=== PATIENT | female | born 1955 | race Hispanic/Latino ===

== ENCOUNTER 2016-08-08 08:11 | Day surgery (SDC) | payer MEDICAID ==
[2016-08-06 10:34] VITALS: BMI 22.6
[2016-08-08 08:48] LABS: BLOOD UREA NITROGEN 16 mg/dL (7-21); CARBON DIOXIDE 27 mmol/L (21-33); CHLORIDE 100 mmol/L (95-110); GFR AFRICAN-AMERICAN > 60; GLUCOSE,RANDOM 100 mg/dL (70-110); POTASSIUM 3.8 mmol/L (3.6-5.0); SODIUM 138 mmol/L (132-148)
[2016-08-08 08:51] LABS: INR 1.06 (0.93-1.08); PARTIAL THROMBOPLASTIN TIME 27.3 Seconds (23.7-30.8)
--- NOTE | 2016-08-08 08:57 | CP.SDSHP ---
Same Day Surgery H & P - History Proposed Procedure: ct guided Bx of abdominal lymph node. Pre-Op Diagnosis: inflamed lymph node/hx of colonca s/p rescetion. - Previous Medical/Surgical History Misc: Anemia Previous Surgical History: colon resection. - Allergies Allergies: Allergies epinephrine Allergy (Intermediate, Verified 08/06/16 10:34) PALPITATIONS PALPITATIONS caffeine Allergy (Verified 08/06/16 10:34) PALPITATIONS IV CONTRAST Allergy (Severe, Uncoded 08/06/16 10:34) SHORTNESS OF BREATH PALPITATIONS CAF Allergy (Intermediate, Uncoded 08/06/16 10:34) PALPITATIONS - Physical Exam General Appearance: WNL. Mental Status: Alert & Oriented x3 Neuro: WNL Heart: WNL Lungs: WNL GI: WNL - Impression Impression: SUSPICIOUS ABDOMINAL LYMPH NODE /hx of colon ca s/p resection. - Date & Time Date: 08/08/16 Time: 08:57 Short Stay Discharge - Short Stay Discharge Admitting Diagnosis/Reason for Visit: CO CA C18.6/R59.0 Disposition: HOME/ ROUTINE
[2016-08-08 09:13] LABS: BASO # 0.05 K/mm3 (0.0-2.0); EOS # 0.1 (0.0-0.7); EOS % 2.7 % (1.5-5.0); GRAN # 3.08 (1.4-6.5); GRAN % 58.7 % (50.0-68.0); LYMPH # 1.6 (1.2-3.4); LYMPH % 30.2 % (22.0-35.0); MEAN CELL VOLUME 86.3 fL (80.0-105.0); MEAN CORPUSCULAR HEMOGLOBIN 30.3 pg (25.0-35.0); MEAN CORPUSCULAR HGB CONC 35.1 g/dl (31.0-37.0); MEAN PLATELET VOLUME 10.6 fl (7.0-11.0); MONO # 0.4 (0.1-0.6); MONO % 7.4 % (1.0-6.0); PLATELET COUNT 173 10^3/uL (120.0-450.0); RED CELL DISTRIBUTION WIDTH 16.7 % (11.5-14.5); WHITE BLOOD COUNT 5.2 10^3/ul (4.5-11.0)
[2016-08-08 09:15] LABS: ADD MANUAL DIFF? NO; HEMATOCRIT 40.2 % (36.0-48.0)
[2016-08-08] MEDS ORDERED: Midazolam 2 MG/2 ML VIAL ONE ×2 (09:47→10:30)
[2016-08-08] MEDS ORDERED: Sodium Chloride 0.45% 1,000 ML IV SCH (10:45)
[2016-08-08] MEDS ORDERED: Oxycodone/Acetaminophen 5/325 mg Tab PO PRN (10:45)
--- NOTE | 2016-08-08 14:03 | CT ---
PROCEDURE: CT guided left retroperitoneal lymph node biopsy. HISTORY: Colon carcinoma. Enlarged retroperitoneal lymph nodes. Evaluate for metastatic disease. PHYSICIAN(S): Shabbir Hackett MD. TECHNIQUE: The relative risks and indications of the procedure were explained to the patient and consent obtained. The patient was placed prone on the CT scanner and preliminary images through the mid abdomen obtained. Conscious sedation and monitoring were provided throughout the procedure by a nurse. There is a 2.7 cm enlarged left retroperitoneal lymph node just below the renal vein. A left posterior oblique approach was selected and the area prepped and draped in the usual sterile fashion. 1% Xylocaine was used to anesthetize the skin and soft tissues. A 17-gauge guiding needle was advanced into the 2.7 cm left retroperitoneal lymph node. Its position was confirmed with CT. Using coaxial technique, multiple core biopsies were obtained. The postprocedure images show no evidence of significant hemorrhage. IMPRESSION: 1. CT-guided left retroperitoneal lymph node biopsy as described above.
[2016-08-08 16:16] VITALS: RESP 18; O2SAT 98
[2016-08-08 16:21] VITALS: BP 130/73; PULSE 80; TEMP 98
== END 2016-08-08 14:00 | disposition home or self-care (01) ==
LOC: SDS 08:11
PROVIDERS: ATTEND Radiology Vascular & Interventional Radiology
DX: C77.2 Secondary and unspecified malignant neoplasm of intra-abdominal lymph nodes (principal); D64.9 Anemia, unspecified; Z90.49 Acquired absence of other specified parts of digestive tract; Z91.041 Radiographic dye allergy status; Z88.8 Allergy status to other drugs, medicaments and biological substances; Z91.018 Allergy to other foods; Z85.038 Personal history of other malignant neoplasm of large intestine
CPT/HCPCS: 36415; 49180; 77012; 80048; 85025; 85610; 85730; 88305; J2250; J2405; J3010; J7030

== ENCOUNTER 2016-09-14 12:53 | Inpatient (IN) | payer MEDICAID ==
[2016-09-14 13:03] VITALS: BMI 23.1
[2016-09-14] MEDS ORDERED: Iohexol 240 (50 ml) ONE (13:42)
--- NOTE | 2016-09-14 13:46 | ED PDOC ---
Arrival/HPI - General Chief Complaint: GI Problem Time Seen by Provider: 09/14/16 13:38 Historian: Patient - History of Present Illness Narrative History of Present Illness (Text): 09/14/16 13:44 Patient is a 61 year old female whose past medical history includes IBS and colon CA s/p colectomy with recent PET scan that shows retroperitoneal lymphadenopathy "suggestive of new metastasis" who presents to the emergency department with intermittent bilateral buttock pain for the past few weeks and constipation. She reports that she was scheduled for port placement for chemotherapy this week but has delayed it secondary to getting a second opinion at [facility]. She states pain radiates down the lower extremities. She reports that her PMD has given her muscle relaxants as he believes it is related to sciatica. She denies weakness, numbness or tingling. Denies trauma. She reports that she is concerned her constipation is related to her colon cancer. She reports that she had a small bowel movement this morning but is concerned due to the size and her hx. 09/14/16 14:16 Time/Duration: > week Symptom Onset: Gradual Symptom Course: Intermittent Modifying Factors (Text): None Associated Symptoms (Text): None Past Medical History - Provider Review Nursing Documentation Reviewed: Yes - Past History Past History: No Previous - Infectious Disease Hx of Infectious Diseases: None - Tetanus Immunization Tetanus Immunization: Unknown - Reproductive Menopause: Yes - Cardiac Hx Pacemaker: No - Pulmonary Hx Respiratory Disorders: No - Neurological Hx Paralysis: No - HEENT Hx HEENT Disorder: No - Renal Hx Renal Disorder: No - Endocrine/Metabolic Hx Endocrine Disorders: No - Hematological/Oncological Hx Blood Transfusions: No Hx Blood Transfusion Reaction: No - Integumentary Other/Comment: Cellutitis - Musculoskeletal/Rheumatological Hx Musculoskeletal Disorders: No - Gastrointestinal Other/Comment: Gastrointestinal Hemorrhage, colon ca + biopsy for retroperitoneal lymph node - Genitourinary/Gynecological Hx Genitourinary Disorders: No - Psychiatric Hx Emotional Abuse: No Hx Physical Abuse: No Hx Substance Use: No - Past Surgical History Past Surgical History: No Previous - Surgical History Other/Comment: lesion remove from chest wall - Anesthesia Hx Anesthesia Reactions: No Hx Malignant Hyperthermia: No - Suicidal Assessment Feels Threatened In Home Enviroment: No Family/Social History - Physician Review Nursing Documentation Reviewed: Yes Family/Social History: Unknown Family HX Smoking Status: Never Smoked Hx Alcohol Use: No Hx Substance Use: No Hx Substance Use Treatment: No Allergies/Home Meds Allergies/Adverse Reactions: Allergies epinephrine Allergy (Intermediate, Verified 08/06/16 10:34) PALPITATIONS PALPITATIONS caffeine Allergy (Verified 08/06/16 10:34) PALPITATIONS IV CONTRAST Allergy (Severe, Uncoded 08/06/16 10:34) SHORTNESS OF BREATH PALPITATIONS CAF Allergy (Intermediate, Uncoded 08/06/16 10:34) PALPITATIONS Home Medications: Home Meds Medication Instructions Recorded Confirmed Famotidine [Pepcid] 20 mg PO DAILY PRN 08/06/16 09/14/16 Naproxen Sodium [Aleve] 220 mg PO PRN PRN 08/06/16 09/14/16 Review of Systems - Review of Systems Constitutional: absent: Fatigue, Fevers Eyes: absent: Vision Changes ENT: absent: Hearing Changes Respiratory: absent: SOB Cardiovascular: absent: Chest Pain Gastrointestinal: Stool Changes, Constipation. absent: Abdominal Pain, Diarrhea , Nausea, Vomiting Genitourinary Female: absent: Dysuria, Frequency, Hematuria, Urine Output Changes Musculoskeletal: Other (Buttock pain radiating to lower extremities b/l). absent: Back Pain Skin: absent: Rash Neurological: absent: Headache Endocrine: absent: Diaphoresis Psychiatric: absent: Depression Physical Exam Vital Signs Reviewed: Yes Vital Signs Temp Pulse Resp BP Pulse Ox 09/14/16 23:00 75 151/69 H 97 09/14/16 21:20 78 18 143/71 96 09/14/16 16:52 82 18 148/79 96 09/14/16 12:54 98.7 F 90 18 156/86 H 98 Temperature: Afebrile Blood Pressure: Normal Pulse: Regular Respiratory Rate: Normal Appearance: Positive for: Well-Appearing, Non-Toxic, Comfortable Pain Distress: None Mental Status: Positive for: Alert and Oriented X 3 - Systems Exam Head: Present: Atraumatic, Normocephalic Pupils: Present: PERRL Extroacular Muscles: Present: EOMI Conjunctiva: Present: Normal Mouth: Present: Moist Mucous Membranes Neck: Present: Normal Range of Motion Respiratory/Chest: Present: Clear to Auscultation, Good Air Exchange. No: Respiratory Distress, Accessory Muscle Use Cardiovascular: Present: Regular Rate and Rhythm, Normal S1, S2. No: Murmurs Abdomen: Present: Normal Bowel Sounds. No: Tenderness, Distention, Peritoneal Signs Back: Present: Normal Inspection. No: CVA Tenderness Upper Extremity: Present: Normal Inspection. No: Cyanosis, Edema Lower Extremity: Present: Normal Inspection, Other (point tenderness in buttock and along lateral thigh b/l. positive straight leg raise.). No: Edema Neurological: Present: GCS=15, CN II-XII Intact, Speech Normal, Gait Normal Skin: Present: Warm, Dry, Normal Color. No: Rashes Psychiatric: Present: Alert, Oriented x 3, Normal Insight, Normal Concentration Medical Decision Making ED Course and Treatment: Impression: Patient is a 61 year old female whose past medical history includes IBS and colon CA who presents to the emergency department with intermittent bilateral buttock pain for the past few weeks and constipation. Exam shows no neuro deficit and presentation consistent with sciatica. Constipation unlikely due to SBO but due to hx will eval. Plan: -- CT Abdomen/Pelvis -- Labs -- Reassess and disposition Prior Visits: Notes and results from previous visits were reviewed. Patient last seen in the ED on 05/31/14 for abdominal pain and admitted for surgery EXAM: CT Abdomen and Pelvis With Intravenous Contrast FINDINGS: Lower thorax: By basilar scarring is present. No consolidative disease. ABDOMEN: Liver: There is a simple hepatic cyst measuring The gallbladder is normal. Kidneys and ureters: Bilateral right more than left pelvic caliectasis and hydroureter probably secondary to distended urinary bladder. Kidneys otherwise unremarkable. Stomach and bowel: Small to moderate amount of partially formed stool throughout the colon likely within physiologic limits. Bowel loops appear within normal limits, no signs of wall thickening, mucosal edema, or bowel distention. There are multiple surgical clips and anastomotic sutures consistent with previous sigmoid resection and reanastomosis. PELVIS: Bladder: The bladder is moderately distended. ABDOMEN and PELVIS: Bones/joints: Multiple lesions are seen involving the patient's sacrum suspicious for metastatic disease. The largest component of the lesion is 3.3 cm image 1 of series #2. No acute fracture. No dislocation. Soft tissues: There is a midline laparatomy scar in the subcutaneous tissues. Bowel loops appear within normal limits, no signs of wall thickening, mucosal edema, or bowel distention. Vasculature: The aorta demonstrates moderate atherosclerotic calcification. IVC is normal. No abdominal aortic aneurysm. Lymph nodes: A number of abnormal para-aortic nodes are seen the largest at the level of the left renal hilum is 1.8 cm. IMPRESSION: Abnormal retroperitoneal adenopathy suspicious for metastasis. Size of adenopathy stable. Lytic lesion of the right sacrum as described consistent with metastasis. This lesion is new compared to prior exam. Mild bilateral right more than left pelvic caliectasis secondary to distended urinary bladder. Primary source of neoplasm is not apparent on this examination. Simple hepatic cyst. Dictated and Authenticated by: Tip Souza MD 09/14/2016 5:34 PM Eastern Time ([place] & [place]) 09/14/16 18:[address] of [address] results. She was instructed to take motrin (given rx) and valium (has at home) or flexeril (has at home) for sciatia. 09/14/16 18:23 Prior to discharge, patient began complaining of urinary fullness. She reported that she had been urinating "all day." After multiple episodes of voiding, 700 cc's, post void residual was returned with straight cath. Due to bony lesions in sacrum found on CT combined with acute urinary retention, I am concerned for spinal cord involvement. Will get MRI, urinalysis and urine culture. 09/14/16 18:41 UA negative except for blood (expected post minor). Spoke to oncologist Dr. Hendricks who reports that with her retroperitoneal mets he would also be concerned for cord compression. Agrees with MRI and neuro consult. 09/14/16 22:55 MRI shows large focus of abnormal signal intensity within the sacrum to the right of midline with an extensive soft tissue component. This abnormal focus involved the right sacral nerve roots and is extending into the left. Spoke to radiologist Dr. Marlee Antoine at [facility] about MRI. Cannot identify any areas of spinal cord compression on lumbar spine. Reports that the sacral mass is involving the right sacral nerve roots. 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 Hendricks and Dr. Moya (neurology) 09/14/16 23:06 Minor placed 09/14/16 23:[address] Hendricks and he agrees that she needs admission. Consult placed to radiation oncology. - Lab Interpretations Lab Results: 09/14/16 13:50 09/14/16 13:50 Lab Results 09/14/16 13:50: Sodium 135, Potassium 4.0, Chloride 99, Carbon Dioxide 27, Anion Gap 13, BUN 15, Creatinine 0.6, Est GFR ( Amer) > 60, Est GFR (Non- Af Amer) > 60, Random Glucose 100, Calcium 10.0, Total Bilirubin 0.7, AST 31, ALT 36, Alkaline Phosphatase 145 H, Total Protein 8.4 H, Albumin 4.2, Globulin 4.1, Albumin/Globulin Ratio 1.0 L, Lipase 119 09/14/16 13:50: WBC 8.8 D, RBC 4.47, Hgb 12.9, Hct 37.2, MCV 83.2, MCH 28.9, MCHC 34.7, RDW 14.0, Plt Count 204, MPV 10.9, Gran % 77.8 H, Lymph % (Auto) 14.0 L, [place] % (Auto) 7.1 H, Eos % (Auto) 0.6 L, Baso % (Auto) 0.5, Gran # 6.82 H, Lymph # 1.2, [place] # 0.6, Eos # 0.1, Baso # 0.04 - RAD Interpretation Radiology Orders: 09/14/16 14:00 ABD & PELVIS PO CONTRAST ONLY [CT] Stat - Medication Orders Current Medication Orders: Morphine Sulfate (Morphine) 4 mg IVP Q4H PRN PRN Reason: Pain, moderate (4-7) Discontinued Medications Alprazolam (Xanax) 0.5 mg PO STAT STA PRN Reason: Protocol Stop: 09/14/16 18:49 Last Admin: 09/14/16 19:05 Dose: 0.5 mg Barium Sulfate (Readi-Cat 2) Confirm Administered Dose 900 ml PO .STK-MED ONE Stop: 09/14/16 13:52 Diazepam (Valium) 5 mg PO STAT STA PRN Reason: Protocol Stop: 09/14/16 23:30 Iohexol (Omnipaque 240 (50 Ml)) Confirm Administered Dose 50 ml .ROUTE .STK-MED ONE Stop: 09/14/16 13:43 Iohexol (Omnipaque 350 100 Ml) Confirm Administered Dose 350 mg .ROUTE .STK-MED ONE Stop: 09/14/16 15:06 Ketorolac Tromethamine (Toradol) 30 mg IVP STAT STA Stop: 09/14/16 16:40 Last Admin: 09/14/16 16:44 Dose: 30 mg Re-Assess: NAVJOT Pain Assessment Document 09/14/16 17:44 SRE (Rec: 09/14/16 19:06 SRE [id number]) Pain Reassessment Is this a pain reassessment? Yes Sleep Is patient sleeping during reassessment? No Presence of Pain Presence of Pain Yes Pain Scale Used Pain Scale Used Numeric Lorazepam (Ativan) 0.5 mg IVP STAT STA PRN Reason: Protocol Stop: 09/14/16 20:06 Last Admin: 09/14/16 21:07 Dose: Not Given Non-Admin Reason: Patient Refused Lorazepam (Ativan) Confirm Administered Dose 2 mg .ROUTE .STK-MED ONE Stop: 09/14/16 20:11 Last Admin: 09/14/16 21:06 Dose: Not Given Non-Admin Reason: Patient Refused Morphine Sulfate (Morphine) 4 mg IVP STAT STA Stop: 09/14/16 18:43 Last Admin: 09/14/16 19:05 Dose: 4 mg Morphine Sulfate (Morphine) 4 mg IVP STAT STA Stop: 09/14/16 20:06 Last Admin: 09/14/16 20:21 Dose: 4 mg ED OBSERVATION Date of observation admission: 09/14/16 Time of observation admission: 15:31 - Observation admission statement Patient is being placed in observation because:: constipation - Goals of Observation Goals of observation are:: pending serial abdominal exams - Progress Note Progress Note: 09/14/16 15:31 Patient resting, no new complaints 09/14/16 17:30 Patient resting, no new complaints 09/14/16 19:30 Patient resting, no new complaints 09/14/16 21:30 Patient resting, no new complaints - Scribe Statement The provider has reviewed the documentation as recorded by the Samson Rodriguez Provider Scribe Attestation: All medical record entries made by the Scribe were at my direction and personally dictated by me. I have reviewed the chart and agree that the record accurately reflects my personal performance of the history, physical exam, medical decision making, and the department course for this patient. I have also personally directed, reviewed, and agree with the discharge instructions and disposition. Disposition/Present on Arrival - Present on Arrival Any Indicators Present on Arrival: No History of DVT/PE: No History of Uncontrolled Diabetes: No Urinary Catheter: No History of Decub. Ulcer: No History Surgical Site Infection Following: None - Disposition Have Diagnosis and Disposition been Completed?: Yes Diagnosis: Constipation, Sciatica, Metastasis from colon cancer, Urinary retention Disposition: HOSPITALIZED Disposition Time: 15:31 Patient Plan: Admission Patient Problems: Current Active Problems Problem Status Onset Constipation Acute Sciatica Acute Metastasis from colon cancer Acute Urinary retention Acute Condition: FAIR
[2016-09-14] MEDS ORDERED: Barium Sulfate Susp 2.1% w/v, 2.0% w/w 450 mL Bottle PO ONE (13:51)
[2016-09-14 14:22] LABS: ALKALINE PHOSPHATASE 145 U/L (38-133); ALT/SGPT 36 U/L (7-56); AST/SGOT 31 U/L (15-39); BILIRUBIN,TOTAL 0.7 mg/dL (0.2-1.3); BLOOD UREA NITROGEN 15 mg/dL (7-21); CARBON DIOXIDE 27 mmol/L (21-33); CHLORIDE 99 mmol/L (98-107); GFR AFRICAN-AMERICAN > 60; GLUCOSE,RANDOM 100 mg/dL (70-110); LIPASE 119 U/L (23-300); SODIUM 135 mmol/L (132-148); TOTAL PROTEIN 8.4 g/dL (5.8-8.3)
[2016-09-14 14:44] LABS: BASO # 0.04 K/mm3 (0.0-2.0); BASO % 0.5 % (0.0-3.0); EOS # 0.1 (0.0-0.7); EOS % 0.6 % (1.5-5.0); GRAN # 6.82 (1.4-6.5); GRAN % 77.8 % (50.0-68.0); LYMPH # 1.2 (1.2-3.4); MEAN CELL VOLUME 83.2 fL (80.0-105.0); MEAN CORPUSCULAR HEMOGLOBIN 28.9 pg (25.0-35.0); MEAN CORPUSCULAR HGB CONC 34.7 g/dl (31.0-37.0); MEAN PLATELET VOLUME 10.9 fl (7.0-11.0); MONO # 0.6 (0.1-0.6); MONO % 7.1 % (1.0-6.0); PLATELET COUNT 204 10^3/uL (120.0-450.0); WHITE BLOOD COUNT 8.8 10^3/ul (4.5-11.0)
[2016-09-14 14:47] LABS: ADD MANUAL DIFF? NO; HEMATOCRIT 37.2 % (36.0-48.0)
[2016-09-14] MEDS ORDERED: Iohexol 350 MG/100 ML VIAL ONE (15:05)
[2016-09-14 18:37] LABS: URINE BILIRUBIN NEGATIVE (NEGATIVE); URINE BLOOD SMALL (NEGATIVE); URINE GLUCOSE (UA) NEGATIVE (NEGATIVE); URINE KETONE NEGATIVE (NEGATIVE); URINE LEUKOCYTE ESTERASE NEGATIVE Leu/uL (NEGATIVE); URINE PROTEIN NEGATIVE mg/dL (<30 mg/dL); URINE UROBILINOGEN 0.2 E.U./dL (<1 E.U./dL)
[2016-09-14 18:41] LABS: URINE APPEARANCE CLEAR (CLEAR); URINE COLOR LIGHT YELLOW (YELLOW)
[2016-09-14] MEDS ORDERED: Morphine 4 mg/ml ISec IVP STA ×2 (18:42→20:05)
[2016-09-14 18:45] LABS: URINE BACTERIA FEW (NEG); URINE EPITHELIAL CELLS 0 - 2 /hpf (0-5); URINE RBC 0 - 2 /hpf (0-2); URINE WBC 0 - 2 /hpf (0-6)
--- NOTE | 2016-09-14 22:43 | MRI ---
EXAM: MR Pelvis Without Intravenous Contrast CLINICAL HISTORY: 61 years old, female; Pain; Other: Sacrum area; Patient HX: Lower back pain all the way to the sacrum. Thang hahn; Additional info: Attn to sacrum, urinary retention, cancer TECHNIQUE: Multiplanar magnetic resonance images of the pelvis without intravenous contrast. COMPARISON: CT - ABD PELVIS PO CONTRAST ONLY 09/14/2016 5:00:48 PM FINDINGS: Bowel: No obstruction. No mucosal thickening. Bones/joints: A large focus of abnormal signal intensity is identified within the sacrum, to the right of midline with an extensive soft tissue component. This abnormal focus involves the right sacral nerve roots, and is extending into the left. Without intravenous contrast, exact measurements cannot be ascertained, however the focus of abnormal signal intensities measures approximately 6.7 x 5.5 cm (medial to lateral by cranial to caudal dimension). This focus demonstrates decreased signal intensity on T1-weighted sequences, and increased signal intensity on T2-weighted sequences, findings consistent with a malignant lesion for which intravenous contrast is needed for confirmation. Soft tissues: As above. Vasculature: As above. Lymph nodes: Multiple pathologically enlarged lymph nodes are identified within the deep pelvis, only partially visualized on this examination. IMPRESSION: Findings within the right hemipelvis, involving the inferior lateral portion of the sacrum, extending into the sacroiliac joint space, for which a malignancy is suspected. Intravenous contrast is suggested for confirmation, if the patient is clinically able. These findings are consistent with the earlier findings on the CT examination, performed on the same day.
--- NOTE | 2016-09-14 23:39 | MRI ---
EXAM: MR Lumbar Spine Without Intravenous Contrast CLINICAL HISTORY: 61 years old, female; Pain; Low back pain; Patient HX: Lower back pain all the way to the sacrum. Thang hahn; Additional info: Urinary retention, cancer TECHNIQUE: Magnetic resonance images of the lumbar spine without intravenous contrast in multiple planes. COMPARISON: No relevant prior studies available. FINDINGS: Vertebrae: An heterogeneous appearance is identified within the bone marrow, for which dedicated contrast-enhanced imaging is recommended. No compression fractures are detected. Again identified within the sacrum, incompletely evaluated on the current examination is the (likely) malignant lesion to the right of midline. Spinal cord: No abnormal signal intensity is identified within the spinal cord or within the spinal canal the lumbar spine. Soft tissues: Symmetric DISCS/SPINAL CANAL/NEURAL FORAMINA: Multiple broad-based disc protrusions are identified throughout the visualized lumbar spine, without significant mass effect on either the spinal canal or bilateral neural foramen. IMPRESSION: Multilevel degenerative disease, without significant mass effect on either the spinal canal or bilateral neural foramen of the lumbar spine. No abnormal signal intensity is identified within the spinal canal of the lumbar spine, as detailed above. Contrast-enhanced imaging would provide additional information, if the patient is clinically able.
[2016-09-15] MEDS: Morphine 4 mg/ml ISec IVP PRN ×3 (03:15→19:05)
--- NOTE | 2016-09-15 09:13 | CT ---
PROCEDURE: CT Abdomen and Pelvis without intravenous contrast HISTORY: colon cancer, with hemicolectomy, with constipatio COMPARISON: CT-guided biopsy dated 07/13/2016. TECHNIQUE: Technique. Contrast Dose: Radiation dose: Total exam DLP = 425 mGy-cm. This CT exam was performed using one or more of the following dose reduction techniques: Automated exposure control, adjustment of the mA and/or kV according to patient size, and/or use of iterative reconstruction technique. FINDINGS: LOWER THORAX: Unremarkable. LIVER: Simple hepatic cyst.. No gross lesion or ductal dilatation. GALLBLADDER AND BILE DUCTS: Unremarkable. PANCREAS: Unremarkable. No gross lesion or ductal dilatation. SPLEEN: Unremarkable. ADRENALS: Unremarkable. No mass. KIDNEYS AND URETERS: Unremarkable. No hydronephrosis. No solid mass. VASCULATURE: Unremarkable. No aortic aneurysm. BOWEL: Unremarkable. No obstruction. No gross mural thickening. APPENDIX: Unremarkable. Normal appendix. PERITONEUM: Unremarkable. No free fluid. No free air. LYMPH NODES: Abnormal retroperitoneal lymphadenopathy suggestive of metastatic disease. BLADDER: Unremarkable. REPRODUCTIVE: Unremarkable. BONES: Lytic lesion in the right alex sacrum compatible with metastasis. This is new since prior examination. OTHER FINDINGS: None. IMPRESSION: Abnormal retroperitoneal lymphadenopathy suspicious for metastatic disease. Lytic lesion in the right alex sacrum.
[2016-09-15] MEDS: Dexamethasone 4 mg/1 ml IVP SCH (21:53)
[2016-09-16] MEDS: Morphine 4 mg/ml ISec IVP PRN ×4 (00:38→21:35)
--- NOTE | 2016-09-16 01:33 | HP ---
The patient was admitted through the Emergency Room last night on 09/14/2016. The patient came to [facility] Emergency Room with chief complaint of progressively worsening constipation and also worsening pain that is in the form of sciatica-like pain radiating down both lower extremities, right greater than the left over the last 2 weeks. She had received muscle relaxants as an outpatient because she has a history of sciatica in the past and this was thought it could be related to that while we were getmin ng ready for her to get the PET/CT scan done which was not approved; it took a long time for us to ge t the PET/CT scan done. Between the CAT scan and the biopsy, there was a gap of almost a month befor e we could get her approved for the PET scan. The patient denies any weakness, numbness or tingling. Denies trauma. She was doing a lot of work including bending and lifting because of her father's r ecent 90th birthday. She was doing a lot of work physically. In addition to that, the patient says that she does not recall having slipped or hurt her back recently over the last 2 to 3 weeks. The kim valentin has been having increasing constipation which is of concern to her. She is also concerned abou t the size of the stool with a history of colon cancer. She was worried whether she was getting obst ructed. PAST MEDICAL HISTORY: The patient has a diagnosis of colon cancer stage III, diagnosed in 2014 when she had presented with increasing abdominal pain, found to have an obstructive lesion in the rectosig moid and underwent resection. After the resection, the patient was advised very strongly to get syst emic chemotherapy. The patient unfortunately was negligent in following through. ____ approached he r a few times. The patient was not seen until recently in 2017. The patient had gone to her primary medical doctor, who had then done blood tests on her including CEA, which was significantly elevated , which prompted us to do repeat scans. The patient at that time was not allowed to get a PET/CT sca n despite the elevated CEA. She went ahead and did a CAT scan of the chest, abdomen and pelvis, whic h showed retroperitoneal disease. The patient had a CT-guided biopsy of the retroperitoneal lymph no de in the left periaortic area, which was strongly positive for metastatic adenocarcinoma consistent with colonic primary. KRAS testing showed the patient had KRAS mutation. She was not a candidate fo r any of the KRAS directed monoclonal antibodies. The patient's case was presented at tumor board a nd recommendation was systemic chemotherapy with FOLFOX-6 plus/minus Avastin. We are waiting to have a port put in and start systemic therapy, but the patient wanted to wait in view of the anticipation for her father's 90th birthday. In the meantime, her buttock pain got worse. The most recent PET/CT scan, which was done less than 10 days ago showed that she has metastatic disease which lights up on the PET/CT scan. In addition to that, the patient has disease involving the sacral segments on the right side more than the left and pinching of the nerve, which could be accounting for some of the sy mptoms the patient currently is having which would cause cauda equina syndrome. The patient in the E R was noted to have a grossly distended urinary bladder and had to have a Salazar catheter put in and l eft in place as there was more than 600 mL of urine in the container. Since the bladder was distende d, could have also aggravated her constipation but subsequent to that, she did pass her bowel on the loose side. The patient also has a history of IBS by history and she is to follow up with GI, Dr. Ra del rosario and then Dr. Kline in the ____. The patient has history of anxiety as well. REVIEW OF SYSTEMS: In a 14 point review of systems, everything is negative except for the HPI as dic tated. MEDICATIONS: The patient is currently not on any medications of significance except famotidine for h er heartburn 20 mg daily and naproxen as needed for her sciatica-like pain. She was given Flexeril, but she stopped taking it. ALLERGIES: THE PATIENT HAS ALLERGIES TO EPINEPHRINE AND INTRAVENOUS CONTRAST WITH SEVERE SHORTNESS O F BREATH AND PALPITATIONS. PHYSICAL EXAMINATION: GENERAL: The patient is examined in bed. VITAL SIGNS: Stable. T-max is 98.4, pulse is 90, respirations 18, blood pressure is 156/86 and puls e ox is 98%. HEENT: Head is normocephalic and atraumatic. Conjunctivae pale. Sclerae are anicteric. Pupils are equally reactive to light and accommodation. Examination of the oropharynx reveals no oropharyngeal lesions. Tongue is moist. There are no ulcerations. NECK: Supple. There is no adenopathy. LUNGS: Clear to percussion and auscultation. CARDIOVASCULAR: Reveals PMI to be in the 5th intercostal space. S1 and S2 are normal. No gallop or murmur is heard. ABDOMEN: Soft and nontender. No rebound, rigidity or guarding is noted. Definitely, the patient mccabe s a distention of the suprapubic area where the bladder is, with some suprapubic discomfort. BACK: The patient has no CVA tenderness. The patient complaining of sciatica-like pain in the lower back over the sacral region radiating down her buttock. She describes the pain as somebody sticking a hot poker into her back and pain on a scale of 0-10 when not receiving narcotics is at least a 9. Upper extremities reveals no cyanosis, clubbing or edema. Lower extremities, as mentioned, the antwon ent has point tenderness on the buttock on the lateral aspect of the thigh. Positive straight leg ra ising test without any edema. NEUROLOGIC: Higher functions are normal. No focal deficits are discernible. SKIN: Turgor is normal. No skin lesions are noted. PSYCHIATRIC: The patient is awake, alert and oriented and normal concentration. ASSESSMENT NOTES AND PLAN: I discussed the findings with the patient and her brother in great detail . I spoke to her mom also visiting her today. I reviewed the x-ray reports with the Emergency Room physician last night when the patient was admitted. The patient had an MRI of the lumbar spine and o f the whole end of the sacral area and that is where significant findings were noted. The pelvic MRI was the most significant which shows a rather significant mass in the sacral area where there is a l arge focus of abnormal signal intensity within the sacrum to the right of midline with extensive ____ This abnormal focus involves the right sacral nerve root and extending into the left. Measurements cannot be made because of the lack of contrast, but it measures 6.7 x 5.5 cm. The focus demonstrate s decreased signal on T1 weighted sequences. These findings are consistent with metastatic disease. Multiple enlarged lymph nodes are seen in the deep pelvis only partially visualized on this exam. T he patient also had MRI of the lumbar spine to make sure she was not having actual cord compression a nd the MRI of the lumbar spine showed the following: She had a heterogeneous appearance identified w ith dedicated contrast. No compression fractures are noted. Again identified within the sacrum is t his mass which is malignant. Spinal cord: No abnormal signal densities identified in the spinal cord or the spinal canal in the lumbar spine. Multiple broadbased disk protrusions were identified throu ghout the visualized lumbar spine without significant effect on the spinal canal or the bilateral keri ral foramina. The patient had a CAT scan of the abdomen and pelvis to look at other organs in view of the metastatic colon cancer and that revealed the following: The patient has abnormal retroperitone al lymphadenopathy suspicious for metastatic disease and a lytic lesion of the right alex-sacrum. Th e patient has a small cyst in the liver without any gross dilatation of the ducts. The cyst did not light up on the PET/CT scan so I am assuming it is benign. ASSESSMENT NOTES AND PLAN: The patient has metastatic stage IV carcinoma of the colon, comes in now with increasing obstipation, urinary retention with overflow probably related to cauda equina syndrom e causing her to have retention, in the background of having recently discovered KRAS mutated and rec urrent metastatic adenocarcinoma. PLAN: I discussed in detail with the patient and her brother who was there. I was not aware the antwon ent was trying to seek a second opinion. Otherwise, I would have set ____ motion. I told her at thi s time, we have to get started without delay as to what needed to be done, including local radiation to alleviate her symptoms and then get started on systemic therapy. I told her that really not many options available at this time. The patient could be a candidate for ____ down the road. Meanwhile, I am going to have a specimen sent to [facility] to look for any actionable mutation of gen es. In the meantime, we are going to start her on PPI. She is going to get a short course of IV Dec adron. We are going to see if we can assess her for stool softeners otherwise and put her on MiraLAX . We are going to get GI evaluation to see Dr. Null. XRT consultation has also been obtained wi Dr. Soliman ____, the radiation oncologist who is going to see her on Saturday and set her up for rad iation on Saturday as well. Neuro consultation with Dr. Disla and Dr. Moya was requested yesterday and hopefully the patient will be seen over the weekend to give us some further guidelines. The antwon ent also is going to have a port inserted as soon as it is feasible. I put a consult in for Dr. Shabbir Hackett. She had a port scheduled the earlier part of this week, but patient has chosen to cancel it. Plan is to give the patient systemic chemotherapy while in the hospital while getting radiation with FOLFOX-6 and Avastin. Routine post exam instructions have been given to the patient and hopefully wi ll get started with the treatments over the next 48-72 hours. In the meantime, I will continue to mo nitor her carefully. Kedar Hendricks MD cc: [id number] TT: 09/16/2016 00:55:57 09/16/2016 00:31:46
[2016-09-16 07:08] LABS: ADD MANUAL DIFF? NO
[2016-09-16 07:22] LABS: ALKALINE PHOSPHATASE 229 U/L (38-133); ALT/SGPT 33 U/L (7-56); AST/SGOT 41 U/L (15-39); BILIRUBIN,TOTAL 0.9 mg/dL (0.2-1.3); BLOOD UREA NITROGEN 13 mg/dL (7-21); CALCIUM 9.7 mg/dL (8.4-10.5); CARBON DIOXIDE 29 mmol/L (21-33); CHLORIDE 100 mmol/L (98-107); GFR AFRICAN-AMERICAN > 60; GLUCOSE,RANDOM 128 mg/dL (70-110); POTASSIUM 4.3 mmol/L (3.6-5.0); SODIUM 139 mmol/L (132-148); TOTAL PROTEIN 7.8 g/dL (5.8-8.3)
[2016-09-16 09:12] LABS: BASO # 0.01 K/mm3 (0.0-2.0); BASO % 0.2 % (0.0-3.0); GRAN # 5.27 (1.4-6.5); GRAN % 81.4 % (50.0-68.0); HEMATOCRIT 37.4 % (36.0-48.0); LYMPH # 0.8 (1.2-3.4); LYMPH % 12.1 % (22.0-35.0); MEAN CELL VOLUME 87.4 fL (80.0-105.0); MEAN CORPUSCULAR HEMOGLOBIN 29.7 pg (25.0-35.0); MEAN PLATELET VOLUME 9.6 fl (7.0-11.0); MONO # 0.4 (0.1-0.6); MONO % 6.3 % (1.0-6.0); RED CELL DISTRIBUTION WIDTH 14.5 % (11.5-14.5); WHITE BLOOD COUNT 6.5 10^3/ul (4.5-11.0)
[2016-09-16 09:30] LABS: PLATELET COUNT 132 10^3/uL (120.0-450.0)
[2016-09-16] MEDS: Dexamethasone 4 mg/1 ml IVP SCH ×2 (09:35→21:35)
[2016-09-16] MEDS: POLYETHYLENE GLYCOL 3350 17 GM/Dose PACKET PO SCH ×2 (13:43→17:00)
--- NOTE | 2016-09-16 18:15 | PN ---
DATE: 09/16/2016 SUBJECTIVE: The patient was seen and evaluated earlier today. The patient did not have any bowel movements. The patient has been on MiraLax. PHYSICAL EXAMINATION: VITAL SIGNS: Temperature is 98, blood pressure is 122/77, pulse 79, respirations 18. HEENT: Atraumatic, anicteric. NECK: Supple. HEART: S1, S2 heard. LUNGS: Bilateral air entry present. ABDOMEN: Soft. There is no mass palpable. No tenderness. EXTREMITIES: No edema. LABORATORY DATA: Hemoglobin 12.7, hematocrit 37.4, WBC 6.5, platelets 132. Chemistries: BUN is 13, creatinine is 0.5. IMPRESSION/PLAN: This is a 61-year-old patient with colon cancer, now admitted with pelvic pain, sciatic type of pain and constipation. The patient does have a sacral lesion and also retroperitoneal lymphadenopathy. Discussed with Dr. Hendricks at length. The patient is planned to have radiation and chemotherapy and also port placement. Will coordinate regarding the colonoscopy scheduled. The patient also has significant reflux symptoms with worsening of these symptoms recently. It would be reasonable to consider endoscopic evaluation at the same time as the patient is due to be started on chemotherapy also. Meanwhile, we will continue Protonix. Thank you very much for allowing us to participate in the care of the patient. Tong Null MD cc: [id number] TT: 09/16/2016 18:14:15 Confirmation # [id number] Dictation # [id number] chastity WALLACE
--- NOTE | 2016-09-16 20:00 | CON ---
DATE: 09/16/2016 HISTORY OF PRESENT ILLNESS: This is a 61-year-old female who has a past medical history of colon can cer diagnosed in 2014. The patient underwent resection and now came with worsening symptoms of const ipation and low back pain radiating to both lower extremities. I was called to evaluate the patient. PAST MEDICAL HISTORY: Colon cancer. MRI of the lumbosacral spine was done, which showed a mass lesi on compressing on the sacral nerve and the patient is scheduled for radiation for tomorrow. I was ca lled to evaluate the patient. SOCIAL HISTORY: She does not smoke, does not drink. MEDICATIONS: The patient currently not taking any medication. REVIEW OF SYSTEMS: A 10-point review of system was negative except for constipation and low ba ck pain. PHYSICAL EXAMINATION: NEUROLOGIC: Alert, awake, oriented x 3. No aphasia. Cranial nerves II through XII were tested. Pu pils reactive. EOM intact. Visual cortez full. No facial asymmetry. Tongue midline. Motor examin ation: Moves all the extremities equally. Tone normal. Deep tendon reflexes 1+. Both plantars are downgoing. Sensory appears intact. Cerebellar gait deferred. IMPRESSION: Low back pain radiating in both lower extremities and also has a complaint of constipati on and urinary overflow. I was called to evaluate the patient. The patient has a mass in the sacral area and possibly cauda equina type syndrome. The patient going for radiation tomorrow. Workup in progress. Erwin Moya MD cc: [id number] TT: 09/16/2016 19:59:45 Confirmation # [id number] Dictation # [id number] mn
--- NOTE | 2016-09-17 08:42 | PN ---
DATE: 09/16/2016 LOCATION: The patient is in room 364, bed 1. PROBLEMS: The patient has stage IV carcinoma of the colon with documented retroperitoneal mets, now mets to the sacral ala and 2 other areas of the bone including T7 and lumbar vertebral body. The met s is seen on the PET CT scan. The MRI fails to show any significant disease in the lower lumbar spin e. The patient is admitted with urinary retention and worsening pain in the right sciatic area radia ting down to the right buttock area that is piercing in nature and, on a pain scale of 0-10, is at le ast 6 or 8, requiring IV narcotics. The patient has also not had a bowel movement for several days. The catheter bowels have also changed, which was a concern to her. The patient was examined by Dr. Null, who feels that the patient could be having extrinsic compression by tumor on the rectum and she definitely needs a colonoscopy. She has already been started on bowel prep to see if that will help her. The patient definitely has pasty stool in the rectum, but the scans show that she is full of stool all through the right side of the colon. The patient denies any history of nausea, vomiting . Pain is controlled with morphine. PHYSICAL EXAMINATION: VITAL SIGNS: Stable. T-max is 98.4, blood pressure is 122/72, pulse is 79, respirations 18. HEENT: Head is normocephalic, atraumatic. Conjunctivae pale. Sclerae are anicteric. Pupils are eq ually reactive to light and accommodation. Examination of the oropharynx reveals no oropharyngeal le sions. NECK: Supple. There is no adenopathy. LUNGS: Clear to percussion and auscultation. HEART: Reveals S1 and S2 to be normal. No gallop or murmur is heard. ABDOMEN: Soft. There are no masses palpable. There is no significant tenderness today noted. EXTREMITIES: Reveals no cyanosis, clubbing or edema. The patient has a Salazar catheter in place that is draining clear urine. LABORATORY DATA: Reveals a white count of 12.2, hemoglobin 37.4, white count 6.5, platelet count is 132. Chemistries: BUN 13, creatinine 0.5. ASSESSMENT NOTES AND PLAN: Detailed discussion with the patient today regarding our treatment plan. The patient is going to have a port placed tomorrow morning. She is also going to get initiated wit h chemotherapy as soon as is feasible. She was started on bowel prep. She is going to have a treatm ent with IV bisphosphonates for the bone metastasis while they are continuing the IV Decadron. We pl an to change the chemo sequence from tomorrow to the day after tomorrow right after the colonoscopy. In view of the fact that the patient has considerable amount of stool, the patient may not be comple tely cleaned out by tomorrow morning, so the colonoscopy is planned for Saturday and then will start the chemo right after. So, plan for tomorrow is radiation, port placement, IV Aredia, and st ool prep for the planned colonoscopy. Hopefully, the patient will do well with the current approach. Consent for chemotherapy has been already taken. Plan is to give her modified FOLFOX 7 along with Avastin. Orders for the drugs have already been written as well and given to the nurse to be faxed t o the pharmacy. Consent has also been obtained. Kedar Hendricks MD cc: [id number] TT: 09/16/2016 22:08:20 Confirmation # [id number] Dictation # [id number] mark
--- NOTE | 2016-09-17 08:43 | CON ---
DATE: 09/16/2016 This patient was seen and evaluated earlier. This 61-year-old patient with a history of colon cancer and rectosigmoid cancer in 2015, underwent lower anterior resection. Was admitted because of increasing constipation and also sciatic like pain radiating to the lower extremities, progressively worsening for the past 2 weeks. The patient had a PET scan done. The patient did have an MRI and also the CAT scan done, found to have retroperitoneal lymphadenopathy , sepsis, suspicious for metastatic disease and also lytic lesion in the right sacral area. The MRI showed within the sacrum to the right of the midline sacro illaic joint. There is abnormal focus involving the right sacral nerve root extending into the left. The patient has a large amount of stool in the rectum. GI consultation was requested to further evaluate this. PAST MEDICAL HISTORY: Other past medical history significant for chronic acid reflux disease. ALLERGIES: ALLERGIC TO IV CONTRAST. ____ history of skin cancer. FAMILY HISTORY: Noncontributory. SOCIAL HISTORY: Denies smoking or alcohol. REVIEW OF SYSTEMS: Positive as above. PHYSICAL EXAMINATION: GENERAL: The patient is comfortable, lying on the bed, not in acute distress. VITAL SIGNS: Temperature is 97.8, pulse 65, blood pressure 128/69, respirations 20, O2 saturation is 98. HEENT: Atraumatic, anicteric. NECK: Supple. HEART: S1, S2 heard. LUNGS: Bilateral normal vesicular breath sounds. ABDOMEN: Soft. There is no mass palpable. No tenderness. EXTREMITIES: No cyanosis. No clubbing. RECTAL: Examination revealed large amount of soft stool and also, there is a protruding mass felt in the posteriorly, the rectal exam and the ____ appears to be smooth. LABORATORY DATA: Hemoglobin 12.7, hematocrit 37.4, WBC 6.5, platelets 132. BUN 13, creatinine 0.5. Alkaline phosphatase 229. IMPRESSION: This 61-year-old patient with history of status post anterior resection for rectosigmoid carcinoma, now admitted with sciatic type of pain, low back pain. The pain radiated to the back gluteal area and also worsening of the constipation and discomfort for the period of 2 [address] has CT and MRI done and showed a mass in the sacral area. Her MRI of the pelvis done prior, there was a mass in the left hemipelvis involving the inferolateral portion of the sacrum. The CT also was reviewed. Would recommend colonoscopy evaluation after the bowel clearance. The patient would benefit from colonoscopy. The problem of the pelvic discomfort may be secondary to the tumor involvement and also the constipation could be related to either anorectal dysfunction due to tumor involvement or it could be due to extrinsic compression causing the problem. In view of the scan, it is reasonable we will consider the full colonoscopic evaluation. This was explained to the patient, who understands. Also discussed with Dr. Hendricks. Thank you very much for allowing us to participate in the care of the patient. Tong Null MD cc: [id number] TT: 09/16/2016 20:53:11 Confirmation # [id number] Dictation # [id number] sn MTDD
[2016-09-17] MEDS: POLYETHYLENE GLYCOL 3350 17 GM/Dose PACKET PO SCH (09:37)
[2016-09-17] MEDS: Dexamethasone 4 mg/1 ml IVP SCH ×2 (09:37→21:28)
[2016-09-17] MEDS: Morphine 4 mg/ml ISec IVP PRN (10:14)
[2016-09-17] MEDS ORDERED: Lidocaine 2% Inj (20ml) ONE (14:37)
[2016-09-17] MEDS ORDERED: Peg-Electrolyte Oral Soln 4L (Golytely) PO ONE (15:00)
[2016-09-17] MEDS ORDERED: Midazolam 2 MG/2 ML VIAL ONE (15:33)
[2016-09-17] MEDS: Sodium Chloride 0.45% 1,000 ML IV SCH (16:26)
--- NOTE | 2016-09-17 16:39 | CP.PCM.PCO ---
Physician Communication Note - Physician Communication Note Physician Communication Note: came to see pt, but was in procedure. recommend marisa 50mg po bid for pain.
--- NOTE | 2016-09-17 16:40 | VASCULAR ---
PROCEDURE: Ultrasound and fluoroscopic right internal jugular venous access port. CLINICAL HISTORY: Metastatic colon carcinoma.Venous port for chemotherapy. PHYSICIAN(S): Shabbir Hackett M.D. TECHNIQUE: The relative risks and indications of the procedure were explained to the patient and consent obtained. The patient was placed supine on the arteriogram table and the right neck and chest prepped and draped in the usual sterile fashion. Conscious sedation monitoring was provided throughout the procedure by a nurse. Antibiotics were given prior to the procedure. Under direct ultrasound guidance, the right internal jugular vein was punctured with a micro-puncture set. A 0.035 angled Glidewire was advanced into the IVC. A 4 cm incision was made below the right clavicle and the pocket blunted dissected. A 8 American single-lumen catheter, 23 cm long, was advanced to the SVC/RA junction. The catheter was trimmed and attached to the port. The port aspirates and injects easily. The port was placed in the pocket and closed in 2 layers. The patient tolerated the procedure well. IMPRESSION: Ultrasound and fluoroscopically placed right internal jugular venous access port.
--- NOTE | 2016-09-17 17:35 | PN ---
DATE: 09/17/2016 HISTORY OF PRESENT ILLNESS: Seen and examined at the bedside earlier today. She had started radiatio n today. Denies any nausea, vomiting, or abdominal pain. The patient is planned to start chemothera py soon. VITAL SIGNS: Temperature is 97.8, blood pressure 130/77, pulse is 83, respirations 19, 98% on room a ir. LABORATORY DATA: No new labs are noted for today. Her CA 19-9 is less than 1.4. CEA is 250.0. PHYSICAL EXAMINATION: HEENT: Sclerae anicteric. NECK: Supple. CARDIAC: S1, S2. LUNGS: Sounds are clear. ABDOMEN: With bowel sounds, soft, nontender. No rebound or guarding. ASSESSMENT: A 61-year-old female with colon cancer, came with complaints of pelvic pain and constipa tion. The patient has a sacral lesion and retroperitoneal lymphadenopathy. The patient also has gas troesophageal reflux disease. PLAN: The patient has started radiation today, is planned to start chemotherapy. The patient is goi ng to start chemotherapy soon, plans to have a port placed tomorrow. We are going to prepare the anival christianson for an endoscopy and colonoscopy tomorrow. She is currently on a clear liquid diet and will sta rt GoLYTELY prep around 3:00 p.m.; n.p.o. after midnight. We will recheck her labs in the a.m. I spo ke to the patient and agrees for the procedure. Will continue PPI. We will also hold the MiraLax dos es for today as she will be on a bowel prep; is on Decadron and is also on morphine for pain and on p amidronate disodium. The patient seen and the case discussed with Dr. Null. Yoana IQBAL cc: [id number] TT: 09/17/2016 17:34:15 Confirmation # [id number] Dictation # [id number]
--- NOTE | 2016-09-17 21:09 | PN ---
DATE: 09/17/2016 Addendum to the GI progress note of ROSAMARIA Wong. This patient was seen and evaluated earlier. I discussed with Dr. Hendricks. The patient is scheduled for a colonoscopic evaluation in a.m. and also upper GI endoscopy in view of the significant reflux symptoms and nausea. Tong Null MD cc: [id number] TT: 09/17/2016 21:07:50 Confirmation # [id number] Dictation # [id number] jn MTDD
[2016-09-17] MEDS: Morphine 15 mg SR Tab PO SCH (21:28)
--- NOTE | 2016-09-18 01:36 | PN ---
DATE: 09/17/2016 PROBLEMS: This is a 61-year-old female, who was admitted through the emergency room with worsening r ight sciatica/buttock pain radiating down the posterior aspect of her thigh that is on a scale of 0-1 0, at least 9, and is like a hot poker being stuck into the buttock area, steadily worsening over the last several days. In addition to that, the patient has noticed change in character of her stools. She has been getting increasingly constipated, and then in the ER, she had problems passing urine, a nd bladder ultrasound showed more than 600 mL of fluid. The patient had a catheter left in and it mccabe s been draining since then. The patient has a diagnosis, based on the workup, neurologic exam, and f indings of the CT scan and MRI, of metastatic disease causing cauda equina syndrome, which could caus e bladder dysfunction. The patient also had character change in the bowel habits, for which the antwon ent will need a colonoscopy. The patient denies any nausea, vomiting, abdominal pain at this point i n time. She does have spasms and suprapubic pain, for which she has been getting morphine intermitte ntly as requested. The patient is scheduled for colonoscopy tomorrow, and we will start the chemothe rapy. Orders already have already been sent. Downstairs in the pharmacy, they are waiting to get in itiated soon. We want to get the port out of the way, and the patient has already been started on ra diation. She had a radiation consult today. She will get radiation starting tomorrow. In addition to the radiation, the patient will be getting systemic chemotherapy. PHYSICAL EXAMINATION: VITAL SIGNS: T-max is 98.4, blood pressure is 130/77, pulse is 83, respirations 19, and 98% saturati on on room air. HEENT: Head is normocephalic, atraumatic. Conjunctivae pale, sclerae anicteric, pupils are equally reactive to light and accommodation. Examination of the oropharynx reveals no oropharyngeal lesions. LUNGS: Clear to percussion and auscultation. HEART: Reveals S1 and S2 to be normal. No gallop or murmur is heard. NEUROLOGIC: Reveals no focal deficits. LYMPHATICS: Examination for adenopathy in the neck, axilla, and groin reveals no new adenopathy. LABORATORY: Hemoglobin and hematocrit are still holding. ASSESSMENT AND PLAN: The patient currently is on PPI, small doses of IV Decadron, and she received h er first dose of Aredia today. She is going to get the chemotherapy in the a.m., followed by 24-hour infusion x 2 of 5FU over the next 3 days. Plan is to prep the patient today for preparation for col onoscopy tomorrow. She is going to start chemotherapy and radiation as soon as it is feasible, and r adiation treatment have already been done today. Routine post exam instructions have been give n to the patient. I spoke to the patient in great detail. We also spoke with Dr. Null, updating him about all the facts. Kedar Hendricks MD cc: [id number] TT: 09/18/2016 01:36:01 Confirmation # [id number] Dictation # [id number] vn
[2016-09-18 07:24] LABS: ADD MANUAL DIFF? NO
[2016-09-18 07:37] LABS: INR 1.07 (0.93-1.08); PARTIAL THROMBOPLASTIN TIME 24.8 Seconds (23.7-30.8)
[2016-09-18 07:46] LABS: ALKALINE PHOSPHATASE 181 U/L (38-133); ALT/SGPT 29 U/L (7-56); AST/SGOT 20 U/L (15-39); BILIRUBIN,TOTAL 0.5 mg/dL (0.2-1.3); BLOOD UREA NITROGEN 9 mg/dL (7-21); CALCIUM 9.3 mg/dL (8.4-10.5); CARBON DIOXIDE 30 mmol/L (21-33); CHLORIDE 103 mmol/L (98-107); GFR AFRICAN-AMERICAN > 60; GLUCOSE,RANDOM 108 mg/dL (70-110); POTASSIUM 4.1 mmol/L (3.6-5.0); SODIUM 139 mmol/L (132-148); TOTAL PROTEIN 6.7 g/dL (5.8-8.3)
[2016-09-18 08:05] LABS: GRAN # 7.84 (1.4-6.5); GRAN % 78.1 % (50.0-68.0); LYMPH # 1.3 (1.2-3.4); LYMPH % 12.8 % (22.0-35.0); MEAN CELL VOLUME 85.4 fL (80.0-105.0); MEAN CORPUSCULAR HEMOGLOBIN 28.8 pg (25.0-35.0); MEAN CORPUSCULAR HGB CONC 33.7 g/dl (31.0-37.0); MONO # 0.9 (0.1-0.6); MONO % 9.1 % (1.0-6.0); PLATELET COUNT 201 10^3/uL (120.0-450.0); RED CELL DISTRIBUTION WIDTH 14.2 % (11.5-14.5)
[2016-09-18 08:07] LABS: HEMATOCRIT 33.8 % (36.0-48.0)
[2016-09-18] MEDS: Sodium Chloride 0.45% 1,000 ML IV SCH (08:32)
[2016-09-18] MEDS: Dexamethasone 4 mg/1 ml IVP SCH ×2 (09:49→22:29)
[2016-09-18] MEDS: Morphine 4 mg/ml ISec IVP PRN ×2 (09:50→14:56)
[2016-09-18] MEDS: Morphine 15 mg SR Tab PO SCH ×2 (10:14→21:24)
[2016-09-18] MEDS ORDERED: Propofol 10 mg/ml Inj (20 ML) ONE ×2 (13:03→13:16)
[2016-09-18] MEDS ORDERED: Midazolam 2 MG/2 ML VIAL ONE (13:17)
[2016-09-18] MEDS ORDERED: Lactated Ringer's 1,000 ML IV SCH (13:45)
--- NOTE | 2016-09-18 16:01 | CP.PCM.CON ---
<Natali Mathew - Last Filed: 09/18/16 16:38> History of Present Illness - History of Present Illness History of Present Illness: General Surgery Dr. Mccracken HPI: 61 y/o F w/ PMHx of colon Ca presented to the ED on 08/15/16 w/ CC of constipation, urinary retention, and back pain that shoots down R leg. Pt was diagnosed w/ stage III colon Ca in 2014. At which time, pt had a sigmoidectomy. Pt was supposed to have chemo but refused and was lost to follow up. In July, pt revisited her PMD and was found to have elevated CEA. Pt was referred to Dr. Hendricks for further workup. MRI and CT imaging show bone mets likely causing pt' s sciatic pain. Pt had EGD and colonoscopy performed today by Dr. Null. There was concern for obstruction so surgery was consulted. pt denies CP, SOB, F /C, N/V, numbness, tingling. PMHx: stage 3 colon Ca Meds: reviewed PSHx: sigmoidectomy SHx:denies tobacco, EtOH, drug use FHx: noncontributory Review of Systems - Review of Systems All systems: reviewed and no additional remarkable complaints except (see HPI) Past Patient History - Infectious Disease Hx of Infectious Diseases: None - Tetanus Immunizations Tetanus Immunization: Unknown - Past Social History Smoking Status: Never Smoked - CARDIAC Hx Cardiac Disorders: Yes Hx Hypertension: Yes - PULMONARY Hx Respiratory Disorders: No - NEUROLOGICAL Hx Neurological Disorder: No - HEENT Hx HEENT Problems: Yes (Contacts/glasses) - RENAL Hx Chronic Kidney Disease: No - ENDOCRINE/METABOLIC Hx Endocrine Disorders: No - HEMATOLOGICAL/ONCOLOGICAL Hx Blood Disorders: Yes Hx Cancer: Yes (Colon/Basil CA) Hx Metastesis: Yes - INTEGUMENTARY 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) - MUSCULOSKELETAL/RHEUMATOLOGICAL Hx Musculoskeletal Disorders: Yes Hx Back Pain: Yes Hx Falls: No - GASTROINTESTINAL Hx Gastrointestinal Disorders: Yes Hx Gastroesophageal Reflux: Yes Other/Comment: Colon CA, colectomy 2014, IBS, Constipation - GENITOURINARY/GYNECOLOGICAL Hx Genitourinary Disorders: Yes Hx Urinary Tract Infection: Yes - PSYCHIATRIC Hx Psychophysiologic Disorder: Yes Hx Anxiety: Yes - SURGICAL HISTORY Hx Surgeries: Yes - ANESTHESIA Hx Anesthesia Reactions: No Hx Malignant Hyperthermia: No Meds Home Medications: Home Medication List Medication Instructions Recorded Confirmed Type Ondansetron [Zofran] 4 mg PO Q8H PRN 3 Days 09/23/16 Rx Allergies/Adverse Reactions: Allergies Allergy/AdvReac Type Severity Reaction Status Date / Time IV CONTRAST Allergy Severe SHORTNESS Uncoded 10/06/16 18:13 OF BREATH CAF Allergy Intermediate PALPITATION Uncoded 10/06/16 18:13 S - Medications Medications: Current Medications Acetaminophen (Tylenol 325mg Tab) 650 mg PO Q4 PRN PRN Reason: Pain, Mild (1-3) Dexamethasone (Decadron Inj) 4 mg IVP Q12 RODRÍGUEZ Last Admin: 09/18/16 09:49 Dose: 4 mg Fluorouracil (Fluorouracil) 692 mg IVP ONCE ONE Stop: 09/18/16 19:01 Ondansetron HCl 20 mg/Dexamethasone 20 mg/Diphenhydramine HCl 25 mg/Famotidine 20 mg/ Sodium Chloride 67.5 mls @ 162 mls/hr IVPB ONCE ONE Stop: 09/18/16 19:24 Fosaprepitant 150 mg/ Sodium (Chloride) 150 mls @ 290 mls/hr IVPB ONCE ONE Stop: 09/18/16 19:31 Calcium Gluconate 1,000 mg/Magnesium Sulfate 1 gm/ Sodium Chloride 112 mls @ 149.333 mls/hr IV ONCE ONE Stop: 09/18/16 19:44 Calcium Gluconate 1,000 mg/Magnesium Sulfate 1 gm/ Sodium Chloride 112 mls @ 149.333 mls/hr IV ONCE ONE Stop: 09/18/16 23:44 Bevacizumab 305 mg/ Sodium (Chloride) 262.2 mls @ 349.6 mls/hr IV ONCE ONE Stop: 09/18/16 19:44 Oxaliplatin 147 mg/ Dextrose 529.4 mls @ 132.35 mls/hr IV ONCE ONE Stop: 09/18/16 22:59 Leucovorin Calcium 692 mg/ (Sodium Chloride) 250 mls @ 125 mls/hr IV ONCE ONE Stop: 09/18/16 20:59 Fluorouracil 4,152 mg/ (Dextrose) 1,083.04 mls @ 23.544 mls/hr IVP ONCE ONE Stop: 09/20/16 16:59 Lactated Ringer's (Lactated Ringer's) 1,000 mls @ 75 mls/hr IV .[id number] [facility] Lorazepam (Ativan) 0.5 mg IV ONCE ONE Stop: 09/18/16 19:01 Morphine Sulfate (Morphine) 4 mg IVP Q4H PRN PRN Reason: Pain, moderate (4-7) Last Admin: 09/18/16 14:56 Dose: 4 mg Morphine Sulfate (Morphine Extended Release Tab) 15 mg PO Q12 [facility] Last Admin: 09/18/16 10:14 Dose: Not Given Pantoprazole Sodium (Protonix Inj) 40 mg IVP DAILY [facility] Last Admin: 09/18/16 09:50 Dose: 40 mg Polyethylene Glycol (Miralax) 17 gm PO TID [facility] Last Admin: 09/17/16 09:37 Dose: 17 gm Physical Exam - Constitutional Appears: Non-toxic, No Acute Distress, Chronically Ill - Head Exam Head Exam: NORMAL INSPECTION - Eye Exam Eye Exam: Normal appearance - ENT Exam ENT Exam: Mucous Membranes Moist - Respiratory Exam Respiratory Exam: NORMAL BREATHING PATTERN. absent: Accessory Muscle Use, Respiratory Distress - Cardiovascular Exam Cardiovascular Exam: REGULAR RHYTHM - GI/Abdominal Exam GI & Abdominal Exam: Soft. absent: Distended, Guarding, Mass, Rebound, Tenderness - Extremities Exam Extremities exam: Positive for: normal inspection. Negative for: pedal edema, tenderness - Neurological Exam Neurological exam: Alert, Oriented x3 - Psychiatric Exam Psychiatric exam: Normal Affect, Normal Mood - Skin Skin Exam: Dry, Intact, Normal Color, Warm Results - Vital Signs Recent Vital Signs: Last Vital Signs Temp 989 F H 09/18/16 14:16 Pulse 98 H 09/18/16 14:16 Resp 14 09/18/16 14:16 BP 165/89 H 09/18/16 14:16 Pulse Ox 99 09/18/16 14:16 - Labs Result Diagrams: 09/18/16 07:00 09/18/16 07:00 Labs: Laboratory Results - last 24 hr 09/18/16 09/18/16 09/18/16 07:00 07:00 07:00 WBC 10.0 D RBC 3.96 Hgb 11.4 L Hct 33.8 L MCV 85.4 MCH 28.8 MCHC 33.7 RDW 14.2 Plt Count 201 MPV 10.0 Gran % 78.1 H Lymph % (Auto) 12.8 L [place] % (Auto) 9.1 H Eos % (Auto) 0.0 L Baso % (Auto) 0.0 Gran # 7.84 H Lymph # 1.3 [place] # 0.9 H Eos # 0.0 Baso # 0.00 PT 11.6 INR 1.07 APTT 24.8 Sodium 139 Potassium 4.1 Chloride 103 Carbon Dioxide 30 Anion Gap 10 BUN 9 Creatinine 0.5 Est GFR ( Amer) > 60 Est GFR (Non-Af Amer) > 60 Random Glucose 108 Calcium 9.3 Magnesium 2.0 Total Bilirubin 0.5 AST 20 ALT 29 Alkaline Phosphatase 181 H Total Protein 6.7 Albumin 3.4 Globulin 3.3 Albumin/Globulin Ratio 1.0 L - Imaging and Cardiology MRI - back Status: Image reviewed by me, Report reviewed by me CT scan - abdomen Status: Image reviewed by me, Report reviewed by me Assessment & Plan - Assessment and Plan (Free Text) Assessment: 61 y/o F w/ possible colon obstruction 2/2 stage IV colon cancer - NPO, IVF - f/u GI recs - f/u barium enema - f/u colonoscopy report. - cont medical management Pt discussed w/ Dr. Kaykay Mathew DO PGY1 <Yoan Mccracken - Last Filed: 12/02/16 23:31> Results - Vital Signs Recent Vital Signs: Last Vital Signs Temp 98.5 F 09/23/16 06:00 Pulse 68 09/23/16 06:00 Resp 18 09/23/16 06:00 BP 147/92 H 09/23/16 06:00 Pulse Ox 97 09/23/16 06:00 - Labs Result Diagrams: 09/23/16 07:00 09/23/16 07:00 Assessment & Plan - Assessment and Plan (Free Text) Assessment: Patient was seen and examined by me. I agree with assessment and plan as per resident's note. - Date & Time Date: 09/18/16 Time: 18:45
[2016-09-18] MEDS ORDERED: DEXTROSE 5% IVP ONE (19:00)
[2016-09-18] MEDS ORDERED: DIPHENHYDRAMINE IVPB ONE (19:00)
[2016-09-18] MEDS ORDERED: OXALIPLATIN IV ONE (19:00)
[2016-09-18] MEDS ORDERED: ONDANSETRON IVPB ONE (19:00)
[2016-09-18] MEDS ORDERED: FAMOTIDINE IVPB ONE (19:00)
[2016-09-18] MEDS ORDERED: SODIUM CHLORIDE 0.9% IV ONE ×4 (19:00→23:00)
[2016-09-18] MEDS ORDERED: DEXTROSE 5% IV ONE (19:00)
[2016-09-18] MEDS ORDERED: MAGNESIUM SULFATE IV ONE ×2 (19:00→23:00)
[2016-09-18] MEDS ORDERED: FLUOROURACIL IVP ONE (19:00)
[2016-09-18] MEDS ORDERED: Fluorouracil 500 mg/10 ml Inj IVP ONE (19:00)
[2016-09-18] MEDS ORDERED: WATER IVP ONE (19:00)
[2016-09-18] MEDS ORDERED: WATER IV ONE (19:00)
[2016-09-18] MEDS ORDERED: DEXAMETHASONE IVPB ONE (19:00)
[2016-09-18] MEDS ORDERED: BEVACIZUMAB IV ONE (19:00)
[2016-09-18] MEDS ORDERED: [UNRECOGNIZED DRUG - OTHER] IVPB ONE (19:00)
[2016-09-18] MEDS ORDERED: CALCIUM GLUCONATE IV ONE ×2 (19:00→23:00)
[2016-09-18] MEDS ORDERED: LEUCOVORIN IV ONE (19:00)
[2016-09-18] MEDS: Meropenem 1g/NS 100mL IVPB 1 GM/100 ML PIGGYBACK IVPB SCH (22:06)
[2016-09-18] MEDS: Vancomycin 1gm in NS 250ml 1 GM/250 ML BAG IVPB SCH (22:50)
[2016-09-18 22:57] LABS: URINE BILIRUBIN NEGATIVE (NEGATIVE); URINE BLOOD LARGE (NEGATIVE); URINE GLUCOSE (UA) NEGATIVE (NEGATIVE); URINE KETONE NEGATIVE (NEGATIVE); URINE LEUKOCYTE ESTERASE TRACE Leu/uL (NEGATIVE); URINE PROTEIN NEGATIVE mg/dL (<30 mg/dL); URINE UROBILINOGEN 0.2 E.U./dL (<1 E.U./dL)
[2016-09-18 22:58] LABS: URINE APPEARANCE CLEAR (CLEAR); URINE COLOR STRAW (YELLOW)
[2016-09-18 23:00] LABS: URINE EPITHELIAL CELLS 0 - 2 /hpf (0-5); URINE RBC 0 - 2 /hpf (0-2); URINE WBC 0 - 2 /hpf (0-6)
--- NOTE | 2016-09-19 01:13 | PN ---
DATE: 09/18/2016 ADDENDUM This is an addendum to the Gi progress note of ROSAMARIA Wong. This patient was seen and evaluated earlier today. The patient underwent an upper GI endoscopy, which was found to have esophagitis, gastritis, and small hiatus hernia. The patient had a colonoscopy, which revealed obstructing area in the sigmoid colon just 1 cm proximal to the previous anastomosis, which was previously low anterior resection. The scope could not be advanced due to be tight stricture. Would recommend at this point: 1. Would at this point continue the liquid diet. 2. Gastrografin barium contrast enema. 3. Surgical evaluation. 4. I would hold off chemotherapy until the ____ it is further evaluated. Thank you very much for allowing us to participate in the care of the patient. Tong Null MD cc: [id number] TT: 09/19/2016 01:12:58 Confirmation # [id number] Dictation # [id number] chastity WALLACE
--- NOTE | 2016-09-19 02:28 | PN ---
DATE: 09/18/2016 LOCATION: The patient is in room 364, bed 2. PROBLEMS: This is a 61-year-old white female who was admitted through the Emergency Room with worsen ing right sciatic buttock pain radiating down to the posterior aspect of her thigh that, on a scale o f 0-10, was at least 9, like a hot poker being stuck into the buttock area, steadily worsening over t he past several days. In addition to that, the patient had noticed change in the character of the stools. She is becoming increasingly constipated. In the ER, she had problems passing urine and bladder ultrasound showed more than 600 mL of fluid. The patient has a catheter left in and drainin g since then. The patient has a diagnosis based on workup and neurologic exam and findings of the CA T scan, MRI of metastatic disease causing cauda equina syndrome, which could cause bladder dysfunctio n. The patient also had change in character in the bowel habits for which the patient underwent colo noscopy today. Colonoscopy shows, above the anastomotic line of the previous colon cancer resection, there is extreme narrowing of the rectosigmoid, which is of concern to us. The patient could have a recurrent disease, could be extrinsic pressure from outside that is not clearly apparent on the CAT scan. Dr. Null has ordered a Gastrografin enema for the a.m. to be done to know which direction we should go. In the meantime, the patient also has been getting narcotics for pain, which is both I V morphine plus MS Contin. Chemotherapy orders were written and in the process of being given today and that is why, if the patient has a temperature, we may have to hold it. PHYSICAL EXAMINATION: VITAL SIGNS: T-max is 98.4, blood pressure is 137/77, pulse is 83, respirations 19, O2 sat is 98% on room air. HEENT: Head is normocephalic, atraumatic. Conjunctivae pale. Sclerae are anicteric. Pupils are eq ually reactive to light and accommodation. Examination of the oropharynx reveals no oropharyngeal le sions. LUNGS: Clear to percussion and auscultation. HEART: Reveals S1 and S2 to be normal. No gallop or murmur is heard. ABDOMEN: Soft, nontender. No suprapubic tenderness is noted. NEUROLOGIC: Higher functions are normal. No focal deficits are noted. There is no evidence of shelbi opathy in the neck, axillae, or groin. LABORATORY DATA: Shows hemoglobin, hematocrit and electrolytes to be stable at this time. Today's d suzi reveals the following: White count is 10, hemoglobin 11.4, hematocrit 33, platelet count 201,000 . Chemistries reveal electrolytes to be normal, alkaline phosphatase is 181 and albumin is 3.4 with a total protein of 6.7. ASSESSMENT NOTES AND PLAN: The patient has a near stricture of narrowing of the rectosigmoid and col onoscopy attempted. To do a full colonoscopy was not possible because of the stricture. The patient is going to be scheduled for Gastrografin barium enema. I put a call in to and spoke to anusha corona, who agreed with the plan. The patient is not clinically obstructed this time, in which case, one of the questions would be, "Should we give her systemic chemotherapy while keeping her on clear liqu id diet to see if the opening would improve?" In the meantime, the patient was supposed to be set up for radiation and that also has been put on hold pending what our determination should be. Once I g et the surgical input, I will feel more comfortable which direction we should proceed. If there is a complete or near complete obstruction, the question about palliative colostomy is also raised. The patient is very depressed about all these findings, but I reassured her that, most likely, since she is not clinically obstructed, that it could be or Gastrografin going beyond the level of obstru ction that the colonoscopy could not achieve and that this might give us bigger room to give her chem otherapy to see if the opening could be improved with the systemic effects of chemotherapy. Right no w, the plan is to initiate chemotherapy if possible, pending barring any other problems. Labs for a. m. have been requested. I discussed my findings in detail with the patient. Dr. Null also spoke to her, who did the gastrointestinal colonoscopy this afternoon. We are waiting for surgical input as well. I spoke with the surgical elastic knitter hand frame as well, explaining as to why we did the colonoscopy and why we think that surgical evaluation may be necessary. Kedar Hendricks MD cc: [id number] TT: 09/19/2016 02:27:41 Confirmation # [id number] Dictation # [id number] mn
[2016-09-19] MEDS: Meropenem 1g/NS 100mL IVPB 1 GM/100 ML PIGGYBACK IVPB SCH ×3 (05:25→21:33)
[2016-09-19 07:06] LABS: GRAN # 4.34 (1.4-6.5); GRAN % 92.6 % (50.0-68.0); HEMATOCRIT 32.1 % (36.0-48.0); LYMPH # 0.3 (1.2-3.4); LYMPH % 5.5 % (22.0-35.0); MEAN CELL VOLUME 89.9 fL (80.0-105.0); MEAN CORPUSCULAR HEMOGLOBIN 31.7 pg (25.0-35.0); MEAN CORPUSCULAR HGB CONC 35.2 g/dl (31.0-37.0); MEAN PLATELET VOLUME 11.1 fl (7.0-11.0); MONO # 0.1 (0.1-0.6); MONO % 1.9 % (1.0-6.0); PLATELET COUNT 173 10^3/uL (120.0-450.0); RED CELL DISTRIBUTION WIDTH 15.9 % (11.5-14.5); WHITE BLOOD COUNT 4.7 10^3/ul (4.5-11.0)
[2016-09-19 07:18] LABS: ADD MANUAL DIFF? NO
--- NOTE | 2016-09-19 07:51 | CP.PCM.PN ---
<Natali Mathew - Last Filed: 09/19/16 09:07> Subjective - Date & Time of Evaluation Date of Evaluation: 09/19/16 Time of Evaluation: 06:45 - Subjective Subjective: General Surgery Dr. Mccracken Pt S&E @bedside. NAEO. denies F/C, N/V. some abd discomfort. no BM since colonoscopy. NPO for barium enema today. Objective - Vital Signs/Intake and Output Vital Signs (last 24 hours): Temp Pulse Resp BP Pulse Ox 98.3 F 64 18 106/58 L 96 09/19/16 00:00 09/19/16 00:00 09/19/16 00:00 09/19/16 00:00 09/19/16 00:00 Intake and Output: 09/19/16 09/19/16 06:59 18:59 Intake Total 1460 Output Total 2400 Balance -940 - Medications Medications: Current Medications Acetaminophen (Tylenol 325mg Tab) 650 mg PO Q4 PRN PRN Reason: Pain, Mild (1-3) Last Admin: 09/18/16 21:02 Dose: 650 mg Dexamethasone (Decadron Inj) 4 mg IVP Q12 RODRÍGUEZ Last Admin: 09/18/16 22:29 Dose: Not Given Fluorouracil 4,152 mg/ (Dextrose) 1,083.04 mls @ 23.544 mls/hr IVP ONCE ONE Stop: 09/20/16 16:59 Lactated Ringer's (Lactated Ringer's) 1,000 mls @ 75 mls/hr IV .[id number] RODRÍGUEZ Meropenem 1g/NS 100mL IVPB (Meropenem 1g/Ns 100ml Ivpb) 1 gm in 100 mls @ 100 mls/hr IVPB Q8 RODRÍGUEZ PRN Reason: Protocol Stop: 09/25/16 22:01 Last Admin: 09/19/16 05:25 Dose: 100 mls/hr Vancomycin HCl (Vancomycin 1gm) 1 gm in 250 mls @ 167 mls/hr IVPB Q12 RODRÍGUEZ PRN Reason: Protocol Last Admin: 09/18/16 22:50 Dose: 167 mls/hr Morphine Sulfate (Morphine Extended Release Tab) 15 mg PO Q12 RODR[facility]GUE[facility] Last Admin: 09/18/16 21:24 Dose: 15 mg Pantoprazole Sodium (Protonix Inj) 40 mg IVP DAILY [facility] Last Admin: 09/18/16 09:50 Dose: 40 mg Polyethylene Glycol (Miralax) 17 gm PO TID [facility] Last Admin: 09/17/16 09:37 Dose: 17 gm - Labs Labs: 09/19/16 06:00 09/18/16 07:00 PT 11.6 Seconds (9.9-11.8) 09/18/16 07:00 INR 1.07 (0.93-1.08) 09/18/16 07:00 APTT 24.8 Seconds (23.7-30.8) 09/18/16 07:00 - Constitutional Appears: Non-toxic, No Acute Distress, Chronically Ill - Head Exam Head Exam: NORMAL INSPECTION - Eye Exam Eye Exam: Normal appearance - ENT Exam ENT Exam: Mucous Membranes Moist - Respiratory Exam Respiratory Exam: NORMAL BREATHING PATTERN. absent: Accessory Muscle Use, Respiratory Distress - Cardiovascular Exam Cardiovascular Exam: REGULAR RHYTHM - GI/Abdominal Exam GI & Abdominal Exam: Soft. absent: Distended, Tenderness, Mass - Extremities Exam Extremities Exam: Normal Inspection - Neurological Exam Neurological Exam: Alert, Awake, Oriented x3 - Psychiatric Exam Psychiatric exam: Normal Affect, Normal Mood - Skin Skin Exam: Dry, Intact, Normal Color, Warm Assessment and Plan - Assessment and Plan (Free Text) Assessment: 61 y/o F w/ stage IV colon ca - f/u barium enema - f/u GI recs - cont medical management - replete electrolytes PRN Pt discussed w/ Dr. Kaykya Mathew DO PGY1 <Yoan Mccracken - Last Filed: 12/02/16 23:33> Objective - Vital Signs/Intake and Output Vital Signs (last 24 hours): Temp Pulse Resp BP Pulse Ox 98.5 F 68 18 147/92 H 97 09/23/16 06:00 09/23/16 06:00 09/23/16 06:00 09/23/16 06:00 09/23/16 06:00 - Labs Labs: 09/23/16 07:00 09/23/16 07:00 PT 11.6 Seconds (9.9-11.8) 09/18/16 07:00 INR 1.07 (0.93-1.08) 09/18/16 07:00 APTT 24.8 Seconds (23.7-30.8) 09/18/16 07:00 Assessment and Plan - Assessment and Plan (Free Text) Assessment: Patient was seen and examined by me. I agree with assessment and plan as per resident's note.
--- NOTE | 2016-09-19 09:30 | RAD ---
HISTORY: rule out pneumonia COMPARISON: 05/31/2014 FINDINGS: LUNGS: No active pulmonary disease. PLEURA: No significant pleural effusion identified, no pneumothorax apparent. CARDIOVASCULAR: Normal. OSSEOUS STRUCTURES: No significant abnormalities. VISUALIZED UPPER ABDOMEN: Normal. OTHER FINDINGS: Right-sided Port-A-Cath IMPRESSION: No active disease.
[2016-09-19] MEDS: POLYETHYLENE GLYCOL 3350 17 GM/Dose PACKET PO SCH ×4 (10:36→17:59)
[2016-09-19] MEDS: Vancomycin 1gm in NS 250ml 1 GM/250 ML BAG IVPB SCH ×2 (11:36→22:10)
[2016-09-19] MEDS: Morphine 15 mg SR Tab PO SCH ×2 (11:37→21:33)
[2016-09-19] MEDS: Dexamethasone 4 mg/1 ml IVP SCH ×2 (11:37→21:32)
--- NOTE | 2016-09-19 14:08 | PN ---
DATE: 09/19/2016 Seen and examined at the bedside this afternoon. She went for the Gastrografin barium enema this morning. She denies any nausea, vomiting, or abdominal pain. Tolerating the clear liquids. No reports of any bleeding. She had a colonoscopy yesterday, found to have an obstructing lesion in the sigmoid. No reports of bleeding, chills, shortness of breath or chest pain. The patient did have a fever of 102.1, T-max of 102.1. VITAL SIGNS: Temperature is 97.7 now. BP is 112/70, pulse 67, respirations 20 , 98 room air. LABORATORY DATA: WBC 4.7, H and H is 11.3 and 32.1, platelets of 173. Mag today is 2.0. PHYSICAL EXAMINATION: HEENT: Sclerae are anicteric. NECK: Supple. CARDIAC: S1, S2. LUNGS: Lung sounds with decreased breath sounds, but good aeration. ABDOMEN: With bowel sounds, softly distended with right-sided lower quadrant discomfort, but is a bit better. EXTREMITIES: With SCD boots. No edema. NEUROLOGIC: Awake, alert, oriented. ASSESSMENT: A 61-year-old female came with pelvic pain, has sacral lesion, retroperitoneal lymphadenopathy,h/o colon carcinoma, constipation, s/p colon/ EGD , found to have esophagitis, r/o BE, Hiatal Hernia, for GERD/ Nausea, colon revealed sigmoid obstructing lesion. PLAN: We will follow up her Gastrografin barium enema. Currently is on a clear liquid. The patient is requesting to eat. Told her that we would review the Gastrografin study and make a decision. She was also seen by surgery. The patient is currently undergoing radiation. She actually left this afternoon. The patient is on IV antibiotics. Continue GI prophylaxis. She is on MiraLax. Getting vancomycin IV. Blood cultures and urine cultures were sent yesterday. The patient has had a fever. The patient is status post chemo yesterday. The patient was seen and case discussed with Dr. Null. Yoana IQBAL cc: [id number] TT: 09/19/2016 14:07:41 Confirmation # [id number] Dictation # [id number] [facility]
--- NOTE | 2016-09-19 15:51 | RAD ---
PROCEDURE: Single contrast barium enema HISTORY: sigmoid obstruction, h/o colon cancer COMPARISON: TECHNIQUE: A single contrast study was performed using thin barium FINDINGS: There is a short segment severe stenosis at the rectosigmoid junction. This could represent recurrent neoplasm or anastomotic stricture. The remainder of the colon is unremarkable. IMPRESSION: There is a short segment severe stenosis at the rectosigmoid junction. This could represent recurrent neoplasm or anastomotic stricture. The remainder of the colon is unremarkable.
--- NOTE | 2016-09-19 15:57 | CP.PCM.CON ---
History of Present Illness - History of Present Illness History of Present Illness: 61 year old female with PMH of colon cancer diagnosed in 2015 S/P sigmoidectomy came in complaining of constipation and pain down her buttocks. Work up revealed a right hemipelvic mass with probable bony lesions in the spine which are probably metastatic. She underwent EGD and colonoscopy yesterday which showed narrowing around the sigmoid area where the scope could not be passed through. She also had a right anterior chest wall port placed yesterday. She is to be started on chemotherapy but suddenly developed fevers last night, without chills. She also denies headache or dizziness, no chest pain, no nausea or vomiting, no diarrhea, no dysuria, no hematuria, no blurring of vision, no cough or rhinorrhea, no sore throat. Because of the fever, Infectious Diseases consult is requested to further evaluate and manage. Review of Systems - Review of Systems All systems: reviewed and no additional remarkable complaints except (as per HPI ) Past Patient History - Infectious Disease Hx of Infectious Diseases: None - Tetanus Immunizations Tetanus Immunization: Unknown - Past Social History Smoking Status: Never Smoked - CARDIAC Hx Cardiac Disorders: Yes Hx Hypertension: Yes - PULMONARY Hx Respiratory Disorders: No - NEUROLOGICAL Hx Neurological Disorder: No - HEENT Hx HEENT Problems: Yes (Contacts/glasses) - RENAL Hx Chronic Kidney Disease: No - ENDOCRINE/METABOLIC Hx Endocrine Disorders: No - HEMATOLOGICAL/ONCOLOGICAL Hx Blood Disorders: Yes Hx Cancer: Yes (Colon/Basil CA) Hx Metastesis: Yes - INTEGUMENTARY 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) - MUSCULOSKELETAL/RHEUMATOLOGICAL Hx Musculoskeletal Disorders: Yes Hx Back Pain: Yes Hx Falls: No - GASTROINTESTINAL Hx Gastrointestinal Disorders: Yes Hx Gastroesophageal Reflux: Yes Other/Comment: Colon CA, colectomy 2015, IBS, Constipation - GENITOURINARY/GYNECOLOGICAL Hx Genitourinary Disorders: Yes Hx Urinary Tract Infection: Yes - PSYCHIATRIC Hx Psychophysiologic Disorder: Yes Hx Anxiety: Yes - SURGICAL HISTORY Hx Surgeries: Yes - ANESTHESIA Hx Anesthesia Reactions: No Hx Malignant Hyperthermia: No Meds Home Medications: Home Medication List Medication Instructions Recorded Confirmed Type Ibuprofen [Motrin Tab] 800 mg PO Q6 #30 tab 09/14/16 Rx Allergies/Adverse Reactions: Allergies Allergy/AdvReac Type Severity Reaction Status Date / Time epinephrine Allergy Intermediate PALPITATION Verified 08/06/16 10:34 S caffeine Allergy PALPITATION Verified 08/06/16 10:34 S IV CONTRAST Allergy Severe SHORTNESS Uncoded 08/06/16 10:34 OF BREATH CAF Allergy Intermediate PALPITATION Uncoded 08/06/16 10:34 S - Medications Medications: Current Medications Acetaminophen (Tylenol 325mg Tab) 650 mg PO Q4 PRN PRN Reason: Pain, Mild (1-3) Last Admin: 09/18/16 21:02 Dose: 650 mg Dexamethasone (Decadron Inj) 4 mg IVP Q12 [facility] Last Admin: 09/18/16 09:49 Dose: 4 mg Calcium Gluconate 1,000 mg/Magnesium Sulfate 1 gm/ Sodium Chloride 112 mls @ 149.333 mls/hr IV ONCE ONE Stop: 09/18/16 23:44 Oxaliplatin 147 mg/ Dextrose 529.4 mls @ 132.35 mls/hr IV ONCE ONE Stop: 09/18/16 22:59 Fluorouracil 4,152 mg/ (Dextrose) 1,083.04 mls @ 23.544 mls/hr IVP ONCE ONE Stop: 09/20/16 16:59 Lactated Ringer's (Lactated Ringer's) 1,000 mls @ 75 mls/hr IV .[id number] [facility] Meropenem 1g/NS 100mL IVPB (Meropenem 1g/Ns 100ml Ivpb) 100 mls @ 100 mls/hr IVPB Q8 [facility] PRN Reason: Protocol Stop: 09/25/16 22:01 Vancomycin HCl (Vancomycin 1gm) 250 mls @ 167 mls/hr IVPB Q12H [facility] PRN Reason: Protocol Morphine Sulfate (Morphine) 4 mg IVP Q4H PRN PRN Reason: Pain, moderate (4-7) Last Admin: 09/18/16 14:56 Dose: 4 mg Morphine Sulfate (Morphine Extended Release Tab) 15 mg PO Q12 [facility] Last Admin: 09/18/16 10:14 Dose: Not Given Pantoprazole Sodium (Protonix Inj) 40 mg IVP DAILY [facility] Last Admin: 09/18/16 09:50 Dose: 40 mg Polyethylene Glycol (Miralax) 17 gm PO TID [facility] Last Admin: 09/17/16 09:37 Dose: 17 gm Physical Exam - Constitutional Appears: Non-toxic, No Acute Distress - Head Exam Head Exam: NORMAL INSPECTION - ENT Exam ENT Exam: Mucous Membranes Moist - Neck Exam Neck exam: Negative for: Lymphadenopathy, Meningismus - Respiratory Exam Respiratory Exam: Decreased Breath Sounds Additional comments: right anterior chest wall port site clean and non-tender - Cardiovascular Exam Cardiovascular Exam: +S1, +S2 - GI/Abdominal Exam GI & Abdominal Exam: Soft. absent: Tenderness Results - Vital Signs Recent Vital Signs: Last Vital Signs Temp 102.1 F H 09/18/16 21:02 Pulse 108 H 09/18/16 20:55 Resp 20 09/18/16 20:55 BP 135/67 09/18/16 20:55 Pulse Ox 97 09/18/16 20:55 - Labs Result Diagrams: 09/19/16 06:00 09/18/16 07:00 Labs: Laboratory Results - last 24 hr 09/18/16 09/18/16 09/18/16 07:00 07:00 07:00 WBC 10.0 D RBC 3.96 Hgb 11.4 L Hct 33.8 L MCV 85.4 MCH 28.8 MCHC 33.7 RDW 14.2 Plt Count 201 MPV 10.0 Gran % 78.1 H Lymph % (Auto) 12.8 L [place] % (Auto) 9.1 H Eos % (Auto) 0.0 L Baso % (Auto) 0.0 Gran # 7.84 H Lymph # 1.3 [place] # 0.9 H Eos # 0.0 Baso # 0.00 PT 11.6 INR 1.07 APTT 24.8 Sodium 139 Potassium 4.1 Chloride 103 Carbon Dioxide 30 Anion Gap 10 BUN 9 Creatinine 0.5 Est GFR ( Amer) > 60 Est GFR (Non-Af Amer) > 60 Random Glucose 108 Calcium 9.3 Magnesium 2.0 Total Bilirubin 0.5 AST 20 ALT 29 Alkaline Phosphatase 181 H Total Protein 6.7 Albumin 3.4 Globulin 3.3 Albumin/Globulin Ratio 1.0 L Assessment & Plan - Assessment and Plan (Free Text) Plan: Assessment Systemic Inflammatory Response Syndrome after port placement and colonsocopy R/ O transient bacteremia colon cancer diagnosed in 2014 S/P sigmoidectomy Plan started Vancomycin and Merrem pending blood, urine cx; PCT is elevated but it may be elevated in those with cancer; CXR does not show active disease will follow clinically
--- NOTE | 2016-09-19 20:39 | PN ---
DATE: 09/19/2016 This is patient's hospital visit on the medical floor. For Dr. Hendricks. SUBJECTIVE: The patient is a 61-year-old female, seen lying awake in bed with her elevated temperatu re now improved with radiation begun today. Her chemotherapy was to have started, however, it has be en put on hold with consideration for chemo to be restarted tomorrow with FOLFOX-6. The patient is n ow on a liquid diet as per Dr. Null due to findings earlier today with barium enema showing short segment severe stenosis of the rectosigmoid junction, could represent neoplasm or anastomotic strict ure. The remainder of the colon is unremarkable. The patient is in no acute distress at this time. OBJECTIVE: PHYSICAL EXAMINATION: VITAL SIGNS: Temperature 98, pulse 65, respirations 18, blood pressure 123/71, pulse ox 98%. HEENT: Unremarkable. NECK: Supple. HEART: Regular rate. LUNGS: Clear. ABDOMEN: Soft, nontender. EXTREMITIES: No edema. SKIN: Warm, dry and clear. NEUROLOGIC: Awake, alert, and oriented x 3. The patient's temperature now is 98. She had temperature up to 102.1 yesterday. LABORATORY DATA: The patient's labs were done. White blood cell count of 4.7, hemoglobin 11.3, ty tocrit 32.1, platelet count 173,000 with a chem metabolic panel completely within normal range except for an alkaline phosphatase of 181 with a CEA value of 250, CA 19-9 was less than 1.4 done yesterday . Procalcitonin of 2.8. The barium enema report is as above. The patient had a chest x-ray done yesterday. It was read as no active disease. The patient had a port placement done on 09/17/2016. 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 Rule out recurrence. Metastatic stage IV cancer of the colon, constipation, rule out cauda equina syndrome, anxiety, gastr oesophageal reflux disease. PLAN: The patient is to continue present medical regimen with patient having radiation today with ch emotherapy on hold until tomorrow with Dr. Avalos's infectious disease consult appreciated, status pos t port placement with systemic inflammatory response. The plan for this patient will be as above. P rognosis for this patient is guarded. oTmasz Winters MD cc: [phone] TT: 09/19/2016 20:38:17 Confirmation # [id number] Dictation # [id number] rn
--- NOTE | 2016-09-20 00:37 | PN ---
DATE: 09/19/2016 ADDENDUM: This is an addendum to the GI progress report dictated by Yoana Osei NP. SUBJECTIVE: The barium enema contrast study was reviewed. It confirms the short segment of severe n arrowing just proximal to the previous anterior resection area. It was very tight narrowing. The sc ope could not be advanced. Review of the barium contrast study demonstrated the same. The real conc bettina is the patient is and has not had any bowel movements yet. PHYSICAL EXAMINATION: ABDOMEN: Soft. No tenderness. IMPRESSION: Colon cancer, probable recurrence, with metastatic disease with involvement of the sacru m. Colonoscopy revealed a tight stricture just proximal to the low anterior anastomosis. The scope could not be passed through. They are friable tissue noticed at that area, probable infiltration. O ther differential to be considered is new colonic primary, less likely given the CT findings. Multip le biopsies are taken at the time of attempted colonoscopy. PLAN: 1. I would recommend at this point followup of the biopsy report. 2. Continue only liquid diet for the time being. 3. The patient is planned to have chemotherapy tomorrow. We will discuss with Dr. Hendricks regarding this colonic obstruction and chemotherapy. Will also discuss with the surgical team regarding this severe stenosis with obstruction. Contrast was able to go through, but patient has impending complet e colonic obstruction. Thank you very much for allowing us to participate in the care of the patient. Tong Null MD cc: [id number] TT: 09/20/2016 00:37:13 Confirmation # [id number] Dictation # [id number] mark
[2016-09-20] MEDS: Meropenem 1g/NS 100mL IVPB 1 GM/100 ML PIGGYBACK IVPB SCH ×3 (05:59→22:15)
[2016-09-20 06:16] LABS: ADD MANUAL DIFF? NO
[2016-09-20 06:29] LABS: ALKALINE PHOSPHATASE 150 U/L (38-133); ALT/SGPT 34 U/L (7-56); AST/SGOT 19 U/L (15-39); BILIRUBIN,TOTAL 0.3 mg/dL (0.2-1.3); BLOOD UREA NITROGEN 11 mg/dL (7-21); CALCIUM 7.6 mg/dL (8.4-10.5); CARBON DIOXIDE 28 mmol/L (21-33); CHLORIDE 106 mmol/L (95-110); GFR AFRICAN-AMERICAN > 60; GLUCOSE,RANDOM 127 mg/dL (70-110); MAGNESIUM 2.2 mg/dL (1.7-2.2); POTASSIUM 3.9 mmol/L (3.6-5.0); SODIUM 140 mmol/L (132-148); TOTAL PROTEIN 6.2 g/dL (5.8-8.3)
[2016-09-20 07:00] LABS: GRAN # 5.96 (1.4-6.5); GRAN % 80.6 % (50.0-68.0); HEMATOCRIT 32.8 % (36.0-48.0); LYMPH # 0.6 (1.2-3.4); LYMPH % 7.6 % (22.0-35.0); MEAN CELL VOLUME 87.9 fL (80.0-105.0); MEAN CORPUSCULAR HEMOGLOBIN 30.3 pg (25.0-35.0); MEAN CORPUSCULAR HGB CONC 34.5 g/dl (31.0-37.0); MEAN PLATELET VOLUME 10.4 fl (7.0-11.0); MONO # 0.9 (0.1-0.6); MONO % 11.8 % (1.0-6.0); PLATELET COUNT 187 10^3/uL (120.0-450.0); RED CELL DISTRIBUTION WIDTH 15.3 % (11.5-14.5); WHITE BLOOD COUNT 7.4 10^3/ul (4.5-11.0)
[2016-09-20] MEDS ORDERED: Sodium Chloride 0.9% 1,000 ML IV STA (08:00)
[2016-09-20] MEDS ORDERED: SODIUM CHLORIDE 0.9% IV ONE ×6 (09:15→16:05)
[2016-09-20] MEDS ORDERED: LEUCOVORIN IV ONE ×2 (09:15→12:15)
--- NOTE | 2016-09-20 09:34 | CP.PCM.PN ---
Addendum entered and electronically signed by Natali Mathew DO 09/20/16 15:28: Pathology shows adenocarcinoma in lamina propria w/ normal overlying colonic mucosa Advance diet per GI Pt currently passing gas - Loop colostomy if pt becomes obstructed Original Note: <Natali Mathew - Last Filed: 09/20/16 11:14> Subjective - Date & Time of Evaluation Date of Evaluation: 09/20/16 Time of Evaluation: 09:33 - Subjective Subjective: General Surgery Dr. Mccracken Pt S&E @bedside. NAEO. pt admits to mild abd discomfort and crampy. denies N/V, F/C. (-) BM (+) Flatus. tolerating CLD Objective - Vital Signs/Intake and Output Vital Signs (last 24 hours): Temp Pulse Resp BP Pulse Ox 98.5 F 75 20 128/75 97 09/20/16 06:00 09/20/16 06:00 09/20/16 06:00 09/20/16 06:00 09/20/16 06:00 Intake and Output: 09/20/16 09/20/16 06:59 18:59 Intake Total 1700 Output Total 1600 Balance 100 - Medications Medications: Current Medications Acetaminophen (Tylenol 325mg Tab) 650 mg PO Q4 PRN PRN Reason: Pain, Mild (1-3) Last Admin: 09/18/16 21:02 Dose: 650 mg Dexamethasone (Decadron Inj) 4 mg IVP Q12 [facility] Last Admin: 09/19/16 21:32 Dose: 4 mg Fluorouracil (Fluorouracil) 692 mg IVP ONCE ONE Stop: 09/20/16 12:16 Meropenem 1g/NS 100mL IVPB (Meropenem 1g/Ns 100ml Ivpb) 1 gm in 100 mls @ 100 mls/hr IVPB Q8 [facility] PRN Reason: Protocol Stop: 09/25/16 22:01 Last Admin: 09/20/16 05:59 Dose: 100 mls/hr Vancomycin HCl (Vancomycin 1gm) 1 gm in 250 mls @ 167 mls/hr IVPB Q12 [facility] PRN Reason: Protocol Last Admin: 09/19/16 22:10 Dose: 167 mls/hr Ondansetron HCl 20 mg/Dexamethasone 20 mg/Diphenhydramine HCl 25 mg/Famotidine 20 mg/ Sodium Chloride 67.5 mls @ 162 mls/hr IVPB ONCE ONE Stop: 09/20/16 12:29 Calcium Gluconate 1,000 mg/Magnesium Sulfate 1 gm/ Sodium Chloride 112 mls @ 149.333 mls/hr IV ONCE ONE Stop: 09/20/16 12:49 Calcium Gluconate 1,000 mg/Magnesium Sulfate 1 gm/ Sodium Chloride 112 mls @ 149.333 mls/hr IV ONCE ONE Stop: 09/20/16 16:49 Bevacizumab 305 mg/ Sodium (Chloride) 262.2 mls @ 349.6 mls/hr IV ONCE ONE Stop: 09/20/16 12:49 Oxaliplatin 147 mg/ Dextrose 529.4 mls @ 132.35 mls/hr IV ONCE ONE Stop: 09/20/16 16:14 Leucovorin Calcium 692 mg/ (Sodium Chloride) 250 mls @ 125 mls/hr IV ONCE ONE Stop: 09/20/16 14:14 Fosaprepitant 150 mg/ Sodium (Chloride) 150 mls @ 290 mls/hr IVPB ONCE ONE Stop: 09/20/16 12:36 Fluorouracil 4,152 mg/ (Dextrose) 1,083.04 mls @ 23.544 mls/hr IVP ONCE ONE Stop: 09/22/16 10:14 Lorazepam (Ativan) 0.5 mg IV ONCE ONE Stop: 09/20/16 12:06 Morphine Sulfate (Morphine Extended Release Tab) 15 mg PO Q12 [facility] Last Admin: 09/19/16 21:33 Dose: 15 mg Pantoprazole Sodium (Protonix Inj) 40 mg IVP DAILY [facility] Last Admin: 09/19/16 11:37 Dose: 40 mg Polyethylene Glycol (Miralax) 17 gm PO TID [facility] Last Admin: 09/19/16 17:59 Dose: Not Given - Labs Labs: 09/20/16 06:03 09/20/16 06:03 PT 11.6 Seconds (9.9-11.8) 09/18/16 07:00 INR 1.07 (0.93-1.08) 09/18/16 07:00 APTT 24.8 Seconds (23.7-30.8) 09/18/16 07:00 - Constitutional Appears: Non-toxic, No Acute Distress - Head Exam Head Exam: NORMAL INSPECTION - Eye Exam Eye Exam: Normal appearance - ENT Exam ENT Exam: Mucous Membranes Moist - Respiratory Exam Respiratory Exam: NORMAL BREATHING PATTERN. absent: Accessory Muscle Use, Respiratory Distress - Cardiovascular Exam Cardiovascular Exam: REGULAR RHYTHM. absent: Bradycardia, Tachycardia - GI/Abdominal Exam GI & Abdominal Exam: Soft, Tenderness (minimal LLQ TTP). absent: Distended, Guarding, Mass, Rebound - Extremities Exam Extremities Exam: Normal Inspection - Neurological Exam Neurological Exam: Alert, Awake, Oriented x3 - Psychiatric Exam Psychiatric exam: Normal Affect, Normal Mood - Skin Skin Exam: Dry, Intact, Normal Color, Warm Assessment and Plan - Assessment and Plan (Free Text) Assessment: 61 y/o F w/ stage IV colon ca - barium enema showing anastomotic stricture vs mass - f/u GI recs - f/u pathology report - cont medical management - replete electrolytes PRN Pt discussed w/ Dr. Kaykay Mathew DO PGY1 <Yoan Mccracken - Last Filed: 12/02/16 23:35> Objective - Vital Signs/Intake and Output Vital Signs (last 24 hours): Temp Pulse Resp BP Pulse Ox 98.5 F 68 18 147/92 H 97 09/23/16 06:00 09/23/16 06:00 09/23/16 06:00 09/23/16 06:00 09/23/16 06:00 - Labs Labs: 09/23/16 07:00 09/23/16 07:00 PT 11.6 Seconds (9.9-11.8) 09/18/16 07:00 INR 1.07 (0.93-1.08) 09/18/16 07:00 APTT 24.8 Seconds (23.7-30.8) 09/18/16 07:00 Assessment and Plan - Assessment and Plan (Free Text) Assessment: Patient was seen and examined by me. I agree with assessment and plan as per resident's note.
[2016-09-20] MEDS: Morphine 4 mg/ml ISec IVP PRN (10:00)
[2016-09-20] MEDS: Dexamethasone 4 mg/1 ml IVP SCH ×2 (10:15→22:14)
[2016-09-20] MEDS: Vancomycin 1gm in NS 250ml 1 GM/250 ML BAG IVPB SCH ×2 (11:15→23:28)
[2016-09-20] MEDS: POLYETHYLENE GLYCOL 3350 17 GM/Dose PACKET PO SCH (11:16)
[2016-09-20] MEDS: Morphine 15 mg SR Tab PO SCH ×2 (11:17→22:13)
[2016-09-20] MEDS ORDERED: CALCIUM GLUCONATE IV ONE ×3 (12:05→16:05)
[2016-09-20] MEDS ORDERED: DEXAMETHASONE IVPB ONE (12:05)
[2016-09-20] MEDS ORDERED: FAMOTIDINE IVPB ONE (12:05)
[2016-09-20] MEDS ORDERED: [UNRECOGNIZED DRUG - OTHER] IVPB ONE (12:05)
[2016-09-20] MEDS ORDERED: ONDANSETRON IVPB ONE (12:05)
[2016-09-20] MEDS ORDERED: MAGNESIUM SULFATE IV ONE ×3 (12:05→16:05)
[2016-09-20] MEDS ORDERED: BEVACIZUMAB IV ONE (12:05)
[2016-09-20] MEDS ORDERED: DIPHENHYDRAMINE IVPB ONE (12:05)
[2016-09-20] MEDS ORDERED: DEXTROSE 5% IV ONE (12:15)
[2016-09-20] MEDS ORDERED: DEXTROSE 5% IVP ONE (12:15)
[2016-09-20] MEDS ORDERED: WATER IVP ONE (12:15)
[2016-09-20] MEDS ORDERED: FLUOROURACIL IVP ONE (12:15)
[2016-09-20] MEDS ORDERED: WATER IV ONE (12:15)
[2016-09-20] MEDS ORDERED: OXALIPLATIN IV ONE (12:15)
[2016-09-20] MEDS ORDERED: Fluorouracil 500 mg/10 ml Inj IVP ONE (12:15)
--- NOTE | 2016-09-20 14:18 | PN ---
DATE: 09/20/2016 The patient is in bed in no acute distress, nontoxic. PHYSICAL EXAMINATION: VITAL SIGNS: Temperature is 98, blood pressure is 120/70, respiratory rate of 16. HEENT: Unremarkable. NECK: Supple. LUNGS: Have decreased breath sounds. HEART: Normal S1, S2. ABDOMEN: Soft, nontender. LABORATORY EXAMINATION: Reveals a white count of 7.4, hemoglobin of 11, platelets of 187. Chemistri es reveal the BUN of 11, creatinine of 0.4. Procalcitonin is 2.83. Urinalysis is noted. Microbiolo gy reveals the urine cultures are positive for gram-positive cocci. The blood cultures are no growth . The initial urine culture is negative from 09/14. The urinalysis is unremarkable with 0-2 WBCs and current medications reveals the patient to be on ____ ASSESSMENT AND PLAN: A 61-year-old female with systemic inflammatory response syndrome, status post port placement and colonoscopy and blood cultures are negative. Does have a urine culture most likel y a colonizer since the urinalysis is negative in a patient with a history of colon cancer diagnosed in 2014, status post sigmoidoscopy. Currently on vancomycin and meropenem. The elevated procalciton in most likely from the malignancy. Thus far, after 24 hours, the urine and blood cultures are negat emeterio. The repeat urine culture from 09/18 has a gram-positive cocci. The patient seen earlier prior to going to radiation. Review of the orders confirms the patient to be on vancomycin and meropenem. T he patient did have a chest x-ray on 09/18 which revealed the patient to have no active lung disease. Lang Akhtar MD cc: [id number] TT: 09/20/2016 14:17:31 Confirmation # [id number] Dictation # [id number] tn
--- NOTE | 2016-09-20 14:27 | CP.PCM.PN ---
Subjective - Date & Time of Evaluation Date of Evaluation: 09/27/16 Time of Evaluation: 13:20 - Subjective Subjective: Seen and examined at the bedside this afternoon. Patient had radiation earlier today. No N/V, gets abdominal cramps,passing flatus and belching. No BM today. No reports of bleeding. Barium enema reporting narrowing. Objective - Vital Signs/Intake and Output Vital Signs (last 24 hours): Temp Pulse Resp BP Pulse Ox 98.5 F 75 20 128/75 97 09/20/16 06:00 09/20/16 06:00 09/20/16 06:00 09/20/16 06:00 09/20/16 06:00 Intake and Output: 09/20/16 09/20/16 06:59 18:59 Intake Total 1700 Output Total 1600 Balance 100 - Medications Medications: Current Medications Acetaminophen (Tylenol 325mg Tab) 650 mg PO Q4 PRN PRN Reason: Pain, Mild (1-3) Last Admin: 09/18/16 21:02 Dose: 650 mg Dexamethasone (Decadron Inj) 4 mg IVP Q12 [facility] Last Admin: 09/20/16 10:15 Dose: Not Given Meropenem 1g/NS 100mL IVPB (Meropenem 1g/Ns 100ml Ivpb) 1 gm in 100 mls @ 100 mls/hr IVPB Q8 [facility] PRN Reason: Protocol Stop: 09/25/16 22:01 Last Admin: 09/20/16 05:59 Dose: 100 mls/hr Vancomycin HCl (Vancomycin 1gm) 1 gm in 250 mls @ 167 mls/hr IVPB Q12 [facility] PRN Reason: Protocol Last Admin: 09/20/16 11:15 Dose: Not Given Calcium Gluconate 1,000 mg/Magnesium Sulfate 1 gm/ Sodium Chloride 112 mls @ 149.333 mls/hr IV ONCE ONE Stop: 09/20/16 16:49 Oxaliplatin 147 mg/ Dextrose 529.4 mls @ 132.35 mls/hr IV ONCE ONE Stop: 09/20/16 16:14 Leucovorin Calcium 692 mg/ (Sodium Chloride) 250 mls @ 125 mls/hr IV ONCE ONE Stop: 09/20/16 14:14 Fluorouracil 4,152 mg/ (Dextrose) 1,083.04 mls @ 23.544 mls/hr IVP ONCE ONE Stop: 09/22/16 10:14 Calcium Gluconate 1,000 mg/Magnesium Sulfate 1 gm/ Sodium Chloride 112 mls @ 149.333 mls/hr IV ONCE ONE Stop: 09/20/16 13:59 Morphine Sulfate (Morphine Extended Release Tab) 15 mg PO Q12 [facility] Last Admin: 09/20/16 11:17 Dose: Not Given Morphine Sulfate (Morphine) 4 mg IVP Q6H PRN PRN Reason: Pain, moderate (4-7) Last Admin: 09/20/16 10:00 Dose: 4 mg Pantoprazole Sodium (Protonix Inj) 40 mg IVP DAILY [facility] Last Admin: 09/20/16 11:15 Dose: Not Given Polyethylene Glycol (Miralax) 17 gm PO TID [facility] Last Admin: 09/20/16 11:16 Dose: Not Given - Labs Labs: 09/20/16 06:03 09/20/16 06:03 PT 11.6 Seconds (9.9-11.8) 09/18/16 07:00 INR 1.07 (0.93-1.08) 09/18/16 07:00 APTT 24.8 Seconds (23.7-30.8) 09/18/16 07:00 - Constitutional Appears: No Acute Distress - Head Exam Head Exam: NORMAL INSPECTION - Eye Exam Eye Exam: PERRL. absent: Scleral icterus - ENT Exam ENT Exam: Mucous Membranes Moist - Neck Exam Neck Exam: Normal Inspection - Respiratory Exam Respiratory Exam: Clear to Ausculation Bilateral, NORMAL BREATHING PATTERN. absent: Respiratory Distress - Cardiovascular Exam Cardiovascular Exam: +S1, +S2 - GI/Abdominal Exam GI & Abdominal Exam: Soft, Normal Bowel Sounds. absent: Guarding, Tenderness, Rebound - Extremities Exam Extremities Exam: absent: Calf Tenderness, Pedal Edema - Neurological Exam Neurological Exam: Alert, Awake, Oriented x3 - Skin Skin Exam: Dry, Warm Assessment and Plan - Assessment and Plan (Free Text) Assessment: ASSESSMENT: Colon Cancer s/p colon sigmoid obstructing lesion, s/p barium enema Sacral Lesion,retroperitoneal lymphadenopathy GERD Fever PLAN: clear liquid continue PPI starting chemo getting radiation treatment as per oncology, surgical team on IV antibiotics Morphine for pain start full liquid diet continue bowel regimen, hold for diarrhea Seen and discussed with Dr. Null.
--- NOTE | 2016-09-20 22:31 | PN ---
DATE: 09/20/2016 This is the patient's hospital visit on the medical floor. For Dr. Hendricks. SUBJECTIVE: The patient is a 61-year-old female, seen lying awake in bed, status post radiation miladis tment earlier today along with chemotherapy, begun with FOLFOX-6. 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 This was corrected. With this, the patient is otherwise tolerating treatment well with morphine needed for the patient to participate with radiation during positioning for treatments. She is tolerating her liquid diet. PHYSICAL EXAMINATION: VITAL SIGNS: Temperature 97.5, pulse 72, respirations 18, blood pressure 122/68, pulse ox 99%. HEENT: Unremarkable. NECK: Supple. HEART: Regular rate. LUNGS: Clear. ABDOMEN: Soft, minimal tenderness to the low mid abdomen. EXTREMITIES: No edema. SKIN: Warm, dry and clear. NEUROLOGIC: Awake, alert, and oriented x 3. LABORATORY DATA: The patient's labs were done. White blood count 7.4, hemoglobin 11.3, hematocrit 3 2.8, platelet count 178,000 with a chem metabolic panel showing a nonfasting glucose of 127, calcium 7.6, alkaline phosphatase 150 with a procalcitonin of 2.8 done yesterday. The patient's urinalysis from 2 days prior showed a large amount of blood. Her urine culture was Gra m-positive cocci positive, greater than 100,000 colonies, for which Dr. Akhtar is treating her. ASSESSMENT: For this patient is that of stricture of the rectosigmoid secondary to recurrence of silvana or, stage IV metastatic cancer of the colon involving the sacrum, anxiety and GERD. PLAN: For this patient is to continue her radiation along with chemotherapy as per Dr. Hendricks's rec ommendations. We will continue her analgesics for her intractable pain of cancer, with anxiolytics f or anxiety and her diet as per Dr. Null, gastrointestinal guidance consultant. Prognosis for this patient is guarded. We will monitor clinically and with labs. Also treat for urinary tract infection as pe r Dr. Akhtar, who suspects her high fevers were from systemic inflammatory response syndrome with consideration of colonization. Tomasz Winters MD cc: [phone] TT: 09/20/2016 22:30:44 Confirmation # [id number] Dictation # [id number] mn
--- NOTE | 2016-09-21 00:41 | PN ---
DATE: 09/20/2016 ADDENDUM: This is an addendum to the GI progress report dictated by Yoana Osei NP. SUBJECTIVE: I discussed with Dr. Hendricks. The patient on full liquid diet, tolerating. PHYSICAL EXAMINATION: ABDOMEN: Soft. There is no tenderness. IMPRESSION: The patient has an obstruction, significant severe the colon just proximal to the low an terior resection. Colonoscopy could not be passed. The Gastrografin barium enema was reviewed. The patient had a tight stricture in that area. Discussed with Dr. Hendricks all questions and discussed with Dr. Mccracken before. All agreed with the plan of continuing the liquid diet. Will wait for the effect of chemo and radiation. Should the patient develop any obstruction complete, would need c olostomy. At the moment, the plan is to continue the liquid diet. Tong Null MD cc: [id number] TT: 09/21/2016 00:40:27 Confirmation # [id number] Dictation # [id number] mn
[2016-09-21] MEDS: Meropenem 1g/NS 100mL IVPB 1 GM/100 ML PIGGYBACK IVPB SCH ×3 (05:15→22:49)
[2016-09-21 07:27] LABS: ALB/GLOB RATIO 1.1 (1.1-1.8); ALKALINE PHOSPHATASE 154 U/L (38-133); ALT/SGPT 33 U/L (7-56); AST/SGOT 18 U/L (15-39); BILIRUBIN,TOTAL 0.3 mg/dL (0.2-1.3); BLOOD UREA NITROGEN 11 mg/dL (7-21); CALCIUM 7.7 mg/dL (8.4-10.5); CARBON DIOXIDE 24 mmol/L (21-33); CHLORIDE 105 mmol/L (95-110); GFR AFRICAN-AMERICAN > 60; GLUCOSE,RANDOM 125 mg/dL (70-110); MAGNESIUM 2.5 mg/dL (1.7-2.2); SODIUM 136 mmol/L (132-148); TOTAL PROTEIN 6.2 g/dL (5.8-8.3)
[2016-09-21] MEDS: Morphine 4 mg/ml ISec IVP PRN (07:52)
--- NOTE | 2016-09-21 09:15 | CP.PCM.PN ---
<Natali Mathew - Last Filed: 09/21/16 13:05> Subjective - Date & Time of Evaluation Date of Evaluation: 09/21/16 Time of Evaluation: 06:45 - Subjective Subjective: General Surgery Dr. Mccracken Pt S&E @bedside. pt sitting up in bed. in much better spirits today compared to previous days. no complaints. tolerating FLD. (+) Flatus (-) BM. Objective - Vital Signs/Intake and Output Vital Signs (last 24 hours): Temp Pulse Resp BP Pulse Ox 98.4 F 68 17 148/84 95 09/21/16 06:00 09/21/16 06:00 09/21/16 06:00 09/21/16 06:00 09/21/16 06:00 Intake and Output: 09/21/16 09/21/16 06:59 18:59 Intake Total 1940 Output Total 1900 Balance 40 - Medications Medications: Current Medications Acetaminophen (Tylenol 325mg Tab) 650 mg PO Q4 PRN PRN Reason: Pain, Mild (1-3) Last Admin: 09/18/16 21:02 Dose: 650 mg Dexamethasone (Decadron Inj) 4 mg IVP Q12 RODRÍGUEZ Last Admin: 09/20/16 22:14 Dose: 4 mg Docusate Sodium (Colace) 100 mg PO BID RODRÍGUEZ Last Admin: 09/20/16 17:55 Dose: 100 mg Meropenem 1g/NS 100mL IVPB (Meropenem 1g/Ns 100ml Ivpb) 1 gm in 100 mls @ 100 mls/hr IVPB Q8 RODRÍGUEZ PRN Reason: Protocol Stop: 09/25/16 22:01 Last Admin: 09/21/16 05:15 Dose: 100 mls/hr Vancomycin HCl (Vancomycin 1gm) 1 gm in 250 mls @ 167 mls/hr IVPB Q12 RODRÍGUEZ PRN Reason: Protocol Last Admin: 09/20/16 23:28 Dose: 167 mls/hr Fluorouracil 4,152 mg/ (Dextrose) 1,083.04 mls @ 23.544 mls/hr IVP ONCE ONE Stop: 09/22/16 10:14 Last Admin: 09/21/16 01:19 Dose: 23.544 mls/hr Lorazepam (Ativan) 0.5 mg IVP Q6H PRN; Protocol PRN Reason: Anxiety Morphine Sulfate (Morphine Extended Release Tab) 15 mg PO Q12 [facility] Last Admin: 09/20/16 22:13 Dose: 15 mg Morphine Sulfate (Morphine) 4 mg IVP Q6H PRN PRN Reason: Pain, moderate (4-7) Last Admin: 09/21/16 07:52 Dose: 4 mg Pantoprazole Sodium (Protonix Inj) 40 mg IVP DAILY [facility] Last Admin: 09/20/16 11:15 Dose: Not Given - Labs Labs: 09/20/16 06:03 09/21/16 06:45 PT 11.6 Seconds (9.9-11.8) 09/18/16 07:00 INR 1.07 (0.93-1.08) 09/18/16 07:00 APTT 24.8 Seconds (23.7-30.8) 09/18/16 07:00 - Constitutional Appears: Non-toxic, No Acute Distress - Head Exam Head Exam: NORMAL INSPECTION - Eye Exam Eye Exam: Normal appearance - ENT Exam ENT Exam: Mucous Membranes Moist - Respiratory Exam Respiratory Exam: NORMAL BREATHING PATTERN. absent: Accessory Muscle Use, Respiratory Distress - Cardiovascular Exam Cardiovascular Exam: absent: Bradycardia, Tachycardia - GI/Abdominal Exam GI & Abdominal Exam: Soft. absent: Distended, Tenderness - Extremities Exam Extremities Exam: Normal Inspection - Neurological Exam Neurological Exam: Alert, Awake, Oriented x3 - Psychiatric Exam Psychiatric exam: Normal Affect, Normal Mood - Skin Skin Exam: Dry, Intact, Normal Color, Warm Assessment and Plan - Assessment and Plan (Free Text) Assessment: 61 y/o F w/ stage IV colon cancer - pt tolerating XRT and chemo - advance diet per GI - cont medical management - no surgical intervention at this time Pt discussed w/ Dr. Kaykay Mathew DO PGY1 <Yoan Mccracken - Last Filed: 12/02/16 23:36> Objective - Vital Signs/Intake and Output Vital Signs (last 24 hours): Temp Pulse Resp BP Pulse Ox 98.5 F 68 18 147/92 H 97 09/23/16 06:00 09/23/16 06:00 09/23/16 06:00 09/23/16 06:00 09/23/16 06:00 - Labs Labs: 09/23/16 07:00 09/23/16 07:00 PT 11.6 Seconds (9.9-11.8) 09/18/16 07:00 INR 1.07 (0.93-1.08) 09/18/16 07:00 APTT 24.8 Seconds (23.7-30.8) 09/18/16 07:00 Assessment and Plan - Assessment and Plan (Free Text) Assessment: Patient was seen and examined by me. I agree with assessment and plan as per resident's note.
[2016-09-21] MEDS: Morphine 15 mg SR Tab PO SCH (09:38)
[2016-09-21] MEDS: Dexamethasone 4 mg/1 ml IVP SCH ×2 (09:51→22:48)
[2016-09-21] MEDS: Vancomycin 1gm in NS 250ml 1 GM/250 ML BAG IVPB SCH ×2 (09:52→22:49)
[2016-09-21 11:19] LABS: GRAN # 4.39 (1.4-6.5); GRAN % 83.4 % (50.0-68.0); LYMPH # 0.4 (1.2-3.4); LYMPH % 8.2 % (22.0-35.0); MEAN CELL VOLUME 85.5 fL (80.0-105.0); MEAN CORPUSCULAR HGB CONC 32.7 g/dl (31.0-37.0); MEAN PLATELET VOLUME 9.8 fl (7.0-11.0); MONO # 0.4 (0.1-0.6); MONO % 8.4 % (1.0-6.0); PLATELET COUNT 174 10^3/uL (120.0-450.0); RED CELL DISTRIBUTION WIDTH 14.7 % (11.5-14.5); WHITE BLOOD COUNT 5.3 10^3/ul (4.5-11.0)
[2016-09-21 11:24] LABS: HEMATOCRIT 36.7 % (36.0-48.0)
[2016-09-21 11:25] LABS: ADD MANUAL DIFF? NO
[2016-09-21 11:45] LABS: GRAN % 84.4 % (50.0-68.0); LYMPH # 0.5 (1.2-3.4); LYMPH % 6.2 % (22.0-35.0); MEAN CELL VOLUME 83.7 fL (80.0-105.0); MEAN CORPUSCULAR HEMOGLOBIN 28.6 pg (25.0-35.0); MEAN CORPUSCULAR HGB CONC 34.1 g/dl (31.0-37.0); MEAN PLATELET VOLUME 10.2 fl (7.0-11.0); MONO # 0.7 (0.1-0.6); MONO % 9.4 % (1.0-6.0); PLATELET COUNT 175 10^3/uL (120.0-450.0); RED CELL DISTRIBUTION WIDTH 14.1 % (11.5-14.5); WHITE BLOOD COUNT 7.2 10^3/ul (4.5-11.0)
[2016-09-21 11:46] LABS: ADD MANUAL DIFF? NO
[2016-09-21 11:47] LABS: HEMATOCRIT 33.4 % (36.0-48.0)
--- NOTE | 2016-09-21 12:27 | PN ---
DATE: 09/21/2016 This is the patient's hospital visit on the medical floor. For Dr. Hendricks. SUBJECTIVE: The patient is a 61-year-old female, seen lying awake in bed in no acute distress, statu s post radiation treatments earlier today, and having chemotherapy as per Dr. Hendricks's recommendatio ns. She is in no acute distress this visit. She is known to have stage IV cancer of the colon diagn osed in 2014, now with recurrence, constipation, questionable cauda equina syndrome which is improved , with rectosigmoid stricture, anxiety, GERD. OBJECTIVE: PHYSICAL EXAMINATION: VITAL SIGNS: Temperature 98.4, pulse 68, respirations 17, blood pressure 148/84, pulse ox 95%. HEENT: Unremarkable. NECK: Supple. HEART: Regular rate. LUNGS: Clear. ABDOMEN: Soft, nontender. EXTREMITIES: No edema. SKIN: Warm, dry and clear. NEUROLOGIC: Awake, alert, and oriented x 3. LABORATORY DATA: The patient's labs were done. White blood cell count of 7.2, hemoglobin 11.4, ty tocrit 33.4 with a platelet count of 175,000. Her chem metabolic panel was within normal limits with a magnesium of 2.5, alkaline phosphatase 154, calcium 7.7. ASSESSMENT: Stage IV cancer of the colon with recurrence, stricture of the rectosigmoid, anxiety, ga stroesophageal reflux disease. PLAN: For this patient is to continue present medical regimen with chemotherapy as per Dr. Hendricks w ith radiation to continue. We will monitor clinically and with labs. Prognosis for this patient is guarded. Tomasz Winters MD cc: [phone] TT: 09/21/2016 12:26:18 Confirmation # [id number] Dictation # [id number] mn
[2016-09-21] MEDS ORDERED: [UNRECOGNIZED DRUG - OTHER] IVPB ONE (15:00)
[2016-09-21] MEDS ORDERED: FAMOTIDINE IVPB ONE (15:00)
[2016-09-21] MEDS ORDERED: ONDANSETRON IVPB ONE (15:00)
[2016-09-21] MEDS ORDERED: DIPHENHYDRAMINE IVPB ONE (15:00)
[2016-09-21] MEDS ORDERED: DEXAMETHASONE IVPB ONE (15:00)
[2016-09-21] MEDS: ONDANSETRON IVPB ONE ×2 (15:05→15:21)
[2016-09-21] MEDS: DEXAMETHASONE IVPB ONE ×2 (15:05→15:21)
[2016-09-21] MEDS: FAMOTIDINE IVPB ONE ×2 (15:05→15:21)
[2016-09-21] MEDS: DIPHENHYDRAMINE IVPB ONE ×2 (15:05→15:21)
[2016-09-21] MEDS: [UNRECOGNIZED DRUG - OTHER] IVPB ONE ×2 (15:05→15:21)
--- NOTE | 2016-09-21 18:58 | PN ---
DATE: 09/21/2016 This is a physician communication with a patient who is a 61-year-old with colon cancer diagnosed in 2015 status post sigmoidectomy. Came in complaining of constipation and back pain radiating down bot h legs down the buttocks. Workup revealed a right hemipelvic mass for bony lesions of the spine, whi ch are probably metastatic. Had questionable cauda equina spectrum syndrome and is undergoing oncolo gy management per oncology chemotherapy as per Dr. Hendricks. In discussion with Dr. Hendricks, I agreed to keep in the Salazar catheter for at least an average of 3 weeks and to take the Salazar cathete r out. As of now, will continue with Salazar catheter in place, provided there is cleaning of the Fole y catheter and Salazar care and will also recommended Lyrica 50 mg p.o. t.i.d. for neuropathic pain and continue with current chemotherapy as per oncology. Ravi Moya MD cc: [phone] TT: 09/21/2016 18:57:50 Confirmation # [id number] Dictation # [id number] ln
--- NOTE | 2016-09-21 21:58 | PN ---
DATE: 09/21/2016 The patient is in bed in room 364, bed 2. No fevers and no chills. PHYSICAL EXAMINATION: VITAL SIGNS: Temperature is 98, blood pressure is 140/80, respiratory rate 17, heart rate of 80. HEENT: Unremarkable. NECK: Supple. LUNGS: Have decreased breath sounds. HEART: Normal S1, S2. ABDOMEN: Soft, nontender. LABORATORY DATA: Reveals a white count of 7.2, hemoglobin 11, platelets of 175. Chemistries reveal a BUN of 11, creatinine of 0.5. Procalcitonin is 2.83. Microbiology reveals there is Enterococcus f aecalis in the urine. There is pansensitive enterococcus. ASSESSMENT AND PLAN: This is a 61-year-old female who was seen earlier this morning in room 364, bed 2 with systemic inflammatory response syndrome, status post colonoscopy. Blood cultures are negativ e. Urine cultures are positive for Enterococcus. The patient has a Salazar catheter because of her ur inary retention and if possible will try to encourage to discontinue the Salazar catheter. Thus far t he blood cultures are negative. The patient is on chemo, off of antibiotics. The patient has been o n meropenem day #4. Dr. Moya's note is reviewed and Dr. Tomasz Winters's note is reviewed. He s tates the patient has stage IV cancer of the colon with recurrence, sigmoid, anxiety and gastro esophageal reflux disease. note is reviewed. Lang Akhtar MD cc: 350 TT: 09/21/2016 21:58:08 Confirmation # [id number] Dictation # [id number] chastity
[2016-09-22] MEDS: Meropenem 1g/NS 100mL IVPB 1 GM/100 ML PIGGYBACK IVPB SCH ×2 (05:30→13:15)
[2016-09-22 06:19] LABS: ALB/GLOB RATIO 0.9 (1.1-1.8); ALKALINE PHOSPHATASE 134 U/L (38-133); ALT/SGPT 46 U/L (7-56); AST/SGOT 31 U/L (15-39); BILIRUBIN,TOTAL 0.5 mg/dL (0.2-1.3); BLOOD UREA NITROGEN 12 mg/dL (7-21); CARBON DIOXIDE 27 mmol/L (21-33); CHLORIDE 104 mmol/L (98-107); GFR AFRICAN-AMERICAN > 60; GLUCOSE,RANDOM 131 mg/dL (70-110); MAGNESIUM 2.5 mg/dL (1.7-2.2); POTASSIUM 4.2 mmol/L (3.6-5.0); SODIUM 137 mmol/L (132-148); TOTAL PROTEIN 6.1 g/dL (5.8-8.3)
[2016-09-22 07:19] LABS: GRAN # 6.43 (1.4-6.5); GRAN % 85.7 % (50.0-68.0); LYMPH # 0.5 (1.2-3.4); LYMPH % 6.4 % (22.0-35.0); MEAN CORPUSCULAR HEMOGLOBIN 28.2 pg (25.0-35.0); MEAN PLATELET VOLUME 10.4 fl (7.0-11.0); MONO # 0.6 (0.1-0.6); MONO % 7.9 % (1.0-6.0); PLATELET COUNT 169 10^3/uL (120.0-450.0); RED CELL DISTRIBUTION WIDTH 14.1 % (11.5-14.5); WHITE BLOOD COUNT 7.5 10^3/ul (4.5-11.0)
[2016-09-22 07:22] LABS: ADD MANUAL DIFF? NO
[2016-09-22 07:23] LABS: HEMATOCRIT 34.7 % (36.0-48.0)
--- NOTE | 2016-09-22 07:34 | PN ---
DATE: 09/21/2016 This patient was seen and evaluated today. This is an addendum to the GI progress report dictated by Yoana Osei NP. The patient's family was at bedside at the time of examination. At the request of the patient, ____. The patient's abdomen is soft. There is no more tenderness. The patient has be en on chemo and also radiation. No bowel movements yet, but has been passing flatus. This patient h as been on Colace. We will increase it to MiraLax if there is no significant bowel movement. The pa barbie is also on supplement. If the patient does not show any clinical improvement, may need a colos sherman. Thank you very much for allowing us to participate in the care of the patient. Tong Null MD cc: [id number] TT: 09/22/2016 07:33:32 Confirmation # [id number] Dictation # [id number] tn
[2016-09-22 08:47] VITALS: O2SAT 97
[2016-09-22] MEDS: Vancomycin 1gm in NS 250ml 1 GM/250 ML BAG IVPB SCH (09:45)
[2016-09-22] MEDS: Morphine 15 mg SR Tab PO SCH ×2 (09:46→22:59)
[2016-09-22] MEDS: Dexamethasone 4 mg/1 ml IVP SCH ×2 (09:46→21:28)
[2016-09-22] MEDS ORDERED: POLYETHYLENE GLYCOL 3350 17 GM/Dose PACKET PO ONE (11:16)
[2016-09-22] MEDS: Simethicone 40 mg/0.6 ml Liquid (30 ml) PO PRN (11:33)
--- NOTE | 2016-09-22 11:58 | PN ---
DATE: 09/22/2016 This is the patient's hospital visit on the medical floor. For Dr. Hendricks. SUBJECTIVE: The patient is a 61-year-old female, seen lying awake in bed with flatus gas today, a cr amping type discomfort in the lower abdomen with no bowel movement, status post radiation treatments yesterday and the day before with chemotherapy, completing day #3 today with consideration for discha rge home when she is stable. She is known to have stage IV cancer of the colon diagnosed in 2014, no w with recurrence with possible cauda equina syndrome with a Salazar catheter with consideration for a leg bag when she is discharged home, also with followup with Dr. Ezequiel Grant, urology, with advancem ent of diet as per Dr. Null. Otherwise, the patient is in no acute distress except for her gas d iscomfort. As per Dr. Null, will advance to MiraLax, one dose will be given today with considera tion for discharge home tomorrow on Zofran, Compazine, full liquid diet unless advanced by Dr. Jose Miguel cancino with followup in the [facility] outpatient cancer clinic in approximately 2 weeks' igor e and earlier in the office should she be discharged. PHYSICAL EXAMINATION: VITAL SIGNS: Temperature 98.3, pulse 72, respirations 18, blood pressure 160/91, pulse ox 97%. HEENT: Unremarkable. NECK: Supple. HEART: Regular rate. LUNGS: Clear. ABDOMEN: Soft. Minimal tenderness to gentle palpation to mid lower epigastrium. EXTREMITIES: No edema. SKIN: Warm, dry and clear. NEUROLOGIC: Awake, alert, and oriented x 3. LABORATORY DATA: The patient's labs were done. White blood cell count 7.5, hemoglobin 11.8, hematoc rit 34.7, platelet count of 169,000. Chem metabolic panel normal except for a calcium of 8.0, magnes ium 2.5, alkaline phosphatase 134. Otherwise normal chem metabolic panel. The patient's urine culture grew out Enterococcus faecalis for which the patient has been on antibiot ics as per Dr. Akhtar with good effect with consideration for discontinuing of antibiotics as per his recommendations. ASSESSMENT: Stage IV cancer of the colon recurrence with chemotherapy and radiation begun, stricture of the rectosigmoid, questionable cauda equina syndrome with difficulty urinating with Salazar cathete r in situ, gastroesophageal reflux disease, urinary tract infection. PLAN: After conversation with Dr. Hendricks, is to continue present medical regimen. We will offer si methicone for her gas cramping discomfort along with MiraLax with advancement of diet only as per Dr. Null and consideration for discharge home tomorrow if she is stable. We will check her labs and monitor clinically. Tomasz Winters MD cc: 411 TT: 09/22/2016 11:58:08 Confirmation # [id number] Dictation # [id number] karla
--- NOTE | 2016-09-22 14:24 | PN ---
DATE: 09/22/2016 The patient is in bed in no acute distress. PHYSICAL EXAMINATION: VITAL SIGNS: Temperature is 98, blood pressure is 160/90, respiratory rate of 16. HEENT: Unremarkable. NECK: Supple. LUNGS: Have decreased breath sounds. HEART: Normal S1, S2. ABDOMEN: Soft, nontender. LABORATORY DATA: Reveals a white count of 7.5, platelets of 169. BUN of 12, creatinine of 0.4. Pro calcitonin is 2.83. Urinalysis is noted. Microbiology reveals Enterococcus faecalis in the urine. The blood cultures are no growth. Review of the orders reveals the patient is off of antibiotics, on vancomycin, will discontinue ____. ASSESSMENT AND PLAN: A 61-year-old female seen earlier today in room 364, bed 2 with systemic inflam matory response syndrome, colonoscopy, blood cultures are negative. Urine cultures are enterococcus and normal urinalysis. Currently with a Salazar catheter and now will discontinue and the patient is t o complete chemotherapy. No further antibiotics from an infectious point of view. We will discontin ue the meropenem and vancomycin. Lang Akhtar MD cc: 350 TT: 09/22/2016 14:23:41 Confirmation # [id number] Dictation # [id number] kyle
--- NOTE | 2016-09-23 | PN ---
DATE: 09/22/2016 SUBJECTIVE: This patient was seen and evaluated earlier. The patient is now on clear liquid diet. Received one dose of MiraLAX today. Passing flatus, but no bowel movements. PHYSICAL EXAMINATION: VITAL SIGNS: Temperature is 98.4, blood pressure is 167/93 and pulse rate is 71. HEENT: Atraumatic. Anicteric. NECK: Supple. HEART: S1, S2 heard. LUNGS: Bilateral air entry present. ABDOMEN: Soft. There is no tenderness. EXTREMITIES: No edema. No cyanosis. LABORATORY DATA: Hemoglobin is 11.8, hematocrit 34.7, WBC 7.5 and platelets 169. BUN is 12 and creatinine 0.4. 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 Also the patient had biopsies that were reviewed. It was reported as focus of adenocarcinoma in the lamina propria along with lymphovascular distribution. Overlying colonic mucosa appeared to be normal. This probably correlates most likely metastatic focus from the previous colonic adenocarcinoma. The patient is now receiving chemoradiation. The plan is to continue the liquid diet. Will start the MiraLAX on a regular basis. Hopefully , the chemoradiation opens up the stricture and avoid a colostomy. I discussed with the patient at length. Thank you very much for allowing us to participate in the care of the patient. Tong Null MD cc: 416 TT: 09/22/2016 23:59:28 Confirmation # [id number] Dictation # [id number] sn WALLACE
[2016-09-23] MEDS: Simethicone 40 mg/0.6 ml Liquid (30 ml) PO PRN (05:56)
[2016-09-23 07:25] LABS: ADD MANUAL DIFF? NO
[2016-09-23 08:06] LABS: ALKALINE PHOSPHATASE 135 U/L (38-133); ALT/SGPT 46 U/L (7-56); AST/SGOT 17 U/L (15-39); BILIRUBIN,TOTAL 0.7 mg/dL (0.2-1.3); BLOOD UREA NITROGEN 11 mg/dL (7-21); CARBON DIOXIDE 24 mmol/L (21-33); CHLORIDE 103 mmol/L (95-110); GFR AFRICAN-AMERICAN > 60; GLUCOSE,RANDOM 91 mg/dL (70-110); MAGNESIUM 2.5 mg/dL (1.7-2.2); POTASSIUM 4.2 mmol/L (3.6-5.0); SODIUM 135 mmol/L (132-148); TOTAL PROTEIN 6.2 g/dL (5.8-8.3)
[2016-09-23 08:13] LABS: GRAN # 6.59 (1.4-6.5); GRAN % 83.1 % (50.0-68.0); HEMATOCRIT 35.7 % (36.0-48.0); LYMPH % 12.6 % (22.0-35.0); MEAN CELL VOLUME 82.4 fL (80.0-105.0); MEAN CORPUSCULAR HEMOGLOBIN 28.2 pg (25.0-35.0); MEAN CORPUSCULAR HGB CONC 34.2 g/dl (31.0-37.0); MEAN PLATELET VOLUME 10.4 fl (7.0-11.0); MONO # 0.3 (0.1-0.6); MONO % 4.3 % (1.0-6.0); PLATELET COUNT 134 10^3/uL (120.0-450.0); WHITE BLOOD COUNT 7.9 10^3/ul (4.5-11.0)
[2016-09-23 08:53] VITALS: BP 147/92; PULSE 68; RESP 18; TEMP 98.5
--- NOTE | 2016-09-23 09:34 | PN ---
DATE: 09/23/2016 The patient is in bed, in no acute distress, nontoxic. PHYSICAL EXAMINATION: VITAL SIGNS: Temperature is 98, blood pressure is 140/70, respiratory rate of 16. HEENT: Unremarkable. NECK: Supple. LUNGS: Have decreased breath sounds. HEART: Normal S1, S2. ABDOMEN: Soft. LABORATORY EXAMINATION: Reveals a white count of 7.9, hemoglobin of 12. Chemistries reveals the BUN of 11, creatinine of 0.4. Procalcitonin is 2.83. Urinalysis is noted. Microbiology reveals the en terococcus is noted. Review of orders reveals the patient to be off of antibiotics. ASSESSMENT AND PLAN: A 61-year-old female who was seen earlier today in room 364, bed 2 with systemi c inflammatory response syndrome and cultures negative, enterococcus in the urine. Currently off of antibiotics, status post chemotherapy with possible discharge today. The patient has a new Port-A-Ca th. Lang Akhtar MD cc: 350 TT: 09/23/2016 09:33:53 Confirmation # [id number] Dictation # [id number] en
[2016-09-23] MEDS: Dexamethasone 4 mg/1 ml IVP SCH (09:40)
[2016-09-23] MEDS: Morphine 15 mg SR Tab PO SCH (09:41)
[2016-09-23] MEDS ORDERED: POLYETHYLENE GLYCOL 3350 17 GM/Dose PACKET PO SCH (10:00)
--- NOTE | 2016-09-23 20:18 | DS ---
For Dr. Hendricks. SUBJECTIVE: The patient is a 61-year-old female, known to have stage IV cancer of the colon now with recurrence with stricture in the rectosigmoid area, status post 3 days of chemotherapy as per Dr. Pino aldrich's recommendations with radiation on hold over the weekend, resume tomorrow. With this, t he patient is reporting that her flatus is improved; however, no bowel movement with nausea as her on ly complaint for which Zofran and Compazine will be recommended. The patient does have a leg bag Fol ey catheter for questionable cauda equina syndrome; requested urologic evaluation, was not obtained a t this point with Dr. Grant. However, Dr. Moya recommends continuing the Salazar catheter with leg ba g and this will be done. 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 After conversation with Dr. Null, she will continue on full liquid only di et with the hope that the stricture will resolve with eventual followup not requiring a colostomy as may be necessary in the future. The patient is otherwise in no acute distress, anxious for discharge home today, Mother's Day. PHYSICAL EXAMINATION: VITAL SIGNS: Temperature 98.5, pulse 68, respirations 18, blood pressure 147/92, pulse ox 97%. HEENT: Unremarkable with tongue coated. NECK: Supple. HEART: Regular rate. LUNGS: Clear. ABDOMEN: Soft with positive borborygmi. EXTREMITIES: No edema. SKIN: Warm, dry and clear. NEUROLOGIC: Awake, alert, and oriented x 3. LABORATORY DATA: The patient's labs were done. White blood cell count is 7.9, hemoglobin 12.2, ty tocrit 35.7, platelet count of 134,000 with a chem metabolic panel showing a calcium of 8.0 with a ma gnesium of 2.5, alkaline phosphatase 135. Otherwise, normal chem metabolic panel. DISCHARGE MEDICATIONS: Include Ativan 0.5 mg q. 8 hours p.r.n. anxiety, Colace 100 mg twice a day, M iraLax 17 grams once a day, morphine sulfate 15 mg extended release 1 q. 12 for severe pain, Zofran 4 mg p.o. daily for 3 days, Compazine 10 mg p.o. q. 8 hours also for 3 days then p.r.n. as will the Zo mirian be p.r.n. Mycostatin swish and swallow 4 times a day for 7 days. With this, we will discontinu e her Decadron. We will continue, however, her proton pump inhibitor along with a full liquid diet. ASSESSMENT: For this patient is that of stricture to the rectosigmoid, stage IV cancer of the colon with recurrence, on radiation with chemotherapy begun, questionable cauda equina syndrome. Salazar cat heter in situ. GERD, urinary tract infection. PLAN: After conversation with Dr. Hendricks, we will discharge the patient home with recommendations a s above. We will also continue her leg bag. She is to follow up in the office in 2-3 days' time. S he is to continue radiation tomorrow for 5 days, Saturday through Saturday, with resumption of chemothera py in the outpatient clinic in 2 weeks' time. This was already called to the oncology nurse with the patient to eventually followup with Dr. Grant as an outpatient urology should it be necessary. Her labs from today included white blood cell count of 7.9, hemoglobin 12.2, hematocrit 35.7, platele t count of 134,000 with a chem metabolic panel as described above. Tomasz Winters MD cc: 411 TT: 09/23/2016 20:17:51 mark
--- NOTE | 2016-09-23 23:04 | PN ---
DATE: 09/23/2016 ADDENDUM: This is an addendum to the GI progress report. SUBJECTIVE: This patient was seen and evaluated today. Discussed with Dr. Tomasz Winters. PHYSICAL EXAMINATION: GENERAL: The patient is lying on the bed, not in acute distress. VITAL SIGNS: Temperature is 98.5, pulse 68, blood pressure is 147/92, O2 saturation 97. HEENT: Atraumatic, anicteric. NECK: Supple. HEART: S1, S2 heard. LUNGS: Bilateral air entry present. ABDOMEN: Soft. There is no mass palpable. EXTREMITIES: No tenderness. LABORATORY DATA: Hemoglobin 12.2, hematocrit 35.7, WBC 7.9, platelets 134. Chemistry is alkaline ph osphatase 135. IMPRESSION: This is a 61-year-old patient with a history of sigmoid stricture secondary to metastati c infiltration. History of rectosigmoid cancer colon cancer, status post lower anterior resection at the present time. PLAN: Will continue the full liquid diet. The patient has been on narcotics for pain relief. Would recommend to increase the MiraLax to twice a day to keep the bowel movements on the softer side. Co ntinue to follow up the patient. The patient is status post radiation and chemo now. Plan to be dis charged at the time of examination. Advised to continue the oncology followup. The patient has a hi atal hernia, . Continue the PPI. Thank you very much for allowing us to participate in the care of the patient. Tong Null MD cc: [id number] TT: 09/23/2016 23:03:46 Confirmation # [id number] Dictation # [id number] mn
--- NOTE | 2016-09-24 09:03 | PN ---
DATE: 09/21/2016 Seen and examined at the bedside earlier today. The patient is currently getting chemotherapy and she got last night. She tolerated well she states. No reports of any fever or acute overnight events. She went for radiation and complained of abdominal cramps and increased belching when lying flat. No reports of any bowel movement. She is tolerating the full liquids. No nausea or vomiting. VITAL SIGNS: Temperature is 98.4, blood pressure 148/84, pulse 68, respirations 17, 95 on room air. LABORATORY DATA: WBC 7.2, H and H are 11.4 and 33.4, platelets are 175. Sodium 136, K 4.0, BUN 11, creatinine is 0.5. Her mag is 2.5. LFTs: Total bilirubin is 0.3, AST 18, ALT 33, alkaline phosphatase is 154. PHYSICAL EXAMINATION: HEENT: Sclerae are anicteric. NECK: Supple. CARDIAC: S1, S2. LUNG SOUNDS: Clear. ABDOMEN: With bowel sounds. Soft. mild tenderness. no rebound or guarding. EXTREMITIES: No edema. NEUROLOGIC: Awake, alert, oriented. ASSESSMENT: The patient is a 61-year-old female with stage IV colon cancer, status post colonoscopy, found to have sigmoid obstructing lesion. The patient is status post barium enema reporting severe stenosis in the rectosigmoid junction, could represent recurrent neoplasm or anastomotic stricture. Sacral lesion, retroperitoneal lymphadenopathy. The patient with gastroesophageal reflux disease and status post fever. PLAN: Continue full liquid diet. Now patient is getting radiation and chemotherapy. Is on Decadron, on stool softener, on IV antibiotics of meropenem , morphine for pain, on Protonix and also on vancomycin. The patient is also being followed by oncology, surgery, ID, neuro, and urology. The patient was seen and case discussed with Dr. Null. Yoana IQBAL cc: [id number] TT: 09/21/2016 13:06:39 Confirmation # [id number] Dictation # [id number] mn MTDD
== END 2016-09-23 16:05 | disposition home or self-care (01) | DRG 172 ==
LOC: ED 12:53 → EROBSV 15:31 → OBSVTOIN 23:26 → ERH 23:52 → 3RNO 09-15 01:05
PROVIDERS: ADMIT Emergency Medicine; ATTEND Family Medicine
PROC: 0JH63XZ Insertion of Tunneled Vascular Access Device into Chest Subcutaneous Tissue and Fascia, Percutaneous Approach (ICD-10-PCS; 2016-09-17)
PROC: 3E04305 Introduction of Other Antineoplastic into Central Vein, Percutaneous Approach (ICD-10-PCS; 2016-09-18)
PROC: 0DB58ZX Excision of Esophagus, Via Natural or Artificial Opening Endoscopic, Diagnostic (ICD-10-PCS; 2016-09-18)
PROC: 0DB68ZX Excision of Stomach, Via Natural or Artificial Opening Endoscopic, Diagnostic (ICD-10-PCS; 2016-09-18)
PROC: 0DBN8ZX Excision of Sigmoid Colon, Via Natural or Artificial Opening Endoscopic, Diagnostic (ICD-10-PCS; principal; 2016-09-18 12:00)
PROC: DP081ZZ Beam Radiation of Pelvic Bones using Photons 1 - 10 MeV (ICD-10-PCS; 2016-09-19)
DX: C18.7 Malignant neoplasm of sigmoid colon (principal); C79.51 Secondary malignant neoplasm of bone; C78.6 Secondary malignant neoplasm of retroperitoneum and peritoneum; N39.0 Urinary tract infection, site not specified; G83.4 Cauda equina syndrome; F41.9 Anxiety disorder, unspecified; K21.0 Gastro-esophageal reflux disease with esophagitis; K44.9 Diaphragmatic hernia without obstruction or gangrene; K29.70 Gastritis, unspecified, without bleeding; R59.0 Localized enlarged lymph nodes; F32.9 Major depressive disorder, single episode, unspecified; K64.8 Other hemorrhoids; Z85.048 Personal history of other malignant neoplasm of rectum, rectosigmoid junction, and anus; Z90.49 Acquired absence of other specified parts of digestive tract

== ENCOUNTER 2016-10-06 18:10 | Emergency (ER) | payer MEDICAID ==
[2016-10-06 18:11] VITALS: BMI 23.1
[2016-10-06 18:19] VITALS: RESP 18; TEMP 98.6
[2016-10-06] MEDS ORDERED: Sodium Chloride 0.9% 1,000 ML IV STA (18:27)
--- NOTE | 2016-10-06 18:29 | ED PDOC ---
Arrival/HPI - General Chief Complaint: GI Problem Time Seen by Provider: 10/06/16 18:12 Historian: Patient - History of Present Illness Narrative History of Present Illness (Text): 10/06/16 18:29 61yo female with PMHx of Colon CA, currently on Chemo referred to ED by her PMD for hydration. Patient states she started having diarrhea yesterday. The last time she had diarrhea was yesterday. Had Chemo yesterday. States she was told by her PMD to come to the ED for hydration. She is able to tolerate fluid. + Nausea. Denies vomiting, abdominal pain, urinary symptoms, dizziness, chest pain , SOB, any other complaint. Past Medical History - Provider Review Nursing Documentation Reviewed: Yes - Past History Past History: No Previous - Infectious Disease Hx of Infectious Diseases: None - Tetanus Immunization Tetanus Immunization: Unknown - Reproductive Menopause: Yes - Cardiac Hx Cardiac Disorders: Yes Hx Hypertension: Yes - Pulmonary Hx Respiratory Disorders: No - Neurological Hx Neurological Disorder: No - HEENT Hx HEENT Disorder: Yes (Contacts/glasses) - Renal Hx Renal Disorder: No - Endocrine/Metabolic Hx Endocrine Disorders: No - Hematological/Oncological Hx Blood Disorders: Yes Hx Cancer: Yes (Colon/Basil CA) Hx Metastasis: Yes - Integumentary Hx Basal Cell Carcinoma: Yes (Basil cell ca in past) - Musculoskeletal/Rheumatological Hx Musculoskeletal Disorders: Yes Hx Back Pain: Yes Hx Falls: No - Gastrointestinal Hx Gastrointestinal Disorders: Yes Hx Gastroesophageal Reflux: Yes Other/Comment: Colon CA, colectomy 2015, IBS, Constipation - Genitourinary/Gynecological Hx Genitourinary Disorders: Yes Hx Urinary Tract Infection: Yes - Psychiatric Hx Psychophysiologic Disorder: Yes Hx Anxiety: Yes Hx Substance Use: No - Past Surgical History Past Surgical History: No Previous - Surgical History Other/Comment: lesion remove from chest wall - Anesthesia Hx Anesthesia Reactions: No Hx Malignant Hyperthermia: No - Suicidal Assessment Feels Threatened In Home Enviroment: No Family/Social History - Physician Review Nursing Documentation Reviewed: Yes Family/Social History: Unknown Family HX Smoking Status: Never Smoked Hx Alcohol Use: No Hx Substance Use: No Hx Substance Use Treatment: No Allergies/Home Meds Allergies/Adverse Reactions: Allergies epinephrine Allergy (Intermediate, Verified 10/06/16 18:13) PALPITATIONS PALPITATIONS caffeine Allergy (Verified 10/06/16 18:13) PALPITATIONS IV CONTRAST Allergy (Severe, Uncoded 10/06/16 18:13) SHORTNESS OF BREATH PALPITATIONS CAF Allergy (Intermediate, Uncoded 10/06/16 18:13) PALPITATIONS Home Medications: Home Meds Medication Instructions Recorded Confirmed Lactobacillus Combination No.8 1 tab PO DAILY 10/03/16 10/06/16 [Adult Probiotic] Morphine Sulfate [Morphine Sulfate 15 mg PO Q12 10/03/16 10/06/16 ER] Omeprazole 20 mg PO DAILY 10/03/16 10/06/16 Prochlorperazine [Compazine] 10 mg PO Q8 PRN 10/03/16 10/06/16 Review of Systems - Physician Review All systems were reviewed & negative as marked: Yes - Review of Systems Constitutional: Normal Eyes: Normal ENT: Normal Respiratory: Normal Cardiovascular: Normal Gastrointestinal: Diarrhea. absent: Abdominal Pain, Constipation, Nausea, Vomiting Genitourinary Female: Normal Musculoskeletal: Normal Skin: Normal Neurological: Normal Endocrine: Normal Hemo/Lymphatic: Normal Psychiatric: Normal Physical Exam Vital Signs Reviewed: Yes Vital Signs Temp Pulse Resp BP Pulse Ox 10/06/16 20:30 91 H 18 135/76 97 10/06/16 18:21 98.6 F 98 H 18 143/80 96 10/06/16 18:15 98.6 F 98 H 18 143/80 98 Temperature: Afebrile Blood Pressure: Normal Pulse: Regular Respiratory Rate: Normal Appearance: Positive for: Well-Appearing, Non-Toxic, Comfortable Pain Distress: None Mental Status: Positive for: Alert and Oriented X 3 - Systems Exam Head: Present: Atraumatic, Normocephalic Pupils: Present: PERRL Extroacular Muscles: Present: EOMI Conjunctiva: Present: Normal Mouth: Present: Moist Mucous Membranes Neck: Present: Normal Range of Motion Respiratory/Chest: Present: Clear to Auscultation, Good Air Exchange. No: Respiratory Distress, Accessory Muscle Use Cardiovascular: Present: Regular Rate and Rhythm, Normal S1, S2. No: Murmurs Abdomen: Present: Normal Bowel Sounds, Other (Soft). No: Tenderness, Distention , Peritoneal Signs, Rebound, Guarding, McBurney's Point Tender, Rovsing's Sign Present Back: Present: Normal Inspection Upper Extremity: Present: Normal Inspection. No: Cyanosis, Edema Lower Extremity: Present: Normal Inspection. No: Edema Neurological: Present: GCS=15, CN II-XII Intact, Speech Normal Skin: Present: Warm, Dry, Normal Color. No: Rashes Psychiatric: Present: Alert, Oriented x 3, Normal Insight, Normal Concentration Medical Decision Making ED Course and Treatment: 10/06/16 23:51 Pt presented for stated history. She was comfortable in ED. Her abdominal PE was benign. Her lab was reviewed. she was hydrated and potassium was hydrated. Result was DW the pt and she was referred to her PMD. - Lab Interpretations Lab Results: 10/06/16 18:50 10/06/16 18:50 Lab Results 10/06/16 18:50: Sodium 132, Potassium 3.4 L, Chloride 100, Carbon Dioxide 26, Anion Gap 9 L, BUN 12, Creatinine 0.6, Est GFR ( Amer) > 60, Est GFR (Non -Af Amer) > 60, Random Glucose 96, Calcium 8.0 L, Total Bilirubin 0.9, AST 28, ALT 81 H, Alkaline Phosphatase 101, Total Protein 6.2, Albumin 3.3, Globulin 3.0 , Albumin/Globulin Ratio 1.1, Lipase 263 10/06/16 18:50: PT 12.7 H, INR 1.18 H, APTT 24.4 10/06/16 18:50: WBC 0.5 L* D, RBC 4.24, Hgb 12.4, Hct 35.3 L, MCV 83.3, MCH 29.2 , MCHC 35.1, RDW 14.7 H, Plt Count 75 L, MPV 10.3, Gran % 42.5 L, Lymph % (Auto ) 29.8, [place] % (Auto) 4.3, Eos % (Auto) 23.4 H, Baso % (Auto) 0.0, Gran # 0.20 L , Lymph # 0.1 L, [place] # 0.0 L, Eos # 0.1, Baso # 0.00 - Medication Orders Current Medication Orders: Discontinued Medications Sodium Chloride (Sodium Chloride 0.9%) 1,000 mls @ 1,000 mls/hr IV .Q1H STA Stop: 10/06/16 19:26 Last Admin: 10/06/16 18:57 Dose: 1,000 mls/hr Potassium Chloride (K-Dur 20 Meq Er Tab) 20 meq PO STAT STA Stop: 10/06/16 20:34 Last Admin: 10/06/16 21:19 Dose: 20 meq Disposition/Present on Arrival - Present on Arrival Any Indicators Present on Arrival: No History of DVT/PE: No History of Uncontrolled Diabetes: No Urinary Catheter: Yes History of Decub. Ulcer: No History Surgical Site Infection Following: None - Disposition Have Diagnosis and Disposition been Completed?: Yes Diagnosis: Diarrhea Disposition: HOME/ ROUTINE Disposition Time: 20:50 Patient Plan: Discharge Condition: STABLE Discharge Instructions (ExitCare): Acute Diarrhea (ED) Additional Instructions: Follow up with your Doctor Return to ED for any new or worsening symptoms Referrals: Stephen Adams MD [Primary Care Provider] - Follow up with primary
[2016-10-06 19:30] LABS: ALB/GLOB RATIO 1.1 (1.1-1.8); ALKALINE PHOSPHATASE 101 U/L (38-133); ALT/SGPT 81 U/L (7-56); AST/SGOT 28 U/L (15-39); BILIRUBIN,TOTAL 0.9 mg/dL (0.2-1.3); BLOOD UREA NITROGEN 12 mg/dL (7-21); CARBON DIOXIDE 26 mmol/L (21-33); CHLORIDE 100 mmol/L (98-107); GFR AFRICAN-AMERICAN > 60; GLUCOSE,RANDOM 96 mg/dL (70-110); LIPASE 263 U/L (23-300); POTASSIUM 3.4 mmol/L (3.6-5.0); SODIUM 132 mmol/L (132-148); TOTAL PROTEIN 6.2 g/dL (5.8-8.3)
[2016-10-06 19:44] LABS: INR 1.18 (0.93-1.08); PARTIAL THROMBOPLASTIN TIME 24.4 Seconds (23.7-30.8)
[2016-10-06] MEDS ORDERED: Potassium Chloride 20 mEq ER Tab PO STA (20:33)
[2016-10-06 20:42] LABS: EOS # 0.1 (0.0-0.7); EOS % 23.4 % (1.5-5.0); GRAN % 42.5 % (50.0-68.0); LYMPH # 0.1 (1.2-3.4); LYMPH % 29.8 % (22.0-35.0); MEAN CELL VOLUME 83.3 fL (80.0-105.0); MEAN CORPUSCULAR HEMOGLOBIN 29.2 pg (25.0-35.0); MEAN CORPUSCULAR HGB CONC 35.1 g/dl (31.0-37.0); MEAN PLATELET VOLUME 10.3 fl (7.0-11.0); MONO % 4.3 % (1.0-6.0); PLATELET COUNT 75 10^3/uL (120.0-450.0); RED CELL DISTRIBUTION WIDTH 14.7 % (11.5-14.5)
[2016-10-06 20:47] LABS: WHITE BLOOD COUNT 0.5 10^3/ul (4.5-11.0)
[2016-10-06 20:48] LABS: ADD MANUAL DIFF? NO; HEMATOCRIT 35.3 % (36.0-48.0)
[2016-10-06 21:31] VITALS: BP 135/76; PULSE 91; O2SAT 97
== END 2016-10-06 21:25 | disposition home or self-care (01) ==
LOC: ED 18:10
DX: R19.7 Diarrhea, unspecified (principal); Z85.038 Personal history of other malignant neoplasm of large intestine; Z90.49 Acquired absence of other specified parts of digestive tract
CPT/HCPCS: 80053; 83690; 85025; 85610; 85730; 99284; J7040

== ENCOUNTER 2016-10-09 10:42 | Inpatient (IN) | payer MEDICAID ==
[2016-10-09] MEDS ORDERED: Sodium Chloride 0.9% 1,000 ML IV STA ×3 (11:46→14:46)
--- NOTE | 2016-10-09 11:50 | ED PDOC ---
Arrival/HPI - General Chief Complaint: GI Problem Time Seen by Provider: 10/09/16 10:53 Historian: Patient - Critical Care Critical Care Minutes: 45 minutes - History of Present Illness Narrative History of Present Illness (Text): 10/09/16 11:47 61 y.o. female whose PMHx includes Stage IV Colon CA with possible cauda equina syndrome with indwelling Salazar Catheter whose last chemotherapy was 4 days ago. Patient was recently hospitalized where she received IV antibiotics. She is here in the ED with severe nonbloody diarrhea x 2 days associated with generalized weakness. She endorses mild abdominal cramping with some nausea but no vomiting. She is tolerating minimal liquids but no solids. No chest pain or shortness of breathing. Time/Duration: < week Past Medical History - Past History Past History: No Previous - Infectious Disease Hx of Infectious Diseases: None - Tetanus Immunization Tetanus Immunization: Unknown - Cardiac Hx Cardiac Disorders: Yes Hx Hypertension: Yes - Pulmonary Hx Respiratory Disorders: No - Neurological Hx Neurological Disorder: No - HEENT Hx HEENT Disorder: Yes (Contacts/glasses) - Renal Hx Renal Disorder: No - Endocrine/Metabolic Hx Endocrine Disorders: No - Hematological/Oncological Hx Blood Disorders: Yes Hx Cancer: Yes (Colon/Basil CA) Hx Metastasis: Yes - Integumentary Hx Basal Cell Carcinoma: Yes (Basil cell ca in past) - Musculoskeletal/Rheumatological Hx Musculoskeletal Disorders: Yes Hx Back Pain: Yes Hx Falls: No - Gastrointestinal Hx Gastrointestinal Disorders: Yes Hx Gastroesophageal Reflux: Yes Other/Comment: Colon CA, colectomy 2015, IBS, Constipation - Genitourinary/Gynecological Hx Genitourinary Disorders: Yes Hx Urinary Tract Infection: Yes - Psychiatric Hx Psychophysiologic Disorder: Yes Hx Anxiety: Yes Hx Substance Use: No - Past Surgical History Past Surgical History: No Previous - Surgical History Other/Comment: lesion remove from chest wall - Anesthesia Hx Anesthesia Reactions: No Hx Malignant Hyperthermia: No - Suicidal Assessment Feels Threatened In Home Enviroment: No Family/Social History - Physician Review Nursing Documentation Reviewed: Yes Family/Social History: No Known Family HX Smoking Status: Never Smoked Hx Alcohol Use: No Hx Substance Use: No Hx Substance Use Treatment: No Allergies/Home Meds Allergies/Adverse Reactions: Allergies epinephrine Allergy (Intermediate, Verified 10/06/16 18:13) PALPITATIONS PALPITATIONS caffeine Allergy (Verified 10/06/16 18:13) PALPITATIONS IV CONTRAST Allergy (Severe, Uncoded 10/06/16 18:13) SHORTNESS OF BREATH PALPITATIONS CAF Allergy (Intermediate, Uncoded 10/06/16 18:13) PALPITATIONS Home Medications: Home Meds Medication Instructions Recorded Confirmed Lactobacillus Combination No.8 1 tab PO DAILY 10/03/16 10/09/16 [Adult Probiotic] Morphine Sulfate [Morphine Sulfate 15 mg PO Q12 10/03/16 10/09/16 ER] Omeprazole 20 mg PO DAILY 10/03/16 10/09/16 Prochlorperazine [Compazine] 10 mg PO Q8 PRN 10/03/16 10/09/16 Review of Systems - Review of Systems Constitutional: Fatigue. absent: Fevers Respiratory: absent: SOB, Cough Cardiovascular: absent: Chest Pain, Palpitations Gastrointestinal: Diarrhea, Nausea, Appetite Changes, Other (Abdominal Cramping) . absent: Constipation, Vomiting, Hematochezia, Hematemesis Genitourinary Female: Other (Salazar in place) Musculoskeletal: Neck Pain (has metastasis to bone) Skin: Normal Neurological: absent: Headache, Dizziness Endocrine: Normal Hemo/Lymphatic: Normal Psychiatric: Normal Physical Exam Vital Signs Temp Pulse Resp BP Pulse Ox 10/09/16 15:04 126 H 16 97/69 L 100 10/09/16 14:27 127 H 18 87/61 L 100 10/09/16 13:31 130 H 20 94/76 L 100 10/09/16 13:23 132 H 181 H 88/67 L 100 10/09/16 12:08 147 H 18 97/52 L 94 L 10/09/16 11:09 98.5 F 159 H 18 95/58 L 96 Temperature: Afebrile Blood Pressure: Hypotensive Pulse: Tachycardic Respiratory Rate: Normal Appearance: Positive for: Ill-Appearing Pain Distress: None Mental Status: Positive for: Alert and Oriented X 3 - Systems Exam Head: Present: Atraumatic, Normocephalic Pupils: Present: PERRL Conjunctiva: Present: Normal Mouth: Present: Dry Pharnyx: Present: Normal. No: ERYTHEMA, EXUDATE Neck: Present: Normal Range of Motion Respiratory/Chest: Present: Clear to Auscultation, Good Air Exchange. No: Respiratory Distress, Accessory Muscle Use Cardiovascular: Present: Normal S1, S2, Tachycardic. No: Murmurs Abdomen: Present: Normal Bowel Sounds. No: Tenderness, Distention, Peritoneal Signs Back: Present: Normal Inspection Upper Extremity: Present: Normal Inspection. No: Cyanosis, Edema Lower Extremity: Present: Normal Inspection. No: Edema Neurological: Present: GCS=15, CN II-XII Intact, Speech Normal Skin: Present: Warm, Dry, Normal Color. No: Rashes Psychiatric: Present: Alert, Oriented x 3, Normal Insight, Normal Concentration Medical Decision Making ED Course and Treatment: 10/09/16 11:51 61 y.o. female with advanced colon CA, s/p chemo with dehydration and diarrhea Differential: Chemo side effect vs. other colitis vs. C.diff Plan: - IVF - Labs - Famotidine, Zofran 10/09/16 12:29 Case was discussed with Dr. Hendricks, who requested Dr. Null to assess the patient. 10/09/16 13:10 Patient's lactic acid came back 4.8; other labs are still pending. Code Sepsis called on patient. 10/09/16 13:[address] Null, who advised to get an abdomen and pelvis CT for patient. 10/09/16 14:15 Patient's labs came back showing severe neutropenia and creatinine rise of to 3.5 from normal creatinine level. She is hypotensive with SBP at 81 and findings are consistent with neutropenic sepsis. Patient has already been given abx (initial zosyn dose was before creatinine came back, so it will need to be renal dosed). Flagyl added for possible C.diff. Case discussed with Dr. Hendricks for admission on his service. Case also discussed with Dr. Estes for admissison to the ICU. - Lab Interpretations Lab Results: 10/09/16 12:01 10/09/16 13:00 Lab Results 10/09/16 13:00: Sodium 127 L, Potassium 4.1, Chloride 96 L, Carbon Dioxide 17 L , Anion Gap 18, BUN 59 H, Creatinine 3.5 H, Est GFR ( Amer) 16, Est GFR ( Non-Af Amer) 13, Random Glucose 139 H, Calcium 8.1 L, Total Bilirubin 2.3 H, AST 31, ALT 44, Alkaline Phosphatase 57, Lactate Dehydrogenase 510, Total Creatine Kinase 26 L, Troponin I 0.04 D, Total Protein 5.1 L, Albumin 2.4 L, Globulin 2.6, Albumin/Globulin Ratio 0.9 L, Amylase < 30 L, Lipase < 10 L 10/09/16 12:30: Lactic Acid 4.8 H* 10/09/16 12:01: PT 31.5 H*, INR 2.92 H, APTT 39.9 H 10/09/16 12:01: WBC 0.2 L* D, RBC 4.78, Hgb 13.3, Hct 37.3, MCV 78.0 L, MCH 27.8 , MCHC 35.7, RDW 15.1 H, Plt Count 24 L*, Gran % 16.7 L, Lymph % (Auto) 50.0 H, [place] % (Auto) 11.1 H, Eos % (Auto) 22.2 H, Baso % (Auto) 0.0, Gran # 0.03 L, Lymph # 0.1 L, [place] # 0.0 L, Eos # 0.0, Baso # 0.00, Platelet Evaluation Low - RAD Interpretation Radiology Orders: 10/09/16 11:45 CHEST PORTABLE [RAD] Stat 10/09/16 12:32 ABD 2 VIEWS (FLAT/UP OR DECUB) [RAD] Stat 10/09/16 13:58 ABD & PELVIS W/O PO OR IV CONT [CT] Stat - EKG Interpretation EKG Interpretation (Text): 10/09/16 11:53 sinus tachycardia @ 160; normal intervals; normal axis; nonspecific T wave changes not present on 05/31/14. Interpreted by ED Physician: Yes Type: 12 lead EKG Comparison: Different from prev. EKG - Medication Orders Current Medication Orders: Sodium Bicarbonate 150 meq/ (Dextrose) 1,150 mls @ 150 mls/hr IV .Q7H40M [id number] Discontinued Medications Famotidine (Pepcid) 20 mg IVP STAT STA Stop: 10/09/16 11:46 Last Admin: 10/09/16 12:10 Dose: 20 mg Sodium Chloride (Sodium Chloride 0.9%) 1,000 mls @ 999 mls/hr IV .Q1H1M STA Stop: 10/09/16 12:46 Last Admin: 10/09/16 12:10 Dose: 999 mls/hr Sodium Chloride (Sodium Chloride 0.9%) 1,000 mls @ 999 mls/hr IV .Q1H1M STA Stop: 10/09/16 14:13 Last Admin: 10/09/16 13:16 Dose: 999 mls/hr Vancomycin HCl 1 gm/ Sodium (Chloride) 250 mls @ 133.333 mls/hr IV STAT STA PRN Reason: Protocol Stop: 10/09/16 15:14 Piperacillin Sod/Tazobactam Sod (Zosyn 3.375 In Ns 100ml) 100 mls @ 200 mls/hr IVPB STAT STA PRN Reason: Protocol Stop: 10/09/16 13:52 Last Admin: 10/09/16 13:38 Dose: 200 mls/hr Vancomycin HCl (Vancomycin 1gm) 1 gm in 250 mls @ 133.333 mls/hr IVPB STAT STA PRN Reason: Protocol Stop: 10/09/16 15:14 Last Admin: 10/09/16 14:11 Dose: 133.333 mls/hr Metronidazole (Flagyl) 500 mg in 100 mls @ 100 mls/hr IVPB STAT STA PRN Reason: Protocol Stop: 10/09/16 14:55 Sodium Chloride (Sodium Chloride 0.9%) 1,000 mls @ 999 mls/hr IV .Q1H1M STA Stop: 10/09/16 15:46 Ondansetron HCl (Zofran Inj) 4 mg IVP STAT STA Stop: 10/09/16 11:46 Last Admin: 10/09/16 12:10 Dose: 4 mg Disposition/Present on Arrival - Present on Arrival Any Indicators Present on Arrival: Yes History of DVT/PE: No History of Uncontrolled Diabetes: No Urinary Catheter: Yes History Surgical Site Infection Following: None - Disposition Have Diagnosis and Disposition been Completed?: Yes Diagnosis: Diarrhea, Metastasis from colon cancer, Neutropenic sepsis, Renal failure Disposition: HOSPITALIZED Disposition Time: 14:00 Patient Plan: Admission, ICU Condition: CRITICAL
[2016-10-09 12:41] LABS: PARTIAL THROMBOPLASTIN TIME 39.9 Seconds (23.7-30.8)
[2016-10-09 12:55] LABS: INR 2.92 (0.93-1.08)
[2016-10-09 12:58] LABS: PROTHROMBIN TIME 31.5 Seconds (9.9-11.8)
[2016-10-09] MEDS ORDERED: Piperacillin/Tazobact 3.375 gm 100 ML IVPB STA (13:23)
[2016-10-09 13:25] LABS: ALB/GLOB RATIO 0.9 (1.1-1.8); ALBUMIN 2.4 g/dL (3.0-4.8); ALT/SGPT 44 U/L (7-56); AST/SGOT 31 U/L (15-39); BLOOD UREA NITROGEN 59 mg/dL (7-21); CALCIUM 8.1 mg/dL (8.4-10.5)
[2016-10-09 13:30] LABS: GFR AFRICAN-AMERICAN 16; GFR NON-AFRICAN AMERICAN 13
[2016-10-09 13:32] LABS: EOS % 22.2 % (1.5-5.0); GRAN # 0.03 (1.4-6.5); GRAN % 16.7 % (50.0-68.0); HEMOGLOBIN 13.3 gm/dL (12.0-16.0); LYMPH # 0.1 (1.2-3.4); MEAN CORPUSCULAR HEMOGLOBIN 27.8 pg (25.0-35.0); MEAN CORPUSCULAR HGB CONC 35.7 g/dl (31.0-37.0); MONO % 11.1 % (1.0-6.0); RBC 4.78 10^6/uL (3.5-6.1); RED CELL DISTRIBUTION WIDTH 15.1 % (11.5-14.5)
[2016-10-09 13:35] LABS: AMYLASE < 30 U/L (35-125); LIPASE < 10 U/L (23-300); TROPONIN I 0.04 ng/mL
[2016-10-09] MEDS ORDERED: Vancomycin 1gm in NS 250ml 1 GM/250 ML BAG IVPB STA (13:39)
--- NOTE | 2016-10-09 13:44 | RAD ---
HISTORY: generalized weakness COMPARISON: 09/18/2016 FINDINGS: LUNGS: No active pulmonary disease. PLEURA: No significant pleural effusion identified, no pneumothorax apparent. CARDIOVASCULAR: Normal. OSSEOUS STRUCTURES: No significant abnormalities. VISUALIZED UPPER ABDOMEN: Normal. OTHER FINDINGS: None. IMPRESSION: No active disease.
[2016-10-09] MEDS ORDERED: metroNIDAZOLE IV 500 mg/100 ml 500 MG/100 ML BAG IVPB STA (13:56)
[2016-10-09 13:58] LABS: PLATELET COUNT 24 10^3/uL (120.0-450.0); WHITE BLOOD COUNT 0.2 10^3/ul (4.5-11.0)
[2016-10-09 14:06] LABS: PLATELET ESTIMATE LOW (NORMAL)
--- NOTE | 2016-10-09 15:03 | PCM.SEPTIC ---
Sepsis Progress Note - Reassessment Type Reassessment Type: Non-invasive reassessment - Non Invasive Reassessment Were the most recent vital sign reviewed: Yes Vital Sign (Latest): Temp Pulse Resp BP Pulse Ox 98.5 F 127 H 18 87/61 L 100 10/09/16 11:09 10/09/16 14:27 10/09/16 14:27 10/09/16 14:27 10/09/16 14:27 Cardiovascular: Yes: Tachycardia Respiratory: Yes: Normal Breath Sounds Capillary Refill: Delayed Pulses: Decreased Radial, Decreased Dorsalis Pedis, Decreased Posterior Tibialis Skin: Dry
[2016-10-09 16:01] VITALS: BMI 23.0
[2016-10-09] MEDS: Sodium Bicarbonate 8.4% 150 MEQ in Dextrose 5% In Water 1,000 ML IV SCH (16:20)
--- NOTE | 2016-10-09 16:25 | CT ---
PROCEDURE: CT Abdomen and Pelvis without intravenous contrast HISTORY: diarrhea - r/o abscess COMPARISON: None. TECHNIQUE: Without contrast.. Contrast Dose: Radiation dose: Total exam DLP = 400 mGy-cm. This CT exam was performed using one or more of the following dose reduction techniques: Automated exposure control, adjustment of the mA and/or kV according to patient size, and/or use of iterative reconstruction technique. FINDINGS: LOWER THORAX: Unremarkable. LIVER: There is an 18 mm cyst in the right lobe of the liver. This is unchanged. The liver is otherwise unremarkable GALLBLADDER AND BILE DUCTS: Unremarkable. PANCREAS: Unremarkable. No gross lesion or ductal dilatation. SPLEEN: Unremarkable. ADRENALS: Unremarkable. No mass. KIDNEYS AND URETERS: Unremarkable. No hydronephrosis. No solid mass. VASCULATURE: Unremarkable. No aortic aneurysm. BOWEL: Mural thickening is seen throughout the small bowel. There is also mild small bowel dilatation. Findings are consistent with enteritis or inflammatory bowel disease. There is some mesenteric stranding in the left upper quadrant. The colon is unremarkable. APPENDIX: Unremarkable. Normal appendix. PERITONEUM: Unremarkable. No free fluid. No free air. LYMPH NODES: Unremarkable. No enlarged lymph nodes. BLADDER: Unremarkable. REPRODUCTIVE: Unremarkable. BONES: There is a lytic lesion in the right sacral ala which was identified previously. OTHER FINDINGS: None. IMPRESSION: Mural thickening throughout the small bowel and mild small bowel dilatation and mesenteric stranding. Findings consistent with enteritis. Metastatic lesion in the right side of the sacrum
[2016-10-09] MEDS: Meropenem 1g/NS 100mL IVPB 1 GM/100 ML PIGGYBACK IVPB SCH ×2 (16:49→21:52)
[2016-10-09 16:55] LABS: VENOUS BLOOD GAS BASE EXCESS -5.1 mmol/L (0.0-2.0); VENOUS BLOOD GAS PO2 14 mm/Hg (30-55); VENOUS BLOOD PH 7.27 (7.32-7.43)
[2016-10-09] MEDS: Vancomycin 25 MG/ML PO SCH ×2 (17:09→21:54)
[2016-10-09 17:49] LABS: CALCIUM 7.3 mg/dL (8.4-10.5)
[2016-10-09 17:50] LABS: LYMPH # 0.1 (1.2-3.4); LYMPH % 54.5 % (22.0-35.0); MEAN CELL VOLUME 92.1 fL (80.0-105.0); MEAN CORPUSCULAR HEMOGLOBIN 71.1 pg (25.0-35.0); MEAN CORPUSCULAR HGB CONC 77.1 g/dl (31.0-37.0); MONO % 18.2 % (1.0-6.0); RBC 1.52 10^6/uL (3.5-6.1); RED CELL DISTRIBUTION WIDTH 19.7 % (11.5-14.5)
[2016-10-09 17:58] LABS: WHITE BLOOD COUNT 0.1 10^3/ul (4.5-11.0)
[2016-10-09 17:59] LABS: PLATELET COUNT 15 10^3/uL (120.0-450.0)
[2016-10-09 19:05] LABS: URINE BILIRUBIN MODERATE (NEGATIVE); URINE BLOOD LARGE (NEGATIVE); URINE COLOR YELLOW (YELLOW); URINE GLUCOSE (UA) NEGATIVE (NEGATIVE); URINE LEUKOCYTE ESTERASE TRACE Leu/uL (NEGATIVE); URINE NITRATE POSITIVE (NEGATIVE); URINE PROTEIN >=300 mg/dL (<30 mg/dL)
[2016-10-09 19:06] LABS: URINE APPEARANCE CLOUDY (CLEAR)
[2016-10-09 19:07] LABS: URINE RBC 25 - 30 /hpf (0-2); URINE WBC TNTC /hpf (0-6)
[2016-10-09 19:10] LABS: URINE BACTERIA MANY (NEG)
[2016-10-09 19:17] LABS: URINE AMORPHOUS SEDIMENT FEW
[2016-10-09] MEDS: Sodium Chloride 0.9% 1,000 ML IV SCH ×2 (19:47→20:34)
[2016-10-09] MEDS: Morphine 2 mg/ml ISec IVP PRN (21:56)
[2016-10-09 23:10] LABS: VENOUS BLOOD GAS BASE EXCESS -0.5 mmol/L (0.0-2.0); VENOUS BLOOD GAS PO2 125 mm/Hg (30-55); VENOUS BLOOD PH 7.37 (7.32-7.43)
--- NOTE | 2016-10-09 23:29 | HP ---
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 She showed in the ER on Saturday where she got the Neulasta and got IV hydration and started having sign ificant diarrhea, went home and then came in through the ER again today feeling very weak with severe nonbloody diarrhea for 2 days associated with profound weakness. She endorses mild abdominal crampi ng with nausea but no vomiting. She is tolerating minimal fluids by mouth, but no solids. The manuelito diaz denies any history of chest pain, shortness of breath. PAST MEDICAL HISTORY: Significant for the fact that in 2014 she was diagnosed to have stage III colo n carcinoma with progressive left lower quadrant pain, blood in the stool, was found to have a rectosigmoid lesion, was admitted, had surgical resection, found to have node positive disease and of fered systemic chemotherapy. The patient refused and more recently beginning of this year, the manuelito diaz was noted to have a rising CA, saw her primary medical doctor and was referred to us. She had to do a lot of coaxing and also had to fight with insurance to get scans done on her, and finally, the w orkup revealed retroperitoneal nodes and a cyst in the liver. The biopsy of the retroperitoneal node s was significant for metastatic carcinoma of colonic origin, which was KRAS mutated. The patient th en has subsequently had a PET/CT scan which showed multiple bone mets and 1 large lesion in the sacru m, which was extending into the sacral plexus causing some of the symptoms that she was admitted with to the hospital with worsening pain and constipation. She had a colonoscopy attempted. She was fou nd to have complete or near complete obstruction of the rectosigmoid. Subsequent to that, the patien t had a barium enema, which showed a tight stricture in the rectosigmoid and she was placed on liquid diet. She started palliative radiation to the sacral area. She was also started on systemic chemot herapy with FOLFOX-6, modified FOLFOX-6, plus Avastin. The patient had second cycle as mentioned ear lier about 4 days ago. PAST MEDICAL HISTORY: The patient has a past medical history significant for fact that she has a his tory of constipation and more importantly she has a history of retention of urine, and when she was a dmitted, had a Salazar catheter placed and more than 600 mL of fluid was removed. The patient has no history allergies. ALLERGIES: SHE IS ALLERGIC TO CAFFEINE. SHE IS ALLERGIC TO IV CONTRAST WHERE SHE HAS HAD SHORTNESS OF BREATH AND PALPITATIONS. HOME MEDICATIONS: Lactobacillus, probiotic 1 daily. She is on morphine sulfate extended release 15 mg q. 12 hours, omeprazole 20 mg daily and Compazine 10 mg p.o. q. 8 hours. REVIEW OF SYSTEMS: CONSTITUTIONAL: The patient has been complaining of fatigue. No fevers, no chills. RESPIRATORY: The patient denies any history of shortness of breath or coughing. CARDIOVASCULAR: The patient denies any history of chest pain. Complains of palpitations. GASTROINTESTINAL: The patient has been having nonbloody diarrhea several times in a day associated w ith nausea, appetite changes, abdominal cramping. No history of vomiting, hematochezia, hematemesis. GENITOURINARY: The patient is complaining of some discomfort in the lower abdomen. A Salazar catheter is in place. MUSCULOSKELETAL: The patient has been complaining of neck pain, has mets to the bone. SKIN: Normal. NEUROLOGIC: The patient denies any history of dizziness, headache or drowsiness. EXTREMITIES: Normal. HEM/ONC AND LYMPHATIC: The patient has a diagnosis of metastatic colon CA with retroperitoneal metas tasis and bone metastasis. PSYCHIATRIC: Normal. PHYSICAL EXAMINATION: VITAL SIGNS: Reveals the patient to be tachycardic. Pulse is 126, respirations 16, blood pressure 9 7/69, pulse ox is 100% on room air. GENERAL: The patient is hypotensive and tachycardic. The patient's mouth is extremely dry. She is awake, alert, and oriented. HEENT: Head is normocephalic, atraumatic. Temporal muscle wasting is noted. Tongue is coated and d ry with multiple ridges. Pupils are equally reactive to light and accommodation. Conjunctivae are p zach. Sclerae are anicteric. Pupils are equally reactive to light and accommodation. NECK: Supple. There is no adenopathy. The patient has normal range of motion. LUNGS: Reveals it to be clear to percussion and auscultation without any adventitious sounds. CARDIOVASCULAR: Reveals S1 and S2 to be normal. The patient is tachycardic. No murmurs are heard. ABDOMEN: Soft. The patient has mild tenderness with distention, especially the lower abdominal hans on. The patient does not have any peritoneal signs at this time. BACK: Normal on inspection. UPPER AND LOWER EXTREMITIES: Reveal no cyanosis, clubbing or edema. NEUROLOGIC: Higher functions are normal. No focal deficits are noted on neurologic exam. SKIN: Warm and dry. No rashes are noted. PSYCHIATRIC: The patient is awake, alert, and oriented and is able to give a good history. LABORATORY DATA: Labs were noted which revealed the patient's white count to be 0.2, hemoglobin 13.3 , hematocrit 37, platelet count of 24,000 and this is despite getting Neulasta on Saturday, more than 24 hours after finishing chemotherapy and less than 48 hours. The patient's lactic acid level is hi gh. Sodium is 127, K is 4.1, chloride 96, CO2 of 17, BUN is 59, creatinine 3.5. Blood sugar is 139. The patient had a CAT scan of the abdomen and pelvis done at the request of Dr. Null, which betty ws extensive mural thickening of the small bowel without any apparent evidence of any fluid collectio n consistent with enteritis related to her recent chemotherapy. The patient is also noted to be hua rely neutropenic, pancytopenic with an ANC also which is very low, less than 500. The patient's lact ic acid as mentioned is 4.8. Code sepsis was called and the patient is being admitted to the ICU for further evaluation and management. Labs were also reviewed. K is 4.1, chloride 96, CO2 of 17, anio n gap of 18. Random sugar is 139, calcium is 8.1, total bilirubin is 2.3 with an AST of 31, ALT of 4 4, alkaline phosphatase is 57, LDH of 510. Troponin 0.04. Total protein is 5.1, albumin is 2.4, nora bulin is 2.6. Platelet count is 24,000 repeated. Granulocytic count is 0.03. Chest x-ray does not show any infiltrates. ASSESSMENT NOTES AND PLAN: The patient has sepsis with hypotension, lactic acidosis and renal azotemia. The patient has been started on bicarbonate drip. She has been started on IV antibiotics, broad spectrum. She has also been put on p.o. vancomycin. ID consultation with Dr. Avalos has been obtained. Renal consultation with has been obtained. The patient is going to be assessed by the farmworker dairy for further aggressive management in the ICU. The patient is also getting both IV fluids, 2 liters of normal saline rapidly along with IV fluids. Condition of the patient is critica l. I reviewed all the labs. I also spoke to Dr. Null who is on consultation. The patient is go ing to be kept on just n.p.o. for meds, may be advancing the diet to clear liquids once we get the of ficial report on the CAT scan, especially to make sure that there is no evolving issues with the rufus l that could be surgical. Routine post instructions have been given to the patient. I have spoken t o the patient's brother in great detail about the gravity of the situation. Continue to be aggressiv e and replace fluids and make sure the patient does not have ischemic events related to the bowel or to the kidney in view of the persistent hypotension. We will follow the patient very carefully. The patient is going to get morphine 2 mg IV q. 2 hours for relief of pain along with the other medicati ons that have been already given to the patient in the Emergency Room. The patient has a diagnosis o f metastatic stage IV colon carcinoma, currently on chemotherapy with FOLFOX-6 plus Avastin and now h aving sepsis. Time spent with the patient more than 90 minutes. Discussed my findings in detail with the intensivi st and with the biomedical technician as well. Kedar Hendricks MD cc: [id number] TT: 10/09/2016 23:28:57 mark
[2016-10-10] MEDS: Sodium Bicarbonate 8.4% 150 MEQ in Dextrose 5% In Water 1,000 ML IV SCH (00:35)
--- NOTE | 2016-10-10 01:36 | CARD ---
APPROVED REPORT EKG Measurement Heart [id number] <Conclusion> Sinus tachycardia Nonspecific T wave abnormality Abnormal ECG
[2016-10-10 06:19] LABS: HEMOGLOBIN 10.5 gm/dL (12.0-16.0)
[2016-10-10 06:27] LABS: ALB/GLOB RATIO 0.8 (1.1-1.8); ALBUMIN 2.2 g/dL (3.0-4.8)
[2016-10-10 06:34] LABS: PLATELET COUNT 15 10^3/uL (120.0-450.0)
[2016-10-10 06:53] LABS: CALCIUM 6.6 mg/dL (8.4-10.5)
[2016-10-10] MEDS ORDERED: Metoprolol 1 mg/ml Inj IVP ONE (07:10)
[2016-10-10] MEDS ORDERED: Albumin Human 5% (12.5 gm/250 ml) IV ONE ×2 (07:13→17:02)
[2016-10-10] MEDS: Sodium Chloride 0.9% 1,000 ML IV SCH ×3 (07:24→23:06)
--- NOTE | 2016-10-10 07:32 | CON ---
DATE: 10/09/2016 This patient was seen and evaluated earlier in the Emergency Room. Discussed with the ER physician, Dr. Hercules, and also with Dr. Hendricks. This 61-year-old patient with a history of rectosigmoid carcinoma in 2014 underwent a low anterior resection. This patient was found to have retroperitoneal lymphadenopathy and also lytic lesions in the right sacral area. The patient did undergo flexible sigmoidoscopy, was found to have stricture just proximal to the anastomosis area. The biopsy showed metastatic lesion from the previous colonic malignancy. The patient was started on chemoradiation with the plan towards colostomy. The patient had chemotherapy last about 4 days ago, now presents with severe diarrhea and weakness, and also has cramping lower abdominal/cramping abdominal discomfort. GI consult was requested to further evaluate. The patient denies any bleeding per rectum this time. Feeling very weak. OTHER PAST MEDICAL HISTORY: Is significant as above, history of basal cell carcinoma of the skin in the past, history of chronic gastroesophageal reflux disease. ALLERGIES: ALLERGIC TO IV CONTRAST DYE. FAMILY HISTORY: Noncontributory. SOCIAL HISTORY: Denies smoking. No alcohol. REVIEW OF SYSTEMS: Positive as above. Other systems reviewed. Weakness, diarrhea, and status post recent chemotherapy 4 days ago. PHYSICAL EXAMINATION: VITAL SIGNS: The blood pressure 95/52. At that time the heart rate is 147. Respiration 18. O2 saturation 94%. HEENT: Atraumatic, anicteric. NECK: Supple. HEART: S1, S2 heard. LUNGS: Bilateral air entry present. ABDOMEN: Soft. There was mild tenderness present on deep palpation in the lower abdomen. No rebound or guarding. EXTREMITIES: ____ edema. No cyanosis. NEUROLOGIC: Alert, oriented. Moves all the extremities. LABORATORY DATA: WBC is 0.2, hemoglobin 13.3, hematocrit 37.3, platelets 24. Chemistry: Sodium 127, potassium 4.1, creatinine 3.5 (three days ago it was 0.9 ). Total bilirubin 2.3, albumin 2.4. We had a CT scan of the abdomen and pelvis with no p.o. or IV contrast done which showed ____ some diffuse thickening of the small bowel and also partially thickening of the colon. IMPRESSION: This 61-year-old patient with advanced colorectal carcinoma status post low anterior resection done in the past had obstruction, the colonic obstruction proximal to the anastomosis due to the metastatic disease on chemotherapy. Last chemotherapy 4 days ago. Admitted with profuse diarrhea, weakness. The patient is found to be severely neutropenic with the ANC of 200. The patient also has acute kidney injury, rule out sepsis. WOULD RECOMMENDATION: 1. An IV fluid hydration. 2. Stool for C. difficile. 3. Started the patient on p.o. vancomycin empirically. The patient is also on meropenem IV. Continue the antibiotics. 4. The patient can resumed on a clear liquid diet if he is feeling better tomorrow. Thank you very much for allowing us to participate in the care of the patient. Will continue to closely follow up her care and suggest further management based on the clinical course. Tong Null MD cc: [id number] TT: 10/10/2016 07:31:51 Confirmation # [id number] Dictation # [id number] mark WALLACE
--- NOTE | 2016-10-10 08:02 | RAD ---
HISTORY: recent obstruction COMPARISON: Comparison made with CT scan abdomen pelvis 10/09/2016 FINDINGS: BOWEL: No evidence of acute mechanical bowel obstruction. Previously noted of mural wall thickening small bowel consistent with enteritis not appreciated on this exam. Metastatic lesion right sacrum also well poorly delineated. Please refer to prior CT scan of the abdomen and pelvis for additional details. BONES: Previously noted lytic presumed metastatic lesion in the right aspect of the sacrum also not well delineated on this study. Please refer to concurrent CT scan abdomen and pelvis for additional details. OTHER FINDINGS: None. IMPRESSION: No evidence acute mechanical bowel obstruction. Enteritis changes of the small bowel not appreciated on this study. In addition, lytic metastatic lesion right sacrum poorly seen. Please refer to concurrent CT scan abdomen pelvis for into the talus.
--- NOTE | 2016-10-10 08:04 | CON ---
DATE: 10/09/2016 The patient seen and examined at bedside. This is a 61-year-old lady with advanced colon cancer, status post chemotherapy (last cycle on Saturday and XRT for bone mets) who developed severe diarrhea shortly after the chemotherapy/XRT was given. She tried to manage it conservatively as an outpatient with Imodium ; however, that did not take care of symptoms. The patient also reports nausea and some low abdominal pain/cramps, which were getting progressively worse. No fever, no chills, no sweats. No shortness of breath, no chest pain. Her symptoms culminated in her admission to [facility] ER and the patient was found to be pancytopenic, tachycardic and hypotensive. PAST MEDICAL HISTORY: GERD. SOCIAL HISTORY: No alcohol or illicit drug abuse. No tobacco smoking. ALLERGIES: EPINEPHRINE, CAFFEINE, IV CONTRAST. FAMILY HISTORY: Noncontributory. MEDICATION: Pepcid. REVIEW OF SYSTEMS: Review of 12-organ system, other than mentioned in history of present illness, is negative. PHYSICAL EXAMINATION: VITAL SIGNS: Heart rate 125, blood pressure 87/50, oxygen saturation 100% on room air. HEAD AND NECK: Atraumatic. LUNGS: Clear to auscultation bilaterally. HEART: Regular rate and rhythm. S1, S2 normal. ABDOMEN: Soft, moderately tender in the low quadrants diffusely. No voluntary or involuntary guarding, and no rebound tenderness. SKIN: Dry. PSYCHIATRIC: The patient is alert and oriented x 3, a little bit anxious. LABORATORY DATA: WBC 0.2, hemoglobin 13.3, platelet count 24. Sodium 127, potassium 4.1, chloride 96, carbon dioxide 17, BUN 59, creatinine 3.5. Lactic acid 4.8. Glucose 139. AST 31, ALT 44. Troponin 0.04, albumin 2.4. INR 2.92. MEDICATIONS: Bicarbonate 150 mL per hour, Granix, vancomycin and Zosyn were given in the Emergency Room. CAT scan of the abdomen and pelvis is pending. Chest x-ray: No active pulmonary disease. ASSESSMENT AND PLAN: This is a 61-year-old lady who presented with neutropenic severe sepsis in the setting of severe diarrhea and abdominal pain with multiorgan dysfunction syndrome. Presentation concerning for typhlitis as a source of infection. CAT scan of the abdomen and pelvis is pending. Broad spectrum antibiotics initiated. Blood and urine cultures were sent. Procalcitonin was ordered. Neupogen was started. VBG lactic acid is pending; however, judging by bicarb level and BMP results, patient has anion gap metabolic acidosis. The patient will be continued on maintenance fluids with bicarb at 150 mL per hour. Three liters of normal saline wide open were given. We will continue with GI prophylaxis. Will continue to trend lactic acid level. If blood pressure continues to be low, will proceed with vasopressor support. The patient will be going to intensive care unit for observation and management. Will continue to maintain blood glucose between 140-180 range. We will continue with n.p.o. for now. Will continue with gastrointestinal prophylaxis. Will continue with maintaining O2 sat more than 90%. ID consult was called. Nephrology consult was called and appreciated. Addendum: POC IVC ultrasound showed IVC diameter less then 1 cm and fully colapsable on inspiration--additional 2 L bolus were given with subsequent improvement in hemodynamics. CT abdomen: severe enteritis--likely XRT related. GI consult pending+IVF, NPO, Protonix, supportive care. [facility] time Germain Estes MD cc: [id number] TT: 10/09/2016 16:06:00 Confirmation # [id number] Dictation # [id number] mark WALLACE
--- NOTE | 2016-10-10 08:51 | PN ---
DATE: 10/10/2016 The patient is seen and examined at bedside. She feels a little bit stronger and better; however, still weak and tired. PHYSICAL EXAMINATION: VITAL SIGNS: Heart rate 130, blood pressure 107/66, oxygen saturation 93%-98% on room air, temperature 98. HEAD AND NECK: Atraumatic. LUNGS: Clear to auscultation bilaterally. HEART: Regular rate and rhythm. S1, S2 normal. ABDOMEN: Soft, nontender, nondistended. MUSCULOSKELETAL: No C/C/E. NEUROLOGIC: The patient moves all extremities spontaneously. SKIN: Still dry. PSYCHIATRIC: The patient is alert and oriented x 3. LABORATORY DATA: WBC 0.2, hemoglobin 10.5, platelet count 15. Sodium 129, potassium 3.9, chloride 98, carbon dioxide 25, BUN 70, creatinine 3.3 (down from 3.6). Lactic acid 1.6. PH 7.37 (bicarb drip stopped). AST 36, ALT 61, albumin 2.2. MEDICATIONS: Tylenol p.r.n., meropenem, morphine p.r.n., Zofran p.r.n., Protonix, normal saline 150 mL per hour, Granix 300 mcg subQ daily, vancomycin p.o. and vancomycin IV was given yesterday (patient has renal failure and vancomycin dosed intermittently). The patient is on heparin as her INR was 2.9 yesterday. ASSESSMENT AND PLAN: This is a 61-year-old lady who presented with severe sepsis secondary to XRT-enteritis with multiorgan system failure including septic cardiomyopathy, acute kidney injury, pancytopenia and disseminated intravascular coagulation. The patient was aggressively fluid resuscitated with resolution of lactic acidosis. Broad spectrum antibiotics started, septic workup initiated, and blood and urine cultures were sent. Procalcitonin is still pending. CAT scan confirmed diagnosis of enteritis. The patient was started on G-CSF. She is still pancytopenic. No signs of bleeding, though. Threshold for thrombocyte transfusion in the absence of active hemorrhage will be at 5000. Threshold for PRBC transfusion in the absence of unstable hemodynamics, lactic acidosis, or acute coronary syndrome will be 7. Will continue to target euvolemia, euglycemia, normothermia and oxygen saturation more than 90%. The patient is n.p.o. Bedside point of care ultrasound revealed IVC less than 1 cm with completely collapsible diameter on inspiration. Fluid resuscitation continued with isoncotic albumin (patient has already received 6L of crystalloids). Will continue with GI prophylaxis. GI and ID service consult appreciated. ccm time 40 min Germain Estes MD cc: [id number] TT: 10/10/2016 08:50:41 Confirmation # [id number] Dictation # [id number] mn RODRIGO
[2016-10-10] MEDS: Albumin Human 5% (12.5 gm/250 ml) IV SCH ×2 (09:22→10:30)
[2016-10-10] MEDS: Meropenem 1g/NS 100mL IVPB 1 GM/100 ML PIGGYBACK IVPB SCH ×2 (09:26→22:43)
[2016-10-10] MEDS: Vancomycin 25 MG/ML PO SCH ×4 (09:30→21:14)
[2016-10-10 11:55] LABS: PLATELET ESTIMATE LOW (NORMAL); RBC 3.78 10^6/uL (3.5-6.1)
[2016-10-10 11:56] LABS: MEAN CELL VOLUME 75.7 fL (80.0-105.0)
[2016-10-10 11:57] LABS: MEAN CORPUSCULAR HEMOGLOBIN 28.3 pg (25.0-35.0); MEAN CORPUSCULAR HGB CONC 37.4 g/dl (31.0-37.0); RED CELL DISTRIBUTION WIDTH 39.6 % (11.5-14.5)
[2016-10-10 12:01] LABS: PLATELET COUNT MANUAL 25 K/mm3 (120-450)
[2016-10-10 12:04] LABS: WHITE BLOOD COUNT 0.2 10^3/ul (4.5-11.0)
[2016-10-10] MEDS: Metoprolol 1 mg/ml Inj IVP SCH ×2 (12:55→17:51)
[2016-10-10] MEDS: metroNIDAZOLE IV 500 mg/100 ml 500 MG/100 ML BAG IVPB SCH ×2 (12:59→21:13)
--- NOTE | 2016-10-10 13:30 | CP.PCM.CON ---
History of Present Illness - History of Present Illness History of Present Illness: 61 year old female with PMH of HTN, 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 S/P colectomy in 2014, history of UTI, GERD, anxiety came in to [facility] because of watery diarrhea for the past 2 days associated with crampy abdominal pain and generalized weakness. The patient just had chemotherapy about 4-5 days ago and as per patient had radiation therapy last week. She denies fever or chills, no headache or dizziness, no chest pain, no SOB, no cough or rhinorrhea, no sore throat, no nausea or vomiting. Patient has an indwelling Salazar catheter. In the ED, the patient underwent CT scan of the abdomen and pelvis which showed enteritis. She was also noted to be neutropenic. Infectious diseases consult is requested to further evaluate and manage. Review of Systems - Review of Systems All systems: reviewed and no additional remarkable complaints except (as per HPI ) Past Patient History - Infectious Disease Hx of Infectious Diseases: None - Tetanus Immunizations Tetanus Immunization: Unknown - Past Social History Smoking Status: Never Smoked - CARDIAC Hx Cardiac Disorders: Yes Hx Hypertension: Yes - PULMONARY Hx Respiratory Disorders: No - NEUROLOGICAL Hx Neurological Disorder: No - HEENT Hx HEENT Problems: Yes (Contacts/glasses) - RENAL Hx Chronic Kidney Disease: No - ENDOCRINE/METABOLIC Hx Endocrine Disorders: No - HEMATOLOGICAL/ONCOLOGICAL Hx Blood Disorders: Yes Hx Cancer: Yes (Colon/Basil CA) Hx Metastesis: Yes - INTEGUMENTARY 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) - MUSCULOSKELETAL/RHEUMATOLOGICAL Hx Musculoskeletal Disorders: Yes Hx Back Pain: Yes Hx Falls: No - GASTROINTESTINAL Hx Gastrointestinal Disorders: Yes Hx Gastroesophageal Reflux: Yes Other/Comment: Colon CA, colectomy 2014, IBS, Constipation - GENITOURINARY/GYNECOLOGICAL Hx Genitourinary Disorders: Yes Hx Urinary Tract Infection: Yes - PSYCHIATRIC Hx Psychophysiologic Disorder: Yes Hx Anxiety: Yes Hx Substance Use: No - SURGICAL HISTORY Other/Comment: lesion remove from chest wall - ANESTHESIA Hx Anesthesia Reactions: No Hx Malignant Hyperthermia: No Meds Allergies/Adverse Reactions: Allergies Allergy/AdvReac Type Severity Reaction Status Date / Time epinephrine Allergy Intermediate PALPITATION Verified 10/06/16 18:13 S caffeine Allergy PALPITATION Verified 10/06/16 18:13 S IV CONTRAST Allergy Severe SHORTNESS Uncoded 10/06/16 18:13 OF BREATH CAF Allergy Intermediate PALPITATION Uncoded 10/06/16 18:13 S - Medications Medications: Current Medications Sodium Bicarbonate 150 meq/ (Dextrose) 1,150 mls @ 150 mls/hr IV [id number] Physical Exam - Constitutional Appears: Non-toxic, No Acute Distress - Head Exam Head Exam: NORMAL INSPECTION - ENT Exam Additional comments: oral thrush - Neck Exam Neck exam: Negative for: Meningismus - Respiratory Exam Respiratory Exam: Decreased Breath Sounds Additional comments: right anterior chest wall port-a-cath site clean and non-tender - Cardiovascular Exam Cardiovascular Exam: +S1, +S2 - GI/Abdominal Exam GI & Abdominal Exam: Soft, Tenderness (mild, periumbilical area and lower quadrants). absent: Distended, Rebound, Rigid Results - Vital Signs Recent Vital Signs: Last Vital Signs Temp 98.5 F 10/09/16 15:35 Pulse 127 H 10/09/16 15:35 Resp 18 10/09/16 15:35 BP 87/61 L 10/09/16 15:35 Pulse Ox 100 10/09/16 15:04 - Labs Result Diagrams: 10/10/16 06:05 10/10/16 06:05 Assessment & Plan - Assessment and Plan (Free Text) Plan: Assessment Consider severe sepsis with acute renal failure due to acute enteritis R/O C. diff. associated diarrhea in this patient with acute neutropenia from chemotherapy for her stage 4 colon cancer HTN 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 S/P colectomy in 2014 history of UTI GERD anxiety Plan Started patient on a dose of IV Vancomycin and started Merrem, PO Vancomycin and IV Flagyl pending blood cx, stool for C. diff.; urine cx growing gram negative bacilli and will await identification Will monitor clinically
--- NOTE | 2016-10-10 19:25 | CON ---
DATE: 10/10/2016 REASON FOR CONSULTATION: Acute kidney injury, diarrhea, dehydration, pancytopenia. HISTORY OF PRESENTING ILLNESS: A 61-year-old lady with history of metastatic colon cancer, status po st chemotherapy 4 days ago, presented to the Emergency Room with complaints of abdominal pain, nausea , vomiting, diarrhea, decreased p.o. intake. She was found to be pancytopenic. Her WBC count was 0. 2. She was also found to be severely thrombocytopenic. She was also found to have acute kidney inju ry. Her creatinine was found to be 3.6. Her baseline creatinine is 0.6. The patient was admitted t o the ICU with neutropenic sepsis. She was also found to have an elevated lactate level of 4.8. She was found to be acidotic. Hyponatremic. Consultation is requested for acute kidney injury, dehydra tion, hyponatremia, mixed metabolic acidosis. PAST MEDICAL AND SURGICAL HISTORY: Colon cancer diagnosed in 2014. Surgical resection, node positiv e disease, systemic chemotherapy, cauda equina syndrome, radiation therapy, neurogenic bladder, indwe amariing Salazar, subsequently she was found to have multiple bone mets with 1 large lesion in the sacrum. Currently, she is receiving chemotherapy with FOLFOX, modified FOLFOX plus Avastin. There is no history of hypertension, nor of diabetes. FAMILY HISTORY: Noncontributory. SOCIAL HISTORY: No smoking, no alcohol use, no IV drug abuse. ALLERGIES: CAFFEINE, CONTRAST. MEDICATIONS AT HOME: Have been Lactobacillus, morphine, omeprazole, Compazine. CURRENT MEDICATIONS: Flagyl 500 q. 8, Lopressor, meropenem 1 g q. 12, morphine, Protonix, normal ashkan ine at 150, Tylenol, vancomycin 125 p.o. 4 times daily, Zofran. REVIEW OF SYSTEMS: The patient complains of lower abdominal pain. She also complains of diarrhea. She complains of some epigastric disturbance. She denies any fever, chills. She denies any chest ti ghtness. All other systems are reviewed and are unremarkable. PHYSICAL EXAMINATION: GENERAL: Elderly lady lying in bed, weak and cachectic. VITAL SIGNS: Blood pressure 160/88, blood pressure at the time of presentation was 87/60, heart rate 116, respiratory rate 24, temperature 98.8. HEENT: Normocephalic, atraumatic, positive pallor. NECK: Supple. No JVD. LUNGS: Bilateral equal air entry, bilateral rhonchi, poor inspiratory effort. Decreased breath soun ds at bases. CARDIAC: S1, S2, regular rate and rhythm, no rub, no murmur, tachycardia. ABDOMEN: Distended, soft, tenderness in the lower abdomen. Bowel sounds present. EXTREMITIES: No lower extremity edema. INTAKE AND OUTPUT: 2510/550. LABORATORY DATA: WBC 0.2, hemoglobin 10.5, hematocrit 28.6, platelet 15. Sodium 129, potassium 3.9, chloride 98, CO2 25, BUN 70, creatinine 3.3, glucose 115, calcium 6.6, total bili 1.8, AST 36, ALT 6 1, albumin 2.2, lactate 4.8. That was yesterday. Urinalysis: Yellow, cloudy, pH 5.0, specific grav ity 1.030, protein greater than 300, ketones trace, blood large, nitrites positive, leukocyte esteras e trace, numerous WBCs. CT of the abdomen and pelvis: Mural thickening is seen throughout the small bowel, mild small bowel dilatation, mesenteric stranding in the left upper quadrant. Findings consi stent with enteritis. ASSESSMENT AND PLAN: It is a 61-year-old lady with history of metastatic colon cancer, bone metastas es, sacral mass, cauda equina syndrome, indwelling Salazar, status post chemotherapy 4 days ago, who is presenting with neutropenic septic shock. She is also found to have acute kidney injury. It is natalia t she is severely dehydrated. She has been having diarrhea and lower abdominal pain. She has not be en able to keep down any p.o. intake. She is found to be hemoconcentrated. Pancytopenic. Thrombocy topenic. She appears to have a urinary tract infection. 1. Pancytopenic sepsis. 2. Mixed metabolic acidosis. 3. Resolving lactic acidosis. 4. Acute kidney injury. 5. Possible urosepsis. 6. Dehydration. 7. Severe hypocalcemia. 8. Hyponatremia. PLAN: 1. Aggressive hydration. 2. Valdez cultures. 3. Broad spectrum antibiotics, dose for creatinine clearance, about 10-30 mL per minute. 4. Avoid nephrotoxins. 5. Check phosphorus levels. 6. Check magnesium levels. 7. Monitor LFTs. 8. Case is discussed at length with patient at bedside, ICU resident, ICU nurses. Thank you for the courtesy of this consultation. More than 35 minutes was spent in the care of this critically ill patient. Adele Griffin MD cc: [id number] TT: 10/10/2016 19:25:18 Confirmation # [id number] Dictation # [id number] dn
--- NOTE | 2016-10-10 21:35 | PN ---
DATE: 10/10/2016 SUBJECTIVE: This patient was seen and evaluated earlier. She mentioned the diarrhea has significantly slowed down on a clear liquid diet. PHYSICAL EXAMINATION: VITAL SIGNS: Pulse rate 100 to 115, blood pressure is 125/66 and respirations 18. O2 saturation 97%. HEENT: Atraumatic. Anicteric. NECK: Supple. HEART: S1, S2 heard. LUNGS: Bilateral air entry present. ABDOMEN: Soft. Mild tenderness on deep palpation. EXTREMITIES: No edema. No cyanosis. LABORATORY DATA: WBC is 0.2, hemoglobin 10.5, hematocrit 28.5 and platelets ___ _. LFTs showed total bilirubin 1.8, otherwise unremarkable. Calcium is slightly on the low side at 6.6. IMPRESSION: This 61-year-old patient with rectosigmoid carcinoma with low anterior resection, admitted with a bowel obstruction. Possibly, she has a stricture proximal to the anastomosis, could not pass the scope. The patient subsequently had radiation and chemo to keep this stricture open and . The patient is now admitted with pancytopenias, acute renal failure and acute episodes of diarrhea. RECOMMENDATIONS: Would recommend to follow up on the stool studies and C. diff , which was sent and was negative. IV hydration and correction of the electrolytes. Clear liquids. Now Diarrhea is slowing down. Thank you very much for allowing us to participate in the care of this patient. Tong Null MD cc: [id number] TT: 10/10/2016 21:35:08 Confirmation # [id number] Dictation # [id number] sn WALLACE
[2016-10-11] MEDS: Metoprolol 1 mg/ml Inj IVP SCH ×4 (00:03→18:00)
[2016-10-11] MEDS: Morphine 2 mg/ml ISec IVP PRN ×3 (01:38→19:39)
[2016-10-11] MEDS: metroNIDAZOLE IV 500 mg/100 ml 500 MG/100 ML BAG IVPB SCH (05:05)
[2016-10-11] MEDS: Sodium Chloride 0.9% 1,000 ML IV SCH ×3 (05:06→23:42)
[2016-10-11 06:40] LABS: INR 1.87 (0.93-1.08); PROTHROMBIN TIME 20.2 Seconds (9.9-11.8)
[2016-10-11 06:49] LABS: ALBUMIN 2.3 g/dL (3.0-4.8); MAGNESIUM 1.9 mg/dL (1.7-2.2)
[2016-10-11 07:02] LABS: MEAN CELL VOLUME 75.6 fL (80.0-105.0); RBC 2.79 10^6/uL (3.5-6.1); RED CELL DISTRIBUTION WIDTH 14.9 % (11.5-14.5)
[2016-10-11 07:09] LABS: HEMOGLOBIN 7.8 gm/dL (12.0-16.0); PLATELET COUNT 9 10^3/uL (120.0-450.0); WHITE BLOOD COUNT 0.2 10^3/ul (4.5-11.0)
--- NOTE | 2016-10-11 08:01 | PN ---
DATE: 10/10/2016 SUBJECTIVE: The patient is a 61-year-old female lying in bed, awake, with family at the bedside, sohail morgan admitted via the Emergency Room to the intensive care unit with a past history significant for sta ge IV cancer of the colon with cauda equina syndrome with a leg bag for urinary retention for overflo w, just completed radiation to the sacral area with modest relief of her pain, started on FOLFOX 6 pl us Avastin with the second cycle of chemotherapy completed with Neulasta given with the Emergency Jelena m visit with hydration given approximately 4 days prior. With this, the patient was then sent home a s she was otherwise without complaint after Lomotil was given for her diarrhea, which is her main com plaint with weakness. With this, the patient had continued on a full liquid diet with the patient the n readmitted by the Emergency Room for severe tachycardia and hypotension with pancytopenia with neut ropenic sepsis diagnosed. She also has significant thrombocytopenic indices with abnormal INR, with very high procalcitonin of 200 noted, calcium of 6.6 with C. difficile negative stool and electrolyte imbalance showing hyponatremia. Acute renal dysfunction also noted. The patient is now seen rachel jones comfortably, family at the bedside, in no acute distress, requesting her diet be advanced. Again , this is as per gastrointestinal quality assurance consultant, Dr. Null who reports that the patient should remain on a liquid diet to continue at present. She is on neutropenic precautions with the patient christiana morgan in no acute distress this visit. OBJECTIVE: VITAL SIGNS: Temperature 98.8, pulse 114, respirations 15, blood pressure 100/68 and pulse ox 97%. HEENT: Unremarkable. Tongue is moist and midline. NECK: Supple. HEART: Tachy rate, regular rhythm. LUNGS: Clear. ABDOMEN: Soft. Minimal tenderness to gentle palpation. EXTREMITIES: No edema. SKIN: Warm, dry and clear. NEUROLOGIC: Awake, alert and oriented. LABORATORY DATA: The patient's labs were done. White blood cell count of 0.2 with an absolute neutr ophil count done yesterday of 0.03. It was not done today; will ask for it to be done tomorrow. Her admission white blood cell count was 0.2 also with the hemoglobin of 13.3. Today's hemoglobin is 10 .5. Her platelet count on admission was 24,000. It is 15,000 with a manual count of 25,000 today. There is no active bleeding and her palate to inspection shows no petechia. Her chem metabolic panel today shows a sodium 129 with a BUN of 70, creatinine of 3.3, calcium of 6.6, down from 8.1 on admis zachary, T-bili of 1.8, down from 2.3 on admission, ALT of 61 with a procalcitonin of greater than 200. Her INR yesterday was 2.9 and will be repeated tomorrow. Urine shows positive nitrite, moderate olga irubin, large amount of blood and trace leukocyte esterase. Her ABG showed a pO2 of 125, pH of 7.37 with a bicarb of 24.9. Her urine culture grew out gram-negative rods greater than 100,000 colonies. Blood cultures were negative. C. difficile testing was also negative. ASSESSMENT FOR THIS PATIENT: Is that of neutropenic sepsis, stage IV cancer of the colon with cauda equina syndrome with a Salazar catheter for urinary retention, status post radiation treatment on chemo therapy with FOLFOX, 6 plus Avastin, thrombocytopenia, neutropenia, diarrhea and stricture of the col on with electrolyte imbalance and acute renal failure. PLAN FOR THIS PATIENT: After conversation with Dr. Hendricks, is to continue present medical regimen a s per consultants' recommendations. Will monitor clinically and with labs. Unfortunately, we are no t able to advance her diet at present with the prognosis for this patient guarded with consideration for transfusion of platelets, should it be indicated. Tomasz Winters MD cc: [phone] TT: 10/10/2016 20:38:20 Confirmation # [id number] Dictation # [id number] sn
--- NOTE | 2016-10-11 08:17 | PN ---
DATE: 10/11/2016 The patient seen and examined at bedside. She is comfortable. She is alert, awake, however, fairly weak. She also had intermittent episodes of confusion. PHYSICAL EXAMINATION: VITAL SIGNS: Heart rate 117, blood pressure 114/67, oxygen saturation 96%, respiratory rate 20. HEAD AND NECK: Atraumatic. LUNGS: Clear to auscultation bilaterally. HEART: Regular rate and rhythm. S1, S2 normal. ABDOMEN: Soft, moderately tender diffusely. There are no peritoneal signs, no voluntary or involuntary guarding. SKIN: Moist. PSYCHIATRIC: The patient is alert, awake, and oriented x 3. NEUROLOGIC: The patient moves all extremities spontaneously. LABORATORIES: Sodium 136, potassium 3.5 (supplemented), chloride 105, carbon dioxide 21, BUN 74, creatinine 2.9. WBC 0.2, hemoglobin 7.8 down from 10.5, platelet count 9. Urine culture positive for gram-negative rods. MEDICATIONS: Tylenol p.r.n., Mycelex topical, Flagyl, meropenem, metoprolol 5 mg IV q. 6, morphine p.r.n., Protonix 40 mg IV daily, potassium supplementation , normal saline 150 mL per hour, Granix 300 mcg subQ daily, vancomycin. 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 At present time, patient is fluid resuscitated. She is hemodynamically relatively stable. Her heart rate substantially improved and blood pressure remains stable. Her mental status a little bit fluctuates and at times she is confused. In light of her thrombocytopenia, we will proceed with CAT scan of the head to make sure there is no intracranial bleed. If that comes back negative, we will consider diagnosis of ICU delirium. We will optimize her sleep and circadian patterns, we will change her room to the one that has windows to expose her to as much light as possible during the daytime. We will proceed with frequent reorientation, avoiding benzodiazepines and morphine, but not in expense of pain control. The patient is not agitated. We will continue to target euvolemia, euglycemia, normothermia and oxygen saturation more than 90%. My threshold for packed red blood cell transfusion in the absence of bleeding, hemodynamic instability, lactic acidosis or acute coronary syndrome will be 7 and the threshold for platelet transfusion in the absence of all above and no fever would be platelet level 5. Would continue with gastrointestinal prophylaxis. Antibiotics. Urine culture positive for gram-negative rods and blood cultures so far negative. The patient is getting clinically better. Discussed with Hem/Onc service ccm time 40 min Germain Estes MD cc: [id number] TT: 10/11/2016 08:17:08 Confirmation # [id number] Dictation # [id number] en MTDD
--- NOTE | 2016-10-11 08:42 | CT ---
PROCEDURE: CT HEAD WITHOUT CONTRAST. HISTORY: altered mental status, trombocytopenia COMPARISON: None available. TECHNIQUE: Axial computed tomography images were obtained through the head/brain without intravenous contrast. Radiation dose: Total exam DLP = 688 mGy-cm. This CT exam was performed using one or more of the following dose reduction techniques: Automated exposure control, adjustment of the mA and/or kV according to patient size, and/or use of iterative reconstruction technique. FINDINGS: HEMORRHAGE: No intracranial hemorrhage. BRAIN: No mass effect or edema. No atrophy or chronic microvascular ischemic changes. VENTRICLES: Unremarkable. No hydrocephalus. CALVARIUM: Unremarkable. PARANASAL SINUSES: Unremarkable as visualized. No significant inflammatory changes. MASTOID AIR CELLS: Unremarkable as visualized. No inflammatory changes. OTHER FINDINGS: None. IMPRESSION: Normal CT of the Head.
[2016-10-11] MEDS: Meropenem 1g/NS 100mL IVPB 1 GM/100 ML PIGGYBACK IVPB SCH ×2 (09:00→22:38)
--- NOTE | 2016-10-11 10:16 | CP.PCM.PN ---
Subjective - Date & Time of Evaluation Date of Evaluation: 10/11/16 Time of Evaluation: 09:00 - Subjective Subjective: Patient continues to have abdominal pain and cramping, no fevers overnight, her bowel movement is still loose but less watery. Objective - Vital Signs/Intake and Output Vital Signs (last 24 hours): Temp Pulse Resp BP Pulse Ox 98.7 F 120 H 33 H 122/67 92 L 10/11/16 04:00 10/11/16 05:55 10/11/16 04:52 10/11/16 05:55 10/11/16 05:00 Intake and Output: 10/11/16 10/11/16 06:59 18:59 Intake Total 2600 Output Total 650 Balance 1950 - Medications Medications: Current Medications Acetaminophen (Tylenol 325mg Tab) 650 mg PO Q6H PRN PRN Reason: Pain, Mild (1-3) Clotrimazole (Mycelex Deedee) 10 mg MT 5XD [facility] Last Admin: 10/11/16 09:01 Dose: 10 mg Meropenem 1g/NS 100mL IVPB (Meropenem 1g/Ns 100ml Ivpb) 1 gm in 100 mls @ 100 mls/hr IVPB Q12 RODRÍGUEZ PRN Reason: Protocol Stop: 10/16/16 16:34 Last Admin: 10/11/16 09:00 Dose: 100 mls/hr Sodium Chloride (Sodium Chloride 0.9%) 1,000 mls @ 150 mls/hr IV .Q6H40M [facility] Last Admin: 10/11/16 05:06 Dose: 150 mls/hr Potassium Chloride (Potassium Chloride 20 Meq/100 Ml) 20 meq in 100 mls @ 50 mls/hr IVPB Q2H [facility] Stop: 10/11/16 11:44 Last Admin: 10/11/16 08:46 Dose: 50 mls/hr Metoprolol Tartrate (Lopressor) 5 mg IVP Q6H [facility] Last Admin: 10/11/16 05:55 Dose: 5 mg Morphine Sulfate (Morphine) 2 mg IVP Q2H PRN PRN Reason: Pain, severe (8-10) Last Admin: 10/11/16 08:13 Dose: 2 mg Mupirocin (Bactroban Ointment) 1 gm NS BID [facility] Stop: 10/15/16 18:01 Last Admin: 10/11/16 09:01 Dose: 1 applic Ondansetron HCl (Zofran Inj) 4 mg IVP Q6 [facility] Last Admin: 10/11/16 05:04 Dose: 4 mg Pantoprazole Sodium (Protonix Inj) 40 mg IVP DAILY [facility] Last Admin: 10/11/16 09:00 Dose: 40 mg - Labs Labs: 10/11/16 06:15 10/11/16 06:15 PT 20.2 Seconds (9.9-11.8) H 10/11/16 06:15 INR 1.87 (0.93-1.08) H 10/11/16 06:15 APTT 39.9 Seconds (23.7-30.8) H 10/09/16 12:01 - Constitutional Appears: Non-toxic, No Acute Distress - Head Exam Head Exam: NORMAL INSPECTION - ENT Exam ENT Exam: Mucous Membranes Moist - Neck Exam Neck Exam: absent: Lymphadenopathy, Meningismus - Respiratory Exam Respiratory Exam: Decreased Breath Sounds - Cardiovascular Exam Cardiovascular Exam: +S1, +S2 - GI/Abdominal Exam GI & Abdominal Exam: Soft, Tenderness (diffuse). absent: Distended, Guarding, Rigid, Rebound Assessment and Plan - Assessment and Plan (Free Text) Plan: Assessment Consider severe sepsis with acute renal failure due to acute enteritis in this patient with acute neutropenia from chemotherapy for her stage 4 colon cancer; stool for C. diff. is negative HTN 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 S/P colectomy in 2014 history of UTI GERD anxiety Plan continue Merrem day 2, and will hold off on PO Vancomycin and IV Flagyl since stool for C. diff. is negative; urine cx growing gram negative bacilli and will await identification Will continue to monitor clinically
[2016-10-11] MEDS ORDERED: Morphine 4 mg/ml ISec IVP PRN (11:29)
--- NOTE | 2016-10-11 11:40 | PN ---
DATE: 10/11/2016 Seen and examined at the bedside earlier this morning. The patient remains on neutropenic precaution s. Family is currently at bedside. Tolerating liquid diet right now. The patient gets intermittent episodes of confusion, but is awake, alert, and aware of surroundings. No acute overnight events re ported. The patient is still having loose bowel movements, but less watery. Positive abdominal pain and cramping, but no acute distress. No reports of overt GI bleed. VITAL SIGNS: Temperature is 98.8, blood pressure 125/94, pulse 119, 94% room air. LABORATORIES: WBC is 0.2, hemoglobin 7.8, hematocrit 21.1, platelets is 9, manual platelet count is pending. PT is 20.2, INR is improved at 1.87. Chemistry: Sodium 136, K 3.5, BUN is 70, creatinine is 2.9, calcium is 6.0, magnesium 1.9, total bilirubin 1.7, AST 22, ALT 45, alk phos is 34. Her proc alcitonin yesterday is greater than 200. Urine culture is positive E. coli. Stool for C. diff was n egative. PHYSICAL EXAMINATION: HEENT: Sclera is anicteric. NECK: Supple. CARDIAC: S1, S2. LUNG SOUNDS: With decreased breath sounds, but good air entry, no rales or wheeze. ABDOMEN: With bowel sounds, soft with mild tenderness on deep palpation. No rebound or guarding. EXTREMITIES: No edema. NEUROLOGIC: Awake, alert, and oriented at this time. ASSESSMENT: This is a 61-year-old female with rectosigmoid carcinoma with low anterior resection. C monica with bowel obstruction. The patient may have stricture at the proximal anastomosis. The patient had a colonoscopy, but could not pass this area. This was done on last admission. The patient on r adiation and chemo, hoping the stricture would open up. The patient now with pancytopenia, acute zully al failure, and diarrhea. The patient did have stool for Clostridium difficile that was negative. D iarrhea is slowly improving. PLAN: Right now, she is on clear liquids. The patient is also a positive urinary tract infection, E scherichia coli, is on IV antibiotics of meropenem, on IV fluids for hydration, is on morphine for pa in. Continue gastrointestinal prophylaxis. The patient is also hypokalemic, getting potassium repla cement. The patient was seen and case discussed with Dr. Null. Yoana IQBAL cc: [id number] TT: 10/11/2016 11:39:40 Confirmation # [id number] Dictation # [id number] en
[2016-10-11 12:02] LABS: PLATELET COUNT MANUAL 15 K/mm3 (120-450)
--- NOTE | 2016-10-11 13:59 | PN ---
DATE: 10/11/2016 SUBJECTIVE: The patient is seen in the ICU. She is lying in bed. Family members are at bedside. S he appears to be in distress. She is complaining of pain in her lower abdomen. She also seems to be a little disoriented. PHYSICAL EXAMINATION: GENERAL: Elderly lady lying in bed in the ICU. VITAL SIGNS: Blood pressure 125/94, heart rate 122, respiratory rate 18-20, temperature 98.9. NECK: Supple, no JVD. LUNGS: Bilateral equal air entry, poor inspiratory effort, no rales. CARDIAC: S1, S2, regular rate and rhythm, no murmur, no rub. ABDOMEN: Distended, soft, nontender, bowel sounds present. EXTREMITIES: No lower extremity edema. INTAKE AND OUTPUT: 3560/1400. LABORATORY DATA: WBC 0.2, hemoglobin 7.8, hematocrit 21, platelets 9. Sodium 136, potassium 3.5, ch loride 105, CO2 of 21, BUN 74, creatinine 2.9, glucose 92, calcium 6.0, phosphorus 2.6, magnesium 1.9 , total bili 1.7, albumin 2.3, globulin 2.3. Random vancomycin 8. Urine culture, E. coli. Blood cultures no growth so far. CURRENT MEDICATIONS: Bactroban, Lopressor 5 IV q. 6, meropenem 1 gram q. 12, morphine, Mycelex, Prot darshana, normal saline at 150, Tylenol, Zofran, albumin given yesterday, Flagyl 500 q. 8, p.o. vancomyci n given yesterday. 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 At this time, patient seems to be clinically somewhat improved. She is hemodynam ically stable. She is not hypotensive anymore. She is not oliguric anymore. Her mental status is f luctuating. She is confused. She also has severe thrombocytopenia. Her hemoglobin has dropped. Th is may be just a part of her pancytopenia from her recent chemotherapy. Her renal function seems to have improved over the last 24 hours. Her creatinine has come down from 3.6-2.9. 1. Neutropenic sepsis. 2. Escherichia coli urinary tract infection. 3. Thrombocytopenia. 4. Anemia. 5. Acute kidney injury, largely prerenal azotemia. 6. Diarrhea. 7. Enteritis. 8. Metastatic colon cancer with bone metastases. 9. Altered mental status. PLAN: 1. Continue IV fluids. 2. Continue antibiotics to treat E. coli UTI. 3. Dose all antibiotics for creatinine clearance 30-50 mL per minute. 4. Monitor platelet count closely. 5. Agree with CT scan of the head. 6. Continue to monitor in the ICU closely. Case is discussed at length with ICU residents. Case is discussed with family members at bedside. More than 35 minutes was spent in the care of this critically ill patient. Adele Griffin MD cc: [id number] TT: 10/11/2016 13:58:57 Confirmation # [id number] Dictation # [id number] tn
[2016-10-11 18:30] LABS: MEAN CELL VOLUME 75.9 fL (80.0-105.0); MEAN CORPUSCULAR HEMOGLOBIN 28.5 pg (25.0-35.0); MEAN CORPUSCULAR HGB CONC 37.6 g/dl (31.0-37.0); RBC 2.91 10^6/uL (3.5-6.1); RED CELL DISTRIBUTION WIDTH 15.3 % (11.5-14.5)
[2016-10-11 18:41] LABS: WHITE BLOOD COUNT 0.3 10^3/ul (4.5-11.0)
[2016-10-11 18:43] LABS: PLATELET COUNT 6 10^3/uL (120.0-450.0)
[2016-10-11 18:48] LABS: HEMOGLOBIN 8.3 gm/dL (12.0-16.0)
[2016-10-11] MEDS: Sucralfate 1 gm/10 ml Oral Susp UD PO SCH (20:52)
[2016-10-11] MEDS ORDERED: Phytonadione 10 mg/ml Inj (Adult) SC ONE (22:09)
--- NOTE | 2016-10-11 23:07 | PN ---
DATE: 10/11/[address] Hendricks. SUBJECTIVE: The patient is a 61-year-old female, seen lying awake in bed. Family at the bedside, ad mitted for neutropenic sepsis with acute renal failure, with the patient known to suffer from stage I V cancer of the colon, cauda equina syndrome with urinary retention, now with severe neutropenic ezra josh along with severe thrombocytopenia. The patient is lethargic, but arousable with family at the [facility] with request for permission for transfusion of blood, as per Dr. Hendricks's recommendations, as her hemoglobin earlier today was 7.8 with a repeat of 8.3 with a platelet count of 9.0, manual of 15 with a repeat platelet count of 6000. Her white blood cell count is 0.3. Absolute neutrophil count was not done. We will check it in the morning. With this, the consent for blood and blood product transfusion was obtained after explanation of the possible interactions with possible infection versu s allergic phenomenon. With this, the patient is otherwise in no acute distress. OBJECTIVE: PHYSICAL EXAMINATION: VITAL SIGNS: Temperature 99.8, pulse 111, respirations 22, blood pressure 121/63, pulse ox of 99%. GENERAL: She appears weak, somewhat lethargic, possibly after morphine was given earlier. HEENT: Otherwise unremarkable. Taking liquids well. NECK: Supple. HEART: Tachy rate, regular rhythm. LUNGS: Clear. ABDOMEN: Soft, nontender. EXTREMITIES: No edema. SKIN: Warm, dry and clear. NEUROLOGIC: Somnolent but arousable. LABORATORY DATA: The patient's labs were done earlier today. White blood cell count 0.2 with a repe at of 0.3; hemoglobin 7.8 with a repeat of 8.3; hematocrit 21.1; platelet count of 9000 with a manual of 15,000, a repeat was 6000 automated. Her chem metabolic panel showed a BUN of 74; creatinine of 2.9, improved from 3.3 yesterday with a calcium level 6.0 with an albumin of 2.3. Procalcitonin yest erday of greater than 200. Her INR today was 1.87, down from 2.9 yesterday. The patient had a CT scan of her head done today. It was read as normal CT of the head. ASSESSMENT: Neutropenic sepsis, stage IV cancer of the colon, acute renal failure, pancytopenia with severe thrombocytopenia, cauda equina syndrome with Salazar catheter, gastroesophageal reflux disease, anxiety, intractable pain of cancer, stricture of the colon, electrolyte imbalance. PLAN: After discussion with the patient, her family members, Dr. Hendricks, ICU undertaker assistant, and blood bank, we will recommend type and cross for 2 units of packed red blood cells with transfusion of kaila e after premedication. Also transfusion of 1 unit of platelets. There is no acute bleeding at this point with inspection to the oral palate showing no petechiae. We will otherwise continue present medical regimen as per consultants' recommendations. After conversation with personnel at blood bank, the patient's blood type is A positive with O negati ve blood available for transfusion where her plates available are O positive. After conversation wit h Dr. Hendricks, we will hold the transfusion of packed red blood cells for now with transfusion of sybil telets only after premedication with Tylenol, Benadryl, and Solu-Cortef. We will also do testing for hemolysis labs, including haptoglobin, LDH, Claudia direct and indirect, and a retic count. She had an elevated INR. We will be giving vitamin K 5 mg subQ along with further testing as per the blood b ank, as the patient's own blood clotted 3+ on room temperature, possibly due to recent treatment with chemotherapy versus antibiotics versus sepsis. At this point, the patient is in no acute distress w ith the patient appearing weak and denying any pain. We will monitor clinically and with labs. All of this was also related to the intensive care unit nurse. Tomasz Winters MD cc: [id number] TT: 10/11/2016 23:05:57 Confirmation # [id number] Dictation # [id number]
[2016-10-12] MEDS: Metoprolol 1 mg/ml Inj IVP SCH ×3 (00:30→12:21)
[2016-10-12] MEDS: Sodium Chloride 0.9% 1,000 ML IV SCH (06:21)
[2016-10-12 07:25] LABS: INR 2.06 (0.93-1.08); PROTHROMBIN TIME 22.3 Seconds (9.9-11.8)
[2016-10-12] MEDS ORDERED: Vancomycin 1gm in NS 250ml 1 GM/250 ML BAG IVPB STA (07:34)
[2016-10-12 07:42] LABS: ALB/GLOB RATIO 0.9 (1.1-1.8); ALBUMIN 2.2 g/dL (3.0-4.8)
[2016-10-12 07:53] LABS: CALCIUM 6.1 mg/dL (8.4-10.5)
[2016-10-12] MEDS ORDERED: Albumin Human 5% (12.5 gm/250 ml) IV ONE (08:02)
[2016-10-12] MEDS: Potassium Chloride 20 mEq ER Tab PO SCH ×3 (08:47→18:22)
[2016-10-12 09:01] LABS: EOS % 6.3 % (1.5-5.0); GRAN # 0.09 (1.4-6.5); GRAN % 18.7 % (50.0-68.0); HEMOGLOBIN 8.2 gm/dL (12.0-16.0); LYMPH # 0.1 (1.2-3.4); MEAN CELL VOLUME 78.8 fL (80.0-105.0); MEAN CORPUSCULAR HEMOGLOBIN 29.5 pg (25.0-35.0); MEAN CORPUSCULAR HGB CONC 37.4 g/dl (31.0-37.0); MEAN PLATELET VOLUME 9.7 fl (7.0-11.0); MONO # 0.2 (0.1-0.6); RBC 2.78 10^6/uL (3.5-6.1); RED CELL DISTRIBUTION WIDTH 15.8 % (11.5-14.5)
[2016-10-12 09:05] LABS: PLATELET COUNT 19 10^3/uL (120.0-450.0)
[2016-10-12 09:06] LABS: WHITE BLOOD COUNT 0.5 10^3/ul (4.5-11.0)
[2016-10-12 09:25] LABS: PLATELET COUNT MANUAL 25 K/mm3 (120-450)
[2016-10-12 09:26] LABS: PLATELET ESTIMATE LOW (NORMAL)
--- NOTE | 2016-10-12 09:48 | CP.CCUPN ---
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 Patient was seen and examined at bedside and continues to be very weak. Patient complains about the thrush that she has had since she came in but states that the medications have been helping her. Patient received platelets overnight but otherwise had no acute issues per RN. CCU Objective - Vital Signs / Intake & Output Vital Signs (Last 4 hours): Vital Signs Temp Pulse Resp BP 10/12/16 06:33 97.8 F 100 H 17 142/80 10/12/16 06:31 133/81 10/12/16 06:30 100 H 32 H 10/12/16 06:04 108 H 142/80 10/12/16 06:00 142/80 10/12/16 05:59 108 H 22 10/12/16 05:51 141/99 H 10/12/16 05:50 109 H 15 10/12/16 05:48 97.6 F 111 H 14 141/99 H Intake and Output (Last 8hrs): Intake & Output 10/11/16 10/12/16 10/12/16 22:59 06:59 14:59 Intake Total 2720 3301 Output Total 700 425 Balance 2019 2875 Intake: IV 2000 1900 Right Subclavian 2000 Right Wrist 1900 Oral 720 1200 Blood Product 201 Apheresis Plts Acda Lr 201 Irr 2nd Unit [id number] Output: Urine 700 425 Urethral (Salazar) 700 425 Other: Voiding Method Indwelling Catheter # Bowel Movements 1 - Physical Exam Head: Positive for: Atraumatic, Normocephalic Pupils: Positive for: PERRL Extroacular Muscles: Positive for: EOMI Conjunctiva: Positive for: Normal Mouth: Positive for: Moist Mucous Membranes. Negative for: Normal Tounge ( thrush) Pharnyx: Positive for: Normal. Negative for: ERYTHEMA, EXUDATE, Uvular Deviation Nose (External): Positive for: Atraumatic Neck: Positive for: Normal Range of Motion, Trachea Midline Respiratory/Chest: Positive for: Clear to Auscultation, Good Air Exchange. Negative for: Respiratory Distress, Accessory Muscle Use Cardiovascular: Positive for: Normal S1, S2, Tachycardic. Negative for: Murmurs Abdomen: Positive for: Tenderness (mild diffuse), Normal Bowel Sounds. Negative for: Distention, Peritoneal Signs, Guarding Upper Extremity: Positive for: Normal Inspection, Capillary Refill < 2s. Negative for: Cyanosis, Edema Lower Extremity: Positive for: Normal Inspection, Swelling (+1), Capillary Refill < 2 s. Negative for: Edema Neurological: Positive for: GCS=15, CN II-XII Intact, Speech Normal Skin: Positive for: Warm, Dry, Normal Color. Negative for: Rashes - Medications Active Medications: Active Medications Generic Name Dose Route Start Last Admin Trade Name Freq PRN Reason Stop Dose Admin Acetaminophen 650 mg 10/10/16 10:31 Tylenol 325mg Tab PO Q6H PRN Pain, Mild (1-3) Clotrimazole 10 mg 10/10/16 10:00 10/12/16 08:45 Mycelex Deedee MT 10 mg 5XD RODRÍGUEZ Administration Meropenem 1g/NS 100mL IVPB 1 gm in 100 mls @ 100 mls/hr 10/09/16 16:33 22:38 Meropenem 1g/Ns 100ml Ivpb IVPB 10/16/16 16:34 100 mls/hr Q12 RODRÍGUEZ Administration Protocol Sodium Chloride 1,000 mls @ 150 mls/hr 10/10/16 07:15 10/12/16 06:21 Sodium Chloride 0.9% IV 150 mls/hr .[id number] RODRÍGUEZ Administration Calcium Gluconate 1,000 mg/ 110 mls @ 110 mls/hr 10/12/16 09:00 Sodium Chloride IVPB 10/12/16 09:59 ONCE ONE Metoprolol Tartrate 5 mg 10/10/16 12:45 10/12/16 06:04 Lopressor IVP 5 mg Q6H RODRÍGUEZ Administration Morphine Sulfate 2 mg 10/11/16 17:03 10/11/16 19:39 Morphine IVP 2 mg Q2H PRN Administration Pain, severe (8-10) Mupirocin 1 gm 10/11/16 10:00 10/11/16 17:37 Bactroban Ointment NS 10/15/16 18:01 1 applic BID RODRÍGUEZ Administration Ondansetron HCl 4 mg 10/10/16 12:00 10/12/16 06:04 Zofran Inj IVP 4 mg Q6 RODRÍGUEZ Administration Pantoprazole Sodium 40 mg 10/10/16 10:00 10/11/16 09:00 Protonix Inj IVP 40 mg DAILY RODRÍGUEZ Administration Potassium Chloride 40 meq 10/12/16 08:15 10/12/16 08:47 K-Dur 20 Meq Er Tab PO 10/12/16 16:16 40 meq Q4H RODRÍGUEZ Administration Sucralfate 1 gm 10/11/16 20:45 10/11/16 20:52 Carafate Oral Susp PO 1 gm BID RODRÍGUEZ Administration - Patient Studies Lab Studies: Microbiology Studies 10/09/16 18:30 Urine Culture - Final Urine,Salazar Escherichia Coli Lab Studies 10/12/16 10/12/16 10/12/16 Range/Units 07:00 07:00 07:00 WBC 0.5 L* D (4.5-11.0) 10^3/ul RBC 2.78 L (3.5-6.1) 10^6/uL Hgb 8.2 L (12.0-16.0) gm/dL Hct 21.9 L (36.0-48.0) % MCV 78.8 L (80.0-105.0) fL MCH 29.5 (25.0-35.0) pg MCHC 37.4 H (31.0-37.0) g/dl RDW 15.8 H (11.5-14.5) % Plt Count 19 L* (120.0-450.0) 10^3/uL Manual Plt Count 25 L* (120-450) K/mm3 MPV 9.7 (7.0-11.0) fl Gran % 18.7 L (50.0-68.0) % Lymph % (Auto) 25.0 (22.0-35.0) % Cloud % (Auto) 50.0 H (1.0-6.0) % Eos % (Auto) 6.3 H (1.5-5.0) % Baso % (Auto) 0.0 (0.0-3.0) % Gran # 0.09 L (1.4-6.5) Lymph # 0.1 L (1.2-3.4) Cloud # 0.2 (0.1-0.6) Eos # 0.0 (0.0-0.7) Baso # 0.00 (0.0-2.0) K/mm3 Corrected WBC (Man) Neutrophils % (Manual) Band Neutrophils % Lymphocytes % (Manual) Atypical Lymphs % Monocytes % (Manual) Eosinophils % (Manual) Basophils % (Manual) Metamyelocytes % Myelocytes % Promyelocytes % Nucleated RBC % Hypersegmented Polys Immature Lymphocytes Blast Cells Smudge Cells Toxic Granulation Dohle Bodies Hardeep Rods Platelet Evaluation Low Plt Clumps, EDTA Large Platelets Giant Platelets Polychromasia Hypochromasia Hyperchromasia Poikilocytosis (manual Basophilic Stippling Anisocytosis (manual) Microcytosis (manual) Macrocytosis (manual) Spherocytes Sickle Cells Target Cells Tear Drop Cells Ovalocytes Stomatocytes Helmet Cells Marlow Rings Kevin Cells Acanthocytes (Spur) Rouleaux Retic Count (0.5-1.5) % PT 22.3 H (9.9-11.8) Seconds INR 2.06 H (0.93-1.08) Sodium 136 (132-148) mmol/L Potassium 3.5 L (3.6-5.0) mmol/L Chloride 108 H (98-107) mmol/L Carbon Dioxide 19 L (21-33) mmol/L Anion Gap 13 (10-20) BUN 86 H (7-21) mg/dL Creatinine 2.8 H (0.5-1.4) mg/dL Est GFR ( Amer) 21 Est GFR (Non-Af Amer) 17 Random Glucose 112 H (70-110) mg/dL Calcium 6.1 L* (8.4-10.5) mg/dL Total Bilirubin 1.9 H (0.2-1.3) mg/dL AST 17 (15-39) U/L ALT 40 (7-56) U/L Alkaline Phosphatase 36 L (38-133) U/L Lactate Dehydrogenase (333-699) U/L Total Protein 4.6 L (5.8-8.3) g/dL Albumin 2.2 L (3.0-4.8) g/dL Globulin 2.4 gm/dL Albumin/Globulin Ratio 0.9 L (1.1-1.8) Random Vancomycin (20.0-40.0) ug/mL Blood Type Antibody Screen EMILY, Poly Interpret (NEGATIVE) Indirect Antiglob Test Crossmatch BBK History Checked 10/11/16 10/11/16 10/11/16 Range/Units 22:06 21:45 21:45 WBC (4.5-11.0) 10^3/ul RBC (3.5-6.1) 10^6/uL Hgb (12.0-16.0) gm/dL Hct (36.0-48.0) % MCV (80.0-105.0) fL MCH (25.0-35.0) pg MCHC (31.0-37.0) g/dl RDW (11.5-14.5) % Plt Count (120.0-450.0) 10^3/uL Manual Plt Count (120-450) K/mm3 MPV (7.0-11.0) fl Gran % (50.0-68.0) % Lymph % (Auto) (22.0-35.0) % Cloud % (Auto) (1.0-6.0) % Eos % (Auto) (1.5-5.0) % Baso % (Auto) (0.0-3.0) % Gran # (1.4-6.5) Lymph # (1.2-3.4) Cloud # (0.1-0.6) Eos # (0.0-0.7) Baso # (0.0-2.0) K/mm3 Corrected WBC (Man) Neutrophils % (Manual) Band Neutrophils % Lymphocytes % (Manual) Atypical Lymphs % Monocytes % (Manual) Eosinophils % (Manual) Basophils % (Manual) Metamyelocytes % Myelocytes % Promyelocytes % Nucleated RBC % Hypersegmented Polys Immature Lymphocytes Blast Cells Smudge Cells Toxic Granulation Dohle Bodies Hardeep Rods Platelet Evaluation Plt Clumps, EDTA Large Platelets Giant Platelets Polychromasia Hypochromasia Hyperchromasia Poikilocytosis (manual Basophilic Stippling Anisocytosis (manual) Microcytosis (manual) Macrocytosis (manual) Spherocytes Sickle Cells Target Cells Tear Drop Cells Ovalocytes Stomatocytes Helmet Cells Marlow Rings [place] Cells Acanthocytes (Spur) Rouleaux Retic Count 0.07 L (0.5-1.5) % PT (9.9-11.8) Seconds INR (0.93-1.08) Sodium (132-148) mmol/L Potassium (3.6-5.0) mmol/L Chloride (98-107) mmol/L Carbon Dioxide (21-33) mmol/L Anion Gap (10-20) BUN (7-21) mg/dL Creatinine (0.5-1.4) mg/dL Est GFR ( Amer) Est GFR (Non-Af Amer) Random Glucose (70-110) mg/dL Calcium (8.4-10.5) mg/dL Total Bilirubin (0.2-1.3) mg/dL AST (15-39) U/L ALT (7-56) U/L Alkaline Phosphatase (38-133) U/L Lactate Dehydrogenase 585 (333-699) U/L Total Protein (5.8-8.3) g/dL Albumin (3.0-4.8) g/dL Globulin gm/dL Albumin/Globulin Ratio (1.1-1.8) Random Vancomycin (20.0-40.0) ug/mL Blood Type Antibody Screen EMILY, Poly Interpret Positive H (NEGATIVE) Indirect Antiglob Test Positive Crossmatch BBK History Checked 10/11/16 10/11/16 10/11/16 Range/Units 17:00 17:00 10:30 WBC 0.3 L* D (4.5-11.0) 10^3/ul RBC 2.91 L (3.5-6.1) 10^6/uL Hgb 8.3 L (12.0-16.0) gm/dL Hct 22.1 L (36.0-48.0) % MCV 75.9 L (80.0-105.0) fL MCH 28.5 (25.0-35.0) pg MCHC 37.6 H (31.0-37.0) g/dl RDW 15.3 H (11.5-14.5) % Plt Count 6 L* (120.0-450.0) 10^3/uL Manual Plt Count (120-450) K/mm3 MPV (7.0-11.0) fl Gran % (50.0-68.0) % Lymph % (Auto) (22.0-35.0) % Cloud % (Auto) (1.0-6.0) % Eos % (Auto) (1.5-5.0) % Baso % (Auto) (0.0-3.0) % Gran # (1.4-6.5) Lymph # (1.2-3.4) Cloud # (0.1-0.6) Eos # (0.0-0.7) Baso # (0.0-2.0) K/mm3 Corrected WBC (Man) Neutrophils % (Manual) Band Neutrophils % Lymphocytes % (Manual) Atypical Lymphs % Monocytes % (Manual) Eosinophils % (Manual) Basophils % (Manual) Metamyelocytes % Myelocytes % Promyelocytes % Nucleated RBC % Hypersegmented Polys Immature Lymphocytes Blast Cells Smudge Cells Toxic Granulation Dohle Bodies Hardeep Rods Platelet Evaluation Plt Clumps, EDTA Large Platelets Giant Platelets Polychromasia Hypochromasia Hyperchromasia Poikilocytosis (manual Basophilic Stippling Anisocytosis (manual) Microcytosis (manual) Macrocytosis (manual) Spherocytes Sickle Cells Target Cells Tear Drop Cells Ovalocytes Stomatocytes Helmet Cells Marlow Rings [place] Cells Acanthocytes (Spur) Rouleaux Retic Count (0.5-1.5) % PT (9.9-11.8) Seconds INR (0.93-1.08) Sodium (132-148) mmol/L Potassium (3.6-5.0) mmol/L Chloride (98-107) mmol/L Carbon Dioxide (21-33) mmol/L Anion Gap (10-20) BUN (7-21) mg/dL Creatinine (0.5-1.4) mg/dL Est GFR ( Amer) Est GFR (Non-Af Amer) Random Glucose (70-110) mg/dL Calcium (8.4-10.5) mg/dL Total Bilirubin (0.2-1.3) mg/dL AST (15-39) U/L ALT (7-56) U/L Alkaline Phosphatase (38-133) U/L Lactate Dehydrogenase (333-699) U/L Total Protein (5.8-8.3) g/dL Albumin (3.0-4.8) g/dL Globulin gm/dL Albumin/Globulin Ratio (1.1-1.8) Random Vancomycin 8.0 L (20.0-40.0) ug/mL Blood Type A POSITIVE Antibody Screen Negative EMILY, Poly Interpret (NEGATIVE) Indirect Antiglob Test Crossmatch See Detail BBK History Checked Patient has bt 10/11/16 Range/Units 06:15 WBC (4.5-11.0) 10^3/ul RBC (3.5-6.1) 10^6/uL Hgb (12.0-16.0) gm/dL Hct (36.0-48.0) % MCV (80.0-105.0) fL MCH (25.0-35.0) pg MCHC (31.0-37.0) g/dl RDW (11.5-14.5) % Plt Count (120.0-450.0) 10^3/uL Manual Plt Count 15 L* (120-450) K/mm3 MPV (7.0-11.0) fl Gran % (50.0-68.0) % Lymph % (Auto) (22.0-35.0) % Cloud % (Auto) (1.0-6.0) % Eos % (Auto) (1.5-5.0) % Baso % (Auto) (0.0-3.0) % Gran # (1.4-6.5) Lymph # (1.2-3.4) Cloud # (0.1-0.6) Eos # (0.0-0.7) Baso # (0.0-2.0) K/mm3 Corrected WBC (Man) Cancelled Neutrophils % (Manual) Cancelled Band Neutrophils % Cancelled Lymphocytes % (Manual) Cancelled Atypical Lymphs % Cancelled Monocytes % (Manual) Cancelled Eosinophils % (Manual) Cancelled Basophils % (Manual) Cancelled Metamyelocytes % Cancelled Myelocytes % Cancelled Promyelocytes % Cancelled Nucleated RBC % Cancelled Hypersegmented Polys Cancelled Immature Lymphocytes Cancelled Blast Cells Cancelled Smudge Cells Cancelled Toxic Granulation Cancelled Dohle Bodies Cancelled Hardeep Rods Cancelled Platelet Evaluation Cancelled Plt Clumps, EDTA Cancelled Large Platelets Cancelled Giant Platelets Cancelled Polychromasia Cancelled Hypochromasia Cancelled Hyperchromasia Cancelled Poikilocytosis (manual Cancelled Basophilic Stippling Cancelled Anisocytosis (manual) Cancelled Microcytosis (manual) Cancelled Macrocytosis (manual) Cancelled Spherocytes Cancelled Sickle Cells Cancelled Target Cells Cancelled Tear Drop Cells Cancelled Ovalocytes Cancelled Stomatocytes Cancelled Helmet Cells Cancelled Marlow Rings Cancelled [place] Cells Cancelled Acanthocytes (Spur) Cancelled Rouleaux Cancelled Retic Count (0.5-1.5) % PT (9.9-11.8) Seconds INR (0.93-1.08) Sodium (132-148) mmol/L Potassium (3.6-5.0) mmol/L Chloride (98-107) mmol/L Carbon Dioxide (21-33) mmol/L Anion Gap (10-20) BUN (7-21) mg/dL Creatinine (0.5-1.4) mg/dL Est GFR ( Amer) Est GFR (Non-Af Amer) Random Glucose (70-110) mg/dL Calcium (8.4-10.5) mg/dL Total Bilirubin (0.2-1.3) mg/dL AST (15-39) U/L ALT (7-56) U/L Alkaline Phosphatase (38-133) U/L Lactate Dehydrogenase (333-699) U/L Total Protein (5.8-8.3) g/dL Albumin (3.0-4.8) g/dL Globulin gm/dL Albumin/Globulin Ratio (1.1-1.8) Random Vancomycin (20.0-40.0) ug/mL Blood Type Antibody Screen EMILY, Poly Interpret (NEGATIVE) Indirect Antiglob Test Crossmatch BBK History Checked Laboratory Results - last 24 hr 10/11/16 10/11/16 10/11/16 06:15 10:30 17:00 WBC 0.3 L* D RBC 2.91 L Hgb 8.3 L Hct 22.1 L MCV 75.9 L MCH 28.5 MCHC 37.6 H RDW 15.3 H Plt Count 6 L* Manual Plt Count 15 L* MPV Gran % Lymph % (Auto) Cloud % (Auto) Eos % (Auto) Baso % (Auto) Gran # Lymph # Cloud # Eos # Baso # Corrected WBC (Man) Cancelled Neutrophils % (Manual) Cancelled Band Neutrophils % Cancelled Lymphocytes % (Manual) Cancelled Atypical Lymphs % Cancelled Monocytes % (Manual) Cancelled Eosinophils % (Manual) Cancelled Basophils % (Manual) Cancelled Metamyelocytes % Cancelled Myelocytes % Cancelled Promyelocytes % Cancelled Nucleated RBC % Cancelled Hypersegmented Polys Cancelled Immature Lymphocytes Cancelled Blast Cells Cancelled Smudge Cells Cancelled Toxic Granulation Cancelled Dohle Bodies Cancelled Hardeep Rods Cancelled Platelet Evaluation Cancelled Plt Clumps, EDTA Cancelled Large Platelets Cancelled Giant Platelets Cancelled Polychromasia Cancelled Hypochromasia Cancelled Hyperchromasia Cancelled Poikilocytosis (manual Cancelled Basophilic Stippling Cancelled Anisocytosis (manual) Cancelled Microcytosis (manual) Cancelled Macrocytosis (manual) Cancelled Spherocytes Cancelled Sickle Cells Cancelled Target Cells Cancelled Tear Drop Cells Cancelled Ovalocytes Cancelled Stomatocytes Cancelled Helmet Cells Cancelled Marlow Rings Cancelled [place] Cells Cancelled Acanthocytes (Spur) Cancelled Rouleaux Cancelled Retic Count PT INR Sodium Potassium Chloride Carbon Dioxide Anion Gap BUN Creatinine Est GFR ( Amer) Est GFR (Non-Af Amer) Random Glucose Calcium Total Bilirubin AST ALT Alkaline Phosphatase Lactate Dehydrogenase Total Protein Albumin Globulin Albumin/Globulin Ratio Random Vancomycin 8.0 L Blood Type Antibody Screen EMILY, Poly Interpret Indirect Antiglob Test Crossmatch BBK History Checked 10/11/16 10/11/16 10/11/16 17:00 21:45 21:45 WBC RBC Hgb Hct MCV MCH MCHC RDW Plt Count Manual Plt Count MPV Gran % Lymph % (Auto) Cloud % (Auto) Eos % (Auto) Baso % (Auto) Gran # Lymph # Cloud # Eos # Baso # Corrected WBC (Man) Neutrophils % (Manual) Band Neutrophils % Lymphocytes % (Manual) Atypical Lymphs % Monocytes % (Manual) Eosinophils % (Manual) Basophils % (Manual) Metamyelocytes % Myelocytes % Promyelocytes % Nucleated RBC % Hypersegmented Polys Immature Lymphocytes Blast Cells Smudge Cells Toxic Granulation Dohle Bodies Hardeep Rods Platelet Evaluation Plt Clumps, EDTA Large Platelets Giant Platelets Polychromasia Hypochromasia Hyperchromasia Poikilocytosis (manual Basophilic Stippling Anisocytosis (manual) Microcytosis (manual) Macrocytosis (manual) Spherocytes Sickle Cells Target Cells Tear Drop Cells Ovalocytes Stomatocytes Helmet Cells Marlow Rings [place] Cells Acanthocytes (Spur) Rouleaux Retic Count 0.07 L PT INR Sodium Potassium Chloride Carbon Dioxide Anion Gap BUN Creatinine Est GFR ( Amer) Est GFR (Non-Af Amer) Random Glucose Calcium Total Bilirubin AST ALT Alkaline Phosphatase Lactate Dehydrogenase 585 Total Protein Albumin Globulin Albumin/Globulin Ratio Random Vancomycin Blood Type A POSITIVE Antibody Screen Negative EMILY, Poly Interpret Indirect Antiglob Test Crossmatch See Detail BBK History Checked Patient has bt 10/11/16 10/12/16 10/12/16 22:06 07:00 07:00 WBC 0.5 L* D RBC 2.78 L Hgb 8.2 L Hct 21.9 L MCV 78.8 L MCH 29.5 MCHC 37.4 H RDW 15.8 H Plt Count 19 L* Manual Plt Count 25 L* MPV 9.7 Gran % 18.7 L Lymph % (Auto) 25.0 Cloud % (Auto) 50.0 H Eos % (Auto) 6.3 H Baso % (Auto) 0.0 Gran # 0.09 L Lymph # 0.1 L Cloud # 0.2 Eos # 0.0 Baso # 0.00 Corrected WBC (Man) Neutrophils % (Manual) Band Neutrophils % Lymphocytes % (Manual) Atypical Lymphs % Monocytes % (Manual) Eosinophils % (Manual) Basophils % (Manual) Metamyelocytes % Myelocytes % Promyelocytes % Nucleated RBC % Hypersegmented Polys Immature Lymphocytes Blast Cells Smudge Cells Toxic Granulation Dohle Bodies Hardeep Rods Platelet Evaluation Low Plt Clumps, EDTA Large Platelets Giant Platelets Polychromasia Hypochromasia Hyperchromasia Poikilocytosis (manual Basophilic Stippling Anisocytosis (manual) Microcytosis (manual) Macrocytosis (manual) Spherocytes Sickle Cells Target Cells Tear Drop Cells Ovalocytes Stomatocytes Helmet Cells Marlow Rings [place] Cells Acanthocytes (Spur) Rouleaux Retic Count PT INR Sodium 136 Potassium 3.5 L Chloride 108 H Carbon Dioxide 19 L Anion Gap 13 BUN 86 H Creatinine 2.8 H Est GFR ( Amer) 21 Est GFR (Non-Af Amer) 17 Random Glucose 112 H Calcium 6.1 L* Total Bilirubin 1.9 H AST 17 ALT 40 Alkaline Phosphatase 36 L Lactate Dehydrogenase Total Protein 4.6 L Albumin 2.2 L Globulin 2.4 Albumin/Globulin Ratio 0.9 L Random Vancomycin Blood Type Antibody Screen EMILY, Poly Interpret Positive H Indirect Antiglob Test Positive Crossmatch BBK History Checked 10/12/16 07:00 WBC RBC Hgb Hct MCV MCH MCHC RDW Plt Count Manual Plt Count MPV Gran % Lymph % (Auto) Cloud % (Auto) Eos % (Auto) Baso % (Auto) Gran # Lymph # Cloud # Eos # Baso # Corrected WBC (Man) Neutrophils % (Manual) Band Neutrophils % Lymphocytes % (Manual) Atypical Lymphs % Monocytes % (Manual) Eosinophils % (Manual) Basophils % (Manual) Metamyelocytes % Myelocytes % Promyelocytes % Nucleated RBC % Hypersegmented Polys Immature Lymphocytes Blast Cells Smudge Cells Toxic Granulation Dohle Bodies Hardeep Rods Platelet Evaluation Plt Clumps, EDTA Large Platelets Giant Platelets Polychromasia Hypochromasia Hyperchromasia Poikilocytosis (manual Basophilic Stippling Anisocytosis (manual) Microcytosis (manual) Macrocytosis (manual) Spherocytes Sickle Cells Target Cells Tear Drop Cells Ovalocytes Stomatocytes Helmet Cells Marlow Rings [place] Cells Acanthocytes (Spur) Rouleaux Retic Count PT 22.3 H INR 2.06 H Sodium Potassium Chloride Carbon Dioxide Anion Gap BUN Creatinine Est GFR ( Amer) Est GFR (Non-Af Amer) Random Glucose Calcium Total Bilirubin AST ALT Alkaline Phosphatase Lactate Dehydrogenase Total Protein Albumin Globulin Albumin/Globulin Ratio Random Vancomycin Blood Type Antibody Screen EMILY, Poly Interpret Indirect Antiglob Test Crossmatch BBK History Checked Results Reviewed to Date: Yes Review of Systems - Review of Systems All systems: reviewed and no additional remarkable complaints except - EENT Nose/Mouth/Throat: Dry Mouth, Dysphagia Critical Care Progress Note - Prophylaxis GI Prophylaxis GI: PPI - Prophylaxis DVT Prophylaxis DVT: SCDs - Nutrition Nutrition: Nutrition Category Date Time Status Dysphagia/Modified Consistency Diet [DIET] Diets 10/12/16 Lunch Ordered Liquid Diet [DIET] Diets 10/10/16 Lunch Ordered Assessment/Plan - Assessment and Plan (Free Text) Assessment: 61 year old female with a PMH of stage IV colon CA s/p colectomy s/p chemotherapy, s/p XRT for sacral metastasis, who presented with 2 days of diarrhea, 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 Plan: Neurologic AAOx4, nonfocal Cardiovascular Hemodynamically improved after fluid resus, still tachycardic, on metoprolol 5mg IVP q6h, will switch to PRN IV and start 25mg PO BID Pulmonary Saturating well, no acute issues Matain O2 Sat > 92% Gastroenterologic XRT enteritis with diarrhea improving, GI following, C. Diff negative off PO vanco, on RODRÍGUEZ zofran per Hem/Onc and morphine 2q2 PRN pain Stomatitis started magic mouthwash Oral thrush improved mildly on clotrimazole troches Upgrading diet to pureed, will monitor On sucralfate and protonix Renal/Electrolytes/Fluids 6021/1125 Nephro following, recs appreciated, on NS + 20mEq KCl @ 60ml/hr Very fluid depleted, CASANDRA on arrival, aggressive fluid resuscitation with careful monitoring with POC US of IVC Mild metabolic alkalosis, following closely, may need to place back on bicarb drip if worsens Hypocalcemia with concurrent hypoalbuminemia, toribio Ca is 7.54, will give calcium gluconate x1 and follow CMP Supplementing mild hypokalemia Cr improving Endocrinologic Targeting euglycemia, no acute issues Infectious disease Afebril 24 hrs Leukopenia slightly improved, on neutropenic precautions ID following, recs appreciated, on merrem D4 BCxs negative x2 day 3, urine grew sensitive E. coli, nares + for MRSA on mupirocin oint Tylenol PRN fevers Given 1 dose of vanco, dosing based on random levels and not daily given CASANDRA with decreased clearance Hematologic Pancytopenia 2/2 chemotherapy for colon CA, Hem/onc following, recs appreciated Due for 2 units of blood today, blood sent for further testing beforehand, pre- medicated by their team with solucortef/acetaminophen/benadryl Thrombocytopenia improved with pheresed platelets Supplementing with Vitamin K for coagulopathy goal of INR <2 Musculoskeletal PT working with patient GI/DVT ppx: Protonix/SCDs Patient was seen and examined at bedside and case was discussed at length with attending physician. - Date & Time Date: 10/12/16 Time: 07:00 <Stacey Centeno MD - Last Filed: 10/12/16 13:37> CCU Objective - Vital Signs / Intake & Output Vital Signs (Last 4 hours): Vital Signs Pulse Resp BP Pulse Ox 10/12/16 12:21 114 H 147/73 10/12/16 12:00 114 H 24 96 10/12/16 11:00 108 H 27 H 127/74 97 10/12/16 10:00 105 H 21 145/84 97 Intake and Output (Last 8hrs): Intake & Output 10/11/16 10/12/16 10/12/16 22:59 06:59 14:59 Intake Total 2720 3301 Output Total 700 425 Balance 2020 2876 Intake: IV 2000 1900 Right Subclavian 2000 Right Wrist 1900 Oral 720 1200 Blood Product 201 Apheresis Plts Acda Lr 201 Irr 2nd Unit [id number] Output: Urine 700 425 Urethral (Salazar) 700 425 Other: Voiding Method Indwelling Catheter # Bowel Movements 1 - Medications Active Medications: Active Medications Generic Name Dose Route Start Last Admin Trade Name Freq PRN Reason Stop Dose Admin Acetaminophen 650 mg 10/10/16 10:31 Tylenol 325mg Tab PO Q6H PRN Pain, Mild (1-3) Clotrimazole 10 mg 10/10/16 10:00 10/12/16 13:29 Mycelex Deedee MT 10 mg 5XD RODRÍGUEZ Administration Al Hydrox/Mg Hydrox/ 0 ml 10/12/16 10:10 Simethicone 30 ml/ PO Diphenhydramine HCl 75 mg/ Q2H PRN Lidocaine 30 ml Mouth/Throat Pain Meropenem 1g/NS 100mL IVPB 1 gm in 100 mls @ 100 mls/hr 10/09/16 16:33 10:12 Meropenem 1g/Ns 100ml Ivpb IVPB 10/16/16 16:34 100 mls/hr Q12 RODRÍGUEZ Administration Protocol Potassium Chloride 20 meq/ 1,010 mls @ 60 mls/hr 10/12/16 10:14 10/12/16 11: 20 Sodium Chloride IV 60 mls/hr .[id number] RODRÍGUEZ Administration Metoprolol Tartrate 25 mg 10/12/16 18:00 Lopressor PO BID RODRÍGUEZ Metoprolol Tartrate 5 mg 10/12/16 12:37 Lopressor IVP Q6H PRN Sustained HR > 130 Morphine Sulfate 2 mg 10/11/16 17:03 10/11/16 19:39 Morphine IVP 2 mg Q2H PRN Administration Pain, severe (8-10) Mupirocin 1 gm 10/11/16 10:00 10/12/16 10:10 Bactroban Ointment NS 10/15/16 18:01 1 applic BID RODRÍGUEZ Administration Ondansetron HCl 4 mg 10/10/16 12:00 10/12/16 12:19 Zofran Inj IVP 4 mg Q6 RODRÍGUEZ Administration Pantoprazole Sodium 40 mg 10/10/16 10:00 10/12/16 10:12 Protonix Inj IVP 40 mg DAILY RODRÍGUEZ Administration Potassium Chloride 40 meq 10/12/16 08:15 10/12/16 12:21 K-Dur 20 Meq Er Tab PO 10/12/16 16:16 40 meq Q4H RODRÍGUEZ Administration Sucralfate 1 gm 10/11/16 20:45 10/12/16 10:12 Carafate Oral Susp PO 1 gm BID RODRÍGUEZ Administration - Patient Studies Lab Studies: Microbiology Studies 10/09/16 18:30 Urine Culture - Final Urine,Salazar Escherichia Coli Lab Studies 10/12/16 10/12/16 10/12/16 Range/Units 07:00 07:00 07:00 WBC 0.5 L* D (4.5-11.0) 10^3/ul RBC 2.78 L (3.5-6.1) 10^6/uL Hgb 8.2 L (12.0-16.0) gm/dL Hct 21.9 L (36.0-48.0) % MCV 78.8 L (80.0-105.0) fL MCH 29.5 (25.0-35.0) pg MCHC 37.4 H (31.0-37.0) g/dl RDW 15.8 H (11.5-14.5) % Plt Count 19 L* (120.0-450.0) 10^3/uL Manual Plt Count 25 L* (120-450) K/mm3 MPV 9.7 (7.0-11.0) fl Gran % 18.7 L (50.0-68.0) % Lymph % (Auto) 25.0 (22.0-35.0) % Cloud % (Auto) 50.0 H (1.0-6.0) % Eos % (Auto) 6.3 H (1.5-5.0) % Baso % (Auto) 0.0 (0.0-3.0) % Gran # 0.09 L (1.4-6.5) Lymph # 0.1 L (1.2-3.4) Cloud # 0.2 (0.1-0.6) Eos # 0.0 (0.0-0.7) Baso # 0.00 (0.0-2.0) K/mm3 Platelet Evaluation Low (NORMAL) Retic Count (0.5-1.5) % PT 22.3 H (9.9-11.8) Seconds INR 2.06 H (0.93-1.08) Sodium 136 (132-148) mmol/L Potassium 3.5 L (3.6-5.0) mmol/L Chloride 108 H (98-107) mmol/L Carbon Dioxide 19 L (21-33) mmol/L Anion Gap 13 (10-20) BUN 86 H (7-21) mg/dL Creatinine 2.8 H (0.5-1.4) mg/dL Est GFR ( Amer) 21 Est GFR (Non-Af Amer) 17 Random Glucose 112 H (70-110) mg/dL Calcium 6.1 L* (8.4-10.5) mg/dL Total Bilirubin 1.9 H (0.2-1.3) mg/dL AST 17 (15-39) U/L ALT 40 (7-56) U/L Alkaline Phosphatase 36 L (38-133) U/L Lactate Dehydrogenase (333-699) U/L Total Protein 4.6 L (5.8-8.3) g/dL Albumin 2.2 L (3.0-4.8) g/dL Globulin 2.4 gm/dL Albumin/Globulin Ratio 0.9 L (1.1-1.8) Blood Type Antibody Screen EMILY, Poly Interpret (NEGATIVE) Indirect Antiglob Test Crossmatch BBK History Checked 10/11/16 10/11/16 10/11/16 Range/Units 22:06 21:45 21:45 WBC (4.5-11.0) 10^3/ul RBC (3.5-6.1) 10^6/uL Hgb (12.0-16.0) gm/dL Hct (36.0-48.0) % MCV (80.0-105.0) fL MCH (25.0-35.0) pg MCHC (31.0-37.0) g/dl RDW (11.5-14.5) % Plt Count (120.0-450.0) 10^3/uL Manual Plt Count (120-450) K/mm3 MPV (7.0-11.0) fl Gran % (50.0-68.0) % Lymph % (Auto) (22.0-35.0) % Cloud % (Auto) (1.0-6.0) % Eos % (Auto) (1.5-5.0) % Baso % (Auto) (0.0-3.0) % Gran # (1.4-6.5) Lymph # (1.2-3.4) Cloud # (0.1-0.6) Eos # (0.0-0.7) Baso # (0.0-2.0) K/mm3 Platelet Evaluation (NORMAL) Retic Count 0.07 L (0.5-1.5) % PT (9.9-11.8) Seconds INR (0.93-1.08) Sodium (132-148) mmol/L Potassium (3.6-5.0) mmol/L Chloride (98-107) mmol/L Carbon Dioxide (21-33) mmol/L Anion Gap (10-20) BUN (7-21) mg/dL Creatinine (0.5-1.4) mg/dL Est GFR ( Amer) Est GFR (Non-Af Amer) Random Glucose (70-110) mg/dL Calcium (8.4-10.5) mg/dL Total Bilirubin (0.2-1.3) mg/dL AST (15-39) U/L ALT (7-56) U/L Alkaline Phosphatase (38-133) U/L Lactate Dehydrogenase 585 (333-699) U/L Total Protein (5.8-8.3) g/dL Albumin (3.0-4.8) g/dL Globulin gm/dL Albumin/Globulin Ratio (1.1-1.8) Blood Type Antibody Screen EMILY, Poly Interpret Positive H (NEGATIVE) Indirect Antiglob Test Positive Crossmatch BBK History Checked 10/11/16 10/11/16 Range/Units 17:00 17:00 WBC 0.3 L* D (4.5-11.0) 10^3/ul RBC 2.91 L (3.5-6.1) 10^6/uL Hgb 8.3 L (12.0-16.0) gm/dL Hct 22.1 L (36.0-48.0) % MCV 75.9 L (80.0-105.0) fL MCH 28.5 (25.0-35.0) pg MCHC 37.6 H (31.0-37.0) g/dl RDW 15.3 H (11.5-14.5) % Plt Count 6 L* (120.0-450.0) 10^3/uL Manual Plt Count (120-450) K/mm3 MPV (7.0-11.0) fl Gran % (50.0-68.0) % Lymph % (Auto) (22.0-35.0) % Cloud % (Auto) (1.0-6.0) % Eos % (Auto) (1.5-5.0) % Baso % (Auto) (0.0-3.0) % Gran # (1.4-6.5) Lymph # (1.2-3.4) Cloud # (0.1-0.6) Eos # (0.0-0.7) Baso # (0.0-2.0) K/mm3 Platelet Evaluation (NORMAL) Retic Count (0.5-1.5) % PT (9.9-11.8) Seconds INR (0.93-1.08) Sodium (132-148) mmol/L Potassium (3.6-5.0) mmol/L Chloride (98-107) mmol/L Carbon Dioxide (21-33) mmol/L Anion Gap (10-20) BUN (7-21) mg/dL Creatinine (0.5-1.4) mg/dL Est GFR ( Amer) Est GFR (Non-Af Amer) Random Glucose (70-110) mg/dL Calcium (8.4-10.5) mg/dL Total Bilirubin (0.2-1.3) mg/dL AST (15-39) U/L ALT (7-56) U/L Alkaline Phosphatase (38-133) U/L Lactate Dehydrogenase (333-699) U/L Total Protein (5.8-8.3) g/dL Albumin (3.0-4.8) g/dL Globulin gm/dL Albumin/Globulin Ratio (1.1-1.8) Blood Type A POSITIVE Antibody Screen Negative EMILY, Poly Interpret (NEGATIVE) Indirect Antiglob Test Crossmatch See Detail BBK History Checked Patient has bt Laboratory Results - last 24 hr 10/11/16 10/11/16 10/11/16 17:00 17:00 21:45 WBC 0.3 L* D RBC 2.91 L Hgb 8.3 L Hct 22.1 L MCV 75.9 L MCH 28.5 MCHC 37.6 H RDW 15.3 H Plt Count 6 L* Manual Plt Count MPV Gran % Lymph % (Auto) Cloud % (Auto) Eos % (Auto) Baso % (Auto) Gran # Lymph # Cloud # Eos # Baso # Platelet Evaluation Retic Count 0.07 L PT INR Sodium Potassium Chloride Carbon Dioxide Anion Gap BUN Creatinine Est GFR ( Amer) Est GFR (Non-Af Amer) Random Glucose Calcium Total Bilirubin AST ALT Alkaline Phosphatase Lactate Dehydrogenase Total Protein Albumin Globulin Albumin/Globulin Ratio Blood Type A POSITIVE Antibody Screen Negative EMILY, Poly Interpret Indirect Antiglob Test Crossmatch See Detail BBK History Checked Patient has bt 10/11/16 10/11/16 10/12/16 21:45 22:06 07:00 WBC RBC Hgb Hct MCV MCH MCHC RDW Plt Count Manual Plt Count MPV Gran % Lymph % (Auto) Cloud % (Auto) Eos % (Auto) Baso % (Auto) Gran # Lymph # Cloud # Eos # Baso # Platelet Evaluation Retic Count PT INR Sodium 136 Potassium 3.5 L Chloride 108 H Carbon Dioxide 19 L Anion Gap 13 BUN 86 H Creatinine 2.8 H Est GFR ( Amer) 21 Est GFR (Non-Af Amer) 17 Random Glucose 112 H Calcium 6.1 L* Total Bilirubin 1.9 H AST 17 ALT 40 Alkaline Phosphatase 36 L Lactate Dehydrogenase 585 Total Protein 4.6 L Albumin 2.2 L Globulin 2.4 Albumin/Globulin Ratio 0.9 L Blood Type Antibody Screen EMILY, Poly Interpret Positive H Indirect Antiglob Test Positive Crossmatch BBK History Checked 10/12/16 10/12/16 07:00 07:00 WBC 0.5 L* D RBC 2.78 L Hgb 8.2 L Hct 21.9 L MCV 78.8 L MCH 29.5 MCHC 37.4 H RDW 15.8 H Plt Count 19 L* Manual Plt Count 25 L* MPV 9.7 Gran % 18.7 L Lymph % (Auto) 25.0 Cloud % (Auto) 50.0 H Eos % (Auto) 6.3 H Baso % (Auto) 0.0 Gran # 0.09 L Lymph # 0.1 L Cloud # 0.2 Eos # 0.0 Baso # 0.00 Platelet Evaluation Low Retic Count PT 22.3 H INR 2.06 H Sodium Potassium Chloride Carbon Dioxide Anion Gap BUN Creatinine Est GFR ( Amer) Est GFR (Non-Af Amer) Random Glucose Calcium Total Bilirubin AST ALT Alkaline Phosphatase Lactate Dehydrogenase Total Protein Albumin Globulin Albumin/Globulin Ratio Blood Type Antibody Screen EMILY, Poly Interpret Indirect Antiglob Test Crossmatch BBK History Checked Critical Care Progress Note - Nutrition Nutrition: Nutrition Category Date Time Status Dysphagia/Modified Consistency Diet [DIET] Diets 10/12/16 Lunch Ordered Attending/Attestation - Attestation I have personally seen and examined this patient.: Yes I have fully participated in the care of the patient.: Yes I have reviewed all pertinent clinical information: Yes Notes (Text): 10/12/16 13:33 61 y/o F w/ Neutropenia / Pancytopenia secondary to presumed Radiation/ Chemotherapy treatment Currently w/ ANC< 500, afebrile on empiric treatment for infections, except fungal. E.Coli UTI Received Neulasta lst week, awaiting counts. Retic ct low. Stomatitis cocktail . Diet advanced Transaminitis and T.Bili w/ Elevated INR- unclear if from further tumor invasion ? US done, w/o any ductal dilatation . Trend daily. No encephalopathic yet. Gi following . 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 Thrombocytopenia noted , platelets given yesterday , no bleeding. Keep platelets > 10k or 20K w/ bleeding and ICH risk. dvt p SCD PPI cc time 55 min
[2016-10-12] MEDS: Meropenem 1g/NS 100mL IVPB 1 GM/100 ML PIGGYBACK IVPB SCH ×2 (10:12→21:43)
[2016-10-12] MEDS: Sucralfate 1 gm/10 ml Oral Susp UD PO SCH ×2 (10:12→18:22)
--- NOTE | 2016-10-12 10:12 | CP.PCM.PN ---
Subjective - Date & Time of Evaluation Date of Evaluation: 10/12/16 Time of Evaluation: 08:50 - Subjective Subjective: Patient still feels weak, still with abdominal cramping but a little less, developed some low grade temperatures overnight but no overt fever. Objective - Vital Signs/Intake and Output Vital Signs (last 24 hours): Temp Pulse Resp BP Pulse Ox 97.8 F 100 H 17 142/80 86 L 10/12/16 06:33 10/12/16 06:33 10/12/16 06:33 10/12/16 06:33 10/12/16 05:18 Intake and Output: 10/12/16 10/12/16 06:59 18:59 Intake Total 3301 Output Total 425 Balance 2876 - Medications Medications: Current Medications Acetaminophen (Tylenol 325mg Tab) 650 mg PO Q6H PRN PRN Reason: Pain, Mild (1-3) Clotrimazole (Mycelex Deedee) 10 mg MT 5XD [facility] Last Admin: 10/12/16 08:45 Dose: 10 mg Meropenem 1g/NS 100mL IVPB (Meropenem 1g/Ns 100ml Ivpb) 1 gm in 100 mls @ 100 mls/hr IVPB Q12 [facility] PRN Reason: Protocol Stop: 10/16/16 16:34 Last Admin: 10/11/16 22:38 Dose: 100 mls/hr Sodium Chloride (Sodium Chloride 0.9%) 1,000 mls @ 150 mls/hr IV .Q6H40M [facility] Last Admin: 10/12/16 06:21 Dose: 150 mls/hr Metoprolol Tartrate (Lopressor) 5 mg IVP Q6H [facility] Last Admin: 10/12/16 06:04 Dose: 5 mg Morphine Sulfate (Morphine) 2 mg IVP Q2H PRN PRN Reason: Pain, severe (8-10) Last Admin: 10/11/16 19:39 Dose: 2 mg Mupirocin (Bactroban Ointment) 1 gm NS BID [facility] Stop: 10/15/16 18:01 Last Admin: 10/11/16 17:37 Dose: 1 applic Ondansetron HCl (Zofran Inj) 4 mg IVP Q6 [facility] Last Admin: 10/12/16 06:04 Dose: 4 mg Pantoprazole Sodium (Protonix Inj) 40 mg IVP DAILY [facility] Last Admin: 10/11/16 09:00 Dose: 40 mg Potassium Chloride (K-Dur 20 Meq Er Tab) 40 meq PO Q4H [facility] Stop: 10/12/16 16:16 Last Admin: 10/12/16 08:47 Dose: 40 meq Sucralfate (Carafate Oral Susp) 1 gm PO BID [facility] Last Admin: 10/11/16 20:52 Dose: 1 gm - Labs Labs: 10/12/16 07:00 10/12/16 07:00 PT 22.3 Seconds (9.9-11.8) H 10/12/16 07:00 INR 2.06 (0.93-1.08) H 10/12/16 07:00 APTT 39.9 Seconds (23.7-30.8) H 10/09/16 12:01 - Constitutional Appears: Non-toxic, No Acute Distress - Head Exam Head Exam: NORMAL INSPECTION - Neck Exam Neck Exam: absent: Lymphadenopathy, Meningismus - Respiratory Exam Respiratory Exam: Decreased Breath Sounds Additional comments: right anterior chest wall port site intact - Cardiovascular Exam Cardiovascular Exam: +S1, +S2 - GI/Abdominal Exam GI & Abdominal Exam: Soft, Tenderness (diffuse). absent: Distended, Guarding, Rigid, Rebound Assessment and Plan - Assessment and Plan (Free Text) Plan: Assessment Consider severe sepsis with acute renal failure due to acute enteritis in this patient with acute neutropenia from chemotherapy for her stage 4 colon cancer; stool for C. diff. is negative HTN 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 S/P colectomy in 2014 history of UTI GERD anxiety Plan continue Merrem day 3 and intermittent Vanco IV, and will hold off on PO Vancomycin and IV Flagyl since stool for C. diff. is negative; urine cx growing E. coli; patient ins on Mycelex by mouth - will give diflucan for the oral thrush and observe response Will continue to monitor clinically
[2016-10-12] MEDS ORDERED: Phytonadione 10 MG in Sodium Chloride 0.9% 50 ML IV ONE (10:13)
--- NOTE | 2016-10-12 10:40 | PN ---
DATE: 10/12/2016 SUBJECTIVE: The patient is seen in the ICU. She is lying in bed. She is still complaining of sever e lower abdominal pain. She still has diarrhea. She denies any chest tightness. She denies any betty rtness of breath. PHYSICAL EXAMINATION: GENERAL: Elderly lady, lying in bed. VITAL SIGNS: Blood pressure 142/80, heart rate 100, respiratory rate 17, temperature 97.8. HEENT: Normocephalic, atraumatic. NECK: Supple, no JVD. LUNGS: Bilateral equal air entry, no rales. CARDIAC: S1, S2, regular rate and rhythm, no murmur, no rub. ABDOMEN: Distended, soft, tenderness in the lower abdomen, bowel sounds present. EXTREMITIES: 2+ pitting edema of the lower extremities. INTAKE AND OUTPUT: 6000/1125. LABORATORY DATA: WBC 0.5, hemoglobin 8.2, hematocrit 22, platelets 19. Sodium 136, potassium 3.5, c hloride 108, CO2 19, BUN 86, creatinine 2.8, glucose 112, calcium 6.1, corrected calcium is 7.5, albu min 2.2, AST 17, ALT 40. Procalcitonin greater than 200. Urine culture: E. coli. CURRENT MEDICATIONS: Bactroban, Carafate, potassium 40 mEq x 3 doses, Lopressor, meropenem 1 gram q. 12, morphine sulfate, Protonix, normal saline at 150, Tylenol, Zofran, calcium gluconate 1 gram. ASSESSMENT: 1. Septic shock, improving. 2. Pancytopenia, recent chemotherapy. 3. Acute kidney injury, combination of acute tubular necrosis plus prerenal azotemia, improving. 4. Severe hypocalcemia. 5. Hypokalemia. 6. Non-anion gap metabolic acidosis. 7. Severe hypoalbuminemia. 8. Metastatic colon cancer with bone metastasis. 9. Escherichia coli urinary tract infection. PLAN: 1. Change IV fluids to 60 mL per hour. 2. Replace potassium. 3. Check magnesium levels. 4. Continue IV antibiotics, dose for creatinine clearance 10-30 mL per minute. 5. Avoid nephrotoxins. More than 35 minutes were spent in the care of this critically ill patient. Adele Griffin MD cc: [id number] TT: 10/12/2016 10:39:40 Confirmation # [id number] Dictation # [id number] en
--- NOTE | 2016-10-12 11:06 | US ---
HISTORY: inr COMPARISON: None. TECHNIQUE: Sonographic evaluation of the abdomen. FINDINGS: LIVER: Measures 16.1 cm. Normal echogenicity of the liver parenchyma. No mass. No intrahepatic bile duct dilatation. GALLBLADDER: There is sludge within the gallbladder. No evidence of gallstones, wall thickening or pericholecystic fluid. The sonographic Lucas's sign is negative. COMMON BILE DUCT: Measures 5.0 mm. No stones. No dilatation. PANCREAS: Unremarkable as visualized. No mass. No ductal dilatation. RIGHT KIDNEY: Measures 12.1cm. Normal echogenicity. No calculus, mass, or hydronephrosis. LEFT KIDNEY: Measures 11.0cm. Normal echogenicity. No calculus, mass, or hydronephrosis. SPLEEN: Normal in size and contour. No mass. AORTA: No aneurysmal dilatation. IVC: Unremarkable. OTHER FINDINGS: None. IMPRESSION: No evidence of cholelithiasis or biliary dilatation.
--- NOTE | 2016-10-12 11:54 | PN ---
DATE: 10/12/2016 Seen and examined at the bedside earlier today. The patient remains on neutropenic precaution. She does complain of sore throat. No nausea or vomiting. Does have abdominal pain and still having loos e bowel movement, but it is getting better. The patient is status post unit of platelets. VITAL SIGNS: Temperature 97.8, blood pressure 142/80, pulse rate 100, respirations 17. LABORATORIES: WBC 0.5, her hemoglobin is 8.2 and hematocrit 21.9, platelet is 19 and the manual is 2 5. is 22.3, INR is 2.06. Sodium 136, K 3.5, BUN is 86, creatinine is 2.8. Total bilirubin is 1.97, AST 17, ALT 40, alkaline phosphatase is 36. The patient did have a dose of vitamin K last nig ht. The patient did go for abdominal ultrasound this morning and that was negative for cholelithiasis or biliary dilatation. The common bile duct measured 5.0 mm. There is sludge in the gallbladder. PHYSICAL EXAMINATION: HEENT: Sclera is anicteric. NECK: Supple. CARDIAC: S1, S2. LUNG SOUNDS: With decreased breath sounds, but good air entry. ABDOMEN: With bowel sounds, soft, not really distended. There is diffuse tenderness to mid abdomen. LOWER EXTREMITIES: No edema. NEUROLOGIC: Awake, alert, oriented. She did have some altered mental status yesterday and they did have a CAT scan of the head that was negative. ASSESSMENT: This is a 61-year-old female with rectosigmoid carcinoma with low anterior resection. T he patient on radiation and chemo hoping stricture would open up. The patient admitted with bowel ob struction and has stricture at the proximal anastomosis. The patient did have colonoscopy, but this area could not be advanced further. The patient with pancytopenia, acute renal failure, diarrhea. H er stool for Clostridium difficile was negative. She is status post platelets. Anemia, urinary trac t infection, positive Escherichia coli. PLAN: Continue Carafate, PPI. She is on IV antibiotics of meropenem, Mycelex Deedee, morphine for p ain, Zofran for nausea. Continue to monitor electrolytes and her H and H. INR is 2.0. The patient going to get vitamin K. Diet is to be advanced to a pureed diet. Discussed with ICU resident. The patient was seen and case discussed with Dr. Null. Yoana IQBAL cc: [id number] TT: 10/12/2016 11:53:40 Confirmation # [id number] Dictation # [id number] en
[2016-10-12] MEDS: Aluminum Hydroxide/Magnesium 30 ML, DiphenhydrAMINE 75 MG, Lidocaine 2% Viscous 30 ML PO PRN (14:31)
[2016-10-12] MEDS: Petrolatum-Mineral Oil Oint (100gm) TOP SCH ×2 (14:37→21:42)
[2016-10-12 15:41] LABS: ALBUMIN 2.4 g/dL (3.0-4.8); BILIRUBIN,DIRECT 1.3 mg/dL (0.0-0.4)
[2016-10-12 15:53] LABS: CALCIUM 6.5 mg/dL (8.4-10.5)
[2016-10-12] MEDS ORDERED: DiphenhydrAMINE 50 mg/ml Inj IVP ONE (16:16)
[2016-10-12 17:18] LABS: HEMOGLOBIN 8.6 gm/dL (12.0-16.0); MEAN CORPUSCULAR HEMOGLOBIN 33.1 pg (25.0-35.0); MEAN CORPUSCULAR HGB CONC 38.9 g/dl (31.0-37.0); RED CELL DISTRIBUTION WIDTH 20.7 % (11.5-14.5)
[2016-10-12 17:26] LABS: WHITE BLOOD COUNT 0.9 10^3/ul (4.5-11.0)
[2016-10-12 17:27] LABS: PLATELET COUNT 15 10^3/uL (120.0-450.0)
[2016-10-12] MEDS: Potassium & Sodium Phosphate PO SCH ×2 (18:22→22:15)
[2016-10-12 20:19] LABS: NEUTROPHIL 8 % (50.0-70.0)
[2016-10-12 20:21] LABS: BAND 39 % (0-2); LYMPHOCYTE 17 % (22.0-35.0); MONOCYTE 24 % (1.0-6.0)
[2016-10-12 20:22] LABS: EOSINOPHIL 5 % (0.0-3.0); METAMYELOCYTE 1 %; PLATELET ESTIMATE LOW (NORMAL)
[2016-10-12 20:25] LABS: PLATELET COUNT MANUAL 35 K/mm3 (120-450)
[2016-10-13] MEDS: Morphine 2 mg/ml ISec IVP PRN ×2 (01:56→16:35)
--- NOTE | 2016-10-13 05:06 | PN ---
DATE: 10/12/2016 The patient is in ICU bed 3. HISTORY OF PRESENT ILLNESS: This is a 61-year-old female with a recent diagnosis of stage IV metasta tic colon carcinoma with an obstructing lesion in the rectosigmoid, presenting with increasing proble ms with urination, found to have urinary retention with overflow, had to have a Salazar catheter put in secondary to involving metastatic cancer along with artifactual bony metastases, started on ra diation to the sacrum, also received 2 cycles of FOLFOX 6 based chemotherapy. Last chemotherapy had been given last . The patient completed a infusion on Saturday. She was seen in the ER on Saturday with some degree of diarrhea and also given Neulasta, then was admitted to the hospital o n Saturday with progressive weakness with intractable diarrhea, hypotension and what appeared to be se ptic shock clinically and was admitted to the hospital via the Emergency Room and admitted to the [facility]. She was over the last 24 hours and found to be pancytopenic and received a platelet transfu zachary through the night. We did not give a blood transfusion as there was a question of warm antibod y with the risk that she could have a potential reaction without proper intervention. Hemolytic work up has been requested and is in the process of . The patient also has significant enteritis of the small bowel as evidenced on the x-ray thought to be the direct effect of chemotherapy plus the fa ct that the local RT . Most of the enteritis was seen in the small bowel coinciding to the fact that this most likely is from 5-FU enteritis. The patient is gradually improving with hydration. S he was in renal azotemia ____ from the . The BUN and creatinine appears to be improving. The p atient is also noted to be thrombocytopenic, for which she received platelet transfusions last night. The patient also noted to have elevated bilirubin with normal liver functions pointing to a hemolyt ic aspect of it. Potentially DIC is in question and for that also additional workup requested today. OBJECTIVE: GENERAL: The patient is examined in bed. She is awake, weak, alert and oriented. Mouth is caked and dry. The patient's tongue is also dry. She is using Mycelex troches. Lips are cracked VITAL SIGNS: Reveal T-max of 97.5, pulse is 111, respirations 14 and blood pressure is 141/99. The patient is examined in bed. HEENT: Head is normocephalic, atraumatic. Temporal muscle wasting is noted. Examination of the adrienne pharynx reveals tongue and lips to be cracked. Tongue is coated and dry. The patient has difficulty in talking because of dry mouth and encouraged to drink as much fluids as possible orally warn ing that she should take anything cold because of the fact that recently she had -based chemothe rapy. Examination of the oropharynx reveals no ulcerations at this time. The patient complains of s ignificant burning in her mouth for which magic mouthwash has been ordered. NECK: Supple. There is no adenopathy. Trachea is in the midline. No jugular venous distention is noted. LUNGS: Clear to percussion and auscultation. CARDIOVASCULAR: Reveals tachycardia, S1 and S2 are normal. No gallop or murmur is heard. ABDOMEN: Soft. The patient has tenderness mostly in the right lower quadrant in the epigastric and the periumbilical area. Bowel sounds are normal. There is no evidence of any peritoneal signs. No rebound, rigidity or guarding is noted. EXTREMITIES: Reveals normal inspection. Negative for cyanosis or edema. Lower extremities also rev eals no cyanosis, clubbing or edema. NEUROLOGIC: The patient is awake, alert and oriented. Speech is normal. No focal deficits are note d. SKIN: Warm and dry, negative for any skin rashes at this time. LABORATORY DATA: Was reviewed. PATIENT'S MEDICATIONS INCLUDE: Tylenol 650 mg p.o. q. 6 h p.r.n., Mycelex troches 10 mg p.o. daily a nd meropenem 1 gram IV q. 12 hours. The patient is on IV fluids at 150 mL an hour. She is on calciu m gluconate IV added for the hypocalcemia and even though the corrected calcium could be low because of the hypoproteinemia as well, metoprolol tartrate 5 mg IV q. 6 h for tachycardia, morphine sulfate 2 mg IV q. 4 h p.r.n., applied topically to the sacral area, Zofran 4 mg IV q. 6 h p.r.n. and Protonix 40 mg IV daily. The patient is on K-Dur tablets 40 mEq p.o. q. 4 h and she is on sucralfate 1 gram p.o. b.i.d. The patient is also having treatment with DuoDERM patches for the sacral decubitu s along with the bacitracin. LABORATORY DATA: Was reviewed. White count is 5.9, hemoglobin 8.2, hematocrit 21.9, platelet count is 119,000 and manual count is 25. ANC at this time is 0.09. This is day 4 after the Neulasta. The patient's INR is 2.06, which could be a combination of both lack of oral intake for the last several weeks because she was only on liquid diet, coupled by the fact that she has been having intractable diarrhea, especially with normal LFTs points to the fact that this may not be related to acute liver dysfunction. Sodium is 136, K is 3.5, chloride is 108, CO2 is 19, BUN is 86, creatinine is 2.8, tota l protein is 4.6 and albumin of 2.2 and ____ ratio is 0.9. ASSESSMENT NOTES AND PLAN: A 61-year-old female with now pancytopenia, septic shock on antibiotics, on intravenous fluids and on neutropenic precautions. The patient is getting a dysphagia-modified d iet at this time. She is on a liquid diet and she is getting Ensure Clear at this time. She is on d eep venous thrombosis prophylaxis with sequential compression devices. She is on gastrointestinal pr ophylaxis with proton pump inhibitor and patient is going to be receiving fresh frozen plasma to toribio ect the coagulopathy. Workup for disseminated intravascular coagulopathy has been requested. FSP and fibrinogen has been requested. The enteritis with diarrhea appears to be improving. The patient mccabe s only had one episode of diarrhea earlier this morning. C. diff is negative, off p.o. vancomycin, o n Zofran and morphine as needed. For the stomatitis, the patient is on magic mouthwash. Oral thrush is slightly improved on clotrimazole troches. Diet has been updated to pureed diet on sucralfate an d Protonix right now. As far as renal concerns , the patient was very volume depleted and had a cute kidney injury, which is gradually improving and mild metabolic alkalosis which is being followed closely. The patient may need to be placed back on bicarb drip if it worsens. Hypocalcemia with co ncurrent hypoalbuminemia, the patient is on calcium gluconate x1 followed by a followup on the blood work. Leukopenia has slightly improved on neutropenic precautions. The patient is on Merrem day 4. Blood cultures have been negative. The patient was given 1 dose of vancomycin dosing based on rando m levels and not given further because of the acute kidney injury with clearance issues. The patient is pancytopenic, for which we are following the patient. The patient was due for 2 units, but has b een on hold because of further testing required for warm antibodies. In the meantime, the patient di d get premeds and received 1 unit of platelets and supplementing vitamin K along with FFP for now. Dakota Bo is working with the patient for keeping the muscles toned. I will discuss my findings with the int ensivist and follow the patient very carefully. Also, I had a detailed discussion with the patient's family including her mother and her [id number] and recounseled them as far as patient's course a nd overall prognosis is concerned. Routine blood work for the a.m. has been requested as well. Kedar Hendricks MD cc: [id number] TT: 10/13/2016 00:38:44 Confirmation # [id number] Dictation # [id number]
[2016-10-13] MEDS: Potassium & Sodium Phosphate PO SCH ×4 (06:09→22:37)
[2016-10-13] MEDS: Petrolatum-Mineral Oil Oint (100gm) TOP SCH ×4 (06:31→20:27)
[2016-10-13 07:10] LABS: ALBUMIN 2.3 g/dL (3.0-4.8)
[2016-10-13 07:20] LABS: CALCIUM 6.5 mg/dL (8.4-10.5)
[2016-10-13 08:21] LABS: MAGNESIUM 2.1 mg/dL (1.7-2.2)
--- NOTE | 2016-10-13 08:43 | PN ---
DATE: 10/11/2016 This patient was seen and evaluated earlier. This is a delayed dictation. Discussed with the equipment maintenance engineer and also Dr. Hendricks. Denies any diarrhea. The patient wants to eat food. Tolerating a liquid diet. This is an addendum to the GI progress report dictated by Yoana Osei APN. PHYSICAL EXAMINATION: ABDOMEN: Soft. Mild tenderness present on deep palpation. LABORATORY DATA: WBC 0.2, hemoglobin 7.8, platelet count 8. The patient's urine culture positive for E. coli. The patient's INR remains elevated to 1.87 yesterday, but slightly on the downward trend. It was 2.92. 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 The patient does have an ANC of 200. Urine culture positive for Escherichia coli. The patient has coagulopathy. The differential diagnosis for coagulopathy should include liver hepatic dysfunction, malabsorption, could be due to malnutrition. Hematology etiology also to be considered, including disseminated intravascular coagulation.. We will continue to closely follow up her care and suggest further management based on the clinical course. Tong Null MD cc: [id number] TT: 10/13/2016 08:43:15 Confirmation # [id number] Dictation # [id number] tn MTDD
--- NOTE | 2016-10-13 08:53 | PN ---
DATE: 10/12/2016 This is an addendum to the GI progress report dictated by Yoana Osei APN. Discussed with Dr. Hendricks earlier today. The patient has no diarrhea now, significant diarrhea, but the concern is the elevated LFTs and also mainly total bilirubin and also INR. The differential hepatic dysfunction. PHYSICAL EXAMINATION: ABDOMEN: Soft. There is mild tenderness present in the deep palpation, otherwise unremarkable. The etiology for the elevated LFTs is unclear. The differential diagnosis should include hepatic dysfunction secondary to sepsis and also drug-induced etiology to be considered. Denies any bleeding per rectum. No vomiting blood. The patient also complaining of sore mouth and also some thrush in the mouth. Diflucan was deferred. RECOMMEND: 1. Close followup of the PT/INR. In view of significantly elevated PT, the patient did receive vitamin K yesterday. The patient's platelet count is also low. It has been requested by the pin ticket machine operator for [facility]. 2. We will continue to closely follow up her care and suggest further management based on the clinical course. Meanwhile, we will continue only the clear liquid diet. We will continue to follow up the LFTs. The patient has other comorbidities, include acute kidney injury, sepsis, E. coli in the urine. The patient now only on Merrem, meropenem. Follow up of the LFTs and INR. Thank you very much for allowing us to participate in the care of the patient. Tong Null MD cc: [id number] TT: 10/13/2016 08:52:50 Confirmation # [id number] Dictation # [id number] tn MTDD
[2016-10-13 09:00] LABS: BASO # 0.03 K/mm3 (0.0-2.0); BASO % 1.3 % (0.0-3.0); EOS % 0.4 % (1.5-5.0); GRAN # 1.77 (1.4-6.5); GRAN % 74.7 % (50.0-68.0); HEMOGLOBIN 8.4 gm/dL (12.0-16.0); LYMPH # 0.2 (1.2-3.4); LYMPH % 9.3 % (22.0-35.0); MEAN CELL VOLUME 74.4 fL (80.0-105.0); MEAN CORPUSCULAR HEMOGLOBIN 27.3 pg (25.0-35.0); MEAN CORPUSCULAR HGB CONC 36.7 g/dl (31.0-37.0); MONO # 0.3 (0.1-0.6); MONO % 14.3 % (1.0-6.0); RBC 3.08 10^6/uL (3.5-6.1)
[2016-10-13 09:05] LABS: WHITE BLOOD COUNT 2.4 10^3/ul (4.5-11.0)
[2016-10-13 09:06] LABS: PLATELET COUNT 14 10^3/uL (120.0-450.0)
[2016-10-13 09:08] LABS: PLATELET ESTIMATE LOW (NORMAL)
--- NOTE | 2016-10-13 09:29 | PN ---
DATE: 10/13/2016 The patient seen and examined at bedside. She is comfortable. She talks full sentences. She is not in respiratory or otherwise distress. She has appetite and she is eating her breakfast with appetite. PHYSICAL EXAMINATION: VITAL SIGNS: Heart rate 120, blood pressure 127/74, respiratory rate 24, oxygen saturation 96% on 2 liters nasal cannula. HEAD AND NECK: Atraumatic. LUNGS: Clear to auscultation bilaterally. HEART: Regular rate and rhythm. S1, S2 normal. ABDOMEN: Soft, nontender, nondistended. MUSCULOSKELETAL: No C/C/E. NEUROLOGIC: The patient moves all extremities spontaneously. SKIN: Moist. PSYCHIATRIC: The patient is alert and oriented x 3, not in respiratory or otherwise distress. LABORATORY DATA: WBC is 0.9, hemoglobin 8.6, platelet count 35. Sodium 143, potassium 3.8, chloride 113, carbon dioxide 205, BUN 99, creatinine 2.6 down from 2.7, AST 12, ALT 35. Microbiology results positive for Escherichia coli in the urine. Blood cultures so far negative. C. diff antigen negative. MEDICATIONS: Clotrimazole topical, meropenem, metoprolol p.r.n. and 25 mg p.o. b.i.d., morphine p.r.n., Zofran every 6 hours, Protonix, potassium supplementation, normal saline with potassium supplementation at 60 mL per hour. ASSESSMENT AND PLAN: This 61-year-old lady with a history of stage IV colon carcinoma who presented with severe sepsis secondary to XRT related to enteritis and associated with intra-abdominal infection. She has also had urinary tract infection. At present time, patient completely resuscitated. She is alert, awake, oriented x 3. She is comfortable. She is able to protect her airways. She is tolerating oral nutrition. She is on meropenem and ID service is following her as well. At present time, patient can go to telemetry. We will continue to target euvolemia, euglycemia, normothermia and oxygen saturation more than 90%. We will continue with gastrointestinal prophylaxis. The patient's pancytopenia is improving. ccm time 40 min Germain Estes MD cc: [id number] TT: 10/13/2016 09:28:34 Confirmation # [id number] Dictation # [id number] jn RODRIGO
[2016-10-13] MEDS: Aluminum Hydroxide/Magnesium 30 ML, DiphenhydrAMINE 75 MG, Lidocaine 2% Viscous 30 ML PO PRN (09:34)
[2016-10-13] MEDS: Sucralfate 1 gm/10 ml Oral Susp UD PO SCH ×2 (09:34→18:11)
[2016-10-13] MEDS: Meropenem 1g/NS 100mL IVPB 1 GM/100 ML PIGGYBACK IVPB SCH ×2 (09:34→22:07)
[2016-10-13 10:09] LABS: PLATELET COUNT MANUAL 20 K/mm3 (120-450)
--- NOTE | 2016-10-13 11:20 | CP.PCM.PN ---
Subjective - Date & Time of Evaluation Date of Evaluation: 10/13/16 Time of Evaluation: 09:40 - Subjective Subjective: Comfortable, afebrile, less abdominal cramping and pain. She does not have diarrhea anymore. No fevers overnight. Objective - Vital Signs/Intake and Output Vital Signs (last 24 hours): Temp Pulse Resp BP Pulse Ox 98.5 F 124 H 20 145/82 97 10/13/16 09:50 10/13/16 09:50 10/13/16 09:50 10/13/16 09:50 10/13/16 09:50 Intake and Output: 10/13/16 10/13/16 06:59 18:59 Intake Total 1095 Output Total 400 Balance 695 - Medications Medications: Current Medications Clotrimazole (Mycelex Deedee) 10 mg MT 5XD [facility] Last Admin: 10/13/16 09:34 Dose: 10 mg Al Hydrox/Mg Hydrox/Simethicone 30 ml/Diphenhydramine HCl 75 mg/Lidocaine 30 ml 0 ml PO Q2H PRN PRN Reason: Mouth/Throat Pain Last Admin: 10/13/16 09:34 Dose: 5 ml Meropenem 1g/NS 100mL IVPB (Meropenem 1g/Ns 100ml Ivpb) 1 gm in 100 mls @ 100 mls/hr IVPB Q12 [facility] PRN Reason: Protocol Stop: 10/16/16 16:34 Last Admin: 10/13/16 09:34 Dose: 100 mls/hr Potassium Chloride 20 meq/ (Sodium Chloride) 1,010 mls @ 60 mls/hr IV .Q12H50C [facility] Last Admin: 10/12/16 11:20 Dose: 60 mls/hr Metoprolol Tartrate (Lopressor) 25 mg PO BID [facility] Last Admin: 10/13/16 09:35 Dose: 25 mg Metoprolol Tartrate (Lopressor) 5 mg IVP Q6H PRN PRN Reason: Sustained HR > 130 Morphine Sulfate (Morphine) 2 mg IVP Q2H PRN PRN Reason: Pain, severe (8-10) Last Admin: 10/13/16 01:56 Dose: 2 mg Multi-Ingredient Ointment (Hydrophor Oint) 0 gm TOP Q6H [facility] Last Admin: 10/13/16 06:31 Dose: Not Given Mupirocin (Bactroban Ointment) 1 gm NS BID [facility] Stop: 10/15/16 18:01 Last Admin: 10/12/16 17:38 Dose: 1 applic Ondansetron HCl (Zofran Inj) 4 mg IVP Q6 [facility] Last Admin: 10/13/16 06:31 Dose: 4 mg Pantoprazole Sodium (Protonix Inj) 40 mg IVP DAILY [facility] Last Admin: 10/13/16 09:34 Dose: 40 mg Potassium Phos/Sodium Phos (Neutra-Phos) 1 pkt PO Q6H [facility] Last Admin: 10/13/16 06:09 Dose: Not Given Sucralfate (Carafate Oral Susp) 1 gm PO BID [facility] Last Admin: 10/13/16 09:34 Dose: 1 gm - Labs Labs: 10/13/16 06:50 10/13/16 06:50 PT 22.3 Seconds (9.9-11.8) H 10/12/16 07:00 INR 2.06 (0.93-1.08) H 10/12/16 07:00 APTT 39.9 Seconds (23.7-30.8) H 10/09/16 12:01 - Constitutional Appears: Non-toxic, No Acute Distress - Head Exam Head Exam: NORMAL INSPECTION - ENT Exam ENT Exam: Mucous Membranes Moist - Neck Exam Neck Exam: absent: Lymphadenopathy, Meningismus - Respiratory Exam Respiratory Exam: Decreased Breath Sounds Additional comments: right anterior chest wall port site clean, intact and non-tender - Cardiovascular Exam Cardiovascular Exam: +S1, +S2 - GI/Abdominal Exam GI & Abdominal Exam: Soft, Tenderness (mild). absent: Distended, Guarding, Rigid, Rebound Assessment and Plan - Assessment and Plan (Free Text) Plan: Assessment Consider severe sepsis with acute renal failure due to acute enteritis in this patient with acute neutropenia from chemotherapy for her stage 4 colon cancer; stool for C. diff. is negative Neutropenia probably from chemotherapy, improving HTN 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 S/P colectomy in 2014 history of UTI GERD anxiety Plan continue Merrem day 4 and d/c Vanco IV, and will hold off on PO Vancomycin and IV Flagyl since stool for C. diff. is negative; urine cx growing E. coli; patient is on Mycelex by mouth for oral thrush and will continue this Will continue to monitor clinically
[2016-10-13 11:27] LABS: INR 1.86 (0.93-1.08); PROTHROMBIN TIME 20.1 Seconds (9.9-11.8)
--- NOTE | 2016-10-13 13:36 | PN ---
DATE: 10/13/2016 SUBJECTIVE: The patient is seen in the ICU. She is lying in bed. She is awake. She is alert. She appears much more comfortable today. Family member is at bedside. She denies any nausea, vomiting, although she did have some episode of upchucking earlier when they were trying to turn her. She sti ll has some lower abdominal pain. Diarrhea is much improved. PHYSICAL EXAMINATION: GENERAL: Elderly lady lying in bed. VITAL SIGNS: Blood pressure 154/89, heart rate 126, respiratory rate 20, temperature 98.5. HEENT: Normocephalic and atraumatic. NECK: Supple, no JVD. LUNGS: Bilateral equal air entry, no rales. CARDIAC: S1, S2, regular rate and rhythm, no murmur, no rub. ABDOMEN: Obese, distended, soft, tenderness in the lower abdomen, bowel sounds present. EXTREMITIES: 2+ pitting edema of the lower extremities. INTAKE AND OUTPUT: 3858/880. LABORATORY DATA: WBC 2.4, hemoglobin 8.4, hematocrit 22.9, platelets 14, manual platelet count 20. Sodium 143, potassium 3.8, chloride 113, CO2 20, BUN 99, creatinine 2.6, glucose 91, calcium 6.5, wilbur sphorus 2.2, magnesium 2.1, albumin 2.3, corrected calcium is 7.6. CURRENT MEDICATIONS: Sucralfate 1 gram b.i.d., Lopressor p.r.n., Lopressor 25 p.o. b.i.d., meropenem 1 gram q. 12, morphine p.r.n., clotrimazole, Neutra-Phos 1 packet q. 6, Protonix 40, normal saline w ith potassium chloride at 60, vancomycin 1 gram given on the 2nd, vitamin K, Zofran. ASSESSMENT AND PLAN: 1. Status post septic shock. 2. Pancytopenia. 3. Acute kidney injury. 4. Hypokalemia. 5. Hyperphosphatemia. 6. Severe hypocalcemia. 7. Metastatic colon cancer with bone metastases. 8. History of cauda equina. 9. Indwelling Salazar. 10. Escherichia coli urinary tract infection. 11. Diarrhea. PLAN: 1. Continue IV fluids, replace potassium chloride with potassium phosphate. 2. Continue IV antibiotics as per infectious disease recommendations. 3. Avoid nephrotoxins. 4. Monitor bleeding because of some severe thrombocytopenia. Adele Griffin MD cc: [id number] TT: 10/13/2016 13:35:37 Confirmation # [id number] Dictation # [id number] jn
[2016-10-13] MEDS: Potassium Phosphate 15 MMOLE in Sodium Chloride 0.9% 1,000 ML IV SCH (16:26)
--- NOTE | 2016-10-13 19:57 | PN ---
DATE: 10/13/2016 SUBJECTIVE: This patient was seen and evaluated today earlier. The patient's family was at bedside. Also discussed at length with the barrow worker helper, resident and also with Dr. Hendricks. PHYSICAL EXAMINATION: VITAL SIGNS: Temperature is 98.4, heart rate 118, blood pressure is 136/72. HEENT: Atraumatic, anicteric. Mouth: There are some sores noted. NECK: Supple. HEART: S1, S2 heard. Tachycardic. LUNGS: Bilateral air entry present, slightly reduced at the base. ABDOMEN: Soft. There is mild tenderness on deep palpation present. EXTREMITIES: Bilateral pneumatic compressions present. NEUROLOGIC: Alert, oriented. Moves all the extremities. LABORATORY DATA: Hemoglobin 8.4, hematocrit 22.9, WBC is 2.4, platelets 14, 000. BUN 99, creatinine 2.6. Urine culture positive for E. coli and MRSA nasal positive. Her ANC has improved to ____. Her INR is 1.86 and total bilirubin 1.9, showing some downward change. IMPRESSION: This is a 61-year-old patient with rectosigmoid carcinoma, status post resection. Has recurrent metastatic to the bone and also to the colon causing stricture proximal to the anastomosis. Unable to pass the scope. The patient is status post radiation and chemo, admitted with diarrhea, acute renal failure and sepsis. The patient presently on meropenem for sepsis urinary tract infection. Neutrophil count has improved. Concern is elevated LFTs, mainly total bilirubin and INR. It is now showing downward trend. ANC is improving. The patient has a partial obstructing lesion, unable to pass the scope. Give the patient only a full liquid diet and nutritional supplements. The patient may not be able to tolerate solid food until the patency of the opening ____ and the stricture is ____. The patient may benefit from flexible sigmoidoscopic examination, which we will consider once the patient recovers from this acute present episode. The present plan is to consider changing the diet to full liquid diet. Thank you very much for allowing us to participate in the care of the patient. We will continue to closely follow up her care and suggest further management based on the clinical course. Tong Null MD cc: [id number] TT: 10/13/2016 19:57:06 Confirmation # [id number] Dictation # [id number] karla WALLACE
--- NOTE | 2016-10-13 21:16 | PN ---
DATE: 10/13/2016 The patient is in ICU, bed 3. SUBJECTIVE: The patient is examined at bedside. She is comfortable. Still complaining of dryness o f the mouth. Able to talk full sentences. Says she is not in any respiratory distress. The patient tells me that her abdominal pain has decreased substantially. Not only that her back pain is also b laura. The patient does have an appetite and she is eating her breakfast. I had spoken to Dr. Rick stallworth earlier today and he suggested that she still should remain on full liquids for now because of th e enteritis that we documented. The patient still has a prolonged INR, thrombocytopenic and she need s to be monitored very carefully in the unit for an extra next day. PHYSICAL EXAMINATION: VITAL SIGNS: Stable. Heart rate is 120, blood pressure 127/74, respirations 24, O2 sat is 96% on 2 liters nasal cannula. HEENT: Head is normocephalic, atraumatic. Examination of the mouth reveals tongue to be coated. Th e patient is on Mycelex troches for the tongue infection. The patient complains of tremendous sorene ss in the mouth with burning. Told her to use baking soda gargles for now. She is on Magic Mouthwas h as well and is to use a soft toothbrush. Her lips are cracked for which she is using topical cream s. NECK: Supple. There is no adenopathy. No jugular venous distention is noted. LUNGS: Clear to percussion and auscultation. HEART: Reveals PMI to be in the 5th intercostal space inside the midclavicular line. S1 and S2 are normal. No gallop or murmur is heard. ABDOMEN: Soft. The patient has tenderness in the right lower abdomen on deep palpation. No r ebound, rigidity or guarding is noted. Bowel sounds are present. EXTREMITIES: Examination of lower extremities reveals no cyanosis, clubbing or edema. The patient h as a Salazar catheter in place with a leg bag draining clear urine. NEUROLOGIC: The patient is having no focal deficits. SKIN: Is moist. PSYCHIATRIC: The patient is awake, alert, and oriented x 3 and is not in any acute distress. LABORATORY DATA: Reveals a white count of 2.4 with an ANC of 1.7, hemoglobin 8.6, platelet count of 35. Sodium is 140, potassium is 3.8, chloride is 113, CO2 is 20, BUN is 99, creatinine 2.6 from 2.7, AST is 12, ALT is 35, INR is 1.86. Microbiology tests shows the patient has E. coli in the urine. Blood cultures are negative. C. diff antigen is negative. MEDICATIONS: Include clotrimazole topical, meropenem, metoprolol , morphine p.r.n., Zofran ever y 6 hours, Protonix, normal saline, potassium supplementation at 60 mL an hour. ASSESSMENT NOTES AND PLAN: The patient is a 61-year-old female with catherine sepsis after chemotherapy for stage IV metastatic colon carcinoma, enteritis associated with chemotherapy with intra-abdominal infection, urinary tract infection. The patient was hypotensive and has been from the point of view. She is awake, alert, and oriented. She is able to protect her airway. She is tolerating to oral nutrition on meropenem and ID is following at this time. Will continue to target euvolemia and euglycemia and follow the patient's condition very carefully. Pancytopenia is improving. I had a de tailed discussion with the ICU resident and the flight director. My concern is that she still has some c oagulation abnormalities and that her platelet count is still 20,000 and she is still tachycardic and I would like to observe her 1 more day additionally in the unit where nursing care is superior than on the floor. Today's white count as I mentioned is 2.4 with an ANC of 1.7 and platelet count manual ly is 20,000. Chemistries as I mentioned again reveals that the BUN and creatinine is shifting down. Total bilirubin is still persistently elevated at 1.9, AST and ALT are down, pointing to the fact t hat this could be a hemolytic process. We are still waiting for direct and indirect bilirubin. Dire ct bilirubin is 1.3 1.9, which tells me that some of it is from low grade hemolysis. I have di scussed my findings in detail with the patient and the patient's family. I also spoke with Dr. Rick stallworth who concurs that the patient should be watched carefully for 1 more night and have requested that she stay in the unit through tonight until tomorrow morning to get the repeat labs. Routine post ex am instructions have been given to the patient. I have ordered baking soda gargles for the patient's mouth. Kedar Hendricks MD cc: [id number] TT: 10/13/2016 21:16:32 Confirmation # [id number] Dictation # [id number] dn
[2016-10-14] MEDS: Petrolatum-Mineral Oil Oint (100gm) TOP SCH ×4 (01:49→21:00)
[2016-10-14] MEDS: Potassium & Sodium Phosphate PO SCH ×4 (05:31→23:10)
[2016-10-14 05:41] LABS: ALBUMIN 2.3 g/dL (3.0-4.8); MAGNESIUM 2.1 mg/dL (1.7-2.2)
[2016-10-14] MEDS: Potassium Phosphate 15 MMOLE in Sodium Chloride 0.9% 1,000 ML IV SCH ×2 (05:46→18:16)
[2016-10-14 05:57] LABS: CALCIUM 6.5 mg/dL (8.4-10.5)
[2016-10-14 08:47] LABS: BASO # 0.13 K/mm3 (0.0-2.0); BASO % 1.5 % (0.0-3.0); EOS % 0.1 % (1.5-5.0); GRAN # 7.25 (1.4-6.5); GRAN % 84.1 % (50.0-68.0); HEMOGLOBIN 8.9 gm/dL (12.0-16.0); LYMPH # 0.6 (1.2-3.4); LYMPH % 7.1 % (22.0-35.0); MEAN CELL VOLUME 75.5 fL (80.0-105.0); MEAN CORPUSCULAR HEMOGLOBIN 27.3 pg (25.0-35.0); MEAN CORPUSCULAR HGB CONC 36.2 g/dl (31.0-37.0); MONO # 0.6 (0.1-0.6); MONO % 7.2 % (1.0-6.0); RBC 3.26 10^6/uL (3.5-6.1); RED CELL DISTRIBUTION WIDTH 16.5 % (11.5-14.5); WHITE BLOOD COUNT 8.6 10^3/ul (4.5-11.0)
[2016-10-14 08:49] LABS: PLATELET COUNT 12 10^3/uL (120.0-450.0)
[2016-10-14 09:23] LABS: PLATELET COUNT MANUAL 12 K/mm3 (120-450)
[2016-10-14] MEDS: Sucralfate 1 gm/10 ml Oral Susp UD PO SCH ×2 (10:10→17:31)
[2016-10-14] MEDS: Meropenem 1g/NS 100mL IVPB 1 GM/100 ML PIGGYBACK IVPB SCH ×2 (10:11→22:35)
--- NOTE | 2016-10-14 11:14 | CP.PCM.PN ---
Subjective - Date & Time of Evaluation Date of Evaluation: 10/14/16 Time of Evaluation: 09:20 - Subjective Subjective: Had some loose stools this morning but not watery, much less abdominal pain and cramping, no fevers overnight. Objective - Vital Signs/Intake and Output Vital Signs (last 24 hours): Temp Pulse Resp BP Pulse Ox 97.1 F L 95 H 20 136/72 97 10/14/16 04:00 10/14/16 06:00 10/13/16 18:21 10/13/16 18:21 10/13/16 18:21 Intake and Output: 10/14/16 10/14/16 06:59 18:59 Intake Total 1470 Output Total 175 Balance 1295 - Medications Medications: Current Medications Clotrimazole (Mycelex Deedee) 10 mg MT 5XD [facility] Last Admin: 10/14/16 05:32 Dose: 10 mg Al Hydrox/Mg Hydrox/Simethicone 30 ml/Diphenhydramine HCl 75 mg/Lidocaine 30 ml 0 ml PO Q2H PRN PRN Reason: Mouth/Throat Pain Last Admin: 10/13/16 09:34 Dose: 5 ml Meropenem 1g/NS 100mL IVPB (Meropenem 1g/Ns 100ml Ivpb) 1 gm in 100 mls @ 100 mls/hr IVPB Q12 [facility] PRN Reason: Protocol Stop: 10/16/16 16:34 Last Admin: 10/13/16 22:07 Dose: 100 mls/hr Potassium Phosphate 15 mmole/ (Sodium Chloride) 1,005 mls @ 60 mls/hr IV .[id number] [facility] Last Admin: 10/14/16 05:46 Dose: 60 mls/hr Metoprolol Tartrate (Lopressor) 25 mg PO BID [facility] Last Admin: 10/13/16 18:11 Dose: 25 mg Metoprolol Tartrate (Lopressor) 5 mg IVP Q6H PRN PRN Reason: Sustained HR > 130 Morphine Sulfate (Morphine) 2 mg IVP Q2H PRN PRN Reason: Pain, severe (8-10) Last Admin: 10/13/16 16:35 Dose: 2 mg Multi-Ingredient Ointment (Hydrophor Oint) 0 gm TOP Q6H [facility] Last Admin: 10/14/16 01:49 Dose: 1 applic Mupirocin (Bactroban Ointment) 1 gm NS BID [facility] Stop: 10/15/16 18:01 Last Admin: 10/13/16 18:09 Dose: 1 applic Ondansetron HCl (Zofran Inj) 4 mg IVP Q6 [facility] Last Admin: 10/14/16 05:31 Dose: 4 mg Pantoprazole Sodium (Protonix Inj) 40 mg IVP DAILY [facility] Last Admin: 10/13/16 09:34 Dose: 40 mg Potassium Phos/Sodium Phos (Neutra-Phos) 1 pkt PO Q6H [facility] Last Admin: 10/14/16 05:31 Dose: 1 pkt Sucralfate (Carafate Oral Susp) 1 gm PO BID [facility] Last Admin: 10/13/16 18:11 Dose: 1 gm - Labs Labs: 10/14/16 05:05 10/14/16 05:05 PT 20.1 Seconds (9.9-11.8) H 10/13/16 11:00 INR 1.86 (0.93-1.08) H 10/13/16 11:00 APTT 39.9 Seconds (23.7-30.8) H 10/09/16 12:01 - Constitutional Appears: Non-toxic, No Acute Distress - Head Exam Head Exam: NORMAL INSPECTION - ENT Exam ENT Exam: Mucous Membranes Moist - Neck Exam Neck Exam: absent: Lymphadenopathy, Meningismus - Respiratory Exam Respiratory Exam: Decreased Breath Sounds - Cardiovascular Exam Cardiovascular Exam: +S1, +S2 - GI/Abdominal Exam GI & Abdominal Exam: Soft, Tenderness (mild, much improved compared to previous days). absent: Distended, Firm, Guarding, Rigid, Rebound Assessment and Plan - Assessment and Plan (Free Text) Plan: Assessment Consider severe sepsis with acute renal failure due to acute enteritis in this patient with acute neutropenia (now resolved) from chemotherapy for her stage 4 colon cancer; stool for C. diff. is negative Neutropenia probably from chemotherapy, resolved HTN 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 S/P colectomy in 2014 history of UTI GERD anxiety Plan continue Merrem day 5; urine cx growing E. coli; patient is on Mycelex by mouth for oral thrush and will continue this Will continue to monitor clinically
--- NOTE | 2016-10-14 21:51 | CP.PCM.PN ---
Subjective - Date & Time of Evaluation Date of Evaluation: 10/14/16 Time of Evaluation: 21:51 - Subjective Subjective: S:Patient was seen because she had complained of loose bowel movement x1. An order for antidiarrhoeal was requested by nurse. Patient had 3 loos bm yesterday when imodium was ordered and stool was collected for C.Diff. States that imodium did not work. Denies any blood or mucus in stool, abdominal pain, nausea, vomiting. Pertinent medical record was reviewed O: Last Vital Signs 3 Temp 97.9 F 10/15/16 00:00 Pulse 93 H 10/14/16 22:00 Resp 20 10/14/16 16:00 BP 126/82 10/14/16 16:00 Pulse Ox 94 L 10/14/16 16:00 Awake, alert, not in distress. GI:No abdominal distension. A:Diarrhoea. P: Lomotil P O x 1. Objective - Vital Signs/Intake and Output Vital Signs (last 24 hours): Temp Pulse Resp BP Pulse Ox 98.1 F 102 H 20 126/82 94 L 10/14/16 20:00 10/14/16 18:00 10/14/16 16:00 10/14/16 16:00 10/14/16 16:00 Intake and Output: 10/14/16 10/15/16 18:59 06:59 Intake Total 1120 Output Total 350 Balance 770 - Medications Medications: Current Medications Clotrimazole (Mycelex Deedee) 10 mg MT 5XD [facility] Last Admin: 10/14/16 17:31 Dose: 10 mg Al Hydrox/Mg Hydrox/Simethicone 30 ml/Diphenhydramine HCl 75 mg/Lidocaine 30 ml 0 ml PO Q2H PRN PRN Reason: Mouth/Throat Pain Last Admin: 10/13/16 09:34 Dose: 5 ml Meropenem 1g/NS 100mL IVPB (Meropenem 1g/Ns 100ml Ivpb) 1 gm in 100 mls @ 100 mls/hr IVPB Q12 [facility] PRN Reason: Protocol Stop: 10/16/16 16:34 Last Admin: 10/14/16 10:11 Dose: 100 mls/hr Potassium Phosphate 15 mmole/ (Sodium Chloride) 1,005 mls @ 100 mls/hr IV .Q10H3M [facility] Last Admin: 10/14/16 18:16 Dose: 100 mls/hr Metoprolol Tartrate (Lopressor) 25 mg PO BID [facility] Last Admin: 10/14/16 17:28 Dose: 25 mg Metoprolol Tartrate (Lopressor) 5 mg IVP Q6H PRN PRN Reason: Sustained HR > 130 Morphine Sulfate (Morphine) 2 mg IVP Q2H PRN PRN Reason: Pain, severe (8-10) Last Admin: 10/13/16 16:35 Dose: 2 mg Multi-Ingredient Ointment (Hydrophor Oint) 0 gm TOP Q6H [facility] Last Admin: 10/14/16 21:00 Dose: 1 applic Mupirocin (Bactroban Ointment) 1 gm NS BID [facility] Stop: 10/15/16 18:01 Last Admin: 10/14/16 17:27 Dose: 1 applic Ondansetron HCl (Zofran Inj) 4 mg IVP Q6 [facility] Last Admin: 10/14/16 17:31 Dose: 4 mg Pantoprazole Sodium (Protonix Inj) 40 mg IVP DAILY [facility] Last Admin: 10/14/16 10:10 Dose: 40 mg Potassium Phos/Sodium Phos (Neutra-Phos) 1 pkt PO Q6H [facility] Last Admin: 10/14/16 17:31 Dose: 1 pkt Sucralfate (Carafate Oral Susp) 1 gm PO BID [facility] Last Admin: 10/14/16 17:31 Dose: 1 gm - Labs Labs: 10/14/16 05:05 10/14/16 05:05 PT 20.1 Seconds (9.9-11.8) H 10/13/16 11:00 INR 1.86 (0.93-1.08) H 10/13/16 11:00 APTT 39.9 Seconds (23.7-30.8) H 10/09/16 12:01
[2016-10-14] MEDS ORDERED: Atropine-Diphenoxylate 0.025-2.5 mg Tab PO ONE ×2 (22:51→23:10)
--- NOTE | 2016-10-15 00:52 | PN ---
DATE: 10/14/2016 SUBJECTIVE: This patient was seen and evaluated and discussed with the resident. The patient did have episodes of loose bowel movements today. On full liquid diet. PHYSICAL EXAMINATION: VITAL SIGNS: Temperature is 98.1, pulse 102, blood pressure 126/82 HEENT: Atraumatic, anicteric. NECK: Supple. HEART: S1, S2 heard. LUNGS: Bilateral air entry present. ABDOMEN: Softly distended. She has some mild discomfort in the right lower quadrant area. EXTREMITIES: Pneumatic compressions present. LABORATORY DATA: Hemoglobin is 8.9, hematocrit 24.6. WBC 8.6, platelets 12, 000. BUN 119, creatinine 2.6, total bilirubin is 1.7. LFTs otherwise unremarkable. INR is 1.86 yesterday. IMPRESSION: This 61-year-old patient is status post chemoradiation for recurrent metastatic colonic carcinoma. The patient had a partially obstructing lesion proximal to the anastomosis of low anterior resection. The patient was admitted with sepsis, severe diarrhea, dehydration and acute kidney injury. The patient also found to have an elevated total bilirubin and also INR showing downward trend. The patient is on antibiotics for urinary tract infection. The patient's neutropenia has improved. RECOMMENDATIONS: Continue the clear liquid diet. Will continue to closely follow up her care. Would suggest a CT of the abdomen and pelvis with p.o. contrast to further evaluate the right lower quadrant discomfort to evaluate the cecum if the symptoms persist or are progressively increasing. Thank you very much for allowing us to participate in the care of the patient. Tong Null MD cc: [id number] TT: 10/15/2016 00:52:23 Confirmation # [id number] Dictation # [id number] mark WALLACE
--- NOTE | 2016-10-15 01:21 | PN ---
DATE: 10/14/2016 The patient is in ICU bed 3. PROBLEMS: This is a 61-year-old female, who was admitted with catherine sepsis, hypotensive shock throug h the Emergency Room post chemotherapy with FOLFOX 6 and Avastin for stage IV metastatic colorectal c arcinoma when she had presented with stenotic lesion and near obstruction of the rectosigmoid colon f rom her current cancer along with cauda equina syndrome with involvement of the sacrum secondary to m etastatic cancer. The patient had, in addition to that, other sites of metastatic disease as evidenc ed on the PET CT scan. The patient received the first cycle of chemotherapy uneventfully. The secon d cycle, when she started even despite getting the neulasta 48 hours after the chemothera py was given. The patient was admitted with hypotension resuscitated with at least more than 5 liters of fluid, started on broad spectrum antibiotics and blood count has come up. The patie nt still thrombocytopenia, anemia, and renal azotemia, which was gradually improving. OBJECTIVE: The patient has been on neutropenic precautions, which are going to be withdrawn today as the white count has jumped up to 8.7. Objectively, the patient has had some loose bowel movements l ate last night, early this morning, but not watery. The patient though she still complains of occasional right lower quadrant abdominal cramps. No fever . VITAL SIGNS: Earlier examination of vital signs was stable. T-max is 98.4, pulse is 95, respiration s 20, blood pressure is 136/72, . MEDICATIONS: Reviewed. She is on Mycelex Deedee 10 mg 4 times a day. She is on Magic Mouthwash swi sh and swallow p.r.n. She is on meropenem 1 gram IV piggyback q. 12 hours. She is on potassium phos phate in IV fluids at 60 mL an hour. She is on metoprolol 5 mg IV q. 6 hours p.r.n., morphine sulfate 2 mg IV q. 2 hours p.r.n. though the patient has not been taking that much. She is on topically to the lips which are cracked. She is on Bactroban ointment to the sacral decubitus. She is on Zofran 4 mg IV q. 6 hours p.r.n., pantoprazole 40 mg IV daily, Neutra-Phos 1 packet p.o. q. 6 hours, sucralfate 1 gram p.o. b.i.d. LABORATORY DATA: Reviewed. Her white count is 8.6, hemoglobin 8.9, hematocrit 24.6, platelet count is 12,000. Sodium is 143, K is 3.8, chloride is 114, CO2 is 18, BUN is 119 with a creatinine of 2.6, blood sugar is 95. PT/INR is still 1.86 with a PT of 20.6. PHYSICAL EXAMINATION: HEENT: Head is normocephalic, atraumatic. Temporal muscle wasting is noted. Mouth appears to be si gnificantly improved. There no oropharyngeal lesions. Tongue is moist. Lips are still cracked, but are getting better. NECK: Supple. There is no adenopathy. LUNGS: Clear to percussion and auscultation. CARDIOVASCULAR: Reveals S1 and S2 to be normal. No gallop or murmur is heard. ABDOMEN: Soft, mild tenderness compared to the prior visits, it is still noted in the right lower qu adrant. No rebound, rigidity, or guarding is noted. EXTREMITIES: No cyanosis, clubbing, or edema. NEUROLOGIC: No focal deficits are noted. BACK: No paraspinal tenderness. ASSESSMENT NOTES AND PLAN: The patient is getting over severe sepsis with renal azotemia, acute ente ritis, all chemotherapy related, which is gradually resolving. Stool for C. diff has been negative. Neutropenia is related to the chemotherapy, which is improved. Hypotension-induced acute kidney inj ury is improving. Her cauda equina syndrome with severe pain that she had, for which was requiring I V narcotics, appears to have clinically improved. The patient is no longer in pain. Still has an in dwelling Salazar catheter which is draining clear urine. Nurse tells me they have been draining the ba g every shift about 320 mL of urine, which appears to be appropriate accounting for about 30 mL an ho ur. The patient has gastroesophageal reflux disease and anxiety. PLAN: We will continue IV antibiotics, continue Mycelex. Follow the blood counts carefully. The kim valentin is going to be scheduled for a CAT scan of the abdomen and still keep her on clear liquids only . Dr. Null has strictly instructed us not to change the diet until he sees the patient after the CAT scan and make a decision. Otherwise, we will plan to keep the patient in the unit for 1 more da y. Kedar Hendricks MD cc: [id number] TT: 10/14/2016 22:49:32 Confirmation # [id number] Dictation # [id number] tn
[2016-10-15] MEDS: Petrolatum-Mineral Oil Oint (100gm) TOP SCH ×3 (01:56→13:41)
[2016-10-15] MEDS ORDERED: DiphenhydrAMINE 12.5 mg/5 ml LIQ UD (5 ml) PO STA (02:26)
[2016-10-15] MEDS: Potassium Phosphate 15 MMOLE in Sodium Chloride 0.9% 1,000 ML IV SCH ×2 (04:07→16:44)
[2016-10-15] MEDS: Potassium & Sodium Phosphate PO SCH ×2 (05:28→12:03)
[2016-10-15 06:32] LABS: INR 1.58 (0.93-1.08); PROTHROMBIN TIME 17.1 Seconds (9.9-11.8)
[2016-10-15 06:38] LABS: ALB/GLOB RATIO 0.9 (1.1-1.8); MAGNESIUM 2.1 mg/dL (1.7-2.2)
[2016-10-15 07:09] LABS: CALCIUM 6.3 mg/dL (8.4-10.5)
--- NOTE | 2016-10-15 07:34 | PN ---
DATE: 10/12/2016 ADDENDUM: This is an addendum to the progress report dictated by Yoana Osei APN. The patient is discussed wit h Dr. Hendricks earlier. The patient received vitamin K yesterday and due to have the FFP today. The patient's bilirubin is elevated. Hepatic dysfunction has to be considered. The patient is presently only on meropenem for IV antibiotics. The etiology for hepatic dysfunction should include sepsis, d rug induced also to be considered. We would increase the patient to be only on liquid diet. Continu e to closely follow up her care. Thank you very much for allowing us to participate in the care. Tong Null MD cc: [id number] TT: 10/13/2016 08:09:09 Confirmation # [id number] Dictation # [id number] kyle 10/15/2016 06:33:00
[2016-10-15 07:48] LABS: HEMOGLOBIN 8.3 gm/dL (12.0-16.0); MEAN CELL VOLUME 76.5 fL (80.0-105.0); MEAN CORPUSCULAR HEMOGLOBIN 27.9 pg (25.0-35.0); MEAN CORPUSCULAR HGB CONC 36.4 g/dl (31.0-37.0); RBC 2.98 10^6/uL (3.5-6.1); RED CELL DISTRIBUTION WIDTH 16.9 % (11.5-14.5); WHITE BLOOD COUNT 17.5 10^3/ul (4.5-11.0)
[2016-10-15 07:49] LABS: PLATELET COUNT 19 10^3/uL (120.0-450.0)
[2016-10-15 08:41] LABS: PLATELET COUNT MANUAL 22 K/mm3 (120-450)
--- NOTE | 2016-10-15 09:02 | CP.PCM.PN ---
Subjective - Date & Time of Evaluation Date of Evaluation: 10/15/16 Time of Evaluation: 07:35 - Subjective Subjective: Comfortable in bed, less abdominal pain, improving bowel movement, no nausea, no fevers overnight. Objective - Vital Signs/Intake and Output Vital Signs (last 24 hours): Temp Pulse Resp BP Pulse Ox 98.3 F 82 20 126/82 94 L 10/15/16 04:00 10/15/16 06:00 10/14/16 16:00 10/14/16 16:00 10/14/16 16:00 Intake and Output: 10/15/16 10/15/16 06:59 18:59 Intake Total 2120 Output Total 225 Balance 1895 - Medications Medications: Current Medications Clotrimazole (Mycelex Deedee) 10 mg MT 5XD COUNT INCLUDES THE [facility] Last Admin: 10/15/16 05:48 Dose: 10 mg Al Hydrox/Mg Hydrox/Simethicone 30 ml/Diphenhydramine HCl 75 mg/Lidocaine 30 ml 0 ml PO Q2H PRN PRN Reason: Mouth/Throat Pain Last Admin: 10/13/16 09:34 Dose: 5 ml Meropenem 1g/NS 100mL IVPB (Meropenem 1g/Ns 100ml Ivpb) 1 gm in 100 mls @ 100 mls/hr IVPB Q12 RODRÍGUEZ PRN Reason: Protocol Stop: 10/16/16 16:34 Last Admin: 10/14/16 22:35 Dose: 100 mls/hr Potassium Phosphate 15 mmole/ (Sodium Chloride) 1,005 mls @ 100 mls/hr IV .Q10H3M COUNT INCLUDES THE [facility] Last Admin: 10/15/16 04:07 Dose: 100 mls/hr Metoprolol Tartrate (Lopressor) 25 mg PO BID COUNT INCLUDES THE [facility] Last Admin: 10/14/16 17:28 Dose: 25 mg Metoprolol Tartrate (Lopressor) 5 mg IVP Q6H PRN PRN Reason: Sustained HR > 130 Morphine Sulfate (Morphine) 2 mg IVP Q2H PRN PRN Reason: Pain, severe (8-10) Last Admin: 10/13/16 16:35 Dose: 2 mg Multi-Ingredient Ointment (Hydrophor Oint) 0 gm TOP Q6H COUNT INCLUDES THE [facility] Last Admin: 10/15/16 01:56 Dose: 1 applic Mupirocin (Bactroban Ointment) 1 gm NS BID COUNT INCLUDES THE [facility] Stop: 10/15/16 18:01 Last Admin: 10/14/16 17:27 Dose: 1 applic Ondansetron HCl (Zofran Inj) 4 mg IVP Q6 COUNT INCLUDES THE [facility] Last Admin: 10/15/16 05:49 Dose: 4 mg Pantoprazole Sodium (Protonix Inj) 40 mg IVP DAILY COUNT INCLUDES THE [facility] Last Admin: 10/14/16 10:10 Dose: 40 mg Potassium Phos/Sodium Phos (Neutra-Phos) 1 pkt PO Q6H COUNT INCLUDES THE [facility] Last Admin: 10/15/16 05:28 Dose: Not Given Sucralfate (Carafate Oral Susp) 1 gm PO BID COUNT INCLUDES THE [facility] Last Admin: 10/14/16 17:31 Dose: 1 gm - Labs Labs: 10/14/16 05:05 10/15/16 05:45 PT 17.1 Seconds (9.9-11.8) H 10/15/16 05:45 INR 1.58 (0.93-1.08) H 10/15/16 05:45 APTT 39.9 Seconds (23.7-30.8) H 10/09/16 12:01 - Constitutional Appears: Non-toxic, No Acute Distress - Head Exam Head Exam: NORMAL INSPECTION - Neck Exam Neck Exam: absent: Lymphadenopathy, Meningismus - Respiratory Exam Respiratory Exam: Decreased Breath Sounds Additional comments: right anterior chest wall port site clean and non-tender - Cardiovascular Exam Cardiovascular Exam: +S1, +S2 - GI/Abdominal Exam GI & Abdominal Exam: Soft, Tenderness (mild). absent: Distended, Guarding, Rigid, Rebound Assessment and Plan - Assessment and Plan (Free Text) Plan: Assessment Consider severe sepsis with acute renal failure due to acute enteritis in this patient with acute neutropenia (now resolved) from chemotherapy for her stage 4 colon cancer; stool for C. diff. is negative, slowly improving Neutropenia probably from chemotherapy, resolved HTN 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 S/P colectomy in 2014 history of UTI GERD anxiety Plan continue Merrem day 6; urine cx growing E. coli; patient is on Mycelex by mouth for oral thrush and will continue this Patient is for repeat CT scan of the abdomen and pelvis and we will follow up the results Will continue to monitor clinically
[2016-10-15] MEDS: Sucralfate 1 gm/10 ml Oral Susp UD PO SCH ×3 (09:15→17:12)
[2016-10-15] MEDS: Meropenem 1g/NS 100mL IVPB 1 GM/100 ML PIGGYBACK IVPB SCH ×2 (09:20→22:41)
[2016-10-15] MEDS: Aluminum Hydroxide/Magnesium 30 ML, DiphenhydrAMINE 75 MG, Lidocaine 2% Viscous 30 ML PO PRN (09:20)
--- NOTE | 2016-10-15 11:27 | PN ---
DATE: 10/15/2016 GI FOLLOWUP Seen and examined at the bedside this morning, states that she did have diarrhea. No bleeding. The abdominal pain on right side is a bit better, but complains more of discomfort when swallowing, unabl e to take increase fluids. No nausea or vomiting reported. VITAL SIGNS: Temperature 97.1, blood pressure 141/86. Pulse is 90. LABORATORY DATA: WBC is 17.5, hemoglobin 8.3. Hematocrit is 22.8. Platelet count is 19. Manual pl atelet is 22. PT is 17.1. INR is 1.58. Sodium 148. K is 3.8. BUN 128. Creatinine is 2.6. Total bilirubin 1.6, AST 13, ALT 31, alk phos of 56. Bilirubin is slowly improving. PHYSICAL EXAMINATION: HEENT: Sclerae are anicteric. NECK: Supple. CARDIAC: S1, S2. LUNGS: Lung sounds with decreased breath sounds, but good aeration. ABDOMEN: With bowel sounds, softly distended with right-sided lower quadrant discomfort, but is a bi t better. EXTREMITIES: With SCD boots. No edema. NEUROLOGIC: Awake, alert, oriented. ASSESSMENT: A 61-year-old female status post chemoradiation for metastatic colon carcinoma. The pat ient has partially obstructing lesion at the proximal ____ of the lower anterior resection, came with sepsis, had severe diarrhea, dehydration, and acute kidney injury. The patient is noted to have wiliam vated total bilirubin and INR, which is showing a downward trend. The patient also has urinary tract infection, neutropenia, and likely some monilial esophagitis. PLAN: We were considering repeating CT scan with oral contrast to evaluate the stricture, but right now, she is unable to tolerate a large volume of fluid. She is only able to take sips. So we will h old off for today and see how she is doing tomorrow. She is on Mycelex gaudencio and Carafate. Continu e GI prophylaxis and is on IV antibiotics with meropenem, morphine for pain, Zofran for nausea, and p otassium phosphate, as per ID, renal and oncology. The patient was seen and discussed with Dr. Rick stallworth. I spoke to nursing staff. Yoana Osei PAINTER BARREL-C cc: [id number] TT: 10/15/2016 11:26:41 Confirmation # [id number] Dictation # [id number] jn
--- NOTE | 2016-10-15 14:46 | PN ---
DATE: 10/15/2016 SUBJECTIVE: The patient is seen lying in bed. She is awake, she is alert. She reports she is havin g burning in the back of her chest. She also complains of lower abdominal pain. She denies any ches t tightness. PHYSICAL EXAMINATION: GENERAL: Elderly lady, sitting in bed. VITAL SIGNS: Blood pressure 141/86, heart rate 90, respiratory rate 18, temperature 97.1. HEENT: Normocephalic, atraumatic. NECK: Supple, no JVD. LUNGS: Bilateral equal air entry, no rales. CARDIAC: S1, S2, regular rate and rhythm, no murmur, no rub. ABDOMEN: Obese, distended, soft, nontender, bowel sounds present. EXTREMITIES: 3+ pitting edema of the lower extremities. INTAKE AND OUTPUT: 3240/575. LABORATORY DATA: WBC 17.5, hemoglobin 8.3, hematocrit 23, platelets 19. Sodium 148, potassium 3.6, chloride 118, CO2 17, BUN 128, creatinine 2.6, glucose 82, calcium 6.3, albumin 2.0, corrected calciu m is 7.7, phosphorus 5.9, magnesium 2.1, total bili 1.6. MEDICATIONS: Bactroban, Carafate, Lopressor, meropenem 1 gram q. 12, morphine sulfate, Neutra-Phos 1 packet q. 6, IV fluids with potassium phosphate at 100, Zofran, Protonix. ASSESSMENT: 1. Acute kidney injury superimposed on chronic kidney disease stage III. 2. Metastatic colon cancer with bone metastases. 3. Diarrhea. 4. Escherichia coli urinary tract infection. 5. Hypocalcemia. 6. Hypokalemia. 7. Resolved hypophosphatemia. 8. Severe hypoalbuminemia, anasarca. PLAN: 1. Change IV fluids to normal saline at 40 mL per hour. 2. Discontinue IV potassium phosphate. 3. Change Neutra-Phos to 1 packet b.i.d. 4. Continue IV antibiotics. 5. Monitor electrolytes closely. Adele Griffin MD cc: [id number] TT: 10/15/2016 14:45:27 Confirmation # [id number] Dictation # [id number] en
[2016-10-15] MEDS: Sodium Chloride 0.9% 1,000 ML IV SCH (14:49)
[2016-10-15] MEDS ORDERED: Acetaminophen 160 mg/5 ml UD PO STA (19:59)
[2016-10-16] MEDS: Petrolatum-Mineral Oil Oint (100gm) TOP SCH ×4 (00:37→15:30)
--- NOTE | 2016-10-16 02:50 | PN ---
DATE: 10/15/2016 ADDENDUM: SUBJECTIVE: This patient was seen and evaluated earlier today. Discussed with Dr. Hendricks and also ICU staff. This patient has had right lower quadrant abdominal discomfort, is slightly better. She has episodes of loose bowel movements. Unable to take p.o., was complaining of burning discomf ort. PHYSICAL EXAMINATION: She has some tenderness in the right lower quadrant area. No rebound or guard ing. LABORATORY DATA: Review of the lab showed white cell count is elevated to 17.5. Platelet count stil l remains low, 19,000. BUN 128, creatinine 2.6. IMPRESSION: This 61-year-old patient with rectosigmoid carcinoma status post low anterior resection has recurrent metastasis stenosis of the colon proximal to the stricture proximal to the anastomosis area. Status post radiation and chemo, admitted with acute kidney injury, chronic kidney disease, se psis, urinary tract infection, diarrhea and dehydration. The patient's neutropenia has improved; how ever; still has low platelet count. The patient also developed hepatic dysfunction, with elevated to vlad bilirubin now trending downward to 1.6. Coagulation also has improved to 1.58. PLAN: The present plan is to consider repeating the CT with p.o. contrast since the patient is findi ng it difficult to swallow the p.o. contrast now. Will wait a day more to assess and to evaluate. T hen, will consider repeating the CT with the p.o. contrast, especially to evaluate the left colon str icture and also to evaluate the right lower quadrant tenderness cecum area. Thank you very much for allowing me to participate in the care of the patient. This is an addendum t o the GI progress report dictated by Yoana Osei NP. Tong Null MD cc: [id number] TT: 10/16/2016 02:49:46 Confirmation # [id number] Dictation # [id number] mark
--- NOTE | 2016-10-16 03:21 | PN ---
DATE: 10/15/2016 The patient is in ICU bed 3. PROBLEMS: This is a 61-year-old female who was admitted ____ septic shock, post-FOLFOX, Avastin chem otherapy, stage IV metastatic colon CA in renal failure, along with ____ counts which are all gradual ly improving. The patient is still currently in the ICU. The patient is examined at the bedside, st ates she did have some diarrhea, no bleeding. Abdominal pain on the right side of her abdomen on the right lower quadrant is a bit better, still complains of difficulty swallowing and is unable to incre ase the oral intake. No nausea or vomiting reported. PHYSICAL EXAMINATION: VITAL SIGNS: Stable. T-max is 98.4, blood pressure is 141/86, pulse of 90. HEENT: Head is normocephalic, atraumatic. Temporal muscle wasting is noted. Examination of the ey es, sclerae to be anicteric. Pupils are equally reactive to light and accommodation. Examination of the oropharynx reveals tongue to be moist. No oropharyngeal lesions are seen. Lips are still excor iated, but improved and well hydrated. NECK: Supple. There is no adenopathy. No jugular venous distention noted. LUNGS: Clear to percussion and auscultation. HEART: Reveals S1 and S2 to be normal. No gallop or murmur is heard. ABDOMEN: Soft, mildly distended. Right lower quadrant discomfort is improved. There is no rebound, rigidity or guarding. No other masses are felt. EXTREMITIES: Reveals no cyanosis, clubbing or edema. The patient has SCD stockings on. The patient has an indwelling Salazar catheter with a leg bag. NEUROLOGIC: Reveals higher functions to be normal, no focal deficits are noted. LABORATORY DATA: From today reveals a white count of 17.5, hemoglobin 8.3, hematocrit 22.8, platelet count is 19, manual count is higher at 22. PT 17.1, INR is trending down at 1.58. Sodium is 148, K is 3.8, BUN is 128, creatinine 2.6, total bilirubin is 1.6 coming down. AST ____, ALT is 31, alkali ne phosphatase is 56 and bilirubin is slowly improving. ASSESSMENT NOTES AND PLAN: A 61-year-old female with metastatic stage IV colon carcinoma status post chemotherapy, admitted with ____ sepsis, hypotensive shock, renal azotemia. Currently on antibiotic s with one drug, Merrem, is slowly improving and then having intermittent diarrhea, which has been co mpensated with IV fluids and oral intake. The elevated PT and INR gradually ____ downward trend. The patient has urinary tract infection with Escherichia coli and probably ____ esophagitis as well. The plan is to continue the current IV antibiotics and IV fluids. We will continue GI and DVT prophylax is. Renal saw the patient and made some modifications in her IV fluids at this time. The IV fluid i s changed to normal saline 40 an hour. Discontinue the IV potassium phosphate. Change ____ to 1 packe t b.i.d. and continue the IV antibiotics. Routine labs have been requested for a.m. CAT scan of the abdomen with oral contrast had been held as the patient was not feeling well. Today we will reassess the patient in a.m. Discussed my findings in detail with the patient and spoke to the family as sheila noriega Kedar Hendricks MD cc: [id number] TT: 10/16/2016 02:11:42 Confirmation # [id number] Dictation # [id number] kyle 10/16/2016 02:20:30
[2016-10-16 07:03] LABS: ALB/GLOB RATIO 0.9 (1.1-1.8); ALBUMIN 2.1 g/dL (3.0-4.8); MAGNESIUM 2.4 mg/dL (1.7-2.2)
[2016-10-16 07:14] LABS: CALCIUM 6.8 mg/dL (8.4-10.5)
[2016-10-16 07:47] LABS: MEAN CELL VOLUME 88.4 fL (80.0-105.0); MEAN CORPUSCULAR HEMOGLOBIN 32.8 pg (25.0-35.0); MEAN CORPUSCULAR HGB CONC 37.1 g/dl (31.0-37.0); RBC 2.41 10^6/uL (3.5-6.1); RED CELL DISTRIBUTION WIDTH 23.1 % (11.5-14.5); WHITE BLOOD COUNT 18.3 10^3/ul (4.5-11.0)
[2016-10-16 07:55] LABS: HEMOGLOBIN 7.9 gm/dL (12.0-16.0)
[2016-10-16 07:56] LABS: PLATELET COUNT 24 10^3/uL (120.0-450.0)
[2016-10-16 08:44] LABS: PLATELET COUNT MANUAL 30 K/mm3 (120-450)
[2016-10-16] MEDS: Sucralfate 1 gm/10 ml Oral Susp UD PO SCH ×2 (09:51→17:52)
[2016-10-16] MEDS: Meropenem 1g/NS 100mL IVPB 1 GM/100 ML PIGGYBACK IVPB SCH ×2 (09:52→22:05)
[2016-10-16] MEDS ORDERED: Potassium & Sodium Phosphate PO SCH (10:00)
--- NOTE | 2016-10-16 10:15 | CP.PCM.PN ---
Subjective - Date & Time of Evaluation Date of Evaluation: 10/16/16 Time of Evaluation: 08:30 - Subjective Subjective: Having difficulty swallowing and therefore the scheduled CT abdomen and pelvis yesterday was cancelled. No diarrhea, less abdominal pain. No fevers overnight. Objective - Vital Signs/Intake and Output Vital Signs (last 24 hours): Temp Pulse Resp BP Pulse Ox 97.6 F 98 H 20 154/77 H 98 10/16/16 04:00 10/16/16 06:00 10/16/16 04:00 10/16/16 04:00 10/16/16 04:00 Intake and Output: 10/16/16 10/16/16 06:59 18:59 Intake Total 980 Output Total 600 Balance 380 - Medications Medications: Current Medications Clotrimazole (Mycelex Deedee) 10 mg MT 5XD [facility] Last Admin: 10/16/16 09:52 Dose: 10 mg Al Hydrox/Mg Hydrox/Simethicone 30 ml/Diphenhydramine HCl 75 mg/Lidocaine 30 ml 0 ml PO Q2H PRN PRN Reason: Mouth/Throat Pain Last Admin: 10/15/16 09:20 Dose: 30 ml Meropenem 1g/NS 100mL IVPB (Meropenem 1g/Ns 100ml Ivpb) 1 gm in 100 mls @ 100 mls/hr IVPB Q12 RODRÍGUEZ PRN Reason: Protocol Stop: 10/19/16 16:34 Last Admin: 10/16/16 09:52 Dose: 100 mls/hr Sodium Chloride (Sodium Chloride 0.9%) 1,000 mls @ 40 mls/hr IV .Q24H [facility] Last Admin: 10/15/16 14:49 Dose: 40 mls/hr Metoprolol Tartrate (Lopressor) 25 mg PO BID [facility] Last Admin: 10/16/16 09:52 Dose: 25 mg Metoprolol Tartrate (Lopressor) 5 mg IVP Q6H PRN PRN Reason: Sustained HR > 130 Multi-Ingredient Ointment (Hydrophor Oint) 0 gm TOP Q6H [facility] Last Admin: 10/16/16 09:52 Dose: 1 applic Ondansetron HCl (Zofran Inj) 4 mg IVP Q6 [facility] Last Admin: 10/16/16 06:24 Dose: 4 mg Pantoprazole Sodium (Protonix Inj) 40 mg IVP DAILY [facility] Last Admin: 10/16/16 09:52 Dose: 40 mg Potassium Phos/Sodium Phos (Neutra-Phos) 1 pkt PO DAILY [facility] Last Admin: 10/16/16 09:51 Dose: 1 pkt Sucralfate (Carafate Oral Susp) 1 gm PO BID [facility] Last Admin: 10/16/16 09:51 Dose: 1 gm - Labs Labs: 10/16/16 06:20 10/16/16 06:20 PT 17.1 Seconds (9.9-11.8) H 10/15/16 05:45 INR 1.58 (0.93-1.08) H 10/15/16 05:45 APTT 39.9 Seconds (23.7-30.8) H 10/09/16 12:01 - Constitutional Appears: Non-toxic, No Acute Distress - Head Exam Head Exam: NORMAL INSPECTION - ENT Exam ENT Exam: Mucous Membranes Moist - Neck Exam Neck Exam: absent: Lymphadenopathy, Meningismus - Respiratory Exam Respiratory Exam: Decreased Breath Sounds - Cardiovascular Exam Cardiovascular Exam: +S1, +S2 - GI/Abdominal Exam GI & Abdominal Exam: Soft. absent: Tenderness Assessment and Plan - Assessment and Plan (Free Text) Plan: Assessment Consider severe sepsis with acute renal failure due to acute enteritis in this patient with acute neutropenia (now resolved) from chemotherapy for her stage 4 colon cancer; stool for C. diff. is negative, slowly improving Neutropenia probably from chemotherapy, resolved HTN 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 S/P colectomy in 2014 history of UTI GERD anxiety Plan continue Merrem day 7; urine cx growing E. coli; patient is on Mycelex by mouth for oral thrush and will continue this Patient is for repeat CT scan of the abdomen and pelvis when she can swallow better and we will follow up the results Will continue to follow clinically
[2016-10-16] MEDS: Sodium Chloride 0.9% 1,000 ML IV SCH (15:31)
--- NOTE | 2016-10-16 15:47 | CP.PCM.PN ---
Subjective - Date & Time of Evaluation Date of Evaluation: 10/16/16 Time of Evaluation: 10:00 - Subjective Subjective: Seen and examined earlier at bedside. Sister at bedside. Still c/o burning throat. BM loose but frequency less, no blood. Abdominal pain better. Tolerated only small amount of liquids, few sips. No SOB or CP. Objective - Vital Signs/Intake and Output Vital Signs (last 24 hours): Temp Pulse Resp BP Pulse Ox 97.6 F 98 H 20 154/77 H 98 10/16/16 04:00 10/16/16 10:00 10/16/16 04:00 10/16/16 04:00 10/16/16 04:00 Intake and Output: 10/16/16 10/16/16 06:59 18:59 Intake Total 980 Output Total 600 Balance 380 - Medications Medications: Current Medications Clotrimazole (Mycelex Deedee) 10 mg MT 5XD [facility] Last Admin: 10/16/16 15:31 Dose: Not Given Al Hydrox/Mg Hydrox/Simethicone 30 ml/Diphenhydramine HCl 75 mg/Lidocaine 30 ml 0 ml PO Q2H PRN PRN Reason: Mouth/Throat Pain Last Admin: 10/15/16 09:20 Dose: 30 ml Meropenem 1g/NS 100mL IVPB (Meropenem 1g/Ns 100ml Ivpb) 1 gm in 100 mls @ 100 mls/hr IVPB Q12 RODRÍGUEZ PRN Reason: Protocol Stop: 10/19/16 16:34 Last Admin: 10/16/16 09:52 Dose: 100 mls/hr Sodium Chloride (Sodium Chloride 0.9%) 1,000 mls @ 40 mls/hr IV .Q24H [facility] Last Admin: 10/16/16 15:31 Dose: 40 mls/hr Metoprolol Tartrate (Lopressor) 25 mg PO BID [facility] Last Admin: 10/16/16 09:52 Dose: 25 mg Metoprolol Tartrate (Lopressor) 5 mg IVP Q6H PRN PRN Reason: Sustained HR > 130 Multi-Ingredient Ointment (Hydrophor Oint) 0 gm TOP Q6H [facility] Last Admin: 10/16/16 15:30 Dose: 1 applic Ondansetron HCl (Zofran Inj) 4 mg IVP Q6 [facility] Last Admin: 10/16/16 11:00 Dose: 4 mg Pantoprazole Sodium (Protonix Inj) 40 mg IVP DAILY [facility] Last Admin: 10/16/16 09:52 Dose: 40 mg Potassium Phos/Sodium Phos (Neutra-Phos) 1 pkt PO DAILY [facility] Last Admin: 10/16/16 09:51 Dose: 1 pkt Sucralfate (Carafate Oral Susp) 1 gm PO BID [facility] Last Admin: 10/16/16 09:51 Dose: 1 gm - Labs Labs: 10/16/16 06:20 10/16/16 06:20 PT 17.1 Seconds (9.9-11.8) H 10/15/16 05:45 INR 1.58 (0.93-1.08) H 10/15/16 05:45 APTT 39.9 Seconds (23.7-30.8) H 10/09/16 12:01 - Constitutional Appears: No Acute Distress, Cachectic - Head Exam Head Exam: NORMAL INSPECTION - Eye Exam Eye Exam: Normal appearance. absent: Scleral icterus - ENT Exam ENT Exam: Mucous Membranes Moist - Neck Exam Neck Exam: Normal Inspection - Respiratory Exam Respiratory Exam: NORMAL BREATHING PATTERN. absent: Respiratory Distress - Cardiovascular Exam Cardiovascular Exam: +S1, +S2 - GI/Abdominal Exam GI & Abdominal Exam: Soft, Tenderness (difuse right side), Normal Bowel Sounds. absent: Guarding, Rebound - Extremities Exam Extremities Exam: Pedal Edema. absent: Calf Tenderness - Neurological Exam Neurological Exam: Alert, Awake, Oriented x3 - Skin Skin Exam: Dry, Warm Assessment and Plan - Assessment and Plan (Free Text) Assessment: ASSESSMENT: Metestatic Colon Cancer s/p chemoradiation Sepsis Sever diarrhea, cdiff negative Dehydration with Acute Kidney Injury Thrombocytopenia UTI Esophagitis, monilial Anemia PLAN: Full liquid diet continue PPI, DVT prophylaxsis Carafate on Mycelex Deedee, Lidocain wash IV antibiotics , Meropenum Pain MGT. as per oncology Ct scan abdomen /pelvis when tolerated PO liquids, check for tomorrow Seen and discuss with Dr. Hernandez.
[2016-10-16] MEDS: Benzocaine 20% Cream(7 gm) MT PRN (17:54)
--- NOTE | 2016-10-16 19:09 | PN ---
DATE: 10/16/2016 SUBJECTIVE: The patient is currently seen in ICU bed 3. She has actually been transferred to [facility] and is awaiting a bed. The patient is complaining of profuse diarrhea. She remains on a minimal amount of IV fluid hydration. She is unable to swallow fluids because of severe stomatitis. She st ill continues to complain of right lower quadrant abdominal pain. MEDICATIONS: Medication list reviewed. The patient is currently on Carafate, Hydrophor ointment, Lo pressor, meropenem, Clotrimazole, Neutra-Phos, Protonix, normal saline 40 mL an hour and Zofran p.r.n . OBJECTIVE: INTAKE AND OUTPUT: Intake 980, output 800. VITAL SIGNS: Blood pressure 119/67, heart rate 82, respiratory rate is 15, temperature is 97.6. HEENT: Normocephalic, atraumatic. Conjunctivae are pale. NECK: Supple, no neck vein distention. CHEST: Clear to auscultation and percussion. CARDIOVASCULAR: S1, S2 normal, no murmurs, rubs, or gallops. ABDOMEN: Soft. No distention. Positive right lower quadrant tenderness on palpation. Bowel sounds are normal. No rebound, no guarding. EXTREMITIES: The patient has a compression device on her lower extremity. She has trace to 1+ thigh edema, pitting bilaterally. No pedal edema. LABORATORY DATA AND IMAGING: Abdominal CT scan showed normal kidneys. CBC: White blood cell count is up to 18.3, hemoglobin 7.9, platelet count is 24,000 with a manual platelet count of 30,000. Chem istries: Sodium is up to 152, potassium 3.4, carbon dioxide 16 with a chloride of 123. BUN 127 with a creatinine of 2.7. BUN is up from 59-127, creatinine is down from 3.5-2.7. Her baseline BUN is l ess than 10. Her baseline creatinine is less than 1.0. Bilirubin is mildly elevated at 1.7. Liver enzymes are normal. Calcium is 6.8. Calcium corrects to 8.3. Phosphorus is 6.6. The Neutra-Phos w ill be discontinued. Magnesium is 2.4. Vitamin D level was low at 24. MICROBIOLOGY: Urine cultures are positive for E. coli. Stool for C. diff is negative. Blood cultur es are negative at 5 days. ASSESSMENT: 1. Acute renal failure with prerenal azotemia, BUN 127, creatinine of 2.7 in a patient with no past history of chronic kidney disease. This is in the setting of severe volume depletion secondary to di arrhea. The patient of note has a hyperchloremic metabolic acidosis likely all secondary to severe d iarrhea. The patient will be started on hyperalimentation with increased acetate and decrease chlori de content. She will also remain on a low sodium hyperalimentation formula because of her sodium lev el of 152. We will cautiously supplement the potassium in the hyperalimentation. 2. Stage IV metastatic colon cancer with bone metastases. The patient recently has received chemoth erapy. Discussed with Dr. Hendricks in detail. 3. Severe diarrhea. Gastrointestinal evaluation in progress. 4. Escherichia coli urinary tract infection. The patient remains on IV antibiotic therapy. 5. Anemia secondary to acute renal failure and secondary to metastatic colon cancer. PLAN: 1. Discussed with Dr. Hendricks in detail. I will discontinue IV fluid hydration and start the patien t on hyperalimentation with a high acetate formula, low sodium formula, no magnesium, no phosphorus a nd we will cautiously increase the potassium in the hyperalimentation. 2. Discontinue Neutra-Phos. 3. Continue IV antibiotics for her E. coli urinary tract infection. 4. GI evaluation for her chronic and excessive diarrhea in progress. Stool for C. diff was negative . Kyle Brooks MD cc: [id number] TT: 10/16/2016 19:09:27 Confirmation # [id number] Dictation # [id number] chastity
[2016-10-16] MEDS: POTASSIUM CHLORIDE IV SCH (19:13)
[2016-10-16] MEDS: SODIUM BICARBONATE IV SCH (19:13)
[2016-10-16] MEDS: [UNRECOGNIZED DRUG - OTHER] IV SCH (19:13)
[2016-10-16] MEDS: DEXTROSE 5% IV SCH (19:13)
--- NOTE | 2016-10-16 19:16 | PN ---
DATE: 10/16/2016 SUBJECTIVE: This patient was seen and evaluated earlier today. The patient still has some burning s ensation with swallowing. Her p.o. intake remains low because of that. The patient on a liquid diet . She has been having several episodes of loose bowel movements now. No bleeding. She feels that t he right-sided abdominal discomfort has improved. PHYSICAL EXAMINATION: Abdomen is soft. There was mild tenderness present in the right lower quadran t area. ADDENDUM: This is an addendum to the GI progress report dictated by Yoana Osei APN. I did discuss with Dr. Hendricks also regarding this patient. The concern is about this ongoing diarrh ea. The stool for C. difficile has been negative. Most likely, this could be related to chemo related di arrhea. The reasonable thing is to consider slowing down the diarrhea, but will be very cautious wit h giving antidiarrheal in view of the colonic stricture. Would consider starting the patient on octr eotide with careful titration dose to slow down the diarrhea. Will continue to closely follow up her care and suggest further management based on the clinical course. Tong Null MD cc: [id number] TT: 10/16/2016 19:15:34 Confirmation # [id number] Dictation # [id number] chastity
[2016-10-16] MEDS: Aluminum Hydroxide/Magnesium 30 ML, DiphenhydrAMINE 75 MG, Lidocaine 2% Viscous 30 ML PO PRN (22:50)
--- NOTE | 2016-10-16 23:58 | PN ---
DATE: 10/16/2016 LOCATION: The patient is in room 364, bed 2. SUBJECTIVE: The patient is seen in the ICU, bed 3. She has been actually transferred to telemetry [facility] awaiting a bed. The patient is complaining of significant diarrhea. She still has significant mucositis of the mouth and difficulty swallowing liquids. She has a minimal amount of IV fluid hydra tion. She is unable to swallow liquids because of the severe stomatitis. Still continues to have in termittent complaints of right lower quadrant pain. MEDICATIONS: Reviewed. She is currently on Carafate, Hydrophor ointment, magic mouthwash, Lopressor , meropenem, clotrimazole, Neutra-Phos, Protonix, normal saline 40 an hour, and Zofran p.r.n. PHYSICAL EXAMINATION: GENERAL:. Intake is 980, output is 800. VITAL SIGNS: Blood pressure 119/67, heart rate is 82, respirations 15, T-max is 98.4. HEENT: Head is normocephalic, atraumatic. Temporal muscle wasting is noted. Conjunctivae pale. E xamination of the oropharynx reveals grade II mucositis of the mouth. Tongue is excoriated. Scatter ed areas of mucositis within the mouth. Lips are also excoriated and dry. She is using a cream for the same. The patient had been using magic mouthwash, which tells me badillo her, so she has not been using much of it. NECK: Supple. There is no adenopathy. No jugular venous distention noted. LUNGS: Clear to percussion and auscultation. CARDIOVASCULAR: Reveals S1 and S2 to be normal. No gallop or murmur is heard. ABDOMEN: Soft, mildly tender, positive tenderness is noted in the right lower quadrant. Bowel sound s are normal. No rebound, rigidity, or guarding is noted. EXTREMITIES: The patient has SCD compression in both lower extremities. She has trace to 1+ thigh e bonnie, pitting bilaterally. No pedal edema is noted. LABORATORY DATA: Reveals abdominal CAT scan showing normal kidneys. CBC shows the white count is up to 18; hemoglobin 7.9; platelet count is , and a manual count of 30,000. Chemistry: Sodium is up to 152, potassium is 3.4, CO2 16, with a chloride of 123, BUN of 127, a creatinine of 2.7. BUN i s from 59 to 127, creatinine is down from 3 to 2.7. Baseline BUN is less than 10. Baseline creatini ne is less than 1. Bilirubin is mildly elevated at 1.7 with normal liver enzymes, suggestive of hemo lytic pathway. Calcium is 6.8, corrected calcium is 8.3, phosphorus 6.6. Neutra-Phos will be discon tinued. Magnesium is 2.4. Vitamin D is low at 24. MICROBIOLOGY: Urine cultures are positive for E. coli. Stool for C. diff is negative. Blood cultur es are negative. ASSESSMENT NOTES AND PLAN: The patient has stage IV colon carcinoma on currently systemic chemothera py with FOLFOX-6 plus Avastin. Came in with sepsis, septic shock, acute renal failure, failure and severe enteritis of the bowel, all related to aftermath of the chemotherapy. Currently, still h aving diarrhea and acute renal failure; BUN of 127, creatinine of 2.7, with no past history of chroni c disease. This is in the setting of severe volume depletion secondary to diarrhea. The patient was noted to have hyperchloremic metabolic acidosis, most likely secondary to severe diarrhea. The antwon ent has been started on hyperalimentation with increased acetate and decreased chloride count. She a lso remains on low sodium hyperalimentation because her sodium of 152. Input from renal is very much appreciated. Will continue current management. Spoke with Dr. Null, who feels that right now i nserting a rectal tube would be detrimental to the patient. He is going to look into it later to see if the patient is a candidate for Sandostatin. In the meantime, will continue current antibiotics a nd increase the IV fluids. Routine post exam instructions have been given to the patient. The patie nt is going to be monitored very carefully over the next 24-48 hours, and we will continue to monitor her blood counts and blood work, especially the chemistries, very carefully. Kedar Hendricks MD cc: [id number] TT: 10/16/2016 23:57:31 Confirmation # [id number] Dictation # [id number] dn
[2016-10-17] MEDS: Petrolatum-Mineral Oil Oint (100gm) TOP SCH ×5 (01:14→21:45)
[2016-10-17 06:47] LABS: ALB/GLOB RATIO 0.9 (1.1-1.8); CALCIUM 7.3 mg/dL (8.4-10.5); MAGNESIUM 2.1 mg/dL (1.7-2.2)
[2016-10-17 08:18] LABS: MEAN CELL VOLUME 86.6 fL (80.0-105.0); MEAN CORPUSCULAR HEMOGLOBIN 30.1 pg (25.0-35.0); MEAN CORPUSCULAR HGB CONC 34.8 g/dl (31.0-37.0); RBC 2.39 10^6/uL (3.5-6.1); RED CELL DISTRIBUTION WIDTH 20.8 % (11.5-14.5)
[2016-10-17 08:19] LABS: HEMOGLOBIN 7.2 gm/dL (12.0-16.0)
[2016-10-17 08:20] LABS: PLATELET COUNT 30 10^3/uL (120.0-450.0)
[2016-10-17 08:53] LABS: PLATELET COUNT MANUAL 35 K/mm3 (120-450)
[2016-10-17 08:56] LABS: BAND 5 % (0-2); LYMPHOCYTE 3 % (22.0-35.0); MONOCYTE 4 % (1.0-6.0); NEUTROPHIL 88 % (50.0-70.0)
[2016-10-17 08:57] LABS: HYPOCHROMIA 1+; PLATELET ESTIMATE LOW (NORMAL); POIKILOCYTOSIS SLIGHT; POLYCHROMASIA SLIGHT
[2016-10-17 08:58] LABS: ANISOCYTOSIS 2+; NUCLEATED RED BLOOD CELL 1 %; OVALOCYTES SLIGHT; TEAR DROP CELLS SLIGHT
[2016-10-17] MEDS: Sucralfate 1 gm/10 ml Oral Susp UD PO SCH ×2 (09:25→18:35)
[2016-10-17] MEDS: Meropenem 1g/NS 100mL IVPB 1 GM/100 ML PIGGYBACK IVPB SCH (09:25)
--- NOTE | 2016-10-17 10:21 | PN ---
DATE: 10/17/2016 Seen and examined at the bedside earlier this morning. The patient was started on Sandostatin last n ight. She got 2 doses so far and no reports of diarrhea. The patient was reported to have urinary r etention. The Salazar was irrigated and had a return of 700 mL. This morning, the patient is lethargi c, but arousable. No distress noted. Still gets some throat pain. No reports of nausea, vomiting. VITAL SIGNS: Temperature is 97.6, blood pressure 121/69, pulse 85, respirations 22, 96% O2 saturatio n. LABORATORY DATA: WBC is 20.0, hemoglobin is 7.2, hematocrit is 20.7, platelet count is 30 and the ma nual is 35. Sodium 152, the potassium is 3.5, the BUN is 120, creatinine is 2.4, total bilirubin is 1.4, AST 13, ALT 30, alkaline phosphatase is 70. PHYSICAL EXAMINATION: HEENT: Sclerae are anicteric. NECK: Supple. CARDIAC: S1, S2. LUNGS: Sounds are clear. ABDOMEN: With bowel sounds, soft, mild tenderness to right quadrant, but no rebound or guarding. EXTREMITIES: Trace edema. NEUROLOGIC: The patient is slightly lethargic this morning, but arousable. ASSESSMENT: The patient with colon carcinoma, status post radiation, currently on chemotherapy. The patient came with sepsis and acute renal failure, severe enteritis and continues to have diarrhea. The patient did have stool for Clostridium difficile that was negative. Likely, diarrhea may be seco ndary from the chemotherapy. PLAN: Status post 2 doses of Sandostatin. The patient is to have 3 doses total q. 8 hours. She is d ue for one more dose today so far. I spoke to nursing staff. The patient with no episodes of diarrh ea. The patient remains on IV antibiotic, meropenem. She is going to be started on acyclovir. Cont inue the Mycelex troch. She is also being started on micafungin. Continue PPI, Carafate and is on I V fluids with potassium replacement. Continue to monitor closely. The patient was seen and discusse d with Dr. Null. Yoana IQBAL cc: [id number] TT: 10/17/2016 10:20:14 Confirmation # [id number] Dictation # [id number] rn
--- NOTE | 2016-10-17 12:44 | CP.PCM.CON ---
History of Present Illness - History of Present Illness History of Present Illness: Palliative consult requested by Dr Hans Gonzalez Reason: Goals of care,advance care planning 61 year old female with history of metastatic colon cancer who developed severe diarrhea and nausea after receiving combination chemo/radiation therapy. She was admitted with pancytopenia,neutropenic sepsis, CASANDRA, mucositis, hypotension . Past Medical History: color cancer, cauda equina syndrome, urinary retention, Social History: Non smoker, no alcohol or drug use. Lives with her parents Family History: Non contributory. Advance Care Planning: The patient does not have an Advance Directive. : Review of Systems - Constitutional Constitutional: Lethargy, Weight Loss, Weakness - EENT Nose/Mouth/Throat: Mouth Lesions, Mouth Pain - Gastrointestinal Gastrointestinal: Bloating, Dyspepsia, Loose Stools, Nausea - Genitourinary Additional comments: urinary retention - Musculoskeletal Musculoskeletal: Muscle Weakness - Integumentary Integumentary: Change in Hair, Skin Ulcer - Psychiatric Psychiatric: Anxiety Past Patient History - Infectious Disease Hx of Infectious Diseases: None - Tetanus Immunizations Tetanus Immunization: Unknown - Past Social History Smoking Status: Never Smoked - CARDIAC Hx Cardiac Disorders: Yes Hx Hypertension: Yes - PULMONARY Hx Respiratory Disorders: No - NEUROLOGICAL Hx Neurological Disorder: No - HEENT Hx HEENT Problems: Yes (Contacts/glasses) - RENAL Hx Chronic Kidney Disease: No - ENDOCRINE/METABOLIC Hx Endocrine Disorders: No - HEMATOLOGICAL/ONCOLOGICAL Hx Blood Disorders: Yes Hx Cancer: Yes (Colon/Basil CA) Hx Metastesis: Yes - INTEGUMENTARY 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) - MUSCULOSKELETAL/RHEUMATOLOGICAL Hx Musculoskeletal Disorders: Yes Hx Back Pain: Yes Hx Falls: No - GASTROINTESTINAL Hx Gastrointestinal Disorders: Yes Hx Gastroesophageal Reflux: Yes Other/Comment: Colon CA, colectomy 2015, IBS, Constipation - GENITOURINARY/GYNECOLOGICAL Hx Genitourinary Disorders: Yes Hx Urinary Tract Infection: Yes - PSYCHIATRIC Hx Psychophysiologic Disorder: Yes Hx Anxiety: Yes Hx Substance Use: No - SURGICAL HISTORY Other/Comment: lesion remove from chest wall - ANESTHESIA Hx Anesthesia Reactions: No Hx Malignant Hyperthermia: No Meds Allergies/Adverse Reactions: Allergies Allergy/AdvReac Type Severity Reaction Status Date / Time IV CONTRAST Allergy Severe SHORTNESS Uncoded 10/06/16 18:13 OF BREATH CAF Allergy Intermediate PALPITATION Uncoded 10/06/16 18:13 S - Medications Medications: Current Medications Benzocaine (Orajel Pm Maximum Strength) 0 gm MT QID PRN PRN Reason: Pain, moderate (4-7) Last Admin: 10/16/16 17:54 Dose: 1 dose Clotrimazole (Mycelex Deedee) 10 mg MT 5XD [facility] Last Admin: 10/17/16 09:26 Dose: 10 mg Al Hydrox/Mg Hydrox/Simethicone 30 ml/Diphenhydramine HCl 75 mg/Lidocaine 30 ml 0 ml PO Q2H PRN PRN Reason: Mouth/Throat Pain Last Admin: 10/16/16 22:50 Dose: 15 ml Meropenem 1g/NS 100mL IVPB (Meropenem 1g/Ns 100ml Ivpb) 1 gm in 100 mls @ 100 mls/hr IVPB Q12 RODRÍGUEZ PRN Reason: Protocol Stop: 10/19/16 16:34 Last Admin: 10/17/16 09:25 Dose: 100 mls/hr Potassium Chloride 20 meq/Sodium Bicarbonate 50 meq/Dextrose 1,060 mls @ 75 mls /hr IV .Q14H8M [facility] Last Admin: 10/16/16 19:13 Dose: 75 mls/hr Micafungin Sodium 50 mg/ (Sodium Chloride) 100 mls @ 100 mls/hr IV DAILY RODRÍGUEZ PRN Reason: Protocol Stop: 10/24/16 10:01 Last Admin: 10/17/16 11:20 Dose: 100 mls/hr Acyclovir 370 mg/ Sodium (Chloride) 100 mls @ 100 mls/hr IV DAILY [facility] PRN Reason: Protocol Last Admin: 10/17/16 11:20 Dose: 100 mls/hr Multivitamins/Vitamin C 10 ml/Chromium/Copper/Manganese/Zinc 1 ml/ Amino Acids 2,011 mls @ 83 mls/hr IV .Q24H [facility] Stop: 10/20/16 17:59 Fat Emulsion Intravenous (Intralipid 20%) 250 mls @ 11.905 mls/hr IV DAILY@ 1800 [facility] Stop: 10/20/16 17:59 Metoprolol Tartrate (Lopressor) 25 mg PO BID [facility] Last Admin: 10/17/16 09:25 Dose: 25 mg Metoprolol Tartrate (Lopressor) 5 mg IVP Q6H PRN PRN Reason: Sustained HR > 130 Multi-Ingredient Ointment (Hydrophor Oint) 0 gm TOP Q6H [facility] Last Admin: 10/17/16 09:26 Dose: 1 applic Octreotide Acetate (Sandostatin) 100 mcg SC Q8 [facility] Stop: 10/17/16 14:01 Last Admin: 10/17/16 05:58 Dose: 100 mcg Ondansetron HCl (Zofran Inj) 4 mg IVP Q6 [facility] Last Admin: 10/17/16 12:12 Dose: 4 mg Pantoprazole Sodium (Protonix Inj) 40 mg IVP DAILY [facility] Last Admin: 10/17/16 09:26 Dose: 40 mg Sucralfate (Carafate Oral Susp) 1 gm PO BID [facility] Last Admin: 10/17/16 09:25 Dose: 1 gm Physical Exam - Constitutional Appears: Cachectic, Chronically Ill - Head Exam Head Exam: NORMOCEPHALIC - Eye Exam Eye Exam: Normal appearance, PERRL - ENT Exam ENT Exam: Mucous Membranes Moist - Neck Exam Neck exam: Positive for: Normal Inspection - Respiratory Exam Respiratory Exam: Clear to Auscultation Bilateral, NORMAL BREATHING PATTERN - Cardiovascular Exam Cardiovascular Exam: REGULAR RHYTHM, +S1, +S2 - GI/Abdominal Exam GI & Abdominal Exam: Normal Bowel Sounds, Soft - Extremities Exam Extremities exam: Positive for: normal inspection, pedal pulses present - Back Exam Back exam: NORMAL INSPECTION - Skin Skin Exam: Dry, Pallor Additional comments: sacral decubiti Results - Vital Signs Recent Vital Signs: Last Vital Signs Temp 97.6 F 10/17/16 06:00 Pulse 85 10/17/16 09:25 Resp 22 10/17/16 06:00 BP 121/69 10/17/16 09:25 Pulse Ox 96 10/17/16 06:00 - Labs Result Diagrams: 10/17/16 06:00 10/17/16 06:00 Labs: Laboratory Results - last 24 hr 10/17/16 10/17/16 06:00 06:00 WBC 20.0 H RBC 2.39 L Hgb 7.2 L Hct 20.7 L* MCV 86.6 MCH 30.1 MCHC 34.8 RDW 20.8 H Plt Count 30 L* Manual Plt Count 35 L* Neutrophils % (Manual) 88 H Band Neutrophils % 5 H Lymphocytes % (Manual) 3 L Monocytes % (Manual) 4 Nucleated RBC % 1 Platelet Evaluation Low Polychromasia Slight Hypochromasia 1+ Poikilocytosis (manual Slight Anisocytosis (manual) 2+ Tear Drop Cells Slight Ovalocytes Slight Sodium 152 H Potassium 3.5 L Chloride 122 H* Carbon Dioxide 18 L Anion Gap 16 BUN 120 H Creatinine 2.4 H Est GFR ( Amer) 25 Est GFR (Non-Af Amer) 20 Random Glucose 185 H Calcium 7.3 L Phosphorus 6.3 H Magnesium 2.1 Total Bilirubin 1.4 H AST 13 L ALT 30 Alkaline Phosphatase 70 Total Protein 4.3 L Albumin 2.0 L Globulin 2.3 Albumin/Globulin Ratio 0.9 L Assessment & Plan - Assessment and Plan (Free Text) Assessment: 61 year old female admitted with neutropenic sepsis, pancytopenia, CASANDRA, mucositis, Cauda Equina syndrome and urinary retention. History of metastatic colon cancer with an obstructing lesion in the rectosigmoid area. Recently received chemotherapy/XRT. Patient is alert, weak. She difficulty speaking and swallowing due burning feeling in mouth and throat. Her lips are swollen and cracked Her appetite is poor. Met with patient and her sister, I explained that Palliative care was a resource service which would provide additional support during her hospitalization. We had a brief discussion about difficulties of managing serious illness. She was attentive and communicative but tired easily during our visit.I assured her I would continue to visit her throughout her hospitalization. Plan: All reports reviewed, current medications reviewed. Continue current treatment regimen,no new recommendations. Will provide psychosocial support and assist with establishing future goals of care
[2016-10-17] MEDS: [UNRECOGNIZED DRUG - OTHER] IV SCH (13:35)
[2016-10-17] MEDS: POTASSIUM CHLORIDE IV SCH (13:35)
[2016-10-17] MEDS: SODIUM BICARBONATE IV SCH (13:35)
[2016-10-17] MEDS: DEXTROSE 5% IV SCH (13:35)
--- NOTE | 2016-10-17 14:29 | PN ---
DATE: 10/17/2016 SUBJECTIVE: The patient is seen lying in bed. She is resting comfortably. As per the nursing staff , she was having a lot of abdominal pain earlier. She was also complaining of some nausea. Appetite is poor. Intake is poor. PHYSICAL EXAMINATION: GENERAL: Elderly lady lying in bed. VITAL SIGNS: Blood pressure 121/69, heart rate 85, respiratory rate 22, temperature 97.6. HEENT: Normocephalic, atraumatic. NECK: Supple, no JVD. LUNGS: Bilateral equal air entry. CARDIAC: S1, S2, regular rate and rhythm, no murmur, no rub. ABDOMEN: Distended, soft, tenderness in the lower abdomen, bowel sounds present. EXTREMITIES: 2+ pitting edema of the lower extremities. INTAKE AND OUTPUT: 1860/1500. LABORATORY DATA: WBC 20, hemoglobin 7.2, hematocrit 20.7, platelets 30, manual count 35. Sodium 152 , potassium 3.5, chloride 122, CO2 18, BUN 120, creatinine 2.4, glucose 185, calcium 7.3, phosphorus 6.3, albumin 2.0, magnesium 2.1, total bili 1.4. CURRENT MEDICATIONS: Acyclovir 360 daily, Carafate, Lopressor p.r.n., Lopressor 25 b.i.d., meropenem 1 gram q. 12 hours, micafungin 50, Oragel, D5W with 50 mEq of sodium bicarbonate, 20 mEq of KCl at 7 5, Protonix, octreotide, Zofran. ASSESSMENT: 1. Acute kidney injury superimposed on chronic kidney disease stage III. 2. Metastatic colon cancer. 3. Bone mets. 4. Status post sepsis. 5. Escherichia coli urinary tract infection. 6. Pancytopenia, resolving. 7. Severe anemia. 8. Hypernatremia. PLAN: 1. Continue hypotonic IV fluids. 2. Discontinue IV fluids once hyperalimentation is started. 3. Continue potassium supplementation. 4. Continue antibiotics. 5. Prognosis grim. Adele Griffin MD cc: [id number] TT: 10/17/2016 14:28:35 Confirmation # [id number] Dictation # [id number] rn
--- NOTE | 2016-10-17 16:07 | CP.PCM.PN ---
Subjective - Date & Time of Evaluation Date of Evaluation: 10/17/16 Time of Evaluation: 10:10 - Subjective Subjective: Patient is feeling weak today, no fevers overnight, patient is lethargic, arousable but falls back to sleep. Denies abdominal pain currently. Was complaining of ringing in her ears. According to the family member, the patient has a history of ringing in the ears. Objective - Vital Signs/Intake and Output Vital Signs (last 24 hours): Temp Pulse Resp BP Pulse Ox 97.6 F 104 H 28 H 119/67 98 10/16/16 04:00 10/16/16 18:00 10/16/16 18:00 10/16/16 16:00 10/16/16 10:00 Intake and Output: 10/17/16 10/17/16 06:59 18:59 Intake Total 1860 0 Output Total 50 1500 Balance 1810 -1500 - Medications Medications: Current Medications Benzocaine (Orajel Pm Maximum Strength) 0 gm MT QID PRN PRN Reason: Pain, moderate (4-7) Last Admin: 10/16/16 17:54 Dose: 1 dose Clotrimazole (Mycelex Deedee) 10 mg MT 5XD [facility] Last Admin: 10/17/16 06:01 Dose: 10 mg Al Hydrox/Mg Hydrox/Simethicone 30 ml/Diphenhydramine HCl 75 mg/Lidocaine 30 ml 0 ml PO Q2H PRN PRN Reason: Mouth/Throat Pain Last Admin: 10/16/16 22:50 Dose: 15 ml Meropenem 1g/NS 100mL IVPB (Meropenem 1g/Ns 100ml Ivpb) 1 gm in 100 mls @ 100 mls/hr IVPB Q12 [facility] PRN Reason: Protocol Stop: 10/19/16 16:34 Last Admin: 10/16/16 22:05 Dose: 100 mls/hr Potassium Chloride 20 meq/Sodium Bicarbonate 50 meq/Dextrose 1,060 mls @ 75 mls /hr IV .Q14H8M [facility] Last Admin: 10/16/16 19:13 Dose: 75 mls/hr Potassium Chloride 20 meq/ (Dextrose) 1,010 mls @ 100 mls/hr IV .Q10H6M [facility] Stop: 10/17/16 09:20 Last Admin: 10/17/16 01:11 Dose: 100 mls/hr Micafungin Sodium 50 mg/ (Sodium Chloride) 100 mls @ 100 mls/hr IV DAILY [facility] PRN Reason: Protocol Stop: 10/24/16 10:01 Acyclovir 370 mg/ Sodium (Chloride) 100 mls @ 100 mls/hr IV DAILY [facility] PRN Reason: Protocol Metoprolol Tartrate (Lopressor) 25 mg PO BID [facility] Last Admin: 10/16/16 17:54 Dose: 25 mg Metoprolol Tartrate (Lopressor) 5 mg IVP Q6H PRN PRN Reason: Sustained HR > 130 Multi-Ingredient Ointment (Hydrophor Oint) 0 gm TOP Q6H [facility] Last Admin: 10/17/16 02:59 Dose: Not Given Octreotide Acetate (Sandostatin) 100 mcg SC Q8 [facility] Last Admin: 10/17/16 05:58 Dose: 100 mcg Ondansetron HCl (Zofran Inj) 4 mg IVP Q6 [facility] Last Admin: 10/17/16 06:03 Dose: 4 mg Pantoprazole Sodium (Protonix Inj) 40 mg IVP DAILY [facility] Last Admin: 10/16/16 09:52 Dose: 40 mg Sucralfate (Carafate Oral Susp) 1 gm PO BID [facility] Last Admin: 10/16/16 17:52 Dose: 1 gm - Labs Labs: 10/17/16 06:00 10/17/16 06:00 PT 17.1 Seconds (9.9-11.8) H 10/15/16 05:45 INR 1.58 (0.93-1.08) H 10/15/16 05:45 APTT 39.9 Seconds (23.7-30.8) H 10/09/16 12:01 - Constitutional Appears: Non-toxic, No Acute Distress - Head Exam Head Exam: NORMAL INSPECTION - ENT Exam ENT Exam: Mucous Membranes Dry - Neck Exam Neck Exam: absent: Meningismus - Respiratory Exam Respiratory Exam: Decreased Breath Sounds Additional comments: right anterior chest wall port site clean and non-tender - Cardiovascular Exam Cardiovascular Exam: +S1, +S2 - GI/Abdominal Exam GI & Abdominal Exam: Soft. absent: Tenderness Assessment and Plan - Assessment and Plan (Free Text) Plan: Assessment Consider severe sepsis with acute renal failure due to acute enteritis in this patient with acute neutropenia (now resolved) from chemotherapy for her stage 4 colon cancer; stool for C. diff. is negative, slowly improving Acute encephalopathy, consider due to hypernatremia, R/O intra-cranial process Acute stomatitis and mucositis Neutropenia probably from chemotherapy, resolved HTN 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 S/P colectomy in 2014 history of UTI GERD anxiety Plan continue Merrem day 8; urine cx growing E. coli; patient is on Mycelex by mouth for oral thrush and will continue this and add Mycamine; will also add Acyclovir (renally-adjusted) for her stomatitis and mucositis Follow up CT head Patient is for repeat CT scan of the abdomen and pelvis when she can swallow better and we will follow up the results when it is feasible Will continue to follow clinically Overall prognosis is poor
[2016-10-17] MEDS: Fat Emulsion 20% IV 250 ML IV SCH (18:22)
--- NOTE | 2016-10-17 19:07 | PN ---
DATE: 10/17/2016 ADDENDUM This is an addendum to the GI progress report dictated by Yoana Osei APN. The patient was seen and evaluated earlier today. The diarrhea has significantly subsided. The antwon ent has been on octreotide for chemo-induced diarrhea, chemo-related diarrhea. The patient's abdomin al discomfort has significantly improved. But, her p.o. intake remains poor because of this discomfo rt with swallowing. The present plan is to continue the full liquid diet and consider the CT with oral contrast when the patient is able to tolerate p.o. The ____ is initially ordered for only 24 hours for this octreotide . We will consider increasing the duration depending upon the clinical course of the patient. Tong Null MD cc: [phone] TT: 10/17/2016 19:06:36 Confirmation # [id number] Dictation # [id number] sn
[2016-10-17] MEDS: Aluminum Hydroxide/Magnesium 30 ML, DiphenhydrAMINE 75 MG, Lidocaine 2% Viscous 30 ML PO PRN (21:29)
[2016-10-17] MEDS: TRIAMCINOLONE PO PRN (21:29)
--- NOTE | 2016-10-17 21:41 | PN ---
DATE: 10/17/2016 This is the patient's hospital visit on the medical floor. For Dr. Hendricks. 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 The patient's thrombocytopenia persists with modest impro vement with severe neutropenia also modestly improved. She is now started on hyperal as per renal co nsultant, Dr. Griffin and Dr. Brooks, with Kenalog and Orabase to be obtained in outpatient pharmacy f or relief of her oral lesions. She continues on Mycamine, Zovirax, with meropenem on hold as per Dr. Avalos. Sandostatin has significantly helped her diarrhea, offered by Dr. Null. PHYSICAL EXAMINATION: VITAL SIGNS: Temperature 97.6, pulse 102, respirations 22, blood pressure 100/62, pulse ox 96%. HEENT: Scattered areas of mucositis, grade II. NECK: Supple. HEART: Tachy rate, regular rhythm. LUNGS: Clear. ABDOMEN: Soft. Minimal tenderness to right lower quadrant. EXTREMITIES: No edema. SKIN: Otherwise, warm, dry and clear. NEUROLOGIC: She is somnolent but arousable. LABORATORY DATA: The patient's labs were done. White blood cell count of 20.0, hemoglobin of 7.2 do wn from 7.9 yesterday with a hematocrit of 20.7, platelet count of 30,000 with a manual of 35,000. I t should be noted that the patient's white blood cell count approximately 7 days prior was 0.1 with a n absolute neutrophil count of 0.03 with a platelet count dropping down to 9000 at one point, with sl ow improvement noted. The patient had 1 unit of fresh frozen plasma transfused along with 2 units of platelets with packed red blood cells held due to possible incompatibility at that time. The patient's INR 2 days ago was 1.58, down from 2.06, six days prior. Chem metabolic panel showed a sodium of 152, potassium of 3.5, chloride of 122, BUN of 120 with a creatinine of 2.4, calcium 7.3, which is improved from 6.8 yesterday, phosphorus of 6.3, T-bili of 1.4. The patient's C. difficile stool testing was reported as negative for antigen and toxin done 3 days p rior. ASSESSMENT: Neutropenic sepsis, acute renal failure, acute enteritis, severe neutropenia with thromb ocytopenia modestly improved, colon cancer stage IV, status post chemotherapy, encephalopathy, possib ly secondary to hypernatremia, acute stomatitis mucositis, hypertension, cauda equina syndrome, urina ry tract infection, gastroesophageal reflux disease, anxiety. PLAN: After conversation with Dr. Hendricks, is to continue Sandostatin as per Dr. Null. We will type and cross, 2 units of packed red blood cells on hold with consideration for transfusion as indic ated for the hemoglobin 7.2. We will monitor clinically and with labs. The prognosis for this patie nt is guarded. We will also add hyperal for nutrition as per Dr. Griffin and Remi and Randalaba for h er oral lesions. Also, it should be noted that meropenem is on hold as per Dr. Avalos. Tomasz Winters MD cc: [phone] TT: 10/17/2016 21:40:06 Confirmation # [id number] Dictation # [id number] karla
[2016-10-18] MEDS: Petrolatum-Mineral Oil Oint (100gm) TOP SCH ×4 (04:32→22:16)
[2016-10-18] MEDS: Benzocaine 20% Cream(7 gm) MT PRN (05:27)
[2016-10-18] MEDS: Aluminum Hydroxide/Magnesium 30 ML, DiphenhydrAMINE 75 MG, Lidocaine 2% Viscous 30 ML PO PRN (05:27)
[2016-10-18 06:58] LABS: ALB/GLOB RATIO 0.8 (1.1-1.8); ALBUMIN 1.9 g/dL (3.0-4.8); CALCIUM 7.3 mg/dL (8.4-10.5); MAGNESIUM 2.1 mg/dL (1.7-2.2)
[2016-10-18 07:50] LABS: INR 1.29 (0.93-1.08); PROTHROMBIN TIME 13.9 Seconds (9.9-11.8)
[2016-10-18 08:09] LABS: MEAN CELL VOLUME 89.6 fL (80.0-105.0); MEAN CORPUSCULAR HEMOGLOBIN 31.8 pg (25.0-35.0); MEAN CORPUSCULAR HGB CONC 35.4 g/dl (31.0-37.0); PLATELET COUNT 33 10^3/uL (120.0-450.0); RBC 2.11 10^6/uL (3.5-6.1); RED CELL DISTRIBUTION WIDTH 21.6 % (11.5-14.5); WHITE BLOOD COUNT 15.8 10^3/ul (4.5-11.0)
[2016-10-18 08:13] LABS: HEMOGLOBIN 6.7 gm/dL (12.0-16.0)
[2016-10-18 08:41] LABS: PLATELET COUNT MANUAL 50 K/mm3 (120-450)
[2016-10-18 08:43] LABS: ATYPICAL LYMPHOCYTE 2 % (0.0-0.0); BAND 6 % (0-2); LYMPHOCYTE 10 % (22.0-35.0); MONOCYTE 6 % (1.0-6.0); NEUTROPHIL 74 % (50.0-70.0)
[2016-10-18 08:44] LABS: ANISOCYTOSIS 1+; HYPOCHROMIA 2+; MYELOCYTE 2 %; PLATELET ESTIMATE LOW (NORMAL); POIKILOCYTOSIS SLIGHT; POLYCHROMASIA SLIGHT
[2016-10-18 08:45] LABS: OVALOCYTES SLIGHT; TEAR DROP CELLS SLIGHT
[2016-10-18] MEDS: Sucralfate 1 gm/10 ml Oral Susp UD PO SCH ×2 (11:01→18:36)
[2016-10-18] MEDS: TRIAMCINOLONE PO PRN (11:03)
[2016-10-18] MEDS: Morphine 2 mg/ml ISec IVP PRN (11:04)
--- NOTE | 2016-10-18 11:33 | PN ---
DATE: 10/18/2016 SUBJECTIVE: The patient is seen lying in bed. She seems to be resting comfortably. PHYSICAL EXAMINATION: GENERAL: Elderly lady lying in bed. VITAL SIGNS: Blood pressure 122/72, heart rate 93, respiratory rate 20, temperature 98.4. HEENT: Normocephalic, atraumatic. NECK: Supple. No JVD. LUNGS: Bilateral equal air entry. No rales. CARDIAC: S1, S2, regular rate and rhythm. No murmur, no rub. ABDOMEN: Distended, soft, nontender. Bowel sounds present. EXTREMITIES: 2+ pitting edema of the lower extremities. INTAKE AND OUTPUT: 420/2700. LABORATORY DATA: WBC 15.8, hemoglobin 6.7, hematocrit 18.9, platelets 33. Manual count 50. Sodium 150, potassium 4.0, chloride 122, CO2 of 22. BUN 111, creatinine 2.1. Glucose 155, calcium 7.3, alb umin 1.9. Corrected calcium is 8.7. Phosphorus is 5.4, magnesium 2.1. C. diff negative. CURRENT MEDICATIONS: acyclovir, Carafate, hyperal, Lopressor, meropenem 1 gram q. 12, micafungin 50 daily, morphine, Mycelex, Orajel, Protonix, Sandostatin, Zofran. ASSESSMENT: 1. Acute kidney injury superimposed on chronic kidney disease stage III, slowly resolving acute kidn ey injury. 2. Hypernatremia, dehydration, improving slowly. 3. Metastatic colon cancer with bone metastases. 4. Pancytopenia, severe anemia, thrombocytopenia. 5. Malnutrition. 6. Severe hypoalbuminemia. PLAN: 1. Continue hyperal. 2. Continue antibiotics, as per infectious disease recommendations. 3. Continue antifungals. 4. Dose all antibiotics for creatinine clearance, about 30 mL per minute. 5. ? PRBC transfusion today. Adele Griffin MD cc: [phone] TT: 10/18/2016 11:32:27 Confirmation # [id number] Dictation # [id number] kyle
--- NOTE | 2016-10-18 12:54 | PN ---
DATE: 10/18/2016 Seen and examined at the bedside earlier this morning. The patient reported to have episode of diarr hea last night. The patient's throat discomfort is slightly getting better. No reports of any bleed ing, shortness of breath, chest pain. She was started back on Sandostatin x 3 doses today. VITAL SIGNS: Temperature 98.4, blood pressure is 122/72, pulse 93, respirations 20, 100% room air. LABORATORIES: WBC is 15.8, her hemoglobin is 6.7, hematocrit 18.9, platelets is 33, the manual plate let count is 50. PT is 13.9, INR is 1.29, it is better. Sodium is 150, potassium is 4.0, BUN is 111 and the creatinine is 2.1, magnesium 2.1, total bilirubin is 0.9, AST 12, ALT 23, alkaline phosphata se is 68. PHYSICAL EXAMINATION: HEENT: Sclera is anicteric. NECK: Supple. CARDIAC: S1, S2. LUNG SOUNDS: With decreased breath sounds, but good air entry, no rales or wheeze. ABDOMEN: With bowel sounds, softly distended, not much tenderness. EXTREMITIES: Positive bilateral edema. NEUROLOGIC: The patient is awake and alert. ASSESSMENT: The patient with metastatic colon cancer with metastasis to the bone, severe anemia with pancytopenia and thrombocytopenia, acute renal failure, severe diarrhea, likely chemo related. She did have stool for Clostridium difficile that was negative. PLAN: The patient is given another 3 doses of Sandostatin that was started last night. Continue PPI . She is on Carafate, Mycelex Deedee, is on PPN now and on IV antibiotics as per ID. The patient is going to get a blood transfusion today. The patient was seen and case discussed with Dr. Null. Yoana IQBAL cc: [phone] TT: 10/18/2016 12:52:55 Confirmation # [id number] Dictation # [id number] en
[2016-10-18] MEDS: DiphenhydrAMINE 50 mg/ml Inj IVP PRN (13:29)
--- NOTE | 2016-10-18 16:40 | CP.PCM.CON ---
History of Present Illness - History of Present Illness History of Present Illness: General Surgery Consult Note for Dr. 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 Surgical consultation was request to evaluate patient's sacral ulcer. Patient's mother states the ulcer appeared after patient's hospitalization. Patient complains of pain in the sacral area when she moves. Patient is very weak and bed bound. Patient still having diarrhea throughout her hospital course. Patient denies having headache, fever, chills, shortness of breath, cough, chest pain, nausea, or vomiting. Review of Systems - Constitutional Constitutional: As Per HPI, Weakness. absent: Chills, Fever - EENT Eyes: As Per HPI. absent: Loss of Vision Ears: As Per HPI. absent: Dizziness Nose/Mouth/Throat: As Per HPI, Dry Mouth. absent: Nasal Congestion - Cardiovascular Cardiovascular: As Per HPI, Leg Edema. absent: Chest Pain, Dyspnea, Syncope - Respiratory Respiratory: As Per HPI. absent: Cough, Dyspnea - Gastrointestinal Gastrointestinal: As Per HPI, Diarrhea. absent: Nausea, Vomiting - Genitourinary Genitourinary: As Per HPI - Musculoskeletal Musculoskeletal: As Per HPI. absent: Deformity, Numbness, Stiffness Additional comments: posterior sacral pain - Integumentary Integumentary: As Per HPI, Skin Ulcer (sacral ulcer) - Neurological Neurological: As Per HPI, Weakness. absent: Dizziness, Syncope, Tremor - Psychiatric Psychiatric: As Per HPI - Endocrine Endocrine: As Per HPI - Hematologic/Lymphatic Hematologic: As Per HPI Past Patient History - Infectious Disease Hx of Infectious Diseases: None - Tetanus Immunizations Tetanus Immunization: Unknown - Past Social History Smoking Status: Never Smoked - CARDIAC Hx Cardiac Disorders: Yes Hx Hypertension: Yes - PULMONARY Hx Respiratory Disorders: No - NEUROLOGICAL Hx Neurological Disorder: No - HEENT Hx HEENT Problems: Yes (Contacts/glasses) - RENAL Hx Chronic Kidney Disease: No - ENDOCRINE/METABOLIC Hx Endocrine Disorders: No - HEMATOLOGICAL/ONCOLOGICAL Hx Blood Disorders: Yes Hx Cancer: Yes (Colon/Basil CA) Hx Metastesis: Yes - INTEGUMENTARY 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) - MUSCULOSKELETAL/RHEUMATOLOGICAL Hx Musculoskeletal Disorders: Yes Hx Back Pain: Yes Hx Falls: No - GASTROINTESTINAL Hx Gastrointestinal Disorders: Yes Hx Gastroesophageal Reflux: Yes Other/Comment: Colon CA, colectomy 2015, IBS, Constipation - GENITOURINARY/GYNECOLOGICAL Hx Genitourinary Disorders: Yes Hx Urinary Tract Infection: Yes - PSYCHIATRIC Hx Psychophysiologic Disorder: Yes Hx Anxiety: Yes Hx Substance Use: No - SURGICAL HISTORY Other/Comment: lesion remove from chest wall - ANESTHESIA Hx Anesthesia Reactions: No Hx Malignant Hyperthermia: No Meds Allergies/Adverse Reactions: Allergies Allergy/AdvReac Type Severity Reaction Status Date / Time IV CONTRAST Allergy Severe SHORTNESS Uncoded 10/06/16 18:13 OF BREATH CAF Allergy Intermediate PALPITATION Uncoded 10/06/16 18:13 S - Medications Medications: Current Medications Benzocaine (Orajel Pm Maximum Strength) 0 gm MT QID PRN PRN Reason: Pain, moderate (4-7) Last Admin: 10/18/16 05:27 Dose: 1 dose Clotrimazole (Mycelex Deedee) 10 mg MT 5XD [facility] Last Admin: 10/18/16 14:52 Dose: 10 mg Al Hydrox/Mg Hydrox/Simethicone 30 ml/Diphenhydramine HCl 75 mg/Lidocaine 30 ml 0 ml PO Q2H PRN PRN Reason: Mouth/Throat Pain Last Admin: 10/18/16 05:27 Dose: 10 ml Diphenhydramine HCl (Benadryl) 25 mg IVP Q4H PRN PRN Reason: Allergy symptoms Last Admin: 10/18/16 13:29 Dose: 25 mg Home Med (Home Med) 1 unit PO Q12H PRN PRN Reason: Inflammation Last Admin: 10/18/16 11:03 Dose: 1 unit Meropenem 1g/NS 100mL IVPB (Meropenem 1g/Ns 100ml Ivpb) 1 gm in 100 mls @ 100 mls/hr IVPB Q12 [facility] PRN Reason: Protocol Stop: 10/19/16 16:34 Last Admin: 10/17/16 09:25 Dose: 100 mls/hr Micafungin Sodium 50 mg/ (Sodium Chloride) 100 mls @ 100 mls/hr IV DAILY [facility] PRN Reason: Protocol Stop: 10/24/16 10:01 Last Admin: 10/18/16 13:08 Dose: Not Given Acyclovir 370 mg/ Sodium (Chloride) 100 mls @ 100 mls/hr IV DAILY [facility] PRN Reason: Protocol Last Admin: 10/18/16 13:52 Dose: Not Given Multivitamins/Vitamin C 10 ml/Amino Acids/Electrolytes/Dextrose 2,010 mls @ 83 mls/hr IV .Q24H [facility] Stop: 10/20/16 17:59 Last Admin: 10/17/16 18:22 Dose: 83 mls/hr Fat Emulsion Intravenous (Intralipid 20%) 250 mls @ 11.905 mls/hr IV DAILY@ 1800 [facility] Stop: 10/20/16 17:59 Last Admin: 10/17/16 18:22 Dose: 11.905 mls/hr Metoprolol Tartrate (Lopressor) 25 mg PO BID [facility] Last Admin: 10/18/16 11:02 Dose: 25 mg Metoprolol Tartrate (Lopressor) 5 mg IVP Q6H PRN PRN Reason: Sustained HR > 130 Morphine Sulfate (Morphine) 1 mg IVP Q3 PRN PRN Reason: Pain, moderate (4-7) Last Admin: 10/18/16 11:04 Dose: 1 mg Multi-Ingredient Ointment (Hydrophor Oint) 0 gm TOP Q6H [facility] Last Admin: 10/18/16 14:46 Dose: 1 applic Ondansetron HCl (Zofran Inj) 4 mg IVP Q6 [facility] Last Admin: 10/18/16 11:01 Dose: 4 mg Pantoprazole Sodium (Protonix Inj) 40 mg IVP DAILY [facility] Last Admin: 10/18/16 11:01 Dose: 40 mg Sucralfate (Carafate Oral Susp) 1 gm PO BID [facility] Last Admin: 10/18/16 11:01 Dose: 1 gm Physical Exam - Constitutional Appears: Non-toxic, No Acute Distress, Chronically Ill - Head Exam Head Exam: ATRAUMATIC, NORMAL INSPECTION, NORMOCEPHALIC - Eye Exam Eye Exam: EOMI, Normal appearance - ENT Exam ENT Exam: Mucous Membranes Moist - Neck Exam Neck exam: Positive for: Normal Inspection - Respiratory Exam Respiratory Exam: Clear to Auscultation Bilateral, NORMAL BREATHING PATTERN. absent: Respiratory Distress - Cardiovascular Exam Cardiovascular Exam: +S1, +S2 Additional comments: right anterior chest wall port site clean and non-tender - GI/Abdominal Exam GI & Abdominal Exam: Normal Bowel Sounds, Tenderness - Rectal Exam Additional comments: Actively having diarrhea - Extremities Exam Extremities exam: Positive for: normal capillary refill, normal inspection, pedal edema, pedal pulses present - Neurological Exam Neurological exam: Alert, Oriented x3 - Psychiatric Exam Psychiatric exam: Normal Affect, Normal Mood - Skin Skin Exam: Warm Additional comments: Unstageable sacral ulcer above sacral hiatus, approximately 4cm x 2cm in size with green discoloration, non draining. Stage 2 sacral ulcer to the right of sacral hiatus, approximately 4cm x 3cm in size with minimal serosangineous drainage. Diffuse erythema in sacral region Results - Vital Signs Recent Vital Signs: Last Vital Signs Temp 97.6 F 10/18/16 15:18 Pulse 98 H 10/18/16 15:18 Resp 18 10/18/16 15:18 BP 101/67 10/18/16 15:18 Pulse Ox 100 10/18/16 07:59 - Labs Result Diagrams: 10/18/16 06:00 10/18/16 06:00 Labs: Laboratory Results - last 24 hr 10/17/16 10/18/16 10/18/16 20:10 06:00 06:00 WBC 15.8 H D RBC 2.11 L Hgb 6.7 L* Hct 18.9 L* MCV 89.6 MCH 31.8 MCHC 35.4 RDW 21.6 H Plt Count 33 L* Manual Plt Count 50 L* Neutrophils % (Manual) 74 H Band Neutrophils % 6 H Lymphocytes % (Manual) 10 L Atypical Lymphs % 2 H Monocytes % (Manual) 6 Myelocytes % 2 Platelet Evaluation Low Polychromasia Slight Hypochromasia 2+ Poikilocytosis (manual Slight Anisocytosis (manual) 1+ Tear Drop Cells Slight Ovalocytes Slight PT INR Sodium 150 H Potassium 4.0 Chloride 122 H Carbon Dioxide 22 Anion Gap 10 BUN 111 H Creatinine 2.1 H Est GFR ( Amer) 29 Est GFR (Non-Af Amer) 24 Random Glucose 155 H Calcium 7.3 L Phosphorus 5.4 H Magnesium 2.1 Total Bilirubin 0.9 AST 12 L ALT 23 Alkaline Phosphatase 68 Total Protein 4.1 L Albumin 1.9 L Globulin 2.3 Albumin/Globulin Ratio 0.8 L Blood Type A POSITIVE Antibody Screen Negative Crossmatch See Detail BBK History Checked Patient has bt 10/18/16 06:00 WBC RBC Hgb Hct MCV MCH MCHC RDW Plt Count Manual Plt Count Neutrophils % (Manual) Band Neutrophils % Lymphocytes % (Manual) Atypical Lymphs % Monocytes % (Manual) Myelocytes % Platelet Evaluation Polychromasia Hypochromasia Poikilocytosis (manual Anisocytosis (manual) Tear Drop Cells Ovalocytes PT 13.9 H INR 1.29 H Sodium Potassium Chloride Carbon Dioxide Anion Gap BUN Creatinine Est GFR ( Amer) Est GFR (Non-Af Amer) Random Glucose Calcium Phosphorus Magnesium Total Bilirubin AST ALT Alkaline Phosphatase Total Protein Albumin Globulin Albumin/Globulin Ratio Blood Type Antibody Screen Crossmatch BBK History Checked Assessment & Plan - Assessment and Plan (Free Text) Assessment: 61 year old female with past medical history stage IV colon CA s/p colectomy, s/ p chemotherapy, presents with diarrhea, 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 Surgery evaluation was consulted for sacral ulcer. Plan: Unstageable Sacral ulcer -Santyl topical twice daily and transition to [facility] -Wound dressing change daily -Air mattress -Turn patient Q2 hour -No surgical intervention indicated at this time -Continue medical management -c/w with attending
--- NOTE | 2016-10-18 20:24 | PN ---
DATE: 10/18/2016 The patient is in bed in no acute distress, nontoxic. PHYSICAL EXAMINATION: VITAL SIGNS: Temperature is 97, blood pressure is 119/70, respiratory rate of 20. HEENT: Unremarkable. NECK: Supple. LUNGS: Have decreased breath sounds. HEART: Normal S1, S2. ABDOMEN: Soft, nontender. LABORATORY DATA: Reveals a white count of 15,800, hemoglobin of 6.7. The patient's platelets are 50 ,000. Chemistries reveal a BUN of 111, creatinine of 2.1. The patient's last procalcitonin is great er than 200. Urinalysis is noted. Microbiology reveals E. coli in the urine. The nasal MRSA screen is negative. The C. diff toxin and antigen are both negative. Review of the orders reveals the pat ient to be on meropenem, on hold. The patient is also on morphine. ASSESSMENT AND PLAN: A 61-year-old with severe sepsis; acute renal failure; acute enteritis; neutrop enia which has resolved; on chemotherapy in the face of colon cancer, stage IV; with a negative Clost ridium difficile and on meropenem, on hold, day #9, Mycamine and acyclovir, both are active. Dr. Fallon Winters's note is reviewed. The patient does have unstageable sacral ulcer. Overall prognosis is quite poor. We will follow closely with you. Lang Akhtar MD cc: [phone] TT: 10/18/2016 20:24:04 Confirmation # [id number] Dictation # [id number]
--- NOTE | 2016-10-18 21:32 | PN ---
DATE: 10/18/[address] Hendricks. SUBJECTIVE: The patient is a 61-year-old female, seen lying somnolent but arousable in bed, discharg ed from intensive care unit after treatment for neutropenic sepsis, shock, acute renal failure, which persists, severe enteritis of the bowel, mucositis of the mouth with the patient known to have stage IV cancer of the colon with a stricture at the anal verge. With this, the patient is now also known to have a decubitus ulcer on her backside with the patient resting comfortably with her brother at [facility] bedside. She is being transfused 2 units of packed red blood cells after a long discussion with [facility] family and the patient regarding the need for transfusion. Her electrolytes are being monitored b y the renal consultants with good effect and her gastrointestinal issues are being addressed by Dr. Kenia garcia. PHYSICAL EXAMINATION: VITAL SIGNS: Temperature 98, pulse 89, respirations 20, blood pressure 134/70 with a pulse ox 98%. HEENT: She has oral ulcerations which compromise her ability to take p.o. due to irritation. NECK: Supple. HEART: Regular rate. LUNGS: Clear. ABDOMEN: Soft. Minimal generalized tenderness. EXTREMITIES: No edema. SKIN: Warm, dry except for her sacral area with stage possible 2 decubitus. NEUROLOGIC: Somnolent but arousable. LABORATORY DATA: This patient's labs were done, white blood cell count of 15.8, hemoglobin of 6.7 wi th a hematocrit of 18.9 and platelet count of 33,000 with a manual 50,000. Her INR today was 1.29 wi th a chem metabolic panel showing a sodium 150 with chloride of 122. BUN of 111, down from 128 three days prior with a creatinine of 2.1 down from a high of 2.7 two days prior. Her calcium value is 7. 3, phosphorus of 5.4 with a total protein 4.1, albumin 1.9. Her stool for occult blood was positive. ASSESSMENT: Neutropenic sepsis, acute renal failure, acute enteritis with diarrhea, neutropenia, thr ombocytopenia, status post chemotherapy, stage IV cancer of the colon, sacral decubitus, stomatitis, failure to thrive, malnutrition, encephalopathy resolved, electrolyte imbalance, cauda equina syndrom e, anemia. PLAN: Transfuse 2 units of packed red blood cells. We will continue her hyperal after transfusion. Kenalog and Orabase will be given for oral lesions. Antibiotics are to continue as per Dr. Cornell arevalo with morphine for her pain. We will ask for a consult with Dr. Preston, surgery, for decubitus, w ith monitoring clinically and with labs. We will continue her diet; however, will avoid acidity juic es as this seems to irritate her oral mucosa. Tomasz Winters MD cc: [phone] TT: 10/18/2016 21:31:39 Confirmation # [id number] Dictation # [id number] jn
[2016-10-18] MEDS: Fat Emulsion 20% IV 250 ML IV SCH (22:28)
--- NOTE | 2016-10-18 22:54 | PN ---
DATE: 10/18/2016 ADDENDUM This is an addendum to the GI progress report dictated by Yoana Osei APN. The patient had another episode of loose bowel movements, has been continued on the octreotide infusion . On examination, abdomen is soft. There is a significant improvement in the tenderness on the right side. She feels even the mouth and oral discomfort are slightly better. Once the patient's p.o. intake improves, then we will consider CT with the p.o. contrast. Regarding the diarrhea, likely chemo. The patient's hemoglobin has significantly decreased to 6.7, but there is no obvious GI bleeding noticed. I have discussed with Dr. Hendricks and we transfused packed RBC. It is reasonable to consider repeating the CAT scan to rule out any retroperitoneal bleed or other source of blood loss. We will continue to closely follow up her care. Thank you very much for allowing us to participate in the care of the patient. The patient had E. coli UTI with neutropenic sepsis. The patient is on meropenem and micafungin and also acyclovir. The patient does have a stricture due to extrinsic tumor involvement, metastatic of the colon cancer and the stricture was just proximal to the low anterior resection. Unable to pass the scope before. The patient status post chemoradiation. Hopefully, the stricture has opened up. Once the sepsis improves with an improvement of the platelet count, we will be able to consider flexible sigmoidoscopy to further evaluate this area. Tong Null MD cc: [id number] TT: 10/18/2016 22:53:11 Confirmation # [id number] Dictation # [id number] ln MTDD
[2016-10-19] MEDS: Morphine 2 mg/ml ISec IVP PRN ×2 (01:58→20:29)
[2016-10-19] MEDS: Petrolatum-Mineral Oil Oint (100gm) TOP SCH ×4 (02:44→20:30)
[2016-10-19 07:24] LABS: ALB/GLOB RATIO 0.8 (1.1-1.8); ALBUMIN 1.9 g/dL (3.0-4.8); CALCIUM 7.3 mg/dL (8.4-10.5)
[2016-10-19 07:54] LABS: HEMOGLOBIN 9.7 gm/dL (12.0-16.0); MEAN CORPUSCULAR HGB CONC 34.5 g/dl (31.0-37.0); PLATELET COUNT 47 10^3/uL (120.0-450.0); RBC 3.23 10^6/uL (3.5-6.1); RED CELL DISTRIBUTION WIDTH 16.5 % (11.5-14.5); WHITE BLOOD COUNT 16.2 10^3/ul (4.5-11.0)
--- NOTE | 2016-10-19 08:08 | CP.PCM.PN ---
Subjective - Date & Time of Evaluation Date of Evaluation: 10/19/16 Time of Evaluation: 07:10 - Subjective Subjective: General Surgery Progress Note for Dr. Jeffers Patient seen and examined at bedside. No acute events overnight. Patient was lethargic and weak. Tolerating liquid diet well. No reported diarrhea overnight. Denies fever, chills, shortness of breath, chest pain, nausea, or vomiting. Objective - Vital Signs/Intake and Output Vital Signs (last 24 hours): Temp Pulse Resp BP Pulse Ox 98 F 94 H 20 142/85 98 10/18/16 21:24 10/18/16 21:24 10/18/16 21:24 10/18/16 21:24 10/18/16 16:00 Intake and Output: 10/19/16 10/19/16 06:59 18:59 Intake Total 360 240 Output Total 200 400 Balance 160 -160 - Medications Medications: Current Medications Benzocaine (Orajel Pm Maximum Strength) 0 gm MT QID PRN PRN Reason: Pain, moderate (4-7) Last Admin: 10/18/16 05:27 Dose: 1 dose Collagenase (Santyl) 1 gm TOP BID RODRÍGUEZ Al Hydrox/Mg Hydrox/Simethicone 30 ml/Diphenhydramine HCl 75 mg/Lidocaine 30 ml 0 ml PO Q2H PRN PRN Reason: Mouth/Throat Pain Last Admin: 10/18/16 05:27 Dose: 10 ml Diphenhydramine HCl (Benadryl) 25 mg IVP Q4H PRN PRN Reason: Allergy symptoms Last Admin: 10/18/16 13:29 Dose: 25 mg Home Med (Home Med) 1 unit PO Q12H PRN PRN Reason: Inflammation Last Admin: 10/18/16 11:03 Dose: 1 unit Meropenem 1g/NS 100mL IVPB (Meropenem 1g/Ns 100ml Ivpb) 1 gm in 100 mls @ 100 mls/hr IVPB Q12 RODR[facility]GUEZ PRN Reason: Protocol Stop: 10/19/16 16:34 Last Admin: 10/17/16 09:25 Dose: 100 mls/hr Micafungin Sodium 50 mg/ (Sodium Chloride) 100 mls @ 100 mls/hr IV DAILY RODRÍGUEZ PRN Reason: Protocol Stop: 10/24/16 10:01 Last Admin: 10/18/16 13:08 Dose: Not Given Acyclovir 370 mg/ Sodium (Chloride) 100 mls @ 100 mls/hr IV DAILY [facility] PRN Reason: Protocol Last Admin: 10/18/16 13:52 Dose: Not Given Multivitamins/Vitamin C 10 ml/Amino Acids/Electrolytes/Dextrose 2,010 mls @ 83 mls/hr IV .Q24H [facility] Stop: 10/20/16 17:59 Last Admin: 10/18/16 22:27 Dose: 83 mls/hr Fat Emulsion Intravenous (Intralipid 20%) 250 mls @ 11.905 mls/hr IV DAILY@ 1800 [facility] Stop: 10/20/16 17:59 Last Admin: 10/18/16 22:28 Dose: 11.905 mls/hr Metoprolol Tartrate (Lopressor) 25 mg PO BID [facility] Last Admin: 10/18/16 18:37 Dose: 25 mg Metoprolol Tartrate (Lopressor) 5 mg IVP Q6H PRN PRN Reason: Sustained HR > 130 Morphine Sulfate (Morphine) 1 mg IVP Q3 PRN PRN Reason: Pain, moderate (4-7) Last Admin: 10/19/16 01:58 Dose: 1 mg Multi-Ingredient Ointment (Hydrophor Oint) 0 gm TOP Q6H [facility] Last Admin: 10/19/16 02:44 Dose: Not Given Ondansetron HCl (Zofran Inj) 4 mg IVP Q6 [facility] Last Admin: 10/19/16 06:24 Dose: 4 mg Pantoprazole Sodium (Protonix Inj) 40 mg IVP DAILY [facility] Last Admin: 10/18/16 11:01 Dose: 40 mg Sucralfate (Carafate Oral Susp) 1 gm PO BID [facility] Last Admin: 10/18/16 18:36 Dose: 1 gm - Labs Labs: 10/19/16 06:30 10/19/16 06:30 PT 13.9 Seconds (9.9-11.8) H 10/18/16 06:00 INR 1.29 (0.93-1.08) H 10/18/16 06:00 APTT 39.9 Seconds (23.7-30.8) H 10/09/16 12:01 - Constitutional Appears: Non-toxic, No Acute Distress, Chronically Ill - Head Exam Head Exam: ATRAUMATIC, NORMAL INSPECTION - Eye Exam Eye Exam: EOMI, Normal appearance - ENT Exam ENT Exam: Mucous Membranes Moist - Neck Exam Neck Exam: Normal Inspection - Respiratory Exam Respiratory Exam: Clear to Ausculation Bilateral, NORMAL BREATHING PATTERN. absent: Wheezes, Respiratory Distress - Cardiovascular Exam Cardiovascular Exam: +S1, +S2 Additional comments: chest wall port site clean, no signs of infection - GI/Abdominal Exam GI & Abdominal Exam: Soft, Normal Bowel Sounds. absent: Tenderness - Extremities Exam Extremities Exam: Joint Swelling, Normal Capillary Refill, Pedal Edema - Neurological Exam Neurological Exam: Alert, Awake, Oriented x3 Additional comments: lethargic - Psychiatric Exam Additional comments: lethargic - Skin Skin Exam: Warm Additional comments: Unstageable sacral ulcer above sacral hiatus, approximately 4cm x 2cm in size with green discoloration, non draining. Stage 2 sacral ulcer to the right of sacral hiatus, approximately 4cm x 3cm in size with minimal serosangineous drainage. Diffuse erythema in sacral region Assessment and Plan - Assessment and Plan (Free Text) Assessment: 61 year old female with past medical history stage IV colon CA s/p colectomy, s/ p chemotherapy, presents with diarrhea, 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 Surgery evaluation was consulted for sacral ulcer. Plan: Unstageable Sacral ulcers -Continue to apply topical Santyl twice daily and transition to medihoney once ulcers improve -Wound dressing this morning by surgical team -Air mattress -Turn patient Q2 hour -No surgical intervention indicated at this time -Continue medical management -c/w with attending
[2016-10-19 08:43] LABS: PLATELET COUNT MANUAL 60 K/mm3 (120-450)
[2016-10-19] MEDS: Collagenase 250 Units/gm Ointment(30 gm) TOP SCH ×2 (09:50→17:50)
[2016-10-19] MEDS: Sucralfate 1 gm/10 ml Oral Susp UD PO SCH ×2 (09:55→17:52)
--- NOTE | 2016-10-19 11:33 | PN ---
DATE: 10/19/2016 Seen and examined at the bedside earlier today. The patient is status post blood transfusion yesterday, reports having looks like 2 loose stools yesterday , but not as much as before as per patient. She received Sandostatin dose yesterday. The patient still has oral discomfort with very slight improvement. No complaints of abdominal pain right now. Denies any shortness of breath or chest pain. The patient is awake and alert. VITAL SIGNS: Temperature is 97.6, blood pressure 143/81, pulse 77, respirations 20, 97 nasal cannula. LABORATORY DATA: WBC 16.2, hemoglobin is 9.7, hematocrit is 28.1, platelet is 47, manual is 60. This is better. Sodium 152, K 3.9, BUN is 102, creatinine is 1.8. LFTs are within normal limits. She did have stool for guaiac yesterday. It was positive. PHYSICAL EXAMINATION: HEENT: Sclerae are anicteric. NECK: Supple. CARDIAC: S1, S2. LUNGS: With decreased breath sounds. No rales or wheeze. ABDOMEN: With bowel sounds, soft. Positive for generalized tenderness, no rebound or guarding. EXTREMITIES: No edema. NEUROLOGIC: The patient is awake and alert this morning. ASSESSMENT: The patient with sepsis, neutropenia, acute renal failure, enteritis with diarrhea, status post Sandostatin with improvement. The patient has stage IV colon cancer, status post chemotherapy and radiation. She has also stomatitis, thrombocytopenia, anemia. PLAN: The patient remains on hyperal and on full liquids. She is getting treatment for her oral sores and throat discomfort. Also on IV antibiotics as per ID. Continue PPI and Carafate as per oncology, renal and ID. The patient was evaluated by surgery for her sacral wound. We will request for CT scan A&P without contrast to r/o retroperitoneal bleed. The patient was seen and case discussed with Dr. Null. Yoana Farnaz RASHEED cc: [phone] TT: 10/19/2016 11:32:37 Confirmation # [id number] Dictation # [id number] louie [facility] SERVICESHawk
[2016-10-19] MEDS ORDERED: Sodium Chloride 0.9% 1,000 ML IV SCH (12:00)
--- NOTE | 2016-10-19 14:54 | PN ---
DATE: 10/19/2016 SUBJECTIVE: The patient is seen lying in bed. She is still having diarrhea. She is still having lo wer abdominal pain. She had 2 large bowel movements earlier. PHYSICAL EXAMINATION: GENERAL: Elderly lady, lying in bed. VITAL SIGNS: Blood pressure 143/81, heart rate 77, respiratory rate 20, temperature 97.6. HEENT: Normocephalic, atraumatic. NECK: Supple, no JVD. LUNGS: Bilateral equal air entry. CARDIAC: S1, S2, regular rate and rhythm, no murmur, no rub. ABDOMEN: Distended, soft, tenderness in the lower abdomen, bowel sounds present. EXTREMITIES: No lower extremity edema. INTAKE AND OUTPUT: 1105/800. LABORATORY DATA: WBC 16, hemoglobin 9.7, hematocrit 28, platelets 47. Sodium 152, potassium 3.9, ch loride 123, CO2 22, BUN 102, creatinine 1.8, glucose 144, calcium 7.3, phosphorus 5.8, magnesium 2.0, albumin 1.9, corrected calcium is 8.7. CURRENT MEDICATIONS: Acyclovir , Benadryl, Carafate, hyperal, fat emulsion, Lopressor 25 b.i.d. , meropenem 1 gram q. 12, micafungin, Protonix, Zofran. ASSESSMENT: 1. Acute kidney injury, slowly resolving. 2. Hypernatremia. 3. Persistent diarrhea. 4. Metastatic colon cancer with bone metastases. 5. Enteritis. 6. Malnutrition. PLAN: 1. Change hyperal to remove sodium. 2. Continue Sandostatin. 3. Continue antibiotics. 4. Avoid nephrotoxins. 5. Follow up CT scan of the abdomen. Adele Griffin MD cc: [id number] TT: 10/19/2016 14:54:20 Confirmation # [id number] Dictation # [id number] en
--- NOTE | 2016-10-19 15:09 | CT ---
PROCEDURE: CT Abdomen and Pelvis without intravenous contrast HISTORY: r/o retroperitoneal bleed, drop h/h, no oral or IV COMPARISON: 10/09/2016 TECHNIQUE: Without contrast.. Contrast Dose: Radiation dose: Total exam DLP = 1034 mGy-cm. This CT exam was performed using one or more of the following dose reduction techniques: Automated exposure control, adjustment of the mA and/or kV according to patient size, and/or use of iterative reconstruction technique. FINDINGS: LOWER THORAX: There is subsegmental consolidation at both lower lobes. LIVER: Unremarkable. No gross lesion or ductal dilatation. 2 cm simple cyst GALLBLADDER AND BILE DUCTS: Gallbladder distended PANCREAS: Unremarkable. No gross lesion or ductal dilatation. SPLEEN: Unremarkable. ADRENALS: Unremarkable. No mass. KIDNEYS AND URETERS: Unremarkable. No hydronephrosis. No solid mass. VASCULATURE: Unremarkable. No aortic aneurysm. BOWEL: There multiple mildly dilated loops of small bowel with air-fluid levels consistent with partial obstruction. There is no evidence of pneumatosis or free air APPENDIX: Unremarkable. Normal appendix. PERITONEUM: Unremarkable. No free fluid. No free air. LYMPH NODES: Unremarkable. No enlarged lymph nodes. BLADDER: Unremarkable. REPRODUCTIVE: Unremarkable. BONES: As noted previously there is a lytic lesion on the right side of the sacrum OTHER FINDINGS: There is a large amount of subcutaneous edema IMPRESSION: Partial small bowel obstruction Lytic lesion right side of sacrum
--- NOTE | 2016-10-19 16:55 | PN ---
DATE: 10/19/2016 The patient is in room 364, bed 2. SUBJECTIVE: The patient is seen lying in bed, still having diarrhea. Last dose of sandostatin was y . She had 2 massive bowel movements while I was visiting her. Stool was greenish in color. No evidence of any blood in the stool. The patient has a significant irritation in the vulvovaginal area, and around the sacrococcygeal area, she has 2 areas of decubitus ulcer. One of them was from radiation and there is a new ulcer, probably from chronic position on the back, that is being s een and taken care of by the surgical department at this time. The patient has a special dressing fo r the decubitus and we have sent the stool for both C. diff and stool for occult blood. The patient is still complaining of significant odynophagia, unable to take anything more than liquids, which cau ses significant burning for her. She is able to take soft diet like pureed , etc. Still not ab le to take anything by mouth alone. She is on starvation mode. The patient has been started on TPN. PHYSICAL EXAMINATION: GENERAL: The patient is awake, alert, ill-looking. Temporal muscle wasting is noted. HEENT: Head is normocephalic, atraumatic. Conjunctivae pale. Sclerae are anicteric. Examination of the oropharynx reveals tongue to be moist. There is grade II mucositis still and most of her pain is in the oropharynx and down into the cervical esophagus, for which the patient is on multiple medi cations. Tongue is coated, but definitely better than before and moist. Examination of the lips reve als them to be again cracked and peeling, and she is on topical creams for the same. NECK: Supple. There is no adenopathy. No jugular venous distention noted. LUNGS: Clear to percussion and auscultation. HEART: Reveals PMI to be in the 5th intercostal space inside the midclavicular line. S1 and S2 are normal. No gallop or murmur is heard. ABDOMEN: Mildly distended, distended, soft. Tenderness in the lower quadrant is noted. EXTREMITIES: Reveals no cyanosis, clubbing or edema of the lower extremity, but definitely patient h as edema around the thighs secondary to hypoproteinemia. INTAKE AND OUTPUT: Intake is 1105, output is 800. LABORATORY DATA: The patient's lab data were reviewed and they revealed the following: The patient' s white count is 16.2, hemoglobin 9.7, hematocrit 28, platelet count is 47,000 and manual count of 60 . Chemistries reveal a sodium of 152, potassium is 3.9, chloride is 123, BUN 102, creatinine 1.8. T otal protein is 4.4 with an albumin of 1.9, and corrected calcium is better. MEDICATIONS: The patient's medications were reviewed and she is on acyclovir 370 mg q. 8 hours IV da mellissa. She is on Benadryl 25 mg IV q. 4 hours p.r.n. for allergy, sucralfate 1 gram b.i.d. She is on Desitin topically for the rash on the vulvovaginal area. She was for her mouth along with the Magic mouthwash. She has been started on TPN daily. Plan is to go at least 800 mL a day. Metoprolo l 5 mg IV q. 6 hours p.r.n. for heart rate sustaining greater than 130. Metoprolol 25 mg p.o. b.i.d. has been started as well. She is on meropenem 1 gram IV q. 12 hours, which has been put on hold bec ause she had extreme episodes of dizziness. She is on micafungin 50 mg in 100 mL once daily. She is on morphine sulfate 1 mg IV q. 3 hours p.r.n. for moderate to severe pain, vitamin D and vitamin C i n a 10 mL vial injected into the PPN along with the amino acids. She is on Orajel topically also for the sores in the mouth. She is on Protonix 40 mg IV daily and she is on collagenase 1 gram b.i.d. t o apply to the sacral decubitus that needs to be debrided. She is on Zofran 4 mg IV q. 6 hours p.r.n . ASSESSMENT NOTES AND PLAN: The patient is slowly recovering from neutropenic fever and sepsis and hy potension, septic shock, acute kidney injury along with radiation and chemo related enteritis. Today 's CAT scan shows still persistent dilatation of the small bowel loops, consistent either with distal enteritis or partial bowel obstruction. There is no free air under the diaphragm. Clinically, the patient is improving objectively, so along with this, the findings on the CBC also showed there is gr adual improvement. We will continue our course with IV total parenteral nutrition, oral supplementat ion as is feasible, and continuing along with all these current medications to see how she does. Blo od work for a.m. have been requested. Hopefully, she will be able to stand up and do some activities for daily living over the next 2 days. Routine post exam instructions have been given to the patien t. The patient has not had any significant issues as far as nausea or vomiting are concerned at this point. Kedar Hendricks MD cc: [id number] TT: 10/19/2016 16:54:44 Confirmation # [id number] Dictation # [id number] ln
--- NOTE | 2016-10-19 17:26 | CP.PCM.PN ---
Subjective - Date & Time of Evaluation Date of Evaluation: 10/19/16 Time of Evaluation: 09:30 - Subjective Subjective: Patient is still having some pain in the mouth but a little better, drinking her tea, trying to eat oatmeal. No fevers overnight. Objective - Vital Signs/Intake and Output Vital Signs (last 24 hours): Temp Pulse Resp BP Pulse Ox 97.6 F 77 20 143/81 97 10/19/16 08:14 10/19/16 08:14 10/19/16 08:14 10/19/16 08:14 10/19/16 08:14 Intake and Output: 10/19/16 10/19/16 06:59 18:59 Intake Total 360 240 Output Total 200 400 Balance 160 -160 - Medications Medications: Current Medications Benzocaine (Orajel Pm Maximum Strength) 0 gm MT QID PRN PRN Reason: Pain, moderate (4-7) Last Admin: 10/18/16 05:27 Dose: 1 dose Collagenase (Santyl) 1 gm TOP BID RODRÍGUEZ Al Hydrox/Mg Hydrox/Simethicone 30 ml/Diphenhydramine HCl 75 mg/Lidocaine 30 ml 0 ml PO Q2H PRN PRN Reason: Mouth/Throat Pain Last Admin: 10/18/16 05:27 Dose: 10 ml Diphenhydramine HCl (Benadryl) 25 mg IVP Q4H PRN PRN Reason: Allergy symptoms Last Admin: 10/18/16 13:29 Dose: 25 mg Home Med (Home Med) 1 unit PO Q12H PRN PRN Reason: Inflammation Last Admin: 10/18/16 11:03 Dose: 1 unit Meropenem 1g/NS 100mL IVPB (Meropenem 1g/Ns 100ml Ivpb) 1 gm in 100 mls @ 100 mls/hr IVPB Q12 [facility] PRN Reason: Protocol Stop: 10/19/16 16:34 Last Admin: 10/17/16 09:25 Dose: 100 mls/hr Micafungin Sodium 50 mg/ (Sodium Chloride) 100 mls @ 100 mls/hr IV DAILY [facility] PRN Reason: Protocol Stop: 10/24/16 10:01 Last Admin: 10/18/16 13:08 Dose: Not Given Acyclovir 370 mg/ Sodium (Chloride) 100 mls @ 100 mls/hr IV DAILY [facility] PRN Reason: Protocol Last Admin: 10/18/16 13:52 Dose: Not Given Multivitamins/Vitamin C 10 ml/Amino Acids/Electrolytes/Dextrose 2,010 mls @ 83 mls/hr IV .Q24H [facility] Stop: 10/20/16 17:59 Last Admin: 10/18/16 22:27 Dose: 83 mls/hr Fat Emulsion Intravenous (Intralipid 20%) 250 mls @ 11.905 mls/hr IV DAILY@ 1800 [facility] Stop: 10/20/16 17:59 Last Admin: 10/18/16 22:28 Dose: 11.905 mls/hr Metoprolol Tartrate (Lopressor) 25 mg PO BID [facility] Last Admin: 10/18/16 18:37 Dose: 25 mg Metoprolol Tartrate (Lopressor) 5 mg IVP Q6H PRN PRN Reason: Sustained HR > 130 Morphine Sulfate (Morphine) 1 mg IVP Q3 PRN PRN Reason: Pain, moderate (4-7) Last Admin: 10/19/16 01:58 Dose: 1 mg Multi-Ingredient Ointment (Hydrophor Oint) 0 gm TOP Q6H [facility] Last Admin: 10/19/16 02:44 Dose: Not Given Ondansetron HCl (Zofran Inj) 4 mg IVP Q6 [facility] Last Admin: 10/19/16 06:24 Dose: 4 mg Pantoprazole Sodium (Protonix Inj) 40 mg IVP DAILY [facility] Last Admin: 10/18/16 11:01 Dose: 40 mg Sucralfate (Carafate Oral Susp) 1 gm PO BID [facility] Last Admin: 10/18/16 18:36 Dose: 1 gm - Labs Labs: 10/19/16 06:30 10/19/16 06:30 PT 13.9 Seconds (9.9-11.8) H 10/18/16 06:00 INR 1.29 (0.93-1.08) H 10/18/16 06:00 APTT 39.9 Seconds (23.7-30.8) H 10/09/16 12:01 - Constitutional Appears: Non-toxic, No Acute Distress - Head Exam Head Exam: NORMAL INSPECTION - ENT Exam ENT Exam: Mucous Membranes Moist - Neck Exam Neck Exam: absent: Lymphadenopathy, Meningismus - Respiratory Exam Respiratory Exam: Decreased Breath Sounds - Cardiovascular Exam Cardiovascular Exam: +S1, +S2 - GI/Abdominal Exam GI & Abdominal Exam: Soft. absent: Tenderness Assessment and Plan - Assessment and Plan (Free Text) Plan: Assessment S/P severe sepsis with acute renal failure due to acute enteritis in this patient with acute neutropenia (now resolved) from chemotherapy for her stage 4 colon cancer Partial small bowel obstruction Acute stomatitis and mucositis, slowly improving Neutropenia probably from chemotherapy, resolved HTN 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 S/P colectomy in 2014 history of UTI GERD anxiety Plan continue Mycamine and Acyclovir (renally-adjusted) for her stomatitis and mucositis Reviewed repeat CT scan of the abdomen and pelvis which shows the partial small bowel obstruction Will continue to follow clinically Overall prognosis is poor
[2016-10-19] MEDS: Fat Emulsion 20% IV 250 ML IV SCH (17:52)
[2016-10-19] MEDS: Multivitamin (MVI) 10 ML in Amino/Dext 4.25/5 2,000 ML IV SCH (17:52)
--- NOTE | 2016-10-19 23:36 | PN ---
DATE: 10/19/2016 ADDENDUM: This is an addendum to the GI progress report dictated by Yoana Osei APN. SUBJECTIVE: The patient was seen and evaluated earlier. Discussed with the family members who are a t bedside. The patient feels that the diarrhea is slowing down. PHYSICAL EXAMINATION: ABDOMEN: Softly distended. IMAGING: The CT scan was reviewed. Shows a partial obstruction cannot be ruled out. The patient do es have ascites, partial dilated loops of small bowel noted. The patient still has loose bowel movements, suggestive of this is not a complete obstruction. Definite possibility could be due to e nteritis. The patient still has difficulty in swallowing and painful swallowing. The patient was on Sandostatin. We will continue it again for another 24 hours. Will discontinue when the diarrhea im proves. Tong Null MD cc: [id number] TT: 10/19/2016 23:36:04 Confirmation # [id number] Dictation # [id number] mark
[2016-10-20] MEDS: Morphine 2 mg/ml ISec IVP PRN (00:48)
[2016-10-20] MEDS: DiphenhydrAMINE 50 mg/ml Inj IVP PRN (01:23)
[2016-10-20] MEDS: Petrolatum-Mineral Oil Oint (100gm) TOP SCH ×4 (03:00→22:02)
[2016-10-20 08:00] LABS: ALBUMIN 1.9 g/dL (3.0-4.8); CALCIUM 7.2 mg/dL (8.4-10.5); MAGNESIUM 1.7 mg/dL (1.7-2.2)
[2016-10-20 08:04] LABS: ALB/GLOB RATIO 0.8 (1.1-1.8)
[2016-10-20 08:21] LABS: HEMOGLOBIN 9.7 gm/dL (12.0-16.0); MEAN CELL VOLUME 87.9 fL (80.0-105.0); MEAN CORPUSCULAR HEMOGLOBIN 29.3 pg (25.0-35.0); MEAN CORPUSCULAR HGB CONC 33.3 g/dl (31.0-37.0); PLATELET COUNT 47 10^3/uL (120.0-450.0); RBC 3.31 10^6/uL (3.5-6.1); WHITE BLOOD COUNT 15.7 10^3/ul (4.5-11.0)
[2016-10-20 09:35] LABS: ANISOCYTOSIS SLIGHT; BAND 8 % (0-2); HYPOCHROMIA SLIGHT; LARGE PLATELETS PRESENT; LYMPHOCYTE 2 % (22.0-35.0); MONOCYTE 3 % (1.0-6.0); NEUTROPHIL 87 % (50.0-70.0); PLATELET COUNT MANUAL 60 K/mm3 (120-450); PLATELET ESTIMATE LOW (NORMAL); SMUDGE CELLS PRESENT
[2016-10-20 09:36] LABS: OVALOCYTES SLIGHT; POIKILOCYTOSIS SLIGHT; TEAR DROP CELLS SLIGHT
--- NOTE | 2016-10-20 09:41 | PN ---
DATE: 10/20/2016 SUBJECTIVE: The patient is currently seen lying comfortable on 3R. Hyperalimentation is infusing. Potassium level is low this morning at 3.2. Her BUN and creatinine have improved. MEDICATIONS: Medication list reviewed. The patient is currently on IV acyclovir, Benadryl, Carafate, Desitin, triamcinolone dental paste, hyperalimentation with intralipid, Lopressor, aluminum hydroxide, magnesium hydroxide, simethicone, lidocaine swish and swallow, micafungin, morphine p.r.n. , benzocaine, Orajel, Protonix, Santyl, Zofran p.r.n. OBJECTIVE: INTAKE AND OUTPUT: Intake 1260, output 1700. VITAL SIGNS: Blood pressure is 156/83, temperature 97.5, respiratory rate 20 with a pulse of 75. Pulse ox is 99%. HEENT: Normocephalic, atraumatic. Conjunctivae are pale. NECK: Supple, no neck vein distention. CHEST: Clear to auscultation and percussion. CARDIOVASCULAR: S1, S2 normal, no murmurs, rubs, or gallops. ABDOMEN: Soft. Bowel sounds normal. Mild right lower quadrant tenderness on palpation. No rebound, no guarding. EXTREMITIES: No significant lower extremity edema. LABORATORY DATA AND IMAGING: CBC: White blood cell count 15.7, hemoglobin 9.7 , platelet count is 47,000. Chemistries today: Sodium 151, potassium 3.2, chloride 122 with a CO2 of 22. BUN 87 with a creatinine of 1.4. Glucose is 114. Calcium 7.2 corrects to normal. Albumin is 1.9. Liver enzymes are normal. MICROBIOLOGY: Urine was positive for E. coli. Repeat C. diff remains negative. ASSESSMENT: 1. Acute renal failure, improving. BUN and creatinine are down to 87 and 1.4 from a high of 128 and 3.6. This is felt to be in the setting of volume depletion secondary to diarrhea. The patient continues to have diarrhea. Of note, she has a hyperchloremic metabolic acidosis which has partially corrected with acetate in her hyperalimentation. The patient's sodium level remains borderline elevated. She will continue sodium-free hyperalimentation. 2. 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 The patient being followed by Dr. Hendricks. 3. Diarrhea. Gastroenterology evaluation in progress. Stools are negative for Clostridium difficile. She is felt to have possible enteritis. 4. Escherichia coli urinary tract infection. The patient is completing a course of antibiotic therapy. 5. History of anemia and thrombocytopenia, likely secondary to metastatic colon cancer. PLAN: 1. We will supplement potassium today and perhaps add potassium to her hyperalimentation if her potassium level continues to remain low. 2. Continue to monitor accurate I's and O's and daily labs. 3. Complete a course of antibiotic therapy, antifungal therapy and antiviral therapy as per ID. Kyle Brooks MD cc: [id number] TT: 10/20/2016 09:41:23 Confirmation # [id number] Dictation # [id number] tn MTDD
[2016-10-20] MEDS: Sucralfate 1 gm/10 ml Oral Susp UD PO SCH ×2 (10:27→18:31)
[2016-10-20] MEDS: Collagenase 250 Units/gm Ointment(30 gm) TOP SCH ×3 (10:30→18:33)
[2016-10-20] MEDS: Aluminum Hydroxide/Magnesium 30 ML, DiphenhydrAMINE 75 MG, Lidocaine 2% Viscous 30 ML PO PRN ×2 (12:41→18:36)
--- NOTE | 2016-10-20 17:56 | PN ---
DATE: 10/20/2016 SUBJECTIVE: This patient was seen and evaluated earlier. Discussed with Dr. Hendricks ____. The antwon ent's sister was at bedside. The patient did have only 3 small episodes of loose bowel movements tod ay. Overall she is feeling better today. Her abdominal discomfort has also gotten better. PHYSICAL EXAMINATION: VITAL SIGNS: Temperature is 97.5, pulse is 63, blood pressure 130/64. HEENT: Atraumatic, anicteric. The patient does have this mouth soreness present. NECK: Supple. HEART: S1, S2 heard. LUNGS: Bilateral air entry present, slightly reduced at the base. ABDOMEN: Soft. There is a mild tenderness on deep palpation in the lower abdomen. EXTREMITIES: No edema, no cyanosis. LABORATORY DATA: Hemoglobin is 9.7, hematocrit 29.1, WBC 15.7, platelets 47,000, manual 60,000. Chl oride 122, bicarbonate 22, BUN 87, creatinine 1.4. IMPRESSION: This a 61-year-old patient status post chemo, admitted with urosepsis, enteritis, acute renal failure, clinically slowly improving. The patient does have some soreness of the mouth and muc ositis sepsis, on antifungal and antiviral as per ID. The patient has partially obstructing lesion p roximal to the anastomosis distally, has episodes of loose bowel movement. This CT scan done showed a partial small-bowel obstruction; however, examination today her abdomen appears to be more flat, le ss tender. I had a detailed discussion with the family and also with Dr. Hendricks. The patient, even though has a more frequent bowel movements, the volume appears to be smaller. The patient did have partial smal l-bowel obstruction, but appears to be clinically improving. The reasonable thing is to hold off oct reotide unless the patient has a large volume, frequent diarrhea. If that comes, we can also conside r a small dose of Imodium, rather than restarting the patient on octreotide. There is a concern abou t this small-bowel obstruction with small bowel distention which appears to be improved now. We will continue to closely follow up her care. Would recommend to patient leave only on a liquid diet audrey aguero Thank you very much for allowing us to participate in the care of the patient. Tong Null MD cc: [id number] TT: 10/20/2016 17:55:59 Confirmation # [id number] Dictation # [id number] jn
--- NOTE | 2016-10-20 18:15 | PN ---
DATE: 10/20/2016 The patient seen earlier. No fevers and no chills. PHYSICAL EXAMINATION: VITAL SIGNS: Temperature is 97, blood pressure is 150/80, respiratory rate of 16. HEENT: Unremarkable. NECK: Supple. LUNGS: Have decreased breath sounds. HEART: Normal S1, S2. ABDOMEN: Soft, nontender. LABORATORY DATA: Reveals a white count of 15,000, hemoglobin of 9, platelets of 47,000 and creatinin e is 1.4. Urinalysis is noted. Microbiology reveals the patient's stool for C. diff is negative ant igen and negative toxin. The patient has E. coli in the urine from 10/09. Review of the orders reveals the patient to be on micafungin and acyclovir. ASSESSMENT AND PLAN: This is a 61-year-old with status post severe sepsis, acute renal failure due t o acute enteritis in the face of acute neutropenia which is resolved and acute stomatitis and mucosit is slowly improving, neutropenia from chemotherapy, which is resolved in the setting of colon cancer, stage IV, with cauda equina syndrome, status post colectomy in 2014 and Mycamine and acyclovir renal ly adjusted with a small-bowel obstruction. Dr. Null's note is reviewed. Overall, prognosis is poor. Should consider hospice setting for this patient. Lang Akhtar MD cc: [phone] TT: 10/20/2016 18:14:39 Confirmation # [id number] Dictation # [id number] jn
[2016-10-20] MEDS: Bismuth Subsalicylate 262 mg/15 ml Sus (240 ml) PO SCH (18:32)
[2016-10-20] MEDS: Multivitamin (MVI) 10 ML in Amino/Dext 4.25/5 2,000 ML IV SCH (18:32)
[2016-10-20] MEDS: Fat Emulsion 20% IV 250 ML IV SCH (18:34)
[2016-10-20 20:52] LABS: ALB/GLOB RATIO 0.7 (1.1-1.8); ALBUMIN 1.7 g/dL (3.0-4.8); CALCIUM 7.2 mg/dL (8.4-10.5)
[2016-10-20 21:45] LABS: BASO # 0.03 K/mm3 (0.0-2.0); BASO % 0.2 % (0.0-3.0); EOS % 0.1 % (1.5-5.0); GRAN # 12.35 (1.4-6.5); HEMOGLOBIN 9.2 gm/dL (12.0-16.0); LYMPH # 0.9 (1.2-3.4); LYMPH % 6.3 % (22.0-35.0); MEAN CELL VOLUME 91.5 fL (80.0-105.0); MEAN CORPUSCULAR HEMOGLOBIN 31.4 pg (25.0-35.0); MEAN CORPUSCULAR HGB CONC 34.3 g/dl (31.0-37.0); MONO # 0.8 (0.1-0.6); MONO % 5.4 % (1.0-6.0); PLATELET COUNT 42 10^3/uL (120.0-450.0); RBC 2.93 10^6/uL (3.5-6.1); RED CELL DISTRIBUTION WIDTH 20.3 % (11.5-14.5)
--- NOTE | 2016-10-20 22:19 | CP.PCM.PN ---
Subjective - Date & Time of Evaluation Date of Evaluation: 10/20/16 Time of Evaluation: 17:00 - Subjective Subjective: oral pain slightly improving. 3 BM's today thus far and BM's appear to be less liquid and voluminous. 12 ROS otherwise negative Objective - Vital Signs/Intake and Output Vital Signs (last 24 hours): Temp Pulse Resp BP Pulse Ox 98.0 F 91 H 18 159/86 H 99 10/20/16 18:00 10/20/16 18:34 10/20/16 18:00 10/20/16 18:34 10/20/16 18:00 Intake and Output: 10/20/16 10/21/16 18:59 06:59 Intake Total 120 240 Output Total 3 Balance 120 237 - Medications Medications: Current Medications Benzocaine (Orajel Pm Maximum Strength) 0 gm MT QID PRN PRN Reason: Pain, moderate (4-7) Last Admin: 10/18/16 05:27 Dose: 1 dose Bismuth Subsalicylate (Pepto-Bismol) 262 mg PO BID [facility] Last Admin: 10/20/16 18:32 Dose: 262 mg Collagenase (Santyl) 1 gm TOP BID [facility] Last Admin: 10/20/16 18:33 Dose: 1 applic Al Hydrox/Mg Hydrox/Simethicone 30 ml/Diphenhydramine HCl 75 mg/Lidocaine 30 ml 0 ml PO Q2H PRN PRN Reason: Mouth/Throat Pain Last Admin: 10/20/16 18:36 Dose: 30 ml Diphenhydramine HCl (Benadryl) 25 mg IVP Q4H PRN PRN Reason: Allergy symptoms Last Admin: 10/20/16 01:23 Dose: 25 mg Home Med (Home Med) 1 unit PO Q12H PRN PRN Reason: Inflammation Last Admin: 10/18/16 11:03 Dose: 1 unit Micafungin Sodium 50 mg/ (Sodium Chloride) 100 mls @ 100 mls/hr IV DAILY [facility] PRN Reason: Protocol Stop: 10/24/16 10:01 Last Admin: 10/20/16 10:36 Dose: 100 mls/hr Acyclovir 370 mg/ Sodium (Chloride) 100 mls @ 100 mls/hr IV DAILY [facility] PRN Reason: Protocol Last Admin: 10/20/16 10:29 Dose: 100 mls/hr Multivitamins/Vitamin C 10 ml/ (Amino Acids) 2,010 mls @ 83 mls/hr IV .Q24H [facility] Stop: 10/22/16 17:59 Last Admin: 10/20/16 18:32 Dose: 83 mls/hr Fat Emulsion Intravenous (Intralipid 20%) 250 mls @ 11.905 mls/hr IV DAILY@ 1800 [facility] Stop: 10/22/16 17:59 Last Admin: 10/20/16 18:34 Dose: 11.905 mls/hr Metoprolol Tartrate (Lopressor) 25 mg PO BID [facility] Last Admin: 10/20/16 18:34 Dose: 25 mg Metoprolol Tartrate (Lopressor) 5 mg IVP Q6H PRN PRN Reason: Sustained HR > 130 Morphine Sulfate (Morphine) 1 mg IVP Q3 PRN PRN Reason: Pain, moderate (4-7) Last Admin: 10/20/16 00:48 Dose: 1 mg Multi-Ingredient Ointment (Hydrophor Oint) 0 gm TOP Q6H [facility] Last Admin: 10/20/16 22:02 Dose: 1 applic Ondansetron HCl (Zofran Inj) 4 mg IVP Q6 [facility] Last Admin: 10/20/16 18:33 Dose: 4 mg Pantoprazole Sodium (Protonix Inj) 40 mg IVP DAILY [facility] Last Admin: 10/20/16 10:29 Dose: 40 mg Petrolatum (Desitin Maximum Strength Topical 40% Oint) 1 gm TOP Q4H PRN PRN Reason: Rash Sucralfate (Carafate Oral Susp) 1 gm PO BID [facility] Last Admin: 10/20/16 18:31 Dose: 1 gm Throat Lozenges (Cepastat) 1 francis MT Q2H PRN PRN Reason: Sore Throat - Labs Labs: 10/20/16 20:00 10/20/16 20:00 PT 13.9 Seconds (9.9-11.8) H 10/18/16 06:00 INR 1.29 (0.93-1.08) H 10/18/16 06:00 APTT 39.9 Seconds (23.7-30.8) H 10/09/16 12:01 - Constitutional Appears: Non-toxic, Chronically Ill - ENT Exam Additional comments: Mucositis evident on OP exam - Respiratory Exam Respiratory Exam: Clear to Ausculation Bilateral, NORMAL BREATHING PATTERN - Cardiovascular Exam Cardiovascular Exam: REGULAR RHYTHM, +S1, +S2. absent: Murmur - GI/Abdominal Exam GI & Abdominal Exam: Soft, Normal Bowel Sounds. absent: Tenderness - Extremities Exam Extremities Exam: Full ROM, Normal Capillary Refill, Normal Inspection. absent : Joint Swelling, Pedal Edema Assessment and Plan (1) Colon tumor Status: Chronic - Assessment and Plan (Free Text) Assessment: Ms. Gibson arik 61 y/o female with pmhx signficant for stage IV colon CA s/p hemicolectomy admitted with neutropenic sepsis, mucositis, and entertitis. Patient counts have since recovered and she appears to be slowly improving. Bowel movement volume and quantity has decreased and her oral mucositis related pain has been improving. She has been tolerating some PO intake with oatmeal, ice chips, and water #Mucositis -cotinue with mycamine and acylcovir per ID, oral rinses -prn MSIR #Enteritis with partial small bowel obtstruction -continue lomitil; consider octreotide per GI if diarrhea worsens -appreciate GI recommedations #Sacral decubitu ulcers -continue wound dressings per wound care/surgery #FEN -oral intake as tolerated -TPN -continue to work with PT -DVT ppx- venodynes; chemo ppx avoided for now due to thrombocytopenia [facility]
[2016-10-21] MEDS: Petrolatum-Mineral Oil Oint (100gm) TOP SCH ×4 (02:36→22:23)
[2016-10-21] MEDS: Morphine 2 mg/ml ISec IVP PRN ×3 (03:26→20:10)
[2016-10-21 08:24] LABS: BASO # 0.02 K/mm3 (0.0-2.0); BASO % 0.2 % (0.0-3.0); EOS % 0.1 % (1.5-5.0); GRAN # 10.75 (1.4-6.5); GRAN % 87.5 % (50.0-68.0); HEMOGLOBIN 8.6 gm/dL (12.0-16.0); LYMPH # 0.7 (1.2-3.4); LYMPH % 5.9 % (22.0-35.0); MEAN CELL VOLUME 92.8 fL (80.0-105.0); MEAN CORPUSCULAR HEMOGLOBIN 32.6 pg (25.0-35.0); MEAN CORPUSCULAR HGB CONC 35.1 g/dl (31.0-37.0); MONO # 0.8 (0.1-0.6); MONO % 6.3 % (1.0-6.0); RBC 2.64 10^6/uL (3.5-6.1); RED CELL DISTRIBUTION WIDTH 21.1 % (11.5-14.5); WHITE BLOOD COUNT 12.3 10^3/ul (4.5-11.0)
[2016-10-21 08:25] LABS: PLATELET COUNT 45 10^3/uL (120.0-450.0)
[2016-10-21] MEDS: Sucralfate 1 gm/10 ml Oral Susp UD PO SCH ×2 (09:19→17:32)
[2016-10-21] MEDS: Collagenase 250 Units/gm Ointment(30 gm) TOP SCH ×2 (09:22→17:32)
[2016-10-21 09:46] LABS: ALB/GLOB RATIO 0.7 (1.1-1.8); ALBUMIN 1.7 g/dL (3.0-4.8); CALCIUM 7.1 mg/dL (8.4-10.5); MAGNESIUM 1.5 mg/dL (1.7-2.2)
[2016-10-21] MEDS: Bismuth Subsalicylate 262 mg/15 ml Sus (240 ml) PO SCH ×2 (09:51→17:32)
--- NOTE | 2016-10-21 09:59 | PN ---
DATE: 10/21/2016 SUBJECTIVE: The patient is currently seen lying comfortable on 3R. Hyperalimentation is infusing. Potassium level remains low and patient is receiving additional potassium supplements. The patient remains prerenal. MEDICATIONS: List reviewed. The patient is currently on acyclovir, Benadryl, Carafate, Desitin, triamcinolone paste, hyperalimentation, Lopressor, micafungin, morphine, Orajel, Pepto-Bismol, Protonix, Santyl, and Zofran p.r.n. OBJECTIVE: INTAKE AND OUTPUT: Intake 360+. Output, despite having a Salazar catheter, not charted. VITAL SIGNS: Blood pressure 159/86, temperature 98, respiratory rate 18 with a pulse of 91. HEENT: Normocephalic, atraumatic. Conjunctivae are pale. Sclerae are nonicteric. NECK: Supple, no neck vein distention. CHEST: Clear to auscultation and percussion. CARDIOVASCULAR: S1, S2 normal, no murmurs, rubs, or gallops. ABDOMEN: Soft. Bowel sounds normal. Minimal right lower quadrant tenderness on palpation. No rebound, no guarding. EXTREMITIES: Show no lower extremity cyanosis, clubbing or edema. LABORATORY DATA AND IMAGING: White blood cell count today is 12.3 with a hemoglobin of 8.6 and a platelet count of manual of 45,000. Chemistries today, sodium 150, potassium 3.3, chloride 122, BUN 73 with a creatinine of 1.4, which shows continued improvement. Glucose 109, calcium 7.2 with an albumin of 1.7, it corrects to normal. Phosphorus is 4.1 with a magnesium of 1.7. Microbiology : Urines are positive for E. coli. Repeat C. diff remains negative despite her having diarrhea. ASSESSMENT: 1. Acute renal failure, improving. The patient remains prerenal in nature. BUN continues to drop. Creatinine is down to 1.4. Her baseline creatinine is less than 1. Her baseline BUN is less than 20. The patient remains volume depleted, possibly secondary to continued diarrhea. She also remains on hyperalimentation. 2. Mild hypernatremia. The patient continues low sodium hyperalimentation. 3. History of stage IV metastatic colon cancer with bone mets. The patient is being followed by oncology. 4. History of diarrhea. GI evaluation in progress. Stools have been negative for Clostridium difficile. The patient is felt to have enteritis. 5. History of Escherichia coli urinary tract infection. The patient has completed a course of antibiotic therapy. 6. History of anemia and thrombocytopenia, likely secondary to metastatic colon cancer. 7. Mild hypokalemia. The patient remains on potassium in the hyperal, but we will continue to give her K riders as necessary. Today's labs are pending. PLAN: 1. P.r.n. supplement potassium with K riders. 2. Need to monitor accurate I's and O's. This once again was discussed with the staff on 3R. 3. Continue empiric course of antifungal and antiviral therapy as per ID. The patient appears to have completed a course of antibiotic therapy. Kyle Brooks MD cc: [id number] TT: 10/21/2016 09:59:16 Confirmation # [id number] Dictation # [id number] en MTDD
[2016-10-21 10:15] LABS: PLATELET COUNT MANUAL 58 K/mm3 (120-450)
--- NOTE | 2016-10-21 15:18 | PN ---
DATE: 10/21/2016 The patient is in bed, in no acute distress, nontoxic. PHYSICAL EXAMINATION: VITAL SIGNS: Temperature is 98, blood pressure is 150/70, respiratory rate of 16. HEENT: Unremarkable. NECK: Supple. LUNGS: Have decreased breath sounds. HEART: Normal S1, S2. ABDOMEN: Soft, nontender. LABORATORY EXAMINATION: Reveals a white count 12,300, hemoglobin of 8. Chemistries reveals a BUN of 68, creatinine of 1.3. Dr. Hendricks's note is reviewed from yesterday. Dr. Brooks's note from today is reviewed. ASSESSMENT AND PLAN: A 61-year-old female who appears end-stage, admitted with severe sepsis, acute renal failure, acute enteritis in face of acute neutropenia which is resolved and acute stomatitis an d mucositis, slowly improving and neutropenia from chemotherapy in the setting of stage IV colon canc er with cauda equina syndrome and status post colectomy. Currently on Mycamine and acyclovir. Overa ll, prognosis is quite poor for this patient who appears end-stage. Should consider hospice setting or palliative care. Lang Akhtar MD cc: [phone] TT: 10/21/2016 15:17:36 Confirmation # [id number] Dictation # [id number] en
--- NOTE | 2016-10-21 17:16 | PN ---
DATE: 10/21/2016 SUBJECTIVE: This patient was seen and evaluated earlier. Discussed with Dr. Hendricks. The patient h as now significant episodes of amount of loose bowel movements; today multiple episodes. There was a concern about the volume depletion. The patient still has abdominal pain, but feels slightly better . PHYSICAL EXAMINATION: VITAL SIGNS: Temperature is 98.7, blood pressure 153/64, temperature 64, respiration is 17, O2 satur ation 98%. HEENT: Atraumatic, anicteric. NECK: Supple. HEART: S1, S2 heard. LUNGS: Bilateral air entry present. ABDOMEN: Soft. There is mild tenderness present on deep palpation diffusely. EXTREMITIES: No cyanosis, no clubbing. LABORATORY DATA: Hemoglobin 8.6, hematocrit 24.5, WBC 12.3, platelets 45. Sodium 148, potassium 2.9 , chloride 123, bicarbonate 19, BUN 68, creatinine 1.3. 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 The patient has oropharyngeal ulcer ation on antifungal and acyclovir. Has significant diarrhea still. Will start the patient back on o ctreotide and along with this will give 1 dose of codeine 30 mg and will discontinued the Imodium. W ill continue to closely follow up in her care. Tong Null MD cc: [id number] TT: 10/21/2016 17:15:10 Confirmation # [id number] Dictation # [id number] chastity
[2016-10-21] MEDS: Multivitamin (MVI) 10 ML in Amino/Dext 4.25/5 2,000 ML IV SCH (17:28)
[2016-10-21] MEDS ORDERED: Fat Emulsion 20% IV 250 ML IV SCH (18:00)
--- NOTE | 2016-10-21 20:53 | CP.PCM.PN ---
Subjective - Date & Time of Evaluation Date of Evaluation: 10/21/16 Time of Evaluation: 16:00 - Subjective Subjective: Patient able to tolerate some more PO intake. Friend brought over some losanges which she felt was very soothing for her. Continues to have diarrhea. Given Immodium this AM but continues to have considerable output. 12 ROS otherwise negative Objective - Vital Signs/Intake and Output Vital Signs (last 24 hours): Temp Pulse Resp BP Pulse Ox 98.9 F 93 H 16 153/78 H 99 10/21/16 17:00 10/21/16 17:29 10/21/16 17:00 10/21/16 17:29 10/21/16 17:00 - Medications Medications: Current Medications Benzocaine (Orajel Pm Maximum Strength) 0 gm MT QID PRN PRN Reason: Pain, moderate (4-7) Last Admin: 10/18/16 05:27 Dose: 1 dose Bismuth Subsalicylate (Pepto-Bismol) 262 mg PO BID [facility] Last Admin: 10/21/16 17:32 Dose: Not Given Collagenase (Santyl) 1 gm TOP BID [facility] Last Admin: 10/21/16 17:32 Dose: 1 applic Al Hydrox/Mg Hydrox/Simethicone 30 ml/Diphenhydramine HCl 75 mg/Lidocaine 30 ml 0 ml PO Q2H PRN PRN Reason: Mouth/Throat Pain Last Admin: 10/20/16 18:36 Dose: 30 ml Diphenhydramine HCl (Benadryl) 25 mg IVP Q4H PRN PRN Reason: Allergy symptoms Last Admin: 10/20/16 01:23 Dose: 25 mg Home Med (Home Med) 1 unit PO Q12H PRN PRN Reason: Inflammation Last Admin: 10/18/16 11:03 Dose: 1 unit Micafungin Sodium 50 mg/ (Sodium Chloride) 100 mls @ 100 mls/hr IV DAILY [facility] PRN Reason: Protocol Stop: 10/24/16 10:01 Last Admin: 10/21/16 09:17 Dose: 100 mls/hr Acyclovir 370 mg/ Sodium (Chloride) 100 mls @ 100 mls/hr IV DAILY [facility] PRN Reason: Protocol Last Admin: 10/21/16 09:17 Dose: 100 mls/hr Multivitamins/Vitamin C 10 ml/ (Amino Acids) 2,010 mls @ 83 mls/hr IV .Q24H [facility] Stop: 10/22/16 17:59 Last Admin: 10/21/16 17:28 Dose: 83 mls/hr Fat Emulsion Intravenous (Intralipid 20%) 250 mls @ 21 mls/hr IV DAILY@1800 [facility] Stop: 10/22/16 17:59 Last Admin: 10/21/16 17:28 Dose: 21 mls/hr Metoprolol Tartrate (Lopressor) 25 mg PO BID [facility] Last Admin: 10/21/16 17:29 Dose: 25 mg Metoprolol Tartrate (Lopressor) 5 mg IVP Q6H PRN PRN Reason: Sustained HR > 130 Morphine Sulfate (Morphine) 1 mg IVP Q3 PRN PRN Reason: Pain, moderate (4-7) Last Admin: 10/21/16 20:10 Dose: 1 mg Multi-Ingredient Ointment (Hydrophor Oint) 0 gm TOP Q6H [facility] Last Admin: 10/21/16 13:43 Dose: 1 applic Octreotide Acetate (Sandostatin) 100 mcg SC Q8 [facility] Last Admin: 10/21/16 16:02 Dose: 100 mcg Ondansetron HCl (Zofran Inj) 4 mg IVP Q6 [facility] Last Admin: 10/21/16 17:32 Dose: Not Given Pantoprazole Sodium (Protonix Inj) 40 mg IVP DAILY [facility] Last Admin: 10/21/16 09:18 Dose: 40 mg Petrolatum (Desitin Maximum Strength Topical 40% Oint) 1 gm TOP Q4H PRN PRN Reason: Rash Sucralfate (Carafate Oral Susp) 1 gm PO BID [facility] Last Admin: 10/21/16 17:32 Dose: 1 gm Throat Lozenges (Cepastat) 1 francis MT Q2H PRN PRN Reason: Sore Throat - Labs Labs: 10/21/16 06:00 10/21/16 06:00 PT 13.9 Seconds (9.9-11.8) H 10/18/16 06:00 INR 1.29 (0.93-1.08) H 10/18/16 06:00 APTT 39.9 Seconds (23.7-30.8) H 10/09/16 12:01 - Constitutional Appears: Non-toxic - Respiratory Exam Respiratory Exam: Clear to Ausculation Bilateral, NORMAL BREATHING PATTERN - Cardiovascular Exam Cardiovascular Exam: REGULAR RHYTHM, +S1, +S2. absent: Murmur - GI/Abdominal Exam GI & Abdominal Exam: Distended, Soft, Hyperactive Bowel Sounds - Extremities Exam Extremities Exam: Full ROM, Normal Capillary Refill, Normal Inspection. absent : Joint Swelling, Pedal Edema Assessment and Plan (1) Colon tumor Status: Chronic - Assessment and Plan (Free Text) Assessment: Ms. Gibson arik 61 y/o female with pmhx signficant for stage IV colon CA s/p hemicolectomy admitted with neutropenic sepsis, mucositis, and entertitis. Patient counts have since recovered and while mucositis is slowly improving patientn continues to have considerable stool output. After discussion with GI will plan on trial of codeine and octreotride. #Mucositis -cotinue with mycamine and acylcovir per ID, oral rinses -prn MSIR #Enteritis with partial small bowel obtstruction -stop imodium -codeine; trial of octreotide. Want to be careful no to constipate patient given concern for obstruction -appreciate GI recommedations #Sacral decubitus ulcers -continue wound dressings per wound care/surgery #FEN -oral intake as tolerated -TPN -continue to work with PT -DVT ppx- venodynes; chemo ppx avoided for now due to thrombocytopenia [facility]
[2016-10-22] MEDS: Morphine 2 mg/ml ISec IVP PRN ×3 (00:19→11:20)
[2016-10-22] MEDS: DiphenhydrAMINE 50 mg/ml Inj IVP PRN ×2 (00:19→04:00)
[2016-10-22] MEDS: Petrolatum-Mineral Oil Oint (100gm) TOP SCH ×4 (02:16→20:40)
[2016-10-22 06:49] LABS: ALB/GLOB RATIO 0.7 (1.1-1.8); ALBUMIN 1.7 g/dL (3.0-4.8); MAGNESIUM 1.3 mg/dL (1.7-2.2)
[2016-10-22 06:58] LABS: CALCIUM 6.9 mg/dL (8.4-10.5)
[2016-10-22 07:00] LABS: MEAN CELL VOLUME 96.1 fL (80.0-105.0); MEAN CORPUSCULAR HEMOGLOBIN 35.3 pg (25.0-35.0); MEAN CORPUSCULAR HGB CONC 36.7 g/dl (31.0-37.0); PLATELET COUNT 67 10^3/uL (120.0-450.0); RBC 2.55 10^6/uL (3.5-6.1); RED CELL DISTRIBUTION WIDTH 22.9 % (11.5-14.5); WHITE BLOOD COUNT 13.1 10^3/ul (4.5-11.0)
[2016-10-22 08:26] LABS: BAND 9 % (0-2); LYMPHOCYTE 1 % (22.0-35.0); MONOCYTE 1 % (1.0-6.0); NEUTROPHIL 87 % (50.0-70.0); PLATELET COUNT MANUAL 86 K/mm3 (120-450)
[2016-10-22 08:27] LABS: PLATELET ESTIMATE LOW (NORMAL)
[2016-10-22] MEDS: Sucralfate 1 gm/10 ml Oral Susp UD PO SCH ×2 (09:45→17:29)
[2016-10-22] MEDS: Collagenase 250 Units/gm Ointment(30 gm) TOP SCH ×2 (09:47→17:30)
[2016-10-22] MEDS: Bismuth Subsalicylate 262 mg/15 ml Sus (240 ml) PO SCH ×2 (09:47→17:30)
[2016-10-22] MEDS ORDERED: Magnesium Sulfate 1 gm in D5W 1 GM/100 ML BAG IVPB ONE (11:09)
--- NOTE | 2016-10-22 12:19 | PN ---
DATE: 10/22/2016 SUBJECTIVE: The patient is seen sitting up in bed. She is awake, she is alert. She is still having diarrhea. She is still complaining of pain in the lower abdomen. PHYSICAL EXAMINATION: GENERAL: Elderly lady, sitting in bed. VITAL SIGNS: Blood pressure 143/88, heart rate 113, respiratory rate 21, temperature 98.2. HEENT: Normocephalic, atraumatic, positive pallor. NECK: Supple, no JVD. LUNGS: Bilateral equal air entry, no rales. CARDIAC: S1, S2, regular rate and rhythm, no murmur, no rub. ABDOMEN: Distended, soft, nontender, bowel sounds present. EXTREMITIES: 1+ pitting edema of the lower extremities, 2+ edema of the upper extremities. INTAKE AND OUTPUT: Not charted. LABORATORY DATA: WBC 13, hemoglobin 9, hematocrit 24.5, platelets 67. Sodium 146, potassium 3.0, ch loride 121, CO2 19, BUN 60, creatinine 1.2, glucose 120, calcium 6.9, phosphorus 3.1, magnesium 1.3, albumin 1.7, corrected calcium is 8.5. CURRENT MEDICATIONS: Acyclovir, Benadryl, sucralfate, Lopressor 25 b.i.d., mag sulfate 1 gram, micaf ungin, Protonix, Zofran, collagenase. ASSESSMENT: 1. Acute kidney injury, resolved. 2. Hypernatremia, resolved. 3. Severe hypokalemia. 4. Hypomagnesemia. 5. Severe hypoalbuminemia. 6. Escherichia coli urinary tract infection. 7. Persistent diarrhea. 8. Metastatic colon cancer with bone metastases. 9. Anemia. PLAN: 1. Potassium 20 mEq rider x 1. 2. Add potassium to hyperalimentation. 3. Magnesium rider x 1. 4. Push p.o. intake. 5. Continue antifungals and antiviral therapy as per ID. 6. GI followup for diarrhea. Adele Griffin MD cc: [id number] TT: 10/22/2016 12:18:15 Confirmation # [id number] Dictation # [id number] en
--- NOTE | 2016-10-22 15:59 | PN ---
DATE: 10/22/2016 Seen and examined at the bedside earlier today. The sister was there. The patient's oral discomfort is much improved. She was able to take in more liquids and her voice she is able to speak more. Markie faulkner did have an episode of diarrhea this morning. Yesterday she was given a dose of codeine. No repor ts of any bleeding so far. At the bedside the patient was taking her own Luden's lozenges and a loll ipop lozenge which she said helps her. VITAL SIGNS: Temperature is 98.2, blood pressure is 143/88, pulse 113, respirations 21, 98 on O2 sat uration. LABORATORY DATA: WBC 13.1, H and H are 9.0 and 24.5, platelets of 67, her manual is 86, this is impr oving. Sodium 146, K 3.0, BUN 60, creatinine is 1.2. This is improving her renal functions. Magnes ium 1.3. Her total bilirubin is 0.6, AST 12, ALT 25, alk phos is 65. The patient received magnesium supplement. PHYSICAL EXAMINATION: HEENT: Sclerae is anicteric. NECK: Supple. CARDIAC: S1, S2. LUNGS: Decreased breath sounds, but good air entry, no rales or wheeze. ABDOMEN: With bowel sounds, softly distended. She does have some tenderness, but no rebound or guar ding. EXTREMITIES: Positive bilateral edema. NEUROLOGIC: Awake, alert, and oriented. ASSESSMENT: Improving acute renal injury. She has metastatic colon cancer with metastasis to the purvi ne, urinary tract infection with positive Escherichia coli, electrolyte imbalance, anemia with thromb ocytopenia. This patient has a history of low anterior resection, status post radiation chemo, neutropenia, sepsis and enteritis, likely secondary to chemo. PLAN: The patient is now on Sandostatin q. 8. I will give her a dose of codeine again today. She i s on pain medication, on IV antibiotics as per ID. She is on acyclovir, micafungin. Continue PPI an d Carafate. We will continue to follow closely. The patient was seen and case discussed with Dr. Ra del rosario. Yoana IQBAL cc: [id number] TT: 10/22/2016 15:57:59 Confirmation # [id number] Dictation # [id number] mn
--- NOTE | 2016-10-22 17:15 | CP.PCM.PN ---
Subjective - Date & Time of Evaluation Date of Evaluation: 10/22/16 Time of Evaluation: 10:50 - Subjective Subjective: Still hacing difficulty swallowing but slowly feeling better, afebrile overnight. Objective - Vital Signs/Intake and Output Vital Signs (last 24 hours): Temp Pulse Resp BP Pulse Ox 98.2 F 113 H 21 143/88 98 10/22/16 08:31 10/22/16 08:31 10/22/16 08:31 10/22/16 08:31 10/22/16 08:31 Intake and Output: 10/22/16 10/22/16 06:59 18:59 Intake Total 120 Output Total 1000 Balance -880 - Medications Medications: Current Medications Benzocaine (Orajel Pm Maximum Strength) 0 gm MT QID PRN PRN Reason: Pain, moderate (4-7) Last Admin: 10/18/16 05:27 Dose: 1 dose Bismuth Subsalicylate (Pepto-Bismol) 262 mg PO BID [facility] Last Admin: 10/21/16 17:32 Dose: Not Given Collagenase (Santyl) 1 gm TOP BID [facility] Last Admin: 10/21/16 17:32 Dose: 1 applic Al Hydrox/Mg Hydrox/Simethicone 30 ml/Diphenhydramine HCl 75 mg/Lidocaine 30 ml 0 ml PO Q2H PRN PRN Reason: Mouth/Throat Pain Last Admin: 10/20/16 18:36 Dose: 30 ml Diphenhydramine HCl (Benadryl) 25 mg IVP Q4H PRN PRN Reason: Allergy symptoms Last Admin: 10/22/16 04:00 Dose: 25 mg Home Med (Home Med) 1 unit PO Q12H PRN PRN Reason: Inflammation Last Admin: 10/18/16 11:03 Dose: 1 unit Micafungin Sodium 50 mg/ (Sodium Chloride) 100 mls @ 100 mls/hr IV DAILY [facility] PRN Reason: Protocol Stop: 10/24/16 10:01 Last Admin: 10/21/16 09:17 Dose: 100 mls/hr Acyclovir 370 mg/ Sodium (Chloride) 100 mls @ 100 mls/hr IV DAILY [facility] PRN Reason: Protocol Last Admin: 10/21/16 09:17 Dose: 100 mls/hr Multivitamins/Vitamin C 10 ml/ (Amino Acids) 2,010 mls @ 83 mls/hr IV .Q24H [facility] Stop: 10/22/16 17:59 Last Admin: 10/21/16 17:28 Dose: 83 mls/hr Fat Emulsion Intravenous (Intralipid 20%) 250 mls @ 21 mls/hr IV DAILY@1800 [facility] Stop: 10/22/16 17:59 Last Admin: 10/21/16 17:28 Dose: 21 mls/hr Metoprolol Tartrate (Lopressor) 25 mg PO BID [facility] Last Admin: 10/21/16 17:29 Dose: 25 mg Metoprolol Tartrate (Lopressor) 5 mg IVP Q6H PRN PRN Reason: Sustained HR > 130 Morphine Sulfate (Morphine) 1 mg IVP Q3 PRN PRN Reason: Pain, moderate (4-7) Last Admin: 10/22/16 04:00 Dose: 1 mg Multi-Ingredient Ointment (Hydrophor Oint) 0 gm TOP Q6H [facility] Last Admin: 10/22/16 02:16 Dose: Not Given Octreotide Acetate (Sandostatin) 100 mcg SC Q8 [facility] Last Admin: 10/22/16 05:39 Dose: 100 mcg Ondansetron HCl (Zofran Inj) 4 mg IVP Q6 [facility] Last Admin: 10/22/16 05:39 Dose: 4 mg Pantoprazole Sodium (Protonix Inj) 40 mg IVP DAILY [facility] Last Admin: 10/21/16 09:18 Dose: 40 mg Petrolatum (Desitin Maximum Strength Topical 40% Oint) 1 gm TOP Q4H PRN PRN Reason: Rash Sucralfate (Carafate Oral Susp) 1 gm PO BID [facility] Last Admin: 10/21/16 17:32 Dose: 1 gm Throat Lozenges (Cepastat) 1 francis MT Q2H PRN PRN Reason: Sore Throat - Labs Labs: 10/22/16 06:15 10/22/16 06:15 PT 13.9 Seconds (9.9-11.8) H 10/18/16 06:00 INR 1.29 (0.93-1.08) H 10/18/16 06:00 APTT 39.9 Seconds (23.7-30.8) H 10/09/16 12:01 - Constitutional Appears: Non-toxic, No Acute Distress - Head Exam Head Exam: NORMAL INSPECTION - ENT Exam ENT Exam: Mucous Membranes Moist - Neck Exam Neck Exam: absent: Lymphadenopathy, Meningismus - Respiratory Exam Respiratory Exam: Decreased Breath Sounds - Cardiovascular Exam Cardiovascular Exam: +S1, +S2 - GI/Abdominal Exam GI & Abdominal Exam: Soft. absent: Tenderness Assessment and Plan - Assessment and Plan (Free Text) Plan: Assessment S/P severe sepsis with acute renal failure due to acute enteritis in this patient with acute neutropenia (now resolved) from chemotherapy for her stage 4 colon cancer Partial small bowel obstruction Acute stomatitis and mucositis, slowly improving Neutropenia probably from chemotherapy, resolved HTN 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 S/P colectomy in 2014 history of UTI GERD anxiety Plan continue Mycamine and Acyclovir (renally-adjusted) for her stomatitis and mucositis Reviewed repeat CT scan of the abdomen and pelvis which shows the partial small bowel obstruction Will continue to monitor clinically Overall prognosis is poor
[2016-10-22] MEDS: Fat Emulsion 20% IV 250 ML IV SCH (17:30)
--- NOTE | 2016-10-22 19:47 | PN ---
DATE: 10/22/2016 ADDENDUM: This is an addendum to the GI progress report dictated by Yoana Osei APN. Earlier this morning the patient did not have any diarrhea. Subsequently, the patient did have large diarrhea. The patient was then placed back on codeine. The patient is also on octreotide 100 mcg q .8 hourly. The patient in addition has been also on Pepto-Bismol to control the diarrhea. PHYSICAL EXAMINATION: Abdomen has mild tenderness present. The patient is on liquid diet. Continue the antibiotics as per ID. Thank you very much for allowing us to participate in the care of the patient. Tong Null MD cc: [id number] TT: 10/22/2016 19:46:49 Confirmation # [id number] Dictation # [id number] chastity
[2016-10-22] MEDS: Zinc Oxide Topical 40% Oint (Desitin) TOP PRN (20:40)
[2016-10-22] MEDS: Menthol/Phenol (Cepastat) Lozenge MT PRN (22:01)
--- NOTE | 2016-10-23 00:39 | PN ---
DATE: 10/22/2016 LOCATION: The patient is in room 364, bed 2. SUBJECTIVE: The patient is seen sitting up in bed. She is awake, alert, still having diarrhea, thou gh the amount and the intensity has abated. Still having abdominal cramps in the lower abdomen on th e right side. Mouth sores are still an issue. She still has burning on swallowing and she is on a c oncoction of medicines for the same. PHYSICAL EXAMINATION: GENERAL: The patient is seen in bed. HEENT: Head is normocephalic, atraumatic. Temporal muscle wasting is noted. Examination of the adrienne pharynx reveals grade II mucositis. Exam of the tongue reveals it to be moist. No ulcerations are n oted. Examination does not reveal any fungal infections VITAL SIGNS: Today reveal a blood pressure 143/88, heart rate is 113, respirations 21, T-max is 98.4 . NECK: Supple. There is no adenopathy. No jugular venous distention is noted. LUNGS: Clear to percussion and auscultation. HEART: Reveals PMI to be in the 5th intercostal space inside the midclavicular line. S1 and S2 are normal. No gallop or murmur is heard. EXTREMITIES: Has 1+ pitting edema of the lower extremities and patient has edema of the upper extrem ities, especially left greater than the right. The patient has an indwelling Salazar catheter. Sacral decubitus appears to be slightly improved. LABORATORY DATA: Reveals a white count of 13, hemoglobin 9, hematocrit 24.5, platelet count 67,000. Sodium is 146, K is 3, chloride 121, CO2 is 19, BUN is 6, creatinine 1.2, glucose is 120, calcium is 6.9, phosphorus 3.1, magnesium is 1.3, albumin 1.7, corrected calcium is 8.5. CURRENT MEDICATIONS: Reviewed and include acyclovir, Benadryl, sucralfate, Lopressor, mag sulfate, m icafungin, Protonix, Zofran, and collagenase. ASSESSMENT NOTES AND PLAN: The patient is slowly recovering from a catherine sepsis. Acute kidney injur y appears to be resolving. Hyponatremia appears to be resolving. Severe hypokalemia, hypomagnesemia , hypoalbuminemia, E. Coli urinary tract infection, diarrhea related to enteritis, post-chemotherapy, metastatic stage IV carcinoma of the colon with anemia. PLAN: The patient is on IV TPN. The patient also getting potassium rider x 1, increase the potassiu m in the hyperalimentation, magnesium rider x 1. The patient will continue to be monitored. I told h er, at this time, the swish and swallow to be taken every 4 hours and to take the medicines at least 20 minutes before she tries to take anything orally, such as Sustacal or Ensure Clear. GI is followi ng the patient very carefully. She is on medications for the diarrhea at this time. Will try to be conservative without pushing any envelope at this point so that the patient can recover her own, jeanne cially with TPN being provided. Routine post exam instructions have been given to the patient. Kedar Hendricks MD cc: [id number] TT: 10/23/2016 00:39:02 Confirmation # [id number] Dictation # [id number] mark
[2016-10-23] MEDS: Morphine 2 mg/ml ISec IVP PRN ×4 (02:20→23:10)
[2016-10-23] MEDS: Petrolatum-Mineral Oil Oint (100gm) TOP SCH ×4 (02:30→22:38)
--- NOTE | 2016-10-23 03:58 | CP.PCM.PN ---
Subjective - Date & Time of Evaluation Date of Evaluation: 10/23/16 Time of Evaluation: 03:54 - Subjective Subjective: Seen because nurse calls and tells that Since 8 pm , she had 6 episode of diarrhoea. Patient was seen at bedside. Has had loose bowel movement x 6. No abdominal pain, no nausea, no vomiting. ROS:Neg except as mentioned above. Medical record was reviewed. This 61 year old woman was admitted Has PMH of Stage IV colon cancer ,cuada equina syndrome,anemia. Objective - Vital Signs/Intake and Output Vital Signs (last 24 hours): Temp Pulse Resp BP Pulse Ox 98.2 F 113 H 21 143/88 98 10/22/16 08:31 10/22/16 08:31 10/22/16 08:31 10/22/16 08:31 10/22/16 08:31 Intake and Output: 10/22/16 10/23/16 18:59 06:59 Intake Total 480 240 Output Total 1100 250 Balance -620 -10 - Medications Medications: Current Medications Benzocaine (Orajel Pm Maximum Strength) 0 gm MT QID PRN PRN Reason: Pain, moderate (4-7) Last Admin: 10/18/16 05:27 Dose: 1 dose Bismuth Subsalicylate (Pepto-Bismol) 262 mg PO BID [facility] Last Admin: 10/22/16 17:30 Dose: Not Given Collagenase (Santyl) 1 gm TOP BID [facility] Last Admin: 10/22/16 17:30 Dose: 1 applic Al Hydrox/Mg Hydrox/Simethicone 30 ml/Diphenhydramine HCl 75 mg/Lidocaine 30 ml 0 ml PO Q2H PRN PRN Reason: Mouth/Throat Pain Last Admin: 10/20/16 18:36 Dose: 30 ml Diphenhydramine HCl (Benadryl) 25 mg IVP Q4H PRN PRN Reason: Allergy symptoms Last Admin: 10/22/16 04:00 Dose: 25 mg Home Med (Home Med) 1 unit PO Q12H PRN PRN Reason: Inflammation Last Admin: 10/18/16 11:03 Dose: 1 unit Micafungin Sodium 50 mg/ (Sodium Chloride) 100 mls @ 100 mls/hr IV DAILY [facility] PRN Reason: Protocol Stop: 10/24/16 10:01 Last Admin: 10/22/16 09:46 Dose: 100 mls/hr Acyclovir 370 mg/ Sodium (Chloride) 100 mls @ 100 mls/hr IV DAILY [facility] PRN Reason: Protocol Last Admin: 10/22/16 09:54 Dose: 100 mls/hr Fat Emulsion Intravenous (Intralipid 20%) 250 mls @ 21 mls/hr IV DAILY@1800 [facility] Last Admin: 10/22/16 17:30 Dose: 21 mls/hr Multivitamins/Vitamin C 10 ml/Chromium/Copper/Manganese/Zinc 1 ml/ Amino Acids/ Electrolytes/Dextrose 2,011 mls @ 83.792 mls/hr IV .Q24H [facility] Last Admin: 10/22/16 17:30 Dose: 83.792 mls/hr Metoprolol Tartrate (Lopressor) 25 mg PO BID [facility] Last Admin: 10/22/16 17:30 Dose: 25 mg Metoprolol Tartrate (Lopressor) 5 mg IVP Q6H PRN PRN Reason: Sustained HR > 130 Morphine Sulfate (Morphine) 1 mg IVP Q3H PRN PRN Reason: Pain, severe (8-10) Last Admin: 10/23/16 02:20 Dose: 1 mg Multi-Ingredient Ointment (Hydrophor Oint) 0 gm TOP Q6H [facility] Last Admin: 10/22/16 20:40 Dose: 1 applic Octreotide Acetate (Sandostatin) 100 mcg SC Q8 [facility] Last Admin: 10/22/16 22:02 Dose: 100 mcg Ondansetron HCl (Zofran Inj) 4 mg IVP Q6 [facility] Last Admin: 10/22/16 17:31 Dose: 4 mg Pantoprazole Sodium (Protonix Inj) 40 mg IVP DAILY [facility] Last Admin: 10/22/16 09:47 Dose: 40 mg Petrolatum (Desitin Maximum Strength Topical 40% Oint) 1 gm TOP Q4H PRN PRN Reason: Rash Last Admin: 10/22/16 20:40 Dose: 1 applic Sucralfate (Carafate Oral Susp) 1 gm PO BID [facility] Last Admin: 10/22/16 17:29 Dose: 1 gm Throat Lozenges (Cepastat) 1 francis MT Q2H PRN PRN Reason: Sore Throat Last Admin: 10/22/16 22:01 Dose: 1 francis - Labs Labs: 10/22/16 06:15 10/22/16 06:15 PT 13.9 Seconds (9.9-11.8) H 10/18/16 06:00 INR 1.29 (0.93-1.08) H 10/18/16 06:00 APTT 39.9 Seconds (23.7-30.8) H 10/09/16 12:01 - Constitutional Appears: Well, No Acute Distress - Head Exam Head Exam: ATRAUMATIC, NORMAL INSPECTION, NORMOCEPHALIC - Eye Exam Eye Exam: Normal appearance - ENT Exam ENT Exam: Mucous Membranes Dry - Neck Exam Neck Exam: Normal Inspection - Respiratory Exam Respiratory Exam: NORMAL BREATHING PATTERN - Cardiovascular Exam Cardiovascular Exam: absent: JVD - GI/Abdominal Exam GI & Abdominal Exam: Normal Bowel Sounds. absent: Distended, Tenderness - Rectal Exam Rectal Exam: Deferred - Extremities Exam Extremities Exam: Normal Inspection - Back Exam Back Exam: NORMAL INSPECTION - Neurological Exam Neurological Exam: Alert, Oriented x3 - Psychiatric Exam Psychiatric exam: Normal Affect, Normal Mood - Skin Skin Exam: Normal Color Assessment and Plan - Assessment and Plan (Free Text) Assessment: Chronic diarrhoea. Stage IV colon cancer. Cauda Equina syndrome. Anemia. Plan: Codeine as ordered. Continue present management.
[2016-10-23 08:48] LABS: ALB/GLOB RATIO 0.7 (1.1-1.8); ALBUMIN 1.7 g/dL (3.0-4.8); CALCIUM 7.4 mg/dL (8.4-10.5); MAGNESIUM 1.6 mg/dL (1.7-2.2)
[2016-10-23 09:22] LABS: BASO # 0.01 K/mm3 (0.0-2.0); BASO % 0.1 % (0.0-3.0); EOS % 0.1 % (1.5-5.0); GRAN # 6.67 (1.4-6.5); GRAN % 80.8 % (50.0-68.0); HEMOGLOBIN 8.6 gm/dL (12.0-16.0); LYMPH # 0.6 (1.2-3.4); LYMPH % 6.9 % (22.0-35.0); MEAN CELL VOLUME 90.7 fL (80.0-105.0); MEAN CORPUSCULAR HEMOGLOBIN 29.8 pg (25.0-35.0); MEAN CORPUSCULAR HGB CONC 32.8 g/dl (31.0-37.0); MONO % 12.1 % (1.0-6.0); PLATELET COUNT 88 10^3/uL (120.0-450.0); RBC 2.89 10^6/uL (3.5-6.1); RED CELL DISTRIBUTION WIDTH 20.2 % (11.5-14.5); WHITE BLOOD COUNT 8.3 10^3/ul (4.5-11.0)
[2016-10-23] MEDS: Sucralfate 1 gm/10 ml Oral Susp UD PO SCH ×2 (09:53→17:52)
[2016-10-23] MEDS: Collagenase 250 Units/gm Ointment(30 gm) TOP SCH ×2 (09:55→17:53)
[2016-10-23] MEDS: Bismuth Subsalicylate 262 mg/15 ml Sus (240 ml) PO SCH ×2 (09:55→17:53)
[2016-10-23 11:23] LABS: PLATELET COUNT MANUAL 110 K/mm3 (120-450)
--- NOTE | 2016-10-23 11:33 | PN ---
DATE: 10/23/2016 Seen and examined at the bedside earlier this morning, reported to have at least 6 loose bowel moveme nts last night. She did receive a dose of codeine around 3:00 a.m. and reported to have 1 small loos e bowel movement this morning. The patient is complaining of lower abdominal discomfort. No distres s though. Denies any nausea, vomiting. She still has some oral soreness, but is much improved lucius red to before. The patient is able to communicate clearly now and able to tolerate a bit more of her full liquids. VITAL SIGNS: Temperature is 97.5, blood pressure is 135/85, pulse rate 106, respirations 20, 98 nasa l cannula. LABORATORY DATA: WBC is 8.3, H and H is 8.6 and 26.2, platelets of 88, manual is pending. This is i mproving. Chem: Sodium 143, K is 3.4, BUN is 60, creatinine is 1.2. Her total bilirubin 0.6, AST 1 2, ALT 27, alk phos is 69. PHYSICAL EXAMINATION: HEENT: Sclerae are anicteric. NECK: Supple. CARDIAC: S1, S2. LUNGS: With decreased breath sounds, but good air entry, no rales or wheeze. ABDOMEN: With bowel sounds, soft, does have some abdominal tenderness, but no rebound or guarding. It is diffuse, but mostly on mid lower abdomen. ASSESSMENT: Improving acute renal injury, metastatic colon cancer with metastasis to the bone. The patient also has urinary tract infection, positive Escherichia coli; anemia with improving thrombocyt openia, status post neutropenia with sepsis and enteritis. History of low anterior resection. Metas tatic colon cancer with metastasis to the bones, status post radiation and chemotherapy. The patient remains with diarrhea. PLAN: The patient remains on Sandostatin q. 8. We will give her another dose of codeine again today around 12:00 noon and monitor her output. The patient is on pain medication, on IV antibiotics. Co ntinue PPI and Carafate and on full liquid. We are concerned regarding bowel movements. The patient does have an area of stricture and needs to find a balance between not causing hard stool, but nemo nuing preventing constipation. We will continue to follow closely. The patient was seen and case di scussed with Dr. Null. We will discuss with nursing staff also. Yoana IQBAL cc: [id number] TT: 10/23/2016 11:33:06 Confirmation # [id number] Dictation # [id number] tn
--- NOTE | 2016-10-23 13:36 | PN ---
DATE: 10/23/2016 SUBJECTIVE: The patient is currently seen lying supine in bed on 3R. She is complaining of some mil d abdominal discomfort. She remains on hyperalimentation. She is unable to eat because of resolving stomatitis. MEDICATIONS: Medication list reviewed. The patient is currently on acyclovir, Benadryl, Carafate, C epastat, Desitin Ointment, triamcinolone paste, hyperalimentation, Hydrophor Ointment, Lopressor, keira afungin, morphine, Orajel, Pepto-Bismol, Protonix, Sandostatin, Santyl, and Zofran p.r.n. OBJECTIVE: INTAKE AND OUTPUT: Intake 3416, output 1350. VITAL SIGNS: Blood pressure 135/85, temperature 97.5, respiratory rate 20 with a pulse of 106. HEENT: Normocephalic, atraumatic. Conjunctivae are pale. Sclerae are nonicteric. Posterior pharyn x resolving stomatitis. NECK: Supple, no neck vein distention. CHEST: Clear to auscultation and percussion. CARDIOVASCULAR: S1, S2 normal, no murmurs, rubs, or gallops. ABDOMEN: Soft. Bowel sounds normal. Diffuse mild tenderness on palpation of all 4 quadrants. No r ebound, no guarding. EXTREMITIES: Show trace to 1+ pitting ankle edema and puffiness of her upper extremity bilaterally. LABORATORY DATA AND IMAGING: CBC: White blood cell count 8.3, hemoglobin 8.6, platelet count is 110 ,000. Chemistries: Sodium 143, potassium 3.4, chloride 118 with a CO2 of 20, BUN is 60 improved, wi th a creatinine of 1.2 improved. Glucose is 136, calcium 7.4 with an albumin level of 1.7 corrects t o normal. Phosphorus 3.1 normal, magnesium 1.6 improved. Albumin again is 1.7. Microbiology: C. d ifficile on multiple checks is negative. ASSESSMENT: 1. Acute renal failure with prerenal azotemia, improving. Her baseline creatinine is less than 1 wi th a baseline BUN of less than 20. She is currently at a BUN of 60 with a creatinine of 1.2. The kim valentin continues to have mild diarrhea. She does remain on hyperalimentation. 2. Mild hypernatremia, resolved. 3. 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 The patient is being followed by oncology. Her long-term prognosis remains poor. 4. History of diarrhea. The patient is currently receiving Sandostatin to help control the diarrhea . Stools have been negative for C. diff. GI evaluation continues. She is felt to have enteritis. 5. Status post E. coli urinary tract infection. She completed antibiotic therapy. 6. History of anemia and thrombocytopenia, likely secondary to metastatic colon cancer. 7. Mild hypokalemia. The patient will continue receiving potassium with her hyperalimentation, but I will give her K riders. PLAN: 1. Supplement with K riders p.r.n. 2. Continue to monitor accurate I's and O's. The patient has a Salazar catheter in place so this shou ld not be difficult. 3. Continue empiric course of antifungal and antiviral therapy as per ID. Kyle Brooks MD cc: [id number] TT: 10/23/2016 13:36:11 Confirmation # [id number] Dictation # [id number] cn
[2016-10-23] MEDS: Fat Emulsion 20% IV 250 ML IV SCH (18:28)
--- NOTE | 2016-10-23 20:09 | PN ---
DATE: 10/23/2016 ADDENDUM This is an addendum to the GI progress report dictated by Yoana Osei APN. The patient did have episodes of diarrhea last night and had received a dose of codeine. The patient is also on octreotide and also taking Pepto-Bismol. The patient in addition has been decreasing yordy n medication, morphine also. The concern is titrating the dose of these opioids, which can cause con stipation in the setting of the partial colonic obstruction. We need to use this cautiously. However, I did discuss with nursing staff. They describe the stool as like a watery large volume. I n that situation, it is reasonable to use the codeine at 30 mg at least q. p.r.n. basis to slow down the diarrhea. Lomotil was not found to be effective before. The patient's platelet count has been s lowly improving to and patient's renal function also improved. BUN is 60 and creatinine is 1.2 . We will continue to closely follow up her. We will continue to be cautious in using codeine as ne eded. Tong Null MD cc: [id number] TT: 10/23/2016 20:08:32 Confirmation # [id number] Dictation # [id number] karla
--- NOTE | 2016-10-23 20:49 | PN ---
DATE: 10/23/2016 This is the patient's hospital visit on the medical floor. For Dr. Hendricks. SUBJECTIVE: The patient is a 61-year-old female status post treatment for neutropenic sepsis with se kofi neutropenia and thrombocytopenia, now modestly improved with the patient known to have a severe stricture in the colorectal area for which he continues on a liquid diet with the patient now sitting up in bed, mother at the bedside, reporting that her mouth pain and burning sensation is her most un comfortable feeling despite having decubitus ulcer of her backside also. With this, she is resting c omfortably now with her electrolytes being monitored and her labs being monitored. PHYSICAL EXAMINATION: VITAL SIGNS: Temperature 97.8, pulse 103, respirations 19, blood pressure 142/81 and pulse ox 98%. HEENT: Unremarkable, no change. The oral mucosa is noted except for minimal erythema. NECK: Supple. HEART: Tachy rate, regular rhythm. LUNGS: Clear. ABDOMEN: Soft, nontender. EXTREMITIES: +1 edema of the left greater than right upper extremity with indwelling Salazar catheters . SKIN: Warm, dry except for sacral decubitus. NEUROLOGIC: Awake, alert. LABORATORY DATA: The patient's labs were done. White blood cell count of 8.3, hemoglobin of 8.6, he matocrit 26.6, platelet count of 88,000 with a manual of 110,000 with a chem metabolic panel showing a potassium of 3.4 with a BUN of 60, creatinine of 1.2, calcium 7.4, magnesium 1.6, albumin 1.7, tota l protein 4.3. ASSESSMENT: Neutropenic sepsis, severe thrombocytopenia with neutropenia, anemia, status post transf usion, metastatic stage IV cancer of the colon, mucositis, decubitus ulcer, acute renal failure, impr oving, partial small-bowel obstruction, cauda equina syndrome with Salazar catheter, gastroesophageal r eflux disease, anxiety. PLAN: The patient is to continue the present medical regimen with the patient's labs to be monitored and the patient be monitored clinically with hyperal continuing, narcotic analgesics for her pain, M ycamine continues. We will also give saline at the bedside for mouth rinses with Sandostatin for her loose stool, with Zovirax also continuing as per Dr. Avalos, infectious disease. Liquid diet continu es also at this point with consideration for transfusion, should it be indicated. We will monitor cl inically and with labs. Prognosis for this patient is guarded. Will also recommend for the patient to participate in physiotherapy and to be rotated so that she is not lying on her backside with rotat ion every 3-4 hours for her decubitus ulcer. Tomasz Winters MD cc: [phone] TT: 10/23/2016 20:49:01 Confirmation # [id number] Dictation # [id number] rn
[2016-10-23] MEDS: Aluminum Hydroxide/Magnesium 30 ML, DiphenhydrAMINE 75 MG, Lidocaine 2% Viscous 30 ML PO PRN (22:39)
[2016-10-23] MEDS: Zinc Oxide Topical 40% Oint (Desitin) TOP PRN (22:39)
[2016-10-24] MEDS: Morphine 2 mg/ml ISec IVP PRN ×3 (03:03→22:41)
--- NOTE | 2016-10-24 04:18 | CP.PCM.PN ---
Subjective - Date & Time of Evaluation Date of Evaluation: 10/24/16 Time of Evaluation: 04:17 - Subjective Subjective: Patient was seen at bedside . Complained of lower abdominal, lower back pain. Received 1 mg morphine IV as per order at about 3:30 AM. Was still having pain at about 4:05 AM. Pain was sharp,no radiation. No other complaints.No diarrhea, no nausea or vomiting. ROS : Neg except as mentioned above. Medical record was reviewed. This 61 year old white womaon was admitted with weakness, non bloody diarrhoea following receiving Neulasta. Has PMH of Stage IV colon cancer, cauda equina syndrome, S/P radiation therapy to sacral area, constipation , retention of urine. Objective - Vital Signs/Intake and Output Vital Signs (last 24 hours): Temp Pulse Resp BP Pulse Ox 97.8 F 103 H 19 142/81 98 10/23/16 16:00 10/23/16 17:53 10/23/16 16:00 10/23/16 17:53 10/23/16 16:00 Intake and Output: 10/23/16 10/24/16 18:59 06:59 Intake Total 600 120 Output Total 1025 0 Balance -425 120 - Medications Medications: Current Medications Benzocaine (Orajel Pm Maximum Strength) 0 gm MT QID PRN PRN Reason: Pain, moderate (4-7) Last Admin: 10/18/16 05:27 Dose: 1 dose Bismuth Subsalicylate (Pepto-Bismol) 262 mg PO BID [facility] Last Admin: 10/23/16 17:53 Dose: Not Given Collagenase (Santyl) 1 gm TOP BID [facility] Last Admin: 10/23/16 17:53 Dose: 1 applic Al Hydrox/Mg Hydrox/Simethicone 30 ml/Diphenhydramine HCl 75 mg/Lidocaine 30 ml 0 ml PO Q2H PRN PRN Reason: Mouth/Throat Pain Last Admin: 10/23/16 22:39 Dose: 10 ml Diphenhydramine HCl (Benadryl) 25 mg IVP Q4H PRN PRN Reason: Allergy symptoms Last Admin: 10/22/16 04:00 Dose: 25 mg Home Med (Home Med) 1 unit PO Q12H PRN PRN Reason: Inflammation Last Admin: 10/18/16 11:03 Dose: 1 unit Micafungin Sodium 50 mg/ (Sodium Chloride) 100 mls @ 100 mls/hr IV DAILY [facility] PRN Reason: Protocol Stop: 10/24/16 10:01 Last Admin: 10/23/16 09:52 Dose: 100 mls/hr Acyclovir 370 mg/ Sodium (Chloride) 100 mls @ 100 mls/hr IV DAILY [facility] PRN Reason: Protocol Last Admin: 10/23/16 10:58 Dose: 100 mls/hr Fat Emulsion Intravenous (Intralipid 20%) 250 mls @ 21 mls/hr IV DAILY@1800 [facility] Last Admin: 10/23/16 18:28 Dose: 21 mls/hr Multivitamins/Vitamin C 10 ml/Chromium/Copper/Manganese/Zinc 1 ml/ Amino Acids/ Electrolytes/Dextrose 2,011 mls @ 83.792 mls/hr IV .Q24H [facility] Last Admin: 10/23/16 18:27 Dose: 83.792 mls/hr Metoprolol Tartrate (Lopressor) 25 mg PO BID [facility] Last Admin: 10/23/16 17:53 Dose: 25 mg Metoprolol Tartrate (Lopressor) 5 mg IVP Q6H PRN PRN Reason: Sustained HR > 130 Morphine Sulfate (Morphine) 1 mg IVP Q3H PRN PRN Reason: Pain, severe (8-10) Last Admin: 10/24/16 03:03 Dose: 1 mg Multi-Ingredient Ointment (Hydrophor Oint) 0 gm TOP Q6H [facility] Last Admin: 10/23/16 22:38 Dose: 1 applic Octreotide Acetate (Sandostatin) 100 mcg SC Q8 [facility] Last Admin: 10/23/16 22:37 Dose: 100 mcg Ondansetron HCl (Zofran Inj) 4 mg IVP Q6 [facility] Last Admin: 10/24/16 00:38 Dose: 4 mg Pantoprazole Sodium (Protonix Inj) 40 mg IVP DAILY [facility] Last Admin: 10/23/16 09:53 Dose: 40 mg Petrolatum (Desitin Maximum Strength Topical 40% Oint) 1 gm TOP Q4H PRN PRN Reason: Rash Last Admin: 10/23/16 22:39 Dose: 1 applic Sucralfate (Carafate Oral Susp) 1 gm PO BID [facility] Last Admin: 06/13/17 17:52 Dose: 1 gm Throat Lozenges (Cepastat) 1 francis MT Q2H PRN PRN Reason: Sore Throat Last Admin: 10/22/16 22:01 Dose: 1 francis - Labs Labs: 10/23/16 08:15 10/23/16 08:15 PT 13.9 Seconds (9.9-11.8) H 10/18/16 06:00 INR 1.29 (0.93-1.08) H 10/18/16 06:00 APTT 39.9 Seconds (23.7-30.8) H 10/09/16 12:01 - Constitutional Appears: Well, No Acute Distress - Head Exam Head Exam: ATRAUMATIC, NORMAL INSPECTION, NORMOCEPHALIC - Eye Exam Eye Exam: Normal appearance - ENT Exam ENT Exam: Normal External Ear Exam - Neck Exam Neck Exam: Normal Inspection - Respiratory Exam Respiratory Exam: NORMAL BREATHING PATTERN - Cardiovascular Exam Cardiovascular Exam: absent: JVD - GI/Abdominal Exam GI & Abdominal Exam: Tenderness (Mild lower abdominal.), Hypoactive Bowel Sounds - Rectal Exam Rectal Exam: Deferred - Extremities Exam Extremities Exam: Normal Inspection - Back Exam Back Exam: NORMAL INSPECTION - Neurological Exam Neurological Exam: Alert, Oriented x3 - Psychiatric Exam Psychiatric exam: Normal Affect, Normal Mood - Skin Skin Exam: Normal Color Assessment and Plan - Assessment and Plan (Free Text) Assessment: Lower abdominal pain. Low back pain. Stage IV colon cancer. Cauda Equina syndrome. Plan: Toradol 15 mg IV now. Discussed with . Will change morphine to 2 mg IV Q3H prn. Continue present management.
[2016-10-24 06:41] LABS: INR 1.29 (0.93-1.08); PROTHROMBIN TIME 13.9 Seconds (9.9-11.8)
[2016-10-24 06:55] LABS: ALB/GLOB RATIO 0.7 (1.1-1.8); ALBUMIN 1.8 g/dL (3.0-4.8); CALCIUM 7.4 mg/dL (8.4-10.5); MAGNESIUM 1.6 mg/dL (1.7-2.2)
[2016-10-24 07:57] LABS: HEMOGLOBIN 8.6 gm/dL (12.0-16.0); MEAN CELL VOLUME 91.1 fL (80.0-105.0); MEAN CORPUSCULAR HEMOGLOBIN 30.6 pg (25.0-35.0); MEAN CORPUSCULAR HGB CONC 33.6 g/dl (31.0-37.0); RBC 2.81 10^6/uL (3.5-6.1); RED CELL DISTRIBUTION WIDTH 20.6 % (11.5-14.5); WHITE BLOOD COUNT 9.6 10^3/ul (4.5-11.0)
[2016-10-24] MEDS: Collagenase 250 Units/gm Ointment(30 gm) TOP SCH ×2 (10:24→21:27)
[2016-10-24] MEDS: Petrolatum-Mineral Oil Oint (100gm) TOP SCH ×4 (10:24→22:39)
[2016-10-24] MEDS: Sucralfate 1 gm/10 ml Oral Susp UD PO SCH ×2 (11:05→18:08)
[2016-10-24] MEDS: Bismuth Subsalicylate 262 mg/15 ml Sus (240 ml) PO SCH ×2 (11:05→18:04)
--- NOTE | 2016-10-24 11:47 | PN ---
DATE: 10/24/2016 SUBJECTIVE: The patient is seen lying in bed. She just had a large bowel movement. Diarrhea has so mewhat decreased. Frequency has decreased. She denies any pain. She has excoriation around her eulalia s. PHYSICAL EXAMINATION: GENERAL: Elderly lady lying in bed. VITAL SIGNS: Blood pressure 121/75, heart rate 106, respiratory rate 20, temperature 98.3. HEENT: Normocephalic, atraumatic. NECK: Supple, no JVD. LUNGS: Bilateral equal air entry, no rales. CARDIAC: S1, S2, regular rate and rhythm, no murmur, no rub. ABDOMEN: Soft, distended, tenderness in the lower abdomen, bowel sounds present. EXTREMITIES: 2+ pitting edema of the lower extremities. INTAKE AND OUTPUT: 3416/1350. LABORATORY DATA: WBC 9.6, hemoglobin 8.6, hematocrit 25.6, platelets 106. Sodium 143, potassium 4.0 , chloride 117, CO2 19, BUN 64, creatinine 1.2, glucose 130, calcium 7.4, albumin 1.8, corrected calc ium is 8.9, phosphorus 4.5, magnesium 1.6. CURRENT MEDICATIONS: Acyclovir, Benadryl, Carafate, Cepastat, petrolatum, hyperal, Lopressor, morphi ne, bismuth, Protonix, octreotide, collagenase, Zofran, micafungin. ASSESSMENT: 1. Metastatic colon cancer with bone metastases. 2. Resolved acute kidney injury, mild prerenal azotemia. 3. Hypernatremia, resolving. 4. Persistent diarrhea, currently on Sandostatin. 5. Status post Escherichia coli urinary tract infection. 6. Severe hypoalbuminemia. 7. Severe malnutrition. PLAN: 1. Continue hyperal. 2. Continue Sandostatin. 3. Monitor electrolytes. 4. Consider IV albumin plus Lasix. Adele Griffin MD cc: [phone] TT: 10/24/2016 11:46:33 Confirmation # [id number] Dictation # [id number] mn
--- NOTE | 2016-10-24 14:30 | PN ---
DATE: 10/24/2016 Seen and examined at the bedside. The patient reported having 1 large bowel movement last night and also as we speak, the patient is having some loose stool. No blood noted. She does get abdominal di scomfort. No nausea or vomiting. She is actually trying to take in a cup of coffee and some rice pu dding, which a sister is mashing up the rice. VITAL SIGNS: Temperature is 98.3, blood pressure 128/72, pulse is 102, respirations 20, 96 on room a ir. LABORATORY DATA: WBC is 9.6, H and H is 8.6 and 25.6, platelets are 106. PT 13.9, INR is 1.29. Sodi um 143, K 4.0, BUN 64, creatinine is 1.2, total bilirubin is 0.7, AST 12, ALT 29, alkaline phosphatas e is 79. PHYSICAL EXAMINATION: HEENT: Sclerae are anicteric. NECK: Supple. CARDIAC: S1, S2. LUNGS: Decreased breath sounds at the bases, but good air entry, no rales or wheeze. ABDOMEN: With bowel sounds, soft. She does have some tenderness in the lower abdomen. No rebound o r guarding. ASSESSMENT: Metastatic colon cancer with metastasis to the bone. The patient with improving acute r enal injury, improving thrombocytopenia. She has a urinary tract infection, positive Escherichia col i, anemia, status post neutropenia with sepsis and enteritis. The diarrhea episodes are slowly impro ving. It is still loose, but the frequency seems to be less. She is on Sandostatin and her last dos e of codeine was yesterday at 12:00 noon. PLAN: We will give her another dose of codeine today. Continue pain management. She is on PPI and Carafate and on full liquid diet. The patient is also on PPN. Will continue to follow closely. The patient was seen and case discussed with Dr. Null. Yoana Osei RASHEED cc: [id number] TT: 10/24/2016 14:30:15 Confirmation # [id number] Dictation # [id number] karla
[2016-10-24] MEDS: Fat Emulsion 20% IV 250 ML IV SCH (17:53)
--- NOTE | 2016-10-24 20:29 | PN ---
DATE: 10/24/2016 ADDENDUM: This is an addendum to the GI progress report dictated by Yoana Osei APN. The patient was seen and evaluated earlier. The patient did have some loose bowel movements in the morning and had received another dose of Codeine. No further episodes since then. He appears to be much more comfortable. Still complains of some abdominal pain. On examination abdomen is soft. There was some tenderness present on deep palpation diffusely. RECOMMENDATIONS: I consider discontinuing the Pepto-Bismol tomorrow a.m. Will continue the standard octreotide for the time being and also Codeine on a p.r.n. basis. Renal function appears to be improving. The concern is not to give too much antidiarrheal, which can cause constipation in the setting of the colonic stricture. On the other hand, we need to titrate the dose to slow down the diarrhea. Will continue to closely monitor her. Thank you very much for allowing us to participate in the care of the patient. Tong Null MD cc: [phone] TT: 10/24/2016 20:28:52 Confirmation # [id number] Dictation # [id number] chastity WALLACE
--- NOTE | 2016-10-24 21:00 | CP.PCM.PN ---
Subjective - Date & Time of Evaluation Date of Evaluation: 10/24/16 Time of Evaluation: 10:20 - Subjective Subjective: Comfortable, a little less pain in the mouth, no fevers, no diarrhea. Objective - Vital Signs/Intake and Output Vital Signs (last 24 hours): Temp Pulse Resp BP Pulse Ox 98.2 F 113 H 21 143/88 98 10/22/16 08:31 10/22/16 08:31 10/22/16 08:31 10/22/16 08:31 10/22/16 08:31 Intake and Output: 10/23/16 10/23/16 06:59 18:59 Intake Total 2936 0 Output Total 250 650 Balance 2686 -650 - Medications Medications: Current Medications Benzocaine (Orajel Pm Maximum Strength) 0 gm MT QID PRN PRN Reason: Pain, moderate (4-7) Last Admin: 10/18/16 05:27 Dose: 1 dose Bismuth Subsalicylate (Pepto-Bismol) 262 mg PO BID [facility] Last Admin: 10/22/16 17:30 Dose: Not Given Collagenase (Santyl) 1 gm TOP BID [facility] Last Admin: 10/22/16 17:30 Dose: 1 applic Al Hydrox/Mg Hydrox/Simethicone 30 ml/Diphenhydramine HCl 75 mg/Lidocaine 30 ml 0 ml PO Q2H PRN PRN Reason: Mouth/Throat Pain Last Admin: 10/20/16 18:36 Dose: 30 ml Diphenhydramine HCl (Benadryl) 25 mg IVP Q4H PRN PRN Reason: Allergy symptoms Last Admin: 10/22/16 04:00 Dose: 25 mg Home Med (Home Med) 1 unit PO Q12H PRN PRN Reason: Inflammation Last Admin: 10/18/16 11:03 Dose: 1 unit Micafungin Sodium 50 mg/ (Sodium Chloride) 100 mls @ 100 mls/hr IV DAILY [facility] PRN Reason: Protocol Stop: 10/24/16 10:01 Last Admin: 10/22/16 09:46 Dose: 100 mls/hr Acyclovir 370 mg/ Sodium (Chloride) 100 mls @ 100 mls/hr IV DAILY [facility] PRN Reason: Protocol Last Admin: 10/22/16 09:54 Dose: 100 mls/hr Fat Emulsion Intravenous (Intralipid 20%) 250 mls @ 21 mls/hr IV DAILY@1800 [facility] Last Admin: 10/22/16 17:30 Dose: 21 mls/hr Multivitamins/Vitamin C 10 ml/Chromium/Copper/Manganese/Zinc 1 ml/ Amino Acids/ Electrolytes/Dextrose 2,011 mls @ 83.792 mls/hr IV .Q24H [facility] Last Admin: 10/22/16 17:30 Dose: 83.792 mls/hr Metoprolol Tartrate (Lopressor) 25 mg PO BID [facility] Last Admin: 10/22/16 17:30 Dose: 25 mg Metoprolol Tartrate (Lopressor) 5 mg IVP Q6H PRN PRN Reason: Sustained HR > 130 Morphine Sulfate (Morphine) 1 mg IVP Q3H PRN PRN Reason: Pain, severe (8-10) Last Admin: 10/23/16 02:20 Dose: 1 mg Multi-Ingredient Ointment (Hydrophor Oint) 0 gm TOP Q6H [facility] Last Admin: 10/23/16 02:30 Dose: Not Given Octreotide Acetate (Sandostatin) 100 mcg SC Q8 [facility] Last Admin: 10/23/16 05:45 Dose: 100 mcg Ondansetron HCl (Zofran Inj) 4 mg IVP Q6 [facility] Last Admin: 10/23/16 05:54 Dose: 4 mg Pantoprazole Sodium (Protonix Inj) 40 mg IVP DAILY [facility] Last Admin: 10/22/16 09:47 Dose: 40 mg Petrolatum (Desitin Maximum Strength Topical 40% Oint) 1 gm TOP Q4H PRN PRN Reason: Rash Last Admin: 10/22/16 20:40 Dose: 1 applic Sucralfate (Carafate Oral Susp) 1 gm PO BID [facility] Last Admin: 10/22/16 17:29 Dose: 1 gm Throat Lozenges (Cepastat) 1 francis MT Q2H PRN PRN Reason: Sore Throat Last Admin: 10/22/16 22:01 Dose: 1 francis - Labs Labs: 10/22/16 06:15 10/22/16 06:15 PT 13.9 Seconds (9.9-11.8) H 10/18/16 06:00 INR 1.29 (0.93-1.08) H 10/18/16 06:00 APTT 39.9 Seconds (23.7-30.8) H 10/09/16 12:01 - Constitutional Appears: Non-toxic, No Acute Distress - Head Exam Head Exam: NORMAL INSPECTION - ENT Exam ENT Exam: Mucous Membranes Moist - Neck Exam Neck Exam: absent: Lymphadenopathy, Meningismus - Respiratory Exam Respiratory Exam: Decreased Breath Sounds - Cardiovascular Exam Cardiovascular Exam: +S1, +S2 - GI/Abdominal Exam GI & Abdominal Exam: Soft. absent: Tenderness Assessment and Plan - Assessment and Plan (Free Text) Plan: Assessment S/P severe sepsis with acute renal failure due to acute enteritis in this patient with acute neutropenia (now resolved) from chemotherapy for her stage 4 colon cancer Partial small bowel obstruction, clinically improving Acute stomatitis and mucositis, slowly improving Neutropenia probably from chemotherapy, resolved HTN 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 S/P colectomy in 2014 history of UTI GERD anxiety Plan continue Mycamine and Acyclovir for her stomatitis and mucositis Reviewed repeat CT scan of the abdomen and pelvis which shows the partial small bowel obstruction / stricture and she continues to be on parenteral nutrition Will continue to follow clinically Overall prognosis is poor
--- NOTE | 2016-10-24 21:13 | PN ---
DATE: 10/24/2016 This is patient's hospital visit on the medical floor. SUBJECTIVE: The patient is a 61-year-old female, seen lying awake in bed with recommendations for th e patient to be rolled [id number] so that her decubitus ulcer would dry up. However, the patient c ontinues to lie on her back reporting neck discomfort. She was treated for neutropenic sepsis with s evere neutropenia and thrombocytopenia, now modestly improved. She is noted to have a severe strictu re in the colorectal area for which the patient suffers from diarrhea with mucositis for which she is not tolerating a full liquid diet well. With this, she is now reporting she was not out of bed toda y with recommendations for the patient to try to participate with physiotherapy so muscle strength ma y regained, with the patient otherwise in no acute distress this visit. PHYSICAL EXAMINATION: VITAL SIGNS: Temperature 97.7, pulse 110, respirations 19, blood pressure 153/81, pulse ox 99%. HEENT: Unremarkable with oral mucosa erythematous. NECK: Supple. HEART: Tachy rate, regular rhythm. LUNGS: Clear. ABDOMEN: Soft, nontender. EXTREMITIES: +1 edema. NEUROLOGIC: Awake and alert, but somnolent. LABORATORY DATA: The patient's labs were done. White blood cell count of 9.6, hemoglobin 8.6, hemat ocrit 25.6, platelet count of 106,000 with a chem metabolic panel showing a BUN of 64, creatinine 1.2 with a total glucose of 130, calcium 7.4, albumin of 1.8, total protein of 4.5. The total intake for this patient as per Dr. Griffin, renal was 3600 mL in, 1350 mL out with considerat ion for IV albumin plus Lasix. ASSESSMENT: Neutropenic sepsis resolved, thrombocytopenia with neutropenia resolved, anemia of chron ic disease, metastatic stage IV carcinoma of the colon, mucositis, decubitus ulcer, acute renal failu re resolved, partial small-bowel obstruction, cauda equina syndrome with Salazar catheter, gastroesopha geal reflux disease, deconditioning, malnutrition, hypoalbuminemia. PLAN: To check her labs. Consider transfusion as indicated with consideration for albumin with Lasi x as per Dr. Hendricks's recommendation. The patient is to be out of bed to the chair on a daily basis with physiotherapy to evaluate for bedside range of motion and strengthening exercises. We will mon itor clinically and with labs. Tomasz Winters MD cc: [phone] TT: 10/24/2016 21:13:12 Confirmation # [id number] Dictation # [id number] mn
--- NOTE | 2016-10-25 00:28 | CP.PCM.PN ---
Subjective - Date & Time of Evaluation Date of Evaluation: 10/25/16 Time of Evaluation: 00:25 - Subjective Subjective: Patient was seen at bedside for his temperature was 102.8*F. 141/75 133/min 98% on RA. Patient was moaning in pain. Did not talk much. Medical record was reviewed. 61 year old white woman was admitted with weakness, non bloody diarrhoea following receiving Neulasta. Has PMH of Stage IV colon cancer, cauda equina syndrome, S/P radiation therapy to sacral area, constipation , retention of urine. Objective - Vital Signs/Intake and Output Vital Signs (last 24 hours): Temp Pulse Resp BP Pulse Ox 97.7 F 110 H 19 153/81 H 99 10/24/16 16:00 10/24/16 18:08 10/24/16 16:00 10/24/16 18:08 10/24/16 16:00 Intake and Output: 10/24/16 10/25/16 18:59 06:59 Intake Total 600 120 Output Total 200 400 Balance 400 -280 - Medications Medications: Current Medications Benzocaine (Orajel Pm Maximum Strength) 0 gm MT QID PRN PRN Reason: Pain, moderate (4-7) Last Admin: 10/18/16 05:27 Dose: 1 dose Bismuth Subsalicylate (Pepto-Bismol) 262 mg PO BID [facility] Last Admin: 10/24/16 18:04 Dose: Not Given Collagenase (Santyl) 1 gm TOP BID [facility] Last Admin: 10/24/16 21:27 Dose: 1 applic Al Hydrox/Mg Hydrox/Simethicone 30 ml/Diphenhydramine HCl 75 mg/Lidocaine 30 ml 0 ml PO Q2H PRN PRN Reason: Mouth/Throat Pain Last Admin: 10/23/16 22:39 Dose: 10 ml Diphenhydramine HCl (Benadryl) 25 mg IVP Q4H PRN PRN Reason: Allergy symptoms Last Admin: 10/22/16 04:00 Dose: 25 mg Home Med (Home Med) 1 unit PO Q12H PRN PRN Reason: Inflammation Last Admin: 10/18/16 11:03 Dose: 1 unit Acyclovir 370 mg/ Sodium (Chloride) 100 mls @ 100 mls/hr IV DAILY [facility] PRN Reason: Protocol Last Admin: 10/24/16 10:33 Dose: 100 mls/hr Multivitamins/Vitamin C 10 ml/Chromium/Copper/Manganese/Zinc 1 ml/ Amino Acids/ Electrolytes/Dextrose 2,011 mls @ 83.792 mls/hr IV .Q24H [facility] Last Admin: 10/24/16 17:53 Dose: 83.792 mls/hr Metoprolol Tartrate (Lopressor) 25 mg PO BID [facility] Last Admin: 10/24/16 18:08 Dose: 25 mg Metoprolol Tartrate (Lopressor) 5 mg IVP Q6H PRN PRN Reason: Sustained HR > 130 Morphine Sulfate (Morphine) 2 mg IVP Q3H PRN PRN Reason: Pain, severe (8-10) Last Admin: 10/24/16 22:41 Dose: 2 mg Multi-Ingredient Ointment (Hydrophor Oint) 0 gm TOP Q6H [facility] Last Admin: 10/24/16 22:39 Dose: 1 applic Octreotide Acetate (Sandostatin) 100 mcg SC Q8 [facility] Last Admin: 10/24/16 21:27 Dose: 100 mcg Ondansetron HCl (Zofran Inj) 4 mg IVP Q6 [facility] Last Admin: 10/24/16 18:08 Dose: 4 mg Pantoprazole Sodium (Protonix Inj) 40 mg IVP DAILY [facility] Last Admin: 10/24/16 11:04 Dose: 40 mg Petrolatum (Desitin Maximum Strength Topical 40% Oint) 1 gm TOP Q4H PRN PRN Reason: Rash Last Admin: 10/23/16 22:39 Dose: 1 applic Sucralfate (Carafate Oral Susp) 1 gm PO BID [facility] Last Admin: 10/24/16 18:08 Dose: 1 gm Throat Lozenges (Cepastat) 1 francis MT Q2H PRN PRN Reason: Sore Throat Last Admin: 10/22/16 22:01 Dose: 1 francis - Labs Labs: 10/24/16 06:00 10/24/16 06:00 PT 13.9 Seconds (9.9-11.8) H 10/24/16 06:00 INR 1.29 (0.93-1.08) H 10/24/16 06:00 APTT 39.9 Seconds (23.7-30.8) H 10/09/16 12:01 - Constitutional Appears: Well, No Acute Distress - Head Exam Head Exam: ATRAUMATIC, NORMAL INSPECTION, NORMOCEPHALIC - Eye Exam Eye Exam: Normal appearance - ENT Exam ENT Exam: Normal External Ear Exam - Neck Exam Neck Exam: Normal Inspection - Respiratory Exam Respiratory Exam: NORMAL BREATHING PATTERN - Cardiovascular Exam Cardiovascular Exam: REGULAR RHYTHM. absent: JVD - GI/Abdominal Exam GI & Abdominal Exam: absent: Distended - Rectal Exam Rectal Exam: Deferred - Extremities Exam Extremities Exam: Normal Inspection - Back Exam Back Exam: NORMAL INSPECTION - Neurological Exam Neurological Exam: Alert, Oriented x3 - Psychiatric Exam Psychiatric exam: Normal Affect, Normal Mood - Skin Skin Exam: Normal Color Assessment and Plan - Assessment and Plan (Free Text) Assessment: Fever. Sepsis. Colon cancer. Cauda equina syndrome. Plan: Tylenol suppository . Septic work up:CBC with Diff, Blood culture, UA, urine C & S, sputum culture, CXR. Cefepime 1 GM IV x 1. Nurse will call Dr. Arevalo. Later on nurse Recardo calls and tells that HR was 150 per min, regular.BP 166/ 134 mmHg. Lopressor 5 mg IV was administered slowly by me. Heart rate came down to:115/ min. Patient was placed on remote telemetry.
[2016-10-25] MEDS ORDERED: Cefepime IV 2 gm in NS 2 GM/100 ML BAG IVPB STA (00:37)
[2016-10-25] MEDS ORDERED: Vancomycin 1gm in NS 250ml 1 GM/250 ML BAG IVPB STA (01:08)
[2016-10-25] MEDS: Morphine 2 mg/ml ISec IVP PRN ×4 (01:20→21:22)
[2016-10-25] MEDS: Metoprolol 1 mg/ml Inj IVP PRN (01:36)
[2016-10-25 02:35] LABS: VENOUS BLOOD GAS BASE EXCESS -7.2 mmol/L (0.0-2.0); VENOUS BLOOD GAS PO2 160 mm/Hg (30-55); VENOUS BLOOD PH 7.29 (7.32-7.43)
[2016-10-25] MEDS ORDERED: Metoprolol 1 mg/ml Inj IVP ONE (03:01)
[2016-10-25 03:37] LABS: BASO # 0.03 K/mm3 (0.0-2.0); BASO % 0.3 % (0.0-3.0); GRAN % 83.1 % (50.0-68.0); LYMPH # 0.7 (1.2-3.4); LYMPH % 8.1 % (22.0-35.0); MEAN CELL VOLUME 89.4 fL (80.0-105.0); MEAN CORPUSCULAR HEMOGLOBIN 29.3 pg (25.0-35.0); MEAN CORPUSCULAR HGB CONC 32.8 g/dl (31.0-37.0); MEAN PLATELET VOLUME 12.9 fl (7.0-11.0); MONO # 0.8 (0.1-0.6); MONO % 8.5 % (1.0-6.0); PLATELET COUNT 145 10^3/uL (120.0-450.0); RBC 2.73 10^6/uL (3.5-6.1)
[2016-10-25] MEDS: Petrolatum-Mineral Oil Oint (100gm) TOP SCH ×4 (04:42→21:23)
[2016-10-25] MEDS: Meropenem 1g/NS 100mL IVPB 1 GM/100 ML PIGGYBACK IVPB SCH ×2 (06:05→21:23)
[2016-10-25 06:36] LABS: ALB/GLOB RATIO 0.6 (1.1-1.8); ALBUMIN 1.7 g/dL (3.0-4.8); CALCIUM 7.2 mg/dL (8.4-10.5); MAGNESIUM 1.5 mg/dL (1.7-2.2)
[2016-10-25 07:39] LABS: MEAN CORPUSCULAR HGB CONC 33.3 g/dl (31.0-37.0); MEAN PLATELET VOLUME 12.9 fl (7.0-11.0); RBC 2.29 10^6/uL (3.5-6.1); RED CELL DISTRIBUTION WIDTH 21.3 % (11.5-14.5); WHITE BLOOD COUNT 10.5 10^3/ul (4.5-11.0)
[2016-10-25 07:45] LABS: HEMOGLOBIN 7.1 gm/dL (12.0-16.0)
[2016-10-25] MEDS ORDERED: Barium Sulfate Susp 2.1% w/v, 2.0% w/w 450 mL Bottle PO ONE (08:30)
--- NOTE | 2016-10-25 09:26 | RAD ---
HISTORY: fever COMPARISON: 10/09/2016 FINDINGS: LUNGS: There is some platelike atelectasis of both lung bases. The lungs are otherwise clear PLEURA: No significant pleural effusion identified, no pneumothorax apparent. CARDIOVASCULAR: Normal. OSSEOUS STRUCTURES: No significant abnormalities. VISUALIZED UPPER ABDOMEN: Normal. OTHER FINDINGS: None. IMPRESSION: No active disease.
--- NOTE | 2016-10-25 09:34 | PN ---
DATE: 10/25/2016 The patient is in bed, in no acute distress, nontoxic, however, chronically ill, debilitated, having fevers, and she is in pain. PHYSICAL EXAMINATION: VITAL SIGNS: Temperature is 98. T-max is 103. Blood pressure is 160/100, respiratory rate of 20. HEENT: Unremarkable. NECK: Supple. LUNGS: Have decreased breath sounds. HEART: Normal S1, S2. ABDOMEN: Soft. Port-A-Cath site is clean and mild erythema above the Port-A-Cath site. LABORATORY EXAMINATION: Reveals a white count of 10,000, hemoglobin 7. Chemistries reveal a BUN of 63, creatinine of 1.4. Urinalysis is noted. Vancomycin random level is 8, and microbiology reveals E. coli in the urine. Blood cultures are no growth. Stool for C. diff is negative antigen and toxin . Review of the orders reveals the patient to be on vancomycin with dose of vancomycin given earlier th is morning and cefepime. ASSESSMENT AND PLAN: A 61-year-old female with severe sepsis, acute renal failure, acute enteritis a nd acute neutropenia, status post chemotherapy. The patient has stage IV colon cancer. Had partial small-bowel obstruction, and now on dose of vancomycin and Maxipime. Overall prognosis is quite poor for this patient. The patient was given Mycamine, and now on meropen em, intermittent vancomycin. The patient is still on acyclovir. We will continue meropenem pending culture results. Overall prognosis is quite poor for this end-stage patient with metastatic malignan cy. Should consider hospice setting and supportive care. Lang Akhtar MD cc: [id number] TT: 10/25/2016 09:33:42 Confirmation # [id number] Dictation # [id number] kyle
[2016-10-25] MEDS ORDERED: DiphenhydrAMINE 50 mg/ml Inj IVP ONE (10:00)
[2016-10-25] MEDS: Sucralfate 1 gm/10 ml Oral Susp UD PO SCH ×2 (11:04→18:21)
[2016-10-25] MEDS: Bismuth Subsalicylate 262 mg/15 ml Sus (240 ml) PO SCH ×2 (11:05→18:20)
[2016-10-25] MEDS: Collagenase 250 Units/gm Ointment(30 gm) TOP SCH ×2 (11:06→18:20)
--- NOTE | 2016-10-25 12:01 | PN ---
DATE: 10/25/2016 SUBJECTIVE: The patient is seen lying in bed. She just had a very large bloody bowel movement as pe r the nurse. She is complaining of lower abdominal pain. PHYSICAL EXAMINATION: GENERAL: Elderly lady lying in bed. VITAL SIGNS: Blood pressure 110/69, heart rate 95, respiratory rate 20, temperature 98, T-max is 103 .3. HEENT: Normocephalic, atraumatic, positive pallor. NECK: Supple, no JVD. LUNGS: Bilateral rhonchi, equal expansion, poor inspiratory effort. CARDIAC: S1, S2, regular rate and rhythm, no murmur, no rub. ABDOMEN: Distended, soft, tenderness in the lower abdomen. EXTREMITIES: 2+ pitting edema of the lower extremities. INTAKE AND OUTPUT: 840/975. LABORATORY DATA: WBC 10.5, hemoglobin 7.1, hematocrit 21, platelets 134. Sodium 144, potassium 4.0, chloride 119, CO2 19, BUN 63, creatinine 1.4, glucose 105, calcium 7.2, phosphorus 4.9, magnesium 1. 5, albumin 1.7, corrected calcium is 8.6. CURRENT MEDICATIONS: Acyclovir, Benadryl, Carafate, ____, Lopressor 25 b.i.d. not given, meropenem 1 gram q. 12, hyperal, Sandostatin, Santyl, Tylenol, Zofran. ASSESSMENT AND PLAN: 1. Severe anemia, gastrointestinal bleed. 2. Persistent diarrhea. 3. Colon cancer with bone metastases. 4. Acute kidney injury, resolved, creatinine down from 3.5. 5. Severe hypoalbuminemia, malnutrition, third pacing. PLAN: 1. Agree with ICU evaluation. 2. Agree with 2 units of blood transfusion. 3. Continue hyperal. 4. Normal saline at 40 mL per hour in addition to hyperal. 5. Continue antibiotics as per infectious disease recommendations. 6. Prognosis is grim. P.S. Hold IV fluids while blood is transfusing. Adele Griffin MD cc: [phone] TT: 10/25/2016 12:00:48 Confirmation # [id number] Dictation # [id number] jn
--- NOTE | 2016-10-25 12:05 | PN ---
DATE: 10/25/2016 Seen and examined at the bedside earlier this morning. No reports of diarrhea, although she was note d to have a fever last night, T-max of 103 that was rectally this morning, axillary 98. Her heart ra te was also increased and she was given Lopressor. This morning, the patient has no nausea or vomiti ng. Still has abdominal discomfort. After being evaluated this morning, received call from nursing staff after 10 that patient had some bleeding per rectum that was bright red. The patient is pending to go for CT scan of abdomen and pelvis. She was drinking oral contrast at time of visit. No repor ts of any shortness of breath or chest pain. VITAL SIGNS: Temperature 98, blood pressure 110/69, pulse 95, respirations 20, 96 O2 saturation. LABORATORY DATA: WBC is 10.5, her hemoglobin is 7.1 and hematocrit 21.3, platelets are 134. Sodium 144, K 4.0, BUN 63, creatinine is 1.4, mag level is 1.5. Total bilirubin 1.1, AST 15, ALT 28, alk ph os is 89 The patient had a chest x-ray last night and that showed no active disease. PHYSICAL EXAMINATION: HEENT: Sclerae are anicteric. NECK: Supple. CARDIAC: S1, S2. LUNGS: With decreased breath sounds at the bases with positive air entry. ABDOMEN: With bowel sounds, soft with some mild tenderness. No rebound or guarding. ASSESSMENT: A 61-year-old female with stage IV colon cancer with metastasis to bone. She came with acute renal failure which is slowly improving, thrombocytopenia which is much improved. She also has sepsis, status post neutropenia, and also came with enteritis. The diarrhea has improved but she re ceived Sandostatin and p.r.n. codeine. The patient is noted now to have fevers and history of urinar y tract infection and anemia, status post multiple blood transfusions. PLAN: Request for stat CT scan of abdomen and pelvis with only oral contrast, and she is able to tyrell erate more liquids now to check area of stricture. The patient is status post blood per rectum. Austen her make her n.p.o. at this time. She is going to get a blood transfusion. Currently on PPN. She is not on any anticoagulants right now. She is on IV antibiotics. We will stop the Sandostatin or put it on hold and review CT scan. If further bleeding, we will consider bleeding scan. Spoke to rm jones staff. The patient was seen and case discussed with Dr. Null. Yoana IQBAL cc: [phone] TT: 10/25/2016 12:05:03 Confirmation # [id number] Dictation # [id number] mn
--- NOTE | 2016-10-25 12:54 | CT ---
PROCEDURE: CT Abdomen and Pelvis without intravenous contrast HISTORY: fever, colon cancer with colonic stricture COMPARISON: 10/19/2016 TECHNIQUE: Without contrast. Contrast Dose: Radiation dose: Total exam DLP = 849 mGy-cm. This CT exam was performed using one or more of the following dose reduction techniques: Automated exposure control, adjustment of the mA and/or kV according to patient size, and/or use of iterative reconstruction technique. FINDINGS: LOWER THORAX: Unremarkable. LIVER: 18 mm cyst in the right lobe of the liver GALLBLADDER AND BILE DUCTS: Unremarkable. PANCREAS: Unremarkable. No gross lesion or ductal dilatation. SPLEEN: Unremarkable. ADRENALS: Unremarkable. No mass. KIDNEYS AND URETERS: Unremarkable. No hydronephrosis. No solid mass. VASCULATURE: Unremarkable. No aortic aneurysm. BOWEL: There is no significant change in the pattern of partial small bowel obstruction. Multiple dilated loops are seen with a maximum diameter of 5 cm. The distal small bowel loops are normal in caliber. APPENDIX: Unremarkable. Normal appendix. PERITONEUM: Unremarkable. No free fluid. No free air. LYMPH NODES: Unremarkable. No enlarged lymph nodes. BLADDER: Unremarkable. REPRODUCTIVE: Unremarkable. BONES: There is a lytic lesion in the right sacral ala. This is unchanged. OTHER FINDINGS: None. IMPRESSION: There is no significant change in the pattern of partial small bowel obstruction. Multiple dilated loops are seen with a maximum diameter of 5 cm. The distal small bowel loops are normal in caliber. Lytic lesion right sacral ala
--- NOTE | 2016-10-25 14:14 | CP.PCM.CON ---
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 We are consultation due to GI bleed. Pt had a drop in Hgb to 6.7 on the 10/18/16 and was transfused 2 units at that time, but no bleeding was in evidence. Overnight, she had 2 bloody liquid BMs and her Hgb dropped from 8 to 7.1 in 4 hours. Patient is very weak and bed bound. + Crampy abd pain. Denies F/C, N/V, SOB, cough, chest pain, palpitations. Pt is not on any anticoagulants at this time. She is currently receiving PRBCs and is on PPN. PMH: Stage 4 colon cancer, s/p FOLFOX6 chemotherapy, , hypertension, cauda equina syndrome, anxiety PSH: Colectomy 2015, chest wall lesion SH: No tobacco, EtOH, or drug use All: Contrast Meds: See MAR Review of Systems - Review of Systems All systems: reviewed and no additional remarkable complaints except (as per HPI ) Past Patient History - Infectious Disease Hx of Infectious Diseases: None - Tetanus Immunizations Tetanus Immunization: Unknown - Past Social History Smoking Status: Never Smoked - CARDIAC Hx Cardiac Disorders: Yes Hx Hypertension: Yes - PULMONARY Hx Respiratory Disorders: No - NEUROLOGICAL Hx Neurological Disorder: No - HEENT Hx HEENT Problems: Yes (Contacts/glasses) - RENAL Hx Renal Failure: Yes (urinary retention) - ENDOCRINE/METABOLIC Hx Endocrine Disorders: No - HEMATOLOGICAL/ONCOLOGICAL Hx Cancer: Yes (colon; mets to bone) - INTEGUMENTARY 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) - MUSCULOSKELETAL/RHEUMATOLOGICAL Hx Musculoskeletal Disorders: Yes Hx Back Pain: Yes Hx Falls: No - GASTROINTESTINAL Hx Gastroesophageal Reflux: Yes - GENITOURINARY/GYNECOLOGICAL Hx Genitourinary Disorders: Yes Hx Urinary Tract Infection: Yes - PSYCHIATRIC Hx Psychophysiologic Disorder: Yes Hx Anxiety: Yes Hx Substance Use: No - SURGICAL HISTORY Other/Comment: lesion remove from chest wall - ANESTHESIA Hx Anesthesia Reactions: No Hx Malignant Hyperthermia: No Meds Allergies/Adverse Reactions: Allergies Allergy/AdvReac Type Severity Reaction Status Date / Time IV CONTRAST Allergy Severe SHORTNESS Uncoded 10/06/16 18:13 OF BREATH CAF Allergy Intermediate PALPITATION Uncoded 10/06/16 18:13 S - Medications Medications: Current Medications Acetaminophen (Tylenol 325mg Tab) 650 mg PO Q4 PRN PRN Reason: Fever >100.4 F Last Admin: 10/25/16 03:57 Dose: 650 mg Acetaminophen (Tylenol 650 Mg Supp) 650 mg RC Q4H PRN PRN Reason: Fever >100.4 F Benzocaine (Orajel Pm Maximum Strength) 0 gm MT QID PRN PRN Reason: Pain, moderate (4-7) Last Admin: 10/18/16 05:27 Dose: 1 dose Bismuth Subsalicylate (Pepto-Bismol) 262 mg PO BID REPLACED BY [facility] Last Admin: 10/25/16 11:05 Dose: Not Given Collagenase (Santyl) 1 gm TOP BID RODRÍGUEZ Last Admin: 10/25/16 11:06 Dose: 2 applic Al Hydrox/Mg Hydrox/Simethicone 30 ml/Diphenhydramine HCl 75 mg/Lidocaine 30 ml 0 ml PO Q2H PRN PRN Reason: Mouth/Throat Pain Last Admin: 10/23/16 22:39 Dose: 10 ml Diphenhydramine HCl (Benadryl) 25 mg IVP Q4H PRN PRN Reason: Allergy symptoms Last Admin: 10/22/16 04:00 Dose: 25 mg Home Med (Home Med) 1 unit PO Q12H PRN PRN Reason: Inflammation Last Admin: 10/18/16 11:03 Dose: 1 unit Acyclovir 370 mg/ Sodium (Chloride) 100 mls @ 100 mls/hr IV DAILY RODRÍGUEZ PRN Reason: Protocol Last Admin: 10/25/16 11:04 Dose: 100 mls/hr Multivitamins/Vitamin C 10 ml/Chromium/Copper/Manganese/Zinc 1 ml/ Amino Acids/ Electrolytes/Dextrose 2,011 mls @ 83.792 mls/hr IV .Q24H REPLACED BY [facility] Last Admin: 10/24/16 17:53 Dose: 83.792 mls/hr Meropenem 1g/NS 100mL IVPB (Meropenem 1g/Ns 100ml Ivpb) 1 gm in 100 mls @ 100 mls/hr IVPB Q12 RODRÍGUEZ PRN Reason: Protocol Stop: 11/01/16 06:01 Last Admin: 10/25/16 06:05 Dose: 100 mls/hr Sodium Chloride (Sodium Chloride 0.9%) 1,000 mls @ 40 mls/hr IV .Q24H REPLACED BY [facility] Phytonadione 20 mg/ Sodium (Chloride) 52 mls @ 100 mls/hr IV ONCE ONE Stop: 10/25/16 14:14 Metoprolol Tartrate (Lopressor) 25 mg PO BID REPLACED BY [facility] Last Admin: 10/25/16 11:03 Dose: 25 mg Metoprolol Tartrate (Lopressor) 5 mg IVP Q6H PRN PRN Reason: Sustained HR > 130 Last Admin: 10/25/16 01:36 Dose: 5 mg Morphine Sulfate (Morphine) 2 mg IVP Q3H PRN PRN Reason: Pain, severe (8-10) Last Admin: 10/25/16 04:43 Dose: 2 mg Multi-Ingredient Ointment (Hydrophor Oint) 0 gm TOP Q6H REPLACED BY [facility] Last Admin: 10/25/16 09:30 Dose: 2 applic Octreotide Acetate (Sandostatin) 100 mcg SC Q8 REPLACED BY [facility] Last Admin: 10/25/16 06:05 Dose: 100 mcg Petrolatum (Desitin Maximum Strength Topical 40% Oint) 1 gm TOP Q4H PRN PRN Reason: Rash Last Admin: 10/23/16 22:39 Dose: 1 applic Sucralfate (Carafate Oral Susp) 1 gm PO BID REPLACED BY [facility] Last Admin: 10/25/16 11:04 Dose: 1 gm Throat Lozenges (Cepastat) 1 francis MT Q2H PRN PRN Reason: Sore Throat Last Admin: 10/22/16 22:01 Dose: 1 francis Physical Exam - Constitutional Appears: Non-toxic, No Acute Distress, Chronically Ill - Head Exam Head Exam: ATRAUMATIC, NORMOCEPHALIC - Eye Exam Eye Exam: EOMI. absent: Scleral icterus - ENT Exam ENT Exam: Mucous Membranes Dry Additional comments: trachea midline - Respiratory Exam Respiratory Exam: NORMAL BREATHING PATTERN. absent: Respiratory Distress Additional comments: R chest port - Cardiovascular Exam Cardiovascular Exam: Tachycardia, +S1, +S2 - GI/Abdominal Exam GI & Abdominal Exam: Soft, Tenderness (in LLQ). absent: Distended, Firm, Guarding, Rebound, Rigid - Rectal Exam Additional comments: actively having diarrhea dark liquid blood - Extremities Exam Extremities exam: Positive for: pedal edema. Negative for: tenderness - Neurological Exam Neurological exam: Alert, Oriented x3 - Psychiatric Exam Psychiatric exam: Flat Affect, Normal Mood - Skin Skin Exam: Dry, Pallor Results - Vital Signs Recent Vital Signs: Last Vital Signs Temp 97.4 F L 10/25/16 13:22 Pulse 92 H 10/25/16 13:22 Resp 18 10/25/16 13:22 BP 129/79 10/25/16 13:22 Pulse Ox 96 10/25/16 09:22 - Labs Result Diagrams: 10/25/16 05:55 10/25/16 05:55 Labs: Laboratory Results - last 24 hr 10/25/16 10/25/16 10/25/16 02:10 02:10 05:55 WBC 9.0 10.5 RBC 2.73 L 2.29 L Hgb 8.0 L 7.1 L Hct 24.4 L 21.3 L MCV 89.4 93.0 MCH 29.3 31.0 MCHC 32.8 33.3 RDW 19.0 H 21.3 H Plt Count 145 134 MPV 12.9 H 12.9 H Gran % 83.1 H Lymph % (Auto) 8.1 L [place] % (Auto) 8.5 H Eos % (Auto) 0.0 L Baso % (Auto) 0.3 Gran # 7.50 H Lymph # 0.7 L [place] # 0.8 H Eos # 0.0 Baso # 0.03 pO2 160 H VBG pH 7.29 L VBG pCO2 39.0 L VBG HCO3 18.8 L VBG O2 Sat (Calc) 100.0 H VBG Base Excess -7.2 L Sodium Potassium Chloride Carbon Dioxide Anion Gap BUN Creatinine Est GFR ( Amer) Est GFR (Non-Af Amer) Random Glucose Calcium Phosphorus Magnesium Total Bilirubin AST ALT Alkaline Phosphatase Total Protein Albumin Globulin Albumin/Globulin Ratio Blood Type Antibody Screen Crossmatch BBK History Checked 10/25/16 10/25/16 05:55 05:55 WBC RBC Hgb Hct MCV MCH MCHC RDW Plt Count MPV Gran % Lymph % (Auto) [place] % (Auto) Eos % (Auto) Baso % (Auto) Gran # Lymph # [place] # Eos # Baso # pO2 VBG pH VBG pCO2 VBG HCO3 VBG O2 Sat (Calc) VBG Base Excess Sodium 144 Potassium 4.0 Chloride 119 H Carbon Dioxide 19 L Anion Gap 10 BUN 63 H Creatinine 1.4 Est GFR ( Amer) 46 Est GFR (Non-Af Amer) 38 Random Glucose 105 Calcium 7.2 L Phosphorus 4.9 H Magnesium 1.5 L Total Bilirubin 1.1 AST 15 ALT 28 Alkaline Phosphatase 89 Total Protein 4.5 L Albumin 1.7 L Globulin 2.8 Albumin/Globulin Ratio 0.6 L Blood Type A POSITIVE Antibody Screen Negative Crossmatch See Detail BBK History Checked Patient has bt - Imaging and Cardiology CT scan - abdomen Status: Image reviewed by me, Report reviewed by me Assessment & Plan - Assessment and Plan (Free Text) Assessment: 61F with lower GI bleed Plan: Transfuse 2 PRBCs, 2 FFP 20mg Vitamin K Monitor for further bleeding ICU monitoring Strict I&Os NPO Ok with bleeding scan if bleed continues. D/W Dr. Kaykay Leon PGY3 <Yoan Mccracken - Last Filed: 12/02/16 23:40> Meds - Medications Medications: Current Medications Acetaminophen (Tylenol 650 Mg Supp) 650 mg RC Q4H PRN PRN Reason: Fever >100.4 F Last Admin: 11/01/16 21:18 Dose: 650 mg Al Hydrox/Mg Hydrox/Simethicone 30 ml/Diphenhydramine HCl 75 mg/Lidocaine 30 ml 0 ml PO QID REPLACED BY [facility] Last Admin: 12/02/16 21:01 Dose: Not Given Diphenhydramine HCl (Benadryl) 50 mg IVP HS PRN PRN Reason: Insomnia Last Admin: 11/27/16 01:00 Dose: 50 mg Ergocalciferol (Drisdol 50,000 Intl Units Cap) 1 cap PO Q7D REPLACED BY [facility] Last Admin: 11/19/16 18:04 Dose: Not Given Ferrous Sulfate (Feosol) 324 mg PO TID REPLACED BY [facility] Last Admin: 12/02/16 18:16 Dose: Not Given Fluconazole (Diflucan) 200 mg PO DAILY REPLACED BY [facility] PRN Reason: Protocol Stop: 12/12/16 10:01 Last Admin: 12/02/16 09:44 Dose: Not Given Home Med (Home Med) 1 unit PO Q12H PRN PRN Reason: Inflammation Last Admin: 10/18/16 11:03 Dose: 1 unit Hydralazine HCl (Apresoline) 10 mg IVP Q4H PRN PRN Reason: Systolic Blood Pressure Hydromorphone HCl (Dilaudid) 1 mg IVP Q1H PRN PRN Reason: Pain, moderate (4-7) Last Admin: 12/02/16 21:06 Dose: 1 mg Levetiracetam (Keppra 500mg Ivpb) 500 mg in 100 mls @ 400 mls/hr IV Q12 REPLACED BY [facility] Last Admin: 12/02/16 21:06 Dose: 400 mls/hr Potassium Chloride/Dextrose (Potassium Chl 40 Meq In D5w) 1,000 mls @ 60 mls/ hr IV .[id number] REPLACED BY [facility] Last Admin: 12/02/16 18:17 Dose: Not Given Magnesium Hydroxide (Milk Of Magnesia) 30 ml PO DAILY PRN PRN Reason: skin irritation Last Admin: 12/02/16 14:09 Dose: 30 ml Magnesium Oxide (Mag-Ox) 400 mg PO BID REPLACED BY [facility] Last Admin: 12/02/16 18:16 Dose: Not Given Multi-Ingredient Ointment (Hydrophor Oint) 0 gm TOP Q6H PRN PRN Reason: Dry lip Multivitamins (Thera Tab) 1 tab PO 0800 REPLACED BY [facility] Last Admin: 12/02/16 08:10 Dose: Not Given Propranolol HCl (Inderal La) 120 mg PO DAILY REPLACED BY [facility] Last Admin: 12/02/16 09:44 Dose: Not Given Sucralfate (Carafate Oral Susp) 1 gm PO BID REPLACED BY [facility] Last Admin: 12/02/16 18:16 Dose: Not Given Results - Vital Signs Recent Vital Signs: Last Vital Signs Temp 97.8 F 12/02/16 16:00 Pulse 101 H 12/02/16 16:00 Resp 18 12/02/16 16:00 BP 170/89 H 12/02/16 16:00 Pulse Ox 100 12/02/16 16:00 - Labs Result Diagrams: 12/02/16 06:00 12/02/16 06:00 Labs: Laboratory Results - last 24 hr 11/14/16 12/01/16 12/02/16 10:30 17:57 06:00 WBC 10.6 RBC 3.60 Hgb 10.5 L Hct 33.7 L MCV 93.6 MCH 29.2 MCHC 31.2 RDW 16.1 H Plt Count 71 L MPV 11.3 H Gran % 94.1 H Lymph % (Auto) 3.5 L [place] % (Auto) 2.2 Eos % (Auto) 0.2 L Baso % (Auto) 0.0 Gran # 9.96 H Lymph # 0.4 L [place] # 0.2 Eos # 0.0 Baso # 0.00 PT INR APTT Sodium Potassium Chloride Carbon Dioxide Anion Gap BUN Creatinine Est GFR ( Amer) Est GFR (Non-Af Amer) Random Glucose Calcium Magnesium Total Bilirubin AST ALT Alkaline Phosphatase Total Protein Albumin Globulin Albumin/Globulin Ratio Blood Type A POSITIVE Antibody Screen Negative Crossmatch See Detail BBK History Checked Patient has bt 12/02/16 12/02/16 06:00 06:00 WBC RBC Hgb Hct MCV MCH MCHC RDW Plt Count MPV Gran % Lymph % (Auto) [place] % (Auto) Eos % (Auto) Baso % (Auto) Gran # Lymph # [place] # Eos # Baso # PT 12.9 H INR 1.19 H APTT 32.9 H Sodium 145 Potassium 2.9 L* D Chloride 108 H Carbon Dioxide 33 Anion Gap 7 L BUN 14 Creatinine 0.3 L Est GFR ( Amer) > 60 Est GFR (Non-Af Amer) > 60 Random Glucose 89 Calcium 7.6 L Magnesium 1.8 Total Bilirubin 0.7 AST 19 ALT 23 Alkaline Phosphatase 275 H Total Protein 4.3 L Albumin 1.8 L Globulin 2.5 Albumin/Globulin Ratio 0.7 L Blood Type Antibody Screen Crossmatch BBK History Checked Assessment & Plan - Assessment and Plan (Free Text) Plan: Patient was seen and examined by me. I agree with assessment and plan as per resident's note. - Date & Time Date: 10/25/16 Time: 15:10
--- NOTE | 2016-10-25 16:14 | CP.PCM.PN ---
Subjective - Date & Time of Evaluation Date of Evaluation: 10/25/16 Time of Evaluation: 16:13 - Subjective Subjective: pt needs angiocath insertion. Objective - Vital Signs/Intake and Output Vital Signs (last 24 hours): Temp Pulse Resp BP Pulse Ox 97.6 F 92 H 18 120/78 96 10/25/16 16:12 10/25/16 16:12 10/25/16 16:12 10/25/16 16:12 10/25/16 09:22 Intake and Output: 10/25/16 10/25/16 06:59 18:59 Intake Total 240 3010 Output Total 775 225 Balance -535 2785 - Medications Medications: Current Medications Acetaminophen (Tylenol 325mg Tab) 650 mg PO Q4 PRN PRN Reason: Fever >100.4 F Last Admin: 10/25/16 03:57 Dose: 650 mg Acetaminophen (Tylenol 650 Mg Supp) 650 mg RC Q4H PRN PRN Reason: Fever >100.4 F Benzocaine (Orajel Pm Maximum Strength) 0 gm MT QID PRN PRN Reason: Pain, moderate (4-7) Last Admin: 10/18/16 05:27 Dose: 1 dose Bismuth Subsalicylate (Pepto-Bismol) 262 mg PO BID [facility] Last Admin: 10/25/16 11:05 Dose: Not Given Collagenase (Santyl) 1 gm TOP BID [facility] Last Admin: 10/25/16 11:06 Dose: 2 applic Al Hydrox/Mg Hydrox/Simethicone 30 ml/Diphenhydramine HCl 75 mg/Lidocaine 30 ml 0 ml PO Q2H PRN PRN Reason: Mouth/Throat Pain Last Admin: 10/23/16 22:39 Dose: 10 ml Diphenhydramine HCl (Benadryl) 25 mg IVP Q4H PRN PRN Reason: Allergy symptoms Last Admin: 10/22/16 04:00 Dose: 25 mg Home Med (Home Med) 1 unit PO Q12H PRN PRN Reason: Inflammation Last Admin: 10/18/16 11:03 Dose: 1 unit Acyclovir 370 mg/ Sodium (Chloride) 100 mls @ 100 mls/hr IV DAILY RODRÍGEUZ PRN Reason: Protocol Last Admin: 10/25/16 11:04 Dose: 100 mls/hr Multivitamins/Vitamin C 10 ml/Chromium/Copper/Manganese/Zinc 1 ml/ Amino Acids/ Electrolytes/Dextrose 2,011 mls @ 83.792 mls/hr IV .Q24H [facility] Last Admin: 10/24/16 17:53 Dose: 83.792 mls/hr Meropenem 1g/NS 100mL IVPB (Meropenem 1g/Ns 100ml Ivpb) 1 gm in 100 mls @ 100 mls/hr IVPB Q12 [facility] PRN Reason: Protocol Stop: 11/01/16 06:01 Last Admin: 10/25/16 06:05 Dose: 100 mls/hr Sodium Chloride (Sodium Chloride 0.9%) 1,000 mls @ 40 mls/hr IV .Q24H [facility] Metoprolol Tartrate (Lopressor) 25 mg PO BID [facility] Last Admin: 10/25/16 11:03 Dose: 25 mg Metoprolol Tartrate (Lopressor) 5 mg IVP Q6H PRN PRN Reason: Sustained HR > 130 Last Admin: 10/25/16 01:36 Dose: 5 mg Morphine Sulfate (Morphine) 2 mg IVP Q3H PRN PRN Reason: Pain, severe (8-10) Last Admin: 10/25/16 04:43 Dose: 2 mg Multi-Ingredient Ointment (Hydrophor Oint) 0 gm TOP Q6H [facility] Last Admin: 10/25/16 09:30 Dose: 2 applic Octreotide Acetate (Sandostatin) 100 mcg SC Q8 [facility] Last Admin: 10/25/16 06:05 Dose: 100 mcg Petrolatum (Desitin Maximum Strength Topical 40% Oint) 1 gm TOP Q4H PRN PRN Reason: Rash Last Admin: 10/23/16 22:39 Dose: 1 applic Sucralfate (Carafate Oral Susp) 1 gm PO BID [facility] Last Admin: 10/25/16 11:04 Dose: 1 gm Throat Lozenges (Cepastat) 1 francis MT Q2H PRN PRN Reason: Sore Throat Last Admin: 10/22/16 22:01 Dose: 1 francis - Labs Labs: 10/25/16 05:55 10/25/16 05:55 PT 13.9 Seconds (9.9-11.8) H 10/24/16 06:00 INR 1.29 (0.93-1.08) H 10/24/16 06:00 APTT 39.9 Seconds (23.7-30.8) H 10/09/16 12:01 Assessment and Plan - Assessment and Plan (Free Text) Assessment: 24 guage angiocath inserted in rt elbow area.
--- NOTE | 2016-10-25 17:18 | CP.PCM.CON ---
<Cassie Arcos - Last Filed: 10/25/16 17:22> History of Present Illness - History of Present Illness History of Present Illness: PGY-[address] Centeno ICU consult: GI bleed 61 F with a PMH of stage IV colon CA s/p colectomy reversal s/p FOLFOX-6 chemotherapy regimen x2 with Neulasta afterwards last done Saturday10/05/16, s/p XRT for sacral metastasis, admitted on 10/09 for diarrhea. 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 Resolved s/p 2 uRBC, 1 FFP, 2 plts. Urine culture positive for E coli. C.diff negative for toxin and antigen. Overnight, pt spike fever of 102.8. HR 140, melanoic stool ( moderate amount.) During the day shift, 3 episodes of diarrhea (2 bright/red; 1 maroon). ROS: (+) chills, (+) RLQ cramps but not currently Denies dizziness, CP, SOB, n/v/c, n/t VS: 98.4, 129/79, HR 96, POx 100 on 3L Hb 7.1. HCT 21.3. PT 13.9. INR 1.29. Plt 134 Currently pt is receiving 2u PRC and [address] scan (10/25) showed Partial small bowel obstruction, unchanged. Lytic R sacral ala. PMH: Stage 4 colon cancer, s/p FOLFOX6 chemotherapy, , hypertension, cauda equina syndrome, anxiety,urinary retention PSH: Colectomy & reversal 2014, chest wall lesion SH: No tobacco, EtOH, or drug use All: Contrast and CAF Meds: See JUL PMD: Dr. 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) - MUSCULOSKELETAL/RHEUMATOLOGICAL Hx Musculoskeletal Disorders: Yes Hx Back Pain: Yes Hx Falls: No - GASTROINTESTINAL Hx Gastroesophageal Reflux: Yes - GENITOURINARY/GYNECOLOGICAL Hx Genitourinary Disorders: Yes Hx Urinary Tract Infection: Yes - PSYCHIATRIC Hx Psychophysiologic Disorder: Yes Hx Anxiety: Yes Hx Substance Use: No - SURGICAL HISTORY Other/Comment: lesion remove from chest wall - ANESTHESIA Hx Anesthesia Reactions: No Hx Malignant Hyperthermia: No Meds Allergies/Adverse Reactions: Allergies Allergy/AdvReac Type Severity Reaction Status Date / Time IV CONTRAST Allergy Severe SHORTNESS Uncoded 10/06/16 18:13 OF BREATH CAF Allergy Intermediate PALPITATION Uncoded 10/06/16 18:13 S - Medications Medications: Current Medications Acetaminophen (Tylenol 325mg Tab) 650 mg PO Q4 PRN PRN Reason: Fever >100.4 F Last Admin: 10/25/16 03:57 Dose: 650 mg Acetaminophen (Tylenol 650 Mg Supp) 650 mg RC Q4H PRN PRN Reason: Fever >100.4 F Benzocaine (Orajel Pm Maximum Strength) 0 gm MT QID PRN PRN Reason: Pain, moderate (4-7) Last Admin: 10/18/16 05:27 Dose: 1 dose Bismuth Subsalicylate (Pepto-Bismol) 262 mg PO BID [facility] Last Admin: 10/25/16 11:05 Dose: Not Given Collagenase (Santyl) 1 gm TOP BID [facility] Last Admin: 10/25/16 11:06 Dose: 2 applic Al Hydrox/Mg Hydrox/Simethicone 30 ml/Diphenhydramine HCl 75 mg/Lidocaine 30 ml 0 ml PO Q2H PRN PRN Reason: Mouth/Throat Pain Last Admin: 10/23/16 22:39 Dose: 10 ml Diphenhydramine HCl (Benadryl) 25 mg IVP Q4H PRN PRN Reason: Allergy symptoms Last Admin: 10/22/16 04:00 Dose: 25 mg Home Med (Home Med) 1 unit PO Q12H PRN PRN Reason: Inflammation Last Admin: 10/18/16 11:03 Dose: 1 unit Acyclovir 370 mg/ Sodium (Chloride) 100 mls @ 100 mls/hr IV DAILY RODRÍGUEZ PRN Reason: Protocol Last Admin: 10/25/16 11:04 Dose: 100 mls/hr Multivitamins/Vitamin C 10 ml/Chromium/Copper/Manganese/Zinc 1 ml/ Amino Acids/ Electrolytes/Dextrose 2,011 mls @ 83.792 mls/hr IV .Q24H [facility] Last Admin: 10/24/16 17:53 Dose: 83.792 mls/hr Meropenem 1g/NS 100mL IVPB (Meropenem 1g/Ns 100ml Ivpb) 1 gm in 100 mls @ 100 mls/hr IVPB Q12 [facility] PRN Reason: Protocol Stop: 11/01/16 06:01 Last Admin: 10/25/16 06:05 Dose: 100 mls/hr Sodium Chloride (Sodium Chloride 0.9%) 1,000 mls @ 40 mls/hr IV .Q24H [facility] Metoprolol Tartrate (Lopressor) 25 mg PO BID [facility] Last Admin: 10/25/16 11:03 Dose: 25 mg Metoprolol Tartrate (Lopressor) 5 mg IVP Q6H PRN PRN Reason: Sustained HR > 130 Last Admin: 10/25/16 01:36 Dose: 5 mg Morphine Sulfate (Morphine) 2 mg IVP Q3H PRN PRN Reason: Pain, severe (8-10) Last Admin: 10/25/16 04:43 Dose: 2 mg Multi-Ingredient Ointment (Hydrophor Oint) 0 gm TOP Q6H [facility] Last Admin: 10/25/16 15:21 Dose: 1 applic Octreotide Acetate (Sandostatin) 100 mcg SC Q8 [facility] Last Admin: 10/25/16 06:05 Dose: 100 mcg Petrolatum (Desitin Maximum Strength Topical 40% Oint) 1 gm TOP Q4H PRN PRN Reason: Rash Last Admin: 10/23/16 22:39 Dose: 1 applic Sucralfate (Carafate Oral Susp) 1 gm PO BID [facility] Last Admin: 10/25/16 11:04 Dose: 1 gm Throat Lozenges (Cepastat) 1 francis MT Q2H PRN PRN Reason: Sore Throat Last Admin: 10/22/16 22:01 Dose: 1 francis Physical Exam - Constitutional Appears: No Acute Distress, Cachectic, Chronically Ill - Head Exam Head Exam: ATRAUMATIC, NORMAL INSPECTION, NORMOCEPHALIC - Eye Exam Eye Exam: EOMI, Normal appearance, PERRL. absent: Scleral icterus Pupil Exam: NORMAL ACCOMODATION - ENT Exam ENT Exam: Mucous Membranes Dry - Neck Exam Neck exam: Negative for: Lymphadenopathy, Meningismus - Respiratory Exam Respiratory Exam: Clear to Auscultation Bilateral, NORMAL BREATHING PATTERN. absent: Rhonchi, Wheezes, Respiratory Distress - Cardiovascular Exam Cardiovascular Exam: REGULAR RHYTHM, +S1, +S2. absent: Systolic Murmur - GI/Abdominal Exam GI & Abdominal Exam: Normal Bowel Sounds, Soft, Tenderness (RLQ). absent: Distended, Firm, Guarding, Rigid - Rectal Exam Rectal Exam: Bloody Stool (marroon mixed with brown, loose consistency) - Extremities Exam Extremities exam: Positive for: pedal edema (2+ pittting), pedal pulses present - Neurological Exam Neurological exam: Oriented x3 Additional comments: lethargic - Psychiatric Exam Psychiatric exam: Normal Affect, Normal Mood - Skin Skin Exam: Dry, Warm Results - Vital Signs Recent Vital Signs: Last Vital Signs Temp 98.4 F 10/25/16 16:27 Pulse 100 H 10/25/16 16:27 Resp 18 10/25/16 16:27 BP 122/78 10/25/16 16:27 Pulse Ox 96 10/25/16 09:22 - Labs Result Diagrams: 10/25/16 05:55 10/25/16 05:55 Labs: Laboratory Results - last 24 hr 10/25/16 10/25/16 10/25/16 02:10 02:10 05:55 WBC 9.0 10.5 RBC 2.73 L 2.29 L Hgb 8.0 L 7.1 L Hct 24.4 L 21.3 L MCV 89.4 93.0 MCH 29.3 31.0 MCHC 32.8 33.3 RDW 19.0 H 21.3 H Plt Count 145 134 MPV 12.9 H 12.9 H Gran % 83.1 H Lymph % (Auto) 8.1 L Bracken % (Auto) 8.5 H Eos % (Auto) 0.0 L Baso % (Auto) 0.3 Gran # 7.50 H Lymph # 0.7 L Bracken # 0.8 H Eos # 0.0 Baso # 0.03 pO2 160 H VBG pH 7.29 L VBG pCO2 39.0 L VBG HCO3 18.8 L VBG O2 Sat (Calc) 100.0 H VBG Base Excess -7.2 L Sodium Potassium Chloride Carbon Dioxide Anion Gap BUN Creatinine Est GFR ( Amer) Est GFR (Non-Af Amer) Random Glucose Calcium Phosphorus Magnesium Total Bilirubin AST ALT Alkaline Phosphatase Total Protein Albumin Globulin Albumin/Globulin Ratio Blood Type Antibody Screen Crossmatch BBK History Checked 10/25/16 10/25/16 05:55 05:55 WBC RBC Hgb Hct MCV MCH MCHC RDW Plt Count MPV Gran % Lymph % (Auto) Bracken % (Auto) Eos % (Auto) Baso % (Auto) Gran # Lymph # Bracken # Eos # Baso # pO2 VBG pH VBG pCO2 VBG HCO3 VBG O2 Sat (Calc) VBG Base Excess Sodium 144 Potassium 4.0 Chloride 119 H Carbon Dioxide 19 L Anion Gap 10 BUN 63 H Creatinine 1.4 Est GFR ( Amer) 46 Est GFR (Non-Af Amer) 38 Random Glucose 105 Calcium 7.2 L Phosphorus 4.9 H Magnesium 1.5 L Total Bilirubin 1.1 AST 15 ALT 28 Alkaline Phosphatase 89 Total Protein 4.5 L Albumin 1.7 L Globulin 2.8 Albumin/Globulin Ratio 0.6 L Blood Type A POSITIVE Antibody Screen Negative Crossmatch See Detail BBK History Checked Patient has bt Assessment & Plan - Assessment and Plan (Free Text) Plan: 61 F with a PMH of stage IV colon CA s/p colectomy reversal s/p FOLFOX-6 chemotherapy regimen x2 with Neulasta, recently treated for sepsis and neutropenia/ pancytopenia due to radiation enteritis vs E-coli UTI. Pt has a GI bleed, upper vs lower GI, PUD vs cancer vs site of reanastomosis. Fever likely reactive to SIRS from bleeding, unlikely from worsening of sepsis. Neuro Lethargic likely from benadryl received prior to blood transfusion. Continue to observe Card HR 90s Continue monitor BP, vitals CBC q4 Pulm No acute issue GI After receiving the 2 u RBC and 2 FFP, if GI bleed continues, then bleeding scan Consider add protonix BID I/O per shift Watch kidney function Heme Managed by Dr. Hendricks Infectious Upgraded antibiotics Managed by ID doctors Prophylaxis SCD S/R/D/w Dr. Centeno - Date & Time Date: 10/25/16 Time: 17:24 <Stacey Centeno MD - Last Filed: 10/25/16 17:54> Meds - Medications Medications: Current Medications Acetaminophen (Tylenol 325mg Tab) 650 mg PO Q4 PRN PRN Reason: Fever >100.4 F Last Admin: 10/25/16 03:57 Dose: 650 mg Acetaminophen (Tylenol 650 Mg Supp) 650 mg RC Q4H PRN PRN Reason: Fever >100.4 F Benzocaine (Orajel Pm Maximum Strength) 0 gm MT QID PRN PRN Reason: Pain, moderate (4-7) Last Admin: 10/18/16 05:27 Dose: 1 dose Bismuth Subsalicylate (Pepto-Bismol) 262 mg PO BID [facility] Last Admin: 10/25/16 11:05 Dose: Not Given Collagenase (Santyl) 1 gm TOP BID [facility] Last Admin: 10/25/16 11:06 Dose: 2 applic Al Hydrox/Mg Hydrox/Simethicone 30 ml/Diphenhydramine HCl 75 mg/Lidocaine 30 ml 0 ml PO Q2H PRN PRN Reason: Mouth/Throat Pain Last Admin: 10/23/16 22:39 Dose: 10 ml Diphenhydramine HCl (Benadryl) 25 mg IVP Q4H PRN PRN Reason: Allergy symptoms Last Admin: 10/22/16 04:00 Dose: 25 mg Home Med (Home Med) 1 unit PO Q12H PRN PRN Reason: Inflammation Last Admin: 10/18/16 11:03 Dose: 1 unit Acyclovir 370 mg/ Sodium (Chloride) 100 mls @ 100 mls/hr IV DAILY RODRÍGUEZ PRN Reason: Protocol Last Admin: 10/25/16 11:04 Dose: 100 mls/hr Multivitamins/Vitamin C 10 ml/Chromium/Copper/Manganese/Zinc 1 ml/ Amino Acids/ Electrolytes/Dextrose 2,011 mls @ 83.792 mls/hr IV .Q24H [facility] Last Admin: 10/24/16 17:53 Dose: 83.792 mls/hr Meropenem 1g/NS 100mL IVPB (Meropenem 1g/Ns 100ml Ivpb) 1 gm in 100 mls @ 100 mls/hr IVPB Q12 [facility]UE[facility] PRN Reason: Protocol Stop: 11/01/16 06:01 Last Admin: 10/25/16 06:05 Dose: 100 mls/hr Sodium Chloride (Sodium Chloride 0.9%) 1,000 mls @ 40 mls/hr IV .Q24H [facility] Metoprolol Tartrate (Lopressor) 25 mg PO BID [facility] Last Admin: 10/25/16 11:03 Dose: 25 mg Metoprolol Tartrate (Lopressor) 5 mg IVP Q6H PRN PRN Reason: Sustained HR > 130 Last Admin: 10/25/16 01:36 Dose: 5 mg Morphine Sulfate (Morphine) 2 mg IVP Q3H PRN PRN Reason: Pain, severe (8-10) Last Admin: 10/25/16 17:40 Dose: 2 mg Multi-Ingredient Ointment (Hydrophor Oint) 0 gm TOP Q6H [facility] Last Admin: 10/25/16 15:21 Dose: 1 applic Octreotide Acetate (Sandostatin) 100 mcg SC Q8 [facility] Last Admin: 10/25/16 06:05 Dose: 100 mcg Petrolatum (Desitin Maximum Strength Topical 40% Oint) 1 gm TOP Q4H PRN PRN Reason: Rash Last Admin: 10/23/16 22:39 Dose: 1 applic Sucralfate (Carafate Oral Susp) 1 gm PO BID [facility] Last Admin: 10/25/16 11:04 Dose: 1 gm Throat Lozenges (Cepastat) 1 francis MT Q2H PRN PRN Reason: Sore Throat Last Admin: 10/22/16 22:01 Dose: 1 francis Results - Vital Signs Recent Vital Signs: Last Vital Signs Temp 97.9 F 10/25/16 17:12 Pulse 105 H 10/25/16 17:12 Resp 19 10/25/16 17:12 BP 122/78 10/25/16 17:12 Pulse Ox 96 10/25/16 09:22 - Labs Result Diagrams: 10/25/16 05:55 10/25/16 05:55 Labs: Laboratory Results - last 24 hr 10/25/16 10/25/16 10/25/16 02:10 02:10 05:55 WBC 9.0 10.5 RBC 2.73 L 2.29 L Hgb 8.0 L 7.1 L Hct 24.4 L 21.3 L MCV 89.4 93.0 MCH 29.3 31.0 MCHC 32.8 33.3 RDW 19.0 H 21.3 H Plt Count 145 134 MPV 12.9 H 12.9 H Gran % 83.1 H Lymph % (Auto) 8.1 L Bracken % (Auto) 8.5 H Eos % (Auto) 0.0 L Baso % (Auto) 0.3 Gran # 7.50 H Lymph # 0.7 L Bracken # 0.8 H Eos # 0.0 Baso # 0.03 pO2 160 H VBG pH 7.29 L VBG pCO2 39.0 L VBG HCO3 18.8 L VBG O2 Sat (Calc) 100.0 H VBG Base Excess -7.2 L Sodium Potassium Chloride Carbon Dioxide Anion Gap BUN Creatinine Est GFR ( Amer) Est GFR (Non-Af Amer) Random Glucose Calcium Phosphorus Magnesium Total Bilirubin AST ALT Alkaline Phosphatase Total Protein Albumin Globulin Albumin/Globulin Ratio Blood Type Antibody Screen Crossmatch BBK History Checked 10/25/16 10/25/16 05:55 05:55 WBC RBC Hgb Hct MCV MCH MCHC RDW Plt Count MPV Gran % Lymph % (Auto) Bracken % (Auto) Eos % (Auto) Baso % (Auto) Gran # Lymph # Bracken # Eos # Baso # pO2 VBG pH VBG pCO2 VBG HCO3 VBG O2 Sat (Calc) VBG Base Excess Sodium 144 Potassium 4.0 Chloride 119 H Carbon Dioxide 19 L Anion Gap 10 BUN 63 H Creatinine 1.4 Est GFR ( Amer) 46 Est GFR (Non-Af Amer) 38 Random Glucose 105 Calcium 7.2 L Phosphorus 4.9 H Magnesium 1.5 L Total Bilirubin 1.1 AST 15 ALT 28 Alkaline Phosphatase 89 Total Protein 4.5 L Albumin 1.7 L Globulin 2.8 Albumin/Globulin Ratio 0.6 L Blood Type A POSITIVE Antibody Screen Negative Crossmatch See Detail BBK History Checked Patient has bt Attending/Attestation - Attestation I have personally seen and examined this patient.: Yes I have fully participated in the care of the patient.: Yes I have reviewed all pertinent clinical information: Yes Notes (Text): 10/25/16 17:51 61 y/o W/ Colon CA who was previously in the ICU I was called to evaluate the patient due to HGB drop overnight Pt is hemodynamically stable and is not complaining of any SOB, Chest pain or pre-syncopal symptoms HGB dropped 1gm, PRBC to be transfused per primary team. Would need HGB > 7. Platelets > 20k INR< 2 CBC q 4-6 hrs. GI following along if there is a need to have EGD/ C-scope . PPI BID to be started. Recent radiation enteritis and pancytopenia. CT abd pelvis without any acute findings. Poor prognosis If patient worsens clinically please call the ICU back. cc time 55 min
--- NOTE | 2016-10-25 21:52 | PN ---
DATE: 10/25/2016 ADDENDUM: This is an addendum to the GI progress report dictated by Yoana Osei APN. The patient was seen and evaluated earlier today, discussed with the ____ . The patient has episodes of bright red blood per rectum. The patient did spike temperature overnight. We changed the diet t o clear liquid diet. The patient had a CT scan of the abdomen and pelvis was done with p.o. contrast requested. The patient was restarted on IV antibiotics. The patient is presently on Maxipime and v ancomycin. The patient is presently on meropenem. She did receive a dose of vancomycin earlier and cefepime. Octreotide has been on hold, we will discontinue the ____. The patient also found to have a partial small-bowel obstruction. The patient has a stricture proximal to the anastomosis. Contin ue to closely follow up hemoglobin, hematocrit, transfuse. We will continue to closely follow up the patient. The patient did have an endoscopy done earlier on previous admission, which revealed only esophagitis and gastritis. Colonoscopy revealed partially obstructing lesion just proximal to the an astomosis. The patient may need a surgical reevaluation. Followup of the hemoglobin, hematocrit and transfuse. Overall prognosis is guarded. Tong Null MD cc: [id number] TT: 10/25/2016 21:52:16 Confirmation # [id number] Dictation # [id number] kyle
[2016-10-25 22:30] LABS: BASO # 0.04 K/mm3 (0.0-2.0); BASO % 0.5 % (0.0-3.0); EOS % 0.1 % (1.5-5.0); GRAN # 6.42 (1.4-6.5); GRAN % 80.9 % (50.0-68.0); HEMOGLOBIN 9.9 gm/dL (12.0-16.0); LYMPH # 0.7 (1.2-3.4); LYMPH % 8.7 % (22.0-35.0); MEAN CELL VOLUME 91.5 fL (80.0-105.0); MEAN CORPUSCULAR HEMOGLOBIN 32.5 pg (25.0-35.0); MEAN CORPUSCULAR HGB CONC 35.5 g/dl (31.0-37.0); MONO # 0.8 (0.1-0.6); MONO % 9.8 % (1.0-6.0); PLATELET COUNT 97 10^3/uL (120.0-450.0); RBC 3.05 10^6/uL (3.5-6.1); RED CELL DISTRIBUTION WIDTH 18.5 % (11.5-14.5); WHITE BLOOD COUNT 7.9 10^3/ul (4.5-11.0)
--- NOTE | 2016-10-25 22:33 | PN ---
DATE: 10/25/[address] Hendricks. SUBJECTIVE: The patient is a 61-year-old female, seen lying awake in bed with reported bloody diarrh ea this morning for which the patient was followed by Dr. Null, Dr. Mccracken and evaluation by the olive brine tester with transfusion of 2 units of packed red blood cells to be done. CT scan was done. The patient is otherwise resting comfortably. She is status post treatment for her colorectal CA s tage IV with treatment for neutropenic sepsis with radiation being given. With this, the patient is now resting comfortably with the patient otherwise in no acute distress. As an addendum, the patient was evaluated by Stacey Centeno M.D. olive brine tester who did not believe the pat ient qualified for intensive care unit followup, one is referred to his note. OBJECTIVE: PHYSICAL EXAMINATION: VITAL SIGNS: Temperature 97.4, earlier in the day her temperature was 103____ with improvement as went by. Pulse 82, respirations 17, blood pressure 120/78 with a pulse ox of 96%. GENERAL: She appears pale. HEENT: Tongue is dry. NECK: Supple. HEART: Tachy rate, regular rhythm. LUNGS: Clear. ABDOMEN: Soft, nontender. EXTREMITIES: +1 edema. NEUROLOGIC: Somnolent but arousable. SKIN: Warm, dry with a decubitus ulcer on her backside. LABORATORY DATA: The patient's labs were done. White blood cell count 10.5, hemoglobin 7.1, hematoc rit of 21.3, platelet count of 134,000 with a chem metabolic panel showing a BUN of 62 with a normal creatinine pf 1.4, calcium 7.2, magnesium 1.5, total protein 4.5. INR yesterday 1.29. The patient's C. difficile was negative on 10/19/2016 with blood cultures done last night; they are now pending. The patient had a CT scan of her abdomen and pelvis done earlier today as per Dr. Null with the i mpression that of no significant change in pattern of partial small-bowel obstruction, multiple dilat ed loops seen with a maximum diameter of 5 cm, distal small bowel loops are normal in caliber, lytic lesion of the right sacral ala unchanged. The patient had a chest x-ray done earlier today. It was read as no active disease. The patient was seen by a student who discussed the case with Dr. Mccracken, with one referred to h is note. The patient did receive 2 units of packed red blood cells and oxygen is on. ASSESSMENT: Symptomatic anemia, rectal bleed, stage IV cancer of the colon, decubitus ulcer, history neutropenic sepsis, thrombocytopenia, acute renal failure, partial small-bowel obstruction, cauda eq uina syndrome, gastroesophageal reflux disease, malnutrition, deconditioning, hypoalbuminemia, mucosi tis. PLAN: The plan with her spike of temperature today was to have the followup with the infectious dise ase oracle identity management consultant with surgeon and consider transfer to the intensive care unit, which was done with rec ommendations for continuation of the present plan, which was to transfuse blood, which we did. We wi ll monitor her clinically and check her labs again in the morning. Will monitor clinically with prog nosis for this patient guarded. She also continues on hyperal and antibiotics with her supportive ca re to continue with reconditioning eventually to be done with the patient to be out of bed once she i s stable. Sandostatin is now on hold. Tomasz Winters MD cc: [phone] TT: 10/25/2016 22:32:15 Confirmation # [id number] Dictation # [id number] kyle
[2016-10-26] MEDS: Sodium Chloride 0.9% 1,000 ML IV SCH ×2 (00:37→20:00)
[2016-10-26] MEDS: Morphine 2 mg/ml ISec IVP PRN ×4 (03:30→12:54)
[2016-10-26] MEDS: Petrolatum-Mineral Oil Oint (100gm) TOP SCH ×4 (05:32→21:00)
[2016-10-26 07:29] LABS: INR 1.26 (0.93-1.08); PARTIAL THROMBOPLASTIN TIME 33.1 Seconds (23.7-30.8); PROTHROMBIN TIME 13.6 Seconds (9.9-11.8)
[2016-10-26 07:35] LABS: ALB/GLOB RATIO 0.7 (1.1-1.8); ALBUMIN 1.7 g/dL (3.0-4.8); CALCIUM 7.4 mg/dL (8.4-10.5); MAGNESIUM 1.5 mg/dL (1.7-2.2)
[2016-10-26 07:56] LABS: MEAN CELL VOLUME 87.2 fL (80.0-105.0); MEAN CORPUSCULAR HEMOGLOBIN 29.8 pg (25.0-35.0); MEAN CORPUSCULAR HGB CONC 34.2 g/dl (31.0-37.0); MEAN PLATELET VOLUME 12.3 fl (7.0-11.0); RBC 2.65 10^6/uL (3.5-6.1); RED CELL DISTRIBUTION WIDTH 17.2 % (11.5-14.5); WHITE BLOOD COUNT 8.3 10^3/ul (4.5-11.0)
[2016-10-26 08:04] LABS: HEMOGLOBIN 7.9 gm/dL (12.0-16.0)
[2016-10-26] MEDS: Sucralfate 1 gm/10 ml Oral Susp UD PO SCH ×2 (09:48→19:05)
[2016-10-26] MEDS: Aluminum Hydroxide/Magnesium 30 ML, DiphenhydrAMINE 75 MG, Lidocaine 2% Viscous 30 ML PO PRN (09:49)
[2016-10-26] MEDS: Collagenase 250 Units/gm Ointment(30 gm) TOP SCH ×2 (09:50→19:05)
[2016-10-26] MEDS: Bismuth Subsalicylate 262 mg/15 ml Sus (240 ml) PO SCH ×2 (09:50→19:05)
[2016-10-26] MEDS: Meropenem 1g/NS 100mL IVPB 1 GM/100 ML PIGGYBACK IVPB SCH ×2 (09:52→22:43)
[2016-10-26] MEDS ORDERED: Phytonadione 10 MG in Sodium Chloride 0.9% 50 ML IV ONE (10:00)
--- NOTE | 2016-10-26 11:34 | PN ---
DATE: 10/25/2016 SUBJECTIVE: The patient is seen lying in bed. She is fatigued, she reports abdominal pain is better . She is still having dark stools. She received 2 units of PRBC yesterday. She appears depressed. PHYSICAL EXAMINATION: VITAL SIGNS: Blood pressure 121/66, heart rate 82, respiratory rate 20, temperature 98.5. HEENT: Normocephalic, atraumatic. NECK: Positive pallor. NECK: Supple, no JVD. LUNGS: Bilateral equal air entry, bilateral rhonchi. CARDIAC: S1, S2, regular rate and rhythm, no murmur, no rub. ABDOMEN: Obese, distended, tenderness in the lower abdomen, bowel sounds present. EXTREMITIES: 2+ pitting edema of the lower extremities. INTAKE AND OUTPUT: 9840/975. LABORATORY DATA: WBC 8.3, hemoglobin 7.9, hematocrit 23, platelets 93. Sodium 145, potassium 3.7, c hloride 120, CO2 20, BUN 66, creatinine 1.4, glucose 123, calcium 7.4, phosphorus 6.1, magnesium 1.5, albumin 1.7. CURRENT MEDICATIONS: Acyclovir, Benadryl, Carafate, Lopressor 25 b.i.d., meropenem, hyperal, Sandost atin, Santyl, normal saline at 40, Tylenol, vitamin K given yesterday and today. ASSESSMENT AND PLAN: 1. Acute kidney injury superimposed on chronic kidney disease stage III, resolved acute kidney injur y for the most part. 2. Severe anemia, gastrointestinal bleed. 3. Colon cancer with bone metastases. 4. Severe hypoalbuminemia. 5. Hypokalemia. 6. Hyperphosphatemia. PLAN: 1. The patient received 2 units of blood yesterday, hemoglobin is down to 7.9 again. Continue to mo nitor serial hemoglobin and hematocrit. 2. Reduce phosphorous in the hyperal. 3. Repeat CT scan of the abdomen that was done yesterday showed partial small-bowel obstruction, mul tiple dilated bowel loops. 4. Gastrointestinal followup, note read and appreciated. The patient has a partially obstructing co lonic lesion. Prognosis is grim. Adele Griffin MD cc: [phone] TT: 10/26/2016 11:34:02 Confirmation # [id number] Dictation # [id number] jn
--- NOTE | 2016-10-26 16:21 | CP.PCM.PN ---
<Joycelyn Galeas - Last Filed: 10/26/16 16:17> Subjective - Date & Time of Evaluation Date of Evaluation: 10/26/16 Time of Evaluation: 16:17 - Subjective Subjective: General Surgery. - Dr. Mccracken Pt S&E. Nursing reports that overnight pt had another episode of bloody stool. She received 2U FFP and 2 U PRBC yesterday. This morning Hgb continues to drop, currently is 7.9. Pt. states that she has no appetite and is trying her best to eat. She denies any abdominal pain. No F/C, SOB/Cp. Objective - Vital Signs/Intake and Output Vital Signs (last 24 hours): Temp Pulse Resp BP Pulse Ox 98.6 F 72 18 122/78 100 10/26/16 16:15 10/26/16 16:15 10/26/16 16:15 10/26/16 16:15 10/26/16 06:00 Intake and Output: 10/26/16 10/26/16 06:59 18:59 Intake Total 360 1170 Output Total 600 Balance -240 1170 - Medications Medications: Current Medications Acetaminophen (Tylenol 325mg Tab) 650 mg PO Q4 PRN PRN Reason: Fever >100.4 F Last Admin: 10/25/16 03:57 Dose: 650 mg Acetaminophen (Tylenol 650 Mg Supp) 650 mg RC Q4H PRN PRN Reason: Fever >100.4 F Benzocaine (Orajel Pm Maximum Strength) 0 gm MT QID PRN PRN Reason: Pain, moderate (4-7) Last Admin: 10/18/16 05:27 Dose: 1 dose Bismuth Subsalicylate (Pepto-Bismol) 262 mg PO BID [facility] Last Admin: 10/26/16 09:50 Dose: Not Given Collagenase (Santyl) 1 gm TOP BID [facility] Last Admin: 10/26/16 09:50 Dose: 1 applic Al Hydrox/Mg Hydrox/Simethicone 30 ml/Diphenhydramine HCl 75 mg/Lidocaine 30 ml 0 ml PO Q2H PRN PRN Reason: Mouth/Throat Pain Last Admin: 10/26/16 09:49 Dose: 5 ml Diphenhydramine HCl (Benadryl) 25 mg IVP Q4H PRN PRN Reason: Allergy symptoms Last Admin: 10/22/16 04:00 Dose: 25 mg Home Med (Home Med) 1 unit PO Q12H PRN PRN Reason: Inflammation Last Admin: 10/18/16 11:03 Dose: 1 unit Acyclovir 370 mg/ Sodium (Chloride) 100 mls @ 100 mls/hr IV DAILY [facility] PRN Reason: Protocol Last Admin: 10/26/16 09:49 Dose: 100 mls/hr Meropenem 1g/NS 100mL IVPB (Meropenem 1g/Ns 100ml Ivpb) 1 gm in 100 mls @ 100 mls/hr IVPB Q12 [facility] PRN Reason: Protocol Stop: 11/01/16 06:01 Last Admin: 10/26/16 09:52 Dose: 100 mls/hr Sodium Chloride (Sodium Chloride 0.9%) 1,000 mls @ 40 mls/hr IV .Q24H [facility] Last Admin: 10/26/16 00:37 Dose: 40 mls/hr Multivitamins/Vitamin C 10 ml/Chromium/Copper/Manganese/Zinc 1 ml/ Amino Acids 2,011 mls @ 83.792 mls/hr IV .Q24H [facility] Fat Emulsion Intravenous (Intralipid 20%) 250 mls @ 21 mls/hr IV DAILY@1800 [facility] Metoprolol Tartrate (Lopressor) 25 mg PO BID [facility] Last Admin: 10/26/16 09:50 Dose: Not Given Metoprolol Tartrate (Lopressor) 5 mg IVP Q6H PRN PRN Reason: Sustained HR > 130 Last Admin: 10/25/16 01:36 Dose: 5 mg Morphine Sulfate (Morphine) 4 mg IV Q3 PRN PRN Reason: Pain, severe (8-10) Multi-Ingredient Ointment (Hydrophor Oint) 0 gm TOP Q6H [facility] Last Admin: 10/26/16 09:50 Dose: 2 applic Octreotide Acetate (Sandostatin) 100 mcg SC Q8 [facility] Last Admin: 10/25/16 06:05 Dose: 100 mcg Petrolatum (Desitin Maximum Strength Topical 40% Oint) 1 gm TOP Q4H PRN PRN Reason: Rash Last Admin: 10/23/16 22:39 Dose: 1 applic Sucralfate (Carafate Oral Susp) 1 gm PO BID [facility] Last Admin: 10/26/16 09:48 Dose: 1 gm Throat Lozenges (Cepastat) 1 francis MT Q2H PRN PRN Reason: Sore Throat Last Admin: 10/22/16 22:01 Dose: 1 francis - Labs Labs: 10/26/16 06:24 10/26/16 06:24 PT 13.6 Seconds (9.9-11.8) H 10/26/16 06:24 INR 1.26 (0.93-1.08) H 10/26/16 06:24 APTT 33.1 Seconds (23.7-30.8) H 10/26/16 06:24 - Constitutional Appears: No Acute Distress - Head Exam Head Exam: ATRAUMATIC, NORMAL INSPECTION, NORMOCEPHALIC - Respiratory Exam Respiratory Exam: NORMAL BREATHING PATTERN. absent: Respiratory Distress - Cardiovascular Exam Cardiovascular Exam: REGULAR RHYTHM - GI/Abdominal Exam GI & Abdominal Exam: Soft. absent: Distended, Guarding, Tenderness - Neurological Exam Neurological Exam: Alert, Oriented x3 - Psychiatric Exam Psychiatric exam: Flat Affect - Skin Skin Exam: Dry, Intact Assessment and Plan - Assessment and Plan (Free Text) Assessment: 61F s/p LAR in 2015 with recurrent mass, with lower GI bleed Plan: Continue Transfusions prn, F/U Repeat H/H GI to take for sigmoidoscopy today Recc. ICU if bleeding persists Will Follow closely w/ you DW Dr Kaykay Galeas, PGY2 <Yoan Mccracken - Last Filed: 12/02/16 23:42> Objective - Vital Signs/Intake and Output Vital Signs (last 24 hours): Temp Pulse Resp BP Pulse Ox 97.8 F 101 H 18 170/89 H 100 12/02/16 16:00 12/02/16 16:00 12/02/16 16:00 12/02/16 16:00 12/02/16 16:00 Intake and Output: 12/02/16 12/03/16 18:59 06:59 Intake Total 120 Output Total 450 600 Balance -450 -480 - Medications Medications: Current Medications Acetaminophen (Tylenol 650 Mg Supp) 650 mg RC Q4H PRN PRN Reason: Fever >100.4 F Last Admin: 11/01/16 21:18 Dose: 650 mg Al Hydrox/Mg Hydrox/Simethicone 30 ml/Diphenhydramine HCl 75 mg/Lidocaine 30 ml 0 ml PO QID [facility] Last Admin: 12/02/16 21:01 Dose: Not Given Diphenhydramine HCl (Benadryl) 50 mg IVP HS PRN PRN Reason: Insomnia Last Admin: 11/27/16 01:00 Dose: 50 mg Ergocalciferol (Drisdol 50,000 Intl Units Cap) 1 cap PO Q7D [facility] Last Admin: 11/19/16 18:04 Dose: Not Given Ferrous Sulfate (Feosol) 324 mg PO TID [facility] Last Admin: 12/02/16 18:16 Dose: Not Given Fluconazole (Diflucan) 200 mg PO DAILY [facility] PRN Reason: Protocol Stop: 12/12/16 10:01 Last Admin: 12/02/16 09:44 Dose: Not Given Home Med (Home Med) 1 unit PO Q12H PRN PRN Reason: Inflammation Last Admin: 10/18/16 11:03 Dose: 1 unit Hydralazine HCl (Apresoline) 10 mg IVP Q4H PRN PRN Reason: Systolic Blood Pressure Hydromorphone HCl (Dilaudid) 1 mg IVP Q1H PRN PRN Reason: Pain, moderate (4-7) Last Admin: 12/02/16 21:06 Dose: 1 mg Levetiracetam (Keppra 500mg Ivpb) 500 mg in 100 mls @ 400 mls/hr IV Q12 [facility] Last Admin: 12/02/16 21:06 Dose: 400 mls/hr Potassium Chloride/Dextrose (Potassium Chl 40 Meq In D5w) 1,000 mls @ 60 mls/ hr IV .[id number] [facility] Last Admin: 12/02/16 18:17 Dose: Not Given Magnesium Hydroxide (Milk Of Magnesia) 30 ml PO DAILY PRN PRN Reason: skin irritation Last Admin: 12/02/16 14:09 Dose: 30 ml Magnesium Oxide (Mag-Ox) 400 mg PO BID [facility] Last Admin: 12/02/16 18:16 Dose: Not Given Multi-Ingredient Ointment (Hydrophor Oint) 0 gm TOP Q6H PRN PRN Reason: Dry lip Multivitamins (Thera Tab) 1 tab PO 0800 [facility] Last Admin: 12/02/16 08:10 Dose: Not Given Propranolol HCl (Inderal La) 120 mg PO DAILY [facility] Last Admin: 12/02/16 09:44 Dose: Not Given Sucralfate (Carafate Oral Susp) 1 gm PO BID [facility] Last Admin: 12/02/16 18:16 Dose: Not Given - Labs Labs: 12/02/16 06:00 12/02/16 06:00 PT 12.9 Seconds (9.9-11.8) H 12/02/16 06:00 INR 1.19 (0.93-1.08) H 12/02/16 06:00 APTT 32.9 Seconds (23.7-30.8) H 12/02/16 06:00 Assessment and Plan - Assessment and Plan (Free Text) Plan: Patient was seen and examined by me. I agree with assessment and plan as per resident's note.
[2016-10-26 16:29] LABS: ALB/GLOB RATIO 0.7 (1.1-1.8); ALBUMIN 1.8 g/dL (3.0-4.8); CALCIUM 7.4 mg/dL (8.4-10.5)
--- NOTE | 2016-10-26 17:16 | CP.PCM.PN ---
Subjective - Date & Time of Evaluation Date of Evaluation: 10/26/16 Time of Evaluation: 15:00 - Subjective Subjective: Alert, oriented. Complains of weakness, poor appetite. Objective - Vital Signs/Intake and Output Vital Signs (last 24 hours): Temp Pulse Resp BP Pulse Ox 98.6 F 72 18 122/78 100 10/26/16 16:15 10/26/16 16:15 10/26/16 16:15 10/26/16 16:15 10/26/16 06:00 Intake and Output: 10/26/16 10/26/16 06:59 18:59 Intake Total 360 1170 Output Total 600 Balance -240 1170 - Medications Medications: Current Medications Acetaminophen (Tylenol 325mg Tab) 650 mg PO Q4 PRN PRN Reason: Fever >100.4 F Last Admin: 10/25/16 03:57 Dose: 650 mg Acetaminophen (Tylenol 650 Mg Supp) 650 mg RC Q4H PRN PRN Reason: Fever >100.4 F Benzocaine (Orajel Pm Maximum Strength) 0 gm MT QID PRN PRN Reason: Pain, moderate (4-7) Last Admin: 10/18/16 05:27 Dose: 1 dose Bismuth Subsalicylate (Pepto-Bismol) 262 mg PO BID [facility] Last Admin: 10/26/16 09:50 Dose: Not Given Collagenase (Santyl) 1 gm TOP BID [facility] Last Admin: 10/26/16 09:50 Dose: 1 applic Al Hydrox/Mg Hydrox/Simethicone 30 ml/Diphenhydramine HCl 75 mg/Lidocaine 30 ml 0 ml PO Q2H PRN PRN Reason: Mouth/Throat Pain Last Admin: 10/26/16 09:49 Dose: 5 ml Diphenhydramine HCl (Benadryl) 25 mg IVP Q4H PRN PRN Reason: Allergy symptoms Last Admin: 10/22/16 04:00 Dose: 25 mg Home Med (Home Med) 1 unit PO Q12H PRN PRN Reason: Inflammation Last Admin: 10/18/16 11:03 Dose: 1 unit Acyclovir 370 mg/ Sodium (Chloride) 100 mls @ 100 mls/hr IV DAILY [facility] PRN Reason: Protocol Last Admin: 10/26/16 09:49 Dose: 100 mls/hr Meropenem 1g/NS 100mL IVPB (Meropenem 1g/Ns 100ml Ivpb) 1 gm in 100 mls @ 100 mls/hr IVPB Q12 [facility] PRN Reason: Protocol Stop: 11/01/16 06:01 Last Admin: 10/26/16 09:52 Dose: 100 mls/hr Sodium Chloride (Sodium Chloride 0.9%) 1,000 mls @ 40 mls/hr IV .Q24H [facility] Last Admin: 10/26/16 00:37 Dose: 40 mls/hr Multivitamins/Vitamin C 10 ml/Chromium/Copper/Manganese/Zinc 1 ml/ Amino Acids 2,011 mls @ 83.792 mls/hr IV .Q24H [facility] Fat Emulsion Intravenous (Intralipid 20%) 250 mls @ 21 mls/hr IV DAILY@1800 [facility] Metoprolol Tartrate (Lopressor) 25 mg PO BID [facility] Last Admin: 10/26/16 09:50 Dose: Not Given Metoprolol Tartrate (Lopressor) 5 mg IVP Q6H PRN PRN Reason: Sustained HR > 130 Last Admin: 10/25/16 01:36 Dose: 5 mg Morphine Sulfate (Morphine) 4 mg IV Q3 PRN PRN Reason: Pain, severe (8-10) Multi-Ingredient Ointment (Hydrophor Oint) 0 gm TOP Q6H [facility] Last Admin: 10/26/16 15:47 Dose: Not Given Octreotide Acetate (Sandostatin) 100 mcg SC Q8 [facility] Last Admin: 10/25/16 06:05 Dose: 100 mcg Petrolatum (Desitin Maximum Strength Topical 40% Oint) 1 gm TOP Q4H PRN PRN Reason: Rash Last Admin: 10/23/16 22:39 Dose: 1 applic Sucralfate (Carafate Oral Susp) 1 gm PO BID [facility] Last Admin: 10/26/16 09:48 Dose: 1 gm Throat Lozenges (Cepastat) 1 francis MT Q2H PRN PRN Reason: Sore Throat Last Admin: 10/22/16 22:01 Dose: 1 francis - Labs Labs: 10/26/16 06:24 10/26/16 16:00 PT 13.6 Seconds (9.9-11.8) H 10/26/16 06:24 INR 1.26 (0.93-1.08) H 10/26/16 06:24 APTT 33.1 Seconds (23.7-30.8) H 10/26/16 06:24 - Constitutional Appears: Cachectic, Chronically Ill - Head Exam Head Exam: NORMOCEPHALIC - Eye Exam Eye Exam: Normal appearance, PERRL - ENT Exam ENT Exam: Mucous Membranes Moist - Respiratory Exam Respiratory Exam: Decreased Breath Sounds, NORMAL BREATHING PATTERN - Cardiovascular Exam Cardiovascular Exam: REGULAR RHYTHM, +S1, +S2 - GI/Abdominal Exam GI & Abdominal Exam: Soft, Diminished Bowel Sounds - Extremities Exam Extremities Exam: Normal Capillary Refill Additional comments: 2+ bilateral lower extremity edema - Neurological Exam Neurological Exam: Alert, Oriented x3 - Psychiatric Exam Psychiatric exam: Normal Affect - Skin Skin Exam: Dry, Pallor Assessment and Plan - Assessment and Plan (Free Text) Assessment: 61 year old female with stage IV colon cancer, sigmoid mass,partial small bowel obstruction, rectal bleeding, anemia, right sacral lytic lesion, resolving mucositis, s/p neutropenic sepsis, s/p chemo/radiation therapy. I was asked to speak to this patient about goals of care and advance care planning. The patient is aware that her colon cancer is in advanced stages. She is hopeful that disease can be controlled. She understands that she is going for sigmoidoscopy in order to try and determine source of bleeding. She understands that colon resection may be offered as an intervention as well. She understands the risks of both procedures. She states she is willing to take the risk. I reminded her that she is still very weak and debilitated. I spoke to her specifically about resuscitation wishes. She states she is willing to be intubated and have CPR. Ramifications of aggressive resuscitation explained in detail. When asked if she would want assistant terminal manager ventilator support, tracheotomy and PEG she was unsure. I encouraged her to have this discussion with her family. Her mother was at bedside during this conversation. Mother supportive, but very tearful.Psychosocial support given. Time spent in goals of care discussion and advance care counseling, 30 minutes. Plan: Will assist with establishing future goals of care and additional advance care planning
[2016-10-26] MEDS ORDERED: Propofol 10 mg/ml Inj (20 ML) ONE (18:08)
[2016-10-26] MEDS ORDERED: Midazolam 2 MG/2 ML VIAL ONE (18:08)
[2016-10-26 18:19] LABS: HEMOGLOBIN 11.3 gm/dL (12.0-16.0); MEAN CELL VOLUME 92.6 fL (80.0-105.0); MEAN CORPUSCULAR HEMOGLOBIN 34.9 pg (25.0-35.0); MEAN CORPUSCULAR HGB CONC 37.7 g/dl (31.0-37.0); MEAN PLATELET VOLUME 13.5 fl (7.0-11.0); RBC 3.24 10^6/uL (3.5-6.1); RED CELL DISTRIBUTION WIDTH 18.5 % (11.5-14.5); WHITE BLOOD COUNT 11.6 10^3/ul (4.5-11.0)
--- NOTE | 2016-10-26 18:21 | PN ---
DATE: 10/26/2016 LOCATION: The patient is in room 364, bed 2. SUBJECTIVE: The patient is seen lying in bed. She appears fatigued, says the abdominal pain is bett er, still has difficulty in swallowing with burning and pain and odynophagia still noted. The patien t tells me that she had intermittent brown stool, but again had some dark stools and hemoglobin despi te getting 2 units of blood yesterday has dropped to 7.9 today. The patient is depressed and she fee ls that she is taking 1 step forward and 10 steps backwards. PHYSICAL EXAMINATION: VITAL SIGNS: Stable. Blood pressure is 121/66, heart rate is 82, respirations 20, T-max is 98.4. HEENT: Head is normocephalic, atraumatic. Conjunctivae pale. Sclerae are anicteric. Pupils are e qually reactive to light and accommodation. Examination of the oropharynx reveals tongue to be moist . No oropharyngeal lesions are noted. NECK: Supple. There is no adenopathy. No jugular venous distention is noted. LUNGS: Clear to percussion and auscultation without any wheezes or rhonchi. HEART: Reveals S1 and S2 to be normal. No gallop or murmur is heard. ABDOMEN: Mildly distended with tenderness in the right lower quadrant. Hyperactive bowel sounds are heard. EXTREMITIES: Reveal 2+ edema of the lower extremities. The patient has edema of the upper extremiti es as well. LABORATORY DATA: Reveals a white count of 8.3, hemoglobin 7.9, hematocrit 23, platelet count 93. So dium is 145, K is 3.7, chloride 120, CO2 is 20, BUN 66, creatinine is 1.4, glucose is 123, calcium is 7.4, phosphorus 6.1, magnesium is 1.5. Albumin is 1.7. CURRENT MEDICATIONS: Include acyclovir, Benadryl, Carafate, Lopressor, meropenem, sandostatin, Santyl, normal saline at 40 mL an hour, Tylenol, vitamin K given yesterday and today. ASSESSMENT NOTES AND PLAN: The patient has acute bleeding from the recurrent tumor in the lower end of the rectosigmoid, where she had the stenotic lesion that was documented in the recent past before she was started on chemotherapy. The bleeding is most is the source of her upper endoscopy duri ng the last admission was negative. 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 PLAN: The patient has received 2 units of blood besides the 7.9 hemoglobin this morning, and patient is going to be set up for an endoscopy and a sigmoidoscopy later on this afternoon. Repeat CAT scan of the abdomen and pelvis with oral contrast showed partial small-bowel obstruction, multiple dilate d loops of bowel but no evidence of perforation. Gastrointestinal followup with GI, Dr. Null, is requested, who is planning to do the procedure. I spoke to Dr. Mccracken as well, the surgeon, [place] told me that he had mixed feelings when he spoke to the patient and so I had a detailed discussion with the patient this morning. I told her what the prognosis is, told her also that it is eventually likely that she will need either a permanent or spanning temporary colostomy if we have to attack th e problem in the rectum, which is, of course, for the significant bleed. Primary resection may be fe asible once we tune her up so that then we can face the further treatment plans for her metastatic ca ncer. Acutely, this has to be resolved and I told her she has to make up her mind. The patient after discussion with her mom, who was also present during this entire conversation, agreed that she does not want to yet. She wants to be as aggressive as possible and she is going to allow us to at le ast do with pertinent testing that is needed, including surgical options. She does not want to be DN R/DNI at this point in time. did speak to her independently from the palliative care point of view so as to not the patient. Routine post exam instructions have been given to the patient. Will await and try to collate all this information with the parts counter clerk as well, who is on board with the case. Routine post exam instructions have been given to the patient. Kedar Hendricks MD cc: [id number] TT: 10/26/2016 18:20:51 Confirmation # [id number] Dictation # [id number] ln
[2016-10-26] MEDS: MULTIVITAMIN IV SCH (20:00)
[2016-10-26] MEDS: [UNRECOGNIZED DRUG - OTHER] IV SCH (20:00)
[2016-10-26] MEDS: AMINO IV SCH (20:00)
[2016-10-26] MEDS: TRACE ELEMENTS IV SCH (20:00)
[2016-10-26] MEDS: Fat Emulsion 20% IV 250 ML IV SCH (20:00)
[2016-10-26] MEDS: DEXT IV SCH (20:00)
[2016-10-26] MEDS: Morphine 4 mg/ml ISec IV PRN (22:20)
--- NOTE | 2016-10-26 22:47 | CP.PCM.PN ---
Subjective - Date & Time of Evaluation Date of Evaluation: 10/26/16 Time of Evaluation: 23:30 - Subjective Subjective: Patient doing ok after procedure. She complains of intermittent abdominal "soarness". No bloody stool after procedure, per patient. Esophageal biopsy done. Sigmoidscope couldn't be advanced past 10cm due to stricture. Objective - Vital Signs/Intake and Output Vital Signs (last 24 hours): Temp Pulse Resp BP Pulse Ox 98.4 F 71 16 143/74 100 10/26/16 19:44 10/26/16 19:44 10/26/16 19:44 10/26/16 19:44 10/26/16 19:44 Intake and Output: 10/26/16 10/27/16 18:59 06:59 Intake Total 1170 Balance 1170 - Medications Medications: Current Medications Acetaminophen (Tylenol 325mg Tab) 650 mg PO Q4 PRN PRN Reason: Fever >100.4 F Last Admin: 10/25/16 03:57 Dose: 650 mg Acetaminophen (Tylenol 650 Mg Supp) 650 mg RC Q4H PRN PRN Reason: Fever >100.4 F Benzocaine (Orajel Pm Maximum Strength) 0 gm MT QID PRN PRN Reason: Pain, moderate (4-7) Last Admin: 10/18/16 05:27 Dose: 1 dose Bismuth Subsalicylate (Pepto-Bismol) 262 mg PO BID [facility] Last Admin: 10/26/16 19:05 Dose: Not Given Collagenase (Santyl) 1 gm TOP BID [facility] Last Admin: 10/26/16 19:05 Dose: Not Given Al Hydrox/Mg Hydrox/Simethicone 30 ml/Diphenhydramine HCl 75 mg/Lidocaine 30 ml 0 ml PO Q2H PRN PRN Reason: Mouth/Throat Pain Last Admin: 10/26/16 09:49 Dose: 5 ml Diphenhydramine HCl (Benadryl) 25 mg IVP Q4H PRN PRN Reason: Allergy symptoms Last Admin: 10/22/16 04:00 Dose: 25 mg Home Med (Home Med) 1 unit PO Q12H PRN PRN Reason: Inflammation Last Admin: 10/18/16 11:03 Dose: 1 unit Acyclovir 370 mg/ Sodium (Chloride) 100 mls @ 100 mls/hr IV DAILY [facility] PRN Reason: Protocol Last Admin: 10/26/16 09:49 Dose: 100 mls/hr Meropenem 1g/NS 100mL IVPB (Meropenem 1g/Ns 100ml Ivpb) 1 gm in 100 mls @ 100 mls/hr IVPB Q12 [facility] PRN Reason: Protocol Stop: 11/01/16 06:01 Last Admin: 10/26/16 09:52 Dose: 100 mls/hr Sodium Chloride (Sodium Chloride 0.9%) 1,000 mls @ 40 mls/hr IV .Q24H [facility] Last Admin: 10/26/16 00:37 Dose: 40 mls/hr Multivitamins/Vitamin C 10 ml/Chromium/Copper/Manganese/Zinc 1 ml/ Amino Acids 2,011 mls @ 83.792 mls/hr IV .Q24H [facility] Fat Emulsion Intravenous (Intralipid 20%) 250 mls @ 21 mls/hr IV DAILY@1800 [facility] Sodium Chloride (Sodium Chloride 0.9%) 1,000 mls @ 100 mls/hr IV .Q10H [facility] Metoprolol Tartrate (Lopressor) 25 mg PO BID [facility] Last Admin: 10/26/16 19:05 Dose: Not Given Metoprolol Tartrate (Lopressor) 5 mg IVP Q6H PRN PRN Reason: Sustained HR > 130 Last Admin: 10/25/16 01:36 Dose: 5 mg Morphine Sulfate (Morphine) 4 mg IV Q3 PRN PRN Reason: Pain, severe (8-10) Last Admin: 10/26/16 22:20 Dose: 4 mg Multi-Ingredient Ointment (Hydrophor Oint) 0 gm TOP Q6H [facility] Last Admin: 10/26/16 15:47 Dose: Not Given Octreotide Acetate (Sandostatin) 100 mcg SC Q8 [facility] Last Admin: 10/25/16 06:05 Dose: 100 mcg Petrolatum (Desitin Maximum Strength Topical 40% Oint) 1 gm TOP Q4H PRN PRN Reason: Rash Last Admin: 10/23/16 22:39 Dose: 1 applic Sucralfate (Carafate Oral Susp) 1 gm PO BID [facility] Last Admin: 10/26/16 19:05 Dose: Not Given Throat Lozenges (Cepastat) 1 francis MT Q2H PRN PRN Reason: Sore Throat Last Admin: 10/22/16 22:01 Dose: 1 francis - Labs Labs: 10/26/16 16:00 10/26/16 16:00 PT 13.6 Seconds (9.9-11.8) H 10/26/16 06:24 INR 1.26 (0.93-1.08) H 10/26/16 06:24 APTT 33.1 Seconds (23.7-30.8) H 10/26/16 06:24 - Constitutional Appears: No Acute Distress, Older Than Stated Age, Agitated, Chronically Ill - ENT Exam ENT Exam: Mucous Membranes Dry - Respiratory Exam Respiratory Exam: Clear to Ausculation Bilateral, NORMAL BREATHING PATTERN - Cardiovascular Exam Cardiovascular Exam: REGULAR RHYTHM, +S1, +S2. absent: Murmur - GI/Abdominal Exam Additional comments: Mild tenderness to deep palpation around umbilicus; No rebound tenderness; normal bowel sounds - Rectal Exam Rectal Exam: Deferred - Neurological Exam Additional comments: Grossly normal Assessment and Plan - Assessment and Plan (Free Text) Assessment: The patient is a 61 year old woman with a PMH of stage IV colon CA s/p colectomy reversal s/p FOLFOX-6 chemotherapy regimen x2 with Neulasta afterwards (on 10/05/16 and s/p XRT for sacral metastasis), admitted on 10/09 for diarrhea. 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 Resolved s/p 2 uRBC, 1 FFP, 2 plts. Urine culture positive for E coli. C.diff negative for toxin and antigen. Due to bloody stool had EGD done yesterday with biopsy. Sigmoidoscopy also attempted but couldn't be advanced past 10cm due to severe stricture. No bleeding post procedure. Continues to have stable vitals signs and stable H/H. She is therefore still ok to remain on the tele jo for now. Will continue to follow patient.
[2016-10-27] MEDS: Morphine 4 mg/ml ISec IV PRN ×6 (01:49→21:55)
--- NOTE | 2016-10-27 03:10 | CP.PCM.PN ---
Subjective - Date & Time of Evaluation Date of Evaluation: 10/27/16 Time of Evaluation: 03:09 - Subjective Subjective: # 24 angiocath was inserted in left hand dorsum at base of index finger. Dx:Poor venous access. Objective - Vital Signs/Intake and Output Vital Signs (last 24 hours): Temp Pulse Resp BP Pulse Ox 98.4 F 71 16 143/74 100 10/26/16 19:44 10/26/16 19:44 10/26/16 19:44 10/26/16 19:44 10/26/16 19:44 Intake and Output: 10/26/16 10/27/16 18:59 06:59 Intake Total 1170 Output Total 400 Balance 1170 -400 - Medications Medications: Current Medications Acetaminophen (Tylenol 325mg Tab) 650 mg PO Q4 PRN PRN Reason: Fever >100.4 F Last Admin: 10/25/16 03:57 Dose: 650 mg Acetaminophen (Tylenol 650 Mg Supp) 650 mg RC Q4H PRN PRN Reason: Fever >100.4 F Benzocaine (Orajel Pm Maximum Strength) 0 gm MT QID PRN PRN Reason: Pain, moderate (4-7) Last Admin: 10/18/16 05:27 Dose: 1 dose Bismuth Subsalicylate (Pepto-Bismol) 262 mg PO BID [facility] Last Admin: 10/26/16 19:05 Dose: Not Given Collagenase (Santyl) 1 gm TOP BID [facility] Last Admin: 10/26/16 19:05 Dose: Not Given Al Hydrox/Mg Hydrox/Simethicone 30 ml/Diphenhydramine HCl 75 mg/Lidocaine 30 ml 0 ml PO Q2H PRN PRN Reason: Mouth/Throat Pain Last Admin: 10/26/16 09:49 Dose: 5 ml Diphenhydramine HCl (Benadryl) 25 mg IVP Q4H PRN PRN Reason: Allergy symptoms Last Admin: 10/22/16 04:00 Dose: 25 mg Home Med (Home Med) 1 unit PO Q12H PRN PRN Reason: Inflammation Last Admin: 10/18/16 11:03 Dose: 1 unit Acyclovir 370 mg/ Sodium (Chloride) 100 mls @ 100 mls/hr IV DAILY [facility] PRN Reason: Protocol Last Admin: 06/16/17 09:49 Dose: 100 mls/hr Meropenem 1g/NS 100mL IVPB (Meropenem 1g/Ns 100ml Ivpb) 1 gm in 100 mls @ 100 mls/hr IVPB Q12 [facility] PRN Reason: Protocol Stop: 11/01/16 06:01 Last Admin: 10/26/16 22:43 Dose: 100 mls/hr Sodium Chloride (Sodium Chloride 0.9%) 1,000 mls @ 40 mls/hr IV .Q24H [facility] Last Admin: 10/26/16 00:37 Dose: 40 mls/hr Multivitamins/Vitamin C 10 ml/Chromium/Copper/Manganese/Zinc 1 ml/ Amino Acids 2,011 mls @ 83.792 mls/hr IV .Q24H [facility] Last Admin: 10/26/16 20:00 Dose: 83.792 mls/hr Fat Emulsion Intravenous (Intralipid 20%) 250 mls @ 21 mls/hr IV DAILY@1800 [facility] Last Admin: 10/26/16 20:00 Dose: 21 mls/hr Sodium Chloride (Sodium Chloride 0.9%) 1,000 mls @ 100 mls/hr IV .Q10H [facility] Last Admin: 10/26/16 20:00 Dose: 100 mls/hr Metoprolol Tartrate (Lopressor) 25 mg PO BID [facility] Last Admin: 10/26/16 19:05 Dose: Not Given Metoprolol Tartrate (Lopressor) 5 mg IVP Q6H PRN PRN Reason: Sustained HR > 130 Last Admin: 10/25/16 01:36 Dose: 5 mg Morphine Sulfate (Morphine) 4 mg IV Q3 PRN PRN Reason: Pain, severe (8-10) Last Admin: 10/27/16 01:49 Dose: 4 mg Multi-Ingredient Ointment (Hydrophor Oint) 0 gm TOP Q6H [facility] Last Admin: 10/26/16 21:00 Dose: 1 applic Octreotide Acetate (Sandostatin) 100 mcg SC Q8 [facility] Last Admin: 10/25/16 06:05 Dose: 100 mcg Petrolatum (Desitin Maximum Strength Topical 40% Oint) 1 gm TOP Q4H PRN PRN Reason: Rash Last Admin: 10/23/16 22:39 Dose: 1 applic Sucralfate (Carafate Oral Susp) 1 gm PO BID [facility] Last Admin: 10/26/16 19:05 Dose: Not Given Throat Lozenges (Cepastat) 1 francis MT Q2H PRN PRN Reason: Sore Throat Last Admin: 10/22/16 22:01 Dose: 1 francis - Labs Labs: 10/26/16 16:00 10/26/16 16:00 PT 13.6 Seconds (9.9-11.8) H 10/26/16 06:24 INR 1.26 (0.93-1.08) H 10/26/16 06:24 APTT 33.1 Seconds (23.7-30.8) H 10/26/16 06:24
--- NOTE | 2016-10-27 03:24 | CP.PCM.PN ---
Subjective - Date & Time of Evaluation Date of Evaluation: 10/27/16 Time of Evaluation: 03:21 - Subjective Subjective: S:Nurse Rodolfo request for something as patient is nauseous. She has been on morphine. No other complaints. Medical record was reviewed. O: Last Vital Signs 3 Temp 98.4 F 10/26/16 19:44 Pulse 71 10/26/16 19:44 Resp 16 10/26/16 19:44 BP 143/74 10/26/16 19:44 Pulse Ox 100 10/26/16 19:44 Awake, alertn, not in distress. LUNGS:Normal breathing pattern. ABD: No distension noted. A: Nausea 2* to morphine. P: Zofran 4 mg IV x 1. Objective - Vital Signs/Intake and Output Vital Signs (last 24 hours): Temp Pulse Resp BP Pulse Ox 98.4 F 71 16 143/74 100 10/26/16 19:44 10/26/16 19:44 10/26/16 19:44 10/26/16 19:44 10/26/16 19:44 Intake and Output: 10/26/16 10/27/16 18:59 06:59 Intake Total 1170 Output Total 400 Balance 1170 -400 - Medications Medications: Current Medications Acetaminophen (Tylenol 325mg Tab) 650 mg PO Q4 PRN PRN Reason: Fever >100.4 F Last Admin: 10/25/16 03:57 Dose: 650 mg Acetaminophen (Tylenol 650 Mg Supp) 650 mg RC Q4H PRN PRN Reason: Fever >100.4 F Benzocaine (Orajel Pm Maximum Strength) 0 gm MT QID PRN PRN Reason: Pain, moderate (4-7) Last Admin: 10/18/16 05:27 Dose: 1 dose Bismuth Subsalicylate (Pepto-Bismol) 262 mg PO BID [facility] Last Admin: 10/26/16 19:05 Dose: Not Given Collagenase (Santyl) 1 gm TOP BID [facility] Last Admin: 10/26/16 19:05 Dose: Not Given Al Hydrox/Mg Hydrox/Simethicone 30 ml/Diphenhydramine HCl 75 mg/Lidocaine 30 ml 0 ml PO Q2H PRN PRN Reason: Mouth/Throat Pain Last Admin: 10/26/16 09:49 Dose: 5 ml Diphenhydramine HCl (Benadryl) 25 mg IVP Q4H PRN PRN Reason: Allergy symptoms Last Admin: 10/22/16 04:00 Dose: 25 mg Home Med (Home Med) 1 unit PO Q12H PRN PRN Reason: Inflammation Last Admin: 10/18/16 11:03 Dose: 1 unit Acyclovir 370 mg/ Sodium (Chloride) 100 mls @ 100 mls/hr IV DAILY [facility] PRN Reason: Protocol Last Admin: 10/26/16 09:49 Dose: 100 mls/hr Meropenem 1g/NS 100mL IVPB (Meropenem 1g/Ns 100ml Ivpb) 1 gm in 100 mls @ 100 mls/hr IVPB Q12 [facility] PRN Reason: Protocol Stop: 11/01/16 06:01 Last Admin: 10/26/16 22:43 Dose: 100 mls/hr Sodium Chloride (Sodium Chloride 0.9%) 1,000 mls @ 40 mls/hr IV .Q24H [facility] Last Admin: 10/26/16 00:37 Dose: 40 mls/hr Multivitamins/Vitamin C 10 ml/Chromium/Copper/Manganese/Zinc 1 ml/ Amino Acids 2,011 mls @ 83.792 mls/hr IV .Q24H [facility] Last Admin: 10/26/16 20:00 Dose: 83.792 mls/hr Fat Emulsion Intravenous (Intralipid 20%) 250 mls @ 21 mls/hr IV DAILY@1800 [facility] Last Admin: 10/26/16 20:00 Dose: 21 mls/hr Sodium Chloride (Sodium Chloride 0.9%) 1,000 mls @ 100 mls/hr IV .Q10H [facility] Last Admin: 10/26/16 20:00 Dose: 100 mls/hr Metoprolol Tartrate (Lopressor) 25 mg PO BID [facility] Last Admin: 10/26/16 19:05 Dose: Not Given Metoprolol Tartrate (Lopressor) 5 mg IVP Q6H PRN PRN Reason: Sustained HR > 130 Last Admin: 10/25/16 01:36 Dose: 5 mg Morphine Sulfate (Morphine) 4 mg IV Q3 PRN PRN Reason: Pain, severe (8-10) Last Admin: 10/27/16 01:49 Dose: 4 mg Multi-Ingredient Ointment (Hydrophor Oint) 0 gm TOP Q6H [facility] Last Admin: 10/26/16 21:00 Dose: 1 applic Octreotide Acetate (Sandostatin) 100 mcg SC Q8 [facility] Last Admin: 10/25/16 06:05 Dose: 100 mcg Petrolatum (Desitin Maximum Strength Topical 40% Oint) 1 gm TOP Q4H PRN PRN Reason: Rash Last Admin: 10/23/16 22:39 Dose: 1 applic Sucralfate (Carafate Oral Susp) 1 gm PO BID [facility] Last Admin: 10/26/16 19:05 Dose: Not Given Throat Lozenges (Cepastat) 1 francis MT Q2H PRN PRN Reason: Sore Throat Last Admin: 10/22/16 22:01 Dose: 1 francis - Labs Labs: 10/26/16 16:00 10/26/16 16:00 PT 13.6 Seconds (9.9-11.8) H 10/26/16 06:24 INR 1.26 (0.93-1.08) H 10/26/16 06:24 APTT 33.1 Seconds (23.7-30.8) H 10/26/16 06:24
[2016-10-27] MEDS: DiphenhydrAMINE 50 mg/ml Inj IVP PRN ×2 (04:06→21:54)
[2016-10-27] MEDS: Sodium Chloride 0.9% 1,000 ML IV SCH ×3 (06:53→16:05)
[2016-10-27] MEDS: Petrolatum-Mineral Oil Oint (100gm) TOP SCH ×4 (06:53→22:30)
[2016-10-27 07:51] LABS: ALB/GLOB RATIO 0.7 (1.1-1.8); ALBUMIN 1.7 g/dL (3.0-4.8); ALT/SGPT 31 U/L (7-56); AST/SGOT 18 U/L (15-39); BLOOD UREA NITROGEN 64 mg/dL (7-21); GFR AFRICAN-AMERICAN > 60; GFR NON-AFRICAN AMERICAN 50; MAGNESIUM 1.5 mg/dL (1.7-2.2)
[2016-10-27 08:09] LABS: CALCIUM 6.9 mg/dL (8.4-10.5)
[2016-10-27 08:38] LABS: HEMOGLOBIN 11.4 gm/dL (12.0-16.0); MEAN CELL VOLUME 93.9 fL (80.0-105.0); MEAN CORPUSCULAR HEMOGLOBIN 36.8 pg (25.0-35.0); MEAN CORPUSCULAR HGB CONC 39.2 g/dl (31.0-37.0); MEAN PLATELET VOLUME 13.4 fl (7.0-11.0); RBC 3.1 10^6/uL (3.5-6.1); RED CELL DISTRIBUTION WIDTH 20.4 % (11.5-14.5); WHITE BLOOD COUNT 12.7 10^3/ul (4.5-11.0)
[2016-10-27] MEDS: Meropenem 1g/NS 100mL IVPB 1 GM/100 ML PIGGYBACK IVPB SCH ×2 (09:45→21:55)
[2016-10-27] MEDS: Sucralfate 1 gm/10 ml Oral Susp UD PO SCH ×3 (09:46→17:45)
[2016-10-27] MEDS: Aluminum Hydroxide/Magnesium 30 ML, DiphenhydrAMINE 75 MG, Lidocaine 2% Viscous 30 ML PO PRN (09:50)
--- NOTE | 2016-10-27 10:11 | CP.PCM.PN ---
<Leslie Cordero - Last Filed: 10/27/16 10:13> Subjective - Date & Time of Evaluation Date of Evaluation: 10/27/16 Time of Evaluation: 10:08 - Subjective Subjective: Surgery for Dr. Mccracken Pt S&e. Pt had endoscopy yesterday. 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 Pt denies having more bloody BM overnight. Pain controlled. Objective - Vital Signs/Intake and Output Vital Signs (last 24 hours): Temp Pulse Resp BP Pulse Ox 98.3 F 71 20 155/79 H 96 10/27/16 07:45 10/27/16 09:45 10/27/16 07:45 10/27/16 09:45 10/27/16 07:45 Intake and Output: 10/27/16 10/27/16 06:59 18:59 Intake Total 0 Output Total 400 675 Balance -400 -675 - Medications Medications: Current Medications Acetaminophen (Tylenol 325mg Tab) 650 mg PO Q4 PRN PRN Reason: Fever >100.4 F Last Admin: 10/25/16 03:57 Dose: 650 mg Acetaminophen (Tylenol 650 Mg Supp) 650 mg RC Q4H PRN PRN Reason: Fever >100.4 F Benzocaine (Orajel Pm Maximum Strength) 0 gm MT QID PRN PRN Reason: Pain, moderate (4-7) Last Admin: 10/18/16 05:27 Dose: 1 dose Bismuth Subsalicylate (Pepto-Bismol) 262 mg PO BID [facility] Last Admin: 10/26/16 19:05 Dose: Not Given Collagenase (Santyl) 1 gm TOP BID [facility] Last Admin: 10/26/16 19:05 Dose: Not Given Al Hydrox/Mg Hydrox/Simethicone 30 ml/Diphenhydramine HCl 75 mg/Lidocaine 30 ml 0 ml PO Q2H PRN PRN Reason: Mouth/Throat Pain Last Admin: 10/27/16 09:50 Dose: 10 ml Diphenhydramine HCl (Benadryl) 25 mg IVP Q4H PRN PRN Reason: Allergy symptoms Last Admin: 10/27/16 04:06 Dose: 25 mg Home Med (Home Med) 1 unit PO Q12H PRN PRN Reason: Inflammation Last Admin: 10/18/16 11:03 Dose: 1 unit Acyclovir 370 mg/ Sodium (Chloride) 100 mls @ 100 mls/hr IV DAILY [facility] PRN Reason: Protocol Last Admin: 10/26/16 09:49 Dose: 100 mls/hr Meropenem 1g/NS 100mL IVPB (Meropenem 1g/Ns 100ml Ivpb) 1 gm in 100 mls @ 100 mls/hr IVPB Q12 [facility] PRN Reason: Protocol Stop: 11/01/16 06:01 Last Admin: 10/27/16 09:45 Dose: 100 mls/hr Sodium Chloride (Sodium Chloride 0.9%) 1,000 mls @ 40 mls/hr IV .Q24H [facility] Last Admin: 10/26/16 00:37 Dose: 40 mls/hr Multivitamins/Vitamin C 10 ml/Chromium/Copper/Manganese/Zinc 1 ml/ Amino Acids 2,011 mls @ 83.792 mls/hr IV .Q24H [facility] Last Admin: 10/26/16 20:00 Dose: 83.792 mls/hr Fat Emulsion Intravenous (Intralipid 20%) 250 mls @ 21 mls/hr IV DAILY@1800 [facility] Last Admin: 10/26/16 20:00 Dose: 21 mls/hr Sodium Chloride (Sodium Chloride 0.9%) 1,000 mls @ 100 mls/hr IV .Q10H [facility] Last Admin: 10/27/16 06:53 Dose: 100 mls/hr Metoprolol Tartrate (Lopressor) 25 mg PO BID [facility] Last Admin: 10/27/16 09:45 Dose: 25 mg Metoprolol Tartrate (Lopressor) 5 mg IVP Q6H PRN PRN Reason: Sustained HR > 130 Last Admin: 10/25/16 01:36 Dose: 5 mg Morphine Sulfate (Morphine) 4 mg IV Q3 PRN PRN Reason: Pain, severe (8-10) Last Admin: 10/27/16 06:38 Dose: 4 mg Multi-Ingredient Ointment (Hydrophor Oint) 0 gm TOP Q6H [facility] Last Admin: 10/27/16 08:34 Dose: 1 applic Octreotide Acetate (Sandostatin) 100 mcg SC Q8 [facility] Last Admin: 10/25/16 06:05 Dose: 100 mcg Petrolatum (Desitin Maximum Strength Topical 40% Oint) 1 gm TOP Q4H PRN PRN Reason: Rash Last Admin: 10/23/16 22:39 Dose: 1 applic Sucralfate (Carafate Oral Susp) 1 gm PO BID [facility] Last Admin: 10/27/16 09:46 Dose: 1 gm Throat Lozenges (Cepastat) 1 francis MT Q2H PRN PRN Reason: Sore Throat Last Admin: 10/22/16 22:01 Dose: 1 francis - Labs Labs: 10/27/16 07:00 10/27/16 07:00 PT 13.6 Seconds (9.9-11.8) H 10/26/16 06:24 INR 1.26 (0.93-1.08) H 10/26/16 06:24 APTT 33.1 Seconds (23.7-30.8) H 10/26/16 06:24 - Constitutional Appears: No Acute Distress - Head Exam Head Exam: ATRAUMATIC, NORMAL INSPECTION, NORMOCEPHALIC - Eye Exam Eye Exam: EOMI, Normal appearance, PERRL Pupil Exam: NORMAL ACCOMODATION, PERRL - ENT Exam ENT Exam: Mucous Membranes Moist, Normal Exam - Neck Exam Neck Exam: Full ROM, Normal Inspection. absent: Lymphadenopathy - Respiratory Exam Respiratory Exam: Clear to Ausculation Bilateral, NORMAL BREATHING PATTERN - Cardiovascular Exam Cardiovascular Exam: REGULAR RHYTHM, +S1, +S2. absent: Murmur - GI/Abdominal Exam GI & Abdominal Exam: Soft, Tenderness, Normal Bowel Sounds. 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 Hgb 11.4. WBC 13.7 today Plan: Continue Transfusions prn, Trend H/H Rec. ICU if bleeding persists Will Follow closely w/ you ADOLPH Mccracken <Yoan Mccracken - Last Filed: 12/02/16 23:42> Objective - Vital Signs/Intake and Output Vital Signs (last 24 hours): Temp Pulse Resp BP Pulse Ox 97.8 F 101 H 18 170/89 H 100 12/02/16 16:00 12/02/16 16:00 12/02/16 16:00 12/02/16 16:00 12/02/16 16:00 Intake and Output: 12/02/16 12/03/16 18:59 06:59 Intake Total 120 Output Total 450 600 Balance -450 -480 - Medications Medications: Current Medications Acetaminophen (Tylenol 650 Mg Supp) 650 mg RC Q4H PRN PRN Reason: Fever >100.4 F Last Admin: 11/01/16 21:18 Dose: 650 mg Al Hydrox/Mg Hydrox/Simethicone 30 ml/Diphenhydramine HCl 75 mg/Lidocaine 30 ml 0 ml PO QID [facility] Last Admin: 12/02/16 21:01 Dose: Not Given Diphenhydramine HCl (Benadryl) 50 mg IVP HS PRN PRN Reason: Insomnia Last Admin: 11/27/16 01:00 Dose: 50 mg Ergocalciferol (Drisdol 50,000 Intl Units Cap) 1 cap PO Q7D [facility] Last Admin: 11/19/16 18:04 Dose: Not Given Ferrous Sulfate (Feosol) 324 mg PO TID [facility] Last Admin: 12/02/16 18:16 Dose: Not Given Fluconazole (Diflucan) 200 mg PO DAILY [facility] PRN Reason: Protocol Stop: 12/12/16 10:01 Last Admin: 12/02/16 09:44 Dose: Not Given Home Med (Home Med) 1 unit PO Q12H PRN PRN Reason: Inflammation Last Admin: 10/18/16 11:03 Dose: 1 unit Hydralazine HCl (Apresoline) 10 mg IVP Q4H PRN PRN Reason: Systolic Blood Pressure Hydromorphone HCl (Dilaudid) 1 mg IVP Q1H PRN PRN Reason: Pain, moderate (4-7) Last Admin: 12/02/16 21:06 Dose: 1 mg Levetiracetam (Keppra 500mg Ivpb) 500 mg in 100 mls @ 400 mls/hr IV Q12 [facility] Last Admin: 12/02/16 21:06 Dose: 400 mls/hr Potassium Chloride/Dextrose (Potassium Chl 40 Meq In D5w) 1,000 mls @ 60 mls/ hr IV .[id number] [facility] Last Admin: 12/02/16 18:17 Dose: Not Given Magnesium Hydroxide (Milk Of Magnesia) 30 ml PO DAILY PRN PRN Reason: skin irritation Last Admin: 12/02/16 14:09 Dose: 30 ml Magnesium Oxide (Mag-Ox) 400 mg PO BID [facility] Last Admin: 12/02/16 18:16 Dose: Not Given Multi-Ingredient Ointment (Hydrophor Oint) 0 gm TOP Q6H PRN PRN Reason: Dry lip Multivitamins (Thera Tab) 1 tab PO 0800 [facility] Last Admin: 12/02/16 08:10 Dose: Not Given Propranolol HCl (Inderal La) 120 mg PO DAILY [facility] Last Admin: 12/02/16 09:44 Dose: Not Given Sucralfate (Carafate Oral Susp) 1 gm PO BID [facility] Last Admin: 12/02/16 18:16 Dose: Not Given - Labs Labs: 12/02/16 06:00 12/02/16 06:00 PT 12.9 Seconds (9.9-11.8) H 12/02/16 06:00 INR 1.19 (0.93-1.08) H 12/02/16 06:00 APTT 32.9 Seconds (23.7-30.8) H 12/02/16 06:00 Assessment and Plan - Assessment and Plan (Free Text) Plan: Patient was seen and examined by me. I agree with assessment and plan as per resident's note.
[2016-10-27] MEDS: Bismuth Subsalicylate 262 mg/15 ml Sus (240 ml) PO SCH ×2 (10:51→17:31)
[2016-10-27] MEDS: Collagenase 250 Units/gm Ointment(30 gm) TOP SCH ×2 (10:58→17:31)
[2016-10-27] MEDS ORDERED: Potassium Chloride 20 mEq ER Tab PO ONE (12:05)
[2016-10-27] MEDS ORDERED: Magnesium Sulfate 2 GM in Sodium Chloride 0.9% 100 ML IVPB ONE (12:06)
--- NOTE | 2016-10-27 12:09 | CP.PCM.PN ---
Subjective - Date & Time of Evaluation Date of Evaluation: 10/27/16 Time of Evaluation: 12:07 - Subjective Subjective: seen and examined fees pain / cramping lower abdomen gen: nad sclera: anicteric op:clear neck: supple cv: +s1+s2 lungs: cta abd: ttp lower l and r q no r/g ext: no edema neuro: a+_ox3 psych: nml affect skin: scatterdecchymoses imp: arf / gib / anemia / hypocalcemia/ hypomagnesemia/ hypokalemia plan: CASANDRA resolving recc inc k and mg in TPN will check vit d level and ionized calcium as the albumin is quite low mag rider ordered Objective - Vital Signs/Intake and Output Vital Signs (last 24 hours): Temp Pulse Resp BP Pulse Ox 98.3 F 71 20 155/79 H 96 10/27/16 07:45 10/27/16 09:45 10/27/16 07:45 10/27/16 09:45 10/27/16 07:45 Intake and Output: 10/27/16 10/27/16 06:59 18:59 Intake Total 0 Output Total 400 675 Balance -400 -675 - Medications Medications: Current Medications Acetaminophen (Tylenol 325mg Tab) 650 mg PO Q4 PRN PRN Reason: Fever >100.4 F Last Admin: 10/25/16 03:57 Dose: 650 mg Acetaminophen (Tylenol 650 Mg Supp) 650 mg RC Q4H PRN PRN Reason: Fever >100.4 F Benzocaine (Orajel Pm Maximum Strength) 0 gm MT QID PRN PRN Reason: Pain, moderate (4-7) Last Admin: 10/18/16 05:27 Dose: 1 dose Bismuth Subsalicylate (Pepto-Bismol) 262 mg PO BID [facility] Last Admin: 10/27/16 10:51 Dose: Not Given Collagenase (Santyl) 1 gm TOP BID [facility] Last Admin: 10/27/16 10:58 Dose: 1 applic Al Hydrox/Mg Hydrox/Simethicone 30 ml/Diphenhydramine HCl 75 mg/Lidocaine 30 ml 0 ml PO Q2H PRN PRN Reason: Mouth/Throat Pain Last Admin: 10/27/16 09:50 Dose: 10 ml Diphenhydramine HCl (Benadryl) 25 mg IVP Q4H PRN PRN Reason: Allergy symptoms Last Admin: 10/27/16 04:06 Dose: 25 mg Home Med (Home Med) 1 unit PO Q12H PRN PRN Reason: Inflammation Last Admin: 10/18/16 11:03 Dose: 1 unit Acyclovir 370 mg/ Sodium (Chloride) 100 mls @ 100 mls/hr IV DAILY [facility] PRN Reason: Protocol Last Admin: 10/27/16 10:35 Dose: 100 mls/hr Meropenem 1g/NS 100mL IVPB (Meropenem 1g/Ns 100ml Ivpb) 1 gm in 100 mls @ 100 mls/hr IVPB Q12 [facility] PRN Reason: Protocol Stop: 11/01/16 06:01 Last Admin: 10/27/16 09:45 Dose: 100 mls/hr Sodium Chloride (Sodium Chloride 0.9%) 1,000 mls @ 40 mls/hr IV .Q24H [facility] Last Admin: 10/26/16 00:37 Dose: 40 mls/hr Multivitamins/Vitamin C 10 ml/Chromium/Copper/Manganese/Zinc 1 ml/ Amino Acids 2,011 mls @ 83.792 mls/hr IV .Q24H [facility] Last Admin: 10/26/16 20:00 Dose: 83.792 mls/hr Fat Emulsion Intravenous (Intralipid 20%) 250 mls @ 21 mls/hr IV DAILY@1800 [facility] Last Admin: 10/26/16 20:00 Dose: 21 mls/hr Sodium Chloride (Sodium Chloride 0.9%) 1,000 mls @ 100 mls/hr IV .Q10H [facility] Last Admin: 10/27/16 06:53 Dose: 100 mls/hr Metoprolol Tartrate (Lopressor) 25 mg PO BID [facility] Last Admin: 10/27/16 09:45 Dose: 25 mg Metoprolol Tartrate (Lopressor) 5 mg IVP Q6H PRN PRN Reason: Sustained HR > 130 Last Admin: 10/25/16 01:36 Dose: 5 mg Morphine Sulfate (Morphine) 4 mg IV Q3 PRN PRN Reason: Pain, severe (8-10) Last Admin: 10/27/16 10:36 Dose: 4 mg Multi-Ingredient Ointment (Hydrophor Oint) 0 gm TOP Q6H [facility] Last Admin: 10/27/16 08:34 Dose: 1 applic Octreotide Acetate (Sandostatin) 100 mcg SC Q8 [facility] Last Admin: 10/25/16 06:05 Dose: 100 mcg Petrolatum (Desitin Maximum Strength Topical 40% Oint) 1 gm TOP Q4H PRN PRN Reason: Rash Last Admin: 10/23/16 22:39 Dose: 1 applic Sucralfate (Carafate Oral Susp) 1 gm PO BID [facility] Last Admin: 10/27/16 09:46 Dose: 1 gm Throat Lozenges (Cepastat) 1 francis MT Q2H PRN PRN Reason: Sore Throat Last Admin: 10/22/16 22:01 Dose: 1 francis - Labs Labs: 10/27/16 07:00 10/27/16 07:00 PT 13.6 Seconds (9.9-11.8) H 10/26/16 06:24 INR 1.26 (0.93-1.08) H 10/26/16 06:24 APTT 33.1 Seconds (23.7-30.8) H 10/26/16 06:24
[2016-10-27] MEDS ORDERED: Albumin Human 25% (12.5 gm/50 ml) IV SCH ×2 (14:00→15:00)
--- NOTE | 2016-10-27 14:51 | CP.PCM.PN ---
Subjective - Date & Time of Evaluation Date of Evaluation: 10/27/16 Time of Evaluation: 11:40 - Subjective Subjective: Patient is resting because she was given Morphine, still with problems and pain on swallowing, no fevers overnight, still with abdominal pain. Objective - Vital Signs/Intake and Output Vital Signs (last 24 hours): Temp Pulse Resp BP Pulse Ox 98.3 F 71 20 155/79 H 96 10/27/16 07:45 10/27/16 09:45 10/27/16 07:45 10/27/16 09:45 10/27/16 07:45 Intake and Output: 10/27/16 10/27/16 06:59 18:59 Intake Total 0 Output Total 400 675 Balance -400 -675 - Medications Medications: Current Medications Acetaminophen (Tylenol 325mg Tab) 650 mg PO Q4 PRN PRN Reason: Fever >100.4 F Last Admin: 10/25/16 03:57 Dose: 650 mg Acetaminophen (Tylenol 650 Mg Supp) 650 mg RC Q4H PRN PRN Reason: Fever >100.4 F Benzocaine (Orajel Pm Maximum Strength) 0 gm MT QID PRN PRN Reason: Pain, moderate (4-7) Last Admin: 10/18/16 05:27 Dose: 1 dose Bismuth Subsalicylate (Pepto-Bismol) 262 mg PO BID [facility] Last Admin: 10/26/16 19:05 Dose: Not Given Collagenase (Santyl) 1 gm TOP BID [facility] Last Admin: 10/26/16 19:05 Dose: Not Given Al Hydrox/Mg Hydrox/Simethicone 30 ml/Diphenhydramine HCl 75 mg/Lidocaine 30 ml 0 ml PO Q2H PRN PRN Reason: Mouth/Throat Pain Last Admin: 10/27/16 09:50 Dose: 10 ml Diphenhydramine HCl (Benadryl) 25 mg IVP Q4H PRN PRN Reason: Allergy symptoms Last Admin: 10/27/16 04:06 Dose: 25 mg Home Med (Home Med) 1 unit PO Q12H PRN PRN Reason: Inflammation Last Admin: 10/18/16 11:03 Dose: 1 unit Acyclovir 370 mg/ Sodium (Chloride) 100 mls @ 100 mls/hr IV DAILY [facility] PRN Reason: Protocol Last Admin: 10/26/16 09:49 Dose: 100 mls/hr Meropenem 1g/NS 100mL IVPB (Meropenem 1g/Ns 100ml Ivpb) 1 gm in 100 mls @ 100 mls/hr IVPB Q12 [facility] PRN Reason: Protocol Stop: 11/01/16 06:01 Last Admin: 10/27/16 09:45 Dose: 100 mls/hr Sodium Chloride (Sodium Chloride 0.9%) 1,000 mls @ 40 mls/hr IV .Q24H [facility] Last Admin: 10/26/16 00:37 Dose: 40 mls/hr Multivitamins/Vitamin C 10 ml/Chromium/Copper/Manganese/Zinc 1 ml/ Amino Acids 2,011 mls @ 83.792 mls/hr IV .Q24H [facility] Last Admin: 10/26/16 20:00 Dose: 83.792 mls/hr Fat Emulsion Intravenous (Intralipid 20%) 250 mls @ 21 mls/hr IV DAILY@1800 [facility] Last Admin: 10/26/16 20:00 Dose: 21 mls/hr Sodium Chloride (Sodium Chloride 0.9%) 1,000 mls @ 100 mls/hr IV .Q10H [facility] Last Admin: 10/27/16 06:53 Dose: 100 mls/hr Metoprolol Tartrate (Lopressor) 25 mg PO BID [facility] Last Admin: 10/27/16 09:45 Dose: 25 mg Metoprolol Tartrate (Lopressor) 5 mg IVP Q6H PRN PRN Reason: Sustained HR > 130 Last Admin: 10/25/16 01:36 Dose: 5 mg Morphine Sulfate (Morphine) 4 mg IV Q3 PRN PRN Reason: Pain, severe (8-10) Last Admin: 10/27/16 06:38 Dose: 4 mg Multi-Ingredient Ointment (Hydrophor Oint) 0 gm TOP Q6H [facility] Last Admin: 10/27/16 08:34 Dose: 1 applic Octreotide Acetate (Sandostatin) 100 mcg SC Q8 [facility] Last Admin: 10/25/16 06:05 Dose: 100 mcg Petrolatum (Desitin Maximum Strength Topical 40% Oint) 1 gm TOP Q4H PRN PRN Reason: Rash Last Admin: 10/23/16 22:39 Dose: 1 applic Sucralfate (Carafate Oral Susp) 1 gm PO BID [facility] Last Admin: 10/27/16 09:46 Dose: 1 gm Throat Lozenges (Cepastat) 1 francis MT Q2H PRN PRN Reason: Sore Throat Last Admin: 10/22/16 22:01 Dose: 1 francis - Labs Labs: 10/27/16 07:00 10/27/16 07:00 PT 13.6 Seconds (9.9-11.8) H 10/26/16 06:24 INR 1.26 (0.93-1.08) H 10/26/16 06:24 APTT 33.1 Seconds (23.7-30.8) H 10/26/16 06:24 - Constitutional Appears: Non-toxic, No Acute Distress - Head Exam Head Exam: NORMAL INSPECTION - Neck Exam Neck Exam: absent: Meningismus - Respiratory Exam Respiratory Exam: Decreased Breath Sounds - Cardiovascular Exam Cardiovascular Exam: +S1, +S2 - GI/Abdominal Exam GI & Abdominal Exam: Soft. 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
[2016-10-27] MEDS: Albumin Human 25% (25 gm/100 ml) IV SCH (16:06)
[2016-10-27] MEDS: Fat Emulsion 20% IV 250 ML IV SCH (17:44)
[2016-10-27] MEDS: TRACE ELEMENTS IV SCH (17:45)
[2016-10-27] MEDS: DEXT IV SCH (17:45)
[2016-10-27] MEDS: [UNRECOGNIZED DRUG - OTHER] IV SCH (17:45)
[2016-10-27] MEDS: AMINO IV SCH (17:45)
[2016-10-27] MEDS: MULTIVITAMIN IV SCH (17:45)
--- NOTE | 2016-10-27 23:28 | CP.PCM.PN ---
Subjective - Date & Time of Evaluation Date of Evaluation: 10/27/16 Time of Evaluation: 23:28 - Subjective Subjective: Patient was seen at bedside for nausea.Temp 102.7* F earlier,100.3*F now. Zofran 4 mg IV was ordered. One hour later, she was still nauseous . So , Reglan 10 mg IV was ordered. Denies vomiting, abdominal pain (For which she gets morphine.) ROS:Neg. except as mentioned above. 61 year old white woman was admitted with weakness, non bloody diarrhoea following receiving Neulasta. Has PMH of Stage IV colon cancer, cauda equina syndrome, S/P radiation therapy to sacral area, constipation , retention of urine. Objective - Vital Signs/Intake and Output Vital Signs (last 24 hours): Temp Pulse Resp BP Pulse Ox 102.7 F H 98 H 19 179/96 H 99 10/27/16 22:37 10/27/16 18:00 10/27/16 17:51 10/27/16 17:51 10/27/16 17:51 Intake and Output: 10/27/16 10/28/16 18:59 06:59 Intake Total 0 Output Total 675 Balance -675 - Medications Medications: Current Medications Acetaminophen (Tylenol 325mg Tab) 650 mg PO Q4 PRN PRN Reason: Fever >100.4 F Last Admin: 10/27/16 20:27 Dose: 650 mg Acetaminophen (Tylenol 650 Mg Supp) 650 mg RC Q4H PRN PRN Reason: Fever >100.4 F Last Admin: 10/27/16 22:37 Dose: 650 mg Albumin Human (Albumin Human 25% (25 Gm/100 Ml)) 25 gm IV DAILY [facility] Stop: 10/30/16 10:01 Last Admin: 10/27/16 16:06 Dose: 25 gm Benzocaine (Orajel Pm Maximum Strength) 0 gm MT QID PRN PRN Reason: Pain, moderate (4-7) Last Admin: 10/18/16 05:27 Dose: 1 dose Bismuth Subsalicylate (Pepto-Bismol) 262 mg PO BID [facility] Last Admin: 10/27/16 17:31 Dose: Not Given Collagenase (Santyl) 1 gm TOP BID [facility] Last Admin: 10/27/16 17:31 Dose: 1 applic Al Hydrox/Mg Hydrox/Simethicone 30 ml/Diphenhydramine HCl 75 mg/Lidocaine 30 ml 0 ml PO Q2H PRN PRN Reason: Mouth/Throat Pain Last Admin: 10/27/16 09:50 Dose: 10 ml Diphenhydramine HCl (Benadryl) 25 mg IVP Q4H PRN PRN Reason: Allergy symptoms Last Admin: 10/27/16 21:54 Dose: 25 mg Home Med (Home Med) 1 unit PO Q12H PRN PRN Reason: Inflammation Last Admin: 10/18/16 11:03 Dose: 1 unit Meropenem 1g/NS 100mL IVPB (Meropenem 1g/Ns 100ml Ivpb) 1 gm in 100 mls @ 100 mls/hr IVPB Q12 [facility] PRN Reason: Protocol Stop: 11/01/16 06:01 Last Admin: 10/27/16 21:55 Dose: 100 mls/hr Sodium Chloride (Sodium Chloride 0.9%) 1,000 mls @ 40 mls/hr IV .Q24H [facility] Last Admin: 10/27/16 15:04 Dose: Not Given Multivitamins/Vitamin C 10 ml/Chromium/Copper/Manganese/Zinc 1 ml/ Amino Acids 2,011 mls @ 83.792 mls/hr IV .Q24H [facility] Last Admin: 10/27/16 17:45 Dose: 83.792 mls/hr Fat Emulsion Intravenous (Intralipid 20%) 250 mls @ 21 mls/hr IV DAILY@1800 [facility] Last Admin: 10/27/16 17:44 Dose: 21 mls/hr Sodium Chloride (Sodium Chloride 0.9%) 1,000 mls @ 100 mls/hr IV .Q10H [facility] Last Admin: 10/27/16 16:05 Dose: 100 mls/hr Metoprolol Tartrate (Lopressor) 25 mg PO BID [facility] Last Admin: 10/27/16 17:24 Dose: 25 mg Metoprolol Tartrate (Lopressor) 5 mg IVP Q6H PRN PRN Reason: Sustained HR > 130 Last Admin: 10/25/16 01:36 Dose: 5 mg Morphine Sulfate (Morphine) 4 mg IV Q3 PRN PRN Reason: Pain, severe (8-10) Last Admin: 10/27/16 21:55 Dose: 4 mg Multi-Ingredient Ointment (Hydrophor Oint) 0 gm TOP Q6H [facility] Last Admin: 10/27/16 14:13 Dose: 1 applic Octreotide Acetate (Sandostatin) 100 mcg SC Q8 [facility] Last Admin: 10/25/16 06:05 Dose: 100 mcg Pantoprazole Sodium (Protonix Inj) 40 mg IVP DAILY [facility] Petrolatum (Desitin Maximum Strength Topical 40% Oint) 1 gm TOP Q4H PRN PRN Reason: Rash Last Admin: 10/23/16 22:39 Dose: 1 applic Sucralfate (Carafate Oral Susp) 1 gm PO BID [facility] Last Admin: 10/27/16 17:45 Dose: Not Given Throat Lozenges (Cepastat) 1 francis MT Q2H PRN PRN Reason: Sore Throat Last Admin: 10/22/16 22:01 Dose: 1 francis Valganciclovir (Valcyte) 450 mg PO BID [facility] Stop: 10/28/16 18:01 Last Admin: 10/27/16 18:02 Dose: 450 mg - Labs Labs: 10/27/16 07:00 10/27/16 07:00 PT 13.6 Seconds (9.9-11.8) H 10/26/16 06:24 INR 1.26 (0.93-1.08) H 10/26/16 06:24 APTT 33.1 Seconds (23.7-30.8) H 10/26/16 06:24 - Constitutional Appears: Well, No Acute Distress - Head Exam Head Exam: ATRAUMATIC, NORMAL INSPECTION, NORMOCEPHALIC - Eye Exam Eye Exam: Normal appearance - ENT Exam ENT Exam: TM's Normal Bilaterally - Neck Exam Neck Exam: Normal Inspection - Respiratory Exam Respiratory Exam: NORMAL BREATHING PATTERN - Cardiovascular Exam Cardiovascular Exam: absent: JVD - GI/Abdominal Exam GI & Abdominal Exam: Distended (+), Soft, Normal Bowel Sounds. absent: Tenderness - Rectal Exam Rectal Exam: Deferred - Extremities Exam Extremities Exam: Normal Inspection - Back Exam Back Exam: NORMAL INSPECTION - Neurological Exam Neurological Exam: Alert, Oriented x3 - Psychiatric Exam Psychiatric exam: Normal Affect, Normal Mood - Skin Skin Exam: Dry Assessment and Plan - Assessment and Plan (Free Text) Assessment: Nausea. 2* to morphine. Stage IV colon cancer. Cauda Equina syndrom. Fever. Abdominal pain. Plan: Zofran 4 mg IV was given. Reglan 10 mg IV was given. Continue present management.
--- NOTE | 2016-10-27 23:50 | PN ---
DATE: 10/27/2016 SUBJECTIVE: This patient was seen and evaluated earlier today. Discussed with Dr. Avalos and also with Dr. Hendricks. PHYSICAL EXAMINATION: VITAL SIGNS: T-max on examination at that time it was 98, blood pressure 179/96 , pulse 102, respirations 19, O2 saturation is 99. HEENT: Atraumatic, anicteric. NECK: Supple. HEART: S1, S2 heard. LUNGS: Bilateral air entry present, slightly reduced in the base. ABDOMEN: Soft. There is tenderness present NEUROLOGIC: Oriented, moves all the extremities. LABORATORY DATA: Hemoglobin is 11.4, hematocrit, WBC 12.7, platelets 95. Chemistries: Potassium 3.5, creatinine 1.1, BUN 64. IMPRESSION: This is a 61-year-old patient who had rectal carcinoma status post low anterior resection, status post chemoradiation, admitted with neutropenia, sepsis, urosepsis initially and her hospital course was further complicated withhad a partial SBO, gastrointestinal bleeding. The patient received a transfusion of 2 units. The patient did have an EGD done and a flexible sigmoidoscopy yesterday. EGD showed esophageal ulcerations extending from 25- 30 cm. 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 One biopsy specimen was taken. There was brisk bleeding, no further attempt was now done. Flexsig revealed ulcerated colon stricture The patient has been started on valganciclovir today. Thank you very much for allowing us to participate in the care of the patient. Tong Null MD cc: [id number] TT: 10/27/2016 23:49:56 Confirmation # [id number] Dictation # [id number] chastity WALLACE
[2016-10-28] MEDS: Sodium Chloride 0.9% 1,000 ML IV SCH ×4 (00:30→21:49)
[2016-10-28] MEDS: Morphine 4 mg/ml ISec IV PRN ×6 (00:45→22:42)
[2016-10-28] MEDS: Petrolatum-Mineral Oil Oint (100gm) TOP SCH ×4 (02:00→21:26)
[2016-10-28 06:21] LABS: ALB/GLOB RATIO 0.7 (1.1-1.8); ALBUMIN 1.8 g/dL (3.0-4.8); ALT/SGPT 37 U/L (7-56); AST/SGOT 29 U/L (15-39); BLOOD UREA NITROGEN 54 mg/dL (7-21); CALCIUM 7.1 mg/dL (8.4-10.5); GFR AFRICAN-AMERICAN > 60; GFR NON-AFRICAN AMERICAN > 60
[2016-10-28 06:56] LABS: HEMOGLOBIN 10.9 gm/dL (12.0-16.0); MEAN CELL VOLUME 92.7 fL (80.0-105.0); MEAN CORPUSCULAR HEMOGLOBIN 33.2 pg (25.0-35.0); MEAN CORPUSCULAR HGB CONC 35.9 g/dl (31.0-37.0); RBC 3.28 10^6/uL (3.5-6.1); WHITE BLOOD COUNT 14.3 10^3/ul (4.5-11.0)
--- NOTE | 2016-10-28 08:28 | CP.PCM.PN ---
<Can Leon - Last Filed: 10/28/16 08:23> Subjective - Date & Time of Evaluation Date of Evaluation: 10/28/16 Time of Evaluation: 07:40 - Subjective Subjective: General Surgery Pt S&E, febrile to 102.7 with nausea overnight. This AM says she feels a bit better. Denies bloody BM and abdominal pain. Says she wants to work on moving her legs today. Objective - Vital Signs/Intake and Output Vital Signs (last 24 hours): Temp Pulse Resp BP Pulse Ox 100.1 F H 102 H 20 134/77 99 10/28/16 07:21 10/28/16 07:21 10/28/16 07:21 10/28/16 07:21 10/28/16 07:21 Intake and Output: 10/28/16 10/28/16 06:59 18:59 Intake Total 4392 0 Output Total 1675 700 Balance 2717 -700 - Medications Medications: Current Medications Acetaminophen (Tylenol 325mg Tab) 650 mg PO Q4 PRN PRN Reason: Fever >100.4 F Last Admin: 10/27/16 20:27 Dose: 650 mg Acetaminophen (Tylenol 650 Mg Supp) 650 mg RC Q4H PRN PRN Reason: Fever >100.4 F Last Admin: 10/27/16 22:37 Dose: 650 mg Albumin Human (Albumin Human 25% (25 Gm/100 Ml)) 25 gm IV DAILY [facility] Stop: 10/30/16 10:01 Last Admin: 10/27/16 16:06 Dose: 25 gm Benzocaine (Orajel Pm Maximum Strength) 0 gm MT QID PRN PRN Reason: Pain, moderate (4-7) Last Admin: 10/18/16 05:27 Dose: 1 dose Bismuth Subsalicylate (Pepto-Bismol) 262 mg PO BID [facility] Last Admin: 10/27/16 17:31 Dose: Not Given Collagenase (Santyl) 1 gm TOP BID [facility] Last Admin: 10/27/16 17:31 Dose: 1 applic Al Hydrox/Mg Hydrox/Simethicone 30 ml/Diphenhydramine HCl 75 mg/Lidocaine 30 ml 0 ml PO Q2H PRN PRN Reason: Mouth/Throat Pain Last Admin: 10/27/16 09:50 Dose: 10 ml Diphenhydramine HCl (Benadryl) 25 mg IVP Q4H PRN PRN Reason: Allergy symptoms Last Admin: 10/27/16 21:54 Dose: 25 mg Home Med (Home Med) 1 unit PO Q12H PRN PRN Reason: Inflammation Last Admin: 10/18/16 11:03 Dose: 1 unit Meropenem 1g/NS 100mL IVPB (Meropenem 1g/Ns 100ml Ivpb) 1 gm in 100 mls @ 100 mls/hr IVPB Q12 [facility] PRN Reason: Protocol Stop: 11/01/16 06:01 Last Admin: 10/27/16 21:55 Dose: 100 mls/hr Sodium Chloride (Sodium Chloride 0.9%) 1,000 mls @ 40 mls/hr IV .Q24H [facility] Last Admin: 10/27/16 15:04 Dose: Not Given Multivitamins/Vitamin C 10 ml/Chromium/Copper/Manganese/Zinc 1 ml/ Amino Acids 2,011 mls @ 83.792 mls/hr IV .Q24H [facility] Last Admin: 10/27/16 17:45 Dose: 83.792 mls/hr Fat Emulsion Intravenous (Intralipid 20%) 250 mls @ 21 mls/hr IV DAILY@1800 [facility] Last Admin: 10/27/16 17:44 Dose: 21 mls/hr Sodium Chloride (Sodium Chloride 0.9%) 1,000 mls @ 100 mls/hr IV .Q10H [facility] Last Admin: 10/28/16 00:30 Dose: 100 mls/hr Metoprolol Tartrate (Lopressor) 25 mg PO BID [facility] Last Admin: 10/27/16 17:24 Dose: 25 mg Metoprolol Tartrate (Lopressor) 5 mg IVP Q6H PRN PRN Reason: Sustained HR > 130 Last Admin: 10/25/16 01:36 Dose: 5 mg Morphine Sulfate (Morphine) 4 mg IV Q3 PRN PRN Reason: Pain, severe (8-10) Last Admin: 10/28/16 07:57 Dose: 4 mg Multi-Ingredient Ointment (Hydrophor Oint) 0 gm TOP Q6H [facility] Last Admin: 10/28/16 08:01 Dose: 1 applic Octreotide Acetate (Sandostatin) 100 mcg SC Q8 [facility] Last Admin: 10/25/16 06:05 Dose: 100 mcg Pantoprazole Sodium (Protonix Inj) 40 mg IVP DAILY [facility] Petrolatum (Desitin Maximum Strength Topical 40% Oint) 1 gm TOP Q4H PRN PRN Reason: Rash Last Admin: 10/23/16 22:39 Dose: 1 applic Sucralfate (Carafate Oral Susp) 1 gm PO BID [facility] Last Admin: 10/27/16 17:45 Dose: Not Given Throat Lozenges (Cepastat) 1 francis MT Q2H PRN PRN Reason: Sore Throat Last Admin: 10/22/16 22:01 Dose: 1 francis Valganciclovir (Valcyte) 450 mg PO BID [facility] Stop: 10/28/16 18:01 Last Admin: 10/27/16 18:02 Dose: 450 mg - Labs Labs: 10/28/16 06:00 10/28/16 06:00 PT 13.6 Seconds (9.9-11.8) H 10/26/16 06:24 INR 1.26 (0.93-1.08) H 10/26/16 06:24 APTT 33.1 Seconds (23.7-30.8) H 10/26/16 06:24 - Constitutional Appears: No Acute Distress, Chronically Ill - Head Exam Head Exam: ATRAUMATIC, NORMOCEPHALIC - Eye Exam Eye Exam: EOMI. absent: Scleral icterus - Respiratory Exam Respiratory Exam: NORMAL BREATHING PATTERN. absent: Respiratory Distress - GI/Abdominal Exam GI & Abdominal Exam: Soft. absent: Distended, Firm, Guarding, Rigid, Tenderness - Neurological Exam Neurological Exam: Alert, Awake - Skin Skin Exam: Dry, Warm Assessment and Plan - Assessment and Plan (Free Text) Assessment: 61F s/p LAR in 2015 with recurrent mass, with lower GI bleed: Hgb 10.9. Plan: Monitor H&H Monitor for bloody BMs Increasing leukocytosis with fevers, ordered CXR Will D/W Dr. Kaykay Leon PGY3 <Yoan Mccracken - Last Filed: 12/02/16 23:44> Objective - Vital Signs/Intake and Output Vital Signs (last 24 hours): Temp Pulse Resp BP Pulse Ox 97.8 F 101 H 18 170/89 H 100 12/02/16 16:00 12/02/16 16:00 12/02/16 16:00 12/02/16 16:00 12/02/16 16:00 Intake and Output: 12/02/16 12/03/16 18:59 06:59 Intake Total 120 Output Total 450 600 Balance -450 -480 - Medications Medications: Current Medications Acetaminophen (Tylenol 650 Mg Supp) 650 mg RC Q4H PRN PRN Reason: Fever >100.4 F Last Admin: 11/01/16 21:18 Dose: 650 mg Al Hydrox/Mg Hydrox/Simethicone 30 ml/Diphenhydramine HCl 75 mg/Lidocaine 30 ml 0 ml PO QID [facility] Last Admin: 12/02/16 21:01 Dose: Not Given Diphenhydramine HCl (Benadryl) 50 mg IVP HS PRN PRN Reason: Insomnia Last Admin: 11/27/16 01:00 Dose: 50 mg Ergocalciferol (Drisdol 50,000 Intl Units Cap) 1 cap PO Q7D [facility] Last Admin: 11/19/16 18:04 Dose: Not Given Ferrous Sulfate (Feosol) 324 mg PO TID [facility] Last Admin: 12/02/16 18:16 Dose: Not Given Fluconazole (Diflucan) 200 mg PO DAILY [facility] PRN Reason: Protocol Stop: 12/12/16 10:01 Last Admin: 12/02/16 09:44 Dose: Not Given Home Med (Home Med) 1 unit PO Q12H PRN PRN Reason: Inflammation Last Admin: 10/18/16 11:03 Dose: 1 unit Hydralazine HCl (Apresoline) 10 mg IVP Q4H PRN PRN Reason: Systolic Blood Pressure Hydromorphone HCl (Dilaudid) 1 mg IVP Q1H PRN PRN Reason: Pain, moderate (4-7) Last Admin: 12/02/16 21:06 Dose: 1 mg Levetiracetam (Keppra 500mg Ivpb) 500 mg in 100 mls @ 400 mls/hr IV Q12 [facility] Last Admin: 12/02/16 21:06 Dose: 400 mls/hr Potassium Chloride/Dextrose (Potassium Chl 40 Meq In D5w) 1,000 mls @ 60 mls/ hr IV .[id number] [facility] Last Admin: 12/02/16 18:17 Dose: Not Given Magnesium Hydroxide (Milk Of Magnesia) 30 ml PO DAILY PRN PRN Reason: skin irritation Last Admin: 12/02/16 14:09 Dose: 30 ml Magnesium Oxide (Mag-Ox) 400 mg PO BID [facility] Last Admin: 12/02/16 18:16 Dose: Not Given Multi-Ingredient Ointment (Hydrophor Oint) 0 gm TOP Q6H PRN PRN Reason: Dry lip Multivitamins (Thera Tab) 1 tab PO 0800 [facility] Last Admin: 12/02/16 08:10 Dose: Not Given Propranolol HCl (Inderal La) 120 mg PO DAILY [facility] Last Admin: 12/02/16 09:44 Dose: Not Given Sucralfate (Carafate Oral Susp) 1 gm PO BID [facility] Last Admin: 12/02/16 18:16 Dose: Not Given - Labs Labs: 12/02/16 06:00 12/02/16 06:00 PT 12.9 Seconds (9.9-11.8) H 12/02/16 06:00 INR 1.19 (0.93-1.08) H 12/02/16 06:00 APTT 32.9 Seconds (23.7-30.8) H 12/02/16 06:00 Assessment and Plan - Assessment and Plan (Free Text) Plan: Patient was seen and examined by me. I agree with assessment and plan as per resident's note.
[2016-10-28] MEDS: Albumin Human 25% (25 gm/100 ml) IV SCH (09:47)
[2016-10-28] MEDS: Meropenem 1g/NS 100mL IVPB 1 GM/100 ML PIGGYBACK IVPB SCH ×2 (09:48→21:48)
[2016-10-28] MEDS: Sucralfate 1 gm/10 ml Oral Susp UD PO SCH ×2 (09:48→18:10)
[2016-10-28] MEDS: Collagenase 250 Units/gm Ointment(30 gm) TOP SCH ×2 (09:52→19:00)
[2016-10-28] MEDS: Bismuth Subsalicylate 262 mg/15 ml Sus (240 ml) PO SCH ×2 (09:52→18:06)
--- NOTE | 2016-10-28 11:33 | RAD ---
HISTORY: fever, increasing leukocytosis COMPARISON: Chest x-ray performed 10/25/16 TECHNIQUE: Chest, one view. FINDINGS: Right-sided MediPort extends the cavoatrial junction. Multiple external wires and leads obscure evaluation of the underlying parenchyma. LUNGS: Bilateral platelike atelectasis, lower lobes. Please note that chest x-ray has limited sensitivity for the detection of pulmonary masses. PLEURA: Probable tiny left pleural effusion. No definite pneumothorax . CARDIOVASCULAR: Heart size appears within normal limits. OSSEOUS STRUCTURES: Degenerative changes. Evidence of right-sided calcific tendinitis. VISUALIZED UPPER ABDOMEN: Unremarkable. OTHER FINDINGS: None. IMPRESSION: Right-sided MediPort extends the cavoatrial junction Bilateral platelike atelectasis, lower lobes. Probable tiny left pleural effusion.
--- NOTE | 2016-10-28 12:14 | CP.PCM.PN ---
Subjective - Date & Time of Evaluation Date of Evaluation: 10/28/16 Time of Evaluation: 10:55 - Subjective Subjective: Patient still feels weak and tired, had fevers overnight, still with blood with bowel movements. Objective - Vital Signs/Intake and Output Vital Signs (last 24 hours): Temp Pulse Resp BP Pulse Ox 100.1 F H 102 H 20 134/77 99 10/28/16 07:21 10/28/16 07:21 10/28/16 07:21 10/28/16 07:21 10/28/16 07:21 Intake and Output: 10/28/16 10/28/16 06:59 18:59 Intake Total 4392 0 Output Total 1675 700 Balance 2717 -700 - Medications Medications: Current Medications Acetaminophen (Tylenol 325mg Tab) 650 mg PO Q4 PRN PRN Reason: Fever >100.4 F Last Admin: 10/27/16 20:27 Dose: 650 mg Acetaminophen (Tylenol 650 Mg Supp) 650 mg RC Q4H PRN PRN Reason: Fever >100.4 F Last Admin: 10/27/16 22:37 Dose: 650 mg Albumin Human (Albumin Human 25% (25 Gm/100 Ml)) 25 gm IV DAILY [facility] Stop: 10/30/16 10:01 Last Admin: 10/27/16 16:06 Dose: 25 gm Benzocaine (Orajel Pm Maximum Strength) 0 gm MT QID PRN PRN Reason: Pain, moderate (4-7) Last Admin: 10/18/16 05:27 Dose: 1 dose Bismuth Subsalicylate (Pepto-Bismol) 262 mg PO BID [facility] Last Admin: 10/27/16 17:31 Dose: Not Given Collagenase (Santyl) 1 gm TOP BID [facility] Last Admin: 10/27/16 17:31 Dose: 1 applic Al Hydrox/Mg Hydrox/Simethicone 30 ml/Diphenhydramine HCl 75 mg/Lidocaine 30 ml 0 ml PO Q2H PRN PRN Reason: Mouth/Throat Pain Last Admin: 10/27/16 09:50 Dose: 10 ml Diphenhydramine HCl (Benadryl) 25 mg IVP Q4H PRN PRN Reason: Allergy symptoms Last Admin: 10/27/16 21:54 Dose: 25 mg Home Med (Home Med) 1 unit PO Q12H PRN PRN Reason: Inflammation Last Admin: 10/18/16 11:03 Dose: 1 unit Meropenem 1g/NS 100mL IVPB (Meropenem 1g/Ns 100ml Ivpb) 1 gm in 100 mls @ 100 mls/hr IVPB Q12 RODRÍGUEZ PRN Reason: Protocol Stop: 11/01/16 06:01 Last Admin: 10/27/16 21:55 Dose: 100 mls/hr Sodium Chloride (Sodium Chloride 0.9%) 1,000 mls @ 40 mls/hr IV .Q24H [facility] Last Admin: 10/27/16 15:04 Dose: Not Given Multivitamins/Vitamin C 10 ml/Chromium/Copper/Manganese/Zinc 1 ml/ Amino Acids 2,011 mls @ 83.792 mls/hr IV .Q24H [facility] Last Admin: 10/27/16 17:45 Dose: 83.792 mls/hr Fat Emulsion Intravenous (Intralipid 20%) 250 mls @ 21 mls/hr IV DAILY@1800 [facility] Last Admin: 10/27/16 17:44 Dose: 21 mls/hr Sodium Chloride (Sodium Chloride 0.9%) 1,000 mls @ 100 mls/hr IV .Q10H [facility] Last Admin: 10/28/16 00:30 Dose: 100 mls/hr Metoprolol Tartrate (Lopressor) 25 mg PO BID [facility] Last Admin: 10/27/16 17:24 Dose: 25 mg Metoprolol Tartrate (Lopressor) 5 mg IVP Q6H PRN PRN Reason: Sustained HR > 130 Last Admin: 10/25/16 01:36 Dose: 5 mg Morphine Sulfate (Morphine) 4 mg IV Q3 PRN PRN Reason: Pain, severe (8-10) Last Admin: 10/28/16 07:57 Dose: 4 mg Multi-Ingredient Ointment (Hydrophor Oint) 0 gm TOP Q6H [facility] Last Admin: 10/28/16 08:01 Dose: 1 applic Octreotide Acetate (Sandostatin) 100 mcg SC Q8 [facility] Last Admin: 10/25/16 06:05 Dose: 100 mcg Pantoprazole Sodium (Protonix Inj) 40 mg IVP DAILY [facility] Petrolatum (Desitin Maximum Strength Topical 40% Oint) 1 gm TOP Q4H PRN PRN Reason: Rash Last Admin: 10/23/16 22:39 Dose: 1 applic Sucralfate (Carafate Oral Susp) 1 gm PO BID RODRÍGUEZ Last Admin: 10/27/16 17:45 Dose: Not Given Throat Lozenges (Cepastat) 1 francis MT Q2H PRN PRN Reason: Sore Throat Last Admin: 10/22/16 22:01 Dose: 1 francis Valganciclovir (Valcyte) 450 mg PO BID RODRÍGUEZ Stop: 10/28/16 18:01 Last Admin: 10/27/16 18:02 Dose: 450 mg - Labs Labs: 10/28/16 06:00 10/28/16 06:00 PT 13.6 Seconds (9.9-11.8) H 10/26/16 06:24 INR 1.26 (0.93-1.08) H 10/26/16 06:24 APTT 33.1 Seconds (23.7-30.8) H 10/26/16 06:24 - Constitutional Appears: Chronically Ill - Neck Exam Neck Exam: absent: Lymphadenopathy, Meningismus - Respiratory Exam Respiratory Exam: Decreased Breath Sounds - Cardiovascular Exam Cardiovascular Exam: +S1, +S2 - GI/Abdominal Exam GI & Abdominal Exam: Soft. absent: Tenderness Assessment and Plan - Assessment and Plan (Free Text) Plan: Assessment New onset SIRS, R/O sepsis Partial small bowel obstruction, persistent Acute stomatitis and mucositis, as well as esophageal ulcers R/O CMV Neutropenia probably from chemotherapy, resolved HTN 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 S/P colectomy in 2014 history of UTI GERD anxiety Plan continue Mycamine and Valganciclovir pending esophageal ulcer biopsy results - discussed with Dr. Null Reviewed repeat CT scan of the abdomen and pelvis which shows the partial small bowel obstruction / stricture and she continues to be on parenteral nutrition will order repeat blood cx, urine cx, PCT, CXR, stool for C. diff. Will continue to follow clinically Overall prognosis is poor
--- NOTE | 2016-10-28 16:28 | CON ---
DATE: 10/28/2016 She is seen in bed with her sister. She is comfortable with temperature of 100.1. She has received multiple blood products, eating a little bit, passing gas and having bowel movements. She would not allow me to see the sacral decubiti. We will do this tomorrow as a coordinated team with the residen ts and the nurses. Note is made of her colectomy, sigmoidoscopy, radiation and lytic lesion which is probably the source of the decubiti. Hung Jeffers MD cc: [id number] TT: 10/28/2016 16:28:03 Confirmation # [id number] Dictation # [id number] mn
--- NOTE | 2016-10-28 16:41 | PN ---
DATE: 10/28/2016 SUBJECTIVE: This patient was seen and evaluated earlier. The patient overall feels much better. Her abdominal pain has decreased. She did have a few episodes of bright red blood per rectum. Overall, feels better compared to before. PHYSICAL EXAMINATION: VITAL SIGNS: T-max was 100.1, blood pressure 134/77, respirations 20, O2 sat is 99. HEENT: Atraumatic, anicteric. Cachectic looking. NECK: Supple. HEART: S1, S2 heard. LUNGS: Bilateral air entry present, slightly reduced in the base. ABDOMEN: Soft. Less tender, no rebound or guarding. EXTREMITIES: No edema, no cyanosis. LABORATORY DATA: WBC 14.3, hemoglobin 10.9, hematocrit 30.4, platelets 76. Chemistry is potassium 3.4, calcium 7.1, total bilirubin is 2.5, alkaline phosphatase is 161. IMPRESSION: 1. This is a 61-year-old patient with rectal carcinoma status post anterior resection, status post chemoradiation, admitted with neutropenia, sepsis, urosepsis initially and her hospital course was complicated with partial small- bowel obstruction, gastrointestinal bleeding. The patient received multiple units of blood transfusion. Had an upper GI endoscopy done, which showed ulcerations in the esophagus extending from 25-30 cm level and appearance was more suggestive of CMV and the patient has been started on valganciclovir by ID. I did discuss with Dr. Avalos. 2. Systemic inflammatory response syndrome, present is on broad-spectrum antibiotic coverage again. 3. Gastrointestinal bleeding, most likely secondary to the ulceration at the anastomotic area. RECOMMENDATIONS: We would recommend: 1. Followup of the electrolytes and supplement. 2. On a clear liquid diet. The patient does have some small bowel distention, but having loose bowel movements, is partially obstructed. The patient is also followed by the surgery. Thank you very much for allowing us to participate in the care of the patient. Tong Null MD cc: [id number] TT: 10/28/2016 16:41:25 Confirmation # [id number] Dictation # [id number] mark WALLACE
[2016-10-28 16:50] LABS: URINE BILIRUBIN NEGATIVE (NEGATIVE); URINE BLOOD LARGE (NEGATIVE); URINE GLUCOSE (UA) NEGATIVE (NEGATIVE); URINE LEUKOCYTE ESTERASE TRACE Leu/uL (NEGATIVE); URINE NITRATE NEGATIVE (NEGATIVE); URINE PROTEIN 30 mg/dL (<30 mg/dL); URINE UROBILINOGEN 0.2 E.U./dL (<1 E.U./dL)
[2016-10-28 17:30] LABS: URINE APPEARANCE SLIGHT-CLOUDY (CLEAR)
[2016-10-28 17:31] LABS: URINE AMORPHOUS SEDIMENT TRACE; URINE RBC 25 - 30 /hpf (0-2)
[2016-10-28] MEDS: Fat Emulsion 20% IV 250 ML IV SCH (19:05)
[2016-10-28] MEDS: DEXT IV SCH (19:05)
[2016-10-28] MEDS: AMINO IV SCH (19:05)
[2016-10-28] MEDS: MULTIVITAMIN IV SCH (19:05)
[2016-10-28] MEDS: TRACE ELEMENTS IV SCH (19:05)
[2016-10-28] MEDS: [UNRECOGNIZED DRUG - OTHER] IV SCH (19:05)
--- NOTE | 2016-10-28 22:04 | PN ---
DATE: 10/28/2016 LOCATION: The patient is in room 364, bed 2. SUBJECTIVE: The patient is seen lying in bed. She appears more a little bit more cheerful today. A bdominal pain is better. More importantly she was able to eat something today. She took some liquid s including [place], which is the most important changing event over the last week. She has been havi ng significant difficulty in swallowing with burning and pain and odynophagia, which appears about 50 % better. The patient had another significant episode of loose bowel movements early this a.m. Some of it was dark. Blood count based on today's blood work seems to be holding at this time. She has been more cheerful also and I told her that Dr. Mccracken will be seeing her later on this afternoo n. We will make plans for surgical procedure depending upon what his intake will be and what his inp ut is going to be about the plans for surgery tomorrow. The patient had a temperature earlier this a .m. of 102. She is feeling a whole lot better now. The patient has been started on ganciclovir and she feels that that may have turned things around for her at this current time. OBJECTIVE: VITAL SIGNS: The patient's vital signs are stable. She was able to take pills by mouth today and so pressure looks also a little bit better. Vital signs reveal T-max of 100.1, pulse rate is 102, bloo d pressure is 134/77, respirations 20, O2 sat is 99%. HEENT: Head is normocephalic, atraumatic. Conjunctivae are pale. Sclerae are anicteric. Pupils ar e equally reactive to light and accommodation. Examination of the oropharynx reveals no significant findings at this time. Tongue is moist, no significant mucositis is seen. Pupils are equally reacti ve to light and accommodation. NECK: Supple. There is no adenopathy. No jugular venous distention is noted. LUNGS: Clear to percussion and auscultation without any wheezes, rales, or rhonchi. HEART: Reveals PMI to be in the 5th intercostal space inside the midclavicular line. S1 and S2 are normal. No gallop or murmur is heard. ABDOMEN: Mildly distended. There is no tenderness at this time, though she has hyperactive bowel so unds. EXTREMITIES: Reveals 2+ edema of the lower extremities. The patient has edema of the upper extremit ies as well. Previously noted pain above the knee on the right side appears to be better, may have b een present and numbness when she had kept the positioned leg in one position for a long time. NEUROLOGIC: Reveals no focal deficits. The patient has no calf tenderness. LABORATORY DATA: From today were reviewed. White count is 14.3, RBC 3.28, hemoglobin is 10.9, hemat ocrit 30.4, platelet count 76,000. Chemistries reveal the following: K is 3.4, chloride 120 with a C O2 is 18, BUN is 54 and creatinine is 0.9 at this time. Random sugar was 127, calcium 7.1, total olga irubin is 2.5, alkaline phosphatase is 161. Total protein is 4.4 with an albumin of 1.8. LFTs are n ormal. ____ could be just ongoing hemolysis. Will try to ____ better in the a.m. MEDICATIONS: The patient's medications were reviewed. She is getting albumin 25 grams daily, Benadr yl 25 IV q. 4 hours p.r.n., sucralfate 1 gram b.i.d., lozenges p.r.n. She is on and jel ly topically to the sacral area twice a day. She is on Hydrea for ointment topically q. 6 hours p.r. n. She is on intralipid 250 mL given every day. She is on metoprolol tartrate 5 mg IV q. 6 hours p. r.n. heart rate greater than 130. She is on metoprolol 25 mg b.i.d. She is on Magic mouthwash 1 teas noemy q. 6 hours p.r.n. She is on meropenem 1 gram IV q. 12 hours. She is on morphine 4 mg IV q. 3 hours p.r.n. She is on TPN at 2110 and also 80 mL an hour. She is on Orajel topically for he r mouth. She is on Pepto-Bismol p.r.n., Protonix 40 IV daily. She is on Sandostatin, which is on ho ld. She is on Santyl 1 gram b.i.d. topically for the sacral decubitus. She is on IV fluids at 40 mL an hour. She is on IV fluids 40 mL an hour to keep the vein open for the TPN. ASSESSMENT NOTES AND PLAN: The patient has significant issues with her chemotherapy related to side effects of stage IV metastatic colon carcinoma. The patient has improved with less side effects. Ne utropenia has improved. Kidney function has continued to improve. The patient has borderline hyperk alemia, has hyper proteinuric acidosis, which is being corrected. She has protein calorie malnutriti on, for which she is on total nutrient admixture (TPN). She had clinically at least evidence of ulce rations in the esophagus consistent with a infection. Her acyclovir was switched over to ganci clovir and hopefully that should help her. She is on 50 mg p.o. b.i.d. and that should help he r significantly as far as the esophagus is concerned. The patient is going to be assessed for possib le surgery which would include surgical resection followed by a temporary colostomy versus permanent colostomy depending on the intraoperative findings. Salazar catheter is still in place. We are going t o leave it in until she is significantly improved before for we put her on a schedule to see fo r cauda equina syndrome, has improved post-radiation. Patient is post-2 cycles of FOLFOX with Avasti n at this time. Routine post exam instructions have been given to the patient. Labs for a.m. have b een requested. The patient's potassium is going to be replaced today by the renal service. Spoke at length to the patient and her sister at the bedside, counseled them, and explained to them to be posi tive as things could just turnaround and we may be able to focus on managing her cancer in the near f uture. Kedar Hendricks MD cc: [id number] TT: 10/28/2016 12:54:44 Confirmation # [id number] Dictation # [id number] jn
[2016-10-29] MEDS: Morphine 4 mg/ml ISec IV PRN ×6 (02:27→23:47)
[2016-10-29] MEDS: Petrolatum-Mineral Oil Oint (100gm) TOP SCH ×4 (03:00→21:28)
[2016-10-29 06:42] LABS: ALB/GLOB RATIO 0.8 (1.1-1.8); ALBUMIN 1.8 g/dL (3.0-4.8); ALT/SGPT 34 U/L (7-56); AST/SGOT 20 U/L (15-39); BLOOD UREA NITROGEN 45 mg/dL (7-21); GFR AFRICAN-AMERICAN > 60; GFR NON-AFRICAN AMERICAN > 60
[2016-10-29 06:57] LABS: CALCIUM 6.9 mg/dL (8.4-10.5)
[2016-10-29 07:37] LABS: MAGNESIUM 1.4 mg/dL (1.7-2.2)
[2016-10-29 07:53] LABS: HEMOGLOBIN 9.9 gm/dL (12.0-16.0); MEAN CELL VOLUME 90.4 fL (80.0-105.0); MEAN CORPUSCULAR HEMOGLOBIN 31.7 pg (25.0-35.0); MEAN CORPUSCULAR HGB CONC 35.1 g/dl (31.0-37.0); PLATELET COUNT 50 10^3/uL (120.0-450.0); RBC 3.12 10^6/uL (3.5-6.1); RED CELL DISTRIBUTION WIDTH 18.2 % (11.5-14.5); WHITE BLOOD COUNT 11.3 10^3/ul (4.5-11.0)
--- NOTE | 2016-10-29 08:05 | PN ---
DATE: 10/27/2016 The patient was seen by me in room 364, bed 2. PROBLEMS: This is a 61-year-old female with metastatic colorectal cancer with cauda equina syndrome with partial stenosis of the rectosigmoid secondary to extrinsic compression by tumor. The tumor was also causing symptoms related to metastatic disease involving the sacral foramina segments on the right side associated with urinary retention with overflow. Status post radiation, status post 2 cycles of chemotherapy with FOLFOX6 plus Avastin. Was admitted to the hospital with a catherine sepsis, dehydration, neutropenic fever and dehydration associated with renal azotemia. Most of those parameters have corrected now. Kidney functions have improved. The patient has still persistent danilo nophagia and dysphagia related to painful source and discomfort in trying to to swallow liquids or any solids. The patient has been having intermittent diarrhea and more recently over the last 2 days has been having episodes of anna bleeding coming from the lower rectum. The patient was taken to the endoscopy suite yesterday afternoon. Had an upper endoscopy, which revealed significant ulcer ations in the esophagus consistent with more like a viral etiology, effects of chemotherapy. I n addition . Examination of the rectosigmoid with a sigmoidoscopy revealed a stenotic rectosigm oid at the sigmoid level. The scope could not be passed further but the feeling was the bleeding was coming from that source where the tumor is higher up penetrating from outside into the sigmoid area and causing the bleeding. Since having temperature for which she is on antibiotics. cul tures have been negative. The patient has received a total of 4 units of blood. She has not had any further significant active rectal bleeding. Earlier this a.m., I think she had one episode. The kim valentin is still in significant pain. Complaining of abdominal cramps for which she is requiring morph ine to alleviate the pain. No significant nausea. No significant vomiting. The patient is alert, v reba depressed and still complaining of significant dryness of mouth and soreness in the oropharynx. OBJECTIVE: GENERAL: The patient is examined in bed. VITAL SIGNS: Reveal a T-max of 98.43, pulse 71, respirations 20, blood pressure is 155/79, pulse ox 96%. Earlier the temperature was 101. MEDICATIONS: The patient's medications were reviewed. She is on Tylenol mg p.o. q.4 hours p.r .n. She is on benzocaine Orajel q.i.d. p.r.n. for the mouth sores. She is on Pepto-Bismol b.i.d. fo r which she has not taken for her stomach. She is getting collagenase 1 gram topically b.i.d. to the sacral decubitus. She is also on Magic mouthwash p.r.n. as needed. She is on Benadryl 25 IV q.4 ho urs p.r.n. for symptoms of allergy or burning sensation. The patient is on acyclovir 370 mg IV daily . She is on Merrem 1 gram IV piggyback q.12 hours. She is on IV fluids at 40 mL an hour. She is on TPN. TPN is mL over 24 hours at 83 mL an hour. She is on given once daily. She is on metoprolol tartrate 25 b.i.d., metoprolol tartrate 5 mg IV q.6 hours p.r.n. for heart rate greater th an 130. She is on morphine sulfate 4 mg IV q.3 hours p.r.n. She is on Sandostatin 100 mcg subQ q.8 hours p.r.n., last dose administered was 10/25. She is on Carafate 1 gram b.i.d. and she is also on lozenges for sore throat as needed. LABORATORY DATA: From today were reviewed. White count is 12.7, hemoglobin 11.4, hematocrit 29, sybil telet count was 95,000. Electrolytes reveal sodium of 143, K is 3.5, chloride 119, CO2 is 20, BUN 64 , creatinine of 1.1. is 111. INR is . PTT is 33.1 seconds. PHYSICAL EXAMINATION: GENERAL: The patient is examined in bed, appears to be nontoxic, depressed, crying. She has a lot o f questions for me, which will be discussed at great length. Her sister was by the bedside when we t alked. HEENT: Head is normocephalic, atraumatic. Temporal muscle wasting is noted. Conjunctivae are pale. Examination of the oropharynx reveals tongue to be moist, no significant ulceration is noted, but s he tells me the back of the throat and the oropharynx she badillo when she tries to take liquids, despi te taking all the medicines prescribed. NECK: Supple. There is no adenopathy. LUNGS: Reveals them to be clear to percussion and auscultation. CARDIOVASCULAR: Reveals S1 and S2 to be normal. No gallop or murmur is heard. ABDOMEN: Soft, mildly distended. She still has discomfort in the right lower quadrant of the abdome n extending to the left side. There is no evidence of surgical abdomen. Bowel sounds are present an d hyperactive. EXTREMITIES: The patient has anasarca both lower extremities. She is complaining of pain behind the right knee. Both legs are swollen with fluid, subcutaneous edema. Total protein has gone down. Al bumin is down to less than 2. Along with this, the patient has been having low calcium, which is rel ated to the hypoalbuminemia. NEUROLOGIC: Higher functions are normal. No focal deficits are seen. ASSESSMENT NOTES AND PLAN: The patient has a new onset of systemic inflammatory response with fever; no source of the infection has been identified. She is on antibiotics. Partial small-bowel obstruc tion and rectal bleeding related to the known source of recurrent rectosigmoid cancer documented rece ntly; acute stomatitis and esophagitis with esophageal ulcers documented on the recent upper endoscop y done yesterday. I spoke to Dr. Null in great detail who feels that these ulcers do not have th e picture of being induced by medications, could be viral in etiology. Biopsies were done and the re sults are pending. In the meantime, he empirically asked me to start the patient on antiviral drug a gainst cytomegalovirus. 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 Neutropenia from chemotherapy appears to be resol yoshi. The patient has hypokalemia. Renal azotemia is slowly improving. Protein calorie malnutrition , for which she is on TPN. Stage IV colon carcinoma with cauda equina syndrome, documented retroperi toneum metastases, bone metastases, gastroesophageal reflux disease and anxiety. PLAN: Will continue Mycamine and the acyclovir is going to be changed to pending the biopsy, w greg hopefully we will have on Saturday. Had a detailed discussion lasting more an hour with the patie nt and her sister who happened to be . Discussed all the findings and from the time she w as admitted during this admission . The patient again reiterated that she wants everything done . She is not ready to . I then put a call in to Dr. Null to find out the results of where th e source of the bleeding could be. I spoke with Dr. Mccracken, the surgeon on the case who said he is going to be seeing her tomorrow and going to make a decision for some sort of palliative surgery to resolve the bleeding issue, that is coming from the recurrent bleeding from the rectosigmoid recur rent carcinoma . CAT scan of the abdomen still shows partial bowel obstruction and she is still on parenteral nutrition. The family is seeking a second opinion and I showed them whoever she wants , we will call them. In the meantime, if they wanted any opinions from [facility] or [facility], I would be happy to set up the of the transfer for the arrangements for the patient to be seen by that person or that physician. I told her at this time at least to contemplate on the plan that s he may need something surgically done as the chemotherapeutic side effects , and I think we need to figure out how to help her with the recurrent bleeding so she can get on this in life. Most of i t is from recurrent cancer. I again reiterated to the family that she has recurrent metastatic color ectal cancer even though she has only had 2 cycles of chemotherapy. Her tumor has been exhaustively tested, the tumor is KRAS mutation positive, so she is not a candidate for any of the drugs that woul d be directed against the KRAS gene. Her ____ was not high so she is not a candidate for any of the newer drugs such as or Keytruda. The patient will obviously need chemotherapy. They asked me if she was a candidate for if we can . If she gets a little bit better and stronger, she may be a candidate for a clinical trial. In the meantime, I said to her right now her performance st [facility] is so poor that they would not accept her in any clinical study. In the meantime, I the s tandard of care for her was what was given to her, which is FOLFOX6 and Avastin and if she does not w ant chemotherapy, we can talk further palliative maneuvers as well. Since the patient wants everythi ng done at least to keep her alive, these are the processes that have to take place. Hopefully, we w ill see what the blood work from brings. We are going to monitor her very carefully. Surgery is on the case, GI is on the case, ID is on board, renal is on board and is watching over her electro lytes and fluid management. Time spent was more than 90 minutes today with the patient and the family for all the complex issues and questions that were raised by the family. Kedar Hendricks MD cc: [id number] TT: 10/27/2016 22:28:36 Confirmation # [id number] Dictation # [id number] chastity
[2016-10-29] MEDS ORDERED: Magnesium Sulfate 1 gm in D5W 1 GM/100 ML BAG IVPB ONE (08:37)
[2016-10-29] MEDS: Sucralfate 1 gm/10 ml Oral Susp UD PO SCH ×2 (09:45→18:27)
[2016-10-29] MEDS: Collagenase 250 Units/gm Ointment(30 gm) TOP SCH ×2 (09:46→17:19)
[2016-10-29] MEDS: Bismuth Subsalicylate 262 mg/15 ml Sus (240 ml) PO SCH ×2 (09:46→17:19)
[2016-10-29] MEDS: Vancomycin 1gm in NS 250ml 1 GM/250 ML BAG IVPB SCH ×2 (09:47→20:46)
[2016-10-29] MEDS: Sodium Chloride 0.9% 1,000 ML IV SCH (09:47)
--- NOTE | 2016-10-29 10:30 | CP.PCM.PN ---
Addendum entered and electronically signed by Carlos Feng DO 10/29/16 16:06: Correction: Patient REFUSING wound examination Original Note: <Carlos Feng - Last Filed: 10/29/16 15:50> Subjective - Date & Time of Evaluation Date of Evaluation: 10/29/16 Time of Evaluation: 07:28 - Subjective Subjective: Carlos Feng D.O. PGY-1, General Surgery Progress Note: Dr. Kaykay Brunner 61 year old female with stage IV colon CA s/p colectomy with reversal, s/p FOLFOX-6 chemo x2 plus XRT to sacral metastasis, who was admitted with diarrhea. Patient had lower GI bleeding and consultation was placed for general surgery. Patient was seen and examined at bedside with surgical team. Patient at this time is relatively unchanged, had no specific complaints other than having some fevers overnight. Objective - Vital Signs/Intake and Output Vital Signs (last 24 hours): Temp Pulse Resp BP Pulse Ox 101.4 F H 139 H 21 158/72 H 94 L 10/29/16 07:47 10/29/16 07:47 10/29/16 07:47 10/29/16 07:47 10/29/16 07:47 Intake and Output: 10/29/16 10/29/16 06:59 18:59 Output Total 1375 Balance -1375 - Medications Medications: Current Medications Acetaminophen (Tylenol 325mg Tab) 650 mg PO Q4 PRN PRN Reason: Fever >100.4 F Last Admin: 10/29/16 03:35 Dose: 650 mg Acetaminophen (Tylenol 650 Mg Supp) 650 mg RC Q4H PRN PRN Reason: Fever >100.4 F Last Admin: 10/29/16 07:02 Dose: 650 mg Albumin Human (Albumin Human 25% (25 Gm/100 Ml)) 25 gm IV DAILY [facility] Stop: 10/30/16 10:01 Last Admin: 10/28/16 09:47 Dose: 25 gm Benzocaine (Orajel Pm Maximum Strength) 0 gm MT QID PRN PRN Reason: Pain, moderate (4-7) Last Admin: 10/18/16 05:27 Dose: 1 dose Bismuth Subsalicylate (Pepto-Bismol) 262 mg PO BID [facility] Last Admin: 10/29/16 09:46 Dose: 262 mg Collagenase (Santyl) 1 gm TOP BID [facility] Last Admin: 10/29/16 09:46 Dose: 1 applic Al Hydrox/Mg Hydrox/Simethicone 30 ml/Diphenhydramine HCl 75 mg/Lidocaine 30 ml 0 ml PO Q2H PRN PRN Reason: Mouth/Throat Pain Last Admin: 10/27/16 09:50 Dose: 10 ml Diphenhydramine HCl (Benadryl) 25 mg IVP Q4H PRN PRN Reason: Allergy symptoms Last Admin: 10/27/16 21:54 Dose: 25 mg Home Med (Home Med) 1 unit PO Q12H PRN PRN Reason: Inflammation Last Admin: 10/18/16 11:03 Dose: 1 unit Multivitamins/Vitamin C 10 ml/Chromium/Copper/Manganese/Zinc 1 ml/ Amino Acids 2,011 mls @ 83.792 mls/hr IV .Q24H [facility] Last Admin: 10/28/16 19:05 Dose: 83.792 mls/hr Sodium Chloride (Sodium Chloride 0.9%) 1,000 mls @ 100 mls/hr IV .Q10H [facility] Last Admin: 10/29/16 09:47 Dose: 100 mls/hr Potassium Chloride (Potassium Chloride 20 Meq/100 Ml) 20 meq in 100 mls @ 50 mls/hr IVPB Q2H [facility] Stop: 10/29/16 11:29 Last Admin: 10/29/16 09:50 Dose: 50 mls/hr Meropenem 1g/NS 100mL IVPB (Meropenem 1g/Ns 100ml Ivpb) 1 gm in 100 mls @ 100 mls/hr IVPB Q8 [facility] PRN Reason: Protocol Stop: 11/05/16 14:01 Vancomycin HCl (Vancomycin 1gm) 1 gm in 250 mls @ 167 mls/hr IVPB Q12H [facility] PRN Reason: Protocol Last Admin: 10/29/16 09:47 Dose: 167 mls/hr Metoprolol Tartrate (Lopressor) 25 mg PO BID [facility] Last Admin: 10/29/16 09:46 Dose: 25 mg Metoprolol Tartrate (Lopressor) 5 mg IVP Q6H PRN PRN Reason: Sustained HR > 130 Last Admin: 10/25/16 01:36 Dose: 5 mg Morphine Sulfate (Morphine) 4 mg IV Q3 PRN PRN Reason: Pain, severe (8-10) Last Admin: 10/29/16 05:55 Dose: 4 mg Multi-Ingredient Ointment (Hydrophor Oint) 0 gm TOP Q6H [facility] Last Admin: 10/29/16 07:36 Dose: 1 applic Octreotide Acetate (Sandostatin) 100 mcg SC Q8 [facility] Last Admin: 10/25/16 06:05 Dose: 100 mcg Ondansetron HCl (Zofran Inj) 4 mg IVP Q4H PRN PRN Reason: Nausea/Vomiting Last Admin: 10/28/16 20:18 Dose: 4 mg Pantoprazole Sodium (Protonix Inj) 40 mg IVP DAILY [facility] Last Admin: 10/29/16 09:46 Dose: 40 mg Petrolatum (Desitin Maximum Strength Topical 40% Oint) 1 gm TOP Q4H PRN PRN Reason: Rash Last Admin: 10/23/16 22:39 Dose: 1 applic Sucralfate (Carafate Oral Susp) 1 gm PO BID [facility] Last Admin: 10/29/16 09:45 Dose: 1 gm Throat Lozenges (Cepastat) 1 francis MT Q2H PRN PRN Reason: Sore Throat Last Admin: 10/22/16 22:01 Dose: 1 francis - Labs Labs: 10/29/16 06:20 10/29/16 06:20 PT 13.6 Seconds (9.9-11.8) H 10/26/16 06:24 INR 1.26 (0.93-1.08) H 10/26/16 06:24 APTT 33.1 Seconds (23.7-30.8) H 10/26/16 06:24 - Constitutional Appears: No Acute Distress, Chronically Ill - Head Exam Head Exam: ATRAUMATIC, NORMOCEPHALIC - Eye Exam Eye Exam: EOMI, Normal appearance - ENT Exam ENT Exam: Mucous Membranes Moist - Neck Exam Additional comments: soft, supple - Respiratory Exam Respiratory Exam: absent: Accessory Muscle Use, Respiratory Distress - Cardiovascular Exam Cardiovascular Exam: RRR, +S1, +S2 - GI/Abdominal Exam GI & Abdominal Exam: Soft, Normal Bowel Sounds. absent: Distended, Guarding, Tenderness - Extremities Exam Extremities Exam: Pedal Edema (mild) - Skin Additional comments: deferred sacral exam today Assessment and Plan - Assessment and Plan (Free Text) Assessment: 61 year old female with stage IV colon CA s/p colectomy with reversal, s/p FOLFOX-6 chemo x2 plus XRT to sacral metastasis, who was admitted with diarrhea. Patient had lower GI bleeding and consultation was placed for general surgery. Plan: Following H&H closely, currently downtrending Coags somewhat improved Leukocytosis somewhat improved but continues to have fevers Discussed with primary team Will discuss with attending physician. Thank you for the pleasure of participating in the care of this patient. <Yoan Mccracken - Last Filed: 12/02/16 23:45> Objective - Vital Signs/Intake and Output Vital Signs (last 24 hours): Temp Pulse Resp BP Pulse Ox 97.8 F 101 H 18 170/89 H 100 12/02/16 16:00 12/02/16 16:00 12/02/16 16:00 12/02/16 16:00 12/02/16 16:00 Intake and Output: 12/02/16 12/03/16 18:59 06:59 Intake Total 120 Output Total 450 600 Balance -450 -480 - Medications Medications: Current Medications Acetaminophen (Tylenol 650 Mg Supp) 650 mg RC Q4H PRN PRN Reason: Fever >100.4 F Last Admin: 11/01/16 21:18 Dose: 650 mg Al Hydrox/Mg Hydrox/Simethicone 30 ml/Diphenhydramine HCl 75 mg/Lidocaine 30 ml 0 ml PO QID [facility] Last Admin: 12/02/16 21:01 Dose: Not Given Diphenhydramine HCl (Benadryl) 50 mg IVP HS PRN PRN Reason: Insomnia Last Admin: 11/27/16 01:00 Dose: 50 mg Ergocalciferol (Drisdol 50,000 Intl Units Cap) 1 cap PO Q7D [facility] Last Admin: 11/19/16 18:04 Dose: Not Given Ferrous Sulfate (Feosol) 324 mg PO TID [facility] Last Admin: 12/02/16 18:16 Dose: Not Given Fluconazole (Diflucan) 200 mg PO DAILY [facility] PRN Reason: Protocol Stop: 12/12/16 10:01 Last Admin: 12/02/16 09:44 Dose: Not Given Home Med (Home Med) 1 unit PO Q12H PRN PRN Reason: Inflammation Last Admin: 10/18/16 11:03 Dose: 1 unit Hydralazine HCl (Apresoline) 10 mg IVP Q4H PRN PRN Reason: Systolic Blood Pressure Hydromorphone HCl (Dilaudid) 1 mg IVP Q1H PRN PRN Reason: Pain, moderate (4-7) Last Admin: 12/02/16 21:06 Dose: 1 mg Levetiracetam (Keppra 500mg Ivpb) 500 mg in 100 mls @ 400 mls/hr IV Q12 [facility] Last Admin: 12/02/16 21:06 Dose: 400 mls/hr Potassium Chloride/Dextrose (Potassium Chl 40 Meq In D5w) 1,000 mls @ 60 mls/ hr IV .[id number] [facility] Last Admin: 12/02/16 18:17 Dose: Not Given Magnesium Hydroxide (Milk Of Magnesia) 30 ml PO DAILY PRN PRN Reason: skin irritation Last Admin: 12/02/16 14:09 Dose: 30 ml Magnesium Oxide (Mag-Ox) 400 mg PO BID [facility] Last Admin: 12/02/16 18:16 Dose: Not Given Multi-Ingredient Ointment (Hydrophor Oint) 0 gm TOP Q6H PRN PRN Reason: Dry lip Multivitamins (Thera Tab) 1 tab PO 0800 [facility] Last Admin: 12/02/16 08:10 Dose: Not Given Propranolol HCl (Inderal La) 120 mg PO DAILY [facility] Last Admin: 12/02/16 09:44 Dose: Not Given Sucralfate (Carafate Oral Susp) 1 gm PO BID [facility] Last Admin: 12/02/16 18:16 Dose: Not Given - Labs Labs: 12/02/16 06:00 12/02/16 06:00 PT 12.9 Seconds (9.9-11.8) H 12/02/16 06:00 INR 1.19 (0.93-1.08) H 12/02/16 06:00 APTT 32.9 Seconds (23.7-30.8) H 12/02/16 06:00 Assessment and Plan - Assessment and Plan (Free Text) Plan: Patient was seen and examined by me. I agree with assessment and plan as per resident's note.
[2016-10-29] MEDS: Albumin Human 25% (25 gm/100 ml) IV SCH (11:24)
[2016-10-29 11:41] LABS: PH,URINE 5.5 (4.7-8.0); URINE BILIRUBIN NEGATIVE (NEGATIVE); URINE BLOOD LARGE (NEGATIVE); URINE GLUCOSE (UA) NEGATIVE (NEGATIVE); URINE LEUKOCYTE ESTERASE NEGATIVE Leu/uL (NEGATIVE); URINE NITRATE NEGATIVE (NEGATIVE); URINE PROTEIN 30 mg/dL (<30 mg/dL); URINE UROBILINOGEN 0.2 E.U./dL (<1 E.U./dL)
[2016-10-29 11:44] LABS: URINE COLOR YELLOW (YELLOW)
[2016-10-29 11:46] LABS: URINE APPEARANCE SL CLOUDY (CLEAR)
[2016-10-29 11:48] LABS: URINE BACTERIA FEW (NEG); URINE COARSE GRANULAR CAST TRACE /hpf (0-2); URINE EPITHELIAL CELLS 0 - 2 /hpf (0-5); URINE RBC 15 - 20 /hpf (0-2)
[2016-10-29] MEDS: Meropenem 1g/NS 100mL IVPB 1 GM/100 ML PIGGYBACK IVPB SCH ×2 (13:28→22:26)
[2016-10-29] MEDS: Ergocalciferol 50,000 Intl Units Cap PO SCH (13:36)
--- NOTE | 2016-10-29 14:38 | PN ---
DATE: 10/29/2016 SUBJECTIVE: The patient is currently seen on 3R. She has been receiving K riders throughout the [facility]. I will adjust her hyperalimentation today to increase her potassium significantly in her hyper alimentation. She continues to have diarrhea. She has resolving stomatitis. She is complaining of some mild abdominal discomfort. MEDICATIONS: Medication list reviewed. The patient is currently on albumin, Benadryl, Carafate, Cep astat, Desitin, triamcinolone dental paste, Lopressor, meropenem, morphine, hyperalimentation, Orajel , Pepto-Bismol, Protonix, Sandostatin, Santyl, normal saline, which will be discontinued; Tylenol, IV vancomycin, and Zofran. OBJECTIVE: INTAKE AND OUTPUT: Intake 4392, output 2350. VITAL SIGNS: Temperature 101.4, pulse 139, blood pressure 158/72, respiratory rate of 21. Oxygen sa turation is 94%. HEENT: Normocephalic, atraumatic. Conjunctivae are pale. Sclerae are nonicteric. NECK: Supple, no neck vein distention. CHEST: Clear to auscultation and percussion. CARDIOVASCULAR: S1, S2 normal. No murmurs, rubs, or gallops. ABDOMEN: Soft. Bowel sounds normal. Mild tenderness on palpation diffusely. No rebound, no guardi ng. EXTREMITIES: Show trace to 1+ pitting ankle edema. LABORATORY DATA AND IMAGING: CBC: White blood cell count today is 11.3, hemoglobin down to 9.9, sybil telet count is 50,000. Chemistries: Sodium 143, potassium 3.8, chloride of 118 with a CO2 of 21, BU N 45 with a creatinine of 0.8. Glucose is 117. Calcium 6.9 with an albumin of 1.8. Corrected calci um is normal. Magnesium down to 1.4. The patient received a mag rider today. Bilirubin 2.0. Liver enzymes are otherwise normal. Vitamin D level was low at less than 12.8. MICROBIOLOGY: Urines are positive for E. coli. The patient was treated. Stools for C. diff have be en negative. Blood cultures are negative at 4 days. ASSESSMENT: 1. Acute renal failure, prerenal azotemia, resolving with hydration. Creatinine is now down to norm al. The patient appears to have mild diarrhea and we need to keep her intake and output in balance. We will try and avoid significant positive fluid balance as this will likely create more lower extre mity edema. 2. Status post mild hypernatremia. This has resolved. 3. 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 The patient being followed by oncology. 4. History of diarrhea. The patient is receiving Sandostatin with only mild improvement. Stools we re negative for Clostridium difficile. The patient is followed by gastrointestinal. She is felt to have enteritis. 5. Status post Escherichia coli urinary tract infection. 6. History of hypokalemia. I will significantly increase the potassium in her hyperalimentation in order to avoid the daily need for K riders. 7. History of anemia and thrombocytopenia, all secondary to metastatic colon cancer. PLAN: 1. The patient is vitamin D deficient. I will start patient on ergocalciferol 50,000 units weekly. 2. Try and balance I's and O's. I will discontinue normal saline. 3. Continue to monitor electrolytes closely post the adjustment of her hyperalimentation. Kyle Brooks MD cc: [id number] TT: 10/29/2016 14:38:02 Confirmation # [id number] Dictation # [id number] sn
--- NOTE | 2016-10-29 15:22 | PN ---
DATE: 10/29/2016 Seen and examined at the bedside earlier. The patient denies any nausea, vomiting. She is eating he r breakfast, which is clear liquids, tolerating so far, is not complaining of any abdominal pain. No acute overnight events reported. The patient although is having fevers. T-max was 102 yesterday ev ening. VITAL SIGNS: Her temp this morning is 101.4. This was repeated again at 11, almost 12, and it was 1 01.4. Now, she is 99.9. The patient received Tylenol. Her blood pressure is 158/72, pulse 130, res pirations 21, 94% O2 saturation. LABORATORIES: Today, WBC is 11.3, H and H is 9.9 and 28.2, platelets is 50. Her chem is sodium is 1 43, K is 2.8, BUN 45, creatinine is 0.8, her mag is 1.4, total bilirubin is 2.0, AST 20, ALT 34, alk phos is 101. She is getting potassium replacement and magnesium replacement. PHYSICAL EXAMINATION: HEENT: Sclera is anicteric. NECK: Supple. CARDIAC: S1, S2. LUNG SOUNDS: With decreased breath sounds, but good aeration. ABDOMEN: With bowel sounds, soft. It was not tender. No rebound or guarding. EXTREMITIES: No edema. ASSESSMENT: A 61-year-old female with rectal carcinoma, status post anterior resection, status post chemoradiation. Admitted with sepsis, urosepsis and neutropenia, found to have partial small bowel o bstruction and gastrointestinal bleeding thrombocytopenic. The patient had multiple blood bowers sfusions of packed red blood cells, fresh frozen plasma and platelets. The patient had an upper endo scopy done and found to have ulcerations in the esophagus from extending 25-30 cm level, biopsies obt ained, rule out cytomegalovirus. The patient was started on . The patient is status post gastr ointestinal bleed, she had a flex sig, likely secondary to ulcerations at the anastomotic area. PLAN: The patient is on IV antibiotics as per ID. Now, patient with fevers. Continue clear liquid diet. Follow up electrolytes and replace as necessary. She is on , morphine for pain, on merop enem. The patient is also on Lopressor, PPI and Carafate. The patient is also on vancomycin IV. The patient was seen and case discussed with Dr. Null. Yoana IQBAL cc: [id number] TT: 10/29/2016 15:22:09 Confirmation # [id number] Dictation # [id number] en
[2016-10-29] MEDS: Fat Emulsion 20% IV 250 ML IV SCH (18:27)
[2016-10-29] MEDS: [UNRECOGNIZED DRUG - OTHER] IV SCH (18:28)
[2016-10-29] MEDS: TRACE ELEMENTS IV SCH (18:28)
[2016-10-29] MEDS: DEXT IV SCH (18:28)
[2016-10-29] MEDS: MULTIVITAMIN IV SCH (18:28)
[2016-10-29] MEDS: AMINO IV SCH (18:28)
--- NOTE | 2016-10-29 19:05 | CP.PCM.PN ---
Subjective - Date & Time of Evaluation Date of Evaluation: 10/29/16 Time of Evaluation: 11:35 - Subjective Subjective: Patient continues to feel weak and tired, still with fevers. Objective - Vital Signs/Intake and Output Vital Signs (last 24 hours): Temp Pulse Resp BP Pulse Ox 101.4 F H 139 H 21 158/72 H 94 L 10/29/16 07:47 10/29/16 07:47 10/29/16 07:47 10/29/16 07:47 10/29/16 07:47 Intake and Output: 10/29/16 10/29/16 06:59 18:59 Output Total 1375 Balance -1375 - Medications Medications: Current Medications Acetaminophen (Tylenol 325mg Tab) 650 mg PO Q4 PRN PRN Reason: Fever >100.4 F Last Admin: 10/29/16 03:35 Dose: 650 mg Acetaminophen (Tylenol 650 Mg Supp) 650 mg RC Q4H PRN PRN Reason: Fever >100.4 F Last Admin: 10/29/16 07:02 Dose: 650 mg Albumin Human (Albumin Human 25% (25 Gm/100 Ml)) 25 gm IV DAILY [facility] Stop: 10/30/16 10:01 Last Admin: 10/28/16 09:47 Dose: 25 gm Benzocaine (Orajel Pm Maximum Strength) 0 gm MT QID PRN PRN Reason: Pain, moderate (4-7) Last Admin: 10/18/16 05:27 Dose: 1 dose Bismuth Subsalicylate (Pepto-Bismol) 262 mg PO BID [facility] Last Admin: 10/28/16 18:06 Dose: 262 mg Collagenase (Santyl) 1 gm TOP BID [facility] Last Admin: 10/28/16 19:00 Dose: 1 applic Al Hydrox/Mg Hydrox/Simethicone 30 ml/Diphenhydramine HCl 75 mg/Lidocaine 30 ml 0 ml PO Q2H PRN PRN Reason: Mouth/Throat Pain Last Admin: 10/27/16 09:50 Dose: 10 ml Diphenhydramine HCl (Benadryl) 25 mg IVP Q4H PRN PRN Reason: Allergy symptoms Last Admin: 10/27/16 21:54 Dose: 25 mg Home Med (Home Med) 1 unit PO Q12H PRN PRN Reason: Inflammation Last Admin: 10/18/16 11:03 Dose: 1 unit Multivitamins/Vitamin C 10 ml/Chromium/Copper/Manganese/Zinc 1 ml/ Amino Acids 2,011 mls @ 83.792 mls/hr IV .Q24H [facility] Last Admin: 10/28/16 19:05 Dose: 83.792 mls/hr Sodium Chloride (Sodium Chloride 0.9%) 1,000 mls @ 100 mls/hr IV .Q10H [facility] Last Admin: 10/28/16 21:49 Dose: 100 mls/hr Potassium Chloride (Potassium Chloride 20 Meq/100 Ml) 20 meq in 100 mls @ 50 mls/hr IVPB Q2H [facility] Stop: 10/29/16 11:29 Last Admin: 10/29/16 07:56 Dose: 50 mls/hr Magnesium Sulfate/Dextrose (Magnesium Sulfate 1 Gm/100 Ml D5w) 1 gm in 100 mls @ 100 mls/hr IVPB ONCE ONE Stop: 10/29/16 09:36 Meropenem 1g/NS 100mL IVPB (Meropenem 1g/Ns 100ml Ivpb) 1 gm in 100 mls @ 100 mls/hr IVPB Q8 [facility] PRN Reason: Protocol Stop: 11/05/16 14:01 Vancomycin HCl (Vancomycin 1gm) 250 mls @ 167 mls/hr IVPB Q12H [facility] PRN Reason: Protocol Metoprolol Tartrate (Lopressor) 25 mg PO BID [facility] Last Admin: 10/28/16 18:07 Dose: 25 mg Metoprolol Tartrate (Lopressor) 5 mg IVP Q6H PRN PRN Reason: Sustained HR > 130 Last Admin: 10/25/16 01:36 Dose: 5 mg Morphine Sulfate (Morphine) 4 mg IV Q3 PRN PRN Reason: Pain, severe (8-10) Last Admin: 10/29/16 05:55 Dose: 4 mg Multi-Ingredient Ointment (Hydrophor Oint) 0 gm TOP Q6H [facility] Last Admin: 10/29/16 07:36 Dose: 1 applic Octreotide Acetate (Sandostatin) 100 mcg SC Q8 [facility] Last Admin: 10/25/16 06:05 Dose: 100 mcg Ondansetron HCl (Zofran Inj) 4 mg IVP Q4H PRN PRN Reason: Nausea/Vomiting Last Admin: 10/28/16 20:18 Dose: 4 mg Pantoprazole Sodium (Protonix Inj) 40 mg IVP DAILY [facility] Last Admin: 10/28/16 09:49 Dose: 40 mg Petrolatum (Desitin Maximum Strength Topical 40% Oint) 1 gm TOP Q4H PRN PRN Reason: Rash Last Admin: 10/23/16 22:39 Dose: 1 applic Sucralfate (Carafate Oral Susp) 1 gm PO BID [facility] Last Admin: 10/28/16 18:10 Dose: 1 gm Throat Lozenges (Cepastat) 1 francis MT Q2H PRN PRN Reason: Sore Throat Last Admin: 10/22/16 22:01 Dose: 1 francis - Labs Labs: 10/29/16 06:20 10/29/16 06:20 PT 13.6 Seconds (9.9-11.8) H 10/26/16 06:24 INR 1.26 (0.93-1.08) H 10/26/16 06:24 APTT 33.1 Seconds (23.7-30.8) H 10/26/16 06:24 - Constitutional Appears: Non-toxic, No Acute Distress - Head Exam Head Exam: NORMAL INSPECTION - Neck Exam Neck Exam: absent: Meningismus - Respiratory Exam Respiratory Exam: Decreased Breath Sounds - Cardiovascular Exam Cardiovascular Exam: +S1, +S2 - GI/Abdominal Exam GI & Abdominal Exam: Soft. absent: Tenderness Assessment and Plan - Assessment and Plan (Free Text) Plan: Assessment New onset SIRS, R/O sepsis source to be determined Partial small bowel obstruction, persistent Acute stomatitis and mucositis, as well as esophageal ulcers R/O CMV Neutropenia probably from chemotherapy, resolved HTN 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 S/P colectomy in 2014 history of UTI GERD anxiety Plan continue Mycamine and Valganciclovir pending esophageal ulcer biopsy results - discussed with Dr. Null started Vancomycin and Merrem pending repeat blood cx Reviewed repeat CT scan of the abdomen and pelvis which shows the partial small bowel obstruction / stricture and she continues to be on parenteral nutrition Will continue to follow clinically Overall prognosis is poor
--- NOTE | 2016-10-29 20:15 | PN ---
DATE: 10/29/2016 SUBJECTIVE: The patient is overall feeling better. Abdominal pain has significantly improved. Want s to increase her diet. Even the painful swallowing had also significantly improved. PHYSICAL EXAMINATION: Abdomen is soft. There is mild diffuse tenderness present. LABORATORY DATA: Hemoglobin remains stable, 9.9, hematocrit 28.2, WBC is 11.3. Platelet count, yang von, has come down to 50,000. This patient had an EGD and a colonoscopy done. Had a flex sig done. EGD revealed ulcerative lesion extending up to 10 cm in the esophagus from 25 to 30 cm level. The endoscopic appearance was more s uggestive of CMV. Biopsies still pending. The patient has been started on valganciclovir. Appears to have some improvement. Flex sig revealed an obstructing lesion in the sigmoid area, which was ulcerated lesion in the sigmoid area just proxi mal to that and appears to be a source of the bleeding, obvious ulcerated area seen. Could not advan ce the scope beyond. The patient has been also followed by the surgical team. We discussed with Dr. Hendricks. We also dis cussed with surgical team regarding the timing of colostomy if needed as the patient is now being maxx ated for ganciclovir. It is reasonable to wait for the biopsy report. Thank you very much for allowing us to participate in the care of the patient. Tong Null MD cc: [id number] TT: 10/29/2016 20:15:00 Confirmation # [id number] Dictation # [id number] chastity
[2016-10-30] MEDS ORDERED: Morphine 4 mg/ml ISec IVP STA (00:49)
[2016-10-30] MEDS: Metoprolol 1 mg/ml Inj IVP PRN ×2 (01:02→18:56)
[2016-10-30 01:38] LABS: ALB/GLOB RATIO 0.8 (1.1-1.8); ALBUMIN 1.8 g/dL (3.0-4.8); ALT/SGPT 33 U/L (7-56); AST/SGOT 19 U/L (15-39); BLOOD UREA NITROGEN 49 mg/dL (7-21); CALCIUM 7.3 mg/dL (8.4-10.5); GFR AFRICAN-AMERICAN > 60; GFR NON-AFRICAN AMERICAN 56; MAGNESIUM 1.6 mg/dL (1.7-2.2)
[2016-10-30 02:09] LABS: HEMOGLOBIN 9.6 gm/dL (12.0-16.0); MEAN CORPUSCULAR HEMOGLOBIN 30.4 pg (25.0-35.0); MEAN CORPUSCULAR HGB CONC 34.5 g/dl (31.0-37.0); RBC 3.16 10^6/uL (3.5-6.1); RED CELL DISTRIBUTION WIDTH 18.2 % (11.5-14.5); WHITE BLOOD COUNT 13.1 10^3/ul (4.5-11.0)
[2016-10-30 02:45] LABS: NEUTROPHIL 80 % (50.0-70.0); PLATELET COUNT 41 10^3/uL (120.0-450.0)
[2016-10-30 02:47] LABS: BAND 13 % (0-2); BASOPHIL 1 % (0.0-1.0); LYMPHOCYTE 3 % (22.0-35.0); MONOCYTE 3 % (1.0-6.0)
[2016-10-30 02:48] LABS: ANISOCYTOSIS 1+; PLATELET ESTIMATE LOW (NORMAL); TOXIC GRANULATION 1+
[2016-10-30] MEDS: Meropenem 1g/NS 100mL IVPB 1 GM/100 ML PIGGYBACK IVPB SCH ×3 (05:20→21:17)
[2016-10-30 06:04] LABS: ALB/GLOB RATIO 0.7 (1.1-1.8); ALBUMIN 1.7 g/dL (3.0-4.8); ALT/SGPT 30 U/L (7-56); AST/SGOT 19 U/L (15-39); BLOOD UREA NITROGEN 52 mg/dL (7-21); CALCIUM 7.3 mg/dL (8.4-10.5); GFR AFRICAN-AMERICAN > 60; GFR NON-AFRICAN AMERICAN 56; MAGNESIUM 1.6 mg/dL (1.7-2.2)
[2016-10-30 06:40] LABS: HEMOGLOBIN 9.2 gm/dL (12.0-16.0); MEAN CELL VOLUME 89.3 fL (80.0-105.0); MEAN CORPUSCULAR HEMOGLOBIN 30.8 pg (25.0-35.0); MEAN CORPUSCULAR HGB CONC 34.5 g/dl (31.0-37.0); PLATELET COUNT 42 10^3/uL (120.0-450.0); RBC 2.99 10^6/uL (3.5-6.1); RED CELL DISTRIBUTION WIDTH 18.6 % (11.5-14.5); WHITE BLOOD COUNT 16.2 10^3/ul (4.5-11.0)
[2016-10-30] MEDS: Morphine 4 mg/ml ISec IV PRN ×6 (08:10→23:59)
--- NOTE | 2016-10-30 09:01 | CP.PCM.PN ---
<Carlos Feng - Last Filed: 10/30/16 08:28> Subjective - Date & Time of Evaluation Date of Evaluation: 10/30/16 Time of Evaluation: 06:30 - Subjective Subjective: Carlos Feng D.O. PGY-1, General Surgery Progress Note: Dr. Kaykay Devlin. 61 year old female with stage IV colon CA s/p colectomy with reversal, s/p FOLFOX-6 chemo x2 plus XRT to sacral metastasis, now with lower GI bleeding for which we were consulted. Patient was seen and examined at bedside with surgical team. Patient is relatively unchanged today, appears tired but arousable and able to answer questions. Patient states that she feels about the same overall but no longer feels feverish. Patient states that they have been doing dressing changes on her sacrum everyday. Denies any fevers/chills/N/V/D/C or otherwise. Patient had a regular dark-brown greenish bowel movement this AM. When asked about surgical intervention, patient relates that her and her family are still weighing the pros and cons at this time. Objective - Vital Signs/Intake and Output Vital Signs (last 24 hours): Temp Pulse Resp BP Pulse Ox 97.9 F 129 H 18 138/81 100 10/30/16 07:43 10/30/16 07:43 10/30/16 07:43 10/30/16 07:43 10/30/16 07:43 Intake and Output: 10/30/16 10/30/16 06:59 18:59 Intake Total 360 Output Total 600 Balance -240 - Medications Medications: Current Medications Acetaminophen (Tylenol 650 Mg Supp) 650 mg RC Q4H PRN PRN Reason: Fever >100.4 F Last Admin: 10/29/16 07:02 Dose: 650 mg Acetaminophen (Tylenol 650mg/20.3ml Solution Ud) 650 mg PO Q4 PRN PRN Reason: Fever >100.4 F Albumin Human (Albumin Human 25% (25 Gm/100 Ml)) 25 gm IV DAILY RODRÍGUEZ Stop: 10/30/16 10:01 Last Admin: 10/29/16 11:24 Dose: 25 gm Benzocaine (Orajel Pm Maximum Strength) 0 gm MT QID PRN PRN Reason: Pain, moderate (4-7) Last Admin: 10/18/16 05:27 Dose: 1 dose Bismuth Subsalicylate (Pepto-Bismol) 262 mg PO BID [facility] Last Admin: 10/29/16 17:19 Dose: 262 mg Collagenase (Santyl) 1 gm TOP BID [facility] Last Admin: 10/29/16 17:19 Dose: 1 applic Al Hydrox/Mg Hydrox/Simethicone 30 ml/Diphenhydramine HCl 75 mg/Lidocaine 30 ml 0 ml PO Q2H PRN PRN Reason: Mouth/Throat Pain Last Admin: 10/27/16 09:50 Dose: 10 ml Diphenhydramine HCl (Benadryl) 25 mg IVP Q4H PRN PRN Reason: Allergy symptoms Last Admin: 10/27/16 21:54 Dose: 25 mg Ergocalciferol (Drisdol 50,000 Intl Units Cap) 1 cap PO Q7D [facility] Last Admin: 10/29/16 13:36 Dose: 1 cap Home Med (Home Med) 1 unit PO Q12H PRN PRN Reason: Inflammation Last Admin: 10/18/16 11:03 Dose: 1 unit Meropenem 1g/NS 100mL IVPB (Meropenem 1g/Ns 100ml Ivpb) 1 gm in 100 mls @ 100 mls/hr IVPB Q8 [facility] PRN Reason: Protocol Stop: 11/05/16 14:01 Last Admin: 10/30/16 05:20 Dose: 100 mls/hr Vancomycin HCl (Vancomycin 1gm) 1 gm in 250 mls @ 167 mls/hr IVPB Q12H [facility] PRN Reason: Protocol Last Admin: 10/29/16 20:46 Dose: 167 mls/hr Fat Emulsion Intravenous (Intralipid 20%) 250 mls @ 21 mls/hr IV DAILY@1800 [facility] Stop: 11/01/16 17:59 Last Admin: 10/29/16 18:27 Dose: 21 mls/hr Multivitamins/Vitamin C 10 ml/Chromium/Copper/Manganese/Zinc 1 ml/ Amino Acids 2,011 mls @ 83.792 mls/hr IV .Q24H [facility] Stop: 11/01/16 17:59 Last Admin: 10/29/16 18:28 Dose: 83.792 mls/hr Metoprolol Tartrate (Lopressor) 25 mg PO BID [facility] Last Admin: 10/29/16 17:19 Dose: 25 mg Metoprolol Tartrate (Lopressor) 5 mg IVP Q6H PRN PRN Reason: Sustained HR > 130 Last Admin: 10/30/16 01:02 Dose: 5 mg Morphine Sulfate (Morphine) 4 mg IV Q3 PRN PRN Reason: Pain, severe (8-10) Last Admin: 10/30/16 08:10 Dose: 4 mg Multi-Ingredient Ointment (Hydrophor Oint) 0 gm TOP Q6H [facility] Last Admin: 10/29/16 21:28 Dose: 1 applic Octreotide Acetate (Sandostatin) 100 mcg SC Q8 [facility] Last Admin: 10/25/16 06:05 Dose: 100 mcg Ondansetron HCl (Zofran Inj) 4 mg IVP Q4H PRN PRN Reason: Nausea/Vomiting Last Admin: 10/29/16 20:46 Dose: 4 mg Pantoprazole Sodium (Protonix Inj) 40 mg IVP DAILY [facility] Last Admin: 10/29/16 09:46 Dose: 40 mg Petrolatum (Desitin Maximum Strength Topical 40% Oint) 1 gm TOP Q4H PRN PRN Reason: Rash Last Admin: 10/23/16 22:39 Dose: 1 applic Sucralfate (Carafate Oral Susp) 1 gm PO BID [facility] Last Admin: 10/29/16 18:27 Dose: 1 gm Throat Lozenges (Cepastat) 1 francis MT Q2H PRN PRN Reason: Sore Throat Last Admin: 10/22/16 22:01 Dose: 1 francis - Labs Labs: 10/30/16 05:30 10/30/16 05:30 PT 13.6 Seconds (9.9-11.8) H 10/26/16 06:24 INR 1.26 (0.93-1.08) H 10/26/16 06:24 APTT 33.1 Seconds (23.7-30.8) H 10/26/16 06:24 - Constitutional Appears: No Acute Distress, Chronically Ill, tired arousable - Head Exam Head Exam: ATRAUMATIC, NORMOCEPHALIC - Eye Exam Eye Exam: EOMI, Normal appearance - ENT Exam ENT Exam: Mucous Membranes Moist - Neck Exam Additional comments: soft, supple - Respiratory Exam Respiratory Exam: absent: Accessory Muscle Use, Respiratory Distress - Cardiovascular Exam Cardiovascular Exam: Tachycardic, +S1, +S2 - GI/Abdominal Exam GI & Abdominal Exam: Soft, Normal Bowel Sounds. absent: Distended, Guarding, Tenderness - Extremities Exam Extremities Exam: Pedal Edema (mild) - Skin Additional comments: warm, dry, sacral wound exam refused by patient Assessment and Plan - Assessment and Plan (Free Text) Assessment: 61 year old female with stage IV colon CA s/p colectomy with reversal, s/p FOLFOX-6 chemo x2 plus XRT to sacral metastasis, now with lower GI bleeding for which we were consulted. Plan: Patient on EGD with GI had findings suggestive of CMV, biopsies pending, as well as sigmoidoscopy which showed obstructive lesion with ulcerations which is the likely source of her blood loss H&H continues to downtrend at this time, after again speaking with patient she wishes to continue to discuss the matter of surgical intervention with her family and they will let us know when they have reached a decision, so we will continue to follow closely Will discuss with attending physician. Thank you for the pleasure of participating in the care of this patient. <Yoan Mccracken - Last Filed: 12/02/16 23:45> Objective - Vital Signs/Intake and Output Vital Signs (last 24 hours): Temp Pulse Resp BP Pulse Ox 97.8 F 101 H 18 170/89 H 100 12/02/16 16:00 12/02/16 16:00 12/02/16 16:00 12/02/16 16:00 12/02/16 16:00 Intake and Output: 12/02/16 12/03/16 18:59 06:59 Intake Total 120 Output Total 450 600 Balance -450 -480 - Medications Medications: Current Medications Acetaminophen (Tylenol 650 Mg Supp) 650 mg RC Q4H PRN PRN Reason: Fever >100.4 F Last Admin: 11/01/16 21:18 Dose: 650 mg Al Hydrox/Mg Hydrox/Simethicone 30 ml/Diphenhydramine HCl 75 mg/Lidocaine 30 ml 0 ml PO QID [facility] Last Admin: 12/02/16 21:01 Dose: Not Given Diphenhydramine HCl (Benadryl) 50 mg IVP HS PRN PRN Reason: Insomnia Last Admin: 11/27/16 01:00 Dose: 50 mg Ergocalciferol (Drisdol 50,000 Intl Units Cap) 1 cap PO Q7D [facility] Last Admin: 11/19/16 18:04 Dose: Not Given Ferrous Sulfate (Feosol) 324 mg PO TID [facility] Last Admin: 12/02/16 18:16 Dose: Not Given Fluconazole (Diflucan) 200 mg PO DAILY [facility] PRN Reason: Protocol Stop: 12/12/16 10:01 Last Admin: 12/02/16 09:44 Dose: Not Given Home Med (Home Med) 1 unit PO Q12H PRN PRN Reason: Inflammation Last Admin: 10/18/16 11:03 Dose: 1 unit Hydralazine HCl (Apresoline) 10 mg IVP Q4H PRN PRN Reason: Systolic Blood Pressure Hydromorphone HCl (Dilaudid) 1 mg IVP Q1H PRN PRN Reason: Pain, moderate (4-7) Last Admin: 12/02/16 21:06 Dose: 1 mg Levetiracetam (Keppra 500mg Ivpb) 500 mg in 100 mls @ 400 mls/hr IV Q12 [facility] Last Admin: 12/02/16 21:06 Dose: 400 mls/hr Potassium Chloride/Dextrose (Potassium Chl 40 Meq In D5w) 1,000 mls @ 60 mls/ hr IV .[id number] [facility] Last Admin: 12/02/16 18:17 Dose: Not Given Magnesium Hydroxide (Milk Of Magnesia) 30 ml PO DAILY PRN PRN Reason: skin irritation Last Admin: 12/02/16 14:09 Dose: 30 ml Magnesium Oxide (Mag-Ox) 400 mg PO BID [facility] Last Admin: 12/02/16 18:16 Dose: Not Given Multi-Ingredient Ointment (Hydrophor Oint) 0 gm TOP Q6H PRN PRN Reason: Dry lip Multivitamins (Thera Tab) 1 tab PO 0800 [facility] Last Admin: 12/02/16 08:10 Dose: Not Given Propranolol HCl (Inderal La) 120 mg PO DAILY [facility] Last Admin: 12/02/16 09:44 Dose: Not Given Sucralfate (Carafate Oral Susp) 1 gm PO BID [facility] Last Admin: 12/02/16 18:16 Dose: Not Given - Labs Labs: 12/02/16 06:00 07/23/17 06:00 PT 12.9 Seconds (9.9-11.8) H 12/02/16 06:00 INR 1.19 (0.93-1.08) H 12/02/16 06:00 APTT 32.9 Seconds (23.7-30.8) H 12/02/16 06:00 Assessment and Plan - Assessment and Plan (Free Text) Plan: Patient was seen and examined by me. I agree with assessment and plan as per resident's note.
[2016-10-30] MEDS: Petrolatum-Mineral Oil Oint (100gm) TOP SCH ×2 (09:02→15:05)
[2016-10-30] MEDS: Collagenase 250 Units/gm Ointment(30 gm) TOP SCH ×2 (09:03→18:51)
[2016-10-30] MEDS: Sucralfate 1 gm/10 ml Oral Susp UD PO SCH ×2 (09:05→18:49)
[2016-10-30] MEDS: Vancomycin 1gm in NS 250ml 1 GM/250 ML BAG IVPB SCH ×2 (09:05→23:13)
[2016-10-30] MEDS: Bismuth Subsalicylate 262 mg/15 ml Sus (240 ml) PO SCH ×2 (09:11→18:51)
[2016-10-30] MEDS: Albumin Human 25% (25 gm/100 ml) IV SCH (10:32)
[2016-10-30] MEDS: Menthol/Phenol (Cepastat) Lozenge MT PRN (11:17)
[2016-10-30] MEDS: Aluminum Hydroxide/Magnesium 30 ML, DiphenhydrAMINE 75 MG, Lidocaine 2% Viscous 30 ML PO PRN (11:17)
[2016-10-30] MEDS: Micafungin 100 MG in Sodium Chloride 0.9% 100 ML IV SCH (12:03)
--- NOTE | 2016-10-30 12:46 | PN ---
DATE: 10/29/2016 The patient is currently in room 364, bed 2. SUBJECTIVE: The patient is seen in bed. She is complaining of no nausea, vomiting. Had 1 episode o f liquid brown stools. No bleeding today. Last bleeding was on Saturday, 2 days ago. The patient h as been running low magnesium and low potassium for which she has been getting K riders and magnesium riders. Her mild stomatitis appears better since she was put on ganciclovir. Complains of mild abd ominal discomfort requiring narcotic medication. MEDICATIONS: Reviewed. She is currently on albumin, Benadryl, Carafate, Cepastat, Desitin, triamcin olone dental paste, Lopressor, meropenem, morphine, hyperalimentation, Orajel, Pepto-Bismol, Protonix , Sandostatin has been on hold, ____, normal saline should be discontinued now, Tylenol, IV vancomyci n and Zofran. The patient is also on oral medication which is ganciclovir. OBJECTIVE: VITAL SIGNS: Stable. T-max early this morning was 101, pulse is 139, blood pressure is 148/72, resp iration rate is 21, O2 sat is 94%. HEENT: Head is normocephalic, atraumatic. Conjunctivae are pale. Sclerae are anicteric. ____ Neck is supple. There is no jugular venous distention. Examination of the oropharynx reveals no orophar yngeal lesions. Tongue appears to be moist. The soreness and the odynophagia that she had appears t o be improving. LUNGS: Relatively clear to percussion and auscultation. HEART: Reveals S1 and S2 to be normal. No gallop or murmur is heard. ABDOMEN: Soft, nontender. The patient has mild tenderness in the right lower quadrant and left lowe r quadrant, but no rebound, rigidity or guarding is noted. EXTREMITIES: Show pitting edema of the lower extremities. She also has edema of the right upper ext remity which appears to be improving with the albumin. The patient is having very minimal pain over the right knee where she was in a lot of discomfort over the weekend. She is able to move all her lo wer extremities without any issues. LABORATORY DATA: Reveals a white count of 11.3, hemoglobin is down to 9.9, platelet count is 50,000, manual is above 70. Sodium is 143, K is 3.8, chloride is 118 with CO2 of 21. BUN is down to 45 wit h a creatinine of 0.8. Glucose is 117, calcium is 6.9 with an albumin of 1.8. Corrected calcium is normal. Magnesium is down to 1.4; she is getting IV magnesium. Bilirubin is 2. Liver enzymes are o therwise normal. Her vitamin D is on the lower side. Urine cultures are positive for E. coli; the p atient was treated. Stool diff has been negative. Blood cultures are negative at 4 days. 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 Renal failure which is gradually improving, prerenal azotemia. Creatinine is now down to normal. The patient has mild d iarrhea. Clostridium difficile has been negative. The patient is awaiting surgical input. I spoke to Dr. Null who feels that in view of the CMV enteritis it might be prudent to wait a few more da ys. Will continue IV antibiotics and p.o. meds till things are resolved. The patient may need a tra nsfusion soon if patient's blood count continues to drop. Routine post exam instructions have been karen costa to the patient. I spoke at length with the patient's sister and patient's mother in [facility]. Will need to monitor the platelet count as they are shifting down; may be related to her medicati ons, specifically the ganciclovir. Will have to monitor that very carefully. Kedar Hendricks MD cc: [id number] TT: 10/30/2016 09:07:51 Confirmation # [id number] Dictation # [id number] mark
--- NOTE | 2016-10-30 12:51 | CP.PCM.PN ---
Subjective - Date & Time of Evaluation Date of Evaluation: 10/30/16 Time of Evaluation: 12:43 - Subjective Subjective: Patient has a port which is being used for TPN. She also has an additional iv line for other meds.This is infiltrated and needs to be replaced. Objective - Vital Signs/Intake and Output Vital Signs (last 24 hours): Temp Pulse Resp BP Pulse Ox 97.9 F 129 H 18 138/81 100 10/30/16 07:43 10/30/16 09:05 10/30/16 07:43 10/30/16 09:05 10/30/16 07:43 Intake and Output: 10/30/16 10/30/16 06:59 18:59 Intake Total 360 Output Total 600 Balance -240 - Medications Medications: Current Medications Acetaminophen (Tylenol 650 Mg Supp) 650 mg RC Q4H PRN PRN Reason: Fever >100.4 F Last Admin: 10/29/16 07:02 Dose: 650 mg Acetaminophen (Tylenol 650mg/20.3ml Solution Ud) 650 mg PO Q4 PRN PRN Reason: Fever >100.4 F Benzocaine (Orajel Pm Maximum Strength) 0 gm MT QID PRN PRN Reason: Pain, moderate (4-7) Last Admin: 10/18/16 05:27 Dose: 1 dose Bismuth Subsalicylate (Pepto-Bismol) 262 mg PO BID [facility] Last Admin: 10/30/16 09:11 Dose: 262 mg Collagenase (Santyl) 1 gm TOP BID [facility] Last Admin: 10/30/16 09:03 Dose: 1 applic Al Hydrox/Mg Hydrox/Simethicone 30 ml/Diphenhydramine HCl 75 mg/Lidocaine 30 ml 0 ml PO Q2H PRN PRN Reason: Mouth/Throat Pain Last Admin: 10/30/16 11:17 Dose: 30 ml Diphenhydramine HCl (Benadryl) 25 mg IVP Q4H PRN PRN Reason: Allergy symptoms Last Admin: 10/27/16 21:54 Dose: 25 mg Ergocalciferol (Drisdol 50,000 Intl Units Cap) 1 cap PO Q7D [facility] Last Admin: 10/29/16 13:36 Dose: 1 cap Home Med (Home Med) 1 unit PO Q12H PRN PRN Reason: Inflammation Last Admin: 10/18/16 11:03 Dose: 1 unit Meropenem 1g/NS 100mL IVPB (Meropenem 1g/Ns 100ml Ivpb) 1 gm in 100 mls @ 100 mls/hr IVPB Q8 [facility] PRN Reason: Protocol Stop: 11/05/16 14:01 Last Admin: 10/30/16 05:20 Dose: 100 mls/hr Vancomycin HCl (Vancomycin 1gm) 1 gm in 250 mls @ 167 mls/hr IVPB Q12H [facility] PRN Reason: Protocol Last Admin: 10/30/16 09:05 Dose: 167 mls/hr Fat Emulsion Intravenous (Intralipid 20%) 250 mls @ 21 mls/hr IV DAILY@1800 [facility] Stop: 11/01/16 17:59 Last Admin: 10/29/16 18:27 Dose: 21 mls/hr Multivitamins/Vitamin C 10 ml/Chromium/Copper/Manganese/Zinc 1 ml/ Amino Acids 2,011 mls @ 83.792 mls/hr IV .Q24H [facility] Stop: 11/01/16 17:59 Last Admin: 10/29/16 18:28 Dose: 83.792 mls/hr Micafungin Sodium 100 mg/ (Sodium Chloride) 100 mls @ 100 mls/hr IV DAILY [facility] PRN Reason: Protocol Metoprolol Tartrate (Lopressor) 25 mg PO BID [facility] Last Admin: 10/30/16 09:05 Dose: 25 mg Metoprolol Tartrate (Lopressor) 5 mg IVP Q6H PRN PRN Reason: Sustained HR > 130 Last Admin: 10/30/16 01:02 Dose: 5 mg Morphine Sulfate (Morphine) 4 mg IV Q3 PRN PRN Reason: Pain, severe (8-10) Last Admin: 10/30/16 11:15 Dose: 4 mg Multi-Ingredient Ointment (Hydrophor Oint) 0 gm TOP Q6H [facility] Last Admin: 10/30/16 09:02 Dose: 1 applic Octreotide Acetate (Sandostatin) 100 mcg SC Q8 [facility] Last Admin: 10/25/16 06:05 Dose: 100 mcg Ondansetron HCl (Zofran Inj) 4 mg IVP Q4H PRN PRN Reason: Nausea/Vomiting Last Admin: 10/29/16 20:46 Dose: 4 mg Pantoprazole Sodium (Protonix Inj) 40 mg IVP DAILY [facility] Last Admin: 10/30/16 09:05 Dose: 40 mg Petrolatum (Desitin Maximum Strength Topical 40% Oint) 1 gm TOP Q4H PRN PRN Reason: Rash Last Admin: 10/23/16 22:39 Dose: 1 applic Sucralfate (Carafate Oral Susp) 1 gm PO BID [facility] Last Admin: 10/30/16 09:05 Dose: 1 gm Throat Lozenges (Cepastat) 1 francis MT Q2H PRN PRN Reason: Sore Throat Last Admin: 10/30/16 11:17 Dose: 1 francis Valganciclovir (Valcyte) 900 mg PO DAILY [facility] Last Admin: 10/30/16 10:32 Dose: 900 mg - Labs Labs: 10/30/16 05:30 10/30/16 05:30 PT 13.6 Seconds (9.9-11.8) H 10/26/16 06:24 INR 1.26 (0.93-1.08) H 10/26/16 06:24 APTT 33.1 Seconds (23.7-30.8) H 10/26/16 06:24 - Constitutional Appears: No Acute Distress Assessment and Plan - Assessment and Plan (Free Text) Assessment: Poor venous access Plan: Hep lock inserted in the R hand. # 24 angiocath used.
--- NOTE | 2016-10-30 15:18 | PN ---
DATE: 10/30/2016 SUBJECTIVE: The patient is currently seen lying in bed. She appears to be stable. She continues on hyperalimentation. Adjustments were made in her hyperalimentation to correct her electrolyte issues . MEDICATIONS: Medication list reviewed. Medications are unchanged from previous day with the excepti on of starting Valcyte, vancomycin, and micafungin. The patient remains on meropenem. OBJECTIVE: INTAKE AND OUTPUT: Intake not accurately charted. Output 2975. VITAL SIGNS: Blood pressure 138/81, pulse 129, temperature 97.9, respiratory rate is 18. HEENT: Normocephalic, atraumatic. Conjunctivae are pale. Sclerae are nonicteric. NECK: Supple, no neck vein distention. CHEST: Clear to auscultation and percussion. CARDIOVASCULAR: S1, S2 were normal. No murmurs, rubs, or gallops. ABDOMEN: Soft. Bowel sounds normal. Mild tenderness on palpation diffusely. No rebound, no guardi ng. EXTREMITIES: Show trace to 1+ pitting ankle edema. LABORATORY DATA AND IMAGING: CBC: White blood cell count today 16.2, hemoglobin 9.2, platelet count is 42,000. Chemistries show normal sodium 141, potassium is finally normal at 3.7, chloride 117 wit h a CO2 of 19. BUN 52 stable, creatinine 1.0 stable. Glucose is 131. Calcium is improved at 7.3, c orrects to normal with an albumin of 1.7. Phosphorus level was 2.6 with a magnesium level of 1.6. B ilirubin was 1.8. Liver enzymes were normal. Microbiology: Blood cultures are now positive for yea st. Urine cultures were positive for yeast. ASSESSMENT: Acute renal failure, prerenal azotemia, improved with hydration. The patient will likely remain prer enal on hyperalimentation. Creatinine is down to normal. The patient does continue to have mild maggie rrhea. Will need to try and keep her intake ahead of her output. Status post mild hypernatremia. Sodium level 141 today. Stage IV metastatic colon cancer with bone metastases. The patient being followed by oncology. History of diarrhea. The patient has received Sandostatin with mild improvement. Stools are negativ e for Clostridium difficile. The patient being seen by gastroenterology. Status post Escherichia coli urinary tract infection. Fungemia noted. The patient has been started on antifungal medication. Status post hypokalemia. With increase potassium and her hyperalimentation, this has improved. History of anemia and thrombocytopenia - all secondary to metastatic colon cancer. PLAN: 1. Discussed with nursing staff. The patient's wishes are to continue receiving aggressive therapy. 2. Try and keep her intake ahead of her output. 3. Continue appropriate antibiotics, antifungal and antiviral medication. Kyle Brooks MD cc: [id number] TT: 10/30/2016 15:17:39 Confirmation # [id number] Dictation # [id number] mn
--- NOTE | 2016-10-30 16:56 | PN ---
DATE: 10/30/2016 Seen and examined at the bedside earlier today. The patient reported that she did have small diarrhe a. No reports of any blood. Abdominal pain is better, but has some abdominal discomfort. No nausea or vomiting. Tolerating a little bit more intake. No acute overnight events reported. T-max last night was 100.6. No fevers this morning. VITAL SIGNS: Temperature is 97.9, blood pressure 138/81, pulse rate is 129, respirations 18, 100 O2 saturation. LABORATORY DATA: WBC 16.2, her hemoglobin is 9.2, hematocrit is 26.7, platelets are 42 and the manua l count is 54. Sodium is 141. Her K has improved, it is 3.7. BUN 52, creatinine is 1.0. Magnesium is 1.6, total bilirubin is 1.8, AST 19, ALT 30, alk phos is 93. PHYSICAL EXAMINATION: HEENT: Sclera is anicteric. NECK: Supple. CARDIAC: S1, S2. LUNGS: With decreased breath sounds at the bases, but good air entry, no rales or wheeze. ABDOMEN: With bowel sounds, soft with tenderness but it is minimal tenderness, definitely much impro yoshi. EXTREMITIES: Generalized edema. NEUROLOGIC: Awake, alert, and oriented. ASSESSMENT: Colon cancer status post anterior resection and chemoradiation. The patient had GI blee d last week. She went for endoscopy and colonoscopy. She was found to have a large ulceration in th e esophagus from 25-30 cm. Also underwent a flex sigmoid endoscopy and found to have ulcerations at the anastomotic area. The patient had biopsies in the esophagus to rule out cytomegalovirus. She wa s started on ____. The patient did much have improvement as far as the abdominal discomfort. For d iarrhea, that has improved as well. Previous to this, she was given some p.r.n. doses of codeine as well as Sandostatin. She originally came with sepsis, urosepsis, neutropenia, found to have a partia l small-bowel obstruction, also thrombocytopenia, status post multiple blood transfusions. PLAN: We are waiting for biopsies obtained to rule out CMV. Right now, she is on clear liquid diet, is on PPN, on meropenem IV antibiotics, micafungin, PPI and Carafate and ____ vancomycin. We will c gne to follow closely as per renal, hematology/oncology, and surgery. The patient was seen and case discussed with Dr. Null. Yoana IQBAL cc: [id number] TT: 10/30/2016 16:55:33 Confirmation # [id number] Dictation # [id number]
--- NOTE | 2016-10-30 17:53 | CP.PCM.PN ---
Subjective - Date & Time of Evaluation Date of Evaluation: 10/30/16 Time of Evaluation: 10:05 - Subjective Subjective: Patient continues to be weak and tired, still with low grade fevers last night. Objective - Vital Signs/Intake and Output Vital Signs (last 24 hours): Temp Pulse Resp BP Pulse Ox 97.9 F 129 H 18 138/81 100 10/30/16 07:43 10/30/16 07:43 10/30/16 07:43 10/30/16 07:43 10/30/16 07:43 Intake and Output: 10/30/16 10/30/16 06:59 18:59 Intake Total 360 Output Total 600 Balance -240 - Medications Medications: Current Medications Acetaminophen (Tylenol 650 Mg Supp) 650 mg RC Q4H PRN PRN Reason: Fever >100.4 F Last Admin: 10/29/16 07:02 Dose: 650 mg Acetaminophen (Tylenol 650mg/20.3ml Solution Ud) 650 mg PO Q4 PRN PRN Reason: Fever >100.4 F Albumin Human (Albumin Human 25% (25 Gm/100 Ml)) 25 gm IV DAILY [facility] Stop: 10/30/16 10:01 Last Admin: 10/29/16 11:24 Dose: 25 gm Benzocaine (Orajel Pm Maximum Strength) 0 gm MT QID PRN PRN Reason: Pain, moderate (4-7) Last Admin: 10/18/16 05:27 Dose: 1 dose Bismuth Subsalicylate (Pepto-Bismol) 262 mg PO BID [facility] Last Admin: 10/29/16 17:19 Dose: 262 mg Collagenase (Santyl) 1 gm TOP BID [facility] Last Admin: 10/29/16 17:19 Dose: 1 applic Al Hydrox/Mg Hydrox/Simethicone 30 ml/Diphenhydramine HCl 75 mg/Lidocaine 30 ml 0 ml PO Q2H PRN PRN Reason: Mouth/Throat Pain Last Admin: 10/27/16 09:50 Dose: 10 ml Diphenhydramine HCl (Benadryl) 25 mg IVP Q4H PRN PRN Reason: Allergy symptoms Last Admin: 10/27/16 21:54 Dose: 25 mg Ergocalciferol (Drisdol 50,000 Intl Units Cap) 1 cap PO Q7D [facility] Last Admin: 10/29/16 13:36 Dose: 1 cap Home Med (Home Med) 1 unit PO Q12H PRN PRN Reason: Inflammation Last Admin: 10/18/16 11:03 Dose: 1 unit Meropenem 1g/NS 100mL IVPB (Meropenem 1g/Ns 100ml Ivpb) 1 gm in 100 mls @ 100 mls/hr IVPB Q8 RODRÍGUEZ PRN Reason: Protocol Stop: 11/05/16 14:01 Last Admin: 10/30/16 05:20 Dose: 100 mls/hr Vancomycin HCl (Vancomycin 1gm) 1 gm in 250 mls @ 167 mls/hr IVPB Q12H RODRÍGUEZ PRN Reason: Protocol Last Admin: 10/29/16 20:46 Dose: 167 mls/hr Fat Emulsion Intravenous (Intralipid 20%) 250 mls @ 21 mls/hr IV DAILY@1800 [facility] Stop: 11/01/16 17:59 Last Admin: 10/29/16 18:27 Dose: 21 mls/hr Multivitamins/Vitamin C 10 ml/Chromium/Copper/Manganese/Zinc 1 ml/ Amino Acids 2,011 mls @ 83.792 mls/hr IV .Q24H [facility] Stop: 11/01/16 17:59 Last Admin: 10/29/16 18:28 Dose: 83.792 mls/hr Micafungin Sodium 100 mg/ (Sodium Chloride) 100 mls @ 100 mls/hr IV DAILY [facility] PRN Reason: Protocol Stop: 10/30/16 10:59 Metoprolol Tartrate (Lopressor) 25 mg PO BID [facility] Last Admin: 10/29/16 17:19 Dose: 25 mg Metoprolol Tartrate (Lopressor) 5 mg IVP Q6H PRN PRN Reason: Sustained HR > 130 Last Admin: 10/30/16 01:02 Dose: 5 mg Morphine Sulfate (Morphine) 4 mg IV Q3 PRN PRN Reason: Pain, severe (8-10) Last Admin: 10/30/16 08:10 Dose: 4 mg Multi-Ingredient Ointment (Hydrophor Oint) 0 gm TOP Q6H [facility] Last Admin: 10/29/16 21:28 Dose: 1 applic Octreotide Acetate (Sandostatin) 100 mcg SC Q8 [facility] Last Admin: 10/25/16 06:05 Dose: 100 mcg Ondansetron HCl (Zofran Inj) 4 mg IVP Q4H PRN PRN Reason: Nausea/Vomiting Last Admin: 10/29/16 20:46 Dose: 4 mg Pantoprazole Sodium (Protonix Inj) 40 mg IVP DAILY [facility] Last Admin: 10/29/16 09:46 Dose: 40 mg Petrolatum (Desitin Maximum Strength Topical 40% Oint) 1 gm TOP Q4H PRN PRN Reason: Rash Last Admin: 10/23/16 22:39 Dose: 1 applic Sucralfate (Carafate Oral Susp) 1 gm PO BID [facility] Last Admin: 10/29/16 18:27 Dose: 1 gm Throat Lozenges (Cepastat) 1 francis MT Q2H PRN PRN Reason: Sore Throat Last Admin: 10/22/16 22:01 Dose: 1 francis Valganciclovir (Valcyte) 900 mg PO DAILY [facility] - Labs Labs: 10/30/16 05:30 10/30/16 05:30 PT 13.6 Seconds (9.9-11.8) H 10/26/16 06:24 INR 1.26 (0.93-1.08) H 10/26/16 06:24 APTT 33.1 Seconds (23.7-30.8) H 10/26/16 06:24 - Constitutional Appears: Chronically Ill - Head Exam Head Exam: NORMAL INSPECTION - Neck Exam Neck Exam: absent: Lymphadenopathy, Meningismus - Respiratory Exam Respiratory Exam: Decreased Breath Sounds Additional comments: anterior chest wall port site intact - Cardiovascular Exam Cardiovascular Exam: +S1, +S2 - GI/Abdominal Exam GI & Abdominal Exam: Soft. absent: Tenderness Assessment and Plan - Assessment and Plan (Free Text) Plan: Assessment New onset SIRS, R/O sepsis source to be determined Partial small bowel obstruction, persistent Acute stomatitis and mucositis, as well as esophageal ulcers R/O CMV Neutropenia probably from chemotherapy, resolved HTN 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 S/P colectomy in 2014 history of UTI GERD anxiety Plan continue Mycamine and Valganciclovir, Vancomycin and Merrem pending esophageal ulcer biopsy results and final blood cx results Reviewed repeat CT scan of the abdomen and pelvis which shows the partial small bowel obstruction / stricture and she continues to be on parenteral nutrition Will continue to follow clinically Overall prognosis is poor
[2016-10-30] MEDS: Fat Emulsion 20% IV 250 ML IV SCH (18:49)
[2016-10-30] MEDS: [UNRECOGNIZED DRUG - OTHER] IV SCH (18:50)
[2016-10-30] MEDS: AMINO IV SCH (18:50)
[2016-10-30] MEDS: DEXT IV SCH (18:50)
[2016-10-30] MEDS: MULTIVITAMIN IV SCH (18:50)
[2016-10-30] MEDS: TRACE ELEMENTS IV SCH (18:50)
--- NOTE | 2016-10-30 21:20 | PN ---
DATE: 10/30/2016 ADDENDUM This is an addendum to the GI progress report dictated by Yoana Osei APN. This patient was seen and evaluated earlier today. Discussed with the family and also with Dr. Gideon chong, who was at the bedside. Her platelet count now has come down to 42,000. WBC 16.2, hemoglobin 9. 2. The patient still has small episodes of diarrhea. No significant bleeding. Abdomen softly diste nded, tender. There is no rebound or guarding. This patient had recent endoscopy that revealed esop hageal ulceration. Clinically, rule out CMV enteritis. Biopsy of the esophageal ulcer lesion is sti ll pending. Would recommend at this point is follow up with the pathology report. Surgery is on d until pending the biopsy report. The patient is presently on valganciclovir p.o. We will continue to closely follow up her care. The patient may need a colostomy. She is agreeable. The patient has a colonic stricture, unable to pass the scope further beyond. The flexible sigmoid oscopy revealed ulcerations. Tong Null MD cc: [id number] TT: 10/30/2016 21:19:32 Confirmation # [id number] Dictation # [id number] mark
[2016-10-31] MEDS: Metoprolol 1 mg/ml Inj IVP PRN (00:12)
[2016-10-31] MEDS: Petrolatum-Mineral Oil Oint (100gm) TOP SCH ×4 (03:00→21:59)
[2016-10-31] MEDS: Morphine 4 mg/ml ISec IV PRN ×7 (03:22→22:00)
[2016-10-31] MEDS: Meropenem 1g/NS 100mL IVPB 1 GM/100 ML PIGGYBACK IVPB SCH ×3 (05:56→21:58)
[2016-10-31 07:05] LABS: ALB/GLOB RATIO 0.7 (1.1-1.8); ALBUMIN 1.7 g/dL (3.0-4.8); CALCIUM 7.9 mg/dL (8.4-10.5); MAGNESIUM 1.8 mg/dL (1.7-2.2)
--- NOTE | 2016-10-31 08:27 | PN ---
DATE: 10/30/2016 The patient is in room 364, bed 2. SUBJECTIVE: The patient is seen lying in bed. She appears to be stable, continues on TPN and on ant ibiotics with replacement with electrolytes and magnesium as needed. The patient's medications were reviewed, and after checking with Dr. Avalos, the patient back on her ganciclovir on micafungin along with vancomycin and Merrem. OBJECTIVE: VITAL SIGNS: Stable. Blood pressure is 138/81, pulse 129, T-max is 98.4, heart rate is 18. The pat ient continues to remain tachycardic. HEENT: Head is normocephalic, atraumatic. Conjunctivae pale. Sclerae are anicteric. Examination o f the oropharynx reveals no oropharyngeal lesions. Tongue is moist. The patient to take solid s and she was drinking miller zach today along with water. LUNGS: Clear to percussion and auscultation. CARDIOVASCULAR: Reveals S1 and S2 to be normal. No gallop or murmur is heard. ABDOMEN: Soft, mildly distended. There is mild tenderness on palpation. There is no rebound, rigid ity or guarding. EXTREMITIES: Shows trace edema of the lower extremities. Most of edema is the lower back and . The patient has edema of both upper extremities. LABORATORY DATA: From today reveals a white count of 16, hemoglobin 9.2, platelet count is 42,000. Chemistries are normal. Sodium 141, K is 3.7, chloride is , CO2 of 19, BUN is 52, creatinine 1, glucose 131, potassium is improved to 7.3, corrected normal, albumin of 1.7, phosphorus level of 2.6 and magnesium 1.6, bilirubin is 1.8. The other enzymes are normal. Blood cultures are now positive for . Urine cultures are positive for yeast. The patient is on Mycamine. ASSESSMENT NOTES AND PLAN: The patient has acute renal failure, azotemia improved with hydration. T he patient still remains prerenal on hyperalimentation. Creatinine is back to normal. The patient c ontinues to have loose bowel movements which is mild, but need to keep ahead of her outputs, status post mild hyponatremia, sodium level is 141, stage IV metastatic colorectal cancer with bone metastas is, retroperitoneal disease status post 2 cycles of FOLFOX, Avastin chemotherapy. The patient is sohail ng monitored by GI, status post E. coli infection in the urine. The patient is being monitored by ID as well. The patient is on antifungal medicines. Thrombocytopenia is being closely monitored. The patient has no significant issues with the thrombocytopenia at this time. We will continue to monit or it. This patient is on multiple medicines and the antibiotics can also affect the platelet count at this time. Routine post exam instructions have been given to the patient. I had a detailed talk with the patient's brother, and one sister here and one sister over the phone from [place]. They we re asking all sorts of questions as to what the prognosis of the patient is, what should be doing, wh ere we would be going from here. I told him we are waiting for the biopsies of the endoscopy, which are still pending, which should be available to us tomorrow afternoon to see if there are any inclusi on bodies to quantify the fact that patient may have CMV enteritis which is a possibility. The patie nt is on and she is appearing to be improving on that. I will continue in the meantime a nd the patient in the morning. We will continue to monitor the patient very carefully to make sure that all the cultures are negative at this point. Routine post exam instructions have been give n to the patient and I told the brother and the sister that we are doing our best at this time. Once we have input from GI and ID, we will proceed accordingly, plans for possible palliative colostomy. Infection is of concern at this time. Continue to monitor the patient very carefully. The patient is supposed to be in the morning; we will check with ID whether this should be safe or not. Kedar Hendricks MD cc: [id number] TT: 10/30/2016 23:50:03 Confirmation # [id number] Dictation # [id number] mark
[2016-10-31 08:48] LABS: HEMOGLOBIN 8.9 gm/dL (12.0-16.0); MEAN CELL VOLUME 90.4 fL (80.0-105.0); MEAN CORPUSCULAR HEMOGLOBIN 30.4 pg (25.0-35.0); MEAN CORPUSCULAR HGB CONC 33.6 g/dl (31.0-37.0); PLATELET COUNT 40 10^3/uL (120.0-450.0); RBC 2.93 10^6/uL (3.5-6.1); RED CELL DISTRIBUTION WIDTH 18.8 % (11.5-14.5); WHITE BLOOD COUNT 17.3 10^3/ul (4.5-11.0)
--- NOTE | 2016-10-31 08:49 | CP.PCM.PN ---
<Carlos Feng - Last Filed: 10/31/16 08:45> Subjective - Date & Time of Evaluation Date of Evaluation: 10/31/16 Time of Evaluation: 07:00 - Subjective Subjective: Carlos Feng D.O. PGY-1, General Surgery Progress Note: Dr. Kaykay Devlin. 61 year old female with stage IV colon CA s/p colectomy with reversal, s/p FOLFOX-6 chemo x2 plus XRT to sacral metastasis, now with lower GI bleeding for which we were consulted. Patient was seen and examined at bedside with surgical team. Patient remains relatively unchanged, appears comfortable in bed but tired. Patient states that she still needs time to decide whether or not she wants surgical intervention. Sister at bedside concurs. We welcome and answered any questions. Objective - Vital Signs/Intake and Output Vital Signs (last 24 hours): Temp Pulse Resp BP Pulse Ox 99.9 F H 130 H 20 137/78 99 10/30/16 16:00 10/31/16 02:00 10/30/16 16:00 10/31/16 00:12 10/30/16 16:00 Intake and Output: 10/31/16 10/31/16 06:59 18:59 Intake Total 360 120 Output Total 100 900 Balance 260 -780 - Medications Medications: Current Medications Acetaminophen (Tylenol 650 Mg Supp) 650 mg RC Q4H PRN PRN Reason: Fever >100.4 F Last Admin: 10/29/16 07:02 Dose: 650 mg Acetaminophen (Tylenol 650mg/20.3ml Solution Ud) 650 mg PO Q4 PRN PRN Reason: Fever >100.4 F Benzocaine (Orajel Pm Maximum Strength) 0 gm MT QID PRN PRN Reason: Pain, moderate (4-7) Last Admin: 10/18/16 05:27 Dose: 1 dose Bismuth Subsalicylate (Pepto-Bismol) 262 mg PO BID [facility] Last Admin: 10/30/16 18:51 Dose: Not Given Collagenase (Santyl) 1 gm TOP BID [facility] Last Admin: 10/30/16 18:51 Dose: 1 applic Al Hydrox/Mg Hydrox/Simethicone 30 ml/Diphenhydramine HCl 75 mg/Lidocaine 30 ml 0 ml PO Q2H PRN PRN Reason: Mouth/Throat Pain Last Admin: 10/30/16 11:17 Dose: 30 ml Diphenhydramine HCl (Benadryl) 25 mg IVP Q4H PRN PRN Reason: Allergy symptoms Last Admin: 10/27/16 21:54 Dose: 25 mg Ergocalciferol (Drisdol 50,000 Intl Units Cap) 1 cap PO Q7D [facility] Last Admin: 10/29/16 13:36 Dose: 1 cap Fluconazole (Diflucan) 400 mg PO DAILY [facility]OD[facility]ÍGUE[facility] PRN Reason: Protocol Last Admin: 10/30/16 23:59 Dose: 400 mg Home Med (Home Med) 1 unit PO Q12H PRN PRN Reason: Inflammation Last Admin: 10/18/16 11:03 Dose: 1 unit Meropenem 1g/NS 100mL IVPB (Meropenem 1g/Ns 100ml Ivpb) 1 gm in 100 mls @ 100 mls/hr IVPB Q8 RODRÍGUEZ PRN Reason: Protocol Stop: 11/05/16 14:01 Last Admin: 10/31/16 05:56 Dose: 100 mls/hr Vancomycin HCl (Vancomycin 1gm) 1 gm in 250 mls @ 167 mls/hr IVPB Q12H RODRÍGUEZ PRN Reason: Protocol Last Admin: 10/30/16 23:13 Dose: 167 mls/hr Fat Emulsion Intravenous (Intralipid 20%) 250 mls @ 21 mls/hr IV DAILY@1800 [facility] Stop: 11/01/16 17:59 Last Admin: 10/30/16 18:49 Dose: 21 mls/hr Multivitamins/Vitamin C 10 ml/Chromium/Copper/Manganese/Zinc 1 ml/ Amino Acids 2,011 mls @ 83.792 mls/hr IV .Q24H [facility] Stop: 11/01/16 17:59 Last Admin: 10/30/16 18:50 Dose: 83.792 mls/hr Micafungin Sodium 100 mg/ (Sodium Chloride) 100 mls @ 100 mls/hr IV DAILY [facility] PRN Reason: Protocol Last Admin: 10/30/16 12:03 Dose: 100 mls/hr Metoprolol Tartrate (Lopressor) 25 mg PO BID [facility] Last Admin: 10/30/16 18:57 Dose: 25 mg Metoprolol Tartrate (Lopressor) 5 mg IVP Q6H PRN PRN Reason: Sustained HR > 130 Last Admin: 10/31/16 00:12 Dose: 5 mg Morphine Sulfate (Morphine) 4 mg IV Q3 PRN PRN Reason: Pain, severe (8-10) Last Admin: 10/31/16 06:33 Dose: 4 mg Multi-Ingredient Ointment (Hydrophor Oint) 0 gm TOP Q6H [facility] Last Admin: 10/31/16 03:00 Dose: 1 applic Octreotide Acetate (Sandostatin) 100 mcg SC Q8 [facility] Last Admin: 10/25/16 06:05 Dose: 100 mcg Ondansetron HCl (Zofran Inj) 4 mg IVP Q4H PRN PRN Reason: Nausea/Vomiting Last Admin: 10/29/16 20:46 Dose: 4 mg Pantoprazole Sodium (Protonix Inj) 40 mg IVP DAILY [facility] Last Admin: 10/30/16 09:05 Dose: 40 mg Petrolatum (Desitin Maximum Strength Topical 40% Oint) 1 gm TOP Q4H PRN PRN Reason: Rash Last Admin: 10/23/16 22:39 Dose: 1 applic Sucralfate (Carafate Oral Susp) 1 gm PO BID [facility] Last Admin: 10/30/16 18:49 Dose: Not Given Throat Lozenges (Cepastat) 1 francis MT Q2H PRN PRN Reason: Sore Throat Last Admin: 10/30/16 11:17 Dose: 1 francis Valganciclovir (Valcyte) 900 mg PO DAILY [facility] Last Admin: 10/30/16 10:32 Dose: 900 mg - Labs Labs: 10/30/16 05:30 10/31/16 06:15 PT 13.6 Seconds (9.9-11.8) H 10/26/16 06:24 INR 1.26 (0.93-1.08) H 10/26/16 06:24 APTT 33.1 Seconds (23.7-30.8) H 10/26/16 06:24 - Constitutional Appears: exam remains relatively unchanged, No Acute Distress, Chronically Ill, tired but arousable - Head Exam Head Exam: ATRAUMATIC, NORMOCEPHALIC - Eye Exam Eye Exam: EOMI, Normal appearance - ENT Exam ENT Exam: Mucous Membranes Moist and [place] - Neck Exam Additional comments: soft, supple - Respiratory Exam Respiratory Exam: absent: Accessory Muscle Use, Respiratory Distress - Cardiovascular Exam Cardiovascular Exam: Tachycardic, +S1, +S2 - GI/Abdominal Exam GI & Abdominal Exam: Soft, Normal Bowel Sounds. absent: Distended, Guarding, Tenderness - Extremities Exam Extremities Exam: Pedal Edema (mild) - Skin Additional comments: warm, dry, sacral wound exam refused by patient again Assessment and Plan - Assessment and Plan (Free Text) Assessment: 61 year old female with stage IV colon CA s/p colectomy with reversal, s/p FOLFOX-6 chemo x2 plus XRT to sacral metastasis, now with lower GI bleeding for which we were consulted. 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 Thank you for the pleasure of participating in the care of this patient. <Yoan Mccracken - Last Filed: 12/02/16 23:47> Objective - Vital Signs/Intake and Output Vital Signs (last 24 hours): Temp Pulse Resp BP Pulse Ox 97.8 F 101 H 18 170/89 H 100 12/02/16 16:00 12/02/16 16:00 12/02/16 16:00 12/02/16 16:00 12/02/16 16:00 Intake and Output: 12/02/16 12/03/16 18:59 06:59 Intake Total 120 Output Total 450 600 Balance -450 -480 - Medications Medications: Current Medications Acetaminophen (Tylenol 650 Mg Supp) 650 mg RC Q4H PRN PRN Reason: Fever >100.4 F Last Admin: 11/01/16 21:18 Dose: 650 mg Al Hydrox/Mg Hydrox/Simethicone 30 ml/Diphenhydramine HCl 75 mg/Lidocaine 30 ml 0 ml PO QID [facility] Last Admin: 12/02/16 21:01 Dose: Not Given Diphenhydramine HCl (Benadryl) 50 mg IVP HS PRN PRN Reason: Insomnia Last Admin: 11/27/16 01:00 Dose: 50 mg Ergocalciferol (Drisdol 50,000 Intl Units Cap) 1 cap PO Q7D [facility] Last Admin: 11/19/16 18:04 Dose: Not Given Ferrous Sulfate (Feosol) 324 mg PO TID [facility] Last Admin: 12/02/16 18:16 Dose: Not Given Fluconazole (Diflucan) 200 mg PO DAILY [facility] PRN Reason: Protocol Stop: 12/12/16 10:01 Last Admin: 12/02/16 09:44 Dose: Not Given Home Med (Home Med) 1 unit PO Q12H PRN PRN Reason: Inflammation Last Admin: 10/18/16 11:03 Dose: 1 unit Hydralazine HCl (Apresoline) 10 mg IVP Q4H PRN PRN Reason: Systolic Blood Pressure Hydromorphone HCl (Dilaudid) 1 mg IVP Q1H PRN PRN Reason: Pain, moderate (4-7) Last Admin: 12/02/16 21:06 Dose: 1 mg Levetiracetam (Keppra 500mg Ivpb) 500 mg in 100 mls @ 400 mls/hr IV Q12 [facility] Last Admin: 12/02/16 21:06 Dose: 400 mls/hr Potassium Chloride/Dextrose (Potassium Chl 40 Meq In D5w) 1,000 mls @ 60 mls/ hr IV .[id number] [facility] Last Admin: 12/02/16 18:17 Dose: Not Given Magnesium Hydroxide (Milk Of Magnesia) 30 ml PO DAILY PRN PRN Reason: skin irritation Last Admin: 12/02/16 14:09 Dose: 30 ml Magnesium Oxide (Mag-Ox) 400 mg PO BID [facility] Last Admin: 12/02/16 18:16 Dose: Not Given Multi-Ingredient Ointment (Hydrophor Oint) 0 gm TOP Q6H PRN PRN Reason: Dry lip Multivitamins (Thera Tab) 1 tab PO 0800 [facility] Last Admin: 12/02/16 08:10 Dose: Not Given Propranolol HCl (Inderal La) 120 mg PO DAILY [facility] Last Admin: 12/02/16 09:44 Dose: Not Given Sucralfate (Carafate Oral Susp) 1 gm PO BID [facility] Last Admin: 12/02/16 18:16 Dose: Not Given - Labs Labs: 12/02/16 06:00 12/02/16 06:00 PT 12.9 Seconds (9.9-11.8) H 12/02/16 06:00 INR 1.19 (0.93-1.08) H 12/02/16 06:00 APTT 32.9 Seconds (23.7-30.8) H 12/02/16 06:00 Assessment and Plan - Assessment and Plan (Free Text) Plan: Patient was seen and examined by me. I agree with assessment and plan as per resident's note.
[2016-10-31] MEDS: Vancomycin 1gm in NS 250ml 1 GM/250 ML BAG IVPB SCH (09:03)
[2016-10-31] MEDS: Micafungin 100 MG in Sodium Chloride 0.9% 100 ML IV SCH (09:27)
[2016-10-31] MEDS: Collagenase 250 Units/gm Ointment(30 gm) TOP SCH ×2 (09:27→17:38)
[2016-10-31] MEDS: Sucralfate 1 gm/10 ml Oral Susp UD PO SCH ×2 (10:08→17:35)
[2016-10-31] MEDS: Bismuth Subsalicylate 262 mg/15 ml Sus (240 ml) PO SCH ×2 (10:09→17:38)
--- NOTE | 2016-10-31 13:06 | PN ---
DATE: 10/31/2016 SUBJECTIVE: The patient is currently seen lying in bed. Hyperalimentation is infusing. Her potassium level was 5.0 and the potassium content of her hyperalimentation was discontinued earlier today. Her situation appears to be stable. She remains puffy with dependent lower extremity edema. MEDICATIONS: List reviewed. The patient remains on Benadryl, Carafate, Cepastat, hyperalimentation, Desitin, Diflucan, vitamin D, triamcinolone dental paste, Lopressor, meropenem, micafungin, morphine, Orajel, Pepto-Bismol, Protonix, Santyl, Tylenol p.r.n., Valcyte, vancomycin, and Zofran p.r.n. OBJECTIVE: INTAKE AND OUTPUT: Intake 720+, output 300+. VITAL SIGNS: Blood pressure 143/82, pulse 134, temperature 98.1, respiratory rate 22 with an oxygen saturation of 98%. HEENT: Shows her to be normocephalic, atraumatic. Conjunctivae are pale. Sclerae are nonicteric. NECK: Supple, no neck vein distention. CHEST: Clear to auscultation and percussion. CARDIOVASCULAR: Shows a normal S1, S2. No audible murmurs, rubs, or gallops. ABDOMEN: Soft. Bowel sounds normal. Mild tenderness on palpation diffusely. No rebound, no guarding, no masses appreciated. EXTREMITIES: Show 1+ dependent edema of her lower extremity. Her arms are puffy bilaterally. LABORATORY DATA AND IMAGING: CBC today: White blood cell count 17.3, hemoglobin 8.9, platelet count is 40,000. Manual platelet count is 70,000. Chemistries: Sodium 139, potassium up to 5.0 from 3.7, chloride is 116, CO2 is 18. Anion gap 10, BUN is up to 65, creatinine is 1.3, slightly higher. Glucose is 112, calcium 7.9 with an albumin of 1.7. Phosphorus is 3.2, magnesium level is normal at 1.8. Microbiology cultures: Again, blood cultures are positive for yeast. ASSESSMENT: 1. Acute renal failure, prerenal azotemia, improved with hydration. The patient is now becoming slightly more prerenal on hyperalimentation. Her diarrhea has lessened. We will attempt to keep her fluids in balance. 2. Status post mild hypernatremia. Sodium level is now normal. 3. Status post hypokalemia. With aggressive potassium supplementation and her hyperal, potassium is now 5.0. As a consequence to that, potassium was discontinued from the hyperal and will likely need to add less potassium to each bag. 4. History of diarrhea. This appears to have improved. Stools were negative for Clostridium difficile. The patient is being followed by GI. 5. Status post Escherichia coli urinary tract infection. 6. Fungemia. The patient is currently on antifungal agents as per infectious disease. 7. 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 The patient being followed closely by oncology. 8. History of anemia and thrombocytopenia, all secondary to metastatic colon cancer. PLAN: 1. Discussed with staff on 3R. The hyperalimentation formula was changed. The patient is now on a 0 K formula in order not to worsen her hyperkalemia. 2. Continue antibiotics, antifungal agents and antiviral agents as per infectious disease. 3. We will attempt to match her I's and O's. 4. Continue to monitor labs on a daily basis. Kyle Brooks MD cc: [id number] TT: 10/31/2016 13:05:50 Confirmation # [id number] Dictation # [id number]
[2016-10-31] MEDS ORDERED: Lidocaine 2% Inj (20ml) ONE (14:23)
--- NOTE | 2016-10-31 16:36 | PN ---
DATE: 10/31/2016 Seen and examined at the bedside earlier today. The patient was asleep, a little lethargic, but arou sable. Her sister was at the bedside. The patient apparently was still complaining of mouth, being unable to swallow ____, was unable to tolerate any liquids today. She is having abdominal pain now a nd also had some loose stool. No reports of any bleeding. VITAL SIGNS: Temperature 98.1, blood pressure 143/82, pulse is 134, respirations 22, and 98 O2 satur ation on nasal cannula. LABORATORY DATA: Her WBC is 7.3, H and H is 8.9 and 26.5, platelet is 40, the manual platelet is 70. Her sodium is 139, K 5.0, BUN is 65, creatinine is 1.3. Total bilirubin is 1.5, AST 15, ALT 23. A lk phos is 119, this is better. PHYSICAL EXAMINATION: HEENT: Sclera is anicteric. NECK: Supple. CARDIAC: S1, S2. LUNGS: With decreased breath sounds at the bases, but good air entry. ABDOMEN: With bowel sounds, soft, does have some tenderness, no rebound or guarding. ASSESSMENT: Colon cancer, status post anterior resection and chemoradiation; status post gastrointes tinal bleed. Had endoscopy and colonoscopy and found to have large ulceration in the esophagus as we ll as ulcerations at the anastomotic area in the colon. Still awaiting for pathology to come back to rule out cytomegalovirus. The patient is already on ganciclovir. The patient did have much improve ment as far as abdominal pain and being able to tolerate oral intake, but now today she is complainin g of problems with swallowing and the pain. Her diarrhea did improve. She was given previous ____ d oses of codeine and Sandostatin. She is off of these now, but she had a few loose stools, no bleedin g. Sepsis, status post neutropenia, ____ found to have partial small-bowel obstruction, thrombocytop enia, anemia, status post multiple blood transfusion. PLAN: She continues on clear liquid diet. Remains on PPN. She is also on IV antibiotics, pain kj gement, PPI, Carafate and on ganciclovir p.o. We will continue to follow closely. The patient was seen and case discussed with Dr. Null. Yoana IQBAL cc: [id number] TT: 10/31/2016 16:35:54 Confirmation # [id number] Dictation # [id number] sn
[2016-10-31] MEDS: AMINO IV SCH (17:36)
[2016-10-31] MEDS: MULTIVITAMIN IV SCH (17:36)
[2016-10-31] MEDS: DEXT IV SCH (17:36)
[2016-10-31] MEDS: [UNRECOGNIZED DRUG - OTHER] IV SCH (17:36)
[2016-10-31] MEDS: TRACE ELEMENTS IV SCH (17:36)
[2016-10-31] MEDS: Fat Emulsion 20% IV 250 ML IV SCH (17:37)
--- NOTE | 2016-10-31 17:45 | VASCULAR ---
PROCEDURE: Ultrasound and fluoroscopically placed left upper extremity PICC line. HISTORY: Stage IV colorectal CA. Neutropenic and septic. Needs PICC line. PHYSICIAN(S): Shabbir Hackett MD. TECHNIQUE: The relative risks and indications of the procedure were explained to the patient and her family and consent obtained. The patient was placed supine on the arteriogram table and the left arm prepped and draped in the usual sterile fashion. A tourniquet was applied to the left axilla. 1% Xylocaine was used to anesthetize the skin and soft tissues at the puncture site above the elbow. The this vein was punctured under direct ultrasound guidance with a micropuncture set. A 0.018 guidewire was advanced centrally and used to measure the length to the SVC/RA junction. A 5 [place] dual-lumen PICC line 44 cm long was advanced to the SVC/RA junction. The catheter was flushed and secured. The patient tolerated the procedure well. IMPRESSION: 1. Ultrasound and fluoroscopically placed left upper extremity PICC line. A 5 [place] dual lumen PICC line 44 cm long was advanced to the SVC/RA junction.
--- NOTE | 2016-10-31 18:13 | CP.PCM.PN ---
Subjective - Date & Time of Evaluation Date of Evaluation: 10/31/16 Time of Evaluation: 10:25 - Subjective Subjective: Patient continues to be weak and tired, still not swallowing well. Objective - Vital Signs/Intake and Output Vital Signs (last 24 hours): Temp Pulse Resp BP Pulse Ox 99.9 F H 130 H 20 137/78 99 10/30/16 16:00 10/31/16 02:00 10/30/16 16:00 10/31/16 00:12 10/30/16 16:00 Intake and Output: 10/31/16 10/31/16 06:59 18:59 Intake Total 360 120 Output Total 100 900 Balance 260 -780 - Medications Medications: Current Medications Acetaminophen (Tylenol 650 Mg Supp) 650 mg RC Q4H PRN PRN Reason: Fever >100.4 F Last Admin: 10/29/16 07:02 Dose: 650 mg Acetaminophen (Tylenol 650mg/20.3ml Solution Ud) 650 mg PO Q4 PRN PRN Reason: Fever >100.4 F Benzocaine (Orajel Pm Maximum Strength) 0 gm MT QID PRN PRN Reason: Pain, moderate (4-7) Last Admin: 10/18/16 05:27 Dose: 1 dose Bismuth Subsalicylate (Pepto-Bismol) 262 mg PO BID [facility] Last Admin: 10/30/16 18:51 Dose: Not Given Collagenase (Santyl) 1 gm TOP BID [facility] Last Admin: 10/30/16 18:51 Dose: 1 applic Al Hydrox/Mg Hydrox/Simethicone 30 ml/Diphenhydramine HCl 75 mg/Lidocaine 30 ml 0 ml PO Q2H PRN PRN Reason: Mouth/Throat Pain Last Admin: 10/30/16 11:17 Dose: 30 ml Diphenhydramine HCl (Benadryl) 25 mg IVP Q4H PRN PRN Reason: Allergy symptoms Last Admin: 10/27/16 21:54 Dose: 25 mg Ergocalciferol (Drisdol 50,000 Intl Units Cap) 1 cap PO Q7D [facility] Last Admin: 10/29/16 13:36 Dose: 1 cap Fluconazole (Diflucan) 400 mg PO DAILY [facility] PRN Reason: Protocol Last Admin: 10/30/16 23:59 Dose: 400 mg Home Med (Home Med) 1 unit PO Q12H PRN PRN Reason: Inflammation Last Admin: 10/18/16 11:03 Dose: 1 unit Meropenem 1g/NS 100mL IVPB (Meropenem 1g/Ns 100ml Ivpb) 1 gm in 100 mls @ 100 mls/hr IVPB Q8 [facility] PRN Reason: Protocol Stop: 11/05/16 14:01 Last Admin: 10/31/16 05:56 Dose: 100 mls/hr Vancomycin HCl (Vancomycin 1gm) 1 gm in 250 mls @ 167 mls/hr IVPB Q12H [facility] PRN Reason: Protocol Last Admin: 10/30/16 23:13 Dose: 167 mls/hr Fat Emulsion Intravenous (Intralipid 20%) 250 mls @ 21 mls/hr IV DAILY@1800 [facility] Stop: 11/01/16 17:59 Last Admin: 10/30/16 18:49 Dose: 21 mls/hr Multivitamins/Vitamin C 10 ml/Chromium/Copper/Manganese/Zinc 1 ml/ Amino Acids 2,011 mls @ 83.792 mls/hr IV .Q24H [facility] Stop: 11/01/16 17:59 Last Admin: 10/30/16 18:50 Dose: 83.792 mls/hr Micafungin Sodium 100 mg/ (Sodium Chloride) 100 mls @ 100 mls/hr IV DAILY [facility] PRN Reason: Protocol Last Admin: 10/30/16 12:03 Dose: 100 mls/hr Metoprolol Tartrate (Lopressor) 25 mg PO BID [facility] Last Admin: 10/30/16 18:57 Dose: 25 mg Metoprolol Tartrate (Lopressor) 5 mg IVP Q6H PRN PRN Reason: Sustained HR > 130 Last Admin: 10/31/16 00:12 Dose: 5 mg Morphine Sulfate (Morphine) 4 mg IV Q3 PRN PRN Reason: Pain, severe (8-10) Last Admin: 10/31/16 06:33 Dose: 4 mg Multi-Ingredient Ointment (Hydrophor Oint) 0 gm TOP Q6H [facility] Last Admin: 10/31/16 03:00 Dose: 1 applic Octreotide Acetate (Sandostatin) 100 mcg SC Q8 [facility] Last Admin: 10/25/16 06:05 Dose: 100 mcg Ondansetron HCl (Zofran Inj) 4 mg IVP Q4H PRN PRN Reason: Nausea/Vomiting Last Admin: 10/29/16 20:46 Dose: 4 mg Pantoprazole Sodium (Protonix Inj) 40 mg IVP DAILY [facility] Last Admin: 10/30/16 09:05 Dose: 40 mg Petrolatum (Desitin Maximum Strength Topical 40% Oint) 1 gm TOP Q4H PRN PRN Reason: Rash Last Admin: 10/23/16 22:39 Dose: 1 applic Sucralfate (Carafate Oral Susp) 1 gm PO BID [facility] Last Admin: 10/30/16 18:49 Dose: Not Given Throat Lozenges (Cepastat) 1 francis MT Q2H PRN PRN Reason: Sore Throat Last Admin: 10/30/16 11:17 Dose: 1 francis Valganciclovir (Valcyte) 900 mg PO DAILY [facility] Last Admin: 10/30/16 10:32 Dose: 900 mg - Labs Labs: 10/30/16 05:30 10/31/16 06:15 PT 13.6 Seconds (9.9-11.8) H 10/26/16 06:24 INR 1.26 (0.93-1.08) H 10/26/16 06:24 APTT 33.1 Seconds (23.7-30.8) H 10/26/16 06:24 - Constitutional Appears: Chronically Ill - Head Exam Head Exam: ATRAUMATIC - Neck Exam Neck Exam: absent: Meningismus - Respiratory Exam Respiratory Exam: Decreased Breath Sounds Additional comments: right anterior chest wall port site intact - Cardiovascular Exam Cardiovascular Exam: +S1, +S2 - GI/Abdominal Exam GI & Abdominal Exam: Soft, Tenderness (mild). absent: Distended, Guarding, Rigid, Rebound Assessment and Plan - Assessment and Plan (Free Text) Plan: Assessment sepsis due to fungemia, suspicious for the port-a-cath as the source since the patient has been on TPN through the port; R/O intra-abdominal source Partial small bowel obstruction, persistent with colonic stricture Acute stomatitis and mucositis, as well as esophageal ulcers and enteritis R/O CMV S/P biopsy of the esophageal ulcers Neutropenia probably from chemotherapy, resolved HTN 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 S/P colectomy in 2014 history of UTI GERD anxiety Plan continue Mycamine and Valganciclovir, Merrem pending esophageal ulcer biopsy; blood cx show yeast and we have repeated blood cx last night discussed with Dr. Hendricks - since patient has difficult venous access, even though we have no proof of clear blood cx yet, PICC may be placed; also discussed that Port should be removed Reviewed repeat CT scan of the abdomen and pelvis which shows the partial small bowel obstruction / stricture and she continues to be on parenteral nutrition Will continue to follow clinically Overall prognosis is poor
--- NOTE | 2016-10-31 18:26 | CON ---
DATE: 10/31/2016 REASON FOR CONSULTATION: Sinus tachycardia. BRIEF CLINICAL HISTORY: This is a 61-year-old female with stage IV colon cancer, colectomy, status p ost chemotherapy, had a PICC line today and also has a low grade fever, UTI and the tachycardia, so c ardiology consult was called. The patient denies any chest pain. Very weak, lethargic. Recently go t pain medication. Mother is at the bedside. Mother is at the bedside. PAST HISTORY: Significant for colon cancer diagnosed in 2014, status post resection with metastasis. History of neurogenic bladder. History of chemotherapy. PAST SURGICAL HISTORY: Significant for surgical resection of colectomy and resection of the node. FAMILY HISTORY: Noncontributory. SOCIAL HISTORY: No history of smoking. No history of substance abuse. MEDICATIONS AT HOME: Lactobacillus, morphine, omeprazole, Compazine. CURRENT MEDICATIONS: The patient here in the hospital is getting Benadryl, sucralfate, magnesium, zi nc, metoprolol b.i.d. REVIEW OF SYSTEMS: As per HPI. PHYSICAL EXAMINATION: As follows: VITAL SIGNS: Temperature ____ 100, heart rate 134, blood pressure 143/82. HEENT: PERRLA, intact. NECK: Supple. No carotid bruits. No thyromegaly. CHEST: Clear to auscultation. HEART: S1, S2 regular. ABDOMEN: Soft. EXTREMITIES: Clubbing and cyanosis negative. BLOOD WORKUP: As follows: WBC 17.3, hemoglobin 8.9, hematocrit 26.5, platelet count 40. Chemistry shows sodium ____, potassium 5, chloride 116, carbon dioxide 18, anion gap of 10, BUN 6, creatinine o f 1.3. Blood culture negative. Urine culture positive for Escherichia coli. IMPRESSION: Sinus tachycardia, sepsis, hyponatremia, hypokalemia, anemia, urinary tract infection, h istory of fungemia on antifungal agent, very weak, status post peripherally inserted central catheter line. Sinus tachycardia is multifactorial secondary to underlying condition, urinary tract infectio n, low grade fever, sepsis, leukocytosis, severe anemia. RECOMMENDATION: We will treat symptomatically. Overall, patient's condition is critical. Correction prognosis extremely guarded. We will review if any previous echo was done on the patient. Once stab le, we will get an echo to assess LV function. Interim, continue beta elena and supportive care. Sergio fernandez patient's condition is critical. Correction prognosis extremely guarded. We will follow with you. Thank you, Dr. Hendricks, for providing us the opportunity in taking care of the patient. EKG reviewed , is a sinus tachycardia. We will follow with you. Probably this is secondary to underlying medical condition. Sherrell Busby MD cc: [id number] TT: 10/31/2016 18:25:56 Confirmation # [id number] Dictation # [id number] sn
--- NOTE | 2016-10-31 21:36 | PN ---
DATE: 10/31/2016 on the medical floor. For Dr. Hendricks. SUBJECTIVE: The patient is a 61-year-old female now being followed for neutropenic sepsis with acute renal failure, which has improved. The patient unable to take solids due to severe stricture at the 10 cm level of the sigmoid with anemic indices, thrombocytopenia, now failure to thrive with sacral decubitus on hyperal with the patient lying somnolent, but arousable with her brother at the bedside. A PICC line was placed today by Dr. Shabbir Hackett with good effect. PHYSICAL EXAMINATION: VITAL SIGNS: Temperature 98.1, pulse 119, respirations 15, blood pressure 138/88, pulse ox 99%. HEENT: Unremarkable. Tongue is dry with no oral lesions appreciated. NECK: Supple. HEART: Tachy rate, regular rhythm. LUNGS: Clear. ABDOMEN: Soft. Minimally distended. EXTREMITIES: +1 edema with ecchymotic changes to her arms status post phlebotomy attempts. LABORATORY DATA: The patient's labs were done. White blood cell count of 17.3 thousand, hemoglobin 8.9, hematocrit 26.5, platelet count of 40,000, a manual of 70,000. Her chem metabolic panel shows a normal chem metabolic panel except for BUN of 65, creatinine 1.3, chloride of 116, calcium of 7.9, T -bili of 1.5, total protein 4.2, albumin of 1.7. The patient had a urinalysis done 2 days prior and showed a large amount of blood with a catheter eloisa reciated. The patient did have a cardiac catheterization as per Dr. Busby with the report to be interpreted as p er Dr. Busby with Dr. Busby reporting an echocardiogram to assess left ventricular function for her tac hycardia. The patient did have a PICC line placed. The patient's most recent blood culture showed yeast species, Staph aureus and coag negative staph, P NA, FISH, preliminary blood result yeast species. The patient also had an EGD with biopsy and sigmoidoscopy done on 10/26 showing severe esophagitis wi th ulcerations in the sigmoid showing necrotic ulcer with stricture at the 10 cm level. ASSESSMENT: Chronic ulcer with known stage IV cancer of the colon with rectal bleed, symptomatic ane carly, decubitus ulcer, history of neutropenic sepsis, thrombocytopenia, acute renal failure improved, partial small-bowel obstruction, cauda equina syndrome, gastroesophageal reflux disease, malnutrition , esophagitis with ulceration, hypoalbuminemia and deconditioning mucositis. Electrolyte imbalance. PLAN: To continue the present medical regimen as per Dr. Hendricks. We will type and cross and hold f or 2 units of packed red blood cells with consideration for transfusion as indicated with considerati on for surgical procedure once the patient is stable as a PICC line was placed today. Also, testing for CMV on her biopsy reports with the prognosis for this patient guarded. The patient is on hyperal and she is also getting Mycamine with the surgeon following patient for her decubitus of the sacrum. The prognosis for this patient is guarded. This was explained to the patient and to her family mem aylin which is her brother. Will monitor clinically and with labs. Tomasz Winters MD cc: [id number] TT: 10/31/2016 21:36:08 Confirmation # [id number] Dictation # [id number] mn
[2016-11-01] MEDS: Morphine 4 mg/ml ISec IV PRN ×6 (01:49→21:46)
[2016-11-01] MEDS: Petrolatum-Mineral Oil Oint (100gm) TOP SCH ×3 (01:52→18:37)
[2016-11-01] MEDS: DiphenhydrAMINE 50 mg/ml Inj IVP PRN (04:09)
[2016-11-01] MEDS: Meropenem 1g/NS 100mL IVPB 1 GM/100 ML PIGGYBACK IVPB SCH ×2 (05:02→14:41)
[2016-11-01 07:37] LABS: ALB/GLOB RATIO 0.6 (1.1-1.8); ALBUMIN 1.6 g/dL (3.0-4.8); CALCIUM 7.7 mg/dL (8.4-10.5); MAGNESIUM 1.9 mg/dL (1.7-2.2)
--- NOTE | 2016-11-01 08:27 | PN ---
DATE: 10/31/2016 ADDENDUM HISTORY OF PRESENT ILLNESS: This is an addendum to the GI progress report dictated by Dale Wong. I did discuss with the patient's . Had a detailed discussion also with the patient's famil y. Discussed with the pathologist. The preliminary path . PHYSICAL EXAMINATION: Abdomen had mild diffuse tenderness present. No rebound. The patient feels t he swallowing is slightly better, still has odynophagia. Had an episode of moderate diarrhea. No ble eding per rectum noticed. PLAN: 1. Continue the hemoglobin and hematocrit. 2. Continue the valganciclovir as per ID. 3. Followup of the pathology report still pending. 4. May need a colostomy. The concern is still awaiting for the colostomy. Discussed with Dr. Mccracken. No bleeding. The plan is to follow up the hemoglobin and hematocrit. Follow up the histology. would need c olostomy, awaiting for the final path report. Thank you very much for allowing us to participate in the care of the patient. Tong Null MD cc: [id number] TT: 10/31/2016 22:08:27 Confirmation # [id number] Dictation # [id number]
[2016-11-01 08:43] LABS: BASO # 0.01 K/mm3 (0.0-2.0); BASO % 0.1 % (0.0-3.0); EOS # 0.2 (0.0-0.7); EOS % 1.2 % (1.5-5.0); GRAN # 13.56 (1.4-6.5); GRAN % 93.9 % (50.0-68.0); LYMPH # 0.4 (1.2-3.4); LYMPH % 2.8 % (22.0-35.0); MEAN CELL VOLUME 92.7 fL (80.0-105.0); MEAN CORPUSCULAR HEMOGLOBIN 31.2 pg (25.0-35.0); MEAN CORPUSCULAR HGB CONC 33.6 g/dl (31.0-37.0); MONO # 0.3 (0.1-0.6); PLATELET COUNT 45 10^3/uL (120.0-450.0); RBC 2.47 10^6/uL (3.5-6.1); RED CELL DISTRIBUTION WIDTH 18.9 % (11.5-14.5); WHITE BLOOD COUNT 14.4 10^3/ul (4.5-11.0)
[2016-11-01 08:48] LABS: HEMOGLOBIN 7.7 gm/dL (12.0-16.0)
[2016-11-01 09:08] LABS: PLATELET COUNT MANUAL 85 K/mm3 (120-450)
--- NOTE | 2016-11-01 09:16 | CP.PCM.PN ---
<Carlos Feng - Last Filed: 11/01/16 09:12> Subjective - Date & Time of Evaluation Date of Evaluation: 11/01/16 Time of Evaluation: 06:30 - Subjective Subjective: Carlos Feng D.O. PGY-1, General Surgery Progress Note: Dr. Kaykay Devlin. 61 year old female with stage IV colon CA s/p colectomy with reversal, s/p FOLFOX-6 chemo x2 plus XRT to sacral metastasis, now with lower GI bleeding for which we were consulted. Patient was seen and examined at bedside with surgical team and family at bedside. Patient has no complaints at this time, found resting comfortably, and continues to just state that she feels "tired." We reviewed the clinical condition with family at bedside and welcomed and answered all questions. No fevers/chills or other overnight events. Objective - Vital Signs/Intake and Output Vital Signs (last 24 hours): Temp Pulse Resp BP Pulse Ox 98.7 F 126 H 22 167/95 H 97 11/01/16 08:03 11/01/16 08:03 11/01/16 08:03 11/01/16 08:03 11/01/16 08:03 Intake and Output: 11/01/16 11/01/16 06:59 18:59 Intake Total 2842 Output Total 1100 Balance 1742 - Medications Medications: Current Medications Acetaminophen (Tylenol 650 Mg Supp) 650 mg RC Q4H PRN PRN Reason: Fever >100.4 F Last Admin: 10/29/16 07:02 Dose: 650 mg Acetaminophen (Tylenol 650mg/20.3ml Solution Ud) 650 mg PO Q4 PRN PRN Reason: Fever >100.4 F Bismuth Subsalicylate (Pepto-Bismol) 262 mg PO BID RODRÍGUEZ Last Admin: 10/31/16 17:38 Dose: Not Given Collagenase (Santyl) 1 gm TOP BID RODRÍGUEZ Last Admin: 10/31/16 17:38 Dose: 1 applic Al Hydrox/Mg Hydrox/Simethicone 30 ml/Diphenhydramine HCl 75 mg/Lidocaine 30 ml 0 ml PO Q2H PRN PRN Reason: Mouth/Throat Pain Last Admin: 10/30/16 11:17 Dose: 30 ml Diphenhydramine HCl (Benadryl) 25 mg IVP Q4H PRN PRN Reason: Allergy symptoms Last Admin: 11/01/16 04:09 Dose: 25 mg Ergocalciferol (Drisdol 50,000 Intl Units Cap) 1 cap PO Q7D [facility] Last Admin: 10/29/16 13:36 Dose: 1 cap Home Med (Home Med) 1 unit PO Q12H PRN PRN Reason: Inflammation Last Admin: 10/18/16 11:03 Dose: 1 unit Meropenem 1g/NS 100mL IVPB (Meropenem 1g/Ns 100ml Ivpb) 1 gm in 100 mls @ 100 mls/hr IVPB Q8 RODRÍGUEZ PRN Reason: Protocol Stop: 11/05/16 14:01 Last Admin: 11/01/16 05:02 Dose: 100 mls/hr Micafungin Sodium 100 mg/ (Sodium Chloride) 100 mls @ 100 mls/hr IV DAILY RODRÍGUEZ PRN Reason: Protocol Last Admin: 10/31/16 09:27 Dose: 100 mls/hr Chromium/Copper/Manganese/Zinc 1 ml/ Multivitamins/Vitamin C 10 ml/ Amino Acids 2,011 mls @ 83 mls/hr IV .Q24H [facility] Last Admin: 10/31/16 17:36 Dose: 83 mls/hr Fat Emulsion Intravenous (Intralipid 20%) 250 mls @ 21 mls/hr IV 1800 RODRÍGUEZ Last Admin: 10/31/16 17:37 Dose: 21 mls/hr Dextrose (Dextrose 5% In Water 1000 Ml) 1,000 mls @ 50 mls/hr IV .Q20H [facility] Last Admin: 10/31/16 12:50 Dose: 50 mls/hr Metoprolol Tartrate (Lopressor) 5 mg IVP Q6H PRN PRN Reason: Sustained HR > 130 Last Admin: 10/31/16 00:12 Dose: 5 mg Morphine Sulfate (Morphine) 4 mg IV Q3 PRN PRN Reason: Pain, severe (8-10) Last Admin: 11/01/16 04:58 Dose: 4 mg Multi-Ingredient Ointment (Hydrophor Oint) 0 gm TOP Q6H [facility] Last Admin: 11/01/16 01:52 Dose: 1 applic Ondansetron HCl (Zofran Inj) 4 mg IVP Q4H PRN PRN Reason: Nausea/Vomiting Last Admin: 10/29/16 20:46 Dose: 4 mg Pantoprazole Sodium (Protonix Inj) 40 mg IVP DAILY [facility] Last Admin: 10/31/16 09:03 Dose: 40 mg Petrolatum (Desitin Maximum Strength Topical 40% Oint) 1 gm TOP Q4H PRN PRN Reason: Rash Last Admin: 10/23/16 22:39 Dose: 1 applic Propranolol HCl (Inderal) 20 mg PO TID [facility] Last Admin: 10/31/16 17:37 Dose: Not Given Sucralfate (Carafate Oral Susp) 1 gm PO BID [facility] Last Admin: 10/31/16 17:35 Dose: Not Given Throat Lozenges (Cepastat) 1 francis MT Q2H PRN PRN Reason: Sore Throat Last Admin: 10/30/16 11:17 Dose: 1 francis Valganciclovir (Valcyte) 900 mg PO DAILY [facility] Last Admin: 10/31/16 09:03 Dose: 900 mg - Labs Labs: 11/01/16 06:20 11/01/16 06:20 PT 13.6 Seconds (9.9-11.8) H 10/26/16 06:24 INR 1.26 (0.93-1.08) H 10/26/16 06:24 APTT 33.1 Seconds (23.7-30.8) H 10/26/16 06:24 - Constitutional Appears: No Acute Distress, Chronically Ill - Head Exam Head Exam: ATRAUMATIC, NORMOCEPHALIC - Eye Exam Eye Exam: EOMI, Normal appearance - ENT Exam ENT Exam: Mucous Membranes Moist and [place] - Neck Exam Additional comments: soft, supple - Respiratory Exam Respiratory Exam: absent: Accessory Muscle Use, Respiratory Distress - Cardiovascular Exam Cardiovascular Exam: Tachycardic, +S1, +S2 - GI/Abdominal Exam GI & Abdominal Exam: Soft, Normal Bowel Sounds. absent: Distended, Guarding, Tenderness - Extremities Exam Extremities Exam: Pedal Edema - Skin Additional comments: warm, dry, sacral wound exam refused by patient again, review of nursing notes continued daily changes with optofoam Assessment and Plan - Assessment and Plan (Free Text) Assessment: 61 year old female with stage IV colon CA s/p colectomy with reversal, s/p FOLFOX-6 chemo x2 plus XRT to sacral metastasis, now with lower GI bleeding from ulcerated mass seen on flex sig Plan: Medical team managing her multiple current medical problems, most recently found to have Susy bacteremia and 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 Thank you for the pleasure of participating in the care of this interesting patient. <Yoan Mccracken - Last Filed: 12/02/16 23:47> Objective - Vital Signs/Intake and Output Vital Signs (last 24 hours): Temp Pulse Resp BP Pulse Ox 97.8 F 101 H 18 170/89 H 100 12/02/16 16:00 12/02/16 16:00 12/02/16 16:00 12/02/16 16:00 12/02/16 16:00 Intake and Output: 12/02/16 12/03/16 18:59 06:59 Intake Total 120 Output Total 450 600 Balance -450 -480 - Medications Medications: Current Medications Acetaminophen (Tylenol 650 Mg Supp) 650 mg RC Q4H PRN PRN Reason: Fever >100.4 F Last Admin: 11/01/16 21:18 Dose: 650 mg Al Hydrox/Mg Hydrox/Simethicone 30 ml/Diphenhydramine HCl 75 mg/Lidocaine 30 ml 0 ml PO QID [facility] Last Admin: 12/02/16 21:01 Dose: Not Given Diphenhydramine HCl (Benadryl) 50 mg IVP HS PRN PRN Reason: Insomnia Last Admin: 11/27/16 01:00 Dose: 50 mg Ergocalciferol (Drisdol 50,000 Intl Units Cap) 1 cap PO Q7D [facility] Last Admin: 11/19/16 18:04 Dose: Not Given Ferrous Sulfate (Feosol) 324 mg PO TID [facility] Last Admin: 12/02/16 18:16 Dose: Not Given Fluconazole (Diflucan) 200 mg PO DAILY RODRÍGUEZ PRN Reason: Protocol Stop: 12/12/16 10:01 Last Admin: 12/02/16 09:44 Dose: Not Given Home Med (Home Med) 1 unit PO Q12H PRN PRN Reason: Inflammation Last Admin: 10/18/16 11:03 Dose: 1 unit Hydralazine HCl (Apresoline) 10 mg IVP Q4H PRN PRN Reason: Systolic Blood Pressure Hydromorphone HCl (Dilaudid) 1 mg IVP Q1H PRN PRN Reason: Pain, moderate (4-7) Last Admin: 12/02/16 21:06 Dose: 1 mg Levetiracetam (Keppra 500mg Ivpb) 500 mg in 100 mls @ 400 mls/hr IV Q12 [facility] Last Admin: 12/02/16 21:06 Dose: 400 mls/hr Potassium Chloride/Dextrose (Potassium Chl 40 Meq In D5w) 1,000 mls @ 60 mls/ hr IV .[id number] [facility] Last Admin: 12/02/16 18:17 Dose: Not Given Magnesium Hydroxide (Milk Of Magnesia) 30 ml PO DAILY PRN PRN Reason: skin irritation Last Admin: 12/02/16 14:09 Dose: 30 ml Magnesium Oxide (Mag-Ox) 400 mg PO BID [facility] Last Admin: 12/02/16 18:16 Dose: Not Given Multi-Ingredient Ointment (Hydrophor Oint) 0 gm TOP Q6H PRN PRN Reason: Dry lip Multivitamins (Thera Tab) 1 tab PO 0800 [facility] Last Admin: 12/02/16 08:10 Dose: Not Given Propranolol HCl (Inderal La) 120 mg PO DAILY [facility] Last Admin: 12/02/16 09:44 Dose: Not Given Sucralfate (Carafate Oral Susp) 1 gm PO BID [facility] Last Admin: 12/02/16 18:16 Dose: Not Given - Labs Labs: 12/02/16 06:00 12/02/16 06:00 PT 12.9 Seconds (9.9-11.8) H 12/02/16 06:00 INR 1.19 (0.93-1.08) H 12/02/16 06:00 APTT 32.9 Seconds (23.7-30.8) H 12/02/16 06:00 Assessment and Plan - Assessment and Plan (Free Text) Plan: Patient was seen and examined by me. I agree with assessment and plan as per resident's note.
[2016-11-01] MEDS: Bismuth Subsalicylate 262 mg/15 ml Sus (240 ml) PO SCH ×2 (10:00→18:39)
[2016-11-01] MEDS: Micafungin 100 MG in Sodium Chloride 0.9% 100 ML IV SCH (10:11)
[2016-11-01] MEDS ORDERED: DiphenhydrAMINE 50 mg/ml Inj IVP STA (10:37)
--- NOTE | 2016-11-01 11:12 | PN ---
DATE: 11/01/2016 SUBJECTIVE: The patient is currently seen lying in bed. She appears uncomfortable. She is complain ing of mild abdominal discomfort. She is unable to take in any significant amount of food or liquid secondary to mucositis and stomatitis. She remains on hyperalimentation. Potassium was discontinued yesterday in the hyperalimentation because of a potassium of 5.0. She has a slowly rising BUN and c reatinine. She is puffy and has worsening dependent edema. MEDICATIONS: Medication list reviewed. The patient is currently on Benadryl, Carafate, Cepastat francis enges, hyperalimentation, Desitin, vitamin D, triamcinolone dental paste, Hydrophor ointment, meropen em, micafungin, morphine p.r.n., Pepto-Bismol, Protonix, Santyl, Tylenol p.r.n., Valcyte, and Zofran p.r.n. OBJECTIVE: INTAKE AND OUTPUT: Intake 2962, output 2000. VITAL SIGNS: Blood pressure ranging 140-167 systolic, diastolic 83-95, heart rate 126, temperature 9 8.7, respiratory rate 22. HEENT: Normocephalic, atraumatic. Conjunctivae are pale. Sclerae are nonicteric. NECK: Supple, no neck vein distention. CHEST: Clear to auscultation and percussion. CARDIOVASCULAR: Normal S1, S2. No murmurs, rubs, or gallops. ABDOMEN: Soft. Bowel sounds normal. Diffuse tenderness on palpation in all 4 quadrants. No reboun d, no guarding, no masses. EXTREMITIES: Show 1-2+ pitting edema of her lower extremity. Arms are puffy. Buttock positive decu biti ulcerations. LABORATORY DATA AND IMAGING: CBC: White blood cell count today is down to 14.4 with a hemoglobin do wn to 7.7. Platelet count is 85,000 on the manual. Chemistries: Sodium 137, potassium down to 4.4, chloride 160 with a CO2 of 17, BUN is 74 with a creatinine of 1.5, glucose 115, calcium 7.7 with an albumin of 1.6 corrects to normal. Bilirubin 1.8. Liver enzymes otherwise are normal. Alkaline wilbur sphatase is mildly elevated at 141. Microbiology: Blood cultures are positive for Susy albicans. Abdominal CT scan done several days ago shows a possible partial small-bowel obstruction. ASSESSMENT: 1. Acute renal failure, prerenal azotemia, worsening as patient is on hyperalimentation. Her diarrh ea has improved. The plan is to try and keep her in fluid balance realizing that she is becoming mor e edematous as all of her nutrition appears to be through hyperalimentation. 2. Stomatitis, mucositis, fungemia with Susy, and sacral decubiti. The patient continues on empi melanie antibiotic, antifungal and antiviral therapy. 3. Electrolyte abnormalities in the setting of hyperalimentation. Hyperalimentation formula is adju sted on a frequent basis. Presently, she is receiving no potassium in her hyperalimentation as her B UN and creatinine continue to worsen. 4. Status post Escherichia coli urinary tract infection. 5. Stage IV metastatic colon cancer with bone metastases. The patient is followed closely by [facility]. 6. History of anemia and thrombocytopenia, all secondary to metastatic colon cancer. The patient wi ll likely receive transfusions today with a hemoglobin of 7.7. PLAN: 1. Continue present hyperalimentation formula. It might be easier just to supplement potassium on a n as needed basis instead of putting potassium in the hyperalimentation. 2. Continue antifungal, antibacterial and antiviral agents. 3. Continue to try and match her I's and O's. 4. The patient's jail prognosis is poor. 5. We will continue to monitor patient in light of her need for adjustment of her hyperal on a daily basis. Kyle Brooks MD cc: [phone] TT: 11/01/2016 11:11:24 Confirmation # [id number] Dictation # [id number] karla
[2016-11-01] MEDS: Sucralfate 1 gm/10 ml Oral Susp UD PO SCH ×2 (11:42→18:37)
[2016-11-01] MEDS: Collagenase 250 Units/gm Ointment(30 gm) TOP SCH (11:43)
--- NOTE | 2016-11-01 13:53 | RAD ---
HISTORY: abd.pain, fu obstruction COMPARISON: 10/09/2016 FINDINGS: BOWEL: Examination is limited due to patient's oblique position. There are normal caliber gas filled bowel loops in the abdomen. No evidence of bowel dilatation. BONES: Normal. OTHER FINDINGS: None. IMPRESSION: Limited examination due to oblique patient positioning. Nonspecific bowel gas pattern.
[2016-11-01] MEDS: Acetaminophen 650mg/20.3ml solution UD PO PRN (14:41)
--- NOTE | 2016-11-01 16:04 | PN ---
DATE: 11/01/2016 REASON FOR CONSULTATION AND FOLLOWUP: Sinus tachycardia. BRIEF CLINICAL HISTORY: A 61-year-old female with stage IV colon cancer, colectomy, status post chem o and PICC line, has low-grade fever, UTI, tachycardia and cardiac consult was called. The patient d enies any chest pain, but pain in the abdomen and belly. PHYSICAL EXAMINATION: VITAL SIGNS: Temperature afebrile, heart rate 122, blood pressure 124/74. HEENT: PERRLA. Extraocular muscles intact. NECK: Supple. No carotid bruits. No thyromegaly. CHEST: Clear to auscultation. HEART: S1, S2 regular. ABDOMEN: Soft. EXTREMITIES: Clubbing and cyanosis negative. LABORATORY DATA: Blood workup as follows: WBC ____, hemoglobin ____, hematocrit 22.9, platelet coun t 85. Chemistry shows sodium ____, potassium 4.4, chloride 116, carbon dioxide 17, anion gap of ____ , BUN 74, creatinine 1.5. IMPRESSION: Severe anemia, colon cancer stage IV, pain with metastasis, anemia, sinus tachycardia, m ultifactorial, secondary to underlying condition, leukocytosis, and severe anemia. RECOMMENDATION: Continue beta elena, started Inderal, propranolol 20 mg 3 times a day. The patien t is tolerating. Heart rate is now 110. We will follow with you. Discussed the patient ____ the kim valentin's family. Sherrell Busby MD cc: [phone] TT: 11/01/2016 16:04:12 Confirmation # [id number] Dictation # [id number] karla
--- NOTE | 2016-11-01 19:00 | PN ---
DATE: 11/01/2016 This is the patient's hospital visit on the medical floor. For Dr. Hendricks. SUBJECTIVE: The patient is a 61-year-old female seen for neutropenic sepsis with acute renal failure , which has improved, with the patient known to suffer from stage IV cancer of the colon with rectal bleed, symptomatic anemia, thrombocytopenia. With this, the patient is now for transfusion. Hemoglo bin is 7.7, with her recent sigmoidoscopy showing a necrotic ulcer with stricture at the 10 cm level, with a PICC line placed yesterday by Dr. Shabbir Hackett. PHYSICAL EXAMINATION: VITAL SIGNS: Temperature 97.8, pulse 108, respirations 21, blood pressure 135/71, pulse ox 99%. GENERAL: She appears cachectic and somnolent, but arousable. HEENT: Unremarkable. NECK: Supple. HEART: Tachy rate, regular rhythm. LUNGS: Clear. ABDOMEN: Soft with minimal tenderness to gentle palpation. EXTREMITIES: With +1 edema. NEUROLOGIC: Somnolent but arousable. SKIN: Warm and dry. LABORATORY DATA: The patient did have a flat plate of her abdomen done today, which showed limited e xamination due to oblique patient positioning, nonspecific bowel gas pattern. The patient's labs were done today. White blood cell count of 14.4. Hemoglobin 7.7, down from 8.9 y esterday, with 2 units of packed red blood cells on hold. He will be transfused today. Hematocrit 2 2.9, platelet count 18.9 with a manual of 45,000 with no active bleeding, no petechiae to the oral pa late to inspection. Her chem metabolic panel showed a BUN of 74, creatinine 1.5 with a calcium of 7.7, T-bili of 1.8 with an albumin of 1.6, total protein 4.2. TSH is 0.38. ASSESSMENT: Symptomatic anemia for transfusion, acute renal failure improving, malnutrition on hyper alimentation, mucositis modestly improved, stage IV metastatic carcinoma of the colon with metastasis to the bone, decubitus ulcer of the sacrum, cauda equina syndrome, esophagitis with ulceration, elec trolyte imbalance. PLAN: To transfuse 2 units of packed red blood cells. We will also offer Multi Podus boots or shoes from home to prevent footdrop. The prognosis for this patient is guarded. We will monitor clinical ly and with labs. Tomasz Winters MD cc: [phone] TT: 11/01/2016 18:59:28 Confirmation # [id number] Dictation # [id number] ln
--- NOTE | 2016-11-01 22:20 | PN ---
DATE: 11/01/2016 SUBJECTIVE: The patient seen earlier this morning in room 364, bed 2. She is complaining of being w eak and overall pain. PHYSICAL EXAMINATION: VITAL SIGNS: Temperature is 97, blood pressure is 120/70, respiratory rate of 21, heart rate of 108. HEENT: Unremarkable. NECK: Supple. LUNGS: Have decreased breath sounds. HEART: Normal S1, S2. ABDOMEN: Soft, nontender. LABORATORY DATA: Are noted. White count is down to 14,000, hemoglobin of 7, platelets of 45. BUN o f 74, creatinine of 1.5. Procalcitonin is down to 5.0. Urinalysis is noted. Microbiology reveals C andida albicans in the blood and yeast in the urine. Repeat blood cultures are negative. ASSESSMENT AND PLAN: This is a 61-year-old with sepsis with Susy albicans fungemia secondary to P ort-A-Cath. The patient has also had total parenteral nutrition with a partial small-bowel obstructi on and acute stomatitis and mucositis. The patient was neutropenic from the chemotherapy and current ly on meropenem, Mycamine, and valganciclovir. Because of her Susy albicans fungemia, patient betty uld have an ophthalmology exam. Will continue the present course. The cultures remain negative. Re peat cultures remain negative. May be able to switch to p.o. Diflucan if she is able to take p.o. Overall, prognosis is quite poor. The patient is on valganciclovir and Mycamine and meropenem. Will follow with you. Should have an ophthalmology evaluation because of the Susy albicans in the blo od. Lang Akhtar MD cc: [phone] TT: 11/01/2016 22:19:26 Confirmation # [id number] Dictation # [id number] chastity
--- NOTE | 2016-11-02 00:07 | PN ---
DATE: 11/01/2016 ADDENDUM: This is an addendum to the GI progress report dictated by Yoana Osei APN. PHYSICAL EXAMINTION: ABDOMEN: Still softly distended. Has some mild tenderness present. No bleeding. No significant __ ___. Had episode of small diarrhea before. The ulcer has improved. LABORATORY DATA: The final path report is still pending. PLAN: Would request for an abdominal x-ray. Also, surgical consultation has been requested and eval uated for colostomy. I did discuss with Dr. Mccracken and also Ruthie. Plan is to wait for the p ath to consider colostomy. Thank you very much for allowing us to participate in the care of the patient. Tong Null MD cc: [phone] TT: 11/02/2016 00:07:06 Confirmation # [id number] Dictation # [id number] mark
[2016-11-02] MEDS: Meropenem 1g/NS 100mL IVPB 1 GM/100 ML PIGGYBACK IVPB SCH ×2 (01:09→08:01)
[2016-11-02] MEDS: Morphine 4 mg/ml ISec IV PRN ×7 (01:10→21:49)
[2016-11-02] MEDS: MULTIVITAMIN IV SCH ×2 (01:11→18:25)
[2016-11-02] MEDS: DEXT IV SCH ×2 (01:11→18:25)
[2016-11-02] MEDS: AMINO IV SCH ×2 (01:11→18:25)
[2016-11-02] MEDS: TRACE ELEMENTS IV SCH ×2 (01:11→18:25)
[2016-11-02] MEDS: [UNRECOGNIZED DRUG - OTHER] IV SCH ×2 (01:11→18:25)
[2016-11-02] MEDS: Fat Emulsion 20% IV 250 ML IV SCH ×2 (01:13→18:26)
[2016-11-02 08:39] LABS: ALB/GLOB RATIO 0.6 (1.1-1.8); ALBUMIN 1.6 g/dL (3.0-4.8); CALCIUM 7.7 mg/dL (8.4-10.5); MAGNESIUM 2.1 mg/dL (1.7-2.2)
[2016-11-02 08:49] LABS: BASO # 0.01 K/mm3 (0.0-2.0); BASO % 0.1 % (0.0-3.0); EOS % 0.2 % (1.5-5.0); GRAN # 14.28 (1.4-6.5); GRAN % 95.2 % (50.0-68.0); HEMOGLOBIN 9.9 gm/dL (12.0-16.0); LYMPH # 0.4 (1.2-3.4); LYMPH % 2.9 % (22.0-35.0); MEAN CELL VOLUME 94.3 fL (80.0-105.0); MEAN CORPUSCULAR HEMOGLOBIN 31.4 pg (25.0-35.0); MEAN CORPUSCULAR HGB CONC 33.3 g/dl (31.0-37.0); MONO # 0.2 (0.1-0.6); MONO % 1.6 % (1.0-6.0); PLATELET COUNT 57 10^3/uL (120.0-450.0); RBC 3.15 10^6/uL (3.5-6.1); RED CELL DISTRIBUTION WIDTH 17.8 % (11.5-14.5)
[2016-11-02 10:09] LABS: PLATELET COUNT MANUAL 75 K/mm3 (120-450)
--- NOTE | 2016-11-02 10:12 | PN ---
DATE: 11/02/2016 The patient is in room 364, bed 2. She appears weak, tired. She had an uneventful night. Overall d oing poorly. PHYSICAL EXAMINATION: VITAL SIGNS: Temperature is 98, blood pressure is 130/80, respiratory rate of 20, heart rate of 91. HEENT: Unremarkable. NECK: Supple. LUNGS: Have decreased breath sounds. HEART: Normal S1, S2. ABDOMEN: Soft. LABORATORY DATA: Reveals a white count of 14,000, hemoglobin of 7, platelets of 45. The chemistries reveal a BUN of 74, creatinine of 1.5. The repeat blood cultures are negative, which did have Elle da albicans. Dr. Null's note is reviewed. Dr. Tomasz Winters's note is reviewed. ASSESSMENT AND PLAN: A 61-year-old female who has sepsis with Susy albicans fungemia secondary to Port-A-Cath. The patient had total parenteral nutrition, small-bowel obstruction, acute stomatitis and mucositis, and the patient was neutropenic. Repeat blood cultures are negative. Will discontinu e the Mycamine and use Diflucan p.o. 200 mg daily since the repeat blood cultures are negative and kim valentin is no longer neutropenic. We will also check on the chest x-ray. Last one that was done was o n the ; atelectasis. Will discontinue the meropenem also. Overall prognosis is quite poor for t his patient who is end-stage malignancy. Should consider hospice setting. The patient is also on p. o. valganciclovir. Will follow closely with you. Theoretically, patient should have an ophthalmolog y exam since she had Susy albicans fungemia. Would complete Diflucan 200 mg p.o. once daily x 28 days. Lang Akhtar MD cc: 350 TT: 11/02/2016 09:18:44 Confirmation # [id number] Dictation # [id number] mark
--- NOTE | 2016-11-02 10:12 | PN ---
DATE: 11/01/2016 Seen and examined at the bedside earlier today. Her family was there. The patient complains of abdo angela pain, not really tolerating oral intake. No reports of any bowel movements. No reports of any overt GI bleed. VITAL SIGNS: Temperature was 98.7, blood pressure 167/95, pulse rate 126, respirations 22, 97 nasal cannula. LABORATORY DATA: WBC is 14.4, hemoglobin is 7.7, hematocrit is 22.9, and platelets are 45 to manual is 85. Sodium is 137, K 4.4, BUN 74, creatinine is 1.5, total bilirubin 1.8, AST 19, ALT 29, alkalin e phosphatase is 141. Abdominal x-ray requested this morning was limited due to patient's oblique positioning. There was n onspecific bowel gas pattern, no evidence of bowel dilatation. PHYSICAL EXAMINATION: HEENT: Sclerae are anicteric. NECK: Supple. CARDIAC: S1, S2. LUNGS: With decreased breath sounds at the bases, but positive air entry. ABDOMEN: With bowel sounds and softly distended with diffuse tenderness on palpation. No rebound, g uarding. EXTREMITIES: The patient with upper extremity edema as well as bilateral lower extremity edema. She has the SCD boots on. NEUROLOGIC: The patient is awake, but looks lethargic. 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 She has history of anemia , thrombocytopenia likely secondary to metastatic colon cancer, urinary tract infection, positive E. coli. Now the patient has fungemia with Susy. She also with acute renal failure. She is status post diarrhea and was having gastrointestinal bleed, had endoscopy and a flexible sigmoidoscopy, foun d to have esophageal ulcerations. The patient with stomatitis and ulcerations at the anastomotic are a in her colon. Biopsies were obtained to rule out CMV. The patient is on ganciclovir. PLAN: We are still awaiting for the final pathology, currently on clear liquid. She is going to rec eive blood transfusion. She is on PPN. Continue GI prophylaxis, on IV antibiotics, meropenem and mi cafungin, pain control. The patient is also being followed by renal, oncology and surgery. The antwon ent was seen and case discussed with Dr. Null. Yoana IQBAL cc: [id number] TT: 11/01/2016 16:29:43 Confirmation # [id number] Dictation # [id number] cn
--- NOTE | 2016-11-02 10:27 | CP.PCM.PN ---
<Carlos Feng - Last Filed: 11/02/16 10:24> Subjective - Date & Time of Evaluation Date of Evaluation: 11/02/16 Time of Evaluation: 07:00 - Subjective Subjective: Carlos Feng D.O. PGY-1, General Surgery Progress Note: Dr. Kaykay Devlin. 61 year old female with end stage stage IV colon CA with lower GI bleeding resulting in symptomatic anemia from ulcerated sigmoid mass for which we were consulted. Patient was seen and examined at bedside with surgical team with sister at bedside. Patient is more alert today and seems somewhat more comfortable. Patient had 2 units of PRBC due to continued downtrending H and H and at this time states that she feels "so-so" but has no particular complaints at this time. Denies fevers/chills/N/V/D/C or other complaints. Objective - Vital Signs/Intake and Output Vital Signs (last 24 hours): Temp Pulse Resp BP Pulse Ox 98.4 F 91 H 20 131/81 97 11/02/16 08:30 11/02/16 08:30 11/02/16 08:30 11/02/16 08:30 11/02/16 08:30 Intake and Output: 11/02/16 11/02/16 06:59 18:59 Intake Total 350 Output Total 475 Balance -125 - Medications Medications: Current Medications Acetaminophen (Tylenol 650 Mg Supp) 650 mg RC Q4H PRN PRN Reason: Fever >100.4 F Last Admin: 11/01/16 21:18 Dose: 650 mg Acetaminophen (Tylenol 650mg/20.3ml Solution Ud) 650 mg PO Q4 PRN PRN Reason: Fever >100.4 F Bismuth Subsalicylate (Pepto-Bismol) 262 mg PO BID RODRÍGUEZ Last Admin: 11/01/16 18:39 Dose: Not Given Collagenase (Santyl) 1 gm TOP BID RODRÍGUEZ Last Admin: 11/01/16 11:43 Dose: 1 applic Al Hydrox/Mg Hydrox/Simethicone 30 ml/Diphenhydramine HCl 75 mg/Lidocaine 30 ml 0 ml PO Q2H PRN PRN Reason: Mouth/Throat Pain Last Admin: 10/30/16 11:17 Dose: 30 ml Diphenhydramine HCl (Benadryl) 25 mg IVP Q4H PRN PRN Reason: Allergy symptoms Last Admin: 11/01/16 04:09 Dose: 25 mg Ergocalciferol (Drisdol 50,000 Intl Units Cap) 1 cap PO Q7D [facility] Last Admin: 10/29/16 13:36 Dose: 1 cap Fluconazole (Diflucan) 200 mg PO DAILY [facility] PRN Reason: Protocol Stop: 11/30/16 10:01 Home Med (Home Med) 1 unit PO Q12H PRN PRN Reason: Inflammation Last Admin: 10/18/16 11:03 Dose: 1 unit Chromium/Copper/Manganese/Zinc 1 ml/ Multivitamins/Vitamin C 10 ml/ Amino Acids 2,011 mls @ 83 mls/hr IV .Q24H [facility] Last Admin: 11/02/16 01:11 Dose: 83 mls/hr Fat Emulsion Intravenous (Intralipid 20%) 250 mls @ 21 mls/hr IV 1800 [facility] Last Admin: 11/02/16 01:13 Dose: 21 mls/hr Dextrose (Dextrose 5% In Water 1000 Ml) 1,000 mls @ 50 mls/hr IV .Q20H [facility] Last Admin: 11/01/16 11:42 Dose: 50 mls/hr Metoprolol Tartrate (Lopressor) 5 mg IVP Q6H PRN PRN Reason: Sustained HR > 130 Last Admin: 10/31/16 00:12 Dose: 5 mg Morphine Sulfate (Morphine) 4 mg IV Q3 PRN PRN Reason: Pain, severe (8-10) Last Admin: 11/02/16 08:36 Dose: 4 mg Multi-Ingredient Ointment (Hydrophor Oint) 0 gm TOP Q6H [facility] Last Admin: 11/01/16 18:37 Dose: 1 applic Ondansetron HCl (Zofran Inj) 4 mg IVP Q4H PRN PRN Reason: Nausea/Vomiting Last Admin: 10/29/16 20:46 Dose: 4 mg Pantoprazole Sodium (Protonix Inj) 40 mg IVP DAILY [facility] Last Admin: 11/01/16 14:42 Dose: 40 mg Petrolatum (Desitin Maximum Strength Topical 40% Oint) 1 gm TOP Q4H PRN PRN Reason: Rash Last Admin: 10/23/16 22:39 Dose: 1 applic Propranolol HCl (Inderal) 20 mg PO TID [facility] Last Admin: 11/01/16 18:38 Dose: 20 mg Sucralfate (Carafate Oral Susp) 1 gm PO BID [facility] Last Admin: 11/01/16 18:37 Dose: 1 gm Throat Lozenges (Cepastat) 1 francis MT Q2H PRN PRN Reason: Sore Throat Last Admin: 10/30/16 11:17 Dose: 1 francis Valganciclovir (Valcyte) 900 mg PO DAILY [facility] Last Admin: 11/01/16 14:42 Dose: 900 mg - Labs Labs: 11/02/16 07:00 11/02/16 08:20 PT 13.6 Seconds (9.9-11.8) H 10/26/16 06:24 INR 1.26 (0.93-1.08) H 10/26/16 06:24 APTT 33.1 Seconds (23.7-30.8) H 10/26/16 06:24 - Constitutional Appears: No Acute Distress, Chronically Ill female - Head Exam Head Exam: ATRAUMATIC, NORMOCEPHALIC - Eye Exam Eye Exam: EOMI, Normal appearance - ENT Exam ENT Exam: Mucous Membranes are [place] and Moist - Neck Exam Additional comments: soft, supple - Respiratory Exam Respiratory Exam: absent: Accessory Muscle Use, Respiratory Distress - Cardiovascular Exam Cardiovascular Exam: Tachycardic, +S1, +S2 - GI/Abdominal Exam GI & Abdominal Exam: Soft, Normal Bowel Sounds. absent: Distended, Guarding, Tenderness - Extremities Exam Extremities Exam: Weeping Pedal Edema - Skin Additional comments: warm, dry, stage 2 sacral decubitus ulcer Assessment and Plan - Assessment and Plan (Free Text) Assessment: 61 year old female with end stage stage IV colon CA with lower GI bleeding resulting in symptomatic anemia from ulcerated sigmoid mass for which we were consulted. Plan: Medical team managing her multiple current medical problems as she is end stage colon CA with a guarded prognosis S/p 2 more units of PRBCs Patient might need a colostomy for colonic strictures and ulcerations seen by GI on flex sig and she and the family understand this is the cause of her bleeding and anemia, so we will continue to follow her condition closely Will discuss with attending physician. Thank you for the pleasure of participating in the care of this interesting patient. <Yoan Mccracken - Last Filed: 12/02/16 23:48> Objective - Vital Signs/Intake and Output Vital Signs (last 24 hours): Temp Pulse Resp BP Pulse Ox 97.8 F 101 H 18 170/89 H 100 12/02/16 16:00 12/02/16 16:00 12/02/16 16:00 12/02/16 16:00 12/02/16 16:00 Intake and Output: 12/02/16 12/03/16 18:59 06:59 Intake Total 120 Output Total 450 600 Balance -450 -480 - Medications Medications: Current Medications Acetaminophen (Tylenol 650 Mg Supp) 650 mg RC Q4H PRN PRN Reason: Fever >100.4 F Last Admin: 11/01/16 21:18 Dose: 650 mg Al Hydrox/Mg Hydrox/Simethicone 30 ml/Diphenhydramine HCl 75 mg/Lidocaine 30 ml 0 ml PO QID [facility] Last Admin: 12/02/16 21:01 Dose: Not Given Diphenhydramine HCl (Benadryl) 50 mg IVP HS PRN PRN Reason: Insomnia Last Admin: 11/27/16 01:00 Dose: 50 mg Ergocalciferol (Drisdol 50,000 Intl Units Cap) 1 cap PO Q7D [facility] Last Admin: 11/19/16 18:04 Dose: Not Given Ferrous Sulfate (Feosol) 324 mg PO TID [facility] Last Admin: 12/02/16 18:16 Dose: Not Given Fluconazole (Diflucan) 200 mg PO DAILY [facility] PRN Reason: Protocol Stop: 12/12/16 10:01 Last Admin: 12/02/16 09:44 Dose: Not Given Home Med (Home Med) 1 unit PO Q12H PRN PRN Reason: Inflammation Last Admin: 10/18/16 11:03 Dose: 1 unit Hydralazine HCl (Apresoline) 10 mg IVP Q4H PRN PRN Reason: Systolic Blood Pressure Hydromorphone HCl (Dilaudid) 1 mg IVP Q1H PRN PRN Reason: Pain, moderate (4-7) Last Admin: 12/02/16 21:06 Dose: 1 mg Levetiracetam (Keppra 500mg Ivpb) 500 mg in 100 mls @ 400 mls/hr IV Q12 [facility] Last Admin: 12/02/16 21:06 Dose: 400 mls/hr Potassium Chloride/Dextrose (Potassium Chl 40 Meq In D5w) 1,000 mls @ 60 mls/ hr IV .[id number] [facility] Last Admin: 12/02/16 18:17 Dose: Not Given Magnesium Hydroxide (Milk Of Magnesia) 30 ml PO DAILY PRN PRN Reason: skin irritation Last Admin: 12/02/16 14:09 Dose: 30 ml Magnesium Oxide (Mag-Ox) 400 mg PO BID [facility] Last Admin: 12/02/16 18:16 Dose: Not Given Multi-Ingredient Ointment (Hydrophor Oint) 0 gm TOP Q6H PRN PRN Reason: Dry lip Multivitamins (Thera Tab) 1 tab PO 0800 [facility] Last Admin: 12/02/16 08:10 Dose: Not Given Propranolol HCl (Inderal La) 120 mg PO DAILY [facility] Last Admin: 12/02/16 09:44 Dose: Not Given Sucralfate (Carafate Oral Susp) 1 gm PO BID [facility] Last Admin: 12/02/16 18:16 Dose: Not Given - Labs Labs: 12/02/16 06:00 12/02/16 06:00 PT 12.9 Seconds (9.9-11.8) H 12/02/16 06:00 INR 1.19 (0.93-1.08) H 12/02/16 06:00 APTT 32.9 Seconds (23.7-30.8) H 12/02/16 06:00 Assessment and Plan - Assessment and Plan (Free Text) Plan: Patient was seen and examined by me. I agree with assessment and plan as per resident's note.
[2016-11-02] MEDS: Petrolatum-Mineral Oil Oint (100gm) TOP SCH ×3 (10:37→21:25)
[2016-11-02] MEDS: Sucralfate 1 gm/10 ml Oral Susp UD PO SCH ×2 (10:40→18:10)
[2016-11-02] MEDS ORDERED: Sucralfate 1 gm/10 ml Oral Susp UD ONE (10:40)
[2016-11-02] MEDS: Bismuth Subsalicylate 262 mg/15 ml Sus (240 ml) PO SCH ×2 (10:50→18:30)
[2016-11-02] MEDS: Collagenase 250 Units/gm Ointment(30 gm) TOP SCH ×2 (10:51→18:05)
[2016-11-02] MEDS ORDERED: Morphine 4 mg/ml ISec ONE (11:41)
--- NOTE | 2016-11-02 13:12 | PN ---
DATE: 11/02/2016 This is the patient's hospital visit on the medical floor. For Dr. Hendricks. SUBJECTIVE: The patient is a 61-year-old female, lying somnolent, but arousable in bed with family a t the bedside, known to suffer from stage IV CA of the colon with rectal bleed, known to have a stric ture at 10 cm after recent evaluation by Dr. Null showing a necrotic ulcer with oozing and bleedi ng from this area, for which she was transfused blood periodically in anticipation of procedure in e near future. With this, the patient has otherwise had a PICC line placed and received 2 units of p acked red blood cells with good effect yesterday. She is otherwise reporting that her pain medicines help. However, she has difficulty swallowing and we will give liquids or crush the tablets as Dr. Flory ramsey now reports that the patient will need to be on oral Diflucan 200 mg once a day for 28 days for her candidal fungemia. We also will ask for a consult with Dr. Greenberg, ophthalmology, due to c andidal fungemia. She is otherwise in no acute distress. OBJECTIVE AND PHYSICAL EXAMINATION: VITAL SIGNS: Temperature 98.4, pulse 91, respirations 20, blood pressure 131/81, pulse ox 97%. HEENT: Unremarkable. Inspection of the oropharynx shows minimal erythema with the patient appearing lethargic. NECK: Supple. HEART: Tachy rate, regular rhythm. LUNGS: Clear. ABDOMEN: Minimally distended with minimal tenderness to gentle palpation to mid and lower epigastriu m. NEUROLOGIC: She is somnolent, but arousable. SKIN: Shows ecchymotic changes from previous phlebotomy attempts on her extremities with +1 edema of her arms and legs with a sacral decubitus not inspected at this time, inspected by Dr. Jeffers, surg reba, earlier today. LABORATORIES: Done to include a white blood cell count today of 15.0, hemoglobin is 9.9 up from 7.7 yesterday, hematocrit of 29.7, platelet count of 57,000 with manual count of 75,000. Her chem metabo lic panel shows a BUN of 89 with a creatinine of 1.5 with a nonfasting glucose of 123, calcium 7.7, t otal protein 4.0 with an albumin of 1.6, T-bili of 1.9. ASSESSMENT: For this patient is that of symptomatic anemia, status post transfusion, acute renal john lure, improving, malnutrition with patient continuing hyperalimentation. She suffers from stage IV m etastatic cancer of the colon with mets to the bone, decubitus ulcer of the sacrum, cauda equina synd eloy, esophagitis with ulceration with electrolyte imbalance. PLAN: For this patient is to consider a surgical procedure with colostomy for the necrotic ulcer str icture area 10 cm in sigmoid colon as per Dr. Null's evaluation with continuation of her medical regimen including Diflucan on a daily basis for 28 days with analgesics for her pain and hyperal for nutrition. We will also consider albumin and Lasix as per Dr. Hendricks should it be indicated. Tomasz Winters MD cc: [phone] TT: 11/02/2016 13:11:29 Confirmation # [id number] Dictation # [id number]
[2016-11-02] MEDS ORDERED: AMINO IV SCH (14:00)
[2016-11-02] MEDS ORDERED: DEXT IV SCH (14:00)
[2016-11-02] MEDS ORDERED: TRACE ELEMENTS IV SCH (14:00)
[2016-11-02] MEDS ORDERED: [UNRECOGNIZED DRUG - OTHER] IV SCH (14:00)
[2016-11-02] MEDS ORDERED: MULTIVITAMIN IV SCH (14:00)
[2016-11-02] MEDS ORDERED: Albumin Human 25% (25 gm/100 ml) IV ONE (14:30)
--- NOTE | 2016-11-02 14:30 | PN ---
DATE: 11/02/2016 SUBJECTIVE: The patient is currently seen on 3R lying in bed. Hyperalimentation is infusing. She r emains on antibiotic therapy, antifungal therapy and antiviral therapy. She has improving stomatitis and mucositis. The patient has a necrotic lesion in her sigmoid colon and there is a consideration for a possible colostomy. The patient has a slowly rising BUN and creatinine on hyperalimentation. She continues to have diarrhea and her metabolic acidosis is worsening. Of note, she has a non-anion gap metabolic acidosis which is consistent with her diarrhea. MEDICATIONS: Medication list reviewed. The patient is currently on Benadryl, Carafate, hyperaliment ation, Desitin, Diflucan, vitamin D, triamcinolone dental paste, Hydrophor, Inderal, Lopressor, morph ine p.r.n., Pepto-Bismol, Protonix, Santyl, Tylenol p.r.n., Valcyte, and Zofran p.r.n. OBJECTIVE: INTAKE AND OUTPUT: Intake 675, output 925. This is likely incomplete. VITAL SIGNS: Blood pressure 131/81, pulse of 91, temperature 98.4, respiratory rate of 20. HEENT: Normocephalic, atraumatic. Conjunctivae are pale. Sclerae are nonicteric. NECK: Supple, no neck vein distention. CHEST: Clear to auscultation and percussion. CARDIOVASCULAR: S1, S2 are normal. No murmurs, rubs or gallops noted. ABDOMEN: Soft. Bowel sounds normal. Diffuse tenderness on palpation. No rebound, no guarding, no masses. EXTREMITIES: Elevated, show no edema in her feet. She does have 1+ to 2+ dependent lower extremity edema in her thighs. Arms are puffy. Over the sacral area, she has stage II sacral decubiti. LABORATORY DATA AND IMAGING: CBC: White blood cell count 15.0, hemoglobin 9.9, platelet count 57,00 0. Manual platelet count is 75,000. Chemistries: Sodium 135, potassium 4.2, chloride 116 with a CO 2 of 13. Anion gap 10. BUN 89 with a creatinine of 1.5. Glucose 123, calcium 7.7 with an albumin o f 1.6. Phosphorus level was 4.9. Magnesium is 2.1. Liver enzymes are normal with a bilirubin of 1. 9. Microbiology: Blood cultures are positive for Susy albicans. ASSESSMENT: 1. Acute renal failure, prerenal azotemia, worsening BUN. This is in the setting of hyperalimentati on. The patient continues to have diarrhea, though she states it has been better the last 12 hours. It is difficult to keep patient in fluid balance without excessive amounts of IV fluid hydration in light of her diarrhea. The patient remains edematous. 2. Stomatitis, mucositis, fungemia with Susy, sacral decubiti. The patient remains on empiric an tibiotic, antifungal and antiviral therapy. 3. Electrolyte abnormalities in the setting of hyperalimentation. Hyperalimentation formula has bee n adjusted by me almost daily over the last several weeks. Presently, she is receiving no potassium and the potassium level appears to be normal. This is likely in the setting of worsening renal katrina eters. The patient remains severely acidotic. She has a non-anion gap metabolic acidosis which is l ikely consistent with gastrointestinal losses and diarrhea. She is receiving acetate in the hyperali mentation. I will increase the sodium acetate in her hyperalimentation to try and compensate for the bicarbonate losses from the gut. 4. Status post Escherichia coli urinary tract infection. 5. Stage IV metastatic colon cancer with bone metastases. The patient is being followed by oncology . 6. History of anemia, thrombocytopenia, all secondary to metastatic cancer. The patient receives tr ansfusions on a p.r.n. basis. Her hemoglobin is up to 9.9 today. PLAN: 1. Continue hyperalimentation formula adjusted. 2. I will not add potassium to the hyperalimentation, but will supplement that on a p.r.n. basis. 3. Continue antifungal, antibacterial and antiviral agents. 4. Attempt to match her I's and O's. 5. The patient's halfway prognosis unfortunately is poor. 6. The patient being evaluated for a possible colostomy in light of the necrotic, stenotic area in h er sigmoid colon. Kyle Brooks MD cc: [phone] TT: 11/02/2016 14:29:45 Confirmation # [id number] Dictation # [id number] tn
--- NOTE | 2016-11-02 16:47 | PN ---
DATE: 11/02/2016 HISTORY OF PRESENT ILLNESS: Seen and examined at the bedside earlier today. The patient's family is there. The patient continues to have abdominal discomfort in the lower mid abdomen. The patient rep orts she had some loose stool. No reports of bleeding and again unable to tolerate much oral intake. VITAL SIGNS: Temperature 98.4, blood pressure 131/81, pulse 91, respirations 20, 97 on room air. LABORATORY DATA: WBC is 15.0, H is 9.9 and 29.7, platelets is 57, 75. She got blood yesterday . Chem: Sodium is 135, K 4.2, BUN is 89, creatinine is 1.5, total bilirubin is 1.9, AST 17, ALT 30, alkaline phosphatase is 116. She was sent for abdominal x-ray yesterday, no acute findings. PHYSICAL EXAMINATION: HEENT: Sclera is anicteric. NECK: Supple. CARDIAC: S1, S2. LUNGS: Decreased breath sounds at the bases, but good air entry, no rales or wheeze. ABDOMEN: With bowel sounds, soft, distended with tenderness to the mid lower abdomen. NEUROLOGIC: The patient is lethargic, but awake at times, but easily arousable. ASSESSMENT: This is a 61-year-old female with stage IV cancer of the colon with mets to the bone. S he also has symptomatic anemia status post multiple transfusions, acute renal failure, esophagitis wi th ulcerations, decubitus ulcer, diarrhea, status post 10 doses of Sandostatin and codeine p.r.n. Th e patient has fungemia with Susy. PLAN: Continue her liquids as tolerated. She is getting PPN, on PPI and Carafate and IV antibiotic s, and oral Diflucan and speak to Pathology regarding biopsies. The patient was seen and discu ssed with Dr. Null. Yoana IQBAL cc: [phone] TT: 11/02/2016 15:55:45 Confirmation # [id number] Dictation # [id number] dn
--- NOTE | 2016-11-02 16:47 | CON ---
DATE: 11/02/2016 HISTORY OF PRESENT ILLNESS: The patient is a 61-year-old white female who was seen in consultation f or swelling of both eyes. She is in the hospital for a diagnosis of Susy. PHYSICAL EXAMINATION: VITAL SIGNS: Her visual acuity is 20/20 in both eyes. Conjunctiva is edematous in both eyes with mi ld conjunctivitis. Corneal exam is normal. Lens exam is normal. Dilated fundus exam is normal. ASSESSMENT: The patient has conjunctivitis in both eyes. I put her on TobraDex 1 drop both eyes 4 t imes a day. Shay Greenberg MD cc: [phone] TT: 11/02/2016 16:00:23 Confirmation # [id number] Dictation # [id number] mn
[2016-11-02] MEDS ORDERED: Albumin Human 25% (12.5 gm/50 ml) IV SCH (17:00)
[2016-11-02] MEDS: Aluminum Hydroxide/Magnesium 30 ML, DiphenhydrAMINE 75 MG, Lidocaine 2% Viscous 30 ML PO PRN (18:05)
[2016-11-02] MEDS: Tobramycin 0.3% OPHT SOLN OU SCH ×2 (18:05→23:00)
--- NOTE | 2016-11-02 19:32 | PN ---
DATE: 11/02/2016 REASON FOR CONSULTATION AND FOLLOWUP: Sinus tachycardia. BRIEF CLINICAL HISTORY: A 61-year-old female with past medical history significant for stage IV canc er, colectomy, status post chemo, PICC line, low grade fever, UTI, tachycardia, cardiac consult was c alled for tachycardia. Denies any chest pain, shortness of breath, any palpitation. The patient sta rted propranolol, heart rate improved. PHYSICAL EXAMINATION: VITAL SIGNS: Temperature afebrile, heart rate 97, blood pressure 149/99. HEENT: PERRLA. Extraocular muscles intact. NECK: Supple. No carotid bruits. No thyromegaly. CHEST: Clear to auscultation. HEART: S1, S2 regular. ABDOMEN: Soft. EXTREMITIES: Clubbing and cyanosis negative. BLOOD WORKUP: As follows: WBC ____, hemoglobin ____, hematocrit ____, platelet count 75. Chemistry shows sodium 134, potassium 4.2, chloride 116, carbon dioxide 30, anion gap of ____, creatinine 1.5. IMPRESSION: Renal insufficiency, acute kidney injury, protein-calorie malnutrition, severe, which wa s present on admission, anemia, colon cancer with metastasis, waiting for possible colostomy to relie ve obstruction, tachycardia, multifactorial, secondary to low grade fever, leukocytosis, severe anemi a. RECOMMENDATION: Continue propranolol, now is 20 mg 3 times a day. After the last dose, will change to long-acting. We will change to propranolol 80 mg tomorrow after today's last dose 20 t.i.d. Will f louis with you. Thank you, Dr. Hendricks, for providing the opportunity in taking care of the patient. Sherrell Busby MD cc: [phone] TT: 11/02/2016 19:31:26 Confirmation # [id number] Dictation # [id number] karla
[2016-11-03] MEDS: DiphenhydrAMINE 50 mg/ml Inj IVP PRN (00:54)
[2016-11-03] MEDS: Petrolatum-Mineral Oil Oint (100gm) TOP SCH ×4 (03:00→22:46)
[2016-11-03] MEDS: Morphine 4 mg/ml ISec IV PRN ×3 (05:59→12:13)
--- NOTE | 2016-11-03 07:11 | CP.PCM.PN ---
Subjective - Date & Time of Evaluation Date of Evaluation: 11/03/16 Time of Evaluation: 05:20 - Subjective Subjective: Patient seen and examined this AM. NAEO. Patient reports abdominal pain but denies any nausea or vomiting, fevers or chills Objective - Vital Signs/Intake and Output Vital Signs (last 24 hours): Temp Pulse Resp BP Pulse Ox 97.6 F 104 H 22 163/95 H 97 11/03/16 00:37 11/03/16 00:37 11/03/16 00:37 11/03/16 00:37 11/03/16 00:37 Intake and Output: 11/03/16 11/03/16 06:59 18:59 Intake Total 120 Output Total 900 Balance -780 - Medications Medications: Current Medications Acetaminophen (Tylenol 650 Mg Supp) 650 mg RC Q4H PRN PRN Reason: Fever >100.4 F Last Admin: 11/01/16 21:18 Dose: 650 mg Acetaminophen (Tylenol 650mg/20.3ml Solution Ud) 650 mg PO Q4 PRN PRN Reason: Fever >100.4 F Albumin Human (Albumin Human 25% (25 Gm/100 Ml)) 25 gm IV DAILY [facility] Stop: 11/04/16 10:01 Bismuth Subsalicylate (Pepto-Bismol) 262 mg PO BID [facility] Last Admin: 11/02/16 18:30 Dose: 262 mg Collagenase (Santyl) 1 gm TOP BID [facility] Last Admin: 11/02/16 18:05 Dose: 1 applic Al Hydrox/Mg Hydrox/Simethicone 30 ml/Diphenhydramine HCl 75 mg/Lidocaine 30 ml 0 ml PO Q2H PRN PRN Reason: Mouth/Throat Pain Last Admin: 11/02/16 18:05 Dose: 1 ml Diphenhydramine HCl (Benadryl) 25 mg IVP Q4H PRN PRN Reason: Allergy symptoms Last Admin: 11/03/16 00:54 Dose: 25 mg Ergocalciferol (Drisdol 50,000 Intl Units Cap) 1 cap PO Q7D [facility] Last Admin: 10/29/16 13:36 Dose: 1 cap Fluconazole (Diflucan) 200 mg PO DAILY [facility] PRN Reason: Protocol Stop: 11/30/16 10:01 Last Admin: 11/02/16 10:38 Dose: 200 mg Furosemide (Lasix) 20 mg IVP DAILY [facility] Stop: 11/04/16 18:00 Last Admin: 11/02/16 18:32 Dose: 20 mg Home Med (Home Med) 1 unit PO Q12H PRN PRN Reason: Inflammation Last Admin: 10/18/16 11:03 Dose: 1 unit Dextrose (Dextrose 5% In Water 1000 Ml) 1,000 mls @ 50 mls/hr IV .Q20H [facility] Last Admin: 11/01/16 11:42 Dose: 50 mls/hr Fat Emulsion Intravenous (Intralipid 20%) 250 mls @ 21 mls/hr IV 1800 [facility] Stop: 11/05/16 17:59 Last Admin: 11/02/16 18:26 Dose: 21 mls/hr Chromium/Copper/Manganese/Zinc 1 ml/ Multivitamins/Vitamin C 10 ml/ Amino Acids 2,011 mls @ 83 mls/hr IV .Q24H [facility] Stop: 11/05/16 17:59 Last Admin: 11/02/16 18:25 Dose: 83 mls/hr Metoprolol Tartrate (Lopressor) 5 mg IVP Q6H PRN PRN Reason: Sustained HR > 130 Last Admin: 10/31/16 00:12 Dose: 5 mg Morphine Sulfate (Morphine) 4 mg IV Q3 PRN PRN Reason: Pain, severe (8-10) Last Admin: 11/03/16 05:59 Dose: 4 mg Multi-Ingredient Ointment (Hydrophor Oint) 0 gm TOP Q6H [facility] Last Admin: 11/03/16 03:00 Dose: 1 applic Ondansetron HCl (Zofran Inj) 4 mg IVP Q4H PRN PRN Reason: Nausea/Vomiting Last Admin: 10/29/16 20:46 Dose: 4 mg Pantoprazole Sodium (Protonix Inj) 40 mg IVP DAILY [facility] Last Admin: 11/02/16 10:36 Dose: 40 mg Petrolatum (Desitin Maximum Strength Topical 40% Oint) 1 gm TOP Q4H PRN PRN Reason: Rash Last Admin: 10/23/16 22:39 Dose: 1 applic Propranolol HCl (Inderal La) 80 mg PO DAILY [facility] Sucralfate (Carafate Oral Susp) 1 gm PO BID [facility] Last Admin: 06/23/17 18:10 Dose: 1 gm Tobramycin Sulfate (Tobrex 0.3% Ophth Soln) 1 drop OU QID [facility] Last Admin: 11/02/16 23:00 Dose: 1 drop Valganciclovir (Valcyte) 900 mg PO DAILY [facility] Last Admin: 11/02/16 10:37 Dose: 900 mg - Labs Labs: 11/02/16 07:00 11/02/16 08:20 PT 13.6 Seconds (9.9-11.8) H 10/26/16 06:24 INR 1.26 (0.93-1.08) H 10/26/16 06:24 APTT 33.1 Seconds (23.7-30.8) H 10/26/16 06:24 - Constitutional Appears: Older Than Stated Age, Chronically Ill - Head Exam Head Exam: ATRAUMATIC, NORMOCEPHALIC - ENT Exam ENT Exam: Mucous Membranes Moist, Normal Oropharynx - Respiratory Exam Respiratory Exam: NORMAL BREATHING PATTERN. absent: Accessory Muscle Use, Respiratory Distress - Cardiovascular Exam Cardiovascular Exam: RRR - GI/Abdominal Exam GI & Abdominal Exam: Soft, Tenderness (diffuse tenderness worst in the RUQ). absent: Distended - Extremities Exam Extremities Exam: absent: Calf Tenderness, Pedal Edema, Tenderness - Neurological Exam Neurological Exam: Awake, Oriented x3 - Psychiatric Exam Psychiatric exam: Flat Affect, Normal Mood - Skin Skin Exam: Dry, Normal Color, Warm Assessment and Plan - Assessment and Plan (Free Text) Assessment: 61 year old female with end stage stage IV colon CA with lower GI bleeding resulting in symptomatic anemia from ulcerated sigmoid mass for which we were consulted. Pathology from esophageal biopsy showed severely ulcerated tissue with rare fungal tissues Plan: Follow up CMV testing on esophageal biopsy F/U AM CBC Patient might need a colostomy for colonic strictures and ulcerations to control bleeding. 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 Zeyad Suarez, PGy1
[2016-11-03 07:27] LABS: ALB/GLOB RATIO 0.6 (1.1-1.8); ALBUMIN 1.8 g/dL (3.0-4.8); CALCIUM 7.9 mg/dL (8.4-10.5)
[2016-11-03 08:19] LABS: BASO # 0.02 K/mm3 (0.0-2.0); BASO % 0.1 % (0.0-3.0); EOS # 0.2 (0.0-0.7); EOS % 1.3 % (1.5-5.0); GRAN # 15.31 (1.4-6.5); GRAN % 92.8 % (50.0-68.0); HEMOGLOBIN 11.1 gm/dL (12.0-16.0); LYMPH # 0.6 (1.2-3.4); LYMPH % 3.6 % (22.0-35.0); MEAN CELL VOLUME 87.9 fL (80.0-105.0); MEAN CORPUSCULAR HEMOGLOBIN 30.4 pg (25.0-35.0); MEAN CORPUSCULAR HGB CONC 34.6 g/dl (31.0-37.0); MONO # 0.4 (0.1-0.6); MONO % 2.2 % (1.0-6.0); PLATELET COUNT 48 10^3/uL (120.0-450.0); RBC 3.65 10^6/uL (3.5-6.1); WHITE BLOOD COUNT 16.5 10^3/ul (4.5-11.0)
--- NOTE | 2016-11-03 08:22 | PN ---
DATE: 11/02/2016 ADDENDUM This is an addendum to the GI progress report dictated by Yoana Osei APN. A detailed discussion had today, discussed with the patient's family. The patient still complains of abdominal discomfort. PHYSICAL EXAMINATION: ABDOMEN: Tenderness. Abdomen obese. Preliminary path report of the biopsy is negative for CMV. We will discuss with Dr. Mccracken, surgeon, regarding the colostomy. Thank you very much for allowing us to participate in the care of the patient. Tong Null MD cc: [id number] TT: 11/03/2016 08:21:51 Confirmation # [id number] Dictation # [id number] tn MTDD
[2016-11-03 08:47] LABS: PLATELET COUNT MANUAL 60 K/mm3 (120-450)
[2016-11-03] MEDS: Sucralfate 1 gm/10 ml Oral Susp UD PO SCH ×2 (09:34→17:50)
[2016-11-03] MEDS: Collagenase 250 Units/gm Ointment(30 gm) TOP SCH ×2 (09:36→18:07)
[2016-11-03] MEDS: Tobramycin 0.3% OPHT SOLN OU SCH ×4 (09:37→22:46)
[2016-11-03] MEDS ORDERED: Propranolol 80 mg ER Cap PO SCH (10:00)
[2016-11-03] MEDS: Albumin Human 25% (25 gm/100 ml) IV SCH (11:24)
[2016-11-03] MEDS: Bismuth Subsalicylate 262 mg/15 ml Sus (240 ml) PO SCH ×2 (11:25→18:07)
[2016-11-03] MEDS ORDERED: Morphine 4 mg/ml ISec IV PRN (12:30)
[2016-11-03] MEDS ORDERED: Albumin Human 25% (12.5 gm/50 ml) IV ONE (12:55)
[2016-11-03] MEDS ORDERED: HYDROmorphone 1 mg/ml PCA 25 ML IV PRN (13:59)
[2016-11-03] MEDS ORDERED: HYDROmorphone 0.5 mg/0.5 ml ISec IVP PRN (14:24)
--- NOTE | 2016-11-03 16:47 | PN ---
DATE: 11/03/[address] Hendricks. SUBJECTIVE: The patient is a 61-year-old female, seen lying somnolent, but arousable in bed with daisy malloy at the bedside, known to suffer from stage IV CA of the colon with rectal bleed, noted to have st ricture at 10 cm after recent evaluation by Dr. Null showing necrotic ulcer with oozing and bleed ing from that area, with recent transfusion with good effect. The patient is now status post PICC li ne with the patient's swallowing continued to have difficulty with hyperal continuing. She is also s tatus for this with Dr. Greenberg as per Dr. Akhtar's recommendations due to candidal fungemia with the patient complaining that her discomfort, cramping type pain persists to the low abdomen. The kim valentin is also status post evaluation by Dr. Mccracken, surgery, Dr. Nlul with considerations fo r possible surgery with colostomy in the near future as indicated. PHYSICAL EXAMINATION: VITAL SIGNS: Temperature 98.6, pulse 100, respirations 20, blood pressure 150/94, pulse ox 92%. GENERAL: She is lethargic, but arousable. HEENT: Unremarkable. Tongue is moist and midline. NECK: Supple. HEART: Tachy rate, regular rhythm. LUNGS: Clear. ABDOMEN: Minimally distended with tenderness to gentle palpation mid lower epigastrium. SKIN: Warm, dry and clear. NEUROLOGIC: Awake and alert with multi podus boots on her feet to prevent foot drop. EXTREMITIES: With +1 edema of her extremities bilateral arms and feet. She also has a decubitus ulc er of the sacrum. LABORATORY DATA: The patient's labs were done today, white blood cell count of 16.5, hemoglobin 11.1 , hematocrit of 32.1, platelet count of 48,000, a manual 60,000. Her chem metabolic panel shows a BU N of 101 with a creatinine of 1.5, calcium 7.9, total bilirubin of 2.9, total protein of 4.6. The patient's most recent labs showed a throat culture showing ____ beta strep group A isolated. A w ound culture was significant for Susy albicans; however, her blood cultures have been negative, 2 sets done after a positive finding on 10/28. She continues antifungal medication as per Dr. Akhtar. The patient is also status post visit wit h Dr. Shay Greenberg ophthalmology, for her candidal fungemia. Dr. Landa comments that she has conj unctivitis of both eyes with TobraDex recommended. ASSESSMENT: Stage IV cancer of the colon with rectal bleed, symptomatic anemia, thrombocytopenia wit h no active bleeding at present, necrotic ulcer with stricture 10 cm level on recent sigmoidoscopy, a cute renal failure history, neutropenic sepsis history, malnutrition, intractable pain of cancer, can didal fungemia. PLAN: After conversation with Dr. Null, Dr. Mccracken, Dr. Akhtar, Dr. Hendricks and family members plan is to consider a palliative procedure for quality of life with a colostomy with continua tion of present medical regimen with antifungals, along with analgesics for her pain and nutritional support in the interim. Prognosis for this patient is guarded. Tomasz Winters MD cc: [phone] TT: 11/03/2016 16:46:35 Confirmation # [id number] Dictation # [id number] jn
[2016-11-03] MEDS: Fat Emulsion 20% IV 250 ML IV SCH (17:51)
[2016-11-03] MEDS: DEXT IV SCH (17:51)
[2016-11-03] MEDS: AMINO IV SCH (17:51)
[2016-11-03] MEDS: TRACE ELEMENTS IV SCH (17:51)
[2016-11-03] MEDS: [UNRECOGNIZED DRUG - OTHER] IV SCH (17:51)
[2016-11-03] MEDS: MULTIVITAMIN IV SCH (17:51)
--- NOTE | 2016-11-03 18:17 | PN ---
DATE: 11/03/2016 The patient was seen in room 364, bed 2, earlier this morning. She appears weak. No fevers have bee n documented. Overall, she is in poor condition, chronically ill, debilitated. PHYSICAL EXAMINATION: VITAL SIGNS: Temperature of 98.6, pulse of 119, respiratory rate of 20, blood pressure 152/94. HEENT: Unremarkable. NECK: Supple. LUNGS: Have decreased breath sounds. HEART: Normal S1, S2. ABDOMEN: Soft. LABORATORY DATA: Reveals a white count of 16,000, hemoglobin 11 and platelets of 48. Chemistries ar e noted. BUN of 101, creatinine is 1.5. The LFTs are normal. Urinalysis is noted. Microbiology is reviewed. The patient did have Susy albicans in the blood cultures from 10/28. Repeat blood cul tures from 10/30, no growth at 3 days. The patient had Susy albicans in the urine also in additio n to the sacrum. Review of the orders reveals the patient to be on fluconazole and valganciclovir. ASSESSMENT AND PLAN: This is a 61-year-old female with sepsis with Susy albicans fungemia with a Port-A-Cath secondary to urine, Susy albicans; on total parenteral nutrition, small-bowel obstruct ion, stomatitis and mucositis. The patient was neutropenic and currently on Diflucan. Should have a n ophthalmology exam and should consider a hospice setting for this patient and the patient has colon cancer, stage IV, with metastases to the bone. Dr. Jeffers's note from today is reviewed. Overall prognosis is quite poor. Dr. Shay Greenberg's consultation is noted. Lang Akhtar MD cc: [phone] TT: 11/03/2016 18:16:45 Confirmation # [id number] Dictation # [id number] chastity
[2016-11-03] MEDS: HYDROmorphone 1 mg/ml ISec IVP PRN (20:10)
[2016-11-03] MEDS: Aluminum Hydroxide/Magnesium 30 ML, DiphenhydrAMINE 75 MG, Lidocaine 2% Viscous 30 ML PO PRN (22:47)
[2016-11-04 06:25] LABS: ALB/GLOB RATIO 0.8 (1.1-1.8); ALBUMIN 1.9 g/dL (3.0-4.8); CALCIUM 7.5 mg/dL (8.4-10.5); MAGNESIUM 1.7 mg/dL (1.7-2.2)
[2016-11-04 08:27] LABS: BASO # 0.01 K/mm3 (0.0-2.0); BASO % 0.1 % (0.0-3.0); EOS # 0.2 (0.0-0.7); EOS % 1.3 % (1.5-5.0); GRAN # 12.32 (1.4-6.5); GRAN % 92.5 % (50.0-68.0); HEMOGLOBIN 9.1 gm/dL (12.0-16.0); LYMPH # 0.5 (1.2-3.4); LYMPH % 4.1 % (22.0-35.0); MEAN CELL VOLUME 87.9 fL (80.0-105.0); MEAN CORPUSCULAR HEMOGLOBIN 29.8 pg (25.0-35.0); MONO # 0.3 (0.1-0.6); PLATELET COUNT 47 10^3/uL (120.0-450.0); RBC 3.05 10^6/uL (3.5-6.1); RED CELL DISTRIBUTION WIDTH 17.2 % (11.5-14.5); WHITE BLOOD COUNT 13.3 10^3/ul (4.5-11.0)
[2016-11-04] MEDS: HYDROmorphone 1 mg/ml ISec IVP PRN ×4 (08:37→22:24)
[2016-11-04 09:01] LABS: PLATELET COUNT MANUAL 66 K/mm3 (120-450)
--- NOTE | 2016-11-04 09:04 | CP.PCM.PN ---
Subjective - Date & Time of Evaluation Date of Evaluation: 11/04/16 Time of Evaluation: 08:57 - Subjective Subjective: General Surgery Progress Note for Paulacanjuan daniel This 61F was seen and examined this Am at bedside. She reports no acute events overnight. No complainst this Am she denies blood per rectum. she denies fever chills, chest pain or SOB Objective - Vital Signs/Intake and Output Vital Signs (last 24 hours): Temp Pulse Resp BP Pulse Ox 98.6 F 110 H 20 141/79 93 L 11/03/16 06:00 11/04/16 06:00 11/03/16 06:00 11/03/16 17:53 11/03/16 06:00 Intake and Output: 11/04/16 11/04/16 06:59 18:59 Intake Total 1848 Output Total 3000 Balance -1152 - Medications Medications: Current Medications Acetaminophen (Tylenol 650 Mg Supp) 650 mg RC Q4H PRN PRN Reason: Fever >100.4 F Last Admin: 11/01/16 21:18 Dose: 650 mg Acetaminophen (Tylenol 650mg/20.3ml Solution Ud) 650 mg PO Q4 PRN PRN Reason: Fever >100.4 F Albumin Human (Albumin Human 25% (25 Gm/100 Ml)) 25 gm IV DAILY [facility] Stop: 11/04/16 10:01 Last Admin: 11/03/16 11:24 Dose: 25 gm Bismuth Subsalicylate (Pepto-Bismol) 262 mg PO BID [facility] Last Admin: 11/03/16 18:07 Dose: Not Given Collagenase (Santyl) 1 gm TOP BID [facility] Last Admin: 11/03/16 18:07 Dose: Not Given Al Hydrox/Mg Hydrox/Simethicone 30 ml/Diphenhydramine HCl 75 mg/Lidocaine 30 ml 0 ml PO Q2H PRN PRN Reason: Mouth/Throat Pain Last Admin: 11/03/16 22:47 Dose: 30 ml Diphenhydramine HCl (Benadryl) 25 mg IVP Q4H PRN PRN Reason: Allergy symptoms Last Admin: 11/03/16 00:54 Dose: 25 mg Ergocalciferol (Drisdol 50,000 Intl Units Cap) 1 cap PO Q7D [facility] Last Admin: 10/29/16 13:36 Dose: 1 cap Fluconazole (Diflucan) 200 mg PO DAILY [facility] PRN Reason: Protocol Stop: 11/30/16 10:01 Last Admin: 11/03/16 09:35 Dose: 200 mg Furosemide (Lasix) 20 mg IVP DAILY [facility] Stop: 11/04/16 18:00 Last Admin: 11/03/16 09:34 Dose: 20 mg Home Med (Home Med) 1 unit PO Q12H PRN PRN Reason: Inflammation Last Admin: 10/18/16 11:03 Dose: 1 unit Hydralazine HCl (Apresoline) 10 mg PO Q6H PRN PRN Reason: SBP >170 Hydromorphone HCl (Dilaudid) 1 mg IVP Q4H PRN PRN Reason: Pain, severe (8-10) Last Admin: 11/04/16 08:37 Dose: 1 mg Dextrose (Dextrose 5% In Water 1000 Ml) 1,000 mls @ 50 mls/hr IV .Q20H [facility] Last Admin: 11/03/16 20:09 Dose: 50 mls/hr Fat Emulsion Intravenous (Intralipid 20%) 250 mls @ 21 mls/hr IV 1800 [facility] Stop: 11/05/16 17:59 Last Admin: 11/03/16 17:51 Dose: 21 mls/hr Chromium/Copper/Manganese/Zinc 1 ml/ Multivitamins/Vitamin C 10 ml/ Amino Acids 2,011 mls @ 83 mls/hr IV .Q24H [facility] Stop: 11/05/16 17:59 Last Admin: 11/03/16 17:51 Dose: 83 mls/hr Potassium Chloride (Potassium Chloride 20 Meq/100 Ml) 20 meq in 100 mls @ 50 mls/hr IVPB ONCE ONE Stop: 11/04/16 10:50 Metoprolol Tartrate (Lopressor) 5 mg IVP Q6H PRN PRN Reason: Sustained HR > 130 Last Admin: 10/31/16 00:12 Dose: 5 mg Multi-Ingredient Ointment (Hydrophor Oint) 0 gm TOP Q6H [facility] Last Admin: 11/03/16 22:46 Dose: Not Given Ondansetron HCl (Zofran Inj) 4 mg IVP Q4H PRN PRN Reason: Nausea/Vomiting Last Admin: 06/19/17 20:46 Dose: 4 mg Pantoprazole Sodium (Protonix Inj) 40 mg IVP DAILY [facility] Last Admin: 11/03/16 09:34 Dose: 40 mg Petrolatum (Desitin Maximum Strength Topical 40% Oint) 1 gm TOP Q4H PRN PRN Reason: Rash Last Admin: 10/23/16 22:39 Dose: 1 applic Propranolol HCl (Inderal La) 120 mg PO DAILY [facility] Sucralfate (Carafate Oral Susp) 1 gm PO BID [facility] Last Admin: 11/03/16 17:50 Dose: Not Given Tobramycin Sulfate (Tobrex 0.3% Ophth Soln) 1 drop OU QID [facility] Last Admin: 11/03/16 22:46 Dose: 1 drop Valganciclovir (Valcyte) 900 mg PO DAILY [facility] Last Admin: 11/03/16 09:35 Dose: 900 mg - Labs Labs: 11/04/16 06:00 11/04/16 06:00 PT 13.6 Seconds (9.9-11.8) H 10/26/16 06:24 INR 1.26 (0.93-1.08) H 10/26/16 06:24 APTT 33.1 Seconds (23.7-30.8) H 10/26/16 06:24 - Constitutional Appears: Older Than Stated Age, Chronically Ill - Head Exam Head Exam: ATRAUMATIC, NORMOCEPHALIC - ENT Exam ENT Exam: Mucous Membranes Moist, Normal Oropharynx - Respiratory Exam Respiratory Exam: NORMAL BREATHING PATTERN. absent: Accessory Muscle Use, Respiratory Distress - Cardiovascular Exam Cardiovascular Exam: RRR - GI/Abdominal Exam GI & Abdominal Exam: Soft, Tenderness. absent: Distended - Extremities Exam Extremities Exam: absent: Calf Tenderness, Pedal Edema, Tenderness - Neurological Exam Neurological Exam: Awake, Oriented x3 - Psychiatric Exam Psychiatric exam: Flat Affect, Normal Mood - Skin Skin Exam: Dry, Normal Color, Warm Assessment and Plan - Assessment and Plan (Free Text) Assessment: This is a 61F with end stage stage IV colon CA with lower GI bleeding resulting in symptomatic anemia from ulcerated sigmoid mass for which we were consulted. Pathology from esophageal biopsy showed severely ulcerated tissue with rare fungal tissues Plan: CMV testing Negative on esophageal biopsy Patient might need a colostomy for colonic strictures and ulcerations to control bleeding. F/u GI recs Continue medical management per primary team Wound care nursing addressing sacral wound Will discuss with Dr. Jeffers and Kaykay Horta PGy1
[2016-11-04] MEDS: Sucralfate 1 gm/10 ml Oral Susp UD PO SCH ×2 (09:15→18:04)
[2016-11-04] MEDS: Tobramycin 0.3% OPHT SOLN OU SCH ×4 (09:16→22:13)
[2016-11-04] MEDS: Bismuth Subsalicylate 262 mg/15 ml Sus (240 ml) PO SCH ×2 (09:16→18:06)
[2016-11-04] MEDS: Petrolatum-Mineral Oil Oint (100gm) TOP SCH ×3 (09:16→20:35)
[2016-11-04] MEDS: Albumin Human 25% (25 gm/100 ml) IV SCH (10:28)
[2016-11-04] MEDS: Propranolol 60 mg ER Cap PO SCH (11:12)
--- NOTE | 2016-11-04 12:16 | PN ---
DATE: 11/04/2016 SUBJECTIVE: The patient is currently seen sleeping in bed. She remains on hyperalimentation, potassium free. Her potassium level is lower today and she will receive extra potassium supplements. Her BUN and creatinine remain stable. However, there has been a slight rise in her BUN on hyperalimentation and use of diuretic therapy. MEDICATIONS: List reviewed. The patient is currently on p.r.n. hydralazine, Benadryl, Carafate, hyperalimentation, Diflucan, Dilaudid, vitamin D, triamcinolone dental paste, Inderal, IV Lasix 20 mg a day, Lopressor, Pepto- Bismol, potassium K rider today, Protonix, Santyl, eyedrops, Tylenol p.r.n., Valcyte and p.r.n. Zofran. OBJECTIVE: INTAKE AND OUTPUT: Intake 4339, output 5175. VITAL SIGNS: Blood pressure 138/80, initial blood pressure this morning was 192 /92. Heart rate 118, temperature 99. Respiratory rate 20, pulse ox 98%. HEENT: Normocephalic, atraumatic. Conjunctivae are pale. Sclerae are nonicteric. NECK: Supple, no neck vein distention. CHEST: Clear to auscultation and percussion. No rales, no rhonchi, no wheezing. CARDIOVASCULAR: S1, S2 are normal. No murmurs, rubs or gallops noted. ABDOMEN: Soft. Bowel sounds normal. Mild tenderness on palpation in 4 quadrants. No rebound, no guarding, no masses. EXTREMITIES: Show puffiness of her upper extremity with no pitting edema. Lower extremity, the patient has 1-2+ dependent edema in her lower legs, thighs and sacral area. The patient has a stage II sacral decubitus ulcer. LABORATORY DATA AND IMAGING: CBC: White blood cell count 13.3, hemoglobin 9.1 with a platelet count of 47,000, manual platelet count is 66,000. Chemistries show sodium of 137, potassium down to 3.2, chloride 111 with a CO2 of 18. Anion gap is 11. BUN is 105 with creatinine of 1.5. Glucose is 119, calcium 7.5, phosphorus 3.9, magnesium 1.7. Corrected calcium is normal. Liver enzymes are normal. Microbiology: Blood cultures were positive for Susy on multiple occasions. ASSESSMENT: 1. Acute renal failure, prerenal azotemia, worsening BUN, stable creatinine. This is in the setting of hyperalimentation, in the setting of diuretic therapy , in the setting of increasing hypervolemia and patient becoming volume overloaded. No choice but to increase her diuretic therapy. Of note, her potassium level is now low on diuretic therapy. She had been on potassium in her hyperalimentation last week and this was discontinued as she developed borderline to mild hyperkalemia. No choice but to restart patient back on potassium in her hyperalimentation. In light of her increasing hypervolemia, diuretics will be increased. In all likelihood, patient will become more prerenal. 2. Stomatitis, mucositis, fungemia with Susy, sacral decubiti. The patient remains on empiric antibiotic therapy, antifungal and antiviral therapy. 3. Electrolyte abnormalities in the setting of hyperalimentation. This is being adjusted on a near daily basis. 4. Status post Escherichia coli urinary tract infection. 5. Stage IV metastatic colon cancer with bone metastases. The patient being followed by oncology. 6. History of anemia, thrombocytopenia. All thought to be secondary to metastatic cancer. The patient's hemoglobin is slightly lower at 9.1. The patient may be transfused as per hematology/oncology on an as needed basis. PLAN: 1. Adjustment made in her hyperalimentation. Will add potassium back to the hyperal. 2. Increase diuretic therapy as her edema appears to be worsening. 3. Try and keep output ahead of input. 4. Continue to monitor for any further diarrhea. 5. The patient's snf prognosis is unfortunately poor. 6. The patient is being evaluated for a possible colostomy in light of a necrotic stenotic area in her sigmoid colon. Kyle Brooks MD cc: [id number] TT: 11/04/2016 12:15:42 Confirmation # [id number] Dictation # [id number] en MTDD
[2016-11-04] MEDS: Micafungin 100 MG in Sodium Chloride 0.9% 100 ML IV SCH (12:54)
--- NOTE | 2016-11-04 13:56 | PN ---
DATE: 11/04/2016 REASON FOR CONSULTATION AND FOLLOWUP: Sinus tachycardia. BRIEF CLINICAL HISTORY: A 61-year-old female with past medical history significant for stage IV canc er, for colostomy, PICC line, low grade fever, developed sinus tachycardia. The patient started on p ropranolol, improved. Denies any chest pain, shortness of breath, any palpitation. Family is at the bedside. PHYSICAL EXAMINATION: VITAL SIGNS: Temperature afebrile, heart rate 95, blood pressure 138/80. HEENT: PERRLA. Extraocular muscles intact. NECK: Supple. No carotid bruits. No thyromegaly. CHEST: Clear to auscultation. HEART: S1, S2 regular. ABDOMEN: Soft. EXTREMITIES: Clubbing, cyanosis negative. BLOOD WORKUP: WBC 13.3, hemoglobin 9. , hematocrit 26.8, platelet count 60. Sodium 137, potassi um 3.2, chloride 111, carbon dioxide 18, anion gap of 11, BUN 15, creatinine 1.5. IMPRESSION: A 61-year-old female with past medical history significant for stage IV cancer, for poss ible colostomy, severe protein-calorie malnutrition, sinus tachycardia, anemia, thrombocytopenia, sta tus post chemo, started on propranolol, improved, colon cancer with metastasis, severe anemia, leukoc ytosis, low-grade fever. Tachycardia is multifactorial, secondary to many underlying medical conditi ons, pain as well as low-grade fever. RECOMMENDATION: Start propranolol, Inderal to 120 mg today. Supplement potassium and continue nutri tional support as tolerated. We will follow with you. Overall, patient's condition is critical. Lo ngterm prognosis is extremely guarded. Thank you, Dr. Hendricks, for providing us the opportunity in taking care of the patient. Sherrell Busby MD cc: [id number] TT: 11/04/2016 13:55:29 Confirmation # [id number] Dictation # [id number] en
--- NOTE | 2016-11-04 14:39 | PN ---
DATE: 11/04/2016 This is the patient's hospital visit on the medical floor. For Dr. Hendricks. SUBJECTIVE: The patient is a 61-year-old female, seen lying supine in bed, lethargic, but arousable with mother at the bedside, known to have stage IV CA of the colon with mets to the bone with r ectal bleeding, now thought to be caused by a necrotic ulcer with stricture 10 cm at the rectosigmoid junction as per Dr. Null's testing. With this, the patient is now reporting that her analgesics are helping her pain after it was changed to Dilaudid 1 mg q. [address] Null's and Dr. Mccracken's recommendation with consult with Dr. Amador, pain job service consultant, pending. Also, evaluati on with Dr. Greenberg for candidal fungemia appreciated with the patient to continue her hyperal with l iquid diet only as per Dr. Null's strict recommendation due to her stricture. The hope is for th e patient to be cleared medically and surgically for a diverting colostomy so that she may be able to eat with her quality of life to improve. She continues Diflucan orally for a total of 28 days as pe r Dr. Akhtar's recommendations. However, this was just changed to micafungin as per Dr. Norman sandoval. OBJECTIVE AND PHYSICAL EXAMINATION: VITAL SIGNS: Temperature is 99, pulse 112, respirations 20, blood pressure 138/80, pulse ox 98%. HEENT: She appears pale and withdrawn, oxygen is on. Otherwise unremarkable. NECK: Supple. HEART: Tachy rate, regular rhythm. LUNGS: Rare rhonchi. ABDOMEN: Soft. Minimal tenderness to gentle palpation mid lower epigastrium with Salazar catheter in situ. EXTREMITIES: +1 edema of the hands and feet. NEUROLOGIC: She is somnolent, but arousable. SKIN: Showing a decubitus ulcer inspected by surgical team earlier today. The patient's labs were done. White blood cell count of 13.3, hemoglobin of 9.1, hematocrit of 26.8, platelet count of 47,000 with a manual of 66,000 with a chem metabolic panel showing a potassium of 3.2, chloride of 111, BUN of 105, creatinine of 1.5 with a calcium of 7.5, T-bili of 2.7, total prote in 4.3, albumin of 1.9 after recent albumin given with Lasix afterwards as per Dr. Hendricks's recommen dation. ASSESSMENT: For this patient is that of intractable pain of cancer, stage IV cancer of the colon wit h rectal bleed, symptomatic anemia, status post transfusions, thrombocytopenia, no active bleeding at present, necrotic ulcer with stricture at 10 cm level on recent sigmoidoscopy, acute renal failure, neutropenic sepsis history, malnutrition, candidal fungemia, deconditioning. PLAN: For this patient is to continue present medical regimen with consideration for surgical proced ure for colostomy if possible as per consultants' recommendations with the consideration for improvem ent in quality of life so the patient may eat as she has been on a liquid diet since the stricture wa s noted by Dr. Null on his testing. We will replenish her electrolytes and continue her hyperal with consideration for transfusion as per her anemic indices. Prognosis for this patient is guarded. After discussion with patient and her mother, she is still full code at this point. We will monito r clinically and with labs. Tomasz Winters MD cc: [phone] TT: 11/04/2016 14:38:34 Confirmation # [id number] Dictation # [id number] en
[2016-11-04] MEDS: Collagenase 250 Units/gm Ointment(30 gm) TOP SCH ×2 (14:40→18:06)
[2016-11-04] MEDS: DEXT IV SCH (18:05)
[2016-11-04] MEDS: MULTIVITAMIN IV SCH (18:05)
[2016-11-04] MEDS: TRACE ELEMENTS IV SCH (18:05)
[2016-11-04] MEDS: AMINO IV SCH (18:05)
[2016-11-04] MEDS: [UNRECOGNIZED DRUG - OTHER] IV SCH (18:05)
[2016-11-04] MEDS: Fat Emulsion 20% IV 250 ML IV SCH (18:06)
[2016-11-05] MEDS: DiphenhydrAMINE 50 mg/ml Inj IVP PRN ×5 (01:01→18:27)
[2016-11-05] MEDS: HYDROmorphone 1 mg/ml ISec IVP PRN ×5 (03:20→22:15)
[2016-11-05] MEDS: Petrolatum-Mineral Oil Oint (100gm) TOP SCH ×4 (03:21→20:40)
[2016-11-05 07:37] LABS: ALB/GLOB RATIO 0.8 (1.1-1.8); CALCIUM 7.8 mg/dL (8.4-10.5); MAGNESIUM 1.5 mg/dL (1.7-2.2)
--- NOTE | 2016-11-05 08:31 | PN ---
DATE: 11/03/2016 REASON FOR CONSULTATION: Sinus tachycardia. BRIEF CLINICAL HISTORY: A 61-year-old female with past medical history significant for stage IV lung cancer, colectomy, status post chemo PICC line, low grade fever, urinary tract infection. Cardiac c onsult called for ____. The patient started on propranolol, heart rate is improved. PHYSICAL EXAMINATION: VITAL SIGNS: Temperature afebrile, heart rate ____, blood pressure 152/94. HEENT: PERRLA. Extraocular muscles intact. NECK: Supple. No carotid bruits. No thyromegaly. CHEST: Clear to auscultation. HEART: S1, S2 regular. ABDOMEN: Soft. EXTREMITIES: Clubbing and cyanosis negative. LABORATORY DATA: Blood workup as follows: WBC 16.5, hemoglobin 11.1, hematocrit 32.1 and platelet c ount 60. Total sodium 135, potassium ____3.9, chloride 113, carbon dioxide 14, BUN 101, creatinine 1 .5. Albumin 1.8. IMPRESSION: Severe protein-calorie malnutrition, anemia, severe thrombocytopenia, leukocytosis, sinu s tachycardia, colon cancer with metastasis awaiting for possible colostomy to relieve obstruction, low grade fever, leukocytosis, severe anemia. RECOMMENDATION: Continue propranolol increase to 120 mg daily, give 1 or 2 doses of IV albumin to im prove the ____ cardiac pressure and severe protein deficiency and severe hypoproteinemia. Will follo w with you. Thank you, Dr. Hendricks, for providing us the opportunity in taking care of the patient. The patient has severe protein-calorie malnutrition, severe hypoalbuminemia, which was present on admission, was moderate now severe. Sherrell Busby MD cc: [phone] TT: 11/03/2016 13:37:03 Confirmation # [id number] Dictation # [id number] kyle
--- NOTE | 2016-11-05 08:34 | PN ---
DATE: 11/04/2016 The patient is in bed, in no acute distress, nontoxic. PHYSICAL EXAMINATION: VITAL SIGNS: Temperature is 99, blood pressure is 130/80, respiratory rate of 16. HEENT: Unremarkable. NECK: Supple. LUNGS: Have decreased breath sounds. HEART: Normal S1, S2. ABDOMEN: Soft, nontender. LABORATORY EXAMINATION: Reveals a white count of 13,300, hemoglobin of 9, platelets of 47. Chemistr ies reveals the BUN of 105, creatinine of 1.5. Urinalysis is noted. Microbiology is noted. Repeat blood cultures are now returning with yeast again. ASSESSMENT AND PLAN: A 61-year-old female with sepsis with Susy albicans fungemia, Port-A-Cath an d secondary to urine. Repeat blood cultures from the , which were initially reported to have no growth at 3 days, are now reported to be yeast. We will discontinue the Diflucan and start Mycamine IV and repeat blood cultures x 2. Overall prognosis quite poor for this patient. We will also check on the CMV PCR. Overall prognosis poor. Lang Akhtar MD cc: [phone] TT: 11/04/2016 12:27:02 Confirmation # [id number] Dictation # [id number] en
[2016-11-05 08:59] LABS: BASO # 0.01 K/mm3 (0.0-2.0); BASO % 0.1 % (0.0-3.0); EOS # 0.2 (0.0-0.7); EOS % 2.6 % (1.5-5.0); GRAN # 8.05 (1.4-6.5); GRAN % 87.2 % (50.0-68.0); HEMOGLOBIN 8.6 gm/dL (12.0-16.0); LYMPH # 0.7 (1.2-3.4); LYMPH % 7.2 % (22.0-35.0); MEAN CELL VOLUME 87.7 fL (80.0-105.0); MEAN CORPUSCULAR HEMOGLOBIN 30.3 pg (25.0-35.0); MEAN CORPUSCULAR HGB CONC 34.5 g/dl (31.0-37.0); MONO # 0.3 (0.1-0.6); MONO % 2.9 % (1.0-6.0); PLATELET COUNT 45 10^3/uL (120.0-450.0); RBC 2.84 10^6/uL (3.5-6.1); RED CELL DISTRIBUTION WIDTH 16.7 % (11.5-14.5); WHITE BLOOD COUNT 9.2 10^3/ul (4.5-11.0)
--- NOTE | 2016-11-05 09:29 | CP.PCM.PN ---
<Ludivina William - Last Filed: 11/05/16 09:46> Subjective - Date & Time of Evaluation Date of Evaluation: 11/05/16 Time of Evaluation: 06:30 - Subjective Subjective: General Surgery Progress Note for Dr. Jeffers/Kaykay Patient seen and examined at bedside. No acute events overnight. Patient still complains of feeling weak. Patient does not want to be examined for her sacral wound, stating er sacral wound dressing was last changed yesterday afternoon. Denies blood per rectum. Patient further denies fever, chills, shortness of breath, chest pain, nausea or vomiting. Objective - Vital Signs/Intake and Output Vital Signs (last 24 hours): Temp Pulse Resp BP Pulse Ox 99.0 F 107 H 20 177/100 H 98 11/04/16 06:00 11/05/16 06:00 11/04/16 06:00 11/04/16 22:18 11/04/16 06:00 Intake and Output: 11/05/16 11/05/16 06:59 18:59 Intake Total 0 Output Total 1300 Balance -1300 - Medications Medications: Current Medications Acetaminophen (Tylenol 650 Mg Supp) 650 mg RC Q4H PRN PRN Reason: Fever >100.4 F Last Admin: 11/01/16 21:18 Dose: 650 mg Acetaminophen (Tylenol 650mg/20.3ml Solution Ud) 650 mg PO Q4 PRN PRN Reason: Fever >100.4 F Bismuth Subsalicylate (Pepto-Bismol) 262 mg PO BID [facility] Last Admin: 11/04/16 18:06 Dose: Not Given Collagenase (Santyl) 1 gm TOP BID [facility] Last Admin: 11/04/16 18:06 Dose: 1 applic Al Hydrox/Mg Hydrox/Simethicone 30 ml/Diphenhydramine HCl 75 mg/Lidocaine 30 ml 0 ml PO Q2H PRN PRN Reason: Mouth/Throat Pain Last Admin: 11/03/16 22:47 Dose: 30 ml Diphenhydramine HCl (Benadryl) 25 mg IVP Q4H PRN PRN Reason: Allergy symptoms Last Admin: 11/05/16 05:52 Dose: 25 mg Ergocalciferol (Drisdol 50,000 Intl Units Cap) 1 cap PO Q7D [facility] Last Admin: 10/29/16 13:36 Dose: 1 cap Furosemide (Lasix) 20 mg IVP Q12 [facility] Last Admin: 11/04/16 22:18 Dose: 20 mg Home Med (Home Med) 1 unit PO Q12H PRN PRN Reason: Inflammation Last Admin: 10/18/16 11:03 Dose: 1 unit Hydralazine HCl (Apresoline) 10 mg PO Q6H PRN PRN Reason: SBP >170 Last Admin: 11/04/16 18:04 Dose: 10 mg Hydromorphone HCl (Dilaudid) 1 mg IVP Q4H PRN PRN Reason: Pain, severe (8-10) Last Admin: 11/05/16 03:20 Dose: 1 mg Chromium/Copper/Manganese/Zinc 1 ml/ Multivitamins/Vitamin C 10 ml/ Amino Acids 2,011 mls @ 83 mls/hr IV .Q24H [facility] Stop: 11/05/16 17:59 Last Admin: 11/04/16 18:05 Dose: 83 mls/hr Micafungin Sodium 100 mg/ (Sodium Chloride) 100 mls @ 100 mls/hr IV DAILY [facility] PRN Reason: Protocol Stop: 11/18/16 11:00 Last Admin: 11/04/16 12:54 Dose: 100 mls/hr Metoprolol Tartrate (Lopressor) 5 mg IVP Q6H PRN PRN Reason: Sustained HR > 130 Last Admin: 10/31/16 00:12 Dose: 5 mg Multi-Ingredient Ointment (Hydrophor Oint) 0 gm TOP Q6H [facility] Last Admin: 11/05/16 03:21 Dose: 1 applic Ondansetron HCl (Zofran Inj) 4 mg IVP Q4H PRN PRN Reason: Nausea/Vomiting Last Admin: 10/29/16 20:46 Dose: 4 mg Pantoprazole Sodium (Protonix Inj) 40 mg IVP DAILY [facility] Last Admin: 11/04/16 09:14 Dose: 40 mg Petrolatum (Desitin Maximum Strength Topical 40% Oint) 1 gm TOP Q4H PRN PRN Reason: Rash Last Admin: 10/23/16 22:39 Dose: 1 applic Propranolol HCl (Inderal La) 120 mg PO DAILY [facility] Last Admin: 11/04/16 11:12 Dose: Not Given Sucralfate (Carafate Oral Susp) 1 gm PO BID [facility] Last Admin: 11/04/16 18:04 Dose: 1 gm Tobramycin Sulfate (Tobrex 0.3% Ophth Soln) 1 drop OU QID [facility] Last Admin: 11/04/16 22:13 Dose: 1 drop Valganciclovir (Valcyte) 900 mg PO DAILY [facility] Last Admin: 11/04/16 09:15 Dose: Not Given - Labs Labs: 11/05/16 07:00 11/05/16 07:00 PT 13.6 Seconds (9.9-11.8) H 10/26/16 06:24 INR 1.26 (0.93-1.08) H 10/26/16 06:24 APTT 33.1 Seconds (23.7-30.8) H 10/26/16 06:24 - Constitutional Appears: No Acute Distress, Cachectic, Chronically Ill - Head Exam Head Exam: ATRAUMATIC - Eye Exam Eye Exam: EOMI, Normal appearance - ENT Exam ENT Exam: Mucous Membranes Moist - Respiratory Exam Respiratory Exam: NORMAL BREATHING PATTERN. absent: Respiratory Distress - Cardiovascular Exam Cardiovascular Exam: +S1, +S2 - GI/Abdominal Exam GI & Abdominal Exam: Soft, Normal Bowel Sounds. absent: Distended, Guarding - Extremities Exam Extremities Exam: Pedal Edema - Neurological Exam Neurological Exam: Alert, Awake, Oriented x3 - Psychiatric Exam Psychiatric exam: Flat Affect - Skin Skin Exam: Dry, Warm Assessment and Plan - Assessment and Plan (Free Text) Assessment: 61 female with history stage IV colon CA with lower GI bleeding resulting in symptomatic anemia from ulcerated sigmoid mass for which we were consulted. Pathology from esophageal biopsy showed severely ulcerated tissue with rare fungal tissues Plan: -CMV testing Negative on esophageal biopsy -Patient might need a colostomy for colonic strictures and ulcerations to control bleeding -Follow GI team recommendations -Continue medical management per primary team -Continue sacral wound care by nursing -Will discuss with attendings Dr. Jeffers and Dr. Mccracken <Yoan Mccracken - Last Filed: 12/02/16 23:49> Objective - Vital Signs/Intake and Output Vital Signs (last 24 hours): Temp Pulse Resp BP Pulse Ox 97.8 F 101 H 18 170/89 H 100 12/02/16 16:00 12/02/16 16:00 12/02/16 16:00 12/02/16 16:00 12/02/16 16:00 Intake and Output: 12/02/16 12/03/16 18:59 06:59 Intake Total 120 Output Total 450 600 Balance -450 -480 - Medications Medications: Current Medications Acetaminophen (Tylenol 650 Mg Supp) 650 mg RC Q4H PRN PRN Reason: Fever >100.4 F Last Admin: 11/01/16 21:18 Dose: 650 mg Al Hydrox/Mg Hydrox/Simethicone 30 ml/Diphenhydramine HCl 75 mg/Lidocaine 30 ml 0 ml PO QID [facility] Last Admin: 12/02/16 21:01 Dose: Not Given Diphenhydramine HCl (Benadryl) 50 mg IVP HS PRN PRN Reason: Insomnia Last Admin: 11/27/16 01:00 Dose: 50 mg Ergocalciferol (Drisdol 50,000 Intl Units Cap) 1 cap PO Q7D [facility] Last Admin: 11/19/16 18:04 Dose: Not Given Ferrous Sulfate (Feosol) 324 mg PO TID [facility] Last Admin: 12/02/16 18:16 Dose: Not Given Fluconazole (Diflucan) 200 mg PO DAILY [facility] PRN Reason: Protocol Stop: 12/12/16 10:01 Last Admin: 12/02/16 09:44 Dose: Not Given Home Med (Home Med) 1 unit PO Q12H PRN PRN Reason: Inflammation Last Admin: 10/18/16 11:03 Dose: 1 unit Hydralazine HCl (Apresoline) 10 mg IVP Q4H PRN PRN Reason: Systolic Blood Pressure Hydromorphone HCl (Dilaudid) 1 mg IVP Q1H PRN PRN Reason: Pain, moderate (4-7) Last Admin: 12/02/16 21:06 Dose: 1 mg Levetiracetam (Keppra 500mg Ivpb) 500 mg in 100 mls @ 400 mls/hr IV Q12 [facility] Last Admin: 12/02/16 21:06 Dose: 400 mls/hr Potassium Chloride/Dextrose (Potassium Chl 40 Meq In D5w) 1,000 mls @ 60 mls/ hr IV .[id number] [facility] Last Admin: 12/02/16 18:17 Dose: Not Given Magnesium Hydroxide (Milk Of Magnesia) 30 ml PO DAILY PRN PRN Reason: skin irritation Last Admin: 12/02/16 14:09 Dose: 30 ml Magnesium Oxide (Mag-Ox) 400 mg PO BID [facility] Last Admin: 12/02/16 18:16 Dose: Not Given Multi-Ingredient Ointment (Hydrophor Oint) 0 gm TOP Q6H PRN PRN Reason: Dry lip Multivitamins (Thera Tab) 1 tab PO 0800 [facility] Last Admin: 12/02/16 08:10 Dose: Not Given Propranolol HCl (Inderal La) 120 mg PO DAILY [facility] Last Admin: 12/02/16 09:44 Dose: Not Given Sucralfate (Carafate Oral Susp) 1 gm PO BID [facility] Last Admin: 12/02/16 18:16 Dose: Not Given - Labs Labs: 12/02/16 06:00 12/02/16 06:00 PT 12.9 Seconds (9.9-11.8) H 12/02/16 06:00 INR 1.19 (0.93-1.08) H 12/02/16 06:00 APTT 32.9 Seconds (23.7-30.8) H 12/02/16 06:00 Assessment and Plan - Assessment and Plan (Free Text) Plan: Patient was seen and examined by me. I agree with assessment and plan as per resident's note.
[2016-11-05] MEDS: Sucralfate 1 gm/10 ml Oral Susp UD PO SCH ×2 (09:31→17:34)
[2016-11-05] MEDS: Tobramycin 0.3% OPHT SOLN OU SCH ×4 (09:31→21:32)
[2016-11-05] MEDS: Propranolol 60 mg ER Cap PO SCH (09:34)
[2016-11-05] MEDS: Bismuth Subsalicylate 262 mg/15 ml Sus (240 ml) PO SCH ×2 (09:34→17:34)
[2016-11-05] MEDS: Collagenase 250 Units/gm Ointment(30 gm) TOP SCH ×2 (10:05→17:34)
[2016-11-05 10:52] LABS: PLATELET COUNT MANUAL 50 K/mm3 (120-450)
--- NOTE | 2016-11-05 11:02 | PN ---
DATE: 11/05/2016 SUBJECTIVE: The patient is seen lying in bed. She is sedated. She received pain medication. She i s arousable. She complains of pain. She still has some diarrhea. She denies any chest tightness. PHYSICAL EXAMINATION: GENERAL: Elderly lady lying in bed. VITAL SIGNS: Blood pressure 167/94, heart rate 104, respiratory rate 18, temperature 99.0. HEENT: Normocephalic, atraumatic. NECK: Supple. No JVD. LUNGS: Bilateral equal air entry, poor inspiratory effort, equal expansion. CARDIAC: S1, S2, regular rate and rhythm, no murmur, no rub. ABDOMEN: Obese, distended, soft, tenderness in the lower abdomen, bowel sounds present. EXTREMITIES: 3+ pitting edema of the lower extremities, 3+ pitting edema of the upper extremities, l eft greater than right. INTAKE AND OUTPUT: 120/2200. LABORATORY DATA: WBC 9.2, hemoglobin 8.6, hematocrit 25, platelets 45. Sodium 138, potassium 3.3, c hloride 108, CO2 21, BUN 112, creatinine 1.5, glucose 117, calcium 7.8, phosphorus 3.7, magnesium 1.5 . Total bili 2.7, albumin 2.0. Sacral wound culture: Susy. Blood culture: Susy. Blood culture pending from 10/30. CURRENT MEDICATIONS: Hydralazine, Benadryl, Carafate, hyperal at 83, Dilaudid, Drisdol. HOME MEDICATIONS: Inderal, Lasix, Lopressor, micafungin, bismuth, Protonix, tobramycin, Tylenol, flakito acyclovir, Zofran. ASSESSMENT: 1. Acute renal failure, worsening azotemia. 2. Elevated bilirubin. 3. Stomatitis, mucositis, fungemia. 4. Hypokalemia, hypomagnesemia. 5. Stage IV colon cancer with bone metastases. 6. Severe anemia. PLAN: 1. Increase potassium in the hyperal. 2. Discontinue lipids. 3. Monitor urine output closely. 4. Comfort care. 5. Poor prognosis. Adele Griffin MD cc: [phone] TT: 11/05/2016 11:02:21 Confirmation # [id number] Dictation # [id number] mn
[2016-11-05] MEDS: Ergocalciferol 50,000 Intl Units Cap PO SCH (14:21)
--- NOTE | 2016-11-05 15:05 | PN ---
DATE: 11/05/2016 Seen and examined at the bedside earlier today. Her sister was there. The patient is awake, but jackson s appear weak and lethargic. Tolerated a little bit of [place], but not much. Still having throat pa in. According to nursing staff, patient is having dark loose stools. No bright red blood. It is in continent most of the times, especially when the patient is turned. VITAL SIGNS: Temperature is 99.0, blood pressure is 167/94, pulse rate is 105, respirations 20. LABORATORIES: WBC is 9.2, H and H is 8.6 and 24.9, platelet is 45, manual platelet is 50. Sodium 13 8, K 3.3, BUN is 112, creatinine is 1.5, total bilirubin is 2.7, AST is 15, ALT 38, alk phos is 129. PHYSICAL EXAMINATION: HEENT: Sclera is mildly icteric. NECK: Supple. CARDIAC: S1, S2. LUNG SOUNDS: With decreased breath sounds at the bases. ABDOMEN: With bowel sounds, softly distended. The patient has generalized edema and positive tender ness to lower abdomen. No rebound, guarding. EXTREMITIES: Positive bilateral pedal edema as well as upper extremities. NEUROLOGIC: The patient is awake at times, but appears weak and lethargic. ASSESSMENT: Stage IV colon cancer with metastasis to the bone, severe anemia, status post multiple b lood transfusions, acute renal failure, esophagitis with ulcerations, fungemia with Susy, diarrhea , decubitus ulcers. The patient had endoscopy, severe esophageal ulcerations. The biopsies for cyto megalovirus were negative. She also had a flex sigmoidoscopy and that still showed the stricture in the sigmoid colon and nonbleeding external hemorrhoids. PLAN: The patient is on hyperal as per renal, remains on IV antibiotics, Dilaudid for pain, PPI, is on Carafate, . She is being followed by surgery and discussion to be done with family regarding plan as per the sister. Thinking of possible surgical procedure for colostomy. The patient was seen and case discussed with Dr. Null. Yoana IQBAL cc: [phone] TT: 11/05/2016 15:05:03 Confirmation # [id number] Dictation # [id number] en
--- NOTE | 2016-11-05 16:07 | PN ---
DATE: 11/05/2016 REASON FOR CONSULTATION AND FOLLOWUP: Sinus tachycardia, colon cancer with mets. BRIEF CLINICAL HISTORY: A 61-year-old female with a past medical history significant for stage IV CA of the colon, for colostomy. The patient was running low-grade fever, sinus tachycardia, started on Inderal. Heart rate is well controlled. Denies any chest pain, shortness of breath, any palpitation. PHYSICAL EXAMINATION: VITAL SIGNS: Temperature afebrile, heart rate 94, blood pressure 167/94. HEENT: PERRLA. Extraocular muscles intact. NECK: Supple. No carotid bruit, no thyromegaly. CHEST: Clear to auscultation. HEART: S1, S2 regular. ABDOMEN: Soft. EXTREMITIES: Clubbing, cyanosis negative. BLOOD WORKUP: WBC 9., hemoglobin 8.6, hematocrit 24.9, platelet count 45. Chemistry shows sodium 134, potassium 3.3, chloride 108, carbon dioxide _23, anion gap of 12, BUN 112, creatinine 1.5. IMPRESSION: Acute kidney injury, prerenal azotemia, diabetes, protein-calorie malnutrition, moderate, which was present since admission, severe, now it is getting moderate, anemia, thrombocytopenia, colon cancer with bowel obstruction , possibly needs colostomy, sinus tachycardia, multifactorial anemia, sepsis, leukocytosis, underlying medical condition and pain. Started on propranolol 120 mg daily. Will also add hydralazine p.r.n. because the patient had one episode of elevated BP, will give 10 mg p.o. q. 6 p.r.n. Will supplement potassium. Thank you, Dr. Hendricks, for providing us the opportunity in taking care of the patient. will supplement potassium. Will follow with you. Sherrell Busby MD cc: [phone] TT: 11/05/2016 13:32:55 Confirmation # [id number] Dictation # [id number] en MTDD
[2016-11-05] MEDS: [UNRECOGNIZED DRUG - OTHER] IV SCH (17:45)
[2016-11-05] MEDS: AMINO IV SCH (17:45)
[2016-11-05] MEDS: TRACE ELEMENTS IV SCH (17:45)
[2016-11-05] MEDS: DEXT IV SCH (17:45)
[2016-11-05] MEDS: MULTIVITAMIN IV SCH (17:45)
--- NOTE | 2016-11-05 23:57 | PN ---
DATE: 11/05/2016 The patient is in room 364, bed 2. SUBJECTIVE: The patient is examined at the bedside. Mother is there. The patient is awake, but eloisa ears to be weak and lethargic, had a little bit of earlier today, had some loose bowel movement s, which was dark in color, still having odynophagia. According to nursing staff, the patient is sti ll having dark stools, no bright red bleeding. The patient is incontinent most of the time, especial ly with the patient is turned. OBJECTIVE: The patient is examined in bed. VITAL SIGNS: Stable. T-max 99, blood pressure is 167/94, pulse rate is 105, respirations 20. The p atient is being followed by cardiology as well to help us control the heart rate and the blood pressu re. GENERLAL: The patient is awake, alert, and oriented, in no acute distress. Temporal muscle wasting is noted. HEENT: Examination of the oropharynx, reveals no oropharyngeal lesions. HEART: Reveals S1 and S2 to be normal. No gallop or murmur is heard. LUNGS: Relatively clear to percussion and auscultation with decreased breath sounds at the bases. ABDOMEN: Soft, mildly distended. The patient has generalized anasarca with positive tenderness in t he lower abdomen and left lower quadrant. No rebound, rigidity or guarding is noted. EXTREMITIES: The patient has bilateral pitting edema in both upper and lower extremities as well. T he patient also has sacral edema. NEUROLOGIC: Higher functions are normal. No focal deficits are noted. LABORATORY DATA: From today reveals a white count of 9.2, hemoglobin 8.6, hematocrit 24.9, platelet count of 45,000. Manual count is 50. Sodium is 133, K is 3.3, BUN is , creatinine 1.5. Total bilirubin is 2.7, AST 15, ALT of 38, alkaline phosphatase of 129. ASSESSMENT NOTES AND PLAN: The patient has stage IV metastatic colorectal carcinoma with obstructive lesion in the rectosigmoid area measuring 6 inches in length secondary to extrinsic pressure from tu mor, status post multiple transfusions, status post multiple episodes of rectal bleeding, esophagitis with ulcerations punctate in nature, negative for CMV, has fungemia with positive Susy albicans f rom blood cultures, diarrhea, decubitus ulcer. The patient on sigmoidoscopy had a stenotic lesion in the sigmoid colon, that accounts for some of her symptoms abdominally. ASSESSMENT NOTES AND PLAN: The patient is currently on as per renal, remains on IV antibiotics ., is on PPI, Dilaudid for pain, on Carafate. She is being followed very closely by surgery. I spok e to Dr. Akhtar today. Blood cultures as of yesterday were still positive for Susy infection and it is unlikely the patient can go for surgery at this point in time until the infection has been cleared in the blood stream. Overall, prognosis is guarded. I spoke to the family at length today. Mother specifically requested me to see if I could get a second opinion, so that they feel at least satisfied that everything that is being done can be done or anything else could be added, and so I wi ll request Dr. Regan Wilburn, who is another oncologist, to see the patient while the patient is in the hospital. I explained to the patient and the mom that we are getting the request of another physici ans to see her just for a second opinion. I will speak to Dr. Winters as well regarding further treatment plans. Kedar Hendricks MD cc: [id number] TT: 11/05/2016 23:57:14 Confirmation # [id number] Dictation # [id number] mark
[2016-11-06] MEDS: HYDROmorphone 1 mg/ml ISec IVP PRN ×2 (01:54→06:27)
[2016-11-06] MEDS: Petrolatum-Mineral Oil Oint (100gm) TOP SCH ×4 (02:40→21:15)
--- NOTE | 2016-11-06 07:03 | PN ---
DATE: 11/05/2016 This patient was seen and evaluated on 11/05/2016. This is an addendum to the GI progress report dictated by LAZARO Wong. The patient is still having episodes of loose bowel movements with bleeding per rectum. She is still on clear liquid diet. I discussed with Dr. Akhtar over the weekend regarding blood cultures. The patient is also followed by the surgeon. Discussed with Dr. Hendricks earlier. Plan for colostomy Thank you for allowing us to participate in the care of the patient. Tong Null MD cc: [id number] TT: 11/06/2016 07:02:08 Confirmation # [id number] Dictation # [id number] tn MTDD
[2016-11-06 08:00] LABS: BASO # 0.01 K/mm3 (0.0-2.0); BASO % 0.1 % (0.0-3.0); EOS # 0.1 (0.0-0.7); EOS % 0.7 % (1.5-5.0); GRAN # 9.49 (1.4-6.5); GRAN % 88.6 % (50.0-68.0); LYMPH # 0.8 (1.2-3.4); LYMPH % 7.6 % (22.0-35.0); MEAN CORPUSCULAR HGB CONC 33.3 g/dl (31.0-37.0); MONO # 0.3 (0.1-0.6); PLATELET COUNT 59 10^3/uL (120.0-450.0); RED CELL DISTRIBUTION WIDTH 17.1 % (11.5-14.5); WHITE BLOOD COUNT 10.7 10^3/ul (4.5-11.0)
[2016-11-06 08:04] LABS: HEMOGLOBIN 6.6 gm/dL (12.0-16.0)
--- NOTE | 2016-11-06 08:05 | CP.PCM.PN ---
<Carlos Feng - Last Filed: 11/06/16 08:00> Subjective - Date & Time of Evaluation Date of Evaluation: 11/06/16 Time of Evaluation: 06:45 - Subjective Subjective: Carlos Feng D.O. PGY-1, General Surgery Progress Note: Dr. Kaykay Brunner/Dr. Zeyad Brunner Patient was seen and examined at bedside with surgical team. Other than feeling somewhat warm patient did not have any specific complaints at this time. No blood per rectum since last seen. Denies any N/V/fevers/chills or otherwise. Objective - Vital Signs/Intake and Output Vital Signs (last 24 hours): Temp Pulse Resp BP Pulse Ox 97.7 F 110 H 20 145/90 99 11/05/16 16:00 11/06/16 06:00 11/05/16 16:00 11/05/16 21:33 11/05/16 16:00 Intake and Output: 11/06/16 11/06/16 06:59 18:59 Intake Total 120 Output Total 2200 Balance -2080 - Medications Medications: Current Medications Acetaminophen (Tylenol 650 Mg Supp) 650 mg RC Q4H PRN PRN Reason: Fever >100.4 F Last Admin: 11/01/16 21:18 Dose: 650 mg Acetaminophen (Tylenol 650mg/20.3ml Solution Ud) 650 mg PO Q4 PRN PRN Reason: Fever >100.4 F Bismuth Subsalicylate (Pepto-Bismol) 262 mg PO BID [facility] Last Admin: 11/05/16 17:34 Dose: Not Given Collagenase (Santyl) 1 gm TOP BID [facility] Last Admin: 11/05/16 17:34 Dose: Not Given Al Hydrox/Mg Hydrox/Simethicone 30 ml/Diphenhydramine HCl 75 mg/Lidocaine 30 ml 0 ml PO Q2H PRN PRN Reason: Mouth/Throat Pain Last Admin: 11/03/16 22:47 Dose: 30 ml Diphenhydramine HCl (Benadryl) 25 mg IVP Q4H PRN PRN Reason: Allergy symptoms Last Admin: 11/05/16 18:27 Dose: 25 mg Ergocalciferol (Drisdol 50,000 Intl Units Cap) 1 cap PO Q7D [facility] Last Admin: 11/05/16 14:21 Dose: 1 cap Furosemide (Lasix) 20 mg IVP Q12 [facility] Last Admin: 11/05/16 21:33 Dose: 20 mg Home Med (Home Med) 1 unit PO Q12H PRN PRN Reason: Inflammation Last Admin: 10/18/16 11:03 Dose: 1 unit Hydralazine HCl (Apresoline) 10 mg PO Q6H PRN PRN Reason: SBP >170 Last Admin: 11/04/16 18:04 Dose: 10 mg Hydromorphone HCl (Dilaudid) 1 mg IVP Q4H PRN PRN Reason: Pain, severe (8-10) Last Admin: 11/06/16 06:27 Dose: 1 mg Micafungin Sodium 100 mg/ (Sodium Chloride) 100 mls @ 100 mls/hr IV DAILY [facility] PRN Reason: Protocol Stop: 11/18/16 11:00 Last Admin: 11/04/16 12:54 Dose: 100 mls/hr Chromium/Copper/Manganese/Zinc 1 ml/ Multivitamins/Vitamin C 10 ml/ Amino Acids 2,011 mls @ 83 mls/hr IV .Q24H [facility] Stop: 11/08/16 17:59 Last Admin: 11/05/16 17:45 Dose: 83 mls/hr Metoprolol Tartrate (Lopressor) 5 mg IVP Q6H PRN PRN Reason: Sustained HR > 130 Last Admin: 10/31/16 00:12 Dose: 5 mg Multi-Ingredient Ointment (Hydrophor Oint) 0 gm TOP Q6H [facility] Last Admin: 11/06/16 02:40 Dose: Not Given Ondansetron HCl (Zofran Inj) 4 mg IVP Q4H PRN PRN Reason: Nausea/Vomiting Last Admin: 10/29/16 20:46 Dose: 4 mg Pantoprazole Sodium (Protonix Inj) 40 mg IVP DAILY [facility] Last Admin: 11/05/16 09:32 Dose: 40 mg Petrolatum (Desitin Maximum Strength Topical 40% Oint) 1 gm TOP Q4H PRN PRN Reason: Rash Last Admin: 10/23/16 22:39 Dose: 1 applic Propranolol HCl (Inderal La) 120 mg PO DAILY [facility] Last Admin: 11/05/16 09:34 Dose: 120 mg Sucralfate (Carafate Oral Susp) 1 gm PO BID [facility] Last Admin: 11/05/16 17:34 Dose: Not Given Tobramycin Sulfate (Tobrex 0.3% Ophth Soln) 1 drop OU QID [facility] Last Admin: 11/05/16 21:32 Dose: 1 drop Valganciclovir (Valcyte) 900 mg PO DAILY [facility] Last Admin: 11/05/16 09:34 Dose: 900 mg - Labs Labs: 11/05/16 07:00 11/05/16 07:00 PT 13.6 Seconds (9.9-11.8) H 10/26/16 06:24 INR 1.26 (0.93-1.08) H 10/26/16 06:24 APTT 33.1 Seconds (23.7-30.8) H 10/26/16 06:24 - Constitutional Appears: Chronically Ill, No Acute Distress - Head Exam Head Exam: ATRAUMATIC, NORMOCEPHALIC - ENT Exam ENT Exam: Mucous Membranes Moist, Normal Oropharynx - Respiratory Exam Respiratory Exam: NORMAL BREATHING PATTERN. absent: Accessory Muscle Use, Respiratory Distress - Cardiovascular Exam Cardiovascular Exam: RRR - GI/Abdominal Exam GI & Abdominal Exam: Soft, absent: Distended, Tenderness - Extremities Exam Extremities Exam: absent: Calf Tenderness, Pedal Edema, Tenderness - Neurological Exam Neurological Exam: Awake, Oriented x3 - Skin Skin Exam: Dry, Normal Color, Warm Assessment and Plan - Assessment and Plan (Free Text) Assessment: 61 year old female with end stage stage IV colon CA with lower GI bleeding resulting in symptomatic anemia from ulcerated sigmoid mass for which we were consulted. Plan: Medical team currently managing patient's multiple medical problems, is now end stage colon CA with a guarded prognosis Hgb for today pending, will f/u Will likely need colostomy for colonic strictures and ulcerated sigmoid mass but needs medical optimizations Cont sacral wound care by nursing staff We will continue to follow Will discuss with attending physicians. Thank you for the pleasure of participating in the care of this interesting patient. <Yoan Mccracken - Last Filed: 12/02/16 23:50> Objective - Vital Signs/Intake and Output Vital Signs (last 24 hours): Temp Pulse Resp BP Pulse Ox 97.8 F 101 H 18 170/89 H 100 12/02/16 16:00 12/02/16 16:00 12/02/16 16:00 12/02/16 16:00 12/02/16 16:00 Intake and Output: 12/02/16 12/03/16 18:59 06:59 Intake Total 120 Output Total 450 600 Balance -450 -480 - Medications Medications: Current Medications Acetaminophen (Tylenol 650 Mg Supp) 650 mg RC Q4H PRN PRN Reason: Fever >100.4 F Last Admin: 11/01/16 21:18 Dose: 650 mg Al Hydrox/Mg Hydrox/Simethicone 30 ml/Diphenhydramine HCl 75 mg/Lidocaine 30 ml 0 ml PO QID [facility] Last Admin: 12/02/16 21:01 Dose: Not Given Diphenhydramine HCl (Benadryl) 50 mg IVP HS PRN PRN Reason: Insomnia Last Admin: 11/27/16 01:00 Dose: 50 mg Ergocalciferol (Drisdol 50,000 Intl Units Cap) 1 cap PO Q7D [facility] Last Admin: 11/19/16 18:04 Dose: Not Given Ferrous Sulfate (Feosol) 324 mg PO TID [facility] Last Admin: 12/02/16 18:16 Dose: Not Given Fluconazole (Diflucan) 200 mg PO DAILY [facility] PRN Reason: Protocol Stop: 12/12/16 10:01 Last Admin: 12/02/16 09:44 Dose: Not Given Home Med (Home Med) 1 unit PO Q12H PRN PRN Reason: Inflammation Last Admin: 10/18/16 11:03 Dose: 1 unit Hydralazine HCl (Apresoline) 10 mg IVP Q4H PRN PRN Reason: Systolic Blood Pressure Hydromorphone HCl (Dilaudid) 1 mg IVP Q1H PRN PRN Reason: Pain, moderate (4-7) Last Admin: 12/02/16 21:06 Dose: 1 mg Levetiracetam (Keppra 500mg Ivpb) 500 mg in 100 mls @ 400 mls/hr IV Q12 [facility] Last Admin: 12/02/16 21:06 Dose: 400 mls/hr Potassium Chloride/Dextrose (Potassium Chl 40 Meq In D5w) 1,000 mls @ 60 mls/ hr IV .[id number] [facility] Last Admin: 12/02/16 18:17 Dose: Not Given Magnesium Hydroxide (Milk Of Magnesia) 30 ml PO DAILY PRN PRN Reason: skin irritation Last Admin: 12/02/16 14:09 Dose: 30 ml Magnesium Oxide (Mag-Ox) 400 mg PO BID [facility] Last Admin: 12/02/16 18:16 Dose: Not Given Multi-Ingredient Ointment (Hydrophor Oint) 0 gm TOP Q6H PRN PRN Reason: Dry lip Multivitamins (Thera Tab) 1 tab PO 0800 [facility] Last Admin: 12/02/16 08:10 Dose: Not Given Propranolol HCl (Inderal La) 120 mg PO DAILY [facility] Last Admin: 12/02/16 09:44 Dose: Not Given Sucralfate (Carafate Oral Susp) 1 gm PO BID [facility] Last Admin: 12/02/16 18:16 Dose: Not Given - Labs Labs: 12/02/16 06:00 12/02/16 06:00 PT 12.9 Seconds (9.9-11.8) H 12/02/16 06:00 INR 1.19 (0.93-1.08) H 12/02/16 06:00 APTT 32.9 Seconds (23.7-30.8) H 12/02/16 06:00 Assessment and Plan - Assessment and Plan (Free Text) Plan: Patient was seen and examined by me. I agree with assessment and plan as per resident's note.
[2016-11-06] MEDS ORDERED: HYDROmorphone 2 mg/ml ISec IVP STA (08:36)
[2016-11-06 08:58] LABS: ALBUMIN 1.9 g/dL (3.0-4.8); CALCIUM 7.6 mg/dL (8.4-10.5)
[2016-11-06] MEDS ORDERED: DiphenhydrAMINE 50 mg/ml Inj IVP ONE (09:15)
[2016-11-06 09:34] LABS: ALB/GLOB RATIO 0.8 (1.1-1.8)
[2016-11-06] MEDS: Propranolol 60 mg ER Cap PO SCH (10:01)
[2016-11-06] MEDS: Sucralfate 1 gm/10 ml Oral Susp UD PO SCH ×2 (10:01→18:40)
[2016-11-06] MEDS: Bismuth Subsalicylate 262 mg/15 ml Sus (240 ml) PO SCH ×2 (10:02→18:39)
[2016-11-06] MEDS: Collagenase 250 Units/gm Ointment(30 gm) TOP SCH ×2 (10:04→21:20)
[2016-11-06] MEDS: Tobramycin 0.3% OPHT SOLN OU SCH ×4 (10:04→22:50)
[2016-11-06] MEDS: Micafungin 100 MG in Sodium Chloride 0.9% 100 ML IV SCH (10:11)
[2016-11-06] MEDS: HYDROmorphone 2 mg/ml ISec IVP PRN ×3 (13:03→21:18)
--- NOTE | 2016-11-06 14:02 | CP.PCM.PN ---
Subjective - Date & Time of Evaluation Date of Evaluation: 11/06/16 Time of Evaluation: 10:00 - Subjective Subjective: lethargic,offers no complaints. Objective - Vital Signs/Intake and Output Vital Signs (last 24 hours): Temp Pulse Resp BP Pulse Ox 97.9 F 104 H 21 116/76 99 11/06/16 13:25 11/06/16 13:25 11/06/16 13:25 11/06/16 13:25 11/05/16 16:00 Intake and Output: 11/06/16 11/06/16 06:59 18:59 Intake Total 120 0 Output Total 2200 Balance -2080 0 - Medications Medications: Current Medications Acetaminophen (Tylenol 650 Mg Supp) 650 mg RC Q4H PRN PRN Reason: Fever >100.4 F Last Admin: 11/01/16 21:18 Dose: 650 mg Acetaminophen (Tylenol 650mg/20.3ml Solution Ud) 650 mg PO Q4 PRN PRN Reason: Fever >100.4 F Bismuth Subsalicylate (Pepto-Bismol) 262 mg PO BID [facility] Last Admin: 11/06/16 10:02 Dose: Not Given Collagenase (Santyl) 1 gm TOP BID [facility] Last Admin: 11/06/16 10:04 Dose: 1 applic Al Hydrox/Mg Hydrox/Simethicone 30 ml/Diphenhydramine HCl 75 mg/Lidocaine 30 ml 0 ml PO Q2H PRN PRN Reason: Mouth/Throat Pain Last Admin: 11/03/16 22:47 Dose: 30 ml Diphenhydramine HCl (Benadryl) 25 mg IVP Q4H PRN PRN Reason: Allergy symptoms Last Admin: 11/05/16 18:27 Dose: 25 mg Ergocalciferol (Drisdol 50,000 Intl Units Cap) 1 cap PO Q7D [facility] Last Admin: 11/05/16 14:21 Dose: 1 cap Furosemide (Lasix) 20 mg IVP Q12 [facility] Last Admin: 11/06/16 10:13 Dose: Not Given Home Med (Home Med) 1 unit PO Q12H PRN PRN Reason: Inflammation Last Admin: 10/18/16 11:03 Dose: 1 unit Hydralazine HCl (Apresoline) 10 mg PO Q6H PRN PRN Reason: SBP >170 Last Admin: 11/04/16 18:04 Dose: 10 mg Hydromorphone HCl (Dilaudid) 2 mg IVP Q4H PRN PRN Reason: Pain, severe (8-10) Last Admin: 11/06/16 13:03 Dose: 2 mg Micafungin Sodium 100 mg/ (Sodium Chloride) 100 mls @ 100 mls/hr IV DAILY [facility] PRN Reason: Protocol Stop: 11/18/16 11:00 Last Admin: 11/06/16 10:11 Dose: 100 mls/hr Chromium/Copper/Manganese/Zinc 1 ml/ Multivitamins/Vitamin C 10 ml/ Amino Acids 2,011 mls @ 83 mls/hr IV .Q24H [facility] Stop: 11/08/16 17:59 Last Admin: 11/05/16 17:45 Dose: 83 mls/hr Metoprolol Tartrate (Lopressor) 5 mg IVP Q6H PRN PRN Reason: Sustained HR > 130 Last Admin: 10/31/16 00:12 Dose: 5 mg Multi-Ingredient Ointment (Hydrophor Oint) 0 gm TOP Q6H [facility] Last Admin: 11/06/16 10:01 Dose: 1 applic Ondansetron HCl (Zofran Inj) 4 mg IVP Q4H PRN PRN Reason: Nausea/Vomiting Last Admin: 10/29/16 20:46 Dose: 4 mg Pantoprazole Sodium (Protonix Inj) 40 mg IVP DAILY [facility] Last Admin: 11/06/16 10:11 Dose: 40 mg Petrolatum (Desitin Maximum Strength Topical 40% Oint) 1 gm TOP Q4H PRN PRN Reason: Rash Last Admin: 10/23/16 22:39 Dose: 1 applic Propranolol HCl (Inderal La) 120 mg PO DAILY [facility] Last Admin: 11/06/16 10:01 Dose: Not Given Sucralfate (Carafate Oral Susp) 1 gm PO BID [facility] Last Admin: 11/06/16 10:01 Dose: Not Given Tobramycin Sulfate (Tobrex 0.3% Ophth Soln) 1 drop OU QID [facility] Last Admin: 11/06/16 10:04 Dose: Not Given Valganciclovir (Valcyte) 900 mg PO DAILY [facility] Last Admin: 11/06/16 10:04 Dose: Not Given - Labs Labs: 11/06/16 06:45 11/06/16 08:35 PT 13.6 Seconds (9.9-11.8) H 10/26/16 06:24 INR 1.26 (0.93-1.08) H 10/26/16 06:24 APTT 33.1 Seconds (23.7-30.8) H 10/26/16 06:24 - Constitutional Appears: Cachectic, Chronically Ill - Eye Exam Eye Exam: Normal appearance Pupil Exam: NORMAL ACCOMODATION - Respiratory Exam Respiratory Exam: Decreased Breath Sounds, NORMAL BREATHING PATTERN - Cardiovascular Exam Cardiovascular Exam: REGULAR RHYTHM, +S1, +S2 - GI/Abdominal Exam GI & Abdominal Exam: Soft, Tenderness - Extremities Exam Additional comments: bilateral lawer extremity edema - Skin Skin Exam: Dry, Pallor Assessment and Plan - Assessment and Plan (Free Text) Assessment: 61 year old female with history of metastatic colon cancer who is admitted with pancytopenia,mucositis, GI bleeding, sacral decubiti, anorexia, cachexia. I spoke at length with patient's sister about her understanding of patient's illness. Sister knows that patient has advanced cancer, sepsis and GI bleeding. She admits that her sister does not seem to be "getting better". I explained that despite medical interventions her sister may not recover. Sister does not seem to grasp the gravity of the situation. She is questioning when her sister can receive treatment for her cancer. I explained that due to infection and GI bleeding, she is to ill to receive chemotherapy. I spoke specifically about resuscitation concerns with her. I explained the burdens of aggressive resuscitation with CPR/intubation. I explained that instituting DNR/DNI would not prevent the patient from continuing current treatment plan. Sister states she will talk with her family regarding DNR/DNI. Time spent in advance care panning discussion with sister, 20 minutes Plan: Advance care planning
--- NOTE | 2016-11-06 17:46 | CP.PCM.PN ---
Subjective - Date & Time of Evaluation Date of Evaluation: 11/06/16 Time of Evaluation: 11:45 - Subjective Subjective: S&E earlier today. Sister at bedside. Patient is drowsy but arousable. Tolerated some liquid, not much. As per nursing staff patient with diarrhea that is black BM. Await blood tranfusion, hgb 6.6 Objective - Vital Signs/Intake and Output Vital Signs (last 24 hours): Temp Pulse Resp BP Pulse Ox 97.6 F 100 H 16 152/96 H 99 11/06/16 17:30 11/06/16 17:30 11/06/16 17:30 11/06/16 17:30 11/05/16 16:00 Intake and Output: 11/06/16 11/06/16 06:59 18:59 Intake Total 120 985 Output Total 2200 800 Balance -2080 185 - Medications Medications: Current Medications Acetaminophen (Tylenol 650 Mg Supp) 650 mg RC Q4H PRN PRN Reason: Fever >100.4 F Last Admin: 11/01/16 21:18 Dose: 650 mg Acetaminophen (Tylenol 650mg/20.3ml Solution Ud) 650 mg PO Q4 PRN PRN Reason: Fever >100.4 F Bismuth Subsalicylate (Pepto-Bismol) 262 mg PO BID [facility] Last Admin: 11/06/16 10:02 Dose: Not Given Collagenase (Santyl) 1 gm TOP BID [facility] Last Admin: 11/06/16 10:04 Dose: 1 applic Al Hydrox/Mg Hydrox/Simethicone 30 ml/Diphenhydramine HCl 75 mg/Lidocaine 30 ml 0 ml PO Q2H PRN PRN Reason: Mouth/Throat Pain Last Admin: 11/03/16 22:47 Dose: 30 ml Diphenhydramine HCl (Benadryl) 25 mg IVP Q4H PRN PRN Reason: Allergy symptoms Last Admin: 11/05/16 18:27 Dose: 25 mg Ergocalciferol (Drisdol 50,000 Intl Units Cap) 1 cap PO Q7D [facility] Last Admin: 11/05/16 14:21 Dose: 1 cap Furosemide (Lasix) 20 mg IVP Q12 [facility] Last Admin: 11/06/16 10:13 Dose: Not Given Home Med (Home Med) 1 unit PO Q12H PRN PRN Reason: Inflammation Last Admin: 10/18/16 11:03 Dose: 1 unit Hydralazine HCl (Apresoline) 10 mg PO Q6H PRN PRN Reason: SBP >170 Last Admin: 11/04/16 18:04 Dose: 10 mg Hydromorphone HCl (Dilaudid) 2 mg IVP Q4H PRN PRN Reason: Pain, severe (8-10) Last Admin: 11/06/16 17:23 Dose: 2 mg Micafungin Sodium 100 mg/ (Sodium Chloride) 100 mls @ 100 mls/hr IV DAILY [facility] PRN Reason: Protocol Stop: 11/18/16 11:00 Last Admin: 11/06/16 10:11 Dose: 100 mls/hr Chromium/Copper/Manganese/Zinc 1 ml/ Multivitamins/Vitamin C 10 ml/ Amino Acids 2,011 mls @ 83 mls/hr IV .Q24H [facility] Stop: 11/08/16 17:59 Last Admin: 11/05/16 17:45 Dose: 83 mls/hr Metoprolol Tartrate (Lopressor) 5 mg IVP Q6H PRN PRN Reason: Sustained HR > 130 Last Admin: 10/31/16 00:12 Dose: 5 mg Multi-Ingredient Ointment (Hydrophor Oint) 0 gm TOP Q6H [facility] Last Admin: 11/06/16 10:01 Dose: 1 applic Ondansetron HCl (Zofran Inj) 4 mg IVP Q4H PRN PRN Reason: Nausea/Vomiting Last Admin: 10/29/16 20:46 Dose: 4 mg Pantoprazole Sodium (Protonix Inj) 40 mg IVP DAILY [facility] Last Admin: 11/06/16 10:11 Dose: 40 mg Petrolatum (Desitin Maximum Strength Topical 40% Oint) 1 gm TOP Q4H PRN PRN Reason: Rash Last Admin: 10/23/16 22:39 Dose: 1 applic Propranolol HCl (Inderal La) 120 mg PO DAILY [facility] Last Admin: 11/06/16 10:01 Dose: Not Given Sucralfate (Carafate Oral Susp) 1 gm PO BID [facility] Last Admin: 11/06/16 10:01 Dose: Not Given Tobramycin Sulfate (Tobrex 0.3% [facility] Soln) 1 drop OU QID [facility] Last Admin: 11/06/16 15:21 Dose: Not Given Valganciclovir (Valcyte) 900 mg PO DAILY [facility] Last Admin: 11/06/16 10:04 Dose: Not Given - Labs Labs: 11/06/16 06:45 11/06/16 08:35 PT 13.6 Seconds (9.9-11.8) H 10/26/16 06:24 INR 1.26 (0.93-1.08) H 10/26/16 06:24 APTT 33.1 Seconds (23.7-30.8) H 10/26/16 06:24 - Head Exam Head Exam: NORMAL INSPECTION - Eye Exam Eye Exam: Normal appearance. absent: Scleral icterus - ENT Exam ENT Exam: Mucous Membranes Dry - Neck Exam Neck Exam: Normal Inspection - Respiratory Exam Respiratory Exam: NORMAL BREATHING PATTERN. absent: Respiratory Distress - Cardiovascular Exam Cardiovascular Exam: +S1, +S2 - GI/Abdominal Exam GI & Abdominal Exam: Soft, Tenderness, Normal Bowel Sounds. absent: Guarding, Rebound - Extremities Exam Extremities Exam: Pedal Edema - Neurological Exam Neurological Exam: Awake - Skin Skin Exam: Pallor (upper and LE edema) Assessment and Plan - Assessment and Plan (Free Text) Assessment: ASSESSMENT: Stage IV colon cancer with metastasis to the bone Severe anemia, status post multiple blood transfusions GIB Acute renal failure Esophagitis with ulcerations, BX negative for CMV Bacteremia, Fungemia with Susy Diarrhea, s/p sandostatin/ Codeine Decubitus ulcers S/P flex sigmoidoscopy,still showed the stricture in the sigmoid colon PLAN: PPI clear liquid Carafate for blood transfusion family request second opinion on PPN monitor h/h, transfuse as needed. patient not optimal for surgical intervention now, on multiple antibiotics for bacteremia until infection clears. as per oncology The patient was seen and case discussed with Dr. Null.
--- NOTE | 2016-11-06 17:49 | CP.PCM.CON ---
History of Present Illness - History of Present Illness History of Present Illness: Asked to see as 2nd opinion by Dr. 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 Per records, the patient was diagnosed with colon cancer in 01/2014, resection in 05/2014 (stage III and deferred adjuvant chemotherapy), found to be metastatic in 07/[address]. She has colonic stricture and ulceration for which surgery is following but unable to surgical intervene due to active infection. Past medical history: Colon cancer Past surgical history: hemicolectomy, portacath Family history: Denies hematologic and oncologic problems Social history: Denies tobacco, alcohol, and illicit drug use. Allergies: IV contrast Review of systems: All remaining review of systems including HEENT, cardiovascular, respiratory, gastrointestinal, genitourinary, musculoskeletal, dermatologic, neurologic, and psychiatric are negative unless mentioned in the HPI. 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) - MUSCULOSKELETAL/RHEUMATOLOGICAL Hx Musculoskeletal Disorders: Yes Hx Back Pain: Yes Hx Falls: No - GASTROINTESTINAL Hx Gastroesophageal Reflux: Yes - GENITOURINARY/GYNECOLOGICAL Hx Genitourinary Disorders: Yes Hx Urinary Tract Infection: Yes - PSYCHIATRIC Hx Psychophysiologic Disorder: Yes Hx Anxiety: Yes Hx Substance Use: No - SURGICAL HISTORY Hx Surgeries: Yes (rcw pac) - ANESTHESIA Hx Anesthesia Reactions: No Hx Malignant Hyperthermia: No Meds Allergies/Adverse Reactions: Allergies Allergy/AdvReac Type Severity Reaction Status Date / Time IV CONTRAST Allergy Severe SHORTNESS Uncoded 10/06/16 18:13 OF BREATH CAF Allergy Intermediate PALPITATION Uncoded 10/06/16 18:13 S - Medications Medications: Current Medications Acetaminophen (Tylenol 650 Mg Supp) 650 mg RC Q4H PRN PRN Reason: Fever >100.4 F Last Admin: 11/01/16 21:18 Dose: 650 mg Acetaminophen (Tylenol 650mg/20.3ml Solution Ud) 650 mg PO Q4 PRN PRN Reason: Fever >100.4 F Bismuth Subsalicylate (Pepto-Bismol) 262 mg PO BID [facility] Last Admin: 11/06/16 10:02 Dose: Not Given Collagenase (Santyl) 1 gm TOP BID [facility] Last Admin: 11/06/16 10:04 Dose: 1 applic Al Hydrox/Mg Hydrox/Simethicone 30 ml/Diphenhydramine HCl 75 mg/Lidocaine 30 ml 0 ml PO Q2H PRN PRN Reason: Mouth/Throat Pain Last Admin: 11/03/16 22:47 Dose: 30 ml Diphenhydramine HCl (Benadryl) 25 mg IVP Q4H PRN PRN Reason: Allergy symptoms Last Admin: 11/05/16 18:27 Dose: 25 mg Ergocalciferol (Drisdol 50,000 Intl Units Cap) 1 cap PO Q7D [facility] Last Admin: 11/05/16 14:21 Dose: 1 cap Furosemide (Lasix) 20 mg IVP Q12 [facility] Last Admin: 11/06/16 10:13 Dose: Not Given Home Med (Home Med) 1 unit PO Q12H PRN PRN Reason: Inflammation Last Admin: 10/18/16 11:03 Dose: 1 unit Hydralazine HCl (Apresoline) 10 mg PO Q6H PRN PRN Reason: SBP >170 Last Admin: 11/04/16 18:04 Dose: 10 mg Hydromorphone HCl (Dilaudid) 2 mg IVP Q4H PRN PRN Reason: Pain, severe (8-10) Last Admin: 11/06/16 13:03 Dose: 2 mg Micafungin Sodium 100 mg/ (Sodium Chloride) 100 mls @ 100 mls/hr IV DAILY [facility] PRN Reason: Protocol Stop: 11/18/16 11:00 Last Admin: 11/06/16 10:11 Dose: 100 mls/hr Chromium/Copper/Manganese/Zinc 1 ml/ Multivitamins/Vitamin C 10 ml/ Amino Acids 2,011 mls @ 83 mls/hr IV .Q24H [facility] Stop: 11/08/16 17:59 Last Admin: 11/05/16 17:45 Dose: 83 mls/hr Metoprolol Tartrate (Lopressor) 5 mg IVP Q6H PRN PRN Reason: Sustained HR > 130 Last Admin: 10/31/16 00:12 Dose: 5 mg Multi-Ingredient Ointment (Hydrophor Oint) 0 gm TOP Q6H [facility] Last Admin: 11/06/16 10:01 Dose: 1 applic Ondansetron HCl (Zofran Inj) 4 mg IVP Q4H PRN PRN Reason: Nausea/Vomiting Last Admin: 10/29/16 20:46 Dose: 4 mg Pantoprazole Sodium (Protonix Inj) 40 mg IVP DAILY [facility] Last Admin: 11/06/16 10:11 Dose: 40 mg Petrolatum (Desitin Maximum Strength Topical 40% Oint) 1 gm TOP Q4H PRN PRN Reason: Rash Last Admin: 10/23/16 22:39 Dose: 1 applic Propranolol HCl (Inderal La) 120 mg PO DAILY [facility] Last Admin: 11/06/16 10:01 Dose: Not Given Sucralfate (Carafate Oral Susp) 1 gm PO BID [facility] Last Admin: 11/06/16 10:01 Dose: Not Given Tobramycin Sulfate (Tobrex 0.3% Ophth Soln) 1 drop OU QID [facility] Last Admin: 11/06/16 15:21 Dose: Not Given Valganciclovir (Valcyte) 900 mg PO DAILY [facility] Last Admin: 11/06/16 10:04 Dose: Not Given Physical Exam - Head Exam Head Exam: ATRAUMATIC - ENT Exam ENT Exam: Mucous Membranes Dry - Respiratory Exam Respiratory Exam: NORMAL BREATHING PATTERN - Cardiovascular Exam Cardiovascular Exam: +S1, +S2 - GI/Abdominal Exam GI & Abdominal Exam: Normal Bowel Sounds - Extremities Exam Additional comments: desquamation of palms - Neurological Exam Neurological exam: Oriented x3 - Psychiatric Exam Psychiatric exam: Depressed - Skin Skin Exam: Warm Results - Vital Signs Recent Vital Signs: Last Vital Signs Temp 97.9 F 11/06/16 15:30 Pulse 100 H 06/27/17 15:30 Resp 19 11/06/16 15:30 BP 132/75 11/06/16 15:30 Pulse Ox 99 11/05/16 16:00 - Labs Result Diagrams: 11/06/16 06:45 11/06/16 08:35 Labs: Laboratory Results - last 24 hr 10/31/16 11/06/16 11/06/16 21:30 06:45 08:35 WBC 10.7 RBC 2.20 L Hgb 6.6 L* D Hct 19.8 L* MCV 90.0 MCH 30.0 MCHC 33.3 RDW 17.1 H Plt Count 59 L Gran % 88.6 H Lymph % (Auto) 7.6 L [place] % (Auto) 3.0 Eos % (Auto) 0.7 L Baso % (Auto) 0.1 Gran # 9.49 H Lymph # 0.8 L [place] # 0.3 Eos # 0.1 Baso # 0.01 Sodium 141 Potassium 4.1 Chloride 110 Carbon Dioxide 22 Anion Gap 13 BUN 119 H Creatinine 1.5 H Est GFR ( Amer) 42 Est GFR (Non-Af Amer) 35 Random Glucose 142 H Calcium 7.6 L Total Bilirubin 3.3 H AST 13 L ALT 27 Alkaline Phosphatase 119 Total Protein 4.4 L Albumin 1.9 L Globulin 2.5 Albumin/Globulin Ratio 0.8 L Blood Type Antibody Screen Crossmatch See Detail BBK History Checked 11/06/16 09:05 WBC RBC Hgb Hct MCV MCH MCHC RDW Plt Count Gran % Lymph % (Auto) [place] % (Auto) Eos % (Auto) Baso % (Auto) Gran # Lymph # [place] # Eos # Baso # Sodium Potassium Chloride Carbon Dioxide Anion Gap BUN Creatinine Est GFR ( Amer) Est GFR (Non-Af Amer) Random Glucose Calcium Total Bilirubin AST ALT Alkaline Phosphatase Total Protein Albumin Globulin Albumin/Globulin Ratio Blood Type A POSITIVE Antibody Screen Negative Crossmatch See Detail BBK History Checked Patient has bt Assessment & Plan (1) Anemia Assessment and Plan: pt having episodes of hematochezia per pt and nursing; rising uremia ?gi blood loss transfusion support PRN will check iron, b12, folate stores Status: Acute (2) Thrombocytopenia Assessment and Plan: low but fairly stable in the last week element of plt dysfunction from uremia cont. to monitor Status: Acute (3) Coagulopathy Assessment and Plan: will repeat coags and add fibrinogen Status: Acute (4) Colon cancer Assessment and Plan: stage IV s/p [id number] + Avastin end of 09/2016 supportive care I have had an at length discussion with the pt, her sister and mother in regards to treatment of stage IV cancer. We discussed supportive care, the need for the pt to improve her nutritional status, and continued treatment of active infections and cytopenias. We discussed that any improvements would be slow and the possibility for further decline are a possibility. They asked if chemotherapy would be appropriate and I explained that it would cause more harm than good at this point. Thank you for this interesting consult. Status: Acute
[2016-11-06] MEDS: DiphenhydrAMINE 50 mg/ml Inj IVP PRN (21:20)
[2016-11-06] MEDS: TRACE ELEMENTS IV SCH (21:21)
[2016-11-06] MEDS: DEXT IV SCH (21:21)
[2016-11-06] MEDS: MULTIVITAMIN IV SCH (21:21)
[2016-11-06] MEDS: AMINO IV SCH (21:21)
[2016-11-06] MEDS: [UNRECOGNIZED DRUG - OTHER] IV SCH (21:21)
--- NOTE | 2016-11-06 23:50 | CP.PCM.PN ---
Subjective - Date & Time of Evaluation Date of Evaluation: 11/06/16 Time of Evaluation: 10:00 - Subjective Subjective: DOING POORLY Objective - Vital Signs/Intake and Output Vital Signs (last 24 hours): Temp Pulse Resp BP Pulse Ox 97.0 F L 100 H 15 125/80 100 11/06/16 20:38 11/06/16 20:38 11/06/16 20:38 11/06/16 21:19 11/06/16 16:00 Intake and Output: 11/06/16 11/07/16 18:59 06:59 Intake Total 985 685 Output Total 800 400 Balance 185 285 - Medications Medications: Current Medications Acetaminophen (Tylenol 650 Mg Supp) 650 mg RC Q4H PRN PRN Reason: Fever >100.4 F Last Admin: 11/01/16 21:18 Dose: 650 mg Acetaminophen (Tylenol 650mg/20.3ml Solution Ud) 650 mg PO Q4 PRN PRN Reason: Fever >100.4 F Bismuth Subsalicylate (Pepto-Bismol) 262 mg PO BID [facility] Last Admin: 11/06/16 18:39 Dose: Not Given Collagenase (Santyl) 1 gm TOP BID [facility] Last Admin: 11/06/16 21:20 Dose: 1 applic Al Hydrox/Mg Hydrox/Simethicone 30 ml/Diphenhydramine HCl 75 mg/Lidocaine 30 ml 0 ml PO Q2H PRN PRN Reason: Mouth/Throat Pain Last Admin: 11/03/16 22:47 Dose: 30 ml Diphenhydramine HCl (Benadryl) 25 mg IVP Q4H PRN PRN Reason: Allergy symptoms Last Admin: 11/06/16 21:20 Dose: 25 mg Ergocalciferol (Drisdol 50,000 Intl Units Cap) 1 cap PO Q7D [facility] Last Admin: 11/05/16 14:21 Dose: 1 cap Furosemide (Lasix) 20 mg IVP Q12 [facility] Last Admin: 11/06/16 21:19 Dose: 20 mg Home Med (Home Med) 1 unit PO Q12H PRN PRN Reason: Inflammation Last Admin: 10/18/16 11:03 Dose: 1 unit Hydralazine HCl (Apresoline) 10 mg PO Q6H PRN PRN Reason: SBP >170 Last Admin: 11/04/16 18:04 Dose: 10 mg Hydromorphone HCl (Dilaudid) 2 mg IVP Q4H PRN PRN Reason: Pain, severe (8-10) Last Admin: 11/06/16 21:18 Dose: 2 mg Micafungin Sodium 100 mg/ (Sodium Chloride) 100 mls @ 100 mls/hr IV DAILY [facility] PRN Reason: Protocol Stop: 11/18/16 11:00 Last Admin: 11/06/16 10:11 Dose: 100 mls/hr Chromium/Copper/Manganese/Zinc 1 ml/ Multivitamins/Vitamin C 10 ml/ Amino Acids 2,011 mls @ 83 mls/hr IV .Q24H [facility] Stop: 11/08/16 17:59 Last Admin: 11/06/16 21:21 Dose: 83 mls/hr Metoprolol Tartrate (Lopressor) 5 mg IVP Q6H PRN PRN Reason: Sustained HR > 130 Last Admin: 10/31/16 00:12 Dose: 5 mg Multi-Ingredient Ointment (Hydrophor Oint) 0 gm TOP Q6H [facility] Last Admin: 11/06/16 21:15 Dose: 1 applic Ondansetron HCl (Zofran Inj) 4 mg IVP Q4H PRN PRN Reason: Nausea/Vomiting Last Admin: 10/29/16 20:46 Dose: 4 mg Pantoprazole Sodium (Protonix Inj) 40 mg IVP DAILY [facility] Last Admin: 11/06/16 10:11 Dose: 40 mg Petrolatum (Desitin Maximum Strength Topical 40% Oint) 1 gm TOP Q4H PRN PRN Reason: Rash Last Admin: 10/23/16 22:39 Dose: 1 applic Propranolol HCl (Inderal La) 120 mg PO DAILY [facility] Last Admin: 11/06/16 10:01 Dose: Not Given Sucralfate (Carafate Oral Susp) 1 gm PO BID [facility] Last Admin: 11/06/16 18:40 Dose: Not Given Tobramycin Sulfate (Tobrex 0.3% Ophth Soln) 1 drop OU QID [facility] Last Admin: 11/06/16 18:39 Dose: Not Given Valganciclovir (Valcyte) 900 mg PO DAILY [facility] Last Admin: 11/06/16 10:04 Dose: Not Given - Labs Labs: 11/06/16 06:45 11/06/16 08:35 PT 13.6 Seconds (9.9-11.8) H 10/26/16 06:24 INR 1.26 (0.93-1.08) H 10/26/16 06:24 APTT 33.1 Seconds (23.7-30.8) H 10/26/16 06:24 - Constitutional Appears: Well - Head Exam Head Exam: ATRAUMATIC, NORMAL INSPECTION, NORMOCEPHALIC - Eye Exam Eye Exam: EOMI, Normal appearance, PERRL Pupil Exam: NORMAL ACCOMODATION, PERRL - ENT Exam ENT Exam: Mucous Membranes Moist, Normal Exam - Neck Exam Neck Exam: Full ROM, Normal Inspection. absent: Lymphadenopathy - Respiratory Exam Respiratory Exam: Clear to Ausculation Bilateral, NORMAL BREATHING PATTERN - Cardiovascular Exam Cardiovascular Exam: REGULAR RHYTHM, +S1, +S2. absent: Murmur - GI/Abdominal Exam GI & Abdominal Exam: Soft, Normal Bowel Sounds. absent: Tenderness - Rectal Exam Rectal Exam: NORMAL INSPECTION - Exam Exam: Circumcision, NORMAL INSPECTION External exam: NORMAL EXTERNAL EXAM Speculum exam: NORMAL SPECULUM EXAM Bimanual exam: NORMAL BIMANUAL EXAM - Extremities Exam Extremities Exam: Full ROM, Normal Capillary Refill, Normal Inspection. absent : Joint Swelling, Pedal Edema - Back Exam Back Exam: NORMAL INSPECTION - Neurological Exam Neurological Exam: Alert, Awake, CN II-XII Intact, Normal Gait, Oriented x3 - Psychiatric Exam Psychiatric exam: Normal Affect, Normal Mood - Skin Skin Exam: Dry, Intact, Normal Color, Warm Assessment and Plan (1) Metastasis from colon cancer Status: Acute - Assessment and Plan (Free Text) Assessment: SEPSIS WITH FUNGEMIA Plan: MYCOMINE
[2016-11-07] MEDS: DiphenhydrAMINE 50 mg/ml Inj IVP PRN (01:54)
[2016-11-07] MEDS: HYDROmorphone 2 mg/ml ISec IVP PRN ×3 (01:54→09:32)
--- NOTE | 2016-11-07 02:08 | CP.PCM.PN ---
Subjective - Date & Time of Evaluation Date of Evaluation: 11/07/16 Time of Evaluation: 02:03 - Subjective Subjective: S: Patient was seen at bedside with nurse Candie as per whom arm was swollen and there was leak, swelling of arm. Inspected the site. Arm and forearme distal to PICC line is swollen. After tying tourniquet proximal to PICC line insertion , we tried to look for blood return which we were able to see. Patient has no acute symptoms at this time. Pertinent medical record was reviewed. O: Last Vital Signs 3 Temp 97.0 F L 11/06/16 20:38 Pulse 100 H 11/06/16 20:38 Resp 15 11/06/16 20:38 BP 125/80 11/06/16 21:19 Pulse Ox 100 11/06/16 16:00 Alert, awake. LUNGS: Normal breathing pattern. EXT: Left upper arm distal to PICC line and forearm are swollen. A:LUE edema secondary to extravasation of IV fluid? P:Blood return from PICC line was confirmed . Will continue using PICC line. Objective - Vital Signs/Intake and Output Vital Signs (last 24 hours): Temp Pulse Resp BP Pulse Ox 97.0 F L 100 H 15 125/80 100 11/06/16 20:38 11/06/16 20:38 11/06/16 20:38 11/06/16 21:19 11/06/16 16:00 Intake and Output: 11/06/16 11/07/16 18:59 06:59 Intake Total 985 685 Output Total 800 400 Balance 185 285 - Medications Medications: Current Medications Acetaminophen (Tylenol 650 Mg Supp) 650 mg RC Q4H PRN PRN Reason: Fever >100.4 F Last Admin: 11/01/16 21:18 Dose: 650 mg Acetaminophen (Tylenol 650mg/20.3ml Solution Ud) 650 mg PO Q4 PRN PRN Reason: Fever >100.4 F Bismuth Subsalicylate (Pepto-Bismol) 262 mg PO BID [facility] Last Admin: 11/06/16 18:39 Dose: Not Given Collagenase (Santyl) 1 gm TOP BID [facility]PL[facility] BY [facility] Last Admin: 11/06/16 21:20 Dose: 1 applic Al Hydrox/Mg Hydrox/Simethicone 30 ml/Diphenhydramine HCl 75 mg/Lidocaine 30 ml 0 ml PO Q2H PRN PRN Reason: Mouth/Throat Pain Last Admin: 11/03/16 22:47 Dose: 30 ml Diphenhydramine HCl (Benadryl) 25 mg IVP Q4H PRN PRN Reason: Allergy symptoms Last Admin: 11/07/16 01:54 Dose: 25 mg Ergocalciferol (Drisdol 50,000 Intl Units Cap) 1 cap PO Q7D [facility]PL[facility] BY [facility] Last Admin: 11/05/16 14:21 Dose: 1 cap Furosemide (Lasix) 20 mg IVP Q12 [facility] BY [facility] Last Admin: 11/06/16 21:19 Dose: 20 mg Home Med (Home Med) 1 unit PO Q12H PRN PRN Reason: Inflammation Last Admin: 10/18/16 11:03 Dose: 1 unit Hydralazine HCl (Apresoline) 10 mg PO Q6H PRN PRN Reason: SBP >170 Last Admin: 11/04/16 18:04 Dose: 10 mg Hydromorphone HCl (Dilaudid) 2 mg IVP Q4H PRN PRN Reason: Pain, severe (8-10) Last Admin: 11/07/16 01:54 Dose: 2 mg Micafungin Sodium 100 mg/ (Sodium Chloride) 100 mls @ 100 mls/hr IV DAILY [facility] PRN Reason: Protocol Stop: 11/18/16 11:00 Last Admin: 11/06/16 10:11 Dose: 100 mls/hr Chromium/Copper/Manganese/Zinc 1 ml/ Multivitamins/Vitamin C 10 ml/ Amino Acids 2,011 mls @ 83 mls/hr IV .Q24H REPLACED BY [facility] Stop: 11/08/16 17:59 Last Admin: 11/06/16 21:21 Dose: 83 mls/hr Metoprolol Tartrate (Lopressor) 5 mg IVP Q6H PRN PRN Reason: Sustained HR > 130 Last Admin: 10/31/16 00:12 Dose: 5 mg Multi-Ingredient Ointment (Hydrophor Oint) 0 gm TOP Q6H REPLACED BY [facility] Last Admin: 11/06/16 21:15 Dose: 1 applic Ondansetron HCl (Zofran Inj) 4 mg IVP Q4H PRN PRN Reason: Nausea/Vomiting Last Admin: 10/29/16 20:46 Dose: 4 mg Pantoprazole Sodium (Protonix Inj) 40 mg IVP DAILY [facility]PL[facility] BY [facility] Last Admin: 11/06/16 10:11 Dose: 40 mg Petrolatum (Desitin Maximum Strength Topical 40% Oint) 1 gm TOP Q4H PRN PRN Reason: Rash Last Admin: 10/23/16 22:39 Dose: 1 applic Propranolol HCl (Inderal La) 120 mg PO DAILY [facility]PL[facility] BY [facility] Last Admin: 11/06/16 10:01 Dose: Not Given Sucralfate (Carafate Oral Susp) 1 gm PO BID REPLACED BY [facility] Last Admin: 11/06/16 18:40 Dose: Not Given Tobramycin Sulfate (Tobrex 0.3% [facility] Soln) 1 drop OU QID REPLACED BY [facility] Last Admin: 11/06/16 22:50 Dose: Not Given Valganciclovir (Valcyte) 900 mg PO DAILY REPLACED BY [facility] Last Admin: 11/06/16 10:04 Dose: Not Given - Labs Labs: 11/06/16 06:45 11/06/16 08:35 PT 13.6 Seconds (9.9-11.8) H 10/26/16 06:24 INR 1.26 (0.93-1.08) H 10/26/16 06:24 APTT 33.1 Seconds (23.7-30.8) H 10/26/16 06:24
[2016-11-07] MEDS: Petrolatum-Mineral Oil Oint (100gm) TOP SCH ×4 (04:05→22:06)
[2016-11-07 07:43] LABS: ALB/GLOB RATIO 0.7 (1.1-1.8); ALBUMIN 1.8 g/dL (3.0-4.8)
[2016-11-07 07:44] LABS: INR 1.36 (0.93-1.08); PARTIAL THROMBOPLASTIN TIME 33.1 Seconds (23.7-30.8); PROTHROMBIN TIME 14.7 Seconds (9.9-11.8)
[2016-11-07 08:10] LABS: FIBRINOGEN 337.8 mg/dL (187-400)
[2016-11-07] MEDS: Aluminum Hydroxide/Magnesium 30 ML, DiphenhydrAMINE 75 MG, Lidocaine 2% Viscous 30 ML PO PRN (09:00)
[2016-11-07 09:39] LABS: EOS # 0.1 (0.0-0.7); GRAN # 9.83 (1.4-6.5); GRAN % 91.7 % (50.0-68.0); HEMOGLOBIN 9.1 gm/dL (12.0-16.0); LYMPH # 0.4 (1.2-3.4); LYMPH % 4.1 % (22.0-35.0); MEAN CELL VOLUME 89.5 fL (80.0-105.0); MEAN CORPUSCULAR HEMOGLOBIN 30.7 pg (25.0-35.0); MEAN CORPUSCULAR HGB CONC 34.3 g/dl (31.0-37.0); MONO # 0.3 (0.1-0.6); MONO % 3.2 % (1.0-6.0); PLATELET COUNT 55 10^3/uL (120.0-450.0); RBC 2.96 10^6/uL (3.5-6.1); RED CELL DISTRIBUTION WIDTH 16.4 % (11.5-14.5); WHITE BLOOD COUNT 10.7 10^3/ul (4.5-11.0)
[2016-11-07] MEDS ORDERED: HYDROmorphone 2 mg/ml ISec IVP PRN (10:32)
[2016-11-07] MEDS ORDERED: Sodium Chloride 0.9% 1,000 ML IV SCH (10:45)
--- NOTE | 2016-11-07 10:51 | CP.PCM.PN ---
<Ludivina William - Last Filed: 11/07/16 10:46> Subjective - Date & Time of Evaluation Date of Evaluation: 11/07/16 Time of Evaluation: 07:25 - Subjective Subjective: General surgery progress note for Dr. Jeffers/Dr. Mccracken Patient seen and examined at bedside. Patient reports to be less tired today. Patient still complains of having diarrhea. Denies blood per rectum. She also denies headache, fever, chill,s shortness of breath, chest pain, nausea or vomiting. Objective - Vital Signs/Intake and Output Vital Signs (last 24 hours): Temp Pulse Resp BP Pulse Ox 97.7 F 105 H 20 154/94 H 99 11/07/16 08:30 11/07/16 08:30 11/07/16 08:30 11/07/16 08:30 11/07/16 08:30 Intake and Output: 11/07/16 11/07/16 06:59 18:59 Intake Total 745 Output Total 1600 Balance -855 - Medications Medications: Current Medications Acetaminophen (Tylenol 650 Mg Supp) 650 mg RC Q4H PRN PRN Reason: Fever >100.4 F Last Admin: 11/01/16 21:18 Dose: 650 mg Acetaminophen (Tylenol 650mg/20.3ml Solution Ud) 650 mg PO Q4 PRN PRN Reason: Fever >100.4 F Bismuth Subsalicylate (Pepto-Bismol) 262 mg PO BID [facility] Last Admin: 11/06/16 18:39 Dose: Not Given Collagenase (Santyl) 1 gm TOP BID [facility] Last Admin: 11/06/16 21:20 Dose: 1 applic Al Hydrox/Mg Hydrox/Simethicone 30 ml/Diphenhydramine HCl 75 mg/Lidocaine 30 ml 0 ml PO Q2H PRN PRN Reason: Mouth/Throat Pain Last Admin: 11/07/16 09:00 Dose: 15 ml Diphenhydramine HCl (Benadryl) 25 mg IVP Q4H PRN PRN Reason: Allergy symptoms Last Admin: 11/07/16 01:54 Dose: 25 mg Ergocalciferol (Drisdol 50,000 Intl Units Cap) 1 cap PO Q7D [facility] Last Admin: 11/05/16 14:21 Dose: 1 cap Furosemide (Lasix) 20 mg IVP Q12 [facility] Last Admin: 11/06/16 21:19 Dose: 20 mg Home Med (Home Med) 1 unit PO Q12H PRN PRN Reason: Inflammation Last Admin: 10/18/16 11:03 Dose: 1 unit Hydralazine HCl (Apresoline) 10 mg PO Q6H PRN PRN Reason: SBP >170 Last Admin: 11/04/16 18:04 Dose: 10 mg Hydromorphone HCl (Dilaudid) 1 mg IVP Q2H PRN PRN Reason: Pain, severe (8-10) Micafungin Sodium 100 mg/ (Sodium Chloride) 100 mls @ 100 mls/hr IV DAILY [facility] PRN Reason: Protocol Stop: 11/18/16 11:00 Last Admin: 11/06/16 10:11 Dose: 100 mls/hr Chromium/Copper/Manganese/Zinc 1 ml/ Multivitamins/Vitamin C 10 ml/ Amino Acids 2,011 mls @ 83 mls/hr IV .Q24H [facility] Stop: 11/08/16 17:59 Last Admin: 11/06/16 21:21 Dose: 83 mls/hr Sodium Chloride (Sodium Chloride 0.9%) 1,000 mls @ 60 mls/hr IV .[id number] [facility] Metoprolol Tartrate (Lopressor) 5 mg IVP Q6H PRN PRN Reason: Sustained HR > 130 Last Admin: 10/31/16 00:12 Dose: 5 mg Multi-Ingredient Ointment (Hydrophor Oint) 0 gm TOP Q6H [facility] Last Admin: 11/07/16 04:05 Dose: Not Given Ondansetron HCl (Zofran Inj) 4 mg IVP Q4H PRN PRN Reason: Nausea/Vomiting Last Admin: 10/29/16 20:46 Dose: 4 mg Pantoprazole Sodium (Protonix Inj) 40 mg IVP DAILY [facility] Last Admin: 11/06/16 10:11 Dose: 40 mg Petrolatum (Desitin Maximum Strength Topical 40% Oint) 1 gm TOP Q4H PRN PRN Reason: Rash Last Admin: 10/23/16 22:39 Dose: 1 applic Propranolol HCl (Inderal La) 120 mg PO DAILY [facility] Last Admin: 11/06/16 10:01 Dose: Not Given Sucralfate (Carafate Oral Susp) 1 gm PO BID [facility] Last Admin: 11/06/16 18:40 Dose: Not Given Tobramycin Sulfate (Tobrex 0.3% Ophth Soln) 1 drop OU QID [facility] Last Admin: 11/06/16 22:50 Dose: Not Given Valganciclovir (Valcyte) 900 mg PO DAILY [facility] Last Admin: 11/06/16 10:04 Dose: Not Given - Labs Labs: 11/07/16 07:00 11/07/16 07:00 PT 14.7 Seconds (9.9-11.8) H 11/07/16 07:00 INR 1.36 (0.93-1.08) H 11/07/16 07:00 APTT 33.1 Seconds (23.7-30.8) H 11/07/16 07:00 - Constitutional Appears: No Acute Distress, Chronically Ill - Head Exam Head Exam: ATRAUMATIC, NORMAL INSPECTION - Eye Exam Eye Exam: Normal appearance - ENT Exam ENT Exam: Mucous Membranes Moist - Respiratory Exam Respiratory Exam: NORMAL BREATHING PATTERN. absent: Respiratory Distress - Cardiovascular Exam Cardiovascular Exam: +S1, +S2 - GI/Abdominal Exam GI & Abdominal Exam: Soft. absent: Distended - Neurological Exam Neurological Exam: Alert, Awake, Oriented x3 - Psychiatric Exam Psychiatric exam: Normal Affect, Normal Mood - Skin Skin Exam: Dry, Warm Assessment and Plan - Assessment and Plan (Free Text) Assessment: 61 year old female with end stage stage IV colon CA with lower GI bleeding resulting in symptomatic anemia from ulcerated sigmoid mass Plan: -Patient received 2 units of PRBC yesterday, Hgb today 9.1 -Medical management per primary team -Will likely need colostomy for colonic strictures and ulcerated sigmoid mass but needs medical optimizations -GI recommendation appreciated -C/w sacral wound care by nursing staff daily -Will d/w attending surgeon <Yoan Mccracken - Last Filed: 12/02/16 23:51> Objective - Vital Signs/Intake and Output Vital Signs (last 24 hours): Temp Pulse Resp BP Pulse Ox 97.8 F 101 H 18 170/89 H 100 12/02/16 16:00 12/02/16 16:00 12/02/16 16:00 12/02/16 16:00 12/02/16 16:00 Intake and Output: 12/02/16 12/03/16 18:59 06:59 Intake Total 120 Output Total 450 600 Balance -450 -480 - Medications Medications: Current Medications Acetaminophen (Tylenol 650 Mg Supp) 650 mg RC Q4H PRN PRN Reason: Fever >100.4 F Last Admin: 11/01/16 21:18 Dose: 650 mg Al Hydrox/Mg Hydrox/Simethicone 30 ml/Diphenhydramine HCl 75 mg/Lidocaine 30 ml 0 ml PO QID [facility] Last Admin: 12/02/16 21:01 Dose: Not Given Diphenhydramine HCl (Benadryl) 50 mg IVP HS PRN PRN Reason: Insomnia Last Admin: 11/27/16 01:00 Dose: 50 mg Ergocalciferol (Drisdol 50,000 Intl Units Cap) 1 cap PO Q7D [facility] Last Admin: 11/19/16 18:04 Dose: Not Given Ferrous Sulfate (Feosol) 324 mg PO TID [facility] Last Admin: 12/02/16 18:16 Dose: Not Given Fluconazole (Diflucan) 200 mg PO DAILY [facility] PRN Reason: Protocol Stop: 12/12/16 10:01 Last Admin: 12/02/16 09:44 Dose: Not Given Home Med (Home Med) 1 unit PO Q12H PRN PRN Reason: Inflammation Last Admin: 10/18/16 11:03 Dose: 1 unit Hydralazine HCl (Apresoline) 10 mg IVP Q4H PRN PRN Reason: Systolic Blood Pressure Hydromorphone HCl (Dilaudid) 1 mg IVP Q1H PRN PRN Reason: Pain, moderate (4-7) Last Admin: 12/02/16 21:06 Dose: 1 mg Levetiracetam (Keppra 500mg Ivpb) 500 mg in 100 mls @ 400 mls/hr IV Q12 [facility] Last Admin: 12/02/16 21:06 Dose: 400 mls/hr Potassium Chloride/Dextrose (Potassium Chl 40 Meq In D5w) 1,000 mls @ 60 mls/ hr IV .[id number] [facility] Last Admin: 12/02/16 18:17 Dose: Not Given Magnesium Hydroxide (Milk Of Magnesia) 30 ml PO DAILY PRN PRN Reason: skin irritation Last Admin: 12/02/16 14:09 Dose: 30 ml Magnesium Oxide (Mag-Ox) 400 mg PO BID [facility] Last Admin: 12/02/16 18:16 Dose: Not Given Multi-Ingredient Ointment (Hydrophor Oint) 0 gm TOP Q6H PRN PRN Reason: Dry lip Multivitamins (Thera Tab) 1 tab PO 0800 [facility] Last Admin: 12/02/16 08:10 Dose: Not Given Propranolol HCl (Inderal La) 120 mg PO DAILY [facility] Last Admin: 12/02/16 09:44 Dose: Not Given Sucralfate (Carafate Oral Susp) 1 gm PO BID [facility] Last Admin: 12/02/16 18:16 Dose: Not Given - Labs Labs: 12/02/16 06:00 12/02/16 06:00 PT 12.9 Seconds (9.9-11.8) H 12/02/16 06:00 INR 1.19 (0.93-1.08) H 12/02/16 06:00 APTT 32.9 Seconds (23.7-30.8) H 12/02/16 06:00 Assessment and Plan - Assessment and Plan (Free Text) Plan: Patient was seen and examined by me. I agree with assessment and plan as per resident's note.
[2016-11-07] MEDS: Sucralfate 1 gm/10 ml Oral Susp UD PO SCH ×2 (10:59→18:25)
[2016-11-07] MEDS: Propranolol 60 mg ER Cap PO SCH (11:00)
[2016-11-07] MEDS: Micafungin 100 MG in Sodium Chloride 0.9% 100 ML IV SCH (11:01)
[2016-11-07] MEDS: Bismuth Subsalicylate 262 mg/15 ml Sus (240 ml) PO SCH ×2 (11:02→18:21)
[2016-11-07] MEDS: Tobramycin 0.3% OPHT SOLN OU SCH ×4 (11:02→22:06)
--- NOTE | 2016-11-07 11:52 | CP.PCM.PN ---
Subjective - Date & Time of Evaluation Date of Evaluation: 11/07/16 Time of Evaluation: 08:20 - Subjective Subjective: S&E this am. Awake and alert, reported that she was able to tolerate a bowel of [place], some tea. Diarrhea a little better per patient. Comfortable this morning. S/P blood transfusion. . Objective - Vital Signs/Intake and Output Vital Signs (last 24 hours): Temp Pulse Resp BP Pulse Ox 97.7 F 105 H 20 154/94 H 99 11/07/16 08:30 11/07/16 11:00 11/07/16 08:30 11/07/16 11:00 11/07/16 08:30 Intake and Output: 11/07/16 11/07/16 06:59 18:59 Intake Total 745 Output Total 1600 Balance -855 - Medications Medications: Current Medications Acetaminophen (Tylenol 650 Mg Supp) 650 mg RC Q4H PRN PRN Reason: Fever >100.4 F Last Admin: 11/01/16 21:18 Dose: 650 mg Acetaminophen (Tylenol 650mg/20.3ml Solution Ud) 650 mg PO Q4 PRN PRN Reason: Fever >100.4 F Bismuth Subsalicylate (Pepto-Bismol) 262 mg PO BID [facility] Last Admin: 11/07/16 11:02 Dose: 262 mg Collagenase (Santyl) 1 gm TOP BID [facility] Last Admin: 11/06/16 21:20 Dose: 1 applic Al Hydrox/Mg Hydrox/Simethicone 30 ml/Diphenhydramine HCl 75 mg/Lidocaine 30 ml 0 ml PO Q2H PRN PRN Reason: Mouth/Throat Pain Last Admin: 11/07/16 09:00 Dose: 15 ml Diphenhydramine HCl (Benadryl) 25 mg IVP Q4H PRN PRN Reason: Allergy symptoms Last Admin: 11/07/16 01:54 Dose: 25 mg Ergocalciferol (Drisdol 50,000 Intl Units Cap) 1 cap PO Q7D [facility] Last Admin: 11/05/16 14:21 Dose: 1 cap Furosemide (Lasix) 20 mg IVP Q12 [facility] Last Admin: 11/07/16 10:54 Dose: 20 mg Home Med (Home Med) 1 unit PO Q12H PRN PRN Reason: Inflammation Last Admin: 10/18/16 11:03 Dose: 1 unit Hydralazine HCl (Apresoline) 10 mg PO Q6H PRN PRN Reason: SBP >170 Last Admin: 11/04/16 18:04 Dose: 10 mg Hydromorphone HCl (Dilaudid) 1 mg IVP Q2H PRN PRN Reason: Pain, severe (8-10) Micafungin Sodium 100 mg/ (Sodium Chloride) 100 mls @ 100 mls/hr IV DAILY [facility] PRN Reason: Protocol Stop: 11/18/16 11:00 Last Admin: 11/07/16 11:01 Dose: 100 mls/hr Chromium/Copper/Manganese/Zinc 1 ml/ Multivitamins/Vitamin C 10 ml/ Amino Acids 2,011 mls @ 83 mls/hr IV .Q24H [facility] Stop: 11/08/16 17:59 Last Admin: 11/06/16 21:21 Dose: 83 mls/hr Sodium Chloride (Sodium Chloride 0.9%) 1,000 mls @ 60 mls/hr IV .[id number] [facility] Last Admin: 11/07/16 11:02 Dose: 60 mls/hr Metoprolol Tartrate (Lopressor) 5 mg IVP Q6H PRN PRN Reason: Sustained HR > 130 Last Admin: 10/31/16 00:12 Dose: 5 mg Multi-Ingredient Ointment (Hydrophor Oint) 0 gm TOP Q6H [facility] Last Admin: 11/07/16 11:00 Dose: Not Given Ondansetron HCl (Zofran Inj) 4 mg IVP Q4H PRN PRN Reason: Nausea/Vomiting Last Admin: 10/29/16 20:46 Dose: 4 mg Pantoprazole Sodium (Protonix Inj) 40 mg IVP DAILY [facility] Last Admin: 11/07/16 10:54 Dose: 40 mg Petrolatum (Desitin Maximum Strength Topical 40% Oint) 1 gm TOP Q4H PRN PRN Reason: Rash Last Admin: 10/23/16 22:39 Dose: 1 applic Propranolol HCl (Inderal La) 120 mg PO DAILY [facility] Last Admin: 11/07/16 11:00 Dose: 120 mg Sucralfate (Carafate Oral Susp) 1 gm PO BID [facility] Last Admin: 11/07/16 10:59 Dose: 1 gm Tobramycin Sulfate (Tobrex 0.3% Ophth Soln) 1 drop OU QID [facility] Last Admin: 11/07/16 11:02 Dose: 1 drop Valganciclovir (Valcyte) 900 mg PO DAILY [facility] Last Admin: 11/07/16 11:03 Dose: 900 mg - Labs Labs: 11/07/16 07:00 11/07/16 07:00 PT 14.7 Seconds (9.9-11.8) H 11/07/16 07:00 INR 1.36 (0.93-1.08) H 11/07/16 07:00 APTT 33.1 Seconds (23.7-30.8) H 11/07/16 07:00 - Constitutional Appears: No Acute Distress, Chronically Ill - Head Exam Head Exam: NORMAL INSPECTION - Eye Exam Eye Exam: Normal appearance. absent: Scleral icterus - ENT Exam ENT Exam: Mucous Membranes Moist - Neck Exam Neck Exam: Normal Inspection - Respiratory Exam Respiratory Exam: Decreased Breath Sounds, NORMAL BREATHING PATTERN. absent: Rales, Wheezes, Respiratory Distress - Cardiovascular Exam Cardiovascular Exam: +S1, +S2 - GI/Abdominal Exam GI & Abdominal Exam: Distended, Soft, Tenderness, Normal Bowel Sounds. 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 patient not optimal for surgical intervention now, on multiple antibiotics for bacteremia until infection clears. Seen by Dr. Wilburn oncologist for second opinion as per family request, recommendation noted. as per oncology The patient was seen and case discussed with Dr. Null
[2016-11-07 12:39] LABS: SOURCE: PLASMA
[2016-11-07] MEDS: HYDROmorphone 1 mg/ml ISec IVP PRN ×4 (13:24→22:06)
[2016-11-07] MEDS: Collagenase 250 Units/gm Ointment(30 gm) TOP SCH ×2 (14:48→22:01)
[2016-11-07] MEDS: TRACE ELEMENTS IV SCH (18:22)
[2016-11-07] MEDS: AMINO IV SCH (18:22)
[2016-11-07] MEDS: MULTIVITAMIN IV SCH (18:22)
[2016-11-07] MEDS: [UNRECOGNIZED DRUG - OTHER] IV SCH (18:22)
[2016-11-07] MEDS: DEXT IV SCH (18:22)
--- NOTE | 2016-11-07 21:05 | CP.PCM.PN ---
Subjective - Date & Time of Evaluation Date of Evaluation: 11/07/16 Time of Evaluation: 06:30 - Subjective Subjective: DING POORLY Objective - Vital Signs/Intake and Output Vital Signs (last 24 hours): Temp Pulse Resp BP Pulse Ox 98.6 F 99 H 20 168/88 H 100 11/07/16 16:00 11/07/16 16:00 11/07/16 16:00 11/07/16 16:00 11/07/16 16:00 Intake and Output: 11/07/16 11/08/16 18:59 06:59 Intake Total 240 Output Total 1300 Balance -1060 - Medications Medications: Current Medications Acetaminophen (Tylenol 650 Mg Supp) 650 mg RC Q4H PRN PRN Reason: Fever >100.4 F Last Admin: 11/01/16 21:18 Dose: 650 mg Acetaminophen (Tylenol 650mg/20.3ml Solution Ud) 650 mg PO Q4 PRN PRN Reason: Fever >100.4 F Bismuth Subsalicylate (Pepto-Bismol) 262 mg PO BID [facility] Last Admin: 11/07/16 18:21 Dose: Not Given Collagenase (Santyl) 1 gm TOP BID [facility] Last Admin: 11/07/16 14:48 Dose: Not Given Al Hydrox/Mg Hydrox/Simethicone 30 ml/Diphenhydramine HCl 75 mg/Lidocaine 30 ml 0 ml PO Q2H PRN PRN Reason: Mouth/Throat Pain Last Admin: 11/07/16 09:00 Dose: 15 ml Diphenhydramine HCl (Benadryl) 25 mg IVP Q4H PRN PRN Reason: Allergy symptoms Last Admin: 11/07/16 01:54 Dose: 25 mg Ergocalciferol (Drisdol 50,000 Intl Units Cap) 1 cap PO Q7D [facility] Last Admin: 11/05/16 14:21 Dose: 1 cap Furosemide (Lasix) 20 mg IVP Q12 [facility] Last Admin: 11/07/16 10:54 Dose: 20 mg Home Med (Home Med) 1 unit PO Q12H PRN PRN Reason: Inflammation Last Admin: 10/18/16 11:03 Dose: 1 unit Hydralazine HCl (Apresoline) 10 mg PO Q6H PRN PRN Reason: SBP >170 Last Admin: 11/04/16 18:04 Dose: 10 mg Hydromorphone HCl (Dilaudid) 1.5 mg IVP Q2H PRN PRN Reason: Pain, severe (8-10) Last Admin: 11/07/16 20:21 Dose: 1.5 mg Micafungin Sodium 100 mg/ (Sodium Chloride) 100 mls @ 100 mls/hr IV DAILY [facility] PRN Reason: Protocol Stop: 11/18/16 11:00 Last Admin: 11/07/16 11:01 Dose: 100 mls/hr Chromium/Copper/Manganese/Zinc 1 ml/ Multivitamins/Vitamin C 10 ml/ Amino Acids 2,011 mls @ 83 mls/hr IV .Q24H [facility] Stop: 11/08/16 17:59 Last Admin: 11/07/16 18:22 Dose: 83 mls/hr Metoprolol Tartrate (Lopressor) 5 mg IVP Q6H PRN PRN Reason: Sustained HR > 130 Last Admin: 10/31/16 00:12 Dose: 5 mg Multi-Ingredient Ointment (Hydrophor Oint) 0 gm TOP Q6H [facility] Last Admin: 11/07/16 15:05 Dose: 1 applic Ondansetron HCl (Zofran Inj) 4 mg IVP Q4H PRN PRN Reason: Nausea/Vomiting Last Admin: 10/29/16 20:46 Dose: 4 mg Pantoprazole Sodium (Protonix Inj) 40 mg IVP DAILY [facility] Last Admin: 11/07/16 10:54 Dose: 40 mg Petrolatum (Desitin Maximum Strength Topical 40% Oint) 1 gm TOP Q4H PRN PRN Reason: Rash Last Admin: 10/23/16 22:39 Dose: 1 applic Propranolol HCl (Inderal La) 120 mg PO DAILY [facility] Last Admin: 11/07/16 11:00 Dose: 120 mg Sucralfate (Carafate Oral Susp) 1 gm PO BID [facility] Last Admin: 11/07/16 18:25 Dose: 1 gm Tobramycin Sulfate (Tobrex 0.3% Ophth Soln) 1 drop OU QID [facility] Last Admin: 11/07/16 18:26 Dose: 1 drop Valganciclovir (Valcyte) 900 mg PO DAILY [facility] Last Admin: 11/07/16 11:03 Dose: 900 mg - Labs Labs: 11/07/16 07:00 11/07/16 07:00 PT 14.7 Seconds (9.9-11.8) H 11/07/16 07:00 INR 1.36 (0.93-1.08) H 11/07/16 07:00 APTT 33.1 Seconds (23.7-30.8) H 11/07/16 07:00 - Constitutional Appears: Well - Head Exam Head Exam: ATRAUMATIC, NORMAL INSPECTION, NORMOCEPHALIC - Eye Exam Eye Exam: EOMI, Normal appearance, PERRL Pupil Exam: NORMAL ACCOMODATION, PERRL - ENT Exam ENT Exam: Mucous Membranes Moist, Normal Exam - Neck Exam Neck Exam: Full ROM, Normal Inspection. absent: Lymphadenopathy - Respiratory Exam Respiratory Exam: Clear to Ausculation Bilateral, NORMAL BREATHING PATTERN - Cardiovascular Exam Cardiovascular Exam: REGULAR RHYTHM, +S1, +S2. absent: Murmur - GI/Abdominal Exam GI & Abdominal Exam: Soft, Normal Bowel Sounds. absent: Tenderness - Rectal Exam Rectal Exam: NORMAL INSPECTION - Exam Exam: Circumcision, NORMAL INSPECTION External exam: NORMAL EXTERNAL EXAM Speculum exam: NORMAL SPECULUM EXAM Bimanual exam: NORMAL BIMANUAL EXAM - Extremities Exam Extremities Exam: Full ROM, Normal Capillary Refill, Normal Inspection. absent : Joint Swelling, Pedal Edema - Back Exam Back Exam: NORMAL INSPECTION - Neurological Exam Neurological Exam: Alert, Awake, CN II-XII Intact, Normal Gait, Oriented x3 - Psychiatric Exam Psychiatric exam: Normal Affect, Normal Mood - Skin Skin Exam: Dry, Intact, Normal Color, Warm Assessment and Plan (1) Metastasis from colon cancer Status: Acute - Assessment and Plan (Free Text) Assessment: SEPSIS WITH FUNGEMIA Plan: PEESENT ABX ANTIFUNGAL
[2016-11-08] MEDS: HYDROmorphone 1 mg/ml ISec IVP PRN ×5 (00:47→13:56)
[2016-11-08] MEDS: DiphenhydrAMINE 50 mg/ml Inj IVP PRN (02:51)
[2016-11-08] MEDS: Petrolatum-Mineral Oil Oint (100gm) TOP SCH ×4 (02:51→22:11)
[2016-11-08 06:52] LABS: ALB/GLOB RATIO 0.7 (1.1-1.8); ALBUMIN 1.9 g/dL (3.0-4.8); CALCIUM 7.9 mg/dL (8.4-10.5)
[2016-11-08 07:48] LABS: EOS # 0.2 (0.0-0.7); GRAN # 7.97 (1.4-6.5); GRAN % 88.7 % (50.0-68.0); HEMOGLOBIN 8.5 gm/dL (12.0-16.0); LYMPH # 0.5 (1.2-3.4); MEAN CELL VOLUME 93.2 fL (80.0-105.0); MEAN CORPUSCULAR HEMOGLOBIN 32.3 pg (25.0-35.0); MEAN CORPUSCULAR HGB CONC 34.7 g/dl (31.0-37.0); MONO # 0.3 (0.1-0.6); MONO % 3.3 % (1.0-6.0); PLATELET COUNT 53 10^3/uL (120.0-450.0); RBC 2.63 10^6/uL (3.5-6.1)
--- NOTE | 2016-11-08 08:25 | CP.PCM.PN ---
<Ludivina William - Last Filed: 11/08/16 08:13> Subjective - Date & Time of Evaluation Date of Evaluation: 11/08/16 Time of Evaluation: 07:10 - Subjective Subjective: General Surgery Progress Note for Dr. Mccracken Patient seen and examined at bedside. No acute events overnight. Patient reports her diarrhea is improving and does not have any blood per rectum. Patient complains of abdominal cramps which is managed well with warm compress. Denies fever, chill, shortness of breath, chest pain, nausea or vomiting. Objective - Vital Signs/Intake and Output Vital Signs (last 24 hours): Temp Pulse Resp BP Pulse Ox 98.6 F 89 20 140/90 100 11/07/16 16:00 11/08/16 06:00 11/07/16 16:00 11/07/16 22:04 11/07/16 16:00 Intake and Output: 11/08/16 11/08/16 06:59 18:59 Intake Total 2472 Output Total 2850 Balance -378 - Medications Medications: Current Medications Acetaminophen (Tylenol 650 Mg Supp) 650 mg RC Q4H PRN PRN Reason: Fever >100.4 F Last Admin: 11/01/16 21:18 Dose: 650 mg Acetaminophen (Tylenol 650mg/20.3ml Solution Ud) 650 mg PO Q4 PRN PRN Reason: Fever >100.4 F Bismuth Subsalicylate (Pepto-Bismol) 262 mg PO BID [facility] Last Admin: 11/07/16 18:21 Dose: Not Given Collagenase (Santyl) 1 gm TOP BID [facility] Last Admin: 11/07/16 22:01 Dose: 1 applic Al Hydrox/Mg Hydrox/Simethicone 30 ml/Diphenhydramine HCl 75 mg/Lidocaine 30 ml 0 ml PO Q2H PRN PRN Reason: Mouth/Throat Pain Last Admin: 11/07/16 09:00 Dose: 15 ml Diphenhydramine HCl (Benadryl) 25 mg IVP Q4H PRN PRN Reason: Allergy symptoms Last Admin: 11/08/16 02:51 Dose: 25 mg Ergocalciferol (Drisdol 50,000 Intl Units Cap) 1 cap PO Q7D [facility] Last Admin: 11/05/16 14:21 Dose: 1 cap Furosemide (Lasix) 20 mg IVP Q12 [facility] Last Admin: 11/07/16 22:04 Dose: 20 mg Home Med (Home Med) 1 unit PO Q12H PRN PRN Reason: Inflammation Last Admin: 10/18/16 11:03 Dose: 1 unit Hydralazine HCl (Apresoline) 10 mg PO Q6H PRN PRN Reason: SBP >170 Last Admin: 11/04/16 18:04 Dose: 10 mg Hydromorphone HCl (Dilaudid) 1.5 mg IVP Q2H PRN PRN Reason: Pain, severe (8-10) Last Admin: 11/08/16 05:03 Dose: 1.5 mg Micafungin Sodium 100 mg/ (Sodium Chloride) 100 mls @ 100 mls/hr IV DAILY [facility] PRN Reason: Protocol Stop: 11/18/16 11:00 Last Admin: 11/07/16 11:01 Dose: 100 mls/hr Chromium/Copper/Manganese/Zinc 1 ml/ Multivitamins/Vitamin C 10 ml/ Amino Acids 2,011 mls @ 83 mls/hr IV .Q24H [facility] Stop: 11/08/16 17:59 Last Admin: 11/07/16 18:22 Dose: 83 mls/hr Metoprolol Tartrate (Lopressor) 5 mg IVP Q6H PRN PRN Reason: Sustained HR > 130 Last Admin: 10/31/16 00:12 Dose: 5 mg Multi-Ingredient Ointment (Hydrophor Oint) 0 gm TOP Q6H [facility] Last Admin: 11/08/16 02:51 Dose: 1 applic Ondansetron HCl (Zofran Inj) 4 mg IVP Q4H PRN PRN Reason: Nausea/Vomiting Last Admin: 10/29/16 20:46 Dose: 4 mg Pantoprazole Sodium (Protonix Inj) 40 mg IVP DAILY [facility] Last Admin: 11/07/16 10:54 Dose: 40 mg Petrolatum (Desitin Maximum Strength Topical 40% Oint) 1 gm TOP Q4H PRN PRN Reason: Rash Last Admin: 10/23/16 22:39 Dose: 1 applic Propranolol HCl (Inderal La) 120 mg PO DAILY [facility] Last Admin: 11/07/16 11:00 Dose: 120 mg Sucralfate (Carafate Oral Susp) 1 gm PO BID [facility] Last Admin: 11/07/16 18:25 Dose: 1 gm Tobramycin Sulfate (Tobrex 0.3% Ophth Soln) 1 drop OU QID [facility] Last Admin: 11/07/16 22:06 Dose: 1 drop Valganciclovir (Valcyte) 900 mg PO DAILY [facility] Last Admin: 11/07/16 11:03 Dose: 900 mg - Labs Labs: 11/08/16 06:20 11/08/16 06:20 PT 14.7 Seconds (9.9-11.8) H 11/07/16 07:00 INR 1.36 (0.93-1.08) H 11/07/16 07:00 APTT 33.1 Seconds (23.7-30.8) H 11/07/16 07:00 - Constitutional Appears: Non-toxic, No Acute Distress, Chronically Ill - Head Exam Head Exam: ATRAUMATIC, NORMAL INSPECTION - Eye Exam Eye Exam: Normal appearance - ENT Exam ENT Exam: Mucous Membranes Moist - Respiratory Exam Respiratory Exam: NORMAL BREATHING PATTERN. absent: Respiratory Distress - Cardiovascular Exam Cardiovascular Exam: +S1, +S2 - GI/Abdominal Exam GI & Abdominal Exam: Soft. absent: Distended - Neurological Exam Neurological Exam: Alert, Awake, Oriented x3 - Psychiatric Exam Psychiatric exam: Flat Affect - Skin Skin Exam: Dry, Warm Assessment and Plan - Assessment and Plan (Free Text) Assessment: 61 year old female with end stage stage IV colon CA with lower GI bleeding resulting in symptomatic anemia from ulcerated sigmoid mass Plan: -Medical management per primary team -Hgb today 8.5, transfuse as needed -Will likely need colostomy for colonic strictures and ulcerated sigmoid mass but needs medical optimizations -GI recommendation appreciated -C/w sacral wound care by nursing staff daily -Will d/w attending surgeon <Yoan Mccracken - Last Filed: 12/02/16 23:52> Objective - Vital Signs/Intake and Output Vital Signs (last 24 hours): Temp Pulse Resp BP Pulse Ox 97.8 F 101 H 18 170/89 H 100 12/02/16 16:00 12/02/16 16:00 12/02/16 16:00 12/02/16 16:00 12/02/16 16:00 Intake and Output: 12/02/16 12/03/16 18:59 06:59 Intake Total 120 Output Total 450 600 Balance -450 -480 - Medications Medications: Current Medications Acetaminophen (Tylenol 650 Mg Supp) 650 mg RC Q4H PRN PRN Reason: Fever >100.4 F Last Admin: 11/01/16 21:18 Dose: 650 mg Al Hydrox/Mg Hydrox/Simethicone 30 ml/Diphenhydramine HCl 75 mg/Lidocaine 30 ml 0 ml PO QID [facility] Last Admin: 12/02/16 21:01 Dose: Not Given Diphenhydramine HCl (Benadryl) 50 mg IVP HS PRN PRN Reason: Insomnia Last Admin: 11/27/16 01:00 Dose: 50 mg Ergocalciferol (Drisdol 50,000 Intl Units Cap) 1 cap PO Q7D [facility] Last Admin: 11/19/16 18:04 Dose: Not Given Ferrous Sulfate (Feosol) 324 mg PO TID [facility] Last Admin: 12/02/16 18:16 Dose: Not Given Fluconazole (Diflucan) 200 mg PO DAILY [facility] PRN Reason: Protocol Stop: 12/12/16 10:01 Last Admin: 12/02/16 09:44 Dose: Not Given Home Med (Home Med) 1 unit PO Q12H PRN PRN Reason: Inflammation Last Admin: 10/18/16 11:03 Dose: 1 unit Hydralazine HCl (Apresoline) 10 mg IVP Q4H PRN PRN Reason: Systolic Blood Pressure Hydromorphone HCl (Dilaudid) 1 mg IVP Q1H PRN PRN Reason: Pain, moderate (4-7) Last Admin: 12/02/16 21:06 Dose: 1 mg Levetiracetam (Keppra 500mg Ivpb) 500 mg in 100 mls @ 400 mls/hr IV Q12 [facility] Last Admin: 12/02/16 21:06 Dose: 400 mls/hr Potassium Chloride/Dextrose (Potassium Chl 40 Meq In D5w) 1,000 mls @ 60 mls/ hr IV .[id number] [facility] Last Admin: 12/02/16 18:17 Dose: Not Given Magnesium Hydroxide (Milk Of Magnesia) 30 ml PO DAILY PRN PRN Reason: skin irritation Last Admin: 12/02/16 14:09 Dose: 30 ml Magnesium Oxide (Mag-Ox) 400 mg PO BID [facility] Last Admin: 12/02/16 18:16 Dose: Not Given Multi-Ingredient Ointment (Hydrophor Oint) 0 gm TOP Q6H PRN PRN Reason: Dry lip Multivitamins (Thera Tab) 1 tab PO 0800 [facility] Last Admin: 12/02/16 08:10 Dose: Not Given Propranolol HCl (Inderal La) 120 mg PO DAILY [facility] Last Admin: 12/02/16 09:44 Dose: Not Given Sucralfate (Carafate Oral Susp) 1 gm PO BID [facility] Last Admin: 12/02/16 18:16 Dose: Not Given - Labs Labs: 12/02/16 06:00 12/02/16 06:00 PT 12.9 Seconds (9.9-11.8) H 12/02/16 06:00 INR 1.19 (0.93-1.08) H 12/02/16 06:00 APTT 32.9 Seconds (23.7-30.8) H 12/02/16 06:00 Assessment and Plan - Assessment and Plan (Free Text) Plan: Patient was seen and examined by me. I agree with assessment and plan as per resident's note.
[2016-11-08 08:30] LABS: PLATELET COUNT MANUAL 65 K/mm3 (120-450)
[2016-11-08] MEDS: Propranolol 60 mg ER Cap PO SCH (09:52)
[2016-11-08] MEDS: Sucralfate 1 gm/10 ml Oral Susp UD PO SCH ×2 (09:52→18:24)
[2016-11-08] MEDS: Tobramycin 0.3% OPHT SOLN OU SCH ×4 (09:53→22:07)
[2016-11-08] MEDS: Bismuth Subsalicylate 262 mg/15 ml Sus (240 ml) PO SCH ×2 (09:53→18:25)
[2016-11-08] MEDS: Collagenase 250 Units/gm Ointment(30 gm) TOP SCH ×2 (09:56→18:24)
[2016-11-08] MEDS: Micafungin 100 MG in Sodium Chloride 0.9% 100 ML IV SCH (09:57)
--- NOTE | 2016-11-08 10:28 | CP.PCM.PN ---
Subjective - Date & Time of Evaluation Date of Evaluation: 11/08/16 Time of Evaluation: 09:15 - Subjective Subjective: Feels ok no palpitation, no SOB Objective - Vital Signs/Intake and Output Vital Signs (last 24 hours): Temp Pulse Resp BP Pulse Ox 97.5 F L 93 H 20 150/92 H 99 11/08/16 08:15 11/08/16 08:15 11/08/16 08:15 11/08/16 09:53 11/08/16 08:15 Intake and Output: 11/08/16 11/08/16 06:59 18:59 Intake Total 2472 Output Total 2850 Balance -378 - Medications Medications: Current Medications Acetaminophen (Tylenol 650 Mg Supp) 650 mg RC Q4H PRN PRN Reason: Fever >100.4 F Last Admin: 11/01/16 21:18 Dose: 650 mg Acetaminophen (Tylenol 650mg/20.3ml Solution Ud) 650 mg PO Q4 PRN PRN Reason: Fever >100.4 F Bismuth Subsalicylate (Pepto-Bismol) 262 mg PO BID [facility] Last Admin: 11/08/16 09:53 Dose: 262 mg Collagenase (Santyl) 1 gm TOP BID [facility] Last Admin: 11/08/16 09:56 Dose: 1 applic Al Hydrox/Mg Hydrox/Simethicone 30 ml/Diphenhydramine HCl 75 mg/Lidocaine 30 ml 0 ml PO Q2H PRN PRN Reason: Mouth/Throat Pain Last Admin: 11/07/16 09:00 Dose: 15 ml Diphenhydramine HCl (Benadryl) 25 mg IVP Q4H PRN PRN Reason: Allergy symptoms Last Admin: 11/08/16 02:51 Dose: 25 mg Ergocalciferol (Drisdol 50,000 Intl Units Cap) 1 cap PO Q7D [facility] Last Admin: 11/05/16 14:21 Dose: 1 cap Furosemide (Lasix) 20 mg IVP Q12 [facility] Last Admin: 11/08/16 09:53 Dose: 20 mg Home Med (Home Med) 1 unit PO Q12H PRN PRN Reason: Inflammation Last Admin: 10/18/16 11:03 Dose: 1 unit Hydralazine HCl (Apresoline) 10 mg PO Q6H PRN PRN Reason: SBP >170 Last Admin: 11/04/16 18:04 Dose: 10 mg Hydromorphone HCl (Dilaudid) 1.5 mg IVP Q2H PRN PRN Reason: Pain, severe (8-10) Last Admin: 11/08/16 09:50 Dose: 1.5 mg Micafungin Sodium 100 mg/ (Sodium Chloride) 100 mls @ 100 mls/hr IV DAILY [facility] PRN Reason: Protocol Stop: 11/18/16 11:00 Last Admin: 11/08/16 09:57 Dose: 100 mls/hr Chromium/Copper/Manganese/Zinc 1 ml/ Multivitamins/Vitamin C 10 ml/ Amino Acids 2,011 mls @ 83 mls/hr IV .Q24H [facility] Stop: 11/08/16 17:59 Last Admin: 11/07/16 18:22 Dose: 83 mls/hr Metoprolol Tartrate (Lopressor) 5 mg IVP Q6H PRN PRN Reason: Sustained HR > 130 Last Admin: 10/31/16 00:12 Dose: 5 mg Multi-Ingredient Ointment (Hydrophor Oint) 0 gm TOP Q6H [facility] Last Admin: 11/08/16 09:57 Dose: Not Given Ondansetron HCl (Zofran Inj) 4 mg IVP Q4H PRN PRN Reason: Nausea/Vomiting Last Admin: 10/29/16 20:46 Dose: 4 mg Pantoprazole Sodium (Protonix Inj) 40 mg IVP DAILY [facility] Last Admin: 11/08/16 09:52 Dose: 40 mg Petrolatum (Desitin Maximum Strength Topical 40% Oint) 1 gm TOP Q4H PRN PRN Reason: Rash Last Admin: 10/23/16 22:39 Dose: 1 applic Propranolol HCl (Inderal La) 120 mg PO DAILY [facility] Last Admin: 11/08/16 09:52 Dose: 120 mg Sucralfate (Carafate Oral Susp) 1 gm PO BID [facility] Last Admin: 11/08/16 09:52 Dose: 1 gm Tobramycin Sulfate (Tobrex 0.3% Ophth Soln) 1 drop OU QID [facility] Last Admin: 11/08/16 09:53 Dose: 1 drop Valganciclovir (Valcyte) 900 mg PO DAILY [facility] Last Admin: 11/08/16 09:55 Dose: 900 mg - Labs Labs: 11/08/16 06:20 11/08/16 06:20 PT 14.7 Seconds (9.9-11.8) H 11/07/16 07:00 INR 1.36 (0.93-1.08) H 11/07/16 07:00 APTT 33.1 Seconds (23.7-30.8) H 11/07/16 07:00 Assessment and Plan - Assessment and Plan (Free Text) Assessment: 61 yr old female with Ca colon, mets, anemia, thrombocytopenia, tachcardiac, multifactorial, on beta elena improving..protein calorie malnutrion, was not present on admission. Plan: Continue Beta elena,incraese Nutritional support,Prn Hydrallazine overall condition is critical prognosis guarded.
--- NOTE | 2016-11-08 13:20 | CP.PCM.PN ---
Subjective - Date & Time of Evaluation Date of Evaluation: 11/08/16 Time of Evaluation: 12:30 - Subjective Subjective: LETAHRGIC, LYING IN BED, STILL WITH LOOSE STOOLS Objective - Vital Signs/Intake and Output Vital Signs (last 24 hours): Temp Pulse Resp BP Pulse Ox 97.5 F L 93 H 20 150/92 H 99 11/08/16 08:15 11/08/16 08:15 11/08/16 08:15 11/08/16 09:53 11/08/16 08:15 Intake and Output: 11/08/16 11/08/16 06:59 18:59 Intake Total 2472 Output Total 2850 Balance -378 - Medications Medications: Current Medications Acetaminophen (Tylenol 650 Mg Supp) 650 mg RC Q4H PRN PRN Reason: Fever >100.4 F Last Admin: 11/01/16 21:18 Dose: 650 mg Acetaminophen (Tylenol 650mg/20.3ml Solution Ud) 650 mg PO Q4 PRN PRN Reason: Fever >100.4 F Bismuth Subsalicylate (Pepto-Bismol) 262 mg PO BID [facility] Last Admin: 11/08/16 09:53 Dose: 262 mg Collagenase (Santyl) 1 gm TOP BID [facility] Last Admin: 11/08/16 09:56 Dose: 1 applic Al Hydrox/Mg Hydrox/Simethicone 30 ml/Diphenhydramine HCl 75 mg/Lidocaine 30 ml 0 ml PO Q2H PRN PRN Reason: Mouth/Throat Pain Last Admin: 11/07/16 09:00 Dose: 15 ml Diphenhydramine HCl (Benadryl) 25 mg IVP Q4H PRN PRN Reason: Allergy symptoms Last Admin: 11/08/16 02:51 Dose: 25 mg Ergocalciferol (Drisdol 50,000 Intl Units Cap) 1 cap PO Q7D [facility] Last Admin: 11/05/16 14:21 Dose: 1 cap Furosemide (Lasix) 20 mg IVP Q12 [facility] Last Admin: 11/08/16 09:53 Dose: 20 mg Home Med (Home Med) 1 unit PO Q12H PRN PRN Reason: Inflammation Last Admin: 10/18/16 11:03 Dose: 1 unit Hydralazine HCl (Apresoline) 10 mg PO Q6H PRN PRN Reason: SBP >170 Last Admin: 11/04/16 18:04 Dose: 10 mg Hydromorphone HCl (Dilaudid) 1.5 mg IVP Q2H PRN PRN Reason: Pain, severe (8-10) Last Admin: 11/08/16 09:50 Dose: 1.5 mg Micafungin Sodium 100 mg/ (Sodium Chloride) 100 mls @ 100 mls/hr IV DAILY [facility] PRN Reason: Protocol Stop: 11/18/16 11:00 Last Admin: 11/08/16 09:57 Dose: 100 mls/hr Chromium/Copper/Manganese/Zinc 1 ml/ Multivitamins/Vitamin C 10 ml/ Amino Acids 2,011 mls @ 83 mls/hr IV .Q24H [facility] Stop: 11/08/16 17:59 Last Admin: 11/07/16 18:22 Dose: 83 mls/hr Metoprolol Tartrate (Lopressor) 5 mg IVP Q6H PRN PRN Reason: Sustained HR > 130 Last Admin: 10/31/16 00:12 Dose: 5 mg Multi-Ingredient Ointment (Hydrophor Oint) 0 gm TOP Q6H [facility] Last Admin: 11/08/16 09:57 Dose: Not Given Ondansetron HCl (Zofran Inj) 4 mg IVP Q4H PRN PRN Reason: Nausea/Vomiting Last Admin: 10/29/16 20:46 Dose: 4 mg Pantoprazole Sodium (Protonix Inj) 40 mg IVP DAILY [facility] Last Admin: 11/08/16 09:52 Dose: 40 mg Petrolatum (Desitin Maximum Strength Topical 40% Oint) 1 gm TOP Q4H PRN PRN Reason: Rash Last Admin: 10/23/16 22:39 Dose: 1 applic Propranolol HCl (Inderal La) 120 mg PO DAILY [facility] Last Admin: 11/08/16 09:52 Dose: 120 mg Sucralfate (Carafate Oral Susp) 1 gm PO BID [facility] Last Admin: 11/08/16 09:52 Dose: 1 gm Tobramycin Sulfate (Tobrex 0.3% Ophth Soln) 1 drop OU QID [facility] Last Admin: 11/08/16 09:53 Dose: 1 drop Valganciclovir (Valcyte) 900 mg PO DAILY [facility] Last Admin: 11/08/16 09:55 Dose: 900 mg - Labs Labs: 11/08/16 06:20 11/08/16 06:20 PT 14.7 Seconds (9.9-11.8) H 11/07/16 07:00 INR 1.36 (0.93-1.08) H 11/07/16 07:00 APTT 33.1 Seconds (23.7-30.8) H 11/07/16 07:00 - Constitutional Appears: Cachectic, Chronically Ill, Other - Head Exam Head Exam: ATRAUMATIC, NORMOCEPHALIC - Eye Exam Eye Exam: PERRL - ENT Exam ENT Exam: Mucous Membranes Dry - Neck Exam Neck Exam: Normal Inspection - Respiratory Exam Respiratory Exam: Rhonchi - Cardiovascular Exam Cardiovascular Exam: REGULAR RHYTHM, +S1, +S2 - GI/Abdominal Exam GI & Abdominal Exam: Distended, Hyperactive Bowel Sounds Additional comments: TENDERNESS IN ;LOWER ABDOMEN - Extremities Exam Extremities Exam: Pedal Edema Additional comments: CALF ODEMA - Neurological Exam Neurological Exam: Oriented x3 - Psychiatric Exam Psychiatric exam: Depressed, Flat Affect - Skin Skin Exam: Normal Color Assessment and Plan (1) Diarrhea Assessment & Plan: PERSISTS, STENOTIC LESION Status: Acute (2) Renal failure Assessment & Plan: LARGELY PRERENAL 2/2 HYPERCATABOLIC STATE Status: Acute (3) Abdominal pain Assessment & Plan: 2/2 COLONIC MASS, STENOTIC LESION Status: Acute (4) Colon tumor Assessment & Plan: STAGE IV, BONE METS Status: Chronic (5) Hypoalbuminemia Assessment & Plan: SEVERE MALNUTRITION, CON'T EFRA Status: Acute
--- NOTE | 2016-11-08 14:48 | CP.PCM.PN ---
Subjective - Date & Time of Evaluation Date of Evaluation: 11/08/16 Time of Evaluation: 07:00 - Subjective Subjective: poor condition Objective - Vital Signs/Intake and Output Vital Signs (last 24 hours): Temp Pulse Resp BP Pulse Ox 97.5 F L 93 H 20 150/92 H 99 11/08/16 08:15 11/08/16 08:15 11/08/16 08:15 11/08/16 09:53 11/08/16 08:15 Intake and Output: 11/08/16 11/08/16 06:59 18:59 Intake Total 2472 Output Total 2850 Balance -378 - Medications Medications: Current Medications Acetaminophen (Tylenol 650 Mg Supp) 650 mg RC Q4H PRN PRN Reason: Fever >100.4 F Last Admin: 11/01/16 21:18 Dose: 650 mg Acetaminophen (Tylenol 650mg/20.3ml Solution Ud) 650 mg PO Q4 PRN PRN Reason: Fever >100.4 F Bismuth Subsalicylate (Pepto-Bismol) 262 mg PO BID [facility] Last Admin: 11/08/16 09:53 Dose: 262 mg Collagenase (Santyl) 1 gm TOP BID [facility] Last Admin: 11/08/16 09:56 Dose: 1 applic Al Hydrox/Mg Hydrox/Simethicone 30 ml/Diphenhydramine HCl 75 mg/Lidocaine 30 ml 0 ml PO Q2H PRN PRN Reason: Mouth/Throat Pain Last Admin: 11/07/16 09:00 Dose: 15 ml Diphenhydramine HCl (Benadryl) 25 mg IVP Q4H PRN PRN Reason: Allergy symptoms Last Admin: 11/08/16 02:51 Dose: 25 mg Ergocalciferol (Drisdol 50,000 Intl Units Cap) 1 cap PO Q7D [facility] Last Admin: 11/05/16 14:21 Dose: 1 cap Furosemide (Lasix) 20 mg IVP Q12 [facility] Last Admin: 11/08/16 09:53 Dose: 20 mg Home Med (Home Med) 1 unit PO Q12H PRN PRN Reason: Inflammation Last Admin: 10/18/16 11:03 Dose: 1 unit Hydralazine HCl (Apresoline) 10 mg PO Q6H PRN PRN Reason: SBP >170 Last Admin: 11/04/16 18:04 Dose: 10 mg Hydromorphone HCl (Dilaudid) 1.5 mg IVP Q2H PRN PRN Reason: Pain, severe (8-10) Last Admin: 11/08/16 13:56 Dose: 1.5 mg Micafungin Sodium 100 mg/ (Sodium Chloride) 100 mls @ 100 mls/hr IV DAILY [facility] PRN Reason: Protocol Stop: 11/18/16 11:00 Last Admin: 11/08/16 09:57 Dose: 100 mls/hr Chromium/Copper/Manganese/Zinc 1 ml/ Multivitamins/Vitamin C 10 ml/ Amino Acids 2,011 mls @ 83 mls/hr IV .Q24H [facility] Stop: 11/08/16 17:59 Last Admin: 11/07/16 18:22 Dose: 83 mls/hr Fat Emulsion Intravenous (Intralipid 20%) 250 mls @ 21 mls/hr IV 1800 [facility] Metoprolol Tartrate (Lopressor) 5 mg IVP Q6H PRN PRN Reason: Sustained HR > 130 Last Admin: 10/31/16 00:12 Dose: 5 mg Multi-Ingredient Ointment (Hydrophor Oint) 0 gm TOP Q6H [facility] Last Admin: 11/08/16 09:57 Dose: Not Given Ondansetron HCl (Zofran Inj) 4 mg IVP Q4H PRN PRN Reason: Nausea/Vomiting Last Admin: 10/29/16 20:46 Dose: 4 mg Pantoprazole Sodium (Protonix Inj) 40 mg IVP DAILY [facility] Last Admin: 11/08/16 09:52 Dose: 40 mg Petrolatum (Desitin Maximum Strength Topical 40% Oint) 1 gm TOP Q4H PRN PRN Reason: Rash Last Admin: 10/23/16 22:39 Dose: 1 applic Propranolol HCl (Inderal La) 120 mg PO DAILY [facility] Last Admin: 11/08/16 09:52 Dose: 120 mg Sucralfate (Carafate Oral Susp) 1 gm PO BID [facility] Last Admin: 11/08/16 09:52 Dose: 1 gm Tobramycin Sulfate (Tobrex 0.3% Ophth Soln) 1 drop OU QID [facility] Last Admin: 11/08/16 14:11 Dose: 1 drop Valganciclovir (Valcyte) 900 mg PO DAILY [facility] Last Admin: 11/08/16 09:55 Dose: 900 mg - Labs Labs: 11/08/16 06:20 11/08/16 06:20 PT 14.7 Seconds (9.9-11.8) H 11/07/16 07:00 INR 1.36 (0.93-1.08) H 11/07/16 07:00 APTT 33.1 Seconds (23.7-30.8) H 11/07/16 07:00 - Constitutional Appears: Well - Head Exam Head Exam: ATRAUMATIC, NORMAL INSPECTION, NORMOCEPHALIC - Eye Exam Eye Exam: EOMI, Normal appearance, PERRL Pupil Exam: NORMAL ACCOMODATION, PERRL - ENT Exam ENT Exam: Mucous Membranes Moist, Normal Exam - Neck Exam Neck Exam: Full ROM, Normal Inspection. absent: Lymphadenopathy - Respiratory Exam Respiratory Exam: Clear to Ausculation Bilateral, NORMAL BREATHING PATTERN - Cardiovascular Exam Cardiovascular Exam: REGULAR RHYTHM, +S1, +S2. absent: Murmur - GI/Abdominal Exam GI & Abdominal Exam: Soft, Normal Bowel Sounds. absent: Tenderness - Rectal Exam Rectal Exam: NORMAL INSPECTION - Exam Exam: Circumcision, NORMAL INSPECTION External exam: NORMAL EXTERNAL EXAM Speculum exam: NORMAL SPECULUM EXAM Bimanual exam: NORMAL BIMANUAL EXAM - Extremities Exam Extremities Exam: Full ROM, Normal Capillary Refill, Normal Inspection. absent : Joint Swelling, Pedal Edema - Back Exam Back Exam: NORMAL INSPECTION - Neurological Exam Neurological Exam: Alert, Awake, CN II-XII Intact, Normal Gait, Oriented x3 - Psychiatric Exam Psychiatric exam: Normal Affect, Normal Mood - Skin Skin Exam: Dry, Intact, Normal Color, Warm Assessment and Plan (1) Metastasis from colon cancer Status: Acute (2) Fungemia Status: Acute - Assessment and Plan (Free Text) Plan: d/w dr maharaj, myc repeat culture negative ok for OR FROM ID POINT OF VIEW
[2016-11-08] MEDS ORDERED: HYDROmorphone 1 mg/ml PCA 25 ML IV PRN (15:26)
[2016-11-08] MEDS ORDERED: Fat Emulsion 20% IV 250 ML IV SCH (18:00)
[2016-11-09] MEDS: DiphenhydrAMINE 50 mg/ml Inj IVP PRN (00:53)
[2016-11-09] MEDS: Petrolatum-Mineral Oil Oint (100gm) TOP SCH ×4 (02:51→21:48)
[2016-11-09 07:17] LABS: ALBUMIN 2.1 g/dL (3.0-4.8); ALT/SGPT 30 U/L (7-56); AST/SGOT 15 U/L (15-39); BLOOD UREA NITROGEN 105 mg/dL (7-21); CALCIUM 7.8 mg/dL (8.4-10.5); GFR AFRICAN-AMERICAN > 60; GFR NON-AFRICAN AMERICAN 50
[2016-11-09 07:26] LABS: ALB/GLOB RATIO 0.8 (1.1-1.8)
--- NOTE | 2016-11-09 07:49 | CP.PCM.PN ---
<Ludivina William - Last Filed: 11/09/16 07:42> Subjective - Date & Time of Evaluation Date of Evaluation: 11/09/16 Time of Evaluation: 07:00 - Subjective Subjective: General Surgery Progress Note for Dr. Mccracken Patient seen and examined at bedside. No acute events overnight. Patient reports no blood per rectum. Patient states shes doing well and pain is managed well with PRESCHOOL TEACHER'S ASSISTANT dilaudid. Denies fever, chill, shortness of breath, chest pain, nausea or vomiting. Objective - Vital Signs/Intake and Output Vital Signs (last 24 hours): Temp Pulse Resp BP Pulse Ox 98.8 F 103 H 18 148/88 99 11/09/16 00:44 11/09/16 06:00 11/09/16 00:44 11/09/16 00:44 11/09/16 00:44 Intake and Output: 11/09/16 11/09/16 06:59 18:59 Intake Total 1446 420 Output Total 900 1400 Balance 546 -980 - Medications Medications: Current Medications Acetaminophen (Tylenol 650 Mg Supp) 650 mg RC Q4H PRN PRN Reason: Fever >100.4 F Last Admin: 11/01/16 21:18 Dose: 650 mg Acetaminophen (Tylenol 650mg/20.3ml Solution Ud) 650 mg PO Q4 PRN PRN Reason: Fever >100.4 F Bismuth Subsalicylate (Pepto-Bismol) 262 mg PO BID [facility] Last Admin: 11/08/16 18:25 Dose: 262 mg Collagenase (Santyl) 1 gm TOP BID [facility] Last Admin: 11/08/16 18:24 Dose: 1 applic Al Hydrox/Mg Hydrox/Simethicone 30 ml/Diphenhydramine HCl 75 mg/Lidocaine 30 ml 0 ml PO Q2H PRN PRN Reason: Mouth/Throat Pain Last Admin: 11/07/16 09:00 Dose: 15 ml Diphenhydramine HCl (Benadryl) 25 mg IVP Q4H PRN PRN Reason: Allergy symptoms Last Admin: 11/09/16 00:53 Dose: 25 mg Ergocalciferol (Drisdol 50,000 Intl Units Cap) 1 cap PO Q7D [facility] Last Admin: 11/05/16 14:21 Dose: 1 cap Furosemide (Lasix) 20 mg IVP Q12 [facility] Last Admin: 11/08/16 22:06 Dose: 20 mg Home Med (Home Med) 1 unit PO Q12H PRN PRN Reason: Inflammation Last Admin: 10/18/16 11:03 Dose: 1 unit Hydralazine HCl (Apresoline) 10 mg PO Q6H PRN PRN Reason: SBP >170 Last Admin: 11/04/16 18:04 Dose: 10 mg Micafungin Sodium 100 mg/ (Sodium Chloride) 100 mls @ 100 mls/hr IV DAILY [facility] PRN Reason: Protocol Stop: 11/18/16 11:00 Last Admin: 11/08/16 09:57 Dose: 100 mls/hr Fat Emulsion Intravenous (Intralipid 20%) 250 mls @ 21 mls/hr IV 1800 [facility] Last Admin: 11/08/16 18:23 Dose: 21 mls/hr Hydromorphone HCl (Dilaudid-Hp 1 Mg/Ml Transportation Manager) 25 mls @ 0.5 mls/hr IV PRN PRN; Protocol PRN Reason: PRESCHOOL TEACHER'S ASSISTANT PER MD ORDER Last Admin: 11/08/16 16:36 Dose: 0.5 mls/hr Metoprolol Tartrate (Lopressor) 5 mg IVP Q6H PRN PRN Reason: Sustained HR > 130 Last Admin: 10/31/16 00:12 Dose: 5 mg Multi-Ingredient Ointment (Hydrophor Oint) 0 gm TOP Q6H [facility] Last Admin: 11/09/16 02:51 Dose: Not Given Ondansetron HCl (Zofran Inj) 4 mg IVP Q4H PRN PRN Reason: Nausea/Vomiting Last Admin: 11/09/16 05:59 Dose: 4 mg Pantoprazole Sodium (Protonix Inj) 40 mg IVP DAILY [facility] Last Admin: 11/08/16 09:52 Dose: 40 mg Petrolatum (Desitin Maximum Strength Topical 40% Oint) 1 gm TOP Q4H PRN PRN Reason: Rash Last Admin: 10/23/16 22:39 Dose: 1 applic Propranolol HCl (Inderal La) 120 mg PO DAILY [facility] Last Admin: 11/08/16 09:52 Dose: 120 mg Sucralfate (Carafate Oral Susp) 1 gm PO BID [facility] Last Admin: 11/08/16 18:24 Dose: 1 gm Tobramycin Sulfate (Tobrex 0.3% Ophth Soln) 1 drop OU QID [facility] Last Admin: 11/08/16 22:07 Dose: 1 drop Valganciclovir (Valcyte) 900 mg PO DAILY [facility] Last Admin: 11/08/16 09:55 Dose: 900 mg - Labs Labs: 11/08/16 06:20 11/09/16 05:30 PT 14.7 Seconds (9.9-11.8) H 11/07/16 07:00 INR 1.36 (0.93-1.08) H 11/07/16 07:00 APTT 33.1 Seconds (23.7-30.8) H 11/07/16 07:00 - Constitutional Appears: Non-toxic, No Acute Distress, Chronically Ill - Head Exam Head Exam: ATRAUMATIC, NORMAL INSPECTION - Eye Exam Eye Exam: EOMI, Normal appearance - ENT Exam ENT Exam: Mucous Membranes Moist - Respiratory Exam Respiratory Exam: NORMAL BREATHING PATTERN. absent: Respiratory Distress - Cardiovascular Exam Cardiovascular Exam: +S1, +S2 - GI/Abdominal Exam GI & Abdominal Exam: Soft. absent: Distended - Neurological Exam Neurological Exam: Alert, Awake, Oriented x3 - Skin Skin Exam: Dry, Warm Assessment and Plan - Assessment and Plan (Free Text) Assessment: 61 year old female with end stage stage IV colon CA with lower GI bleeding resulting in symptomatic anemia from ulcerated sigmoid mass Plan: -Medical management per primary team and heme/onc -Monitor CBC, transfuse as needed -Will likely need colostomy for colonic strictures and ulcerated sigmoid mass but needs medical optimizations -GI recommendation appreciated -C/w sacral wound care by nursing -Will d/w attending <Yoan Mccracken - Last Filed: 12/02/16 23:53> Objective - Vital Signs/Intake and Output Vital Signs (last 24 hours): Temp Pulse Resp BP Pulse Ox 97.8 F 101 H 18 170/89 H 100 12/02/16 16:00 12/02/16 16:00 12/02/16 16:00 12/02/16 16:00 12/02/16 16:00 Intake and Output: 12/02/16 12/03/16 18:59 06:59 Intake Total 120 Output Total 450 600 Balance -450 -480 - Medications Medications: Current Medications Acetaminophen (Tylenol 650 Mg Supp) 650 mg RC Q4H PRN PRN Reason: Fever >100.4 F Last Admin: 11/01/16 21:18 Dose: 650 mg Al Hydrox/Mg Hydrox/Simethicone 30 ml/Diphenhydramine HCl 75 mg/Lidocaine 30 ml 0 ml PO QID [facility] Last Admin: 12/02/16 21:01 Dose: Not Given Diphenhydramine HCl (Benadryl) 50 mg IVP HS PRN PRN Reason: Insomnia Last Admin: 11/27/16 01:00 Dose: 50 mg Ergocalciferol (Drisdol 50,000 Intl Units Cap) 1 cap PO Q7D [facility] Last Admin: 11/19/16 18:04 Dose: Not Given Ferrous Sulfate (Feosol) 324 mg PO TID [facility] Last Admin: 12/02/16 18:16 Dose: Not Given Fluconazole (Diflucan) 200 mg PO DAILY [facility] PRN Reason: Protocol Stop: 12/12/16 10:01 Last Admin: 12/02/16 09:44 Dose: Not Given Home Med (Home Med) 1 unit PO Q12H PRN PRN Reason: Inflammation Last Admin: 10/18/16 11:03 Dose: 1 unit Hydralazine HCl (Apresoline) 10 mg IVP Q4H PRN PRN Reason: Systolic Blood Pressure Hydromorphone HCl (Dilaudid) 1 mg IVP Q1H PRN PRN Reason: Pain, moderate (4-7) Last Admin: 12/02/16 21:06 Dose: 1 mg Levetiracetam (Keppra 500mg Ivpb) 500 mg in 100 mls @ 400 mls/hr IV Q12 [facility] Last Admin: 12/02/16 21:06 Dose: 400 mls/hr Potassium Chloride/Dextrose (Potassium Chl 40 Meq In D5w) 1,000 mls @ 60 mls/ hr IV .[id number] [facility] Last Admin: 12/02/16 18:17 Dose: Not Given Magnesium Hydroxide (Milk Of Magnesia) 30 ml PO DAILY PRN PRN Reason: skin irritation Last Admin: 12/02/16 14:09 Dose: 30 ml Magnesium Oxide (Mag-Ox) 400 mg PO BID [facility] Last Admin: 12/02/16 18:16 Dose: Not Given Multi-Ingredient Ointment (Hydrophor Oint) 0 gm TOP Q6H PRN PRN Reason: Dry lip Multivitamins (Thera Tab) 1 tab PO 0800 [facility] Last Admin: 12/02/16 08:10 Dose: Not Given Propranolol HCl (Inderal La) 120 mg PO DAILY [facility] Last Admin: 12/02/16 09:44 Dose: Not Given Sucralfate (Carafate Oral Susp) 1 gm PO BID [facility] Last Admin: 12/02/16 18:16 Dose: Not Given - Labs Labs: 12/02/16 06:00 12/02/16 06:00 PT 12.9 Seconds (9.9-11.8) H 12/02/16 06:00 INR 1.19 (0.93-1.08) H 12/02/16 06:00 APTT 32.9 Seconds (23.7-30.8) H 12/02/16 06:00 Assessment and Plan - Assessment and Plan (Free Text) Plan: Patient was seen and examined by me. I agree with assessment and plan as per resident's note.
--- NOTE | 2016-11-09 08:19 | CP.PCM.PN ---
Subjective - Date & Time of Evaluation Date of Evaluation: 11/09/16 Time of Evaluation: 07:55 - Subjective Subjective: DOING SLIGHTLY BETTER HER BROTHER AT BED SIDE Objective - Vital Signs/Intake and Output Vital Signs (last 24 hours): Temp Pulse Resp BP Pulse Ox 98.8 F 103 H 18 148/88 99 11/09/16 00:44 11/09/16 06:00 11/09/16 00:44 11/09/16 00:44 11/09/16 00:44 Intake and Output: 11/09/16 11/09/16 06:59 18:59 Intake Total 1446 420 Output Total 900 1400 Balance 546 -980 - Medications Medications: Current Medications Acetaminophen (Tylenol 650 Mg Supp) 650 mg RC Q4H PRN PRN Reason: Fever >100.4 F Last Admin: 11/01/16 21:18 Dose: 650 mg Acetaminophen (Tylenol 650mg/20.3ml Solution Ud) 650 mg PO Q4 PRN PRN Reason: Fever >100.4 F Bismuth Subsalicylate (Pepto-Bismol) 262 mg PO BID [facility] Last Admin: 11/08/16 18:25 Dose: 262 mg Collagenase (Santyl) 1 gm TOP BID [facility] Last Admin: 11/08/16 18:24 Dose: 1 applic Al Hydrox/Mg Hydrox/Simethicone 30 ml/Diphenhydramine HCl 75 mg/Lidocaine 30 ml 0 ml PO Q2H PRN PRN Reason: Mouth/Throat Pain Last Admin: 11/07/16 09:00 Dose: 15 ml Diphenhydramine HCl (Benadryl) 25 mg IVP Q4H PRN PRN Reason: Allergy symptoms Last Admin: 11/09/16 00:53 Dose: 25 mg Ergocalciferol (Drisdol 50,000 Intl Units Cap) 1 cap PO Q7D [facility] Last Admin: 11/05/16 14:21 Dose: 1 cap Furosemide (Lasix) 20 mg IVP Q12 [facility] Last Admin: 11/08/16 22:06 Dose: 20 mg Home Med (Home Med) 1 unit PO Q12H PRN PRN Reason: Inflammation Last Admin: 10/18/16 11:03 Dose: 1 unit Hydralazine HCl (Apresoline) 10 mg PO Q6H PRN PRN Reason: SBP >170 Last Admin: 11/04/16 18:04 Dose: 10 mg Micafungin Sodium 100 mg/ (Sodium Chloride) 100 mls @ 100 mls/hr IV DAILY [facility] PRN Reason: Protocol Stop: 11/18/16 11:00 Last Admin: 11/08/16 09:57 Dose: 100 mls/hr Fat Emulsion Intravenous (Intralipid 20%) 250 mls @ 21 mls/hr IV 1800 [facility] Last Admin: 11/08/16 18:23 Dose: 21 mls/hr Hydromorphone HCl (Dilaudid-Hp 1 Mg/Ml Rug Washer) 25 mls @ 0.5 mls/hr IV PRN PRN; Protocol PRN Reason: HR ASSISTANT PER MD ORDER Last Admin: 11/08/16 16:36 Dose: 0.5 mls/hr Metoprolol Tartrate (Lopressor) 5 mg IVP Q6H PRN PRN Reason: Sustained HR > 130 Last Admin: 10/31/16 00:12 Dose: 5 mg Multi-Ingredient Ointment (Hydrophor Oint) 0 gm TOP Q6H [facility] Last Admin: 11/09/16 02:51 Dose: Not Given Ondansetron HCl (Zofran Inj) 4 mg IVP Q4H PRN PRN Reason: Nausea/Vomiting Last Admin: 11/09/16 05:59 Dose: 4 mg Pantoprazole Sodium (Protonix Inj) 40 mg IVP DAILY [facility] Last Admin: 11/08/16 09:52 Dose: 40 mg Petrolatum (Desitin Maximum Strength Topical 40% Oint) 1 gm TOP Q4H PRN PRN Reason: Rash Last Admin: 10/23/16 22:39 Dose: 1 applic Propranolol HCl (Inderal La) 120 mg PO DAILY [facility] Last Admin: 11/08/16 09:52 Dose: 120 mg Sucralfate (Carafate Oral Susp) 1 gm PO BID [facility] Last Admin: 11/08/16 18:24 Dose: 1 gm Tobramycin Sulfate (Tobrex 0.3% Ophth Soln) 1 drop OU QID [facility] Last Admin: 11/08/16 22:07 Dose: 1 drop Valganciclovir (Valcyte) 900 mg PO DAILY [facility] Last Admin: 11/08/16 09:55 Dose: 900 mg - Labs Labs: 11/08/16 06:20 11/09/16 05:30 PT 14.7 Seconds (9.9-11.8) H 11/07/16 07:00 INR 1.36 (0.93-1.08) H 11/07/16 07:00 APTT 33.1 Seconds (23.7-30.8) H 11/07/16 07:00 - Constitutional Appears: Well - Head Exam Head Exam: ATRAUMATIC, NORMAL INSPECTION, NORMOCEPHALIC - Eye Exam Eye Exam: EOMI, Normal appearance, PERRL Pupil Exam: NORMAL ACCOMODATION, PERRL - ENT Exam ENT Exam: Mucous Membranes Moist, Normal Exam - Neck Exam Neck Exam: Full ROM, Normal Inspection. absent: Lymphadenopathy - Respiratory Exam Respiratory Exam: Clear to Ausculation Bilateral, NORMAL BREATHING PATTERN - Cardiovascular Exam Cardiovascular Exam: REGULAR RHYTHM, +S1, +S2. absent: Murmur - GI/Abdominal Exam GI & Abdominal Exam: Soft, Normal Bowel Sounds. absent: Tenderness - Rectal Exam Rectal Exam: NORMAL INSPECTION - Exam Exam: Circumcision, NORMAL INSPECTION External exam: NORMAL EXTERNAL EXAM Speculum exam: NORMAL SPECULUM EXAM Bimanual exam: NORMAL BIMANUAL EXAM - Extremities Exam Extremities Exam: Full ROM, Normal Capillary Refill, Normal Inspection. absent : Joint Swelling, Pedal Edema - Back Exam Back Exam: NORMAL INSPECTION - Neurological Exam Neurological Exam: Alert, Awake, CN II-XII Intact, Normal Gait, Oriented x3 - Psychiatric Exam Psychiatric exam: Normal Affect, Normal Mood - Skin Skin Exam: Dry, Intact, Normal Color, Warm Assessment and Plan (1) Metastasis from colon cancer Status: Acute (2) Fungemia Status: Acute - Assessment and Plan (Free Text) Plan: PRESENT [place] PROGNOSIS POOR
[2016-11-09 08:35] LABS: EOS # 0.1 (0.0-0.7); EOS % 1.5 % (1.5-5.0); GRAN # 8.47 (1.4-6.5); GRAN % 89.2 % (50.0-68.0); HEMOGLOBIN 8.3 gm/dL (12.0-16.0); LYMPH # 0.7 (1.2-3.4); LYMPH % 7.3 % (22.0-35.0); MEAN CELL VOLUME 96.8 fL (80.0-105.0); MEAN CORPUSCULAR HEMOGLOBIN 33.5 pg (25.0-35.0); MEAN CORPUSCULAR HGB CONC 34.6 g/dl (31.0-37.0); MONO # 0.2 (0.1-0.6); PLATELET COUNT 59 10^3/uL (120.0-450.0); RBC 2.48 10^6/uL (3.5-6.1); RED CELL DISTRIBUTION WIDTH 18.9 % (11.5-14.5); WHITE BLOOD COUNT 9.5 10^3/ul (4.5-11.0)
--- NOTE | 2016-11-09 09:08 | CP.PCM.PN ---
Subjective - Date & Time of Evaluation Date of Evaluation: 11/09/16 Time of Evaluation: 08:00 - Subjective Subjective: Feels better , Brother is at bed side., No chest pain, No SOB, No palpitation. Objective - Vital Signs/Intake and Output Vital Signs (last 24 hours): Temp Pulse Resp BP Pulse Ox 98.8 F 103 H 18 148/88 99 11/09/16 00:44 11/09/16 06:00 11/09/16 00:44 11/09/16 00:44 11/09/16 00:44 Intake and Output: 11/09/16 11/09/16 06:59 18:59 Intake Total 1446 420 Output Total 900 1400 Balance 546 -980 - Medications Medications: Current Medications Acetaminophen (Tylenol 650 Mg Supp) 650 mg RC Q4H PRN PRN Reason: Fever >100.4 F Last Admin: 11/01/16 21:18 Dose: 650 mg Acetaminophen (Tylenol 650mg/20.3ml Solution Ud) 650 mg PO Q4 PRN PRN Reason: Fever >100.4 F Bismuth Subsalicylate (Pepto-Bismol) 262 mg PO BID [facility] Last Admin: 11/08/16 18:25 Dose: 262 mg Collagenase (Santyl) 1 gm TOP BID [facility] Last Admin: 11/08/16 18:24 Dose: 1 applic Al Hydrox/Mg Hydrox/Simethicone 30 ml/Diphenhydramine HCl 75 mg/Lidocaine 30 ml 0 ml PO Q2H PRN PRN Reason: Mouth/Throat Pain Last Admin: 11/07/16 09:00 Dose: 15 ml Diphenhydramine HCl (Benadryl) 25 mg IVP Q4H PRN PRN Reason: Allergy symptoms Last Admin: 11/09/16 00:53 Dose: 25 mg Ergocalciferol (Drisdol 50,000 Intl Units Cap) 1 cap PO Q7D [facility] Last Admin: 11/05/16 14:21 Dose: 1 cap Furosemide (Lasix) 20 mg IVP Q12 [facility] Last Admin: 11/08/16 22:06 Dose: 20 mg Home Med (Home Med) 1 unit PO Q12H PRN PRN Reason: Inflammation Last Admin: 10/18/16 11:03 Dose: 1 unit Hydralazine HCl (Apresoline) 10 mg PO Q6H PRN PRN Reason: SBP >170 Last Admin: 11/04/16 18:04 Dose: 10 mg Micafungin Sodium 100 mg/ (Sodium Chloride) 100 mls @ 100 mls/hr IV DAILY [facility] PRN Reason: Protocol Stop: 11/18/16 11:00 Last Admin: 11/08/16 09:57 Dose: 100 mls/hr Hydromorphone HCl (Dilaudid-Hp 1 Mg/Ml Landing Support Specialist) 25 mls @ 0.5 mls/hr IV PRN PRN; Protocol PRN Reason: VALET PARKER PER MD ORDER Last Admin: 11/08/16 16:36 Dose: 0.5 mls/hr Metoprolol Tartrate (Lopressor) 5 mg IVP Q6H PRN PRN Reason: Sustained HR > 130 Last Admin: 10/31/16 00:12 Dose: 5 mg Multi-Ingredient Ointment (Hydrophor Oint) 0 gm TOP Q6H [facility] Last Admin: 11/09/16 02:51 Dose: Not Given Ondansetron HCl (Zofran Inj) 4 mg IVP Q4H PRN PRN Reason: Nausea/Vomiting Last Admin: 11/09/16 05:59 Dose: 4 mg Pantoprazole Sodium (Protonix Inj) 40 mg IVP DAILY [facility] Last Admin: 11/08/16 09:52 Dose: 40 mg Petrolatum (Desitin Maximum Strength Topical 40% Oint) 1 gm TOP Q4H PRN PRN Reason: Rash Last Admin: 10/23/16 22:39 Dose: 1 applic Propranolol HCl (Inderal La) 120 mg PO DAILY [facility] Last Admin: 11/08/16 09:52 Dose: 120 mg Sucralfate (Carafate Oral Susp) 1 gm PO BID [facility] Last Admin: 11/08/16 18:24 Dose: 1 gm Tobramycin Sulfate (Tobrex 0.3% Ophth Soln) 1 drop OU QID [facility] Last Admin: 11/08/16 22:07 Dose: 1 drop Valganciclovir (Valcyte) 900 mg PO DAILY [facility] Last Admin: 11/08/16 09:55 Dose: 900 mg - Labs Labs: 11/09/16 05:30 11/09/16 05:30 PT 14.7 Seconds (9.9-11.8) H 11/07/16 07:00 INR 1.36 (0.93-1.08) H 11/07/16 07:00 APTT 33.1 Seconds (23.7-30.8) H 11/07/16 07:00 - Constitutional Appears: Well - Head Exam Head Exam: ATRAUMATIC - Eye Exam Eye Exam: Conjunctival injection - ENT Exam ENT Exam: Mucous Membranes Dry - Neck Exam Neck Exam: Full ROM - Respiratory Exam Respiratory Exam: Accessory Muscle Use - Cardiovascular Exam Cardiovascular Exam: Tachycardia - GI/Abdominal Exam GI & Abdominal Exam: Distended Assessment and Plan - Assessment and Plan (Free Text) Assessment: 61 old female with PMhx of Ca colon with meds Anemia thrombocytopenia tachcardia multifactorial... improving protien calorie malnutition .. was not present on admission Plan: increase nutritional support continue beta elena plan for definite treatment for Ca colon... surgry VS chemo/. interim continue current treatment.
--- NOTE | 2016-11-09 09:35 | CP.PCM.PN ---
Subjective - Date & Time of Evaluation Date of Evaluation: 11/09/16 Time of Evaluation: 09:00 - Subjective Subjective: Awake, alert, c/o pain reports less diarrhoea Objective - Vital Signs/Intake and Output Vital Signs (last 24 hours): Temp Pulse Resp BP Pulse Ox 98.8 F 103 H 18 148/88 99 11/09/16 00:44 11/09/16 06:00 11/09/16 00:44 11/09/16 00:44 11/09/16 00:44 Intake and Output: 11/09/16 11/09/16 06:59 18:59 Intake Total 1446 420 Output Total 900 1400 Balance 546 -980 - Medications Medications: Current Medications Acetaminophen (Tylenol 650 Mg Supp) 650 mg RC Q4H PRN PRN Reason: Fever >100.4 F Last Admin: 11/01/16 21:18 Dose: 650 mg Acetaminophen (Tylenol 650mg/20.3ml Solution Ud) 650 mg PO Q4 PRN PRN Reason: Fever >100.4 F Bismuth Subsalicylate (Pepto-Bismol) 262 mg PO BID [facility] Last Admin: 11/08/16 18:25 Dose: 262 mg Collagenase (Santyl) 1 gm TOP BID [facility] Last Admin: 11/08/16 18:24 Dose: 1 applic Al Hydrox/Mg Hydrox/Simethicone 30 ml/Diphenhydramine HCl 75 mg/Lidocaine 30 ml 0 ml PO Q2H PRN PRN Reason: Mouth/Throat Pain Last Admin: 11/07/16 09:00 Dose: 15 ml Diphenhydramine HCl (Benadryl) 25 mg IVP Q4H PRN PRN Reason: Allergy symptoms Last Admin: 11/09/16 00:53 Dose: 25 mg Ergocalciferol (Drisdol 50,000 Intl Units Cap) 1 cap PO Q7D [facility] Last Admin: 11/05/16 14:21 Dose: 1 cap Furosemide (Lasix) 20 mg IVP Q12 [facility] Last Admin: 11/08/16 22:06 Dose: 20 mg Home Med (Home Med) 1 unit PO Q12H PRN PRN Reason: Inflammation Last Admin: 10/18/16 11:03 Dose: 1 unit Hydralazine HCl (Apresoline) 10 mg PO Q6H PRN PRN Reason: SBP >170 Last Admin: 11/04/16 18:04 Dose: 10 mg Micafungin Sodium 100 mg/ (Sodium Chloride) 100 mls @ 100 mls/hr IV DAILY [facility] PRN Reason: Protocol Stop: 11/18/16 11:00 Last Admin: 11/08/16 09:57 Dose: 100 mls/hr Hydromorphone HCl (Dilaudid-Hp 1 Mg/Ml Combo Welder) 25 mls @ 0.5 mls/hr IV PRN PRN; Protocol PRN Reason: MANAGER PORTABLE PER MD ORDER Last Admin: 11/08/16 16:36 Dose: 0.5 mls/hr Metoprolol Tartrate (Lopressor) 5 mg IVP Q6H PRN PRN Reason: Sustained HR > 130 Last Admin: 10/31/16 00:12 Dose: 5 mg Multi-Ingredient Ointment (Hydrophor Oint) 0 gm TOP Q6H [facility] Last Admin: 11/09/16 02:51 Dose: Not Given Ondansetron HCl (Zofran Inj) 4 mg IVP Q4H PRN PRN Reason: Nausea/Vomiting Last Admin: 11/09/16 05:59 Dose: 4 mg Pantoprazole Sodium (Protonix Inj) 40 mg IVP DAILY [facility] Last Admin: 11/08/16 09:52 Dose: 40 mg Petrolatum (Desitin Maximum Strength Topical 40% Oint) 1 gm TOP Q4H PRN PRN Reason: Rash Last Admin: 10/23/16 22:39 Dose: 1 applic Propranolol HCl (Inderal La) 120 mg PO DAILY [facility] Last Admin: 11/08/16 09:52 Dose: 120 mg Sucralfate (Carafate Oral Susp) 1 gm PO BID [facility] Last Admin: 11/08/16 18:24 Dose: 1 gm Tobramycin Sulfate (Tobrex 0.3% Oph Soln) 1 drop OU QID [facility] Last Admin: 11/08/16 22:07 Dose: 1 drop Valganciclovir (Valcyte) 900 mg PO DAILY [facility] Last Admin: 11/08/16 09:55 Dose: 900 mg - Labs Labs: 11/09/16 05:30 11/09/16 05:30 PT 14.7 Seconds (9.9-11.8) H 11/07/16 07:00 INR 1.36 (0.93-1.08) H 11/07/16 07:00 APTT 33.1 Seconds (23.7-30.8) H 11/07/16 07:00 - Constitutional Appears: Chronically Ill - Head Exam Head Exam: ATRAUMATIC, NORMOCEPHALIC - Eye Exam Eye Exam: Normal appearance - ENT Exam ENT Exam: Mucous Membranes Dry - Respiratory Exam Respiratory Exam: NORMAL BREATHING PATTERN - Cardiovascular Exam Cardiovascular Exam: RRR, +S1, +S2 - GI/Abdominal Exam GI & Abdominal Exam: Distended, Tenderness, Hyperactive Bowel Sounds - Extremities Exam Extremities Exam: Joint Swelling, Pedal Edema - Skin Skin Exam: Normal Color, Warm Assessment and Plan (1) Diarrhea Status: Acute (2) Renal failure Status: Acute (3) Abdominal pain Status: Acute (4) Colon tumor Status: Chronic (5) Hypoalbuminemia Status: Acute - Assessment and Plan (Free Text) Assessment: Assessment and Plan (1) Diarrhea Assessment & Plan: PERSISTS, STENOTIC LESION Status: Acute (2) Renal failure Assessment & Plan: LARGELY PRERENAL 2/2 HYPERCATABOLIC STATE Status: Acute (3) Abdominal pain Assessment & Plan: 2/2 COLONIC MASS, STENOTIC LESION Status: Acute (4) Colon tumor Assessment & Plan: STAGE IV, BONE METS Status: Chronic (5) Hypoalbuminemia Assessment & Plan: SEVERE MALNUTRITION, CON'T EFRA Status: Acute
[2016-11-09] MEDS: Micafungin 100 MG in Sodium Chloride 0.9% 100 ML IV SCH (10:30)
[2016-11-09] MEDS: Propranolol 60 mg ER Cap PO SCH (10:30)
[2016-11-09] MEDS: Tobramycin 0.3% OPHT SOLN OU SCH ×4 (10:30→21:20)
[2016-11-09] MEDS: Bismuth Subsalicylate 262 mg/15 ml Sus (240 ml) PO SCH ×2 (10:30→17:01)
[2016-11-09] MEDS: Sucralfate 1 gm/10 ml Oral Susp UD PO SCH ×2 (10:31→17:01)
[2016-11-09] MEDS: Collagenase 250 Units/gm Ointment(30 gm) TOP SCH ×2 (10:32→17:01)
[2016-11-09] MEDS: Multivitamin (MVI) 10 ML in Amino/Dext 4.25/5 2,000 ML IV SCH (17:13)
--- NOTE | 2016-11-09 21:17 | CP.PCM.PN ---
Subjective - Date & Time of Evaluation Date of Evaluation: 11/09/16 Time of Evaluation: 22:00 - Subjective Subjective: patient seen and examined in bed.No complaints of nausea vomiting fever or chills. 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.total dose of infusion is 2.5 mg in 4 hours Objective - Vital Signs/Intake and Output Vital Signs (last 24 hours): Temp Pulse Resp BP Pulse Ox 99.0 F 112 H 19 151/90 H 98 11/09/16 06:00 11/09/16 10:30 11/09/16 06:00 11/09/16 10:31 11/09/16 06:00 Intake and Output: 11/09/16 11/09/16 06:59 18:59 Intake Total 1446 420 Output Total 900 1400 Balance 546 -980 - Medications Medications: Current Medications Acetaminophen (Tylenol 650 Mg Supp) 650 mg RC Q4H PRN PRN Reason: Fever >100.4 F Last Admin: 11/01/16 21:18 Dose: 650 mg Acetaminophen (Tylenol 650mg/20.3ml Solution Ud) 650 mg PO Q4 PRN PRN Reason: Fever >100.4 F Bismuth Subsalicylate (Pepto-Bismol) 262 mg PO BID [facility] Last Admin: 11/09/16 10:30 Dose: 262 mg Collagenase (Santyl) 1 gm TOP BID [facility] Last Admin: 11/09/16 10:32 Dose: 1 applic Al Hydrox/Mg Hydrox/Simethicone 30 ml/Diphenhydramine HCl 75 mg/Lidocaine 30 ml 0 ml PO Q2H PRN PRN Reason: Mouth/Throat Pain Last Admin: 11/07/16 09:00 Dose: 15 ml Diphenhydramine HCl (Benadryl) 25 mg IVP Q4H PRN PRN Reason: Allergy symptoms Last Admin: 11/09/16 00:53 Dose: 25 mg Ergocalciferol (Drisdol 50,000 Intl Units Cap) 1 cap PO Q7D [facility] Last Admin: 11/05/16 14:21 Dose: 1 cap Furosemide (Lasix) 20 mg IVP Q12 [facility] Last Admin: 11/09/16 10:31 Dose: 20 mg Home Med (Home Med) 1 unit PO Q12H PRN PRN Reason: Inflammation Last Admin: 10/18/16 11:03 Dose: 1 unit Hydralazine HCl (Apresoline) 10 mg PO Q6H PRN PRN Reason: SBP >170 Last Admin: 11/04/16 18:04 Dose: 10 mg Micafungin Sodium 100 mg/ (Sodium Chloride) 100 mls @ 100 mls/hr IV DAILY [facility] PRN Reason: Protocol Stop: 11/18/16 11:00 Last Admin: 11/09/16 10:30 Dose: 100 mls/hr Hydromorphone HCl (Dilaudid-Hp 1 Mg/Ml Woodworking Machine Setter) 25 mls @ 0.5 mls/hr IV PRN PRN; Protocol PRN Reason: MOBILE DISC JOCKEY PER MD ORDER Last Admin: 11/08/16 16:36 Dose: 0.5 mls/hr Metoprolol Tartrate (Lopressor) 5 mg IVP Q6H PRN PRN Reason: Sustained HR > 130 Last Admin: 10/31/16 00:12 Dose: 5 mg Multi-Ingredient Ointment (Hydrophor Oint) 0 gm TOP Q6H [facility] Last Admin: 11/09/16 10:32 Dose: Not Given Ondansetron HCl (Zofran Inj) 4 mg IVP Q4H PRN PRN Reason: Nausea/Vomiting Last Admin: 11/09/16 05:59 Dose: 4 mg Pantoprazole Sodium (Protonix Inj) 40 mg IVP DAILY [facility] Last Admin: 11/09/16 10:31 Dose: 40 mg Petrolatum (Desitin Maximum Strength Topical 40% Oint) 1 gm TOP Q4H PRN PRN Reason: Rash Last Admin: 10/23/16 22:39 Dose: 1 applic Propranolol HCl (Inderal La) 120 mg PO DAILY [facility] Last Admin: 11/09/16 10:30 Dose: 120 mg Sucralfate (Carafate Oral Susp) 1 gm PO BID [facility] Last Admin: 11/09/16 10:31 Dose: 1 gm Tobramycin Sulfate (Tobrex 0.3% Ophth Soln) 1 drop OU QID [facility] Last Admin: 11/09/16 10:30 Dose: 1 drop Valganciclovir (Valcyte) 900 mg PO DAILY [facility] Last Admin: 11/09/16 10:31 Dose: 900 mg - Labs Labs: 11/09/16 05:30 11/09/16 05:30 PT 14.7 Seconds (9.9-11.8) H 11/07/16 07:00 INR 1.36 (0.93-1.08) H 11/07/16 07:00 APTT 33.1 Seconds (23.7-30.8) H 11/07/16 07:00 - Constitutional Appears: Well, Non-toxic, Older Than Stated Age - Head Exam Head Exam: ATRAUMATIC - Eye Exam Eye Exam: EOMI, Normal appearance, PERRL Pupil Exam: PERRL - ENT Exam ENT Exam: Mucous Membranes Moist Additional comments: previously noted mucosits appears to be improving - Neck Exam Neck Exam: Full ROM, Normal Inspection. absent: Lymphadenopathy - Respiratory Exam Respiratory Exam: Clear to Ausculation Bilateral - Cardiovascular Exam Cardiovascular Exam: REGULAR RHYTHM - GI/Abdominal Exam GI & Abdominal Exam: absent: Tenderness Additional comments: abdomen is mildly distended with left lower quadrant tenderness.No rebound rigidity or guarding distended - Rectal Exam Rectal Exam: Deferred - Exam Exam: NORMAL INSPECTION - Extremities Exam Extremities Exam: Calf Tenderness, Full ROM, Joint Swelling, Normal Capillary Refill, Normal Inspection, Pedal Edema, Tenderness - Back Exam Back Exam: NORMAL INSPECTION - Neurological Exam Neurological Exam: Awake. absent: Oriented x3 - Psychiatric Exam Psychiatric exam: Normal Affect - Skin Skin Exam: Intact Additional comments: sacral ulcerations stage two with dressing on. 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 continue iv antifungals as per infectious disease prbc transfusion as needed encourage patient to edmond nutrients orally and is on puree foods evaluate for palliative colostomy
[2016-11-09 21:25] LABS: HEMOGLOBIN 10.6 gm/dL (12.0-16.0)
[2016-11-09] MEDS: HYDROmorphone 1 mg/ml PCA 25 ML IV PRN (23:34)
[2016-11-10] MEDS: Petrolatum-Mineral Oil Oint (100gm) TOP SCH (03:33)
[2016-11-10] MEDS: DiphenhydrAMINE 50 mg/ml Inj IVP PRN (03:33)
[2016-11-10] MEDS: Acetaminophen 650mg/20.3ml solution UD PO PRN (03:33)
[2016-11-10 07:36] LABS: ALB/GLOB RATIO 0.7 (1.1-1.8); ALBUMIN 1.9 g/dL (3.0-4.8); ALT/SGPT 20 U/L (7-56); AST/SGOT 11 U/L (15-39); BLOOD UREA NITROGEN 99 mg/dL (7-21); CALCIUM 8.1 mg/dL (8.4-10.5); GFR AFRICAN-AMERICAN > 60; GFR NON-AFRICAN AMERICAN 50
--- NOTE | 2016-11-10 08:16 | CP.PCM.PN ---
Subjective - Date & Time of Evaluation Date of Evaluation: 11/10/16 Time of Evaluation: 08:03 - Subjective Subjective: General Surgery Dr. Jeffers Pt S&E @bedside. 2 episodes of dark red stool overnight per nursing notes. pt tolerating diet. denies N/V. Objective - Vital Signs/Intake and Output Vital Signs (last 24 hours): Temp Pulse Resp BP Pulse Ox 98 F 106 H 19 123/74 99 11/10/16 07:48 11/10/16 07:48 11/10/16 07:48 11/10/16 07:48 11/10/16 07:48 Intake and Output: 11/10/16 11/10/16 06:59 18:59 Intake Total 360 2220 Output Total 900 1550 Balance -540 670 - Medications Medications: Current Medications Acetaminophen (Tylenol 650 Mg Supp) 650 mg RC Q4H PRN PRN Reason: Fever >100.4 F Last Admin: 11/01/16 21:18 Dose: 650 mg Acetaminophen (Tylenol 650mg/20.3ml Solution Ud) 650 mg PO Q4 PRN PRN Reason: Fever >100.4 F Last Admin: 11/10/16 03:33 Dose: 650 mg Bismuth Subsalicylate (Pepto-Bismol) 262 mg PO BID [facility] Last Admin: 11/09/16 17:01 Dose: Not Given Collagenase (Santyl) 1 gm TOP BID [facility] Last Admin: 11/09/16 17:01 Dose: Not Given Al Hydrox/Mg Hydrox/Simethicone 30 ml/Diphenhydramine HCl 75 mg/Lidocaine 30 ml 0 ml PO Q2H PRN PRN Reason: Mouth/Throat Pain Last Admin: 11/07/16 09:00 Dose: 15 ml Diphenhydramine HCl (Benadryl) 25 mg IVP Q4H PRN PRN Reason: Allergy symptoms Last Admin: 11/10/16 03:33 Dose: 25 mg Ergocalciferol (Drisdol 50,000 Intl Units Cap) 1 cap PO Q7D [facility] Last Admin: 11/05/16 14:21 Dose: 1 cap Furosemide (Lasix) 20 mg IVP Q12 [facility] Last Admin: 11/09/16 21:17 Dose: 20 mg Home Med (Home Med) 1 unit PO Q12H PRN PRN Reason: Inflammation Last Admin: 10/18/16 11:03 Dose: 1 unit Hydralazine HCl (Apresoline) 10 mg PO Q6H PRN PRN Reason: SBP >170 Last Admin: 11/04/16 18:04 Dose: 10 mg Micafungin Sodium 100 mg/ (Sodium Chloride) 100 mls @ 100 mls/hr IV DAILY [facility] PRN Reason: Protocol Stop: 11/18/16 11:00 Last Admin: 11/09/16 10:30 Dose: 100 mls/hr Hydromorphone HCl (Dilaudid-Hp 1 Mg/Ml Processing Clerk) 25 mls @ 0.5 mls/hr IV PRN PRN; Protocol PRN Reason: INSURANCE AGENTS SUPERVISOR PER MD ORDER Last Admin: 11/09/16 23:34 Dose: 0.5 mls/hr Multivitamins/Vitamin C 10 ml/ (Amino Acids) 2,010 mls @ 83 mls/hr IV .Q24H [facility] Last Admin: 11/09/16 17:13 Dose: 83 mls/hr Metoprolol Tartrate (Lopressor) 5 mg IVP Q6H PRN PRN Reason: Sustained HR > 130 Last Admin: 10/31/16 00:12 Dose: 5 mg Multi-Ingredient Ointment (Hydrophor Oint) 0 gm TOP Q6H [facility] Last Admin: 11/10/16 03:33 Dose: Not Given Ondansetron HCl (Zofran Inj) 4 mg IVP Q4H PRN PRN Reason: Nausea/Vomiting Last Admin: 11/09/16 05:59 Dose: 4 mg Pantoprazole Sodium (Protonix Inj) 40 mg IVP DAILY [facility] Last Admin: 11/09/16 10:31 Dose: 40 mg Petrolatum (Desitin Maximum Strength Topical 40% Oint) 1 gm TOP Q4H PRN PRN Reason: Rash Last Admin: 10/23/16 22:39 Dose: 1 applic Propranolol HCl (Inderal La) 120 mg PO DAILY [facility] Last Admin: 11/09/16 10:30 Dose: 120 mg Sucralfate (Carafate Oral Susp) 1 gm PO BID [facility] Last Admin: 11/09/16 17:01 Dose: Not Given Tobramycin Sulfate (Tobrex 0.3% Oph Soln) 1 drop OU QID [facility] Last Admin: 11/09/16 21:20 Dose: 1 drop Valganciclovir (Valcyte) 900 mg PO DAILY [facility] Last Admin: 11/09/16 10:31 Dose: 900 mg - Labs Labs: 11/09/16 19:46 11/10/16 07:10 PT 14.7 Seconds (9.9-11.8) H 11/07/16 07:00 INR 1.36 (0.93-1.08) H 11/07/16 07:00 APTT 33.1 Seconds (23.7-30.8) H 11/07/16 07:00 - Constitutional Appears: No Acute Distress, Cachectic, Chronically Ill - Head Exam Head Exam: NORMAL INSPECTION - Eye Exam Eye Exam: Normal appearance - ENT Exam ENT Exam: Mucous Membranes Moist - Respiratory Exam Respiratory Exam: NORMAL BREATHING PATTERN. absent: Accessory Muscle Use, Respiratory Distress - Cardiovascular Exam Cardiovascular Exam: Tachycardia - GI/Abdominal Exam GI & Abdominal Exam: Soft, Tenderness (TTP diffusely). absent: Distended, Guarding, Rebound - Extremities Exam Extremities Exam: Pedal Edema - Neurological Exam Neurological Exam: Alert, Awake, Oriented x3 - Psychiatric Exam Psychiatric exam: Normal Affect, Normal Mood - Skin Skin Exam: Dry, Normal Color, Warm - Additional Findings Additional findings: sacral wound to be examined w/ nursing when dressings changed Assessment and Plan - Assessment and Plan (Free Text) Assessment: 61 y/o F w/ stage IV colon CA and lower GI bleeding from ulcerated sigmoid mass resulting in symptomatic anemia - cont medical management per primary and heme/onc - Monitor H/H, transfuse prn - f/u GI recs - cont wound care by nursing - Medical optimization for probable colostomy for colonic strictures and ulcerated sigmoid mass Pt discussed w/ Dr. Zeyad Mathew DO PGY2
[2016-11-10 08:49] LABS: BASO # 0.01 K/mm3 (0.0-2.0); BASO % 0.1 % (0.0-3.0); EOS # 0.2 (0.0-0.7); EOS % 2.4 % (1.5-5.0); GRAN # 6.39 (1.4-6.5); GRAN % 86.6 % (50.0-68.0); LYMPH # 0.6 (1.2-3.4); LYMPH % 7.4 % (22.0-35.0); MEAN CELL VOLUME 96.1 fL (80.0-105.0); MEAN CORPUSCULAR HEMOGLOBIN 31.7 pg (25.0-35.0); MEAN CORPUSCULAR HGB CONC 32.9 g/dl (31.0-37.0); MONO # 0.3 (0.1-0.6); MONO % 3.5 % (1.0-6.0); PLATELET COUNT 51 10^3/uL (120.0-450.0); RED CELL DISTRIBUTION WIDTH 17.4 % (11.5-14.5); WHITE BLOOD COUNT 7.4 10^3/ul (4.5-11.0)
[2016-11-10 08:51] LABS: HEMOGLOBIN 5.7 gm/dL (12.0-16.0)
[2016-11-10] MEDS: Propranolol 60 mg ER Cap PO SCH (10:34)
[2016-11-10] MEDS: Collagenase 250 Units/gm Ointment(30 gm) TOP SCH (10:36)
[2016-11-10] MEDS: Bismuth Subsalicylate 262 mg/15 ml Sus (240 ml) PO SCH (10:36)
[2016-11-10] MEDS: Tobramycin 0.3% OPHT SOLN OU SCH ×2 (10:42→22:04)
[2016-11-10 10:44] LABS: EOS # 0.1 (0.0-0.7); EOS % 1.9 % (1.5-5.0); GRAN # 5.59 (1.4-6.5); GRAN % 86.3 % (50.0-68.0); LYMPH # 0.5 (1.2-3.4); LYMPH % 8.3 % (22.0-35.0); MEAN PLATELET VOLUME 13.2 fl (7.0-11.0); MONO # 0.2 (0.1-0.6); MONO % 3.5 % (1.0-6.0); WHITE BLOOD COUNT 6.5 10^3/ul (4.5-11.0)
[2016-11-10] MEDS: Micafungin 100 MG in Sodium Chloride 0.9% 100 ML IV SCH (10:46)
[2016-11-10 10:50] LABS: HEMOGLOBIN 5.4 gm/dL (12.0-16.0); PLATELET COUNT 49 10^3/uL (120.0-450.0)
[2016-11-10] MEDS ORDERED: DiphenhydrAMINE 50 mg/ml Inj IVP ONE (11:02)
--- NOTE | 2016-11-10 11:12 | CP.PCM.PN ---
Subjective - Date & Time of Evaluation Date of Evaluation: 11/10/16 Time of Evaluation: 07:00 - Subjective Subjective: WEAK Objective - Vital Signs/Intake and Output Vital Signs (last 24 hours): Temp Pulse Resp BP Pulse Ox 98 F 106 H 19 123/74 99 11/10/16 07:48 11/10/16 10:34 11/10/16 07:48 11/10/16 10:42 11/10/16 07:48 Intake and Output: 11/10/16 11/10/16 06:59 18:59 Intake Total 360 2220 Output Total 900 1550 Balance -540 670 - Medications Medications: Current Medications Acetaminophen (Tylenol 650 Mg Supp) 650 mg RC Q4H PRN PRN Reason: Fever >100.4 F Last Admin: 11/01/16 21:18 Dose: 650 mg Acetaminophen (Tylenol 650mg/20.3ml Solution Ud) 650 mg PO Q4 PRN PRN Reason: Fever >100.4 F Last Admin: 11/10/16 03:33 Dose: 650 mg Bismuth Subsalicylate (Pepto-Bismol) 262 mg PO BID [facility] Last Admin: 11/10/16 10:36 Dose: Not Given Collagenase (Santyl) 1 gm TOP BID [facility] Last Admin: 11/10/16 10:36 Dose: 1 applic Al Hydrox/Mg Hydrox/Simethicone 30 ml/Diphenhydramine HCl 75 mg/Lidocaine 30 ml 0 ml PO Q2H PRN PRN Reason: Mouth/Throat Pain Last Admin: 11/07/16 09:00 Dose: 15 ml Diphenhydramine HCl (Benadryl) 25 mg IVP Q4H PRN PRN Reason: Allergy symptoms Last Admin: 11/10/16 03:33 Dose: 25 mg Ergocalciferol (Drisdol 50,000 Intl Units Cap) 1 cap PO Q7D [facility] Last Admin: 11/05/16 14:21 Dose: 1 cap Furosemide (Lasix) 20 mg IVP Q12 [facility] Last Admin: 11/10/16 10:42 Dose: 20 mg Home Med (Home Med) 1 unit PO Q12H PRN PRN Reason: Inflammation Last Admin: 10/18/16 11:03 Dose: 1 unit Hydralazine HCl (Apresoline) 10 mg PO Q6H PRN PRN Reason: SBP >170 Last Admin: 11/04/16 18:04 Dose: 10 mg Micafungin Sodium 100 mg/ (Sodium Chloride) 100 mls @ 100 mls/hr IV DAILY [facility] PRN Reason: Protocol Stop: 11/18/16 11:00 Last Admin: 11/10/16 10:46 Dose: 100 mls/hr Hydromorphone HCl (Dilaudid-Hp 1 Mg/Ml All Terrain Vehicle Technician) 25 mls @ 0.5 mls/hr IV PRN PRN; Protocol PRN Reason: MASH PROCESSING OPERATOR PER MD ORDER Last Admin: 11/09/16 23:34 Dose: 0.5 mls/hr Multivitamins/Vitamin C 10 ml/ (Amino Acids) 2,010 mls @ 83 mls/hr IV .Q24H [facility] Last Admin: 11/09/16 17:13 Dose: 83 mls/hr Metoprolol Tartrate (Lopressor) 5 mg IVP Q6H PRN PRN Reason: Sustained HR > 130 Last Admin: 10/31/16 00:12 Dose: 5 mg Multi-Ingredient Ointment (Hydrophor Oint) 0 gm TOP Q6H [facility] Last Admin: 11/10/16 03:33 Dose: Not Given Ondansetron HCl (Zofran Inj) 4 mg IVP Q4H PRN PRN Reason: Nausea/Vomiting Last Admin: 11/09/16 05:59 Dose: 4 mg Pantoprazole Sodium (Protonix Inj) 40 mg IVP DAILY [facility] Last Admin: 11/10/16 10:35 Dose: 40 mg Petrolatum (Desitin Maximum Strength Topical 40% Oint) 1 gm TOP Q4H PRN PRN Reason: Rash Last Admin: 10/23/16 22:39 Dose: 1 applic Propranolol HCl (Inderal La) 120 mg PO DAILY [facility] Last Admin: 11/10/16 10:34 Dose: 120 mg Sucralfate (Carafate Oral Susp) 1 gm PO BID [facility] Last Admin: 11/09/16 17:01 Dose: Not Given Tobramycin Sulfate (Tobrex 0.3% Oph Soln) 1 drop OU QID [facility] Last Admin: 11/10/16 10:42 Dose: 1 drop Valganciclovir (Valcyte) 900 mg PO DAILY [facility] Last Admin: 11/10/16 10:34 Dose: 900 mg - Labs Labs: 11/10/16 10:30 11/10/16 07:10 PT 14.7 Seconds (9.9-11.8) H 11/07/16 07:00 INR 1.36 (0.93-1.08) H 11/07/16 07:00 APTT 33.1 Seconds (23.7-30.8) H 11/07/16 07:00 - Constitutional Appears: Well - Head Exam Head Exam: ATRAUMATIC, NORMAL INSPECTION, NORMOCEPHALIC - Eye Exam Eye Exam: EOMI, Normal appearance, PERRL Pupil Exam: NORMAL ACCOMODATION, PERRL - ENT Exam ENT Exam: Mucous Membranes Moist, Normal Exam - Neck Exam Neck Exam: Full ROM, Normal Inspection. absent: Lymphadenopathy - Respiratory Exam Respiratory Exam: Clear to Ausculation Bilateral, NORMAL BREATHING PATTERN - Cardiovascular Exam Cardiovascular Exam: REGULAR RHYTHM, +S1, +S2. absent: Murmur - GI/Abdominal Exam GI & Abdominal Exam: Soft, Normal Bowel Sounds. absent: Tenderness - Rectal Exam Rectal Exam: NORMAL INSPECTION - Exam Exam: Circumcision, NORMAL INSPECTION External exam: NORMAL EXTERNAL EXAM Speculum exam: NORMAL SPECULUM EXAM Bimanual exam: NORMAL BIMANUAL EXAM - Extremities Exam Extremities Exam: Full ROM, Normal Capillary Refill, Normal Inspection. absent : Joint Swelling, Pedal Edema - Back Exam Back Exam: NORMAL INSPECTION - Neurological Exam Neurological Exam: Alert, Awake, CN II-XII Intact, Normal Gait, Oriented x3 - Psychiatric Exam Psychiatric exam: Normal Affect, Normal Mood - Skin Skin Exam: Dry, Intact, Normal Color, Warm Assessment and Plan (1) Metastasis from colon cancer Status: Acute (2) Fungemia Status: Acute - Assessment and Plan (Free Text) Plan: PRESENT TX REPEAT BC NOW AGAIN YEAST IN ONE BOTTLE WILL REPEAT BC
[2016-11-10 11:19] LABS: MEAN CORPUSCULAR HEMOGLOBIN 31.1 pg (25.0-35.0); MEAN CORPUSCULAR HGB CONC 32.4 g/dl (31.0-37.0); RBC 1.77 10^6/uL (3.5-6.1); RED CELL DISTRIBUTION WIDTH 17.4 % (11.5-14.5)
[2016-11-10] MEDS: Sucralfate 1 gm/10 ml Oral Susp UD PO SCH (12:15)
[2016-11-10] MEDS: HYDROmorphone 1 mg/ml PCA 25 ML IV PRN (21:58)
[2016-11-10] MEDS: Multivitamin (MVI) 10 ML in Amino/Dext 4.25/5 2,000 ML IV SCH (22:50)
[2016-11-11 07:00] LABS: MEAN CELL VOLUME 88.3 fL (80.0-105.0); MEAN CORPUSCULAR HEMOGLOBIN 30.4 pg (25.0-35.0); MEAN CORPUSCULAR HGB CONC 34.4 g/dl (31.0-37.0); MEAN PLATELET VOLUME 10.7 fl (7.0-11.0); RBC 2.14 10^6/uL (3.5-6.1); WHITE BLOOD COUNT 5.7 10^3/ul (4.5-11.0)
[2016-11-11 07:02] LABS: HEMOGLOBIN 6.5 gm/dL (12.0-16.0)
--- NOTE | 2016-11-11 07:13 | CP.PCM.PN ---
Subjective - Date & Time of Evaluation Date of Evaluation: 11/11/16 Time of Evaluation: 06:40 - Subjective Subjective: General Surgery Dr. Jeffers Pt S&E @bedside. Pt received 3 units pRBC, 1 unit platelets yesterday and overnight, H/H stable. No bloody BMs overnight or this AM. Pt improved. pain well controlled. tolerating diet. denies F/C, N/C, D/C. Objective - Vital Signs/Intake and Output Vital Signs (last 24 hours): Temp Pulse Resp BP Pulse Ox 98.2 F 103 H 20 119/92 H 99 11/11/16 02:14 11/11/16 06:00 11/11/16 02:14 11/11/16 02:14 11/10/16 07:48 Intake and Output: 11/11/16 11/11/16 06:59 18:59 Intake Total 2290 Output Total 1050 Balance 1240 - Medications Medications: Current Medications Acetaminophen (Tylenol 650 Mg Supp) 650 mg RC Q4H PRN PRN Reason: Fever >100.4 F Last Admin: 11/01/16 21:18 Dose: 650 mg Acetaminophen (Tylenol 650mg/20.3ml Solution Ud) 650 mg PO Q4 PRN PRN Reason: Fever >100.4 F Last Admin: 11/10/16 03:33 Dose: 650 mg Bismuth Subsalicylate (Pepto-Bismol) 262 mg PO BID [facility] Last Admin: 11/10/16 10:36 Dose: Not Given Collagenase (Santyl) 1 gm TOP BID [facility] Last Admin: 11/10/16 10:36 Dose: 1 applic Al Hydrox/Mg Hydrox/Simethicone 30 ml/Diphenhydramine HCl 75 mg/Lidocaine 30 ml 0 ml PO Q2H PRN PRN Reason: Mouth/Throat Pain Last Admin: 11/07/16 09:00 Dose: 15 ml Diphenhydramine HCl (Benadryl) 25 mg IVP Q4H PRN PRN Reason: Allergy symptoms Last Admin: 11/10/16 03:33 Dose: 25 mg Ergocalciferol (Drisdol 50,000 Intl Units Cap) 1 cap PO Q7D [facility] Last Admin: 11/05/16 14:21 Dose: 1 cap Furosemide (Lasix) 20 mg IVP Q12 [facility] Last Admin: 11/10/16 22:08 Dose: 20 mg Home Med (Home Med) 1 unit PO Q12H PRN PRN Reason: Inflammation Last Admin: 10/18/16 11:03 Dose: 1 unit Hydralazine HCl (Apresoline) 10 mg PO Q6H PRN PRN Reason: SBP >170 Last Admin: 11/04/16 18:04 Dose: 10 mg Micafungin Sodium 100 mg/ (Sodium Chloride) 100 mls @ 100 mls/hr IV DAILY [facility] PRN Reason: Protocol Stop: 11/18/16 11:00 Last Admin: 11/10/16 10:46 Dose: 100 mls/hr Hydromorphone HCl (Dilaudid-Hp 1 Mg/Ml Fusion Operator) 25 mls @ 0.5 mls/hr IV PRN PRN; Protocol PRN Reason: RN MDS PER MD ORDER Last Admin: 11/10/16 21:58 Dose: 0.5 mls/hr Multivitamins/Vitamin C 10 ml/ (Amino Acids) 2,010 mls @ 83 mls/hr IV .Q24H [facility] Last Admin: 11/10/16 22:50 Dose: 83 mls/hr Metoprolol Tartrate (Lopressor) 5 mg IVP Q6H PRN PRN Reason: Sustained HR > 130 Last Admin: 10/31/16 00:12 Dose: 5 mg Multi-Ingredient Ointment (Hydrophor Oint) 0 gm TOP Q6H [facility] Last Admin: 11/10/16 03:33 Dose: Not Given Ondansetron HCl (Zofran Inj) 4 mg IVP Q4H PRN PRN Reason: Nausea/Vomiting Last Admin: 11/10/16 22:02 Dose: 4 mg Pantoprazole Sodium (Protonix Inj) 40 mg IVP Q12 [facility] Last Admin: 11/10/16 22:06 Dose: 40 mg Petrolatum (Desitin Maximum Strength Topical 40% Oint) 1 gm TOP Q4H PRN PRN Reason: Rash Last Admin: 10/23/16 22:39 Dose: 1 applic Propranolol HCl (Inderal La) 120 mg PO DAILY [facility] Last Admin: 11/10/16 10:34 Dose: 120 mg Sucralfate (Carafate Oral Susp) 1 gm PO BID [facility] Last Admin: 11/10/16 12:15 Dose: 1 gm Tobramycin Sulfate (Tobrex 0.3% Ophth Soln) 1 drop OU QID [facility] Last Admin: 11/10/16 22:04 Dose: 1 drop Valganciclovir (Valcyte) 900 mg PO DAILY [facility] Last Admin: 11/10/16 10:34 Dose: 900 mg - Labs Labs: 11/11/16 06:00 11/10/16 07:10 PT 14.7 Seconds (9.9-11.8) H 11/07/16 07:00 INR 1.36 (0.93-1.08) H 11/07/16 07:00 APTT 33.1 Seconds (23.7-30.8) H 11/07/16 07:00 - Constitutional Appears: Non-toxic, No Acute Distress, Cachectic, Chronically Ill - Head Exam Head Exam: NORMAL INSPECTION - Eye Exam Eye Exam: Normal appearance - ENT Exam ENT Exam: Mucous Membranes Moist - Respiratory Exam Respiratory Exam: NORMAL BREATHING PATTERN. absent: Accessory Muscle Use, Respiratory Distress - Cardiovascular Exam Cardiovascular Exam: Tachycardia. absent: Bradycardia - GI/Abdominal Exam GI & Abdominal Exam: Soft, Tenderness (minimal diffuse TTP). absent: Distended , Firm, Guarding - Extremities Exam Extremities Exam: Normal Inspection, Pedal Edema - Neurological Exam Neurological Exam: Alert, Awake, Oriented x3 - Psychiatric Exam Psychiatric exam: Normal Affect, Normal Mood - Skin Skin Exam: Dry, Normal Color, Warm - Additional Findings Additional findings: sacral wound to be evaluated w/ nursing Assessment and Plan - Assessment and Plan (Free Text) Assessment: 61 y/o F w/ stage IV colon CA and lower GI bleeding from ulcerated sigmoid mass - cont medical management - Monitor H/H, transfuse prn - cont nursing wound care - optimize medically for possible colostomy 2/2 colonic strictures and ulcerated sigmoid mass Pt discussed w/ Dr. Zeyad Mathew DO PGY2
--- NOTE | 2016-11-11 09:41 | CP.PCM.PN ---
Subjective - Date & Time of Evaluation Date of Evaluation: 11/11/16 Time of Evaluation: 08:30 - Subjective Subjective: Patient with CA Colon with Metastsis,Anaemia, Thrombocytopenia, Sinus Tachycardia. Denies Chest Pain, SOB, Palpitations. Objective - Vital Signs/Intake and Output Vital Signs (last 24 hours): Temp Pulse Resp BP Pulse Ox 97.5 F L 102 H 18 91/62 L 100 11/11/16 07:36 11/11/16 07:36 11/11/16 07:36 11/11/16 07:36 11/11/16 07:36 Intake and Output: 11/11/16 11/11/16 06:59 18:59 Intake Total 2290 Output Total 1050 Balance 1240 - Medications Medications: Current Medications Acetaminophen (Tylenol 650 Mg Supp) 650 mg RC Q4H PRN PRN Reason: Fever >100.4 F Last Admin: 11/01/16 21:18 Dose: 650 mg Acetaminophen (Tylenol 650mg/20.3ml Solution Ud) 650 mg PO Q4 PRN PRN Reason: Fever >100.4 F Last Admin: 11/10/16 03:33 Dose: 650 mg Bismuth Subsalicylate (Pepto-Bismol) 262 mg PO BID [facility] Last Admin: 11/10/16 10:36 Dose: Not Given Collagenase (Santyl) 1 gm TOP BID [facility] Last Admin: 11/10/16 10:36 Dose: 1 applic Al Hydrox/Mg Hydrox/Simethicone 30 ml/Diphenhydramine HCl 75 mg/Lidocaine 30 ml 0 ml PO Q2H PRN PRN Reason: Mouth/Throat Pain Last Admin: 11/07/16 09:00 Dose: 15 ml Diphenhydramine HCl (Benadryl) 25 mg IVP Q4H PRN PRN Reason: Allergy symptoms Last Admin: 11/10/16 03:33 Dose: 25 mg Ergocalciferol (Drisdol 50,000 Intl Units Cap) 1 cap PO Q7D [facility] Last Admin: 11/05/16 14:21 Dose: 1 cap Furosemide (Lasix) 20 mg IVP Q12 [facility] Last Admin: 11/10/16 22:08 Dose: 20 mg Home Med (Home Med) 1 unit PO Q12H PRN PRN Reason: Inflammation Last Admin: 10/18/16 11:03 Dose: 1 unit Hydralazine HCl (Apresoline) 10 mg PO Q6H PRN PRN Reason: SBP >170 Last Admin: 11/04/16 18:04 Dose: 10 mg Micafungin Sodium 100 mg/ (Sodium Chloride) 100 mls @ 100 mls/hr IV DAILY [facility] PRN Reason: Protocol Stop: 11/18/16 11:00 Last Admin: 11/10/16 10:46 Dose: 100 mls/hr Hydromorphone HCl (Dilaudid-Hp 1 Mg/Ml Thoracic Surgeon) 25 mls @ 0.5 mls/hr IV PRN PRN; Protocol 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 Last Admin: 11/10/16 21:58 Dose: 0.5 mls/hr Multivitamins/Vitamin C 10 ml/ (Amino Acids) 2,010 mls @ 83 mls/hr IV .Q24H [facility] Last Admin: 11/10/16 22:50 Dose: 83 mls/hr Metoprolol Tartrate (Lopressor) 5 mg IVP Q6H PRN PRN Reason: Sustained HR > 130 Last Admin: 10/31/16 00:12 Dose: 5 mg Multi-Ingredient Ointment (Hydrophor Oint) 0 gm TOP Q6H [facility] Last Admin: 11/10/16 03:33 Dose: Not Given Ondansetron HCl (Zofran Inj) 4 mg IVP Q4H PRN PRN Reason: Nausea/Vomiting Last Admin: 11/11/16 07:31 Dose: 4 mg Pantoprazole Sodium (Protonix Inj) 40 mg IVP Q12 [facility] Last Admin: 11/10/16 22:06 Dose: 40 mg Petrolatum (Desitin Maximum Strength Topical 40% Oint) 1 gm TOP Q4H PRN PRN Reason: Rash Last Admin: 10/23/16 22:39 Dose: 1 applic Propranolol HCl (Inderal La) 120 mg PO DAILY [facility] Last Admin: 11/10/16 10:34 Dose: 120 mg Sucralfate (Carafate Oral Susp) 1 gm PO BID [facility] Last Admin: 11/10/16 12:15 Dose: 1 gm Tobramycin Sulfate (Tobrex 0.3% Oph Soln) 1 drop OU QID [facility] Last Admin: 11/10/16 22:04 Dose: 1 drop Valganciclovir (Valcyte) 900 mg PO DAILY [facility] Last Admin: 11/10/16 10:34 Dose: 900 mg - Labs Labs: 11/11/16 06:00 11/10/16 07:10 PT 14.7 Seconds (9.9-11.8) H 11/07/16 07:00 INR 1.36 (0.93-1.08) H 11/07/16 07:00 APTT 33.1 Seconds (23.7-30.8) H 11/07/16 07:00 - Constitutional Appears: Non-toxic, No Acute Distress - Eye Exam Eye Exam: EOMI, Normal appearance, PERRL Pupil Exam: NORMAL ACCOMODATION, PERRL Additional comments: Palor - ENT Exam ENT Exam: Mucous Membranes Moist, Normal Exam - Neck Exam Neck Exam: Full ROM, Normal Inspection. absent: Lymphadenopathy - Respiratory Exam Respiratory Exam: Clear to Ausculation Bilateral, NORMAL BREATHING PATTERN - Cardiovascular Exam Cardiovascular Exam: REGULAR RHYTHM, +S1, +S2. absent: Murmur - GI/Abdominal Exam GI & Abdominal Exam: Soft, Normal Bowel Sounds. absent: Tenderness - Exam Exam: Circumcision, NORMAL INSPECTION External exam: NORMAL EXTERNAL EXAM Speculum exam: NORMAL SPECULUM EXAM Bimanual exam: NORMAL BIMANUAL EXAM - Extremities Exam Extremities Exam: Full ROM, Normal Capillary Refill, Normal Inspection. absent : Joint Swelling, Pedal Edema - Back Exam Back Exam: NORMAL INSPECTION - Neurological Exam Neurological Exam: Alert, Awake, CN II-XII Intact, Normal Gait, Oriented x3 - Psychiatric Exam Psychiatric exam: Normal Affect, Normal Mood - Skin Skin Exam: Dry, Intact, Normal Color, Warm Assessment and Plan (1) Anemia Status: Acute (2) Diarrhea Status: Acute (3) Fungemia Status: Acute (4) Hypoalbuminemia Status: Acute (5) Metastasis from colon cancer Status: Acute (6) Neutropenic sepsis Status: Acute (7) Renal failure Status: Acute (8) Thrombocytopenia Status: Acute (9) Abdominal pain Status: Acute (10) Constipation Status: Acute (11) Gastrointestinal hemorrhage Status: Acute (12) Sacral nerve root compression Status: Acute (13) Sciatica Status: Acute (14) Urinary retention Status: Acute (15) Colon tumor Status: Chronic - Assessment and Plan (Free Text) Plan: Heart Rate under control. Recerived Blood Transfusions Yesterday. Will Need additional Blood Transfusions. Contnue Beta Blockers.
--- NOTE | 2016-11-11 10:56 | CP.PCM.PN ---
Subjective - Date & Time of Evaluation Date of Evaluation: 11/11/16 Time of Evaluation: 09:00 - Subjective Subjective: doing poorly WEAK Objective - Vital Signs/Intake and Output Vital Signs (last 24 hours): Temp Pulse Resp BP Pulse Ox 97.6 F 97 H 16 124/76 100 11/11/16 10:21 11/11/16 10:21 11/11/16 10:21 11/11/16 10:21 11/11/16 07:36 Intake and Output: 11/11/16 11/11/16 06:59 18:59 Intake Total 2290 0 Output Total 1050 Balance 1240 0 - Medications Medications: Current Medications Acetaminophen (Tylenol 650 Mg Supp) 650 mg RC Q4H PRN PRN Reason: Fever >100.4 F Last Admin: 11/01/16 21:18 Dose: 650 mg Acetaminophen (Tylenol 650mg/20.3ml Solution Ud) 650 mg PO Q4 PRN PRN Reason: Fever >100.4 F Last Admin: 11/10/16 03:33 Dose: 650 mg Bismuth Subsalicylate (Pepto-Bismol) 262 mg PO BID [facility] Last Admin: 11/10/16 10:36 Dose: Not Given Collagenase (Santyl) 1 gm TOP BID [facility] Last Admin: 11/10/16 10:36 Dose: 1 applic Al Hydrox/Mg Hydrox/Simethicone 30 ml/Diphenhydramine HCl 75 mg/Lidocaine 30 ml 0 ml PO Q2H PRN PRN Reason: Mouth/Throat Pain Last Admin: 11/07/16 09:00 Dose: 15 ml Diphenhydramine HCl (Benadryl) 25 mg IVP Q4H PRN PRN Reason: Allergy symptoms Last Admin: 11/10/16 03:33 Dose: 25 mg Ergocalciferol (Drisdol 50,000 Intl Units Cap) 1 cap PO Q7D [facility] Last Admin: 11/05/16 14:21 Dose: 1 cap Furosemide (Lasix) 20 mg IVP Q12 [facility] Last Admin: 11/10/16 22:08 Dose: 20 mg Home Med (Home Med) 1 unit PO Q12H PRN PRN Reason: Inflammation Last Admin: 10/18/16 11:03 Dose: 1 unit Hydralazine HCl (Apresoline) 10 mg PO Q6H PRN PRN Reason: SBP >170 Last Admin: 11/04/16 18:04 Dose: 10 mg Micafungin Sodium 100 mg/ (Sodium Chloride) 100 mls @ 100 mls/hr IV DAILY [facility] PRN Reason: Protocol Stop: 11/18/16 11:00 Last Admin: 11/10/16 10:46 Dose: 100 mls/hr Hydromorphone HCl (Dilaudid-Hp 1 Mg/Ml Product Delivery Specialist) 25 mls @ 0.5 mls/hr IV PRN PRN; Protocol 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 MD ORDER Last Admin: 11/10/16 21:58 Dose: 0.5 mls/hr Multivitamins/Vitamin C 10 ml/ (Amino Acids) 2,010 mls @ 83 mls/hr IV .Q24H [facility] Last Admin: 11/10/16 22:50 Dose: 83 mls/hr Metoprolol Tartrate (Lopressor) 5 mg IVP Q6H PRN PRN Reason: Sustained HR > 130 Last Admin: 10/31/16 00:12 Dose: 5 mg Multi-Ingredient Ointment (Hydrophor Oint) 0 gm TOP Q6H [facility] Last Admin: 11/10/16 03:33 Dose: Not Given Ondansetron HCl (Zofran Inj) 4 mg IVP Q4H PRN PRN Reason: Nausea/Vomiting Last Admin: 11/11/16 07:31 Dose: 4 mg Pantoprazole Sodium (Protonix Inj) 40 mg IVP Q12 [facility] Last Admin: 11/10/16 22:06 Dose: 40 mg Petrolatum (Desitin Maximum Strength Topical 40% Oint) 1 gm TOP Q4H PRN PRN Reason: Rash Last Admin: 10/23/16 22:39 Dose: 1 applic Propranolol HCl (Inderal La) 120 mg PO DAILY [facility] Last Admin: 11/10/16 10:34 Dose: 120 mg Sucralfate (Carafate Oral Susp) 1 gm PO BID [facility] Last Admin: 11/10/16 12:15 Dose: 1 gm Tobramycin Sulfate (Tobrex 0.3% Ophth Soln) 1 drop OU QID [facility] Last Admin: 11/10/16 22:04 Dose: 1 drop Valganciclovir (Valcyte) 900 mg PO DAILY [facility] Last Admin: 11/10/16 10:34 Dose: 900 mg - Labs Labs: 11/11/16 06:00 11/10/16 07:10 PT 14.7 Seconds (9.9-11.8) H 11/07/16 07:00 INR 1.36 (0.93-1.08) H 11/07/16 07:00 APTT 33.1 Seconds (23.7-30.8) H 11/07/16 07:00 - Constitutional Appears: Well - Head Exam Head Exam: ATRAUMATIC, NORMAL INSPECTION, NORMOCEPHALIC - Eye Exam Eye Exam: EOMI, Normal appearance, PERRL Pupil Exam: NORMAL ACCOMODATION, PERRL - ENT Exam ENT Exam: Mucous Membranes Moist, Normal Exam - Neck Exam Neck Exam: Full ROM, Normal Inspection. absent: Lymphadenopathy - Respiratory Exam Respiratory Exam: Clear to Ausculation Bilateral, NORMAL BREATHING PATTERN - Cardiovascular Exam Cardiovascular Exam: REGULAR RHYTHM, +S1, +S2. absent: Murmur - GI/Abdominal Exam GI & Abdominal Exam: Soft, Normal Bowel Sounds. absent: Tenderness - Rectal Exam Rectal Exam: NORMAL INSPECTION - Exam Exam: Circumcision, NORMAL INSPECTION External exam: NORMAL EXTERNAL EXAM Speculum exam: NORMAL SPECULUM EXAM Bimanual exam: NORMAL BIMANUAL EXAM - Extremities Exam Extremities Exam: Full ROM, Normal Capillary Refill, Normal Inspection. absent : Joint Swelling, Pedal Edema - Back Exam Back Exam: NORMAL INSPECTION - Neurological Exam Neurological Exam: Alert, Awake, CN II-XII Intact, Normal Gait, Oriented x3 - Psychiatric Exam Psychiatric exam: Normal Affect, Normal Mood - Skin Skin Exam: Dry, Intact, Normal Color, Warm Assessment and Plan (1) Metastasis from colon cancer Status: Acute (2) Fungemia Status: Acute - Assessment and Plan (Free Text) Plan: PRESENT TX REPEAT BC STILL WITH RAMA
[2016-11-11] MEDS: Sucralfate 1 gm/10 ml Oral Susp UD PO SCH ×2 (11:50→18:27)
[2016-11-11] MEDS: Propranolol 60 mg ER Cap PO SCH (11:51)
[2016-11-11] MEDS: Collagenase 250 Units/gm Ointment(30 gm) TOP SCH ×2 (11:52→18:28)
[2016-11-11] MEDS: Micafungin 100 MG in Sodium Chloride 0.9% 100 ML IV SCH (11:53)
[2016-11-11] MEDS: Tobramycin 0.3% OPHT SOLN OU SCH ×4 (11:55→20:32)
[2016-11-11] MEDS: Bismuth Subsalicylate 262 mg/15 ml Sus (240 ml) PO SCH ×2 (11:56→18:28)
--- NOTE | 2016-11-11 12:10 | CP.PCM.PN ---
<Luis Fernando Hendricks MD - Last Filed: 11/11/16 11:58> Subjective - Date & Time of Evaluation Date of Evaluation: 11/11/16 Time of Evaluation: 11:00 - Subjective Subjective: Patient continues to feel fatigue. Received 3 units of PRBC yesterday and 1 unit of plts. Continued to have bloody bowel movement once over night and again this AM. Urine mixed with some blood evident. ROS: denies fevers; chills; n/v; abdominal pain; +cramping, Objective - Vital Signs/Intake and Output Vital Signs (last 24 hours): Temp Pulse Resp BP Pulse Ox 97.6 F 97 H 16 124/76 100 11/11/16 10:21 11/11/16 10:21 11/11/16 10:21 11/11/16 10:21 11/11/16 07:36 Intake and Output: 11/11/16 11/11/16 06:59 18:59 Intake Total 2290 0 Output Total 1050 Balance 1240 0 - Medications Medications: Current Medications Acetaminophen (Tylenol 650 Mg Supp) 650 mg RC Q4H PRN PRN Reason: Fever >100.4 F Last Admin: 11/01/16 21:18 Dose: 650 mg Acetaminophen (Tylenol 650mg/20.3ml Solution Ud) 650 mg PO Q4 PRN PRN Reason: Fever >100.4 F Last Admin: 11/10/16 03:33 Dose: 650 mg Bismuth Subsalicylate (Pepto-Bismol) 262 mg PO BID [facility] Last Admin: 11/10/16 10:36 Dose: Not Given Collagenase (Santyl) 1 gm TOP BID [facility] Last Admin: 11/10/16 10:36 Dose: 1 applic Al Hydrox/Mg Hydrox/Simethicone 30 ml/Diphenhydramine HCl 75 mg/Lidocaine 30 ml 0 ml PO Q2H PRN PRN Reason: Mouth/Throat Pain Last Admin: 11/07/16 09:00 Dose: 15 ml Diphenhydramine HCl (Benadryl) 25 mg IVP Q4H PRN PRN Reason: Allergy symptoms Last Admin: 11/10/16 03:33 Dose: 25 mg Ergocalciferol (Drisdol 50,000 Intl Units Cap) 1 cap PO Q7D [facility] Last Admin: 11/05/16 14:21 Dose: 1 cap Furosemide (Lasix) 20 mg IVP Q12 [facility] Last Admin: 11/10/16 22:08 Dose: 20 mg Home Med (Home Med) 1 unit PO Q12H PRN PRN Reason: Inflammation Last Admin: 10/18/16 11:03 Dose: 1 unit Hydralazine HCl (Apresoline) 10 mg PO Q6H PRN PRN Reason: SBP >170 Last Admin: 11/04/16 18:04 Dose: 10 mg Micafungin Sodium 100 mg/ (Sodium Chloride) 100 mls @ 100 mls/hr IV DAILY [facility] PRN Reason: Protocol Stop: 11/18/16 11:00 Last Admin: 11/10/16 10:46 Dose: 100 mls/hr Hydromorphone HCl (Dilaudid-Hp 1 Mg/Ml Registered Dental Assistant Rda) 25 mls @ 0.5 mls/hr IV PRN PRN; Protocol 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 Last Admin: 11/10/16 21:58 Dose: 0.5 mls/hr Multivitamins/Vitamin C 10 ml/ (Amino Acids) 2,010 mls @ 83 mls/hr IV .Q24H [facility] Last Admin: 11/10/16 22:50 Dose: 83 mls/hr Metoprolol Tartrate (Lopressor) 5 mg IVP Q6H PRN PRN Reason: Sustained HR > 130 Last Admin: 10/31/16 00:12 Dose: 5 mg Multi-Ingredient Ointment (Hydrophor Oint) 0 gm TOP Q6H [facility] Last Admin: 11/10/16 03:33 Dose: Not Given Ondansetron HCl (Zofran Inj) 4 mg IVP Q4H PRN PRN Reason: Nausea/Vomiting Last Admin: 11/11/16 07:31 Dose: 4 mg Pantoprazole Sodium (Protonix Inj) 40 mg IVP Q12 [facility] Last Admin: 11/10/16 22:06 Dose: 40 mg Petrolatum (Desitin Maximum Strength Topical 40% Oint) 1 gm TOP Q4H PRN PRN Reason: Rash Last Admin: 10/23/16 22:39 Dose: 1 applic Propranolol HCl (Inderal La) 120 mg PO DAILY [facility] Last Admin: 11/10/16 10:34 Dose: 120 mg Sucralfate (Carafate Oral Susp) 1 gm PO BID [facility] Last Admin: 11/10/16 12:15 Dose: 1 gm Tobramycin Sulfate (Tobrex 0.3% Ophth Soln) 1 drop OU QID [facility] Last Admin: 11/10/16 22:04 Dose: 1 drop Valganciclovir (Valcyte) 900 mg PO DAILY [facility] Last Admin: 11/10/16 10:34 Dose: 900 mg - Labs Labs: 11/11/16 06:00 11/10/16 07:10 PT 14.7 Seconds (9.9-11.8) H 11/07/16 07:00 INR 1.36 (0.93-1.08) H 11/07/16 07:00 APTT 33.1 Seconds (23.7-30.8) H 11/07/16 07:00 - Constitutional Appears: Non-toxic, Cachectic, Chronically Ill - Head Exam Head Exam: ATRAUMATIC, NORMAL INSPECTION, NORMOCEPHALIC - Eye Exam Eye Exam: absent: Scleral icterus - Respiratory Exam Respiratory Exam: Clear to Ausculation Bilateral, NORMAL BREATHING PATTERN - Cardiovascular Exam Cardiovascular Exam: REGULAR RHYTHM, +S1, +S2. absent: Murmur - GI/Abdominal Exam GI & Abdominal Exam: Distended, Soft, Tenderness, Hyperactive Bowel Sounds. absent: Guarding, Rigid, Rebound - Extremities Exam Extremities Exam: Pedal Edema. absent: Tenderness - Skin Skin Exam: Intact Assessment and Plan (1) Colon tumor Status: Chronic - Assessment and Plan (Free Text) Assessment: Ms. Gibson arik 61 y/o woman with a pmhx significant for stage IV metastatic colorectal cancer c/b stenosis of the sigmoid colon and esophageal ulcerations of unclear eitiology who hospitalization has been complicated by previous neutropenia sepsis and mucositis and now most recently with GI Bleeding (as evinced by melena/hematochezia) and fungemia necessitating treatment with anti- fungals. Patient's on going blood loss is of eminent concern. Depsite receiving 3 units of PRBC's her hgb only increased marginally by 1 unit/dl presumably do to on going loss. Will switch patient to clear fluids and repeat blood cultures. If negative will revisit role for any possible role for palliative colostomy as stool output may be contributing to bleeding that the patient is experiencing. In interim will continue IV ppi, and change diet to clear fluids. Appreciated GI, ID, cardiology, and surgery recommendations in management of this complicated patientd #stage IV metastatic colorectal cancer -holding further cancer specific treatment for now has patient continues to have complications -revisit goals of care during the week #GI bleeding (UGIB vs lower? has melena as well as hemtochezia) -continue CMV empiric treatment due to ulcers found on EGD (though pathology was negative) per GI reccs -continue with IV ppi- -change diet to fluids -reconsult surgery tomorrow regarding suitability of any surigcal intervention particuarlly if cultures clear -transfuse another 1 unit of PRBC today and 1 unit of plts. obtain repeat CBC on hour later if hgb <7 transfuse another unit of PRBC -will additionally obtain coags and DIC panel (INR, PT, PTT, fibrinogen, d-dimer ); depending on any product defeiciencies patient may require additional blood products #Fungemia -last blood culture + for canddia almost one week ago; will repeat -continue anti-fungals per ID management -no fevers #FEN -change to clear fluids -continue with TPN #Dispo -to be determined; over all prognosis is guarded -at minimum would likely require rehab placement FULL CODE Luis Fernando Hendricks MD Oncology Service p: [phone] <Kedar Hendricks P - Last Filed: 11/25/16 01:15> Objective - Vital Signs/Intake and Output Vital Signs (last 24 hours): Temp Pulse Resp BP Pulse Ox 97.1 F L 50 L 18 126/58 L 98 11/25/16 00:00 11/25/16 00:00 11/25/16 00:00 11/25/16 00:00 11/25/16 00:00 Intake and Output: 11/24/16 11/25/16 18:59 06:59 Intake Total 2709 425 Output Total 1980 Balance 729 425 - Medications Medications: Current Medications Acetaminophen (Tylenol 650 Mg Supp) 650 mg RC Q4H PRN PRN Reason: Fever >100.4 F Last Admin: 11/01/16 21:18 Dose: 650 mg Collagenase (Santyl) 1 gm TOP BID [facility] Last Admin: 11/24/16 10:43 Dose: 1 applic Diphenhydramine HCl (Benadryl) 50 mg IVP HS PRN PRN Reason: Insomnia Last Admin: 11/23/16 02:36 Dose: 50 mg Ergocalciferol (Drisdol 50,000 Intl Units Cap) 1 cap PO Q7D [facility] Last Admin: 11/19/16 18:04 Dose: Not Given Fentanyl (Duragesic) 1 patch TD Q72H [facility] Last Admin: 11/22/16 14:30 Dose: 1 patch Ferrous Sulfate (Feosol) 324 mg PO TID [facility] Last Admin: 11/24/16 17:15 Dose: Not Given Furosemide (Lasix) 20 mg IVP Q12 [facility] Last Admin: 11/24/16 23:15 Dose: 20 mg Home Med (Home Med) 1 unit PO Q12H PRN PRN Reason: Inflammation Last Admin: 10/18/16 11:03 Dose: 1 unit Hydromorphone HCl (Dilaudid) 1 mg IVP Q1H PRN PRN Reason: Pain, severe (8-10) Last Admin: 11/25/16 01:00 Dose: 1 mg Daptomycin 440 mg/ Sodium (Chloride) 100 mls @ 200 mls/hr IV Q24H [facility] Stop: 11/27/16 09:01 Last Admin: 11/24/16 19:08 Dose: 200 mls/hr Micafungin Sodium 100 mg/ (Sodium Chloride) 100 mls @ 100 mls/hr IV DAILY [facility] PRN Reason: Protocol Stop: 11/28/16 10:01 Last Admin: 11/24/16 10:35 Dose: 100 mls/hr Potassium Chloride 40 meq/ (Dextrose/Sodium Chloride) 1,020 mls @ 80 mls/hr IV .[id number] [facility] Last Admin: 11/24/16 05:49 Dose: 80 mls/hr Cefepime HCl (Maxipime 1gm) 1 gm in 100 mls @ 100 mls/hr IVPB Q12 [facility] PRN Reason: Protocol Last Admin: 11/24/16 23:16 Dose: 100 mls/hr Magnesium Oxide (Mag-Ox) 400 mg PO BID [facility] Last Admin: 11/24/16 17:16 Dose: Not Given Multi-Ingredient Ointment (Hydrophor Oint) 0 gm TOP Q6H PRN PRN Reason: Dry lip Multivitamins (Thera Tab) 1 tab PO 0800 [facility] Last Admin: 11/24/16 10:38 Dose: Not Given Ondansetron HCl (Zofran Inj) 4 mg IVP Q4H PRN PRN Reason: Nausea/Vomiting Last Admin: 11/24/16 00:05 Dose: 4 mg Pantoprazole Sodium (Protonix Inj) 40 mg IVP Q12 [facility] Last Admin: 11/24/16 23:16 Dose: 40 mg Petrolatum (Desitin Maximum Strength Topical 40% Oint) 1 gm TOP Q4H PRN PRN Reason: Rash Last Admin: 10/23/16 22:39 Dose: 1 applic Potassium Chloride (K-Dur 20 Meq Er Tab) 40 meq PO DAILY [facility] Last Admin: 11/24/16 10:39 Dose: Not Given Propranolol HCl (Inderal La) 120 mg PO DAILY [facility] Last Admin: 11/24/16 10:31 Dose: 120 mg Sucralfate (Carafate Oral Susp) 1 gm PO BID [facility] Last Admin: 11/24/16 19:09 Dose: Not Given - Labs Labs: 11/24/16 07:53 11/24/16 07:53 PT 13.1 Seconds (9.9-11.8) H 11/24/16 10:03 INR 1.21 (0.93-1.08) H 11/24/16 10:03 APTT 31.2 Seconds (23.7-30.8) H 11/24/16 10:03 Attending/Attestation - Attestation I have personally seen and examined this patient.: Yes I have fully participated in the care of the patient.: Yes I have reviewed all pertinent clinical information, including history, physical exam and plan: Yes
--- NOTE | 2016-11-11 12:16 | CP.PCM.PN ---
<Luis Fernando Hendricks MD - Last Filed: 11/11/16 12:10> Subjective - Date & Time of Evaluation Date of Evaluation: 11/10/16 Time of Evaluation: 17:00 - Subjective Subjective: Patient feels fatigue. hgb this morning notable low at 5. Continues to have blood output from stool. Has crampy pains in abdomen. 12 ROS otherwise negative Objective - Vital Signs/Intake and Output Vital Signs (last 24 hours): Temp Pulse Resp BP Pulse Ox 97.4 F L 87 17 117/70 100 11/11/16 12:06 11/11/16 12:06 11/11/16 12:06 11/11/16 12:06 11/11/16 07:36 Intake and Output: 11/11/16 11/11/16 06:59 18:59 Intake Total 2290 317 Output Total 1050 Balance 1240 317 - Medications Medications: Current Medications Acetaminophen (Tylenol 650 Mg Supp) 650 mg RC Q4H PRN PRN Reason: Fever >100.4 F Last Admin: 11/01/16 21:18 Dose: 650 mg Acetaminophen (Tylenol 650mg/20.3ml Solution Ud) 650 mg PO Q4 PRN PRN Reason: Fever >100.4 F Last Admin: 11/10/16 03:33 Dose: 650 mg Bismuth Subsalicylate (Pepto-Bismol) 262 mg PO BID [facility] Last Admin: 11/11/16 11:56 Dose: 262 mg Collagenase (Santyl) 1 gm TOP BID [facility] Last Admin: 11/11/16 11:52 Dose: 1 applic Al Hydrox/Mg Hydrox/Simethicone 30 ml/Diphenhydramine HCl 75 mg/Lidocaine 30 ml 0 ml PO Q2H PRN PRN Reason: Mouth/Throat Pain Last Admin: 11/07/16 09:00 Dose: 15 ml Diphenhydramine HCl (Benadryl) 25 mg IVP Q4H PRN PRN Reason: Allergy symptoms Last Admin: 11/10/16 03:33 Dose: 25 mg Ergocalciferol (Drisdol 50,000 Intl Units Cap) 1 cap PO Q7D [facility] Last Admin: 11/05/16 14:21 Dose: 1 cap Furosemide (Lasix) 20 mg IVP Q12 [facility] Last Admin: 11/11/16 11:53 Dose: 20 mg Home Med (Home Med) 1 unit PO Q12H PRN PRN Reason: Inflammation Last Admin: 10/18/16 11:03 Dose: 1 unit Hydralazine HCl (Apresoline) 10 mg PO Q6H PRN PRN Reason: SBP >170 Last Admin: 11/04/16 18:04 Dose: 10 mg Micafungin Sodium 100 mg/ (Sodium Chloride) 100 mls @ 100 mls/hr IV DAILY [facility] PRN Reason: Protocol Stop: 11/18/16 11:00 Last Admin: 11/11/16 11:53 Dose: 100 mls/hr Hydromorphone HCl (Dilaudid-Hp 1 Mg/Ml Snuff Maker) 25 mls @ 0.5 mls/hr IV PRN PRN; Protocol PRN Reason: DRESS CAP MAKER PER MD ORDER Last Admin: 11/10/16 21:58 Dose: 0.5 mls/hr Multivitamins/Vitamin C 10 ml/ (Amino Acids) 2,010 mls @ 83 mls/hr IV .Q24H [facility] Last Admin: 11/10/16 22:50 Dose: 83 mls/hr Metoprolol Tartrate (Lopressor) 5 mg IVP Q6H PRN PRN Reason: Sustained HR > 130 Last Admin: 10/31/16 00:12 Dose: 5 mg Multi-Ingredient Ointment (Hydrophor Oint) 0 gm TOP Q6H [facility] Last Admin: 11/10/16 03:33 Dose: Not Given Ondansetron HCl (Zofran Inj) 4 mg IVP Q4H PRN PRN Reason: Nausea/Vomiting Last Admin: 11/11/16 07:31 Dose: 4 mg Pantoprazole Sodium (Protonix Inj) 40 mg IVP Q12 [facility] Last Admin: 11/11/16 11:53 Dose: 40 mg Petrolatum (Desitin Maximum Strength Topical 40% Oint) 1 gm TOP Q4H PRN PRN Reason: Rash Last Admin: 10/23/16 22:39 Dose: 1 applic Propranolol HCl (Inderal La) 120 mg PO DAILY [facility] Last Admin: 11/11/16 11:51 Dose: 120 mg Sucralfate (Carafate Oral Susp) 1 gm PO BID [facility] Last Admin: 11/11/16 11:50 Dose: 1 gm Tobramycin Sulfate (Tobrex 0.3% Oph Solirina) 1 drop OU QID [facility] Last Admin: 11/11/16 11:55 Dose: 1 drop Valganciclovir (Valcyte) 900 mg PO DAILY [facility] Last Admin: 11/11/16 11:52 Dose: 900 mg - Labs Labs: 11/11/16 06:00 11/10/16 07:10 PT 14.7 Seconds (9.9-11.8) H 11/07/16 07:00 INR 1.36 (0.93-1.08) H 11/07/16 07:00 APTT 33.1 Seconds (23.7-30.8) H 11/07/16 07:00 - Constitutional Appears: Non-toxic, Cachectic, Chronically Ill - Eye Exam Eye Exam: absent: Scleral icterus - Respiratory Exam Respiratory Exam: Clear to Ausculation Bilateral, NORMAL BREATHING PATTERN - Cardiovascular Exam Cardiovascular Exam: REGULAR RHYTHM, +S1, +S2. absent: Murmur - GI/Abdominal Exam GI & Abdominal Exam: Soft, Hyperactive Bowel Sounds. absent: Guarding, Rigid, Tenderness, Mass, Rebound - Extremities Exam Extremities Exam: Pedal Edema - Skin Skin Exam: Intact Assessment and Plan (1) Colon tumor Status: Chronic - Assessment and Plan (Free Text) Assessment: Ms. Gibson arik 61 y/o woman with a pmhx significant for stage IV metastatic colorectal cancer c/b stenosis of the sigmoid colon and esophageal ulcerations of unclear eitiology who hospitalization has been complicated by previous neutropenia sepsis and mucositis and now most recently with GI Bleeding (as evinced by melena/hematochezia) and fungemia necessitating treatment with anti- fungals. Patient's on going blood loss is of eminent concern. Appreciate GI recommendations. Will plan on transfusing 3 units of PRBC's and 1 unit of platelets. Diet switch to dysphagia soft per GI recommendations Appreciated GI, ID, cardiology, and surgery recommendations in management of this complicated patient #stage IV metastatic colorectal cancer -holding further cancer specific treatment for now has patient continues to have complications -revisit goals of care during the week #GI bleeding (UGIB vs lower? has melena as well as hemtochezia) -continue CMV empiric treatment due to ulcers found on EGD (though pathology was negative) per GI reccs -continue with IV ppi- -transfuse 3 units of PRBCs and 1 unit of Platelets will plan on repeat CBC subsequent to deliberate need for any additional blood products #Fungemia -last blood culture + for canddia almost one week ago; will repeat -continue anti-fungals per ID management -no fevers #FEN -dyphagia soft with thickened pureed fluids -continue with TPN #Dispo -to be determined; over all prognosis is guarded -at minimum would likely require rehab placement FULL CODE Luis Fernando Hendricks MD Oncology Service p: [phone] <Kedar Hendricks P - Last Filed: 11/25/16 01:14> Objective - Vital Signs/Intake and Output Vital Signs (last 24 hours): Temp Pulse Resp BP Pulse Ox 97.1 F L 50 L 18 126/58 L 98 11/25/16 00:00 11/25/16 00:00 11/25/16 00:00 11/25/16 00:00 11/25/16 00:00 Intake and Output: 11/24/16 11/25/16 18:59 06:59 Intake Total 2709 425 Output Total 1980 Balance 729 425 - Medications Medications: Current Medications Acetaminophen (Tylenol 650 Mg Supp) 650 mg RC Q4H PRN PRN Reason: Fever >100.4 F Last Admin: 11/01/16 21:18 Dose: 650 mg Collagenase (Santyl) 1 gm TOP BID [facility] Last Admin: 11/24/16 10:43 Dose: 1 applic Diphenhydramine HCl (Benadryl) 50 mg IVP HS PRN PRN Reason: Insomnia Last Admin: 11/23/16 02:36 Dose: 50 mg Ergocalciferol (Drisdol 50,000 Intl Units Cap) 1 cap PO Q7D [facility] Last Admin: 11/19/16 18:04 Dose: Not Given Fentanyl (Duragesic) 1 patch TD Q72H [facility] Last Admin: 11/22/16 14:30 Dose: 1 patch Ferrous Sulfate (Feosol) 324 mg PO TID [facility] Last Admin: 11/24/16 17:15 Dose: Not Given Furosemide (Lasix) 20 mg IVP Q12 [facility] Last Admin: 11/24/16 23:15 Dose: 20 mg Home Med (Home Med) 1 unit PO Q12H PRN PRN Reason: Inflammation Last Admin: 10/18/16 11:03 Dose: 1 unit Hydromorphone HCl (Dilaudid) 1 mg IVP Q1H PRN PRN Reason: Pain, severe (8-10) Last Admin: 11/25/16 01:00 Dose: 1 mg Daptomycin 440 mg/ Sodium (Chloride) 100 mls @ 200 mls/hr IV Q24H [facility] Stop: 11/27/16 09:01 Last Admin: 11/24/16 19:08 Dose: 200 mls/hr Micafungin Sodium 100 mg/ (Sodium Chloride) 100 mls @ 100 mls/hr IV DAILY [facility] PRN Reason: Protocol Stop: 11/28/16 10:01 Last Admin: 11/24/16 10:35 Dose: 100 mls/hr Potassium Chloride 40 meq/ (Dextrose/Sodium Chloride) 1,020 mls @ 80 mls/hr IV .[id number] [facility] Last Admin: 11/24/16 05:49 Dose: 80 mls/hr Cefepime HCl (Maxipime 1gm) 1 gm in 100 mls @ 100 mls/hr IVPB Q12 [facility] PRN Reason: Protocol Last Admin: 11/24/16 23:16 Dose: 100 mls/hr Magnesium Oxide (Mag-Ox) 400 mg PO BID [facility] Last Admin: 11/24/16 17:16 Dose: Not Given Multi-Ingredient Ointment (Hydrophor Oint) 0 gm TOP Q6H PRN PRN Reason: Dry lip Multivitamins (Thera Tab) 1 tab PO 0800 [facility] Last Admin: 11/24/16 10:38 Dose: Not Given Ondansetron HCl (Zofran Inj) 4 mg IVP Q4H PRN PRN Reason: Nausea/Vomiting Last Admin: 11/24/16 00:05 Dose: 4 mg Pantoprazole Sodium (Protonix Inj) 40 mg IVP Q12 [facility] Last Admin: 11/24/16 23:16 Dose: 40 mg Petrolatum (Desitin Maximum Strength Topical 40% Oint) 1 gm TOP Q4H PRN PRN Reason: Rash Last Admin: 10/23/16 22:39 Dose: 1 applic Potassium Chloride (K-Dur 20 Meq Er Tab) 40 meq PO DAILY [facility] Last Admin: 11/24/16 10:39 Dose: Not Given Propranolol HCl (Inderal La) 120 mg PO DAILY [facility] Last Admin: 11/24/16 10:31 Dose: 120 mg Sucralfate (Carafate Oral Susp) 1 gm PO BID [facility] Last Admin: 11/24/16 19:09 Dose: Not Given - Labs Labs: 11/24/16 07:53 11/24/16 07:53 PT 13.1 Seconds (9.9-11.8) H 11/24/16 10:03 INR 1.21 (0.93-1.08) H 11/24/16 10:03 APTT 31.2 Seconds (23.7-30.8) H 11/24/16 10:03 Attending/Attestation - Attestation I have personally seen and examined this patient.: Yes I have fully participated in the care of the patient.: Yes I have reviewed all pertinent clinical information, including history, physical exam and plan: Yes
--- NOTE | 2016-11-11 13:06 | CP.PCM.PN ---
Subjective - Date & Time of Evaluation Date of Evaluation: 11/11/16 Time of Evaluation: 11:45 - Subjective Subjective: Lethargic, c/o lower abdominal pain Persistent rectal bleeding s/p 3 U PRBC, Hgb 6.5 Objective - Vital Signs/Intake and Output Vital Signs (last 24 hours): Temp Pulse Resp BP Pulse Ox 97.4 F L 87 17 117/70 100 11/11/16 12:06 11/11/16 12:06 11/11/16 12:06 11/11/16 12:06 11/11/16 07:36 Intake and Output: 11/11/16 11/11/16 06:59 18:59 Intake Total 2290 317 Output Total 1050 Balance 1240 317 - Medications Medications: Current Medications Acetaminophen (Tylenol 650 Mg Supp) 650 mg RC Q4H PRN PRN Reason: Fever >100.4 F Last Admin: 11/01/16 21:18 Dose: 650 mg Acetaminophen (Tylenol 650mg/20.3ml Solution Ud) 650 mg PO Q4 PRN PRN Reason: Fever >100.4 F Last Admin: 11/10/16 03:33 Dose: 650 mg Bismuth Subsalicylate (Pepto-Bismol) 262 mg PO BID [facility] Last Admin: 11/11/16 11:56 Dose: 262 mg Collagenase (Santyl) 1 gm TOP BID [facility] Last Admin: 11/11/16 11:52 Dose: 1 applic Al Hydrox/Mg Hydrox/Simethicone 30 ml/Diphenhydramine HCl 75 mg/Lidocaine 30 ml 0 ml PO Q2H PRN PRN Reason: Mouth/Throat Pain Last Admin: 11/07/16 09:00 Dose: 15 ml Diphenhydramine HCl (Benadryl) 25 mg IVP Q4H PRN PRN Reason: Allergy symptoms Last Admin: 11/10/16 03:33 Dose: 25 mg Ergocalciferol (Drisdol 50,000 Intl Units Cap) 1 cap PO Q7D [facility] Last Admin: 11/05/16 14:21 Dose: 1 cap Furosemide (Lasix) 20 mg IVP Q12 [facility] Last Admin: 11/11/16 11:53 Dose: 20 mg Home Med (Home Med) 1 unit PO Q12H PRN PRN Reason: Inflammation Last Admin: 10/18/16 11:03 Dose: 1 unit Hydralazine HCl (Apresoline) 10 mg PO Q6H PRN PRN Reason: SBP >170 Last Admin: 11/04/16 18:04 Dose: 10 mg Micafungin Sodium 100 mg/ (Sodium Chloride) 100 mls @ 100 mls/hr IV DAILY [facility] PRN Reason: Protocol Stop: 11/18/16 11:00 Last Admin: 11/11/16 11:53 Dose: 100 mls/hr Hydromorphone HCl (Dilaudid-Hp 1 Mg/Ml Medical Voucher Clerk) 25 mls @ 0.5 mls/hr IV PRN PRN; Protocol PRN Reason: SUPERINTENDENT MAINTENANCE PER MD ORDER Last Admin: 11/10/16 21:58 Dose: 0.5 mls/hr Multivitamins/Vitamin C 10 ml/ (Amino Acids) 2,010 mls @ 83 mls/hr IV .Q24H [facility] Last Admin: 11/10/16 22:50 Dose: 83 mls/hr Metoprolol Tartrate (Lopressor) 5 mg IVP Q6H PRN PRN Reason: Sustained HR > 130 Last Admin: 10/31/16 00:12 Dose: 5 mg Multi-Ingredient Ointment (Hydrophor Oint) 0 gm TOP Q6H [facility] Last Admin: 11/10/16 03:33 Dose: Not Given Ondansetron HCl (Zofran Inj) 4 mg IVP Q4H PRN PRN Reason: Nausea/Vomiting Last Admin: 11/11/16 07:31 Dose: 4 mg Pantoprazole Sodium (Protonix Inj) 40 mg IVP Q12 [facility] Last Admin: 11/11/16 11:53 Dose: 40 mg Petrolatum (Desitin Maximum Strength Topical 40% Oint) 1 gm TOP Q4H PRN PRN Reason: Rash Last Admin: 10/23/16 22:39 Dose: 1 applic Propranolol HCl (Inderal La) 120 mg PO DAILY [facility] Last Admin: 11/11/16 11:51 Dose: 120 mg Sucralfate (Carafate Oral Susp) 1 gm PO BID [facility] Last Admin: 11/11/16 11:50 Dose: 1 gm Tobramycin Sulfate (Tobrex 0.3% Oph Soln) 1 drop OU QID [facility] Last Admin: 11/11/16 11:55 Dose: 1 drop Valganciclovir (Valcyte) 900 mg PO DAILY [facility] Last Admin: 11/11/16 11:52 Dose: 900 mg - Labs Labs: 11/11/16 06:00 11/10/16 07:10 PT 14.7 Seconds (9.9-11.8) H 11/07/16 07:00 INR 1.36 (0.93-1.08) H 11/07/16 07:00 APTT 33.1 Seconds (23.7-30.8) H 11/07/16 07:00 - Constitutional Appears: Chronically Ill - Head Exam Head Exam: ATRAUMATIC, NORMAL INSPECTION, NORMOCEPHALIC - Eye Exam Eye Exam: Normal appearance - ENT Exam ENT Exam: Mucous Membranes Dry - Cardiovascular Exam Cardiovascular Exam: REGULAR RHYTHM - GI/Abdominal Exam GI & Abdominal Exam: Soft, Tenderness, Hyperactive Bowel Sounds - Extremities Exam Extremities Exam: Pedal Edema Assessment and Plan (1) Diarrhea Status: Acute (2) Renal failure Status: Acute (3) Abdominal pain Status: Acute (4) Colon tumor Status: Chronic (5) Hypoalbuminemia Status: Acute - Assessment and Plan (Free Text) Assessment: (1) Diarrhea Assessment & Plan: PERSISTS, STENOTIC LESION Status: Acute (2) Renal failure Assessment & Plan: LARGELY PRERENAL 2/2 HYPERCATABOLIC STATE Status: Acute (3) Abdominal pain Assessment & Plan: 2/2 COLONIC MASS, STENOTIC LESION Status: Acute (4) Colon tumor Assessment & Plan: STAGE IV, BONE METS Status: Chronic (5) Hypoalbuminemia Assessment & Plan: SEVERE MALNUTRITION, CON'T EFRA Lower Na in EFRA Status: Acute (6) GIB: severe anemia, con't management per GI/Hematology
[2016-11-11] MEDS: HYDROmorphone 1 mg/ml PCA 25 ML IV PRN (16:17)
[2016-11-11] MEDS: Petrolatum-Mineral Oil Oint (100gm) TOP SCH ×3 (16:23→21:33)
[2016-11-11] MEDS: Multivitamin (MVI) 10 ML in Amino/Dext 4.25/5 2,000 ML IV SCH (18:28)
[2016-11-11 21:18] LABS: INR 1.35 (0.93-1.08); PARTIAL THROMBOPLASTIN TIME 31.9 Seconds (23.7-30.8); PROTHROMBIN TIME 14.6 Seconds (9.9-11.8)
[2016-11-11 21:59] LABS: EOS # 0.1 (0.0-0.7); EOS % 1.9 % (1.5-5.0); GRAN # 4.53 (1.4-6.5); GRAN % 87.1 % (50.0-68.0); LYMPH # 0.4 (1.2-3.4); LYMPH % 7.9 % (22.0-35.0); MEAN CELL VOLUME 92.9 fL (80.0-105.0); MEAN CORPUSCULAR HEMOGLOBIN 32.5 pg (25.0-35.0); MONO # 0.2 (0.1-0.6); MONO % 3.1 % (1.0-6.0); PLATELET COUNT 67 10^3/uL (120.0-450.0); RBC 1.97 10^6/uL (3.5-6.1); RED CELL DISTRIBUTION WIDTH 16.6 % (11.5-14.5); WHITE BLOOD COUNT 5.2 10^3/ul (4.5-11.0)
[2016-11-11 22:05] LABS: HEMOGLOBIN 6.4 gm/dL (12.0-16.0)
[2016-11-12] MEDS: Petrolatum-Mineral Oil Oint (100gm) TOP SCH ×4 (02:21→20:51)
--- NOTE | 2016-11-12 07:53 | CP.PCM.PN ---
Subjective - Date & Time of Evaluation Date of Evaluation: 11/12/16 Time of Evaluation: 07:30 - Subjective Subjective: Pt seen and examined at bedside this AM. No acute events overnight. Denies blood in stool. Continued Nausea, no vomiting, diarrhea. Denies fevers chills SOB/CP. Currently whole blood transfusing at bedside. On full liquid diet. Tolerating well. Objective - Vital Signs/Intake and Output Vital Signs (last 24 hours): Temp Pulse Resp BP Pulse Ox 97.4 F L 98 H 18 137/82 100 11/12/16 06:29 11/12/16 05:11 11/12/16 06:29 11/12/16 06:29 11/11/16 07:36 Intake and Output: 11/12/16 11/12/16 06:59 18:59 Intake Total 293 240 Output Total 2700 800 Balance -2407 -560 - Medications Medications: Current Medications Acetaminophen (Tylenol 650 Mg Supp) 650 mg RC Q4H PRN PRN Reason: Fever >100.4 F Last Admin: 11/01/16 21:18 Dose: 650 mg Acetaminophen (Tylenol 650mg/20.3ml Solution Ud) 650 mg PO Q4 PRN PRN Reason: Fever >100.4 F Last Admin: 11/10/16 03:33 Dose: 650 mg Bismuth Subsalicylate (Pepto-Bismol) 262 mg PO BID [facility] Last Admin: 11/11/16 18:28 Dose: 262 mg Collagenase (Santyl) 1 gm TOP BID [facility] Last Admin: 11/11/16 18:28 Dose: 1 applic Al Hydrox/Mg Hydrox/Simethicone 30 ml/Diphenhydramine HCl 75 mg/Lidocaine 30 ml 0 ml PO Q2H PRN PRN Reason: Mouth/Throat Pain Last Admin: 11/07/16 09:00 Dose: 15 ml Diphenhydramine HCl (Benadryl) 25 mg IVP Q4H PRN PRN Reason: Allergy symptoms Last Admin: 11/10/16 03:33 Dose: 25 mg Ergocalciferol (Drisdol 50,000 Intl Units Cap) 1 cap PO Q7D [facility] Last Admin: 11/05/16 14:21 Dose: 1 cap Furosemide (Lasix) 20 mg IVP Q12 [facility] Last Admin: 11/11/16 21:28 Dose: 20 mg Home Med (Home Med) 1 unit PO Q12H PRN PRN Reason: Inflammation Last Admin: 10/18/16 11:03 Dose: 1 unit Hydralazine HCl (Apresoline) 10 mg PO Q6H PRN PRN Reason: SBP >170 Last Admin: 11/04/16 18:04 Dose: 10 mg Micafungin Sodium 100 mg/ (Sodium Chloride) 100 mls @ 100 mls/hr IV DAILY [facility] PRN Reason: Protocol Stop: 11/18/16 11:00 Last Admin: 11/11/16 11:53 Dose: 100 mls/hr Hydromorphone HCl (Dilaudid-Hp 1 Mg/Ml Package Delivery Room Service Runner) 25 mls @ 0.5 mls/hr IV PRN PRN; Protocol PRN Reason: MONKEY TRAINER PER MD ORDER Last Admin: 11/11/16 16:17 Dose: 0.5 mls/hr Multivitamins/Vitamin C 10 ml/ (Amino Acids) 2,010 mls @ 83 mls/hr IV .Q24H [facility] Last Admin: 11/11/16 18:28 Dose: 83 mls/hr Metoprolol Tartrate (Lopressor) 5 mg IVP Q6H PRN PRN Reason: Sustained HR > 130 Last Admin: 10/31/16 00:12 Dose: 5 mg Multi-Ingredient Ointment (Hydrophor Oint) 0 gm TOP Q6H [facility] Last Admin: 11/12/16 02:21 Dose: Not Given Ondansetron HCl (Zofran Inj) 4 mg IVP Q4H PRN PRN Reason: Nausea/Vomiting Last Admin: 11/11/16 07:31 Dose: 4 mg Pantoprazole Sodium (Protonix Inj) 40 mg IVP Q12 [facility] Last Admin: 11/11/16 21:28 Dose: 40 mg Petrolatum (Desitin Maximum Strength Topical 40% Oint) 1 gm TOP Q4H PRN PRN Reason: Rash Last Admin: 10/23/16 22:39 Dose: 1 applic Propranolol HCl (Inderal La) 120 mg PO DAILY [facility] Last Admin: 11/11/16 11:51 Dose: 120 mg Sucralfate (Carafate Oral Susp) 1 gm PO BID [facility] Last Admin: 11/11/16 18:27 Dose: 1 gm Tobramycin Sulfate (Tobrex 0.3% Ophth Soln) 1 drop OU QID [facility] Last Admin: 11/11/16 20:32 Dose: 1 drop Valganciclovir (Valcyte) 900 mg PO DAILY [facility] Last Admin: 11/11/16 11:52 Dose: 900 mg - Labs Labs: 11/11/16 20:40 11/10/16 07:10 PT 14.6 Seconds (9.9-11.8) H 11/11/16 20:40 INR 1.35 (0.93-1.08) H 11/11/16 20:40 APTT 31.9 Seconds (23.7-30.8) H 11/11/16 20:40 - Constitutional Appears: No Acute Distress - Head Exam Head Exam: ATRAUMATIC - Respiratory Exam Respiratory Exam: NORMAL BREATHING PATTERN. absent: Respiratory Distress - Cardiovascular Exam Cardiovascular Exam: REGULAR RHYTHM - GI/Abdominal Exam GI & Abdominal Exam: Soft, Normal Bowel Sounds. absent: Distended, Guarding - Neurological Exam Neurological Exam: Awake, Oriented x3 - Psychiatric Exam Psychiatric exam: Normal Affect - Skin Skin Exam: Dry, Normal Color. absent: Erythema Additional comments: Infusion site, clean intact, no irritated. Assessment and Plan - Assessment and Plan (Free Text) Assessment: 61F w/ stage IV colon CA and lower GI bleed from ulcerated mass Plan: continue medical management monitor H/H, transfuse PRN full liquid diet- advance as tolerated optimize medically for possible colostomy 2/2 colonic strictures and ulcerated sigmoid mass sacral wound dressing change by nursing- using alginate packing Gunner Lucio DO PGY1
--- NOTE | 2016-11-12 09:17 | CP.PCM.PN ---
Subjective - Date & Time of Evaluation Date of Evaluation: 11/12/16 Time of Evaluation: 09:14 - Subjective Subjective: PGY-[address] Hendricks Pt seen and examined by bedside. Pt sitting in bed drinking tea with sister by bedside. Pt states that she could not fall asleep. Abdominal pain is 3/10 as compared to 5/10 yesterday. Pain controlled by current pain regimen. No more bloody bm. tolerating breakfast but appetite decreases. Objective - Vital Signs/Intake and Output Vital Signs (last 24 hours): Temp Pulse Resp BP Pulse Ox 97.4 F L 101 H 19 137/82 99 11/12/16 08:39 11/12/16 08:39 11/12/16 08:39 11/12/16 08:39 11/12/16 08:39 Intake and Output: 11/12/16 11/12/16 06:59 18:59 Intake Total 293 565 Output Total 2700 800 Balance -2407 -235 - Medications Medications: Current Medications Acetaminophen (Tylenol 650 Mg Supp) 650 mg RC Q4H PRN PRN Reason: Fever >100.4 F Last Admin: 11/01/16 21:18 Dose: 650 mg Acetaminophen (Tylenol 650mg/20.3ml Solution Ud) 650 mg PO Q4 PRN PRN Reason: Fever >100.4 F Last Admin: 11/10/16 03:33 Dose: 650 mg Bismuth Subsalicylate (Pepto-Bismol) 262 mg PO BID [facility] Last Admin: 11/11/16 18:28 Dose: 262 mg Collagenase (Santyl) 1 gm TOP BID [facility] Last Admin: 11/11/16 18:28 Dose: 1 applic Al Hydrox/Mg Hydrox/Simethicone 30 ml/Diphenhydramine HCl 75 mg/Lidocaine 30 ml 0 ml PO Q2H PRN PRN Reason: Mouth/Throat Pain Last Admin: 11/07/16 09:00 Dose: 15 ml Diphenhydramine HCl (Benadryl) 25 mg IVP Q4H PRN PRN Reason: Allergy symptoms Last Admin: 11/10/16 03:33 Dose: 25 mg Ergocalciferol (Drisdol 50,000 Intl Units Cap) 1 cap PO Q7D [facility] Last Admin: 11/05/16 14:21 Dose: 1 cap Furosemide (Lasix) 20 mg IVP Q12 [facility] Last Admin: 11/11/16 21:28 Dose: 20 mg Home Med (Home Med) 1 unit PO Q12H PRN PRN Reason: Inflammation Last Admin: 10/18/16 11:03 Dose: 1 unit Hydralazine HCl (Apresoline) 10 mg PO Q6H PRN PRN Reason: SBP >170 Last Admin: 11/04/16 18:04 Dose: 10 mg Micafungin Sodium 100 mg/ (Sodium Chloride) 100 mls @ 100 mls/hr IV DAILY [facility]OD[facility]GUEZ PRN Reason: Protocol Stop: 11/18/16 11:00 Last Admin: 11/11/16 11:53 Dose: 100 mls/hr Hydromorphone HCl (Dilaudid-Hp 1 Mg/Ml Washtub Worker) 25 mls @ 0.5 mls/hr IV PRN PRN; Protocol PRN Reason: 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 MANAGER PER MD ORDER Last Admin: 11/11/16 16:17 Dose: 0.5 mls/hr Multivitamins/Vitamin C 10 ml/ (Amino Acids) 2,010 mls @ 83 mls/hr IV .Q24H [facility] Last Admin: 11/11/16 18:28 Dose: 83 mls/hr Metoprolol Tartrate (Lopressor) 5 mg IVP Q6H PRN PRN Reason: Sustained HR > 130 Last Admin: 10/31/16 00:12 Dose: 5 mg Multi-Ingredient Ointment (Hydrophor Oint) 0 gm TOP Q6H [facility] Last Admin: 11/12/16 02:21 Dose: Not Given Ondansetron HCl (Zofran Inj) 4 mg IVP Q4H PRN PRN Reason: Nausea/Vomiting Last Admin: 11/11/16 07:31 Dose: 4 mg Pantoprazole Sodium (Protonix Inj) 40 mg IVP Q12 [facility] Last Admin: 11/11/16 21:28 Dose: 40 mg Petrolatum (Desitin Maximum Strength Topical 40% Oint) 1 gm TOP Q4H PRN PRN Reason: Rash Last Admin: 10/23/16 22:39 Dose: 1 applic Propranolol HCl (Inderal La) 120 mg PO DAILY [facility] Last Admin: 11/11/16 11:51 Dose: 120 mg Sucralfate (Carafate Oral Susp) 1 gm PO BID [facility] Last Admin: 11/11/16 18:27 Dose: 1 gm Tobramycin Sulfate (Tobrex 0.3% Ophth Soln) 1 drop OU QID [facility] Last Admin: 11/11/16 20:32 Dose: 1 drop Valganciclovir (Valcyte) 900 mg PO DAILY [facility] Last Admin: 11/11/16 11:52 Dose: 900 mg - Labs Labs: 11/11/16 20:40 11/10/16 07:10 PT 14.6 Seconds (9.9-11.8) H 11/11/16 20:40 INR 1.35 (0.93-1.08) H 11/11/16 20:40 APTT 31.9 Seconds (23.7-30.8) H 11/11/16 20:40 - Constitutional Appears: Cachectic, Chronically Ill - Head Exam Head Exam: ATRAUMATIC, NORMAL INSPECTION, NORMOCEPHALIC - Eye Exam Eye Exam: EOMI, Normal appearance, PERRL. absent: Scleral icterus Pupil Exam: PERRL - ENT Exam ENT Exam: Mucous Membranes Moist, Normal Exam - Neck Exam Neck Exam: Full ROM - Respiratory Exam Respiratory Exam: Clear to Ausculation Bilateral. absent: Rales, Rhonchi, Wheezes - Cardiovascular Exam Cardiovascular Exam: REGULAR RHYTHM, +S1, +S2, Murmur (systolic) Additional comments: portacath R intact. PICC L arm intact. dressing d/c/i - GI/Abdominal Exam GI & Abdominal Exam: Soft, Hyperactive Bowel Sounds. absent: Tenderness - Extremities Exam Extremities Exam: Normal Capillary Refill, Pedal Edema (1+ pitting edema all 4 extremities) - Psychiatric Exam Psychiatric exam: Normal Affect, Normal Mood - Skin Skin Exam: Dry, Warm Assessment and Plan - Assessment and Plan (Free Text) Plan: Ms Sherie Gibson is a 61 year old female with PMHx stage 4 colorectal cancer S/ P colectomy in 2014 with stenosis of sigmoid colon and esophageal ulceration of unclear etiology colon cancer stage 4 and Cauda Equina syndrome. She was hospitalized on 10/09 for watery diarrhea with neutropenia. This hospitalization was complicated by (1) neutropenia sepsis due to fungemia, repeat culture from port-a-cath positive for nirmal albicans, and (2) now mucositis with GI bleed ( melena/hematochesia) requiring transfusion. Plan: Pt's on going blood loss is of eminent concern. After receive 3u pRBC ( total 14 u during this hospital stay), her hgb only increases by 1 (from 5.4 to 6.5). She has received 1 u prbc since 2am, pending 9am CBC. Pending repeat culture on 11/10, if negative will revisit possible palliative colostomy. Repeat blood culture on 11/04 showed positive for fungus, on micafungin and valgancicilovir for empiric CMV. Pt will undergo port-a-cath removal, L PICC removal, and R PICC placement by IR today. Need to revisit goal of care. #Stage IV metastatic colorectal cancer - hold futher specific treatment for now due to complications #GI bleed - Continue CMV treatment due to ulcer found on EGD, pathology negative - Protonix IV BID - Downgrade to clear liquid diet per GI - Consider tapering TPN, balancing nutritional need; dietitian consult - Pending 9AM CBC (s/p 1 u RBC and plt) If Hb < 7, will transfuse anther unit of pRBC - Pending coags and DIC workup - will transfuse 2u prbc + 1 plt before procedure - Consult dietitan for clear ensure #Fungemia - Repeat blood cultre (+) nirmal - continue mucafungin - port-a-cath removal and new PICC today #FEN - clear liquid - add clear ensure pending dietitian rec - TPN decrease to 40cc/hr per nephro #Dispo - to be dertermined - prognosis guarded - consider rehab replacement at minimum #Full code s/r/d/w Dr. Hendricks
[2016-11-12 09:22] LABS: EOS # 0.1 (0.0-0.7); EOS % 2.9 % (1.5-5.0); GRAN # 3.74 (1.4-6.5); GRAN % 84.9 % (50.0-68.0); LYMPH # 0.4 (1.2-3.4); LYMPH % 7.9 % (22.0-35.0); MEAN CELL VOLUME 92.6 fL (80.0-105.0); MEAN CORPUSCULAR HEMOGLOBIN 32.5 pg (25.0-35.0); MEAN PLATELET VOLUME 10.8 fl (7.0-11.0); MONO # 0.2 (0.1-0.6); MONO % 4.3 % (1.0-6.0); PLATELET COUNT 100 10^3/uL (120.0-450.0); RBC 2.31 10^6/uL (3.5-6.1); RED CELL DISTRIBUTION WIDTH 16.3 % (11.5-14.5); WHITE BLOOD COUNT 4.4 10^3/ul (4.5-11.0)
[2016-11-12 09:26] LABS: HEMOGLOBIN 7.5 gm/dL (12.0-16.0)
--- NOTE | 2016-11-12 10:08 | CP.PCM.PN ---
Subjective - Date & Time of Evaluation Date of Evaluation: 11/12/16 Time of Evaluation: 09:00 - Subjective Subjective: WEAK Objective - Vital Signs/Intake and Output Vital Signs (last 24 hours): Temp Pulse Resp BP Pulse Ox 97.4 F L 101 H 19 137/82 99 11/12/16 08:39 11/12/16 08:39 11/12/16 08:39 11/12/16 08:39 11/12/16 08:39 Intake and Output: 11/12/16 11/12/16 06:59 18:59 Intake Total 293 565 Output Total 2700 800 Balance -2407 -235 - Medications Medications: Current Medications Acetaminophen (Tylenol 650 Mg Supp) 650 mg RC Q4H PRN PRN Reason: Fever >100.4 F Last Admin: 11/01/16 21:18 Dose: 650 mg Acetaminophen (Tylenol 650mg/20.3ml Solution Ud) 650 mg PO Q4 PRN PRN Reason: Fever >100.4 F Last Admin: 11/10/16 03:33 Dose: 650 mg Bismuth Subsalicylate (Pepto-Bismol) 262 mg PO BID [facility] Last Admin: 11/11/16 18:28 Dose: 262 mg Collagenase (Santyl) 1 gm TOP BID [facility] Last Admin: 11/11/16 18:28 Dose: 1 applic Al Hydrox/Mg Hydrox/Simethicone 30 ml/Diphenhydramine HCl 75 mg/Lidocaine 30 ml 0 ml PO Q2H PRN PRN Reason: Mouth/Throat Pain Last Admin: 11/07/16 09:00 Dose: 15 ml Diphenhydramine HCl (Benadryl) 25 mg IVP Q4H PRN PRN Reason: Allergy symptoms Last Admin: 11/10/16 03:33 Dose: 25 mg Ergocalciferol (Drisdol 50,000 Intl Units Cap) 1 cap PO Q7D [facility] Last Admin: 11/05/16 14:21 Dose: 1 cap Furosemide (Lasix) 20 mg IVP Q12 [facility] Last Admin: 11/11/16 21:28 Dose: 20 mg Home Med (Home Med) 1 unit PO Q12H PRN PRN Reason: Inflammation Last Admin: 10/18/16 11:03 Dose: 1 unit Hydralazine HCl (Apresoline) 10 mg PO Q6H PRN PRN Reason: SBP >170 Last Admin: 11/04/16 18:04 Dose: 10 mg Micafungin Sodium 100 mg/ (Sodium Chloride) 100 mls @ 100 mls/hr IV DAILY [facility]ÍGUEZ PRN Reason: Protocol Stop: 11/18/16 11:00 Last Admin: 11/11/16 11:53 Dose: 100 mls/hr Hydromorphone HCl (Dilaudid-Hp 1 Mg/Ml Emergency Room Orderly) 25 mls @ 0.5 mls/hr IV PRN PRN; Protocol PRN Reason: 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 SERVICES 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 PER MD ORDER Last Admin: 11/11/16 16:17 Dose: 0.5 mls/hr Multivitamins/Vitamin C 10 ml/ (Amino Acids) 2,010 mls @ 83 mls/hr IV .Q24H [facility] Last Admin: 11/11/16 18:28 Dose: 83 mls/hr Metoprolol Tartrate (Lopressor) 5 mg IVP Q6H PRN PRN Reason: Sustained HR > 130 Last Admin: 10/31/16 00:12 Dose: 5 mg Multi-Ingredient Ointment (Hydrophor Oint) 0 gm TOP Q6H [facility] Last Admin: 11/12/16 02:21 Dose: Not Given Ondansetron HCl (Zofran Inj) 4 mg IVP Q4H PRN PRN Reason: Nausea/Vomiting Last Admin: 11/11/16 07:31 Dose: 4 mg Pantoprazole Sodium (Protonix Inj) 40 mg IVP Q12 [facility] Last Admin: 11/11/16 21:28 Dose: 40 mg Petrolatum (Desitin Maximum Strength Topical 40% Oint) 1 gm TOP Q4H PRN PRN Reason: Rash Last Admin: 10/23/16 22:39 Dose: 1 applic Propranolol HCl (Inderal La) 120 mg PO DAILY [facility] Last Admin: 11/11/16 11:51 Dose: 120 mg Sucralfate (Carafate Oral Susp) 1 gm PO BID [facility] Last Admin: 11/11/16 18:27 Dose: 1 gm Tobramycin Sulfate (Tobrex 0.3% Ophth Soln) 1 drop OU QID [facility] Last Admin: 11/11/16 20:32 Dose: 1 drop Valganciclovir (Valcyte) 900 mg PO DAILY [facility] Last Admin: 11/11/16 11:52 Dose: 900 mg - Labs Labs: 11/12/16 08:15 11/10/16 07:10 PT 14.6 Seconds (9.9-11.8) H 11/11/16 20:40 INR 1.35 (0.93-1.08) H 11/11/16 20:40 APTT 31.9 Seconds (23.7-30.8) H 11/11/16 20:40 - Constitutional Appears: Well - Head Exam Head Exam: ATRAUMATIC, NORMAL INSPECTION, NORMOCEPHALIC - Eye Exam Eye Exam: EOMI, Normal appearance, PERRL Pupil Exam: NORMAL ACCOMODATION, PERRL - ENT Exam ENT Exam: Mucous Membranes Moist, Normal Exam - Neck Exam Neck Exam: Full ROM, Normal Inspection. absent: Lymphadenopathy - Respiratory Exam Respiratory Exam: Clear to Ausculation Bilateral, NORMAL BREATHING PATTERN - Cardiovascular Exam Cardiovascular Exam: REGULAR RHYTHM, +S1, +S2. absent: Murmur - GI/Abdominal Exam GI & Abdominal Exam: Soft, Normal Bowel Sounds. absent: Tenderness - Rectal Exam Rectal Exam: NORMAL INSPECTION - Exam Exam: Circumcision, NORMAL INSPECTION External exam: NORMAL EXTERNAL EXAM Speculum exam: NORMAL SPECULUM EXAM Bimanual exam: NORMAL BIMANUAL EXAM - Extremities Exam Extremities Exam: Full ROM, Normal Capillary Refill, Normal Inspection. absent : Joint Swelling, Pedal Edema - Back Exam Back Exam: NORMAL INSPECTION - Neurological Exam Neurological Exam: Alert, Awake, CN II-XII Intact, Normal Gait, Oriented x3 - Psychiatric Exam Psychiatric exam: Normal Affect, Normal Mood - Skin Skin Exam: Dry, Intact, Normal Color, Warm Assessment and Plan (1) Metastasis from colon cancer Status: Acute (2) Fungemia Status: Acute - Assessment and Plan (Free Text) Plan: D/C PORT/PIC BECAUSE OF PERSISTENT FUNGEMIA ON MYC
--- NOTE | 2016-11-12 10:36 | CP.PCM.PN ---
Subjective - Date & Time of Evaluation Date of Evaluation: 11/12/16 Time of Evaluation: 07:30 - Subjective Subjective: Feels ok, No abdominal pain, SOB, nor Chest pain. Objective - Vital Signs/Intake and Output Vital Signs (last 24 hours): Temp Pulse Resp BP Pulse Ox 97.4 F L 101 H 19 137/82 99 11/12/16 08:39 11/12/16 08:39 11/12/16 08:39 11/12/16 08:39 11/12/16 08:39 Intake and Output: 11/12/16 11/12/16 06:59 18:59 Intake Total 293 565 Output Total 2700 800 Balance -2407 -235 - Medications Medications: Current Medications Acetaminophen (Tylenol 650 Mg Supp) 650 mg RC Q4H PRN PRN Reason: Fever >100.4 F Last Admin: 11/01/16 21:18 Dose: 650 mg Acetaminophen (Tylenol 650mg/20.3ml Solution Ud) 650 mg PO Q4 PRN PRN Reason: Fever >100.4 F Last Admin: 11/10/16 03:33 Dose: 650 mg Bismuth Subsalicylate (Pepto-Bismol) 262 mg PO BID [facility] Last Admin: 11/11/16 18:28 Dose: 262 mg Collagenase (Santyl) 1 gm TOP BID [facility] Last Admin: 11/11/16 18:28 Dose: 1 applic Al Hydrox/Mg Hydrox/Simethicone 30 ml/Diphenhydramine HCl 75 mg/Lidocaine 30 ml 0 ml PO Q2H PRN PRN Reason: Mouth/Throat Pain Last Admin: 11/07/16 09:00 Dose: 15 ml Diphenhydramine HCl (Benadryl) 25 mg IVP Q4H PRN PRN Reason: Allergy symptoms Last Admin: 11/10/16 03:33 Dose: 25 mg Ergocalciferol (Drisdol 50,000 Intl Units Cap) 1 cap PO Q7D [facility] Last Admin: 11/05/16 14:21 Dose: 1 cap Furosemide (Lasix) 20 mg IVP Q12 [facility] Last Admin: 11/11/16 21:28 Dose: 20 mg Home Med (Home Med) 1 unit PO Q12H PRN PRN Reason: Inflammation Last Admin: 10/18/16 11:03 Dose: 1 unit Hydralazine HCl (Apresoline) 10 mg PO Q6H PRN PRN Reason: SBP >170 Last Admin: 11/04/16 18:04 Dose: 10 mg Micafungin Sodium 100 mg/ (Sodium Chloride) 100 mls @ 100 mls/hr IV DAILY [facility]ÍGUEZ PRN Reason: Protocol Stop: 11/18/16 11:00 Last Admin: 11/11/16 11:53 Dose: 100 mls/hr Hydromorphone HCl (Dilaudid-Hp 1 Mg/Ml Instructional Consultant) 25 mls @ 0.5 mls/hr IV PRN PRN; Protocol PRN Reason: BIOLOGY RESEARCH ASSISTANT PER MD ORDER Last Admin: 11/11/16 16:17 Dose: 0.5 mls/hr Multivitamins/Vitamin C 10 ml/ (Amino Acids) 2,010 mls @ 83 mls/hr IV .Q24H [facility] Last Admin: 11/11/16 18:28 Dose: 83 mls/hr Metoprolol Tartrate (Lopressor) 5 mg IVP Q6H PRN PRN Reason: Sustained HR > 130 Last Admin: 10/31/16 00:12 Dose: 5 mg Multi-Ingredient Ointment (Hydrophor Oint) 0 gm TOP Q6H [facility] Last Admin: 11/12/16 02:21 Dose: Not Given Ondansetron HCl (Zofran Inj) 4 mg IVP Q4H PRN PRN Reason: Nausea/Vomiting Last Admin: 11/11/16 07:31 Dose: 4 mg Pantoprazole Sodium (Protonix Inj) 40 mg IVP Q12 [facility] Last Admin: 11/11/16 21:28 Dose: 40 mg Petrolatum (Desitin Maximum Strength Topical 40% Oint) 1 gm TOP Q4H PRN PRN Reason: Rash Last Admin: 10/23/16 22:39 Dose: 1 applic Propranolol HCl (Inderal La) 120 mg PO DAILY [facility] Last Admin: 11/11/16 11:51 Dose: 120 mg Sucralfate (Carafate Oral Susp) 1 gm PO BID [facility] Last Admin: 11/11/16 18:27 Dose: 1 gm Tobramycin Sulfate (Tobrex 0.3% Ophth Soln) 1 drop OU QID [facility] Last Admin: 11/11/16 20:32 Dose: 1 drop Valganciclovir (Valcyte) 900 mg PO DAILY [facility] Last Admin: 11/11/16 11:52 Dose: 900 mg - Labs Labs: 11/12/16 08:15 11/10/16 07:10 PT 14.6 Seconds (9.9-11.8) H 11/11/16 20:40 INR 1.35 (0.93-1.08) H 11/11/16 20:40 APTT 31.9 Seconds (23.7-30.8) H 11/11/16 20:40 - Head Exam Head Exam: ATRAUMATIC - Eye Exam Eye Exam: Conjunctival injection - ENT Exam ENT Exam: Mucous Membranes Dry - Neck Exam Neck Exam: Full ROM Assessment and Plan - Assessment and Plan (Free Text) Assessment: 61 year old Female with p MHx of Ca colon , admitted with Mets, anfd partial obst, anemia, tachy cardia p[rotein Calorie malnutrition S/p P RBcs Plan: Possible PRVCs transfusion Continue Beta elena Improved nutriotional support Advanced Diet. ? definite plan to relieve obst. High risk procedure. Over all condition is critical Prognosis guardef
[2016-11-12] MEDS: Tobramycin 0.3% OPHT SOLN OU SCH ×4 (10:37→21:31)
[2016-11-12] MEDS: Micafungin 100 MG in Sodium Chloride 0.9% 100 ML IV SCH (10:37)
[2016-11-12] MEDS: Bismuth Subsalicylate 262 mg/15 ml Sus (240 ml) PO SCH ×2 (10:38→18:11)
[2016-11-12] MEDS: Sucralfate 1 gm/10 ml Oral Susp UD PO SCH ×2 (10:38→18:10)
[2016-11-12] MEDS: Collagenase 250 Units/gm Ointment(30 gm) TOP SCH ×2 (10:41→18:11)
[2016-11-12] MEDS: Propranolol 60 mg ER Cap PO SCH (10:42)
[2016-11-12] MEDS ORDERED: Lidocaine 2% Inj (20ml) ONE (12:00)
--- NOTE | 2016-11-12 12:01 | CP.PCM.PN ---
<Yoana Osei - Last Filed: 11/12/16 11:59> Subjective - Date & Time of Evaluation Date of Evaluation: 11/12/16 Time of Evaluation: 08:50 - Subjective Subjective: Seen and examined at the bedside earlier today, chart was reviewed. Patient status post 3 units of packed RBC. Reported to have melanotic stools. Sister remains at the bedside. Patient is awake, no reports of acute overnight issues. For port removal and PICC insertion today. Objective - Vital Signs/Intake and Output Vital Signs (last 24 hours): Temp Pulse Resp BP Pulse Ox 97.4 F L 101 H 19 137/82 99 11/12/16 08:39 11/12/16 10:42 11/12/16 08:39 11/12/16 10:42 11/12/16 08:39 Intake and Output: 11/12/16 11/12/16 06:59 18:59 Intake Total 293 565 Output Total 2700 800 Balance -2407 -235 - Medications Medications: Current Medications Acetaminophen (Tylenol 650 Mg Supp) 650 mg RC Q4H PRN PRN Reason: Fever >100.4 F Last Admin: 11/01/16 21:18 Dose: 650 mg Acetaminophen (Tylenol 650mg/20.3ml Solution Ud) 650 mg PO Q4 PRN PRN Reason: Fever >100.4 F Last Admin: 11/10/16 03:33 Dose: 650 mg Bismuth Subsalicylate (Pepto-Bismol) 262 mg PO BID [facility] Last Admin: 11/12/16 10:38 Dose: 262 mg Collagenase (Santyl) 1 gm TOP BID [facility] Last Admin: 11/12/16 10:41 Dose: 1 applic Al Hydrox/Mg Hydrox/Simethicone 30 ml/Diphenhydramine HCl 75 mg/Lidocaine 30 ml 0 ml PO Q2H PRN PRN Reason: Mouth/Throat Pain Last Admin: 11/07/16 09:00 Dose: 15 ml Diphenhydramine HCl (Benadryl) 25 mg IVP Q4H PRN PRN Reason: Allergy symptoms Last Admin: 11/10/16 03:33 Dose: 25 mg Ergocalciferol (Drisdol 50,000 Intl Units Cap) 1 cap PO Q7D [facility] Last Admin: 11/05/16 14:21 Dose: 1 cap Furosemide (Lasix) 20 mg IVP Q12 [facility] Last Admin: 11/12/16 10:39 Dose: 20 mg Home Med (Home Med) 1 unit PO Q12H PRN PRN Reason: Inflammation Last Admin: 10/18/16 11:03 Dose: 1 unit Hydralazine HCl (Apresoline) 10 mg PO Q6H PRN PRN Reason: SBP >170 Last Admin: 11/04/16 18:04 Dose: 10 mg Micafungin Sodium 100 mg/ (Sodium Chloride) 100 mls @ 100 mls/hr IV DAILY [facility] PRN Reason: Protocol Stop: 11/18/16 11:00 Last Admin: 11/12/16 10:37 Dose: 100 mls/hr Hydromorphone HCl (Dilaudid-Hp 1 Mg/Ml Card Folder) 25 mls @ 0.5 mls/hr IV PRN PRN; 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 Last Admin: 11/11/16 16:17 Dose: 0.5 mls/hr Multivitamins/Vitamin C 10 ml/ (Amino Acids) 2,010 mls @ 83 mls/hr IV .Q24H [facility] Last Admin: 11/11/16 18:28 Dose: 83 mls/hr Metoprolol Tartrate (Lopressor) 5 mg IVP Q6H PRN PRN Reason: Sustained HR > 130 Last Admin: 10/31/16 00:12 Dose: 5 mg Multi-Ingredient Ointment (Hydrophor Oint) 0 gm TOP Q6H [facility] Last Admin: 11/12/16 10:42 Dose: Not Given Ondansetron HCl (Zofran Inj) 4 mg IVP Q4H PRN PRN Reason: Nausea/Vomiting Last Admin: 11/11/16 07:31 Dose: 4 mg Pantoprazole Sodium (Protonix Inj) 40 mg IVP Q12 [facility] Last Admin: 11/12/16 10:39 Dose: 40 mg Petrolatum (Desitin Maximum Strength Topical 40% Oint) 1 gm TOP Q4H PRN PRN Reason: Rash Last Admin: 10/23/16 22:39 Dose: 1 applic Propranolol HCl (Inderal La) 120 mg PO DAILY [facility] Last Admin: 11/12/16 10:42 Dose: 120 mg Sucralfate (Carafate Oral Susp) 1 gm PO BID [facility] Last Admin: 11/12/16 10:38 Dose: 1 gm Tobramycin Sulfate (Tobrex 0.3% Ophth Soln) 1 drop OU QID [facility] Last Admin: 11/12/16 10:37 Dose: 1 drop Valganciclovir (Valcyte) 900 mg PO DAILY [facility] Last Admin: 11/12/16 10:39 Dose: 900 mg - Labs Labs: 11/12/16 08:15 11/10/16 07:10 PT 14.6 Seconds (9.9-11.8) H 11/11/16 20:40 INR 1.35 (0.93-1.08) H 11/11/16 20:40 APTT 31.9 Seconds (23.7-30.8) H 11/11/16 20:40 - Constitutional Appears: Chronically Ill - Eye Exam Eye Exam: Normal appearance. absent: Scleral icterus - ENT Exam ENT Exam: Mucous Membranes Dry - Respiratory Exam Respiratory Exam: Decreased Breath Sounds, NORMAL BREATHING PATTERN. absent: Respiratory Distress - Cardiovascular Exam Cardiovascular Exam: +S1, +S2 - GI/Abdominal Exam GI & Abdominal Exam: Soft, Tenderness, Normal Bowel Sounds. absent: Guarding, Rebound - Extremities Exam Extremities Exam: Pedal Edema. 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 Null <Tong Null V - Last Filed: 11/12/16 23:41> Objective - Vital Signs/Intake and Output Vital Signs (last 24 hours): Temp Pulse Resp BP Pulse Ox 98.0 F 100 H 16 139/70 98 11/12/16 21:39 11/12/16 21:39 11/12/16 21:39 11/12/16 21:39 11/12/16 14:51 Intake and Output: 11/12/16 11/13/16 18:59 06:59 Intake Total 565 310 Output Total 800 1900 Balance -235 -1590 - Medications Medications: Current Medications Acetaminophen (Tylenol 650 Mg Supp) 650 mg RC Q4H PRN PRN Reason: Fever >100.4 F Last Admin: 11/01/16 21:18 Dose: 650 mg Acetaminophen (Tylenol 650mg/20.3ml Solution Ud) 650 mg PO Q4 PRN PRN Reason: Fever >100.4 F Last Admin: 11/10/16 03:33 Dose: 650 mg Bismuth Subsalicylate (Pepto-Bismol) 262 mg PO BID [facility] Last Admin: 11/12/16 18:11 Dose: 262 mg Collagenase (Santyl) 1 gm TOP BID [facility] Last Admin: 11/12/16 18:11 Dose: 1 applic Al Hydrox/Mg Hydrox/Simethicone 30 ml/Diphenhydramine HCl 75 mg/Lidocaine 30 ml 0 ml PO Q2H PRN PRN Reason: Mouth/Throat Pain Last Admin: 11/07/16 09:00 Dose: 15 ml Diphenhydramine HCl (Benadryl) 25 mg IVP Q4H PRN PRN Reason: Allergy symptoms Last Admin: 11/12/16 20:40 Dose: 25 mg Ergocalciferol (Drisdol 50,000 Intl Units Cap) 1 cap PO Q7D [facility] Last Admin: 11/12/16 15:18 Dose: Not Given Furosemide (Lasix) 20 mg IVP Q12 [facility] Last Admin: 11/12/16 21:31 Dose: 20 mg Home Med (Home Med) 1 unit PO Q12H PRN PRN Reason: Inflammation Last Admin: 10/18/16 11:03 Dose: 1 unit Hydralazine HCl (Apresoline) 10 mg PO Q6H PRN PRN Reason: SBP >170 Last Admin: 11/04/16 18:04 Dose: 10 mg Micafungin Sodium 100 mg/ (Sodium Chloride) 100 mls @ 100 mls/hr IV DAILY [facility] PRN Reason: Protocol Stop: 11/18/16 11:00 Last Admin: 11/12/16 10:37 Dose: 100 mls/hr Hydromorphone HCl (Dilaudid-Hp 1 Mg/Ml Card Folder) 25 mls @ 0.5 mls/hr IV PRN PRN; 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 Last Admin: 11/12/16 22:59 Dose: 0.5 mls/hr Metoprolol Tartrate (Lopressor) 5 mg IVP Q6H PRN PRN Reason: Sustained HR > 130 Last Admin: 10/31/16 00:12 Dose: 5 mg Multi-Ingredient Ointment (Hydrophor Oint) 0 gm TOP Q6H [facility] Last Admin: 11/12/16 20:51 Dose: Not Given Ondansetron HCl (Zofran Inj) 4 mg IVP Q4H PRN PRN Reason: Nausea/Vomiting Last Admin: 11/11/16 07:31 Dose: 4 mg Pantoprazole Sodium (Protonix Inj) 40 mg IVP Q12 [facility] Last Admin: 11/12/16 21:30 Dose: 40 mg Petrolatum (Desitin Maximum Strength Topical 40% Oint) 1 gm TOP Q4H PRN PRN Reason: Rash Last Admin: 10/23/16 22:39 Dose: 1 applic Propranolol HCl (Inderal La) 120 mg PO DAILY [facility] Last Admin: 11/12/16 10:42 Dose: 120 mg Sucralfate (Carafate Oral Susp) 1 gm PO BID [facility] Last Admin: 11/12/16 18:10 Dose: 1 gm Tobramycin Sulfate (Tobrex 0.3% Ophth Soln) 1 drop OU QID [facility] Last Admin: 11/12/16 21:31 Dose: 1 drop Valganciclovir (Valcyte) 900 mg PO DAILY [facility] Last Admin: 11/12/16 10:39 Dose: 900 mg - Labs Labs: 11/12/16 08:15 11/10/16 07:10 PT 14.6 Seconds (9.9-11.8) H 11/11/16 20:40 INR 1.35 (0.93-1.08) H 11/11/16 20:40 APTT 31.9 Seconds (23.7-30.8) H 11/11/16 20:40 Attending/Attestation - Attestation I have personally seen and examined this patient.: Yes I have fully participated in the care of the patient.: Yes I have reviewed all pertinent clinical information, including history, physical exam and plan: Yes Notes (Text): This patient was
[2016-11-12] MEDS ORDERED: Midazolam 2 MG/2 ML VIAL ONE (13:02)
--- NOTE | 2016-11-12 14:14 | PCM.SURG1 ---
Surgeon's Initial Post Op Note - Surgeon's Notes Surgeon: Cj Sephora Product Consultant: rosa Type of Anesthesia: Moderate Sedation{RN}, Local Pre-Operative Diagnosis: Fungemia Operative Findings: Right sided port, without obvious external signs of infection. Post-Operative Diagnosis: Fungemia. Operation Performed: Removal of right sided medication port. Specimen/Specimens Removed: Right sided medication port. Catheter tip sent for analysis. Estimated Blood Loss: EBL {In ML}: 2 Date of Surgery/Procedure: 11/12/16 Time of Surgery/Procedure: 13:45
--- NOTE | 2016-11-12 15:07 | CP.PCM.PN ---
Subjective - Date & Time of Evaluation Date of Evaluation: 11/12/16 Time of Evaluation: 13:00 - Subjective Subjective: Lethargic, arousable continues to bleed rectally fungemia noted for port removal and placement of new picc line Objective - Vital Signs/Intake and Output Vital Signs (last 24 hours): Temp Pulse Resp BP Pulse Ox 97.4 F L 101 H 19 137/82 99 11/12/16 08:39 11/12/16 10:42 11/12/16 08:39 11/12/16 10:42 11/12/16 08:39 Intake and Output: 11/12/16 11/12/16 06:59 18:59 Intake Total 293 565 Output Total 2700 800 Balance -2407 -235 - Medications Medications: Current Medications Acetaminophen (Tylenol 650 Mg Supp) 650 mg RC Q4H PRN PRN Reason: Fever >100.4 F Last Admin: 11/01/16 21:18 Dose: 650 mg Acetaminophen (Tylenol 650mg/20.3ml Solution Ud) 650 mg PO Q4 PRN PRN Reason: Fever >100.4 F Last Admin: 11/10/16 03:33 Dose: 650 mg Bismuth Subsalicylate (Pepto-Bismol) 262 mg PO BID [facility] Last Admin: 11/12/16 10:38 Dose: 262 mg Collagenase (Santyl) 1 gm TOP BID [facility] Last Admin: 11/12/16 10:41 Dose: 1 applic Al Hydrox/Mg Hydrox/Simethicone 30 ml/Diphenhydramine HCl 75 mg/Lidocaine 30 ml 0 ml PO Q2H PRN PRN Reason: Mouth/Throat Pain Last Admin: 11/07/16 09:00 Dose: 15 ml Diphenhydramine HCl (Benadryl) 25 mg IVP Q4H PRN PRN Reason: Allergy symptoms Last Admin: 11/10/16 03:33 Dose: 25 mg Ergocalciferol (Drisdol 50,000 Intl Units Cap) 1 cap PO Q7D [facility] Last Admin: 11/05/16 14:21 Dose: 1 cap Furosemide (Lasix) 20 mg IVP Q12 [facility] Last Admin: 11/12/16 10:39 Dose: 20 mg Home Med (Home Med) 1 unit PO Q12H PRN PRN Reason: Inflammation Last Admin: 10/18/16 11:03 Dose: 1 unit Hydralazine HCl (Apresoline) 10 mg PO Q6H PRN PRN Reason: SBP >170 Last Admin: 11/04/16 18:04 Dose: 10 mg Micafungin Sodium 100 mg/ (Sodium Chloride) 100 mls @ 100 mls/hr IV DAILY [facility] PRN Reason: Protocol Stop: 11/18/16 11:00 Last Admin: 11/12/16 10:37 Dose: 100 mls/hr Hydromorphone HCl (Dilaudid-Hp 1 Mg/Ml [employer]) 25 mls @ 0.5 mls/hr IV PRN PRN; Protocol PRN Reason: PLAYGROUND MONITOR PER MD ORDER Last Admin: 11/11/16 16:17 Dose: 0.5 mls/hr Multivitamins/Vitamin C 10 ml/ (Amino Acids) 2,010 mls @ 83 mls/hr IV .Q24H [facility] Last Admin: 11/11/16 18:28 Dose: 83 mls/hr Metoprolol Tartrate (Lopressor) 5 mg IVP Q6H PRN PRN Reason: Sustained HR > 130 Last Admin: 10/31/16 00:12 Dose: 5 mg Multi-Ingredient Ointment (Hydrophor Oint) 0 gm TOP Q6H [facility] Last Admin: 11/12/16 10:42 Dose: Not Given Ondansetron HCl (Zofran Inj) 4 mg IVP Q4H PRN PRN Reason: Nausea/Vomiting Last Admin: 11/11/16 07:31 Dose: 4 mg Pantoprazole Sodium (Protonix Inj) 40 mg IVP Q12 [facility] Last Admin: 11/12/16 10:39 Dose: 40 mg Petrolatum (Desitin Maximum Strength Topical 40% Oint) 1 gm TOP Q4H PRN PRN Reason: Rash Last Admin: 10/23/16 22:39 Dose: 1 applic Propranolol HCl (Inderal La) 120 mg PO DAILY [facility] Last Admin: 11/12/16 10:42 Dose: 120 mg Sucralfate (Carafate Oral Susp) 1 gm PO BID [facility] Last Admin: 11/12/16 10:38 Dose: 1 gm Tobramycin Sulfate (Tobrex 0.3% Oph Soln) 1 drop OU QID [facility] Last Admin: 11/12/16 10:37 Dose: 1 drop Valganciclovir (Valcyte) 900 mg PO DAILY [facility] Last Admin: 11/12/16 10:39 Dose: 900 mg - Labs Labs: 11/12/16 08:15 11/10/16 07:10 PT 14.6 Seconds (9.9-11.8) H 11/11/16 20:40 INR 1.35 (0.93-1.08) H 11/11/16 20:40 APTT 31.9 Seconds (23.7-30.8) H 11/11/16 20:40 - Constitutional Appears: Chronically Ill - Head Exam Head Exam: NORMAL INSPECTION - ENT Exam ENT Exam: Mucous Membranes Dry - Respiratory Exam Respiratory Exam: NORMAL BREATHING PATTERN - Cardiovascular Exam Cardiovascular Exam: REGULAR RHYTHM, +S1, +S2 - GI/Abdominal Exam GI & Abdominal Exam: Distended, Tenderness, Hyperactive Bowel Sounds - Extremities Exam Extremities Exam: Pedal Edema Assessment and Plan (1) Diarrhea Status: Acute (2) Renal failure Status: Acute (3) Abdominal pain Status: Acute (4) Colon tumor Status: Chronic (5) Hypoalbuminemia Status: Acute - Assessment and Plan (Free Text) Assessment: (1) Diarrhea Assessment & Plan: PERSISTS, STENOTIC LESION, PERSISTENT GI BLEED, SEVERE ANEMIA TRANSFUSE NEEDED Status: Acute (2) Renal failure Assessment & Plan: LARGELY PRERENAL 2/2 HYPERCATABOLIC STATE Status: Acute (3) Abdominal pain Assessment & Plan: 2/2 COLONIC MASS, STENOTIC LESION Status: Acute (4) Colon tumor Assessment & Plan: STAGE IV, BONE METS Status: Chronic (5) Hypoalbuminemia Assessment & Plan: SEVERE MALNUTRITION, NOW WITH FUNGUS IN BLOOD, NO CHOICE BUT TO DISCONTINUE HYPERAL. WILL TAPER OFF, DECREASE TO 40 CC'S PER HOUR TODAY Status: Acute (6) GIB: severe anemia, con't management per GI/Hematology (7) OVERALL PROGNOSIS IS GRIM, STRONGLY RECOMMEND PALLIATIVE CARE ONLY
[2016-11-12] MEDS: Ergocalciferol 50,000 Intl Units Cap PO SCH (15:18)
--- NOTE | 2016-11-12 16:51 | US ---
PROCEDURE: Right upper extremity venous US CLINICAL HISTORY: Arm pain and swelling Evaluate for deep venous thrombosis. PHYSICIAN(S): Shabbir Hackett M.D FINDINGS: The right internal jugular vein is small but patent without evidence of thrombus. The visualized segments of the right subclavian vein are patent. No thrombus is noted in the visualized segments of the right upper extremity deep venous system. A catheter is present in the left subclavian vein. No significant thrombus is present. IMPRESSION: 1. No sonographic evidence for deep venous thrombosis in the visualized segments of the right upper extremity.
[2016-11-12] MEDS: DiphenhydrAMINE 50 mg/ml Inj IVP PRN (20:40)
[2016-11-12] MEDS: HYDROmorphone 1 mg/ml PCA 25 ML IV PRN (22:59)
[2016-11-13] MEDS: Petrolatum-Mineral Oil Oint (100gm) TOP SCH ×4 (03:19→22:18)
[2016-11-13] MEDS: DiphenhydrAMINE 50 mg/ml Inj IVP PRN (03:26)
--- NOTE | 2016-11-13 08:11 | CP.PCM.PN ---
<Cassie Arcos - Last Filed: 11/13/16 12:13> Subjective - Date & Time of Evaluation Date of Evaluation: 11/13/16 Time of Evaluation: 07:59 - Subjective Subjective: PGY-[address] Hendricks Pt seen and examined. 220 cc maroon stool overnight. VSS. Pending AM lab, Abdominal pain 3/10 at baseline, intermittent, self-resolved; 8-9, stabbing at worse, lasting for a second. Pt is hungry, asking if ok to upgrade diet. Objective - Vital Signs/Intake and Output Vital Signs (last 24 hours): Temp Pulse Resp BP Pulse Ox 97.9 F 99 H 17 146/79 98 11/13/16 04:46 11/13/16 06:00 11/13/16 04:46 11/13/16 04:46 11/12/16 14:51 Intake and Output: 11/13/16 11/13/16 06:59 18:59 Intake Total 3400 Output Total 5100 Balance -1700 - Medications Medications: Current Medications Acetaminophen (Tylenol 650 Mg Supp) 650 mg RC Q4H PRN PRN Reason: Fever >100.4 F Last Admin: 11/01/16 21:18 Dose: 650 mg Acetaminophen (Tylenol 650mg/20.3ml Solution Ud) 650 mg PO Q4 PRN PRN Reason: Fever >100.4 F Last Admin: 11/10/16 03:33 Dose: 650 mg Bismuth Subsalicylate (Pepto-Bismol) 262 mg PO BID [facility] Last Admin: 11/12/16 18:11 Dose: 262 mg Collagenase (Santyl) 1 gm TOP BID [facility] Last Admin: 11/12/16 18:11 Dose: 1 applic Al Hydrox/Mg Hydrox/Simethicone 30 ml/Diphenhydramine HCl 75 mg/Lidocaine 30 ml 0 ml PO Q2H PRN PRN Reason: Mouth/Throat Pain Last Admin: 11/07/16 09:00 Dose: 15 ml Diphenhydramine HCl (Benadryl) 25 mg IVP Q4H PRN PRN Reason: Allergy symptoms Last Admin: 11/13/16 03:26 Dose: 25 mg Ergocalciferol (Drisdol 50,000 Intl Units Cap) 1 cap PO Q7D [facility] Last Admin: 11/12/16 15:18 Dose: Not Given Furosemide (Lasix) 20 mg IVP Q12 [facility] Last Admin: 11/12/16 21:31 Dose: 20 mg Home Med (Home Med) 1 unit PO Q12H PRN PRN Reason: Inflammation Last Admin: 10/18/16 11:03 Dose: 1 unit Hydralazine HCl (Apresoline) 10 mg PO Q6H PRN PRN Reason: SBP >170 Last Admin: 11/13/16 03:21 Dose: 10 mg Micafungin Sodium 100 mg/ (Sodium Chloride) 100 mls @ 100 mls/hr IV DAILY [facility]OD[facility]GUE[facility] PRN Reason: Protocol Stop: 11/18/16 11:00 Last Admin: 11/12/16 10:37 Dose: 100 mls/hr Hydromorphone HCl (Dilaudid-Hp 1 Mg/Ml Game Farm Supervisor) 25 mls @ 0.5 mls/hr IV PRN PRN; Protocol PRN Reason: CHANGE MANAGEMENT MANAGER PER MD ORDER Last Admin: 11/12/16 22:59 Dose: 0.5 mls/hr Metoprolol Tartrate (Lopressor) 5 mg IVP Q6H PRN PRN Reason: Sustained HR > 130 Last Admin: 10/31/16 00:12 Dose: 5 mg Multi-Ingredient Ointment (Hydrophor Oint) 0 gm TOP Q6H [facility] Last Admin: 11/13/16 03:19 Dose: 1 applic Ondansetron HCl (Zofran Inj) 4 mg IVP Q4H PRN PRN Reason: Nausea/Vomiting Last Admin: 11/11/16 07:31 Dose: 4 mg Pantoprazole Sodium (Protonix Inj) 40 mg IVP Q12 [facility] Last Admin: 11/12/16 21:30 Dose: 40 mg Petrolatum (Desitin Maximum Strength Topical 40% Oint) 1 gm TOP Q4H PRN PRN Reason: Rash Last Admin: 10/23/16 22:39 Dose: 1 applic Propranolol HCl (Inderal La) 120 mg PO DAILY [facility] Last Admin: 11/12/16 10:42 Dose: 120 mg Sucralfate (Carafate Oral Susp) 1 gm PO BID [facility] Last Admin: 11/12/16 18:10 Dose: 1 gm Tobramycin Sulfate (Tobrex 0.3% [facility] Soln) 1 drop OU QID [facility] Last Admin: 11/12/16 21:31 Dose: 1 drop Valganciclovir (Valcyte) 900 mg PO DAILY [facility] Last Admin: 11/12/16 10:39 Dose: 900 mg - Labs Labs: 11/12/16 08:15 11/10/16 07:10 PT 14.6 Seconds (9.9-11.8) H 11/11/16 20:40 INR 1.35 (0.93-1.08) H 11/11/16 20:40 APTT 31.9 Seconds (23.7-30.8) H 11/11/16 20:40 - Constitutional Appears: Cachectic, Chronically Ill - Eye Exam Eye Exam: EOMI, Normal appearance, PERRL. absent: Scleral icterus - ENT Exam ENT Exam: Mucous Membranes Moist - Neck Exam Neck Exam: absent: Meningismus - Respiratory Exam Respiratory Exam: Clear to Ausculation Bilateral. absent: Rales, Rhonchi, Wheezes - Cardiovascular Exam Cardiovascular Exam: REGULAR RHYTHM, +S1, +S2, Murmur Additional comments: dressing on R chest d/c/i - GI/Abdominal Exam GI & Abdominal Exam: Soft, Hyperactive Bowel Sounds. absent: Tenderness - Extremities Exam Extremities Exam: Normal Capillary Refill, Pedal Edema (2+ pitting) - Neurological Exam Neurological Exam: Alert, Awake, Oriented x3 - Psychiatric Exam Psychiatric exam: Normal Affect, Normal Mood - Skin Skin Exam: Dry, Warm Assessment and Plan - Assessment and Plan (Free Text) Plan: Ms Sherie Gibson is a 61 year old female with PMHx stage 4 colorectal cancer S/ P colectomy in 2014 with stenosis of sigmoid colon and esophageal ulceration of unclear etiology colon cancer stage 4 and Cauda Equina syndrome. She was hospitalized on 10/09 for watery diarrhea with neutropenia. This hospitalization was complicated by (1) neutropenia sepsis due to fungemia, repeat culture from port-a-cath positive for niraml albicans, port-a-cath removed on 11/12/16. (2) Now mucositis with GI bleed (hematochesia/maroon stool) requiring transfusion. Plan: Pt's on going blood loss is of eminent concern. After receive 2u pRBC & 1 FFP yesterday, her hb rises from 7.5 to 9.4. Pending repeat culture on 11/10 and 11/11 nrgative thus far. If negative will revisit possible palliative colostomy. Revisit goal of care on 11/12. Pt states that she is not ready for palliative or comfort care. #Stage IV metastatic colorectal cancer - hold futher specific treatment for now due to complications - s/p Port-a-cath removal #GI bleed, Active, (upper and lower) - Stricture at sigmoid colon from external pressure, with ulceration - Many ulcers on esophagus found on EGD, pathology negative - Continue CMV treatment, pt showing clinical improvement - Protonix IV BID - Downgrade to clear liquid diet per GI - Tapering TPN to 40, added clear ensure 3/day - Dietitan: under-nutritient - If Hb < 7, will transfuse anther unit of pRBC # thrombocytopenia - DIC workup negative - INR 1.35 #Fungemia - Repeat blood culture on 11/04 (+) nirmal - continue mucafungin - port-a-cath removed (11/12) - repeat blood cultre 11/10 and 11/11 negative thus far; Pending port tip culture () - (?) PICC change tomorrow??? #FEN - clear liquid - TPN decrease to 40cc/hr per nephro - replete electrolytes #Dispo - to be dertermined - prognosis guarded - consider rehab replacement at minimum - OOB to chair will not cause GI bleed. Increase pain coverage prior transfer and safety precaution. #Full code #Access - L PICC S/r/d/w Dr. Hendricks <Kedar Hendricks P - Last Filed: 11/13/16 12:17> Objective - Vital Signs/Intake and Output Vital Signs (last 24 hours): Temp Pulse Resp BP Pulse Ox 98.8 F 93 H 19 155/83 H 99 11/13/16 06:00 11/13/16 09:53 11/13/16 06:00 11/13/16 09:54 11/13/16 06:00 Intake and Output: 11/13/16 11/13/16 06:59 18:59 Intake Total 3400 Output Total 5100 Balance -1700 - Medications Medications: Current Medications Acetaminophen (Tylenol 650 Mg Supp) 650 mg RC Q4H PRN PRN Reason: Fever >100.4 F Last Admin: 11/01/16 21:18 Dose: 650 mg Acetaminophen (Tylenol 650mg/20.3ml Solution Ud) 650 mg PO Q4 PRN PRN Reason: Fever >100.4 F Last Admin: 11/10/16 03:33 Dose: 650 mg Bismuth Subsalicylate (Pepto-Bismol) 262 mg PO BID [facility] Last Admin: 11/13/16 09:55 Dose: 262 mg Collagenase (Santyl) 1 gm TOP BID [facility] Last Admin: 11/13/16 09:55 Dose: 1 applic Al Hydrox/Mg Hydrox/Simethicone 30 ml/Diphenhydramine HCl 75 mg/Lidocaine 30 ml 0 ml PO Q2H PRN PRN Reason: Mouth/Throat Pain Last Admin: 11/07/16 09:00 Dose: 15 ml Diphenhydramine HCl (Benadryl) 25 mg IVP Q4H PRN PRN Reason: Allergy symptoms Last Admin: 11/13/16 03:26 Dose: 25 mg Ergocalciferol (Drisdol 50,000 Intl Units Cap) 1 cap PO Q7D [facility] Last Admin: 11/12/16 15:18 Dose: Not Given Furosemide (Lasix) 20 mg IVP Q12 [facility] Last Admin: 11/13/16 09:54 Dose: 20 mg Home Med (Home Med) 1 unit PO Q12H PRN PRN Reason: Inflammation Last Admin: 10/18/16 11:03 Dose: 1 unit Hydralazine HCl (Apresoline) 10 mg PO Q6H PRN PRN Reason: SBP >170 Last Admin: 11/13/16 03:21 Dose: 10 mg Micafungin Sodium 100 mg/ (Sodium Chloride) 100 mls @ 100 mls/hr IV DAILY [facility] PRN Reason: Protocol Stop: 11/18/16 11:00 Last Admin: 11/12/16 10:37 Dose: 100 mls/hr Hydromorphone HCl (Dilaudid-Hp 1 Mg/Ml Game Farm Supervisor) 25 mls @ 0.5 mls/hr IV PRN PRN; Protocol PRN Reason: CHANGE MANAGEMENT MANAGER PER MD ORDER Last Admin: 11/12/16 22:59 Dose: 0.5 mls/hr Potassium Chloride (Potassium Chloride 20 Meq/100 Ml) 20 meq in 100 mls @ 50 mls/hr IVPB Q2H [facility] Stop: 11/13/16 13:29 Last Admin: 11/13/16 11:52 Dose: 50 mls/hr Potassium Chloride 30 meq/ (Dextrose) 1,015 mls @ 60 mls/hr IV .[id number] [facility] Metoprolol Tartrate (Lopressor) 5 mg IVP Q6H PRN PRN Reason: Sustained HR > 130 Last Admin: 10/31/16 00:12 Dose: 5 mg Multi-Ingredient Ointment (Hydrophor Oint) 0 gm TOP Q6H [facility] Last Admin: 11/13/16 03:19 Dose: 1 applic Ondansetron HCl (Zofran Inj) 4 mg IVP Q4H PRN PRN Reason: Nausea/Vomiting Last Admin: 11/11/16 07:31 Dose: 4 mg Pantoprazole Sodium (Protonix Inj) 40 mg IVP Q12 [facility] Last Admin: 11/13/16 09:55 Dose: 40 mg Petrolatum (Desitin Maximum Strength Topical 40% Oint) 1 gm TOP Q4H PRN PRN Reason: Rash Last Admin: 10/23/16 22:39 Dose: 1 applic Propranolol HCl (Inderal La) 120 mg PO DAILY [facility] Last Admin: 11/13/16 09:53 Dose: 120 mg Sucralfate (Carafate Oral Susp) 1 gm PO BID [facility] Last Admin: 11/13/16 09:53 Dose: 1 gm Tobramycin Sulfate (Tobrex 0.3% Ophth Soln) 1 drop OU QID [facility] Last Admin: 11/13/16 09:54 Dose: 1 drop Valganciclovir (Valcyte) 900 mg PO DAILY [facility] Last Admin: 11/13/16 09:53 Dose: 900 mg - Labs Labs: 11/13/16 08:43 11/13/16 08:43 PT 14.6 Seconds (9.9-11.8) H 11/11/16 20:40 INR 1.35 (0.93-1.08) H 11/11/16 20:40 APTT 31.9 Seconds (23.7-30.8) H 11/11/16 20:40 Attending/Attestation - Attestation I have personally seen and examined this patient.: Yes I have fully participated in the care of the patient.: Yes I have reviewed all pertinent clinical information, including history, physical exam and plan: Yes
--- NOTE | 2016-11-13 08:25 | CP.PCM.PN ---
Subjective - Date & Time of Evaluation Date of Evaluation: 11/13/16 Time of Evaluation: 08:22 - Subjective Subjective: PT S&E at bedside. NAEON. Patient is tolerating pain well. She refused to have sacral wound examined at bedside. Surgical site of port removal seen and examined c/d/i. PICC line site, no signs of edema, erythema, c/d/i. Objective - Vital Signs/Intake and Output Vital Signs (last 24 hours): Temp Pulse Resp BP Pulse Ox 97.9 F 99 H 17 146/79 98 11/13/16 04:46 11/13/16 06:00 11/13/16 04:46 11/13/16 04:46 11/12/16 14:51 Intake and Output: 11/13/16 11/13/16 06:59 18:59 Intake Total 3400 Output Total 5100 Balance -1700 - Medications Medications: Current Medications Acetaminophen (Tylenol 650 Mg Supp) 650 mg RC Q4H PRN PRN Reason: Fever >100.4 F Last Admin: 11/01/16 21:18 Dose: 650 mg Acetaminophen (Tylenol 650mg/20.3ml Solution Ud) 650 mg PO Q4 PRN PRN Reason: Fever >100.4 F Last Admin: 11/10/16 03:33 Dose: 650 mg Bismuth Subsalicylate (Pepto-Bismol) 262 mg PO BID [facility] Last Admin: 11/12/16 18:11 Dose: 262 mg Collagenase (Santyl) 1 gm TOP BID [facility] Last Admin: 11/12/16 18:11 Dose: 1 applic Al Hydrox/Mg Hydrox/Simethicone 30 ml/Diphenhydramine HCl 75 mg/Lidocaine 30 ml 0 ml PO Q2H PRN PRN Reason: Mouth/Throat Pain Last Admin: 11/07/16 09:00 Dose: 15 ml Diphenhydramine HCl (Benadryl) 25 mg IVP Q4H PRN PRN Reason: Allergy symptoms Last Admin: 11/13/16 03:26 Dose: 25 mg Ergocalciferol (Drisdol 50,000 Intl Units Cap) 1 cap PO Q7D [facility] Last Admin: 11/12/16 15:18 Dose: Not Given Furosemide (Lasix) 20 mg IVP Q12 [facility] Last Admin: 11/12/16 21:31 Dose: 20 mg Home Med (Home Med) 1 unit PO Q12H PRN PRN Reason: Inflammation Last Admin: 10/18/16 11:03 Dose: 1 unit Hydralazine HCl (Apresoline) 10 mg PO Q6H PRN PRN Reason: SBP >170 Last Admin: 11/13/16 03:21 Dose: 10 mg Micafungin Sodium 100 mg/ (Sodium Chloride) 100 mls @ 100 mls/hr IV DAILY [facility]UE[facility] PRN Reason: Protocol Stop: 11/18/16 11:00 Last Admin: 11/12/16 10:37 Dose: 100 mls/hr Hydromorphone HCl (Dilaudid-Hp 1 Mg/Ml Layout Mechanic) 25 mls @ 0.5 mls/hr IV PRN PRN; Protocol PRN Reason: HULL BUILDER PER MD ORDER Last Admin: 11/12/16 22:59 Dose: 0.5 mls/hr Metoprolol Tartrate (Lopressor) 5 mg IVP Q6H PRN PRN Reason: Sustained HR > 130 Last Admin: 10/31/16 00:12 Dose: 5 mg Multi-Ingredient Ointment (Hydrophor Oint) 0 gm TOP Q6H [facility] Last Admin: 11/13/16 03:19 Dose: 1 applic Ondansetron HCl (Zofran Inj) 4 mg IVP Q4H PRN PRN Reason: Nausea/Vomiting Last Admin: 11/11/16 07:31 Dose: 4 mg Pantoprazole Sodium (Protonix Inj) 40 mg IVP Q12 [facility] Last Admin: 11/12/16 21:30 Dose: 40 mg Petrolatum (Desitin Maximum Strength Topical 40% Oint) 1 gm TOP Q4H PRN PRN Reason: Rash Last Admin: 10/23/16 22:39 Dose: 1 applic Propranolol HCl (Inderal La) 120 mg PO DAILY [facility] Last Admin: 11/12/16 10:42 Dose: 120 mg Sucralfate (Carafate Oral Susp) 1 gm PO BID [facility] Last Admin: 11/12/16 18:10 Dose: 1 gm Tobramycin Sulfate (Tobrex 0.3% Ophth Soln) 1 drop OU QID [facility] Last Admin: 11/12/16 21:31 Dose: 1 drop Valganciclovir (Valcyte) 900 mg PO DAILY [facility] Last Admin: 11/12/16 10:39 Dose: 900 mg - Labs Labs: 11/12/16 08:15 11/10/16 07:10 PT 14.6 Seconds (9.9-11.8) H 11/11/16 20:40 INR 1.35 (0.93-1.08) H 11/11/16 20:40 APTT 31.9 Seconds (23.7-30.8) H 11/11/16 20:40 - Constitutional Appears: Well - Head Exam Head Exam: NORMAL INSPECTION - Eye Exam Eye Exam: EOMI, Normal appearance - Neck Exam Neck Exam: Full ROM - Respiratory Exam Respiratory Exam: NORMAL BREATHING PATTERN. absent: Accessory Muscle Use, Wheezes, Respiratory Distress - Extremities Exam Extremities Exam: absent: Pedal Edema - Skin Skin Exam: Dry, Intact, Normal Color, Warm Assessment and Plan - Assessment and Plan (Free Text) Assessment: 61 F with sacral wound/GI bleed. Plan: c/w wound care management monitor H/Hs monitor port removal site for signs of erythema, drainage, and infection monitor PICC line site for signs of infection, erythema, and drainage
[2016-11-13 08:57] LABS: ALB/GLOB RATIO 0.8 (1.1-1.8); ALT/SGPT 29 U/L (7-56); AST/SGOT 15 U/L (15-39); BLOOD UREA NITROGEN 67 mg/dL (7-21); CALCIUM 7.3 mg/dL (8.4-10.5); GFR AFRICAN-AMERICAN > 60; GFR NON-AFRICAN AMERICAN > 60
[2016-11-13] MEDS ORDERED: Potassium Chloride 20 mEq ER Tab PO STA (09:13)
[2016-11-13] MEDS ORDERED: Potassium Chloride 20 mEq ER Tab PO PRN (09:17)
[2016-11-13] MEDS ORDERED: Potassium Chloride 40 mEq/30 ml LIQ UD PO ONE (09:24)
[2016-11-13] MEDS ORDERED: Magnesium Sulfate 2 GM in Sodium Chloride 0.9% 100 ML IVPB ONE (09:25)
[2016-11-13 09:49] LABS: EOS # 0.2 (0.0-0.7); EOS % 3.9 % (1.5-5.0); GRAN # 4.36 (1.4-6.5); GRAN % 81.5 % (50.0-68.0); HEMOGLOBIN 9.4 gm/dL (12.0-16.0); LYMPH # 0.5 (1.2-3.4); MEAN CELL VOLUME 90.2 fL (80.0-105.0); MEAN CORPUSCULAR HEMOGLOBIN 31.6 pg (25.0-35.0); MEAN CORPUSCULAR HGB CONC 35.1 g/dl (31.0-37.0); MEAN PLATELET VOLUME 11.9 fl (7.0-11.0); MONO # 0.3 (0.1-0.6); MONO % 5.6 % (1.0-6.0); PLATELET COUNT 62 10^3/uL (120.0-450.0); RBC 2.97 10^6/uL (3.5-6.1); WHITE BLOOD COUNT 5.4 10^3/ul (4.5-11.0)
[2016-11-13] MEDS: Sucralfate 1 gm/10 ml Oral Susp UD PO SCH ×2 (09:53→17:20)
[2016-11-13] MEDS: Propranolol 60 mg ER Cap PO SCH (09:53)
[2016-11-13] MEDS: Tobramycin 0.3% OPHT SOLN OU SCH ×5 (09:54→22:19)
[2016-11-13] MEDS: Collagenase 250 Units/gm Ointment(30 gm) TOP SCH ×2 (09:55→17:21)
[2016-11-13] MEDS: Bismuth Subsalicylate 262 mg/15 ml Sus (240 ml) PO SCH ×2 (09:55→17:21)
[2016-11-13 10:58] LABS: PLATELET COUNT MANUAL 80 K/mm3 (120-450)
--- NOTE | 2016-11-13 11:19 | CP.PCM.PN ---
Subjective - Date & Time of Evaluation Date of Evaluation: 11/13/16 Time of Evaluation: 09:00 - Subjective Subjective: POOR CONDITION Objective - Vital Signs/Intake and Output Vital Signs (last 24 hours): Temp Pulse Resp BP Pulse Ox 98.8 F 93 H 19 155/83 H 99 11/13/16 06:00 11/13/16 09:53 11/13/16 06:00 11/13/16 09:54 11/13/16 06:00 Intake and Output: 11/13/16 11/13/16 06:59 18:59 Intake Total 3400 Output Total 5100 Balance -1700 - Medications Medications: Current Medications Acetaminophen (Tylenol 650 Mg Supp) 650 mg RC Q4H PRN PRN Reason: Fever >100.4 F Last Admin: 11/01/16 21:18 Dose: 650 mg Acetaminophen (Tylenol 650mg/20.3ml Solution Ud) 650 mg PO Q4 PRN PRN Reason: Fever >100.4 F Last Admin: 11/10/16 03:33 Dose: 650 mg Bismuth Subsalicylate (Pepto-Bismol) 262 mg PO BID [facility] Last Admin: 11/13/16 09:55 Dose: 262 mg Collagenase (Santyl) 1 gm TOP BID [facility] Last Admin: 11/13/16 09:55 Dose: 1 applic Al Hydrox/Mg Hydrox/Simethicone 30 ml/Diphenhydramine HCl 75 mg/Lidocaine 30 ml 0 ml PO Q2H PRN PRN Reason: Mouth/Throat Pain Last Admin: 11/07/16 09:00 Dose: 15 ml Diphenhydramine HCl (Benadryl) 25 mg IVP Q4H PRN PRN Reason: Allergy symptoms Last Admin: 11/13/16 03:26 Dose: 25 mg Ergocalciferol (Drisdol 50,000 Intl Units Cap) 1 cap PO Q7D [facility] Last Admin: 11/12/16 15:18 Dose: Not Given Furosemide (Lasix) 20 mg IVP Q12 [facility] Last Admin: 11/13/16 09:54 Dose: 20 mg Home Med (Home Med) 1 unit PO Q12H PRN PRN Reason: Inflammation Last Admin: 10/18/16 11:03 Dose: 1 unit Hydralazine HCl (Apresoline) 10 mg PO Q6H PRN PRN Reason: SBP >170 Last Admin: 11/13/16 03:21 Dose: 10 mg Micafungin Sodium 100 mg/ (Sodium Chloride) 100 mls @ 100 mls/hr IV DAILY [facility]GUE[facility] PRN Reason: Protocol Stop: 11/18/16 11:00 Last Admin: 11/12/16 10:37 Dose: 100 mls/hr Hydromorphone HCl (Dilaudid-Hp 1 Mg/Ml Office Manager) 25 mls @ 0.5 mls/hr IV PRN PRN; Protocol PRN Reason: NURSE GYNECOLOGY PER MD ORDER Last Admin: 11/12/16 22:59 Dose: 0.5 mls/hr Potassium Chloride (Potassium Chloride 20 Meq/100 Ml) 20 meq in 100 mls @ 50 mls/hr IVPB Q2H [facility] Stop: 11/13/16 13:29 Last Admin: 11/13/16 09:53 Dose: 50 mls/hr Potassium Chloride 30 meq/ (Dextrose) 1,015 mls @ 60 mls/hr IV .[id number] [facility] Metoprolol Tartrate (Lopressor) 5 mg IVP Q6H PRN PRN Reason: Sustained HR > 130 Last Admin: 10/31/16 00:12 Dose: 5 mg Multi-Ingredient Ointment (Hydrophor Oint) 0 gm TOP Q6H [facility] Last Admin: 11/13/16 03:19 Dose: 1 applic Ondansetron HCl (Zofran Inj) 4 mg IVP Q4H PRN PRN Reason: Nausea/Vomiting Last Admin: 11/11/16 07:31 Dose: 4 mg Pantoprazole Sodium (Protonix Inj) 40 mg IVP Q12 [facility] Last Admin: 11/13/16 09:55 Dose: 40 mg Petrolatum (Desitin Maximum Strength Topical 40% Oint) 1 gm TOP Q4H PRN PRN Reason: Rash Last Admin: 10/23/16 22:39 Dose: 1 applic Propranolol HCl (Inderal La) 120 mg PO DAILY [facility] Last Admin: 11/13/16 09:53 Dose: 120 mg Sucralfate (Carafate Oral Susp) 1 gm PO BID [facility] Last Admin: 11/13/16 09:53 Dose: 1 gm Tobramycin Sulfate (Tobrex 0.3% Oph Soln) 1 drop OU QID [facility] Last Admin: 11/13/16 09:54 Dose: 1 drop Valganciclovir (Valcyte) 900 mg PO DAILY [facility] Last Admin: 11/13/16 09:53 Dose: 900 mg - Labs Labs: 11/13/16 08:43 11/13/16 08:43 PT 14.6 Seconds (9.9-11.8) H 11/11/16 20:40 INR 1.35 (0.93-1.08) H 11/11/16 20:40 APTT 31.9 Seconds (23.7-30.8) H 11/11/16 20:40 - Constitutional Appears: Well - Head Exam Head Exam: ATRAUMATIC, NORMAL INSPECTION, NORMOCEPHALIC - Eye Exam Eye Exam: EOMI, Normal appearance, PERRL Pupil Exam: NORMAL ACCOMODATION, PERRL - ENT Exam ENT Exam: Mucous Membranes Moist, Normal Exam - Neck Exam Neck Exam: Full ROM, Normal Inspection. absent: Lymphadenopathy - Respiratory Exam Respiratory Exam: Clear to Ausculation Bilateral, NORMAL BREATHING PATTERN - Cardiovascular Exam Cardiovascular Exam: REGULAR RHYTHM, +S1, +S2. absent: Murmur - GI/Abdominal Exam GI & Abdominal Exam: Soft, Normal Bowel Sounds. absent: Tenderness - Rectal Exam Rectal Exam: NORMAL INSPECTION - Exam Exam: Circumcision, NORMAL INSPECTION External exam: NORMAL EXTERNAL EXAM Speculum exam: NORMAL SPECULUM EXAM Bimanual exam: NORMAL BIMANUAL EXAM - Extremities Exam Extremities Exam: Full ROM, Normal Capillary Refill, Normal Inspection. absent : Joint Swelling, Pedal Edema - Back Exam Back Exam: NORMAL INSPECTION - Neurological Exam Neurological Exam: Alert, Awake, CN II-XII Intact, Normal Gait, Oriented x3 - Psychiatric Exam Psychiatric exam: Normal Affect, Normal Mood - Skin Skin Exam: Dry, Intact, Normal Color, Warm Assessment and Plan (1) Metastasis from colon cancer Status: Acute (2) Fungemia Status: Acute - Assessment and Plan (Free Text) Plan: REPEAT BLOOD CUL NEGATIVE CONTN MICAF PROGNOSIS POOR
--- NOTE | 2016-11-13 12:21 | CP.PCM.PN ---
Subjective - Date & Time of Evaluation Date of Evaluation: 11/13/16 Time of Evaluation: 09:45 - Subjective Subjective: No new complains, feel ok, beigg bathed / cleaned by nursing staff. Objective - Vital Signs/Intake and Output Vital Signs (last 24 hours): Temp Pulse Resp BP Pulse Ox 98.8 F 93 H 19 155/83 H 99 11/13/16 06:00 11/13/16 09:53 11/13/16 06:00 11/13/16 09:54 11/13/16 06:00 Intake and Output: 11/13/16 11/13/16 06:59 18:59 Intake Total 3400 Output Total 5100 Balance -1700 - Medications Medications: Current Medications Acetaminophen (Tylenol 650 Mg Supp) 650 mg RC Q4H PRN PRN Reason: Fever >100.4 F Last Admin: 11/01/16 21:18 Dose: 650 mg Acetaminophen (Tylenol 650mg/20.3ml Solution Ud) 650 mg PO Q4 PRN PRN Reason: Fever >100.4 F Last Admin: 11/10/16 03:33 Dose: 650 mg Bismuth Subsalicylate (Pepto-Bismol) 262 mg PO BID [facility] Last Admin: 11/13/16 09:55 Dose: 262 mg Collagenase (Santyl) 1 gm TOP BID [facility] Last Admin: 11/13/16 09:55 Dose: 1 applic Al Hydrox/Mg Hydrox/Simethicone 30 ml/Diphenhydramine HCl 75 mg/Lidocaine 30 ml 0 ml PO Q2H PRN PRN Reason: Mouth/Throat Pain Last Admin: 11/07/16 09:00 Dose: 15 ml Diphenhydramine HCl (Benadryl) 25 mg IVP Q4H PRN PRN Reason: Allergy symptoms Last Admin: 11/13/16 03:26 Dose: 25 mg Ergocalciferol (Drisdol 50,000 Intl Units Cap) 1 cap PO Q7D [facility] Last Admin: 11/12/16 15:18 Dose: Not Given Furosemide (Lasix) 20 mg IVP Q12 [facility] Last Admin: 11/13/16 09:54 Dose: 20 mg Home Med (Home Med) 1 unit PO Q12H PRN PRN Reason: Inflammation Last Admin: 10/18/16 11:03 Dose: 1 unit Hydralazine HCl (Apresoline) 10 mg PO Q6H PRN PRN Reason: SBP >170 Last Admin: 11/13/16 03:21 Dose: 10 mg Micafungin Sodium 100 mg/ (Sodium Chloride) 100 mls @ 100 mls/hr IV DAILY [facility] PRN Reason: Protocol Stop: 11/18/16 11:00 Last Admin: 11/12/16 10:37 Dose: 100 mls/hr Hydromorphone HCl (Dilaudid-Hp 1 Mg/Ml Labeling Associate) 25 mls @ 0.5 mls/hr IV PRN PRN; Protocol PRN Reason: MASTER BAKER PER MD ORDER Last Admin: 11/12/16 22:59 Dose: 0.5 mls/hr Potassium Chloride (Potassium Chloride 20 Meq/100 Ml) 20 meq in 100 mls @ 50 mls/hr IVPB Q2H [facility] Stop: 11/13/16 13:29 Last Admin: 11/13/16 11:52 Dose: 50 mls/hr Potassium Chloride 30 meq/ (Dextrose) 1,015 mls @ 60 mls/hr IV .[id number] [facility] Metoprolol Tartrate (Lopressor) 5 mg IVP Q6H PRN PRN Reason: Sustained HR > 130 Last Admin: 10/31/16 00:12 Dose: 5 mg Multi-Ingredient Ointment (Hydrophor Oint) 0 gm TOP Q6H [facility] Last Admin: 11/13/16 03:19 Dose: 1 applic Ondansetron HCl (Zofran Inj) 4 mg IVP Q4H PRN PRN Reason: Nausea/Vomiting Last Admin: 11/11/16 07:31 Dose: 4 mg Pantoprazole Sodium (Protonix Inj) 40 mg IVP Q12 [facility] Last Admin: 11/13/16 09:55 Dose: 40 mg Petrolatum (Desitin Maximum Strength Topical 40% Oint) 1 gm TOP Q4H PRN PRN Reason: Rash Last Admin: 10/23/16 22:39 Dose: 1 applic Propranolol HCl (Inderal La) 120 mg PO DAILY [facility] Last Admin: 11/13/16 09:53 Dose: 120 mg Sucralfate (Carafate Oral Susp) 1 gm PO BID [facility] Last Admin: 11/13/16 09:53 Dose: 1 gm Tobramycin Sulfate (Tobrex 0.3% Oph Soln) 1 drop OU QID [facility] Last Admin: 11/13/16 09:54 Dose: 1 drop Valganciclovir (Valcyte) 900 mg PO DAILY [facility] Last Admin: 11/13/16 09:53 Dose: 900 mg - Labs Labs: 11/13/16 08:43 11/13/16 08:43 PT 14.6 Seconds (9.9-11.8) H 11/11/16 20:40 INR 1.35 (0.93-1.08) H 11/11/16 20:40 APTT 31.9 Seconds (23.7-30.8) H 11/11/16 20:40 Assessment and Plan - Assessment and Plan (Free Text) Assessment: ca colon partial obst Ca with mets anemia Severe protien calorie malnutritoion tachcardia ...improving Plan: Supportive care increase nutritional support continue Beta elena.
[2016-11-13] MEDS: Micafungin 100 MG in Sodium Chloride 0.9% 100 ML IV SCH (14:49)
[2016-11-14] MEDS: HYDROmorphone 1 mg/ml PCA 25 ML IV PRN (02:18)
--- NOTE | 2016-11-14 06:50 | CP.PCM.PN ---
<Cassie rAcos - Last Filed: 11/15/16 06:34> Subjective - Date & Time of Evaluation Date of Evaluation: 11/14/16 Time of Evaluation: 06:47 - Subjective Subjective: PGY-[address] Hendricks Pending AM lab 5 maroon color BM from 7a yesterday -7a today VSS No dizziness, CP, palpitation Abdominal pain 3/10 at baseline, intermittent, self-resolved; 8-9, stabbing at worse, lasting for a second. Objective - Vital Signs/Intake and Output Vital Signs (last 24 hours): Temp Pulse Resp BP Pulse Ox 97.7 F 91 H 18 155/84 H 98 11/14/16 01:47 11/14/16 01:47 11/14/16 01:47 11/14/16 01:47 11/14/16 01:47 Intake and Output: 11/13/16 11/14/16 18:59 06:59 Intake Total 360 Output Total 1800 Balance -1440 - Medications Medications: Current Medications Acetaminophen (Tylenol 650 Mg Supp) 650 mg RC Q4H PRN PRN Reason: Fever >100.4 F Last Admin: 11/01/16 21:18 Dose: 650 mg Bismuth Subsalicylate (Pepto-Bismol) 262 mg PO BID [facility] Last Admin: 11/13/16 17:21 Dose: Not Given Collagenase (Santyl) 1 gm TOP BID [facility] Last Admin: 11/13/16 17:21 Dose: 1 applic Al Hydrox/Mg Hydrox/Simethicone 30 ml/Diphenhydramine HCl 75 mg/Lidocaine 30 ml 0 ml PO Q2H PRN PRN Reason: Mouth/Throat Pain Last Admin: 11/07/16 09:00 Dose: 15 ml Diphenhydramine HCl (Benadryl) 25 mg IVP Q4H PRN PRN Reason: Allergy symptoms Last Admin: 11/13/16 03:26 Dose: 25 mg Ergocalciferol (Drisdol 50,000 Intl Units Cap) 1 cap PO Q7D [facility] Last Admin: 11/12/16 15:18 Dose: Not Given Furosemide (Lasix) 20 mg IVP Q12 [facility] Last Admin: 11/13/16 22:18 Dose: 20 mg Home Med (Home Med) 1 unit PO Q12H PRN PRN Reason: Inflammation Last Admin: 10/18/16 11:03 Dose: 1 unit Hydralazine HCl (Apresoline) 10 mg PO Q6H PRN PRN Reason: SBP >170 Last Admin: 11/13/16 03:21 Dose: 10 mg Micafungin Sodium 100 mg/ (Sodium Chloride) 100 mls @ 100 mls/hr IV DAILY [facility] PRN Reason: Protocol Stop: 11/18/16 11:00 Last Admin: 11/13/16 14:49 Dose: 100 mls/hr Hydromorphone HCl (Dilaudid-Hp 1 Mg/Ml Garment Patternmaker) 25 mls @ 0.5 mls/hr IV PRN PRN; Protocol PRN Reason: CELLOPHANE WRAPPING EXAMINER PER MD ORDER Last Admin: 11/14/16 02:18 Dose: 0.5 mls/hr Potassium Chloride 30 meq/ (Dextrose) 1,015 mls @ 60 mls/hr IV .[id number] [facility] Last Admin: 11/13/16 14:28 Dose: 60 mls/hr Metoprolol Tartrate (Lopressor) 5 mg IVP Q6H PRN PRN Reason: Sustained HR > 130 Last Admin: 10/31/16 00:12 Dose: 5 mg Multi-Ingredient Ointment (Hydrophor Oint) 0 gm TOP Q6H [facility] Last Admin: 11/13/16 22:18 Dose: 1 applic Ondansetron HCl (Zofran Inj) 4 mg IVP Q4H PRN PRN Reason: Nausea/Vomiting Last Admin: 11/11/16 07:31 Dose: 4 mg Pantoprazole Sodium (Protonix Inj) 40 mg IVP Q12 [facility] Last Admin: 11/13/16 22:19 Dose: 40 mg Petrolatum (Desitin Maximum Strength Topical 40% Oint) 1 gm TOP Q4H PRN PRN Reason: Rash Last Admin: 10/23/16 22:39 Dose: 1 applic Propranolol HCl (Inderal La) 120 mg PO DAILY [facility] Last Admin: 11/13/16 09:53 Dose: 120 mg Sucralfate (Carafate Oral Susp) 1 gm PO BID [facility] Last Admin: 11/13/16 17:20 Dose: Not Given Tobramycin Sulfate (Tobrex 0.3% Oph Soln) 1 drop OU QID [facility] Last Admin: 11/13/16 22:19 Dose: 1 drop Valganciclovir (Valcyte) 900 mg PO DAILY [facility] Last Admin: 11/13/16 09:53 Dose: 900 mg - Labs Labs: 11/13/16 08:43 11/13/16 14:26 PT 14.6 Seconds (9.9-11.8) H 11/11/16 20:40 INR 1.35 (0.93-1.08) H 11/11/16 20:40 APTT 31.9 Seconds (23.7-30.8) H 11/11/16 20:40 - Constitutional Appears: Cachectic, Chronically Ill - Head Exam Head Exam: ATRAUMATIC, NORMAL INSPECTION, NORMOCEPHALIC - Eye Exam Eye Exam: EOMI, Normal appearance, PERRL. absent: Scleral icterus - ENT Exam ENT Exam: Mucous Membranes Moist - Neck Exam Neck Exam: absent: Meningismus - Respiratory Exam Respiratory Exam: Clear to Ausculation Bilateral. absent: Rales, Rhonchi, Wheezes - Cardiovascular Exam Cardiovascular Exam: REGULAR RHYTHM, +S1, +S2, Murmur - GI/Abdominal Exam GI & Abdominal Exam: Soft, Normal Bowel Sounds - Extremities Exam Extremities Exam: Normal Capillary Refill, Pedal Edema, Tenderness (2+ pitting) . absent: Calf Tenderness - Neurological Exam Neurological Exam: Alert, Awake - Psychiatric Exam Psychiatric exam: Normal Affect, Normal Mood - Skin Skin Exam: Dry, Warm Assessment and Plan - Assessment and Plan (Free Text) Plan: Ms Sherie Gibson is a 61 year old female with PMHx stage 4 colorectal cancer S/ P colectomy in 2014 with stenosis of sigmoid colon and esophageal ulceration of unclear etiology colon cancer stage 4 and Hx Cauda Equina syndrome. She was hospitalized on 10/09 for watery diarrhea with neutropenia. This hospitalization was complicated by (1) neutropenia sepsis due to fungemia, repeat culture from port-a-cath positive for nirmal albicans, port-a-cath removed on 11/12/16. (2) Now mucositis with GI bleed (hematochesia/maroon stool) requiring transfusion. Plan: Pt's on going blood loss is of eminent concern. today's Hb__drops from 9.4 to 8.0____Plt manual count 66 Will transfuse 2u pRBC and 1 plt today Pending repeat culture on 11/10 and 11/11 nrgative thus far. If negative will revisit possible palliative colostomy. Revisit goal of care on 11/12. Pt states that she is not ready for palliative or comfort care. #Stage IV metastatic colorectal cancer - hold futher specific treatment for now due to complications - s/p Port-a-cath removal #GI bleed, Active, (upper and lower) - Stricture at sigmoid colon from external pressure, with ulceration - Many ulcers on esophagus found on EGD, pathology negative - Continue CMV treatment, pt showing clinical improvement - Protonix IV BID - Downgrade to clear liquid diet per GI - Tapering TPN to 40, added clear ensure 3/day - Dietitan: under-nutritient - If Hb < 7, will transfuse anther unit of pRBC # thrombocytopenia - DIC workup negative - INR 1.35 #Fungemia - NEW: Port removed on 11/11. Culture showed gram (+) cocci in pain, pending id and sensitivity ([facility] [phone], [id number]) - Repeat blood culture on 11/04 (+) nirmal - continue mucafungin - port-a-cath removed (11/12) - repeat blood cultre 11/10 and 11/11 negative thus far; Pending port tip culture () - (?) PICC change tomorrow?? #FEN - clear liquid - TPN decrease to 40cc/hr per nephro for fungemia - replete electrolytes #Dispo - to be dertermined - prognosis guarded - consider rehab replacement at minimum - OOB to chair will not cause GI bleed. Increase pain coverage prior transfer and safety precaution. #Full code #Access - L PICC - mily s/r/d/w Dr. Hendricks <Kedar Hendricks - Last Filed: 11/25/16 01:10> Objective - Vital Signs/Intake and Output Vital Signs (last 24 hours): Temp Pulse Resp BP Pulse Ox 97.1 F L 50 L 18 126/58 L 98 11/25/16 00:00 07/16/17 00:00 11/25/16 00:00 11/25/16 00:00 11/25/16 00:00 Intake and Output: 11/24/16 11/25/16 18:59 06:59 Intake Total 2709 425 Output Total 1980 Balance 729 425 - Medications Medications: Current Medications Acetaminophen (Tylenol 650 Mg Supp) 650 mg RC Q4H PRN PRN Reason: Fever >100.4 F Last Admin: 11/01/16 21:18 Dose: 650 mg Collagenase (Santyl) 1 gm TOP BID [facility] Last Admin: 11/24/16 10:43 Dose: 1 applic Diphenhydramine HCl (Benadryl) 50 mg IVP HS PRN PRN Reason: Insomnia Last Admin: 11/23/16 02:36 Dose: 50 mg Ergocalciferol (Drisdol 50,000 Intl Units Cap) 1 cap PO Q7D [facility] Last Admin: 11/19/16 18:04 Dose: Not Given Fentanyl (Duragesic) 1 patch TD Q72H [facility] Last Admin: 11/22/16 14:30 Dose: 1 patch Ferrous Sulfate (Feosol) 324 mg PO TID [facility] Last Admin: 11/24/16 17:15 Dose: Not Given Furosemide (Lasix) 20 mg IVP Q12 [facility] Last Admin: 11/24/16 23:15 Dose: 20 mg Home Med (Home Med) 1 unit PO Q12H PRN PRN Reason: Inflammation Last Admin: 10/18/16 11:03 Dose: 1 unit Hydromorphone HCl (Dilaudid) 1 mg IVP Q1H PRN PRN Reason: Pain, severe (8-10) Last Admin: 11/25/16 01:00 Dose: 1 mg Daptomycin 440 mg/ Sodium (Chloride) 100 mls @ 200 mls/hr IV Q24H [facility] Stop: 11/27/16 09:01 Last Admin: 11/24/16 19:08 Dose: 200 mls/hr Micafungin Sodium 100 mg/ (Sodium Chloride) 100 mls @ 100 mls/hr IV DAILY [facility] PRN Reason: Protocol Stop: 11/28/16 10:01 Last Admin: 11/24/16 10:35 Dose: 100 mls/hr Potassium Chloride 40 meq/ (Dextrose/Sodium Chloride) 1,020 mls @ 80 mls/hr IV .[id number] [facility] Last Admin: 11/24/16 05:49 Dose: 80 mls/hr Cefepime HCl (Maxipime 1gm) 1 gm in 100 mls @ 100 mls/hr IVPB Q12 [facility] PRN Reason: Protocol Last Admin: 11/24/16 23:16 Dose: 100 mls/hr Magnesium Oxide (Mag-Ox) 400 mg PO BID [facility] Last Admin: 11/24/16 17:16 Dose: Not Given Multi-Ingredient Ointment (Hydrophor Oint) 0 gm TOP Q6H PRN PRN Reason: Dry lip Multivitamins (Thera Tab) 1 tab PO 0800 [facility] Last Admin: 11/24/16 10:38 Dose: Not Given Ondansetron HCl (Zofran Inj) 4 mg IVP Q4H PRN PRN Reason: Nausea/Vomiting Last Admin: 11/24/16 00:05 Dose: 4 mg Pantoprazole Sodium (Protonix Inj) 40 mg IVP Q12 [facility] Last Admin: 11/24/16 23:16 Dose: 40 mg Petrolatum (Desitin Maximum Strength Topical 40% Oint) 1 gm TOP Q4H PRN PRN Reason: Rash Last Admin: 10/23/16 22:39 Dose: 1 applic Potassium Chloride (K-Dur 20 Meq Er Tab) 40 meq PO DAILY [facility] Last Admin: 11/24/16 10:39 Dose: Not Given Propranolol HCl (Inderal La) 120 mg PO DAILY [facility] Last Admin: 11/24/16 10:31 Dose: 120 mg Sucralfate (Carafate Oral Susp) 1 gm PO BID [facility] Last Admin: 11/24/16 19:09 Dose: Not Given - Labs Labs: 11/24/16 07:53 11/24/16 07:53 PT 13.1 Seconds (9.9-11.8) H 11/24/16 10:03 INR 1.21 (0.93-1.08) H 11/24/16 10:03 APTT 31.2 Seconds (23.7-30.8) H 11/24/16 10:03 Attending/Attestation - Attestation I have personally seen and examined this patient.: Yes I have fully participated in the care of the patient.: Yes I have reviewed all pertinent clinical information, including history, physical exam and plan: Yes
[2016-11-14 07:23] LABS: ALB/GLOB RATIO 0.7 (1.1-1.8); ALBUMIN 1.8 g/dL (3.0-4.8); ALT/SGPT 25 U/L (7-56); AST/SGOT 12 U/L (15-39); BLOOD UREA NITROGEN 46 mg/dL (7-21); CALCIUM 7.3 mg/dL (8.4-10.5); GFR AFRICAN-AMERICAN > 60; GFR NON-AFRICAN AMERICAN > 60; MAGNESIUM 1.5 mg/dL (1.7-2.2)
[2016-11-14] MEDS ORDERED: Magnesium Sulfate 2 GM in Sodium Chloride 0.9% 100 ML IVPB ONE (07:37)
[2016-11-14] MEDS ORDERED: Potassium Chloride 40 mEq/30 ml LIQ UD PO ONE (08:00)
--- NOTE | 2016-11-14 08:01 | CP.PCM.PN ---
Subjective - Date & Time of Evaluation Date of Evaluation: 11/14/16 Time of Evaluation: 07:58 - Subjective Subjective: PGY [address] Mccracken Patient seen and examined this morning. No acute events over night. Patient states she is still having bloody diarrhea but the blood has been less over the previous two days. Her last BM was this morning. She is tolerating her diet. She states she is in no pain while at rest but complains of lower abdominal pain with movement. Objective - Vital Signs/Intake and Output Vital Signs (last 24 hours): Temp Pulse Resp BP Pulse Ox 97.7 F 97 H 18 155/84 H 98 11/14/16 01:47 11/14/16 06:00 11/14/16 01:47 11/14/16 01:47 11/14/16 01:47 Intake and Output: 11/14/16 11/14/16 06:59 18:59 Intake Total 360 480 Output Total 1800 1400 Balance -1440 -920 - Medications Medications: Current Medications Acetaminophen (Tylenol 650 Mg Supp) 650 mg RC Q4H PRN PRN Reason: Fever >100.4 F Last Admin: 11/01/16 21:18 Dose: 650 mg Bismuth Subsalicylate (Pepto-Bismol) 262 mg PO BID [facility] Last Admin: 11/13/16 17:21 Dose: Not Given Collagenase (Santyl) 1 gm TOP BID [facility] Last Admin: 11/13/16 17:21 Dose: 1 applic Al Hydrox/Mg Hydrox/Simethicone 30 ml/Diphenhydramine HCl 75 mg/Lidocaine 30 ml 0 ml PO Q2H PRN PRN Reason: Mouth/Throat Pain Last Admin: 11/07/16 09:00 Dose: 15 ml Diphenhydramine HCl (Benadryl) 25 mg IVP Q4H PRN PRN Reason: Allergy symptoms Last Admin: 11/13/16 03:26 Dose: 25 mg Ergocalciferol (Drisdol 50,000 Intl Units Cap) 1 cap PO Q7D [facility] Last Admin: 11/12/16 15:18 Dose: Not Given Furosemide (Lasix) 20 mg IVP Q12 [facility] Last Admin: 11/13/16 22:18 Dose: 20 mg Home Med (Home Med) 1 unit PO Q12H PRN PRN Reason: Inflammation Last Admin: 10/18/16 11:03 Dose: 1 unit Hydralazine HCl (Apresoline) 10 mg PO Q6H PRN PRN Reason: SBP >170 Last Admin: 11/13/16 03:21 Dose: 10 mg Micafungin Sodium 100 mg/ (Sodium Chloride) 100 mls @ 100 mls/hr IV DAILY [facility] PRN Reason: Protocol Stop: 11/18/16 11:00 Last Admin: 11/13/16 14:49 Dose: 100 mls/hr Hydromorphone HCl (Dilaudid-Hp 1 Mg/Ml [place]) 25 mls @ 0.5 mls/hr IV PRN PRN; Protocol PRN Reason: DIRECTOR OF EMAIL MARKETING PER MD ORDER Last Admin: 11/14/16 02:18 Dose: 0.5 mls/hr Potassium Chloride 30 meq/ (Dextrose) 1,015 mls @ 60 mls/hr IV .[id number] [facility] Last Admin: 11/13/16 14:28 Dose: 60 mls/hr Magnesium Sulfate 2 gm/ Sodium (Chloride) 104 mls @ 102 mls/hr IVPB ONCE ONE Stop: 11/14/16 08:38 Potassium Chloride (Potassium Chloride 20 Meq/100 Ml) 20 meq in 100 mls @ 50 mls/hr IVPB Q2H [facility] Stop: 11/14/16 11:44 Metoprolol Tartrate (Lopressor) 5 mg IVP Q6H PRN PRN Reason: Sustained HR > 130 Last Admin: 10/31/16 00:12 Dose: 5 mg Multi-Ingredient Ointment (Hydrophor Oint) 0 gm TOP Q6H [facility] Last Admin: 11/13/16 22:18 Dose: 1 applic Ondansetron HCl (Zofran Inj) 4 mg IVP Q4H PRN PRN Reason: Nausea/Vomiting Last Admin: 11/11/16 07:31 Dose: 4 mg Pantoprazole Sodium (Protonix Inj) 40 mg IVP Q12 [facility] Last Admin: 11/13/16 22:19 Dose: 40 mg Petrolatum (Desitin Maximum Strength Topical 40% Oint) 1 gm TOP Q4H PRN PRN Reason: Rash Last Admin: 10/23/16 22:39 Dose: 1 applic Propranolol HCl (Inderal La) 120 mg PO DAILY [facility] Last Admin: 11/13/16 09:53 Dose: 120 mg Sucralfate (Carafate Oral Susp) 1 gm PO BID [facility] Last Admin: 11/13/16 17:20 Dose: Not Given Tobramycin Sulfate (Tobrex 0.3% Ophth Soln) 1 drop OU QID [facility] Last Admin: 11/13/16 22:19 Dose: 1 drop Valganciclovir (Valcyte) 900 mg PO DAILY [facility] Last Admin: 11/13/16 09:53 Dose: 900 mg - Labs Labs: 11/13/16 08:43 11/14/16 06:50 PT 14.6 Seconds (9.9-11.8) H 11/11/16 20:40 INR 1.35 (0.93-1.08) H 11/11/16 20:40 APTT 31.9 Seconds (23.7-30.8) H 11/11/16 20:40 - Constitutional Appears: Non-toxic - Head Exam Head Exam: NORMAL INSPECTION - Eye Exam Eye Exam: EOMI, Normal appearance - ENT Exam ENT Exam: Mucous Membranes Moist - Respiratory Exam Respiratory Exam: Clear to Ausculation Bilateral, NORMAL BREATHING PATTERN. absent: Rales, Rhonchi, Wheezes - Cardiovascular Exam Cardiovascular Exam: REGULAR RHYTHM, +S1, +S2 - GI/Abdominal Exam GI & Abdominal Exam: Soft, Normal Bowel Sounds - Psychiatric Exam Psychiatric exam: Normal Affect, Normal Mood - Skin Skin Exam: Normal Color, Warm Assessment and Plan - Assessment and Plan (Free Text) Assessment: 61 y.o. F with sacral wound and GI bleed Plan: Continue wound care management Continue to monitor H/H's - am labs pending Replete Potassium - 2.9 on am lab Monitor PICC site for signs of infection Monitor Port removal site for signs of infection Dereje London PGY 1
[2016-11-14 08:07] LABS: EOS # 0.2 (0.0-0.7); EOS % 6.2 % (1.5-5.0); GRAN # 2.42 (1.4-6.5); GRAN % 70.9 % (50.0-68.0); LYMPH # 0.4 (1.2-3.4); LYMPH % 12.6 % (22.0-35.0); MEAN CELL VOLUME 93.1 fL (80.0-105.0); MEAN CORPUSCULAR HEMOGLOBIN 32.3 pg (25.0-35.0); MEAN CORPUSCULAR HGB CONC 34.6 g/dl (31.0-37.0); MONO # 0.4 (0.1-0.6); MONO % 10.3 % (1.0-6.0); PLATELET COUNT 43 10^3/uL (120.0-450.0); RBC 2.48 10^6/uL (3.5-6.1); RED CELL DISTRIBUTION WIDTH 18.4 % (11.5-14.5); WHITE BLOOD COUNT 3.4 10^3/ul (4.5-11.0)
[2016-11-14 08:33] LABS: PLATELET COUNT MANUAL 66 K/mm3 (120-450)
[2016-11-14] MEDS ORDERED: DAPTOmycin 500 mg Inj (Cubicin) IV SCH (09:00)
[2016-11-14] MEDS: Petrolatum-Mineral Oil Oint (100gm) TOP SCH ×3 (10:00→21:17)
--- NOTE | 2016-11-14 10:44 | CP.PCM.PN ---
Subjective - Date & Time of Evaluation Date of Evaluation: 11/14/16 Time of Evaluation: 09:00 - Subjective Subjective: S&E, chart reviewed. S/P 5 units PRBC yesterday. continue to have bloody BM. Patient more awake but just took dose of STAFF NURSE ANESTHETIST pump and a bit drowsy. Sister at bedside, taking in as much liquids as she can tolerated per sister. Port removed , off PPN, culture of port tip negative. Objective - Vital Signs/Intake and Output Vital Signs (last 24 hours): Temp Pulse Resp BP Pulse Ox 98.6 F 100 H 20 136/86 98 11/14/16 06:00 11/14/16 06:00 11/14/16 06:00 11/14/16 06:00 11/14/16 06:00 Intake and Output: 11/14/16 11/14/16 06:59 18:59 Intake Total 360 480 Output Total 1800 1400 Balance -1440 -920 - Medications Medications: Current Medications Acetaminophen (Tylenol 650 Mg Supp) 650 mg RC Q4H PRN PRN Reason: Fever >100.4 F Last Admin: 11/01/16 21:18 Dose: 650 mg Bismuth Subsalicylate (Pepto-Bismol) 262 mg PO BID [facility] Last Admin: 11/13/16 17:21 Dose: Not Given Collagenase (Santyl) 1 gm TOP BID [facility] Last Admin: 11/13/16 17:21 Dose: 1 applic Al Hydrox/Mg Hydrox/Simethicone 30 ml/Diphenhydramine HCl 75 mg/Lidocaine 30 ml 0 ml PO Q2H PRN PRN Reason: Mouth/Throat Pain Last Admin: 11/07/16 09:00 Dose: 15 ml Diphenhydramine HCl (Benadryl) 25 mg IVP Q4H PRN PRN Reason: Allergy symptoms Last Admin: 11/13/16 03:26 Dose: 25 mg Ergocalciferol (Drisdol 50,000 Intl Units Cap) 1 cap PO Q7D [facility] Last Admin: 11/12/16 15:18 Dose: Not Given Furosemide (Lasix) 20 mg IVP Q12 [facility] Last Admin: 11/13/16 22:18 Dose: 20 mg Home Med (Home Med) 1 unit PO Q12H PRN PRN Reason: Inflammation Last Admin: 10/18/16 11:03 Dose: 1 unit Hydralazine HCl (Apresoline) 10 mg PO Q6H PRN PRN Reason: SBP >170 Last Admin: 11/13/16 03:21 Dose: 10 mg Micafungin Sodium 100 mg/ (Sodium Chloride) 100 mls @ 100 mls/hr IV DAILY [facility] PRN Reason: Protocol Stop: 11/18/16 11:00 Last Admin: 11/13/16 14:49 Dose: 100 mls/hr Hydromorphone HCl (Dilaudid-Hp 1 Mg/Ml Drafting Layout Man) 25 mls @ 0.5 mls/hr IV PRN PRN; Protocol PRN Reason: STAFF NURSE ANESTHETIST PER MD ORDER Last Admin: 11/14/16 02:18 Dose: 0.5 mls/hr Potassium Chloride 30 meq/ (Dextrose) 1,015 mls @ 60 mls/hr IV .[id number] [facility] Last Admin: 11/14/16 08:00 Dose: 60 mls/hr Potassium Chloride (Potassium Chloride 20 Meq/100 Ml) 20 meq in 100 mls @ 50 mls/hr IVPB Q2H [facility] Stop: 11/14/16 11:44 Last Admin: 11/14/16 08:00 Dose: 50 mls/hr Cefepime HCl (Maxipime 2gm) 2 gm in 100 mls @ 100 mls/hr IVPB Q12 [facility] PRN Reason: Protocol Stop: 11/21/16 10:01 Daptomycin 440 mg/ Sodium (Chloride) 100 mls @ 200 mls/hr IV Q24H [facility] Stop: 11/28/16 09:16 Metoprolol Tartrate (Lopressor) 5 mg IVP Q6H PRN PRN Reason: Sustained HR > 130 Last Admin: 10/31/16 00:12 Dose: 5 mg Multi-Ingredient Ointment (Hydrophor Oint) 0 gm TOP Q6H [facility] Last Admin: 11/13/16 22:18 Dose: 1 applic Ondansetron HCl (Zofran Inj) 4 mg IVP Q4H PRN PRN Reason: Nausea/Vomiting Last Admin: 11/11/16 07:31 Dose: 4 mg Pantoprazole Sodium (Protonix Inj) 40 mg IVP Q12 [facility] Last Admin: 11/13/16 22:19 Dose: 40 mg Petrolatum (Desitin Maximum Strength Topical 40% Oint) 1 gm TOP Q4H PRN PRN Reason: Rash Last Admin: 10/23/16 22:39 Dose: 1 applic Propranolol HCl (Inderal La) 120 mg PO DAILY [facility] Last Admin: 11/13/16 09:53 Dose: 120 mg Sucralfate (Carafate Oral Susp) 1 gm PO BID [facility] Last Admin: 11/13/16 17:20 Dose: Not Given Tobramycin Sulfate (Tobrex 0.3% Ophth Soln) 1 drop OU QID [facility] Last Admin: 11/13/16 22:19 Dose: 1 drop Valganciclovir (Valcyte) 900 mg PO DAILY [facility] Last Admin: 11/13/16 09:53 Dose: 900 mg - Labs Labs: 11/14/16 06:50 11/14/16 06:50 PT 14.6 Seconds (9.9-11.8) H 11/11/16 20:40 INR 1.35 (0.93-1.08) H 11/11/16 20:40 APTT 31.9 Seconds (23.7-30.8) H 11/11/16 20:40 - Constitutional Appears: Chronically Ill - Head Exam Head Exam: NORMOCEPHALIC - Eye Exam Eye Exam: Normal appearance. absent: Scleral icterus - ENT Exam ENT Exam: Mucous Membranes Moist - Neck Exam Neck Exam: Normal Inspection - Respiratory Exam Respiratory Exam: NORMAL BREATHING PATTERN. absent: Respiratory Distress - Cardiovascular Exam Cardiovascular Exam: +S1, +S2 - GI/Abdominal Exam GI & Abdominal Exam: Soft, Tenderness, Normal Bowel Sounds. 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 Null
[2016-11-14] MEDS: Propranolol 60 mg ER Cap PO SCH (10:52)
[2016-11-14] MEDS: Collagenase 250 Units/gm Ointment(30 gm) TOP SCH ×2 (10:53→17:59)
[2016-11-14] MEDS: Sucralfate 1 gm/10 ml Oral Susp UD PO SCH ×2 (10:53→17:58)
[2016-11-14] MEDS: Bismuth Subsalicylate 262 mg/15 ml Sus (240 ml) PO SCH ×2 (10:53→17:59)
[2016-11-14] MEDS: Tobramycin 0.3% OPHT SOLN OU SCH ×4 (10:53→21:16)
--- NOTE | 2016-11-14 11:44 | CP.PCM.PN ---
Subjective - Date & Time of Evaluation Date of Evaluation: 11/14/16 Time of Evaluation: 11:10 - Subjective Subjective: Patient continues to be weak, still not eating well, not swallowing because of the pain. No fevers overnight. Objective - Vital Signs/Intake and Output Vital Signs (last 24 hours): Temp Pulse Resp BP Pulse Ox 98.6 F 100 H 20 136/86 98 11/14/16 06:00 11/14/16 06:00 11/14/16 06:00 11/14/16 06:00 11/14/16 06:00 Intake and Output: 11/14/16 11/14/16 06:59 18:59 Intake Total 360 480 Output Total 1800 1400 Balance -1440 -920 - Medications Medications: Current Medications Acetaminophen (Tylenol 650 Mg Supp) 650 mg RC Q4H PRN PRN Reason: Fever >100.4 F Last Admin: 11/01/16 21:18 Dose: 650 mg Bismuth Subsalicylate (Pepto-Bismol) 262 mg PO BID [facility] Last Admin: 11/13/16 17:21 Dose: Not Given Collagenase (Santyl) 1 gm TOP BID [facility] Last Admin: 11/13/16 17:21 Dose: 1 applic Al Hydrox/Mg Hydrox/Simethicone 30 ml/Diphenhydramine HCl 75 mg/Lidocaine 30 ml 0 ml PO Q2H PRN PRN Reason: Mouth/Throat Pain Last Admin: 11/07/16 09:00 Dose: 15 ml Diphenhydramine HCl (Benadryl) 25 mg IVP Q4H PRN PRN Reason: Allergy symptoms Last Admin: 11/13/16 03:26 Dose: 25 mg Ergocalciferol (Drisdol 50,000 Intl Units Cap) 1 cap PO Q7D [facility] Last Admin: 11/12/16 15:18 Dose: Not Given Furosemide (Lasix) 20 mg IVP Q12 [facility] Last Admin: 11/13/16 22:18 Dose: 20 mg Home Med (Home Med) 1 unit PO Q12H PRN PRN Reason: Inflammation Last Admin: 10/18/16 11:03 Dose: 1 unit Hydralazine HCl (Apresoline) 10 mg PO Q6H PRN PRN Reason: SBP >170 Last Admin: 11/13/16 03:21 Dose: 10 mg Micafungin Sodium 100 mg/ (Sodium Chloride) 100 mls @ 100 mls/hr IV DAILY [facility] PRN Reason: Protocol Stop: 11/18/16 11:00 Last Admin: 11/13/16 14:49 Dose: 100 mls/hr Hydromorphone HCl (Dilaudid-Hp 1 Mg/Ml Research Leader) 25 mls @ 0.5 mls/hr IV PRN PRN; Protocol PRN Reason: BELT LACER PER MD ORDER Last Admin: 11/14/16 02:18 Dose: 0.5 mls/hr Potassium Chloride 30 meq/ (Dextrose) 1,015 mls @ 60 mls/hr IV .[id number] [facility] Last Admin: 11/14/16 08:00 Dose: 60 mls/hr Potassium Chloride (Potassium Chloride 20 Meq/100 Ml) 20 meq in 100 mls @ 50 mls/hr IVPB Q2H [facility] Stop: 11/14/16 11:44 Last Admin: 11/14/16 08:00 Dose: 50 mls/hr Cefepime HCl (Maxipime 2gm) 2 gm in 100 mls @ 100 mls/hr IVPB Q12 [facility] PRN Reason: Protocol Stop: 11/21/16 10:01 Metoprolol Tartrate (Lopressor) 5 mg IVP Q6H PRN PRN Reason: Sustained HR > 130 Last Admin: 10/31/16 00:12 Dose: 5 mg Multi-Ingredient Ointment (Hydrophor Oint) 0 gm TOP Q6H [facility] Last Admin: 11/13/16 22:18 Dose: 1 applic Ondansetron HCl (Zofran Inj) 4 mg IVP Q4H PRN PRN Reason: Nausea/Vomiting Last Admin: 11/11/16 07:31 Dose: 4 mg Pantoprazole Sodium (Protonix Inj) 40 mg IVP Q12 [facility] Last Admin: 11/13/16 22:19 Dose: 40 mg Petrolatum (Desitin Maximum Strength Topical 40% Oint) 1 gm TOP Q4H PRN PRN Reason: Rash Last Admin: 10/23/16 22:39 Dose: 1 applic Propranolol HCl (Inderal La) 120 mg PO DAILY [facility] Last Admin: 11/13/16 09:53 Dose: 120 mg Sucralfate (Carafate Oral Susp) 1 gm PO BID [facility] Last Admin: 11/13/16 17:20 Dose: Not Given Tobramycin Sulfate (Tobrex 0.3% Ophth Soln) 1 drop OU QID [facility] Last Admin: 11/13/16 22:19 Dose: 1 drop Valganciclovir (Valcyte) 900 mg PO DAILY [facility] Last Admin: 11/13/16 09:53 Dose: 900 mg - Labs Labs: 11/14/16 06:50 11/14/16 06:50 PT 14.6 Seconds (9.9-11.8) H 11/11/16 20:40 INR 1.35 (0.93-1.08) H 11/11/16 20:40 APTT 31.9 Seconds (23.7-30.8) H 11/11/16 20:40 - Constitutional Appears: Chronically Ill - Head Exam Head Exam: NORMAL INSPECTION - Neck Exam Neck Exam: absent: Meningismus - Respiratory Exam Respiratory Exam: Decreased Breath Sounds - Cardiovascular Exam Cardiovascular Exam: +S1, +S2 - GI/Abdominal Exam GI & Abdominal Exam: Soft. 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
[2016-11-14] MEDS: Cefepime IV 2 gm in NS 2 GM/100 ML BAG IVPB SCH ×2 (13:03→21:29)
--- NOTE | 2016-11-14 13:24 | CP.PCM.PN ---
Subjective - Date & Time of Evaluation Date of Evaluation: 11/14/16 Time of Evaluation: 10:00 - Subjective Subjective: Patient with CA Colon with Metastasis and Anaemia having Bloody Stools. Denies Chest Pain, SOB, Palpitations. Objective - Vital Signs/Intake and Output Vital Signs (last 24 hours): Temp Pulse Resp BP Pulse Ox 98.6 F 100 H 20 136/86 98 11/14/16 06:00 11/14/16 10:52 11/14/16 06:00 11/14/16 10:52 11/14/16 06:00 Intake and Output: 11/14/16 11/14/16 06:59 18:59 Intake Total 360 480 Output Total 1800 1400 Balance -1440 -920 - Medications Medications: Current Medications Acetaminophen (Tylenol 650 Mg Supp) 650 mg RC Q4H PRN PRN Reason: Fever >100.4 F Last Admin: 11/01/16 21:18 Dose: 650 mg Bismuth Subsalicylate (Pepto-Bismol) 262 mg PO BID [facility] Last Admin: 11/14/16 10:53 Dose: Not Given Collagenase (Santyl) 1 gm TOP BID [facility] Last Admin: 11/14/16 10:53 Dose: 1 applic Al Hydrox/Mg Hydrox/Simethicone 30 ml/Diphenhydramine HCl 75 mg/Lidocaine 30 ml 0 ml PO Q2H PRN PRN Reason: Mouth/Throat Pain Last Admin: 11/07/16 09:00 Dose: 15 ml Diphenhydramine HCl (Benadryl) 25 mg IVP Q4H PRN PRN Reason: Allergy symptoms Last Admin: 11/13/16 03:26 Dose: 25 mg Ergocalciferol (Drisdol 50,000 Intl Units Cap) 1 cap PO Q7D [facility] Last Admin: 11/12/16 15:18 Dose: Not Given Furosemide (Lasix) 20 mg IVP Q12 [facility] Last Admin: 11/14/16 10:52 Dose: 20 mg Home Med (Home Med) 1 unit PO Q12H PRN PRN Reason: Inflammation Last Admin: 10/18/16 11:03 Dose: 1 unit Hydralazine HCl (Apresoline) 10 mg PO Q6H PRN PRN Reason: SBP >170 Last Admin: 11/13/16 03:21 Dose: 10 mg Micafungin Sodium 100 mg/ (Sodium Chloride) 100 mls @ 100 mls/hr IV DAILY [facility] PRN Reason: Protocol Stop: 11/18/16 11:00 Last Admin: 11/13/16 14:49 Dose: 100 mls/hr Hydromorphone HCl (Dilaudid-Hp 1 Mg/Ml Data Warehousing Engineer) 25 mls @ 0.5 mls/hr IV PRN PRN; Protocol PRN Reason: BRANCH SALES MANAGER PER MD ORDER Last Admin: 11/14/16 02:18 Dose: 0.5 mls/hr Potassium Chloride 30 meq/ (Dextrose) 1,015 mls @ 60 mls/hr IV .[id number] [facility] Last Admin: 11/14/16 08:00 Dose: 60 mls/hr Cefepime HCl (Maxipime 2gm) 2 gm in 100 mls @ 100 mls/hr IVPB Q12 [facility] PRN Reason: Protocol Stop: 11/21/16 10:01 Last Admin: 11/14/16 13:03 Dose: 100 mls/hr Daptomycin 440 mg/ Sodium (Chloride) 100 mls @ 200 mls/hr IV Q24H [facility] Stop: 11/28/16 09:16 Potassium Chloride (Potassium Chloride 20 Meq/100 Ml) 20 meq in 100 mls @ 50 mls/hr IVPB Q2H [facility] Stop: 11/14/16 14:44 Metoprolol Tartrate (Lopressor) 5 mg IVP Q6H PRN PRN Reason: Sustained HR > 130 Last Admin: 10/31/16 00:12 Dose: 5 mg Multi-Ingredient Ointment (Hydrophor Oint) 0 gm TOP Q6H [facility] Last Admin: 11/13/16 22:18 Dose: 1 applic Ondansetron HCl (Zofran Inj) 4 mg IVP Q4H PRN PRN Reason: Nausea/Vomiting Last Admin: 11/11/16 07:31 Dose: 4 mg Pantoprazole Sodium (Protonix Inj) 40 mg IVP Q12 [facility] Last Admin: 11/14/16 10:52 Dose: 40 mg Petrolatum (Desitin Maximum Strength Topical 40% Oint) 1 gm TOP Q4H PRN PRN Reason: Rash Last Admin: 10/23/16 22:39 Dose: 1 applic Propranolol HCl (Inderal La) 120 mg PO DAILY [facility] Last Admin: 11/14/16 10:52 Dose: 120 mg Sucralfate (Carafate Oral Susp) 1 gm PO BID [facility] Last Admin: 11/14/16 10:53 Dose: 1 gm Tobramycin Sulfate (Tobrex 0.3% Ophth Soln) 1 drop OU QID [facility] Last Admin: 11/14/16 10:53 Dose: 1 drop Valganciclovir (Valcyte) 900 mg PO DAILY [facility] Last Admin: 11/14/16 11:09 Dose: Not Given - Labs Labs: 11/14/16 06:50 11/14/16 06:50 PT 14.6 Seconds (9.9-11.8) H 11/11/16 20:40 INR 1.35 (0.93-1.08) H 11/11/16 20:40 APTT 31.9 Seconds (23.7-30.8) H 11/11/16 20:40 - Constitutional Appears: Chronically Ill - Head Exam Head Exam: NORMAL INSPECTION - Eye Exam Additional comments: Conjunctiva is Pale. - ENT Exam ENT Exam: Mucous Membranes Moist, Normal Exam - Neck Exam Neck Exam: Full ROM, Normal Inspection. absent: Lymphadenopathy - Respiratory Exam Respiratory Exam: Clear to Ausculation Bilateral, NORMAL BREATHING PATTERN - Cardiovascular Exam Cardiovascular Exam: Tachycardia, +S1, +S2 - GI/Abdominal Exam GI & Abdominal Exam: Soft, Normal Bowel Sounds - Exam Exam: NORMAL INSPECTION - Extremities Exam Additional comments: Oedema Arms due to Low Protiens. - Neurological Exam Neurological Exam: Alert, Awake, CN II-XII Intact, Normal Gait, Oriented x3 - Skin Skin Exam: Dry Assessment and Plan (1) Anemia Status: Acute (2) Diarrhea Status: Acute (3) Fungemia Status: Acute (4) Hypoalbuminemia Status: Acute (5) Metastasis from colon cancer Status: Acute (6) Neutropenic sepsis Status: Acute (7) Renal failure Status: Acute (8) Thrombocytopenia Status: Acute (9) Abdominal pain Status: Acute (10) Constipation Status: Acute (11) Gastrointestinal hemorrhage Status: Acute (12) Sacral nerve root compression Status: Acute (13) Sciatica Status: Acute (14) Urinary retention Status: Acute (15) Colon tumor Status: Chronic - Assessment and Plan (Free Text) Assessment: CA Colon with Metastasis, Severe Anaemia, Bloody Diarrhe, Mal Nutrition, Hypoprtienemia. Oedema Arms due to Low Protiens.Sinus Tachycardia.THROMBOCYTOPENIA, lEUKOPENIA. Plan: Sinus Tachycardia Multifactorial. Continue Inderol and other Meds. Blood Transfusions as Needed. Increase Nutritional State.
[2016-11-14] MEDS: Micafungin 100 MG in Sodium Chloride 0.9% 100 ML IV SCH (14:06)
[2016-11-14 16:26] LABS: BLOOD UREA NITROGEN 40 mg/dL (7-21); CALCIUM 7.3 mg/dL (8.4-10.5); GFR AFRICAN-AMERICAN > 60; GFR NON-AFRICAN AMERICAN > 60; MAGNESIUM 1.8 mg/dL (1.7-2.2)
[2016-11-14 16:48] LABS: EOS # 0.2 (0.0-0.7); EOS % 4.8 % (1.5-5.0); GRAN # 3.22 (1.4-6.5); GRAN % 77.2 % (50.0-68.0); LYMPH # 0.5 (1.2-3.4); MEAN CELL VOLUME 98.1 fL (80.0-105.0); MEAN CORPUSCULAR HEMOGLOBIN 35.6 pg (25.0-35.0); MEAN CORPUSCULAR HGB CONC 36.3 g/dl (31.0-37.0); MEAN PLATELET VOLUME 12.3 fl (7.0-11.0); MONO # 0.3 (0.1-0.6); PLATELET COUNT 39 10^3/uL (120.0-450.0); RBC 2.08 10^6/uL (3.5-6.1); RED CELL DISTRIBUTION WIDTH 20.6 % (11.5-14.5); WHITE BLOOD COUNT 4.2 10^3/ul (4.5-11.0)
[2016-11-14 16:54] LABS: HEMOGLOBIN 7.4 gm/dL (12.0-16.0)
--- NOTE | 2016-11-14 18:08 | CP.PCM.PN ---
Subjective - Date & Time of Evaluation Date of Evaluation: 11/14/16 Time of Evaluation: 14:00 - Subjective Subjective: Subjective: patient is awake, alert, reports feeling better, still with lower abdominal pain Awaiting PICC line Port out Off EFRA Objective - Vital Signs/Intake and Output Vital Signs (last 24 hours): Temp Pulse Resp BP Pulse Ox 97.7 F 92 H 18 120/76 100 11/14/16 16:04 11/14/16 16:04 11/14/16 16:04 11/14/16 16:04 11/14/16 16:00 Intake and Output: 11/14/16 11/14/16 06:59 18:59 Intake Total 360 1126 Output Total 1800 2300 Balance -1440 -1174 - Medications Medications: Current Medications Acetaminophen (Tylenol 650 Mg Supp) 650 mg RC Q4H PRN PRN Reason: Fever >100.4 F Last Admin: 11/01/16 21:18 Dose: 650 mg Bismuth Subsalicylate (Pepto-Bismol) 262 mg PO BID [facility] Last Admin: 11/14/16 17:59 Dose: Not Given Collagenase (Santyl) 1 gm TOP BID [facility] Last Admin: 11/14/16 17:59 Dose: 1 applic Al Hydrox/Mg Hydrox/Simethicone 30 ml/Diphenhydramine HCl 75 mg/Lidocaine 30 ml 0 ml PO Q2H PRN PRN Reason: Mouth/Throat Pain Last Admin: 11/07/16 09:00 Dose: 15 ml Diphenhydramine HCl (Benadryl) 25 mg IVP Q4H PRN PRN Reason: Allergy symptoms Last Admin: 11/13/16 03:26 Dose: 25 mg Ergocalciferol (Drisdol 50,000 Intl Units Cap) 1 cap PO Q7D [facility] Last Admin: 11/12/16 15:18 Dose: Not Given Furosemide (Lasix) 20 mg IVP Q12 [facility] Last Admin: 11/14/16 10:52 Dose: 20 mg Home Med (Home Med) 1 unit PO Q12H PRN PRN Reason: Inflammation Last Admin: 10/18/16 11:03 Dose: 1 unit Hydralazine HCl (Apresoline) 10 mg PO Q6H PRN PRN Reason: SBP >170 Last Admin: 11/13/16 03:21 Dose: 10 mg Micafungin Sodium 100 mg/ (Sodium Chloride) 100 mls @ 100 mls/hr IV DAILY [facility] PRN Reason: Protocol Stop: 11/18/16 11:00 Last Admin: 11/14/16 14:06 Dose: 100 mls/hr Hydromorphone HCl (Dilaudid-Hp 1 Mg/Ml Holter Technician) 25 mls @ 0.5 mls/hr IV PRN PRN; Protocol PRN Reason: CYBER SECURITY ANALYST PER MD ORDER Last Admin: 11/14/16 02:18 Dose: 0.5 mls/hr Potassium Chloride 30 meq/ (Dextrose) 1,015 mls @ 60 mls/hr IV .[id number] [facility] Last Admin: 11/14/16 08:00 Dose: 60 mls/hr Cefepime HCl (Maxipime 2gm) 2 gm in 100 mls @ 100 mls/hr IVPB Q12 [facility] PRN Reason: Protocol Stop: 11/21/16 10:01 Last Admin: 11/14/16 13:03 Dose: 100 mls/hr Daptomycin 440 mg/ Sodium (Chloride) 100 mls @ 200 mls/hr IV Q24H [facility] Stop: 11/28/16 09:16 Last Admin: 11/14/16 14:48 Dose: 200 mls/hr Metoprolol Tartrate (Lopressor) 5 mg IVP Q6H PRN PRN Reason: Sustained HR > 130 Last Admin: 10/31/16 00:12 Dose: 5 mg Multi-Ingredient Ointment (Hydrophor Oint) 0 gm TOP Q6H [facility] Last Admin: 11/14/16 18:00 Dose: Not Given Ondansetron HCl (Zofran Inj) 4 mg IVP Q4H PRN PRN Reason: Nausea/Vomiting Last Admin: 11/11/16 07:31 Dose: 4 mg Pantoprazole Sodium (Protonix Inj) 40 mg IVP Q12 [facility] Last Admin: 11/14/16 10:52 Dose: 40 mg Petrolatum (Desitin Maximum Strength Topical 40% Oint) 1 gm TOP Q4H PRN PRN Reason: Rash Last Admin: 10/23/16 22:39 Dose: 1 applic Propranolol HCl (Inderal La) 120 mg PO DAILY [facility] Last Admin: 11/14/16 10:52 Dose: 120 mg Sucralfate (Carafate Oral Susp) 1 gm PO BID [facility] Last Admin: 11/14/16 17:58 Dose: Not Given Tobramycin Sulfate (Tobrex 0.3% Oph Soln) 1 drop OU QID [facility] Last Admin: 11/14/16 17:59 Dose: 1 drop Valganciclovir (Valcyte) 900 mg PO DAILY [facility] Last Admin: 11/14/16 11:09 Dose: Not Given - Labs Labs: 11/14/16 15:30 11/14/16 15:30 PT 14.6 Seconds (9.9-11.8) H 11/11/16 20:40 INR 1.35 (0.93-1.08) H 11/11/16 20:40 APTT 31.9 Seconds (23.7-30.8) H 11/11/16 20:40 - Constitutional Appears: Chronically Ill - Head Exam Head Exam: NORMAL INSPECTION - Eye Exam Eye Exam: Normal appearance - ENT Exam ENT Exam: Mucous Membranes Moist - Respiratory Exam Respiratory Exam: NORMAL BREATHING PATTERN - Cardiovascular Exam Cardiovascular Exam: REGULAR RHYTHM, +S1, +S2 - GI/Abdominal Exam GI & Abdominal Exam: Soft, Tenderness, Hyperactive Bowel Sounds - Extremities Exam Extremities Exam: Pedal Edema Assessment and Plan (1) Diarrhea Status: Acute (2) Renal failure Status: Acute (3) Abdominal pain Status: Acute (4) Colon tumor Status: Chronic (5) Hypoalbuminemia Status: Acute - Assessment and Plan (Free Text) Assessment: Assessment: (1) Diarrhea Assessment & Plan: PERSISTS, STENOTIC LESION, PERSISTENT GI BLEED, SEVERE ANEMIA TRANSFUSE NEEDED Status: Acute (2) Renal failure Assessment & Plan: LARGELY PRERENAL 2/2 HYPERCATABOLIC STATE Status: Acute (3) Abdominal pain Assessment & Plan: 2/2 COLONIC MASS, STENOTIC LESION Status: Acute (4) Colon tumor Assessment & Plan: STAGE IV, BONE METS Status: Chronic (5) Hypoalbuminemia Assessment & Plan: SEVERE MALNUTRITION, NOW WITH FUNGUS IN BLOOD, NO CHOICE BUT TO DISCONTINUE HYPERAL. WILL TAPER OFF, DECREASE TO 40 CC'S PER HOUR TODAY Status: Acute (6) GIB: severe anemia, con't management per GI/Hematology (7) OVERALL PROGNOSIS IS GRIM, STRONGLY RECOMMEND PALLIATIVE CARE ONLY (8) SEVERE HYPOKALEMIA: CONTINUE AGGRESSIVE K REPLACEMENT
[2016-11-15] MEDS: DiphenhydrAMINE 50 mg/ml Inj IVP PRN (01:09)
--- NOTE | 2016-11-15 07:33 | CP.PCM.PN ---
Subjective - Date & Time of Evaluation Date of Evaluation: 11/15/16 Time of Evaluation: 08:00 - Subjective Subjective: pt. seen and examined. I spoke to pt and family members several days ago. NO PLANS FOR THERAPY O verall condition precludes therapy for cancer Terminal supportive care addvised. Objective - Vital Signs/Intake and Output Vital Signs (last 24 hours): Temp Pulse Resp BP Pulse Ox 98.2 F 97 H 20 143/94 H 100 11/15/16 04:50 11/15/16 06:00 11/15/16 04:50 11/15/16 04:50 11/15/16 00:00 Intake and Output: 11/15/16 11/15/16 06:59 18:59 Intake Total 1870 Output Total 2700 Balance -830 - Medications Medications: Current Medications Acetaminophen (Tylenol 650 Mg Supp) 650 mg RC Q4H PRN PRN Reason: Fever >100.4 F Last Admin: 11/01/16 21:18 Dose: 650 mg Bismuth Subsalicylate (Pepto-Bismol) 262 mg PO BID [facility] Last Admin: 11/14/16 17:59 Dose: Not Given Collagenase (Santyl) 1 gm TOP BID [facility] Last Admin: 11/14/16 17:59 Dose: 1 applic Al Hydrox/Mg Hydrox/Simethicone 30 ml/Diphenhydramine HCl 75 mg/Lidocaine 30 ml 0 ml PO Q2H PRN PRN Reason: Mouth/Throat Pain Last Admin: 11/07/16 09:00 Dose: 15 ml Diphenhydramine HCl (Benadryl) 25 mg IVP Q4H PRN PRN Reason: Allergy symptoms Last Admin: 11/15/16 01:09 Dose: 25 mg Ergocalciferol (Drisdol 50,000 Intl Units Cap) 1 cap PO Q7D [facility] Last Admin: 11/12/16 15:18 Dose: Not Given Furosemide (Lasix) 20 mg IVP Q12 [facility] Last Admin: 11/14/16 21:14 Dose: 20 mg Home Med (Home Med) 1 unit PO Q12H PRN PRN Reason: Inflammation Last Admin: 10/18/16 11:03 Dose: 1 unit Hydralazine HCl (Apresoline) 10 mg PO Q6H PRN PRN Reason: SBP >170 Last Admin: 11/13/16 03:21 Dose: 10 mg Micafungin Sodium 100 mg/ (Sodium Chloride) 100 mls @ 100 mls/hr IV DAILY [facility] PRN Reason: Protocol Stop: 11/18/16 11:00 Last Admin: 11/14/16 14:06 Dose: 100 mls/hr Hydromorphone HCl (Dilaudid-Hp 1 Mg/Ml Birthing Nurse) 25 mls @ 0.5 mls/hr IV PRN PRN; Protocol PRN Reason: CORN BREEDER PER MD ORDER Last Admin: 11/14/16 02:18 Dose: 0.5 mls/hr Potassium Chloride 30 meq/ (Dextrose) 1,015 mls @ 60 mls/hr IV .[id number] [facility] Last Admin: 11/14/16 08:00 Dose: 60 mls/hr Cefepime HCl (Maxipime 2gm) 2 gm in 100 mls @ 100 mls/hr IVPB Q12 [facility] PRN Reason: Protocol Stop: 11/21/16 10:01 Last Admin: 11/14/16 21:29 Dose: 100 mls/hr Daptomycin 440 mg/ Sodium (Chloride) 100 mls @ 200 mls/hr IV Q24H [facility] Stop: 11/28/16 09:16 Last Admin: 11/14/16 14:48 Dose: 200 mls/hr Metoprolol Tartrate (Lopressor) 5 mg IVP Q6H PRN PRN Reason: Sustained HR > 130 Last Admin: 10/31/16 00:12 Dose: 5 mg Multi-Ingredient Ointment (Hydrophor Oint) 0 gm TOP Q6H [facility] Last Admin: 11/14/16 21:17 Dose: 1 applic Ondansetron HCl (Zofran Inj) 4 mg IVP Q4H PRN PRN Reason: Nausea/Vomiting Last Admin: 11/11/16 07:31 Dose: 4 mg Pantoprazole Sodium (Protonix Inj) 40 mg IVP Q12 [facility] Last Admin: 11/14/16 21:15 Dose: 40 mg Petrolatum (Desitin Maximum Strength Topical 40% Oint) 1 gm TOP Q4H PRN PRN Reason: Rash Last Admin: 10/23/16 22:39 Dose: 1 applic Propranolol HCl (Inderal La) 120 mg PO DAILY [facility] Last Admin: 11/14/16 10:52 Dose: 120 mg Sucralfate (Carafate Oral Susp) 1 gm PO BID [facility] Last Admin: 11/14/16 17:58 Dose: Not Given Tobramycin Sulfate (Tobrex 0.3% [facility] Soln) 1 drop OU QID [facility] Last Admin: 11/14/16 21:16 Dose: 1 drop Valganciclovir (Valcyte) 900 mg PO DAILY [facility] Last Admin: 11/14/16 11:09 Dose: Not Given - Labs Labs: 11/14/16 15:30 11/14/16 15:30 PT 14.6 Seconds (9.9-11.8) H 11/11/16 20:40 INR 1.35 (0.93-1.08) H 11/11/16 20:40 APTT 31.9 Seconds (23.7-30.8) H 11/11/16 20:40
--- NOTE | 2016-11-15 07:46 | CP.PCM.PN ---
Subjective - Date & Time of Evaluation Date of Evaluation: 11/15/16 Time of Evaluation: 07:41 - Subjective Subjective: PGY [address] Jeffers Patient seen and examined this morning. No acute events over night. Patient stated, "I am feeling better. I have more energy." She states she had one episode of diarrhea yesterday with a large amount of blood present. She is tolerating her diet. Patient states she is currently in no pain and has been trying to use her SEATING UPHOLSTERER less. Patient complains of lower abdominal pain with movement. Objective - Vital Signs/Intake and Output Vital Signs (last 24 hours): Temp Pulse Resp BP Pulse Ox 98.2 F 97 H 20 143/94 H 100 11/15/16 04:50 11/15/16 06:00 11/15/16 04:50 11/15/16 04:50 11/15/16 00:00 Intake and Output: 11/15/16 11/15/16 06:59 18:59 Intake Total 1870 Output Total 2700 Balance -830 - Medications Medications: Current Medications Acetaminophen (Tylenol 650 Mg Supp) 650 mg RC Q4H PRN PRN Reason: Fever >100.4 F Last Admin: 11/01/16 21:18 Dose: 650 mg Bismuth Subsalicylate (Pepto-Bismol) 262 mg PO BID [facility] Last Admin: 11/14/16 17:59 Dose: Not Given Collagenase (Santyl) 1 gm TOP BID [facility] Last Admin: 11/14/16 17:59 Dose: 1 applic Al Hydrox/Mg Hydrox/Simethicone 30 ml/Diphenhydramine HCl 75 mg/Lidocaine 30 ml 0 ml PO Q2H PRN PRN Reason: Mouth/Throat Pain Last Admin: 11/07/16 09:00 Dose: 15 ml Diphenhydramine HCl (Benadryl) 25 mg IVP Q4H PRN PRN Reason: Allergy symptoms Last Admin: 11/15/16 01:09 Dose: 25 mg Ergocalciferol (Drisdol 50,000 Intl Units Cap) 1 cap PO Q7D [facility] Last Admin: 11/12/16 15:18 Dose: Not Given Furosemide (Lasix) 20 mg IVP Q12 [facility] Last Admin: 11/14/16 21:14 Dose: 20 mg Home Med (Home Med) 1 unit PO Q12H PRN PRN Reason: Inflammation Last Admin: 10/18/16 11:03 Dose: 1 unit Hydralazine HCl (Apresoline) 10 mg PO Q6H PRN PRN Reason: SBP >170 Last Admin: 11/13/16 03:21 Dose: 10 mg Micafungin Sodium 100 mg/ (Sodium Chloride) 100 mls @ 100 mls/hr IV DAILY [facility] PRN Reason: Protocol Stop: 11/18/16 11:00 Last Admin: 11/14/16 14:06 Dose: 100 mls/hr Hydromorphone HCl (Dilaudid-Hp 1 Mg/Ml Squirrel Man) 25 mls @ 0.5 mls/hr IV PRN PRN; Protocol PRN Reason: SEATING UPHOLSTERER PER MD ORDER Last Admin: 11/14/16 02:18 Dose: 0.5 mls/hr Potassium Chloride 30 meq/ (Dextrose) 1,015 mls @ 60 mls/hr IV .[id number] [facility] Last Admin: 11/14/16 08:00 Dose: 60 mls/hr Cefepime HCl (Maxipime 2gm) 2 gm in 100 mls @ 100 mls/hr IVPB Q12 [facility] PRN Reason: Protocol Stop: 11/21/16 10:01 Last Admin: 11/14/16 21:29 Dose: 100 mls/hr Daptomycin 440 mg/ Sodium (Chloride) 100 mls @ 200 mls/hr IV Q24H [facility] Stop: 11/28/16 09:16 Last Admin: 11/14/16 14:48 Dose: 200 mls/hr Metoprolol Tartrate (Lopressor) 5 mg IVP Q6H PRN PRN Reason: Sustained HR > 130 Last Admin: 10/31/16 00:12 Dose: 5 mg Multi-Ingredient Ointment (Hydrophor Oint) 0 gm TOP Q6H [facility] Last Admin: 11/14/16 21:17 Dose: 1 applic Ondansetron HCl (Zofran Inj) 4 mg IVP Q4H PRN PRN Reason: Nausea/Vomiting Last Admin: 11/11/16 07:31 Dose: 4 mg Pantoprazole Sodium (Protonix Inj) 40 mg IVP Q12 [facility] Last Admin: 11/14/16 21:15 Dose: 40 mg Petrolatum (Desitin Maximum Strength Topical 40% Oint) 1 gm TOP Q4H PRN PRN Reason: Rash Last Admin: 10/23/16 22:39 Dose: 1 applic Propranolol HCl (Inderal La) 120 mg PO DAILY [facility] Last Admin: 11/14/16 10:52 Dose: 120 mg Sucralfate (Carafate Oral Susp) 1 gm PO BID [facility] Last Admin: 11/14/16 17:58 Dose: Not Given Tobramycin Sulfate (Tobrex 0.3% Ophth Soln) 1 drop OU QID [facility] Last Admin: 11/14/16 21:16 Dose: 1 drop Valganciclovir (Valcyte) 900 mg PO DAILY [facility] Last Admin: 11/14/16 11:09 Dose: Not Given - Labs Labs: 11/14/16 15:30 11/14/16 15:30 PT 14.6 Seconds (9.9-11.8) H 11/11/16 20:40 INR 1.35 (0.93-1.08) H 11/11/16 20:40 APTT 31.9 Seconds (23.7-30.8) H 11/11/16 20:40 - Constitutional Appears: Non-toxic - Head Exam Head Exam: ATRAUMATIC, NORMOCEPHALIC - Eye Exam Eye Exam: EOMI - ENT Exam ENT Exam: Mucous Membranes Moist - Respiratory Exam Respiratory Exam: Clear to Ausculation Bilateral, NORMAL BREATHING PATTERN - Cardiovascular Exam Cardiovascular Exam: REGULAR RHYTHM, +S1, +S2 - GI/Abdominal Exam GI & Abdominal Exam: Soft, Tenderness, Normal Bowel Sounds - Extremities Exam Extremities Exam: Normal Inspection - Psychiatric Exam Psychiatric exam: Normal Affect, Normal Mood - Skin Skin Exam: Dry, Intact, Normal Color, Warm Assessment and Plan - Assessment and Plan (Free Text) Assessment: 61 F with GI bleed and sacral wound. Plan: Continue wound care management Continue to monitor H/H's - am labs pending Monitor PICC site for signs of infection Monitor Port removal site for signs of infection Dereje London PGY 1
[2016-11-15 07:55] LABS: ALB/GLOB RATIO 0.7 (1.1-1.8); ALBUMIN 1.8 g/dL (3.0-4.8); ALT/SGPT 20 U/L (7-56); AST/SGOT 12 U/L (15-39); BLOOD UREA NITROGEN 37 mg/dL (7-21); CALCIUM 7.6 mg/dL (8.4-10.5); GFR AFRICAN-AMERICAN > 60; GFR NON-AFRICAN AMERICAN > 60; MAGNESIUM 1.6 mg/dL (1.7-2.2)
[2016-11-15 08:09] LABS: BASO # 0.01 K/mm3 (0.0-2.0); BASO % 0.2 % (0.0-3.0); EOS # 0.2 (0.0-0.7); EOS % 5.2 % (1.5-5.0); GRAN # 3.43 (1.4-6.5); GRAN % 74.1 % (50.0-68.0); HEMOGLOBIN 8.6 gm/dL (12.0-16.0); LYMPH # 0.6 (1.2-3.4); LYMPH % 12.3 % (22.0-35.0); MEAN CELL VOLUME 88.9 fL (80.0-105.0); MEAN CORPUSCULAR HEMOGLOBIN 29.9 pg (25.0-35.0); MEAN CORPUSCULAR HGB CONC 33.6 g/dl (31.0-37.0); MEAN PLATELET VOLUME 10.7 fl (7.0-11.0); MONO # 0.4 (0.1-0.6); MONO % 8.2 % (1.0-6.0); PLATELET COUNT 45 10^3/uL (120.0-450.0); RBC 2.88 10^6/uL (3.5-6.1); RED CELL DISTRIBUTION WIDTH 18.6 % (11.5-14.5); WHITE BLOOD COUNT 4.6 10^3/ul (4.5-11.0)
--- NOTE | 2016-11-15 09:02 | CP.PCM.PN ---
<Cassie Arcos - Last Filed: 11/15/16 10:58> Subjective - Date & Time of Evaluation Date of Evaluation: 11/15/16 Time of Evaluation: 08:57 - Subjective Subjective: PGY-[address] Hendricks 2-3 episodes of slight maroon color BM per RN reports VSS No dizziness, CP, palpitation Abdominal pain 3/10 at baseline, intermittent, self-resolved; 8-9, stabbing at worse, lasting for a second. Objective - Vital Signs/Intake and Output Vital Signs (last 24 hours): Temp Pulse Resp BP Pulse Ox 98.2 F 89 20 143/94 H 100 11/15/16 08:18 11/15/16 08:18 11/15/16 08:18 11/15/16 08:18 11/15/16 08:18 Intake and Output: 11/15/16 11/15/16 06:59 18:59 Intake Total 1870 Output Total 2700 Balance -830 - Medications Medications: Current Medications Acetaminophen (Tylenol 650 Mg Supp) 650 mg RC Q4H PRN PRN Reason: Fever >100.4 F Last Admin: 11/01/16 21:18 Dose: 650 mg Bismuth Subsalicylate (Pepto-Bismol) 262 mg PO BID [facility] Last Admin: 11/14/16 17:59 Dose: Not Given Collagenase (Santyl) 1 gm TOP BID [facility] Last Admin: 11/14/16 17:59 Dose: 1 applic Al Hydrox/Mg Hydrox/Simethicone 30 ml/Diphenhydramine HCl 75 mg/Lidocaine 30 ml 0 ml PO Q2H PRN PRN Reason: Mouth/Throat Pain Last Admin: 11/07/16 09:00 Dose: 15 ml Diphenhydramine HCl (Benadryl) 25 mg IVP Q4H PRN PRN Reason: Allergy symptoms Last Admin: 11/15/16 01:09 Dose: 25 mg Ergocalciferol (Drisdol 50,000 Intl Units Cap) 1 cap PO Q7D [facility] Last Admin: 11/12/16 15:18 Dose: Not Given Furosemide (Lasix) 20 mg IVP Q12 [facility] Last Admin: 11/14/16 21:14 Dose: 20 mg Home Med (Home Med) 1 unit PO Q12H PRN PRN Reason: Inflammation Last Admin: 10/18/16 11:03 Dose: 1 unit Hydralazine HCl (Apresoline) 10 mg PO Q6H PRN PRN Reason: SBP >170 Last Admin: 11/13/16 03:21 Dose: 10 mg Micafungin Sodium 100 mg/ (Sodium Chloride) 100 mls @ 100 mls/hr IV DAILY [facility] PRN Reason: Protocol Stop: 11/18/16 11:00 Last Admin: 11/14/16 14:06 Dose: 100 mls/hr Hydromorphone HCl (Dilaudid-Hp 1 Mg/Ml Medical Technologist Chemistry) 25 mls @ 0.5 mls/hr IV PRN PRN; Protocol PRN Reason: EMISSIONS INSPECTOR PER MD ORDER Last Admin: 11/14/16 02:18 Dose: 0.5 mls/hr Potassium Chloride 30 meq/ (Dextrose) 1,015 mls @ 60 mls/hr IV .[id number] [facility] Last Admin: 11/14/16 08:00 Dose: 60 mls/hr Daptomycin 440 mg/ Sodium (Chloride) 100 mls @ 200 mls/hr IV Q24H [facility] Stop: 11/28/16 09:16 Last Admin: 11/14/16 14:48 Dose: 200 mls/hr Metoprolol Tartrate (Lopressor) 5 mg IVP Q6H PRN PRN Reason: Sustained HR > 130 Last Admin: 10/31/16 00:12 Dose: 5 mg Multi-Ingredient Ointment (Hydrophor Oint) 0 gm TOP Q6H [facility] Last Admin: 11/14/16 21:17 Dose: 1 applic Ondansetron HCl (Zofran Inj) 4 mg IVP Q4H PRN PRN Reason: Nausea/Vomiting Last Admin: 11/11/16 07:31 Dose: 4 mg Pantoprazole Sodium (Protonix Inj) 40 mg IVP Q12 [facility] Last Admin: 11/14/16 21:15 Dose: 40 mg Petrolatum (Desitin Maximum Strength Topical 40% Oint) 1 gm TOP Q4H PRN PRN Reason: Rash Last Admin: 10/23/16 22:39 Dose: 1 applic Propranolol HCl (Inderal La) 120 mg PO DAILY [facility] Last Admin: 11/14/16 10:52 Dose: 120 mg Sucralfate (Carafate Oral Susp) 1 gm PO BID [facility] Last Admin: 11/14/16 17:58 Dose: Not Given Tobramycin Sulfate (Tobrex 0.3% Ophth Soln) 1 drop OU QID [facility] Last Admin: 11/14/16 21:16 Dose: 1 drop Valganciclovir (Valcyte) 900 mg PO DAILY [facility] Last Admin: 11/14/16 11:09 Dose: Not Given - Labs Labs: 11/15/16 06:50 11/15/16 06:50 PT 14.6 Seconds (9.9-11.8) H 11/11/16 20:40 INR 1.35 (0.93-1.08) H 11/11/16 20:40 APTT 31.9 Seconds (23.7-30.8) H 11/11/16 20:40 - Constitutional Appears: No Acute Distress, Cachectic, Chronically Ill - Head Exam Head Exam: ATRAUMATIC, NORMAL INSPECTION, NORMOCEPHALIC - Eye Exam Eye Exam: EOMI, Normal appearance, PERRL. absent: Scleral icterus Pupil Exam: NORMAL ACCOMODATION - ENT Exam ENT Exam: Mucous Membranes Moist - Neck Exam Neck Exam: absent: Lymphadenopathy - Respiratory Exam Respiratory Exam: Clear to Ausculation Bilateral. absent: Rales, Rhonchi, Wheezes - Cardiovascular Exam Cardiovascular Exam: REGULAR RHYTHM, +S1, +S2, Murmur - GI/Abdominal Exam GI & Abdominal Exam: Soft, Tenderness (LUQ, RUQ, mild tenderness on palpation), Normal Bowel Sounds. absent: Rigid - Extremities Exam Extremities Exam: Normal Capillary Refill, Pedal Edema (1+ b/l). absent: Calf Tenderness, Joint Swelling - Neurological Exam Neurological Exam: Alert, Awake, Oriented x3 - Psychiatric Exam Psychiatric exam: Normal Affect, Normal Mood - Skin Skin Exam: Dry, Warm Additional comments: pale Assessment and Plan - Assessment and Plan (Free Text) Plan: Ms Sherie Gibson is a 61 year old female with PMHx stage 4 colorectal cancer S/ P colectomy in 2014 with stenosis of sigmoid colon and esophageal ulceration of unclear etiology colon cancer stage 4 and Hx Cauda Equina syndrome. She was hospitalized on 10/09 for watery diarrhea with neutropenia. This hospitalization was complicated by (1) neutropenia sepsis due to bacteremia and fungemia, repeat culture from port-a-cath positive for nirmal albicans, port-a-cath removed on 11/12/16. (2) Now mucositis with GI bleed (hematochesia/maroon stool) requiring transfusion. Plan: Pt's on going blood loss is of eminent concern. Port top culture positive for cocci. Pending repeat blood culture on 11/10 and 11/11 nrgative thus far. If negative will revisit possible palliative colostomy. Revisit goal of care on 11/12. Pt states that she is not ready for palliative or comfort care. #Stage IV metastatic colorectal cancer - hold futher specific treatment for now due to complications - s/p Port-a-cath removal #GI bleed, Active, (upper and lower) - Hb rises only from 7.4 to 8.6 on 3u pRBC - Stricture at sigmoid colon from external pressure, with ulceration - Many ulcers on esophagus found on EGD, pathology negative - Continue CMV treatment, pt showing clinical improvement - Protonix IV BID - Downgrade to clear liquid diet per GI - Tapering TPN to 40, added clear ensure 3/day - Dietitan: under-nutritient - If Hb < 7, will transfuse anther unit of pRBC - Lasix, Lopressor for BP control; propranolol 1g bid to prevent upper GI bleed - Will transfuse FFP x 2 to correct clotting factors # thrombocytopenia - DIC workup negative #Gram Positve Bacteremia and Nirmal fungemia and CMV on upper GI ulcer - Daptomycin, micafungin, valganciclovir - NEW: Port removed on 11/12. Port-tip culture showed gram (+) cocci in pain, pending id and sensitivity ([facility] [phone], [id number]) - Repeat blood culture on 11/04 (+) nirmal - repeat blood cultre 11/10 and 11/11 negative thus far - (?) PICC change today #FEN - clear liquid - TPN d/c for bacteremia and fungemia - replete electrolytes - KCL 30 meq in D5W @ 60 - Pepto-Bismol; Drisdol 77704 IU weekly #Dispo - to be dertermined - prognosis guarded - consider rehab replacement at minimum - OOB to chair will not cause GI bleed. Increase pain coverage prior transfer and safety precaution. #Full code #Access - L PICC - mily s/r/d/w Dr. Hendricks <Kedar Hendricks P - Last Filed: 11/25/16 01:08> Objective - Vital Signs/Intake and Output Vital Signs (last 24 hours): Temp Pulse Resp BP Pulse Ox 97.1 F L 50 L 18 126/58 L 98 11/25/16 00:00 11/25/16 00:00 11/25/16 00:00 11/25/16 00:00 11/25/16 00:00 Intake and Output: 11/24/16 11/25/16 18:59 06:59 Intake Total 2709 425 Output Total 1980 Balance 729 425 - Medications Medications: Current Medications Acetaminophen (Tylenol 650 Mg Supp) 650 mg RC Q4H PRN PRN Reason: Fever >100.4 F Last Admin: 11/01/16 21:18 Dose: 650 mg Collagenase (Santyl) 1 gm TOP BID [facility] Last Admin: 11/24/16 10:43 Dose: 1 applic Diphenhydramine HCl (Benadryl) 50 mg IVP HS PRN PRN Reason: Insomnia Last Admin: 11/23/16 02:36 Dose: 50 mg Ergocalciferol (Drisdol 50,000 Intl Units Cap) 1 cap PO Q7D [facility] Last Admin: 11/19/16 18:04 Dose: Not Given Fentanyl (Duragesic) 1 patch TD Q72H [facility] Last Admin: 11/22/16 14:30 Dose: 1 patch Ferrous Sulfate (Feosol) 324 mg PO TID [facility] Last Admin: 11/24/16 17:15 Dose: Not Given Furosemide (Lasix) 20 mg IVP Q12 [facility] Last Admin: 11/24/16 23:15 Dose: 20 mg Home Med (Home Med) 1 unit PO Q12H PRN PRN Reason: Inflammation Last Admin: 10/18/16 11:03 Dose: 1 unit Hydromorphone HCl (Dilaudid) 1 mg IVP Q1H PRN PRN Reason: Pain, severe (8-10) Last Admin: 11/25/16 01:00 Dose: 1 mg Daptomycin 440 mg/ Sodium (Chloride) 100 mls @ 200 mls/hr IV Q24H [facility] Stop: 11/27/16 09:01 Last Admin: 11/24/16 19:08 Dose: 200 mls/hr Micafungin Sodium 100 mg/ (Sodium Chloride) 100 mls @ 100 mls/hr IV DAILY [facility] PRN Reason: Protocol Stop: 11/28/16 10:01 Last Admin: 11/24/16 10:35 Dose: 100 mls/hr Potassium Chloride 40 meq/ (Dextrose/Sodium Chloride) 1,020 mls @ 80 mls/hr IV .[id number] [facility] Last Admin: 11/24/16 05:49 Dose: 80 mls/hr Cefepime HCl (Maxipime 1gm) 1 gm in 100 mls @ 100 mls/hr IVPB Q12 [facility] PRN Reason: Protocol Last Admin: 11/24/16 23:16 Dose: 100 mls/hr Magnesium Oxide (Mag-Ox) 400 mg PO BID [facility] Last Admin: 11/24/16 17:16 Dose: Not Given Multi-Ingredient Ointment (Hydrophor Oint) 0 gm TOP Q6H PRN PRN Reason: Dry lip Multivitamins (Thera Tab) 1 tab PO 0800 [facility] Last Admin: 11/24/16 10:38 Dose: Not Given Ondansetron HCl (Zofran Inj) 4 mg IVP Q4H PRN PRN Reason: Nausea/Vomiting Last Admin: 11/24/16 00:05 Dose: 4 mg Pantoprazole Sodium (Protonix Inj) 40 mg IVP Q12 [facility] Last Admin: 11/24/16 23:16 Dose: 40 mg Petrolatum (Desitin Maximum Strength Topical 40% Oint) 1 gm TOP Q4H PRN PRN Reason: Rash Last Admin: 10/23/16 22:39 Dose: 1 applic Potassium Chloride (K-Dur 20 Meq Er Tab) 40 meq PO DAILY [facility] Last Admin: 11/24/16 10:39 Dose: Not Given Propranolol HCl (Inderal La) 120 mg PO DAILY [facility] Last Admin: 11/24/16 10:31 Dose: 120 mg Sucralfate (Carafate Oral Susp) 1 gm PO BID [facility] Last Admin: 11/24/16 19:09 Dose: Not Given - Labs Labs: 11/24/16 07:53 11/24/16 07:53 PT 13.1 Seconds (9.9-11.8) H 11/24/16 10:03 INR 1.21 (0.93-1.08) H 11/24/16 10:03 APTT 31.2 Seconds (23.7-30.8) H 11/24/16 10:03 Attending/Attestation - Attestation I have personally seen and examined this patient.: Yes I have fully participated in the care of the patient.: Yes I have reviewed all pertinent clinical information, including history, physical exam and plan: Yes
[2016-11-15] MEDS ORDERED: Potassium Chloride 40 mEq/30 ml LIQ UD PO ONE (09:16)
[2016-11-15 09:28] LABS: PLATELET COUNT MANUAL 52 K/mm3 (120-450)
[2016-11-15] MEDS ORDERED: Magnesium Sulfate 2 GM in Sodium Chloride 0.9% 100 ML IVPB ONE (09:33)
--- NOTE | 2016-11-15 09:42 | CP.PCM.PN ---
Subjective - Date & Time of Evaluation Date of Evaluation: 11/15/16 Time of Evaluation: 08:00 - Subjective Subjective: feels ok no palpitastion Objective - Vital Signs/Intake and Output Vital Signs (last 24 hours): Temp Pulse Resp BP Pulse Ox 98.2 F 89 20 143/94 H 100 11/15/16 08:18 11/15/16 08:18 11/15/16 08:18 11/15/16 08:18 11/15/16 08:18 Intake and Output: 11/15/16 11/15/16 06:59 18:59 Intake Total 1870 Output Total 2700 Balance -830 - Medications Medications: Current Medications Acetaminophen (Tylenol 650 Mg Supp) 650 mg RC Q4H PRN PRN Reason: Fever >100.4 F Last Admin: 11/01/16 21:18 Dose: 650 mg Bismuth Subsalicylate (Pepto-Bismol) 262 mg PO BID [facility] Last Admin: 11/14/16 17:59 Dose: Not Given Collagenase (Santyl) 1 gm TOP BID [facility] Last Admin: 11/14/16 17:59 Dose: 1 applic Al Hydrox/Mg Hydrox/Simethicone 30 ml/Diphenhydramine HCl 75 mg/Lidocaine 30 ml 0 ml PO Q2H PRN PRN Reason: Mouth/Throat Pain Last Admin: 11/07/16 09:00 Dose: 15 ml Diphenhydramine HCl (Benadryl) 25 mg IVP Q4H PRN PRN Reason: Allergy symptoms Last Admin: 11/15/16 01:09 Dose: 25 mg Ergocalciferol (Drisdol 50,000 Intl Units Cap) 1 cap PO Q7D [facility] Last Admin: 11/12/16 15:18 Dose: Not Given Furosemide (Lasix) 20 mg IVP Q12 [facility] Last Admin: 11/14/16 21:14 Dose: 20 mg Home Med (Home Med) 1 unit PO Q12H PRN PRN Reason: Inflammation Last Admin: 10/18/16 11:03 Dose: 1 unit Hydralazine HCl (Apresoline) 10 mg PO Q6H PRN PRN Reason: SBP >170 Last Admin: 11/13/16 03:21 Dose: 10 mg Micafungin Sodium 100 mg/ (Sodium Chloride) 100 mls @ 100 mls/hr IV DAILY [facility] PRN Reason: Protocol Stop: 11/18/16 11:00 Last Admin: 11/14/16 14:06 Dose: 100 mls/hr Hydromorphone HCl (Dilaudid-Hp 1 Mg/Ml Sap Basis) 25 mls @ 0.5 mls/hr IV PRN PRN; Protocol PRN Reason: WAITSTAFF PER MD ORDER Last Admin: 11/14/16 02:18 Dose: 0.5 mls/hr Potassium Chloride 30 meq/ (Dextrose) 1,015 mls @ 60 mls/hr IV .[id number] [facility] Last Admin: 11/14/16 08:00 Dose: 60 mls/hr Daptomycin 440 mg/ Sodium (Chloride) 100 mls @ 200 mls/hr IV Q24H [facility] Stop: 11/28/16 09:16 Last Admin: 11/14/16 14:48 Dose: 200 mls/hr Magnesium Sulfate 2 gm/ Sodium (Chloride) 104 mls @ 102 mls/hr IVPB ONCE ONE Stop: 11/15/16 10:34 Metoprolol Tartrate (Lopressor) 5 mg IVP Q6H PRN PRN Reason: Sustained HR > 130 Last Admin: 10/31/16 00:12 Dose: 5 mg Multi-Ingredient Ointment (Hydrophor Oint) 0 gm TOP Q6H [facility] Last Admin: 11/14/16 21:17 Dose: 1 applic Ondansetron HCl (Zofran Inj) 4 mg IVP Q4H PRN PRN Reason: Nausea/Vomiting Last Admin: 11/11/16 07:31 Dose: 4 mg Pantoprazole Sodium (Protonix Inj) 40 mg IVP Q12 [facility] Last Admin: 11/14/16 21:15 Dose: 40 mg Petrolatum (Desitin Maximum Strength Topical 40% Oint) 1 gm TOP Q4H PRN PRN Reason: Rash Last Admin: 10/23/16 22:39 Dose: 1 applic Potassium Chloride (K-Dur 20 Meq Er Tab) 40 meq PO ONCE ONE Stop: 11/15/16 13:01 Propranolol HCl (Inderal La) 120 mg PO DAILY [facility] Last Admin: 11/14/16 10:52 Dose: 120 mg Sucralfate (Carafate Oral Susp) 1 gm PO BID [facility] Last Admin: 11/14/16 17:58 Dose: Not Given Tobramycin Sulfate (Tobrex 0.3% Ophth Soln) 1 drop OU QID [facility] Last Admin: 11/14/16 21:16 Dose: 1 drop Valganciclovir (Valcyte) 900 mg PO DAILY [facility] Last Admin: 11/14/16 11:09 Dose: Not Given - Labs Labs: 11/15/16 06:50 11/15/16 06:50 PT 14.6 Seconds (9.9-11.8) H 11/11/16 20:40 INR 1.35 (0.93-1.08) H 11/11/16 20:40 APTT 31.9 Seconds (23.7-30.8) H 11/11/16 20:40 - Constitutional Appears: Non-toxic - Head Exam Head Exam: ATRAUMATIC - Eye Exam Eye Exam: Conjunctival injection - ENT Exam ENT Exam: Mucous Membranes Moist - Neck Exam Neck Exam: Full ROM - Respiratory Exam Respiratory Exam: Clear to Ausculation Bilateral - Cardiovascular Exam Cardiovascular Exam: REGULAR RHYTHM - Extremities Exam Additional comments: Anasarca Assessment and Plan - Assessment and Plan (Free Text) Assessment: 61 year old female with ca colon with mets Anemia throbocytopenia protein caolre malnutriotion s tach ... multifactorial.. improved Plan: Continue inderal incresed nutritional support defitite plan for ca colon?? will foloow.
[2016-11-15] MEDS: HYDROmorphone 1 mg/ml PCA 25 ML IV PRN (09:50)
[2016-11-15] MEDS: Propranolol 60 mg ER Cap PO SCH (09:53)
[2016-11-15] MEDS: Sucralfate 1 gm/10 ml Oral Susp UD PO SCH ×2 (09:53→18:13)
[2016-11-15] MEDS: Petrolatum-Mineral Oil Oint (100gm) TOP SCH ×2 (10:03→15:20)
[2016-11-15] MEDS: Bismuth Subsalicylate 262 mg/15 ml Sus (240 ml) PO SCH ×2 (10:04→18:13)
[2016-11-15] MEDS: Collagenase 250 Units/gm Ointment(30 gm) TOP SCH ×2 (10:04→18:14)
--- NOTE | 2016-11-15 10:06 | CP.PCM.PN ---
<Yoana Osei - Last Filed: 11/15/16 10:05> Subjective - Date & Time of Evaluation Date of Evaluation: 11/15/16 Time of Evaluation: 08:00 - Subjective Subjective: Seen and examined at bedside this am. Chart reviewed. Had 1 bloody BM last night with clots, s/o 2 units of PRBC, and 1 u nit of platelets. Patient is awake and alert, says she was able to tolerated 3 clear ensure, feel ok today. She is awake and alert, uses TRANSITIONAL LIVING SPECIALIST pump prn with relief. Culture cath tip (+) Susy Albicans. Objective - Vital Signs/Intake and Output Vital Signs (last 24 hours): Temp Pulse Resp BP Pulse Ox 98.2 F 89 20 143/94 H 100 11/15/16 08:18 11/15/16 08:18 11/15/16 08:18 11/15/16 09:54 11/15/16 08:18 Intake and Output: 11/15/16 11/15/16 06:59 18:59 Intake Total 1870 Output Total 2700 Balance -830 - Medications Medications: Current Medications Acetaminophen (Tylenol 650 Mg Supp) 650 mg RC Q4H PRN PRN Reason: Fever >100.4 F Last Admin: 11/01/16 21:18 Dose: 650 mg Bismuth Subsalicylate (Pepto-Bismol) 262 mg PO BID [facility] Last Admin: 11/14/16 17:59 Dose: Not Given Collagenase (Santyl) 1 gm TOP BID [facility] Last Admin: 11/14/16 17:59 Dose: 1 applic Al Hydrox/Mg Hydrox/Simethicone 30 ml/Diphenhydramine HCl 75 mg/Lidocaine 30 ml 0 ml PO Q2H PRN PRN Reason: Mouth/Throat Pain Last Admin: 11/07/16 09:00 Dose: 15 ml Diphenhydramine HCl (Benadryl) 25 mg IVP Q4H PRN PRN Reason: Allergy symptoms Last Admin: 11/15/16 01:09 Dose: 25 mg Ergocalciferol (Drisdol 50,000 Intl Units Cap) 1 cap PO Q7D [facility] Last Admin: 11/12/16 15:18 Dose: Not Given Furosemide (Lasix) 20 mg IVP Q12 [facility] Last Admin: 11/15/16 09:54 Dose: 20 mg Home Med (Home Med) 1 unit PO Q12H PRN PRN Reason: Inflammation Last Admin: 10/18/16 11:03 Dose: 1 unit Hydralazine HCl (Apresoline) 10 mg PO Q6H PRN PRN Reason: SBP >170 Last Admin: 11/13/16 03:21 Dose: 10 mg Micafungin Sodium 100 mg/ (Sodium Chloride) 100 mls @ 100 mls/hr IV DAILY [facility] PRN Reason: Protocol Stop: 11/18/16 11:00 Last Admin: 11/14/16 14:06 Dose: 100 mls/hr Hydromorphone HCl (Dilaudid-Hp 1 Mg/Ml Tumbler Dyeing Machine Operator) 25 mls @ 0.5 mls/hr IV PRN PRN; Protocol PRN Reason: TRANSITIONAL LIVING SPECIALIST PER MD ORDER Last Admin: 11/15/16 09:50 Dose: 0.5 mls/hr Potassium Chloride 30 meq/ (Dextrose) 1,015 mls @ 60 mls/hr IV .[id number] [facility] Last Admin: 11/14/16 08:00 Dose: 60 mls/hr Daptomycin 440 mg/ Sodium (Chloride) 100 mls @ 200 mls/hr IV Q24H [facility] Stop: 11/28/16 09:16 Last Admin: 11/14/16 14:48 Dose: 200 mls/hr Magnesium Sulfate 2 gm/ Sodium (Chloride) 104 mls @ 102 mls/hr IVPB ONCE ONE Stop: 11/15/16 10:34 Metoprolol Tartrate (Lopressor) 5 mg IVP Q6H PRN PRN Reason: Sustained HR > 130 Last Admin: 10/31/16 00:12 Dose: 5 mg Multi-Ingredient Ointment (Hydrophor Oint) 0 gm TOP Q6H [facility] Last Admin: 11/14/16 21:17 Dose: 1 applic Ondansetron HCl (Zofran Inj) 4 mg IVP Q4H PRN PRN Reason: Nausea/Vomiting Last Admin: 11/11/16 07:31 Dose: 4 mg Pantoprazole Sodium (Protonix Inj) 40 mg IVP Q12 [facility] Last Admin: 11/15/16 09:53 Dose: 40 mg Petrolatum (Desitin Maximum Strength Topical 40% Oint) 1 gm TOP Q4H PRN PRN Reason: Rash Last Admin: 10/23/16 22:39 Dose: 1 applic Potassium Chloride (K-Dur 20 Meq Er Tab) 40 meq PO ONCE ONE Stop: 11/15/16 13:01 Propranolol HCl (Inderal La) 120 mg PO DAILY [facility] Last Admin: 11/15/16 09:53 Dose: 120 mg Sucralfate (Carafate Oral Susp) 1 gm PO BID [facility] Last Admin: 11/15/16 09:53 Dose: 1 gm Tobramycin Sulfate (Tobrex 0.3% Oph Soln) 1 drop OU QID [facility] Last Admin: 11/14/16 21:16 Dose: 1 drop Valganciclovir (Valcyte) 900 mg PO DAILY [facility] Last Admin: 11/14/16 11:09 Dose: Not Given - Labs Labs: 11/15/16 06:50 11/15/16 06:50 PT 14.6 Seconds (9.9-11.8) H 11/11/16 20:40 INR 1.35 (0.93-1.08) H 11/11/16 20:40 APTT 31.9 Seconds (23.7-30.8) H 11/11/16 20:40 - Constitutional Appears: No Acute Distress - Head Exam Head Exam: NORMOCEPHALIC - Eye Exam Eye Exam: Normal appearance. absent: Scleral icterus - ENT Exam ENT Exam: Mucous Membranes Moist - Neck Exam Neck Exam: Normal Inspection - Respiratory Exam Respiratory Exam: Decreased Breath Sounds, NORMAL BREATHING PATTERN. absent: Rales, Wheezes, Respiratory Distress - Cardiovascular Exam Cardiovascular Exam: +S1, +S2 - GI/Abdominal Exam GI & Abdominal Exam: Soft, Tenderness, Normal Bowel Sounds. absent: Guarding, Rebound - Extremities Exam Extremities Exam: absent: Calf Tenderness, Pedal Edema ((+) SCD boots, CHERISE PICC line) - Neurological Exam Neurological Exam: Alert, Awake, Oriented x3 - Skin Skin Exam: Dry, Warm Assessment and Plan - Assessment and Plan (Free Text) Assessment: ASSESSMENT: Stage IV colon cancer with metastasis to the bone Severe anemia, status post multiple blood transfusions Thrombocytopenia GIB,S/P flex sigmoidoscopy,still showed the stricture in the sigmoid colon Acute renal failure Esophagitis with ulcerations, BX negative for CMV Bacteremia, Fungemia with Susy Diarrhea, s/p sandostatin/ Codeine Decubitus ulcers PLAN: PPI clear liquid only, pls do not advance unless cleared by GI Carafate on TRANSITIONAL LIVING SPECIALIST pump monitor h/h, transfuse as needed on IV antibiotics as per ID, Vancyclovir on hold as per ID, bX negative for CMV as per oncology, surgery Seen and case discussed with Dr. Null <Tong Null V - Last Filed: 11/16/16 00:28> Objective - Vital Signs/Intake and Output Vital Signs (last 24 hours): Temp Pulse Resp BP Pulse Ox 97.8 F 92 H 20 145/92 H 97 11/15/16 16:00 11/15/16 18:00 11/15/16 16:00 11/15/16 21:35 11/15/16 16:00 Intake and Output: 11/15/16 11/16/16 18:59 06:59 Intake Total 360 180 Output Total 1500 3200 Balance -1140 -3020 - Medications Medications: Current Medications Acetaminophen (Tylenol 650 Mg Supp) 650 mg RC Q4H PRN PRN Reason: Fever >100.4 F Last Admin: 11/01/16 21:18 Dose: 650 mg Bismuth Subsalicylate (Pepto-Bismol) 262 mg PO BID [facility] Last Admin: 11/15/16 18:13 Dose: Not Given Collagenase (Santyl) 1 gm TOP BID [facility] Last Admin: 11/15/16 18:14 Dose: Not Given Al Hydrox/Mg Hydrox/Simethicone 30 ml/Diphenhydramine HCl 75 mg/Lidocaine 30 ml 0 ml PO Q2H PRN PRN Reason: Mouth/Throat Pain Last Admin: 11/07/16 09:00 Dose: 15 ml Diphenhydramine HCl (Benadryl) 25 mg IVP Q4H PRN PRN Reason: Allergy symptoms Last Admin: 11/15/16 01:09 Dose: 25 mg Ergocalciferol (Drisdol 50,000 Intl Units Cap) 1 cap PO Q7D [facility] Last Admin: 11/12/16 15:18 Dose: Not Given Furosemide (Lasix) 20 mg IVP Q12 [facility] Last Admin: 11/15/16 21:35 Dose: 20 mg Home Med (Home Med) 1 unit PO Q12H PRN PRN Reason: Inflammation Last Admin: 10/18/16 11:03 Dose: 1 unit Hydralazine HCl (Apresoline) 10 mg PO Q6H PRN PRN Reason: SBP >170 Last Admin: 11/13/16 03:21 Dose: 10 mg Micafungin Sodium 100 mg/ (Sodium Chloride) 100 mls @ 100 mls/hr IV DAILY [facility] PRN Reason: Protocol Stop: 11/18/16 11:00 Last Admin: 11/15/16 11:13 Dose: 100 mls/hr Hydromorphone HCl (Dilaudid-Hp 1 Mg/Ml Tumbler Dyeing Machine Operator) 25 mls @ 0.5 mls/hr IV PRN PRN; Protocol PRN Reason: TRANSITIONAL LIVING SPECIALIST PER MD ORDER Last Admin: 11/15/16 09:50 Dose: 0.5 mls/hr Potassium Chloride 30 meq/ (Dextrose) 1,015 mls @ 60 mls/hr IV .[id number] [facility] Last Admin: 11/15/16 15:21 Dose: 60 mls/hr Daptomycin 440 mg/ Sodium (Chloride) 100 mls @ 200 mls/hr IV Q24H [facility] Stop: 11/28/16 09:16 Last Admin: 11/15/16 12:02 Dose: 200 mls/hr Metoprolol Tartrate (Lopressor) 5 mg IVP Q6H PRN PRN Reason: Sustained HR > 130 Last Admin: 10/31/16 00:12 Dose: 5 mg Multi-Ingredient Ointment (Hydrophor Oint) 0 gm TOP Q6H [facility] Last Admin: 11/15/16 15:20 Dose: Not Given Ondansetron HCl (Zofran Inj) 4 mg IVP Q4H PRN PRN Reason: Nausea/Vomiting Last Admin: 11/11/16 07:31 Dose: 4 mg Pantoprazole Sodium (Protonix Inj) 40 mg IVP Q12 [facility] Last Admin: 11/15/16 21:36 Dose: 40 mg Petrolatum (Desitin Maximum Strength Topical 40% Oint) 1 gm TOP Q4H PRN PRN Reason: Rash Last Admin: 10/23/16 22:39 Dose: 1 applic Propranolol HCl (Inderal La) 120 mg PO DAILY [facility] Last Admin: 11/15/16 09:53 Dose: 120 mg Sucralfate (Carafate Oral Susp) 1 gm PO BID [facility] Last Admin: 11/15/16 18:13 Dose: Not Given Tobramycin Sulfate (Tobrex 0.3% Ophth Soln) 1 drop OU QID [facility] Last Admin: 11/15/16 18:14 Dose: Not Given Valganciclovir (Valcyte) 900 mg PO DAILY [facility] Last Admin: 11/14/16 11:09 Dose: Not Given - Labs Labs: 11/15/16 06:50 11/15/16 06:50 PT 14.6 Seconds (9.9-11.8) H 11/11/16 20:40 INR 1.35 (0.93-1.08) H 11/11/16 20:40 APTT 31.9 Seconds (23.7-30.8) H 11/11/16 20:40 Attending/Attestation - Attestation I have personally seen and examined this patient.: Yes I have fully participated in the care of the patient.: Yes I have reviewed all pertinent clinical information, including history, physical exam and plan: Yes Notes (Text): tthis patient was seen and evaluated earlier. The patient continues still intermittent episodes of dark blood per rectum .. Patient remains thrombocytopenic. Multiple units of pack and platelets transfusion. Patient remains on clear liquid diet. Fungemia status post removal of the port. Discussed with the surgeon regarding colostomy. Would consider endoscopic reevaluation to evaluate the source of bleeding prior to surgery . I did personally speak multiple family members patient and patient's mother at length. I will also discuss wi regarding endoscopy eval which obviously carry hig in view of anesthesia.. 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
--- NOTE | 2016-11-15 10:12 | CP.PCM.PN ---
Subjective - Date & Time of Evaluation Date of Evaluation: 11/15/16 Time of Evaluation: 08:30 - Subjective Subjective: Awake, alert Eating clear liquids Still with Rectal bleeding Objective - Vital Signs/Intake and Output Vital Signs (last 24 hours): Temp Pulse Resp BP Pulse Ox 98.2 F 89 20 143/94 H 100 11/15/16 08:18 11/15/16 08:18 11/15/16 08:18 11/15/16 09:54 11/15/16 08:18 Intake and Output: 11/15/16 11/15/16 06:59 18:59 Intake Total 1870 Output Total 2700 Balance -830 - Medications Medications: Current Medications Acetaminophen (Tylenol 650 Mg Supp) 650 mg RC Q4H PRN PRN Reason: Fever >100.4 F Last Admin: 11/01/16 21:18 Dose: 650 mg Bismuth Subsalicylate (Pepto-Bismol) 262 mg PO BID [facility] Last Admin: 11/15/16 10:04 Dose: Not Given Collagenase (Santyl) 1 gm TOP BID [facility] Last Admin: 11/15/16 10:04 Dose: Not Given Al Hydrox/Mg Hydrox/Simethicone 30 ml/Diphenhydramine HCl 75 mg/Lidocaine 30 ml 0 ml PO Q2H PRN PRN Reason: Mouth/Throat Pain Last Admin: 11/07/16 09:00 Dose: 15 ml Diphenhydramine HCl (Benadryl) 25 mg IVP Q4H PRN PRN Reason: Allergy symptoms Last Admin: 11/15/16 01:09 Dose: 25 mg Ergocalciferol (Drisdol 50,000 Intl Units Cap) 1 cap PO Q7D [facility] Last Admin: 11/12/16 15:18 Dose: Not Given Furosemide (Lasix) 20 mg IVP Q12 [facility] Last Admin: 11/15/16 09:54 Dose: 20 mg Home Med (Home Med) 1 unit PO Q12H PRN PRN Reason: Inflammation Last Admin: 10/18/16 11:03 Dose: 1 unit Hydralazine HCl (Apresoline) 10 mg PO Q6H PRN PRN Reason: SBP >170 Last Admin: 11/13/16 03:21 Dose: 10 mg Micafungin Sodium 100 mg/ (Sodium Chloride) 100 mls @ 100 mls/hr IV DAILY [facility] PRN Reason: Protocol Stop: 11/18/16 11:00 Last Admin: 11/14/16 14:06 Dose: 100 mls/hr Hydromorphone HCl (Dilaudid-Hp 1 Mg/Ml Front End Software Engineer) 25 mls @ 0.5 mls/hr IV PRN PRN; Protocol PRN Reason: GROCERY BAGGER PER MD ORDER Last Admin: 11/15/16 09:50 Dose: 0.5 mls/hr Potassium Chloride 30 meq/ (Dextrose) 1,015 mls @ 60 mls/hr IV .[id number] [facility] Last Admin: 11/14/16 08:00 Dose: 60 mls/hr Daptomycin 440 mg/ Sodium (Chloride) 100 mls @ 200 mls/hr IV Q24H [facility] Stop: 11/28/16 09:16 Last Admin: 11/14/16 14:48 Dose: 200 mls/hr Magnesium Sulfate 2 gm/ Sodium (Chloride) 104 mls @ 102 mls/hr IVPB ONCE ONE Stop: 11/15/16 10:34 Metoprolol Tartrate (Lopressor) 5 mg IVP Q6H PRN PRN Reason: Sustained HR > 130 Last Admin: 10/31/16 00:12 Dose: 5 mg Multi-Ingredient Ointment (Hydrophor Oint) 0 gm TOP Q6H [facility] Last Admin: 11/15/16 10:03 Dose: Not Given Ondansetron HCl (Zofran Inj) 4 mg IVP Q4H PRN PRN Reason: Nausea/Vomiting Last Admin: 11/11/16 07:31 Dose: 4 mg Pantoprazole Sodium (Protonix Inj) 40 mg IVP Q12 [facility] Last Admin: 11/15/16 09:53 Dose: 40 mg Petrolatum (Desitin Maximum Strength Topical 40% Oint) 1 gm TOP Q4H PRN PRN Reason: Rash Last Admin: 10/23/16 22:39 Dose: 1 applic Potassium Chloride (K-Dur 20 Meq Er Tab) 40 meq PO ONCE ONE Stop: 11/15/16 13:01 Propranolol HCl (Inderal La) 120 mg PO DAILY [facility] Last Admin: 11/15/16 09:53 Dose: 120 mg Sucralfate (Carafate Oral Susp) 1 gm PO BID [facility] Last Admin: 11/15/16 09:53 Dose: 1 gm Tobramycin Sulfate (Tobrex 0.3% Ophth Soln) 1 drop OU QID [facility] Last Admin: 11/14/16 21:16 Dose: 1 drop Valganciclovir (Valcyte) 900 mg PO DAILY [facility] Last Admin: 11/14/16 11:09 Dose: Not Given - Labs Labs: 11/15/16 06:50 11/15/16 06:50 PT 14.6 Seconds (9.9-11.8) H 11/11/16 20:40 INR 1.35 (0.93-1.08) H 11/11/16 20:40 APTT 31.9 Seconds (23.7-30.8) H 11/11/16 20:40 - Constitutional Appears: Chronically Ill - Head Exam Head Exam: ATRAUMATIC, NORMAL INSPECTION, NORMOCEPHALIC - Eye Exam Eye Exam: Normal appearance - ENT Exam ENT Exam: Mucous Membranes Moist - Respiratory Exam Respiratory Exam: Clear to Ausculation Bilateral - Cardiovascular Exam Cardiovascular Exam: REGULAR RHYTHM, +S1, +S2 - GI/Abdominal Exam GI & Abdominal Exam: Distended, Tenderness, Normal Bowel Sounds - Extremities Exam Extremities Exam: Pedal Edema Assessment and Plan (1) Diarrhea Status: Acute (2) Renal failure Status: Acute (3) Abdominal pain Status: Acute (4) Colon tumor Status: Chronic (5) Hypoalbuminemia Status: Acute - Assessment and Plan (Free Text) Assessment: (1) Diarrhea Assessment & Plan: PERSISTS, STENOTIC LESION, PERSISTENT GI BLEED, SEVERE ANEMIA TRANSFUSE NEEDED Status: Acute (2) Renal failure Assessment & Plan: LARGELY PRERENAL 2/2 HYPERCATABOLIC STATE Status: Acute (3) Abdominal pain Assessment & Plan: 2/2 COLONIC MASS, STENOTIC LESION Status: Acute (4) Colon tumor Assessment & Plan: STAGE IV, BONE METS Status: Chronic (5) Hypoalbuminemia Assessment & Plan: SEVERE MALNUTRITION, NOW WITH FUNGUS IN BLOOD, NO CHOICE BUT TO DISCONTINUE HYPERAL. WILL TAPER OFF, DECREASE TO 40 CC'S PER HOUR TODAY Status: Acute (6) GIB: severe anemia, con't management per GI/Hematology (7) OVERALL PROGNOSIS IS GRIM, STRONGLY RECOMMEND PALLIATIVE CARE ONLY (8) SEVERE HYPOKALEMIA: CONTINUE AGGRESSIVE K REPLACEMENT (9) Hypomagnesemia : replace
[2016-11-15] MEDS: Tobramycin 0.3% OPHT SOLN OU SCH ×3 (10:19→18:14)
--- NOTE | 2016-11-15 11:07 | CP.PCM.PN ---
Subjective - Date & Time of Evaluation Date of Evaluation: 11/15/16 Time of Evaluation: 09:00 - Subjective Subjective: Continues to feel weak, still not able to swallow well because of pain, no fevers overnight. Objective - Vital Signs/Intake and Output Vital Signs (last 24 hours): Temp Pulse Resp BP Pulse Ox 98.2 F 89 20 143/94 H 100 11/15/16 08:18 11/15/16 08:18 11/15/16 08:18 11/15/16 08:18 11/15/16 08:18 Intake and Output: 11/15/16 11/15/16 06:59 18:59 Intake Total 1870 Output Total 2700 Balance -830 - Medications Medications: Current Medications Acetaminophen (Tylenol 650 Mg Supp) 650 mg RC Q4H PRN PRN Reason: Fever >100.4 F Last Admin: 11/01/16 21:18 Dose: 650 mg Bismuth Subsalicylate (Pepto-Bismol) 262 mg PO BID [facility] Last Admin: 11/14/16 17:59 Dose: Not Given Collagenase (Santyl) 1 gm TOP BID [facility] Last Admin: 11/14/16 17:59 Dose: 1 applic Al Hydrox/Mg Hydrox/Simethicone 30 ml/Diphenhydramine HCl 75 mg/Lidocaine 30 ml 0 ml PO Q2H PRN PRN Reason: Mouth/Throat Pain Last Admin: 11/07/16 09:00 Dose: 15 ml Diphenhydramine HCl (Benadryl) 25 mg IVP Q4H PRN PRN Reason: Allergy symptoms Last Admin: 11/15/16 01:09 Dose: 25 mg Ergocalciferol (Drisdol 50,000 Intl Units Cap) 1 cap PO Q7D [facility] Last Admin: 11/12/16 15:18 Dose: Not Given Furosemide (Lasix) 20 mg IVP Q12 [facility] Last Admin: 11/14/16 21:14 Dose: 20 mg Home Med (Home Med) 1 unit PO Q12H PRN PRN Reason: Inflammation Last Admin: 10/18/16 11:03 Dose: 1 unit Hydralazine HCl (Apresoline) 10 mg PO Q6H PRN PRN Reason: SBP >170 Last Admin: 11/13/16 03:21 Dose: 10 mg Micafungin Sodium 100 mg/ (Sodium Chloride) 100 mls @ 100 mls/hr IV DAILY [facility] PRN Reason: Protocol Stop: 11/18/16 11:00 Last Admin: 11/14/16 14:06 Dose: 100 mls/hr Hydromorphone HCl (Dilaudid-Hp 1 Mg/Ml School Counsellor) 25 mls @ 0.5 mls/hr IV PRN PRN; Protocol PRN Reason: RECORD KEEPER PER MD ORDER Last Admin: 11/14/16 02:18 Dose: 0.5 mls/hr Potassium Chloride 30 meq/ (Dextrose) 1,015 mls @ 60 mls/hr IV .[id number] [facility] Last Admin: 11/14/16 08:00 Dose: 60 mls/hr Daptomycin 440 mg/ Sodium (Chloride) 100 mls @ 200 mls/hr IV Q24H [facility] Stop: 11/28/16 09:16 Last Admin: 11/14/16 14:48 Dose: 200 mls/hr Metoprolol Tartrate (Lopressor) 5 mg IVP Q6H PRN PRN Reason: Sustained HR > 130 Last Admin: 10/31/16 00:12 Dose: 5 mg Multi-Ingredient Ointment (Hydrophor Oint) 0 gm TOP Q6H [facility] Last Admin: 11/14/16 21:17 Dose: 1 applic Ondansetron HCl (Zofran Inj) 4 mg IVP Q4H PRN PRN Reason: Nausea/Vomiting Last Admin: 11/11/16 07:31 Dose: 4 mg Pantoprazole Sodium (Protonix Inj) 40 mg IVP Q12 [facility] Last Admin: 11/14/16 21:15 Dose: 40 mg Petrolatum (Desitin Maximum Strength Topical 40% Oint) 1 gm TOP Q4H PRN PRN Reason: Rash Last Admin: 10/23/16 22:39 Dose: 1 applic Propranolol HCl (Inderal La) 120 mg PO DAILY [facility] Last Admin: 11/14/16 10:52 Dose: 120 mg Sucralfate (Carafate Oral Susp) 1 gm PO BID [facility] Last Admin: 11/14/16 17:58 Dose: Not Given Tobramycin Sulfate (Tobrex 0.3% Oph Soln) 1 drop OU QID [facility] Last Admin: 11/14/16 21:16 Dose: 1 drop Valganciclovir (Valcyte) 900 mg PO DAILY [facility] Last Admin: 11/14/16 11:09 Dose: Not Given - Labs Labs: 11/15/16 06:50 11/15/16 06:50 PT 14.6 Seconds (9.9-11.8) H 11/11/16 20:40 INR 1.35 (0.93-1.08) H 11/11/16 20:40 APTT 31.9 Seconds (23.7-30.8) H 11/11/16 20:40 - Constitutional Appears: Chronically Ill - Head Exam Head Exam: NORMAL INSPECTION - Neck Exam Neck Exam: absent: Meningismus - Respiratory Exam Respiratory Exam: Decreased Breath Sounds - Cardiovascular Exam Cardiovascular Exam: +S1, +S2 - GI/Abdominal Exam GI & Abdominal Exam: Soft. absent: Tenderness - Extremities Exam Additional comments: left arm PICC line site clean and non-tender Assessment and Plan - Assessment and Plan (Free Text) Plan: Assessment sepsis due to C. 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
[2016-11-15] MEDS: Micafungin 100 MG in Sodium Chloride 0.9% 100 ML IV SCH (11:13)
[2016-11-15] MEDS ORDERED: Potassium Chloride 20 mEq ER Tab PO ONE (13:00)
[2016-11-16 05:56] LABS: ALB/GLOB RATIO 0.7 (1.1-1.8); ALT/SGPT 26 U/L (7-56); AST/SGOT 13 U/L (15-39); BLOOD UREA NITROGEN 23 mg/dL (7-21); CALCIUM 7.6 mg/dL (8.4-10.5); GFR AFRICAN-AMERICAN > 60; GFR NON-AFRICAN AMERICAN > 60; MAGNESIUM 1.5 mg/dL (1.7-2.2)
[2016-11-16 06:56] LABS: BASO # 0.01 K/mm3 (0.0-2.0); BASO % 0.2 % (0.0-3.0); EOS # 0.2 (0.0-0.7); EOS % 3.8 % (1.5-5.0); GRAN # 4.15 (1.4-6.5); GRAN % 78.7 % (50.0-68.0); LYMPH # 0.6 (1.2-3.4); LYMPH % 10.8 % (22.0-35.0); MEAN CELL VOLUME 89.5 fL (80.0-105.0); MEAN CORPUSCULAR HEMOGLOBIN 29.3 pg (25.0-35.0); MEAN CORPUSCULAR HGB CONC 32.8 g/dl (31.0-37.0); MONO # 0.3 (0.1-0.6); MONO % 6.5 % (1.0-6.0); RBC 2.66 10^6/uL (3.5-6.1); RED CELL DISTRIBUTION WIDTH 19.5 % (11.5-14.5); WHITE BLOOD COUNT 5.3 10^3/ul (4.5-11.0)
[2016-11-16 06:58] LABS: HEMOGLOBIN 7.8 gm/dL (12.0-16.0); PLATELET COUNT 42 10^3/uL (120.0-450.0)
[2016-11-16 07:00] LABS: PLATELET COUNT MANUAL 51 K/mm3 (120-450)
--- NOTE | 2016-11-16 07:41 | CP.PCM.PN ---
<Cassie Arcos - Last Filed: 11/16/16 19:25> Subjective - Date & Time of Evaluation Date of Evaluation: 11/16/16 Time of Evaluation: 07:39 - Subjective Subjective: PGY-[address] Hendricks Pt seen and examined. 3 moderated size maroon color stool, mucus/clot overnight. VSS No dizziness, CP, palpitation Abdominal pain 1-3/10 at baseline, intermittent, self-resolved; 8-9, stabbing at worse, lasting for a second. Pain controlled by LARYNGOLOGIST Objective - Vital Signs/Intake and Output Vital Signs (last 24 hours): Temp Pulse Resp BP Pulse Ox 97.8 F 82 20 145/92 H 97 11/15/16 16:00 11/16/16 05:30 11/15/16 16:00 11/15/16 21:35 11/15/16 16:00 Intake and Output: 11/16/16 11/16/16 06:59 18:59 Intake Total 1880 Output Total 4200 Balance -2320 - Medications Medications: Current Medications Acetaminophen (Tylenol 650 Mg Supp) 650 mg RC Q4H PRN PRN Reason: Fever >100.4 F Last Admin: 11/01/16 21:18 Dose: 650 mg Bismuth Subsalicylate (Pepto-Bismol) 262 mg PO BID [facility] Last Admin: 11/15/16 18:13 Dose: Not Given Collagenase (Santyl) 1 gm TOP BID [facility] Last Admin: 11/15/16 18:14 Dose: Not Given Al Hydrox/Mg Hydrox/Simethicone 30 ml/Diphenhydramine HCl 75 mg/Lidocaine 30 ml 0 ml PO Q2H PRN PRN Reason: Mouth/Throat Pain Last Admin: 11/07/16 09:00 Dose: 15 ml Diphenhydramine HCl (Benadryl) 25 mg IVP Q4H PRN PRN Reason: Allergy symptoms Last Admin: 11/15/16 01:09 Dose: 25 mg Ergocalciferol (Drisdol 50,000 Intl Units Cap) 1 cap PO Q7D [facility] Last Admin: 11/12/16 15:18 Dose: Not Given Furosemide (Lasix) 20 mg IVP Q12 [facility] Last Admin: 11/15/16 21:35 Dose: 20 mg Home Med (Home Med) 1 unit PO Q12H PRN PRN Reason: Inflammation Last Admin: 10/18/16 11:03 Dose: 1 unit Hydralazine HCl (Apresoline) 10 mg PO Q6H PRN PRN Reason: SBP >170 Last Admin: 11/13/16 03:21 Dose: 10 mg Micafungin Sodium 100 mg/ (Sodium Chloride) 100 mls @ 100 mls/hr IV DAILY [facility] PRN Reason: Protocol Stop: 11/18/16 11:00 Last Admin: 11/15/16 11:13 Dose: 100 mls/hr Hydromorphone HCl (Dilaudid-Hp 1 Mg/Ml Obstetrical Anesthesiologist) 25 mls @ 0.5 mls/hr IV PRN PRN; Protocol PRN Reason: LARYNGOLOGIST PER MD ORDER Last Admin: 11/15/16 09:50 Dose: 0.5 mls/hr Potassium Chloride 30 meq/ (Dextrose) 1,015 mls @ 60 mls/hr IV .[id number] [facility] Last Admin: 11/15/16 15:21 Dose: 60 mls/hr Doxycycline Hyclate 100 mg/ (Sodium Chloride) 100 mls @ 100 mls/hr IVPB Q12 [facility] PRN Reason: Protocol Metoprolol Tartrate (Lopressor) 5 mg IVP Q6H PRN PRN Reason: Sustained HR > 130 Last Admin: 10/31/16 00:12 Dose: 5 mg Multi-Ingredient Ointment (Hydrophor Oint) 0 gm TOP Q6H [facility] Last Admin: 11/15/16 15:20 Dose: Not Given Ondansetron HCl (Zofran Inj) 4 mg IVP Q4H PRN PRN Reason: Nausea/Vomiting Last Admin: 11/11/16 07:31 Dose: 4 mg Pantoprazole Sodium (Protonix Inj) 40 mg IVP Q12 [facility] Last Admin: 11/15/16 21:36 Dose: 40 mg Petrolatum (Desitin Maximum Strength Topical 40% Oint) 1 gm TOP Q4H PRN PRN Reason: Rash Last Admin: 10/23/16 22:39 Dose: 1 applic Propranolol HCl (Inderal La) 120 mg PO DAILY [facility] Last Admin: 11/15/16 09:53 Dose: 120 mg Sucralfate (Carafate Oral Susp) 1 gm PO BID [facility] Last Admin: 11/15/16 18:13 Dose: Not Given Tobramycin Sulfate (Tobrex 0.3% Ophth Soln) 1 drop OU QID [facility] Last Admin: 11/15/16 18:14 Dose: Not Given Valganciclovir (Valcyte) 900 mg PO DAILY [facility] Last Admin: 11/14/16 11:09 Dose: Not Given - Labs Labs: 11/16/16 05:30 11/16/16 05:30 PT 14.6 Seconds (9.9-11.8) H 11/11/16 20:40 INR 1.35 (0.93-1.08) H 11/11/16 20:40 APTT 31.9 Seconds (23.7-30.8) H 11/11/16 20:40 - Constitutional Appears: Cachectic, Chronically Ill - Head Exam Head Exam: ATRAUMATIC, NORMAL INSPECTION, NORMOCEPHALIC - Eye Exam Eye Exam: EOMI, Normal appearance, PERRL. absent: Scleral icterus Pupil Exam: NORMAL ACCOMODATION - ENT Exam ENT Exam: Mucous Membranes Moist - Neck Exam Neck Exam: absent: Meningismus - Respiratory Exam Respiratory Exam: Clear to Ausculation Bilateral. absent: Rales, Rhonchi, Wheezes - Cardiovascular Exam Cardiovascular Exam: REGULAR RHYTHM, +S1, +S2, Murmur - GI/Abdominal Exam GI & Abdominal Exam: Soft, Tenderness (hypogastric area), Normal Bowel Sounds - Extremities Exam Extremities Exam: Normal Capillary Refill, Pedal Edema. absent: Calf Tenderness - Neurological Exam Neurological Exam: Alert, Awake, Oriented x3 - Psychiatric Exam Psychiatric exam: Normal Affect, Normal Mood - Skin Skin Exam: Dry, Warm Additional comments: pale Assessment and Plan - Assessment and Plan (Free Text) Plan: Ms Sherie Gibson is a 61 year old female with PMHx stage 4 colorectal cancer S/ P colectomy in 2014 with stenosis of sigmoid colon and esophageal ulceration of unclear etiology colon cancer stage 4 and Hx Cauda Equina syndrome. She was hospitalized on 10/09 for watery diarrhea with neutropenia. This hospitalization was complicated by (1) neutropenia sepsis due to bacteremia and fungemia, repeat culture from port-a-cath positive for nirmal albicans, port-a-cath removed on 11/12/16. (2) Now mucositis with GI bleed (hematochesia/maroon stool) requiring transfusion. Plan: Pt's on going blood loss is of eminent concern. Blood culture positive for Enterococcus. Port-tip grew nirmal. Pending repeat blood culture, so far negative Palliative colostomy tomorrow Revisited goal of care on 11/12. Pt states that she is not ready for palliative or comfort care. Family meeting today. #Stage IV metastatic colorectal cancer - hold futher specific treatment for now due to complications - s/p Port-a-cath removal #GI bleed, Active, (upper and lower) - Hb 7.8/ Plt 42/ Will transfuse 2 u prbc, 1 ffp, 1 plt. - Stricture at sigmoid colon from external pressure, with ulceration - Many ulcers on esophagus found on EGD, pathology negative - Continue CMV treatment, pt showing clinical improvement - Protonix IV BID - Downgrade to clear liquid diet per GI - clear ensure 3/day - Dietitan: under-nutritient - If Hb < 7, will transfuse anther unit of pRBC - Lasix, Lopressor for BP control; propranolol 1g bid to prevent upper GI bleed # thrombocytopenia - DIC workup negative #Enterococcus Bacteremia and Nirmal fungemia and CMV on upper GI ulcer - Daptomycin, micafungin - hold Valganciclovir since there was no evidence of CMV on the biopsy of the ulcers in the esophagus - will consider restarting acyclovir - (?) PICC change today #FEN - clear liquid - TPN d/c for bacteremia and fungemia - replete electrolytes - KCL 30 meq in D5W @ 60 - Pepto-Bismol; Drisdol 62412 IU weekly #Dispo - to be dertermined - prognosis guarded - consider rehab replacement at minimum - OOB to chair will not cause GI bleed. Increase pain coverage prior transfer and safety precaution. #Full code #Access - L PICC - minor Will s/r/d/s Dr. Hendricks <Kedar Hendricks P - Last Filed: 11/25/16 01:02> Objective - Vital Signs/Intake and Output Vital Signs (last 24 hours): Temp Pulse Resp BP Pulse Ox 97.1 F L 50 L 18 126/58 L 98 11/25/16 00:00 11/25/16 00:00 11/25/16 00:00 11/25/16 00:00 11/25/16 00:00 Intake and Output: 11/24/16 11/25/16 18:59 06:59 Intake Total 2709 425 Output Total 1980 Balance 729 425 - Medications Medications: Current Medications Acetaminophen (Tylenol 650 Mg Supp) 650 mg RC Q4H PRN PRN Reason: Fever >100.4 F Last Admin: 11/01/16 21:18 Dose: 650 mg Collagenase (Santyl) 1 gm TOP BID [facility] Last Admin: 11/24/16 10:43 Dose: 1 applic Diphenhydramine HCl (Benadryl) 50 mg IVP HS PRN PRN Reason: Insomnia Last Admin: 11/23/16 02:36 Dose: 50 mg Ergocalciferol (Drisdol 50,000 Intl Units Cap) 1 cap PO Q7D [facility] Last Admin: 11/19/16 18:04 Dose: Not Given Fentanyl (Duragesic) 1 patch TD Q72H [facility] Last Admin: 11/22/16 14:30 Dose: 1 patch Ferrous Sulfate (Feosol) 324 mg PO TID [facility] Last Admin: 11/24/16 17:15 Dose: Not Given Furosemide (Lasix) 20 mg IVP Q12 [facility] Last Admin: 11/24/16 23:15 Dose: 20 mg Home Med (Home Med) 1 unit PO Q12H PRN PRN Reason: Inflammation Last Admin: 10/18/16 11:03 Dose: 1 unit Hydromorphone HCl (Dilaudid) 1 mg IVP Q1H PRN PRN Reason: Pain, severe (8-10) Last Admin: 11/24/16 23:14 Dose: 1 mg Daptomycin 440 mg/ Sodium (Chloride) 100 mls @ 200 mls/hr IV Q24H [facility] Stop: 11/27/16 09:01 Last Admin: 11/24/16 19:08 Dose: 200 mls/hr Micafungin Sodium 100 mg/ (Sodium Chloride) 100 mls @ 100 mls/hr IV DAILY [facility] PRN Reason: Protocol Stop: 11/28/16 10:01 Last Admin: 11/24/16 10:35 Dose: 100 mls/hr Potassium Chloride 40 meq/ (Dextrose/Sodium Chloride) 1,020 mls @ 80 mls/hr IV .[id number] [facility] Last Admin: 11/24/16 05:49 Dose: 80 mls/hr Cefepime HCl (Maxipime 1gm) 1 gm in 100 mls @ 100 mls/hr IVPB Q12 [facility] PRN Reason: Protocol Last Admin: 11/24/16 23:16 Dose: 100 mls/hr Magnesium Oxide (Mag-Ox) 400 mg PO BID [facility] Last Admin: 11/24/16 17:16 Dose: Not Given Multi-Ingredient Ointment (Hydrophor Oint) 0 gm TOP Q6H PRN PRN Reason: Dry lip Multivitamins (Thera Tab) 1 tab PO 0800 [facility] Last Admin: 11/24/16 10:38 Dose: Not Given Ondansetron HCl (Zofran Inj) 4 mg IVP Q4H PRN PRN Reason: Nausea/Vomiting Last Admin: 11/24/16 00:05 Dose: 4 mg Pantoprazole Sodium (Protonix Inj) 40 mg IVP Q12 [facility] Last Admin: 11/24/16 23:16 Dose: 40 mg Petrolatum (Desitin Maximum Strength Topical 40% Oint) 1 gm TOP Q4H PRN PRN Reason: Rash Last Admin: 10/23/16 22:39 Dose: 1 applic Potassium Chloride (K-Dur 20 Meq Er Tab) 40 meq PO DAILY [facility] Last Admin: 11/24/16 10:39 Dose: Not Given Propranolol HCl (Inderal La) 120 mg PO DAILY [facility] Last Admin: 11/24/16 10:31 Dose: 120 mg Sucralfate (Carafate Oral Susp) 1 gm PO BID [facility] Last Admin: 11/24/16 19:09 Dose: Not Given - Labs Labs: 11/24/16 07:53 11/24/16 07:53 PT 13.1 Seconds (9.9-11.8) H 11/24/16 10:03 INR 1.21 (0.93-1.08) H 11/24/16 10:03 APTT 31.2 Seconds (23.7-30.8) H 11/24/16 10:03 Attending/Attestation - Attestation I have personally seen and examined this patient.: Yes I have fully participated in the care of the patient.: Yes I have reviewed all pertinent clinical information, including history, physical exam and plan: Yes
[2016-11-16] MEDS ORDERED: Magnesium Sulfate 2 GM in Sodium Chloride 0.9% 100 ML IVPB ONE ×2 (08:14→09:08)
[2016-11-16] MEDS: Petrolatum-Mineral Oil Oint (100gm) TOP SCH (08:41)
--- NOTE | 2016-11-16 08:56 | CP.PCM.PN ---
<Eng,Natali - Last Filed: 11/16/16 09:08> Subjective - Date & Time of Evaluation Date of Evaluation: 11/16/16 Time of Evaluation: 08:53 - Subjective Subjective: PT S&E at bedside NAEON. Patient was sleepy at time of visit. Patient states no new changes, no bloody BMs, No N/V, F/C, C/D. Objective - Vital Signs/Intake and Output Vital Signs (last 24 hours): Temp Pulse Resp BP Pulse Ox 97.8 F 89 20 140/84 99 11/16/16 08:09 11/16/16 08:09 11/16/16 08:09 11/16/16 08:09 11/16/16 08:09 Intake and Output: 11/16/16 11/16/16 06:59 18:59 Intake Total 1880 Output Total 4200 Balance -2320 - Medications Medications: Current Medications Acetaminophen (Tylenol 650 Mg Supp) 650 mg RC Q4H PRN PRN Reason: Fever >100.4 F Last Admin: 11/01/16 21:18 Dose: 650 mg Bismuth Subsalicylate (Pepto-Bismol) 262 mg PO BID [facility] Last Admin: 11/15/16 18:13 Dose: Not Given Collagenase (Santyl) 1 gm TOP BID [facility] Last Admin: 11/15/16 18:14 Dose: Not Given Al Hydrox/Mg Hydrox/Simethicone 30 ml/Diphenhydramine HCl 75 mg/Lidocaine 30 ml 0 ml PO Q2H PRN PRN Reason: Mouth/Throat Pain Last Admin: 11/07/16 09:00 Dose: 15 ml Diphenhydramine HCl (Benadryl) 25 mg IVP Q4H PRN PRN Reason: Allergy symptoms Last Admin: 11/15/16 01:09 Dose: 25 mg Ergocalciferol (Drisdol 50,000 Intl Units Cap) 1 cap PO Q7D [facility] Last Admin: 11/12/16 15:18 Dose: Not Given Furosemide (Lasix) 20 mg IVP Q12 [facility] Last Admin: 11/15/16 21:35 Dose: 20 mg Home Med (Home Med) 1 unit PO Q12H PRN PRN Reason: Inflammation Last Admin: 10/18/16 11:03 Dose: 1 unit Hydralazine HCl (Apresoline) 10 mg PO Q6H PRN PRN Reason: SBP >170 Last Admin: 11/13/16 03:21 Dose: 10 mg Micafungin Sodium 100 mg/ (Sodium Chloride) 100 mls @ 100 mls/hr IV DAILY [facility] PRN Reason: Protocol Stop: 11/18/16 11:00 Last Admin: 11/15/16 11:13 Dose: 100 mls/hr Hydromorphone HCl (Dilaudid-Hp 1 Mg/Ml Retail Administrative Assistant) 25 mls @ 0.5 mls/hr IV PRN PRN; Protocol PRN Reason: FUNERAL PROFESSIONAL PER MD ORDER Last Admin: 11/15/16 09:50 Dose: 0.5 mls/hr Potassium Chloride 30 meq/ (Dextrose) 1,015 mls @ 60 mls/hr IV .[id number] [facility] Last Admin: 11/15/16 15:21 Dose: 60 mls/hr Doxycycline Hyclate 100 mg/ (Sodium Chloride) 100 mls @ 100 mls/hr IVPB Q12 [facility] PRN Reason: Protocol Magnesium Sulfate 2 gm/ Sodium (Chloride) 104 mls @ 102 mls/hr IVPB ONCE ONE Stop: 11/16/16 09:15 Potassium Chloride (Potassium Chloride 20 Meq/100 Ml) 20 meq in 100 mls @ 50 mls/hr IVPB Q2H [facility] Stop: 11/16/16 12:14 Last Admin: 11/16/16 08:36 Dose: 50 mls/hr Metoprolol Tartrate (Lopressor) 5 mg IVP Q6H PRN PRN Reason: Sustained HR > 130 Last Admin: 10/31/16 00:12 Dose: 5 mg Multi-Ingredient Ointment (Hydrophor Oint) 0 gm TOP Q6H [facility] Last Admin: 11/16/16 08:41 Dose: Not Given Ondansetron HCl (Zofran Inj) 4 mg IVP Q4H PRN PRN Reason: Nausea/Vomiting Last Admin: 11/11/16 07:31 Dose: 4 mg Pantoprazole Sodium (Protonix Inj) 40 mg IVP Q12 [facility] Last Admin: 11/15/16 21:36 Dose: 40 mg Petrolatum (Desitin Maximum Strength Topical 40% Oint) 1 gm TOP Q4H PRN PRN Reason: Rash Last Admin: 10/23/16 22:39 Dose: 1 applic Propranolol HCl (Inderal La) 120 mg PO DAILY [facility] Last Admin: 11/15/16 09:53 Dose: 120 mg Sucralfate (Carafate Oral Susp) 1 gm PO BID [facility] Last Admin: 11/15/16 18:13 Dose: Not Given Tobramycin Sulfate (Tobrex 0.3% Ophth Soln) 1 drop OU QID [facility] Last Admin: 11/15/16 18:14 Dose: Not Given Valganciclovir (Valcyte) 900 mg PO DAILY [facility] Last Admin: 11/14/16 11:09 Dose: Not Given - Labs Labs: 11/16/16 05:30 11/16/16 05:30 PT 14.6 Seconds (9.9-11.8) H 11/11/16 20:40 INR 1.35 (0.93-1.08) H 11/11/16 20:40 APTT 31.9 Seconds (23.7-30.8) H 11/11/16 20:40 - Constitutional Appears: Chronically Ill - Head Exam Head Exam: NORMAL INSPECTION - Eye Exam Eye Exam: EOMI, Normal appearance - ENT Exam ENT Exam: Mucous Membranes Moist, Normal Exam - Neck Exam Neck Exam: Full ROM. absent: Thyromegaly - Respiratory Exam Respiratory Exam: NORMAL BREATHING PATTERN. absent: Accessory Muscle Use, Rhonchi, Wheezes, Respiratory Distress - GI/Abdominal Exam GI & Abdominal Exam: Soft, Diminished Bowel Sounds, Normal Bowel Sounds. absent : Tenderness - Extremities Exam Extremities Exam: Full ROM, Normal Inspection. absent: Joint Swelling, Pedal Edema - Skin Additional comments: PICC Line site no signs of infection c/d/i, no induration, erythema, no drainage Assessment and Plan - Assessment and Plan (Free Text) Assessment: 61 F admitted for sacral wound and GI bleed with a history of stage IV metastatic colorectal cancer. Patient is currently being treated for bacteremia and fungemia. Plan: follow H/Hs KCL 30 meq in D5W @ 60 c/w TPN continue with current abx therapy Doxycyline (day one) 100 mg Q12 Monitor PICC line site (Left) Monitor Port removal site for signs of infection OOBTC <Yoan Mccracken - Last Filed: 12/02/16 23:54> Objective - Vital Signs/Intake and Output Vital Signs (last 24 hours): Temp Pulse Resp BP Pulse Ox 97.8 F 101 H 18 170/89 H 100 12/02/16 16:00 12/02/16 16:00 12/02/16 16:00 12/02/16 16:00 12/02/16 16:00 Intake and Output: 12/02/16 12/03/16 18:59 06:59 Intake Total 120 Output Total 450 600 Balance -450 -480 - Medications Medications: Current Medications Acetaminophen (Tylenol 650 Mg Supp) 650 mg RC Q4H PRN PRN Reason: Fever >100.4 F Last Admin: 11/01/16 21:18 Dose: 650 mg Al Hydrox/Mg Hydrox/Simethicone 30 ml/Diphenhydramine HCl 75 mg/Lidocaine 30 ml 0 ml PO QID [facility] Last Admin: 12/02/16 21:01 Dose: Not Given Diphenhydramine HCl (Benadryl) 50 mg IVP HS PRN PRN Reason: Insomnia Last Admin: 11/27/16 01:00 Dose: 50 mg Ergocalciferol (Drisdol 50,000 Intl Units Cap) 1 cap PO Q7D [facility] Last Admin: 11/19/16 18:04 Dose: Not Given Ferrous Sulfate (Feosol) 324 mg PO TID [facility] Last Admin: 12/02/16 18:16 Dose: Not Given Fluconazole (Diflucan) 200 mg PO DAILY [facility] PRN Reason: Protocol Stop: 12/12/16 10:01 Last Admin: 12/02/16 09:44 Dose: Not Given Home Med (Home Med) 1 unit PO Q12H PRN PRN Reason: Inflammation Last Admin: 10/18/16 11:03 Dose: 1 unit Hydralazine HCl (Apresoline) 10 mg IVP Q4H PRN PRN Reason: Systolic Blood Pressure Hydromorphone HCl (Dilaudid) 1 mg IVP Q1H PRN PRN Reason: Pain, moderate (4-7) Last Admin: 12/02/16 21:06 Dose: 1 mg Levetiracetam (Keppra 500mg Ivpb) 500 mg in 100 mls @ 400 mls/hr IV Q12 [facility] Last Admin: 12/02/16 21:06 Dose: 400 mls/hr Potassium Chloride/Dextrose (Potassium Chl 40 Meq In D5w) 1,000 mls @ 60 mls/ hr IV .[id number] [facility] Last Admin: 12/02/16 18:17 Dose: Not Given Magnesium Hydroxide (Milk Of Magnesia) 30 ml PO DAILY PRN PRN Reason: skin irritation Last Admin: 12/02/16 14:09 Dose: 30 ml Magnesium Oxide (Mag-Ox) 400 mg PO BID [facility] Last Admin: 12/02/16 18:16 Dose: Not Given Multi-Ingredient Ointment (Hydrophor Oint) 0 gm TOP Q6H PRN PRN Reason: Dry lip Multivitamins (Thera Tab) 1 tab PO 0800 [facility] Last Admin: 12/02/16 08:10 Dose: Not Given Propranolol HCl (Inderal La) 120 mg PO DAILY [facility] Last Admin: 12/02/16 09:44 Dose: Not Given Sucralfate (Carafate Oral Susp) 1 gm PO BID [facility] Last Admin: 12/02/16 18:16 Dose: Not Given - Labs Labs: 12/02/16 06:00 12/02/16 06:00 PT 12.9 Seconds (9.9-11.8) H 12/02/16 06:00 INR 1.19 (0.93-1.08) H 12/02/16 06:00 APTT 32.9 Seconds (23.7-30.8) H 12/02/16 06:00 Assessment and Plan - Assessment and Plan (Free Text) Plan: Patient was seen and examined by me. I agree with assessment and plan as per resident's note.
[2016-11-16] MEDS: Propranolol 60 mg ER Cap PO SCH (09:04)
[2016-11-16] MEDS: Sucralfate 1 gm/10 ml Oral Susp UD PO SCH ×2 (09:04→18:25)
[2016-11-16] MEDS: Micafungin 100 MG in Sodium Chloride 0.9% 100 ML IV SCH (09:09)
[2016-11-16 09:12] LABS: INR 1.22 (0.93-1.08); PARTIAL THROMBOPLASTIN TIME 32.4 Seconds (23.7-30.8); PROTHROMBIN TIME 13.2 Seconds (9.9-11.8)
[2016-11-16] MEDS: Bismuth Subsalicylate 262 mg/15 ml Sus (240 ml) PO SCH (09:12)
[2016-11-16] MEDS: Collagenase 250 Units/gm Ointment(30 gm) TOP SCH ×2 (09:14→18:25)
--- NOTE | 2016-11-16 09:30 | CP.PCM.PN ---
Subjective - Date & Time of Evaluation Date of Evaluation: 11/16/16 Time of Evaluation: 08:00 - Subjective Subjective: No new complins Objective - Vital Signs/Intake and Output Vital Signs (last 24 hours): Temp Pulse Resp BP Pulse Ox 97.8 F 89 20 140/84 99 11/16/16 08:09 11/16/16 08:09 11/16/16 08:09 11/16/16 09:03 11/16/16 08:09 Intake and Output: 11/16/16 11/16/16 06:59 18:59 Intake Total 1880 Output Total 4200 Balance -2320 - Medications Medications: Current Medications Acetaminophen (Tylenol 650 Mg Supp) 650 mg RC Q4H PRN PRN Reason: Fever >100.4 F Last Admin: 11/01/16 21:18 Dose: 650 mg Bismuth Subsalicylate (Pepto-Bismol) 262 mg PO BID [facility] Last Admin: 11/16/16 09:12 Dose: Not Given Collagenase (Santyl) 1 gm TOP BID [facility] Last Admin: 11/16/16 09:14 Dose: 1 applic Al Hydrox/Mg Hydrox/Simethicone 30 ml/Diphenhydramine HCl 75 mg/Lidocaine 30 ml 0 ml PO Q2H PRN PRN Reason: Mouth/Throat Pain Last Admin: 11/07/16 09:00 Dose: 15 ml Diphenhydramine HCl (Benadryl) 25 mg IVP Q4H PRN PRN Reason: Allergy symptoms Last Admin: 11/15/16 01:09 Dose: 25 mg Ergocalciferol (Drisdol 50,000 Intl Units Cap) 1 cap PO Q7D [facility] Last Admin: 11/12/16 15:18 Dose: Not Given Furosemide (Lasix) 20 mg IVP Q12 [facility] Last Admin: 11/16/16 09:03 Dose: 20 mg Home Med (Home Med) 1 unit PO Q12H PRN PRN Reason: Inflammation Last Admin: 10/18/16 11:03 Dose: 1 unit Hydralazine HCl (Apresoline) 10 mg PO Q6H PRN PRN Reason: SBP >170 Last Admin: 11/13/16 03:21 Dose: 10 mg Micafungin Sodium 100 mg/ (Sodium Chloride) 100 mls @ 100 mls/hr IV DAILY [facility] PRN Reason: Protocol Stop: 11/18/16 11:00 Last Admin: 11/16/16 09:09 Dose: 100 mls/hr Hydromorphone HCl (Dilaudid-Hp 1 Mg/Ml Private Duty Rn) 25 mls @ 0.5 mls/hr IV PRN PRN; Protocol PRN Reason: [employer] E[employer] PARALEGAL PER MD ORDER Last Admin: 11/15/16 09:50 Dose: 0.5 mls/hr Potassium Chloride 30 meq/ (Dextrose) 1,015 mls @ 60 mls/hr IV .[id number] [facility] Last Admin: 11/15/16 15:21 Dose: 60 mls/hr Doxycycline Hyclate 100 mg/ (Sodium Chloride) 100 mls @ 100 mls/hr IVPB Q12 [facility] PRN Reason: Protocol Last Admin: 11/16/16 09:08 Dose: 100 mls/hr Potassium Chloride (Potassium Chloride 20 Meq/100 Ml) 20 meq in 100 mls @ 50 mls/hr IVPB Q2H [facility] Stop: 11/16/16 12:14 Last Admin: 11/16/16 08:36 Dose: 50 mls/hr Magnesium Sulfate 2 gm/ Sodium (Chloride) 104 mls @ 102 mls/hr IVPB ONCE ONE Stop: 11/16/16 10:09 Metoprolol Tartrate (Lopressor) 5 mg IVP Q6H PRN PRN Reason: Sustained HR > 130 Last Admin: 10/31/16 00:12 Dose: 5 mg Multi-Ingredient Ointment (Hydrophor Oint) 0 gm TOP Q6H [facility] Last Admin: 11/16/16 08:41 Dose: Not Given Ondansetron HCl (Zofran Inj) 4 mg IVP Q4H PRN PRN Reason: Nausea/Vomiting Last Admin: 11/11/16 07:31 Dose: 4 mg Pantoprazole Sodium (Protonix Inj) 40 mg IVP Q12 [facility] Last Admin: 11/16/16 09:04 Dose: 40 mg Petrolatum (Desitin Maximum Strength Topical 40% Oint) 1 gm TOP Q4H PRN PRN Reason: Rash Last Admin: 10/23/16 22:39 Dose: 1 applic Propranolol HCl (Inderal La) 120 mg PO DAILY [facility] Last Admin: 11/16/16 09:04 Dose: 120 mg Sucralfate (Carafate Oral Susp) 1 gm PO BID [facility] Last Admin: 11/16/16 09:04 Dose: 1 gm Tobramycin Sulfate (Tobrex 0.3% Ophth Soln) 1 drop OU QID [facility] Last Admin: 11/15/16 18:14 Dose: Not Given Valganciclovir (Valcyte) 900 mg PO DAILY [facility] Last Admin: 11/14/16 11:09 Dose: Not Given - Labs Labs: 11/16/16 05:30 11/16/16 05:30 PT 13.2 Seconds (9.9-11.8) H 11/16/16 08:30 INR 1.22 (0.93-1.08) H 11/16/16 08:30 APTT 32.4 Seconds (23.7-30.8) H 11/16/16 08:30 - Constitutional Appears: Non-toxic - Head Exam Head Exam: ATRAUMATIC - Eye Exam Eye Exam: Normal appearance - ENT Exam ENT Exam: Mucous Membranes Dry - Neck Exam Neck Exam: Full ROM - Respiratory Exam Respiratory Exam: Clear to Ausculation Bilateral - Cardiovascular Exam Cardiovascular Exam: REGULAR RHYTHM - GI/Abdominal Exam GI & Abdominal Exam: Tenderness Additional comments: Mild tenderness in Lower abdomen. Assessment and Plan - Assessment and Plan (Free Text) Assessment: Ca colon s tach improved on Inderal Sever anemia thrombocytopenia sepsis partial Obst of colon Ca colon with MeTs. Hypokalemia protein calorie Malnutriotion Plan: Continue Inderal Supplement K increae Nutriotional support.
[2016-11-16] MEDS ORDERED: Fluconazole IV 400mg/200ml NS 200 ML IVPB STA (09:31)
[2016-11-16] MEDS ORDERED: Fluconazole IV 200mg/100 ml NS 100 ML IVPB SCH (10:00)
[2016-11-16] MEDS: Tobramycin 0.3% OPHT SOLN OU SCH ×4 (11:01→22:40)
--- NOTE | 2016-11-16 11:03 | CP.PCM.PN ---
<Yoana Osei - Last Filed: 11/16/16 11:02> Subjective - Date & Time of Evaluation Date of Evaluation: 11/16/16 Time of Evaluation: 08:50 - Subjective Subjective: S&E chart reviewed. Patient awake, drowsy at times, on ENTERPRISE [employer]D ARCHITECT. Sister at bedside. No N/V, had 4 moderate amount bloody stool last night per nursing. None yet noted this am. No SOB, CP, (+) abdominal pain. Blood culture prelim negative. Objective - Vital Signs/Intake and Output Vital Signs (last 24 hours): Temp Pulse Resp BP Pulse Ox 97.8 F 89 20 140/84 99 11/16/16 08:09 11/16/16 08:09 11/16/16 08:09 11/16/16 09:03 11/16/16 08:09 Intake and Output: 11/16/16 11/16/16 06:59 18:59 Intake Total 1880 Output Total 4200 Balance -2320 - Medications Medications: Current Medications Acetaminophen (Tylenol 650 Mg Supp) 650 mg RC Q4H PRN PRN Reason: Fever >100.4 F Last Admin: 11/01/16 21:18 Dose: 650 mg Bismuth Subsalicylate (Pepto-Bismol) 262 mg PO BID [facility] Last Admin: 11/16/16 09:12 Dose: Not Given Collagenase (Santyl) 1 gm TOP BID [facility] Last Admin: 11/16/16 09:14 Dose: 1 applic Al Hydrox/Mg Hydrox/Simethicone 30 ml/Diphenhydramine HCl 75 mg/Lidocaine 30 ml 0 ml PO Q2H PRN PRN Reason: Mouth/Throat Pain Last Admin: 11/07/16 09:00 Dose: 15 ml Diphenhydramine HCl (Benadryl) 25 mg IVP Q4H PRN PRN Reason: Allergy symptoms Last Admin: 11/15/16 01:09 Dose: 25 mg Ergocalciferol (Drisdol 50,000 Intl Units Cap) 1 cap PO Q7D [facility] Last Admin: 11/12/16 15:18 Dose: Not Given Furosemide (Lasix) 20 mg IVP Q12 [facility] Last Admin: 11/16/16 09:03 Dose: 20 mg Home Med (Home Med) 1 unit PO Q12H PRN PRN Reason: Inflammation Last Admin: 10/18/16 11:03 Dose: 1 unit Hydralazine HCl (Apresoline) 10 mg PO Q6H PRN PRN Reason: SBP >170 Last Admin: 11/13/16 03:21 Dose: 10 mg Micafungin Sodium 100 mg/ (Sodium Chloride) 100 mls @ 100 mls/hr IV DAILY [facility] PRN Reason: Protocol Stop: 11/18/16 11:00 Last Admin: 11/16/16 09:09 Dose: 100 mls/hr Hydromorphone HCl (Dilaudid-Hp 1 Mg/Ml Superintendent Maintenance) 25 mls @ 0.5 mls/hr IV PRN PRN; Protocol PRN Reason: [employer] ARCHITECT PER MD ORDER Last Admin: 11/15/16 09:50 Dose: 0.5 mls/hr Potassium Chloride 30 meq/ (Dextrose) 1,015 mls @ 60 mls/hr IV .[id number] [facility] Last Admin: 11/15/16 15:21 Dose: 60 mls/hr Doxycycline Hyclate 100 mg/ (Sodium Chloride) 100 mls @ 100 mls/hr IVPB Q12 [facility] PRN Reason: Protocol Last Admin: 11/16/16 09:08 Dose: 100 mls/hr Potassium Chloride (Potassium Chloride 20 Meq/100 Ml) 20 meq in 100 mls @ 50 mls/hr IVPB Q2H [facility] Stop: 11/16/16 12:14 Last Admin: 11/16/16 10:22 Dose: 50 mls/hr Fluconazole (Diflucan Iv 400mg/200ml Ns) 200 mls @ 100 mls/hr IVPB STAT STA PRN Reason: Protocol Stop: 11/16/16 11:30 Last Admin: 11/16/16 10:19 Dose: 100 mls/hr Metoprolol Tartrate (Lopressor) 5 mg IVP Q6H PRN PRN Reason: Sustained HR > 130 Last Admin: 10/31/16 00:12 Dose: 5 mg Multi-Ingredient Ointment (Hydrophor Oint) 0 gm TOP Q6H [facility] Last Admin: 11/16/16 08:41 Dose: Not Given Ondansetron HCl (Zofran Inj) 4 mg IVP Q4H PRN PRN Reason: Nausea/Vomiting Last Admin: 11/11/16 07:31 Dose: 4 mg Pantoprazole Sodium (Protonix Inj) 40 mg IVP Q12 [facility] Last Admin: 11/16/16 09:04 Dose: 40 mg Petrolatum (Desitin Maximum Strength Topical 40% Oint) 1 gm TOP Q4H PRN PRN Reason: Rash Last Admin: 10/23/16 22:39 Dose: 1 applic Propranolol HCl (Inderal La) 120 mg PO DAILY [facility] Last Admin: 11/16/16 09:04 Dose: 120 mg Sucralfate (Carafate Oral Susp) 1 gm PO BID [facility] Last Admin: 11/16/16 09:04 Dose: 1 gm Tobramycin Sulfate (Tobrex 0.3% Ophth Soln) 1 drop OU QID [facility] Last Admin: 11/15/16 18:14 Dose: Not Given Valganciclovir (Valcyte) 900 mg PO DAILY [facility] Last Admin: 11/14/16 11:09 Dose: Not Given - Labs Labs: 11/16/16 05:30 11/16/16 05:30 PT 13.2 Seconds (9.9-11.8) H 11/16/16 08:30 INR 1.22 (0.93-1.08) H 11/16/16 08:30 APTT 32.4 Seconds (23.7-30.8) H 11/16/16 08:30 - Constitutional Appears: No Acute Distress - Head Exam Head Exam: NORMAL INSPECTION - Eye Exam Eye Exam: Normal appearance. absent: Scleral icterus - ENT Exam ENT Exam: Mucous Membranes Moist - Neck Exam Neck Exam: Normal Inspection - Respiratory Exam Respiratory Exam: NORMAL BREATHING PATTERN. absent: Respiratory Distress - Cardiovascular Exam Cardiovascular Exam: +S1, +S2 - GI/Abdominal Exam GI & Abdominal Exam: Soft, Tenderness, Normal Bowel Sounds. absent: Guarding, Rebound - Extremities Exam Extremities Exam: Pedal Edema. absent: Calf Tenderness - Neurological Exam Neurological Exam: Awake, Oriented x3 - Skin Skin Exam: Dry, Warm Assessment and Plan - Assessment and Plan (Free Text) Assessment: ASSESSMENT: Stage IV colon cancer with metastasis to the bone Severe anemia, status post multiple blood transfusions Thrombocytopenia GIB, , rectal bleed S/P flex sigmoidoscopy,still showed the stricture in the sigmoid colon Acute renal failure Esophagitis with ulcerations, BX negative for CMV Bacteremia, Fungemia with Susy Diarrhea, s/p sandostatin/ Codeine Decubitus ulcers PLAN: PPI clear liquid only, pls do not advance unless cleared by GI on Carafate on [employer] ARCHITECT pump on IVF monitor h/h, transfuse as needed on IV antibiotics as per ID : Doxcycline, Diflucan, Vancyclovir on hold as per ID, bX negative for CMV GI Bleed scan , spoke to pt and family at bedside as per oncology, surgery Seen and case discussed with Dr. Null <Tong Null V - Last Filed: 11/16/16 23:53> Objective - Vital Signs/Intake and Output Vital Signs (last 24 hours): Temp Pulse Resp BP Pulse Ox 97.8 F 85 18 135/87 20 L 11/16/16 22:55 11/16/16 22:55 11/16/16 22:55 11/16/16 22:55 11/16/16 16:00 Intake and Output: 11/16/16 11/17/16 18:59 06:59 Intake Total 345 360 Output Total 400 Balance 345 -40 - Medications Medications: Current Medications Acetaminophen (Tylenol 650 Mg Supp) 650 mg RC Q4H PRN PRN Reason: Fever >100.4 F Last Admin: 11/01/16 21:18 Dose: 650 mg Collagenase (Santyl) 1 gm TOP BID [facility] Last Admin: 11/16/16 18:25 Dose: 1 applic Al Hydrox/Mg Hydrox/Simethicone 30 ml/Diphenhydramine HCl 75 mg/Lidocaine 30 ml 0 ml PO Q2H PRN PRN Reason: Mouth/Throat Pain Last Admin: 11/07/16 09:00 Dose: 15 ml Diphenhydramine HCl (Benadryl) 25 mg IVP Q4H PRN PRN Reason: Allergy symptoms Last Admin: 11/15/16 01:09 Dose: 25 mg Ergocalciferol (Drisdol 50,000 Intl Units Cap) 1 cap PO Q7D [facility] Last Admin: 11/12/16 15:18 Dose: Not Given Furosemide (Lasix) 20 mg IVP Q12 [facility] Last Admin: 11/16/16 09:03 Dose: 20 mg Home Med (Home Med) 1 unit PO Q12H PRN PRN Reason: Inflammation Last Admin: 10/18/16 11:03 Dose: 1 unit Hydralazine HCl (Apresoline) 10 mg PO Q6H PRN PRN Reason: SBP >170 Last Admin: 11/13/16 03:21 Dose: 10 mg Micafungin Sodium 100 mg/ (Sodium Chloride) 100 mls @ 100 mls/hr IV DAILY [facility] PRN Reason: Protocol Stop: 11/18/16 11:00 Last Admin: 11/16/16 09:09 Dose: 100 mls/hr Hydromorphone HCl (Dilaudid-Hp 1 Mg/Ml Superintendent Maintenance) 25 mls @ 0.5 mls/hr IV PRN PRN; Protocol PRN Reason: [employer] ARCHITECT PER MD ORDER Last Admin: 11/16/16 17:38 Dose: 0.5 mls/hr Doxycycline Hyclate 100 mg/ (Sodium Chloride) 100 mls @ 100 mls/hr IVPB Q12 [facility] PRN Reason: Protocol Last Admin: 11/16/16 09:08 Dose: 100 mls/hr Potassium Chloride 30 meq/ (Sodium Chloride) 1,015 mls @ 125 mls/hr IV .Q8H8M [facility] Last Admin: 11/16/16 18:26 Dose: 125 mls/hr Metoprolol Tartrate (Lopressor) 5 mg IVP Q6H PRN PRN Reason: Sustained HR > 130 Last Admin: 10/31/16 00:12 Dose: 5 mg Multi-Ingredient Ointment (Hydrophor Oint) 0 gm TOP Q6H PRN PRN Reason: Dry lip Ondansetron HCl (Zofran Inj) 4 mg IVP Q4H PRN PRN Reason: Nausea/Vomiting Last Admin: 11/11/16 07:31 Dose: 4 mg Pantoprazole Sodium (Protonix Inj) 40 mg IVP Q12 [facility] Last Admin: 11/16/16 09:04 Dose: 40 mg Petrolatum (Desitin Maximum Strength Topical 40% Oint) 1 gm TOP Q4H PRN PRN Reason: Rash Last Admin: 10/23/16 22:39 Dose: 1 applic Phytonadione (Vitamin K Inj) 10 mg SC ONCE ONE Stop: 11/17/16 05:01 Propranolol HCl (Inderal La) 120 mg PO DAILY [facility] Last Admin: 11/16/16 09:04 Dose: 120 mg Sucralfate (Carafate Oral Susp) 1 gm PO BID [facility] Last Admin: 11/16/16 18:25 Dose: 1 gm Tobramycin Sulfate (Tobrex 0.3% Ophth Soln) 1 drop OU QID [facility] Last Admin: 11/16/16 18:26 Dose: 1 drop Valganciclovir (Valcyte) 900 mg PO DAILY [facility] Last Admin: 11/14/16 11:09 Dose: Not Given - Labs Labs: 11/16/16 05:30 11/16/16 21:18 PT 13.2 Seconds (9.9-11.8) H 11/16/16 08:30 INR 1.22 (0.93-1.08) H 11/16/16 08:30 APTT 32.4 Seconds (23.7-30.8) H 11/16/16 08:30 Attending/Attestation - Attestation I have personally seen and examined this patient.: Yes I have fully participated in the care of the patient.: Yes I have reviewed all pertinent clinical information, including history, physical exam and plan: Yes Notes (Text): this patient was seen and evaluated earlier. Discussed with the patient's sister and also patient's mother and patient at length. Discussed also with Dr. Jones and also .bleeding scan was reviewed and was negative. Patient is planned for OR tomorrow. Would consider upper GI endoscopy to evaluate GI bleeding prior to surgery in a.m.
--- NOTE | 2016-11-16 11:39 | CP.PCM.PN ---
Subjective - Date & Time of Evaluation Date of Evaluation: 11/16/16 Time of Evaluation: 10:55 - Subjective Subjective: Still weak and tired, no fevers overnight, still not swallowing well. Objective - Vital Signs/Intake and Output Vital Signs (last 24 hours): Temp Pulse Resp BP Pulse Ox 97.8 F 82 20 145/92 H 97 11/15/16 16:00 11/16/16 05:30 11/15/16 16:00 11/15/16 21:35 11/15/16 16:00 Intake and Output: 11/16/16 11/16/16 06:59 18:59 Intake Total 1880 Output Total 4200 Balance -2320 - Medications Medications: Current Medications Acetaminophen (Tylenol 650 Mg Supp) 650 mg RC Q4H PRN PRN Reason: Fever >100.4 F Last Admin: 11/01/16 21:18 Dose: 650 mg Bismuth Subsalicylate (Pepto-Bismol) 262 mg PO BID [facility] Last Admin: 11/15/16 18:13 Dose: Not Given Collagenase (Santyl) 1 gm TOP BID [facility] Last Admin: 11/15/16 18:14 Dose: Not Given Al Hydrox/Mg Hydrox/Simethicone 30 ml/Diphenhydramine HCl 75 mg/Lidocaine 30 ml 0 ml PO Q2H PRN PRN Reason: Mouth/Throat Pain Last Admin: 11/07/16 09:00 Dose: 15 ml Diphenhydramine HCl (Benadryl) 25 mg IVP Q4H PRN PRN Reason: Allergy symptoms Last Admin: 11/15/16 01:09 Dose: 25 mg Ergocalciferol (Drisdol 50,000 Intl Units Cap) 1 cap PO Q7D [facility] Last Admin: 11/12/16 15:18 Dose: Not Given Furosemide (Lasix) 20 mg IVP Q12 [facility] Last Admin: 11/15/16 21:35 Dose: 20 mg Home Med (Home Med) 1 unit PO Q12H PRN PRN Reason: Inflammation Last Admin: 10/18/16 11:03 Dose: 1 unit Hydralazine HCl (Apresoline) 10 mg PO Q6H PRN PRN Reason: SBP >170 Last Admin: 11/13/16 03:21 Dose: 10 mg Micafungin Sodium 100 mg/ (Sodium Chloride) 100 mls @ 100 mls/hr IV DAILY [facility] PRN Reason: Protocol Stop: 11/18/16 11:00 Last Admin: 11/15/16 11:13 Dose: 100 mls/hr Hydromorphone HCl (Dilaudid-Hp 1 Mg/Ml Tankroom Tender) 25 mls @ 0.5 mls/hr IV PRN PRN; Protocol PRN Reason: COMMODITIES CLERK PER MD ORDER Last Admin: 11/15/16 09:50 Dose: 0.5 mls/hr Potassium Chloride 30 meq/ (Dextrose) 1,015 mls @ 60 mls/hr IV .[id number] [facility] Last Admin: 11/15/16 15:21 Dose: 60 mls/hr Doxycycline Hyclate 100 mg/ (Sodium Chloride) 100 mls @ 100 mls/hr IVPB Q12 [facility] PRN Reason: Protocol Metoprolol Tartrate (Lopressor) 5 mg IVP Q6H PRN PRN Reason: Sustained HR > 130 Last Admin: 10/31/16 00:12 Dose: 5 mg Multi-Ingredient Ointment (Hydrophor Oint) 0 gm TOP Q6H [facility] Last Admin: 11/15/16 15:20 Dose: Not Given Ondansetron HCl (Zofran Inj) 4 mg IVP Q4H PRN PRN Reason: Nausea/Vomiting Last Admin: 11/11/16 07:31 Dose: 4 mg Pantoprazole Sodium (Protonix Inj) 40 mg IVP Q12 [facility] Last Admin: 11/15/16 21:36 Dose: 40 mg Petrolatum (Desitin Maximum Strength Topical 40% Oint) 1 gm TOP Q4H PRN PRN Reason: Rash Last Admin: 10/23/16 22:39 Dose: 1 applic Propranolol HCl (Inderal La) 120 mg PO DAILY [facility] Last Admin: 11/15/16 09:53 Dose: 120 mg Sucralfate (Carafate Oral Susp) 1 gm PO BID [facility] Last Admin: 11/15/16 18:13 Dose: Not Given Tobramycin Sulfate (Tobrex 0.3% Ophth Soln) 1 drop OU QID [facility] Last Admin: 11/15/16 18:14 Dose: Not Given Valganciclovir (Valcyte) 900 mg PO DAILY [facility] Last Admin: 11/14/16 11:09 Dose: Not Given - Labs Labs: 11/16/16 05:30 11/16/16 05:30 PT 14.6 Seconds (9.9-11.8) H 11/11/16 20:40 INR 1.35 (0.93-1.08) H 11/11/16 20:40 APTT 31.9 Seconds (23.7-30.8) H 11/11/16 20:40 - Constitutional Appears: Chronically Ill - Head Exam Head Exam: NORMAL INSPECTION - Neck Exam Neck Exam: absent: Meningismus - Respiratory Exam Respiratory Exam: Decreased Breath Sounds - Cardiovascular Exam Cardiovascular Exam: +S1, +S2 - GI/Abdominal Exam GI & Abdominal Exam: Soft. 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, probably from port-a-cath S/P removal POD # 4 (since the patient had been on TPN through the port) Methicillin-resistant coagulase negative staph in repeat blood cx bottle, consider bacteremia R/O secondary to PICC line R/O contamination Partial small bowel obstruction, persistent with colonic stricture Acute stomatitis and mucositis, as well as esophageal ulcers (esophagitis) and enteritis - no CMV noted on biopsy sample of the esophageal ulcers - consider Susy Esophagitis Neutropenia probably from chemotherapy, resolved HTN 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 S/P colectomy in 2014 history of UTI GERD anxiety Plan continue Mycamine and Daptomycin (will follow up repeat blood cx as well from the PICC line and from a peripheral vein); will hold Valganciclovir since there was no evidence of CMV on the biopsy of the ulcers in the esophagus - will consider restarting acyclovir; will also consider antibiotic lock therapy since the platelets are low and removal of the PICC line may be dangerous currently follow up plan for surgery Will continue to follow clinically Overall prognosis is poor
[2016-11-16] MEDS ORDERED: Petrolatum-Mineral Oil Oint (100gm) TOP PRN (12:55)
--- NOTE | 2016-11-16 14:54 | NM ---
PROCEDURE: Nuclear medicine gastrointestinal bleeding scan. HISTORY: rectal bleeding COMPARISON: None available. TECHNIQUE: 4 cc of patient blood was withdrawn and mixed with 20 mCi of technetium ultra tagged. Images of the abdomen and pelvis were obtained in the anterior projection at 1 min intervals over a period of 45 min. FINDINGS: No abnormal extravasation of tracer was observed throughout the exam to indicate active bleeding within or outside the gastrointestinal tract. Physiologic activity was seen in the heart, liver, spleen and blood vessels. IMPRESSION: No evidence of active gastrointestinal bleeding.
--- NOTE | 2016-11-16 15:45 | CP.PCM.PN ---
Subjective - Date & Time of Evaluation Date of Evaluation: 11/16/16 Time of Evaluation: 08:45 - Subjective Subjective: Awake, alert Objective - Vital Signs/Intake and Output Vital Signs (last 24 hours): Temp Pulse Resp BP Pulse Ox 98.1 F 84 18 136/93 H 99 11/16/16 14:53 11/16/16 14:53 11/16/16 14:53 11/16/16 14:53 11/16/16 08:09 Intake and Output: 11/16/16 11/16/16 06:59 18:59 Intake Total 1880 0 Output Total 4200 Balance -2320 0 - Medications Medications: Current Medications Acetaminophen (Tylenol 650 Mg Supp) 650 mg RC Q4H PRN PRN Reason: Fever >100.4 F Last Admin: 11/01/16 21:18 Dose: 650 mg Collagenase (Santyl) 1 gm TOP BID [facility] Last Admin: 11/16/16 09:14 Dose: 1 applic Al Hydrox/Mg Hydrox/Simethicone 30 ml/Diphenhydramine HCl 75 mg/Lidocaine 30 ml 0 ml PO Q2H PRN PRN Reason: Mouth/Throat Pain Last Admin: 11/07/16 09:00 Dose: 15 ml Diphenhydramine HCl (Benadryl) 25 mg IVP Q4H PRN PRN Reason: Allergy symptoms Last Admin: 11/15/16 01:09 Dose: 25 mg Ergocalciferol (Drisdol 50,000 Intl Units Cap) 1 cap PO Q7D [facility] Last Admin: 11/12/16 15:18 Dose: Not Given Furosemide (Lasix) 20 mg IVP Q12 [facility] Last Admin: 11/16/16 09:03 Dose: 20 mg Home Med (Home Med) 1 unit PO Q12H PRN PRN Reason: Inflammation Last Admin: 10/18/16 11:03 Dose: 1 unit Hydralazine HCl (Apresoline) 10 mg PO Q6H PRN PRN Reason: SBP >170 Last Admin: 11/13/16 03:21 Dose: 10 mg Micafungin Sodium 100 mg/ (Sodium Chloride) 100 mls @ 100 mls/hr IV DAILY [facility] PRN Reason: Protocol Stop: 11/18/16 11:00 Last Admin: 11/16/16 09:09 Dose: 100 mls/hr Hydromorphone HCl (Dilaudid-Hp 1 Mg/Ml Webbing Tacker) 25 mls @ 0.5 mls/hr IV PRN PRN; Protocol PRN Reason: REFERRAL SPECIALIST PER MD ORDER Last Admin: 11/15/16 09:50 Dose: 0.5 mls/hr Potassium Chloride 30 meq/ (Dextrose) 1,015 mls @ 60 mls/hr IV .[id number] [facility] Last Admin: 11/15/16 15:21 Dose: 60 mls/hr Doxycycline Hyclate 100 mg/ (Sodium Chloride) 100 mls @ 100 mls/hr IVPB Q12 [facility] PRN Reason: Protocol Last Admin: 11/16/16 09:08 Dose: 100 mls/hr Metoprolol Tartrate (Lopressor) 5 mg IVP Q6H PRN PRN Reason: Sustained HR > 130 Last Admin: 10/31/16 00:12 Dose: 5 mg Multi-Ingredient Ointment (Hydrophor Oint) 0 gm TOP Q6H PRN PRN Reason: Dry lip Ondansetron HCl (Zofran Inj) 4 mg IVP Q4H PRN PRN Reason: Nausea/Vomiting Last Admin: 11/11/16 07:31 Dose: 4 mg Pantoprazole Sodium (Protonix Inj) 40 mg IVP Q12 [facility] Last Admin: 11/16/16 09:04 Dose: 40 mg Petrolatum (Desitin Maximum Strength Topical 40% Oint) 1 gm TOP Q4H PRN PRN Reason: Rash Last Admin: 10/23/16 22:39 Dose: 1 applic Propranolol HCl (Inderal La) 120 mg PO DAILY [facility] Last Admin: 11/16/16 09:04 Dose: 120 mg Sucralfate (Carafate Oral Susp) 1 gm PO BID [facility] Last Admin: 11/16/16 09:04 Dose: 1 gm Tobramycin Sulfate (Tobrex 0.3% Ophth Soln) 1 drop OU QID [facility] Last Admin: 11/16/16 13:19 Dose: 1 drop Valganciclovir (Valcyte) 900 mg PO DAILY [facility] Last Admin: 11/14/16 11:09 Dose: Not Given - Labs Labs: 11/16/16 05:30 11/16/16 05:30 PT 13.2 Seconds (9.9-11.8) H 11/16/16 08:30 INR 1.22 (0.93-1.08) H 11/16/16 08:30 APTT 32.4 Seconds (23.7-30.8) H 11/16/16 08:30 - Constitutional Appears: Chronically Ill - Head Exam Head Exam: NORMAL INSPECTION, NORMOCEPHALIC - Eye Exam Eye Exam: Normal appearance - Respiratory Exam Respiratory Exam: Rhonchi, NORMAL BREATHING PATTERN - Cardiovascular Exam Cardiovascular Exam: REGULAR RHYTHM, +S1, +S2 - GI/Abdominal Exam GI & Abdominal Exam: Tenderness, Normal Bowel Sounds - Extremities Exam Extremities Exam: Pedal Edema Assessment and Plan (1) Diarrhea Status: Acute (2) Renal failure Status: Acute (3) Abdominal pain Status: Acute (4) Colon tumor Status: Chronic (5) Hypoalbuminemia Status: Acute - Assessment and Plan (Free Text) Assessment: 1: resolved CASANDRA LARGELY PRERENAL AZOTEMIA 2 :SEVERE ANEMIA RECEIVING PRBC'S PRN (3) Abdominal pain Assessment & Plan: 2/2 COLONIC MASS, STENOTIC LESION Status: Acute (4) Colon tumor Assessment & Plan: STAGE IV, BONE METS Status: Chronic (5) Hypoalbuminemia Assessment & Plan: SEVERE MALNUTRITION, NOW WITH FUNGUS IN BLOOD, NO CHOICE BUT TO DISCONTINUE HYPERAL. WILL TAPER OFF, DECREASE TO 40 CC'S PER HOUR TODAY Status: Acute (6) GIB: severe anemia, con't management per GI/Hematology BLEEDING SCAN -VE (7) OVERALL PROGNOSIS IS GRIM, STRONGLY RECOMMEND PALLIATIVE CARE ONLY (8) SEVERE HYPOKALEMIA: CONTINUE AGGRESSIVE K REPLACEMENT (9) Hypomagnesemia : replace, 2GM IVBP
[2016-11-16] MEDS ORDERED: Phytonadione 10 mg/ml Inj (Adult) SC STA (15:59)
[2016-11-16] MEDS: HYDROmorphone 1 mg/ml PCA 25 ML IV PRN (17:38)
[2016-11-16] MEDS: Potassium Chloride 30 MEQ in Sodium Chloride 0.9% 1,000 ML IV SCH (18:26)
--- NOTE | 2016-11-16 19:06 | CP.PCM.PN ---
Subjective - Date & Time of Evaluation Date of Evaluation: 11/16/16 Time of Evaluation: 17:00 - Subjective Subjective: Re assessment for Pre-op Objective - Vital Signs/Intake and Output Vital Signs (last 24 hours): Temp Pulse Resp BP Pulse Ox 98.3 F 98 H 18 133/96 H 20 L 11/16/16 17:48 11/16/16 17:48 11/16/16 17:48 11/16/16 17:48 11/16/16 16:00 Intake and Output: 11/16/16 11/16/16 06:59 18:59 Intake Total 1880 345 Output Total 4200 Balance -2320 345 - Medications Medications: Current Medications Acetaminophen (Tylenol 650 Mg Supp) 650 mg RC Q4H PRN PRN Reason: Fever >100.4 F Last Admin: 11/01/16 21:18 Dose: 650 mg Collagenase (Santyl) 1 gm TOP BID [facility] Last Admin: 11/16/16 18:25 Dose: 1 applic Al Hydrox/Mg Hydrox/Simethicone 30 ml/Diphenhydramine HCl 75 mg/Lidocaine 30 ml 0 ml PO Q2H PRN PRN Reason: Mouth/Throat Pain Last Admin: 11/07/16 09:00 Dose: 15 ml Diphenhydramine HCl (Benadryl) 25 mg IVP Q4H PRN PRN Reason: Allergy symptoms Last Admin: 11/15/16 01:09 Dose: 25 mg Ergocalciferol (Drisdol 50,000 Intl Units Cap) 1 cap PO Q7D [facility] Last Admin: 11/12/16 15:18 Dose: Not Given Furosemide (Lasix) 20 mg IVP Q12 [facility] Last Admin: 11/16/16 09:03 Dose: 20 mg Home Med (Home Med) 1 unit PO Q12H PRN PRN Reason: Inflammation Last Admin: 10/18/16 11:03 Dose: 1 unit Hydralazine HCl (Apresoline) 10 mg PO Q6H PRN PRN Reason: SBP >170 Last Admin: 11/13/16 03:21 Dose: 10 mg Micafungin Sodium 100 mg/ (Sodium Chloride) 100 mls @ 100 mls/hr IV DAILY [facility] PRN Reason: Protocol Stop: 11/18/16 11:00 Last Admin: 11/16/16 09:09 Dose: 100 mls/hr Hydromorphone HCl (Dilaudid-Hp 1 Mg/Ml Registered Health Nurse) 25 mls @ 0.5 mls/hr IV PRN PRN; Protocol PRN Reason: SOFTWARE DATABASE ARCHITECT PER MD ORDER Last Admin: 11/16/16 17:38 Dose: 0.5 mls/hr Doxycycline Hyclate 100 mg/ (Sodium Chloride) 100 mls @ 100 mls/hr IVPB Q12 [facility] PRN Reason: Protocol Last Admin: 11/16/16 09:08 Dose: 100 mls/hr Potassium Chloride 30 meq/ (Sodium Chloride) 1,015 mls @ 125 mls/hr IV .Q8H8M [facility] Last Admin: 11/16/16 18:26 Dose: 125 mls/hr Metoprolol Tartrate (Lopressor) 5 mg IVP Q6H PRN PRN Reason: Sustained HR > 130 Last Admin: 10/31/16 00:12 Dose: 5 mg Multi-Ingredient Ointment (Hydrophor Oint) 0 gm TOP Q6H PRN PRN Reason: Dry lip Ondansetron HCl (Zofran Inj) 4 mg IVP Q4H PRN PRN Reason: Nausea/Vomiting Last Admin: 11/11/16 07:31 Dose: 4 mg Pantoprazole Sodium (Protonix Inj) 40 mg IVP Q12 [facility] Last Admin: 11/16/16 09:04 Dose: 40 mg Petrolatum (Desitin Maximum Strength Topical 40% Oint) 1 gm TOP Q4H PRN PRN Reason: Rash Last Admin: 10/23/16 22:39 Dose: 1 applic Phytonadione (Vitamin K Inj) 10 mg SC ONCE ONE Stop: 11/17/16 05:01 Propranolol HCl (Inderal La) 120 mg PO DAILY [facility] Last Admin: 11/16/16 09:04 Dose: 120 mg Sucralfate (Carafate Oral Susp) 1 gm PO BID [facility] Last Admin: 11/16/16 18:25 Dose: 1 gm Tobramycin Sulfate (Tobrex 0.3% Ophth Soln) 1 drop OU QID [facility] Last Admin: 11/16/16 18:26 Dose: 1 drop Valganciclovir (Valcyte) 900 mg PO DAILY [facility] Last Admin: 11/14/16 11:09 Dose: Not Given - Labs Labs: 11/16/16 05:30 11/16/16 05:30 PT 13.2 Seconds (9.9-11.8) H 11/16/16 08:30 INR 1.22 (0.93-1.08) H 11/16/16 08:30 APTT 32.4 Seconds (23.7-30.8) H 11/16/16 08:30 Assessment and Plan - Assessment and Plan (Free Text) Assessment: As previous Dictation in morning Plan: Dr Mccullough and Dale Raman called for Pre op clearance for colon surgery possible resection of tumour Mass and colostomy" Pt would be high Risk for Surgical intervention" but no Cotraindication for proceduer, in risk benefit ratio if Surgical intervention Benefits outweighs the risk pt can go for surgery with high risk procedure as above Continue willem op Beta elena.
[2016-11-16 21:34] LABS: BLOOD UREA NITROGEN 22 mg/dL (7-21); CALCIUM 7.5 mg/dL (8.4-10.5); GFR AFRICAN-AMERICAN > 60; GFR NON-AFRICAN AMERICAN > 60
[2016-11-17] MEDS ORDERED: Phytonadione 10 mg/ml Inj (Adult) SC ONE (05:00)
[2016-11-17 06:31] LABS: ALB/GLOB RATIO 0.8 (1.1-1.8); ALBUMIN 2.1 g/dL (3.0-4.8); ALT/SGPT 30 U/L (7-56); AST/SGOT 16 U/L (15-39); BLOOD UREA NITROGEN 20 mg/dL (7-21); CALCIUM 7.8 mg/dL (8.4-10.5); GFR AFRICAN-AMERICAN > 60; GFR NON-AFRICAN AMERICAN > 60; MAGNESIUM 1.5 mg/dL (1.7-2.2)
[2016-11-17 06:33] LABS: INR 1.17 (0.93-1.08); PARTIAL THROMBOPLASTIN TIME 32.9 Seconds (23.7-30.8); PROTHROMBIN TIME 12.6 Seconds (9.9-11.8)
[2016-11-17] MEDS ORDERED: Magnesium Sulfate 2 GM in Sodium Chloride 0.9% 100 ML IVPB ONE ×2 (06:45→17:16)
[2016-11-17] MEDS ORDERED: Midazolam 2 MG/2 ML VIAL ONE (06:54)
[2016-11-17] MEDS ORDERED: ePHEDrine 50 mg/ml Inj ONE (06:54)
[2016-11-17] MEDS ORDERED: Propofol 10 mg/ml Inj (20 ML) ONE (06:54)
[2016-11-17] MEDS ORDERED: Phenylephrine 10 mg/ml Inj ONE (06:55)
[2016-11-17 07:33] LABS: EOS # 0.1 (0.0-0.7); EOS % 1.9 % (1.5-5.0); GRAN # 3.97 (1.4-6.5); GRAN % 77.4 % (50.0-68.0); HEMOGLOBIN 8.3 gm/dL (12.0-16.0); LYMPH # 0.7 (1.2-3.4); LYMPH % 13.5 % (22.0-35.0); MEAN CELL VOLUME 93.8 fL (80.0-105.0); MEAN CORPUSCULAR HEMOGLOBIN 32.4 pg (25.0-35.0); MEAN CORPUSCULAR HGB CONC 34.6 g/dl (31.0-37.0); MEAN PLATELET VOLUME 10.8 fl (7.0-11.0); MONO # 0.4 (0.1-0.6); MONO % 7.2 % (1.0-6.0); PLATELET COUNT 72 10^3/uL (120.0-450.0); RBC 2.56 10^6/uL (3.5-6.1); RED CELL DISTRIBUTION WIDTH 19.2 % (11.5-14.5); WHITE BLOOD COUNT 5.1 10^3/ul (4.5-11.0)
[2016-11-17] MEDS ORDERED: DAPTOmycin 500 mg Inj (Cubicin) IV SCH (08:00)
--- NOTE | 2016-11-17 08:23 | CP.PCM.PN ---
Subjective - Date & Time of Evaluation Date of Evaluation: 11/17/16 Time of Evaluation: 07:00 - Subjective Subjective: Pt lying awake being washed by nurses aides prior to EGD then Surgery afterwards as per Eugenio Null and [place], with FFP/Platelets being txfused in prep as required. Pt in NAD w decubitus ulcer noted Objective - Vital Signs/Intake and Output Vital Signs (last 24 hours): Temp Pulse Resp BP Pulse Ox 98.9 F 90 20 139/75 98 11/17/16 06:00 11/17/16 06:00 11/17/16 06:00 11/17/16 06:00 11/17/16 06:00 Intake and Output: 11/17/16 11/17/16 06:59 18:59 Intake Total 670 0 Output Total 400 900 Balance 270 -900 - Medications Medications: Current Medications Acetaminophen (Tylenol 650 Mg Supp) 650 mg RC Q4H PRN PRN Reason: Fever >100.4 F Last Admin: 11/01/16 21:18 Dose: 650 mg Collagenase (Santyl) 1 gm TOP BID ROD[facility]GUEZ Last Admin: 11/16/16 18:25 Dose: 1 applic Al Hydrox/Mg Hydrox/Simethicone 30 ml/Diphenhydramine HCl 75 mg/Lidocaine 30 ml 0 ml PO Q2H PRN PRN Reason: Mouth/Throat Pain Last Admin: 11/07/16 09:00 Dose: 15 ml Daptomycin (Cubicin) 440 mg 6 mg/kg (440 mg) IV Q24H [facility] PRN Reason: Protocol Stop: 11/27/16 08:01 Diphenhydramine HCl (Benadryl) 25 mg IVP Q4H PRN PRN Reason: Allergy symptoms Last Admin: 11/15/16 01:09 Dose: 25 mg Ergocalciferol (Drisdol 50,000 Intl Units Cap) 1 cap PO Q7D [facility]GUE[facility] Last Admin: 11/12/16 15:18 Dose: Not Given Furosemide (Lasix) 20 mg IVP Q12 [facility]GUE[facility] Last Admin: 11/16/16 09:03 Dose: 20 mg Home Med (Home Med) 1 unit PO Q12H PRN PRN Reason: Inflammation Last Admin: 10/18/16 11:03 Dose: 1 unit Hydralazine HCl (Apresoline) 10 mg PO Q6H PRN PRN Reason: SBP >170 Last Admin: 11/13/16 03:21 Dose: 10 mg Micafungin Sodium 100 mg/ (Sodium Chloride) 100 mls @ 100 mls/hr IV DAILY [facility] PRN Reason: Protocol Stop: 11/18/16 11:00 Last Admin: 11/16/16 09:09 Dose: 100 mls/hr Hydromorphone HCl (Dilaudid-Hp 1 Mg/Ml Rural Mail [employer]rier) 25 mls @ 0.5 mls/hr IV PRN PRN; Protocol PRN Reason: OVERHEAD CRANE TECHNICIAN PER MD ORDER Last Admin: 11/16/16 17:38 Dose: 0.5 mls/hr Potassium Chloride 30 meq/ (Sodium Chloride) 1,015 mls @ 125 mls/hr IV .Q8H8M [facility] Last Admin: 11/16/16 18:26 Dose: 125 mls/hr Potassium Chloride (Potassium Chloride 20 Meq/100 Ml) 20 meq in 100 mls @ 50 mls/hr IVPB Q2H [facility] Stop: 11/17/16 10:44 Metoprolol Tartrate (Lopressor) 5 mg IVP Q6H PRN PRN Reason: Sustained HR > 130 Last Admin: 10/31/16 00:12 Dose: 5 mg Multi-Ingredient Ointment (Hydrophor Oint) 0 gm TOP Q6H PRN PRN Reason: Dry lip Ondansetron HCl (Zofran Inj) 4 mg IVP Q4H PRN PRN Reason: Nausea/Vomiting Last Admin: 11/17/16 05:01 Dose: 4 mg Pantoprazole Sodium (Protonix Inj) 40 mg IVP Q12 [facility] Last Admin: 11/16/16 22:35 Dose: 40 mg Petrolatum (Desitin Maximum Strength Topical 40% Oint) 1 gm TOP Q4H PRN PRN Reason: Rash Last Admin: 10/23/16 22:39 Dose: 1 applic Propranolol HCl (Inderal La) 120 mg PO DAILY [facility] Last Admin: 11/16/16 09:04 Dose: 120 mg Sucralfate (Carafate Oral Susp) 1 gm PO BID [facility] Last Admin: 11/16/16 18:25 Dose: 1 gm Tobramycin Sulfate (Tobrex 0.3% Oph Soln) 1 drop OU QID [facility] Last Admin: 11/16/16 22:40 Dose: 1 drop Valganciclovir (Valcyte) 900 mg PO DAILY [facility] Last Admin: 11/14/16 11:09 Dose: Not Given - Labs Labs: 11/17/16 06:00 11/17/16 06:00 PT 12.6 Seconds (9.9-11.8) H 11/17/16 06:00 INR 1.17 (0.93-1.08) H 11/17/16 06:00 APTT 32.9 Seconds (23.7-30.8) H 11/17/16 06:00 - Constitutional Appears: No Acute Distress, Chronically Ill - Head Exam Head Exam: NORMOCEPHALIC - Eye Exam Eye Exam: Normal appearance - ENT Exam ENT Exam: Mucous Membranes Moist - Neck Exam Neck Exam: Normal Inspection - Respiratory Exam Respiratory Exam: Clear to Ausculation Bilateral, NORMAL BREATHING PATTERN - Cardiovascular Exam Cardiovascular Exam: REGULAR RHYTHM - GI/Abdominal Exam GI & Abdominal Exam: Soft - Extremities Exam Extremities Exam: Pedal Edema - Neurological Exam Neurological Exam: Alert, Awake - Skin Additional comments: stage 2/3 decub ulcer sacrum Assessment and Plan (1) Malnutrition Status: Acute (2) Anemia Status: Acute (3) Fungemia Status: Acute (4) Metastasis from colon cancer Status: Acute (5) Thrombocytopenia Status: Acute (6) Abdominal pain Status: Acute (7) Gastrointestinal hemorrhage Status: Acute (8) Decubitus skin ulcer Status: Acute - Assessment and Plan (Free Text) Plan: Pt for palliative procedure today (after pt and her family agreed) as per Dr Mccracken as she continues to require txfusions for chronic blood loss from her rectal cancer, which causes her intractable pain, for which OVERHEAD CRANE TECHNICIAN narcotics are needed. Her diet has been only liquids since she was admitted 39 days ago w hyperal continuing. Blood and blood products to be used as indicated with the pts prog guarded. Post op pt to go to ICU.
[2016-11-17 08:48] LABS: PLATELET COUNT MANUAL 72 K/mm3 (120-450)
[2016-11-17 09:00] LABS: FIBRINOGEN 295.9 mg/dL (187-400)
--- NOTE | 2016-11-17 10:05 | CARD ---
APPROVED REPORT EKG Measurement Heart [id number] <Conclusion> Normal sinus rhythm Normal ECG C/W ECG 10/09/16: the rate has decreased, repolarization is normal
[2016-11-17] MEDS ORDERED: Liquid Adhesive TOP ONE (10:07)
--- NOTE | 2016-11-17 10:15 | CP.PCM.PN ---
Subjective - Date & Time of Evaluation Date of Evaluation: 11/17/16 Time of Evaluation: 10:00 - Subjective Subjective: Awake, alert Going to OR for laparotomy/possible tumor resection,colostomy Objective - Vital Signs/Intake and Output Vital Signs (last 24 hours): Temp Pulse Resp BP Pulse Ox 98.9 F 90 20 139/75 98 11/17/16 06:00 11/17/16 06:00 11/17/16 06:00 11/17/16 06:00 11/17/16 07:11 Intake and Output: 11/17/16 11/17/16 06:59 18:59 Intake Total 670 0 Output Total 400 900 Balance 270 -900 - Medications Medications: Current Medications Acetaminophen (Tylenol 650 Mg Supp) 650 mg RC Q4H PRN PRN Reason: Fever >100.4 F Last Admin: 11/01/16 21:18 Dose: 650 mg Collagenase (Santyl) 1 gm TOP BID RODRÍGUEZ Last Admin: 11/16/16 18:25 Dose: 1 applic Al Hydrox/Mg Hydrox/Simethicone 30 ml/Diphenhydramine HCl 75 mg/Lidocaine 30 ml 0 ml PO Q2H PRN PRN Reason: Mouth/Throat Pain Last Admin: 11/07/16 09:00 Dose: 15 ml Diphenhydramine HCl (Benadryl) 25 mg IVP Q4H PRN PRN Reason: Allergy symptoms Last Admin: 11/15/16 01:09 Dose: 25 mg Ergocalciferol (Drisdol 50,000 Intl Units Cap) 1 cap PO Q7D [facility]UE[facility] Last Admin: 11/12/16 15:18 Dose: Not Given Furosemide (Lasix) 20 mg IVP Q12 [facility]UE[facility] Last Admin: 11/16/16 09:03 Dose: 20 mg Home Med (Home Med) 1 unit PO Q12H PRN PRN Reason: Inflammation Last Admin: 10/18/16 11:03 Dose: 1 unit Hydralazine HCl (Apresoline) 10 mg PO Q6H PRN PRN Reason: SBP >170 Last Admin: 11/13/16 03:21 Dose: 10 mg Micafungin Sodium 100 mg/ (Sodium Chloride) 100 mls @ 100 mls/hr IV DAILY [facility] PRN Reason: Protocol Stop: 11/18/16 11:00 Last Admin: 11/16/16 09:09 Dose: 100 mls/hr Hydromorphone HCl (Dilaudid-Hp 1 Mg/Ml Hotel Front Desk Agent) 25 mls @ 0.5 mls/hr IV PRN PRN; Protocol PRN Reason: PATHOLOGY SECRETARY PER MD ORDER Last Admin: 11/16/16 17:38 Dose: 0.5 mls/hr Potassium Chloride 30 meq/ (Sodium Chloride) 1,015 mls @ 125 mls/hr IV .Q8H8M [facility] Last Admin: 11/16/16 18:26 Dose: 125 mls/hr Potassium Chloride (Potassium Chloride 20 Meq/100 Ml) 20 meq in 100 mls @ 50 mls/hr IVPB Q2H [facility] Stop: 11/17/16 10:44 Daptomycin 440 mg/ Sodium (Chloride) 100 mls @ 200 mls/hr IV Q24H [facility] Stop: 11/27/16 09:01 Metoprolol Tartrate (Lopressor) 5 mg IVP Q6H PRN PRN Reason: Sustained HR > 130 Last Admin: 10/31/16 00:12 Dose: 5 mg Multi-Ingredient Ointment (Hydrophor Oint) 0 gm TOP Q6H PRN PRN Reason: Dry lip Ondansetron HCl (Zofran Inj) 4 mg IVP Q4H PRN PRN Reason: Nausea/Vomiting Last Admin: 11/17/16 05:01 Dose: 4 mg Pantoprazole Sodium (Protonix Inj) 40 mg IVP Q12 [facility] Last Admin: 11/16/16 22:35 Dose: 40 mg Petrolatum (Desitin Maximum Strength Topical 40% Oint) 1 gm TOP Q4H PRN PRN Reason: Rash Last Admin: 10/23/16 22:39 Dose: 1 applic Propranolol HCl (Inderal La) 120 mg PO DAILY [facility] Last Admin: 11/16/16 09:04 Dose: 120 mg Sucralfate (Carafate Oral Susp) 1 gm PO BID [facility] Last Admin: 11/16/16 18:25 Dose: 1 gm Tobramycin Sulfate (Tobrex 0.3% Ophth Soln) 1 drop OU QID [facility] Last Admin: 11/16/16 22:40 Dose: 1 drop Valganciclovir (Valcyte) 900 mg PO DAILY [facility] Last Admin: 11/14/16 11:09 Dose: Not Given - Labs Labs: 11/17/16 06:00 11/17/16 06:00 PT 12.6 Seconds (9.9-11.8) H 11/17/16 06:00 INR 1.17 (0.93-1.08) H 11/17/16 06:00 APTT 32.9 Seconds (23.7-30.8) H 11/17/16 06:00 - Constitutional Appears: Chronically Ill - Head Exam Head Exam: ATRAUMATIC, NORMOCEPHALIC - Eye Exam Eye Exam: Normal appearance - ENT Exam ENT Exam: Mucous Membranes Dry - Respiratory Exam Respiratory Exam: NORMAL BREATHING PATTERN - Cardiovascular Exam Cardiovascular Exam: REGULAR RHYTHM, +S1, +S2 - GI/Abdominal Exam GI & Abdominal Exam: Soft, Tenderness, Normal Bowel Sounds - Extremities Exam Extremities Exam: Pedal Edema Assessment and Plan (1) Colon tumor Status: Chronic (2) Hypoalbuminemia Status: Acute - Assessment and Plan (Free Text) Assessment: SEVERE MALNUTRITION, NOW WITH FUNGUS IN BLOOD, Status: Acute (3) GIB: severe anemia, con't management per GI/Hematology BLEEDING SCAN -VE (4) OVERALL PROGNOSIS IS GRIM, STRONGLY RECOMMEND PALLIATIVE CARE ONLY (5) SEVERE HYPOKALEMIA: CONTINUE AGGRESSIVE K REPLACEMENT, KCL 20meq X2 (6) Hypomagnesemia :s/p replacement, 2GM IVBP (7) Scheduled for palliative surgery
[2016-11-17] MEDS ORDERED: Dexmedetomidine HCl 4mcg/ml 400 MCG/100 ML BOTTLE IV PRN (11:55)
--- NOTE | 2016-11-17 12:21 | PCM.SURG1 ---
Surgeon's Initial Post Op Note - Surgeon's Notes Surgeon: Dr. Mccracken Fox Farmer: Dr. Galeas PGY3; Dr. Lucio PGY1; Dr. Carlson PGY1 Type of Anesthesia: General Endo Anesthesia Administered By: Pacheco Pre-Operative Diagnosis: Colon CA/GI Bleed Operative Findings: see operative report Post-Operative Diagnosis: Colon CA, GI Bleed, SBO Operation Performed: Exploratory Laparotomy. Extensive lysis of adhesions. Repair of small bowel enterotomy. Partial Sigmoidectomy with End colostomy ( Marquita's) Specimen/Specimens Removed: sigmoid colon Estimated Blood Loss: EBL {In ML}: 500 Blood Products Given: PRBC (2U), Platlets (2U) Drains Used: Power, Ostomy Device Post-Op Condition: Fair Date of Surgery/Procedure: 11/17/16 Time of Surgery/Procedure: 08:00
--- NOTE | 2016-11-17 12:31 | CP.PCM.PN ---
<Jossie Farnsworth - Last Filed: 11/17/16 16:36> Subjective - Date & Time of Evaluation Date of Evaluation: 11/17/16 Time of Evaluation: 12:27 - Subjective Subjective: Patient seen and examined at bedside. Patient is intubated. Objective - Vital Signs/Intake and Output Vital Signs (last 24 hours): Temp Pulse Resp BP Pulse Ox 98.9 F 90 20 139/75 98 11/17/16 06:00 11/17/16 06:00 11/17/16 06:00 11/17/16 06:00 11/17/16 07:11 Intake and Output: 11/17/16 11/17/16 06:59 18:59 Intake Total 670 0 Output Total 400 900 Balance 270 -900 - Medications Medications: Current Medications Acetaminophen (Tylenol 650 Mg Supp) 650 mg RC Q4H PRN PRN Reason: Fever >100.4 F Last Admin: 11/01/16 21:18 Dose: 650 mg Collagenase (Santyl) 1 gm TOP BID RODRÍGUEZ Last Admin: 11/16/16 18:25 Dose: 1 applic Al Hydrox/Mg Hydrox/Simethicone 30 ml/Diphenhydramine HCl 75 mg/Lidocaine 30 ml 0 ml PO Q2H PRN PRN Reason: Mouth/Throat Pain Last Admin: 11/07/16 09:00 Dose: 15 ml Diphenhydramine HCl (Benadryl) 25 mg IVP Q4H PRN PRN Reason: Allergy symptoms Last Admin: 11/15/16 01:09 Dose: 25 mg Ergocalciferol (Drisdol 50,000 Intl Units Cap) 1 cap PO Q7D [facility]GUE[facility] Last Admin: 11/12/16 15:18 Dose: Not Given Furosemide (Lasix) 20 mg IVP Q12 [facility] Last Admin: 11/16/16 09:03 Dose: 20 mg Heparin Sodium (Porcine) (Heparin) 5,000 units SC Q12 [facility]GUE[facility] PRN Reason: Protocol Home Med (Home Med) 1 unit PO Q12H PRN PRN Reason: Inflammation Last Admin: 10/18/16 11:03 Dose: 1 unit Hydralazine HCl (Apresoline) 10 mg PO Q6H PRN PRN Reason: SBP >170 Last Admin: 11/13/16 03:21 Dose: 10 mg Micafungin Sodium 100 mg/ (Sodium Chloride) 100 mls @ 100 mls/hr IV DAILY [facility] PRN Reason: Protocol Stop: 11/18/16 11:00 Last Admin: 11/16/16 09:09 Dose: 100 mls/hr Hydromorphone HCl (Dilaudid-Hp 1 Mg/Ml Sales Contract Administrator) 25 mls @ 0.5 mls/hr IV PRN PRN; Protocol PRN Reason: REAMING MACHINE OPERATOR FOR PLASTIC PER MD ORDER Last Admin: 11/16/16 17:38 Dose: 0.5 mls/hr Potassium Chloride 30 meq/ (Sodium Chloride) 1,015 mls @ 125 mls/hr IV .Q8H8M [facility] Last Admin: 11/16/16 18:26 Dose: 125 mls/hr Daptomycin 440 mg/ Sodium (Chloride) 100 mls @ 200 mls/hr IV Q24H [facility] Stop: 11/27/16 09:01 Dexmedetomidine HCl (Precedex 4 Mcg/Ml (100 Ml)) 400 mcg in 100 mls @ 3.629 mls /hr IV .Q24H PRN; Protocol; 0.2 MCG/KG/HR PRN Reason: Agitation Metoprolol Tartrate (Lopressor) 5 mg IVP Q6H PRN PRN Reason: Sustained HR > 130 Last Admin: 10/31/16 00:12 Dose: 5 mg Multi-Ingredient Ointment (Hydrophor Oint) 0 gm TOP Q6H PRN PRN Reason: Dry lip Ondansetron HCl (Zofran Inj) 4 mg IVP Q4H PRN PRN Reason: Nausea/Vomiting Last Admin: 11/17/16 05:01 Dose: 4 mg Pantoprazole Sodium (Protonix Inj) 40 mg IVP Q12 [facility] Last Admin: 11/16/16 22:35 Dose: 40 mg Petrolatum (Desitin Maximum Strength Topical 40% Oint) 1 gm TOP Q4H PRN PRN Reason: Rash Last Admin: 10/23/16 22:39 Dose: 1 applic Propranolol HCl (Inderal La) 120 mg PO DAILY [facility] Last Admin: 11/16/16 09:04 Dose: 120 mg Sucralfate (Carafate Oral Susp) 1 gm PO BID [facility] Last Admin: 11/16/16 18:25 Dose: 1 gm Tobramycin Sulfate (Tobrex 0.3% Oph Soln) 1 drop OU QID [facility] Last Admin: 11/16/16 22:40 Dose: 1 drop Valganciclovir (Valcyte) 900 mg PO DAILY [facility] Last Admin: 11/14/16 11:09 Dose: Not Given - Labs Labs: 11/17/16 06:00 11/17/16 06:00 PT 12.6 Seconds (9.9-11.8) H 11/17/16 06:00 INR 1.17 (0.93-1.08) H 11/17/16 06:00 APTT 32.9 Seconds (23.7-30.8) H 11/17/16 06:00 - Constitutional Appears: Non-toxic, No Acute Distress - Head Exam Head Exam: ATRAUMATIC, NORMOCEPHALIC - Eye Exam Eye Exam: Normal appearance - Neck Exam Neck Exam: Normal Inspection. absent: Tenderness - Respiratory Exam Respiratory Exam: absent: Accessory Muscle Use, Chest Wall Tenderness Additional comments: On ventilator, - Cardiovascular Exam Cardiovascular Exam: RRR, +S1, +S2 - GI/Abdominal Exam GI & Abdominal Exam: Soft Additional comments: Post-surgical changes. Colostomy bag shows clotted blood. - Rectal Exam Rectal Exam: Deferred - Skin Skin Exam: Intact, Normal Color Additional comments: noticeable swelling in hands Assessment and Plan - Assessment and Plan (Free Text) Assessment: Ms Sherie Gibson is a 61 year old female with end-stage colorectal cancer who underwent an exploratory Laparotomy was perfomed as a palliative measure; including, but not limited to lysis of bowel adhesions, repair of a small bowel enterotomy, and sigmoidectomy with an end Colostomy. S requiring replacements with FFP, PRBC, other hematologic products, and has suffered from an array of complications related to her cancer and other comorbidities. She is admitted now to the ICU for replacing blood loss and eventual extubation. Plan: Ms Sherie Gibson is a 61 year old female who underwent a palliative colostomy for end-stage, stage-IV colorectal cancer. In the past month she has had an GI bleeding requiring replacements with FFP, PRBC, other hematologic products, and has suffered from an array of complications related to her cancer and other comorbidities. She is admitted now to the ICU for replacing her blood loss and monitoring extubation that would not be appropriate if attempted in the PACU. Neurologic: Patient is sedated on Dexmedetomidine drip. Cardiovascular: Pre-procedurally, patient was tropnin negative. Must Pulmonary: Ventilator settings are a 40% FiO2, 5 PEEP, 15 RR, 400 TV. GI: Patient has multiple sources of bleeding in the GI tract, is post-operative from the above mentioned surgery, and may have a SBO. General surgery will manage nutrition of this patient. ID: Patient has had Susy Albicans fungemia as well as Staph Aureus and streptococci agalactie bactermia evidenced by cultures. She has needed treatment for these with Micafungin and Daptomycin, respectively. If fever, chills, or severe neutropenia result we may empiracally initiate these treatments. She has been on valgangciclovir for CMV esophagitis. Hematology: Replacing Clotting factors with FFP, Platelets with leukoreduced ___ ___, and RBCs with PRBCs per protocol. Potassium is low, will need to monitor and replace with a rate no greater than 20 meQ/hr, I believe. Mg is low, Endocrine: Consider stress hormone replacement ??? <Taryn MARCELINO,Stacey H - Last Filed: 11/17/16 18:22> Objective - Vital Signs/Intake and Output Vital Signs (last 24 hours): Temp Pulse Resp BP Pulse Ox 98.2 F 87 20 139/75 98 11/17/16 12:00 11/17/16 06:00 11/17/16 06:00 11/17/16 06:00 11/17/16 07:11 Intake and Output: 11/17/16 11/17/16 06:59 18:59 Intake Total 670 0 Output Total 400 900 Balance 270 -900 - Medications Medications: Current Medications Acetaminophen (Tylenol 650 Mg Supp) 650 mg RC Q4H PRN PRN Reason: Fever >100.4 F Last Admin: 11/01/16 21:18 Dose: 650 mg Collagenase (Santyl) 1 gm TOP BID RODRÍGUEZ Last Admin: 11/16/16 18:25 Dose: 1 applic Al Hydrox/Mg Hydrox/Simethicone 30 ml/Diphenhydramine HCl 75 mg/Lidocaine 30 ml 0 ml PO Q2H PRN PRN Reason: Mouth/Throat Pain Last Admin: 11/07/16 09:00 Dose: 15 ml Diphenhydramine HCl (Benadryl) 25 mg IVP Q4H PRN PRN Reason: Allergy symptoms Last Admin: 11/15/16 01:09 Dose: 25 mg Ergocalciferol (Drisdol 50,000 Intl Units Cap) 1 cap PO Q7D [facility] Last Admin: 11/12/16 15:18 Dose: Not Given Furosemide (Lasix) 20 mg IVP Q12 [facility]UE[facility] Last Admin: 11/16/16 09:03 Dose: 20 mg Home Med (Home Med) 1 unit PO Q12H PRN PRN Reason: Inflammation Last Admin: 10/18/16 11:03 Dose: 1 unit Hydralazine HCl (Apresoline) 10 mg PO Q6H PRN PRN Reason: SBP >170 Last Admin: 11/13/16 03:21 Dose: 10 mg Micafungin Sodium 100 mg/ (Sodium Chloride) 100 mls @ 100 mls/hr IV DAILY [facility] PRN Reason: Protocol Stop: 11/18/16 11:00 Last Admin: 11/16/16 09:09 Dose: 100 mls/hr Hydromorphone HCl (Dilaudid-Hp 1 Mg/Ml Sales Contract Administrator) 25 mls @ 0.5 mls/hr IV PRN PRN; Protocol PRN Reason: 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 MACHINE 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 FOR PLASTIC PER MD ORDER Last Admin: 11/16/16 17:38 Dose: 0.5 mls/hr Potassium Chloride 30 meq/ (Sodium Chloride) 1,015 mls @ 125 mls/hr IV .Q8H8M [facility] Last Admin: 11/17/16 15:51 Dose: 125 mls/hr Daptomycin 440 mg/ Sodium (Chloride) 100 mls @ 200 mls/hr IV Q24H [facility] Stop: 11/27/16 09:01 Dexmedetomidine HCl (Precedex 4 Mcg/Ml (100 Ml)) 400 mcg in 100 mls @ 3.629 mls /hr IV .Q24H PRN; Protocol; 0.2 MCG/KG/HR PRN Reason: Agitation Magnesium Sulfate 2 gm/ Sodium (Chloride) 104 mls @ 102 mls/hr IVPB ONCE ONE Stop: 11/17/16 18:17 Last Admin: 11/17/16 17:47 Dose: 102 mls/hr Potassium Chloride (Potassium Chloride 20 Meq/100 Ml) 20 meq in 100 mls @ 50 mls/hr IVPB Q2H [facility] Stop: 11/17/16 21:29 Last Admin: 11/17/16 17:45 Dose: 50 mls/hr Potassium Chloride (Potassium Chloride 10 Meq/100 Ml) 10 meq in 100 mls @ 100 mls/hr IVPB ONCE ONE Stop: 11/17/16 23:29 Metoprolol Tartrate (Lopressor) 5 mg IVP Q6H PRN PRN Reason: Sustained HR > 130 Last Admin: 10/31/16 00:12 Dose: 5 mg Multi-Ingredient Ointment (Hydrophor Oint) 0 gm TOP Q6H PRN PRN Reason: Dry lip Ondansetron HCl (Zofran Inj) 4 mg IVP Q4H PRN PRN Reason: Nausea/Vomiting Last Admin: 11/17/16 05:01 Dose: 4 mg Pantoprazole Sodium (Protonix Inj) 40 mg IVP Q12 [facility] Last Admin: 11/16/16 22:35 Dose: 40 mg Petrolatum (Desitin Maximum Strength Topical 40% Oint) 1 gm TOP Q4H PRN PRN Reason: Rash Last Admin: 10/23/16 22:39 Dose: 1 applic Propranolol HCl (Inderal La) 120 mg PO DAILY [facility] Last Admin: 11/16/16 09:04 Dose: 120 mg Sucralfate (Carafate Oral Susp) 1 gm PO BID [facility] Last Admin: 11/16/16 18:25 Dose: 1 gm Valganciclovir (Valcyte) 900 mg PO DAILY [facility] Last Admin: 11/14/16 11:09 Dose: Not Given - Labs Labs: 11/17/16 13:34 11/17/16 14:20 PT 12.6 Seconds (9.9-11.8) H 11/17/16 06:00 INR 1.17 (0.93-1.08) H 11/17/16 06:00 APTT 32.9 Seconds (23.7-30.8) H 11/17/16 06:00 Attending/Attestation - Attestation I have personally seen and examined this patient.: Yes I have fully participated in the care of the patient.: Yes I have reviewed all pertinent clinical information, including history, physical exam and plan: Yes Notes (Text): 11/17/16 18:12 61 y/o F w/ Colon Ca s/p Colostomy , sigmoid resection and NATE. Intubated for OR. Currently on SBT trial planning to extubate shortly . On ABX for several infections in the past followed by ID. Currently afebrile and WBC stable. Transfused PRBC, Platelets and FFP. Keep HGB>7 Platelets > 50k and INR<2 Pain management per ONC. Monitor mental status . Monitor ostomy output and melena . Surgery following post op site and DEEJAY output. dvt p SCD PPI cc time 65 min
--- NOTE | 2016-11-17 13:09 | RAD ---
HISTORY: post op COMPARISON: 10/28/2016 FINDINGS: LUNGS: No active pulmonary disease. PLEURA: No significant pleural effusion identified, no pneumothorax apparent. CARDIOVASCULAR: Normal. OSSEOUS STRUCTURES: No significant abnormalities. VISUALIZED UPPER ABDOMEN: Normal. OTHER FINDINGS: Endotracheal and nasogastric tubes in satisfactory position. Left-sided central line terminates in SVC at the atrial junction IMPRESSION: No active disease.
[2016-11-17 13:14] LABS: ARTERIAL BLOOD GAS HCO3 30.4 mmol/L (21-28); ARTERIAL BLOOD GAS HEMOGLOBIN 11.5 g/dL (11.7-17.4); ARTERIAL BLOOD GAS O2 CONTENT 16.9 ML/dl (15-23); ARTERIAL BLOOD GAS O2 SAT 99.7 % (95-98); ARTERIAL BLOOD GAS PCO2 34 mm/Hg (35-45); ARTERIAL BLOOD GAS TCO2 31.4 mmol.L (22-28)
[2016-11-17 13:17] LABS: ARTERIAL BLOOD GAS PH 7.56 (7.35-7.45)
[2016-11-17 13:48] LABS: ALB/GLOB RATIO 0.7 (1.1-1.8); ALT/SGPT 28 U/L (7-56); AST/SGOT 18 U/L (15-39); BLOOD UREA NITROGEN 19 mg/dL (7-21); CALCIUM 7.3 mg/dL (8.4-10.5); GFR AFRICAN-AMERICAN > 60; GFR NON-AFRICAN AMERICAN > 60
[2016-11-17 14:17] LABS: MAGNESIUM 1.3 mg/dL (1.7-2.2)
[2016-11-17 14:22] LABS: HEMOGLOBIN 11.6 gm/dL (12.0-16.0); MEAN CELL VOLUME 89.1 fL (80.0-105.0); MEAN CORPUSCULAR HEMOGLOBIN 30.9 pg (25.0-35.0); MEAN CORPUSCULAR HGB CONC 34.6 g/dl (31.0-37.0); MEAN PLATELET VOLUME 9.8 fl (7.0-11.0); RBC 3.76 10^6/uL (3.5-6.1); RED CELL DISTRIBUTION WIDTH 15.7 % (11.5-14.5); WHITE BLOOD COUNT 6.2 10^3/ul (4.5-11.0)
[2016-11-17 14:39] LABS: ALB/GLOB RATIO 0.8 (1.1-1.8); ALT/SGPT 26 U/L (7-56); AST/SGOT 18 U/L (15-39); BLOOD UREA NITROGEN 19 mg/dL (7-21); CALCIUM 7.2 mg/dL (8.4-10.5); GFR AFRICAN-AMERICAN > 60; GFR NON-AFRICAN AMERICAN > 60
[2016-11-17] MEDS: Potassium Chloride 30 MEQ in Sodium Chloride 0.9% 1,000 ML IV SCH (15:51)
[2016-11-17] MEDS: Sucralfate 1 gm/10 ml Oral Susp UD PO SCH (18:11)
[2016-11-17 22:00] LABS: BLOOD UREA NITROGEN 20 mg/dL (7-21); CALCIUM 7.2 mg/dL (8.4-10.5); GFR AFRICAN-AMERICAN > 60; GFR NON-AFRICAN AMERICAN > 60
[2016-11-17 22:28] LABS: HEMOGLOBIN 11.5 gm/dL (12.0-16.0); MEAN CELL VOLUME 90.1 fL (80.0-105.0); MEAN CORPUSCULAR HEMOGLOBIN 31.6 pg (25.0-35.0); MEAN CORPUSCULAR HGB CONC 35.1 g/dl (31.0-37.0); MEAN PLATELET VOLUME 9.9 fl (7.0-11.0); RBC 3.64 10^6/uL (3.5-6.1); WHITE BLOOD COUNT 7.6 10^3/ul (4.5-11.0)
[2016-11-18] MEDS: Potassium Chloride 30 MEQ in Sodium Chloride 0.9% 1,000 ML IV SCH (05:04)
[2016-11-18 06:42] LABS: ALB/GLOB RATIO 0.8 (1.1-1.8); ALT/SGPT 24 U/L (7-56); AST/SGOT 15 U/L (15-39); BLOOD UREA NITROGEN 19 mg/dL (7-21); CALCIUM 7.4 mg/dL (8.4-10.5); GFR AFRICAN-AMERICAN > 60; GFR NON-AFRICAN AMERICAN > 60; MAGNESIUM 1.7 mg/dL (1.7-2.2)
[2016-11-18] MEDS: HYDROmorphone 1 mg/ml PCA 25 ML IV PRN (07:53)
[2016-11-18 08:34] LABS: BASO # 0.01 K/mm3 (0.0-2.0); BASO % 0.1 % (0.0-3.0); EOS % 0.5 % (1.5-5.0); GRAN % 88.4 % (50.0-68.0); HEMOGLOBIN 10.4 gm/dL (12.0-16.0); LYMPH # 0.5 (1.2-3.4); LYMPH % 6.4 % (22.0-35.0); MEAN CELL VOLUME 90.9 fL (80.0-105.0); MEAN CORPUSCULAR HEMOGLOBIN 30.4 pg (25.0-35.0); MEAN CORPUSCULAR HGB CONC 33.4 g/dl (31.0-37.0); MEAN PLATELET VOLUME 10.7 fl (7.0-11.0); MONO # 0.4 (0.1-0.6); MONO % 4.6 % (1.0-6.0); PLATELET COUNT 104 10^3/uL (120.0-450.0); RBC 3.42 10^6/uL (3.5-6.1); RED CELL DISTRIBUTION WIDTH 16.6 % (11.5-14.5)
[2016-11-18 08:44] LABS: PLATELET COUNT MANUAL 112 K/mm3 (120-450)
--- NOTE | 2016-11-18 09:09 | CP.PCM.PN ---
<Vipul Smith Dale - Last Filed: 11/18/16 09:12> Subjective - Date & Time of Evaluation Date of Evaluation: 11/18/16 Time of Evaluation: 09:06 - Subjective Subjective: Gen Sx: Dr Mccracken Pt S&E. Pt extubated yesterday evening. Reports pain is significant and poorly controlled with MEDICAL TECHNOLOGIST MICROBIOLOGY. Denies any N/V, F/C. Weakness improved. Very thirsty. Salazar 1000cc/12 hrs NGT 150 billous Colostomy 800cc thick black stool Objective - Vital Signs/Intake and Output Vital Signs (last 24 hours): Temp Pulse Resp BP Pulse Ox 97.7 F 104 H 18 153/89 H 100 11/18/16 08:00 11/18/16 08:00 11/18/16 08:00 11/18/16 08:00 11/18/16 08:00 Intake and Output: 11/18/16 11/18/16 06:59 18:59 Intake Total 2120 Output Total 1850 160 Balance 270 -160 - Medications Medications: Current Medications Acetaminophen (Tylenol 650 Mg Supp) 650 mg RC Q4H PRN PRN Reason: Fever >100.4 F Last Admin: 11/01/16 21:18 Dose: 650 mg Collagenase (Santyl) 1 gm TOP BID [facility] Last Admin: 11/16/16 18:25 Dose: 1 applic Al Hydrox/Mg Hydrox/Simethicone 30 ml/Diphenhydramine HCl 75 mg/Lidocaine 30 ml 0 ml PO Q2H PRN PRN Reason: Mouth/Throat Pain Last Admin: 11/07/16 09:00 Dose: 15 ml Diphenhydramine HCl (Benadryl) 25 mg IVP Q4H PRN PRN Reason: Allergy symptoms Last Admin: 11/15/16 01:09 Dose: 25 mg Ergocalciferol (Drisdol 50,000 Intl Units Cap) 1 cap PO Q7D [facility] Last Admin: 11/12/16 15:18 Dose: Not Given Furosemide (Lasix) 20 mg IVP Q12 [facility] Last Admin: 11/16/16 09:03 Dose: 20 mg Home Med (Home Med) 1 unit PO Q12H PRN PRN Reason: Inflammation Last Admin: 10/18/16 11:03 Dose: 1 unit Hydralazine HCl (Apresoline) 10 mg PO Q6H PRN PRN Reason: SBP >170 Last Admin: 11/13/16 03:21 Dose: 10 mg Micafungin Sodium 100 mg/ (Sodium Chloride) 100 mls @ 100 mls/hr IV DAILY [facility] PRN Reason: Protocol Stop: 11/18/16 11:00 Last Admin: 11/16/16 09:09 Dose: 100 mls/hr Hydromorphone HCl (Dilaudid-Hp 1 Mg/Ml Sweep Molder) 25 mls @ 0.5 mls/hr IV PRN PRN; Protocol PRN Reason: MEDICAL TECHNOLOGIST MICROBIOLOGY PER MD ORDER Last Admin: 11/18/16 07:53 Dose: 0.5 mls/hr Daptomycin 440 mg/ Sodium (Chloride) 100 mls @ 200 mls/hr IV Q24H [facility] Stop: 11/27/16 09:01 Dexmedetomidine HCl (Precedex 4 Mcg/Ml (100 Ml)) 400 mcg in 100 mls @ 3.629 mls /hr IV .Q24H PRN; Protocol; 0.2 MCG/KG/HR PRN Reason: Agitation Potassium Chloride 40 meq/ (Dextrose/Sodium Chloride) 1,020 mls @ 100 mls/hr IV .[id number] [facility] Acetaminophen (Ofirmev) 1,000 mg in 100 mls @ 400 mls/hr IVPB Q6H PRN PRN Reason: Pain, moderate (4-7) Stop: 11/20/16 08:47 Metoprolol Tartrate (Lopressor) 5 mg IVP Q6H PRN PRN Reason: Sustained HR > 130 Last Admin: 10/31/16 00:12 Dose: 5 mg Multi-Ingredient Ointment (Hydrophor Oint) 0 gm TOP Q6H PRN PRN Reason: Dry lip Ondansetron HCl (Zofran Inj) 4 mg IVP Q4H PRN PRN Reason: Nausea/Vomiting Last Admin: 11/17/16 05:01 Dose: 4 mg Pantoprazole Sodium (Protonix Inj) 40 mg IVP Q12 [facility] Last Admin: 11/17/16 22:06 Dose: 40 mg Petrolatum (Desitin Maximum Strength Topical 40% Oint) 1 gm TOP Q4H PRN PRN Reason: Rash Last Admin: 10/23/16 22:39 Dose: 1 applic Propranolol HCl (Inderal La) 120 mg PO DAILY [facility] Last Admin: 11/16/16 09:04 Dose: 120 mg Sucralfate (Carafate Oral Susp) 1 gm PO BID [facility] Last Admin: 11/17/16 18:11 Dose: Not Given Valganciclovir (Valcyte) 900 mg PO DAILY [facility] Last Admin: 11/14/16 11:09 Dose: Not Given - Labs Labs: 11/18/16 06:10 11/18/16 06:10 PT 12.6 Seconds (9.9-11.8) H 11/17/16 06:00 INR 1.17 (0.93-1.08) H 11/17/16 06:00 APTT 32.9 Seconds (23.7-30.8) H 11/17/16 06:00 - Constitutional Appears: Non-toxic - Respiratory Exam Respiratory Exam: absent: Accessory Muscle Use, Respiratory Distress - Cardiovascular Exam Cardiovascular Exam: REGULAR RHYTHM. absent: Tachycardia - GI/Abdominal Exam GI & Abdominal Exam: Soft, Tenderness. absent: Distended, Firm, Guarding Additional comments: dressing c/d/i hortencia ~350 serosanguinous - Neurological Exam Neurological Exam: Alert, Awake, Oriented x3 - Psychiatric Exam Psychiatric exam: Normal Affect, Normal Mood - Skin Skin Exam: Normal Color, Warm Assessment and Plan - Assessment and Plan (Free Text) Assessment: 61F POD#1 s/p ex-lap with Radha'obie Plan: closely monitor H/H and CMP will cont NGT for now IV fluids switched to d5 1/2NS due to hypernatremia Ofirmev added for additional pain control 1g Q6H MEDICAL TECHNOLOGIST MICROBIOLOGY as per Dr Hendricks Continue to encourage incentive spirometer use will d/w Dr Kaykay Smith, PGY3 <Yoan Mccracken - Last Filed: 12/02/16 23:54> Objective - Vital Signs/Intake and Output Vital Signs (last 24 hours): Temp Pulse Resp BP Pulse Ox 97.8 F 101 H 18 170/89 H 100 12/02/16 16:00 12/02/16 16:00 12/02/16 16:00 12/02/16 16:00 12/02/16 16:00 Intake and Output: 12/02/16 12/03/16 18:59 06:59 Intake Total 120 Output Total 450 600 Balance -450 -480 - Medications Medications: Current Medications Acetaminophen (Tylenol 650 Mg Supp) 650 mg RC Q4H PRN PRN Reason: Fever >100.4 F Last Admin: 11/01/16 21:18 Dose: 650 mg Al Hydrox/Mg Hydrox/Simethicone 30 ml/Diphenhydramine HCl 75 mg/Lidocaine 30 ml 0 ml PO QID [facility] Last Admin: 12/02/16 21:01 Dose: Not Given Diphenhydramine HCl (Benadryl) 50 mg IVP HS PRN PRN Reason: Insomnia Last Admin: 11/27/16 01:00 Dose: 50 mg Ergocalciferol (Drisdol 50,000 Intl Units Cap) 1 cap PO Q7D [facility] Last Admin: 11/19/16 18:04 Dose: Not Given Ferrous Sulfate (Feosol) 324 mg PO TID [facility] Last Admin: 12/02/16 18:16 Dose: Not Given Fluconazole (Diflucan) 200 mg PO DAILY [facility] PRN Reason: Protocol Stop: 12/12/16 10:01 Last Admin: 12/02/16 09:44 Dose: Not Given Home Med (Home Med) 1 unit PO Q12H PRN PRN Reason: Inflammation Last Admin: 10/18/16 11:03 Dose: 1 unit Hydralazine HCl (Apresoline) 10 mg IVP Q4H PRN PRN Reason: Systolic Blood Pressure Hydromorphone HCl (Dilaudid) 1 mg IVP Q1H PRN PRN Reason: Pain, moderate (4-7) Last Admin: 12/02/16 21:06 Dose: 1 mg Levetiracetam (Keppra 500mg Ivpb) 500 mg in 100 mls @ 400 mls/hr IV Q12 [facility] Last Admin: 12/02/16 21:06 Dose: 400 mls/hr Potassium Chloride/Dextrose (Potassium Chl 40 Meq In D5w) 1,000 mls @ 60 mls/ hr IV .[id number] [facility] Last Admin: 12/02/16 18:17 Dose: Not Given Magnesium Hydroxide (Milk Of Magnesia) 30 ml PO DAILY PRN PRN Reason: skin irritation Last Admin: 07/23/17 14:09 Dose: 30 ml Magnesium Oxide (Mag-Ox) 400 mg PO BID [facility] Last Admin: 12/02/16 18:16 Dose: Not Given Multi-Ingredient Ointment (Hydrophor Oint) 0 gm TOP Q6H PRN PRN Reason: Dry lip Multivitamins (Thera Tab) 1 tab PO 0800 [facility] Last Admin: 12/02/16 08:10 Dose: Not Given Propranolol HCl (Inderal La) 120 mg PO DAILY [facility] Last Admin: 12/02/16 09:44 Dose: Not Given Sucralfate (Carafate Oral Susp) 1 gm PO BID [facility] Last Admin: 12/02/16 18:16 Dose: Not Given - Labs Labs: 12/02/16 06:00 12/02/16 06:00 PT 12.9 Seconds (9.9-11.8) H 12/02/16 06:00 INR 1.19 (0.93-1.08) H 12/02/16 06:00 APTT 32.9 Seconds (23.7-30.8) H 12/02/16 06:00 Assessment and Plan - Assessment and Plan (Free Text) Plan: Patient was seen and examined by me. I agree with assessment and plan as per resident's note.
[2016-11-18] MEDS: Sucralfate 1 gm/10 ml Oral Susp UD PO SCH ×2 (09:26→17:24)
[2016-11-18] MEDS: Propranolol 60 mg ER Cap PO SCH (09:28)
[2016-11-18] MEDS: Micafungin 100 MG in Sodium Chloride 0.9% 100 ML IV SCH (09:31)
[2016-11-18] MEDS: Collagenase 250 Units/gm Ointment(30 gm) TOP SCH ×2 (09:33→19:00)
--- NOTE | 2016-11-18 10:53 | CP.PCM.PN ---
Subjective - Date & Time of Evaluation Date of Evaluation: 11/18/16 Time of Evaluation: 09:50 - Subjective Subjective: Patient is feeling somewhat better, no fevers overnight, had ex-lap yesterday and colon resection. Objective - Vital Signs/Intake and Output Vital Signs (last 24 hours): Temp Pulse Resp BP Pulse Ox 98.2 F 91 H 14 147/85 100 11/18/16 04:00 11/18/16 06:00 11/18/16 01:00 11/18/16 06:00 11/18/16 06:00 Intake and Output: 11/18/16 11/18/16 06:59 18:59 Intake Total 2120 Output Total 1850 Balance 270 - Medications Medications: Current Medications Acetaminophen (Tylenol 650 Mg Supp) 650 mg RC Q4H PRN PRN Reason: Fever >100.4 F Last Admin: 11/01/16 21:18 Dose: 650 mg Collagenase (Santyl) 1 gm TOP BID [facility] Last Admin: 11/16/16 18:25 Dose: 1 applic Al Hydrox/Mg Hydrox/Simethicone 30 ml/Diphenhydramine HCl 75 mg/Lidocaine 30 ml 0 ml PO Q2H PRN PRN Reason: Mouth/Throat Pain Last Admin: 11/07/16 09:00 Dose: 15 ml Diphenhydramine HCl (Benadryl) 25 mg IVP Q4H PRN PRN Reason: Allergy symptoms Last Admin: 11/15/16 01:09 Dose: 25 mg Ergocalciferol (Drisdol 50,000 Intl Units Cap) 1 cap PO Q7D [facility] Last Admin: 11/12/16 15:18 Dose: Not Given Furosemide (Lasix) 20 mg IVP Q12 [facility] Last Admin: 11/16/16 09:03 Dose: 20 mg Home Med (Home Med) 1 unit PO Q12H PRN PRN Reason: Inflammation Last Admin: 10/18/16 11:03 Dose: 1 unit Hydralazine HCl (Apresoline) 10 mg PO Q6H PRN PRN Reason: SBP >170 Last Admin: 11/13/16 03:21 Dose: 10 mg Micafungin Sodium 100 mg/ (Sodium Chloride) 100 mls @ 100 mls/hr IV DAILY [facility] PRN Reason: Protocol Stop: 11/18/16 11:00 Last Admin: 11/16/16 09:09 Dose: 100 mls/hr Hydromorphone HCl (Dilaudid-Hp 1 Mg/Ml Partner Marketing Intern) 25 mls @ 0.5 mls/hr IV PRN PRN; Protocol PRN Reason: ADMINISTRATION VICE PRESIDENT PER MD ORDER Last Admin: 11/16/16 17:38 Dose: 0.5 mls/hr Potassium Chloride 30 meq/ (Sodium Chloride) 1,015 mls @ 125 mls/hr IV .Q8H8M [facility] Last Admin: 11/18/16 05:04 Dose: 125 mls/hr Daptomycin 440 mg/ Sodium (Chloride) 100 mls @ 200 mls/hr IV Q24H [facility] Stop: 11/27/16 09:01 Dexmedetomidine HCl (Precedex 4 Mcg/Ml (100 Ml)) 400 mcg in 100 mls @ 3.629 mls /hr IV .Q24H PRN; Protocol; 0.2 MCG/KG/HR PRN Reason: Agitation Metoprolol Tartrate (Lopressor) 5 mg IVP Q6H PRN PRN Reason: Sustained HR > 130 Last Admin: 10/31/16 00:12 Dose: 5 mg Multi-Ingredient Ointment (Hydrophor Oint) 0 gm TOP Q6H PRN PRN Reason: Dry lip Ondansetron HCl (Zofran Inj) 4 mg IVP Q4H PRN PRN Reason: Nausea/Vomiting Last Admin: 11/17/16 05:01 Dose: 4 mg Pantoprazole Sodium (Protonix Inj) 40 mg IVP Q12 [facility] Last Admin: 11/17/16 22:06 Dose: 40 mg Petrolatum (Desitin Maximum Strength Topical 40% Oint) 1 gm TOP Q4H PRN PRN Reason: Rash Last Admin: 10/23/16 22:39 Dose: 1 applic Propranolol HCl (Inderal La) 120 mg PO DAILY [facility] Last Admin: 11/16/16 09:04 Dose: 120 mg Sucralfate (Carafate Oral Susp) 1 gm PO BID [facility] Last Admin: 11/17/16 18:11 Dose: Not Given Valganciclovir (Valcyte) 900 mg PO DAILY [facility] Last Admin: 11/14/16 11:09 Dose: Not Given - Labs Labs: 11/17/16 21:20 11/18/16 06:10 PT 12.6 Seconds (9.9-11.8) H 11/17/16 06:00 INR 1.17 (0.93-1.08) H 11/17/16 06:00 APTT 32.9 Seconds (23.7-30.8) H 11/17/16 06:00 - Constitutional Appears: Chronically Ill - Head Exam Head Exam: NORMAL INSPECTION - Neck Exam Neck Exam: absent: Meningismus - Respiratory Exam Respiratory Exam: Decreased Breath Sounds - Cardiovascular Exam Cardiovascular Exam: +S1, +S2 - GI/Abdominal Exam GI & Abdominal Exam: Soft. 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, probably from port-a-cath S/P removal POD # 5 (since the patient had been on TPN through the port) Methicillin-resistant coagulase negative staph in repeat blood cx bottle, consider bacteremia R/O secondary to PICC line R/O contamination Partial small bowel obstruction, persistent with colonic stricture S/P exploratory laparotomy, lysis of adhesions, repair of small bowel enterotomy and partial sigmoidectomy with end-colostomy POD #1 Acute stomatitis and mucositis, as well as esophageal ulcers (esophagitis) and enteritis - no CMV noted on biopsy sample of the esophageal ulcers - consider Susy Esophagitis Neutropenia probably from chemotherapy, resolved HTN 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
--- NOTE | 2016-11-18 11:33 | CP.CCUPN ---
CCU Subjective - Physician Review Events Since Last Encounter (Free Text): 11/18/16 11:28 No acute events overnight Extubated, tolerated on NC Started on CONTENT EDITOR by surgery CCU Objective - Vital Signs / Intake & Output Vital Signs (Last 4 hours): Vital Signs Temp Pulse Resp BP Pulse Ox 11/18/16 10:00 111 H 139/89 100 11/18/16 09:30 155/103 H 11/18/16 09:29 112 H 155/103 H 100 11/18/16 09:00 108 H 185/101 H 99 11/18/16 08:00 97.7 F 104 H 18 153/89 H 100 Intake and Output (Last 8hrs): Intake & Output 11/17/16 11/18/16 11/18/16 22:59 06:59 14:59 Intake Total 500 1620 Output Total 400 1450 240 Balance 100 170 -240 Weight 148 lb Intake: IV 500 1600 Left upper arm 100 Right Hand 500 1500 Oral 0 20 Output: Drainage 100 250 240 Left Anterior Abdomen 100 250 Right Abdomen 240 Urine 300 700 Urethral (Salazar) 300 700 Stool 500 Other: Voiding Method Indwelling Catheter Indwelling Catheter - Physical Exam Head: Positive for: Atraumatic, Normocephalic Pupils: Positive for: PERRL Extroacular Muscles: Positive for: EOMI Conjunctiva: Positive for: Normal Mouth: Positive for: Moist Mucous Membranes. Negative for: Normal Tounge ( thrush) Pharnyx: Positive for: Normal. Negative for: ERYTHEMA, EXUDATE, Uvular Deviation Nose (External): Positive for: Atraumatic Neck: Positive for: Normal Range of Motion, Trachea Midline Respiratory/Chest: Positive for: Clear to Auscultation, Good Air Exchange. Negative for: Respiratory Distress, Accessory Muscle Use Cardiovascular: Positive for: Normal S1, S2, Tachycardic. Negative for: Murmurs Abdomen: Positive for: Tenderness (mild diffuse), Normal Bowel Sounds. Negative for: Distention, Peritoneal Signs, Guarding Back: Positive for: Normal Inspection Upper Extremity: Positive for: Normal Inspection, Capillary Refill < 2s. Negative for: Cyanosis, Edema Lower Extremity: Positive for: Normal Inspection, Swelling (+1), Capillary Refill < 2 s. Negative for: Edema Neurological: Positive for: GCS=15, CN II-XII Intact, Speech Normal Skin: Positive for: Warm, Dry, Normal Color. Negative for: Rashes Psychiatric: Positive for: Alert, Oriented x 3, Normal Insight, Normal Concentration - Medications Active Medications: Active Medications Generic Name Dose Route Start Last Admin Trade Name Freq PRN Reason Stop Dose Admin Acetaminophen 650 mg 10/25/16 02:44 11/01/16 21:18 Tylenol 650 Mg Supp RC 650 mg Q4H PRN Administration Fever >100.4 F Collagenase 1 gm 10/18/16 18:00 11/18/16 09:33 Santyl TOP 1 applic BID RODRÍGUEZ Administration Al Hydrox/Mg Hydrox/ 0 ml 10/12/16 10:10 11/07/16 09:00 Simethicone 30 ml/ PO 15 ml Diphenhydramine HCl 75 mg/ Q2H PRN Administration Lidocaine 30 ml Mouth/Throat Pain Diphenhydramine HCl 25 mg 10/18/16 13:06 11/15/16 01:09 Benadryl IVP 25 mg Q4H PRN Administration Allergy symptoms Ergocalciferol 1 cap 10/29/16 13:30 11/12/16 15:18 Drisdol 50,000 Intl Units Cap PO Not Given Q7D RODRÍGUEZ Furosemide 20 mg 11/04/16 22:00 11/18/16 09:30 Lasix IVP 20 mg Q12 RODRÍGUEZ Administration Home Med 1 unit 10/17/16 20:12 10/18/16 11:03 Home Med PO 1 unit Q12H PRN Administration Inflammation Hydralazine HCl 10 mg 11/04/16 08:20 11/13/16 03:21 Apresoline PO 10 mg Q6H PRN Administration SBP >170 Hydromorphone HCl 25 mls @ 0.5 mls/hr 11/09/16 11:45 11/18/16 07:53 Dilaudid-Hp 1 Mg/Ml Block Mechanic IV 0.5 mls/hr PRN PRN Administration CONTENT EDITOR PER MD ORDER Protocol Daptomycin 440 mg/ Sodium 100 mls @ 200 mls/hr 11/17/16 09:00 11/18/16 09:26 Chloride IV 11/27/16 09:01 200 mls/hr Q24H RODRÍGUEZ Administration Potassium Chloride 40 meq/ 1,020 mls @ 100 mls/hr 11/18/16 08:15 Dextrose/Sodium Chloride IV .[id number] RODRÍGUEZ Acetaminophen 1,000 mg in 100 mls @ 400 mls/hr 11/18/16 08:46 11/18/16 09:31 Ofirmev IVPB 11/20/16 08:47 400 mls/hr Q6H PRN Administration Pain, moderate (4-7) Metoprolol Tartrate 5 mg 10/12/16 12:37 10/31/16 00:12 Lopressor IVP 5 mg Q6H PRN Administration Sustained HR > 130 Multi-Ingredient Ointment 0 gm 11/16/16 12:55 Hydrophor Oint TOP Q6H PRN Dry lip Ondansetron HCl 4 mg 10/28/16 19:55 11/17/16 05:01 Zofran Inj IVP 4 mg Q4H PRN Administration Nausea/Vomiting Pantoprazole Sodium 40 mg 11/10/16 22:00 11/18/16 09:32 Protonix Inj IVP 40 mg Q12 RODRÍGUEZ Administration Petrolatum 1 gm 10/19/16 11:57 10/23/16 22:39 Desitin Maximum Strength Topical 40% Oint TOP 1 applic Q4H PRN Administration Rash Propranolol HCl 120 mg 11/04/16 10:00 11/18/16 09:28 Inderal La PO Not Given DAILY [facility] Sucralfate 1 gm 10/11/16 20:45 11/18/16 09:26 Carafate Oral Susp PO Not Given BID [facility] Valganciclovir 900 mg 10/30/16 10:00 11/14/16 11:09 Valcyte PO Not Given DAILY RODRÍGUEZ - Patient Studies Lab Studies: Microbiology Studies 11/15/16 06:50 Blood Culture - Preliminary Blood-Thru Central Line NO GROWTH AFTER 3 DAYS 11/15/16 08:31 Blood Culture - Preliminary Blood-Venous NO GROWTH AFTER 48 HOURS Lab Studies 11/18/16 11/18/16 11/17/16 Range/Units 06:10 06:10 21:20 WBC 8.0 (4.5-11.0) 10^3/ul RBC 3.42 L (3.5-6.1) 10^6/uL Hgb 10.4 L (12.0-16.0) gm/dL Hct 31.1 L (36.0-48.0) % MCV 90.9 (80.0-105.0) fL MCH 30.4 (25.0-35.0) pg MCHC 33.4 (31.0-37.0) g/dl RDW 16.6 H (11.5-14.5) % Plt Count 104 L (120.0-450.0) 10^3/uL Manual Plt Count 112 L (120-450) K/mm3 MPV 10.7 (7.0-11.0) fl Gran % 88.4 H (50.0-68.0) % Lymph % (Auto) 6.4 L (22.0-35.0) % Sandoval % (Auto) 4.6 (1.0-6.0) % Eos % (Auto) 0.5 L (1.5-5.0) % Baso % (Auto) 0.1 (0.0-3.0) % Gran # 7.10 H (1.4-6.5) Lymph # 0.5 L (1.2-3.4) Sandoval # 0.4 (0.1-0.6) Eos # 0.0 (0.0-0.7) Baso # 0.01 (0.0-2.0) K/mm3 Fibrin Degrad Products (< 10 ug/mL) pCO2 (35-45) mm/Hg pO2 (80-100) mm/Hg HCO3 (21-28) mmol/L ABG pH (7.35-7.45) ABG Total CO2 (22-28) mmol.L ABG O2 Saturation (95-98) % ABG O2 Content (15-23) ML/dl ABG Base Excess (-2.0-3.0) mmol/L ABG Hemoglobin (11.7-17.4) g/dL ABG Carboxyhemoglobin (0.5-1.5) % POC ABG HHb (Measured) (0-5) % ABG Methemoglobin (0.0-3.0) % ABG O2 Capacity (16-24) mL/dl Hgb O2 Saturation (95.0-98.0) % FiO2 % Sodium 150 H 147 (132-148) mmol/L Potassium 4.0 3.7 (3.6-5.0) mmol/L Chloride 114 H 111 H (98-107) mmol/L Carbon Dioxide 29 30 (21-33) mmol/L Anion Gap 11 10 (10-20) BUN 19 20 (7-21) mg/dL Creatinine 0.5 0.5 (0.5-1.4) mg/dL Est GFR ( Amer) > 60 > 60 Est GFR (Non-Af Amer) > 60 > 60 Random Glucose 77 89 (70-110) mg/dL Calcium 7.4 L 7.2 L (8.4-10.5) mg/dL Phosphorus 4.3 (2.5-4.5) mg/dL Magnesium 1.7 (1.7-2.2) mg/dL Total Bilirubin 1.9 H (0.2-1.3) mg/dL AST 15 (15-39) U/L ALT 24 (7-56) U/L Alkaline Phosphatase 105 (38-133) U/L Total Protein 4.6 L (5.8-8.3) g/dL Albumin 2.0 L (3.0-4.8) g/dL Globulin 2.6 gm/dL Albumin/Globulin Ratio 0.8 L (1.1-1.8) Blood Type Antibody Screen Crossmatch BBK History Checked 11/17/16 11/17/16 11/17/16 Range/Units 21:20 14:20 14:00 WBC 7.6 D (4.5-11.0) 10^3/ul RBC 3.64 (3.5-6.1) 10^6/uL Hgb 11.5 L (12.0-16.0) gm/dL Hct 32.8 L (36.0-48.0) % MCV 90.1 (80.0-105.0) fL MCH 31.6 (25.0-35.0) pg MCHC 35.1 (31.0-37.0) g/dl RDW 16.0 H (11.5-14.5) % Plt Count 115 L (120.0-450.0) 10^3/uL Manual Plt Count (120-450) K/mm3 MPV 9.9 (7.0-11.0) fl Gran % (50.0-68.0) % Lymph % (Auto) (22.0-35.0) % Sandoval % (Auto) (1.0-6.0) % Eos % (Auto) (1.5-5.0) % Baso % (Auto) (0.0-3.0) % Gran # (1.4-6.5) Lymph # (1.2-3.4) Sandoval # (0.1-0.6) Eos # (0.0-0.7) Baso # (0.0-2.0) K/mm3 Fibrin Degrad Products (< 10 ug/mL) pCO2 (35-45) mm/Hg pO2 (80-100) mm/Hg HCO3 (21-28) mmol/L ABG pH (7.35-7.45) ABG Total CO2 (22-28) mmol.L ABG O2 Saturation (95-98) % ABG O2 Content (15-23) ML/dl ABG Base Excess (-2.0-3.0) mmol/L ABG Hemoglobin (11.7-17.4) g/dL ABG Carboxyhemoglobin (0.5-1.5) % POC ABG HHb (Measured) (0-5) % ABG Methemoglobin (0.0-3.0) % ABG O2 Capacity (16-24) mL/dl Hgb O2 Saturation (95.0-98.0) % FiO2 % Sodium 146 (132-148) mmol/L Potassium 3.0 L (3.6-5.0) mmol/L Chloride 110 H (98-107) mmol/L Carbon Dioxide 32 (21-33) mmol/L Anion Gap 7 L (10-20) BUN 19 (7-21) mg/dL Creatinine 0.5 (0.5-1.4) mg/dL Est GFR ( Amer) > 60 Est GFR (Non-Af Amer) > 60 Random Glucose 97 (70-110) mg/dL Calcium 7.2 L (8.4-10.5) mg/dL Phosphorus 4.0 (2.5-4.5) mg/dL Magnesium 1.3 L (1.7-2.2) mg/dL Total Bilirubin 3.1 H (0.2-1.3) mg/dL AST 18 (15-39) U/L ALT 26 (7-56) U/L Alkaline Phosphatase 102 (38-133) U/L Total Protein 4.6 L (5.8-8.3) g/dL Albumin 2.0 L (3.0-4.8) g/dL Globulin 2.6 gm/dL Albumin/Globulin Ratio 0.8 L (1.1-1.8) Blood Type Antibody Screen Crossmatch BBK History Checked 11/17/16 11/17/16 11/17/16 Range/Units 14:00 13:52 13:34 WBC (4.5-11.0) 10^3/ul RBC (3.5-6.1) 10^6/uL Hgb (12.0-16.0) gm/dL Hct (36.0-48.0) % MCV (80.0-105.0) fL MCH (25.0-35.0) pg MCHC (31.0-37.0) g/dl RDW (11.5-14.5) % Plt Count (120.0-450.0) 10^3/uL Manual Plt Count (120-450) K/mm3 MPV (7.0-11.0) fl Gran % (50.0-68.0) % Lymph % (Auto) (22.0-35.0) % Sandoval % (Auto) (1.0-6.0) % Eos % (Auto) (1.5-5.0) % Baso % (Auto) (0.0-3.0) % Gran # (1.4-6.5) Lymph # (1.2-3.4) Sandoval # (0.1-0.6) Eos # (0.0-0.7) Baso # (0.0-2.0) K/mm3 Fibrin Degrad Products >10 <40 ug/ml (< 10 ug/mL) pCO2 (35-45) mm/Hg pO2 (80-100) mm/Hg HCO3 (21-28) mmol/L ABG pH (7.35-7.45) ABG Total CO2 (22-28) mmol.L ABG O2 Saturation (95-98) % ABG O2 Content (15-23) ML/dl ABG Base Excess (-2.0-3.0) mmol/L ABG Hemoglobin (11.7-17.4) g/dL ABG Carboxyhemoglobin (0.5-1.5) % POC ABG HHb (Measured) (0-5) % ABG Methemoglobin (0.0-3.0) % ABG O2 Capacity (16-24) mL/dl Hgb O2 Saturation (95.0-98.0) % FiO2 % Sodium 146 (132-148) mmol/L Potassium 2.9 L* (3.6-5.0) mmol/L Chloride 109 H (98-107) mmol/L Carbon Dioxide 32 (21-33) mmol/L Anion Gap 8 L (10-20) BUN 19 (7-21) mg/dL Creatinine 0.5 (0.5-1.4) mg/dL Est GFR ( Amer) > 60 Est GFR (Non-Af Amer) > 60 Random Glucose 99 (70-110) mg/dL Calcium 7.3 L (8.4-10.5) mg/dL Phosphorus (2.5-4.5) mg/dL Magnesium (1.7-2.2) mg/dL Total Bilirubin 3.3 H (0.2-1.3) mg/dL AST 18 (15-39) U/L ALT 28 (7-56) U/L Alkaline Phosphatase 105 (38-133) U/L Total Protein 4.7 L (5.8-8.3) g/dL Albumin 2.0 L (3.0-4.8) g/dL Globulin 2.7 gm/dL Albumin/Globulin Ratio 0.7 L (1.1-1.8) Blood Type A POSITIVE Antibody Screen Negative Crossmatch See Detail BBK History Checked Patient has bt 11/17/16 11/17/16 11/14/16 Range/Units 13:34 13:11 10:30 WBC 6.2 D (4.5-11.0) 10^3/ul RBC 3.76 (3.5-6.1) 10^6/uL Hgb 11.6 L (12.0-16.0) gm/dL Hct 33.5 L (36.0-48.0) % MCV 89.1 (80.0-105.0) fL MCH 30.9 (25.0-35.0) pg MCHC 34.6 (31.0-37.0) g/dl RDW 15.7 H (11.5-14.5) % Plt Count 113 L (120.0-450.0) 10^3/uL Manual Plt Count (120-450) K/mm3 MPV 9.8 (7.0-11.0) fl Gran % (50.0-68.0) % Lymph % (Auto) (22.0-35.0) % Sandoval % (Auto) (1.0-6.0) % Eos % (Auto) (1.5-5.0) % Baso % (Auto) (0.0-3.0) % Gran # (1.4-6.5) Lymph # (1.2-3.4) Sandoval # (0.1-0.6) Eos # (0.0-0.7) Baso # (0.0-2.0) K/mm3 Fibrin Degrad Products (< 10 ug/mL) pCO2 34 L (35-45) mm/Hg pO2 437.0 H (80-100) mm/Hg HCO3 30.4 H (21-28) mmol/L ABG pH 7.56 H (7.35-7.45) ABG Total CO2 31.4 H (22-28) mmol.L ABG O2 Saturation 99.7 H (95-98) % ABG O2 Content 16.9 (15-23) ML/dl ABG Base Excess 7.9 H (-2.0-3.0) mmol/L ABG Hemoglobin 11.5 L (11.7-17.4) g/dL ABG Carboxyhemoglobin 1.4 (0.5-1.5) % POC ABG HHb (Measured) 0.3 (0-5) % ABG Methemoglobin 0.9 (0.0-3.0) % ABG O2 Capacity 17.0 (16-24) mL/dl Hgb O2 Saturation 97.4 (95.0-98.0) % FiO2 100.0 % Sodium (132-148) mmol/L Potassium (3.6-5.0) mmol/L Chloride (98-107) mmol/L Carbon Dioxide (21-33) mmol/L Anion Gap (10-20) BUN (7-21) mg/dL Creatinine (0.5-1.4) mg/dL Est GFR ( Amer) Est GFR (Non-Af Amer) Random Glucose (70-110) mg/dL Calcium (8.4-10.5) mg/dL Phosphorus (2.5-4.5) mg/dL Magnesium (1.7-2.2) mg/dL Total Bilirubin (0.2-1.3) mg/dL AST (15-39) U/L ALT (7-56) U/L Alkaline Phosphatase (38-133) U/L Total Protein (5.8-8.3) g/dL Albumin (3.0-4.8) g/dL Globulin gm/dL Albumin/Globulin Ratio (1.1-1.8) Blood Type A POSITIVE Antibody Screen Negative Crossmatch See Detail BBK History Checked Patient has bt Laboratory Results - last 24 hr 11/14/16 11/17/16 11/17/16 10:30 13:11 13:34 WBC 6.2 D RBC 3.76 Hgb 11.6 L Hct 33.5 L MCV 89.1 MCH 30.9 MCHC 34.6 RDW 15.7 H Plt Count 113 L Manual Plt Count MPV 9.8 Gran % Lymph % (Auto) Sandoval % (Auto) Eos % (Auto) Baso % (Auto) Gran # Lymph # Sandoval # Eos # Baso # Fibrin Degrad Products pCO2 34 L pO2 437.0 H HCO3 30.4 H ABG pH 7.56 H ABG Total CO2 31.4 H ABG O2 Saturation 99.7 H ABG O2 Content 16.9 ABG Base Excess 7.9 H ABG Hemoglobin 11.5 L ABG Carboxyhemoglobin 1.4 POC ABG HHb (Measured) 0.3 ABG Methemoglobin 0.9 ABG O2 Capacity 17.0 Hgb O2 Saturation 97.4 FiO2 100.0 Sodium Potassium Chloride Carbon Dioxide Anion Gap BUN Creatinine Est GFR ( Amer) Est GFR (Non-Af Amer) Random Glucose Calcium Phosphorus Magnesium Total Bilirubin AST ALT Alkaline Phosphatase Total Protein Albumin Globulin Albumin/Globulin Ratio Blood Type A POSITIVE Antibody Screen Negative Crossmatch See Detail BBK History Checked Patient has bt 11/17/16 11/17/16 11/17/16 13:34 13:52 14:00 WBC RBC Hgb Hct MCV MCH MCHC RDW Plt Count Manual Plt Count MPV Gran % Lymph % (Auto) Sandoval % (Auto) Eos % (Auto) Baso % (Auto) Gran # Lymph # Sandoval # Eos # Baso # Fibrin Degrad Products >10 <40 ug/ml pCO2 pO2 HCO3 ABG pH ABG Total CO2 ABG O2 Saturation ABG O2 Content ABG Base Excess ABG Hemoglobin ABG Carboxyhemoglobin POC ABG HHb (Measured) ABG Methemoglobin ABG O2 Capacity Hgb O2 Saturation FiO2 Sodium 146 Potassium 2.9 L* Chloride 109 H Carbon Dioxide 32 Anion Gap 8 L BUN 19 Creatinine 0.5 Est GFR ( Amer) > 60 Est GFR (Non-Af Amer) > 60 Random Glucose 99 Calcium 7.3 L Phosphorus Magnesium Total Bilirubin 3.3 H AST 18 ALT 28 Alkaline Phosphatase 105 Total Protein 4.7 L Albumin 2.0 L Globulin 2.7 Albumin/Globulin Ratio 0.7 L Blood Type A POSITIVE Antibody Screen Negative Crossmatch See Detail BBK History Checked Patient has bt 11/17/16 11/17/16 11/17/16 14:00 14:20 21:20 WBC 7.6 D RBC 3.64 Hgb 11.5 L Hct 32.8 L MCV 90.1 MCH 31.6 MCHC 35.1 RDW 16.0 H Plt Count 115 L Manual Plt Count MPV 9.9 Gran % Lymph % (Auto) Sandoval % (Auto) Eos % (Auto) Baso % (Auto) Gran # Lymph # Sandoval # Eos # Baso # Fibrin Degrad Products pCO2 pO2 HCO3 ABG pH ABG Total CO2 ABG O2 Saturation ABG O2 Content ABG Base Excess ABG Hemoglobin ABG Carboxyhemoglobin POC ABG HHb (Measured) ABG Methemoglobin ABG O2 Capacity Hgb O2 Saturation FiO2 Sodium 146 Potassium 3.0 L Chloride 110 H Carbon Dioxide 32 Anion Gap 7 L BUN 19 Creatinine 0.5 Est GFR ( Amer) > 60 Est GFR (Non-Af Amer) > 60 Random Glucose 97 Calcium 7.2 L Phosphorus 4.0 Magnesium 1.3 L Total Bilirubin 3.1 H AST 18 ALT 26 Alkaline Phosphatase 102 Total Protein 4.6 L Albumin 2.0 L Globulin 2.6 Albumin/Globulin Ratio 0.8 L Blood Type Antibody Screen Crossmatch BBK History Checked 11/17/16 11/18/16 11/18/16 21:20 06:10 06:10 WBC 8.0 RBC 3.42 L Hgb 10.4 L Hct 31.1 L MCV 90.9 MCH 30.4 MCHC 33.4 RDW 16.6 H Plt Count 104 L Manual Plt Count 112 L MPV 10.7 Gran % 88.4 H Lymph % (Auto) 6.4 L Sandoval % (Auto) 4.6 Eos % (Auto) 0.5 L Baso % (Auto) 0.1 Gran # 7.10 H Lymph # 0.5 L Sandoval # 0.4 Eos # 0.0 Baso # 0.01 Fibrin Degrad Products pCO2 pO2 HCO3 ABG pH ABG Total CO2 ABG O2 Saturation ABG O2 Content ABG Base Excess ABG Hemoglobin ABG Carboxyhemoglobin POC ABG HHb (Measured) ABG Methemoglobin ABG O2 Capacity Hgb O2 Saturation FiO2 Sodium 147 150 H Potassium 3.7 4.0 Chloride 111 H 114 H Carbon Dioxide 30 29 Anion Gap 10 11 BUN 20 19 Creatinine 0.5 0.5 Est GFR ( Amer) > 60 > 60 Est GFR (Non-Af Amer) > 60 > 60 Random Glucose 89 77 Calcium 7.2 L 7.4 L Phosphorus 4.3 Magnesium 1.7 Total Bilirubin 1.9 H AST 15 ALT 24 Alkaline Phosphatase 105 Total Protein 4.6 L Albumin 2.0 L Globulin 2.6 Albumin/Globulin Ratio 0.8 L Blood Type Antibody Screen Crossmatch BBK History Checked Review of Systems - EENT Eyes: UNREMARKABLE Ears: UNREMARKABLE Nose/Mouth/Throat: UNREMARKABLE - Breasts Breasts: UNREMARKABLE - Cardiovascular Cardiovascular: UNREMARKABLE - Respiratory Respiratory: UNREMARKABLE - Gastrointestinal Gastrointestinal: UNREMARKABLE - Genitourinary Genitourinary: UNREMARKABLE - Neurological Neurological: UNREMARKABLE Critical Care Progress Note - Ventilator Checklist Head of Bed 30 Degrees: Yes Daily Sedation Vacation: Yes PUD Prophalyxis: Yes DVT Prophylaxis: Yes - Nutrition Nutrition: Nutrition Category Date Time Status Liquid Diet [DIET] Diets 11/18/16 Breakfast Ordered Assessment/Plan - Assessment and Plan (Free Text) Assessment: 61 y/o F Post op Day #2 colostomy, SB enterotomy and mass excision. Overnight No further issues, NGt removed this a.m HGb stable > 9 Platlets > 100k INR<2 Urine output low 300cc/ hr Started on liquid diet per surgery Pain management on CONTENT EDITOR, may need adjustment due to inadequate pain control. On empiric abx per ID for previous blood bourne infections and fungemia. Stage 4 colon ca, managed by ONC. no further plans currently. Palliative care on board. dvt p Heparin sq to be started soon, SCD for now PPI cc time 65 min
[2016-11-18] MEDS: Potassium Chloride 40 MEQ in Dextrose 5%/0.45% NS 1,000 ML IV SCH (16:14)
[2016-11-18 18:00] LABS: ALB/GLOB RATIO 0.7 (1.1-1.8); ALT/SGPT 29 U/L (7-56); AST/SGOT 13 U/L (15-39); BLOOD UREA NITROGEN 21 mg/dL (7-21); CALCIUM 7.7 mg/dL (8.4-10.5); GFR AFRICAN-AMERICAN > 60; GFR NON-AFRICAN AMERICAN > 60
--- NOTE | 2016-11-18 18:30 | CP.PCM.PN ---
Subjective - Date & Time of Evaluation Date of Evaluation: 11/18/16 Time of Evaluation: 14:00 - Subjective Subjective: Pt lying somnolent but arouseable, mother at bedside, reporting that pain is controlled w meds, extubated, ngt out with pt and family relieved that surgery w Dr Mccracken went exremely well, despite all the concern preoperatively, with the family advised that we're not out of the olsen yet, with her deconditioning/ and decubitus ulcer/ and fungemia with a new colostomy still be be considered Objective - Vital Signs/Intake and Output Vital Signs (last 24 hours): Temp Pulse Resp BP Pulse Ox 97.6 F 116 H 15 154/89 H 100 11/18/16 16:00 11/18/16 18:00 11/18/16 18:00 11/18/16 18:00 11/18/16 18:00 Intake and Output: 11/18/16 11/18/16 06:59 18:59 Intake Total 2120 1300 Output Total 1850 1210 Balance 270 90 - Medications Medications: Current Medications Acetaminophen (Tylenol 650 Mg Supp) 650 mg RC Q4H PRN PRN Reason: Fever >100.4 F Last Admin: 11/01/16 21:18 Dose: 650 mg Collagenase (Santyl) 1 gm TOP BID RODRÍGUEZ Last Admin: 11/18/16 09:33 Dose: 1 applic Al Hydrox/Mg Hydrox/Simethicone 30 ml/Diphenhydramine HCl 75 mg/Lidocaine 30 ml 0 ml PO Q2H PRN PRN Reason: Mouth/Throat Pain Last Admin: 11/07/16 09:00 Dose: 15 ml Diphenhydramine HCl (Benadryl) 25 mg IVP Q4H PRN PRN Reason: Allergy symptoms Last Admin: 11/15/16 01:09 Dose: 25 mg Ergocalciferol (Drisdol 50,000 Intl Units Cap) 1 cap PO Q7D RODRÍGUEZ Last Admin: 11/12/16 15:18 Dose: Not Given Furosemide (Lasix) 20 mg IVP Q12 RODRÍGUEZ Last Admin: 11/18/16 09:30 Dose: 20 mg Home Med (Home Med) 1 unit PO Q12H PRN PRN Reason: Inflammation Last Admin: 10/18/16 11:03 Dose: 1 unit Hydralazine HCl (Apresoline) 10 mg PO Q6H PRN PRN Reason: SBP >170 Last Admin: 11/13/16 03:21 Dose: 10 mg Hydromorphone HCl (Dilaudid-Hp 1 Mg/Ml Paid Search Marketing Strategist) 25 mls @ 0.5 mls/hr IV PRN PRN; Protocol PRN Reason: LEAD SYSTEMS ARCHITECT PER MD ORDER Last Admin: 11/18/16 07:53 Dose: 0.5 mls/hr Daptomycin 440 mg/ Sodium (Chloride) 100 mls @ 200 mls/hr IV Q24H [facility] Stop: 11/27/16 09:01 Last Admin: 11/18/16 09:26 Dose: 200 mls/hr Potassium Chloride 40 meq/ (Dextrose/Sodium Chloride) 1,020 mls @ 100 mls/hr IV .[id number] [facility] Last Admin: 11/18/16 16:14 Dose: 100 mls/hr Acetaminophen (Ofirmev) 1,000 mg in 100 mls @ 400 mls/hr IVPB Q6H PRN PRN Reason: Pain, moderate (4-7) Stop: 11/20/16 08:47 Last Admin: 11/18/16 17:43 Dose: 400 mls/hr Metoprolol Tartrate (Lopressor) 5 mg IVP Q6H PRN PRN Reason: Sustained HR > 130 Last Admin: 10/31/16 00:12 Dose: 5 mg Multi-Ingredient Ointment (Hydrophor Oint) 0 gm TOP Q6H PRN PRN Reason: Dry lip Ondansetron HCl (Zofran Inj) 4 mg IVP Q4H PRN PRN Reason: Nausea/Vomiting Last Admin: 11/17/16 05:01 Dose: 4 mg Pantoprazole Sodium (Protonix Inj) 40 mg IVP Q12 [facility] Last Admin: 11/18/16 09:32 Dose: 40 mg Petrolatum (Desitin Maximum Strength Topical 40% Oint) 1 gm TOP Q4H PRN PRN Reason: Rash Last Admin: 10/23/16 22:39 Dose: 1 applic Propranolol HCl (Inderal La) 120 mg PO DAILY [facility] Last Admin: 11/18/16 09:28 Dose: Not Given Sucralfate (Carafate Oral Susp) 1 gm PO BID [facility] Last Admin: 11/18/16 17:24 Dose: Not Given Valganciclovir (Valcyte) 900 mg PO DAILY [facility] Last Admin: 11/14/16 11:09 Dose: Not Given - Labs Labs: 11/18/16 06:10 11/18/16 17:30 PT 12.6 Seconds (9.9-11.8) H 11/17/16 06:00 INR 1.17 (0.93-1.08) H 11/17/16 06:00 APTT 32.9 Seconds (23.7-30.8) H 11/17/16 06:00 - Constitutional Appears: Chronically Ill - Head Exam Head Exam: NORMOCEPHALIC - Eye Exam Eye Exam: EOMI, PERRL - ENT Exam ENT Exam: Mucous Membranes Moist - Neck Exam Neck Exam: Normal Inspection - Respiratory Exam Respiratory Exam: NORMAL BREATHING PATTERN - Cardiovascular Exam Cardiovascular Exam: REGULAR RHYTHM - GI/Abdominal Exam GI & Abdominal Exam: Soft, Diminished Bowel Sounds Additional comments: viable colostomy - Extremities Exam Extremities Exam: Pedal Edema - Neurological Exam Additional comments: somnolent but arouseable - Skin Additional comments: decubitus ulcer at sacrum Assessment and Plan (1) Post-operative pain Status: Acute (2) Anemia Status: Acute (3) Fungemia Status: Acute (4) Malnutrition Status: Acute (5) Metastasis from colon cancer Status: Acute (6) Thrombocytopenia Status: Acute (7) Abdominal pain Status: Acute (8) Decubitus skin ulcer Status: Acute (9) Electrolyte abnormality Status: Acute - Assessment and Plan (Free Text) Plan: Cont present rx/plan/ txfer from ICU in am if stable, chk labs/monitor cliically , PICC line change soon, cont Mycamine x [address] Arevalo. prognois guarded
[2016-11-18 18:39] LABS: HEMOGLOBIN 10.1 gm/dL (12.0-16.0); MEAN CELL VOLUME 92.4 fL (80.0-105.0); MEAN CORPUSCULAR HEMOGLOBIN 30.5 pg (25.0-35.0); MEAN PLATELET VOLUME 11.2 fl (7.0-11.0); RBC 3.31 10^6/uL (3.5-6.1); RED CELL DISTRIBUTION WIDTH 16.9 % (11.5-14.5); WHITE BLOOD COUNT 7.7 10^3/ul (4.5-11.0)
[2016-11-19] MEDS: HYDROmorphone 1 mg/ml PCA 25 ML IV PRN ×3 (01:34→18:24)
[2016-11-19] MEDS: Potassium Chloride 40 MEQ in Dextrose 5%/0.45% NS 1,000 ML IV SCH (04:54)
[2016-11-19 07:22] LABS: ALB/GLOB RATIO 0.7 (1.1-1.8); ALBUMIN 1.9 g/dL (3.0-4.8); ALT/SGPT 27 U/L (7-56); AST/SGOT 14 U/L (15-39); BLOOD UREA NITROGEN 24 mg/dL (7-21); CALCIUM 7.8 mg/dL (8.4-10.5); GFR AFRICAN-AMERICAN > 60; GFR NON-AFRICAN AMERICAN > 60; MAGNESIUM 1.4 mg/dL (1.7-2.2)
[2016-11-19] MEDS ORDERED: Metoprolol 1 mg/ml Inj IVP PRN (07:27)
[2016-11-19] MEDS ORDERED: Metoprolol 1 mg/ml Inj IVP SCH (07:30)
--- NOTE | 2016-11-19 07:42 | CP.PCM.PN ---
Subjective - Date & Time of Evaluation Date of Evaluation: 11/19/16 Time of Evaluation: 07:39 - Subjective Subjective: PT S&E at bedside in good spirits. NAEON. Patient admits to pain in her abdomen , denies F/C, N/V. Patient is off sedation. Objective - Vital Signs/Intake and Output Vital Signs (last 24 hours): Temp Pulse Resp BP Pulse Ox 98 F 111 H 18 164/88 H 100 11/19/16 04:00 11/19/16 06:00 11/19/16 06:00 11/19/16 06:00 11/19/16 06:00 Intake and Output: 11/19/16 11/19/16 06:59 18:59 Intake Total 1260 Output Total 1140 Balance 120 - Medications Medications: Current Medications Acetaminophen (Tylenol 650 Mg Supp) 650 mg RC Q4H PRN PRN Reason: Fever >100.4 F Last Admin: 11/01/16 21:18 Dose: 650 mg Collagenase (Santyl) 1 gm TOP BID [facility] Last Admin: 11/18/16 19:00 Dose: 1 applic Al Hydrox/Mg Hydrox/Simethicone 30 ml/Diphenhydramine HCl 75 mg/Lidocaine 30 ml 0 ml PO Q2H PRN PRN Reason: Mouth/Throat Pain Last Admin: 11/07/16 09:00 Dose: 15 ml Diphenhydramine HCl (Benadryl) 25 mg IVP Q4H PRN PRN Reason: Allergy symptoms Last Admin: 11/15/16 01:09 Dose: 25 mg Ergocalciferol (Drisdol 50,000 Intl Units Cap) 1 cap PO Q7D [facility] Last Admin: 11/12/16 15:18 Dose: Not Given Furosemide (Lasix) 20 mg IVP Q12 [facility] Last Admin: 11/18/16 22:15 Dose: 20 mg Home Med (Home Med) 1 unit PO Q12H PRN PRN Reason: Inflammation Last Admin: 10/18/16 11:03 Dose: 1 unit Hydralazine HCl (Apresoline) 10 mg PO Q6H PRN PRN Reason: SBP >170 Last Admin: 11/13/16 03:21 Dose: 10 mg Hydromorphone HCl (Dilaudid-Hp 1 Mg/Ml Elastic Yarn Twister) 25 mls @ 0.5 mls/hr IV PRN PRN; Protocol PRN Reason: DRY CHAIN OPERATOR PER MD ORDER Last Admin: 11/19/16 01:34 Dose: 0.5 mls/hr Daptomycin 440 mg/ Sodium (Chloride) 100 mls @ 200 mls/hr IV Q24H [facility] Stop: 11/27/16 09:01 Last Admin: 11/18/16 09:26 Dose: 200 mls/hr Potassium Chloride 40 meq/ (Dextrose/Sodium Chloride) 1,020 mls @ 100 mls/hr IV .[id number] [facility] Last Admin: 11/19/16 04:54 Dose: 100 mls/hr Acetaminophen (Ofirmev) 1,000 mg in 100 mls @ 400 mls/hr IVPB Q6H PRN PRN Reason: Pain, moderate (4-7) Stop: 11/20/16 08:47 Last Admin: 11/19/16 05:46 Dose: 400 mls/hr Metoprolol Tartrate (Lopressor) 5 mg IVP Q6H PRN PRN Reason: tachycardia Multi-Ingredient Ointment (Hydrophor Oint) 0 gm TOP Q6H PRN PRN Reason: Dry lip Ondansetron HCl (Zofran Inj) 4 mg IVP Q4H PRN PRN Reason: Nausea/Vomiting Last Admin: 11/17/16 05:01 Dose: 4 mg Pantoprazole Sodium (Protonix Inj) 40 mg IVP Q12 [facility] Last Admin: 11/18/16 22:09 Dose: 40 mg Petrolatum (Desitin Maximum Strength Topical 40% Oint) 1 gm TOP Q4H PRN PRN Reason: Rash Last Admin: 10/23/16 22:39 Dose: 1 applic Propranolol HCl (Inderal La) 120 mg PO DAILY [facility] Last Admin: 11/18/16 09:28 Dose: Not Given Sucralfate (Carafate Oral Susp) 1 gm PO BID [facility] Last Admin: 11/18/16 17:24 Dose: Not Given Valganciclovir (Valcyte) 900 mg PO DAILY [facility] Last Admin: 11/14/16 11:09 Dose: Not Given - Labs Labs: 11/18/16 17:30 11/19/16 06:30 PT 12.6 Seconds (9.9-11.8) H 11/17/16 06:00 INR 1.17 (0.93-1.08) H 11/17/16 06:00 APTT 32.9 Seconds (23.7-30.8) H 11/17/16 06:00 - Constitutional Appears: Chronically Ill - Head Exam Head Exam: NORMAL INSPECTION - Eye Exam Eye Exam: EOMI, Normal appearance - ENT Exam ENT Exam: Mucous Membranes Dry - Neck Exam Neck Exam: Full ROM, Normal Inspection - Respiratory Exam Respiratory Exam: NORMAL BREATHING PATTERN. absent: Accessory Muscle Use, Clear to Ausculation Bilateral, Wheezes, Respiratory Distress - Cardiovascular Exam Cardiovascular Exam: Tachycardia, REGULAR RHYTHM - GI/Abdominal Exam GI & Abdominal Exam: Diminished Bowel Sounds - Extremities Exam Extremities Exam: Full ROM. absent: Pedal Edema Additional comments: edema of RUE - Neurological Exam Neurological Exam: Alert, Awake, Normal Gait - Skin Skin Exam: Dry, Intact, Normal Color, Warm Assessment and Plan - Assessment and Plan (Free Text) Assessment: 61 F with history of Colon CA, GI bleed and sacral decub. s/p ex-lap, NATE, Marquita's POD #2. Plan: c/w current antifungal treatment per Dr. Arevalo. transfer from ICU when stable. Monitor H/Hs Monitor CMPs f/u AM labs.
[2016-11-19 08:02] LABS: EOS # 0.1 (0.0-0.7); EOS % 1.1 % (1.5-5.0); GRAN # 7.34 (1.4-6.5); GRAN % 87.7 % (50.0-68.0); HEMOGLOBIN 9.3 gm/dL (12.0-16.0); LYMPH # 0.5 (1.2-3.4); LYMPH % 6.2 % (22.0-35.0); MEAN CELL VOLUME 96.2 fL (80.0-105.0); MEAN CORPUSCULAR HEMOGLOBIN 32.2 pg (25.0-35.0); MEAN CORPUSCULAR HGB CONC 33.5 g/dl (31.0-37.0); MEAN PLATELET VOLUME 11.3 fl (7.0-11.0); MONO # 0.4 (0.1-0.6); PLATELET COUNT 94 10^3/uL (120.0-450.0); RBC 2.89 10^6/uL (3.5-6.1); RED CELL DISTRIBUTION WIDTH 18.2 % (11.5-14.5); WHITE BLOOD COUNT 8.4 10^3/ul (4.5-11.0)
[2016-11-19 08:20] LABS: PLATELET COUNT MANUAL 104 K/mm3 (120-450)
--- NOTE | 2016-11-19 09:07 | CP.PCM.PN ---
Subjective - Date & Time of Evaluation Date of Evaluation: 11/19/16 Time of Evaluation: 08:53 - Subjective Subjective: 61 yo with advance colon ca, now s/p resection with colostomy in place. Alert and oriented x 3, comfortable, but somewhat anxious Objective - Vital Signs/Intake and Output Vital Signs (last 24 hours): Temp Pulse Resp BP Pulse Ox 98 F 111 H 18 164/88 H 100 11/19/16 04:00 11/19/16 06:00 11/19/16 06:00 11/19/16 06:00 11/19/16 06:00 Intake and Output: 11/19/16 11/19/16 06:59 18:59 Intake Total 1260 Output Total 1140 Balance 120 - Medications Medications: Current Medications Acetaminophen (Tylenol 650 Mg Supp) 650 mg RC Q4H PRN PRN Reason: Fever >100.4 F Last Admin: 11/01/16 21:18 Dose: 650 mg Collagenase (Santyl) 1 gm TOP BID [facility] Last Admin: 11/18/16 19:00 Dose: 1 applic Al Hydrox/Mg Hydrox/Simethicone 30 ml/Diphenhydramine HCl 75 mg/Lidocaine 30 ml 0 ml PO Q2H PRN PRN Reason: Mouth/Throat Pain Last Admin: 11/07/16 09:00 Dose: 15 ml Diphenhydramine HCl (Benadryl) 25 mg IVP Q4H PRN PRN Reason: Allergy symptoms Last Admin: 11/15/16 01:09 Dose: 25 mg Ergocalciferol (Drisdol 50,000 Intl Units Cap) 1 cap PO Q7D [facility] Last Admin: 11/12/16 15:18 Dose: Not Given Furosemide (Lasix) 20 mg IVP Q12 [facility] Last Admin: 11/18/16 22:15 Dose: 20 mg Home Med (Home Med) 1 unit PO Q12H PRN PRN Reason: Inflammation Last Admin: 10/18/16 11:03 Dose: 1 unit Hydromorphone HCl (Dilaudid-Hp 1 Mg/Ml Invoicing Specialist) 25 mls @ 0.5 mls/hr IV PRN PRN; Protocol PRN Reason: SUPERVISORY IT SPECIALIST PER MD ORDER Last Admin: 11/19/16 01:34 Dose: 0.5 mls/hr Daptomycin 440 mg/ Sodium (Chloride) 100 mls @ 200 mls/hr IV Q24H [facility] Stop: 11/27/16 09:01 Last Admin: 11/18/16 09:26 Dose: 200 mls/hr Potassium Chloride 40 meq/ (Dextrose/Sodium Chloride) 1,020 mls @ 100 mls/hr IV .[id number] [facility] Last Admin: 11/19/16 04:54 Dose: 100 mls/hr Acetaminophen (Ofirmev) 1,000 mg in 100 mls @ 400 mls/hr IVPB Q6H PRN PRN Reason: Pain, moderate (4-7) Stop: 11/20/16 08:47 Last Admin: 11/19/16 05:46 Dose: 400 mls/hr Metoprolol Tartrate (Lopressor) 5 mg IVP Q6H PRN PRN Reason: tachycardia Multi-Ingredient Ointment (Hydrophor Oint) 0 gm TOP Q6H PRN PRN Reason: Dry lip Ondansetron HCl (Zofran Inj) 4 mg IVP Q4H PRN PRN Reason: Nausea/Vomiting Last Admin: 11/17/16 05:01 Dose: 4 mg Pantoprazole Sodium (Protonix Inj) 40 mg IVP Q12 [facility] Last Admin: 11/18/16 22:09 Dose: 40 mg Petrolatum (Desitin Maximum Strength Topical 40% Oint) 1 gm TOP Q4H PRN PRN Reason: Rash Last Admin: 10/23/16 22:39 Dose: 1 applic Propranolol HCl (Inderal La) 120 mg PO DAILY [facility] Last Admin: 11/18/16 09:28 Dose: Not Given Sucralfate (Carafate Oral Susp) 1 gm PO BID [facility] Last Admin: 11/18/16 17:24 Dose: Not Given Valganciclovir (Valcyte) 900 mg PO DAILY [facility] Last Admin: 11/14/16 11:09 Dose: Not Given - Labs Labs: 11/19/16 06:30 11/19/16 06:30 PT 12.6 Seconds (9.9-11.8) H 11/17/16 06:00 INR 1.17 (0.93-1.08) H 11/17/16 06:00 APTT 32.9 Seconds (23.7-30.8) H 11/17/16 06:00 - Constitutional Appears: No Acute Distress - Head Exam Head Exam: ATRAUMATIC - Eye Exam Eye Exam: EOMI, PERRL - ENT Exam ENT Exam: Mucous Membranes Moist - Respiratory Exam Respiratory Exam: Clear to Ausculation Bilateral - Cardiovascular Exam Cardiovascular Exam: REGULAR RHYTHM - GI/Abdominal Exam Additional comments: somewhat tender in perioperative area. colostomy bag with some black fecal matter, no overt blood. Colostomy pink and viable. No rebound tenderness, no involuntary guarding - Neurological Exam Neuro motor strength exam: Left Upper Extremity: 5, Right Upper Extremity: 5, Left Lower Extremity: 5, Right Lower Extremity: 5 - Psychiatric Exam Psychiatric exam: Normal Affect Additional comments: alert and oriented x 3 - Skin Skin Exam: Normal Color Assessment and Plan - Assessment and Plan (Free Text) Assessment: 61 yo female with advanced colon CA, no s/p resection with palliative colostomy. colostomy pink and viable, some black fecal matter in colostomy bag. No overt blood. abdo appropriately tender for early postoperative period-- patient is on SUPERVISORY IT SPECIALIST. Patient does have a h/o chronic sinus tach that was worked up by Dr. Busby preoperatively and is on Propranolol PO, which we will continue as she is cleared for clear liquids by surgery. Despite early postoperative period, Hb slight drop from 10.1 to 9.3-->there is NO OVERT BLEEDING and no signs of end-organ dysfunction that otherwise could be attributed to hemorrage. I belevie that in this situation (postop period, advance malignancy) benefits of heparin s/c prophylaxis against DVT, once cleared by surgical service. Overall plan: pain control, OOB to chair, IS, chest PT, early mobilization once pain controlled, serial CBC, PT, DVT/GI prophylaxis, abx ccm time 40 min
[2016-11-19] MEDS: Sucralfate 1 gm/10 ml Oral Susp UD PO SCH ×2 (09:12→18:04)
[2016-11-19] MEDS: Propranolol 60 mg ER Cap PO SCH (09:13)
[2016-11-19] MEDS: Collagenase 250 Units/gm Ointment(30 gm) TOP SCH ×2 (09:14→18:05)
--- NOTE | 2016-11-19 10:39 | CP.PCM.PN ---
Subjective - Date & Time of Evaluation Date of Evaluation: 11/19/16 Time of Evaluation: 09:20 - Subjective Subjective: Patient is feeling better today, able to swallow better, no fevers overnight, less pain in the abdomen. Objective - Vital Signs/Intake and Output Vital Signs (last 24 hours): Temp Pulse Resp BP Pulse Ox 98 F 111 H 18 164/88 H 100 11/19/16 04:00 11/19/16 06:00 11/19/16 06:00 11/19/16 06:00 11/19/16 06:00 Intake and Output: 11/19/16 11/19/16 06:59 18:59 Intake Total 1260 Output Total 1140 Balance 120 - Medications Medications: Current Medications Acetaminophen (Tylenol 650 Mg Supp) 650 mg RC Q4H PRN PRN Reason: Fever >100.4 F Last Admin: 11/01/16 21:18 Dose: 650 mg Collagenase (Santyl) 1 gm TOP BID [facility] Last Admin: 11/18/16 19:00 Dose: 1 applic Al Hydrox/Mg Hydrox/Simethicone 30 ml/Diphenhydramine HCl 75 mg/Lidocaine 30 ml 0 ml PO Q2H PRN PRN Reason: Mouth/Throat Pain Last Admin: 11/07/16 09:00 Dose: 15 ml Diphenhydramine HCl (Benadryl) 25 mg IVP Q4H PRN PRN Reason: Allergy symptoms Last Admin: 11/15/16 01:09 Dose: 25 mg Ergocalciferol (Drisdol 50,000 Intl Units Cap) 1 cap PO Q7D [facility] Last Admin: 11/12/16 15:18 Dose: Not Given Furosemide (Lasix) 20 mg IVP Q12 [facility] Last Admin: 11/18/16 22:15 Dose: 20 mg Home Med (Home Med) 1 unit PO Q12H PRN PRN Reason: Inflammation Last Admin: 10/18/16 11:03 Dose: 1 unit Hydromorphone HCl (Dilaudid-Hp 1 Mg/Ml Regional Account Executive) 25 mls @ 0.5 mls/hr IV PRN PRN; Protocol PRN Reason: PETROLEUM GEOLOGIST PER MD ORDER Last Admin: 11/19/16 01:34 Dose: 0.5 mls/hr Daptomycin 440 mg/ Sodium (Chloride) 100 mls @ 200 mls/hr IV Q24H [facility] Stop: 11/27/16 09:01 Last Admin: 11/18/16 09:26 Dose: 200 mls/hr Potassium Chloride 40 meq/ (Dextrose/Sodium Chloride) 1,020 mls @ 100 mls/hr IV .[id number] [facility] Last Admin: 11/19/16 04:54 Dose: 100 mls/hr Acetaminophen (Ofirmev) 1,000 mg in 100 mls @ 400 mls/hr IVPB Q6H PRN PRN Reason: Pain, moderate (4-7) Stop: 11/20/16 08:47 Last Admin: 11/19/16 05:46 Dose: 400 mls/hr Metoprolol Tartrate (Lopressor) 5 mg IVP Q6H PRN PRN Reason: tachycardia Multi-Ingredient Ointment (Hydrophor Oint) 0 gm TOP Q6H PRN PRN Reason: Dry lip Ondansetron HCl (Zofran Inj) 4 mg IVP Q4H PRN PRN Reason: Nausea/Vomiting Last Admin: 11/17/16 05:01 Dose: 4 mg Pantoprazole Sodium (Protonix Inj) 40 mg IVP Q12 [facility] Last Admin: 11/18/16 22:09 Dose: 40 mg Petrolatum (Desitin Maximum Strength Topical 40% Oint) 1 gm TOP Q4H PRN PRN Reason: Rash Last Admin: 10/23/16 22:39 Dose: 1 applic Propranolol HCl (Inderal La) 120 mg PO DAILY [facility] Last Admin: 11/18/16 09:28 Dose: Not Given Sucralfate (Carafate Oral Susp) 1 gm PO BID [facility] Last Admin: 11/18/16 17:24 Dose: Not Given Valganciclovir (Valcyte) 900 mg PO DAILY [facility] Last Admin: 11/14/16 11:09 Dose: Not Given - Labs Labs: 11/19/16 06:30 11/19/16 06:30 PT 12.6 Seconds (9.9-11.8) H 11/17/16 06:00 INR 1.17 (0.93-1.08) H 11/17/16 06:00 APTT 32.9 Seconds (23.7-30.8) H 11/17/16 06:00 - Constitutional Appears: Chronically Ill - Head Exam Head Exam: NORMAL INSPECTION - Neck Exam Neck Exam: absent: Meningismus - Respiratory Exam Respiratory Exam: Decreased Breath Sounds - Cardiovascular Exam Cardiovascular Exam: +S1, +S2 - GI/Abdominal Exam GI & Abdominal Exam: Soft. 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 in repeat blood cx bottle, consider bacteremia R/O secondary to PICC line R/O contamination (since only 1 of 4 bottles were positive for the organism) Partial small bowel obstruction, persistent with colonic stricture S/P exploratory laparotomy, lysis of adhesions, repair of small bowel enterotomy and partial sigmoidectomy with end-colostomy POD #2 Acute stomatitis and mucositis, as well as esophageal ulcers (esophagitis) and enteritis - no CMV noted on biopsy sample of the esophageal ulcers - consider Susy Esophagitis Neutropenia probably from chemotherapy, resolved HTN 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 S/P colectomy in 2015 history of UTI GERD anxiety Plan continue Mycamine and Daptomycin (repeat blood cx are negative) - will plan to complete at least 14 days of Mycamine from time of port removal and then switch to PO Diflucan for another 2 weeks (total 4 weeks of antifungal therapy) will hold Valganciclovir since there was no evidence of CMV on the biopsy of the ulcers in the esophagus; will also consider antibiotic lock therapy since the platelets are still relatively low and removal of the PICC line may be dangerous currently - will await plan to replace PICC line Will continue to follow clinically Overall prognosis is poor
--- NOTE | 2016-11-19 11:30 | CP.PCM.PN ---
<Yoana Osei - Last Filed: 11/19/16 11:30> Subjective - Date & Time of Evaluation Date of Evaluation: 11/19/16 Time of Evaluation: 09:00 - Subjective Subjective: S&E at bedside. NO acute distress, does get abdominal pain. right lower quadrant , using MATHEMATICAL SCIENCES PROFESSOR pump as needed. No N/V, SPB or chest pain. Colostomy with dark stool , no BRB. No acute overnight events reported. Objective - Vital Signs/Intake and Output Vital Signs (last 24 hours): Temp Pulse Resp BP Pulse Ox 98.2 F 108 H 23 152/88 H 100 11/19/16 08:00 11/19/16 10:00 11/19/16 10:00 11/19/16 10:00 11/19/16 10:00 Intake and Output: 11/19/16 11/19/16 06:59 18:59 Intake Total 1260 Output Total 1140 Balance 120 - Medications Medications: Current Medications Acetaminophen (Tylenol 650 Mg Supp) 650 mg RC Q4H PRN PRN Reason: Fever >100.4 F Last Admin: 11/01/16 21:18 Dose: 650 mg Collagenase (Santyl) 1 gm TOP BID [facility] Last Admin: 11/19/16 09:14 Dose: 1 applic Al Hydrox/Mg Hydrox/Simethicone 30 ml/Diphenhydramine HCl 75 mg/Lidocaine 30 ml 0 ml PO Q2H PRN PRN Reason: Mouth/Throat Pain Last Admin: 11/07/16 09:00 Dose: 15 ml Diphenhydramine HCl (Benadryl) 25 mg IVP Q4H PRN PRN Reason: Allergy symptoms Last Admin: 11/15/16 01:09 Dose: 25 mg Ergocalciferol (Drisdol 50,000 Intl Units Cap) 1 cap PO Q7D [facility] Last Admin: 11/12/16 15:18 Dose: Not Given Furosemide (Lasix) 20 mg IVP Q12 [facility] Last Admin: 11/19/16 09:13 Dose: 20 mg Home Med (Home Med) 1 unit PO Q12H PRN PRN Reason: Inflammation Last Admin: 10/18/16 11:03 Dose: 1 unit Hydromorphone HCl (Dilaudid-Hp 1 Mg/Ml Mds Manager) 25 mls @ 0.5 mls/hr IV PRN PRN; Protocol PRN Reason: MATHEMATICAL SCIENCES PROFESSOR PER MD ORDER Last Admin: 11/19/16 01:34 Dose: 0.5 mls/hr Daptomycin 440 mg/ Sodium (Chloride) 100 mls @ 200 mls/hr IV Q24H [facility] Stop: 11/27/16 09:01 Last Admin: 11/19/16 09:15 Dose: 200 mls/hr Potassium Chloride 40 meq/ (Dextrose/Sodium Chloride) 1,020 mls @ 100 mls/hr IV .[id number] [facility] Last Admin: 11/19/16 04:54 Dose: 100 mls/hr Acetaminophen (Ofirmev) 1,000 mg in 100 mls @ 400 mls/hr IVPB Q6H PRN PRN Reason: Pain, moderate (4-7) Stop: 11/20/16 08:47 Last Admin: 11/19/16 05:46 Dose: 400 mls/hr Metoprolol Tartrate (Lopressor) 5 mg IVP Q6H PRN PRN Reason: tachycardia Multi-Ingredient Ointment (Hydrophor Oint) 0 gm TOP Q6H PRN PRN Reason: Dry lip Ondansetron HCl (Zofran Inj) 4 mg IVP Q4H PRN PRN Reason: Nausea/Vomiting Last Admin: 11/17/16 05:01 Dose: 4 mg Pantoprazole Sodium (Protonix Inj) 40 mg IVP Q12 [facility] Last Admin: 11/19/16 09:14 Dose: 40 mg Petrolatum (Desitin Maximum Strength Topical 40% Oint) 1 gm TOP Q4H PRN PRN Reason: Rash Last Admin: 10/23/16 22:39 Dose: 1 applic Propranolol HCl (Inderal La) 120 mg PO DAILY [facility] Last Admin: 11/19/16 09:13 Dose: 120 mg Sucralfate (Carafate Oral Susp) 1 gm PO BID [facility] Last Admin: 11/19/16 09:12 Dose: 1 gm Valganciclovir (Valcyte) 900 mg PO DAILY [facility] Last Admin: 11/14/16 11:09 Dose: Not Given - Labs Labs: 11/19/16 06:30 11/19/16 06:30 PT 12.6 Seconds (9.9-11.8) H 11/17/16 06:00 INR 1.17 (0.93-1.08) H 11/17/16 06:00 APTT 32.9 Seconds (23.7-30.8) H 11/17/16 06:00 - Constitutional Appears: No Acute Distress - Head Exam Head Exam: NORMOCEPHALIC - Eye Exam Eye Exam: Normal appearance. absent: Scleral icterus - Neck Exam Neck Exam: Normal Inspection - Respiratory Exam Respiratory Exam: NORMAL BREATHING PATTERN. absent: Rhonchi, Wheezes, Respiratory Distress - Cardiovascular Exam Cardiovascular Exam: +S1, +S2 - GI/Abdominal Exam GI & Abdominal Exam: Soft, Tenderness. absent: Guarding, Rebound Additional comments: right quadrant, surgical abdomen, left colostomy drain dark black stool, liquid , JPdrain (right side) serosang, mid abdominal dressing D/I - Extremities Exam Extremities Exam: Pedal Edema. 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 Null <Tong Null V - Last Filed: 11/19/16 23:56> Objective - Vital Signs/Intake and Output Vital Signs (last 24 hours): Temp Pulse Resp BP Pulse Ox 98 F 70 18 166/99 H 97 11/19/16 16:00 11/19/16 16:00 11/19/16 16:00 11/19/16 22:09 11/19/16 16:00 Intake and Output: 11/19/16 11/20/16 18:59 06:59 Intake Total 580 Output Total 3040 Balance -2460 - Medications Medications: Current Medications Acetaminophen (Tylenol 650 Mg Supp) 650 mg RC Q4H PRN PRN Reason: Fever >100.4 F Last Admin: 11/01/16 21:18 Dose: 650 mg Collagenase (Santyl) 1 gm TOP BID [facility] Last Admin: 11/19/16 18:05 Dose: 1 applic Al Hydrox/Mg Hydrox/Simethicone 30 ml/Diphenhydramine HCl 75 mg/Lidocaine 30 ml 0 ml PO Q2H PRN PRN Reason: Mouth/Throat Pain Last Admin: 11/07/16 09:00 Dose: 15 ml Diphenhydramine HCl (Benadryl) 25 mg IVP Q4H PRN PRN Reason: Allergy symptoms Last Admin: 11/15/16 01:09 Dose: 25 mg Ergocalciferol (Drisdol 50,000 Intl Units Cap) 1 cap PO Q7D [facility] Last Admin: 11/19/16 18:04 Dose: Not Given Fentanyl (Duragesic) 1 patch TD Q72H [facility] Last Admin: 11/19/16 15:25 Dose: 1 patch Furosemide (Lasix) 20 mg IVP Q12 [facility] Last Admin: 11/19/16 22:09 Dose: 20 mg Home Med (Home Med) 1 unit PO Q12H PRN PRN Reason: Inflammation Last Admin: 10/18/16 11:03 Dose: 1 unit Daptomycin 440 mg/ Sodium (Chloride) 100 mls @ 200 mls/hr IV Q24H [facility] Stop: 11/27/16 09:01 Last Admin: 11/19/16 09:15 Dose: 200 mls/hr Acetaminophen (Ofirmev) 1,000 mg in 100 mls @ 400 mls/hr IVPB Q6H PRN PRN Reason: Pain, moderate (4-7) Stop: 11/20/16 08:47 Last Admin: 11/19/16 05:46 Dose: 400 mls/hr Potassium Chloride 20 meq/ (Dextrose) 1,010 mls @ 100 mls/hr IV .Q10H6M [facility] Last Admin: 11/19/16 14:59 Dose: 100 mls/hr Hydromorphone HCl (Dilaudid-Hp 1 Mg/Ml Mds Manager) 25 mls @ 0.5 mls/hr IV PRN PRN; Protocol PRN Reason: MATHEMATICAL SCIENCES PROFESSOR PER MD ORDER Last Admin: 11/19/16 18:24 Dose: 0.5 mls/hr Metoprolol Tartrate (Lopressor) 5 mg IVP Q6H PRN PRN Reason: tachycardia Multi-Ingredient Ointment (Hydrophor Oint) 0 gm TOP Q6H PRN PRN Reason: Dry lip Ondansetron HCl (Zofran Inj) 4 mg IVP Q4H PRN PRN Reason: Nausea/Vomiting Last Admin: 11/17/16 05:01 Dose: 4 mg Pantoprazole Sodium (Protonix Inj) 40 mg IVP Q12 [facility] Last Admin: 11/19/16 22:09 Dose: 40 mg Petrolatum (Desitin Maximum Strength Topical 40% Oint) 1 gm TOP Q4H PRN PRN Reason: Rash Last Admin: 10/23/16 22:39 Dose: 1 applic Potassium Chloride (K-Dur 20 Meq Er Tab) 40 meq PO DAILY [facility] Propranolol HCl (Inderal La) 120 mg PO DAILY [facility] Last Admin: 11/19/16 09:13 Dose: 120 mg Sucralfate (Carafate Oral Susp) 1 gm PO BID [facility] Last Admin: 11/19/16 18:04 Dose: 1 gm Valganciclovir (Valcyte) 900 mg PO DAILY [facility] Last Admin: 11/14/16 11:09 Dose: Not Given - Labs Labs: 11/19/16 13:30 11/19/16 13:00 PT 12.6 Seconds (9.9-11.8) H 11/17/16 06:00 INR 1.17 (0.93-1.08) H 11/17/16 06:00 APTT 32.9 Seconds (23.7-30.8) H 11/17/16 06:00 Attending/Attestation - Attestation I have personally seen and examined this patient.: Yes I have fully participated in the care of the patient.: Yes I have reviewed all pertinent clinical information, including history, physical exam and plan: Yes Notes (Text): this
--- NOTE | 2016-11-19 13:13 | CP.PCM.PN ---
Subjective - Date & Time of Evaluation Date of Evaluation: 11/19/16 Time of Evaluation: 13:00 - Subjective Subjective: Awake, alert s/P laparotomy, NATE, Colostomy POD #2 Objective - Vital Signs/Intake and Output Vital Signs (last 24 hours): Temp Pulse Resp BP Pulse Ox 98.2 F 89 10 L 139/77 100 11/19/16 08:00 11/19/16 11:00 11/19/16 11:00 11/19/16 11:00 11/19/16 11:00 Intake and Output: 11/19/16 11/19/16 06:59 18:59 Intake Total 1260 Output Total 1140 Balance 120 - Medications Medications: Current Medications Acetaminophen (Tylenol 650 Mg Supp) 650 mg RC Q4H PRN PRN Reason: Fever >100.4 F Last Admin: 11/01/16 21:18 Dose: 650 mg Collagenase (Santyl) 1 gm TOP BID [facility]GUE[facility] Last Admin: 11/19/16 09:14 Dose: 1 applic Al Hydrox/Mg Hydrox/Simethicone 30 ml/Diphenhydramine HCl 75 mg/Lidocaine 30 ml 0 ml PO Q2H PRN PRN Reason: Mouth/Throat Pain Last Admin: 11/07/16 09:00 Dose: 15 ml Diphenhydramine HCl (Benadryl) 25 mg IVP Q4H PRN PRN Reason: Allergy symptoms Last Admin: 11/15/16 01:09 Dose: 25 mg Ergocalciferol (Drisdol 50,000 Intl Units Cap) 1 cap PO Q7D [facility]GUE[facility] Last Admin: 11/12/16 15:18 Dose: Not Given Furosemide (Lasix) 20 mg IVP Q12 [facility]GUE[facility] Last Admin: 11/19/16 09:13 Dose: 20 mg Home Med (Home Med) 1 unit PO Q12H PRN PRN Reason: Inflammation Last Admin: 10/18/16 11:03 Dose: 1 unit Hydromorphone HCl (Dilaudid-Hp 1 Mg/Ml Art Therapy Specialist) 25 mls @ 0.5 mls/hr IV PRN PRN; Protocol PRN 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: 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 Last Admin: 11/19/16 01:34 Dose: 0.5 mls/hr Daptomycin 440 mg/ Sodium (Chloride) 100 mls @ 200 mls/hr IV Q24H [facility] Stop: 11/27/16 09:01 Last Admin: 11/19/16 09:15 Dose: 200 mls/hr Acetaminophen (Ofirmev) 1,000 mg in 100 mls @ 400 mls/hr IVPB Q6H PRN PRN Reason: Pain, moderate (4-7) Stop: 11/20/16 08:47 Last Admin: 11/19/16 05:46 Dose: 400 mls/hr Magnesium Sulfate 1 gm/ Sodium (Chloride) 102 mls @ 102 mls/hr IV ONCE ONE Stop: 11/19/16 14:06 Potassium Chloride 20 meq/ (Dextrose) 1,010 mls @ 100 mls/hr IV .Q10H6M [facility] Metoprolol Tartrate (Lopressor) 5 mg IVP Q6H PRN PRN Reason: tachycardia Multi-Ingredient Ointment (Hydrophor Oint) 0 gm TOP Q6H PRN PRN Reason: Dry lip Ondansetron HCl (Zofran Inj) 4 mg IVP Q4H PRN PRN Reason: Nausea/Vomiting Last Admin: 11/17/16 05:01 Dose: 4 mg Pantoprazole Sodium (Protonix Inj) 40 mg IVP Q12 [facility] Last Admin: 11/19/16 09:14 Dose: 40 mg Petrolatum (Desitin Maximum Strength Topical 40% Oint) 1 gm TOP Q4H PRN PRN Reason: Rash Last Admin: 10/23/16 22:39 Dose: 1 applic Propranolol HCl (Inderal La) 120 mg PO DAILY [facility] Last Admin: 11/19/16 09:13 Dose: 120 mg Sucralfate (Carafate Oral Susp) 1 gm PO BID [facility] Last Admin: 11/19/16 09:12 Dose: 1 gm Valganciclovir (Valcyte) 900 mg PO DAILY [facility] Last Admin: 11/14/16 11:09 Dose: Not Given - Labs Labs: 11/19/16 06:30 11/19/16 06:30 PT 12.6 Seconds (9.9-11.8) H 11/17/16 06:00 INR 1.17 (0.93-1.08) H 11/17/16 06:00 APTT 32.9 Seconds (23.7-30.8) H 11/17/16 06:00 - Constitutional Appears: Cachectic, Chronically Ill - Head Exam Head Exam: NORMAL INSPECTION, NORMOCEPHALIC - ENT Exam ENT Exam: Mucous Membranes Dry - Respiratory Exam Respiratory Exam: Rhonchi, NORMAL BREATHING PATTERN - Cardiovascular Exam Cardiovascular Exam: REGULAR RHYTHM, +S1, +S2 - GI/Abdominal Exam GI & Abdominal Exam: Distended, Diminished Bowel Sounds Additional comments: + colostomy - Extremities Exam Extremities Exam: Pedal Edema Assessment and Plan (1) Colon tumor Status: Chronic (2) Hypoalbuminemia Status: Acute - Assessment and Plan (Free Text) Assessment: Assessment and Plan (1) Colon tumor Status: Chronic s/p laparomy, colostomy (2) Hypoalbuminemia Status: Acute - Assessment and Plan (Free Text) Assessment: SEVERE MALNUTRITION, NOW WITH FUNGUS IN BLOOD, Status: Acute (3) GIB: severe anemia, con't management per GI/Hematology BLEEDING SCAN -VE (4) Hypernatremia: Change IVF to D5W (5) SEVERE HYPOKALEMIA: CONTINUE AGGRESSIVE K REPLACEMENT, KCL 20meq X2 (6) Hypomagnesemia :s/p replacement, 1GM IVBP (7) S/P palliative surgery
[2016-11-19 13:25] LABS: BLOOD UREA NITROGEN 22 mg/dL (7-21); CALCIUM 7.9 mg/dL (8.4-10.5); GFR AFRICAN-AMERICAN > 60; GFR NON-AFRICAN AMERICAN > 60
--- NOTE | 2016-11-19 13:41 | CP.PCM.PN ---
Subjective - Date & Time of Evaluation Date of Evaluation: 11/19/16 Time of Evaluation: 07:30 - Subjective Subjective: Denies palpitation, SOB, Chest pain. Objective - Vital Signs/Intake and Output Vital Signs (last 24 hours): Temp Pulse Resp BP Pulse Ox 98.2 F 89 10 L 139/77 100 11/19/16 08:00 11/19/16 11:00 11/19/16 11:00 11/19/16 11:00 11/19/16 11:00 Intake and Output: 11/19/16 11/19/16 06:59 18:59 Intake Total 1260 Output Total 1140 Balance 120 - Medications Medications: Current Medications Acetaminophen (Tylenol 650 Mg Supp) 650 mg RC Q4H PRN PRN Reason: Fever >100.4 F Last Admin: 11/01/16 21:18 Dose: 650 mg Collagenase (Santyl) 1 gm TOP BID [facility] Last Admin: 11/19/16 09:14 Dose: 1 applic Al Hydrox/Mg Hydrox/Simethicone 30 ml/Diphenhydramine HCl 75 mg/Lidocaine 30 ml 0 ml PO Q2H PRN PRN Reason: Mouth/Throat Pain Last Admin: 11/07/16 09:00 Dose: 15 ml Diphenhydramine HCl (Benadryl) 25 mg IVP Q4H PRN PRN Reason: Allergy symptoms Last Admin: 11/15/16 01:09 Dose: 25 mg Ergocalciferol (Drisdol 50,000 Intl Units Cap) 1 cap PO Q7D [facility] Last Admin: 11/12/16 15:18 Dose: Not Given Furosemide (Lasix) 20 mg IVP Q12 [facility]UE[facility] Last Admin: 11/19/16 09:13 Dose: 20 mg Home Med (Home Med) 1 unit PO Q12H PRN PRN Reason: Inflammation Last Admin: 10/18/16 11:03 Dose: 1 unit Hydromorphone HCl (Dilaudid-Hp 1 Mg/Ml Mask Inspector) 25 mls @ 0.5 mls/hr IV PRN PRN; Protocol PRN Reason: WEEDER THINNER PER MD ORDER Last Admin: 11/19/16 01:34 Dose: 0.5 mls/hr Daptomycin 440 mg/ Sodium (Chloride) 100 mls @ 200 mls/hr IV Q24H [facility] Stop: 11/27/16 09:01 Last Admin: 11/19/16 09:15 Dose: 200 mls/hr Acetaminophen (Ofirmev) 1,000 mg in 100 mls @ 400 mls/hr IVPB Q6H PRN PRN Reason: Pain, moderate (4-7) Stop: 11/20/16 08:47 Last Admin: 11/19/16 05:46 Dose: 400 mls/hr Magnesium Sulfate 1 gm/ Sodium (Chloride) 102 mls @ 102 mls/hr IV ONCE ONE Stop: 11/19/16 14:06 Potassium Chloride 20 meq/ (Dextrose) 1,010 mls @ 100 mls/hr IV .Q10H6M [facility] Metoprolol Tartrate (Lopressor) 5 mg IVP Q6H PRN PRN Reason: tachycardia Multi-Ingredient Ointment (Hydrophor Oint) 0 gm TOP Q6H PRN PRN Reason: Dry lip Ondansetron HCl (Zofran Inj) 4 mg IVP Q4H PRN PRN Reason: Nausea/Vomiting Last Admin: 11/17/16 05:01 Dose: 4 mg Pantoprazole Sodium (Protonix Inj) 40 mg IVP Q12 [facility] Last Admin: 11/19/16 09:14 Dose: 40 mg Petrolatum (Desitin Maximum Strength Topical 40% Oint) 1 gm TOP Q4H PRN PRN Reason: Rash Last Admin: 10/23/16 22:39 Dose: 1 applic Propranolol HCl (Inderal La) 120 mg PO DAILY [facility] Last Admin: 11/19/16 09:13 Dose: 120 mg Sucralfate (Carafate Oral Susp) 1 gm PO BID [facility] Last Admin: 11/19/16 09:12 Dose: 1 gm Valganciclovir (Valcyte) 900 mg PO DAILY [facility] Last Admin: 11/14/16 11:09 Dose: Not Given - Labs Labs: 11/19/16 06:30 11/19/16 13:00 PT 12.6 Seconds (9.9-11.8) H 11/17/16 06:00 INR 1.17 (0.93-1.08) H 11/17/16 06:00 APTT 32.9 Seconds (23.7-30.8) H 11/17/16 06:00 - Constitutional Appears: Non-toxic - Head Exam Head Exam: ATRAUMATIC - Eye Exam Eye Exam: Conjunctival injection - ENT Exam ENT Exam: Mucous Membranes Dry - Respiratory Exam Respiratory Exam: Clear to Ausculation Bilateral - Cardiovascular Exam Cardiovascular Exam: Tachycardia - GI/Abdominal Exam GI & Abdominal Exam: Distended Additional comments: S/p Colostomy, s/p Exp lap. post surgical Abd. Assessment and Plan - Assessment and Plan (Free Text) Assessment: Ca colon S/p Expl lap, lysis of adhesion, s/p colostomy Tachcardiac protein calk malnutriotion anemia Plan: Resue=me Inderal 120 mg po tx from ICu discussed with team taking care off. monitor lytes, herat rate, BP increase nutritional support .
[2016-11-19 13:53] LABS: BASO # 0.01 K/mm3 (0.0-2.0); BASO % 0.1 % (0.0-3.0); EOS # 0.2 (0.0-0.7); EOS % 1.9 % (1.5-5.0); GRAN # 7.01 (1.4-6.5); GRAN % 88.3 % (50.0-68.0); HEMOGLOBIN 9.3 gm/dL (12.0-16.0); LYMPH # 0.5 (1.2-3.4); LYMPH % 5.9 % (22.0-35.0); MEAN CELL VOLUME 98.6 fL (80.0-105.0); MEAN CORPUSCULAR HGB CONC 33.5 g/dl (31.0-37.0); MEAN PLATELET VOLUME 11.8 fl (7.0-11.0); MONO # 0.3 (0.1-0.6); MONO % 3.8 % (1.0-6.0); PLATELET COUNT 85 10^3/uL (120.0-450.0); RBC 2.82 10^6/uL (3.5-6.1); RED CELL DISTRIBUTION WIDTH 19.4 % (11.5-14.5); WHITE BLOOD COUNT 7.9 10^3/ul (4.5-11.0)
--- NOTE | 2016-11-19 13:54 | CP.PCM.PN ---
<Cassie Arcos - Last Filed: 11/20/16 06:37> Subjective - Date & Time of Evaluation Date of Evaluation: 11/19/16 Time of Evaluation: 13:53 - Subjective Subjective: PGY-[address] Hendricks Pt seen and examined. dark stool in ostomy No dizziness, CP, palpitation Abdominal pain 2/10 controlled by MYSQL DBA DEEJAY serosanguinous 50 cc from 7a to 2p Objective - Vital Signs/Intake and Output Vital Signs (last 24 hours): Temp Pulse Resp BP Pulse Ox 98.2 F 89 10 L 139/77 100 11/19/16 08:00 11/19/16 11:00 11/19/16 11:00 11/19/16 11:00 11/19/16 11:00 Intake and Output: 11/19/16 11/19/16 06:59 18:59 Intake Total 1260 Output Total 1140 Balance 120 - Medications Medications: Current Medications Acetaminophen (Tylenol 650 Mg Supp) 650 mg RC Q4H PRN PRN Reason: Fever >100.4 F Last Admin: 11/01/16 21:18 Dose: 650 mg Collagenase (Santyl) 1 gm TOP BID [facility]GUE[facility] Last Admin: 11/19/16 09:14 Dose: 1 applic Al Hydrox/Mg Hydrox/Simethicone 30 ml/Diphenhydramine HCl 75 mg/Lidocaine 30 ml 0 ml PO Q2H PRN PRN Reason: Mouth/Throat Pain Last Admin: 11/07/16 09:00 Dose: 15 ml Diphenhydramine HCl (Benadryl) 25 mg IVP Q4H PRN PRN Reason: Allergy symptoms Last Admin: 11/15/16 01:09 Dose: 25 mg Ergocalciferol (Drisdol 50,000 Intl Units Cap) 1 cap PO Q7D [facility]UE[facility] Last Admin: 11/12/16 15:18 Dose: Not Given Furosemide (Lasix) 20 mg IVP Q12 [facility] Last Admin: 11/19/16 09:13 Dose: 20 mg Home Med (Home Med) 1 unit PO Q12H PRN PRN Reason: Inflammation Last Admin: 10/18/16 11:03 Dose: 1 unit Hydromorphone HCl (Dilaudid-Hp 1 Mg/Ml Spring Upholsterer) 25 mls @ 0.5 mls/hr IV PRN PRN; Protocol PRN Reason: MYSQL DBA PER MD ORDER Last Admin: 11/19/16 01:34 Dose: 0.5 mls/hr Daptomycin 440 mg/ Sodium (Chloride) 100 mls @ 200 mls/hr IV Q24H [facility] Stop: 11/27/16 09:01 Last Admin: 11/19/16 09:15 Dose: 200 mls/hr Acetaminophen (Ofirmev) 1,000 mg in 100 mls @ 400 mls/hr IVPB Q6H PRN PRN Reason: Pain, moderate (4-7) Stop: 11/20/16 08:47 Last Admin: 11/19/16 05:46 Dose: 400 mls/hr Magnesium Sulfate 1 gm/ Sodium (Chloride) 102 mls @ 102 mls/hr IV ONCE ONE Stop: 11/19/16 14:06 Potassium Chloride 20 meq/ (Dextrose) 1,010 mls @ 100 mls/hr IV .Q10H6M [facility] [place] Metoprolol Tartrate (Lopressor) 5 mg IVP Q6H PRN PRN Reason: tachycardia Multi-Ingredient Ointment (Hydrophor Oint) 0 gm TOP Q6H PRN PRN Reason: Dry lip Ondansetron HCl (Zofran Inj) 4 mg IVP Q4H PRN PRN Reason: Nausea/Vomiting Last Admin: 11/17/16 05:01 Dose: 4 mg Pantoprazole Sodium (Protonix Inj) 40 mg IVP Q12 [facility] [place] Last Admin: 11/19/16 09:14 Dose: 40 mg Petrolatum (Desitin Maximum Strength Topical 40% Oint) 1 gm TOP Q4H PRN PRN Reason: Rash Last Admin: 10/23/16 22:39 Dose: 1 applic Propranolol HCl (Inderal La) 120 mg PO DAILY [facility] [place] Last Admin: 11/19/16 09:13 Dose: 120 mg Sucralfate (Carafate Oral Susp) 1 gm PO BID [facility] [place] Last Admin: 11/19/16 09:12 Dose: 1 gm Valganciclovir (Valcyte) 900 mg PO DAILY [facility] [place] Last Admin: 11/14/16 11:09 Dose: Not Given - Labs Labs: 11/19/16 06:30 11/19/16 13:00 PT 12.6 Seconds (9.9-11.8) H 11/17/16 06:00 INR 1.17 (0.93-1.08) H 11/17/16 06:00 APTT 32.9 Seconds (23.7-30.8) H 11/17/16 06:00 - Constitutional Appears: No Acute Distress, Chronically Ill - Head Exam Head Exam: ATRAUMATIC, NORMAL INSPECTION, NORMOCEPHALIC - Eye Exam Eye Exam: EOMI, Normal appearance, PERRL - ENT Exam ENT Exam: Mucous Membranes Moist - Respiratory Exam Respiratory Exam: Clear to Ausculation Bilateral. absent: Rales, Rhonchi, Wheezes - Cardiovascular Exam Cardiovascular Exam: REGULAR RHYTHM, +S1, +S2. absent: Murmur - GI/Abdominal Exam GI & Abdominal Exam: Soft, Tenderness (Mid-line incision dressing d/c/i. ostimy skin ), Hypoactive Bowel Sounds, Normal Bowel Sounds - Extremities Exam Extremities Exam: Normal Capillary Refill, Pedal Edema. absent: Calf Tenderness - Neurological Exam Neurological Exam: Alert, Awake, Oriented x3 - Psychiatric Exam Psychiatric exam: Normal Affect, Normal Mood - Skin Skin Exam: Dry, Warm Additional comments: less pale today Assessment and Plan - Assessment and Plan (Free Text) Plan: 61 F with PMHx stage 4 colorectal cancer S/P colectomy in 2014 with stenosis of sigmoid colon and esophageal ulceration of unclear etiology colon cancer stage 4 and Hx Cauda Equina syndrome. She was hospitalized on 10/09 for watery diarrhea with neutropenia. This hospitalization was complicated by (1) neutropenia sepsis due to bacteremia and fungemia. (2) Now mucositis with GI bleed (hematochesia/maroon stool) requiring transfusion. Plan: GI bleed expect to improve s/p Palliative colostomy (11/17). Treatment of bacteremia and fungemia on going. Revisited goal of care on 11/12. Pt states that she is not ready for palliative or comfort care. Family meeting today. #Stage IV metastatic colorectal cancer - hold futher specific treatment for now due to complications - s/p Port-a-cath removal (11/14) #GI bleed, Active, (upper and lower) - dark stool - Hb 9.3 (10.1) - plt 94 - INR 1.17 (11/17) - U/O 2L/24hr - liquid diet - bleeding scan - EGD/colonoscopy: Stricture at sigmoid colon from external pressure, with ulceration - Many ulcers on esophagus found on EGD, pathology negative - Protonix IV BID - Downgrade to clear liquid diet per GI - clear ensure 3/day - Dietitan: under-nutritient - Lasix, Lopressor for BP control; propranolol 1g bid to prevent upper GI bleed # thrombocytopenia - DIC workup negative #Enterococcus Bacteremia and Susy fungemia and CMV on upper GI ulcer - Daptomycin, micafungin - hold Valganciclovir since there was no evidence of CMV on the biopsy of the ulcers in the esophagus - will consider restarting acyclovir - (?) PICC change today #FEN - clear liquid - TPN d/c for bacteremia and fungemia - replete electrolytes - KCL 30 meq in D5W @ 100 - Pepto-Bismol; Drisdol 24407 IU weekly #Dispo - to be dertermined - prognosis guarded - consider rehab replacement at minimum - OOB to chair will not cause GI bleed. Increase pain coverage prior transfer and safety precaution. #Full code #Access - L PICC - minor Will s/r/d/s Dr. Hendricks <Kedar Hendricks P - Last Filed: 11/22/16 20:21> Objective - Vital Signs/Intake and Output Vital Signs (last 24 hours): Temp Pulse Resp BP Pulse Ox 97.6 F 74 20 140/90 97 11/22/16 16:00 11/22/16 16:00 11/22/16 16:00 11/22/16 16:00 11/22/16 16:00 Intake and Output: 11/22/16 11/23/16 18:59 06:59 Intake Total 1745 Output Total 1370 Balance 375 - Medications Medications: Current Medications Acetaminophen (Tylenol 650 Mg Supp) 650 mg RC Q4H PRN PRN Reason: Fever >100.4 F Last Admin: 11/01/16 21:18 Dose: 650 mg Collagenase (Santyl) 1 gm TOP BID [facility] Last Admin: 11/22/16 18:20 Dose: 1 applic Al Hydrox/Mg Hydrox/Simethicone 30 ml/Diphenhydramine HCl 75 mg/Lidocaine 30 ml 0 ml PO Q2H PRN PRN Reason: Mouth/Throat Pain Last Admin: 11/07/16 09:00 Dose: 15 ml Diphenhydramine HCl (Benadryl) 50 mg IVP HS PRN PRN Reason: Insomnia Ergocalciferol (Drisdol 50,000 Intl Units Cap) 1 cap PO Q7D [facility] Last Admin: 11/19/16 18:04 Dose: Not Given Fentanyl (Duragesic) 1 patch TD Q72H [facility] [place] Last Admin: 11/22/16 14:30 Dose: 1 patch Ferrous Sulfate (Feosol) 324 mg PO TID [facility] [place] Last Admin: 11/22/16 19:31 Dose: 324 mg Furosemide (Lasix) 20 mg IVP Q12 [facility] Last Admin: 11/22/16 10:15 Dose: 20 mg Home Med (Home Med) 1 unit PO Q12H PRN PRN Reason: Inflammation Last Admin: 10/18/16 11:03 Dose: 1 unit Daptomycin 440 mg/ Sodium (Chloride) 100 mls @ 200 mls/hr IV Q24H [facility] [place] Stop: 11/27/16 09:01 Last Admin: 11/22/16 11:36 Dose: 200 mls/hr Potassium Chloride 40 meq/ (Dextrose) 1,020 mls @ 60 mls/hr IV .Q17H [facility] [place] Last Admin: 11/22/16 11:40 Dose: 60 mls/hr Micafungin Sodium 100 mg/ (Sodium Chloride) 100 mls @ 100 mls/hr IV DAILY [facility] PRN Reason: Protocol Stop: 11/28/16 10:01 Last Admin: 11/22/16 10:19 Dose: 100 mls/hr Hydromorphone HCl (Dilaudid-Hp 1 Mg/Ml Spring Upholsterer) 25 mls @ 0.5 mls/hr IV PRN PRN PRN Reason: MYSQL DBA PER MD ORDER Last Admin: 11/22/16 12:16 Dose: 0.5 mls/hr Magnesium Oxide (Mag-Ox) 400 mg PO BID [facility] Last Admin: 11/22/16 19:31 Dose: 400 mg Multi-Ingredient Ointment (Hydrophor Oint) 0 gm TOP Q6H PRN PRN Reason: Dry lip Multivitamins (Thera Tab) 1 tab PO 0800 [facility] [place] Last Admin: 11/22/16 10:16 Dose: 1 tab Ondansetron HCl (Zofran Inj) 4 mg IVP Q4H PRN PRN Reason: Nausea/Vomiting Last Admin: 11/22/16 14:30 Dose: 4 mg Pantoprazole Sodium (Protonix Inj) 40 mg IVP Q12 [facility] Last Admin: 11/22/16 10:16 Dose: 40 mg Petrolatum (Desitin Maximum Strength Topical 40% Oint) 1 gm TOP Q4H PRN PRN Reason: Rash Last Admin: 10/23/16 22:39 Dose: 1 applic Potassium Chloride (K-Dur 20 Meq Er Tab) 40 meq PO DAILY [facility] Last Admin: 11/22/16 10:15 Dose: Not Given Propranolol HCl (Inderal La) 120 mg PO DAILY [facility] Last Admin: 11/22/16 10:14 Dose: 120 mg Sucralfate (Carafate Oral Susp) 1 gm PO BID [facility] Last Admin: 11/22/16 19:31 Dose: 1 gm - Labs Labs: 11/22/16 06:30 11/22/16 06:30 PT 12.6 Seconds (9.9-11.8) H 11/17/16 06:00 INR 1.17 (0.93-1.08) H 11/17/16 06:00 APTT 32.9 Seconds (23.7-30.8) H 11/17/16 06:00 Attending/Attestation - Attestation I have personally seen and examined this patient.: Yes I have fully participated in the care of the patient.: Yes I have reviewed all pertinent clinical information, including history, physical exam and plan: Yes
[2016-11-19] MEDS ORDERED: Potassium Chloride 20 mEq ER Tab PO ONE (15:00)
[2016-11-19] MEDS: Ergocalciferol 50,000 Intl Units Cap PO SCH (18:04)
--- NOTE | 2016-11-20 00:18 | CP.PCM.PN ---
Subjective - Date & Time of Evaluation Date of Evaluation: 11/20/16 Time of Evaluation: 00:18 - Subjective Subjective: Patient was seen at bedside. She complains of pain all over body. Has been on dilaudid RADIO EQUIPMENT INSTALLER pump. Has no other complaints. This 61 year old white womaon was admitted with weakness, non bloody diarrhoea following receiving Neulasta. Has PMH of Stage IV colon cancer, cauda equina syndrome, S/P radiation therapy to sacral area, constipation , retention of urine. Objective - Vital Signs/Intake and Output Vital Signs (last 24 hours): Temp Pulse Resp BP Pulse Ox 98 F 70 18 166/99 H 97 11/19/16 16:00 11/19/16 16:00 11/19/16 16:00 11/19/16 22:09 11/19/16 16:00 Intake and Output: 11/19/16 11/20/16 18:59 06:59 Intake Total 580 Output Total 3040 Balance -2460 - Medications Medications: Current Medications Acetaminophen (Tylenol 650 Mg Supp) 650 mg RC Q4H PRN PRN Reason: Fever >100.4 F Last Admin: 11/01/16 21:18 Dose: 650 mg Collagenase (Santyl) 1 gm TOP BID [facility] Last Admin: 11/19/16 18:05 Dose: 1 applic Al Hydrox/Mg Hydrox/Simethicone 30 ml/Diphenhydramine HCl 75 mg/Lidocaine 30 ml 0 ml PO Q2H PRN PRN Reason: Mouth/Throat Pain Last Admin: 11/07/16 09:00 Dose: 15 ml Diphenhydramine HCl (Benadryl) 25 mg IVP Q4H PRN PRN Reason: Allergy symptoms Last Admin: 11/15/16 01:09 Dose: 25 mg Ergocalciferol (Drisdol 50,000 Intl Units Cap) 1 cap PO Q7D [facility] Last Admin: 11/19/16 18:04 Dose: Not Given Fentanyl (Duragesic) 1 patch TD Q72H [facility] Last Admin: 11/19/16 15:25 Dose: 1 patch Furosemide (Lasix) 20 mg IVP Q12 [facility] Last Admin: 11/19/16 22:09 Dose: 20 mg Home Med (Home Med) 1 unit PO Q12H PRN PRN Reason: Inflammation Last Admin: 10/18/16 11:03 Dose: 1 unit Daptomycin 440 mg/ Sodium (Chloride) 100 mls @ 200 mls/hr IV Q24H [facility] Stop: 11/27/16 09:01 Last Admin: 11/19/16 09:15 Dose: 200 mls/hr Acetaminophen (Ofirmev) 1,000 mg in 100 mls @ 400 mls/hr IVPB Q6H PRN PRN Reason: Pain, moderate (4-7) Stop: 11/20/16 08:47 Last Admin: 11/19/16 05:46 Dose: 400 mls/hr Potassium Chloride 20 meq/ (Dextrose) 1,010 mls @ 100 mls/hr IV .Q10H6M [facility] Last Admin: 11/19/16 14:59 Dose: 100 mls/hr Hydromorphone HCl (Dilaudid-Hp 1 Mg/Ml Well Service Derrick Worker) 25 mls @ 0.5 mls/hr IV PRN PRN; Protocol PRN Reason: RADIO EQUIPMENT INSTALLER PER MD ORDER Last Admin: 11/19/16 18:24 Dose: 0.5 mls/hr Metoprolol Tartrate (Lopressor) 5 mg IVP Q6H PRN PRN Reason: tachycardia Multi-Ingredient Ointment (Hydrophor Oint) 0 gm TOP Q6H PRN PRN Reason: Dry lip Ondansetron HCl (Zofran Inj) 4 mg IVP Q4H PRN PRN Reason: Nausea/Vomiting Last Admin: 11/17/16 05:01 Dose: 4 mg Pantoprazole Sodium (Protonix Inj) 40 mg IVP Q12 [facility] Last Admin: 11/19/16 22:09 Dose: 40 mg Petrolatum (Desitin Maximum Strength Topical 40% Oint) 1 gm TOP Q4H PRN PRN Reason: Rash Last Admin: 10/23/16 22:39 Dose: 1 applic Potassium Chloride (K-Dur 20 Meq Er Tab) 40 meq PO DAILY [facility] Propranolol HCl (Inderal La) 120 mg PO DAILY [facility] Last Admin: 11/19/16 09:13 Dose: 120 mg Sucralfate (Carafate Oral Susp) 1 gm PO BID [facility] Last Admin: 11/19/16 18:04 Dose: 1 gm Valganciclovir (Valcyte) 900 mg PO DAILY [facility] Last Admin: 11/14/16 11:09 Dose: Not Given - Labs Labs: 07/10/17 13:30 11/19/16 13:00 PT 12.6 Seconds (9.9-11.8) H 11/17/16 06:00 INR 1.17 (0.93-1.08) H 11/17/16 06:00 APTT 32.9 Seconds (23.7-30.8) H 11/17/16 06:00 - Constitutional Appears: Well, No Acute Distress - Head Exam Head Exam: ATRAUMATIC, NORMAL INSPECTION, NORMOCEPHALIC - Eye Exam Eye Exam: Normal appearance - ENT Exam ENT Exam: Normal External Ear Exam - Neck Exam Neck Exam: Normal Inspection - Respiratory Exam Respiratory Exam: NORMAL BREATHING PATTERN - Cardiovascular Exam Cardiovascular Exam: absent: JVD - GI/Abdominal Exam GI & Abdominal Exam: absent: Distended Additional comments: Deferred. - Rectal Exam Rectal Exam: Deferred - Exam Additional comments: Deferred. - Extremities Exam Extremities Exam: Normal Inspection - Back Exam Back Exam: NORMAL INSPECTION - Neurological Exam Neurological Exam: Alert, Oriented x3 - Psychiatric Exam Psychiatric exam: Normal Affect, Normal Mood - Skin Skin Exam: Normal Color Assessment and Plan - Assessment and Plan (Free Text) Assessment: Bodyache. Colon cancer . Cauda equina syndrome. Anemia. Plan: Dilaudid 0. 5 mg IV now. May need adjustment in RADIO EQUIPMENT INSTALLER. Continue present management.
[2016-11-20] MEDS ORDERED: HYDROmorphone 0.5 mg/0.5 ml ISec IVP STA (00:19)
[2016-11-20 07:44] LABS: BASO # 0.01 K/mm3 (0.0-2.0); BASO % 0.1 % (0.0-3.0); EOS # 0.1 (0.0-0.7); EOS % 1.9 % (1.5-5.0); GRAN # 5.46 (1.4-6.5); HEMOGLOBIN 8.3 gm/dL (12.0-16.0); LYMPH # 0.8 (1.2-3.4); LYMPH % 11.2 % (22.0-35.0); MEAN CORPUSCULAR HEMOGLOBIN 32.4 pg (25.0-35.0); MEAN CORPUSCULAR HGB CONC 33.1 g/dl (31.0-37.0); MEAN PLATELET VOLUME 12.1 fl (7.0-11.0); MONO # 0.3 (0.1-0.6); MONO % 4.8 % (1.0-6.0); PLATELET COUNT 84 10^3/uL (120.0-450.0); RBC 2.56 10^6/uL (3.5-6.1); RED CELL DISTRIBUTION WIDTH 18.1 % (11.5-14.5); WHITE BLOOD COUNT 6.7 10^3/ul (4.5-11.0)
--- NOTE | 2016-11-20 08:58 | CP.PCM.PN ---
<Dereje London - Last Filed: 11/20/16 08:59> Subjective - Date & Time of Evaluation Date of Evaluation: 11/20/16 Time of Evaluation: 08:58 - Subjective Subjective: General Surgery PGY [address] Mccracken Patient seen and examined at bedside this morning. No acute events overnight. Patient states that she is starting to feel better but is still experiencing pain in her lower abdomen. She tolerated full liquid diet and was currently eating eggs this morning during the examination. Patient denies F/C, N/V, SOB or CP. Objective - Vital Signs/Intake and Output Vital Signs (last 24 hours): Temp Pulse Resp BP Pulse Ox 97.8 F 84 19 159/96 H 99 11/20/16 08:26 11/20/16 08:26 11/20/16 08:26 11/20/16 08:26 11/20/16 08:26 Intake and Output: 11/20/16 11/20/16 06:59 18:59 Intake Total 700 Output Total 3440 75 Balance -2740 -75 - Medications Medications: Current Medications Acetaminophen (Tylenol 650 Mg Supp) 650 mg RC Q4H PRN PRN Reason: Fever >100.4 F Last Admin: 11/01/16 21:18 Dose: 650 mg Collagenase (Santyl) 1 gm TOP BID [facility] Last Admin: 11/19/16 18:05 Dose: 1 applic Al Hydrox/Mg Hydrox/Simethicone 30 ml/Diphenhydramine HCl 75 mg/Lidocaine 30 ml 0 ml PO Q2H PRN PRN Reason: Mouth/Throat Pain Last Admin: 11/07/16 09:00 Dose: 15 ml Diphenhydramine HCl (Benadryl) 25 mg IVP Q4H PRN PRN Reason: Allergy symptoms Last Admin: 11/15/16 01:09 Dose: 25 mg Ergocalciferol (Drisdol 50,000 Intl Units Cap) 1 cap PO Q7D [facility] Last Admin: 11/19/16 18:04 Dose: Not Given Fentanyl (Duragesic) 1 patch TD Q72H [facility] Last Admin: 11/19/16 15:25 Dose: 1 patch Furosemide (Lasix) 20 mg IVP Q12 [facility] Last Admin: 11/19/16 22:09 Dose: 20 mg Home Med (Home Med) 1 unit PO Q12H PRN PRN Reason: Inflammation Last Admin: 10/18/16 11:03 Dose: 1 unit Daptomycin 440 mg/ Sodium (Chloride) 100 mls @ 200 mls/hr IV Q24H [facility] Stop: 11/27/16 09:01 Last Admin: 11/19/16 09:15 Dose: 200 mls/hr Potassium Chloride 20 meq/ (Dextrose) 1,010 mls @ 100 mls/hr IV .Q10H6M [facility] Last Admin: 11/20/16 02:09 Dose: 100 mls/hr Hydromorphone HCl (Dilaudid-Hp 1 Mg/Ml Quality Controller) 25 mls @ 0.5 mls/hr IV PRN PRN; Protocol 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 Last Admin: 11/19/16 18:24 Dose: 0.5 mls/hr Metoprolol Tartrate (Lopressor) 5 mg IVP Q6H PRN PRN Reason: tachycardia Multi-Ingredient Ointment (Hydrophor Oint) 0 gm TOP Q6H PRN PRN Reason: Dry lip Ondansetron HCl (Zofran Inj) 4 mg IVP Q4H PRN PRN Reason: Nausea/Vomiting Last Admin: 11/17/16 05:01 Dose: 4 mg Pantoprazole Sodium (Protonix Inj) 40 mg IVP Q12 [facility] Last Admin: 11/19/16 22:09 Dose: 40 mg Petrolatum (Desitin Maximum Strength Topical 40% Oint) 1 gm TOP Q4H PRN PRN Reason: Rash Last Admin: 10/23/16 22:39 Dose: 1 applic Potassium Chloride (K-Dur 20 Meq Er Tab) 40 meq PO DAILY [facility] Propranolol HCl (Inderal La) 120 mg PO DAILY [facility] Last Admin: 11/19/16 09:13 Dose: 120 mg Sucralfate (Carafate Oral Susp) 1 gm PO BID [facility] Last Admin: 11/19/16 18:04 Dose: 1 gm Valganciclovir (Valcyte) 900 mg PO DAILY [facility] Last Admin: 11/14/16 11:09 Dose: Not Given - Labs Labs: 11/20/16 06:30 11/19/16 13:00 PT 12.6 Seconds (9.9-11.8) H 11/17/16 06:00 INR 1.17 (0.93-1.08) H 11/17/16 06:00 APTT 32.9 Seconds (23.7-30.8) H 11/17/16 06:00 - Constitutional Appears: No Acute Distress - Head Exam Head Exam: ATRAUMATIC, NORMOCEPHALIC - Eye Exam Eye Exam: EOMI - ENT Exam ENT Exam: Mucous Membranes Moist - Respiratory Exam Respiratory Exam: Clear to Ausculation Bilateral, NORMAL BREATHING PATTERN. absent: Respiratory Distress - Cardiovascular Exam Cardiovascular Exam: REGULAR RHYTHM, +S1, +S2 - GI/Abdominal Exam GI & Abdominal Exam: Guarding, Soft, Tenderness, Normal Bowel Sounds. absent: Firm, Rigid Additional comments: Diffuse, generalized tenderness throughout abdomen. - Neurological Exam Neurological Exam: Alert, Awake - Psychiatric Exam Psychiatric exam: Normal Affect, Normal Mood Assessment and Plan - Assessment and Plan (Free Text) Assessment: 61 year old F with Colon CA and GI bleed, s/p ex-lap/Marquita's day 3. Plan: Continue pain management. Monitor electrolytes, AM labs pending. Transfuse prn OOB to chair at least once per day. Continue medical management for bacteremia and fugemia. Dereje London PGY 1 <Yoan Mccracken - Last Filed: 12/02/16 23:55> Objective - Vital Signs/Intake and Output Vital Signs (last 24 hours): Temp Pulse Resp BP Pulse Ox 97.8 F 101 H 18 170/89 H 100 12/02/16 16:00 12/02/16 16:00 12/02/16 16:00 12/02/16 16:00 12/02/16 16:00 Intake and Output: 12/02/16 12/03/16 18:59 06:59 Intake Total 120 Output Total 450 600 Balance -450 -480 - Medications Medications: Current Medications Acetaminophen (Tylenol 650 Mg Supp) 650 mg RC Q4H PRN PRN Reason: Fever >100.4 F Last Admin: 11/01/16 21:18 Dose: 650 mg Al Hydrox/Mg Hydrox/Simethicone 30 ml/Diphenhydramine HCl 75 mg/Lidocaine 30 ml 0 ml PO QID [facility] Last Admin: 12/02/16 21:01 Dose: Not Given Diphenhydramine HCl (Benadryl) 50 mg IVP HS PRN PRN Reason: Insomnia Last Admin: 11/27/16 01:00 Dose: 50 mg Ergocalciferol (Drisdol 50,000 Intl Units Cap) 1 cap PO Q7D [facility] Last Admin: 11/19/16 18:04 Dose: Not Given Ferrous Sulfate (Feosol) 324 mg PO TID [facility] Last Admin: 12/02/16 18:16 Dose: Not Given Fluconazole (Diflucan) 200 mg PO DAILY [facility] PRN Reason: Protocol Stop: 12/12/16 10:01 Last Admin: 12/02/16 09:44 Dose: Not Given Home Med (Home Med) 1 unit PO Q12H PRN PRN Reason: Inflammation Last Admin: 10/18/16 11:03 Dose: 1 unit Hydralazine HCl (Apresoline) 10 mg IVP Q4H PRN PRN Reason: Systolic Blood Pressure Hydromorphone HCl (Dilaudid) 1 mg IVP Q1H PRN PRN Reason: Pain, moderate (4-7) Last Admin: 12/02/16 21:06 Dose: 1 mg Levetiracetam (Keppra 500mg Ivpb) 500 mg in 100 mls @ 400 mls/hr IV Q12 [facility] Last Admin: 12/02/16 21:06 Dose: 400 mls/hr Potassium Chloride/Dextrose (Potassium Chl 40 Meq In D5w) 1,000 mls @ 60 mls/ hr IV .[id number] [facility] Last Admin: 12/02/16 18:17 Dose: Not Given Magnesium Hydroxide (Milk Of Magnesia) 30 ml PO DAILY PRN PRN Reason: skin irritation Last Admin: 12/02/16 14:09 Dose: 30 ml Magnesium Oxide (Mag-Ox) 400 mg PO BID [facility] Last Admin: 12/02/16 18:16 Dose: Not Given Multi-Ingredient Ointment (Hydrophor Oint) 0 gm TOP Q6H PRN PRN Reason: Dry lip Multivitamins (Thera Tab) 1 tab PO 0800 [facility] Last Admin: 12/02/16 08:10 Dose: Not Given Propranolol HCl (Inderal La) 120 mg PO DAILY [facility] Last Admin: 12/02/16 09:44 Dose: Not Given Sucralfate (Carafate Oral Susp) 1 gm PO BID [facility] Last Admin: 12/02/16 18:16 Dose: Not Given - Labs Labs: 12/02/16 06:00 12/02/16 06:00 PT 12.9 Seconds (9.9-11.8) H 12/02/16 06:00 INR 1.19 (0.93-1.08) H 12/02/16 06:00 APTT 32.9 Seconds (23.7-30.8) H 12/02/16 06:00 Assessment and Plan - Assessment and Plan (Free Text) Plan: Patient was seen and examined by me. I agree with assessment and plan as per resident's note.
--- NOTE | 2016-11-20 09:47 | CP.PCM.PN ---
Subjective - Date & Time of Evaluation Date of Evaluation: 11/27/16 Time of Evaluation: 08:45 - Subjective Subjective: Awake, alert Feels better Getting ready to eat solid meal Objective - Vital Signs/Intake and Output Vital Signs (last 24 hours): Temp Pulse Resp BP Pulse Ox 97.8 F 84 19 159/96 H 99 11/20/16 08:26 11/20/16 08:26 11/20/16 08:26 11/20/16 08:26 11/20/16 08:26 Intake and Output: 11/20/16 11/20/16 06:59 18:59 Intake Total 700 Output Total 3440 75 Balance -2740 -75 - Medications Medications: Current Medications Acetaminophen (Tylenol 650 Mg Supp) 650 mg RC Q4H PRN PRN Reason: Fever >100.4 F Last Admin: 11/01/16 21:18 Dose: 650 mg Collagenase (Santyl) 1 gm TOP BID [facility] Last Admin: 11/19/16 18:05 Dose: 1 applic Al Hydrox/Mg Hydrox/Simethicone 30 ml/Diphenhydramine HCl 75 mg/Lidocaine 30 ml 0 ml PO Q2H PRN PRN Reason: Mouth/Throat Pain Last Admin: 11/07/16 09:00 Dose: 15 ml Diphenhydramine HCl (Benadryl) 25 mg IVP Q4H PRN PRN Reason: Allergy symptoms Last Admin: 11/15/16 01:09 Dose: 25 mg Ergocalciferol (Drisdol 50,000 Intl Units Cap) 1 cap PO Q7D [facility] Last Admin: 11/19/16 18:04 Dose: Not Given Fentanyl (Duragesic) 1 patch TD Q72H [facility] Last Admin: 11/19/16 15:25 Dose: 1 patch Furosemide (Lasix) 20 mg IVP Q12 [facility] Last Admin: 11/19/16 22:09 Dose: 20 mg Home Med (Home Med) 1 unit PO Q12H PRN PRN Reason: Inflammation Last Admin: 10/18/16 11:03 Dose: 1 unit Daptomycin 440 mg/ Sodium (Chloride) 100 mls @ 200 mls/hr IV Q24H [facility] Stop: 11/27/16 09:01 Last Admin: 11/19/16 09:15 Dose: 200 mls/hr Hydromorphone HCl (Dilaudid-Hp 1 Mg/Ml Product Finisher) 25 mls @ 0.5 mls/hr IV PRN PRN; Protocol PRN Reason: OR SCRUB TECH PER MD ORDER Last Admin: 11/19/16 18:24 Dose: 0.5 mls/hr Potassium Chloride 40 meq/ (Dextrose) 1,020 mls @ 60 mls/hr IV .Q17H [facility] Metoprolol Tartrate (Lopressor) 5 mg IVP Q6H PRN PRN Reason: tachycardia Multi-Ingredient Ointment (Hydrophor Oint) 0 gm TOP Q6H PRN PRN Reason: Dry lip Ondansetron HCl (Zofran Inj) 4 mg IVP Q4H PRN PRN Reason: Nausea/Vomiting Last Admin: 11/17/16 05:01 Dose: 4 mg Pantoprazole Sodium (Protonix Inj) 40 mg IVP Q12 [facility] Last Admin: 11/19/16 22:09 Dose: 40 mg Petrolatum (Desitin Maximum Strength Topical 40% Oint) 1 gm TOP Q4H PRN PRN Reason: Rash Last Admin: 10/23/16 22:39 Dose: 1 applic Potassium Chloride (K-Dur 20 Meq Er Tab) 40 meq PO DAILY [facility] Propranolol HCl (Inderal La) 120 mg PO DAILY [facility] Last Admin: 11/19/16 09:13 Dose: 120 mg Sucralfate (Carafate Oral Susp) 1 gm PO BID [facility] Last Admin: 11/19/16 18:04 Dose: 1 gm Valganciclovir (Valcyte) 900 mg PO DAILY [facility] Last Admin: 11/14/16 11:09 Dose: Not Given - Labs Labs: 11/20/16 06:30 11/19/16 13:00 PT 12.6 Seconds (9.9-11.8) H 11/17/16 06:00 INR 1.17 (0.93-1.08) H 11/17/16 06:00 APTT 32.9 Seconds (23.7-30.8) H 11/17/16 06:00 - Constitutional Appears: Chronically Ill - Head Exam Head Exam: ATRAUMATIC, NORMAL INSPECTION, NORMOCEPHALIC - Eye Exam Eye Exam: Normal appearance Pupil Exam: PERRL - ENT Exam ENT Exam: Mucous Membranes Dry, Normal Exam - Respiratory Exam Respiratory Exam: NORMAL BREATHING PATTERN - Cardiovascular Exam Cardiovascular Exam: REGULAR RHYTHM, +S1, +S2 - GI/Abdominal Exam GI & Abdominal Exam: Distended, Normal Bowel Sounds Additional comments: colostomy - Extremities Exam Extremities Exam: Pedal Edema - Skin Skin Exam: Normal Color Assessment and Plan (1) Colon tumor Status: Chronic (2) Hypoalbuminemia Status: Acute - Assessment and Plan (Free Text) Assessment: (1) Colon tumor Status: Chronic s/p laparomy, colostomy, POD #3 (2) Hypoalbuminemia Status: Acute SEVERE MALNUTRITION, NOW WITH FUNGUS IN BLOOD, Status: Acute (3) GIB: severe anemia, con't management per GI/Hematology BLEEDING SCAN -VE (4) Hypernatremia: Change IVF to D5W (5) SEVERE HYPOKALEMIA: CONTINUE AGGRESSIVE K REPLACEMENT, Increase KCL in IVF, Decrease rate (6) Hypomagnesemia :s/p replacement, (7) S/P palliative surgery, POD #3
--- NOTE | 2016-11-20 10:20 | CP.PCM.PN ---
<Yoana Osei - Last Filed: 11/20/16 10:20> Subjective - Date & Time of Evaluation Date of Evaluation: 11/20/16 Time of Evaluation: 09:30 - Subjective Subjective: S&E at bedside, sister present, patient happily report that she tolerated her regular soft diet of some fruits, pancake, no burning experienced. worried about getting out of bed, since she has not been for awhile. Stool noted in colostomy. No acute overnight events. Objective - Vital Signs/Intake and Output Vital Signs (last 24 hours): Temp Pulse Resp BP Pulse Ox 97.8 F 84 19 159/96 H 99 11/20/16 08:26 11/20/16 08:26 11/20/16 08:26 11/20/16 08:26 11/20/16 08:26 Intake and Output: 11/20/16 11/20/16 06:59 18:59 Intake Total 700 Output Total 3440 75 Balance -2740 -75 - Medications Medications: Current Medications Acetaminophen (Tylenol 650 Mg Supp) 650 mg RC Q4H PRN PRN Reason: Fever >100.4 F Last Admin: 11/01/16 21:18 Dose: 650 mg Collagenase (Santyl) 1 gm TOP BID [facility] Last Admin: 11/19/16 18:05 Dose: 1 applic Al Hydrox/Mg Hydrox/Simethicone 30 ml/Diphenhydramine HCl 75 mg/Lidocaine 30 ml 0 ml PO Q2H PRN PRN Reason: Mouth/Throat Pain Last Admin: 11/07/16 09:00 Dose: 15 ml Diphenhydramine HCl (Benadryl) 25 mg IVP Q4H PRN PRN Reason: Allergy symptoms Last Admin: 11/15/16 01:09 Dose: 25 mg Ergocalciferol (Drisdol 50,000 Intl Units Cap) 1 cap PO Q7D [facility] Last Admin: 11/19/16 18:04 Dose: Not Given Fentanyl (Duragesic) 1 patch TD Q72H [facility] Last Admin: 11/19/16 15:25 Dose: 1 patch Furosemide (Lasix) 20 mg IVP Q12 [facility] Last Admin: 11/19/16 22:09 Dose: 20 mg Home Med (Home Med) 1 unit PO Q12H PRN PRN Reason: Inflammation Last Admin: 10/18/16 11:03 Dose: 1 unit Daptomycin 440 mg/ Sodium (Chloride) 100 mls @ 200 mls/hr IV Q24H [facility] [place] Stop: 11/27/16 09:01 Last Admin: 11/19/16 09:15 Dose: 200 mls/hr Hydromorphone HCl (Dilaudid-Hp 1 Mg/Ml Glycerin Operator) 25 mls @ 0.5 mls/hr IV PRN PRN; Protocol PRN 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: 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 PER MD ORDER Last Admin: 11/19/16 18:24 Dose: 0.5 mls/hr Potassium Chloride 40 meq/ (Dextrose) 1,020 mls @ 60 mls/hr IV .Q17H [facility] [place] Metoprolol Tartrate (Lopressor) 5 mg IVP Q6H PRN PRN Reason: tachycardia Multi-Ingredient Ointment (Hydrophor Oint) 0 gm TOP Q6H PRN PRN Reason: Dry lip Ondansetron HCl (Zofran Inj) 4 mg IVP Q4H PRN PRN Reason: Nausea/Vomiting Last Admin: 11/17/16 05:01 Dose: 4 mg Pantoprazole Sodium (Protonix Inj) 40 mg IVP Q12 [facility] [place] Last Admin: 11/19/16 22:09 Dose: 40 mg Petrolatum (Desitin Maximum Strength Topical 40% Oint) 1 gm TOP Q4H PRN PRN Reason: Rash Last Admin: 10/23/16 22:39 Dose: 1 applic Potassium Chloride (K-Dur 20 Meq Er Tab) 40 meq PO DAILY [facility] [place] Propranolol HCl (Inderal La) 120 mg PO DAILY [facility] [place] Last Admin: 11/19/16 09:13 Dose: 120 mg Sucralfate (Carafate Oral Susp) 1 gm PO BID [facility] [place] Last Admin: 11/19/16 18:04 Dose: 1 gm Valganciclovir (Valcyte) 900 mg PO DAILY [facility] [place] Last Admin: 11/14/16 11:09 Dose: Not Given - Labs Labs: 11/20/16 06:30 11/19/16 13:00 PT 12.6 Seconds (9.9-11.8) H 11/17/16 06:00 INR 1.17 (0.93-1.08) H 11/17/16 06:00 APTT 32.9 Seconds (23.7-30.8) H 11/17/16 06:00 - Constitutional Appears: No Acute Distress - Head Exam Head Exam: NORMOCEPHALIC - Eye Exam Eye Exam: Normal appearance. absent: Scleral icterus - ENT Exam ENT Exam: Mucous Membranes Moist - Neck Exam Neck Exam: Normal Inspection - Respiratory Exam Respiratory Exam: NORMAL BREATHING PATTERN. absent: Respiratory Distress - Cardiovascular Exam Cardiovascular Exam: +S1, +S2 - GI/Abdominal Exam GI & Abdominal Exam: Soft, Tenderness (surigcal area, midabdominal incision stapels [employer]IVER, Dry and intace, (+) DEEJAY drain serosanguenous. (+) colostomy draining dark liquid stool with air in bag.), Normal Bowel Sounds. 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 Null <Tong Null V - Last Filed: 11/20/16 23:36> Objective - Vital Signs/Intake and Output Vital Signs (last 24 hours): Temp Pulse Resp BP Pulse Ox 98.7 F 95 H 18 138/89 100 11/20/16 17:46 11/20/16 17:46 11/20/16 17:46 11/20/16 22:45 11/20/16 16:00 Intake and Output: 11/20/16 11/21/16 18:59 06:59 Intake Total 555 360 Output Total 1175 600 Balance -620 -240 - Medications Medications: Current Medications Acetaminophen (Tylenol 650 Mg Supp) 650 mg RC Q4H PRN PRN Reason: Fever >100.4 F Last Admin: 11/01/16 21:18 Dose: 650 mg Collagenase (Santyl) 1 gm TOP BID [facility] [place] Last Admin: 11/20/16 18:08 Dose: Not Given Al Hydrox/Mg Hydrox/Simethicone 30 ml/Diphenhydramine HCl 75 mg/Lidocaine 30 ml 0 ml PO Q2H PRN PRN Reason: Mouth/Throat Pain Last Admin: 11/07/16 09:00 Dose: 15 ml Diphenhydramine HCl (Benadryl) 25 mg IVP Q4H PRN PRN Reason: Allergy symptoms Last Admin: 11/15/16 01:09 Dose: 25 mg Ergocalciferol (Drisdol 50,000 Intl Units Cap) 1 cap PO Q7D [facility] [place] Last Admin: 11/19/16 18:04 Dose: Not Given Fentanyl (Duragesic) 1 patch TD Q72H [facility] [place] Last Admin: 11/19/16 15:25 Dose: 1 patch Ferrous Sulfate (Feosol) 324 mg PO TID [facility] [place] Last Admin: 11/20/16 17:38 Dose: 324 mg Furosemide (Lasix) 20 mg IVP Q12 [facility] Last Admin: 11/20/16 22:45 Dose: 20 mg Home Med (Home Med) 1 unit PO Q12H PRN PRN Reason: Inflammation Last Admin: 10/18/16 11:03 Dose: 1 unit Daptomycin 440 mg/ Sodium (Chloride) 100 mls @ 200 mls/hr IV Q24H [facility] [place] Stop: 11/27/16 09:01 Last Admin: 11/20/16 11:47 Dose: 200 mls/hr Hydromorphone HCl (Dilaudid-Hp 1 Mg/Ml Glycerin Operator) 25 mls @ 0.5 mls/hr IV PRN PRN; Protocol PRN Reason: 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 PER MD ORDER Last Admin: 11/19/16 18:24 Dose: 0.5 mls/hr Potassium Chloride 40 meq/ (Dextrose) 1,020 mls @ 60 mls/hr IV .Q17H [facility] [place] Last Admin: 11/20/16 11:55 Dose: 60 mls/hr Micafungin Sodium 100 mg/ (Sodium Chloride) 100 mls @ 100 mls/hr IV DAILY [facility] PRN Reason: Protocol Stop: 11/28/16 10:01 Multi-Ingredient Ointment (Hydrophor Oint) 0 gm TOP Q6H PRN PRN Reason: Dry lip Multivitamins (Thera Tab) 1 tab PO 0800 [facility] [place] Ondansetron HCl (Zofran Inj) 4 mg IVP Q4H PRN PRN Reason: Nausea/Vomiting Last Admin: 11/20/16 18:53 Dose: 4 mg Pantoprazole Sodium (Protonix Inj) 40 mg IVP Q12 [facility] [place] Last Admin: 11/20/16 22:20 Dose: 40 mg Petrolatum (Desitin Maximum Strength Topical 40% Oint) 1 gm TOP Q4H PRN PRN Reason: Rash Last Admin: 10/23/16 22:39 Dose: 1 applic Potassium Chloride (K-Dur 20 Meq Er Tab) 40 meq PO DAILY [facility] [place] Last Admin: 11/20/16 11:11 Dose: 40 meq Propranolol HCl (Inderal La) 120 mg PO DAILY [facility] [place] Last Admin: 11/20/16 11:10 Dose: 120 mg Sucralfate (Carafate Oral Susp) 1 gm PO BID [facility] [place] Last Admin: 11/20/16 18:21 Dose: 1 gm Valganciclovir (Valcyte) 900 mg PO DAILY [facility] [place] Last Admin: 11/14/16 11:09 Dose: Not Given - Labs Labs: 11/20/16 20:25 11/20/16 10:10 PT 12.6 Seconds (9.9-11.8) H 11/17/16 06:00 INR 1.17 (0.93-1.08) H 11/17/16 06:00 APTT 32.9 Seconds (23.7-30.8) H 11/17/16 06:00 Attending/Attestation - Attestation Notes (Text): this
[2016-11-20 10:35] LABS: ALB/GLOB RATIO 0.7 (1.1-1.8); ALBUMIN 1.9 g/dL (3.0-4.8); ALT/SGPT 28 U/L (7-56); AST/SGOT 12 U/L (15-39); BLOOD UREA NITROGEN 22 mg/dL (7-21); CALCIUM 7.9 mg/dL (8.4-10.5); GFR AFRICAN-AMERICAN > 60; GFR NON-AFRICAN AMERICAN > 60; MAGNESIUM 1.8 mg/dL (1.7-2.2)
[2016-11-20] MEDS: Sucralfate 1 gm/10 ml Oral Susp UD PO SCH ×2 (11:08→18:21)
[2016-11-20] MEDS: Propranolol 60 mg ER Cap PO SCH ×2 (11:09→11:10)
[2016-11-20] MEDS: Potassium Chloride 20 mEq ER Tab PO SCH (11:11)
--- NOTE | 2016-11-20 11:27 | CP.PCM.PN ---
Subjective - Date & Time of Evaluation Date of Evaluation: 11/20/16 Time of Evaluation: 09:00 - Subjective Subjective: feels ok no new complains Objective - Vital Signs/Intake and Output Vital Signs (last 24 hours): Temp Pulse Resp BP Pulse Ox 97.8 F 84 19 159/96 H 99 11/20/16 08:26 11/20/16 11:10 11/20/16 08:26 11/20/16 11:11 11/20/16 08:26 Intake and Output: 11/20/16 11/20/16 06:59 18:59 Intake Total 700 Output Total 3440 75 Balance -2740 -75 - Medications Medications: Current Medications Acetaminophen (Tylenol 650 Mg Supp) 650 mg RC Q4H PRN PRN Reason: Fever >100.4 F Last Admin: 11/01/16 21:18 Dose: 650 mg Collagenase (Santyl) 1 gm TOP BID [facility] Last Admin: 11/19/16 18:05 Dose: 1 applic Al Hydrox/Mg Hydrox/Simethicone 30 ml/Diphenhydramine HCl 75 mg/Lidocaine 30 ml 0 ml PO Q2H PRN PRN Reason: Mouth/Throat Pain Last Admin: 11/07/16 09:00 Dose: 15 ml Diphenhydramine HCl (Benadryl) 25 mg IVP Q4H PRN PRN Reason: Allergy symptoms Last Admin: 11/15/16 01:09 Dose: 25 mg Ergocalciferol (Drisdol 50,000 Intl Units Cap) 1 cap PO Q7D [facility] Last Admin: 11/19/16 18:04 Dose: Not Given Fentanyl (Duragesic) 1 patch TD Q72H [facility] Last Admin: 11/19/16 15:25 Dose: 1 patch Furosemide (Lasix) 20 mg IVP Q12 [facility] Last Admin: 11/20/16 11:11 Dose: 20 mg Home Med (Home Med) 1 unit PO Q12H PRN PRN Reason: Inflammation Last Admin: 10/18/16 11:03 Dose: 1 unit Daptomycin 440 mg/ Sodium (Chloride) 100 mls @ 200 mls/hr IV Q24H [facility] Stop: 11/27/16 09:01 Last Admin: 11/19/16 09:15 Dose: 200 mls/hr Hydromorphone HCl (Dilaudid-Hp 1 Mg/Ml Liquor Blender) 25 mls @ 0.5 mls/hr IV PRN PRN; Protocol PRN Reason: 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 MD ORDER Last Admin: 11/19/16 18:24 Dose: 0.5 mls/hr Potassium Chloride 40 meq/ (Dextrose) 1,020 mls @ 60 mls/hr IV .Q17H [facility] Metoprolol Tartrate (Lopressor) 5 mg IVP Q6H PRN PRN Reason: tachycardia Multi-Ingredient Ointment (Hydrophor Oint) 0 gm TOP Q6H PRN PRN Reason: Dry lip Ondansetron HCl (Zofran Inj) 4 mg IVP Q4H PRN PRN Reason: Nausea/Vomiting Last Admin: 11/17/16 05:01 Dose: 4 mg Pantoprazole Sodium (Protonix Inj) 40 mg IVP Q12 [facility] Last Admin: 11/20/16 11:11 Dose: 40 mg Petrolatum (Desitin Maximum Strength Topical 40% Oint) 1 gm TOP Q4H PRN PRN Reason: Rash Last Admin: 10/23/16 22:39 Dose: 1 applic Potassium Chloride (K-Dur 20 Meq Er Tab) 40 meq PO DAILY [facility] Last Admin: 11/20/16 11:11 Dose: 40 meq Propranolol HCl (Inderal La) 120 mg PO DAILY [facility] Last Admin: 11/20/16 11:10 Dose: 120 mg Sucralfate (Carafate Oral Susp) 1 gm PO BID [facility] Last Admin: 11/20/16 11:08 Dose: 1 gm Valganciclovir (Valcyte) 900 mg PO DAILY [facility] Last Admin: 11/14/16 11:09 Dose: Not Given - Labs Labs: 11/20/16 06:30 11/20/16 10:10 PT 12.6 Seconds (9.9-11.8) H 11/17/16 06:00 INR 1.17 (0.93-1.08) H 11/17/16 06:00 APTT 32.9 Seconds (23.7-30.8) H 11/17/16 06:00 - Constitutional Appears: Non-toxic - Head Exam Head Exam: ATRAUMATIC - Eye Exam Eye Exam: Conjunctival injection - ENT Exam ENT Exam: Mucous Membranes Dry - Neck Exam Neck Exam: Full ROM - Respiratory Exam Respiratory Exam: Clear to Ausculation Bilateral - Cardiovascular Exam Cardiovascular Exam: REGULAR RHYTHM - GI/Abdominal Exam GI & Abdominal Exam: Distended Additional comments: Colostomy in place Assessment and Plan - Assessment and Plan (Free Text) Assessment: S/p Expl lapratomy, S/p lysis of adhesion and colostomy Ca colon Sinus Tach on inderal >.stable Anemia Lytes abnormality protein calorie malnutrition. Plan: post op management continue Inderal increase nutritional support add multi vitamin
[2016-11-20] MEDS: Collagenase 250 Units/gm Ointment(30 gm) TOP SCH ×2 (11:41→18:08)
--- NOTE | 2016-11-20 12:53 | CP.PCM.PN ---
<Cassie Arcos - Last Filed: 11/20/16 12:50> Subjective - Date & Time of Evaluation Date of Evaluation: 11/20/16 Time of Evaluation: 12:50 - Subjective Subjective: PGY-[address] Hendricks Pt has decrease pain requirement. deangelo 1 breakthrough (12/20) last night. Otherwise, no acute complaint Objective - Vital Signs/Intake and Output Vital Signs (last 24 hours): Temp Pulse Resp BP Pulse Ox 97.8 F 84 19 159/96 H 99 11/20/16 08:26 11/20/16 11:10 11/20/16 08:26 11/20/16 11:11 11/20/16 08:26 Intake and Output: 11/20/16 11/20/16 06:59 18:59 Intake Total 700 Output Total 3440 75 Balance -2740 -75 - Medications Medications: Current Medications Acetaminophen (Tylenol 650 Mg Supp) 650 mg RC Q4H PRN PRN Reason: Fever >100.4 F Last Admin: 11/01/16 21:18 Dose: 650 mg Collagenase (Santyl) 1 gm TOP BID [facility] Last Admin: 11/20/16 11:41 Dose: 1 applic Al Hydrox/Mg Hydrox/Simethicone 30 ml/Diphenhydramine HCl 75 mg/Lidocaine 30 ml 0 ml PO Q2H PRN PRN Reason: Mouth/Throat Pain Last Admin: 11/07/16 09:00 Dose: 15 ml Diphenhydramine HCl (Benadryl) 25 mg IVP Q4H PRN PRN Reason: Allergy symptoms Last Admin: 11/15/16 01:09 Dose: 25 mg Ergocalciferol (Drisdol 50,000 Intl Units Cap) 1 cap PO Q7D [facility] Last Admin: 11/19/16 18:04 Dose: Not Given Fentanyl (Duragesic) 1 patch TD Q72H [facility] Last Admin: 11/19/16 15:25 Dose: 1 patch Ferrous Sulfate (Feosol) 324 mg PO TID [facility] Furosemide (Lasix) 20 mg IVP Q12 [facility] Last Admin: 11/20/16 11:11 Dose: 20 mg Home Med (Home Med) 1 unit PO Q12H PRN PRN Reason: Inflammation Last Admin: 10/18/16 11:03 Dose: 1 unit Daptomycin 440 mg/ Sodium (Chloride) 100 mls @ 200 mls/hr IV Q24H [facility] Stop: 11/27/16 09:01 Last Admin: 11/20/16 11:47 Dose: 200 mls/hr Hydromorphone HCl (Dilaudid-Hp 1 Mg/Ml Grinder Set Up Operator Gear Tool) 25 mls @ 0.5 mls/hr IV PRN PRN; Protocol PRN Reason: TANK WORKER PER MD ORDER Last Admin: 11/19/16 18:24 Dose: 0.5 mls/hr Potassium Chloride 40 meq/ (Dextrose) 1,020 mls @ 60 mls/hr IV .Q17H [facility] Last Admin: 11/20/16 11:55 Dose: 60 mls/hr Multi-Ingredient Ointment (Hydrophor Oint) 0 gm TOP Q6H PRN PRN Reason: Dry lip Multivitamins (Thera Tab) 1 tab PO 0800 [facility] Ondansetron HCl (Zofran Inj) 4 mg IVP Q4H PRN PRN Reason: Nausea/Vomiting Last Admin: 11/17/16 05:01 Dose: 4 mg Pantoprazole Sodium (Protonix Inj) 40 mg IVP Q12 [facility] Last Admin: 11/20/16 11:11 Dose: 40 mg Petrolatum (Desitin Maximum Strength Topical 40% Oint) 1 gm TOP Q4H PRN PRN Reason: Rash Last Admin: 10/23/16 22:39 Dose: 1 applic Potassium Chloride (K-Dur 20 Meq Er Tab) 40 meq PO DAILY [facility] Last Admin: 11/20/16 11:11 Dose: 40 meq Propranolol HCl (Inderal La) 120 mg PO DAILY [facility] Last Admin: 11/20/16 11:10 Dose: 120 mg Sucralfate (Carafate Oral Susp) 1 gm PO BID [facility] Last Admin: 11/20/16 11:08 Dose: 1 gm Valganciclovir (Valcyte) 900 mg PO DAILY [facility] Last Admin: 11/14/16 11:09 Dose: Not Given - Labs Labs: 11/20/16 06:30 11/20/16 10:10 PT 12.6 Seconds (9.9-11.8) H 11/17/16 06:00 INR 1.17 (0.93-1.08) H 11/17/16 06:00 APTT 32.9 Seconds (23.7-30.8) H 11/17/16 06:00 - Constitutional Appears: No Acute Distress - Head Exam Head Exam: ATRAUMATIC, NORMOCEPHALIC - Eye Exam Eye Exam: EOMI, Normal appearance, PERRL. absent: Scleral icterus Pupil Exam: NORMAL ACCOMODATION - ENT Exam ENT Exam: Mucous Membranes Moist - Respiratory Exam Respiratory Exam: Clear to Ausculation Bilateral. absent: Rales, Rhonchi, Wheezes - Cardiovascular Exam Cardiovascular Exam: REGULAR RHYTHM, +S1, +S2, Murmur - GI/Abdominal Exam GI & Abdominal Exam: Soft, Tenderness, Normal Bowel Sounds Additional comments: mid-line incision sofie intact. ostomy bag visible. no erythema. DEEJAY drain serosang - Extremities Exam Extremities Exam: Pedal Edema. absent: Calf Tenderness - Neurological Exam Neurological Exam: Alert, Awake, Oriented x3 - Psychiatric Exam Psychiatric exam: Normal Affect, Normal Mood - Skin Skin Exam: Dry, Warm Assessment and Plan - Assessment and Plan (Free Text) Plan: 61 F with PMHx stage 4 colorectal cancer S/P colectomy in 2014 with stenosis of sigmoid colon and esophageal ulceration of unclear etiology. Cancer has metastatis to sacral area, Hx Cauda Equina syndrome. She was hospitalized on for watery diarrhea with neutropenia. This hospitalization was complicated by (1) neutropenia sepsis due to bacteremia and fungemia. (2) Now mucositis with GI bleed (hematochesia/maroon stool) requiring transfusion. Plan: GI bleed expect to improve s/p Palliative colostomy (11/17). Treatment of bacteremia and fungemia on going. Revisited goal of care on 11/12. Pt states that she is not ready for palliative or comfort care. Plan to rehab. #Stage IV metastatic colorectal cancer - hold futher specific treatment for now due to complications - s/p Port-a-cath removal (11/14) #GI bleed, Active, (upper and lower) - dark stool in ostomy bag - Hb 8.3 (9.3) - plt 84 (85) - INR 1.17 (11/17) - U/O 3L/24hr - regular diet - bleeding scan (-) - EGD/colonoscopy: Stricture at sigmoid colon from external pressure, with ulceration - Many ulcers on esophagus found on EGD, pathology negative - Protonix IV BID + sucralfate - clear ensure 3/day - Dietitan: under-nutritient - Lasix, Lopressor for BP control; propranolol 1g bid to prevent upper GI bleed # thrombocytopenia - DIC workup negative #Enterococcus Bacteremia and Susy fungemia and CMV on upper GI ulcer - Daptomycin - micafungin ? - hold Valganciclovir since there was no evidence of CMV on the biopsy of the ulcers in the esophagus - will consider restarting acyclovir #Dispo - prognosis guarded - consider rehab - OOB to chair will not cause GI bleed. Increase pain coverage prior transfer and safety precaution. - goal is to taper TANK WORKER need #Full code #Access - L PICC - minor - ostomy s/r/d/s Dr. Hendricks <Kedar Hendricks P - Last Filed: 11/21/16 13:29> Objective - Vital Signs/Intake and Output Vital Signs (last 24 hours): Temp Pulse Resp BP Pulse Ox 98.4 F 70 20 136/78 100 11/21/16 08:14 11/21/16 10:17 11/21/16 08:14 11/21/16 10:21 11/21/16 08:14 Intake and Output: 11/21/16 11/21/16 06:59 18:59 Intake Total 2460 Output Total 7850 Balance -5390 - Medications Medications: Current Medications Acetaminophen (Tylenol 650 Mg Supp) 650 mg RC Q4H PRN PRN Reason: Fever >100.4 F Last Admin: 11/01/16 21:18 Dose: 650 mg Collagenase (Santyl) 1 gm TOP BID [facility] Last Admin: 11/21/16 10:22 Dose: 1 applic Al Hydrox/Mg Hydrox/Simethicone 30 ml/Diphenhydramine HCl 75 mg/Lidocaine 30 ml 0 ml PO Q2H PRN PRN Reason: Mouth/Throat Pain Last Admin: 11/07/16 09:00 Dose: 15 ml Diphenhydramine HCl (Benadryl) 25 mg IVP Q4H PRN PRN Reason: Allergy symptoms Last Admin: 11/21/16 00:37 Dose: 25 mg Ergocalciferol (Drisdol 50,000 Intl Units Cap) 1 cap PO Q7D [facility] Last Admin: 11/19/16 18:04 Dose: Not Given Fentanyl (Duragesic) 1 patch TD Q72H [facility] Last Admin: 11/19/16 15:25 Dose: 1 patch Ferrous Sulfate (Feosol) 324 mg PO TID [facility] Last Admin: 11/21/16 13:12 Dose: Not Given Furosemide (Lasix) 20 mg IVP Q12 [facility] Last Admin: 11/21/16 10:21 Dose: 20 mg Home Med (Home Med) 1 unit PO Q12H PRN PRN Reason: Inflammation Last Admin: 10/18/16 11:03 Dose: 1 unit Daptomycin 440 mg/ Sodium (Chloride) 100 mls @ 200 mls/hr IV Q24H [facility] Stop: 11/27/16 09:01 Last Admin: 11/21/16 11:29 Dose: 200 mls/hr Hydromorphone HCl (Dilaudid-Hp 1 Mg/Ml Grinder Set Up Operator Gear Tool) 25 mls @ 0.5 mls/hr IV PRN PRN; Protocol PRN Reason: TANK WORKER PER MD ORDER Last Admin: 11/19/16 18:24 Dose: 0.5 mls/hr Potassium Chloride 40 meq/ (Dextrose) 1,020 mls @ 60 mls/hr IV .Q17H [facility] Last Admin: 11/21/16 06:41 Dose: 60 mls/hr Micafungin Sodium 100 mg/ (Sodium Chloride) 100 mls @ 100 mls/hr IV DAILY [facility] PRN Reason: Protocol Stop: 11/28/16 10:01 Last Admin: 11/21/16 13:10 Dose: 100 mls/hr Magnesium Sulfate 1 gm/ Sodium (Chloride) 102 mls @ 102 mls/hr IV ONCE ONE Stop: 11/21/16 13:58 Multi-Ingredient Ointment (Hydrophor Oint) 0 gm TOP Q6H PRN PRN Reason: Dry lip Multivitamins (Thera Tab) 1 tab PO 0800 [facility] Last Admin: 11/21/16 10:18 Dose: 1 tab Ondansetron HCl (Zofran Inj) 4 mg IVP Q4H PRN PRN Reason: Nausea/Vomiting Last Admin: 11/20/16 18:53 Dose: 4 mg Pantoprazole Sodium (Protonix Inj) 40 mg IVP Q12 [facility] Last Admin: 11/21/16 10:17 Dose: 40 mg Petrolatum (Desitin Maximum Strength Topical 40% Oint) 1 gm TOP Q4H PRN PRN Reason: Rash Last Admin: 10/23/16 22:39 Dose: 1 applic Potassium Chloride (K-Dur 20 Meq Er Tab) 40 meq PO DAILY [facility] Last Admin: 11/21/16 10:19 Dose: 40 meq Propranolol HCl (Inderal La) 120 mg PO DAILY [facility] Last Admin: 11/21/16 10:17 Dose: 120 mg Sucralfate (Carafate Oral Susp) 1 gm PO BID [facility] Last Admin: 11/21/16 10:17 Dose: 1 gm Valganciclovir (Valcyte) 900 mg PO DAILY [facility] Last Admin: 11/14/16 11:09 Dose: Not Given - Labs Labs: 11/21/16 11:00 11/21/16 11:00 PT 12.6 Seconds (9.9-11.8) H 11/17/16 06:00 INR 1.17 (0.93-1.08) H 11/17/16 06:00 APTT 32.9 Seconds (23.7-30.8) H 11/17/16 06:00 Assessment and Plan - Assessment and Plan (Free Text) Plan: I had a detailed discussion with Dr. Arcos I spoke to the family of Mr. Olivarez I also spoke to Dr. Hernandez the photography and prints curator patient is still actively bleeding through the colostomy etiology is unclear but appears to be probably of upper gastrointestinal knowledge and she did have a endoscopy on Saturday which did not or failed to review any new active bleeding in the esophagus EG junction or the stomach so the bleeding has to be coming down for further below between the jejunum and the ileum currently the patient is postop and do not want to do any additional testing at this time and be conservative, she is going to get a packed red blood cells and plasma for transfusion through the night and then we'll repeat the bloodwork in the a.m. if her symptoms or her condition does not improve we plan on repeating a bleeding scan. Unfortunately the patient is not eligible to have an inpatient capsule endoscopy or a double balloon enteroscopy because she is just postop. Will speak to the surgeon as well and communicate with him regarding the current problems the patient is facing. Patient needs to continue intravenous antibiotics and her diet is being advanced to normal diet.
--- NOTE | 2016-11-20 19:33 | CP.PCM.PN ---
Subjective - Date & Time of Evaluation Date of Evaluation: 11/20/16 Time of Evaluation: 11:50 - Subjective Subjective: Patient is feeling better, no fevers overnight, no nausea currently. Objective - Vital Signs/Intake and Output Vital Signs (last 24 hours): Temp Pulse Resp BP Pulse Ox 97.8 F 84 19 159/96 H 99 11/20/16 08:26 11/20/16 08:26 11/20/16 08:26 11/20/16 08:26 11/20/16 08:26 Intake and Output: 11/20/16 11/20/16 06:59 18:59 Intake Total 700 Output Total 3440 75 Balance -2740 -75 - Medications Medications: Current Medications Acetaminophen (Tylenol 650 Mg Supp) 650 mg RC Q4H PRN PRN Reason: Fever >100.4 F Last Admin: 11/01/16 21:18 Dose: 650 mg Collagenase (Santyl) 1 gm TOP BID [facility] Last Admin: 11/19/16 18:05 Dose: 1 applic Al Hydrox/Mg Hydrox/Simethicone 30 ml/Diphenhydramine HCl 75 mg/Lidocaine 30 ml 0 ml PO Q2H PRN PRN Reason: Mouth/Throat Pain Last Admin: 11/07/16 09:00 Dose: 15 ml Diphenhydramine HCl (Benadryl) 25 mg IVP Q4H PRN PRN Reason: Allergy symptoms Last Admin: 11/15/16 01:09 Dose: 25 mg Ergocalciferol (Drisdol 50,000 Intl Units Cap) 1 cap PO Q7D [facility] Last Admin: 11/19/16 18:04 Dose: Not Given Fentanyl (Duragesic) 1 patch TD Q72H [facility] Last Admin: 11/19/16 15:25 Dose: 1 patch Furosemide (Lasix) 20 mg IVP Q12 [facility] Last Admin: 11/19/16 22:09 Dose: 20 mg Home Med (Home Med) 1 unit PO Q12H PRN PRN Reason: Inflammation Last Admin: 10/18/16 11:03 Dose: 1 unit Daptomycin 440 mg/ Sodium (Chloride) 100 mls @ 200 mls/hr IV Q24H [facility] Stop: 11/27/16 09:01 Last Admin: 11/19/16 09:15 Dose: 200 mls/hr Acetaminophen (Ofirmev) 1,000 mg in 100 mls @ 400 mls/hr IVPB Q6H PRN PRN Reason: Pain, moderate (4-7) Stop: 11/20/16 08:47 Last Admin: 11/19/16 05:46 Dose: 400 mls/hr Potassium Chloride 20 meq/ (Dextrose) 1,010 mls @ 100 mls/hr IV .Q10H6M [facility] Last Admin: 11/20/16 02:09 Dose: 100 mls/hr Hydromorphone HCl (Dilaudid-Hp 1 Mg/Ml Avionics Systems Engineer) 25 mls @ 0.5 mls/hr IV PRN PRN; Protocol PRN Reason: INGREDIENT HANDLER PER MD ORDER Last Admin: 11/19/16 18:24 Dose: 0.5 mls/hr Metoprolol Tartrate (Lopressor) 5 mg IVP Q6H PRN PRN Reason: tachycardia Multi-Ingredient Ointment (Hydrophor Oint) 0 gm TOP Q6H PRN PRN Reason: Dry lip Ondansetron HCl (Zofran Inj) 4 mg IVP Q4H PRN PRN Reason: Nausea/Vomiting Last Admin: 11/17/16 05:01 Dose: 4 mg Pantoprazole Sodium (Protonix Inj) 40 mg IVP Q12 [facility] Last Admin: 11/19/16 22:09 Dose: 40 mg Petrolatum (Desitin Maximum Strength Topical 40% Oint) 1 gm TOP Q4H PRN PRN Reason: Rash Last Admin: 10/23/16 22:39 Dose: 1 applic Potassium Chloride (K-Dur 20 Meq Er Tab) 40 meq PO DAILY [facility] Propranolol HCl (Inderal La) 120 mg PO DAILY [facility] Last Admin: 11/19/16 09:13 Dose: 120 mg Sucralfate (Carafate Oral Susp) 1 gm PO BID [facility] Last Admin: 11/19/16 18:04 Dose: 1 gm Valganciclovir (Valcyte) 900 mg PO DAILY [facility] Last Admin: 11/14/16 11:09 Dose: Not Given - Labs Labs: 11/20/16 06:30 11/19/16 13:00 PT 12.6 Seconds (9.9-11.8) H 11/17/16 06:00 INR 1.17 (0.93-1.08) H 11/17/16 06:00 APTT 32.9 Seconds (23.7-30.8) H 11/17/16 06:00 - Constitutional Appears: Non-toxic, No Acute Distress, Chronically Ill - Head Exam Head Exam: NORMAL INSPECTION - Neck Exam Neck Exam: absent: Meningismus - Respiratory Exam Respiratory Exam: Decreased Breath Sounds - Cardiovascular Exam Cardiovascular Exam: +S1, +S2 - GI/Abdominal Exam GI & Abdominal Exam: Soft. absent: Tenderness - Extremities Exam Additional comments: left upper arm PICC line site intact Assessment and Plan - Assessment and Plan (Free Text) Plan: Assessment sepsis due to C. 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 in repeat blood cx bottle, consider bacteremia R/O secondary to PICC line R/O contamination (since only 1 of 4 bottles were positive for the organism) Partial small bowel obstruction, persistent with colonic stricture S/P exploratory laparotomy, lysis of adhesions, repair of small bowel enterotomy and partial sigmoidectomy with end-colostomy POD #2 Acute stomatitis and mucositis, as well as esophageal ulcers (esophagitis) and enteritis - no CMV noted on biopsy sample of the esophageal ulcers - consider Susy Esophagitis Neutropenia probably from chemotherapy, resolved HTN 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 S/P colectomy in 2014 history of UTI GERD anxiety Plan continue Mycamine and Daptomycin (repeat blood cx are negative) - will plan to complete at least 14 days of Mycamine from time of port removal and then switch to PO Diflucan for another 2 weeks (total 4 weeks of antifungal therapy) - day 6 of Daptomycin (of 10 days) will hold Valganciclovir since there was no evidence of CMV on the biopsy of the ulcers in the esophagus; Will continue to follow clinically Overall prognosis is poor
[2016-11-20 21:15] LABS: BASO # 0.01 K/mm3 (0.0-2.0); BASO % 0.1 % (0.0-3.0); EOS # 0.1 (0.0-0.7); EOS % 1.8 % (1.5-5.0); GRAN # 6.58 (1.4-6.5); GRAN % 82.7 % (50.0-68.0); HEMOGLOBIN 8.2 gm/dL (12.0-16.0); LYMPH # 0.8 (1.2-3.4); LYMPH % 10.4 % (22.0-35.0); MEAN CELL VOLUME 97.7 fL (80.0-105.0); MEAN CORPUSCULAR HEMOGLOBIN 31.4 pg (25.0-35.0); MEAN CORPUSCULAR HGB CONC 32.2 g/dl (31.0-37.0); MEAN PLATELET VOLUME 11.8 fl (7.0-11.0); MONO # 0.4 (0.1-0.6); PLATELET COUNT 107 10^3/uL (120.0-450.0); RBC 2.61 10^6/uL (3.5-6.1); RED CELL DISTRIBUTION WIDTH 17.1 % (11.5-14.5)
[2016-11-20 22:19] LABS: BASO # 0.01 K/mm3 (0.0-2.0); BASO % 0.1 % (0.0-3.0); EOS # 0.1 (0.0-0.7); EOS % 1.5 % (1.5-5.0); GRAN # 5.63 (1.4-6.5); GRAN % 83.8 % (50.0-68.0); LYMPH # 0.7 (1.2-3.4); MEAN CELL VOLUME 105.7 fL (80.0-105.0); MEAN CORPUSCULAR HEMOGLOBIN 37.6 pg (25.0-35.0); MEAN CORPUSCULAR HGB CONC 35.6 g/dl (31.0-37.0); MEAN PLATELET VOLUME 11.6 fl (7.0-11.0); MONO # 0.3 (0.1-0.6); MONO % 4.6 % (1.0-6.0); PLATELET COUNT 109 10^3/uL (120.0-450.0); RED CELL DISTRIBUTION WIDTH 21.6 % (11.5-14.5); WHITE BLOOD COUNT 6.7 10^3/ul (4.5-11.0)
[2016-11-20 22:25] LABS: HEMOGLOBIN 7.9 gm/dL (12.0-16.0)
[2016-11-21] MEDS: DiphenhydrAMINE 50 mg/ml Inj IVP PRN (00:37)
--- NOTE | 2016-11-21 09:36 | CP.PCM.PN ---
<Dereje London - Last Filed: 11/21/16 11:42> Subjective - Date & Time of Evaluation Date of Evaluation: 11/21/16 Time of Evaluation: 09:36 - Subjective Subjective: General Surgery Dr. Mccracken Patient seen and examined at bedside this morning. No acute events overnight. Patient states that she woke up feeling very weak. She is very upset that she is not getting better faster. Patient is tolerating her diet. She states that she is sore but his overall pain is well controlled. Objective - Vital Signs/Intake and Output Vital Signs (last 24 hours): Temp Pulse Resp BP Pulse Ox 98.4 F 74 20 127/72 100 11/21/16 08:14 11/21/16 08:14 11/21/16 08:14 11/21/16 08:14 11/21/16 08:14 Intake and Output: 11/21/16 11/21/16 06:59 18:59 Intake Total 2460 Output Total 7850 Balance -5390 - Medications Medications: Current Medications Acetaminophen (Tylenol 650 Mg Supp) 650 mg RC Q4H PRN PRN Reason: Fever >100.4 F Last Admin: 11/01/16 21:18 Dose: 650 mg Collagenase (Santyl) 1 gm TOP BID [facility] Last Admin: 11/20/16 18:08 Dose: Not Given Al Hydrox/Mg Hydrox/Simethicone 30 ml/Diphenhydramine HCl 75 mg/Lidocaine 30 ml 0 ml PO Q2H PRN PRN Reason: Mouth/Throat Pain Last Admin: 11/07/16 09:00 Dose: 15 ml Diphenhydramine HCl (Benadryl) 25 mg IVP Q4H PRN PRN Reason: Allergy symptoms Last Admin: 11/21/16 00:37 Dose: 25 mg Ergocalciferol (Drisdol 50,000 Intl Units Cap) 1 cap PO Q7D [facility] Last Admin: 11/19/16 18:04 Dose: Not Given Fentanyl (Duragesic) 1 patch TD Q72H [facility] Last Admin: 11/19/16 15:25 Dose: 1 patch Ferrous Sulfate (Feosol) 324 mg PO TID [facility] Last Admin: 11/20/16 17:38 Dose: 324 mg Furosemide (Lasix) 20 mg IVP Q12 [facility] Last Admin: 11/20/16 22:45 Dose: 20 mg Home Med (Home Med) 1 unit PO Q12H PRN PRN Reason: Inflammation Last Admin: 10/18/16 11:03 Dose: 1 unit Daptomycin 440 mg/ Sodium (Chloride) 100 mls @ 200 mls/hr IV Q24H [facility] Stop: 11/27/16 09:01 Last Admin: 11/20/16 11:47 Dose: 200 mls/hr Hydromorphone HCl (Dilaudid-Hp 1 Mg/Ml Telegraph Service Rater) 25 mls @ 0.5 mls/hr IV PRN PRN; Protocol PRN Reason: SIEVE MAKER PER MD ORDER Last Admin: 11/19/16 18:24 Dose: 0.5 mls/hr Potassium Chloride 40 meq/ (Dextrose) 1,020 mls @ 60 mls/hr IV .Q17H [facility] Last Admin: 11/21/16 06:41 Dose: 60 mls/hr Micafungin Sodium 100 mg/ (Sodium Chloride) 100 mls @ 100 mls/hr IV DAILY [facility] PRN Reason: Protocol Stop: 11/28/16 10:01 Multi-Ingredient Ointment (Hydrophor Oint) 0 gm TOP Q6H PRN PRN Reason: Dry lip Multivitamins (Thera Tab) 1 tab PO 0800 [facility] Ondansetron HCl (Zofran Inj) 4 mg IVP Q4H PRN PRN Reason: Nausea/Vomiting Last Admin: 11/20/16 18:53 Dose: 4 mg Pantoprazole Sodium (Protonix Inj) 40 mg IVP Q12 [facility] Last Admin: 11/20/16 22:20 Dose: 40 mg Petrolatum (Desitin Maximum Strength Topical 40% Oint) 1 gm TOP Q4H PRN PRN Reason: Rash Last Admin: 10/23/16 22:39 Dose: 1 applic Potassium Chloride (K-Dur 20 Meq Er Tab) 40 meq PO DAILY [facility] Last Admin: 11/20/16 11:11 Dose: 40 meq Propranolol HCl (Inderal La) 120 mg PO DAILY [facility] Last Admin: 11/20/16 11:10 Dose: 120 mg Sucralfate (Carafate Oral Susp) 1 gm PO BID [facility] Last Admin: 11/20/16 18:21 Dose: 1 gm Valganciclovir (Valcyte) 900 mg PO DAILY [facility] Last Admin: 11/14/16 11:09 Dose: Not Given - Labs Labs: 11/20/16 20:25 11/20/16 10:10 PT 12.6 Seconds (9.9-11.8) H 11/17/16 06:00 INR 1.17 (0.93-1.08) H 11/17/16 06:00 APTT 32.9 Seconds (23.7-30.8) H 11/17/16 06:00 - Constitutional Appears: No Acute Distress - Head Exam Head Exam: ATRAUMATIC, NORMOCEPHALIC - Eye Exam Eye Exam: EOMI - Respiratory Exam Respiratory Exam: NORMAL BREATHING PATTERN. absent: Accessory Muscle Use, Respiratory Distress - Cardiovascular Exam Cardiovascular Exam: REGULAR RHYTHM, +S1, +S2 - GI/Abdominal Exam GI & Abdominal Exam: Soft, Tenderness, Normal Bowel Sounds. absent: Guarding, Rigid Additional comments: Incision is well approximated. C/D/I. DEEJAY draining serosanguinous fluid. Ostomy is producing melanic stool. - Neurological Exam Neurological Exam: Alert, Awake, Oriented x3 - Psychiatric Exam Psychiatric exam: Depressed - Skin Skin Exam: Dry, Normal Color, Warm Assessment and Plan - Assessment and Plan (Free Text) Assessment: 61 year old F with Colon Ca and GI bleed. Plan: Monitor H+H, transfuse prn, AM labs pending Monitor chemistry, replete prn, AM labs pending OOB to chair Regular diet (soft) Encourage with IS Recommend bleeding scan Patient seen and discussed with Dr. Kaykay Reyez Lita PGY 1 <Yoan Mccracken - Last Filed: 12/02/16 23:56> Objective - Vital Signs/Intake and Output Vital Signs (last 24 hours): Temp Pulse Resp BP Pulse Ox 97.8 F 101 H 18 170/89 H 100 12/02/16 16:00 12/02/16 16:00 12/02/16 16:00 12/02/16 16:00 12/02/16 16:00 Intake and Output: 12/02/16 12/03/16 18:59 06:59 Intake Total 120 Output Total 450 600 Balance -450 -480 - Medications Medications: Current Medications Acetaminophen (Tylenol 650 Mg Supp) 650 mg RC Q4H PRN PRN Reason: Fever >100.4 F Last Admin: 11/01/16 21:18 Dose: 650 mg Al Hydrox/Mg Hydrox/Simethicone 30 ml/Diphenhydramine HCl 75 mg/Lidocaine 30 ml 0 ml PO QID [facility] Last Admin: 12/02/16 21:01 Dose: Not Given Diphenhydramine HCl (Benadryl) 50 mg IVP HS PRN PRN Reason: Insomnia Last Admin: 11/27/16 01:00 Dose: 50 mg Ergocalciferol (Drisdol 50,000 Intl Units Cap) 1 cap PO Q7D [facility] Last Admin: 11/19/16 18:04 Dose: Not Given Ferrous Sulfate (Feosol) 324 mg PO TID [facility] Last Admin: 12/02/16 18:16 Dose: Not Given Fluconazole (Diflucan) 200 mg PO DAILY [facility] PRN Reason: Protocol Stop: 12/12/16 10:01 Last Admin: 12/02/16 09:44 Dose: Not Given Home Med (Home Med) 1 unit PO Q12H PRN PRN Reason: Inflammation Last Admin: 10/18/16 11:03 Dose: 1 unit Hydralazine HCl (Apresoline) 10 mg IVP Q4H PRN PRN Reason: Systolic Blood Pressure Hydromorphone HCl (Dilaudid) 1 mg IVP Q1H PRN PRN Reason: Pain, moderate (4-7) Last Admin: 12/02/16 21:06 Dose: 1 mg Levetiracetam (Keppra 500mg Ivpb) 500 mg in 100 mls @ 400 mls/hr IV Q12 [facility] Last Admin: 12/02/16 21:06 Dose: 400 mls/hr Potassium Chloride/Dextrose (Potassium Chl 40 Meq In D5w) 1,000 mls @ 60 mls/ hr IV .[id number] [facility] Last Admin: 12/02/16 18:17 Dose: Not Given Magnesium Hydroxide (Milk Of Magnesia) 30 ml PO DAILY PRN PRN Reason: skin irritation Last Admin: 12/02/16 14:09 Dose: 30 ml Magnesium Oxide (Mag-Ox) 400 mg PO BID [facility] Last Admin: 12/02/16 18:16 Dose: Not Given Multi-Ingredient Ointment (Hydrophor Oint) 0 gm TOP Q6H PRN PRN Reason: Dry lip Multivitamins (Thera Tab) 1 tab PO 0800 [facility] Last Admin: 12/02/16 08:10 Dose: Not Given Propranolol HCl (Inderal La) 120 mg PO DAILY [facility] Last Admin: 12/02/16 09:44 Dose: Not Given Sucralfate (Carafate Oral Susp) 1 gm PO BID [facility] Last Admin: 12/02/16 18:16 Dose: Not Given - Labs Labs: 12/02/16 06:00 12/02/16 06:00 PT 12.9 Seconds (9.9-11.8) H 12/02/16 06:00 INR 1.19 (0.93-1.08) H 12/02/16 06:00 APTT 32.9 Seconds (23.7-30.8) H 12/02/16 06:00 Assessment and Plan - Assessment and Plan (Free Text) Plan: Patient was seen and examined by me. I agree with assessment and plan as per resident's note.
--- NOTE | 2016-11-21 09:40 | CP.PCM.PN ---
Subjective - Date & Time of Evaluation Date of Evaluation: 11/21/16 Time of Evaluation: 08:15 - Subjective Subjective: Not feeling well today, C/o abd. pain drop H&H . no Chest pain, no SOB, No palpitation. Objective - Vital Signs/Intake and Output Vital Signs (last 24 hours): Temp Pulse Resp BP Pulse Ox 98.4 F 74 20 127/72 100 11/21/16 08:14 11/21/16 08:14 11/21/16 08:14 11/21/16 08:14 11/21/16 08:14 Intake and Output: 11/21/16 11/21/16 06:59 18:59 Intake Total 2460 Output Total 7850 Balance -5390 - Medications Medications: Current Medications Acetaminophen (Tylenol 650 Mg Supp) 650 mg RC Q4H PRN PRN Reason: Fever >100.4 F Last Admin: 11/01/16 21:18 Dose: 650 mg Collagenase (Santyl) 1 gm TOP BID [facility] Last Admin: 11/20/16 18:08 Dose: Not Given Al Hydrox/Mg Hydrox/Simethicone 30 ml/Diphenhydramine HCl 75 mg/Lidocaine 30 ml 0 ml PO Q2H PRN PRN Reason: Mouth/Throat Pain Last Admin: 11/07/16 09:00 Dose: 15 ml Diphenhydramine HCl (Benadryl) 25 mg IVP Q4H PRN PRN Reason: Allergy symptoms Last Admin: 11/21/16 00:37 Dose: 25 mg Ergocalciferol (Drisdol 50,000 Intl Units Cap) 1 cap PO Q7D [facility] Last Admin: 11/19/16 18:04 Dose: Not Given Fentanyl (Duragesic) 1 patch TD Q72H [facility] Last Admin: 11/19/16 15:25 Dose: 1 patch Ferrous Sulfate (Feosol) 324 mg PO TID [facility] Last Admin: 11/20/16 17:38 Dose: 324 mg Furosemide (Lasix) 20 mg IVP Q12 [facility] Last Admin: 11/20/16 22:45 Dose: 20 mg Home Med (Home Med) 1 unit PO Q12H PRN PRN Reason: Inflammation Last Admin: 10/18/16 11:03 Dose: 1 unit Daptomycin 440 mg/ Sodium (Chloride) 100 mls @ 200 mls/hr IV Q24H [facility] Stop: 11/27/16 09:01 Last Admin: 11/20/16 11:47 Dose: 200 mls/hr Hydromorphone HCl (Dilaudid-Hp 1 Mg/Ml Horticultural Agent) 25 mls @ 0.5 mls/hr IV PRN PRN; Protocol PRN Reason: RN EMPLOYEE HEALTH PER MD ORDER Last Admin: 11/19/16 18:24 Dose: 0.5 mls/hr Potassium Chloride 40 meq/ (Dextrose) 1,020 mls @ 60 mls/hr IV .Q17H [facility] Last Admin: 11/21/16 06:41 Dose: 60 mls/hr Micafungin Sodium 100 mg/ (Sodium Chloride) 100 mls @ 100 mls/hr IV DAILY [facility] PRN Reason: Protocol Stop: 11/28/16 10:01 Multi-Ingredient Ointment (Hydrophor Oint) 0 gm TOP Q6H PRN PRN Reason: Dry lip Multivitamins (Thera Tab) 1 tab PO 0800 [facility] Ondansetron HCl (Zofran Inj) 4 mg IVP Q4H PRN PRN Reason: Nausea/Vomiting Last Admin: 11/20/16 18:53 Dose: 4 mg Pantoprazole Sodium (Protonix Inj) 40 mg IVP Q12 [facility] Last Admin: 11/20/16 22:20 Dose: 40 mg Petrolatum (Desitin Maximum Strength Topical 40% Oint) 1 gm TOP Q4H PRN PRN Reason: Rash Last Admin: 10/23/16 22:39 Dose: 1 applic Potassium Chloride (K-Dur 20 Meq Er Tab) 40 meq PO DAILY [facility] Last Admin: 11/20/16 11:11 Dose: 40 meq Propranolol HCl (Inderal La) 120 mg PO DAILY [facility] Last Admin: 11/20/16 11:10 Dose: 120 mg Sucralfate (Carafate Oral Susp) 1 gm PO BID [facility] Last Admin: 11/20/16 18:21 Dose: 1 gm Valganciclovir (Valcyte) 900 mg PO DAILY [facility] Last Admin: 11/14/16 11:09 Dose: Not Given - Labs Labs: 11/20/16 20:25 11/20/16 10:10 PT 12.6 Seconds (9.9-11.8) H 11/17/16 06:00 INR 1.17 (0.93-1.08) H 11/17/16 06:00 APTT 32.9 Seconds (23.7-30.8) H 11/17/16 06:00 - Constitutional Appears: Non-toxic, Other - Head Exam Head Exam: ATRAUMATIC - Eye Exam Eye Exam: Conjunctival injection - ENT Exam ENT Exam: Mucous Membranes Dry - Neck Exam Neck Exam: Full ROM - Respiratory Exam Respiratory Exam: Clear to Ausculation Bilateral - Cardiovascular Exam Cardiovascular Exam: REGULAR RHYTHM - GI/Abdominal Exam GI & Abdominal Exam: Tenderness Assessment and Plan - Assessment and Plan (Free Text) Assessment: Abd pain. Anemia Drop H & H R/o Gi Bleed Ca colon S/p resection , Exp. lap, S/p colostomy Sp P RBCs transfusion tachycadia...stable... 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 will follow.
[2016-11-21] MEDS: Propranolol 60 mg ER Cap PO SCH (10:17)
[2016-11-21] MEDS: Sucralfate 1 gm/10 ml Oral Susp UD PO SCH ×2 (10:17→17:32)
[2016-11-21] MEDS: Multivitamin Therapeutic Tab PO SCH (10:18)
[2016-11-21] MEDS: Potassium Chloride 20 mEq ER Tab PO SCH (10:19)
[2016-11-21] MEDS: Collagenase 250 Units/gm Ointment(30 gm) TOP SCH ×2 (10:22→23:03)
--- NOTE | 2016-11-21 11:06 | CP.PCM.PN ---
<Yoana Osei - Last Filed: 11/21/16 11:06> Subjective - Date & Time of Evaluation Date of Evaluation: 11/21/16 Time of Evaluation: 09:40 - Subjective Subjective: S&E at bedside, sister at side, upset that patient is not as alert as yesterday and requiring more transfusion, had blood transfusion yesterday, hgb dropped, had melena in colostomy bag, currently getting FFP, not much of an appetite this am. OOB yesterday. Abdominal cramps, on LITERACY COACH pump. No N/V. Objective - Vital Signs/Intake and Output Vital Signs (last 24 hours): Temp Pulse Resp BP Pulse Ox 98.4 F 70 20 136/78 100 11/21/16 08:14 11/21/16 10:17 11/21/16 08:14 11/21/16 10:21 11/21/16 08:14 Intake and Output: 11/21/16 11/21/16 06:59 18:59 Intake Total 2460 Output Total 7850 Balance -5390 - Medications Medications: Current Medications Acetaminophen (Tylenol 650 Mg Supp) 650 mg RC Q4H PRN PRN Reason: Fever >100.4 F Last Admin: 11/01/16 21:18 Dose: 650 mg Collagenase (Santyl) 1 gm TOP BID [facility] Last Admin: 11/21/16 10:22 Dose: 1 applic Al Hydrox/Mg Hydrox/Simethicone 30 ml/Diphenhydramine HCl 75 mg/Lidocaine 30 ml 0 ml PO Q2H PRN PRN Reason: Mouth/Throat Pain Last Admin: 11/07/16 09:00 Dose: 15 ml Diphenhydramine HCl (Benadryl) 25 mg IVP Q4H PRN PRN Reason: Allergy symptoms Last Admin: 11/21/16 00:37 Dose: 25 mg Ergocalciferol (Drisdol 50,000 Intl Units Cap) 1 cap PO Q7D [facility] Last Admin: 11/19/16 18:04 Dose: Not Given Fentanyl (Duragesic) 1 patch TD Q72H [facility] Last Admin: 11/19/16 15:25 Dose: 1 patch Ferrous Sulfate (Feosol) 324 mg PO TID [facility] Last Admin: 11/21/16 10:18 Dose: 324 mg Furosemide (Lasix) 20 mg IVP Q12 [facility] Last Admin: 11/21/16 10:21 Dose: 20 mg Home Med (Home Med) 1 unit PO Q12H PRN PRN Reason: Inflammation Last Admin: 10/18/16 11:03 Dose: 1 unit Daptomycin 440 mg/ Sodium (Chloride) 100 mls @ 200 mls/hr IV Q24H [facility] Stop: 11/27/16 09:01 Last Admin: 11/20/16 11:47 Dose: 200 mls/hr Hydromorphone HCl (Dilaudid-Hp 1 Mg/Ml Experimental Welder) 25 mls @ 0.5 mls/hr IV PRN PRN; Protocol PRN Reason: LITERACY COACH PER MD ORDER Last Admin: 11/19/16 18:24 Dose: 0.5 mls/hr Potassium Chloride 40 meq/ (Dextrose) 1,020 mls @ 60 mls/hr IV .Q17H [facility] Last Admin: 11/21/16 06:41 Dose: 60 mls/hr Micafungin Sodium 100 mg/ (Sodium Chloride) 100 mls @ 100 mls/hr IV DAILY [facility] PRN Reason: Protocol Stop: 11/28/16 10:01 Multi-Ingredient Ointment (Hydrophor Oint) 0 gm TOP Q6H PRN PRN Reason: Dry lip Multivitamins (Thera Tab) 1 tab PO 0800 [facility] Last Admin: 11/21/16 10:18 Dose: 1 tab Ondansetron HCl (Zofran Inj) 4 mg IVP Q4H PRN PRN Reason: Nausea/Vomiting Last Admin: 11/20/16 18:53 Dose: 4 mg Pantoprazole Sodium (Protonix Inj) 40 mg IVP Q12 [facility] Last Admin: 11/21/16 10:17 Dose: 40 mg Petrolatum (Desitin Maximum Strength Topical 40% Oint) 1 gm TOP Q4H PRN PRN Reason: Rash Last Admin: 10/23/16 22:39 Dose: 1 applic Potassium Chloride (K-Dur 20 Meq Er Tab) 40 meq PO DAILY [facility] Last Admin: 11/21/16 10:19 Dose: 40 meq Propranolol HCl (Inderal La) 120 mg PO DAILY [facility] Last Admin: 11/21/16 10:17 Dose: 120 mg Sucralfate (Carafate Oral Susp) 1 gm PO BID [facility] Last Admin: 11/21/16 10:17 Dose: 1 gm Valganciclovir (Valcyte) 900 mg PO DAILY [facility] Last Admin: 11/14/16 11:09 Dose: Not Given - Labs Labs: 11/20/16 20:25 11/20/16 10:10 PT 12.6 Seconds (9.9-11.8) H 11/17/16 06:00 INR 1.17 (0.93-1.08) H 11/17/16 06:00 APTT 32.9 Seconds (23.7-30.8) H 11/17/16 06:00 - Constitutional Appears: No Acute Distress - Head Exam Head Exam: NORMOCEPHALIC - Eye Exam Eye Exam: Normal appearance. absent: Scleral icterus - ENT Exam ENT Exam: Mucous Membranes Moist - Neck Exam Neck Exam: Normal Inspection - Respiratory Exam Respiratory Exam: NORMAL BREATHING PATTERN. absent: Respiratory Distress - Cardiovascular Exam Cardiovascular Exam: +S1, +S2 - GI/Abdominal Exam GI & Abdominal Exam: Soft, Tenderness, Normal Bowel Sounds. absent: Guarding, Rebound Additional comments: (+) colostomy with liquid melena, sutures SIGNAL TOWER DIRECTOR, dry and intact - Extremities Exam Extremities Exam: Pedal Edema. absent: Calf Tenderness - Neurological Exam Neurological Exam: Awake, Oriented x3 - Skin Skin Exam: Dry, Warm Assessment and Plan - Assessment and Plan (Free Text) Assessment: ASSESSMENT: S/P Exp Laparotomy, lysis of adhesion, repair of small bowel enterotomy, partial sigmoidectomy w/end-colostomy Stage IV colon cancer with metastasis to the bone Anemia, status post multiple blood transfusions Thrombocytopenia GIB, , rectal bleed S/P flex sigmoidoscopy,still showed the stricture in the sigmoid colon Acute renal failure Esophagitis with ulcerations, BX negative for CMV Bacteremia, Fungemia with Susy Decubitus ulcers PLAN: on regular soft continue PPI on Carafate on LITERACY COACH pump on IVF monitor h/h, transfuse as needed on IV antibiotics as per ID as per oncology, surgery Seen and case discussed with Dr. Null <Tong Null V - Last Filed: 11/21/16 21:29> Objective - Vital Signs/Intake and Output Vital Signs (last 24 hours): Temp Pulse Resp BP Pulse Ox 97.8 F 83 18 146/86 100 11/21/16 16:00 11/21/16 16:00 11/21/16 16:00 11/21/16 16:00 11/21/16 16:00 Intake and Output: 11/21/16 11/22/16 18:59 06:59 Intake Total 560 Output Total 1100 Balance -540 - Medications Medications: Current Medications Acetaminophen (Tylenol 650 Mg Supp) 650 mg RC Q4H PRN PRN Reason: Fever >100.4 F Last Admin: 11/01/16 21:18 Dose: 650 mg Collagenase (Santyl) 1 gm TOP BID [facility] Last Admin: 11/21/16 10:22 Dose: 1 applic Al Hydrox/Mg Hydrox/Simethicone 30 ml/Diphenhydramine HCl 75 mg/Lidocaine 30 ml 0 ml PO Q2H PRN PRN Reason: Mouth/Throat Pain Last Admin: 11/07/16 09:00 Dose: 15 ml Diphenhydramine HCl (Benadryl) 25 mg IVP Q4H PRN PRN Reason: Allergy symptoms Last Admin: 11/21/16 00:37 Dose: 25 mg Ergocalciferol (Drisdol 50,000 Intl Units Cap) 1 cap PO Q7D [facility] Last Admin: 11/19/16 18:04 Dose: Not Given Fentanyl (Duragesic) 1 patch TD Q72H [facility] Last Admin: 11/19/16 15:25 Dose: 1 patch Ferrous Sulfate (Feosol) 324 mg PO TID [facility] Last Admin: 11/21/16 17:32 Dose: 324 mg Furosemide (Lasix) 20 mg IVP Q12 [facility] Last Admin: 11/21/16 10:21 Dose: 20 mg Home Med (Home Med) 1 unit PO Q12H PRN PRN Reason: Inflammation Last Admin: 10/18/16 11:03 Dose: 1 unit Hydromorphone HCl (Dilaudid-Hp 1 Mg/Ml Experimental Welder) 25 mg IV PRN PRN PRN Reason: Pain, severe (8-10) Stop: 11/22/16 09:00 Daptomycin 440 mg/ Sodium (Chloride) 100 mls @ 200 mls/hr IV Q24H [facility] Stop: 11/27/16 09:01 Last Admin: 11/21/16 11:29 Dose: 200 mls/hr Hydromorphone HCl (Dilaudid-Hp 1 Mg/Ml Experimental Welder) 25 mls @ 0.5 mls/hr IV PRN PRN; Protocol PRN Reason: LITERACY COACH PER MD ORDER Last Admin: 11/19/16 18:24 Dose: 0.5 mls/hr Potassium Chloride 40 meq/ (Dextrose) 1,020 mls @ 60 mls/hr IV .Q17H [facility] Last Admin: 11/21/16 18:07 Dose: 60 mls/hr Micafungin Sodium 100 mg/ (Sodium Chloride) 100 mls @ 100 mls/hr IV DAILY [facility] PRN Reason: Protocol Stop: 11/28/16 10:01 Last Admin: 11/21/16 13:10 Dose: 100 mls/hr Multi-Ingredient Ointment (Hydrophor Oint) 0 gm TOP Q6H PRN PRN Reason: Dry lip Multivitamins (Thera Tab) 1 tab PO 0800 [facility] Last Admin: 11/21/16 10:18 Dose: 1 tab Ondansetron HCl (Zofran Inj) 4 mg IVP Q4H PRN PRN Reason: Nausea/Vomiting Last Admin: 11/20/16 18:53 Dose: 4 mg Pantoprazole Sodium (Protonix Inj) 40 mg IVP Q12 [facility] Last Admin: 11/21/16 10:17 Dose: 40 mg Petrolatum (Desitin Maximum Strength Topical 40% Oint) 1 gm TOP Q4H PRN PRN Reason: Rash Last Admin: 10/23/16 22:39 Dose: 1 applic Potassium Chloride (K-Dur 20 Meq Er Tab) 40 meq PO DAILY [facility] Last Admin: 11/21/16 10:19 Dose: 40 meq Propranolol HCl (Inderal La) 120 mg PO DAILY [facility] Last Admin: 11/21/16 10:17 Dose: 120 mg Sucralfate (Carafate Oral Susp) 1 gm PO BID [facility] Last Admin: 11/21/16 17:32 Dose: 1 gm Valganciclovir (Valcyte) 900 mg PO DAILY [facility] Last Admin: 11/14/16 11:09 Dose: Not Given - Labs Labs: 11/21/16 11:00 11/21/16 11:00 PT 12.6 Seconds (9.9-11.8) H 11/17/16 06:00 INR 1.17 (0.93-1.08) H 11/17/16 06:00 APTT 32.9 Seconds (23.7-30.8) H 11/17/16 06:00 Attending/Attestation - Attestation I have personally seen and examined this patient.: Yes I have fully participated in the care of the patient.: Yes I have reviewed all pertinent clinical information, including history, physical exam and plan: Yes Notes (Text): 11/21/16 21:24 This patient was seen and evaluated earlier. The nuclear scan was reviewed and negative for active bleeding. Patient still complains of cramping intermittent abdominal pain. Colostomy bag still has dark stool prob melena On examination abdomen is softly distended tender Discussed with the Dr. Hendricks. Discussed at length with the patient and also patient's mothe. Patient's last CAT scan was on October 25 and this was reviewed. The CT was done with no P Mcgee or IV contrast. Patient is allergic to IV contrast CT history of recent acute kidney injury It may be reasonable to consider in her situation CT scan of the abdomen and pelvis with by mouth contrast We will discuss with the surgical team and also with Dr. Hendricks Patient didn't receive 2 units of packed RBC and FFP he moved Garcia has appropriately gone up. Would recommend close follow-up of the hemoglobin and hematocrit and platelets Thank you very much for allowing us to participate in the care of the patient
[2016-11-21 11:40] LABS: ALB/GLOB RATIO 0.8 (1.1-1.8); ALBUMIN 2.1 g/dL (3.0-4.8); ALT/SGPT 32 U/L (7-56); AST/SGOT 17 U/L (15-39); BLOOD UREA NITROGEN 18 mg/dL (7-21); GFR AFRICAN-AMERICAN > 60; GFR NON-AFRICAN AMERICAN > 60; MAGNESIUM 1.4 mg/dL (1.7-2.2)
--- NOTE | 2016-11-21 12:10 | CP.PCM.PN ---
Subjective - Date & Time of Evaluation Date of Evaluation: 11/21/16 Time of Evaluation: 11:30 - Subjective Subjective: Still has pain in the abdomen, swallowing is slightly better, no fevers overnight. Objective - Vital Signs/Intake and Output Vital Signs (last 24 hours): Temp Pulse Resp BP Pulse Ox 98.4 F 74 20 127/72 100 11/21/16 08:14 11/21/16 08:14 11/21/16 08:14 11/21/16 08:14 11/21/16 08:14 Intake and Output: 11/21/16 11/21/16 06:59 18:59 Intake Total 2460 Output Total 7850 Balance -5390 - Medications Medications: Current Medications Acetaminophen (Tylenol 650 Mg Supp) 650 mg RC Q4H PRN PRN Reason: Fever >100.4 F Last Admin: 11/01/16 21:18 Dose: 650 mg Collagenase (Santyl) 1 gm TOP BID [facility] Last Admin: 11/20/16 18:08 Dose: Not Given Al Hydrox/Mg Hydrox/Simethicone 30 ml/Diphenhydramine HCl 75 mg/Lidocaine 30 ml 0 ml PO Q2H PRN PRN Reason: Mouth/Throat Pain Last Admin: 11/07/16 09:00 Dose: 15 ml Diphenhydramine HCl (Benadryl) 25 mg IVP Q4H PRN PRN Reason: Allergy symptoms Last Admin: 11/21/16 00:37 Dose: 25 mg Ergocalciferol (Drisdol 50,000 Intl Units Cap) 1 cap PO Q7D [facility] Last Admin: 11/19/16 18:04 Dose: Not Given Fentanyl (Duragesic) 1 patch TD Q72H [facility] Last Admin: 11/19/16 15:25 Dose: 1 patch Ferrous Sulfate (Feosol) 324 mg PO TID [facility] Last Admin: 11/20/16 17:38 Dose: 324 mg Furosemide (Lasix) 20 mg IVP Q12 [facility] Last Admin: 11/20/16 22:45 Dose: 20 mg Home Med (Home Med) 1 unit PO Q12H PRN PRN Reason: Inflammation Last Admin: 10/18/16 11:03 Dose: 1 unit Daptomycin 440 mg/ Sodium (Chloride) 100 mls @ 200 mls/hr IV Q24H [facility] Stop: 11/27/16 09:01 Last Admin: 11/20/16 11:47 Dose: 200 mls/hr Hydromorphone HCl (Dilaudid-Hp 1 Mg/Ml Director Of Conservation) 25 mls @ 0.5 mls/hr IV PRN PRN; Protocol PRN Reason: EXTERMINATION SUPERVISOR PER MD ORDER Last Admin: 11/19/16 18:24 Dose: 0.5 mls/hr Potassium Chloride 40 meq/ (Dextrose) 1,020 mls @ 60 mls/hr IV .Q17H [facility] Last Admin: 11/21/16 06:41 Dose: 60 mls/hr Micafungin Sodium 100 mg/ (Sodium Chloride) 100 mls @ 100 mls/hr IV DAILY [facility] PRN Reason: Protocol Stop: 11/28/16 10:01 Multi-Ingredient Ointment (Hydrophor Oint) 0 gm TOP Q6H PRN PRN Reason: Dry lip Multivitamins (Thera Tab) 1 tab PO 0800 [facility] Ondansetron HCl (Zofran Inj) 4 mg IVP Q4H PRN PRN Reason: Nausea/Vomiting Last Admin: 11/20/16 18:53 Dose: 4 mg Pantoprazole Sodium (Protonix Inj) 40 mg IVP Q12 [facility] Last Admin: 11/20/16 22:20 Dose: 40 mg Petrolatum (Desitin Maximum Strength Topical 40% Oint) 1 gm TOP Q4H PRN PRN Reason: Rash Last Admin: 10/23/16 22:39 Dose: 1 applic Potassium Chloride (K-Dur 20 Meq Er Tab) 40 meq PO DAILY [facility] Last Admin: 11/20/16 11:11 Dose: 40 meq Propranolol HCl (Inderal La) 120 mg PO DAILY [facility] Last Admin: 11/20/16 11:10 Dose: 120 mg Sucralfate (Carafate Oral Susp) 1 gm PO BID [facility] Last Admin: 11/20/16 18:21 Dose: 1 gm Valganciclovir (Valcyte) 900 mg PO DAILY [facility] Last Admin: 11/14/16 11:09 Dose: Not Given - Labs Labs: 11/20/16 20:25 11/20/16 10:10 PT 12.6 Seconds (9.9-11.8) H 11/17/16 06:00 INR 1.17 (0.93-1.08) H 11/17/16 06:00 APTT 32.9 Seconds (23.7-30.8) H 11/17/16 06:00 - Constitutional Appears: Non-toxic, No Acute Distress - Head Exam Head Exam: NORMAL INSPECTION - Neck Exam Neck Exam: absent: Meningismus - Respiratory Exam Respiratory Exam: Decreased Breath Sounds - Cardiovascular Exam Cardiovascular Exam: +S1, +S2 - GI/Abdominal Exam GI & Abdominal Exam: Soft. absent: Tenderness - Extremities Exam Additional comments: left upper arm PICC line site intact Assessment and Plan - Assessment and Plan (Free Text) Plan: Assessment sepsis due to C. 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 staph in repeat blood cx bottle, consider bacteremia R/O secondary to PICC line R/O contamination (since only 1 of 4 bottles were positive for the organism) Partial small bowel obstruction, persistent with colonic stricture S/P exploratory laparotomy, lysis of adhesions, repair of small bowel enterotomy and partial sigmoidectomy with end-colostomy POD #2 Acute stomatitis and mucositis, as well as esophageal ulcers (esophagitis) and enteritis - no CMV noted on biopsy sample of the esophageal ulcers - consider Susy Esophagitis Neutropenia probably from chemotherapy, resolved HTN 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
[2016-11-21 12:21] LABS: EOS % 0.2 % (1.5-5.0); GRAN # 4.07 (1.4-6.5); GRAN % 84.2 % (50.0-68.0); LYMPH # 0.5 (1.2-3.4); LYMPH % 10.8 % (22.0-35.0); MEAN CELL VOLUME 99.6 fL (80.0-105.0); MEAN CORPUSCULAR HEMOGLOBIN 37.3 pg (25.0-35.0); MEAN CORPUSCULAR HGB CONC 37.5 g/dl (31.0-37.0); MEAN PLATELET VOLUME 12.1 fl (7.0-11.0); MONO # 0.2 (0.1-0.6); MONO % 4.8 % (1.0-6.0); PLATELET COUNT 98 10^3/uL (120.0-450.0); RBC 2.41 10^6/uL (3.5-6.1); WHITE BLOOD COUNT 4.8 10^3/ul (4.5-11.0)
--- NOTE | 2016-11-21 13:03 | CP.PCM.PN ---
Subjective - Date & Time of Evaluation Date of Evaluation: 11/21/16 Time of Evaluation: 12:10 - Subjective Subjective: C/o pain PO intake poor Assessment and Plan (1) Colon tumor Status: Chronic (2) Hypoalbuminemia Status: Acute - Assessment and Plan (Free Text) Assessment: (1) Colon tumor Status: Chronic s/p laparomy, colostomy, POD #4 (2) Hypoalbuminemia Status: Acute SEVERE MALNUTRITION, NOW WITH FUNGUS IN BLOOD, Status: Acute (3) GIB: severe anemia, con't management per GI/Hematology BLEEDING SCAN -VE (4) Hypernatremia: Change IVF to D5W (5) SEVERE HYPOKALEMIA: resolved, Increased KCL in IVF, Decreased rate (6) Hypomagnesemia :1 gm MgSO4 replacement, (7) S/P palliative surgery, POD #4 Objective - Vital Signs/Intake and Output Vital Signs (last 24 hours): Temp Pulse Resp BP Pulse Ox 98.4 F 70 20 136/78 100 11/21/16 08:14 11/21/16 10:17 11/21/16 08:14 11/21/16 10:21 11/21/16 08:14 Intake and Output: 11/21/16 11/21/16 06:59 18:59 Intake Total 2460 Output Total 7850 Balance -5390 - Medications Medications: Current Medications Acetaminophen (Tylenol 650 Mg Supp) 650 mg RC Q4H PRN PRN Reason: Fever >100.4 F Last Admin: 11/01/16 21:18 Dose: 650 mg Collagenase (Santyl) 1 gm TOP BID [facility] Last Admin: 11/21/16 10:22 Dose: 1 applic Al Hydrox/Mg Hydrox/Simethicone 30 ml/Diphenhydramine HCl 75 mg/Lidocaine 30 ml 0 ml PO Q2H PRN PRN Reason: Mouth/Throat Pain Last Admin: 11/07/16 09:00 Dose: 15 ml Diphenhydramine HCl (Benadryl) 25 mg IVP Q4H PRN PRN Reason: Allergy symptoms Last Admin: 11/21/16 00:37 Dose: 25 mg Ergocalciferol (Drisdol 50,000 Intl Units Cap) 1 cap PO Q7D [facility] Last Admin: 11/19/16 18:04 Dose: Not Given Fentanyl (Duragesic) 1 patch TD Q72H [facility] Last Admin: 11/19/16 15:25 Dose: 1 patch Ferrous Sulfate (Feosol) 324 mg PO TID [facility] Last Admin: 11/21/16 10:18 Dose: 324 mg Furosemide (Lasix) 20 mg IVP Q12 [facility] Last Admin: 11/21/16 10:21 Dose: 20 mg Home Med (Home Med) 1 unit PO Q12H PRN PRN Reason: Inflammation Last Admin: 10/18/16 11:03 Dose: 1 unit Daptomycin 440 mg/ Sodium (Chloride) 100 mls @ 200 mls/hr IV Q24H [facility] Stop: 11/27/16 09:01 Last Admin: 11/21/16 11:29 Dose: 200 mls/hr Hydromorphone HCl (Dilaudid-Hp 1 Mg/Ml [employer]/[place]) 25 mls @ 0.5 mls/hr IV PRN PRN; Protocol PRN Reason: TENSILE TESTER PER MD ORDER Last Admin: 11/19/16 18:24 Dose: 0.5 mls/hr Potassium Chloride 40 meq/ (Dextrose) 1,020 mls @ 60 mls/hr IV .Q17H [facility] Last Admin: 11/21/16 06:41 Dose: 60 mls/hr Micafungin Sodium 100 mg/ (Sodium Chloride) 100 mls @ 100 mls/hr IV DAILY [facility] PRN Reason: Protocol Stop: 11/28/16 10:01 Magnesium Sulfate 1 gm/ Sodium (Chloride) 102 mls @ 102 mls/hr IV ONCE ONE Stop: 11/21/16 13:58 Multi-Ingredient Ointment (Hydrophor Oint) 0 gm TOP Q6H PRN PRN Reason: Dry lip Multivitamins (Thera Tab) 1 tab PO 0800 [facility] Last Admin: 11/21/16 10:18 Dose: 1 tab Ondansetron HCl (Zofran Inj) 4 mg IVP Q4H PRN PRN Reason: Nausea/Vomiting Last Admin: 11/20/16 18:53 Dose: 4 mg Pantoprazole Sodium (Protonix Inj) 40 mg IVP Q12 [facility] Last Admin: 11/21/16 10:17 Dose: 40 mg Petrolatum (Desitin Maximum Strength Topical 40% Oint) 1 gm TOP Q4H PRN PRN Reason: Rash Last Admin: 10/23/16 22:39 Dose: 1 applic Potassium Chloride (K-Dur 20 Meq Er Tab) 40 meq PO DAILY [facility] Last Admin: 11/21/16 10:19 Dose: 40 meq Propranolol HCl (Inderal La) 120 mg PO DAILY [facility] Last Admin: 11/21/16 10:17 Dose: 120 mg Sucralfate (Carafate Oral Susp) 1 gm PO BID [facility] Last Admin: 11/21/16 10:17 Dose: 1 gm Valganciclovir (Valcyte) 900 mg PO DAILY [facility] Last Admin: 11/14/16 11:09 Dose: Not Given - Labs Labs: 11/21/16 11:00 11/21/16 11:00 PT 12.6 Seconds (9.9-11.8) H 11/17/16 06:00 INR 1.17 (0.93-1.08) H 11/17/16 06:00 APTT 32.9 Seconds (23.7-30.8) H 11/17/16 06:00 - Constitutional Appears: Chronically Ill - Eye Exam Eye Exam: Normal appearance - ENT Exam ENT Exam: Mucous Membranes Dry - Respiratory Exam Respiratory Exam: NORMAL BREATHING PATTERN - Cardiovascular Exam Cardiovascular Exam: REGULAR RHYTHM, +S1, +S2 - GI/Abdominal Exam GI & Abdominal Exam: Firm, Tenderness Additional comments: Colostomy - Extremities Exam Extremities Exam: Pedal Edema Assessment and Plan (1) Colon tumor Status: Chronic (2) Hypoalbuminemia Status: Acute
[2016-11-21] MEDS: Micafungin 100 MG in Sodium Chloride 0.9% 100 ML IV SCH (13:10)
--- NOTE | 2016-11-21 15:15 | CP.PCM.PN ---
<Cassie Arcos - Last Filed: 11/21/16 15:11> Subjective - Date & Time of Evaluation Date of Evaluation: 11/21/16 Time of Evaluation: 15:11 - Subjective Subjective: PGY-[address] Hendricks Pt has decrease pain requirement but feel tired today Otherwise, no acute complaint Objective - Vital Signs/Intake and Output Vital Signs (last 24 hours): Temp Pulse Resp BP Pulse Ox 98.4 F 70 20 136/78 100 11/21/16 08:14 11/21/16 10:17 11/21/16 08:14 11/21/16 10:21 11/21/16 08:14 Intake and Output: 11/21/16 11/21/16 06:59 18:59 Intake Total 2460 560 Output Total 7850 1100 Balance -5390 -540 - Medications Medications: Current Medications Acetaminophen (Tylenol 650 Mg Supp) 650 mg RC Q4H PRN PRN Reason: Fever >100.4 F Last Admin: 11/01/16 21:18 Dose: 650 mg Collagenase (Santyl) 1 gm TOP BID [facility] Last Admin: 11/21/16 10:22 Dose: 1 applic Al Hydrox/Mg Hydrox/Simethicone 30 ml/Diphenhydramine HCl 75 mg/Lidocaine 30 ml 0 ml PO Q2H PRN PRN Reason: Mouth/Throat Pain Last Admin: 11/07/16 09:00 Dose: 15 ml Diphenhydramine HCl (Benadryl) 25 mg IVP Q4H PRN PRN Reason: Allergy symptoms Last Admin: 11/21/16 00:37 Dose: 25 mg Ergocalciferol (Drisdol 50,000 Intl Units Cap) 1 cap PO Q7D [facility] Last Admin: 11/19/16 18:04 Dose: Not Given Fentanyl (Duragesic) 1 patch TD Q72H [facility] Last Admin: 11/19/16 15:25 Dose: 1 patch Ferrous Sulfate (Feosol) 324 mg PO TID [facility] Last Admin: 11/21/16 13:12 Dose: Not Given Furosemide (Lasix) 20 mg IVP Q12 [facility] Last Admin: 11/21/16 10:21 Dose: 20 mg Home Med (Home Med) 1 unit PO Q12H PRN PRN Reason: Inflammation Last Admin: 10/18/16 11:03 Dose: 1 unit Daptomycin 440 mg/ Sodium (Chloride) 100 mls @ 200 mls/hr IV Q24H [facility] Stop: 11/27/16 09:01 Last Admin: 11/21/16 11:29 Dose: 200 mls/hr Hydromorphone HCl (Dilaudid-Hp 1 Mg/Ml Pyrometer Operator) 25 mls @ 0.5 mls/hr IV PRN PRN; Protocol PRN Reason: COMMUNITY HEALTH DIRECTOR PER MD ORDER Last Admin: 11/19/16 18:24 Dose: 0.5 mls/hr Potassium Chloride 40 meq/ (Dextrose) 1,020 mls @ 60 mls/hr IV .Q17H [facility] Last Admin: 11/21/16 06:41 Dose: 60 mls/hr Micafungin Sodium 100 mg/ (Sodium Chloride) 100 mls @ 100 mls/hr IV DAILY [facility] PRN Reason: Protocol Stop: 11/28/16 10:01 Last Admin: 11/21/16 13:10 Dose: 100 mls/hr Multi-Ingredient Ointment (Hydrophor Oint) 0 gm TOP Q6H PRN PRN Reason: Dry lip Multivitamins (Thera Tab) 1 tab PO 0800 [facility] Last Admin: 11/21/16 10:18 Dose: 1 tab Ondansetron HCl (Zofran Inj) 4 mg IVP Q4H PRN PRN Reason: Nausea/Vomiting Last Admin: 11/20/16 18:53 Dose: 4 mg Pantoprazole Sodium (Protonix Inj) 40 mg IVP Q12 [facility] Last Admin: 11/21/16 10:17 Dose: 40 mg Petrolatum (Desitin Maximum Strength Topical 40% Oint) 1 gm TOP Q4H PRN PRN Reason: Rash Last Admin: 10/23/16 22:39 Dose: 1 applic Potassium Chloride (K-Dur 20 Meq Er Tab) 40 meq PO DAILY [facility] Last Admin: 11/21/16 10:19 Dose: 40 meq Propranolol HCl (Inderal La) 120 mg PO DAILY [facility] Last Admin: 11/21/16 10:17 Dose: 120 mg Sucralfate (Carafate Oral Susp) 1 gm PO BID [facility] Last Admin: 11/21/16 10:17 Dose: 1 gm Valganciclovir (Valcyte) 900 mg PO DAILY [facility] Last Admin: 11/14/16 11:09 Dose: Not Given - Labs Labs: 11/21/16 11:00 11/21/16 11:00 PT 12.6 Seconds (9.9-11.8) H 11/17/16 06:00 INR 1.17 (0.93-1.08) H 11/17/16 06:00 APTT 32.9 Seconds (23.7-30.8) H 11/17/16 06:00 - Constitutional Appears: No Acute Distress, Chronically Ill - Head Exam Head Exam: ATRAUMATIC, NORMAL INSPECTION, NORMOCEPHALIC - Eye Exam Eye Exam: EOMI, Normal appearance, PERRL. absent: Scleral icterus Pupil Exam: NORMAL ACCOMODATION - ENT Exam ENT Exam: Mucous Membranes Moist - Respiratory Exam Respiratory Exam: Decreased Breath Sounds, Clear to Ausculation Bilateral. absent: Rales, Rhonchi, Wheezes - Cardiovascular Exam Cardiovascular Exam: REGULAR RHYTHM, +S1, +S2, Murmur - GI/Abdominal Exam GI & Abdominal Exam: Soft, Tenderness (midline incision line, sofie, no erythema, no draiangae; rizwan draine serosang. melonic stool in ostomy), Normal Bowel Sounds - Extremities Exam Extremities Exam: Normal Capillary Refill, Pedal Edema. absent: Calf Tenderness - Psychiatric Exam Psychiatric exam: Normal Affect, Normal Mood - Skin Skin Exam: Dry, Warm Assessment and Plan - Assessment and Plan (Free Text) Plan: 61 F with PMHx stage 4 colorectal cancer S/P colectomy in 2014 with stenosis of sigmoid colon and esophageal ulceration of unclear etiology. Cancer has metastatis to sacral area, Hx Cauda Equina syndrome. She was hospitalized on for watery diarrhea with neutropenia. This hospitalization was complicated by (1) neutropenia sepsis due to bacteremia and fungemia. (2) Now mucositis with GI bleed (hematochesia/maroon stool) requiring transfusion. Plan: GI bleed expect to improve s/p Palliative colostomy (11/17). However, pt had 2 sites of GI bleed. upper vs lower. Treatment of bacteremia and fungemia on going. Revisited goal of care on 11/12. Pt states that she is not ready for palliative or comfort care. Plan to rehab. #Stage IV metastatic colorectal cancer - hold futher specific treatment for now due to complications - s/p Port-a-cath removal (11/14) #GI bleed, Active, (upper and lower) - consider transexamic acid pending GI input - dark stool in ostomy bag, got 2u pRBC and FFP overnight - pt states that regular diet too dry; consider soft? - bleeding scan (-); plan to repeat bleeding scan - EGD/colonoscopy: Stricture at sigmoid colon from external pressure, with ulceration - Many ulcers on esophagus found on EGD, pathology negative - Protonix IV BID + sucralfate - clear ensure 3/day - Dietitan: under-nutritient - Lasix, Lopressor for BP control; propranolol 1g bid to prevent upper GI bleed # thrombocytopenia - DIC workup negative #Enterococcus Bacteremia and Susy fungemia and CMV on upper GI ulcer - Daptomycin - micafungin ? - hold Valganciclovir since there was no evidence of CMV on the biopsy of the ulcers in the esophagus - will consider restarting acyclovir #Dispo - prognosis guarded - tcu eval - OOB to chair will not cause GI bleed. Increase pain coverage prior transfer and safety precaution. - goal is to taper COMMUNITY HEALTH DIRECTOR need #Full code #Access - L PICC - minor - ostomy s/r/d/s Dr. Hendricks <Kedar Hendricks P - Last Filed: 11/22/16 19:48> Objective - Vital Signs/Intake and Output Vital Signs (last 24 hours): Temp Pulse Resp BP Pulse Ox 97.6 F 74 20 140/90 97 11/22/16 16:00 11/22/16 16:00 11/22/16 16:00 11/22/16 16:00 11/22/16 16:00 Intake and Output: 11/22/16 11/23/16 18:59 06:59 Intake Total 1745 Output Total 1370 Balance 375 - Medications Medications: Current Medications Acetaminophen (Tylenol 650 Mg Supp) 650 mg RC Q4H PRN PRN Reason: Fever >100.4 F Last Admin: 11/01/16 21:18 Dose: 650 mg Collagenase (Santyl) 1 gm TOP BID [facility] Last Admin: 11/22/16 18:20 Dose: 1 applic Al Hydrox/Mg Hydrox/Simethicone 30 ml/Diphenhydramine HCl 75 mg/Lidocaine 30 ml 0 ml PO Q2H PRN PRN Reason: Mouth/Throat Pain Last Admin: 11/07/16 09:00 Dose: 15 ml Diphenhydramine HCl (Benadryl) 50 mg IVP HS PRN PRN Reason: Insomnia Ergocalciferol (Drisdol 50,000 Intl Units Cap) 1 cap PO Q7D [facility] Last Admin: 11/19/16 18:04 Dose: Not Given Fentanyl (Duragesic) 1 patch TD Q72H [facility] Last Admin: 11/22/16 14:30 Dose: 1 patch Ferrous Sulfate (Feosol) 324 mg PO TID [facility] Last Admin: 11/22/16 19:31 Dose: 324 mg Furosemide (Lasix) 20 mg IVP Q12 [facility] Last Admin: 11/22/16 10:15 Dose: 20 mg Home Med (Home Med) 1 unit PO Q12H PRN PRN Reason: Inflammation Last Admin: 10/18/16 11:03 Dose: 1 unit Daptomycin 440 mg/ Sodium (Chloride) 100 mls @ 200 mls/hr IV Q24H [facility] Stop: 11/27/16 09:01 Last Admin: 11/22/16 11:36 Dose: 200 mls/hr Potassium Chloride 40 meq/ (Dextrose) 1,020 mls @ 60 mls/hr IV .Q17H [facility] Last Admin: 11/22/16 11:40 Dose: 60 mls/hr Micafungin Sodium 100 mg/ (Sodium Chloride) 100 mls @ 100 mls/hr IV DAILY [facility] PRN Reason: Protocol Stop: 11/28/16 10:01 Last Admin: 11/22/16 10:19 Dose: 100 mls/hr Hydromorphone HCl (Dilaudid-Hp 1 Mg/Ml Pyrometer Operator) 25 mls @ 0.5 mls/hr IV PRN PRN PRN Reason: COMMUNITY HEALTH DIRECTOR PER MD ORDER Last Admin: 11/22/16 12:16 Dose: 0.5 mls/hr Magnesium Oxide (Mag-Ox) 400 mg PO BID [facility] Last Admin: 11/22/16 19:31 Dose: 400 mg Multi-Ingredient Ointment (Hydrophor Oint) 0 gm TOP Q6H PRN PRN Reason: Dry lip Multivitamins (Thera Tab) 1 tab PO 0800 [facility] Last Admin: 11/22/16 10:16 Dose: 1 tab Ondansetron HCl (Zofran Inj) 4 mg IVP Q4H PRN PRN Reason: Nausea/Vomiting Last Admin: 11/22/16 14:30 Dose: 4 mg Pantoprazole Sodium (Protonix Inj) 40 mg IVP Q12 [facility] Last Admin: 11/22/16 10:16 Dose: 40 mg Petrolatum (Desitin Maximum Strength Topical 40% Oint) 1 gm TOP Q4H PRN PRN Reason: Rash Last Admin: 10/23/16 22:39 Dose: 1 applic Potassium Chloride (K-Dur 20 Meq Er Tab) 40 meq PO DAILY [facility] Last Admin: 11/22/16 10:15 Dose: Not Given Propranolol HCl (Inderal La) 120 mg PO DAILY [facility] Last Admin: 11/22/16 10:14 Dose: 120 mg Sucralfate (Carafate Oral Susp) 1 gm PO BID [facility] Last Admin: 11/22/16 19:31 Dose: 1 gm - Labs Labs: 11/22/16 06:30 11/22/16 06:30 PT 12.6 Seconds (9.9-11.8) H 11/17/16 06:00 INR 1.17 (0.93-1.08) H 11/17/16 06:00 APTT 32.9 Seconds (23.7-30.8) H 11/17/16 06:00 Attending/Attestation - Attestation I have personally seen and examined this patient.: Yes I have fully participated in the care of the patient.: Yes I have reviewed all pertinent clinical information, including history, physical exam and plan: Yes
--- NOTE | 2016-11-21 18:15 | NM ---
PROCEDURE: Radionuclide GI bleeding study HISTORY: r/o gi bleed COMPARISON: 11/16/2016 TECHNIQUE: Autologous red blood cells were tagged in vitro with 20.0 mCi of technetium 99 M Ultratag and re- administered intravenously. Images were acquired in the anterior projection at 3 seconds per frame for 48 seconds, followed by a images acquired at 1 minute per frame for 60 minutes. FINDINGS: There is no abnormal accumulation of activity within the abdomen or pelvis. Physiologic activity is seen within the liver and aortoiliac vessels. . The heart and spleen were excluded from the field view. IMPRESSION: No evidence of gastrointestinal bleeding.
[2016-11-21] MEDS ORDERED: HYDROmorphone 1 mg/ml PCA IV PRN (20:50)
[2016-11-21] MEDS: HYDROmorphone 1 mg/ml PCA 25 ML IV PRN (22:55)
--- NOTE | 2016-11-22 07:10 | CP.PCM.PN ---
<Dereje London - Last Filed: 11/22/16 07:19> Subjective - Date & Time of Evaluation Date of Evaluation: 11/22/16 Time of Evaluation: 07:06 - Subjective Subjective: General Surgery Dr. Mccracken Patient seen and examined at bedside this morning. No acute events overnight. Patient states she has not been able to sleep for the last two night. She is feeling stronger today compared to yesterday. States she had a period of extreme pain in her lower abdomen and lower back that last for approx. 5 to 6 minutes last night. Her pain is currently well controlled. States she is hungry but has no desire to eat because all food has no taste to her at the moment. Objective - Vital Signs/Intake and Output Vital Signs (last 24 hours): Temp Pulse Resp BP Pulse Ox 97.8 F 83 18 144/88 100 11/21/16 16:00 11/21/16 16:00 11/21/16 16:00 11/21/16 22:55 11/21/16 16:00 Intake and Output: 11/22/16 11/22/16 06:59 18:59 Intake Total 360 1625 Output Total 440 Balance -80 1625 - Medications Medications: Current Medications Acetaminophen (Tylenol 650 Mg Supp) 650 mg RC Q4H PRN PRN Reason: Fever >100.4 F Last Admin: 11/01/16 21:18 Dose: 650 mg Collagenase (Santyl) 1 gm TOP BID [facility] Last Admin: 11/21/16 23:03 Dose: 1 applic Al Hydrox/Mg Hydrox/Simethicone 30 ml/Diphenhydramine HCl 75 mg/Lidocaine 30 ml 0 ml PO Q2H PRN PRN Reason: Mouth/Throat Pain Last Admin: 11/07/16 09:00 Dose: 15 ml Diphenhydramine HCl (Benadryl) 25 mg IVP Q4H PRN PRN Reason: Allergy symptoms Last Admin: 11/21/16 00:37 Dose: 25 mg Ergocalciferol (Drisdol 50,000 Intl Units Cap) 1 cap PO Q7D [facility] Last Admin: 11/19/16 18:04 Dose: Not Given Fentanyl (Duragesic) 1 patch TD Q72H [facility] Last Admin: 11/19/16 15:25 Dose: 1 patch Ferrous Sulfate (Feosol) 324 mg PO TID [facility] Last Admin: 11/21/16 17:32 Dose: 324 mg Furosemide (Lasix) 20 mg IVP Q12 [facility] Last Admin: 11/21/16 22:55 Dose: 20 mg Home Med (Home Med) 1 unit PO Q12H PRN PRN Reason: Inflammation Last Admin: 10/18/16 11:03 Dose: 1 unit Hydromorphone HCl (Dilaudid-Hp 1 Mg/Ml Pediatric Dental Assistant) 25 mg IV PRN PRN PRN Reason: Pain, severe (8-10) Stop: 11/22/16 09:00 Daptomycin 440 mg/ Sodium (Chloride) 100 mls @ 200 mls/hr IV Q24H [facility] Stop: 11/27/16 09:01 Last Admin: 11/21/16 11:29 Dose: 200 mls/hr Hydromorphone HCl (Dilaudid-Hp 1 Mg/Ml Pediatric Dental Assistant) 25 mls @ 0.5 mls/hr IV PRN PRN; Protocol PRN Reason: BUYER ASSISTANT PER MD ORDER Last Admin: 11/21/16 22:55 Dose: 0.5 mls/hr Potassium Chloride 40 meq/ (Dextrose) 1,020 mls @ 60 mls/hr IV .Q17H [facility] Last Admin: 11/21/16 23:03 Dose: 60 mls/hr Micafungin Sodium 100 mg/ (Sodium Chloride) 100 mls @ 100 mls/hr IV DAILY [facility] PRN Reason: Protocol Stop: 11/28/16 10:01 Last Admin: 11/21/16 13:10 Dose: 100 mls/hr Multi-Ingredient Ointment (Hydrophor Oint) 0 gm TOP Q6H PRN PRN Reason: Dry lip Multivitamins (Thera Tab) 1 tab PO 0800 [facility] Last Admin: 11/21/16 10:18 Dose: 1 tab Ondansetron HCl (Zofran Inj) 4 mg IVP Q4H PRN PRN Reason: Nausea/Vomiting Last Admin: 11/20/16 18:53 Dose: 4 mg Pantoprazole Sodium (Protonix Inj) 40 mg IVP Q12 [facility] Last Admin: 11/21/16 22:55 Dose: 40 mg Petrolatum (Desitin Maximum Strength Topical 40% Oint) 1 gm TOP Q4H PRN PRN Reason: Rash Last Admin: 10/23/16 22:39 Dose: 1 applic Potassium Chloride (K-Dur 20 Meq Er Tab) 40 meq PO DAILY [facility] Last Admin: 11/21/16 10:19 Dose: 40 meq Propranolol HCl (Inderal La) 120 mg PO DAILY [facility] Last Admin: 11/21/16 10:17 Dose: 120 mg Sucralfate (Carafate Oral Susp) 1 gm PO BID [facility] Last Admin: 11/21/16 17:32 Dose: 1 gm Valganciclovir (Valcyte) 900 mg PO DAILY [facility] Last Admin: 11/14/16 11:09 Dose: Not Given - Labs Labs: 11/21/16 11:00 11/21/16 11:00 PT 12.6 Seconds (9.9-11.8) H 11/17/16 06:00 INR 1.17 (0.93-1.08) H 11/17/16 06:00 APTT 32.9 Seconds (23.7-30.8) H 11/17/16 06:00 - Constitutional Appears: Non-toxic, No Acute Distress - Head Exam Head Exam: ATRAUMATIC, NORMOCEPHALIC - Eye Exam Eye Exam: EOMI - ENT Exam ENT Exam: Mucous Membranes Dry - Respiratory Exam Respiratory Exam: NORMAL BREATHING PATTERN. absent: Respiratory Distress - Cardiovascular Exam Cardiovascular Exam: REGULAR RHYTHM - GI/Abdominal Exam GI & Abdominal Exam: Soft, Tenderness Additional comments: Tender in the lower half of her abdomen. DEEJAY draining 40 mL of serosanguinous fluid. - Neurological Exam Neurological Exam: Alert, Awake, Oriented x3 - Psychiatric Exam Psychiatric exam: Normal Affect, Normal Mood - Skin Skin Exam: Dry, Normal Color, Warm Assessment and Plan - Assessment and Plan (Free Text) Assessment: 61 yo F with Colon CA and GI bleed. Plan: Bleeding scan on 11/21 did not show any current GI bleed. Monitor H+H, transfuse prn, AM labs pending Monitor chemistry, replete prn, AM labs pending OOB to chair Regular diet (soft) Encourage with IS Will discussed with Dr. Kaykay Reyez Lita PGY 1 <Yoan Mccracken - Last Filed: 12/02/16 23:57> Objective - Vital Signs/Intake and Output Vital Signs (last 24 hours): Temp Pulse Resp BP Pulse Ox 97.8 F 101 H 18 170/89 H 100 12/02/16 16:00 12/02/16 16:00 12/02/16 16:00 12/02/16 16:00 12/02/16 16:00 Intake and Output: 12/02/16 12/03/16 18:59 06:59 Intake Total 120 Output Total 450 600 Balance -450 -480 - Medications Medications: Current Medications Acetaminophen (Tylenol 650 Mg Supp) 650 mg RC Q4H PRN PRN Reason: Fever >100.4 F Last Admin: 11/01/16 21:18 Dose: 650 mg Al Hydrox/Mg Hydrox/Simethicone 30 ml/Diphenhydramine HCl 75 mg/Lidocaine 30 ml 0 ml PO QID [facility] Last Admin: 12/02/16 21:01 Dose: Not Given Diphenhydramine HCl (Benadryl) 50 mg IVP HS PRN PRN Reason: Insomnia Last Admin: 11/27/16 01:00 Dose: 50 mg Ergocalciferol (Drisdol 50,000 Intl Units Cap) 1 cap PO Q7D [facility] Last Admin: 11/19/16 18:04 Dose: Not Given Ferrous Sulfate (Feosol) 324 mg PO TID [facility] Last Admin: 12/02/16 18:16 Dose: Not Given Fluconazole (Diflucan) 200 mg PO DAILY [facility] PRN Reason: Protocol Stop: 12/12/16 10:01 Last Admin: 12/02/16 09:44 Dose: Not Given Home Med (Home Med) 1 unit PO Q12H PRN PRN Reason: Inflammation Last Admin: 10/18/16 11:03 Dose: 1 unit Hydralazine HCl (Apresoline) 10 mg IVP Q4H PRN PRN Reason: Systolic Blood Pressure Hydromorphone HCl (Dilaudid) 1 mg IVP Q1H PRN PRN Reason: Pain, moderate (4-7) Last Admin: 12/02/16 21:06 Dose: 1 mg Levetiracetam (Keppra 500mg Ivpb) 500 mg in 100 mls @ 400 mls/hr IV Q12 [facility] Last Admin: 12/02/16 21:06 Dose: 400 mls/hr Potassium Chloride/Dextrose (Potassium Chl 40 Meq In D5w) 1,000 mls @ 60 mls/ hr IV .[id number] [facility] Last Admin: 12/02/16 18:17 Dose: Not Given Magnesium Hydroxide (Milk Of Magnesia) 30 ml PO DAILY PRN PRN Reason: skin irritation Last Admin: 12/02/16 14:09 Dose: 30 ml Magnesium Oxide (Mag-Ox) 400 mg PO BID [facility] Last Admin: 12/02/16 18:16 Dose: Not Given Multi-Ingredient Ointment (Hydrophor Oint) 0 gm TOP Q6H PRN PRN Reason: Dry lip Multivitamins (Thera Tab) 1 tab PO 0800 [facility] Last Admin: 12/02/16 08:10 Dose: Not Given Propranolol HCl (Inderal La) 120 mg PO DAILY [facility] Last Admin: 12/02/16 09:44 Dose: Not Given Sucralfate (Carafate Oral Susp) 1 gm PO BID [facility] Last Admin: 12/02/16 18:16 Dose: Not Given - Labs Labs: 12/02/16 06:00 12/02/16 06:00 PT 12.9 Seconds (9.9-11.8) H 12/02/16 06:00 INR 1.19 (0.93-1.08) H 12/02/16 06:00 APTT 32.9 Seconds (23.7-30.8) H 12/02/16 06:00 Assessment and Plan - Assessment and Plan (Free Text) Plan: Patient was seen and examined by me. I agree with assessment and plan as per resident's note.
[2016-11-22 07:11] LABS: ALB/GLOB RATIO 0.8 (1.1-1.8); ALBUMIN 2.2 g/dL (3.0-4.8); ALT/SGPT 32 U/L (7-56); AST/SGOT 17 U/L (15-39); BLOOD UREA NITROGEN 13 mg/dL (7-21); CALCIUM 7.8 mg/dL (8.4-10.5); GFR AFRICAN-AMERICAN > 60; GFR NON-AFRICAN AMERICAN > 60; MAGNESIUM 1.4 mg/dL (1.7-2.2)
--- NOTE | 2016-11-22 07:48 | CP.PCM.PN ---
Addendum entered and electronically signed by Cassie Arcos DO 11/22/16 13:32 : Push enteroscopy tomorrow. NPO [address] with PO contrast today. Original Note: <Cassie Arcos - Last Filed: 11/22/16 13:26> Subjective - Date & Time of Evaluation Date of Evaluation: 11/22/16 Time of Evaluation: 07:48 - Subjective Subjective: PGY-[address] Hendricks Abdominal pain 02/19 localized at mass on mid-hypogastric area Pt is on increased dose of BURN NURSE Objective - Vital Signs/Intake and Output Vital Signs (last 24 hours): Temp Pulse Resp BP Pulse Ox 97.8 F 83 18 144/88 100 11/21/16 16:00 11/21/16 16:00 11/21/16 16:00 11/21/16 22:55 11/21/16 16:00 Intake and Output: 11/22/16 11/22/16 06:59 18:59 Intake Total 360 1745 Output Total 440 1370 Balance -80 375 - Medications Medications: Current Medications Acetaminophen (Tylenol 650 Mg Supp) 650 mg RC Q4H PRN PRN Reason: Fever >100.4 F Last Admin: 11/01/16 21:18 Dose: 650 mg Collagenase (Santyl) 1 gm TOP BID [facility] Last Admin: 11/21/16 23:03 Dose: 1 applic Al Hydrox/Mg Hydrox/Simethicone 30 ml/Diphenhydramine HCl 75 mg/Lidocaine 30 ml 0 ml PO Q2H PRN PRN Reason: Mouth/Throat Pain Last Admin: 11/07/16 09:00 Dose: 15 ml Diphenhydramine HCl (Benadryl) 25 mg IVP Q4H PRN PRN Reason: Allergy symptoms Last Admin: 11/21/16 00:37 Dose: 25 mg Ergocalciferol (Drisdol 50,000 Intl Units Cap) 1 cap PO Q7D [facility] Last Admin: 11/19/16 18:04 Dose: Not Given Fentanyl (Duragesic) 1 patch TD Q72H [facility] Last Admin: 11/19/16 15:25 Dose: 1 patch Ferrous Sulfate (Feosol) 324 mg PO TID [facility] Last Admin: 11/21/16 17:32 Dose: 324 mg Furosemide (Lasix) 20 mg IVP Q12 [facility] Last Admin: 11/21/16 22:55 Dose: 20 mg Home Med (Home Med) 1 unit PO Q12H PRN PRN Reason: Inflammation Last Admin: 10/18/16 11:03 Dose: 1 unit Hydromorphone HCl (Dilaudid-Hp 1 Mg/Ml Tree Trimming Line Technician) 25 mg IV PRN PRN PRN Reason: Pain, severe (8-10) Stop: 11/22/16 09:00 Daptomycin 440 mg/ Sodium (Chloride) 100 mls @ 200 mls/hr IV Q24H [facility] Stop: 11/27/16 09:01 Last Admin: 11/21/16 11:29 Dose: 200 mls/hr Hydromorphone HCl (Dilaudid-Hp 1 Mg/Ml Tree Trimming Line Technician) 25 mls @ 0.5 mls/hr IV PRN PRN; Protocol PRN Reason: BURN NURSE PER MD ORDER Last Admin: 11/21/16 22:55 Dose: 0.5 mls/hr Potassium Chloride 40 meq/ (Dextrose) 1,020 mls @ 60 mls/hr IV .Q17H [facility] Last Admin: 11/21/16 23:03 Dose: 60 mls/hr Micafungin Sodium 100 mg/ (Sodium Chloride) 100 mls @ 100 mls/hr IV DAILY [facility] PRN Reason: Protocol Stop: 11/28/16 10:01 Last Admin: 11/21/16 13:10 Dose: 100 mls/hr Multi-Ingredient Ointment (Hydrophor Oint) 0 gm TOP Q6H PRN PRN Reason: Dry lip Multivitamins (Thera Tab) 1 tab PO 0800 [facility] Last Admin: 11/21/16 10:18 Dose: 1 tab Ondansetron HCl (Zofran Inj) 4 mg IVP Q4H PRN PRN Reason: Nausea/Vomiting Last Admin: 11/20/16 18:53 Dose: 4 mg Pantoprazole Sodium (Protonix Inj) 40 mg IVP Q12 [facility] Last Admin: 11/21/16 22:55 Dose: 40 mg Petrolatum (Desitin Maximum Strength Topical 40% Oint) 1 gm TOP Q4H PRN PRN Reason: Rash Last Admin: 10/23/16 22:39 Dose: 1 applic Potassium Chloride (K-Dur 20 Meq Er Tab) 40 meq PO DAILY [facility] Last Admin: 11/21/16 10:19 Dose: 40 meq Propranolol HCl (Inderal La) 120 mg PO DAILY [facility] Last Admin: 11/21/16 10:17 Dose: 120 mg Sucralfate (Carafate Oral Susp) 1 gm PO BID [facility] Last Admin: 11/21/16 17:32 Dose: 1 gm Valganciclovir (Valcyte) 900 mg PO DAILY [facility] Last Admin: 11/14/16 11:09 Dose: Not Given - Labs Labs: 11/21/16 11:00 11/22/16 06:30 PT 12.6 Seconds (9.9-11.8) H 11/17/16 06:00 INR 1.17 (0.93-1.08) H 11/17/16 06:00 APTT 32.9 Seconds (23.7-30.8) H 11/17/16 06:00 - Constitutional Appears: Chronically Ill - Head Exam Head Exam: ATRAUMATIC, NORMAL INSPECTION, NORMOCEPHALIC - Eye Exam Eye Exam: EOMI, Normal appearance, PERRL. absent: Scleral icterus Pupil Exam: NORMAL ACCOMODATION - ENT Exam ENT Exam: Mucous Membranes Moist - Respiratory Exam Respiratory Exam: Decreased Breath Sounds (bibasilar), Clear to Ausculation Bilateral. absent: Rales, Rhonchi, Wheezes - Cardiovascular Exam Cardiovascular Exam: REGULAR RHYTHM, +S1, +S2 - GI/Abdominal Exam GI & Abdominal Exam: Soft, Hypoactive Bowel Sounds Additional comments: 1inch x1inch indurated mass appreciated hypogastric area distal to mid-line staple line, causing pain. Ostomy intact, no leakage, erythema - Neurological Exam Neurological Exam: Alert, Awake, Oriented x3 - Psychiatric Exam Psychiatric exam: Depressed, Normal Affect, Normal Mood - Skin Skin Exam: Dry, Warm Assessment and Plan - Assessment and Plan (Free Text) Plan: 61 F with PMHx stage 4 colorectal cancer S/P colectomy in 2014 with stenosis of sigmoid colon and esophageal ulceration of unclear etiology. Cancer has metastatis to sacral area, Hx Cauda Equina syndrome. She was hospitalized on for watery diarrhea with neutropenia. This hospitalization was complicated by (1) neutropenia sepsis due to bacteremia and fungemia. (2) Now 2 sites of GI bleed, upper and lower GI, s/p colectomy & Marquita, requiring transfusion. Plan: GI bleed expect to improve s/p Palliative colostomy (11/17). However, pt had 2 sites of GI bleed. upper vs lower. Pt continues to have GI bleed requring transfusion. Treatment of bacteremia and fungemia on going. Pt still expeience intense abdominal pain on BURN NURSE. Revisited goal of care on 11/12. Pt states that she is not ready for palliative or comfort care. Plan to rehab. #Stage IV metastatic colorectal cancer - hold futher specific treatment for now due to complications - s/p Port-a-cath removal (11/14) #GI bleed, Active, (upper and lower) - Pt is undergoing CT abd/pelvis with PO contrast (11/22/16) - consider transexamic acid pending GI input - dark stool in ostomy bag, Repeat bleeding scan (-) (11/21/16) - pt states that regular diet too dry; Diet change to Full liquid - EGD/colonoscopy: Stricture at sigmoid colon from external pressure, with ulceration - Many ulcers on esophagus found on EGD, pathology negative - Protonix IV BID + sucralfate - clear ensure 3/day - Dietitan: under-nutritient - Lasix, Lopressor for BP control; propranolol 1g bid to prevent upper GI bleed # thrombocytopenia - DIC workup negative #Enterococcus Bacteremia and Susy fungemia and CMV on upper GI ulcer - Daptomycin - micafungin - Valganciclovir D/C - previously on hold since there was no evidence of CMV on the biopsy of the ulcers in the esophagus - will consider restarting acyclovir #Dispo - prognosis guarded - tcu eval. - OOB to chair will not cause GI bleed. Increase pain coverage prior transfer and safety precaution. - goal is to taper BURN NURSE need #Full code #Access - L PICC - minor - ostomy s/r/d/s Dr. Hendricks <Kedar Hendricks P - Last Filed: 11/22/16 19:30> Objective - Vital Signs/Intake and Output Vital Signs (last 24 hours): Temp Pulse Resp BP Pulse Ox 97.6 F 74 20 140/90 97 11/22/16 16:00 11/22/16 16:00 11/22/16 16:00 11/22/16 16:00 11/22/16 16:00 Intake and Output: 11/22/16 11/23/16 18:59 06:59 Intake Total 1745 Output Total 1370 Balance 375 - Medications Medications: Current Medications Acetaminophen (Tylenol 650 Mg Supp) 650 mg RC Q4H PRN PRN Reason: Fever >100.4 F Last Admin: 11/01/16 21:18 Dose: 650 mg Collagenase (Santyl) 1 gm TOP BID [facility] Last Admin: 11/22/16 10:16 Dose: 1 applic Al Hydrox/Mg Hydrox/Simethicone 30 ml/Diphenhydramine HCl 75 mg/Lidocaine 30 ml 0 ml PO Q2H PRN PRN Reason: Mouth/Throat Pain Last Admin: 11/07/16 09:00 Dose: 15 ml Diphenhydramine HCl (Benadryl) 50 mg IVP HS PRN PRN Reason: Insomnia Ergocalciferol (Drisdol 50,000 Intl Units Cap) 1 cap PO Q7D [facility] Last Admin: 11/19/16 18:04 Dose: Not Given Fentanyl (Duragesic) 1 patch TD Q72H [facility] Last Admin: 11/22/16 14:30 Dose: 1 patch Ferrous Sulfate (Feosol) 324 mg PO TID [facility] Last Admin: 11/22/16 14:26 Dose: Not Given Furosemide (Lasix) 20 mg IVP Q12 [facility] Last Admin: 11/22/16 10:15 Dose: 20 mg Home Med (Home Med) 1 unit PO Q12H PRN PRN Reason: Inflammation Last Admin: 10/18/16 11:03 Dose: 1 unit Daptomycin 440 mg/ Sodium (Chloride) 100 mls @ 200 mls/hr IV Q24H [facility] Stop: 11/27/16 09:01 Last Admin: 11/22/16 11:36 Dose: 200 mls/hr Potassium Chloride 40 meq/ (Dextrose) 1,020 mls @ 60 mls/hr IV .Q17H [facility] Last Admin: 11/22/16 11:40 Dose: 60 mls/hr Micafungin Sodium 100 mg/ (Sodium Chloride) 100 mls @ 100 mls/hr IV DAILY [facility] PRN Reason: Protocol Stop: 11/28/16 10:01 Last Admin: 11/22/16 10:19 Dose: 100 mls/hr Hydromorphone HCl (Dilaudid-Hp 1 Mg/Ml Tree Trimming Line Technician) 25 mls @ 0.5 mls/hr IV PRN PRN PRN Reason: BURN NURSE PER MD ORDER Last Admin: 11/22/16 12:16 Dose: 0.5 mls/hr Magnesium Oxide (Mag-Ox) 400 mg PO BID [facility] Multi-Ingredient Ointment (Hydrophor Oint) 0 gm TOP Q6H PRN PRN Reason: Dry lip Multivitamins (Thera Tab) 1 tab PO 0800 [facility] Last Admin: 11/22/16 10:16 Dose: 1 tab Ondansetron HCl (Zofran Inj) 4 mg IVP Q4H PRN PRN Reason: Nausea/Vomiting Last Admin: 11/22/16 14:30 Dose: 4 mg Pantoprazole Sodium (Protonix Inj) 40 mg IVP Q12 [facility] Last Admin: 11/22/16 10:16 Dose: 40 mg Petrolatum (Desitin Maximum Strength Topical 40% Oint) 1 gm TOP Q4H PRN PRN Reason: Rash Last Admin: 10/23/16 22:39 Dose: 1 applic Potassium Chloride (K-Dur 20 Meq Er Tab) 40 meq PO DAILY [facility] Last Admin: 11/22/16 10:15 Dose: Not Given Propranolol HCl (Inderal La) 120 mg PO DAILY [facility] Last Admin: 11/22/16 10:14 Dose: 120 mg Sucralfate (Carafate Oral Susp) 1 gm PO BID [facility] Last Admin: 11/22/16 10:19 Dose: Not Given - Labs Labs: 11/22/16 06:30 11/22/16 06:30 PT 12.6 Seconds (9.9-11.8) H 11/17/16 06:00 INR 1.17 (0.93-1.08) H 11/17/16 06:00 APTT 32.9 Seconds (23.7-30.8) H 11/17/16 06:00 Attending/Attestation - Attestation I have personally seen and examined this patient.: Yes I have fully participated in the care of the patient.: Yes I have reviewed all pertinent clinical information, including history, physical exam and plan: Yes
[2016-11-22 08:17] LABS: EOS # 0.1 (0.0-0.7); EOS % 1.7 % (1.5-5.0); GRAN # 3.69 (1.4-6.5); HEMOGLOBIN 9.1 gm/dL (12.0-16.0); LYMPH # 0.5 (1.2-3.4); LYMPH % 11.6 % (22.0-35.0); MEAN CELL VOLUME 95.6 fL (80.0-105.0); MEAN CORPUSCULAR HEMOGLOBIN 33.2 pg (25.0-35.0); MEAN CORPUSCULAR HGB CONC 34.7 g/dl (31.0-37.0); MEAN PLATELET VOLUME 11.8 fl (7.0-11.0); MONO # 0.4 (0.1-0.6); MONO % 7.7 % (1.0-6.0); PLATELET COUNT 107 10^3/uL (120.0-450.0); RBC 2.74 10^6/uL (3.5-6.1); RED CELL DISTRIBUTION WIDTH 19.5 % (11.5-14.5); WHITE BLOOD COUNT 4.7 10^3/ul (4.5-11.0)
[2016-11-22] MEDS ORDERED: Barium Sulfate Susp 2.1% w/v, 2.0% w/w 450 mL Bottle PO ONE (08:20)
[2016-11-22] MEDS: Propranolol 60 mg ER Cap PO SCH (10:14)
[2016-11-22] MEDS: Potassium Chloride 20 mEq ER Tab PO SCH (10:15)
[2016-11-22] MEDS: Multivitamin Therapeutic Tab PO SCH (10:16)
[2016-11-22] MEDS: Collagenase 250 Units/gm Ointment(30 gm) TOP SCH ×2 (10:16→18:20)
[2016-11-22] MEDS: Micafungin 100 MG in Sodium Chloride 0.9% 100 ML IV SCH (10:19)
[2016-11-22] MEDS: Sucralfate 1 gm/10 ml Oral Susp UD PO SCH ×2 (10:19→19:31)
--- NOTE | 2016-11-22 10:56 | CP.PCM.PN ---
Subjective - Date & Time of Evaluation Date of Evaluation: 11/22/16 Time of Evaluation: 10:45 - Subjective Subjective: Seen and examined at bedside trying to drink oral contrast for ct scan, family at bedside. Still has meelna colsotomy and c/o abdominal cramping. No SOB or chest pain. Objective - Vital Signs/Intake and Output Vital Signs (last 24 hours): Temp Pulse Resp BP Pulse Ox 98.2 F 69 20 142/92 H 95 11/22/16 08:31 11/22/16 10:14 11/22/16 08:31 11/22/16 10:15 11/22/16 08:31 Intake and Output: 11/22/16 11/22/16 06:59 18:59 Intake Total 360 1745 Output Total 440 1370 Balance -80 375 - Medications Medications: Current Medications Acetaminophen (Tylenol 650 Mg Supp) 650 mg RC Q4H PRN PRN Reason: Fever >100.4 F Last Admin: 11/01/16 21:18 Dose: 650 mg Collagenase (Santyl) 1 gm TOP BID [facility] Last Admin: 11/22/16 10:16 Dose: 1 applic Al Hydrox/Mg Hydrox/Simethicone 30 ml/Diphenhydramine HCl 75 mg/Lidocaine 30 ml 0 ml PO Q2H PRN PRN Reason: Mouth/Throat Pain Last Admin: 11/07/16 09:00 Dose: 15 ml Diphenhydramine HCl (Benadryl) 25 mg IVP Q4H PRN PRN Reason: Allergy symptoms Last Admin: 11/21/16 00:37 Dose: 25 mg Ergocalciferol (Drisdol 50,000 Intl Units Cap) 1 cap PO Q7D [facility] Last Admin: 11/19/16 18:04 Dose: Not Given Fentanyl (Duragesic) 1 patch TD Q72H [facility] Last Admin: 11/19/16 15:25 Dose: 1 patch Ferrous Sulfate (Feosol) 324 mg PO TID [facility] Last Admin: 11/21/16 17:32 Dose: 324 mg Furosemide (Lasix) 20 mg IVP Q12 [facility] Last Admin: 11/22/16 10:15 Dose: 20 mg Home Med (Home Med) 1 unit PO Q12H PRN PRN Reason: Inflammation Last Admin: 10/18/16 11:03 Dose: 1 unit Daptomycin 440 mg/ Sodium (Chloride) 100 mls @ 200 mls/hr IV Q24H [facility] Stop: 11/27/16 09:01 Last Admin: 11/21/16 11:29 Dose: 200 mls/hr Hydromorphone HCl (Dilaudid-Hp 1 Mg/Ml Dealer Compliance Representative) 25 mls @ 0.5 mls/hr IV PRN PRN; Protocol PRN Reason: GREENS KEEPER PER MD ORDER Last Admin: 11/21/16 22:55 Dose: 0.5 mls/hr Potassium Chloride 40 meq/ (Dextrose) 1,020 mls @ 60 mls/hr IV .Q17H [facility] Last Admin: 11/21/16 23:03 Dose: 60 mls/hr Micafungin Sodium 100 mg/ (Sodium Chloride) 100 mls @ 100 mls/hr IV DAILY [facility] PRN Reason: Protocol Stop: 11/28/16 10:01 Last Admin: 11/22/16 10:19 Dose: 100 mls/hr Magnesium Sulfate 1 gm/ Sodium (Chloride) 102 mls @ 102 mls/hr IV ONCE ONE Stop: 11/22/16 11:19 Multi-Ingredient Ointment (Hydrophor Oint) 0 gm TOP Q6H PRN PRN Reason: Dry lip Multivitamins (Thera Tab) 1 tab PO 0800 [facility] Last Admin: 11/22/16 10:16 Dose: 1 tab Ondansetron HCl (Zofran Inj) 4 mg IVP Q4H PRN PRN Reason: Nausea/Vomiting Last Admin: 11/20/16 18:53 Dose: 4 mg Pantoprazole Sodium (Protonix Inj) 40 mg IVP Q12 [facility] Last Admin: 11/22/16 10:16 Dose: 40 mg Petrolatum (Desitin Maximum Strength Topical 40% Oint) 1 gm TOP Q4H PRN PRN Reason: Rash Last Admin: 10/23/16 22:39 Dose: 1 applic Potassium Chloride (K-Dur 20 Meq Er Tab) 40 meq PO DAILY [facility] Last Admin: 11/22/16 10:15 Dose: Not Given Propranolol HCl (Inderal La) 120 mg PO DAILY [facility] Last Admin: 11/22/16 10:14 Dose: 120 mg Sucralfate (Carafate Oral Susp) 1 gm PO BID [facility] Last Admin: 07/13/17 10:19 Dose: Not Given Valganciclovir (Valcyte) 900 mg PO DAILY [facility] Last Admin: 11/22/16 10:16 Dose: Not Given - Labs Labs: 11/22/16 06:30 11/22/16 06:30 PT 12.6 Seconds (9.9-11.8) H 11/17/16 06:00 INR 1.17 (0.93-1.08) H 11/17/16 06:00 APTT 32.9 Seconds (23.7-30.8) H 11/17/16 06:00 - Constitutional Appears: Chronically Ill - Head Exam Head Exam: NORMOCEPHALIC - Eye Exam Eye Exam: Normal appearance. absent: Scleral icterus - ENT Exam ENT Exam: Mucous Membranes Moist - Neck Exam Neck Exam: Normal Inspection - Respiratory Exam Respiratory Exam: NORMAL BREATHING PATTERN. absent: Respiratory Distress - Cardiovascular Exam Cardiovascular Exam: +S1, +S2 - GI/Abdominal Exam GI & Abdominal Exam: Distended, Soft, Tenderness, Normal Bowel Sounds. absent: Guarding, Rebound Additional comments: (+) colostomy with liquid melena, incision dry and intact - Extremities Exam Extremities Exam: Pedal Edema. 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 Anemia, status post multiple blood transfusions Thrombocytopenia S/P flex sigmoidoscopy,still showed the stricture in the sigmoid colon Acute renal failure Esophagitis with ulcerations, BX negative for CMV Bacteremia, Fungemia with Susy Decubitus ulcers PLAN: change diet to clears continue PPI on Carafate on [employer] pump on IVF DVT prophylasxix, TEDS on monitor h/h, transfuse as needed on IV antibiotics as per ID as per oncology, surgery Plan is for ct scan with oral contrast, if cant tolerated NGtube for admistration and Push enteroscopy tomorrow, discuss with patient, mother at bedside and surgical team, who all agree. NPO 12 midnight Seen and case discussed with Dr. Null
[2016-11-22] MEDS ORDERED: HYDROmorphone 1 mg/ml PCA 25 ML IV PRN (11:32)
--- NOTE | 2016-11-22 12:23 | CP.PCM.PN ---
Subjective - Date & Time of Evaluation Date of Evaluation: 11/13/16 - Subjective Subjective: Patient is seen with the sister who claims that the PICC line was not changed. The operative notes says it was. In any case, the port a catheter was removed, I believe the PICC line was changed. This was done for fungemia. There was some recurrent diarrhea and I think some heme in the stool. Objective - Vital Signs/Intake and Output Vital Signs (last 24 hours): 11/13/16: Pulse is down to 93 from 99. Temperature is 98. Temp Pulse Resp BP Pulse Ox 98.2 F 69 20 142/92 H 95 11/22/16 08:31 11/22/16 10:14 11/22/16 08:31 11/22/16 10:15 11/22/16 08:31 Intake and Output: 11/22/16 11/22/16 06:59 18:59 Intake Total 360 1745 Output Total 440 1370 Balance -80 375 - Medications Medications: Current Medications Acetaminophen (Tylenol 650 Mg Supp) 650 mg RC Q4H PRN PRN Reason: Fever >100.4 F Last Admin: 11/01/16 21:18 Dose: 650 mg Collagenase (Santyl) 1 gm TOP BID [facility] Last Admin: 11/22/16 10:16 Dose: 1 applic Al Hydrox/Mg Hydrox/Simethicone 30 ml/Diphenhydramine HCl 75 mg/Lidocaine 30 ml 0 ml PO Q2H PRN PRN Reason: Mouth/Throat Pain Last Admin: 11/07/16 09:00 Dose: 15 ml Diphenhydramine HCl (Benadryl) 25 mg IVP Q4H PRN PRN Reason: Allergy symptoms Last Admin: 11/21/16 00:37 Dose: 25 mg Ergocalciferol (Drisdol 50,000 Intl Units Cap) 1 cap PO Q7D [facility] Last Admin: 11/19/16 18:04 Dose: Not Given Fentanyl (Duragesic) 1 patch TD Q72H [facility] Last Admin: 11/19/16 15:25 Dose: 1 patch Ferrous Sulfate (Feosol) 324 mg PO TID [facility] Last Admin: 11/22/16 11:10 Dose: Not Given Furosemide (Lasix) 20 mg IVP Q12 [facility] Last Admin: 11/22/16 10:15 Dose: 20 mg Home Med (Home Med) 1 unit PO Q12H PRN PRN Reason: Inflammation Last Admin: 10/18/16 11:03 Dose: 1 unit Daptomycin 440 mg/ Sodium (Chloride) 100 mls @ 200 mls/hr IV Q24H [facility] Stop: 11/27/16 09:01 Last Admin: 11/22/16 11:36 Dose: 200 mls/hr Potassium Chloride 40 meq/ (Dextrose) 1,020 mls @ 60 mls/hr IV .Q17H [facility] Last Admin: 11/22/16 11:40 Dose: 60 mls/hr Micafungin Sodium 100 mg/ (Sodium Chloride) 100 mls @ 100 mls/hr IV DAILY [facility] PRN Reason: Protocol Stop: 11/28/16 10:01 Last Admin: 11/22/16 10:19 Dose: 100 mls/hr Hydromorphone HCl (Dilaudid-Hp 1 Mg/Ml [employer] Light [employer]) 25 mls @ 0.5 mls/hr IV PRN PRN PRN Reason: COMMERCIAL ESTIMATOR PER MD ORDER Multi-Ingredient Ointment (Hydrophor Oint) 0 gm TOP Q6H PRN PRN Reason: Dry lip Multivitamins (Thera Tab) 1 tab PO 0800 [facility] Last Admin: 11/22/16 10:16 Dose: 1 tab Ondansetron HCl (Zofran Inj) 4 mg IVP Q4H PRN PRN Reason: Nausea/Vomiting Last Admin: 11/20/16 18:53 Dose: 4 mg Pantoprazole Sodium (Protonix Inj) 40 mg IVP Q12 [facility] Last Admin: 11/22/16 10:16 Dose: 40 mg Petrolatum (Desitin Maximum Strength Topical 40% Oint) 1 gm TOP Q4H PRN PRN Reason: Rash Last Admin: 10/23/16 22:39 Dose: 1 applic Potassium Chloride (K-Dur 20 Meq Er Tab) 40 meq PO DAILY [facility] Last Admin: 11/22/16 10:15 Dose: Not Given Propranolol HCl (Inderal La) 120 mg PO DAILY [facility] Last Admin: 11/22/16 10:14 Dose: 120 mg Sucralfate (Carafate Oral Susp) 1 gm PO BID [facility] Last Admin: 11/22/16 10:19 Dose: Not Given - Labs Labs: 11/13/16: Hemoglobin is 9.4 having received a total of 17 units of blood: 4 FFP and about 5 platelets. White count is normal at 5.4. 11/22/16 06:30 11/22/16 06:30 PT 12.6 Seconds (9.9-11.8) H 11/17/16 06:00 INR 1.17 (0.93-1.08) H 11/17/16 06:00 APTT 32.9 Seconds (23.7-30.8) H 11/17/16 06:00 - Constitutional Appears: Other (Sleeping. Family request that we not wake her up to examine her. I will follow up in the morning. ) Assessment and Plan (1) Fungemia Status: Acute - Assessment and Plan (Free Text) Plan: Will follow up in the morning as patient is sleeping and family ask that I not wake her.
--- NOTE | 2016-11-22 15:34 | CT ---
PROCEDURE: CT Abdomen and Pelvis without intravenous contrast HISTORY: s/presection/GIB/colon cancer/no iv or gastrograf COMPARISON: 10/25/2016 TECHNIQUE: Without contrast.. Contrast Dose: Radiation dose: Total exam DLP = 820 mGy-cm. This CT exam was performed using one or more of the following dose reduction techniques: Automated exposure control, adjustment of the mA and/or kV according to patient size, and/or use of iterative reconstruction technique. FINDINGS: LOWER THORAX: There is a small amount of free air beneath the right hemidiaphragm. This is presumably due to recent surgery. LIVER: Unremarkable. No gross lesion or ductal dilatation. GALLBLADDER AND BILE DUCTS: There is dense sludge in the gallbladder PANCREAS: Unremarkable. No gross lesion or ductal dilatation. SPLEEN: Unremarkable. ADRENALS: Unremarkable. No mass. KIDNEYS AND URETERS: Unremarkable. No hydronephrosis. No solid mass. VASCULATURE: Unremarkable. No aortic aneurysm. BOWEL: Midline surgical clips are seen as well as a new left lower quadrant ostomy. A surgical drain is seen in the pelvis. Mildly dilated loops of small bowel are seen APPENDIX: Unremarkable. Normal appendix. PERITONEUM: Unremarkable. No free fluid. No free air. LYMPH NODES: Unremarkable. No enlarged lymph nodes. BLADDER: Unremarkable. REPRODUCTIVE: Unremarkable. BONES: There is a lytic lesion in the right side of the sacrum OTHER FINDINGS: There is diffuse subcutaneous edema. IMPRESSION: Recent postoperative changes with left lower quadrant ostomy. Small amount of free air. Surgical drain in place in the pelvis. Mildly dilated loops of small bowel
[2016-11-22] MEDS ORDERED: DiphenhydrAMINE 50 mg/ml Inj IVP PRN (16:39)
[2016-11-22] MEDS: Magnesium Oxide 400 mg Tab UD PO SCH (19:31)
[2016-11-23] MEDS: DiphenhydrAMINE 50 mg/ml Inj IVP PRN (02:36)
[2016-11-23 08:10] LABS: ALB/GLOB RATIO 0.7 (1.1-1.8); ALBUMIN 1.8 g/dL (3.0-4.8); ALT/SGPT 21 U/L (7-56); AST/SGOT 12 U/L (15-39); BLOOD UREA NITROGEN 17 mg/dL (7-21); CALCIUM 7.5 mg/dL (8.4-10.5); GFR AFRICAN-AMERICAN > 60; GFR NON-AFRICAN AMERICAN > 60; MAGNESIUM 1.4 mg/dL (1.7-2.2)
[2016-11-23] MEDS ORDERED: Magnesium Sulfate 2 GM in Sodium Chloride 0.9% 100 ML IVPB ONE ×2 (08:28→08:29)
[2016-11-23 08:31] LABS: EOS # 0.1 (0.0-0.7); EOS % 0.9 % (1.5-5.0); GRAN # 3.96 (1.4-6.5); GRAN % 74.2 % (50.0-68.0); LYMPH # 0.8 (1.2-3.4); LYMPH % 15.2 % (22.0-35.0); MEAN CELL VOLUME 96.5 fL (80.0-105.0); MEAN CORPUSCULAR HEMOGLOBIN 32.7 pg (25.0-35.0); MEAN CORPUSCULAR HGB CONC 33.9 g/dl (31.0-37.0); MEAN PLATELET VOLUME 12.1 fl (7.0-11.0); MONO # 0.5 (0.1-0.6); MONO % 9.7 % (1.0-6.0); PLATELET COUNT 135 10^3/uL (120.0-450.0); RBC 2.26 10^6/uL (3.5-6.1); RED CELL DISTRIBUTION WIDTH 19.1 % (11.5-14.5); WHITE BLOOD COUNT 5.3 10^3/ul (4.5-11.0)
[2016-11-23] MEDS ORDERED: Albumin Human 25% (12.5 gm/50 ml) IV ONE ×2 (08:31→09:30)
[2016-11-23 08:32] LABS: HEMOGLOBIN 7.4 gm/dL (12.0-16.0)
--- NOTE | 2016-11-23 08:46 | CP.PCM.PN ---
<Rolf Larios - Last Filed: 11/23/16 09:54> Subjective - Date & Time of Evaluation Date of Evaluation: 11/23/16 Time of Evaluation: 08:15 - Subjective Subjective: Rapid Response Note: DONATIONS ATTENDANT was called on patient for altered mental status. As per nursing, the patient was only responsive to painful stimuli. Patient seen and examined at bedside. She is awake, alert, responds to verbal stimuli, and intermittently answers questions appropriately. She is moving bilateral upper extremities past midline. Denies fever, chills, chest pain, SOB. Vitals: HR 132, BP 72/42, RR 14, SpO2- 100% on NC, Blood Glucose 156 Constitutional: NAD Heart: +S1 +S2, tachycardic Lungs: CTA bilaterally Abdomen: slightly distended, Neuro: patient is awake, alert, responds to verbal stimuli, does not follow commands Assessment and Plan: 1. AMS; Hypotension - likely 2/2 septic shock due to fungemia and bacteremia vs hemorrhage shock 2/ 2 possible GI bleed - NUTRITION SERVICES AIDE pump disconnected - 1 liter bolus of NS, follow up BP 40/20 - Dopamine Drip as per hospitalist, nurse is notified - PT/INR and PTT stat - 2 units of RBCs as per primary - 1 unit FFP as per primary - Tylenol as per primary - Solu cortef as per primary - portable CXR stat as per surgery - VBG stat as per surgery - critical care consult - primary made aware - family made aware Objective - Vital Signs/Intake and Output Vital Signs (last 24 hours): Temp Pulse Resp BP Pulse Ox 97.6 F 74 20 140/90 97 11/22/16 16:00 11/22/16 16:00 11/22/16 16:00 11/22/16 22:47 11/22/16 16:00 Intake and Output: 11/23/16 11/23/16 06:59 18:59 Intake Total 480 Output Total 3080 Balance -2600 - Medications Medications: Current Medications Acetaminophen (Tylenol 650 Mg Supp) 650 mg RC Q4H PRN PRN Reason: Fever >100.4 F Last Admin: 11/01/16 21:18 Dose: 650 mg Albumin Human (Albumin Human 25% (12.5 Gm/50 Ml)) 12.5 gm IV ONCE ONE Stop: 11/23/16 09:31 Collagenase (Santyl) 1 gm TOP BID [facility] Last Admin: 11/22/16 18:20 Dose: 1 applic Al Hydrox/Mg Hydrox/Simethicone 30 ml/Diphenhydramine HCl 75 mg/Lidocaine 30 ml 0 ml PO Q2H PRN PRN Reason: Mouth/Throat Pain Last Admin: 11/07/16 09:00 Dose: 15 ml Diphenhydramine HCl (Benadryl) 50 mg IVP HS PRN PRN Reason: Insomnia Last Admin: 11/23/16 02:36 Dose: 50 mg Ergocalciferol (Drisdol 50,000 Intl Units Cap) 1 cap PO Q7D [facility] Last Admin: 11/19/16 18:04 Dose: Not Given Fentanyl (Duragesic) 1 patch TD Q72H [facility] Last Admin: 11/22/16 14:30 Dose: 1 patch Ferrous Sulfate (Feosol) 324 mg PO TID [facility] Last Admin: 11/22/16 19:31 Dose: 324 mg Furosemide (Lasix) 20 mg IVP Q12 [facility] Last Admin: 11/22/16 22:47 Dose: 20 mg Home Med (Home Med) 1 unit PO Q12H PRN PRN Reason: Inflammation Last Admin: 10/18/16 11:03 Dose: 1 unit Daptomycin 440 mg/ Sodium (Chloride) 100 mls @ 200 mls/hr IV Q24H [facility] Stop: 11/27/16 09:01 Last Admin: 11/22/16 11:36 Dose: 200 mls/hr Potassium Chloride 40 meq/ (Dextrose) 1,020 mls @ 60 mls/hr IV .Q17H [facility] Last Admin: 11/22/16 11:40 Dose: 60 mls/hr Micafungin Sodium 100 mg/ (Sodium Chloride) 100 mls @ 100 mls/hr IV DAILY [facility] PRN Reason: Protocol Stop: 11/28/16 10:01 Last Admin: 11/22/16 10:19 Dose: 100 mls/hr Hydromorphone HCl (Dilaudid-Hp 1 Mg/Ml Second Chef) 25 mls @ 0.5 mls/hr IV PRN PRN PRN Reason: NUTRITION SERVICES AIDE PER MD ORDER Last Admin: 11/22/16 12:16 Dose: 0.5 mls/hr Magnesium Sulfate 2 gm/ Sodium (Chloride) 104 mls @ 102 mls/hr IVPB ONCE ONE Stop: 11/23/16 09:29 Magnesium Oxide (Mag-Ox) 400 mg PO BID [facility] Last Admin: 11/22/16 19:31 Dose: 400 mg Multi-Ingredient Ointment (Hydrophor Oint) 0 gm TOP Q6H PRN PRN Reason: Dry lip Multivitamins (Thera Tab) 1 tab PO 0800 [facility] Last Admin: 11/22/16 10:16 Dose: 1 tab Ondansetron HCl (Zofran Inj) 4 mg IVP Q4H PRN PRN Reason: Nausea/Vomiting Last Admin: 11/22/16 14:30 Dose: 4 mg Pantoprazole Sodium (Protonix Inj) 40 mg IVP Q12 [facility] Last Admin: 11/22/16 22:47 Dose: 40 mg Petrolatum (Desitin Maximum Strength Topical 40% Oint) 1 gm TOP Q4H PRN PRN Reason: Rash Last Admin: 10/23/16 22:39 Dose: 1 applic Potassium Chloride (K-Dur 20 Meq Er Tab) 40 meq PO DAILY [facility] Last Admin: 11/22/16 10:15 Dose: Not Given Propranolol HCl (Inderal La) 120 mg PO DAILY [facility] Sucralfate (Carafate Oral Susp) 1 gm PO BID [facility] Last Admin: 11/22/16 19:31 Dose: 1 gm - Labs Labs: 11/23/16 07:00 11/23/16 07:00 PT 12.6 Seconds (9.9-11.8) H 11/17/16 06:00 INR 1.17 (0.93-1.08) H 11/17/16 06:00 APTT 32.9 Seconds (23.7-30.8) H 11/17/16 06:00 <Jason Centeno N - Last Filed: 11/23/16 18:07> Subjective - Subjective Subjective: responded to DONATIONS ATTENDANT, pt with hx of adenoca of colon ,s/p sugry 1 wk bakck ang had gi bleed with multiple prbc,s transfusion , s/ chemo .on NUTRITION SERVICES AIDE pump sitting in bed dropped BP to 72/46 hr 132 and pulse ox 100% .and had altred mental status for short period of time. pt was pale and c/oi abdominal pain .pt was on monitor sinus tachy cardia, normal breathing pattren pupils 4mm bilaterally.pt had mg of 1.4 and Hb of 7.2 a drop of 2 gm from yesterday. NUTRITION SERVICES AIDE pump was stopped pt was given ns bolous, mg 2 gm given and albumin stat iv was given . prb and ffp was reqeusted from lab.pt improved initially with BP but again BP DECREASED and became obtunded. ICU CONSULT WITH dR BRODERICK WAS CALLED . PMD was informed. Objective - Vital Signs/Intake and Output Vital Signs (last 24 hours): Temp Pulse Resp BP Pulse Ox 98.4 F 94 H 20 100/64 98 11/23/16 16:51 11/23/16 16:51 11/23/16 16:51 11/23/16 16:51 11/23/16 16:00 Intake and Output: 11/23/16 11/23/16 06:59 18:59 Intake Total 480 375 Output Total 3080 Balance -2600 375 - Medications Medications: Current Medications Acetaminophen (Tylenol 650 Mg Supp) 650 mg RC Q4H PRN PRN Reason: Fever >100.4 F Last Admin: 11/01/16 21:18 Dose: 650 mg Collagenase (Santyl) 1 gm TOP BID [facility] Last Admin: 11/22/16 18:20 Dose: 1 applic Al Hydrox/Mg Hydrox/Simethicone 30 ml/Diphenhydramine HCl 75 mg/Lidocaine 30 ml 0 ml PO Q2H PRN PRN Reason: Mouth/Throat Pain Last Admin: 11/07/16 09:00 Dose: 15 ml Diphenhydramine HCl (Benadryl) 50 mg IVP HS PRN PRN Reason: Insomnia Last Admin: 11/23/16 02:36 Dose: 50 mg Ergocalciferol (Drisdol 50,000 Intl Units Cap) 1 cap PO Q7D [facility] Last Admin: 11/19/16 18:04 Dose: Not Given Fentanyl (Duragesic) 1 patch TD Q72H [facility] Last Admin: 11/22/16 14:30 Dose: 1 patch Ferrous Sulfate (Feosol) 324 mg PO TID [facility] Last Admin: 11/23/16 16:15 Dose: Not Given Furosemide (Lasix) 20 mg IVP Q12 [facility] Home Med (Home Med) 1 unit PO Q12H PRN PRN Reason: Inflammation Last Admin: 10/18/16 11:03 Dose: 1 unit Hydromorphone HCl (Dilaudid) 1 mg IVP Q1H PRN PRN Reason: Pain, severe (8-10) Daptomycin 440 mg/ Sodium (Chloride) 100 mls @ 200 mls/hr IV Q24H [facility] Stop: 11/27/16 09:01 Last Admin: 11/22/16 11:36 Dose: 200 mls/hr Micafungin Sodium 100 mg/ (Sodium Chloride) 100 mls @ 100 mls/hr IV DAILY [facility] PRN Reason: Protocol Stop: 11/28/16 10:01 Last Admin: 11/22/16 10:19 Dose: 100 mls/hr Potassium Chloride 40 meq/ (Dextrose/Sodium Chloride) 1,020 mls @ 80 mls/hr IV .[id number] [facility] Magnesium Oxide (Mag-Ox) 400 mg PO BID [facility] Last Admin: 11/23/16 16:17 Dose: Not Given Multi-Ingredient Ointment (Hydrophor Oint) 0 gm TOP Q6H PRN PRN Reason: Dry lip Multivitamins (Thera Tab) 1 tab PO 0800 [facility] Last Admin: 11/22/16 10:16 Dose: 1 tab Ondansetron HCl (Zofran Inj) 4 mg IVP Q4H PRN PRN Reason: Nausea/Vomiting Last Admin: 11/22/16 14:30 Dose: 4 mg Pantoprazole Sodium (Protonix Inj) 40 mg IVP Q12 [facility] Last Admin: 11/22/16 22:47 Dose: 40 mg Petrolatum (Desitin Maximum Strength Topical 40% Oint) 1 gm TOP Q4H PRN PRN Reason: Rash Last Admin: 10/23/16 22:39 Dose: 1 applic Potassium Chloride (K-Dur 20 Meq Er Tab) 40 meq PO DAILY [facility] Last Admin: 11/23/16 16:17 Dose: Not Given Propranolol HCl (Inderal La) 120 mg PO DAILY [facility] Last Admin: 11/23/16 16:16 Dose: Not Given Sucralfate (Carafate Oral Susp) 1 gm PO BID [facility] Last Admin: 11/23/16 16:14 Dose: Not Given - Labs Labs: 11/23/16 07:00 11/23/16 07:00 PT 14.9 Seconds (9.9-11.8) H 11/23/16 09:30 INR 1.38 (0.93-1.08) H 11/23/16 09:30 APTT 26.5 Seconds (23.7-30.8) 11/23/16 09:30
--- NOTE | 2016-11-23 09:17 | PN ---
DATE: 11/22/2016 SUBJECTIVE: The patient is seen earlier this morning in room 362. She is doing better, no fevers. She is weak. She is overall chronically ill. PHYSICAL EXAMINATION VITAL SIGNS: Temperature 98, blood pressure is 140/90, respiratory rate 20, heart rate of 60. HEENT: Unremarkable. NECK: Supple. CARDIOPULMONARY: Normal S1 and S2. LUNGS: Decreased breath sounds. ABDOMEN: Soft. LABORATORY DATA: Examination reveals a white count of 4.7, hemoglobin of 9, platelets of 107. Chemistries are noted, BUN of 13 and creatinine of 0.5. Urinalysis is noted and serology is noted. Microbiology reveals the patient's repeat blood cultures are negative . MEDICATIONS: Review of orders reveals the patient is on daptomycin and the patient is also on micafungin. ASSESSMENT AND PLAN: This is a 61-year-old with sepsis with Susy albicans fungemia probably from a Port-A-Cath and methicillin-resistant Staphylococcus epidermidis, coagulase-negative Staphylococcus in the blood and on daptomycin and Mycamine. Overall prognosis quite poor. We will follow closely with you. Lang Akhtar MD
--- NOTE | 2016-11-23 09:21 | PN ---
DATE: 11/22/2016 REASON FOR CONSULTATION: Followup cardiac evaluation, tachycardia, anemia status post colostomy. BRIEF CLINICAL HISTORY: This is a 61-year-old female with a past medical history significant for colon cancer status post colostomy done, postop anemia, complaining of pain and going to have a CAT scan. Denies any chest pain. PHYSICAL EXAMINATION: VITAL SIGNS: Temperature afebrile, heart rate 69, blood pressure 142/92. HEENT: PERRLA. Extraocular muscles are intact. NECK: Supple. No carotids or thyromegaly. CHEST: Clear to auscultation. HEART: S1, S2 regular. ABDOMEN: Soft. EXTREMITIES: Clubbing or cyanosis negative. LABORATORY DATA: Blood workup as follows; WBC 4.7, hemoglobin 9, hematocrit 36.2, platelet count 107. Chemistry shows sodium 142, potassium 3.6, chloride of 105,CO2-25,, anion gap of 10, BUN 13 and creatinine 0.5. Total protein 5, albumin 2.2 and albumin globulin ratio 0.8. IMPRESSION: Anemia, status post packed RBC transfusion and fresh frozen plasma transfusion, status post colostomy, status post exploratory laparotomy, lysis of adhesions , and colostomy, carcinoma of colon, sinus tachycardia improved. Protein-calorie malnutrition moderate to severe, which was not present on admission. RECOMMENDATION: Give nutrition support as tolerated. Continue Inderal or propranolol 120 mg daily. The patient is going for a CAT scan to rule out any obstruction. We will follow with you. Her CV status is stable. We will supplement potassium for low potassium. Thank you in taking care of the patient Arthur Rehman. Sherrell Busby MD [facility]
[2016-11-23] MEDS ORDERED: DOPamine 400mg/250ml D5W 400 MG/250 ML BAG IV PRN (09:36)
[2016-11-23] MEDS ORDERED: Albumin Human 5% (12.5 gm/250 ml) IV ONE (09:44)
[2016-11-23 10:05] LABS: INR 1.38 (0.93-1.08); PARTIAL THROMBOPLASTIN TIME 26.5 Seconds (23.7-30.8); PROTHROMBIN TIME 14.9 Seconds (9.9-11.8)
--- NOTE | 2016-11-23 10:24 | CP.PCM.PN ---
<Dereje London - Last Filed: 11/23/16 11:15> Subjective - Date & Time of Evaluation Date of Evaluation: 11/23/16 Time of Evaluation: 10:24 - Subjective Subjective: General Surgery Rapid Response called on patient this morning. RR was called by nurse due to altered mental status. Patient was in and out of consciousness. She was unable to answer questions fully. Blood pressure had dropped to low 60s systolic. Objective - Vital Signs/Intake and Output Vital Signs (last 24 hours): Temp Pulse Resp BP Pulse Ox 97.8 F 103 H 18 124/83 99 11/23/16 08:55 11/23/16 08:55 11/23/16 08:55 11/23/16 08:55 11/23/16 08:55 Intake and Output: 11/23/16 11/23/16 06:59 18:59 Intake Total 480 Output Total 3080 Balance -2600 - Medications Medications: Current Medications Acetaminophen (Tylenol 650 Mg Supp) 650 mg RC Q4H PRN PRN Reason: Fever >100.4 F Last Admin: 11/01/16 21:18 Dose: 650 mg Collagenase (Santyl) 1 gm TOP BID REPLACED BY [facility] Last Admin: 11/22/16 18:20 Dose: 1 applic Al Hydrox/Mg Hydrox/Simethicone 30 ml/Diphenhydramine HCl 75 mg/Lidocaine 30 ml 0 ml PO Q2H PRN PRN Reason: Mouth/Throat Pain Last Admin: 11/07/16 09:00 Dose: 15 ml Diphenhydramine HCl (Benadryl) 50 mg IVP HS PRN PRN Reason: Insomnia Last Admin: 11/23/16 02:36 Dose: 50 mg Ergocalciferol (Drisdol 50,000 Intl Units Cap) 1 cap PO Q7D REPLACED BY [facility] Last Admin: 11/19/16 18:04 Dose: Not Given Fentanyl (Duragesic) 1 patch TD Q72H REPLACED BY [facility] Last Admin: 11/22/16 14:30 Dose: 1 patch Ferrous Sulfate (Feosol) 324 mg PO TID REPLACED BY [facility] Last Admin: 11/22/16 19:31 Dose: 324 mg Furosemide (Lasix) 20 mg IVP Q12 REPLACED BY [facility] Last Admin: 11/22/16 22:47 Dose: 20 mg Home Med (Home Med) 1 unit PO Q12H PRN PRN Reason: Inflammation Last Admin: 10/18/16 11:03 Dose: 1 unit Daptomycin 440 mg/ Sodium (Chloride) 100 mls @ 200 mls/hr IV Q24H REPLACED BY [facility] Stop: 11/27/16 09:01 Last Admin: 11/22/16 11:36 Dose: 200 mls/hr Potassium Chloride 40 meq/ (Dextrose) 1,020 mls @ 60 mls/hr IV .Q17H REPLACED BY [facility] Last Admin: 11/22/16 11:40 Dose: 60 mls/hr Micafungin Sodium 100 mg/ (Sodium Chloride) 100 mls @ 100 mls/hr IV DAILY REPLACED BY [facility] PRN Reason: Protocol Stop: 11/28/16 10:01 Last Admin: 11/22/16 10:19 Dose: 100 mls/hr Hydromorphone HCl (Dilaudid-Hp 1 Mg/Ml Viticulture Teacher) 25 mls @ 0.5 mls/hr IV PRN PRN PRN Reason: PLASTERER FOREMAN PER MD ORDER Last Admin: 11/22/16 12:16 Dose: 0.5 mls/hr Dopamine HCl/Dextrose (Dopamine 400mg/250ml D5w) 400 mg in 250 mls @ 13.183 mls /hr IV .[id number] PRN; Protocol; 5 MCG/KG/MIN PRN Reason: TITRATE to SBP > 90 Magnesium Oxide (Mag-Ox) 400 mg PO BID REPLACED BY [facility] Last Admin: 11/22/16 19:31 Dose: 400 mg Multi-Ingredient Ointment (Hydrophor Oint) 0 gm TOP Q6H PRN PRN Reason: Dry lip Multivitamins (Thera Tab) 1 tab PO 0800 REPLACED BY [facility] Last Admin: 11/22/16 10:16 Dose: 1 tab Ondansetron HCl (Zofran Inj) 4 mg IVP Q4H PRN PRN Reason: Nausea/Vomiting Last Admin: 11/22/16 14:30 Dose: 4 mg Pantoprazole Sodium (Protonix Inj) 40 mg IVP Q12 REPLACED BY [facility] Last Admin: 11/22/16 22:47 Dose: 40 mg Petrolatum (Desitin Maximum Strength Topical 40% Oint) 1 gm TOP Q4H PRN PRN Reason: Rash Last Admin: 10/23/16 22:39 Dose: 1 applic Potassium Chloride (K-Dur 20 Meq Er Tab) 40 meq PO DAILY [facility] Last Admin: 11/22/16 10:15 Dose: Not Given Propranolol HCl (Inderal La) 120 mg PO DAILY REPLACED BY [facility] Sucralfate (Carafate Oral Susp) 1 gm PO BID [facility] Last Admin: 11/22/16 19:31 Dose: 1 gm - Labs Labs: 11/23/16 07:00 11/23/16 07:00 PT 14.9 Seconds (9.9-11.8) H 11/23/16 09:30 INR 1.38 (0.93-1.08) H 11/23/16 09:30 APTT 26.5 Seconds (23.7-30.8) 11/23/16 09:30 - Constitutional Appears: Confused, Chronically Ill - Head Exam Head Exam: ATRAUMATIC, NORMOCEPHALIC - Eye Exam Eye Exam: EOMI Pupil Exam: PERRL - ENT Exam ENT Exam: Mucous Membranes Dry - Respiratory Exam Respiratory Exam: Respiratory Distress. absent: Chest Wall Tenderness, NORMAL BREATHING PATTERN - Cardiovascular Exam Cardiovascular Exam: REGULAR RHYTHM, +S1, +S2 - GI/Abdominal Exam GI & Abdominal Exam: Guarding, Soft, Tenderness. absent: Distended, Rigid Additional comments: Ostomy output 350cc of light brown fecal material with some melanic appearing material. DEEJAY draining 30cc of serosanguinous fluid. - Exam Additional comments: Minor output 675cc from 7p-7a. - Neurological Exam Neurological Exam: Altered Additional comments: Patient in and out of consciousness. At the beginning of the rapid response, the patient was unable to answer questions because she was lethargic. After an hour and a half, the patient became more responsive. Was able to recognize her mother and AAOx2. Patient refused to be examined by anyone due to a complaint of pain in her lower abdomen, back and neck. - Skin Skin Exam: Dry, Normal Color, Warm Assessment and Plan - Assessment and Plan (Free Text) Assessment: 61 year old F with Colon CA and GI bleed. Plan: Continue to monitor H+H, 11/23 labs - Hgb 7.4, Hct 21.8 - medicine ordered 2u PRBC and 1u FFP Monitor electrolytes, 11/23 - mag 1.4 - repleted with two 2u Monitor Vital signs q30min - last manual BP 86/56 at 0945 Patient was scheduled for push enteroscopy today to look for source of GI bleed. Will discuss with medicine/anesthesia if patient can tolerate procedure. Awaiting urine culture. Look to replace minor cath today or in near future. Possible Opioid overdose. Fentanyl patch was removed and PLASTERER FOREMAN pump has been paused. Possible use of narcan was discussed with team but it was decided to wait and see as patient's mental status appears to be improving. Will discuss with medicine team for new approach to pain control. Discussed with family [mother and brother(alfonso) in person, sister (yolanda) was on speaker phone, one other sister was unable to be reached at time of discussion] in detail about the state of the patient's disease and current outlook. Discussed the results of the pathology report from the surgery on 2016 that showed the specimen had positive margins and 3/5 lymph nodes positive. Discussed possibility of palliative or hospice care. There is currently no power of divorce attorney. Mother is next of kin. Brother and sister support the mother having final say in the patient's care. As of right now, family states that they want a full code, including intubation and CPR. Will discuss with Dr. Kaykay London PGY 1 <Yoan Mccracken - Last Filed: 12/02/16 23:57> Objective - Vital Signs/Intake and Output Vital Signs (last 24 hours): Temp Pulse Resp BP Pulse Ox 97.8 F 101 H 18 170/89 H 100 12/02/16 16:00 12/02/16 16:00 12/02/16 16:00 12/02/16 16:00 12/02/16 16:00 Intake and Output: 12/02/16 12/03/16 18:59 06:59 Intake Total 120 Output Total 450 600 Balance -450 -480 - Medications Medications: Current Medications Acetaminophen (Tylenol 650 Mg Supp) 650 mg RC Q4H PRN PRN Reason: Fever >100.4 F Last Admin: 11/01/16 21:18 Dose: 650 mg Al Hydrox/Mg Hydrox/Simethicone 30 ml/Diphenhydramine HCl 75 mg/Lidocaine 30 ml 0 ml PO QID [facility] Last Admin: 12/02/16 21:01 Dose: Not Given Diphenhydramine HCl (Benadryl) 50 mg IVP HS PRN PRN Reason: Insomnia Last Admin: 11/27/16 01:00 Dose: 50 mg Ergocalciferol (Drisdol 50,000 Intl Units Cap) 1 cap PO Q7D REPLACED BY [facility] Last Admin: 11/19/16 18:04 Dose: Not Given Ferrous Sulfate (Feosol) 324 mg PO TID REPLACED BY [facility] Last Admin: 12/02/16 18:16 Dose: Not Given Fluconazole (Diflucan) 200 mg PO DAILY REPLACED BY [facility] PRN Reason: Protocol Stop: 12/12/16 10:01 Last Admin: 12/02/16 09:44 Dose: Not Given Home Med (Home Med) 1 unit PO Q12H PRN PRN Reason: Inflammation Last Admin: 10/18/16 11:03 Dose: 1 unit Hydralazine HCl (Apresoline) 10 mg IVP Q4H PRN PRN Reason: Systolic Blood Pressure Hydromorphone HCl (Dilaudid) 1 mg IVP Q1H PRN PRN Reason: Pain, moderate (4-7) Last Admin: 12/02/16 21:06 Dose: 1 mg Levetiracetam (Keppra 500mg Ivpb) 500 mg in 100 mls @ 400 mls/hr IV Q12 REPLACED BY [facility] Last Admin: 12/02/16 21:06 Dose: 400 mls/hr Potassium Chloride/Dextrose (Potassium Chl 40 Meq In D5w) 1,000 mls @ 60 mls/ hr IV .[id number] REPLACED BY [facility] Last Admin: 12/02/16 18:17 Dose: Not Given Magnesium Hydroxide (Milk Of Magnesia) 30 ml PO DAILY PRN PRN Reason: skin irritation Last Admin: 12/02/16 14:09 Dose: 30 ml Magnesium Oxide (Mag-Ox) 400 mg PO BID REPLACED BY [facility] Last Admin: 12/02/16 18:16 Dose: Not Given Multi-Ingredient Ointment (Hydrophor Oint) 0 gm TOP Q6H PRN PRN Reason: Dry lip Multivitamins (Thera Tab) 1 tab PO 0800 REPLACED BY [facility] Last Admin: 12/02/16 08:10 Dose: Not Given Propranolol HCl (Inderal La) 120 mg PO DAILY REPLACED BY [facility] Last Admin: 12/02/16 09:44 Dose: Not Given Sucralfate (Carafate Oral Susp) 1 gm PO BID REPLACED BY [facility] Last Admin: 12/02/16 18:16 Dose: Not Given - Labs Labs: 12/02/16 06:00 12/02/16 06:00 PT 12.9 Seconds (9.9-11.8) H 12/02/16 06:00 INR 1.19 (0.93-1.08) H 12/02/16 06:00 APTT 32.9 Seconds (23.7-30.8) H 12/02/16 06:00 Assessment and Plan - Assessment and Plan (Free Text) Plan: Patient was seen and examined by me. I agree with assessment and plan as per resident's note.
--- NOTE | 2016-11-23 10:38 | RAD ---
HISTORY: AMS COMPARISON: 11/17/2016 FINDINGS: LUNGS: No active pulmonary disease. PLEURA: No significant pleural effusion identified, no pneumothorax apparent. CARDIOVASCULAR: Normal. OSSEOUS STRUCTURES: No significant abnormalities. VISUALIZED UPPER ABDOMEN: Normal. OTHER FINDINGS: None. IMPRESSION: No active disease.
[2016-11-23 11:47] LABS: VENOUS BLOOD GAS PO2 61 mm/Hg (30-55); VENOUS BLOOD PH 7.41 (7.32-7.43)
[2016-11-23 11:48] LABS: VENOUS BLOOD FIO2 21 %; VENOUS BLOOD GAS BASE EXCESS 3.5 mmol/L (0.0-2.0)
[2016-11-23 11:55] LABS: ARTERIAL BLOOD GAS HCO3 23.9 mmol/L (21-28); ARTERIAL BLOOD GAS O2 SAT 99.5 % (95-98); ARTERIAL BLOOD GAS PCO2 36 mm/Hg (35-45); ARTERIAL BLOOD GAS PH 7.43 (7.35-7.45)
--- NOTE | 2016-11-23 13:02 | CP.PCM.PN ---
<Yoana Osei - Last Filed: 11/23/16 13:01> Subjective - Date & Time of Evaluation Date of Evaluation: 11/23/16 Time of Evaluation: 09:40 - Subjective Subjective: Patient s/p rapid response, patient was being repositioned in bed and noted to have eyeball rolling and had altered mental status, prior to this she was reported to awake and responsive. Colostomy output is reported to be liquid brown stool woth some dark particle. 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 Patient is lethargic, unable to answer questions. Objective - Vital Signs/Intake and Output Vital Signs (last 24 hours): Temp Pulse Resp BP Pulse Ox 97.8 F 103 H 18 74/48 L 99 11/23/16 08:55 11/23/16 08:55 11/23/16 08:55 11/23/16 11:13 11/23/16 08:55 Intake and Output: 11/23/16 11/23/16 06:59 18:59 Intake Total 480 Output Total 3080 Balance -2600 - Medications Medications: Current Medications Acetaminophen (Tylenol 650 Mg Supp) 650 mg RC Q4H PRN PRN Reason: Fever >100.4 F Last Admin: 11/01/16 21:18 Dose: 650 mg Collagenase (Santyl) 1 gm TOP BID [facility] Last Admin: 11/22/16 18:20 Dose: 1 applic Al Hydrox/Mg Hydrox/Simethicone 30 ml/Diphenhydramine HCl 75 mg/Lidocaine 30 ml 0 ml PO Q2H PRN PRN Reason: Mouth/Throat Pain Last Admin: 11/07/16 09:00 Dose: 15 ml Diphenhydramine HCl (Benadryl) 50 mg IVP HS PRN PRN Reason: Insomnia Last Admin: 11/23/16 02:36 Dose: 50 mg Ergocalciferol (Drisdol 50,000 Intl Units Cap) 1 cap PO Q7D [facility] Last Admin: 11/19/16 18:04 Dose: Not Given Fentanyl (Duragesic) 1 patch TD Q72H [facility] Last Admin: 11/22/16 14:30 Dose: 1 patch Ferrous Sulfate (Feosol) 324 mg PO TID [facility] Last Admin: 11/22/16 19:31 Dose: 324 mg Furosemide (Lasix) 20 mg IVP Q12 [facility] Last Admin: 11/23/16 11:13 Dose: Not Given Home Med (Home Med) 1 unit PO Q12H PRN PRN Reason: Inflammation Last Admin: 10/18/16 11:03 Dose: 1 unit Daptomycin 440 mg/ Sodium (Chloride) 100 mls @ 200 mls/hr IV Q24H [facility] Stop: 11/27/16 09:01 Last Admin: 11/22/16 11:36 Dose: 200 mls/hr Potassium Chloride 40 meq/ (Dextrose) 1,020 mls @ 60 mls/hr IV .Q17H [facility] Last Admin: 11/22/16 11:40 Dose: 60 mls/hr Micafungin Sodium 100 mg/ (Sodium Chloride) 100 mls @ 100 mls/hr IV DAILY [facility] PRN Reason: Protocol Stop: 11/28/16 10:01 Last Admin: 11/22/16 10:19 Dose: 100 mls/hr Hydromorphone HCl (Dilaudid-Hp 1 Mg/Ml Pet Caretaker) 25 mls @ 0.5 mls/hr IV PRN PRN PRN Reason: TOOL GRINDER OPERATOR SURFACE PER MD ORDER Last Admin: 11/22/16 12:16 Dose: 0.5 mls/hr Dopamine HCl/Dextrose (Dopamine 400mg/250ml D5w) 400 mg in 250 mls @ 13.183 mls /hr IV .[id number] PRN; Protocol; 5 MCG/KG/MIN PRN Reason: TITRATE to SBP > 90 Magnesium Oxide (Mag-Ox) 400 mg PO BID [facility] Last Admin: 11/22/16 19:31 Dose: 400 mg Multi-Ingredient Ointment (Hydrophor Oint) 0 gm TOP Q6H PRN PRN Reason: Dry lip Multivitamins (Thera Tab) 1 tab PO 0800 [facility] Last Admin: 11/22/16 10:16 Dose: 1 tab Ondansetron HCl (Zofran Inj) 4 mg IVP Q4H PRN PRN Reason: Nausea/Vomiting Last Admin: 11/22/16 14:30 Dose: 4 mg Pantoprazole Sodium (Protonix Inj) 40 mg IVP Q12 [facility] Last Admin: 11/22/16 22:47 Dose: 40 mg Petrolatum (Desitin Maximum Strength Topical 40% Oint) 1 gm TOP Q4H PRN PRN Reason: Rash Last Admin: 10/23/16 22:39 Dose: 1 applic Potassium Chloride (K-Dur 20 Meq Er Tab) 40 meq PO DAILY [facility] Last Admin: 11/22/16 10:15 Dose: Not Given Propranolol HCl (Inderal La) 120 mg PO DAILY [facility] Sucralfate (Carafate Oral Susp) 1 gm PO BID [facility] Last Admin: 11/22/16 19:31 Dose: 1 gm - Labs Labs: 11/23/16 07:00 11/23/16 07:00 PT 14.9 Seconds (9.9-11.8) H 11/23/16 09:30 INR 1.38 (0.93-1.08) H 11/23/16 09:30 APTT 26.5 Seconds (23.7-30.8) 11/23/16 09:30 - Constitutional Appears: Chronically Ill, Other (lethargic) - Eye Exam Eye Exam: absent: Scleral icterus - ENT Exam ENT Exam: Mucous Membranes Moist - Neck Exam Neck Exam: Normal Inspection - Respiratory Exam Respiratory Exam: NORMAL BREATHING PATTERN. absent: Respiratory Distress - Cardiovascular Exam Cardiovascular Exam: +S1, +S2 - GI/Abdominal Exam GI & Abdominal Exam: Soft, Tenderness Additional comments: colostomy, dark brown stool, liquid - Extremities Exam Extremities Exam: Pedal Edema - Neurological Exam Neurological Exam: Altered Assessment and Plan - Assessment and Plan (Free Text) Assessment: ASSESSMENT: S/P Rapid Response,AMS, hypotension, maybe secondary narcotic induced GI BLeed, r/o small bowel bleeding, s/p GI bleed scan negative Stage IV colon cnacer with metastasis to the done S/P Exp Laparotomy, lysis of adhesion, repair of small bowel enterotomy, partial sigmoidectomy w/end-colostomy Anemia Hypomagnesium PLAN: NPO, continue IV hydration plan for transfusion, PRBC, FFP Albumin infusion Dopamine drip to start planned for push enterscope for evaluation of small bowel for GIB today, to be evaluated by anesthesia, will follow up closely. Case discussed with Dr. Null <Tong Null V - Last Filed: 11/24/16 09:56> Objective - Vital Signs/Intake and Output Vital Signs (last 24 hours): Temp Pulse Resp BP Pulse Ox 98.4 F 94 H 20 132/72 98 11/23/16 16:51 11/23/16 16:51 11/23/16 16:51 11/23/16 21:59 11/23/16 16:00 Intake and Output: 11/23/16 11/24/16 18:59 06:59 Intake Total 375 0 Output Total 220 Balance 375 -220 - Medications Medications: Current Medications Acetaminophen (Tylenol 650 Mg Supp) 650 mg RC Q4H PRN PRN Reason: Fever >100.4 F Last Admin: 11/01/16 21:18 Dose: 650 mg Collagenase (Santyl) 1 gm TOP BID [facility] Last Admin: 11/23/16 18:02 Dose: Not Given Diphenhydramine HCl (Benadryl) 50 mg IVP HS PRN PRN Reason: Insomnia Last Admin: 11/23/16 02:36 Dose: 50 mg Ergocalciferol (Drisdol 50,000 Intl Units Cap) 1 cap PO Q7D [facility] Last Admin: 11/19/16 18:04 Dose: Not Given Fentanyl (Duragesic) 1 patch TD Q72H [facility] Last Admin: 11/22/16 14:30 Dose: 1 patch Ferrous Sulfate (Feosol) 324 mg PO TID [facility] Last Admin: 11/23/16 18:00 Dose: Not Given Furosemide (Lasix) 20 mg IVP Q12 [facility] Last Admin: 11/23/16 21:59 Dose: 20 mg Home Med (Home Med) 1 unit PO Q12H PRN PRN Reason: Inflammation Last Admin: 10/18/16 11:03 Dose: 1 unit Hydromorphone HCl (Dilaudid) 1 mg IVP Q1H PRN PRN Reason: Pain, severe (8-10) Last Admin: 11/23/16 20:48 Dose: 1 mg Daptomycin 440 mg/ Sodium (Chloride) 100 mls @ 200 mls/hr IV Q24H [facility] Stop: 11/27/16 09:01 Last Admin: 11/22/16 11:36 Dose: 200 mls/hr Micafungin Sodium 100 mg/ (Sodium Chloride) 100 mls @ 100 mls/hr IV DAILY [facility] PRN Reason: Protocol Stop: 11/28/16 10:01 Last Admin: 11/23/16 22:08 Dose: Not Given Potassium Chloride 40 meq/ (Dextrose/Sodium Chloride) 1,020 mls @ 80 mls/hr IV .[id number] [facility] Magnesium Oxide (Mag-Ox) 400 mg PO BID [facility] Last Admin: 11/23/16 18:01 Dose: Not Given Multi-Ingredient Ointment (Hydrophor Oint) 0 gm TOP Q6H PRN PRN Reason: Dry lip Multivitamins (Thera Tab) 1 tab PO 0800 [facility] Last Admin: 11/23/16 18:03 Dose: Not Given Ondansetron HCl (Zofran Inj) 4 mg IVP Q4H PRN PRN Reason: Nausea/Vomiting Last Admin: 11/22/16 14:30 Dose: 4 mg Pantoprazole Sodium (Protonix Inj) 40 mg IVP Q12 [facility] Last Admin: 11/23/16 22:03 Dose: 40 mg Petrolatum (Desitin Maximum Strength Topical 40% Oint) 1 gm TOP Q4H PRN PRN Reason: Rash Last Admin: 10/23/16 22:39 Dose: 1 applic Potassium Chloride (K-Dur 20 Meq Er Tab) 40 meq PO DAILY [facility] Last Admin: 11/23/16 16:17 Dose: Not Given Propranolol HCl (Inderal La) 120 mg PO DAILY [facility] Last Admin: 11/23/16 16:16 Dose: Not Given Sucralfate (Carafate Oral Susp) 1 gm PO BID [facility] Last Admin: 11/23/16 17:59 Dose: Not Given - Labs Labs: 11/23/16 18:31 11/23/16 18:31 PT 13.6 Seconds (9.9-11.8) H 11/23/16 18:31 INR 1.26 (0.93-1.08) H 11/23/16 18:31 APTT 34.5 Seconds (23.7-30.8) H 11/23/16 18:31 Attending/Attestation - Attestation I have personally seen and examined this patient.: Yes I have fully participated in the care of the patient.: Yes I have reviewed all pertinent clinical information, including history, physical exam and plan: Yes Notes (Text): This patient was rapid response this a.m. patient was hypotensive and short period of unresponsiveness thought to be secondary to pain medication. Patient also has history of GI bleeding.. Metastatic colorectal carcinoma status post chemotherapy prolonged and complicated hospital course . She had recent laparotomy Bailey's procedure. Patient did have upper GI endoscopy done previously to the surgery to further evaluate these recurrent bleeding. The upper GI endoscopy revealed no upper GI source of blood loss noticed at that time. There was a clear bile noticed in the stomach and also in the duodenum. Patient had 2 bleeding scans since then both negative. The bleeding appears to be from the small bowel clinically. I did discuss with Dr. Sams earlier and the plan was to do the endoscopy today. However in view of the rapid response requested anesthesiologist to reevaluate. Patient's hemoglobin was 7.4. Anesthesiologist evaluated the patient and he also discussed with Dr. Hendricks. Clearly this patient has high anesthetic risk however patient but would benefit from endoscopy The plan is to optimize the patient with a transfusion and reevaluate the patient prior to scheduling for endoscopy tomorrow I did discuss with the patient's mother and sister at length. They fully understood all questions answered.
--- NOTE | 2016-11-23 13:13 | CP.PCM.PN ---
Addendum entered and electronically signed by Cassie Arcos DO 11/23/16 17:07 : Push enteroscopy tomorrow via stoma. NPO for now and after mn except med neruo ck q1, vs q1 Pending decision to restart TPN tomorrow. Original Note: <Cassie Arcos - Last Filed: 11/23/16 15:13> Subjective - Date & Time of Evaluation Date of Evaluation: 11/23/16 Time of Evaluation: 13:12 - Subjective Subjective: PGY-[address] Ruthie SCHNEIDER with persistent hypotension Hb drop 9.1 to 7.4 RECHECKER was called: As per nursing, the patient was only responsive to painful stimuli. She is awake, alert, responds to verbal stimuli, and intermittently answers questions appropriately. She is moving bilateral upper extremities past midline. Denies fever, chills , chest pain, SOB. HR 132, BP 72/42, RR 14, SpO2- 100% on NC, Blood Glucose 156 [employer] pump disconnected 1 L NS wide open Recheck BP 40/20 per brachial u/s Doubt accuracy. Pt mentation drifted, agitation at times, lethargic at times. AAOx1 Objective - Vital Signs/Intake and Output Vital Signs (last 24 hours): Temp Pulse Resp BP Pulse Ox 97.8 F 103 H 18 74/48 L 99 11/23/16 08:55 11/23/16 08:55 11/23/16 08:55 11/23/16 11:13 11/23/16 08:55 Intake and Output: 11/23/16 11/23/16 06:59 18:59 Intake Total 480 Output Total 3080 Balance -2600 - Medications Medications: Current Medications Acetaminophen (Tylenol 650 Mg Supp) 650 mg RC Q4H PRN PRN Reason: Fever >100.4 F Last Admin: 11/01/16 21:18 Dose: 650 mg Collagenase (Santyl) 1 gm TOP BID [facility] Last Admin: 11/22/16 18:20 Dose: 1 applic Al Hydrox/Mg Hydrox/Simethicone 30 ml/Diphenhydramine HCl 75 mg/Lidocaine 30 ml 0 ml PO Q2H PRN PRN Reason: Mouth/Throat Pain Last Admin: 11/07/16 09:00 Dose: 15 ml Diphenhydramine HCl (Benadryl) 50 mg IVP HS PRN PRN Reason: Insomnia Last Admin: 11/23/16 02:36 Dose: 50 mg Ergocalciferol (Drisdol 50,000 Intl Units Cap) 1 cap PO Q7D [facility] Last Admin: 11/19/16 18:04 Dose: Not Given Fentanyl (Duragesic) 1 patch TD Q72H [facility] Last Admin: 11/22/16 14:30 Dose: 1 patch Ferrous Sulfate (Feosol) 324 mg PO TID [facility] Last Admin: 11/22/16 19:31 Dose: 324 mg Furosemide (Lasix) 20 mg IVP Q12 [facility] Last Admin: 11/23/16 11:13 Dose: Not Given Home Med (Home Med) 1 unit PO Q12H PRN PRN Reason: Inflammation Last Admin: 10/18/16 11:03 Dose: 1 unit Daptomycin 440 mg/ Sodium (Chloride) 100 mls @ 200 mls/hr IV Q24H [facility] Stop: 11/27/16 09:01 Last Admin: 11/22/16 11:36 Dose: 200 mls/hr Potassium Chloride 40 meq/ (Dextrose) 1,020 mls @ 60 mls/hr IV .Q17H [facility] Last Admin: 11/22/16 11:40 Dose: 60 mls/hr Micafungin Sodium 100 mg/ (Sodium Chloride) 100 mls @ 100 mls/hr IV DAILY [facility] PRN Reason: Protocol Stop: 11/28/16 10:01 Last Admin: 11/22/16 10:19 Dose: 100 mls/hr Hydromorphone HCl (Dilaudid-Hp 1 Mg/Ml [employer] Sales [employer]) 25 mls @ 0.5 mls/hr IV PRN PRN PRN Reason: [employer] PER MD ORDER Last Admin: 11/22/16 12:16 Dose: 0.5 mls/hr Dopamine HCl/Dextrose (Dopamine 400mg/250ml D5w) 400 mg in 250 mls @ 13.183 mls /hr IV .[id number] PRN; Protocol; 5 MCG/KG/MIN PRN Reason: TITRATE to SBP > 90 Magnesium Oxide (Mag-Ox) 400 mg PO BID [facility] Last Admin: 11/22/16 19:31 Dose: 400 mg Multi-Ingredient Ointment (Hydrophor Oint) 0 gm TOP Q6H PRN PRN Reason: Dry lip Multivitamins (Thera Tab) 1 tab PO 0800 [facility] Last Admin: 11/22/16 10:16 Dose: 1 tab Ondansetron HCl (Zofran Inj) 4 mg IVP Q4H PRN PRN Reason: Nausea/Vomiting Last Admin: 11/22/16 14:30 Dose: 4 mg Pantoprazole Sodium (Protonix Inj) 40 mg IVP Q12 [facility] Last Admin: 11/22/16 22:47 Dose: 40 mg Petrolatum (Desitin Maximum Strength Topical 40% Oint) 1 gm TOP Q4H PRN PRN Reason: Rash Last Admin: 10/23/16 22:39 Dose: 1 applic Potassium Chloride (K-Dur 20 Meq Er Tab) 40 meq PO DAILY [facility] Last Admin: 11/22/16 10:15 Dose: Not Given Propranolol HCl (Inderal La) 120 mg PO DAILY [facility] Sucralfate (Carafate Oral Susp) 1 gm PO BID [facility] Last Admin: 11/22/16 19:31 Dose: 1 gm - Labs Labs: 11/23/16 07:00 11/23/16 07:00 PT 14.9 Seconds (9.9-11.8) H 11/23/16 09:30 INR 1.38 (0.93-1.08) H 11/23/16 09:30 APTT 26.5 Seconds (23.7-30.8) 11/23/16 09:30 - Constitutional Appears: Chronically Ill - Head Exam Head Exam: ATRAUMATIC, NORMAL INSPECTION, NORMOCEPHALIC - Eye Exam Eye Exam: EOMI, Normal appearance Additional comments: pupil 3mm sluggishly reactive to light - ENT Exam ENT Exam: Mucous Membranes Moist - Respiratory Exam Respiratory Exam: Decreased Breath Sounds (b/l basilla), Clear to Ausculation Bilateral. absent: Rales, Rhonchi, Wheezes - Cardiovascular Exam Cardiovascular Exam: Tachycardia, REGULAR RHYTHM, +S1, +S2 - GI/Abdominal Exam GI & Abdominal Exam: Soft Additional comments: ostomy with melena - Neurological Exam Neurological Exam: Awake (lethargic, agitation at times, ). absent: Alert, Oriented x3 (aaox1) - Skin Additional comments: cool extremities Assessment and Plan - Assessment and Plan (Free Text) Plan: 61 F with PMHx stage 4 colorectal cancer S/P colectomy in 2014 with stenosis of sigmoid colon and esophageal ulceration of unclear etiology. Cancer has metastatis to sacral area, Hx Cauda Equina syndrome. She was hospitalized on for watery diarrhea with neutropenia. This hospitalization was complicated by (1) neutropenia sepsis due to bacteremia and fungemia. (2) Now 2 sites of GI bleed, upper and lower GI, s/p colectomy & Marquita, requiring transfusion. 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 Less likely hemorrhagic vs post-obstructive vs septic shock. Plan: Hypotension - albumin, NS bolus, FFP x 2, blood x 2, NPO for now for AMS. VS and neural check q30min. GI bleed expect to improve s/p Palliative colostomy (11/17). However, pt had 2 sites of GI bleed. upper vs lower. Pt continues to have GI bleed requring transfusion. Treatment of bacteremia and fungemia on going. Pt still expeience intense abdominal pain on [employer]ER. Revisited goal of care on 11/12. Pt states that she is not ready for palliative or comfort care. Plan to rehab. #Stage IV metastatic colorectal cancer - hold futher specific treatment for now due to complications - s/p Port-a-cath removal (11/14) #GI bleed, Active, (upper and lower) - Pt is undergoing CT abd/pelvis with PO contrast (11/22/16) - consider transexamic acid pending GI input - dark stool in ostomy bag, Repeat bleeding scan (-) (11/21/16) - pt states that regular diet too dry; Diet change to Full liquid - EGD/colonoscopy: Stricture at sigmoid colon from external pressure, with ulceration - Many ulcers on esophagus found on EGD, pathology negative - Protonix IV BID + sucralfate - clear ensure 3/day - Dietitan: under-nutritient - Lasix, Lopressor for BP control; propranolol 1g bid to prevent upper GI bleed # thrombocytopenia - DIC workup negative #Enterococcus Bacteremia and Susy fungemia and CMV on upper GI ulcer - Daptomycin - micafungin - Valganciclovir D/C - previously on hold since there was no evidence of CMV on the biopsy of the ulcers in the esophagus - will consider restarting acyclovir #Dispo - prognosis guarded - tcu eval. - OOB to chair will not cause GI bleed. Increase pain coverage prior transfer and safety precaution. - goal is to taper [employer] need #Full code #Access - L PICC - minor - ostomy s/r/d/s Dr. Hendricks <Kedar Hendricks P - Last Filed: 11/25/16 00:45> Objective - Vital Signs/Intake and Output Vital Signs (last 24 hours): Temp Pulse Resp BP Pulse Ox 97.1 F L 50 L 18 126/58 L 98 11/25/16 00:00 11/25/16 00:00 11/25/16 00:00 11/25/16 00:00 11/25/16 00:00 Intake and Output: 11/24/16 11/25/16 18:59 06:59 Intake Total 2709 425 Output Total 1980 Balance 729 425 - Medications Medications: Current Medications Acetaminophen (Tylenol 650 Mg Supp) 650 mg RC Q4H PRN PRN Reason: Fever >100.4 F Last Admin: 11/01/16 21:18 Dose: 650 mg Collagenase (Santyl) 1 gm TOP BID [facility] Last Admin: 11/24/16 10:43 Dose: 1 applic Diphenhydramine HCl (Benadryl) 50 mg IVP HS PRN PRN Reason: Insomnia Last Admin: 11/23/16 02:36 Dose: 50 mg Ergocalciferol (Drisdol 50,000 Intl Units Cap) 1 cap PO Q7D [facility] Last Admin: 11/19/16 18:04 Dose: Not Given Fentanyl (Duragesic) 1 patch TD Q72H [facility] Last Admin: 11/22/16 14:30 Dose: 1 patch Ferrous Sulfate (Feosol) 324 mg PO TID [facility] Last Admin: 11/24/16 17:15 Dose: Not Given Furosemide (Lasix) 20 mg IVP Q12 [facility] Last Admin: 11/24/16 23:15 Dose: 20 mg Home Med (Home Med) 1 unit PO Q12H PRN PRN Reason: Inflammation Last Admin: 10/18/16 11:03 Dose: 1 unit Hydromorphone HCl (Dilaudid) 1 mg IVP Q1H PRN PRN Reason: Pain, severe (8-10) Last Admin: 11/24/16 23:14 Dose: 1 mg Daptomycin 440 mg/ Sodium (Chloride) 100 mls @ 200 mls/hr IV Q24H [facility] Stop: 11/27/16 09:01 Last Admin: 11/24/16 19:08 Dose: 200 mls/hr Micafungin Sodium 100 mg/ (Sodium Chloride) 100 mls @ 100 mls/hr IV DAILY [facility] PRN Reason: Protocol Stop: 11/28/16 10:01 Last Admin: 11/24/16 10:35 Dose: 100 mls/hr Potassium Chloride 40 meq/ (Dextrose/Sodium Chloride) 1,020 mls @ 80 mls/hr IV .[id number] [facility] Last Admin: 11/24/16 05:49 Dose: 80 mls/hr Cefepime HCl (Maxipime 1gm) 1 gm in 100 mls @ 100 mls/hr IVPB Q12 [facility] PRN Reason: Protocol Last Admin: 11/24/16 23:16 Dose: 100 mls/hr Magnesium Oxide (Mag-Ox) 400 mg PO BID [facility] Last Admin: 11/24/16 17:16 Dose: Not Given Multi-Ingredient Ointment (Hydrophor Oint) 0 gm TOP Q6H PRN PRN Reason: Dry lip Multivitamins (Thera Tab) 1 tab PO 0800 [facility] Last Admin: 11/24/16 10:38 Dose: Not Given Ondansetron HCl (Zofran Inj) 4 mg IVP Q4H PRN PRN Reason: Nausea/Vomiting Last Admin: 11/24/16 00:05 Dose: 4 mg Pantoprazole Sodium (Protonix Inj) 40 mg IVP Q12 [facility] Last Admin: 11/24/16 23:16 Dose: 40 mg Petrolatum (Desitin Maximum Strength Topical 40% Oint) 1 gm TOP Q4H PRN PRN Reason: Rash Last Admin: 10/23/16 22:39 Dose: 1 applic Potassium Chloride (K-Dur 20 Meq Er Tab) 40 meq PO DAILY [facility] Last Admin: 11/24/16 10:39 Dose: Not Given Propranolol HCl (Inderal La) 120 mg PO DAILY [facility] Last Admin: 11/24/16 10:31 Dose: 120 mg Sucralfate (Carafate Oral Susp) 1 gm PO BID [facility] Last Admin: 11/24/16 19:09 Dose: Not Given - Labs Labs: 11/24/16 07:53 11/24/16 07:53 PT 13.1 Seconds (9.9-11.8) H 11/24/16 10:03 INR 1.21 (0.93-1.08) H 11/24/16 10:03 APTT 31.2 Seconds (23.7-30.8) H 11/24/16 10:03 Attending/Attestation - Attestation I have personally seen and examined this patient.: Yes I have fully participated in the care of the patient.: Yes I have reviewed all pertinent clinical information, including history, physical exam and plan: Yes
[2016-11-23] MEDS ORDERED: HYDROmorphone 0.5 mg/0.5 ml ISec IVP STA (13:24)
--- NOTE | 2016-11-23 13:39 | PN ---
DATE: 11/22/2016 SUBJECTIVE: The patient is seen sitting in bed. She is awake. She is alert. She is cachectic, frail. PHYSICAL EXAMINATION: GENERAL: An elderly lady, sitting in bed. VITAL SIGNS: Blood pressure 142/92, heart rate 69, respiratory rate 20, temperature 98.2. HEENT: Normocephalic and atraumatic. Positive pallor. NECK: Supple. No JVD. LUNGS: Bilateral rhonchi, equal expansion. CARDIAC: S1 and S2, regular rate and rhythm. No murmur, no rub. ABDOMEN: Distended, soft, positive colostomy. EXTREMITIES: 1+ pitting edema of the lower extremities, wrinkling of skin. INTAKE AND OUTPUT: 1745/1370. LABORATORY DATA: WBC 4.7, hemoglobin 9.1, hematocrit 26, and platelets 107. Sodium 142, potassium 3.6, chloride 105, CO2 of 31, BUN 13, creatinine 0.5, glucose 92, calcium 7.8, magnesium 1.4, albumin 2.2, corrected calcium is 9. CURRENT MEDICATIONS: 1. Benadryl. 2. Carafate. 3. Daptomycin *------*. 4. Dilaudid. 5. Vitamin D. 6. Duragesic. 7. Iron sulfate. 8. Inderal 120. 9. Potassium 40 mEq daily. 10. Lasix 20 IV q.12. 11. Micafungin. 12. Potassium chloride. 13. Protonix. 14. Collagenase. 15. Tylenol. 16. Valacyclovir. 17. Zofran. ASSESSMENT: 1. Stage IV colon cancer. 2. Chronic malnutrition. 3. Status post palliative colostomy. 4. Severe anemia. 5. Cachexia. 6. Resolved acute kidney injury. 7. Hypomagnesemia. 8. Hypokalemia, resolved. PLAN: 1. Magnesium sulfate IV piggyback 1 g today. 2. Push p.o. intake. 3. Continue pain management. 4. Continue antibiotics and antifungals as per ID. Adele Griffin MD
[2016-11-23] MEDS ORDERED: DiphenhydrAMINE 50 mg/ml Inj IVP ONE (13:55)
--- NOTE | 2016-11-23 14:23 | CP.PCM.PN ---
Subjective - Date & Time of Evaluation Date of Evaluation: 11/23/16 Time of Evaluation: 09:00 - Subjective Subjective: I was called by the resident due to hypotension and AMS. Objective - Vital Signs/Intake and Output Vital Signs (last 24 hours): Temp Pulse Resp BP Pulse Ox 97.8 F 103 H 18 74/48 L 99 11/23/16 08:55 11/23/16 08:55 11/23/16 08:55 11/23/16 11:13 11/23/16 08:55 Intake and Output: 11/23/16 11/23/16 06:59 18:59 Intake Total 480 Output Total 3080 Balance -2600 - Medications Medications: Current Medications Acetaminophen (Tylenol 650 Mg Supp) 650 mg RC Q4H PRN PRN Reason: Fever >100.4 F Last Admin: 11/01/16 21:18 Dose: 650 mg Collagenase (Santyl) 1 gm TOP BID [facility] Last Admin: 11/22/16 18:20 Dose: 1 applic Al Hydrox/Mg Hydrox/Simethicone 30 ml/Diphenhydramine HCl 75 mg/Lidocaine 30 ml 0 ml PO Q2H PRN PRN Reason: Mouth/Throat Pain Last Admin: 11/07/16 09:00 Dose: 15 ml Diphenhydramine HCl (Benadryl) 50 mg IVP HS PRN PRN Reason: Insomnia Last Admin: 11/23/16 02:36 Dose: 50 mg Ergocalciferol (Drisdol 50,000 Intl Units Cap) 1 cap PO Q7D [facility] Last Admin: 11/19/16 18:04 Dose: Not Given Fentanyl (Duragesic) 1 patch TD Q72H [facility] Last Admin: 11/22/16 14:30 Dose: 1 patch Ferrous Sulfate (Feosol) 324 mg PO TID [facility] Last Admin: 11/22/16 19:31 Dose: 324 mg Furosemide (Lasix) 20 mg IVP Q12 [facility] Last Admin: 11/23/16 11:13 Dose: Not Given Home Med (Home Med) 1 unit PO Q12H PRN PRN Reason: Inflammation Last Admin: 10/18/16 11:03 Dose: 1 unit Daptomycin 440 mg/ Sodium (Chloride) 100 mls @ 200 mls/hr IV Q24H [facility] Stop: 11/27/16 09:01 Last Admin: 11/22/16 11:36 Dose: 200 mls/hr Potassium Chloride 40 meq/ (Dextrose) 1,020 mls @ 60 mls/hr IV .Q17H [facility] Last Admin: 11/22/16 11:40 Dose: 60 mls/hr Micafungin Sodium 100 mg/ (Sodium Chloride) 100 mls @ 100 mls/hr IV DAILY [facility] PRN Reason: Protocol Stop: 11/28/16 10:01 Last Admin: 11/22/16 10:19 Dose: 100 mls/hr Dopamine HCl/Dextrose (Dopamine 400mg/250ml D5w) 400 mg in 250 mls @ 13.183 mls /hr IV .[id number] PRN; Protocol; 5 MCG/KG/MIN PRN Reason: TITRATE to SBP > 90 Magnesium Oxide (Mag-Ox) 400 mg PO BID [facility] Last Admin: 11/22/16 19:31 Dose: 400 mg Multi-Ingredient Ointment (Hydrophor Oint) 0 gm TOP Q6H PRN PRN Reason: Dry lip Multivitamins (Thera Tab) 1 tab PO 0800 [facility] Last Admin: 11/22/16 10:16 Dose: 1 tab Ondansetron HCl (Zofran Inj) 4 mg IVP Q4H PRN PRN Reason: Nausea/Vomiting Last Admin: 11/22/16 14:30 Dose: 4 mg Pantoprazole Sodium (Protonix Inj) 40 mg IVP Q12 [facility] Last Admin: 11/22/16 22:47 Dose: 40 mg Petrolatum (Desitin Maximum Strength Topical 40% Oint) 1 gm TOP Q4H PRN PRN Reason: Rash Last Admin: 10/23/16 22:39 Dose: 1 applic Potassium Chloride (K-Dur 20 Meq Er Tab) 40 meq PO DAILY [facility] Last Admin: 11/22/16 10:15 Dose: Not Given Propranolol HCl (Inderal La) 120 mg PO DAILY [facility] Sucralfate (Carafate Oral Susp) 1 gm PO BID [facility] Last Admin: 11/22/16 19:31 Dose: 1 gm - Labs Labs: 11/23/16 07:00 11/23/16 07:00 PT 14.9 Seconds (9.9-11.8) H 11/23/16 09:30 INR 1.38 (0.93-1.08) H 11/23/16 09:30 APTT 26.5 Seconds (23.7-30.8) 11/23/16 09:30 - Constitutional Appears: Confused - Head Exam Head Exam: ATRAUMATIC - Eye Exam Eye Exam: PERRL (pupils +2) - ENT Exam ENT Exam: Mucous Membranes Dry - Neck Exam Neck Exam: Normal Inspection - Respiratory Exam Respiratory Exam: Clear to Ausculation Bilateral, NORMAL BREATHING PATTERN - Cardiovascular Exam Cardiovascular Exam: REGULAR RHYTHM - GI/Abdominal Exam GI & Abdominal Exam: Soft (colostomy present , no gross blood) Assessment and Plan - Assessment and Plan (Free Text) Assessment: 61 y/o F w/ End stage Colon CA RR called due to hypotension and AMS Upon evaluation the patient was awake and alert and able to follow commands after SAFETY TECHNICIAN was stopped and Long acting narcotic patch was removed. It seems that her BP improved after 1500 cc of N.S and stopping narcotics. Please use narcotics sparingly and nurse driven, No SAFETY TECHNICIAN. HGB dropped slightly , would transfuse to keep up if hypotension continues. Doubt shock state from post-op course but would trend HGB q 12hrs. Keep INR<2 and platelets> 20k . Pt doesn't want any procedures done such as Central lines in the event that her PICC fails. Family at bedside awaiting to decide on CODE status and goals of care. PPI cc time 55 min
--- NOTE | 2016-11-23 15:03 | CP.PCM.CON ---
<Amy Malloy - Last Filed: 11/23/16 15:00> History of Present Illness - History of Present Illness History of Present Illness: PGY-2 ICU consult note 61 female with PMH of stage IV colon CA s/p colectomy reversal s/p FOLFOX-6 chemotherapy regimen x2 with Neulasta afterwards completed on 10/05/16, s/p XRT for sacral metastasis s/p colectomy and max consulted after rapid response for AMS. During the rapid she was found to be hypotensive. She was given 2 IVF bolus. BP improved after fluids. Patient is awake, alert and complaining of general pain. Family at bedside. Review of Systems - Review of Systems Systems not reviewed;Unavailable: Altered Mental Status 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) - MUSCULOSKELETAL/RHEUMATOLOGICAL Hx Musculoskeletal Disorders: Yes Hx Back Pain: Yes Hx Falls: No - GASTROINTESTINAL Hx Gastroesophageal Reflux: Yes - GENITOURINARY/GYNECOLOGICAL Hx Genitourinary Disorders: Yes Hx Urinary Tract Infection: Yes - PSYCHIATRIC Hx Psychophysiologic Disorder: Yes Hx Anxiety: Yes Hx Substance Use: No - SURGICAL HISTORY Hx Surgeries: Yes - ANESTHESIA Hx Anesthesia Reactions: No Hx Malignant Hyperthermia: No Meds Allergies/Adverse Reactions: Allergies Allergy/AdvReac Type Severity Reaction Status Date / Time IV CONTRAST Allergy Severe SHORTNESS Uncoded 10/06/16 18:13 OF BREATH CAF Allergy Intermediate PALPITATION Uncoded 10/06/16 18:13 S - Medications Medications: Current Medications Acetaminophen (Tylenol 650 Mg Supp) 650 mg RC Q4H PRN PRN Reason: Fever >100.4 F Last Admin: 11/01/16 21:18 Dose: 650 mg Collagenase (Santyl) 1 gm TOP BID [facility] Last Admin: 11/22/16 18:20 Dose: 1 applic Al Hydrox/Mg Hydrox/Simethicone 30 ml/Diphenhydramine HCl 75 mg/Lidocaine 30 ml 0 ml PO Q2H PRN PRN Reason: Mouth/Throat Pain Last Admin: 11/07/16 09:00 Dose: 15 ml Diphenhydramine HCl (Benadryl) 50 mg IVP HS PRN PRN Reason: Insomnia Last Admin: 11/23/16 02:36 Dose: 50 mg Ergocalciferol (Drisdol 50,000 Intl Units Cap) 1 cap PO Q7D [facility] Last Admin: 11/19/16 18:04 Dose: Not Given Fentanyl (Duragesic) 1 patch TD Q72H [facility] Last Admin: 11/22/16 14:30 Dose: 1 patch Ferrous Sulfate (Feosol) 324 mg PO TID [facility] Last Admin: 11/22/16 19:31 Dose: 324 mg Furosemide (Lasix) 20 mg IVP Q12 [facility] Last Admin: 11/23/16 11:13 Dose: Not Given Home Med (Home Med) 1 unit PO Q12H PRN PRN Reason: Inflammation Last Admin: 10/18/16 11:03 Dose: 1 unit Daptomycin 440 mg/ Sodium (Chloride) 100 mls @ 200 mls/hr IV Q24H [facility] Stop: 11/27/16 09:01 Last Admin: 11/22/16 11:36 Dose: 200 mls/hr Potassium Chloride 40 meq/ (Dextrose) 1,020 mls @ 60 mls/hr IV .Q17H [facility] Last Admin: 11/22/16 11:40 Dose: 60 mls/hr Micafungin Sodium 100 mg/ (Sodium Chloride) 100 mls @ 100 mls/hr IV DAILY [facility] PRN Reason: Protocol Stop: 11/28/16 10:01 Last Admin: 11/22/16 10:19 Dose: 100 mls/hr Dopamine HCl/Dextrose (Dopamine 400mg/250ml D5w) 400 mg in 250 mls @ 13.183 mls /hr IV .[id number] PRN; Protocol; 5 MCG/KG/MIN PRN Reason: TITRATE to SBP > 90 Magnesium Oxide (Mag-Ox) 400 mg PO BID [facility] Last Admin: 11/22/16 19:31 Dose: 400 mg Multi-Ingredient Ointment (Hydrophor Oint) 0 gm TOP Q6H PRN PRN Reason: Dry lip Multivitamins (Thera Tab) 1 tab PO 0800 [facility] Last Admin: 11/22/16 10:16 Dose: 1 tab Ondansetron HCl (Zofran Inj) 4 mg IVP Q4H PRN PRN Reason: Nausea/Vomiting Last Admin: 11/22/16 14:30 Dose: 4 mg Pantoprazole Sodium (Protonix Inj) 40 mg IVP Q12 [facility] Last Admin: 11/22/16 22:47 Dose: 40 mg Petrolatum (Desitin Maximum Strength Topical 40% Oint) 1 gm TOP Q4H PRN PRN Reason: Rash Last Admin: 10/23/16 22:39 Dose: 1 applic Potassium Chloride (K-Dur 20 Meq Er Tab) 40 meq PO DAILY [facility] Last Admin: 11/22/16 10:15 Dose: Not Given Propranolol HCl (Inderal La) 120 mg PO DAILY [facility] Sucralfate (Carafate Oral Susp) 1 gm PO BID [facility] Last Admin: 11/22/16 19:31 Dose: 1 gm Physical Exam - Constitutional Appears: Well, No Acute Distress - Head Exam Head Exam: ATRAUMATIC, NORMOCEPHALIC - Eye Exam Eye Exam: Normal appearance - ENT Exam ENT Exam: Mucous Membranes Moist - Respiratory Exam Respiratory Exam: Clear to Auscultation Bilateral, NORMAL BREATHING PATTERN. absent: Rales, Rhonchi, Wheezes, Respiratory Distress - Cardiovascular Exam Cardiovascular Exam: Tachycardia, REGULAR RHYTHM, +S1, +S2 - GI/Abdominal Exam GI & Abdominal Exam: Normal Bowel Sounds, Soft, Tenderness Additional comments: dressing clean, dry and intact. colostomy bag has dark stool. Patient is tender to palpitation - Extremities Exam Extremities exam: Positive for: pedal edema - Neurological Exam Neurological exam: Alert Additional comments: awake, oriented x2 Results - Vital Signs Recent Vital Signs: Last Vital Signs Temp 98.2 F 11/23/16 14:35 Pulse 92 H 11/23/16 14:35 Resp 20 11/23/16 14:35 BP 92/58 L 11/23/16 14:35 Pulse Ox 99 11/23/16 08:55 - Labs Result Diagrams: 11/23/16 07:00 11/23/16 07:00 Labs: Laboratory Results - last 24 hr 11/14/16 11/20/16 11/23/16 10:30 20:25 07:00 WBC RBC Hgb Hct MCV MCH MCHC RDW Plt Count MPV Gran % Lymph % (Auto) [place] % (Auto) Eos % (Auto) Baso % (Auto) Gran # Lymph # [place] # Eos # Baso # PT INR APTT pCO2 pO2 HCO3 ABG pH ABG Total CO2 ABG O2 Saturation ABG Base Excess ABG Potassium VBG pH VBG pCO2 VBG HCO3 VBG Total CO2 VBG O2 Sat (Calc) VBG Base Excess Glucose Lactate FiO2 Sodium 136 Potassium 4.6 Chloride 102 Carbon Dioxide 31 Anion Gap 8 L BUN 17 Creatinine 0.5 Est GFR ( Amer) > 60 Est GFR (Non-Af Amer) > 60 Random Glucose 114 H Calcium 7.5 L Magnesium 1.4 L Total Bilirubin 0.8 AST 12 L ALT 21 Alkaline Phosphatase 299 H Total Protein 4.6 L Albumin 1.8 L Globulin 2.7 Albumin/Globulin Ratio 0.7 L Arterial Blood Potassium Blood Type A POSITIVE Antibody Screen Negative Crossmatch See Detail See Detail BBK History Checked Patient has 11/23/16 11/23/16 11/23/16 07:00 09:30 11:15 WBC 5.3 RBC 2.26 L Hgb 7.4 L Hct 21.8 L MCV 96.5 MCH 32.7 MCHC 33.9 RDW 19.1 H Plt Count 135 MPV 12.1 H Gran % 74.2 H Lymph % (Auto) 15.2 L [place] % (Auto) 9.7 H Eos % (Auto) 0.9 L Baso % (Auto) 0.0 Gran # 3.96 Lymph # 0.8 L [place] # 0.5 Eos # 0.1 Baso # 0.00 PT 14.9 H INR 1.38 H APTT 26.5 pCO2 pO2 HCO3 ABG pH ABG Total CO2 ABG O2 Saturation ABG Base Excess ABG Potassium VBG pH VBG pCO2 VBG HCO3 VBG Total CO2 VBG O2 Sat (Calc) VBG Base Excess Glucose Lactate FiO2 Sodium Potassium Chloride Carbon Dioxide Anion Gap BUN Creatinine Est GFR ( Amer) Est GFR (Non-Af Amer) Random Glucose Calcium Magnesium Total Bilirubin AST ALT Alkaline Phosphatase Total Protein Albumin Globulin Albumin/Globulin Ratio Arterial Blood Potassium Blood Type A POSITIVE Antibody Screen Negative Crossmatch See Detail BBK History Checked Patient has 11/23/16 11/23/16 11:15 11:50 WBC RBC Hgb Hct MCV MCH MCHC RDW Plt Count MPV Gran % Lymph % (Auto) [place] % (Auto) Eos % (Auto) Baso % (Auto) Gran # Lymph # [place] # Eos # Baso # PT INR APTT pCO2 36 pO2 61 H 169.0 H HCO3 23.9 ABG pH 7.43 ABG Total CO2 25.0 ABG O2 Saturation 99.5 H ABG Base Excess -0.1 ABG Potassium 4.4 VBG pH 7.41 VBG pCO2 45.0 VBG HCO3 28.5 H VBG Total CO2 29.9 H VBG O2 Sat (Calc) 96 H VBG Base Excess 3.5 H Glucose 135 H 110 H Lactate 1.6 0.8 FiO2 21 28.0 Sodium 155.0 H 157.0 H Potassium Chloride 95.0 L 101.0 Carbon Dioxide Anion Gap BUN Creatinine Est GFR ( Amer) Est GFR (Non-Af Amer) Random Glucose Calcium Magnesium Total Bilirubin AST ALT Alkaline Phosphatase Total Protein Albumin Globulin Albumin/Globulin Ratio Arterial Blood Potassium 4.4 Blood Type Antibody Screen Crossmatch BBK History Checked Assessment & Plan - Assessment and Plan (Free Text) Assessment: 61 female with PMH of stage IV colon CA s/p colectomy reversal s/p FOLFOX-6 chemotherapy regimen x2 with Neulasta afterwards completed on 10/05/16, s/p XRT for sacral metastasis with 2 sites of GI bleed, upper and lower GI, s/p colectomy & Max consult for AMS and hypotension. BP responded to fluids, currently does not require pressers, patient respiratory status is stable does not require current intubation. Plan: Neuro - AMS possibly do to medication v sepsis v blood loss - awake, alert and oriented x2 - yesterday patient's BANK COURIER pump was increased by surgery for pain control - will stop all opioid medication - consider narcan cardio - hypotensive received IVF bolus - BP has improved - continue to monitor, repeat BP - maintain MAP>65 - hold BP medications pulm: - cxr showed no active disease - patient is saturating well - continuing to supplemental O2 to maintain SaO2>90 GI - ppx, protonix - s/p colectomy & Max - surgery following ID - patient was found to have fungemia, bacteremia - currently receiving daptomycine and micafungin rosalinda - stable - continue to monitor - replace electrolytes as needed heme/onc - hgb fell from 9.1 to 7.4 - patient has multiple prbc transfusions - consider prbc transfusion - upper and lower GI bleed - EGD/colonoscopy: Stricture at sigmoid colon from external pressure, with ulceration,many ulcers on esophagus - Stage IV metastatic colorectal cancer - hold further specific treatment for now due to complications - heme/onc following <Stacey Centeno MD - Last Filed: 11/23/16 15:52> Meds - Medications Medications: Current Medications Acetaminophen (Tylenol 650 Mg Supp) 650 mg RC Q4H PRN PRN Reason: Fever >100.4 F Last Admin: 11/01/16 21:18 Dose: 650 mg Collagenase (Santyl) 1 gm TOP BID [facility] Last Admin: 11/22/16 18:20 Dose: 1 applic Al Hydrox/Mg Hydrox/Simethicone 30 ml/Diphenhydramine HCl 75 mg/Lidocaine 30 ml 0 ml PO Q2H PRN PRN Reason: Mouth/Throat Pain Last Admin: 11/07/16 09:00 Dose: 15 ml Diphenhydramine HCl (Benadryl) 50 mg IVP HS PRN PRN Reason: Insomnia Last Admin: 11/23/16 02:36 Dose: 50 mg Ergocalciferol (Drisdol 50,000 Intl Units Cap) 1 cap PO Q7D [facility] Last Admin: 11/19/16 18:04 Dose: Not Given Fentanyl (Duragesic) 1 patch TD Q72H [facility] Last Admin: 11/22/16 14:30 Dose: 1 patch Ferrous Sulfate (Feosol) 324 mg PO TID [facility] Last Admin: 11/22/16 19:31 Dose: 324 mg Furosemide (Lasix) 20 mg IVP Q12 [facility] Last Admin: 11/23/16 11:13 Dose: Not Given Home Med (Home Med) 1 unit PO Q12H PRN PRN Reason: Inflammation Last Admin: 10/18/16 11:03 Dose: 1 unit Daptomycin 440 mg/ Sodium (Chloride) 100 mls @ 200 mls/hr IV Q24H [facility] Stop: 11/27/16 09:01 Last Admin: 11/22/16 11:36 Dose: 200 mls/hr Potassium Chloride 40 meq/ (Dextrose) 1,020 mls @ 60 mls/hr IV .Q17H [facility] Last Admin: 11/22/16 11:40 Dose: 60 mls/hr Micafungin Sodium 100 mg/ (Sodium Chloride) 100 mls @ 100 mls/hr IV DAILY [facility] PRN Reason: Protocol Stop: 11/28/16 10:01 Last Admin: 11/22/16 10:19 Dose: 100 mls/hr Dopamine HCl/Dextrose (Dopamine 400mg/250ml D5w) 400 mg in 250 mls @ 13.183 mls /hr IV .[id number] PRN; Protocol; 5 MCG/KG/MIN PRN Reason: TITRATE to SBP > 90 Magnesium Oxide (Mag-Ox) 400 mg PO BID [facility] Last Admin: 11/22/16 19:31 Dose: 400 mg Multi-Ingredient Ointment (Hydrophor Oint) 0 gm TOP Q6H PRN PRN Reason: Dry lip Multivitamins (Thera Tab) 1 tab PO 0800 [facility] Last Admin: 11/22/16 10:16 Dose: 1 tab Ondansetron HCl (Zofran Inj) 4 mg IVP Q4H PRN PRN Reason: Nausea/Vomiting Last Admin: 11/22/16 14:30 Dose: 4 mg Pantoprazole Sodium (Protonix Inj) 40 mg IVP Q12 [facility] Last Admin: 11/22/16 22:47 Dose: 40 mg Petrolatum (Desitin Maximum Strength Topical 40% Oint) 1 gm TOP Q4H PRN PRN Reason: Rash Last Admin: 10/23/16 22:39 Dose: 1 applic Potassium Chloride (K-Dur 20 Meq Er Tab) 40 meq PO DAILY [facility] Last Admin: 11/22/16 10:15 Dose: Not Given Propranolol HCl (Inderal La) 120 mg PO DAILY [facility] Sucralfate (Carafate Oral Susp) 1 gm PO BID [facility] Last Admin: 11/22/16 19:31 Dose: 1 gm Results - Vital Signs Recent Vital Signs: Last Vital Signs Temp 98.2 F 11/23/16 15:20 Pulse 92 H 11/23/16 15:20 Resp 20 11/23/16 15:20 BP 100/62 11/23/16 15:20 Pulse Ox 99 11/23/16 08:55 - Labs Result Diagrams: 11/23/16 07:00 11/23/16 07:00 Labs: Laboratory Results - last 24 hr 11/14/16 11/20/16 11/23/16 10:30 20:25 07:00 WBC RBC Hgb Hct MCV MCH MCHC RDW Plt Count MPV Gran % Lymph % (Auto) [place] % (Auto) Eos % (Auto) Baso % (Auto) Gran # Lymph # [place] # Eos # Baso # PT INR APTT pCO2 pO2 HCO3 ABG pH ABG Total CO2 ABG O2 Saturation ABG Base Excess ABG Potassium VBG pH VBG pCO2 VBG HCO3 VBG Total CO2 VBG O2 Sat (Calc) VBG Base Excess Glucose Lactate FiO2 Sodium 136 Potassium 4.6 Chloride 102 Carbon Dioxide 31 Anion Gap 8 L BUN 17 Creatinine 0.5 Est GFR ( Amer) > 60 Est GFR (Non-Af Amer) > 60 Random Glucose 114 H Calcium 7.5 L Magnesium 1.4 L Total Bilirubin 0.8 AST 12 L ALT 21 Alkaline Phosphatase 299 H Total Protein 4.6 L Albumin 1.8 L Globulin 2.7 Albumin/Globulin Ratio 0.7 L Arterial Blood Potassium Blood Type A POSITIVE Antibody Screen Negative Crossmatch See Detail See Detail BBK History Checked Patient has bt 11/23/16 11/23/16 11/23/16 07:00 09:30 11:15 WBC 5.3 RBC 2.26 L Hgb 7.4 L Hct 21.8 L MCV 96.5 MCH 32.7 MCHC 33.9 RDW 19.1 H Plt Count 135 MPV 12.1 H Gran % 74.2 H Lymph % (Auto) 15.2 L [place] % (Auto) 9.7 H Eos % (Auto) 0.9 L Baso % (Auto) 0.0 Gran # 3.96 Lymph # 0.8 L [place] # 0.5 Eos # 0.1 Baso # 0.00 PT 14.9 H INR 1.38 H APTT 26.5 pCO2 pO2 HCO3 ABG pH ABG Total CO2 ABG O2 Saturation ABG Base Excess ABG Potassium VBG pH VBG pCO2 VBG HCO3 VBG Total CO2 VBG O2 Sat (Calc) VBG Base Excess Glucose Lactate FiO2 Sodium Potassium Chloride Carbon Dioxide Anion Gap BUN Creatinine Est GFR ( Amer) Est GFR (Non-Af Amer) Random Glucose Calcium Magnesium Total Bilirubin AST ALT Alkaline Phosphatase Total Protein Albumin Globulin Albumin/Globulin Ratio Arterial Blood Potassium Blood Type A POSITIVE Antibody Screen Negative Crossmatch See Detail BBK History Checked Patient has bt 11/23/16 11/23/16 11:15 11:50 WBC RBC Hgb Hct MCV MCH MCHC RDW Plt Count MPV Gran % Lymph % (Auto) [place] % (Auto) Eos % (Auto) Baso % (Auto) Gran # Lymph # [place] # Eos # Baso # PT INR APTT pCO2 36 pO2 61 H 169.0 H HCO3 23.9 ABG pH 7.43 ABG Total CO2 25.0 ABG O2 Saturation 99.5 H ABG Base Excess -0.1 ABG Potassium 4.4 VBG pH 7.41 VBG pCO2 45.0 VBG HCO3 28.5 H VBG Total CO2 29.9 H VBG O2 Sat (Calc) 96 H VBG Base Excess 3.5 H Glucose 135 H 110 H Lactate 1.6 0.8 FiO2 21 28.0 Sodium 155.0 H 157.0 H Potassium Chloride 95.0 L 101.0 Carbon Dioxide Anion Gap BUN Creatinine Est GFR ( Amer) Est GFR (Non-Af Amer) Random Glucose Calcium Magnesium Total Bilirubin AST ALT Alkaline Phosphatase Total Protein Albumin Globulin Albumin/Globulin Ratio Arterial Blood Potassium 4.4 Blood Type Antibody Screen Crossmatch BBK History Checked Attending/Attestation - Attestation I have personally seen and examined this patient.: Yes I have fully participated in the care of the patient.: Yes I have reviewed all pertinent clinical information: Yes Notes (Text): 11/23/16 15:52 Please refer to attending note
--- NOTE | 2016-11-23 15:46 | CP.PCM.PN ---
Subjective - Date & Time of Evaluation Date of Evaluation: 11/23/16 Time of Evaluation: 11:10 - Subjective Subjective: Comfortable, not in distress, afebrile, but still feels weak. Objective - Vital Signs/Intake and Output Vital Signs (last 24 hours): Temp Pulse Resp BP Pulse Ox 97.8 F 83 18 144/88 100 11/21/16 16:00 11/21/16 16:00 11/21/16 16:00 11/21/16 22:55 11/21/16 16:00 Intake and Output: 11/21/16 11/22/16 18:59 06:59 Intake Total 560 360 Output Total 1100 400 Balance -540 -40 - Medications Medications: Current Medications Acetaminophen (Tylenol 650 Mg Supp) 650 mg RC Q4H PRN PRN Reason: Fever >100.4 F Last Admin: 11/01/16 21:18 Dose: 650 mg Collagenase (Santyl) 1 gm TOP BID [facility] Last Admin: 11/21/16 23:03 Dose: 1 applic Al Hydrox/Mg Hydrox/Simethicone 30 ml/Diphenhydramine HCl 75 mg/Lidocaine 30 ml 0 ml PO Q2H PRN PRN Reason: Mouth/Throat Pain Last Admin: 11/07/16 09:00 Dose: 15 ml Diphenhydramine HCl (Benadryl) 25 mg IVP Q4H PRN PRN Reason: Allergy symptoms Last Admin: 11/21/16 00:37 Dose: 25 mg Ergocalciferol (Drisdol 50,000 Intl Units Cap) 1 cap PO Q7D [facility] Last Admin: 11/19/16 18:04 Dose: Not Given Fentanyl (Duragesic) 1 patch TD Q72H [facility] Last Admin: 11/19/16 15:25 Dose: 1 patch Ferrous Sulfate (Feosol) 324 mg PO TID [facility] Last Admin: 11/21/16 17:32 Dose: 324 mg Furosemide (Lasix) 20 mg IVP Q12 [facility] Last Admin: 11/21/16 22:55 Dose: 20 mg Home Med (Home Med) 1 unit PO Q12H PRN PRN Reason: Inflammation Last Admin: 10/18/16 11:03 Dose: 1 unit Hydromorphone HCl (Dilaudid-Hp 1 Mg/Ml Web Administrator) 25 mg IV PRN PRN PRN Reason: Pain, severe (8-10) Stop: 11/22/16 09:00 Daptomycin 440 mg/ Sodium (Chloride) 100 mls @ 200 mls/hr IV Q24H [facility] Stop: 11/27/16 09:01 Last Admin: 11/21/16 11:29 Dose: 200 mls/hr Hydromorphone HCl (Dilaudid-Hp 1 Mg/Ml Web Administrator) 25 mls @ 0.5 mls/hr IV PRN PRN; Protocol 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 Last Admin: 11/21/16 22:55 Dose: 0.5 mls/hr Potassium Chloride 40 meq/ (Dextrose) 1,020 mls @ 60 mls/hr IV .Q17H [facility] Last Admin: 11/21/16 23:03 Dose: 60 mls/hr Micafungin Sodium 100 mg/ (Sodium Chloride) 100 mls @ 100 mls/hr IV DAILY [facility] PRN Reason: Protocol Stop: 11/28/16 10:01 Last Admin: 11/21/16 13:10 Dose: 100 mls/hr Multi-Ingredient Ointment (Hydrophor Oint) 0 gm TOP Q6H PRN PRN Reason: Dry lip Multivitamins (Thera Tab) 1 tab PO 0800 [facility] Last Admin: 11/21/16 10:18 Dose: 1 tab Ondansetron HCl (Zofran Inj) 4 mg IVP Q4H PRN PRN Reason: Nausea/Vomiting Last Admin: 11/20/16 18:53 Dose: 4 mg Pantoprazole Sodium (Protonix Inj) 40 mg IVP Q12 [facility] Last Admin: 11/21/16 22:55 Dose: 40 mg Petrolatum (Desitin Maximum Strength Topical 40% Oint) 1 gm TOP Q4H PRN PRN Reason: Rash Last Admin: 10/23/16 22:39 Dose: 1 applic Potassium Chloride (K-Dur 20 Meq Er Tab) 40 meq PO DAILY [facility] Last Admin: 11/21/16 10:19 Dose: 40 meq Propranolol HCl (Inderal La) 120 mg PO DAILY [facility] Last Admin: 11/21/16 10:17 Dose: 120 mg Sucralfate (Carafate Oral Susp) 1 gm PO BID [facility] Last Admin: 11/21/16 17:32 Dose: 1 gm Valganciclovir (Valcyte) 900 mg PO DAILY [facility] Last Admin: 11/14/16 11:09 Dose: Not Given - Labs Labs: 11/21/16 11:00 11/21/16 11:00 PT 12.6 Seconds (9.9-11.8) H 11/17/16 06:00 INR 1.17 (0.93-1.08) H 11/17/16 06:00 APTT 32.9 Seconds (23.7-30.8) H 11/17/16 06:00 - Constitutional Appears: Non-toxic, No Acute Distress - Head Exam Head Exam: NORMAL INSPECTION - Neck Exam Neck Exam: absent: Meningismus - Respiratory Exam Respiratory Exam: Decreased Breath Sounds - Cardiovascular Exam Cardiovascular Exam: +S1, +S2 - GI/Abdominal Exam GI & Abdominal Exam: Soft. 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, probably from port-a-cath S/P removal POD # 8 (since the patient had been on TPN through the port) Methicillin-resistant coagulase negative staph in repeat blood cx bottle, consider bacteremia R/O secondary to PICC line R/O contamination (since only 1 of 4 bottles were positive for the organism) Partial small bowel obstruction, persistent with colonic stricture S/P exploratory laparotomy, lysis of adhesions, repair of small bowel enterotomy and partial sigmoidectomy with end-colostomy POD #2 Acute stomatitis and mucositis, as well as esophageal ulcers (esophagitis) and enteritis - no CMV noted on biopsy sample of the esophageal ulcers - consider Susy Esophagitis Neutropenia probably from chemotherapy, resolved HTN 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
[2016-11-23] MEDS: Sucralfate 1 gm/10 ml Oral Susp UD PO SCH ×2 (16:14→17:59)
[2016-11-23] MEDS: Propranolol 60 mg ER Cap PO SCH (16:16)
[2016-11-23] MEDS: Potassium Chloride 20 mEq ER Tab PO SCH (16:17)
[2016-11-23] MEDS: Magnesium Oxide 400 mg Tab UD PO SCH ×2 (16:17→18:01)
[2016-11-23] MEDS ORDERED: Potassium Chloride 40 MEQ in Dextrose 5%/0.9% NS 1,000 ML IV SCH (17:30)
[2016-11-23] MEDS: HYDROmorphone 1 mg/ml ISec IVP PRN ×3 (17:53→23:53)
[2016-11-23] MEDS: Collagenase 250 Units/gm Ointment(30 gm) TOP SCH (18:02)
[2016-11-23] MEDS: Multivitamin Therapeutic Tab PO SCH (18:03)
[2016-11-23 18:43] LABS: ALBUMIN 2.4 g/dL (3.0-4.8); ALT/SGPT 30 U/L (7-56); AST/SGOT 15 U/L (15-39); BLOOD UREA NITROGEN 22 mg/dL (7-21); CALCIUM 7.8 mg/dL (8.4-10.5); GFR AFRICAN-AMERICAN > 60; GFR NON-AFRICAN AMERICAN > 60
[2016-11-23 18:46] LABS: INR 1.26 (0.93-1.08); PARTIAL THROMBOPLASTIN TIME 34.5 Seconds (23.7-30.8); PROTHROMBIN TIME 13.6 Seconds (9.9-11.8)
[2016-11-23 19:11] LABS: EOS % 0.2 % (1.5-5.0); GRAN # 4.19 (1.4-6.5); GRAN % 86.9 % (50.0-68.0); LYMPH # 0.4 (1.2-3.4); LYMPH % 7.7 % (22.0-35.0); MEAN CELL VOLUME 91.7 fL (80.0-105.0); MEAN CORPUSCULAR HEMOGLOBIN 30.6 pg (25.0-35.0); MEAN CORPUSCULAR HGB CONC 33.3 g/dl (31.0-37.0); MEAN PLATELET VOLUME 11.9 fl (7.0-11.0); MONO # 0.3 (0.1-0.6); MONO % 5.2 % (1.0-6.0); PLATELET COUNT 100 10^3/uL (120.0-450.0); RBC 2.16 10^6/uL (3.5-6.1); RED CELL DISTRIBUTION WIDTH 15.5 % (11.5-14.5); WHITE BLOOD COUNT 4.8 10^3/ul (4.5-11.0)
[2016-11-23 19:13] LABS: HEMOGLOBIN 6.6 gm/dL (12.0-16.0)
--- NOTE | 2016-11-23 21:59 | PN ---
DATE: 11/23/2016 SUBJECTIVE: The patient is seen lying in bed. She is in lot of lower abdominal pain. She is moaning. She is in distress. PHYSICAL EXAMINATION VITAL SIGNS: Blood pressure 74/48, heart rate 103, respiratory rate 18, temperature 97.8. HEENT: Normocephalic, symmetrical, positive pallor. NECK: Supple. No JVD. LUNGS: Bilateral equal air entry, bilaterally equal expansion. CARDIAC: S1 and S2, regular rate and rhythm, no murmur, and no rub. ABDOMEN: Obese, distended, tenderness in the lower abdomen, positive colostomy, bowel tones are present. EXTREMITIES: A 2+ pitting edema of the lower extremities. INTAKE AND OUTPUT: 2225/4450? LABORATORY DATA: WBC 5.3, hemoglobin 7.4, hematocrit 22, platelets 135,000. Sodium 136, potassium 4.6, chloride 102, CO2 31, BUN 17, creatinine 0.5, glucose 114, calcium 7.5, albumin 1.8, corrected calcium is 9.0, magnesium 1.4. CT scan of the abdomen showed recent postoperative changes in the left lower quadrant with an ostomy, surgical drain in pelvis. Mildly dilated loops of bowel. Nuclear bleeding scan done on 11/21/2016, no evidence of GI bleeding. CURRENT MEDICATIONS: Benadryl, Carafate, daptomycin, dopamine, Drisdol, potassium 40 mEq daily, Lasix 20 mg IV q.12., magnesium oxide, micafungin, Protonix, Tylenol, Zofran, and albumin. ASSESSMENT: 1. Altered mental status, hypotension, status post rapid response yesterday. 2. Severe anemia. 3. Stage IV colon cancer. 4. Status post palliative colostomy. 5. Intractable pain. 6. Fungemia. 7. Methicillin-resistant Staphylococcus aureus bacteremia. PLAN: 1. Continue antibiotics as per infectious disease. 2. Continue pressor support. 3. Continue IV fluids. 4. Prognosis is grim. Adele Griffin MD
[2016-11-23] MEDS: Micafungin 100 MG in Sodium Chloride 0.9% 100 ML IV SCH (22:08)
--- NOTE | 2016-11-23 22:55 | PN ---
DATE: 11/23/2016 REASON FOR THE CONSULTATION: Tachycardia. BRIEF CLINICAL HISTORY: This is a 61-year-old female with past medical history significant for colon cancer, status post colostomy. This morning, low blood pressure, does not feel good, the rapid response just now. *------* blood pressure 70. Hemoglobin 9. She is in the process of being transfused. The patient is awake and alert. Heart rate 112. PHYSICAL EXAMINATION VITAL SIGNS: Temperature afebrile, heart rate 100, and blood pressure now is 100/70. HEENT: PERRLA, EOM intact. NECK: Supple. No carotid bruit or thyromegaly. CHEST: Clear to auscultation. HEART: S1 and S2, regular. ABDOMEN: Soft. Colostomy. IMPRESSION: A 61-year-old female with past medical history significant for colon cancer, partial obstruction, status post colostomy, status post exploratory laparotomy and lysis of adhesions. Postop course is complicated with drop in H and H, is status post multiple transfusions. Yesterday, hemoglobin was 9.1, today hemoglobin is pending. Today, lab is pending. PLAN: Follow up H and H. If it goes below 9, consider packed RBC transfusion. Also, we will give 2 units of IV albumin to increase her blood pressure. Hold Inderal if the pressure is below 120, with holding parameters. Overall, the patient's condition is critical. Long-term prognosis is guarded. We will follow with you. Thank you Dr. Hendricks for opportunity in taking care of the patient, Arthur Rehman. Sherrell Busby MD
[2016-11-24] MEDS: HYDROmorphone 1 mg/ml ISec IVP PRN ×7 (04:39→23:14)
[2016-11-24 08:12] LABS: ALBUMIN 2.1 g/dL (3.0-4.8); ALT/SGPT 28 U/L (7-56); AST/SGOT 10 U/L (15-39); BLOOD UREA NITROGEN 22 mg/dL (7-21); CALCIUM 7.7 mg/dL (8.4-10.5); GFR AFRICAN-AMERICAN > 60; GFR NON-AFRICAN AMERICAN > 60; MAGNESIUM 1.7 mg/dL (1.7-2.2)
[2016-11-24 08:59] LABS: BASO # 0.01 K/mm3 (0.0-2.0); BASO % 0.3 % (0.0-3.0); EOS % 0.3 % (1.5-5.0); GRAN # 2.69 (1.4-6.5); GRAN % 74.9 % (50.0-68.0); LYMPH # 0.4 (1.2-3.4); MEAN CELL VOLUME 89.4 fL (80.0-105.0); MEAN CORPUSCULAR HEMOGLOBIN 30.5 pg (25.0-35.0); MEAN CORPUSCULAR HGB CONC 34.1 g/dl (31.0-37.0); MEAN PLATELET VOLUME 12.1 fl (7.0-11.0); MONO # 0.5 (0.1-0.6); MONO % 12.5 % (1.0-6.0); PLATELET COUNT 94 10^3/uL (120.0-450.0); RBC 2.36 10^6/uL (3.5-6.1); RED CELL DISTRIBUTION WIDTH 14.9 % (11.5-14.5); WHITE BLOOD COUNT 3.6 10^3/ul (4.5-11.0)
[2016-11-24 09:02] LABS: HEMOGLOBIN 7.2 gm/dL (12.0-16.0)
[2016-11-24] MEDS ORDERED: DiphenhydrAMINE 50 mg/ml Inj IVP ONE (09:28)
[2016-11-24 10:16] LABS: INR 1.21 (0.93-1.08); PARTIAL THROMBOPLASTIN TIME 31.2 Seconds (23.7-30.8); PROTHROMBIN TIME 13.1 Seconds (9.9-11.8)
--- NOTE | 2016-11-24 10:16 | CP.PCM.PN ---
<RobynNatali - Last Filed: 11/24/16 10:06> Subjective - Date & Time of Evaluation Date of Evaluation: 11/24/16 Time of Evaluation: 10:24 - Subjective Subjective: PT S&E at bedside. Overnight 1 PRBC, 2 FFP given. Patient is in a better disposition than yesterday. Patient has more energy and is tolerating pain better. She asked for her pain medication twice last night. Patient denies F/C, N/V and states that she has eaten a little bit yesterday. Objective - Vital Signs/Intake and Output Vital Signs (last 24 hours): Temp Pulse Resp BP Pulse Ox 97.9 F 72 20 128/70 98 11/24/16 07:51 11/24/16 07:51 11/24/16 07:51 11/24/16 07:51 11/24/16 07:51 Intake and Output: 11/24/16 11/24/16 06:59 18:59 Intake Total 1725 0 Output Total 220 1030 Balance 1505 -1030 - Medications Medications: Current Medications Acetaminophen (Tylenol 650 Mg Supp) 650 mg RC Q4H PRN PRN Reason: Fever >100.4 F Last Admin: 11/01/16 21:18 Dose: 650 mg Collagenase (Santyl) 1 gm TOP BID [facility] Last Admin: 11/23/16 18:02 Dose: Not Given Diphenhydramine HCl (Benadryl) 50 mg IVP HS PRN PRN Reason: Insomnia Last Admin: 11/23/16 02:36 Dose: 50 mg Ergocalciferol (Drisdol 50,000 Intl Units Cap) 1 cap PO Q7D [facility] Last Admin: 11/19/16 18:04 Dose: Not Given Fentanyl (Duragesic) 1 patch TD Q72H [facility] Last Admin: 11/22/16 14:30 Dose: 1 patch Ferrous Sulfate (Feosol) 324 mg PO TID [facility] Last Admin: 11/23/16 18:00 Dose: Not Given Furosemide (Lasix) 20 mg IVP Q12 [facility] Last Admin: 11/23/16 21:59 Dose: 20 mg Home Med (Home Med) 1 unit PO Q12H PRN PRN Reason: Inflammation Last Admin: 10/18/16 11:03 Dose: 1 unit Hydromorphone HCl (Dilaudid) 1 mg IVP Q1H PRN PRN Reason: Pain, severe (8-10) Last Admin: 11/24/16 04:39 Dose: 1 mg Daptomycin 440 mg/ Sodium (Chloride) 100 mls @ 200 mls/hr IV Q24H [facility] Stop: 11/27/16 09:01 Last Admin: 11/22/16 11:36 Dose: 200 mls/hr Micafungin Sodium 100 mg/ (Sodium Chloride) 100 mls @ 100 mls/hr IV DAILY [facility] PRN Reason: Protocol Stop: 11/28/16 10:01 Last Admin: 11/23/16 22:08 Dose: Not Given Potassium Chloride 40 meq/ (Dextrose/Sodium Chloride) 1,020 mls @ 80 mls/hr IV .[id number] [facility] Last Admin: 11/24/16 05:49 Dose: 80 mls/hr Cefepime HCl (Maxipime 1gm) 1 gm in 100 mls @ 100 mls/hr IVPB Q12 [facility] PRN Reason: Protocol Magnesium Oxide (Mag-Ox) 400 mg PO BID [facility] Last Admin: 11/23/16 18:01 Dose: Not Given Multi-Ingredient Ointment (Hydrophor Oint) 0 gm TOP Q6H PRN PRN Reason: Dry lip Multivitamins (Thera Tab) 1 tab PO 0800 [facility] Last Admin: 11/23/16 18:03 Dose: Not Given Ondansetron HCl (Zofran Inj) 4 mg IVP Q4H PRN PRN Reason: Nausea/Vomiting Last Admin: 11/24/16 00:05 Dose: 4 mg Pantoprazole Sodium (Protonix Inj) 40 mg IVP Q12 [facility] Last Admin: 11/23/16 22:03 Dose: 40 mg Petrolatum (Desitin Maximum Strength Topical 40% Oint) 1 gm TOP Q4H PRN PRN Reason: Rash Last Admin: 10/23/16 22:39 Dose: 1 applic Potassium Chloride (K-Dur 20 Meq Er Tab) 40 meq PO DAILY [facility] Last Admin: 11/23/16 16:17 Dose: Not Given Propranolol HCl (Inderal La) 120 mg PO DAILY [facility] Last Admin: 11/23/16 16:16 Dose: Not Given Sucralfate (Carafate Oral Susp) 1 gm PO BID [facility] Last Admin: 11/23/16 17:59 Dose: Not Given - Labs Labs: 11/24/16 07:53 11/24/16 07:53 PT 13.6 Seconds (9.9-11.8) H 11/23/16 18:31 INR 1.26 (0.93-1.08) H 11/23/16 18:31 APTT 34.5 Seconds (23.7-30.8) H 11/23/16 18:31 - Constitutional Appears: Chronically Ill - Head Exam Head Exam: NORMAL INSPECTION - Eye Exam Eye Exam: EOMI, Normal appearance Pupil Exam: NORMAL ACCOMODATION - ENT Exam ENT Exam: Mucous Membranes Moist - Neck Exam Neck Exam: Full ROM, Normal Inspection. absent: Tenderness - Respiratory Exam Respiratory Exam: Clear to Ausculation Bilateral, NORMAL BREATHING PATTERN. absent: Accessory Muscle Use, Rhonchi, Wheezes, Respiratory Distress - Cardiovascular Exam Cardiovascular Exam: REGULAR RHYTHM. absent: Bradycardia, Tachycardia - GI/Abdominal Exam GI & Abdominal Exam: Soft, Tenderness. absent: Firm, Guarding, Rigid, Pulsatile Mass, Rebound - Neurological Exam Neurological Exam: Alert, Awake, Normal Gait, Oriented x3 - Psychiatric Exam Psychiatric exam: Normal Affect, Normal Mood - Skin Skin Exam: Dry, Intact, Pallor Additional comments: laparotomy site c/d/i, no signs of induration, infection, drainage. - Additional Findings Additional findings: 12H output overnight: Salazar 750 Power 180, serous Colostomy 300 melena, less dark Assessment and Plan - Assessment and Plan (Free Text) Assessment: 61 F with Colon CA, GI bleed, sacral decub s/p Exlap, NATE, Marquita's POD #7. Plan: c/w current antibiotic treatment f/u today's enteroscopy per GI strict I/Os f/u H/Hs OOBTC/PT/Rehab plan for supplemental diet (PPN) c/w current medical management (volume expansion with albumin, FFP and PRBC) <Yoan Mccracken - Last Filed: 12/02/16 23:58> Objective - Vital Signs/Intake and Output Vital Signs (last 24 hours): Temp Pulse Resp BP Pulse Ox 97.8 F 101 H 18 170/89 H 100 12/02/16 16:00 12/02/16 16:00 12/02/16 16:00 12/02/16 16:00 12/02/16 16:00 Intake and Output: 12/02/16 12/03/16 18:59 06:59 Intake Total 120 Output Total 450 600 Balance -450 -480 - Medications Medications: Current Medications Acetaminophen (Tylenol 650 Mg Supp) 650 mg RC Q4H PRN PRN Reason: Fever >100.4 F Last Admin: 11/01/16 21:18 Dose: 650 mg Al Hydrox/Mg Hydrox/Simethicone 30 ml/Diphenhydramine HCl 75 mg/Lidocaine 30 ml 0 ml PO QID [facility] Last Admin: 12/02/16 21:01 Dose: Not Given Diphenhydramine HCl (Benadryl) 50 mg IVP HS PRN PRN Reason: Insomnia Last Admin: 11/27/16 01:00 Dose: 50 mg Ergocalciferol (Drisdol 50,000 Intl Units Cap) 1 cap PO Q7D [facility] Last Admin: 11/19/16 18:04 Dose: Not Given Ferrous Sulfate (Feosol) 324 mg PO TID [facility] Last Admin: 12/02/16 18:16 Dose: Not Given Fluconazole (Diflucan) 200 mg PO DAILY [facility] PRN Reason: Protocol Stop: 12/12/16 10:01 Last Admin: 12/02/16 09:44 Dose: Not Given Home Med (Home Med) 1 unit PO Q12H PRN PRN Reason: Inflammation Last Admin: 10/18/16 11:03 Dose: 1 unit Hydralazine HCl (Apresoline) 10 mg IVP Q4H PRN PRN Reason: Systolic Blood Pressure Hydromorphone HCl (Dilaudid) 1 mg IVP Q1H PRN PRN Reason: Pain, moderate (4-7) Last Admin: 12/02/16 21:06 Dose: 1 mg Levetiracetam (Keppra 500mg Ivpb) 500 mg in 100 mls @ 400 mls/hr IV Q12 [facility] Last Admin: 12/02/16 21:06 Dose: 400 mls/hr Potassium Chloride/Dextrose (Potassium Chl 40 Meq In D5w) 1,000 mls @ 60 mls/ hr IV .[id number] [facility] Last Admin: 12/02/16 18:17 Dose: Not Given Magnesium Hydroxide (Milk Of Magnesia) 30 ml PO DAILY PRN PRN Reason: skin irritation Last Admin: 12/02/16 14:09 Dose: 30 ml Magnesium Oxide (Mag-Ox) 400 mg PO BID [facility] Last Admin: 12/02/16 18:16 Dose: Not Given Multi-Ingredient Ointment (Hydrophor Oint) 0 gm TOP Q6H PRN PRN Reason: Dry lip Multivitamins (Thera Tab) 1 tab PO 0800 [facility] Last Admin: 12/02/16 08:10 Dose: Not Given Propranolol HCl (Inderal La) 120 mg PO DAILY [facility] Last Admin: 12/02/16 09:44 Dose: Not Given Sucralfate (Carafate Oral Susp) 1 gm PO BID [facility] Last Admin: 12/02/16 18:16 Dose: Not Given - Labs Labs: 12/02/16 06:00 12/02/16 06:00 PT 12.9 Seconds (9.9-11.8) H 12/02/16 06:00 INR 1.19 (0.93-1.08) H 12/02/16 06:00 APTT 32.9 Seconds (23.7-30.8) H 12/02/16 06:00 Assessment and Plan - Assessment and Plan (Free Text) Plan: Patient was seen and examined by me. I agree with assessment and plan as per resident's note.
[2016-11-24] MEDS: Propranolol 60 mg ER Cap PO SCH (10:31)
[2016-11-24] MEDS: Micafungin 100 MG in Sodium Chloride 0.9% 100 ML IV SCH (10:35)
[2016-11-24] MEDS: Multivitamin Therapeutic Tab PO SCH (10:38)
[2016-11-24] MEDS: Potassium Chloride 20 mEq ER Tab PO SCH (10:39)
[2016-11-24] MEDS: Collagenase 250 Units/gm Ointment(30 gm) TOP SCH (10:43)
[2016-11-24] MEDS: Sucralfate 1 gm/10 ml Oral Susp UD PO SCH ×2 (10:43→19:09)
[2016-11-24] MEDS: Magnesium Oxide 400 mg Tab UD PO SCH ×2 (10:43→17:16)
--- NOTE | 2016-11-24 11:10 | CP.PCM.CON ---
History of Present Illness - History of Present Illness History of Present Illness: PGY-2 ICU consult note 61 female with PMH of stage IV colon CA with sacral metastasis s/p colectomy and max consulted for GI bleed. Patient has long hospital course completed with bactremia and fungemia. Patient continues to have melena in colostomy bag, she has received multiple pRBC transfusions. Patient is awake, alert, sitting comfortably in bed. 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) - MUSCULOSKELETAL/RHEUMATOLOGICAL Hx Musculoskeletal Disorders: Yes Hx Back Pain: Yes Hx Falls: No - GASTROINTESTINAL Hx Gastroesophageal Reflux: Yes - GENITOURINARY/GYNECOLOGICAL Hx Genitourinary Disorders: Yes Hx Urinary Tract Infection: Yes - PSYCHIATRIC Hx Psychophysiologic Disorder: Yes Hx Anxiety: Yes Hx Substance Use: No - SURGICAL HISTORY Hx Surgeries: Yes - ANESTHESIA Hx Anesthesia Reactions: No Hx Malignant Hyperthermia: No Meds Allergies/Adverse Reactions: Allergies Allergy/AdvReac Type Severity Reaction Status Date / Time IV CONTRAST Allergy Severe SHORTNESS Uncoded 10/06/16 18:13 OF BREATH CAF Allergy Intermediate PALPITATION Uncoded 10/06/16 18:13 S - Medications Medications: Current Medications Acetaminophen (Tylenol 650 Mg Supp) 650 mg RC Q4H PRN PRN Reason: Fever >100.4 F Last Admin: 11/01/16 21:18 Dose: 650 mg Collagenase (Santyl) 1 gm TOP BID [facility] Last Admin: 11/24/16 10:43 Dose: 1 applic Diphenhydramine HCl (Benadryl) 50 mg IVP HS PRN PRN Reason: Insomnia Last Admin: 11/23/16 02:36 Dose: 50 mg Ergocalciferol (Drisdol 50,000 Intl Units Cap) 1 cap PO Q7D [facility] Last Admin: 11/19/16 18:04 Dose: Not Given Fentanyl (Duragesic) 1 patch TD Q72H [facility] Last Admin: 11/22/16 14:30 Dose: 1 patch Ferrous Sulfate (Feosol) 324 mg PO TID [facility] Last Admin: 11/24/16 10:43 Dose: Not Given Furosemide (Lasix) 20 mg IVP Q12 [facility] Last Admin: 11/24/16 10:30 Dose: 20 mg Home Med (Home Med) 1 unit PO Q12H PRN PRN Reason: Inflammation Last Admin: 10/18/16 11:03 Dose: 1 unit Hydromorphone HCl (Dilaudid) 1 mg IVP Q1H PRN PRN Reason: Pain, severe (8-10) Last Admin: 11/24/16 10:25 Dose: 1 mg Daptomycin 440 mg/ Sodium (Chloride) 100 mls @ 200 mls/hr IV Q24H [facility] Stop: 11/27/16 09:01 Last Admin: 11/22/16 11:36 Dose: 200 mls/hr Micafungin Sodium 100 mg/ (Sodium Chloride) 100 mls @ 100 mls/hr IV DAILY [facility] PRN Reason: Protocol Stop: 11/28/16 10:01 Last Admin: 11/24/16 10:35 Dose: 100 mls/hr Potassium Chloride 40 meq/ (Dextrose/Sodium Chloride) 1,020 mls @ 80 mls/hr IV .[id number] [facility] Last Admin: 11/24/16 05:49 Dose: 80 mls/hr Cefepime HCl (Maxipime 1gm) 1 gm in 100 mls @ 100 mls/hr IVPB Q12 [facility] PRN Reason: Protocol Magnesium Oxide (Mag-Ox) 400 mg PO BID [facility] Last Admin: 11/24/16 10:43 Dose: Not Given Multi-Ingredient Ointment (Hydrophor Oint) 0 gm TOP Q6H PRN PRN Reason: Dry lip Multivitamins (Thera Tab) 1 tab PO 0800 [facility] Last Admin: 11/23/16 18:03 Dose: Not Given Ondansetron HCl (Zofran Inj) 4 mg IVP Q4H PRN PRN Reason: Nausea/Vomiting Last Admin: 11/24/16 00:05 Dose: 4 mg Pantoprazole Sodium (Protonix Inj) 40 mg IVP Q12 [facility] Last Admin: 11/24/16 10:30 Dose: 40 mg Petrolatum (Desitin Maximum Strength Topical 40% Oint) 1 gm TOP Q4H PRN PRN Reason: Rash Last Admin: 10/23/16 22:39 Dose: 1 applic Potassium Chloride (K-Dur 20 Meq Er Tab) 40 meq PO DAILY [facility] Last Admin: 11/23/16 16:17 Dose: Not Given Propranolol HCl (Inderal La) 120 mg PO DAILY [facility] Last Admin: 11/24/16 10:31 Dose: 120 mg Sucralfate (Carafate Oral Susp) 1 gm PO BID [facility] Last Admin: 11/24/16 10:43 Dose: Not Given Results - Vital Signs Recent Vital Signs: Last Vital Signs Temp 97.8 F 11/24/16 10:34 Pulse 69 11/24/16 10:34 Resp 16 11/24/16 10:34 BP 136/68 11/24/16 10:34 Pulse Ox 98 11/24/16 07:51 - Labs Result Diagrams: 11/24/16 07:53 11/24/16 07:53 Labs: Laboratory Results - last 24 hr 11/14/16 11/20/16 11/23/16 10:30 20:25 11:15 WBC RBC Hgb Hct MCV MCH MCHC RDW Plt Count MPV Gran % Lymph % (Auto) [place] % (Auto) Eos % (Auto) Baso % (Auto) Gran # Lymph # [place] # Eos # Baso # PT INR APTT pCO2 pO2 HCO3 ABG pH ABG Total CO2 ABG O2 Saturation ABG Base Excess ABG Potassium VBG pH VBG pCO2 VBG HCO3 VBG Total CO2 VBG O2 Sat (Calc) VBG Base Excess Sodium Chloride Glucose Lactate FiO2 Potassium Carbon Dioxide Anion Gap BUN Creatinine Est GFR ( Amer) Est GFR (Non-Af Amer) Random Glucose Calcium Magnesium Total Bilirubin AST ALT Alkaline Phosphatase Total Protein Albumin Globulin Albumin/Globulin Ratio Arterial Blood Potassium Blood Type A POSITIVE A POSITIVE Antibody Screen Negative Negative Crossmatch See Detail See Detail See Detail BBK History Checked Patient has bt Patient has bt 11/23/16 11/23/16 11/23/16 11:15 11:50 18:31 WBC 4.8 RBC 2.16 L Hgb 6.6 L* Hct 19.8 L* MCV 91.7 MCH 30.6 MCHC 33.3 RDW 15.5 H Plt Count 100 L MPV 11.9 H Gran % 86.9 H Lymph % (Auto) 7.7 L [place] % (Auto) 5.2 Eos % (Auto) 0.2 L Baso % (Auto) 0.0 Gran # 4.19 Lymph # 0.4 L [place] # 0.3 Eos # 0.0 Baso # 0.00 PT INR APTT pCO2 36 pO2 61 H 169.0 H HCO3 23.9 ABG pH 7.43 ABG Total CO2 25.0 ABG O2 Saturation 99.5 H ABG Base Excess -0.1 ABG Potassium 4.4 VBG pH 7.41 VBG pCO2 45.0 VBG HCO3 28.5 H VBG Total CO2 29.9 H VBG O2 Sat (Calc) 96 H VBG Base Excess 3.5 H Sodium 155.0 H 157.0 H Chloride 95.0 L 101.0 Glucose 135 H 110 H Lactate 1.6 0.8 FiO2 21 28.0 Potassium Carbon Dioxide Anion Gap BUN Creatinine Est GFR ( Amer) Est GFR (Non-Af Amer) Random Glucose Calcium Magnesium Total Bilirubin AST ALT Alkaline Phosphatase Total Protein Albumin Globulin Albumin/Globulin Ratio Arterial Blood Potassium 4.4 Blood Type Antibody Screen Crossmatch BBK History Checked 11/23/16 11/23/16 11/24/16 18:31 18:31 07:53 WBC RBC Hgb Hct MCV MCH MCHC RDW Plt Count MPV Gran % Lymph % (Auto) [place] % (Auto) Eos % (Auto) Baso % (Auto) Gran # Lymph # [place] # Eos # Baso # PT 13.6 H INR 1.26 H APTT 34.5 H pCO2 pO2 HCO3 ABG pH ABG Total CO2 ABG O2 Saturation ABG Base Excess ABG Potassium VBG pH VBG pCO2 VBG HCO3 VBG Total CO2 VBG O2 Sat (Calc) VBG Base Excess Sodium 139 141 Chloride 105 105 Glucose Lactate FiO2 Potassium 4.3 3.5 L Carbon Dioxide 27 28 Anion Gap 11 12 BUN 22 H 22 H Creatinine 0.6 0.5 Est GFR ( Amer) > 60 > 60 Est GFR (Non-Af Amer) > 60 > 60 Random Glucose 101 94 Calcium 7.8 L 7.7 L Magnesium 1.7 Total Bilirubin 1.4 H 0.8 AST 15 10 L ALT 30 28 Alkaline Phosphatase 196 H 175 H Total Protein 4.8 L 4.4 L Albumin 2.4 L 2.1 L Globulin 2.5 2.2 Albumin/Globulin Ratio 1.0 L 1.0 L Arterial Blood Potassium Blood Type Antibody Screen Crossmatch BBK History Checked 11/24/16 11/24/16 07:53 10:03 WBC 3.6 L D RBC 2.36 L Hgb 7.2 L Hct 21.1 L MCV 89.4 MCH 30.5 MCHC 34.1 RDW 14.9 H Plt Count 94 L MPV 12.1 H Gran % 74.9 H Lymph % (Auto) 12.0 L [place] % (Auto) 12.5 H Eos % (Auto) 0.3 L Baso % (Auto) 0.3 Gran # 2.69 Lymph # 0.4 L [place] # 0.5 Eos # 0.0 Baso # 0.01 PT 13.1 H INR 1.21 H APTT 31.2 H pCO2 pO2 HCO3 ABG pH ABG Total CO2 ABG O2 Saturation ABG Base Excess ABG Potassium VBG pH VBG pCO2 VBG HCO3 VBG Total CO2 VBG O2 Sat (Calc) VBG Base Excess Sodium Chloride Glucose Lactate FiO2 Potassium Carbon Dioxide Anion Gap BUN Creatinine Est GFR ( Amer) Est GFR (Non-Af Amer) Random Glucose Calcium Magnesium Total Bilirubin AST ALT Alkaline Phosphatase Total Protein Albumin Globulin Albumin/Globulin Ratio Arterial Blood Potassium Blood Type Antibody Screen Crossmatch BBK History Checked
--- NOTE | 2016-11-24 11:13 | CP.PCM.PN ---
<Amy Malloy - Last Filed: 11/24/16 11:40> Subjective - Date & Time of Evaluation Date of Evaluation: 11/24/16 Time of Evaluation: 11:11 - Subjective Subjective: PGY-2 ICU consult note 61 female with PMH of stage IV colon CA s/p colectomy s/p colectomy and max , ICU consulted for GI bleed. Patient has long hospital course completed with bactremia and fungemia. Patient had melena in her colostomy bag for past few days. He Hgb continues to be low despite receiving multiple blood transfusions. Currently she is awake, alert and is receiving blood transfusion. Objective - Vital Signs/Intake and Output Vital Signs (last 24 hours): Temp Pulse Resp BP Pulse Ox 97.8 F 69 16 136/68 98 11/24/16 10:34 11/24/16 10:34 11/24/16 10:34 11/24/16 10:34 11/24/16 07:51 Intake and Output: 11/24/16 11/24/16 06:59 18:59 Intake Total 1725 10 Output Total 220 1030 Balance 1505 -1020 - Medications Medications: Current Medications Acetaminophen (Tylenol 650 Mg Supp) 650 mg RC Q4H PRN PRN Reason: Fever >100.4 F Last Admin: 11/01/16 21:18 Dose: 650 mg Collagenase (Santyl) 1 gm TOP BID [facility] Last Admin: 11/24/16 10:43 Dose: 1 applic Diphenhydramine HCl (Benadryl) 50 mg IVP HS PRN PRN Reason: Insomnia Last Admin: 11/23/16 02:36 Dose: 50 mg Ergocalciferol (Drisdol 50,000 Intl Units Cap) 1 cap PO Q7D [facility] Last Admin: 11/19/16 18:04 Dose: Not Given Fentanyl (Duragesic) 1 patch TD Q72H [facility] Last Admin: 11/22/16 14:30 Dose: 1 patch Ferrous Sulfate (Feosol) 324 mg PO TID [facility] Last Admin: 11/24/16 10:43 Dose: Not Given Furosemide (Lasix) 20 mg IVP Q12 [facility] Last Admin: 11/24/16 10:30 Dose: 20 mg Home Med (Home Med) 1 unit PO Q12H PRN PRN Reason: Inflammation Last Admin: 10/18/16 11:03 Dose: 1 unit Hydromorphone HCl (Dilaudid) 1 mg IVP Q1H PRN PRN Reason: Pain, severe (8-10) Last Admin: 11/24/16 10:25 Dose: 1 mg Daptomycin 440 mg/ Sodium (Chloride) 100 mls @ 200 mls/hr IV Q24H [facility] Stop: 11/27/16 09:01 Last Admin: 11/22/16 11:36 Dose: 200 mls/hr Micafungin Sodium 100 mg/ (Sodium Chloride) 100 mls @ 100 mls/hr IV DAILY [facility] PRN Reason: Protocol Stop: 11/28/16 10:01 Last Admin: 11/24/16 10:35 Dose: 100 mls/hr Potassium Chloride 40 meq/ (Dextrose/Sodium Chloride) 1,020 mls @ 80 mls/hr IV .[id number] [facility] Last Admin: 11/24/16 05:49 Dose: 80 mls/hr Cefepime HCl (Maxipime 1gm) 1 gm in 100 mls @ 100 mls/hr IVPB Q12 [facility] PRN Reason: Protocol Magnesium Oxide (Mag-Ox) 400 mg PO BID [facility] Last Admin: 11/24/16 10:43 Dose: Not Given Multi-Ingredient Ointment (Hydrophor Oint) 0 gm TOP Q6H PRN PRN Reason: Dry lip Multivitamins (Thera Tab) 1 tab PO 0800 [facility] Last Admin: 11/23/16 18:03 Dose: Not Given Ondansetron HCl (Zofran Inj) 4 mg IVP Q4H PRN PRN Reason: Nausea/Vomiting Last Admin: 11/24/16 00:05 Dose: 4 mg Pantoprazole Sodium (Protonix Inj) 40 mg IVP Q12 [facility] Last Admin: 11/24/16 10:30 Dose: 40 mg Petrolatum (Desitin Maximum Strength Topical 40% Oint) 1 gm TOP Q4H PRN PRN Reason: Rash Last Admin: 10/23/16 22:39 Dose: 1 applic Potassium Chloride (K-Dur 20 Meq Er Tab) 40 meq PO DAILY [facility] Last Admin: 11/23/16 16:17 Dose: Not Given Propranolol HCl (Inderal La) 120 mg PO DAILY [facility] Last Admin: 07/15/17 10:31 Dose: 120 mg Sucralfate (Carafate Oral Susp) 1 gm PO BID [facility] Last Admin: 11/24/16 10:43 Dose: Not Given - Labs Labs: 11/24/16 07:53 11/24/16 07:53 PT 13.1 Seconds (9.9-11.8) H 11/24/16 10:03 INR 1.21 (0.93-1.08) H 11/24/16 10:03 APTT 31.2 Seconds (23.7-30.8) H 11/24/16 10:03 - Constitutional Appears: No Acute Distress - Head Exam Head Exam: ATRAUMATIC, NORMOCEPHALIC - Eye Exam Eye Exam: Normal appearance - ENT Exam ENT Exam: Mucous Membranes Moist - Respiratory Exam Respiratory Exam: NORMAL BREATHING PATTERN. absent: Respiratory Distress - Neurological Exam Neurological Exam: Alert, Awake, Oriented x3 - Skin Skin Exam: Dry, Intact, Normal Color, Warm Assessment and Plan - Assessment and Plan (Free Text) Assessment: 61 female with PMH of stage IV colon CA s/p colectomy & Max consult for GI bleed and severe anemia. Patient is receiving blood transfusion. She is scheduled for endoscopy procedure later this afternoon. Patient will be transferred to ICU. Plan: Neuro - awake, alert and oriented - continue neuro checks cardio - BP stable - continue to monitor - maintain MAP>65 - hold BP medications pulm: - no respiratory distress - cxr from 11/23 showed no active disease - patient is saturating well - continuing to supplemental O2 to maintain SaO2>90 GI - ppx, protonix - s/p colectomy & Max - surgery following - patient scheduled for push enteroscopy today - GI following ID - patient was found to have fungemia, bacteremia - currently receiving daptomycine and micafungin - ID following rosalinda - stable - continue to monitor - replace electrolytes as needed heme/onc - hgb yesterday afternoon was 6.6, received blood transfusions - hgb today improved to 7.2 - will transfuse pRBC before procedures - Stage IV metastatic colorectal cancer - not on current treatment due to complications - heme/onc following <Bey,Arthur - Last Filed: 11/24/16 16:00> Objective - Vital Signs/Intake and Output Vital Signs (last 24 hours): Temp Pulse Resp BP Pulse Ox 97.5 F L 54 L 20 137/60 100 11/24/16 15:42 11/24/16 15:42 11/24/16 15:42 11/24/16 15:42 11/24/16 13:45 Intake and Output: 11/24/16 11/24/16 06:59 18:59 Intake Total 1725 995 Output Total 220 1280 Balance 1505 -285 - Medications Medications: Current Medications Acetaminophen (Tylenol 650 Mg Supp) 650 mg RC Q4H PRN PRN Reason: Fever >100.4 F Last Admin: 11/01/16 21:18 Dose: 650 mg Collagenase (Santyl) 1 gm TOP BID [facility] Last Admin: 11/24/16 10:43 Dose: 1 applic Diphenhydramine HCl (Benadryl) 50 mg IVP HS PRN PRN Reason: Insomnia Last Admin: 11/23/16 02:36 Dose: 50 mg Ergocalciferol (Drisdol 50,000 Intl Units Cap) 1 cap PO Q7D [facility] Last Admin: 11/19/16 18:04 Dose: Not Given Fentanyl (Duragesic) 1 patch TD Q72H [facility] Last Admin: 11/22/16 14:30 Dose: 1 patch Ferrous Sulfate (Feosol) 324 mg PO TID [facility] Last Admin: 11/24/16 14:08 Dose: Not Given Furosemide (Lasix) 20 mg IVP Q12 [facility] Last Admin: 11/24/16 10:30 Dose: 20 mg Home Med (Home Med) 1 unit PO Q12H PRN PRN Reason: Inflammation Last Admin: 10/18/16 11:03 Dose: 1 unit Hydromorphone HCl (Dilaudid) 1 mg IVP Q1H PRN PRN Reason: Pain, severe (8-10) Last Admin: 11/24/16 14:18 Dose: 1 mg Daptomycin 440 mg/ Sodium (Chloride) 100 mls @ 200 mls/hr IV Q24H [facility] Stop: 11/27/16 09:01 Last Admin: 11/22/16 11:36 Dose: 200 mls/hr Micafungin Sodium 100 mg/ (Sodium Chloride) 100 mls @ 100 mls/hr IV DAILY [facility] PRN Reason: Protocol Stop: 11/28/16 10:01 Last Admin: 11/24/16 10:35 Dose: 100 mls/hr Potassium Chloride 40 meq/ (Dextrose/Sodium Chloride) 1,020 mls @ 80 mls/hr IV .[id number] [facility] Last Admin: 11/24/16 05:49 Dose: 80 mls/hr Cefepime HCl (Maxipime 1gm) 1 gm in 100 mls @ 100 mls/hr IVPB Q12 [facility] PRN Reason: Protocol Last Admin: 11/24/16 14:43 Dose: 100 mls/hr Magnesium Oxide (Mag-Ox) 400 mg PO BID [facility] Last Admin: 11/24/16 10:43 Dose: Not Given Multi-Ingredient Ointment (Hydrophor Oint) 0 gm TOP Q6H PRN PRN Reason: Dry lip Multivitamins (Thera Tab) 1 tab PO 0800 [facility] Last Admin: 11/24/16 10:38 Dose: Not Given Ondansetron HCl (Zofran Inj) 4 mg IVP Q4H PRN PRN Reason: Nausea/Vomiting Last Admin: 11/24/16 00:05 Dose: 4 mg Pantoprazole Sodium (Protonix Inj) 40 mg IVP Q12 [facility] Last Admin: 11/24/16 10:30 Dose: 40 mg Petrolatum (Desitin Maximum Strength Topical 40% Oint) 1 gm TOP Q4H PRN PRN Reason: Rash Last Admin: 10/23/16 22:39 Dose: 1 applic Potassium Chloride (K-Dur 20 Meq Er Tab) 40 meq PO DAILY [facility] Last Admin: 11/24/16 10:39 Dose: Not Given Propranolol HCl (Inderal La) 120 mg PO DAILY [facility] Last Admin: 11/24/16 10:31 Dose: 120 mg Sucralfate (Carafate Oral Susp) 1 gm PO BID [facility] Last Admin: 11/24/16 10:43 Dose: Not Given - Labs Labs: 11/24/16 07:53 11/24/16 07:53 PT 13.1 Seconds (9.9-11.8) H 11/24/16 10:03 INR 1.21 (0.93-1.08) H 11/24/16 10:03 APTT 31.2 Seconds (23.7-30.8) H 11/24/16 10:03 Attending/Attestation - Attestation I have personally seen and examined this patient.: Yes I have fully participated in the care of the patient.: Yes I have reviewed all pertinent clinical information, including history, physical exam and plan: Yes Notes (Text): 11/24/16 15:53 PT SEEN, EXAMINED AND EVALUATED WITH RESIDENT. REVIEWED LABS AND DISCUSSED DX, PROG, AND TX. AGREE WITH ABOVE NOTE. WILL FOLLOW WITH PMD AND CONSULTANTS. ARTHUR CASTILLO MD
--- NOTE | 2016-11-24 12:18 | CP.PCM.PN ---
Subjective - Date & Time of Evaluation Date of Evaluation: 11/24/16 Time of Evaluation: 11:15 - Subjective Subjective: Patient is feeling better today, no fevers overnight. Less abdominal pain. Objective - Vital Signs/Intake and Output Vital Signs (last 24 hours): Temp Pulse Resp BP Pulse Ox 97.9 F 72 20 128/70 98 11/24/16 07:51 11/24/16 07:51 11/24/16 07:51 11/24/16 07:51 11/24/16 07:51 Intake and Output: 11/24/16 11/24/16 06:59 18:59 Intake Total 1725 0 Output Total 220 1030 Balance 1505 -1030 - Medications Medications: Current Medications Acetaminophen (Tylenol 650 Mg Supp) 650 mg RC Q4H PRN PRN Reason: Fever >100.4 F Last Admin: 11/01/16 21:18 Dose: 650 mg Collagenase (Santyl) 1 gm TOP BID [facility] Last Admin: 11/23/16 18:02 Dose: Not Given Diphenhydramine HCl (Benadryl) 50 mg IVP HS PRN PRN Reason: Insomnia Last Admin: 11/23/16 02:36 Dose: 50 mg Ergocalciferol (Drisdol 50,000 Intl Units Cap) 1 cap PO Q7D [facility] Last Admin: 11/19/16 18:04 Dose: Not Given Fentanyl (Duragesic) 1 patch TD Q72H [facility] Last Admin: 11/22/16 14:30 Dose: 1 patch Ferrous Sulfate (Feosol) 324 mg PO TID [facility] Last Admin: 11/23/16 18:00 Dose: Not Given Furosemide (Lasix) 20 mg IVP Q12 [facility] Last Admin: 11/23/16 21:59 Dose: 20 mg Home Med (Home Med) 1 unit PO Q12H PRN PRN Reason: Inflammation Last Admin: 10/18/16 11:03 Dose: 1 unit Hydromorphone HCl (Dilaudid) 1 mg IVP Q1H PRN PRN Reason: Pain, severe (8-10) Last Admin: 11/24/16 04:39 Dose: 1 mg Daptomycin 440 mg/ Sodium (Chloride) 100 mls @ 200 mls/hr IV Q24H [facility] Stop: 11/27/16 09:01 Last Admin: 11/22/16 11:36 Dose: 200 mls/hr Micafungin Sodium 100 mg/ (Sodium Chloride) 100 mls @ 100 mls/hr IV DAILY [facility] PRN Reason: Protocol Stop: 11/28/16 10:01 Last Admin: 11/23/16 22:08 Dose: Not Given Potassium Chloride 40 meq/ (Dextrose/Sodium Chloride) 1,020 mls @ 80 mls/hr IV .[id number] [facility] Last Admin: 11/24/16 05:49 Dose: 80 mls/hr Cefepime HCl (Maxipime 1gm) 1 gm in 100 mls @ 100 mls/hr IVPB Q12 [facility] PRN Reason: Protocol Magnesium Oxide (Mag-Ox) 400 mg PO BID [facility] Last Admin: 11/23/16 18:01 Dose: Not Given Multi-Ingredient Ointment (Hydrophor Oint) 0 gm TOP Q6H PRN PRN Reason: Dry lip Multivitamins (Thera Tab) 1 tab PO 0800 [facility] Last Admin: 11/23/16 18:03 Dose: Not Given Ondansetron HCl (Zofran Inj) 4 mg IVP Q4H PRN PRN Reason: Nausea/Vomiting Last Admin: 11/24/16 00:05 Dose: 4 mg Pantoprazole Sodium (Protonix Inj) 40 mg IVP Q12 [facility] Last Admin: 11/23/16 22:03 Dose: 40 mg Petrolatum (Desitin Maximum Strength Topical 40% Oint) 1 gm TOP Q4H PRN PRN Reason: Rash Last Admin: 10/23/16 22:39 Dose: 1 applic Potassium Chloride (K-Dur 20 Meq Er Tab) 40 meq PO DAILY [facility] Last Admin: 11/23/16 16:17 Dose: Not Given Propranolol HCl (Inderal La) 120 mg PO DAILY [facility] Last Admin: 11/23/16 16:16 Dose: Not Given Sucralfate (Carafate Oral Susp) 1 gm PO BID [facility] Last Admin: 11/23/16 17:59 Dose: Not Given - Labs Labs: 11/24/16 07:53 11/24/16 07:53 PT 13.6 Seconds (9.9-11.8) H 11/23/16 18:31 INR 1.26 (0.93-1.08) H 11/23/16 18:31 APTT 34.5 Seconds (23.7-30.8) H 11/23/ 18:31 - Constitutional Appears: Non-toxic, No Acute Distress, Chronically Ill - Head Exam Head Exam: NORMAL INSPECTION - Neck Exam Neck Exam: absent: Meningismus - Respiratory Exam Respiratory Exam: Decreased Breath Sounds - Cardiovascular Exam Cardiovascular Exam: +S1, +S2 - GI/Abdominal Exam GI & Abdominal Exam: Soft. 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 staph in repeat blood cx bottle, consider bacteremia R/O secondary to PICC line R/O contamination (since only 1 of 4 bottles were positive for the organism) Partial small bowel obstruction, persistent with colonic stricture S/P exploratory laparotomy, lysis of adhesions, repair of small bowel enterotomy and partial sigmoidectomy with end-colostomy POD #2 Acute stomatitis and mucositis, as well as esophageal ulcers (esophagitis) and enteritis - no CMV noted on biopsy sample of the esophageal ulcers - consider Susy Esophagitis Neutropenia probably from chemotherapy, resolved HTN 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 S/P colectomy in 2014 history of UTI GERD anxiety Plan continue Mycamine (day 9 since port removal) and Daptomycin (repeat blood cx are negative) - will plan to complete at least 14 days of Mycamine from time of port removal and then switch to PO Diflucan for another 2 weeks (total 4 weeks of antifungal therapy) - day 10 of Daptomycin (of 10 days) and we will d/c this after today urine showing gram negative bacilli - will check identification and senstivities , repeat urine cx and started Cefepime will hold Valganciclovir since there was no evidence of CMV on the biopsy of the ulcers in the esophagus Will continue to follow clinically Overall prognosis is poor
[2016-11-24] MEDS: Cefepime 1gm in NS 100ml 1 GM/100 ML BAG IVPB SCH ×2 (14:43→23:16)
[2016-11-24] MEDS ORDERED: Benzocaine/Butamben/Tetracai 14-2-2% TOP Spray TOP ONE (16:58)
--- NOTE | 2016-11-24 17:19 | CP.PCM.PN ---
Subjective - Date & Time of Evaluation Date of Evaluation: 11/24/16 Time of Evaluation: 15:30 - Subjective Subjective: still having dark blood in colostomy bag. No vomitting, sp 2units transfusion yesterday . rept Hb 7.2. Objective - Vital Signs/Intake and Output Vital Signs (last 24 hours): Temp Pulse Resp BP Pulse Ox 97 F L 69 20 144/54 L 100 11/24/16 16:27 11/24/16 16:27 11/24/16 16:27 11/24/16 16:27 11/24/16 16:00 Intake and Output: 11/24/16 11/24/16 06:59 18:59 Intake Total 1725 995 Output Total 220 1280 Balance 1505 -285 - Medications Medications: Current Medications Acetaminophen (Tylenol 650 Mg Supp) 650 mg RC Q4H PRN PRN Reason: Fever >100.4 F Last Admin: 11/01/16 21:18 Dose: 650 mg Collagenase (Santyl) 1 gm TOP BID [facility] Last Admin: 11/24/16 10:43 Dose: 1 applic Diphenhydramine HCl (Benadryl) 50 mg IVP HS PRN PRN Reason: Insomnia Last Admin: 11/23/16 02:36 Dose: 50 mg Ergocalciferol (Drisdol 50,000 Intl Units Cap) 1 cap PO Q7D [facility] Last Admin: 11/19/16 18:04 Dose: Not Given Fentanyl (Duragesic) 1 patch TD Q72H [facility] Last Admin: 11/22/16 14:30 Dose: 1 patch Ferrous Sulfate (Feosol) 324 mg PO TID [facility] Last Admin: 11/24/16 14:08 Dose: Not Given Furosemide (Lasix) 20 mg IVP Q12 [facility] Last Admin: 11/24/16 10:30 Dose: 20 mg Home Med (Home Med) 1 unit PO Q12H PRN PRN Reason: Inflammation Last Admin: 10/18/16 11:03 Dose: 1 unit Hydromorphone HCl (Dilaudid) 1 mg IVP Q1H PRN PRN Reason: Pain, severe (8-10) Last Admin: 11/24/16 14:18 Dose: 1 mg Daptomycin 440 mg/ Sodium (Chloride) 100 mls @ 200 mls/hr IV Q24H [facility] Stop: 11/27/16 09:01 Last Admin: 11/22/16 11:36 Dose: 200 mls/hr Micafungin Sodium 100 mg/ (Sodium Chloride) 100 mls @ 100 mls/hr IV DAILY [facility] PRN Reason: Protocol Stop: 11/28/16 10:01 Last Admin: 11/24/16 10:35 Dose: 100 mls/hr Potassium Chloride 40 meq/ (Dextrose/Sodium Chloride) 1,020 mls @ 80 mls/hr IV .[id number] [facility] Last Admin: 11/24/16 05:49 Dose: 80 mls/hr Cefepime HCl (Maxipime 1gm) 1 gm in 100 mls @ 100 mls/hr IVPB Q12 [facility] PRN Reason: Protocol Last Admin: 11/24/16 14:43 Dose: 100 mls/hr Magnesium Oxide (Mag-Ox) 400 mg PO BID [facility] Last Admin: 11/24/16 10:43 Dose: Not Given Multi-Ingredient Ointment (Hydrophor Oint) 0 gm TOP Q6H PRN PRN Reason: Dry lip Multivitamins (Thera Tab) 1 tab PO 0800 [facility] Last Admin: 11/24/16 10:38 Dose: Not Given Ondansetron HCl (Zofran Inj) 4 mg IVP Q4H PRN PRN Reason: Nausea/Vomiting Last Admin: 11/24/16 00:05 Dose: 4 mg Pantoprazole Sodium (Protonix Inj) 40 mg IVP Q12 [facility] Last Admin: 11/24/16 10:30 Dose: 40 mg Petrolatum (Desitin Maximum Strength Topical 40% Oint) 1 gm TOP Q4H PRN PRN Reason: Rash Last Admin: 10/23/16 22:39 Dose: 1 applic Potassium Chloride (K-Dur 20 Meq Er Tab) 40 meq PO DAILY [facility] Last Admin: 11/24/16 10:39 Dose: Not Given Propranolol HCl (Inderal La) 120 mg PO DAILY [facility] Last Admin: 11/24/16 10:31 Dose: 120 mg Sucralfate (Carafate Oral Susp) 1 gm PO BID [facility] Last Admin: 11/24/16 10:43 Dose: Not Given - Labs Labs: 11/24/16 07:53 11/24/16 07:53 PT 13.1 Seconds (9.9-11.8) H 11/24/16 10:03 INR 1.21 (0.93-1.08) H 11/24/16 10:03 APTT 31.2 Seconds (23.7-30.8) H 11/24/16 10:03 - Head Exam Head Exam: ATRAUMATIC, NORMOCEPHALIC - Eye Exam Eye Exam: EOMI, PERRL - ENT Exam ENT Exam: Mucous Membranes Moist - Neck Exam Neck Exam: Full ROM. absent: Lymphadenopathy - Respiratory Exam Respiratory Exam: Rales, NORMAL BREATHING PATTERN Additional comments: slightly reduced AE bases - GI/Abdominal Exam GI & Abdominal Exam: Soft Additional comments: colostomy in place contained dark blood Assessment and Plan - Assessment and Plan (Free Text) Assessment: 1.GI BLEEDING last EGD neg r/o small bowel etiology 2.sp hartmans procedure for distal ulcerated stricture 3. Metastic colon canced Plan: Discussed with Dr. Hendricks, Cloth Sander,patient and family members at [facility]. Informed consent obtained for push enteroscopy
[2016-11-24] MEDS ORDERED: Midazolam 2 MG/2 ML VIAL ONE (17:31)
--- NOTE | 2016-11-24 17:49 | PN ---
SUBJECTIVE: The patient is currently seen lying supine in bed. She appears to be comfortable. She is NPO for radiology studies. She appears to be eating better. Hyperalimentation had been discontinued since my last visit with her approximately two weeks ago. The patient is status post a partial colectomy with a colostomy. She continues on antifungal therapy and antibiotic therapy. She appears to be improved since her procedure. MEDICATIONS: Medication list reviewed. The patient is currently on Benadryl, Carafate, daptomycin, Desyrel, Dilaudid, vitamin D, Duragesic is on hold, Feosol, triamcinolone, getal paste, Hydrophor, Inderal LA, K-Tab, IV Lasix, magnesium oxide, micafungin, IV fluids with potassium, Protonix, collagenase, multivitamins, Tylenol, and Zofran. PHYSICAL EXAMINATION INTAKE/OUTPUT: Intake is 2100 and output is 220. VITAL SIGNS: Blood pressure is 128/70, temperature is 97.9, and respiratory rate is 20 with a pulse of 72. HEENT: Normocephalic and atraumatic. Conjunctivae are pale. Sclerae are nonicteric. NECK: Supple. No neck vein distention. CHEST: Clear to auscultation and percussion. No rales, no rhonchi and no wheezing. CARDIOVASCULAR: Shows regular S1 and S2. No murmurs, rubs, or gallops. ABDOMEN: Positive colostomy. Soft. No masses. No rebound or guarding. EXTREMITIES: Showed trace edema. No cyanosis or clubbing. LABORATORY DATA AND IMAGING: Labs; CBC from yesterday, white blood cell count of 4.8, hemoglobin of 6.6, with platelet count of 100,000. The patient did receive 2 units of packed red blood cells. Chemistries, normal electrolytes. BUN of 22 with creatinine of 0.6. Calcium of 7.8 with an albumin of 2.4. Bilirubin of 1.4, AST and ALT are normal, and alkaline phosphatase of 196. Microbiology: Urine from 2 days ago, gram-negative rohan, and final sensitivities are pending along with isolation of the gram-negative rohan. Followup blood cultures are negative. Initial blood cultures from late October were positive for Susy albicans and the catheter tip culture was positive for Susy albicans. Blood cultures were positive for coagulase-negative Staph. ASSESSMENT: 1. Status post acute renal failure. BUN and creatine are now acceptable and within the normal range. 2. Stage IV colon cancer with metastasis. Status post palliative colostomy. 3. History of anemia. Transfuse the patient as per Dr. Hendricks to keep hemoglobin in acceptable range. 4. History of thrombocytopenia, likely secondary to malignancy. 5. Positive blood cultures for fungus and bacteria. Positive gram-negative rohan in the urine. The patient continues empiric antibiotic therapy. 6. Status post hypokalemia. Potassium level appears to be normal and potassium supplements being given both orally and through intravenously. 7. Hypomagnesemia. Continue to supplement magnesium with oral magnesium supplements. P.r.n. IV Mg supplements. No evidence for diarrhea. PLAN: 1. Continue to monitor electrolytes on a regular basis. 2. Continue low-dose diuretic therapy as her edema has significantly improved with diuretics and with the discontinuation of large volumes with hyperalimentation. 3. Continue pain management. 4. Attempt to resume a regular diet. 5. The patient is stable from a renal standpoint. Kyle Brooks MD [facility]
[2016-11-24] MEDS ORDERED: Lidocaine 2% Jelly (30 ml) ONE (17:58)
[2016-11-24] MEDS ORDERED: Etomidate 20 mg/10ml Inj IV ONE (18:07)
[2016-11-25] MEDS: HYDROmorphone 1 mg/ml ISec IVP PRN ×10 (01:00→23:53)
[2016-11-25] MEDS ORDERED: HYDROmorphone 2 mg/ml ISec IVP STA (01:20)
--- NOTE | 2016-11-25 02:43 | PN ---
DATE: 11/24/2016 The patient is in room 362, bed 2. SUBJECTIVE: This is a 61-year-old female who was admitted about a month ago with catherine sepsis post chemotherapy with 2 cycles of FOLFOX based chemotherapy along with Avastin. The patient was admitted with catherine sepsis, had a protracted recovery with accounts which gradually came up, since then patient has had several complications. She had anemia requiring transfusions. She also had fungemia and bacteremia which were treated appropriately with a new PICC line on the left arm. Prior PICC lines were changed and the port in the right chest wall was also removed in view of the infections. 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 The patient also since then also had in addition to that several episodes of melanotic stools. During the hospitalization, she has been endoscoped a few times and she has also had a sigmoidoscopy. The last endoscopy done last week, the prior to her surgery showed that the ulcers that were previously documented and thought to be related to CMV had healed. Subsequent to that, the patient had undergone surgery intraoperatively. There was no evidence of significant carcinomatosis. There was adhesions of the loops of the small bowel and there was no evidence of any intraabdominal sealing including the liver at the time of the operative exam. The patient underwent primary resection of the tumor. She also had a Marquita's procedure done. She has a colostomy and patient has been recovering slowly from the surgery, still on S[employer] MAINTE[employer]ACH[employer] Dilaudid for pain which is given intermittently, but she continues to *------* blood and blood products over the last 6-7 days. She is having frankly what appears to be melanotic stools in the colostomy and it appears that the bleeding may be somewhere between the jejunum and the ileum as the prior endoscopy just before the surgical procedure failed to reveal endoscopically any lesions either in the esophagus or the stomach. Based on these findings, the patient is going to be right now getting blood transfusion both plasma and blood products and is going to be scheduled for a push enteroscopy later this afternoon. Subjectively, the patient is feeling better today. She has had no fevers overnight. She has less abdominal pain. The patient is awake, alert, and oriented. PHYSICAL EXAMINATION: VITAL SIGNS: Reveals a T-max of 98.4, pulse of 72, respirations 20, blood pressure is 128/70, pulse oximetry 96%. Intake has been 1725, output is 220, and balance is 1505. MEDICATIONS: The patient's medications were reviewed, she is on Tylenol p.r.n. She is on Santyl 1 g topically b.i.d. She is on Benadryl q.6 hours p.r.n. for restlessness. She is on vitamin D one capsule every 77 days with 50,000 units. She is on fentanyl 1 patch q.72 hours. She is on iron supplement. She is on Lasix 20 mg IV q.12 hours. She is on hydromorphone 1 mg IV q.4 hours p.r.n. She is on daptomycin given every 24 hours. She is on micafungin 100 mg given IV daily. She is on IV fluids with potassium supplements at 80 mL an hour. She is on cefepime 1 g IV piggyback q.12 hours. She is on mag oxide 400 b.i.d. She is on Hydrophor ointment topically to the sacral decubitus. She is on Zofran p.r.n. She is on pantoprazole 40 mg IV q.12 hours. She is on Desitin also to the sacral decubitus 1 g topically every 4 hours as needed and she is also on K-Dur 40 mEq p.o. daily. LABORATORY DATA: Labs from today were reviewed and they revealed the following. Today's lab reveals a white count of 3.6 with an ANC of 2.69, hemoglobin 7.2, hematocrit 21; platelet count of 94,000. Chemistry revealed a sodium of 141, potassium is 3.5, chloride is 105, CO2 is 28, anion gap is 12 with a BUN of 22, creatinine of 0.5, calcium is 7.7. AST is 10, ALT is 28, alkaline phosphatase is 175, total protein is 4.4 with an albumin of 2.1 and the AG ratio is 1. ASSESSMENT AND PLAN: The patient is awake, alert, and oriented. Sister is by the side. I had spoken to the patient and the sister in great detail. I told them the need for transfusion before the enteroscopy that needs to be done this afternoon. I explained to them the seriousness of the situation and the need to do a repeat push enteroscopy in view of the active bleeding. If we did see the site of bleeding, if it cannot be cauterized or glue applied to the area, she may have to be consider for a repeat surgery to excise the bleeding site. The patient is aware of all potential complications and seriousness of her condition. During this whole process, the patient was able to assimilate all the facts that I presented to her and she has agreed for what needs to be done. In the meantime, Dr. Null called me and spoke to the cattle killer Dr. Hyatt who has been assigned for the ICU this afternoon, he saw the patient. The patient has been cleared for admission to the unit after the procedure, so we can manage her more aggressively. Routine post exam instructions have been given to the patient and the sister. We will follow her very carefully while in the unit. Kedar Hendricks MD
[2016-11-25 06:05] LABS: INR 1.19 (0.93-1.08); PARTIAL THROMBOPLASTIN TIME 30.4 Seconds (23.7-30.8); PROTHROMBIN TIME 12.8 Seconds (9.9-11.8)
[2016-11-25 06:29] LABS: HEMOGLOBIN 12.4 gm/dL (12.0-16.0); MEAN CELL VOLUME 87.9 fL (80.0-105.0); MEAN CORPUSCULAR HGB CONC 34.2 g/dl (31.0-37.0); MEAN PLATELET VOLUME 10.9 fl (7.0-11.0); PLATELET COUNT 121 10^3/uL (120.0-450.0); RBC 4.13 10^6/uL (3.5-6.1); RED CELL DISTRIBUTION WIDTH 15.9 % (11.5-14.5); WHITE BLOOD COUNT 6.4 10^3/ul (4.5-11.0)
[2016-11-25 06:33] LABS: ALB/GLOB RATIO 0.8 (1.1-1.8); ALBUMIN 2.2 g/dL (3.0-4.8); ALT/SGPT 29 U/L (7-56); AST/SGOT 15 U/L (15-39); BLOOD UREA NITROGEN 18 mg/dL (7-21); CALCIUM 7.4 mg/dL (8.4-10.5); GFR AFRICAN-AMERICAN > 60; GFR NON-AFRICAN AMERICAN > 60; MAGNESIUM 1.4 mg/dL (1.7-2.2)
[2016-11-25] MEDS ORDERED: Potassium Chloride 40 mEq/30 ml LIQ UD PO ONE (06:48)
[2016-11-25 07:23] LABS: BAND 4 % (0-2); LYMPHOCYTE 7 % (22.0-35.0); MONOCYTE 5 % (1.0-6.0); NEUTROPHIL 84 % (50.0-70.0)
[2016-11-25] MEDS: Collagenase 250 Units/gm Ointment(30 gm) TOP SCH ×2 (07:47→10:36)
--- NOTE | 2016-11-25 07:50 | CP.PCM.PN ---
<QuincyNatali - Last Filed: 11/25/16 07:46> Subjective - Date & Time of Evaluation Date of Evaluation: 11/25/16 Time of Evaluation: 07:15 - Subjective Subjective: General Surgery Dr. Mccracken Pt S&E @bedside. EMILY. pt sleeping comfortably in bed. AVSS. DEEJAY 400cc serosanguinous, UOP 1300cc overnight. Objective - Vital Signs/Intake and Output Vital Signs (last 24 hours): Temp Pulse Resp BP Pulse Ox 97.3 F L 58 L 15 131/57 L 97 11/25/16 04:00 11/25/16 06:00 11/25/16 06:00 11/25/16 06:00 11/25/16 06:00 Intake and Output: 11/25/16 11/25/16 06:59 18:59 Intake Total 1570 Output Total 1700 Balance -130 - Medications Medications: Current Medications Acetaminophen (Tylenol 650 Mg Supp) 650 mg RC Q4H PRN PRN Reason: Fever >100.4 F Last Admin: 11/01/16 21:18 Dose: 650 mg Collagenase (Santyl) 1 gm TOP BID [facility] Last Admin: 11/24/16 10:43 Dose: 1 applic Diphenhydramine HCl (Benadryl) 50 mg IVP HS PRN PRN Reason: Insomnia Last Admin: 11/23/16 02:36 Dose: 50 mg Ergocalciferol (Drisdol 50,000 Intl Units Cap) 1 cap PO Q7D [facility] Last Admin: 11/19/16 18:04 Dose: Not Given Fentanyl (Duragesic) 1 patch TD Q72H [facility] Last Admin: 11/22/16 14:30 Dose: 1 patch Ferrous Sulfate (Feosol) 324 mg PO TID [facility] Last Admin: 11/24/16 17:15 Dose: Not Given Furosemide (Lasix) 20 mg IVP Q12 [facility] Last Admin: 11/24/16 23:15 Dose: 20 mg Home Med (Home Med) 1 unit PO Q12H PRN PRN Reason: Inflammation Last Admin: 10/18/16 11:03 Dose: 1 unit Hydromorphone HCl (Dilaudid) 1 mg IVP Q1H PRN PRN Reason: Pain, severe (8-10) Last Admin: 11/25/16 04:22 Dose: 1 mg Micafungin Sodium 100 mg/ (Sodium Chloride) 100 mls @ 100 mls/hr IV DAILY [facility] PRN Reason: Protocol Stop: 11/28/16 10:01 Last Admin: 11/24/16 10:35 Dose: 100 mls/hr Potassium Chloride 40 meq/ (Dextrose/Sodium Chloride) 1,020 mls @ 80 mls/hr IV .[id number] [facility] Last Admin: 11/24/16 05:49 Dose: 80 mls/hr Cefepime HCl (Maxipime 1gm) 1 gm in 100 mls @ 100 mls/hr IVPB Q12 [facility] PRN Reason: Protocol Last Admin: 11/24/16 23:16 Dose: 100 mls/hr Potassium Chloride (Potassium Chloride 20 Meq/100 Ml) 20 meq in 100 mls @ 50 mls/hr IVPB ONCE ONE Stop: 11/25/16 08:47 Last Admin: 11/25/16 06:55 Dose: 50 mls/hr Acetaminophen (Ofirmev) 1,000 mg in 100 mls @ 400 mls/hr IVPB Q6H PRN PRN Reason: pain Stop: 11/27/16 07:46 Magnesium Oxide (Mag-Ox) 400 mg PO BID [facility] Last Admin: 11/24/16 17:16 Dose: Not Given Multi-Ingredient Ointment (Hydrophor Oint) 0 gm TOP Q6H PRN PRN Reason: Dry lip Multivitamins (Thera Tab) 1 tab PO 0800 [facility] Last Admin: 11/24/16 10:38 Dose: Not Given Ondansetron HCl (Zofran Inj) 4 mg IVP Q4H PRN PRN Reason: Nausea/Vomiting Last Admin: 11/24/16 00:05 Dose: 4 mg Pantoprazole Sodium (Protonix Inj) 40 mg IVP Q12 [facility] Last Admin: 11/24/16 23:16 Dose: 40 mg Petrolatum (Desitin Maximum Strength Topical 40% Oint) 1 gm TOP Q4H PRN PRN Reason: Rash Last Admin: 10/23/16 22:39 Dose: 1 applic Potassium Chloride (K-Dur 20 Meq Er Tab) 40 meq PO DAILY [facility] Last Admin: 11/24/16 10:39 Dose: Not Given Propranolol HCl (Inderal La) 120 mg PO DAILY [facility] Last Admin: 11/24/16 10:31 Dose: 120 mg Sucralfate (Carafate Oral Susp) 1 gm PO BID [facility] Last Admin: 11/24/16 19:09 Dose: Not Given - Labs Labs: 11/25/16 05:00 11/25/16 05:00 PT 12.8 Seconds (9.9-11.8) H 11/25/16 05:00 INR 1.19 (0.93-1.08) H 11/25/16 05:00 APTT 30.4 Seconds (23.7-30.8) 11/25/16 05:00 - Constitutional Appears: Non-toxic, No Acute Distress, Cachectic, Chronically Ill - Head Exam Head Exam: NORMAL INSPECTION - Eye Exam Eye Exam: Normal appearance - ENT Exam ENT Exam: Mucous Membranes Moist - Respiratory Exam Respiratory Exam: NORMAL BREATHING PATTERN. absent: Accessory Muscle Use, Respiratory Distress - Cardiovascular Exam Cardiovascular Exam: absent: Bradycardia, Tachycardia - GI/Abdominal Exam GI & Abdominal Exam: Soft. absent: Distended - Extremities Exam Extremities Exam: Normal Inspection - Neurological Exam Neurological Exam: absent: Awake (sleeping) - Skin Skin Exam: Dry, Normal Color, Warm Assessment and Plan - Assessment and Plan (Free Text) Assessment: 61 y/o F w/ Colon CA, GI bleed, sacral decub POD#8 s/p Exlap, NATE, Marquita's - pain management --> Ofirmev 1g Q6 prn pain - limit narcotic use - Push enteroscopy yesterday showed normal small bowel up to distal jejunem; f/ u GI recs - strict I/Os - cont IV Abx per ID - monitor H/H, transfuse per Heme/Onc - encourage OOB to chair/Amb/IS use - cont current medical management Pt discussed w/ Dr. Kaykay Mathew DO PGY2 <Yoan Mccracken - Last Filed: 12/02/16 23:58> Objective - Vital Signs/Intake and Output Vital Signs (last 24 hours): Temp Pulse Resp BP Pulse Ox 97.8 F 101 H 18 170/89 H 100 12/02/16 16:00 12/02/16 16:00 12/02/16 16:00 12/02/16 16:00 12/02/16 16:00 Intake and Output: 12/02/16 12/03/16 18:59 06:59 Intake Total 120 Output Total 450 600 Balance -450 -480 - Medications Medications: Current Medications Acetaminophen (Tylenol 650 Mg Supp) 650 mg RC Q4H PRN PRN Reason: Fever >100.4 F Last Admin: 11/01/16 21:18 Dose: 650 mg Al Hydrox/Mg Hydrox/Simethicone 30 ml/Diphenhydramine HCl 75 mg/Lidocaine 30 ml 0 ml PO QID [facility] Last Admin: 12/02/16 21:01 Dose: Not Given Diphenhydramine HCl (Benadryl) 50 mg IVP HS PRN PRN Reason: Insomnia Last Admin: 11/27/16 01:00 Dose: 50 mg Ergocalciferol (Drisdol 50,000 Intl Units Cap) 1 cap PO Q7D [facility] Last Admin: 11/19/16 18:04 Dose: Not Given Ferrous Sulfate (Feosol) 324 mg PO TID [facility] Last Admin: 12/02/16 18:16 Dose: Not Given Fluconazole (Diflucan) 200 mg PO DAILY [facility] PRN Reason: Protocol Stop: 12/12/16 10:01 Last Admin: 12/02/16 09:44 Dose: Not Given Home Med (Home Med) 1 unit PO Q12H PRN PRN Reason: Inflammation Last Admin: 10/18/16 11:03 Dose: 1 unit Hydralazine HCl (Apresoline) 10 mg IVP Q4H PRN PRN Reason: Systolic Blood Pressure Hydromorphone HCl (Dilaudid) 1 mg IVP Q1H PRN PRN Reason: Pain, moderate (4-7) Last Admin: 12/02/16 21:06 Dose: 1 mg Levetiracetam (Keppra 500mg Ivpb) 500 mg in 100 mls @ 400 mls/hr IV Q12 [facility] Last Admin: 12/02/16 21:06 Dose: 400 mls/hr Potassium Chloride/Dextrose (Potassium Chl 40 Meq In D5w) 1,000 mls @ 60 mls/ hr IV .[id number] [facility] Last Admin: 12/02/16 18:17 Dose: Not Given Magnesium Hydroxide (Milk Of Magnesia) 30 ml PO DAILY PRN PRN Reason: skin irritation Last Admin: 12/02/16 14:09 Dose: 30 ml Magnesium Oxide (Mag-Ox) 400 mg PO BID [facility] Last Admin: 12/02/16 18:16 Dose: Not Given Multi-Ingredient Ointment (Hydrophor Oint) 0 gm TOP Q6H PRN PRN Reason: Dry lip Multivitamins (Thera Tab) 1 tab PO 0800 [facility] Last Admin: 12/02/16 08:10 Dose: Not Given Propranolol HCl (Inderal La) 120 mg PO DAILY [facility] Last Admin: 12/02/16 09:44 Dose: Not Given Sucralfate (Carafate Oral Susp) 1 gm PO BID [facility] Last Admin: 12/02/16 18:16 Dose: Not Given - Labs Labs: 12/02/16 06:00 12/02/16 06:00 PT 12.9 Seconds (9.9-11.8) H 12/02/16 06:00 INR 1.19 (0.93-1.08) H 12/02/16 06:00 APTT 32.9 Seconds (23.7-30.8) H 12/02/16 06:00 Assessment and Plan - Assessment and Plan (Free Text) Plan: Patient was seen and examined by me. I agree with assessment and plan as per resident's note.
[2016-11-25] MEDS: Multivitamin Therapeutic Tab PO SCH (08:10)
--- NOTE | 2016-11-25 09:46 | CP.PCM.PN ---
Subjective - Date & Time of Evaluation Date of Evaluation: 11/25/16 Time of Evaluation: 09:30 - Subjective Subjective: Comfortable in bed, not in distress, afebrile overnight, had push enteroscopy done. Objective - Vital Signs/Intake and Output Vital Signs (last 24 hours): Temp Pulse Resp BP Pulse Ox 97.3 F L 58 L 15 131/57 L 97 11/25/16 04:00 11/25/16 06:00 11/25/16 06:00 11/25/16 06:00 11/25/16 06:00 Intake and Output: 11/24/16 11/25/16 18:59 06:59 Intake Total 2709 1570 Output Total 1980 1700 Balance 729 -130 - Medications Medications: Current Medications Acetaminophen (Tylenol 650 Mg Supp) 650 mg RC Q4H PRN PRN Reason: Fever >100.4 F Last Admin: 11/01/16 21:18 Dose: 650 mg Collagenase (Santyl) 1 gm TOP BID [facility] Last Admin: 11/24/16 10:43 Dose: 1 applic Diphenhydramine HCl (Benadryl) 50 mg IVP HS PRN PRN Reason: Insomnia Last Admin: 11/23/16 02:36 Dose: 50 mg Ergocalciferol (Drisdol 50,000 Intl Units Cap) 1 cap PO Q7D [facility] Last Admin: 11/19/16 18:04 Dose: Not Given Fentanyl (Duragesic) 1 patch TD Q72H [facility] Last Admin: 11/22/16 14:30 Dose: 1 patch Ferrous Sulfate (Feosol) 324 mg PO TID [facility] Last Admin: 11/24/16 17:15 Dose: Not Given Furosemide (Lasix) 20 mg IVP Q12 [facility] Last Admin: 11/24/16 23:15 Dose: 20 mg Home Med (Home Med) 1 unit PO Q12H PRN PRN Reason: Inflammation Last Admin: 10/18/16 11:03 Dose: 1 unit Hydromorphone HCl (Dilaudid) 1 mg IVP Q1H PRN PRN Reason: Pain, severe (8-10) Last Admin: 11/25/16 04:22 Dose: 1 mg Micafungin Sodium 100 mg/ (Sodium Chloride) 100 mls @ 100 mls/hr IV DAILY [facility] PRN Reason: Protocol Stop: 11/28/16 10:01 Last Admin: 11/24/16 10:35 Dose: 100 mls/hr Potassium Chloride 40 meq/ (Dextrose/Sodium Chloride) 1,020 mls @ 80 mls/hr IV .[id number] [facility] Last Admin: 11/24/16 05:49 Dose: 80 mls/hr Cefepime HCl (Maxipime 1gm) 1 gm in 100 mls @ 100 mls/hr IVPB Q12 [facility] PRN Reason: Protocol Last Admin: 11/24/16 23:16 Dose: 100 mls/hr Potassium Chloride (Potassium Chloride 20 Meq/100 Ml) 20 meq in 100 mls @ 50 mls/hr IVPB ONCE ONE Stop: 11/25/16 08:47 Magnesium Oxide (Mag-Ox) 400 mg PO BID [facility] Last Admin: 11/24/16 17:16 Dose: Not Given Multi-Ingredient Ointment (Hydrophor Oint) 0 gm TOP Q6H PRN PRN Reason: Dry lip Multivitamins (Thera Tab) 1 tab PO 0800 [facility] Last Admin: 11/24/16 10:38 Dose: Not Given Ondansetron HCl (Zofran Inj) 4 mg IVP Q4H PRN PRN Reason: Nausea/Vomiting Last Admin: 11/24/16 00:05 Dose: 4 mg Pantoprazole Sodium (Protonix Inj) 40 mg IVP Q12 [facility] Last Admin: 11/24/16 23:16 Dose: 40 mg Petrolatum (Desitin Maximum Strength Topical 40% Oint) 1 gm TOP Q4H PRN PRN Reason: Rash Last Admin: 10/23/16 22:39 Dose: 1 applic Potassium Chloride (K-Dur 20 Meq Er Tab) 40 meq PO DAILY [facility] Last Admin: 11/24/16 10:39 Dose: Not Given Propranolol HCl (Inderal La) 120 mg PO DAILY [facility] Last Admin: 11/24/16 10:31 Dose: 120 mg Sucralfate (Carafate Oral Susp) 1 gm PO BID [facility] Last Admin: 11/24/16 19:09 Dose: Not Given - Labs Labs: 11/25/16 05:00 11/25/16 05:00 PT 12.8 Seconds (9.9-11.8) H 11/25/16 05:00 INR 1.19 (0.93-1.08) H 11/25/16 05:00 APTT 30.4 Seconds (23.7-30.8) 11/25/16 05:00 - Constitutional Appears: Non-toxic, No Acute Distress - Head Exam Head Exam: NORMAL INSPECTION - Neck Exam Neck Exam: absent: Meningismus - Respiratory Exam Respiratory Exam: Decreased Breath Sounds - Cardiovascular Exam Cardiovascular Exam: +S1, +S2 - GI/Abdominal Exam GI & Abdominal Exam: Soft. 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, probably from port-a-cath S/P removal POD # 9 (since the patient had been on TPN through the port) S/P Methicillin-resistant coagulase negative staph in repeat blood cx bottle, consider bacteremia R/O secondary to PICC line R/O contamination (since only 1 of 4 bottles were positive for the organism) gram negative bacilli in the urine in a patient with Salazar catheter Partial small bowel obstruction, persistent with colonic stricture S/P exploratory laparotomy, lysis of adhesions, repair of small bowel enterotomy and partial sigmoidectomy with end-colostomy Acute stomatitis and mucositis, as well as esophageal ulcers (esophagitis) and enteritis - no CMV noted on biopsy sample of the esophageal ulcers - consider Susy Esophagitis Neutropenia probably from chemotherapy, resolved HTN 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 S/P colectomy in 2014 history of UTI GERD anxiety Plan continue Mycamine (day 10 since port removal) and Daptomycin (repeat blood cx are negative) - will plan to complete at least 14 days of Mycamine from time of port removal and then switch to PO Diflucan for another 2 weeks (total 4 weeks of antifungal therapy) urine showing gram negative bacilli - will check identification and senstivities , repeat urine cx and on Cefepime will hold Valganciclovir since there was no evidence of CMV on the biopsy of the ulcers in the esophagus Will continue to follow clinically follow up official report of the push enteroscopy Overall prognosis is poor
[2016-11-25] MEDS: Sucralfate 1 gm/10 ml Oral Susp UD PO SCH ×2 (10:32→17:21)
[2016-11-25] MEDS: Potassium Chloride 20 mEq ER Tab PO SCH (10:33)
[2016-11-25] MEDS: Cefepime 1gm in NS 100ml 1 GM/100 ML BAG IVPB SCH ×2 (10:33→21:36)
[2016-11-25] MEDS: Magnesium Oxide 400 mg Tab UD PO SCH ×2 (10:33→17:21)
[2016-11-25] MEDS: Micafungin 100 MG in Sodium Chloride 0.9% 100 ML IV SCH (10:34)
[2016-11-25] MEDS ORDERED: Magnesium Sulfate 2 GM in Sodium Chloride 0.9% 100 ML IVPB ONE (12:49)
--- NOTE | 2016-11-25 14:05 | PN ---
DATE: 11/25/2016 SUBJECTIVE: The patient is resting in bed. No complaints of shortness of breath. No obvious cough or congestion. No significant abdominal pain. The patient's hemoglobin this morning is stable and the patient did have the endoscopy yesterday evening and tolerated well. No active bleeding of the colostomy this morning and his hemoglobin is stable. PHYSICAL EXAMINATION VITAL SIGNS: Temperature 97.3, pulse of 58, respirations are 15, and blood pressure is 131/57, O2 saturation on room air is 97%. HEENT: Head is atraumatic and normocephalic. Eyes, reactive to light. Ear, nose and throat seem to be within normal limits. NECK: Supple. No JVD. No thyroid enlargement. No lymph nodes. HEART: Has a regular rate, and rhythm. Normal S1, S2. LUNGS: Reveal good breath sounds bilaterally. ABDOMEN: Soft, decreased bowel sounds. GENITALIA AND RECTAL: Deferred. MUSCULOSKELETAL: No joint deformities. EXTREMITIES: Reveal no significant lower extremity edema. NEUROLOGICAL: He seems be grossly intact. LABORATORY DATA: As far as her laboratories are concerned her white count is 6.4, hemoglobin is 12.4, hematocrit 36.3, with platelets of 121,000. Her sodium is 146, potassium 3.0, chloride 108, CO2 is 32 with a BUN of 18, creatinine is 0.5, and a glucose of 84. IMPRESSION: The patient has stage IV colon cancer status post colectomy and Marquita procedure. The patient is status post gastrointestinal bleed with severe anemia and also carries a diagnoses of fungemia as well as bacteremia. PLAN: We will continue to monitor her hemoglobin closely. The patient is getting IV fluid, note that she is also getting antifungal as well as antibiotics as per ID. The patient is being followed closely by Hematology and Oncology as well as GI and will be transferred to general medical floor today. I will continue to follow and treat aggressively along with the other consultants and the primary care doctor. Arthur Hyatt MD
[2016-11-25] MEDS: Propranolol 60 mg ER Cap PO SCH (15:03)
--- NOTE | 2016-11-25 17:37 | CP.PCM.PN ---
Subjective - Date & Time of Evaluation Date of Evaluation: 11/25/16 Time of Evaluation: 17:00 - Subjective Subjective: Feels much better over last few days. Continues to have dark output from colostomy bag and associated pain. PO intake improving though on full liquids 12 ROS otherwise negative Objective - Vital Signs/Intake and Output Vital Signs (last 24 hours): Temp Pulse Resp BP Pulse Ox 97.2 F L 55 L 18 148/59 L 99 11/25/16 12:00 11/25/16 15:03 11/25/16 15:00 11/25/16 15:00 11/25/16 15:00 Intake and Output: 11/25/16 11/25/16 06:59 18:59 Intake Total 1570 Output Total 1700 Balance -130 - Medications Medications: Current Medications Acetaminophen (Tylenol 650 Mg Supp) 650 mg RC Q4H PRN PRN Reason: Fever >100.4 F Last Admin: 11/01/16 21:18 Dose: 650 mg Collagenase (Santyl) 1 gm TOP BID [facility] Last Admin: 11/25/16 10:36 Dose: 1 applic Diphenhydramine HCl (Benadryl) 50 mg IVP HS PRN PRN Reason: Insomnia Last Admin: 11/23/16 02:36 Dose: 50 mg Ergocalciferol (Drisdol 50,000 Intl Units Cap) 1 cap PO Q7D [facility] Last Admin: 11/19/16 18:04 Dose: Not Given Fentanyl (Duragesic) 1 patch TD Q72H [facility] Last Admin: 11/22/16 14:30 Dose: 1 patch Ferrous Sulfate (Feosol) 324 mg PO TID [facility] Last Admin: 11/25/16 17:21 Dose: 324 mg Furosemide (Lasix) 20 mg IVP Q12 [facility] Last Admin: 11/25/16 10:33 Dose: 20 mg Home Med (Home Med) 1 unit PO Q12H PRN PRN Reason: Inflammation Last Admin: 10/18/16 11:03 Dose: 1 unit Hydromorphone HCl (Dilaudid) 1 mg IVP Q1H PRN PRN Reason: Pain, severe (8-10) Last Admin: 11/25/16 16:26 Dose: 1 mg Micafungin Sodium 100 mg/ (Sodium Chloride) 100 mls @ 100 mls/hr IV DAILY [facility] PRN Reason: Protocol Stop: 11/28/16 10:01 Last Admin: 11/25/16 10:34 Dose: 100 mls/hr Potassium Chloride 40 meq/ (Dextrose/Sodium Chloride) 1,020 mls @ 80 mls/hr IV .[id number] [facility] Last Admin: 11/24/16 05:49 Dose: 80 mls/hr Cefepime HCl (Maxipime 1gm) 1 gm in 100 mls @ 100 mls/hr IVPB Q12 [facility] PRN Reason: Protocol Last Admin: 11/25/16 10:33 Dose: 100 mls/hr Acetaminophen (Ofirmev) 1,000 mg in 100 mls @ 400 mls/hr IVPB Q6H PRN PRN Reason: pain Stop: 11/27/16 07:46 Last Admin: 11/25/16 08:07 Dose: 400 mls/hr Magnesium Oxide (Mag-Ox) 400 mg PO BID [facility] Last Admin: 11/25/16 17:21 Dose: 400 mg Multi-Ingredient Ointment (Hydrophor Oint) 0 gm TOP Q6H PRN PRN Reason: Dry lip Multivitamins (Thera Tab) 1 tab PO 0800 [facility] Last Admin: 11/25/16 08:10 Dose: 1 tab Ondansetron HCl (Zofran Inj) 4 mg IVP Q4H PRN PRN Reason: Nausea/Vomiting Last Admin: 11/24/16 00:05 Dose: 4 mg Pantoprazole Sodium (Protonix Inj) 40 mg IVP Q12 [facility] Last Admin: 11/25/16 10:33 Dose: 40 mg Petrolatum (Desitin Maximum Strength Topical 40% Oint) 1 gm TOP Q4H PRN PRN Reason: Rash Last Admin: 10/23/16 22:39 Dose: 1 applic Potassium Chloride (K-Dur 20 Meq Er Tab) 40 meq PO DAILY [facility] Last Admin: 11/25/16 10:33 Dose: 40 meq Propranolol HCl (Inderal La) 120 mg PO DAILY [facility] Last Admin: 11/25/16 15:03 Dose: Not Given Sucralfate (Carafate Oral Susp) 1 gm PO BID [facility] Last Admin: 11/25/16 17:21 Dose: 1 gm - Labs Labs: 11/25/16 05:00 11/25/16 05:00 PT 12.8 Seconds (9.9-11.8) H 11/25/16 05:00 INR 1.19 (0.93-1.08) H 11/25/16 05:00 APTT 30.4 Seconds (23.7-30.8) 11/25/16 05:00 - Constitutional Appears: Non-toxic - Head Exam Head Exam: ATRAUMATIC, NORMAL INSPECTION, NORMOCEPHALIC - Respiratory Exam Respiratory Exam: Accessory Muscle Use - Cardiovascular Exam Cardiovascular Exam: REGULAR RHYTHM, +S1, +S2. absent: Murmur - GI/Abdominal Exam GI & Abdominal Exam: Soft, Hyperactive Bowel Sounds. absent: Rigid, Rebound Additional comments: ostomy in place; mucosa pink and moist appearing. dark output still noted - Extremities Exam Extremities Exam: Calf Tenderness Assessment and Plan (1) Colon tumor Status: Chronic - Assessment and Plan (Free Text) Assessment: Ms. Alejandro rowea 61 y/o woman with pmhx signifiant for Kras mutated metastatic colorectal cancer s/p 2 cycles of FOLFOX +avastin who was initially admitted for neutropenic sepsis and whose hospital course has been complicated by severe mucositis (since resolved), fungemia, rectal bleeding s/p Bailey pouch colostomy creation with progressive blood loss. The patient under received 2 units of PRBCs and 2 units of FFP with increase in hgb. A push enteroscopy per GI was performed but was unable to view bowel in entirety- but no bleeding was visualized during procedure. Over all despite the patient's complicated medical course she has markedly improved. IF she continue to demosntrate melena in her ostomy will need to consider another intervation (surgical ex lap, enteroscopy; IR guided procedure potentially) to limit bleeding. Pending stability of blood counts fro 24 hours will consider transferring out of ICU -q12 CBC, INR,PT PTT, Fibrinogen -continue abx per ID recommendations for prior fungemia -continue prn hydroporphone will consider [employer] Luis Fernando Hendricks MD Oncology Service
[2016-11-25 19:22] LABS: MEAN CELL VOLUME 94.4 fL (80.0-105.0); MEAN CORPUSCULAR HEMOGLOBIN 33.8 pg (25.0-35.0); MEAN CORPUSCULAR HGB CONC 35.8 g/dl (31.0-37.0); MEAN PLATELET VOLUME 11.6 fl (7.0-11.0); RBC 3.94 10^6/uL (3.5-6.1); RED CELL DISTRIBUTION WIDTH 19.4 % (11.5-14.5); WHITE BLOOD COUNT 8.4 10^3/ul (4.5-11.0)
[2016-11-25 19:25] LABS: HEMOGLOBIN 13.3 gm/dL (12.0-16.0)
[2016-11-25 19:40] LABS: INR 1.19 (0.93-1.08); PARTIAL THROMBOPLASTIN TIME 32.1 Seconds (23.7-30.8); PROTHROMBIN TIME 12.8 Seconds (9.9-11.8)
[2016-11-25 21:28] LABS: FIBRINOGEN 220.8 mg/dL (187-400)
--- NOTE | 2016-11-26 00:46 | PN ---
DATE: 11/25/2016 LOCATION: The patient is in intensive care unit, ICU 128, bed 1. REASON FOR CONSULTATION: Tachycardia. HISTORY OF PRESENT ILLNESS: A 61-year-old female with right colon cancer, status post colostomy, had cancer with metastasis, continued to bleed, continued to get blood transfusions. The patient denies chest pain, shortness of breath, or palpitation. PHYSICAL EXAMINATION VITAL SIGNS: Blood pressure 131/57, respiration 20, pulse 58, temperature 97.2. HEENT: Head is normocephalic. Eyes, pupils normal, conjunctivae slightly pale. NECK: JVP low. Carotids equal. THORAX: AP diameter normal. LUNGS: Clear. CARDIOVASCULAR: S1 and S2. ABDOMEN: Soft. The patient had colostomy. EXTREMITIES: No clubbing. No cyanosis. LABORATORY DATA: WBC 6.4, hemoglobin 12.4, hematocrit 36.3, platelets 121. Sodium 146, potassium 3.0, BUN 18, creatinine 0.5, magnesium 1.4, protein 4.9, albumin 2.2. DIAGNOSES: Sinus tachycardia under control, carcinoma of the colon with metastasis, colostomy, gastrointestinal bleeding, anemia, and multiple blood transfusions. The patient also had earlier leukopenia and thrombocytopenia, status post exploratory laparotomy and lysis of adhesions, hypokalemia, and hypomagnesemia. PLAN: Plan is to give potassium and give magnesium, monitor H and H, and continue blood transfusions. Dr. Smyth did push enteroscopy today. The patient continues on propranolol, Inderal LA 120 mg p.o. daily, furosemide 20 mg IV q.12 hours, magnesium 400 mg b.i.d. The patient is also getting cefepime 1 g IV q.12 hours. We will follow with you. Sherrell Mishra MD
[2016-11-26] MEDS: HYDROmorphone 1 mg/ml ISec IVP PRN ×8 (03:18→22:44)
[2016-11-26 06:32] LABS: INR 1.18 (0.93-1.08); PARTIAL THROMBOPLASTIN TIME 32.7 Seconds (23.7-30.8); PROTHROMBIN TIME 12.7 Seconds (9.9-11.8)
[2016-11-26 06:59] LABS: ALB/GLOB RATIO 0.8 (1.1-1.8); ALT/SGPT 25 U/L (7-56); AST/SGOT 14 U/L (15-39); BLOOD UREA NITROGEN 12 mg/dL (7-21); CALCIUM 7.2 mg/dL (8.4-10.5); GFR AFRICAN-AMERICAN > 60; GFR NON-AFRICAN AMERICAN > 60; MAGNESIUM 1.6 mg/dL (1.7-2.2)
[2016-11-26] MEDS ORDERED: Magnesium Sulfate 2 GM in Sodium Chloride 0.9% 100 ML IVPB ONE (08:00)
[2016-11-26 08:15] LABS: BASO # 0.01 K/mm3 (0.0-2.0); BASO % 0.1 % (0.0-3.0); EOS % 0.3 % (1.5-5.0); GRAN # 8.82 (1.4-6.5); GRAN % 87.2 % (50.0-68.0); HEMOGLOBIN 13.7 gm/dL (12.0-16.0); LYMPH # 0.6 (1.2-3.4); LYMPH % 6.2 % (22.0-35.0); MEAN CELL VOLUME 89.8 fL (80.0-105.0); MEAN CORPUSCULAR HEMOGLOBIN 30.9 pg (25.0-35.0); MEAN CORPUSCULAR HGB CONC 34.4 g/dl (31.0-37.0); MEAN PLATELET VOLUME 10.9 fl (7.0-11.0); MONO # 0.6 (0.1-0.6); MONO % 6.2 % (1.0-6.0); PLATELET COUNT 104 10^3/uL (120.0-450.0); RBC 4.43 10^6/uL (3.5-6.1); RED CELL DISTRIBUTION WIDTH 16.9 % (11.5-14.5); WHITE BLOOD COUNT 10.1 10^3/ul (4.5-11.0)
--- NOTE | 2016-11-26 08:24 | CP.PCM.PN ---
<Dereje London - Last Filed: 11/26/16 09:43> Subjective - Date & Time of Evaluation Date of Evaluation: 11/26/16 Time of Evaluation: 08:21 - Subjective Subjective: General Surgery Dr. Mccracken Patient seen and examined this morning at bedside. No acute events overnight. Pt is well appearing, conversant, with no complaints at this time. She is tolerating her diet well. Patient states her pain in well controlled at this time. Denies F/C, N/V, SOB or CP. Objective - Vital Signs/Intake and Output Vital Signs (last 24 hours): Temp Pulse Resp BP Pulse Ox 97.6 F 59 L 18 154/72 H 96 11/26/16 04:00 11/26/16 08:00 11/26/16 08:00 11/26/16 08:00 11/26/16 08:00 Intake and Output: 11/26/16 11/26/16 06:59 18:59 Intake Total 1160 Output Total 2290 Balance -1130 - Medications Medications: Current Medications Acetaminophen (Tylenol 650 Mg Supp) 650 mg RC Q4H PRN PRN Reason: Fever >100.4 F Last Admin: 11/01/16 21:18 Dose: 650 mg Collagenase (Santyl) 1 gm TOP BID [facility] Last Admin: 11/25/16 10:36 Dose: 1 applic Diphenhydramine HCl (Benadryl) 50 mg IVP HS PRN PRN Reason: Insomnia Last Admin: 11/23/16 02:36 Dose: 50 mg Ergocalciferol (Drisdol 50,000 Intl Units Cap) 1 cap PO Q7D [facility] Last Admin: 11/19/16 18:04 Dose: Not Given Fentanyl (Duragesic) 1 patch TD Q72H [facility] Last Admin: 11/22/16 14:30 Dose: 1 patch Ferrous Sulfate (Feosol) 324 mg PO TID [facility] Last Admin: 11/25/16 17:21 Dose: 324 mg Furosemide (Lasix) 20 mg IVP Q12 [facility] Last Admin: 11/25/16 21:36 Dose: 20 mg Home Med (Home Med) 1 unit PO Q12H PRN PRN Reason: Inflammation Last Admin: 10/18/16 11:03 Dose: 1 unit Hydromorphone HCl (Dilaudid) 1 mg IVP Q1H PRN PRN Reason: Pain, severe (8-10) Last Admin: 11/26/16 05:16 Dose: 1 mg Micafungin Sodium 100 mg/ (Sodium Chloride) 100 mls @ 100 mls/hr IV DAILY [facility] PRN Reason: Protocol Stop: 11/28/16 10:01 Last Admin: 11/25/16 10:34 Dose: 100 mls/hr Potassium Chloride 40 meq/ (Dextrose/Sodium Chloride) 1,020 mls @ 80 mls/hr IV .[id number] [facility] Last Admin: 11/24/16 05:49 Dose: 80 mls/hr Cefepime HCl (Maxipime 1gm) 1 gm in 100 mls @ 100 mls/hr IVPB Q12 [facility] PRN Reason: Protocol Last Admin: 11/25/16 21:36 Dose: 100 mls/hr Acetaminophen (Ofirmev) 1,000 mg in 100 mls @ 400 mls/hr IVPB Q6H PRN PRN Reason: pain Stop: 11/27/16 07:46 Last Admin: 11/25/16 08:07 Dose: 400 mls/hr Potassium Chloride (Potassium Chloride 20 Meq/100 Ml) 20 meq in 100 mls @ 50 mls/hr IVPB Q2H [facility] Stop: 11/26/16 11:59 Magnesium Sulfate 2 gm/ Sodium (Chloride) 104 mls @ 102 mls/hr IVPB ONCE ONE Stop: 11/26/16 09:01 Magnesium Oxide (Mag-Ox) 400 mg PO BID [facility] Last Admin: 11/25/16 17:21 Dose: 400 mg Multi-Ingredient Ointment (Hydrophor Oint) 0 gm TOP Q6H PRN PRN Reason: Dry lip Multivitamins (Thera Tab) 1 tab PO 0800 [facility] Last Admin: 11/25/16 08:10 Dose: 1 tab Ondansetron HCl (Zofran Inj) 4 mg IVP Q4H PRN PRN Reason: Nausea/Vomiting Last Admin: 11/24/16 00:05 Dose: 4 mg Petrolatum (Desitin Maximum Strength Topical 40% Oint) 1 gm TOP Q4H PRN PRN Reason: Rash Last Admin: 10/23/16 22:39 Dose: 1 applic Potassium Chloride (K-Dur 20 Meq Er Tab) 40 meq PO DAILY [facility] Last Admin: 11/25/16 10:33 Dose: 40 meq Propranolol HCl (Inderal La) 120 mg PO DAILY [facility] Last Admin: 11/25/16 15:03 Dose: Not Given Sucralfate (Carafate Oral Susp) 1 gm PO BID [facility] Last Admin: 11/25/16 17:21 Dose: 1 gm - Labs Labs: 11/26/16 05:30 11/26/16 05:30 PT 12.7 Seconds (9.9-11.8) H 11/26/16 05:30 INR 1.18 (0.93-1.08) H 11/26/16 05:30 APTT 32.7 Seconds (23.7-30.8) H 11/26/16 05:30 - Constitutional Appears: Non-toxic, No Acute Distress - Head Exam Head Exam: ATRAUMATIC, NORMOCEPHALIC - Eye Exam Eye Exam: EOMI. absent: Scleral icterus - ENT Exam ENT Exam: Mucous Membranes Moist - Respiratory Exam Respiratory Exam: Clear to Ausculation Bilateral, NORMAL BREATHING PATTERN. absent: Accessory Muscle Use, Respiratory Distress - Cardiovascular Exam Cardiovascular Exam: REGULAR RHYTHM, +S1, +S2 - GI/Abdominal Exam GI & Abdominal Exam: Soft. absent: Distended, Firm, Guarding, Tenderness, Rebound Additional comments: Abdominal incision C/D/I. DEEJAY draining 620mL of serosanguinous fluid. Ostomy output 50mL. - Exam Additional comments: Salazar catheter in place, output 2850mL - Neurological Exam Neurological Exam: Alert, Awake, Oriented x3 - Psychiatric Exam Psychiatric exam: Normal Affect, Normal Mood - Skin Skin Exam: Dry, Normal Color, Warm Assessment and Plan - Assessment and Plan (Free Text) Assessment: 61 year old F with Colon CA and GI bleed. Plan: Monitor H&H, Hgb-13.7, Hct-39.8 Monitor electrolytes, today K=2.9 - will replete Strict I&O's Continue IV antibiotics for fungemia per ID Continue pain management, caution with use of narcotics Urine cx (+) for GN rods, will re-culture per ID F/U results of colonoscopy Will discuss with attending Dereje London PGY 1 <Yoan Mccracken - Last Filed: 12/02/16 23:59> Objective - Vital Signs/Intake and Output Vital Signs (last 24 hours): Temp Pulse Resp BP Pulse Ox 97.8 F 101 H 18 170/89 H 100 12/02/16 16:00 12/02/16 16:00 12/02/16 16:00 12/02/16 16:00 12/02/16 16:00 Intake and Output: 12/02/16 12/03/16 18:59 06:59 Intake Total 120 Output Total 450 600 Balance -450 -480 - Medications Medications: Current Medications Acetaminophen (Tylenol 650 Mg Supp) 650 mg RC Q4H PRN PRN Reason: Fever >100.4 F Last Admin: 11/01/16 21:18 Dose: 650 mg Al Hydrox/Mg Hydrox/Simethicone 30 ml/Diphenhydramine HCl 75 mg/Lidocaine 30 ml 0 ml PO QID [facility] Last Admin: 12/02/16 21:01 Dose: Not Given Diphenhydramine HCl (Benadryl) 50 mg IVP HS PRN PRN Reason: Insomnia Last Admin: 11/27/16 01:00 Dose: 50 mg Ergocalciferol (Drisdol 50,000 Intl Units Cap) 1 cap PO Q7D [facility] Last Admin: 11/19/16 18:04 Dose: Not Given Ferrous Sulfate (Feosol) 324 mg PO TID [facility] Last Admin: 12/02/16 18:16 Dose: Not Given Fluconazole (Diflucan) 200 mg PO DAILY [facility] PRN Reason: Protocol Stop: 12/12/16 10:01 Last Admin: 12/02/16 09:44 Dose: Not Given Home Med (Home Med) 1 unit PO Q12H PRN PRN Reason: Inflammation Last Admin: 10/18/16 11:03 Dose: 1 unit Hydralazine HCl (Apresoline) 10 mg IVP Q4H PRN PRN Reason: Systolic Blood Pressure Hydromorphone HCl (Dilaudid) 1 mg IVP Q1H PRN PRN Reason: Pain, moderate (4-7) Last Admin: 12/02/16 21:06 Dose: 1 mg Levetiracetam (Keppra 500mg Ivpb) 500 mg in 100 mls @ 400 mls/hr IV Q12 [facility] Last Admin: 12/02/16 21:06 Dose: 400 mls/hr Potassium Chloride/Dextrose (Potassium Chl 40 Meq In D5w) 1,000 mls @ 60 mls/ hr IV .[id number] [facility] Last Admin: 12/02/16 18:17 Dose: Not Given Magnesium Hydroxide (Milk Of Magnesia) 30 ml PO DAILY PRN PRN Reason: skin irritation Last Admin: 12/02/16 14:09 Dose: 30 ml Magnesium Oxide (Mag-Ox) 400 mg PO BID [facility] Last Admin: 12/02/16 18:16 Dose: Not Given Multi-Ingredient Ointment (Hydrophor Oint) 0 gm TOP Q6H PRN PRN Reason: Dry lip Multivitamins (Thera Tab) 1 tab PO 0800 [facility] Last Admin: 12/02/16 08:10 Dose: Not Given Propranolol HCl (Inderal La) 120 mg PO DAILY [facility] Last Admin: 12/02/16 09:44 Dose: Not Given Sucralfate (Carafate Oral Susp) 1 gm PO BID [facility] Last Admin: 12/02/16 18:16 Dose: Not Given - Labs Labs: 12/02/16 06:00 12/02/16 06:00 PT 12.9 Seconds (9.9-11.8) H 12/02/16 06:00 INR 1.19 (0.93-1.08) H 12/02/16 06:00 APTT 32.9 Seconds (23.7-30.8) H 12/02/16 06:00 Assessment and Plan - Assessment and Plan (Free Text) Plan: Patient was seen and examined by me. I agree with assessment and plan as per resident's note.
[2016-11-26] MEDS: Multivitamin Therapeutic Tab PO SCH (08:45)
[2016-11-26] MEDS ORDERED: Potassium Chloride 20 mEq/15 ml LIQ UD PO STA (08:46)
--- NOTE | 2016-11-26 09:23 | PN ---
DATE: 11/24/2016 ROOM: 362. BED: 2. REASON FOR CONSULTATION: Tachycardia. HISTORY OF PRESENT ILLNESS: The patient with history of colon cancer with metastasis status post colostomy, thrombocytopenia, anemia, GI bleeding, leukopenia, was admitted with severe anemia. The patient then developed obstruction for which he had surgery. The patient developed sinus tachycardia. The patient now lying comfortably in bed without chest pain, shortness of breath or palpitation. PHYSICAL EXAMINATION VITAL SIGNS: Blood pressure 143/60, respirations 20, pulse 53 and temperature 97.5. HEENT: Head is normocephalic. Eyes: Pupil normal. Conjunctivae pale. NECK: JVP low. Carotid equal. AP diameter normal. LUNGS: Clear. CARDIOVASCULAR: S1, S2. ABDOMEN: Surgery as mentioned. EXTREMITIES: No clubbing. No cyanosis. LABORATORY DATA: WBC 3.6, hemoglobin 7.2, hematocrit 21.1, platelet 94. Sodium 141, potassium 3.5, BUN 22, creatinine 0.5, total protein is low 4.4, albumin is low at 2.1 and alkaline phosphatase 175. DIAGNOSES: Sinus tachycardia, colon cancer with metastasis, status post bowel obstruction, status post colostomy, status post exploratory laparotomy, lysis of adhesions, gastrointestinal bleeding, anemia, thrombocytopenia, leukopenia, sepsis, status post multiple blood transfusions, low proteins, low potassium. PLAN: The patient continues to have blood transfusions. The patient also had multiple albumin transfusions. The patient on daptomycin mg IV q.24 hour. The patient is getting IV fluid with KCL in it which will help hypokalemia, Inderal LA 120 mg p.o. daily for sinus tachycardia, Maxipime 1 g IV q.12 hour, micafungin 100 mg IV daily, Protonix 40 mg IV q.12 hour. The patient's sinus tachycardia is under control, but the patient continue to bleed and continue to have multiple blood transfusions. The patient also been treated for sepsis. We will continue to follow with you. Sherrell Mishra MD [facility]
[2016-11-26] MEDS: Sucralfate 1 gm/10 ml Oral Susp UD PO SCH ×2 (09:49→18:09)
[2016-11-26] MEDS: Cefepime 1gm in NS 100ml 1 GM/100 ML BAG IVPB SCH (09:50)
[2016-11-26] MEDS: Potassium Chloride 20 mEq ER Tab PO SCH (09:51)
[2016-11-26] MEDS: Magnesium Oxide 400 mg Tab UD PO SCH ×2 (09:53→18:10)
[2016-11-26] MEDS: Propranolol 60 mg ER Cap PO SCH (09:56)
--- NOTE | 2016-11-26 09:57 | CP.PCM.PN ---
Subjective - Date & Time of Evaluation Date of Evaluation: 11/26/16 Time of Evaluation: 09:40 - Subjective Subjective: Comfortable in bed but still feels weak, still not eating well. No fevers overnight. Objective - Vital Signs/Intake and Output Vital Signs (last 24 hours): Temp Pulse Resp BP Pulse Ox 97.6 F 58 L 17 151/74 H 97 11/26/16 04:00 11/26/16 06:02 11/26/16 06:02 11/26/16 06:02 11/26/16 06:02 Intake and Output: 11/25/16 11/26/16 18:59 06:59 Intake Total 2060 1160 Output Total 1230 1340 Balance 830 -180 - Medications Medications: Current Medications Acetaminophen (Tylenol 650 Mg Supp) 650 mg RC Q4H PRN PRN Reason: Fever >100.4 F Last Admin: 11/01/16 21:18 Dose: 650 mg Collagenase (Santyl) 1 gm TOP BID [facility] Last Admin: 11/25/16 10:36 Dose: 1 applic Diphenhydramine HCl (Benadryl) 50 mg IVP HS PRN PRN Reason: Insomnia Last Admin: 11/23/16 02:36 Dose: 50 mg Ergocalciferol (Drisdol 50,000 Intl Units Cap) 1 cap PO Q7D [facility] Last Admin: 11/19/16 18:04 Dose: Not Given Fentanyl (Duragesic) 1 patch TD Q72H [facility] Last Admin: 11/22/16 14:30 Dose: 1 patch Ferrous Sulfate (Feosol) 324 mg PO TID [facility] Last Admin: 11/25/16 17:21 Dose: 324 mg Furosemide (Lasix) 20 mg IVP Q12 [facility] Last Admin: 11/25/16 21:36 Dose: 20 mg Home Med (Home Med) 1 unit PO Q12H PRN PRN Reason: Inflammation Last Admin: 10/18/16 11:03 Dose: 1 unit Hydromorphone HCl (Dilaudid) 1 mg IVP Q1H PRN PRN Reason: Pain, severe (8-10) Last Admin: 11/26/16 05:16 Dose: 1 mg Micafungin Sodium 100 mg/ (Sodium Chloride) 100 mls @ 100 mls/hr IV DAILY [facility] PRN Reason: Protocol Stop: 11/28/16 10:01 Last Admin: 11/25/16 10:34 Dose: 100 mls/hr Potassium Chloride 40 meq/ (Dextrose/Sodium Chloride) 1,020 mls @ 80 mls/hr IV .[id number] [facility] Last Admin: 11/24/16 05:49 Dose: 80 mls/hr Cefepime HCl (Maxipime 1gm) 1 gm in 100 mls @ 100 mls/hr IVPB Q12 [facility] PRN Reason: Protocol Last Admin: 11/25/16 21:36 Dose: 100 mls/hr Acetaminophen (Ofirmev) 1,000 mg in 100 mls @ 400 mls/hr IVPB Q6H PRN PRN Reason: pain Stop: 11/27/16 07:46 Last Admin: 11/25/16 08:07 Dose: 400 mls/hr Magnesium Oxide (Mag-Ox) 400 mg PO BID [facility] Last Admin: 11/25/16 17:21 Dose: 400 mg Multi-Ingredient Ointment (Hydrophor Oint) 0 gm TOP Q6H PRN PRN Reason: Dry lip Multivitamins (Thera Tab) 1 tab PO 0800 [facility] Last Admin: 11/25/16 08:10 Dose: 1 tab Ondansetron HCl (Zofran Inj) 4 mg IVP Q4H PRN PRN Reason: Nausea/Vomiting Last Admin: 11/24/16 00:05 Dose: 4 mg Petrolatum (Desitin Maximum Strength Topical 40% Oint) 1 gm TOP Q4H PRN PRN Reason: Rash Last Admin: 10/23/16 22:39 Dose: 1 applic Potassium Chloride (K-Dur 20 Meq Er Tab) 40 meq PO DAILY [facility] Last Admin: 11/25/16 10:33 Dose: 40 meq Propranolol HCl (Inderal La) 120 mg PO DAILY [facility] Last Admin: 11/25/16 15:03 Dose: Not Given Sucralfate (Carafate Oral Susp) 1 gm PO BID [facility] Last Admin: 11/25/16 17:21 Dose: 1 gm - Labs Labs: 11/25/16 17:50 11/25/16 05:00 PT 12.8 Seconds (9.9-11.8) H 11/25/16 19:10 INR 1.19 (0.93-1.08) H 11/25/16 19:10 APTT 32.1 Seconds (23.7-30.8) H 11/25/16 19:10 - Constitutional Appears: Chronically Ill - Head Exam Head Exam: NORMAL INSPECTION - Neck Exam Neck Exam: absent: Meningismus - Respiratory Exam Respiratory Exam: Decreased Breath Sounds - Cardiovascular Exam Cardiovascular Exam: +S1, +S2 - GI/Abdominal Exam GI & Abdominal Exam: Soft. 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, probably from port-a-cath S/P removal POD # 14 (since the patient had been on TPN through the port) S/P Methicillin-resistant coagulase negative staph in repeat blood cx bottle, consider bacteremia R/O secondary to PICC line R/O contamination (since only 1 of 4 bottles were positive for the organism) gram negative bacilli in the urine in a patient with Minor catheter - minor catheter has been removed Partial small bowel obstruction, persistent with colonic stricture S/P exploratory laparotomy, lysis of adhesions, repair of small bowel enterotomy and partial sigmoidectomy with end-colostomy Acute stomatitis and mucositis, as well as esophageal ulcers (esophagitis) and enteritis - no CMV noted on biopsy sample of the esophageal ulcers - consider Susy Esophagitis Neutropenia probably from chemotherapy, resolved HTN 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
[2016-11-26] MEDS: Micafungin 100 MG in Sodium Chloride 0.9% 100 ML IV SCH (10:41)
--- NOTE | 2016-11-26 10:59 | PN ---
DATE: 11/22/2016 REASON FOR CONSULTATION: Followup cardiac evaluation, tachycardia, anemia status post colostomy. BRIEF CLINICAL HISTORY: This is a 61-year-old female with a past medical history significant for colon cancer status post colostomy done, postop anemia, complaining of pain and going to have a CAT scan. Denies any chest pain. PHYSICAL EXAMINATION: VITAL SIGNS: Temperature afebrile, heart rate 69, blood pressure 142/92. HEENT: PERRLA. Extraocular muscles are intact. NECK: Supple. No carotids or thyromegaly. CHEST: Clear to auscultation. HEART: S1, S2 regular. ABDOMEN: Soft. EXTREMITIES: Clubbing or cyanosis negative. LABORATORY DATA: Blood workup as follows; WBC 4.7, hemoglobin 9, hematocrit 36.2, platelet count 107. Chemistry shows sodium 142, potassium 3.6, chloride of 105, *------*, anion gap of 10, BUN 13 and creatinine 0.5. Total protein 5, albumin 2.2 and albumin globulin ratio 0.8. IMPRESSION: Anemia, status post packed RBC transfusion and fresh frozen plasma transfusion, status post colostomy, status post exploratory laparotomy, lysis of adhesions *-----* colostomy, carcinoma of colon, *------* tachycardia improved. Protein-calorie malnutrition moderate to severe, which was not present on admission. RECOMMENDATION: Give nutrition support as tolerated. Continue Inderal or propranolol 120 mg daily. The patient is going for a CAT scan to rule out any obstruction. We will follow with you. Her CV status is stable. We will supplement potassium for low potassium. Thank you *------* in taking care of the patient Arthur Rehman. Sherrell Busby MD
--- NOTE | 2016-11-26 11:37 | CP.PCM.PN ---
Subjective - Date & Time of Evaluation Date of Evaluation: 11/26/16 Time of Evaluation: 08:45 - Subjective Subjective: S&E, chart reviewed. Awake and alert, denies diarrhea, just some abdominal cramps, tolerate PO intake. No acute overnight events reported. No N/V. Objective - Vital Signs/Intake and Output Vital Signs (last 24 hours): Temp Pulse Resp BP Pulse Ox 97.6 F 61 18 152/72 H 96 11/26/16 04:00 11/26/16 09:56 11/26/16 08:00 11/26/16 09:56 11/26/16 08:00 Intake and Output: 11/26/16 11/26/16 06:59 18:59 Intake Total 1160 Output Total 2290 Balance -1130 - Medications Medications: Current Medications Acetaminophen (Tylenol 650 Mg Supp) 650 mg RC Q4H PRN PRN Reason: Fever >100.4 F Last Admin: 11/01/16 21:18 Dose: 650 mg Collagenase (Santyl) 1 gm TOP BID [facility] Last Admin: 11/25/16 10:36 Dose: 1 applic Diphenhydramine HCl (Benadryl) 50 mg IVP HS PRN PRN Reason: Insomnia Last Admin: 11/23/16 02:36 Dose: 50 mg Ergocalciferol (Drisdol 50,000 Intl Units Cap) 1 cap PO Q7D [facility] Last Admin: 11/19/16 18:04 Dose: Not Given Fentanyl (Duragesic) 1 patch TD Q72H [facility] Last Admin: 11/22/16 14:30 Dose: 1 patch Ferrous Sulfate (Feosol) 324 mg PO TID [facility] Last Admin: 11/26/16 09:53 Dose: 324 mg Furosemide (Lasix) 20 mg IVP Q12 [facility] Last Admin: 11/26/16 09:53 Dose: 20 mg Home Med (Home Med) 1 unit PO Q12H PRN PRN Reason: Inflammation Last Admin: 10/18/16 11:03 Dose: 1 unit Hydromorphone HCl (Dilaudid) 1 mg IVP Q1H PRN PRN Reason: Pain, severe (8-10) Last Admin: 11/26/16 05:16 Dose: 1 mg Micafungin Sodium 100 mg/ (Sodium Chloride) 100 mls @ 100 mls/hr IV DAILY [facility] PRN Reason: Protocol Stop: 11/28/16 10:01 Last Admin: 11/26/16 10:41 Dose: 100 mls/hr Potassium Chloride 40 meq/ (Dextrose/Sodium Chloride) 1,020 mls @ 80 mls/hr IV .[id number] [facility] Last Admin: 11/24/16 05:49 Dose: 80 mls/hr Acetaminophen (Ofirmev) 1,000 mg in 100 mls @ 400 mls/hr IVPB Q6H PRN PRN Reason: pain Stop: 11/27/16 07:46 Last Admin: 11/26/16 10:12 Dose: 400 mls/hr Potassium Chloride (Potassium Chloride 20 Meq/100 Ml) 20 meq in 100 mls @ 50 mls/hr IVPB Q2H [facility] Stop: 11/26/16 11:59 Last Admin: 11/26/16 10:19 Dose: 50 mls/hr Magnesium Oxide (Mag-Ox) 400 mg PO BID [facility] Last Admin: 11/26/16 09:53 Dose: 400 mg Multi-Ingredient Ointment (Hydrophor Oint) 0 gm TOP Q6H PRN PRN Reason: Dry lip Multivitamins (Thera Tab) 1 tab PO 0800 [facility] Last Admin: 11/25/16 08:10 Dose: 1 tab Ondansetron HCl (Zofran Inj) 4 mg IVP Q4H PRN PRN Reason: Nausea/Vomiting Last Admin: 11/24/16 00:05 Dose: 4 mg Petrolatum (Desitin Maximum Strength Topical 40% Oint) 1 gm TOP Q4H PRN PRN Reason: Rash Last Admin: 10/23/16 22:39 Dose: 1 applic Potassium Chloride (K-Dur 20 Meq Er Tab) 40 meq PO DAILY [facility] Last Admin: 11/26/16 09:51 Dose: 40 meq Potassium Chloride (K-Dur 20 Meq Er Tab) 40 meq PO ONCE ONE Stop: 11/26/16 13:01 Propranolol HCl (Inderal La) 120 mg PO DAILY [facility] Last Admin: 11/26/16 09:56 Dose: 120 mg Sucralfate (Carafate Oral Susp) 1 gm PO BID [facility] Last Admin: 11/26/16 09:49 Dose: 1 gm - Labs Labs: 11/26/16 05:30 11/26/16 05:30 PT 12.7 Seconds (9.9-11.8) H 11/26/16 05:30 INR 1.18 (0.93-1.08) H 11/26/16 05:30 APTT 32.7 Seconds (23.7-30.8) H 11/26/16 05:30 - Constitutional Appears: Non-toxic, No Acute Distress - Eye Exam Eye Exam: Normal appearance. absent: Scleral icterus - ENT Exam ENT Exam: Mucous Membranes Moist - Neck Exam Neck Exam: Normal Inspection - Respiratory Exam Respiratory Exam: NORMAL BREATHING PATTERN. absent: Respiratory Distress - Cardiovascular Exam Cardiovascular Exam: +S1, +S2 - GI/Abdominal Exam GI & Abdominal Exam: Soft, Tenderness, Normal Bowel Sounds. absent: Guarding, Rebound Additional comments: Incision dry and intact, DEEJAY drain serosanguenous - Extremities Exam Extremities Exam: absent: Calf Tenderness - Neurological Exam Neurological Exam: Alert, Awake, Oriented x3 - Skin Skin Exam: Dry, Warm Assessment and Plan - Assessment and Plan (Free Text) Assessment: ASSESSMENT: Stage IV colon cancer with metastasis to the done GI BLeed,, had push enteroscopy, no bleeding found in small bowel S/P Exp Laparotomy, lysis of adhesion, repair of small bowel enterotomy, partial sigmoidectomy w/end-colostomy Anemia Hyperkalemia Fungemia PLAN: on clear liquid monitor CBC & electrolytes and replete as needed on Carafate on IV antibiotics Potassium CL 20 meq X 2, see order DVT prophylaxsis may plan for colonoscopy tomorrow, will discuss with hematology Case discussed with Dr. Null
[2016-11-26] MEDS: Collagenase 250 Units/gm Ointment(30 gm) TOP SCH ×2 (12:00→18:11)
[2016-11-26] MEDS ORDERED: Potassium Chloride 20 mEq ER Tab PO ONE (13:00)
[2016-11-26] MEDS: Potassium Chloride 40 MEQ in Dextrose 5%/0.9% NS 1,000 ML IV SCH (14:00)
[2016-11-26] MEDS: Aluminum Hydroxide/Magnesium 30 ML, DiphenhydrAMINE 75 MG, Lidocaine 2% Viscous 30 ML PO SCH ×3 (14:23→22:54)
--- NOTE | 2016-11-26 21:57 | PN ---
DATE: 11/26/2016 SUBJECTIVE: The patient was seen in the ICU. She is sitting up in bed. She is awake, she is alert. She complains of pain in her abdomen. She denies any chest tightness. She complains of nausea. PHYSICAL EXAMINATION: GENERAL: An elderly lady sitting in bed in the ICU. VITAL SIGNS: Blood pressure 152/72, heart rate 61, respiratory rate 18, temperature is 97.6. HEENT: Normocephalic and atraumatic. Positive pallor. NECK: Supple. No JVD. LUNGS: Bilateral equal air entry. Bilateral rhonchi. CARDIAC: S1, S2. Regular rate and rhythm. No murmur. No rubs. ABDOMEN: Obese, distended, soft. Bowel sounds present. Positive colostomy. EXTREMITIES: Chronic stasis changes, wrinkling of the skin, 2+ pitting edema. INTAKE AND OUTPUT: 3220/3520. LABORATORY DATA: WBC 10, hemoglobin 13.7, hematocrit 40, platelets 104. Status post transfusion of 4 units on 11/24. Sodium 146, potassium 2.9, chloride 110, CO2 of 29, BUN 12, creatinine 0.4, glucose 99, calcium 7.2, magnesium 1.6, albumin 2.0, corrected calcium is 8.6. Push enteroscopy done on 11/24 showed normal stomach, normal examined duodenum, examined portion of jejunum was normal. ASSESSMENT: 1. Stage IV colon cancer with bone metastases. 2. Gastrointestinal bleed. 3. Severe anemia, status post 4 units of PRBCs on 11/24. 4. Thrombocytopenia. 5. Severe hypokalemia. 6. Hypernatremia. 7. Severe malnutrition, albumin 2.0. 8. Status post palliative colostomy. 9. Hypomagnesemia. PLAN: 1. Replace potassium aggressively. 2. Replace magnesium IV piggyback. 3. Continue IV fluids, hypotonic IV fluids. 4. The patient has a history of fungemia, continue antifungals. 5. Avoid magnesium oxide orally. 6. Increase IV fluids to 100 mL/hour. 7. Monitor urine output closely. 8. GI followup. 9. Advance diet if okayed with GI. Adele Griffin MD
--- NOTE | 2016-11-27 00:51 | OP ---
PROCEDURE DATE: 11/17/2016 PREOPERATIVE DIAGNOSES: Recurrent metastatic colon cancer with rectal bleeding and obstructing perianastomotic rectal lesion. POSTOPERATIVE DIAGNOSES: Recurrent metastatic colon cancer with rectal bleeding and obstructing perianastomotic rectal lesion and dense intraabdominal adhesions. PROCEDURE PERFORMED: 1. Marquita procedure with end colostomy of descending colon. 2. Splenic flexure mobilization. 3. Lysis of dense intraabdominal and pelvic adhesions. 4. Multiple enterotomy repair. 5. Multiple enterorrhaphy repair. SURGEON: Yoan Mccracken MD SALVAGE REPAIRER: Dr. Galeas. TYPE OF ANESTHESIA: General endotracheal anesthesia. ANESTHESIA ADMINISTERED BY: Marino Bergman MD ESTIMATED BLOOD LOSS: 100 mL. SPECIMEN: Descending and sigmoid colon. INDICATIONS: The patient is a 61-year-old female with history of rectal cancer, status post low-anterior resection, currently returning with persistent GI bleed with partial small bowel obstruction as well as an obstructing mass at the site of the pelvic anastomosis. The patient continued to bleed and currently was stabilized and the decision was made to proceed to the operating room in order to put a colostomy resection of the questionable mass of the anastomotic area as well as evaluation of abdominal cavity for the small bowel partial obstruction. DESCRIPTION OF PROCEDURE: The patient was brought to the operating room, placed on the operating table in a supine position. The patient was connected to the EKG, blood pressure, and pulse oximetry monitors. The patient then underwent general endotracheal anesthesia and was prepped and draped in usual sterile fashion. Per standard time-out, procedure took place and everybody in the room agreed to the patient's identity, diagnosis, and procedure to be performed. First an incision was made in the midline extending from midepigastrium down to symphysis pubis. Careful dissection was done through subcutaneous fat and access to the abdominal cavity was obtained. It appeared that there were multiple areas of dense intraabdominal as well as pelvic adhesion of the small bowel to itself and to the anterior abdominal wall. There was also some colonic distention at this time. There was also some omental adhesions to the anterior abdominal wall as well as multiple adhesions in the pelvis. After a tedious dissection of about an hour and 15 minutes, we are finally able to dissect all of the omentum out of the way as well as dissect and straighten out small bowel in its midsection where there appeared to be a partial obstruction due to the adhesions. The proximal bowel appeared to be slightly distended compared to the distal bowel. All of these adhesions were taken down carefully. However, multiple areas of the deserosalization were noted and those were repaired with 3 -0 silk in four different places. Next, we concentrated on evaluation of the distal colon and the area of the pelvic anastomosis. A tedious dissection took place wherein the colon was carefully dissected off the underlying tissues and the retrorectal space was accessed and mobilized. The area of the anastomosis was mobilized, dissected out carefully, and contour TA stapler was fired in order to transect that area. Once this was done, I then elevated the specimen and carefully dissected out the mesentery of the descending colon. In order to gain adequate length for the colostomy creation, splenic flexure was mobilized carefully and brought down in order to have adequate length and no tension at the colostomy site. Once this was completed, the abdominal cavity was copiously irrigated. There were no other areas of adhesions. There were no palpable masses noted on the liver surface or any of the intraabdominal organs. Once the area of the rectosigmoid anastomosis was mobilized and transected with a TA stapler, I noted that there was some opening at the end of the rectal stump and this was carefully opened and evaluated. All the edges of the serosa and mucosa of the rectum were identified. Then careful palpation into the specimen revealed no other masses within it. The opening was now closed with a 3-0 silk running suture and inverted towards the inside of the rectum with another row of sutures. Once this was completed, I then proceeded with mobilization of the mesentery of the descending colon and elevated adequately in order to gain adequate length for the colostomy. Distal descending and sigmoid colon were now transected and the mesentery of the portion of the colon was also transected using Harmonic scalpel and send as the specimen. Now, noticing that there were a lot of melanotic fluids within the colon, I then carefully evaluated the entire colon and did not note any lesions along the course of the colon all the way up to the cecum. Small bowel was also carefully traced and appeared to also have some blood within it and therefore in order to identified whether it was definitely blood, about 30 cm proximal to the ileocecal valve, the transverse incision of the ileum was made and revealed presence of melena within the distal small bowel. Now, opening for the end colostomy creation was done using the Addie clamp, excising the round [place] of skin overlying the lateral aspect of the rectus muscle on the left abdomen and the mid portion of it. The incision was carried adequately enough to be able to push two fingers through the incision through the fascia. Once this was completed, I then proceeded to bringing out the colostomy and suturing the edges of the colon to the fascia in order to avoid retraction within the colostomy. The abdominal cavity was also copiously irrigated and all the irrigant fluid suctioned out and the abdominal wound was closed using the #1 PDS in a running fashion. Once completely closed, the subcutaneous tissues were re-approximated using 2-0 Vicryl and the skin was closed using 4-0 Monocryl. Now that the midline incision was completely closed, I then proceeded with maturation of the colostomy using 3-0 Vicryl stitches in an interrupted single-layered fashion. Once this maturation was competed, an ostomy bag was attached to the colostomy and the patient was awakened and transferred to the recovery room for further observation. Yoan Mccracken MD [facility]
[2016-11-27] MEDS: DiphenhydrAMINE 50 mg/ml Inj IVP PRN (01:00)
[2016-11-27] MEDS: HYDROmorphone 1 mg/ml ISec IVP PRN ×10 (01:17→23:52)
[2016-11-27] MEDS: Potassium Chloride 40 MEQ in Dextrose 5%/0.9% NS 1,000 ML IV SCH ×2 (05:16→18:50)
[2016-11-27 07:01] LABS: INR 1.23 (0.93-1.08); PARTIAL THROMBOPLASTIN TIME 35.4 Seconds (23.7-30.8); PROTHROMBIN TIME 13.3 Seconds (9.9-11.8)
[2016-11-27 07:33] LABS: GFR AFRICAN-AMERICAN > 60; GFR NON-AFRICAN AMERICAN > 60
--- NOTE | 2016-11-27 08:05 | CP.PCM.PN ---
<Dereje London - Last Filed: 11/27/16 08:23> Subjective - Date & Time of Evaluation Date of Evaluation: 11/27/16 Time of Evaluation: 08:00 - Subjective Subjective: General Surgery Dr. Mccracken Patient seen and examined this morning at bedside. No acute events over night. Patient states that she has been trying to not ask for her pain medications but has been experiencing significant pain in the lower portion of her abdomen and low back. She is tolerating her diet well. Denies F/C, N/V, SOB or CP Objective - Vital Signs/Intake and Output Vital Signs (last 24 hours): Temp Pulse Resp BP Pulse Ox 98.5 F 55 L 18 160/95 H 98 11/26/16 18:10 11/26/16 18:10 11/26/16 18:10 11/26/16 22:43 11/26/16 18:10 Intake and Output: 11/27/16 11/27/16 06:59 18:59 Intake Total 360 120 Output Total 140 800 Balance 220 -680 - Medications Medications: Current Medications Acetaminophen (Tylenol 650 Mg Supp) 650 mg RC Q4H PRN PRN Reason: Fever >100.4 F Last Admin: 11/01/16 21:18 Dose: 650 mg Collagenase (Santyl) 1 gm TOP BID [facility] Last Admin: 11/26/16 18:11 Dose: Not Given Al Hydrox/Mg Hydrox/Simethicone 30 ml/Diphenhydramine HCl 75 mg/Lidocaine 30 ml 0 ml PO QID [facility] Last Admin: 11/26/16 22:54 Dose: Not Given Diphenhydramine HCl (Benadryl) 50 mg IVP HS PRN PRN Reason: Insomnia Last Admin: 11/27/16 01:00 Dose: 50 mg Ergocalciferol (Drisdol 50,000 Intl Units Cap) 1 cap PO Q7D [facility] Last Admin: 11/19/16 18:04 Dose: Not Given Fentanyl (Duragesic) 1 patch TD Q72H [facility] Last Admin: 11/22/16 14:30 Dose: 1 patch Ferrous Sulfate (Feosol) 324 mg PO TID [facility] Last Admin: 11/26/16 18:10 Dose: 324 mg Furosemide (Lasix) 20 mg IVP Q12 [facility] Last Admin: 11/26/16 22:43 Dose: 20 mg Home Med (Home Med) 1 unit PO Q12H PRN PRN Reason: Inflammation Last Admin: 10/18/16 11:03 Dose: 1 unit Hydromorphone HCl (Dilaudid) 1 mg IVP Q1H PRN PRN Reason: Pain, severe (8-10) Last Admin: 11/27/16 04:35 Dose: 1 mg Micafungin Sodium 100 mg/ (Sodium Chloride) 100 mls @ 100 mls/hr IV DAILY [facility] PRN Reason: Protocol Stop: 11/28/16 10:01 Last Admin: 11/26/16 10:41 Dose: 100 mls/hr Potassium Chloride 40 meq/ (Dextrose/Sodium Chloride) 1,020 mls @ 100 mls/hr IV .[id number] [facility] Last Admin: 11/27/16 05:16 Dose: 100 mls/hr Magnesium Oxide (Mag-Ox) 400 mg PO BID [facility] Last Admin: 11/26/16 18:10 Dose: 400 mg Multi-Ingredient Ointment (Hydrophor Oint) 0 gm TOP Q6H PRN PRN Reason: Dry lip Multivitamins (Thera Tab) 1 tab PO 0800 [facility] Last Admin: 11/26/16 08:45 Dose: 1 tab Ondansetron HCl (Zofran Inj) 4 mg IVP Q4H PRN PRN Reason: Nausea/Vomiting Last Admin: 11/24/16 00:05 Dose: 4 mg Petrolatum (Desitin Maximum Strength Topical 40% Oint) 1 gm TOP Q4H PRN PRN Reason: Rash Last Admin: 10/23/16 22:39 Dose: 1 applic Potassium Chloride (K-Dur 20 Meq Er Tab) 40 meq PO DAILY [facility] Last Admin: 11/26/16 09:51 Dose: 40 meq Propranolol HCl (Inderal La) 120 mg PO DAILY [facility] Last Admin: 11/26/16 09:56 Dose: 120 mg Sucralfate (Carafate Oral Susp) 1 gm PO BID [facility] Last Admin: 11/26/16 18:09 Dose: 1 gm - Labs Labs: 11/27/16 06:30 11/26/16 05:30 PT 13.3 Seconds (9.9-11.8) H 11/27/16 06:30 INR 1.23 (0.93-1.08) H 11/27/16 06:30 APTT 35.4 Seconds (23.7-30.8) H 11/27/16 06:30 - Constitutional Appears: Non-toxic, No Acute Distress - Head Exam Head Exam: ATRAUMATIC, NORMOCEPHALIC - Eye Exam Eye Exam: EOMI - ENT Exam ENT Exam: Mucous Membranes Moist - Respiratory Exam Respiratory Exam: NORMAL BREATHING PATTERN. absent: Accessory Muscle Use, Respiratory Distress - Cardiovascular Exam Cardiovascular Exam: REGULAR RHYTHM - GI/Abdominal Exam GI & Abdominal Exam: Soft, Tenderness. absent: Distended, Firm, Rebound Additional comments: Tender in the RLQ in close proximity to DEEJAY drain. DEEJAY drained 150cc of serous fluid over 12 hours. Surgical incision is C/D/I. Ostomy draining 100cc of dark brown fecal material. - Exam Additional comments: Salazar cath draining 650cc over 12 hours. - Neurological Exam Neurological Exam: Alert, Awake, Oriented x3 - Psychiatric Exam Psychiatric exam: Normal Affect, Normal Mood - Skin Skin Exam: Dry, Normal Color, Warm Assessment and Plan - Assessment and Plan (Free Text) Assessment: 61 year old F with Colon CA and GI bleed, s/p Ex-Lap, NATE, Marquita's POD 10. Plan: Will remove DEEJAY drain today Monitor H+H, AM labs pending. Transfuse prn Monitor electrolytes, AM labs pending. Replete prn Pain management Strict I&Os Continue IV Abx for fungemia per ID Colonoscopy scheduled for today is cancelled per GI, will re-eval if H+H drops again. Discussed with Dr. Kaykay London PGY1 <Yoan Mccracken - Last Filed: 12/02/16 23:59> Objective - Vital Signs/Intake and Output Vital Signs (last 24 hours): Temp Pulse Resp BP Pulse Ox 97.8 F 101 H 18 170/89 H 100 12/02/16 16:00 12/02/16 16:00 12/02/16 16:00 12/02/16 16:00 12/02/16 16:00 Intake and Output: 12/02/16 12/03/16 18:59 06:59 Intake Total 120 Output Total 450 600 Balance -450 -480 - Medications Medications: Current Medications Acetaminophen (Tylenol 650 Mg Supp) 650 mg RC Q4H PRN PRN Reason: Fever >100.4 F Last Admin: 11/01/16 21:18 Dose: 650 mg Al Hydrox/Mg Hydrox/Simethicone 30 ml/Diphenhydramine HCl 75 mg/Lidocaine 30 ml 0 ml PO QID [facility] Last Admin: 12/02/16 21:01 Dose: Not Given Diphenhydramine HCl (Benadryl) 50 mg IVP HS PRN PRN Reason: Insomnia Last Admin: 11/27/16 01:00 Dose: 50 mg Ergocalciferol (Drisdol 50,000 Intl Units Cap) 1 cap PO Q7D [facility] Last Admin: 11/19/16 18:04 Dose: Not Given Ferrous Sulfate (Feosol) 324 mg PO TID [facility] Last Admin: 12/02/16 18:16 Dose: Not Given Fluconazole (Diflucan) 200 mg PO DAILY [facility] PRN Reason: Protocol Stop: 12/12/16 10:01 Last Admin: 12/02/16 09:44 Dose: Not Given Home Med (Home Med) 1 unit PO Q12H PRN PRN Reason: Inflammation Last Admin: 10/18/16 11:03 Dose: 1 unit Hydralazine HCl (Apresoline) 10 mg IVP Q4H PRN PRN Reason: Systolic Blood Pressure Hydromorphone HCl (Dilaudid) 1 mg IVP Q1H PRN PRN Reason: Pain, moderate (4-7) Last Admin: 12/02/16 21:06 Dose: 1 mg Levetiracetam (Keppra 500mg Ivpb) 500 mg in 100 mls @ 400 mls/hr IV Q12 [facility] Last Admin: 12/02/16 21:06 Dose: 400 mls/hr Potassium Chloride/Dextrose (Potassium Chl 40 Meq In D5w) 1,000 mls @ 60 mls/ hr IV .[id number] [facility] Last Admin: 12/02/16 18:17 Dose: Not Given Magnesium Hydroxide (Milk Of Magnesia) 30 ml PO DAILY PRN PRN Reason: skin irritation Last Admin: 12/02/16 14:09 Dose: 30 ml Magnesium Oxide (Mag-Ox) 400 mg PO BID [facility] Last Admin: 12/02/16 18:16 Dose: Not Given Multi-Ingredient Ointment (Hydrophor Oint) 0 gm TOP Q6H PRN PRN Reason: Dry lip Multivitamins (Thera Tab) 1 tab PO 0800 [facility] Last Admin: 12/02/16 08:10 Dose: Not Given Propranolol HCl (Inderal La) 120 mg PO DAILY [facility] Last Admin: 12/02/16 09:44 Dose: Not Given Sucralfate (Carafate Oral Susp) 1 gm PO BID [facility] Last Admin: 12/02/16 18:16 Dose: Not Given - Labs Labs: 12/02/16 06:00 12/02/16 06:00 PT 12.9 Seconds (9.9-11.8) H 12/02/16 06:00 INR 1.19 (0.93-1.08) H 12/02/16 06:00 APTT 32.9 Seconds (23.7-30.8) H 12/02/16 06:00 Assessment and Plan - Assessment and Plan (Free Text) Plan: Patient was seen and examined by me. I agree with assessment and plan as per resident's note.
--- NOTE | 2016-11-27 08:19 | CP.PCM.PN ---
<Cassie Arcos - Last Filed: 11/27/16 10:47> Subjective - Date & Time of Evaluation Date of Evaluation: 11/27/16 Time of Evaluation: 07:16 - Subjective Subjective: PGY-[address] Hendricks Pt requiring benadryl to sleep last night. Asked for pain med x 4 times. dysphagia diet tolerate well but tastes "bland" On ensure DEEJAY output scanty Objective - Vital Signs/Intake and Output Vital Signs (last 24 hours): Temp Pulse Resp BP Pulse Ox 98.5 F 55 L 18 160/95 H 98 11/26/16 18:10 11/26/16 18:10 11/26/16 18:10 11/26/16 22:43 11/26/16 18:10 Intake and Output: 11/27/16 11/27/16 06:59 18:59 Intake Total 360 120 Output Total 140 800 Balance 220 -680 - Medications Medications: Current Medications Acetaminophen (Tylenol 650 Mg Supp) 650 mg RC Q4H PRN PRN Reason: Fever >100.4 F Last Admin: 11/01/16 21:18 Dose: 650 mg Collagenase (Santyl) 1 gm TOP BID [facility] Last Admin: 11/26/16 18:11 Dose: Not Given Al Hydrox/Mg Hydrox/Simethicone 30 ml/Diphenhydramine HCl 75 mg/Lidocaine 30 ml 0 ml PO QID [facility] Last Admin: 11/26/16 22:54 Dose: Not Given Diphenhydramine HCl (Benadryl) 50 mg IVP HS PRN PRN Reason: Insomnia Last Admin: 11/27/16 01:00 Dose: 50 mg Ergocalciferol (Drisdol 50,000 Intl Units Cap) 1 cap PO Q7D [facility] Last Admin: 11/19/16 18:04 Dose: Not Given Fentanyl (Duragesic) 1 patch TD Q72H [facility] Last Admin: 11/22/16 14:30 Dose: 1 patch Ferrous Sulfate (Feosol) 324 mg PO TID [facility] Last Admin: 11/26/16 18:10 Dose: 324 mg Furosemide (Lasix) 20 mg IVP Q12 [facility] Last Admin: 11/26/16 22:43 Dose: 20 mg Home Med (Home Med) 1 unit PO Q12H PRN PRN Reason: Inflammation Last Admin: 10/18/16 11:03 Dose: 1 unit Hydromorphone HCl (Dilaudid) 1 mg IVP Q1H PRN PRN Reason: Pain, severe (8-10) Last Admin: 11/27/16 08:11 Dose: 1 mg Micafungin Sodium 100 mg/ (Sodium Chloride) 100 mls @ 100 mls/hr IV DAILY [facility] PRN Reason: Protocol Stop: 11/28/16 10:01 Last Admin: 11/26/16 10:41 Dose: 100 mls/hr Potassium Chloride 40 meq/ (Dextrose/Sodium Chloride) 1,020 mls @ 100 mls/hr IV .[id number] [facility] Last Admin: 11/27/16 05:16 Dose: 100 mls/hr Magnesium Oxide (Mag-Ox) 400 mg PO BID [facility] Last Admin: 11/26/16 18:10 Dose: 400 mg Multi-Ingredient Ointment (Hydrophor Oint) 0 gm TOP Q6H PRN PRN Reason: Dry lip Multivitamins (Thera Tab) 1 tab PO 0800 [facility] Last Admin: 11/26/16 08:45 Dose: 1 tab Ondansetron HCl (Zofran Inj) 4 mg IVP Q4H PRN PRN Reason: Nausea/Vomiting Last Admin: 11/24/16 00:05 Dose: 4 mg Petrolatum (Desitin Maximum Strength Topical 40% Oint) 1 gm TOP Q4H PRN PRN Reason: Rash Last Admin: 10/23/16 22:39 Dose: 1 applic Potassium Chloride (K-Dur 20 Meq Er Tab) 40 meq PO DAILY [facility] Last Admin: 11/26/16 09:51 Dose: 40 meq Propranolol HCl (Inderal La) 120 mg PO DAILY [facility] Last Admin: 11/26/16 09:56 Dose: 120 mg Sucralfate (Carafate Oral Susp) 1 gm PO BID [facility] Last Admin: 11/26/16 18:09 Dose: 1 gm - Labs Labs: 11/27/16 06:30 11/26/16 05:30 PT 13.3 Seconds (9.9-11.8) H 11/27/16 06:30 INR 1.23 (0.93-1.08) H 11/27/16 06:30 APTT 35.4 Seconds (23.7-30.8) H 11/27/16 06:30 - Constitutional Appears: No Acute Distress, Cachectic, Chronically Ill - Head Exam Head Exam: ATRAUMATIC, NORMAL INSPECTION, NORMOCEPHALIC - Eye Exam Eye Exam: EOMI, Normal appearance, PERRL. absent: Scleral icterus Pupil Exam: NORMAL ACCOMODATION - ENT Exam ENT Exam: Mucous Membranes Moist - Respiratory Exam Respiratory Exam: Clear to Ausculation Bilateral. absent: Rales, Rhonchi, Wheezes - Cardiovascular Exam Cardiovascular Exam: REGULAR RHYTHM, +S1, +S2 - GI/Abdominal Exam GI & Abdominal Exam: Soft, Tenderness, Normal Bowel Sounds. absent: Firm, Rigid Additional comments: DEEJAY scanty, serosanguonus minor intact, clear, no residual L picc intact staple line no erythema, drainage ostomy intact, semi-formed stool - Extremities Exam Extremities Exam: Normal Capillary Refill, Pedal Edema (slight b/l). absent: Calf Tenderness - Neurological Exam Neurological Exam: Alert, Awake, Oriented x3 - Psychiatric Exam Psychiatric exam: Normal Affect, Normal Mood - Skin Skin Exam: Dry, Warm Assessment and Plan - Assessment and Plan (Free Text) Plan: 61 F admitted on 10/09/16 with sepsis post chemotherapy with 2 cycles of FOLFOX based chemotherapy with Avastin. The hospital course was complicated by anemia due to GI bleeding requiring transfusion and fungemia/bactermia with Port removal (11/14/16). L picc was placed on 10/31/16 which was not replaced due to coagulopathy and bleeding. 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 Do not use potassium PO supplement. Pls use IVPB PRN Hb drops from 13 (s/p 4u pRBC) to 11. 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 Hold Durgesic - Per Dr Hendricks, do not add more pain meds now. Maintain at current pain regimen. Upper GI bleed s/p EGD with push enteroscopy - No source of bleeding at examined duodedeum and jejunum - Propranolol 120 - Colonoscopy cancelled today - Consider intraoperative enteroscopy or outpatient capsule endoscopy. 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 end-colostomy Susy esophagitis Pathology: Poorly differentiated colorectal adenocarcinoma metasiasis to bowel wall and serosa and one resection margin. 3/5 lymph nodes positive for metastasis - Microstaellite stable (08/13/16). Has ruled out rollins syndrome Sepsis due to C. albicans Fungemia, probably from port-a-cath Bacteremia with methicillin-resistant coagulase negative staph in repeated cx Gram negative bacilli in urine with minor - minor removed (11/24) Nose culture coagulase neg staphylococcus (11/24) - continue mycamine (day 14 since port removal) - Then switch to PO diflucan for another 2 weeks for total of 4 week antifungal tx - Off daptomycin for bactermeia r/o picc, r/o contamination (/ bottles) - repeated urine cx negative - observe off abx - Hold valganciclovir, no CMV on esophagus ulcer Severe hypokalemia Hypernatermia Severe malnutrition, albumin 2.0 Hypomandnesemia - replete as needed - Ensure 3 can/day - Mag-Ox 400mg BID - KCL piggybag daily - D5/NS with KCl 40 @ 100 Edema - lasix 20q12 Prophylasix - SCD, sucralfate BID s/r/d/w Dr. Hendricks <Kedar Hendricks P - Last Filed: 11/27/16 23:39> Objective - Vital Signs/Intake and Output Vital Signs (last 24 hours): Temp Pulse Resp BP Pulse Ox 98.6 F 126 H 21 128/83 100 11/27/16 16:00 11/27/16 22:01 11/27/16 22:01 11/27/16 22:30 11/27/16 22:01 Intake and Output: 11/27/16 11/28/16 18:59 06:59 Intake Total 120 Output Total 800 Balance -680 - Medications Medications: Current Medications Acetaminophen (Tylenol 650 Mg Supp) 650 mg RC Q4H PRN PRN Reason: Fever >100.4 F Last Admin: 11/01/16 21:18 Dose: 650 mg Amlodipine Besylate (Norvasc) 5 mg PO DAILY [facility] Collagenase (Santyl) 1 gm TOP BID [facility] Last Admin: 11/27/16 17:34 Dose: 1 applic Al Hydrox/Mg Hydrox/Simethicone 30 ml/Diphenhydramine HCl 75 mg/Lidocaine 30 ml 0 ml PO QID [facility] Last Admin: 11/27/16 17:34 Dose: Not Given Diphenhydramine HCl (Benadryl) 50 mg IVP HS PRN PRN Reason: Insomnia Last Admin: 11/27/16 01:00 Dose: 50 mg Ergocalciferol (Drisdol 50,000 Intl Units Cap) 1 cap PO Q7D [facility] Last Admin: 11/19/16 18:04 Dose: Not Given Fentanyl (Duragesic) 1 patch TD Q72H [facility] Last Admin: 11/22/16 14:30 Dose: 1 patch Ferrous Sulfate (Feosol) 324 mg PO TID [facility] Last Admin: 11/27/16 17:33 Dose: 324 mg Fluconazole (Diflucan) 200 mg PO DAILY [facility] PRN Reason: Protocol Stop: 12/12/16 10:01 Furosemide (Lasix) 20 mg IVP Q12 [facility] Last Admin: 11/27/16 22:30 Dose: 20 mg Home Med (Home Med) 1 unit PO Q12H PRN PRN Reason: Inflammation Last Admin: 10/18/16 11:03 Dose: 1 unit Hydralazine HCl (Apresoline) 10 mg IVP Q4H PRN PRN Reason: Systolic Blood Pressure Hydromorphone HCl (Dilaudid) 1 mg IVP Q1H PRN PRN Reason: Pain, severe (8-10) Last Admin: 11/27/16 22:10 Dose: 1 mg Potassium Chloride (Potassium Chloride 20 Meq/100 Ml) 20 meq in 100 mls @ 50 mls/hr IVPB DAILY [facility] Last Admin: 11/27/16 11:22 Dose: 50 mls/hr Potassium Chloride 40 meq/ (Dextrose/Sodium Chloride) 1,020 mls @ 60 mls/hr IV .Q17H [facility] Last Admin: 11/27/16 18:50 Dose: 60 mls/hr Levetiracetam (Keppra 500mg Ivpb) 500 mg in 100 mls @ 400 mls/hr IV Q12 [facility] Valproate Sodium 250 mg/ (Sodium Chloride) 102.5 mls @ 100 mls/hr IVPB Q12 [facility] Last Admin: 11/27/16 23:15 Dose: 100 mls/hr Lisinopril (Zestril) 10 mg PO DAILY [facility] Magnesium Oxide (Mag-Ox) 400 mg PO BID [facility] Last Admin: 11/27/16 17:33 Dose: 400 mg Multi-Ingredient Ointment (Hydrophor Oint) 0 gm TOP Q6H PRN PRN Reason: Dry lip Multivitamins (Thera Tab) 1 tab PO 0800 [facility] Last Admin: 11/27/16 08:34 Dose: 1 tab Ondansetron HCl (Zofran Inj) 4 mg IVP Q4H PRN PRN Reason: Nausea/Vomiting Last Admin: 11/24/16 00:05 Dose: 4 mg Petrolatum (Desitin Maximum Strength Topical 40% Oint) 1 gm TOP Q4H PRN PRN Reason: Rash Last Admin: 10/23/16 22:39 Dose: 1 applic Propranolol HCl (Inderal La) 120 mg PO DAILY [facility] Last Admin: 11/27/16 09:42 Dose: 120 mg Sucralfate (Carafate Oral Susp) 1 gm PO BID [facility] Last Admin: 11/27/16 17:33 Dose: 1 gm - Labs Labs: 11/27/16 19:40 11/27/16 19:40 PT 12.4 Seconds (9.9-11.8) H 11/27/16 19:40 INR 1.15 (0.93-1.08) H 11/27/16 19:40 APTT 30.1 Seconds (23.7-30.8) 11/27/16 19:40 Attending/Attestation - Attestation I have personally seen and examined this patient.: Yes I have fully participated in the care of the patient.: Yes I have reviewed all pertinent clinical information, including history, physical exam and plan: Yes
--- NOTE | 2016-11-27 08:30 | PN ---
The patient is currently in the unit, being transferred to the third floor. The patient's current clinical situation is stabilized since she had the significant bleeding on Saturday. SUBJECTIVE: This is a .61-year-old female, who was admitted about a month ago with catherine sepsis post-chemotherapy, 2 cycles of FOLFOX-based chemotherapy along with Avastin. The patient admitted with catherine sepsis, had a protracted recovery with counts which gradually came up. Since then, the patient has had several complications. She had anemia, requiring transfusions. She also had fungemia and bacteremia, which was treated appropriately with a new PICC line in the left arm. Prior PICC lines were changed, the port in the right chest wall was also removed in view of the infections. 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 The patient also since then had in addition to that, several episodes of melanotic stools. During the hospitalization, she has been scoped a few times and she also had a sigmoidoscopy. Last upper endoscopy done last week prior to her surgery showed the ulcers that were previously documented and thought to be related to CMV and healed. Subsequent to that, the patient had undergone surgery intraoperatively. There was no evidence of any significant carcinomatosis. There was adhesions of the loops of small bowel and there was no evidence of any intra-abdominal seeding including the liver at the time of the operative exam. The patient underwent primary resection of the tumor. She had an end-colostomy with a Marquita's procedure. The patient had a colostomy and has been recovering slowly from the surgery and receiving intermittent narcotics with Dilaudid. The patient still continues to require blood and blood products and as she was bleeding extensively on Saturday, she was stabilized with hypertransfusion and then had a push enteroscopy on Saturday after receiving several units of blood and plasma. Push enteroscopy up to 187 cm revealed no bleeding in the small bowel. For me other option left at that time was whether we should do an intraoperative enteroscopy or wait and see how the patient does and manage it conservatively. The other option was to push for a colonoscopy through the colostomy if the patient continued to deteriorate. In the meantime, the patient has improved since the push enteroscopy. She has not had any further bleeding and overall feels better. She had no fevers overnight. She has left abdominal pain, though she complains of burning sensation in her stomach. PHYSICAL EXAMINATION: Vital signs are stable and as stated on the chart. MEDICATIONS: The patient's medications were reviewed, she is on Tylenol p.r.n., Santyl 1 g topically b.i.d., Benadryl q. 6 hours p.r.n, vitamin D 1 capsule every 7 days, fentanyl patch 1 q. 72 hours. She is on iron supplement. She is on Lasix 20 mg IV q. 12 hours. She is on hydromorphone 1 mg IV q. 4 hours p.r.n. She is on daptomycin every 24 hours, micafungin 100 mg IV daily, and she is on cefepime 1 g IV piggyback q. 12 hours. She is on magnesium oxide 400 b.i.d., Hydrophor ointment topically to the sacral decubitus. She is on Zofran p.r.n. She is on pantoprazole 40 mg IV q. 12 hours. She is on Desitin also to the sacral decubitus and she is on potassium supplements. LABORATORY DATA: Lab data from today reveals the following. CBC shows a white count of 10.1, hemoglobin 13.7, hematocrit 39, platelet count is 104,000. Chemistry revealed sodium of 146, potassium of 2.9, chloride of 110, magnesium is 1.6, AST is 14, ALT is 25, alkaline phosphatase 291, total protein is 4.6 with an albumin of 2. ASSESSMENT AND PLAN: I had a long discussion with the patient again today and the mother is by the bedside. I told her right now we would like to be conservative, continue conservative management, monitor blood work and see in which direction we should move. We will plan to do the colonoscopy for a.m. I spoke to Dr. Null since colostomy today seems to be showing dark stool, but not melanotic. We will wait and watch and take a conservative approach. H and H has been holding so has been the platelet count. The patient's diet has been advanced and she has been tolerating food orally, except that she has no sense of taste in her mouth at this time. I told the patient and the mother that we are going to do a colonoscopy, monitor her blood work and monitor her colostomy output over the next 48 hours, and if necessary, approach it at that point in time for the possible colonoscopy. Otherwise, we will continue aggressive supplementation orally and push for physical therapy if she is stable enough and for probably internal rehab. Routine post exam instructions have been given to the patient. Spoken at length to the patient's mom as well. We will speak to Dr. Null as well. Kedar Hendricks MD
--- NOTE | 2016-11-27 08:30 | PN ---
DATE: 11/26/2016 REASON FOR THE CONSULTATION: Followup tachycardia. BRIEF CLINICAL HISTORY: This is a 61-year-old female with history of colon cancer, status post colostomy, S/p Exp. lap. Postop course was complicated with anemia, hypotension, tachycardia. The patient was moved to ICU. Now, the patient is relatively stable. Denies any chest pain, shortness of breath, or any palpitation. PHYSICAL EXAMINATION: As follows; Vital Signs: Temperature afebrile, heart rate 59, and blood pressure 154/72. HEENT: PERRLA, EOM intact. Neck: Supple. No carotid bruit or thyromegaly. Chest: Clear to auscultation. Heart: S1 and S2, regular. Abdomen: Soft. Extremities: Clubbing and cyanosis negative. LABORATORY DATA: Blood work as follows; WBC 10.1, hemoglobin 13.3, hematocrit 39.8, platelet count 104. Chemistry shows sodium 142, potassium 2.9, chloride 110, carbon dioxide 20, anion gap of 10, BUN 12, creatinine 0.4, magnesium 1.6, total protein 4.6, albumin 2, albumin-globulin ratio 0.8. IMPRESSION: 1. Protein-calorie malnutrition, which was not present on admission not present on admission. 2. Anemia S/p- PRBCs transfusion, post surgery. H and H is stable. 3. Hypertension. 4. Tachycardia, resolved. 5. Protein-calorie malnutrition s/p colostomy colostomy. RECOMMENDATION: Continue beta elena. Monitor electrolytes, severe hypokalemia, severe magnesemia. Supplement electrolytes and monitor H and H. Transferred to telemetry. We will follow with you. Thank you Dr. Hendricks for opportunity in taking care of the patient. MD RODRIGO Jenkins
[2016-11-27] MEDS: Multivitamin Therapeutic Tab PO SCH (08:34)
[2016-11-27 08:43] LABS: ALB/GLOB RATIO 0.8 (1.1-1.8); ALBUMIN 1.9 g/dL (3.0-4.8); ALT/SGPT 28 U/L (7-56); AST/SGOT 11 U/L (15-39); BLOOD UREA NITROGEN 9 mg/dL (7-21); CALCIUM 7.6 mg/dL (8.4-10.5); MAGNESIUM 1.7 mg/dL (1.7-2.2)
[2016-11-27 09:27] LABS: EOS % 0.1 % (1.5-5.0); GRAN # 10.17 (1.4-6.5); GRAN % 90.1 % (50.0-68.0); HEMOGLOBIN 13.6 gm/dL (12.0-16.0); LYMPH # 0.6 (1.2-3.4); LYMPH % 5.1 % (22.0-35.0); MEAN CORPUSCULAR HEMOGLOBIN 32.5 pg (25.0-35.0); MEAN CORPUSCULAR HGB CONC 34.2 g/dl (31.0-37.0); MEAN PLATELET VOLUME 11.3 fl (7.0-11.0); MONO # 0.5 (0.1-0.6); MONO % 4.7 % (1.0-6.0); PLATELET COUNT 120 10^3/uL (120.0-450.0); RBC 4.19 10^6/uL (3.5-6.1); RED CELL DISTRIBUTION WIDTH 18.7 % (11.5-14.5); WHITE BLOOD COUNT 11.3 10^3/ul (4.5-11.0)
[2016-11-27] MEDS: Potassium Chloride 20 mEq ER Tab PO SCH ×2 (09:41→09:58)
[2016-11-27] MEDS: Sucralfate 1 gm/10 ml Oral Susp UD PO SCH ×2 (09:41→17:33)
[2016-11-27] MEDS: Magnesium Oxide 400 mg Tab UD PO SCH ×2 (09:41→17:33)
[2016-11-27] MEDS: Aluminum Hydroxide/Magnesium 30 ML, DiphenhydrAMINE 75 MG, Lidocaine 2% Viscous 30 ML PO SCH ×5 (09:42→22:30)
[2016-11-27] MEDS: Propranolol 60 mg ER Cap PO SCH (09:42)
[2016-11-27] MEDS: Collagenase 250 Units/gm Ointment(30 gm) TOP SCH ×2 (09:42→17:34)
[2016-11-27] MEDS: Micafungin 100 MG in Sodium Chloride 0.9% 100 ML IV SCH (09:49)
[2016-11-27] MEDS: Magnesium Citrate Oral SOL (300 ml) PO ONE ×2 (14:41→18:52)
--- NOTE | 2016-11-27 16:15 | PN ---
DATE: 11/27/2016 SUBJECTIVE: The patient seen earlier this morning, overall in poor condition. PHYSICAL EXAMINATION VITAL SIGNS: Temperature is 98, blood pressure is 170/80, respiratory rate of 18. HEENT: Unremarkable. NECK: Supple. LUNGS: Decreased breath sounds. HEART: Normal S1 and S2. ABDOMEN: Soft. LABORATORY DATA: [place] [address], hemoglobin of 13, platelets of 120. Chemistries revealed a BUN of 9, creatinine of 0.4. Urinalysis is noted. Microbiology is noted. Catheter tip culture is positive for Susy albicans. Review of orders reveal the patient to be on no antibiotics. The patient's Mycamine has been discontinued. ASSESSMENT AND PLAN: A 61-year-old female with sepsis due to Susy albicans fungemia secondary to Port-A-Cath removal and end-stage cancer of the colon stage-IV with cauda-equina syndrome and colectomy, complete with p.o. Diflucan. Overall prognosis is quite poor for this patient, should consider palliative and hospice care with this end-stage patient. Lang Akhtar MD
[2016-11-27] MEDS ORDERED: Bisacodyl 5mg EC Tab PO ONE (17:00)
--- NOTE | 2016-11-27 19:11 | PN ---
DATE: 11/27/2016 REASON FOR CONSULTATION: Followup tachycardia, cardiac evaluation followup. BRIEF CLINICAL HISTORY: This is a 61-year-old female with past medical history significant for colon cancer, status post colostomy, status post exploratory laparotomy, postoperative course was complicated with anemia, hypotension, tachycardia, now the patient moved to ICU and now the patient out of the ICU, lying flat. Denies any chest pain, shortness of breath, any palpitation. PHYSICAL EXAMINATION VITAL SIGNS: Temperature afebrile, heart rate 55, blood pressure 174/88. HEENT: PERRLA. Extraocular muscles intact. NECK: Supple. No carotid bruit or thyromegaly. CARDIOPULMONARY: Heart, S1, S2, regular. LUNGS: Chest clear to auscultation. ABDOMEN: Soft. EXTREMITIES: Clubbing, cyanosis negative. LABORATORY DATA: Blood workup as follows, WBC 11.2, hemoglobin 13.6, hematocrit 39.8, platelet count 120. Chemistry showed sodium 146, potassium 3.7, chloride 111, carbon dioxide 30, anion gap of 9, BUN 9, creatinine 0.4, protein 4.4, albumin 1.9. IMPRESSION: Anemia, status post packed RBC transfusion; hypertension; CA colon, status post exploratory laparotomy; lysis of adhesions; status post colostomy; status post push enterostomy; tachycardia improved; status post packed RBC transfusion, protein-calorie malnutrition, which was not present on admission; hypertension. RECOMMENDATION: Continue propranolol 120 mg daily, add 10 mg of lisinopril and put p.r.n. hydralazine, further recommendation depending on hospital course, we will follow support. Thank you for taking care of the patient. Holding parameter, hold for systolic BP less than 130. We will follow with you. Sherrell Busby MD
--- NOTE | 2016-11-27 19:35 | CP.PCM.PN ---
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 As per nursing the patient c/o blurry vision, stated she did not feel well, and subsequently expressed a blank stare. She then began to shake in her bed and experienced LOC. Patient was seen and examined at bedside with [facility] team. Patient was resting in bed. She is responsive to only painful stimuli. Left sided facial droop was experienced. Vitals: BP 180/80, HR 50, RR 16, Spo2 95%, BG 125 General: NAD Heart: Bradycardic, +S1, +S2 Lungs: CTA bilaterally, no wheezing, no rales, no rhonchi Abdomen: soft, NTTP Neuro: patient is slowly becoming awake, alert, responding to verbal stimuli, but is not answering questions appropriately or following commands, left facial droop noted Extremities: Assessment and Plan: 1. Altered Mental Status, 2/2 seizure vs symptomatic bradycardia vs - patient - noncontrast CT of the head - noncontrast chest abdomen, pelvis CT - CBC, CMP, Mag, Phos - VBG shock panel - lactate - patient will be transferred to telemetry - family at bedside Patient evaluated, seen, and discussed Objective - Vital Signs/Intake and Output Vital Signs (last 24 hours): Temp Pulse Resp BP Pulse Ox 98.6 F 62 18 180/90 H 98 11/27/16 16:00 11/27/16 16:00 11/27/16 16:00 11/27/16 16:00 11/27/16 16:00 Intake and Output: 11/27/16 11/28/16 18:59 06:59 Intake Total 120 Output Total 800 Balance -680 - Medications Medications: Current Medications Acetaminophen (Tylenol 650 Mg Supp) 650 mg RC Q4H PRN PRN Reason: Fever >100.4 F Last Admin: 11/01/16 21:18 Dose: 650 mg Amlodipine Besylate (Norvasc) 5 mg PO DAILY [facility]OD[facility]ÍGUEZ Collagenase (Santyl) 1 gm TOP BID RODRÍGUEZ Last Admin: 11/27/16 17:34 Dose: 1 applic Al Hydrox/Mg Hydrox/Simethicone 30 ml/Diphenhydramine HCl 75 mg/Lidocaine 30 ml 0 ml PO QID [facility] Last Admin: 11/27/16 17:34 Dose: Not Given Diphenhydramine HCl (Benadryl) 50 mg IVP HS PRN PRN Reason: Insomnia Last Admin: 11/27/16 01:00 Dose: 50 mg Ergocalciferol (Drisdol 50,000 Intl Units Cap) 1 cap PO Q7D [facility] Last Admin: 11/19/16 18:04 Dose: Not Given Fentanyl (Duragesic) 1 patch TD Q72H [facility] Last Admin: 11/22/16 14:30 Dose: 1 patch Ferrous Sulfate (Feosol) 324 mg PO TID [facility] Last Admin: 11/27/16 17:33 Dose: 324 mg Fluconazole (Diflucan) 200 mg PO DAILY [facility] PRN Reason: Protocol Stop: 12/12/16 10:01 Furosemide (Lasix) 20 mg IVP Q12 [facility] Last Admin: 11/27/16 09:42 Dose: 20 mg Home Med (Home Med) 1 unit PO Q12H PRN PRN Reason: Inflammation Last Admin: 10/18/16 11:03 Dose: 1 unit Hydralazine HCl (Apresoline) 10 mg PO QID PRN PRN Reason: FOR SBP>170 And Diastolic>100 Hydromorphone HCl (Dilaudid) 1 mg IVP Q1H PRN PRN Reason: Pain, severe (8-10) Last Admin: 11/27/16 17:32 Dose: 1 mg Potassium Chloride (Potassium Chloride 20 Meq/100 Ml) 20 meq in 100 mls @ 50 mls/hr IVPB DAILY [facility] Last Admin: 11/27/16 11:22 Dose: 50 mls/hr Potassium Chloride 40 meq/ (Dextrose/Sodium Chloride) 1,020 mls @ 60 mls/hr IV .Q17H [facility] Last Admin: 11/27/16 18:50 Dose: 60 mls/hr Lisinopril (Zestril) 10 mg PO DAILY [facility] Magnesium Oxide (Mag-Ox) 400 mg PO BID [facility] Last Admin: 11/27/16 17:33 Dose: 400 mg Multi-Ingredient Ointment (Hydrophor Oint) 0 gm TOP Q6H PRN PRN Reason: Dry lip Multivitamins (Thera Tab) 1 tab PO 0800 [facility] Last Admin: 11/27/16 08:34 Dose: 1 tab Ondansetron HCl (Zofran Inj) 4 mg IVP Q4H PRN PRN Reason: Nausea/Vomiting Last Admin: 11/24/16 00:05 Dose: 4 mg Petrolatum (Desitin Maximum Strength Topical 40% Oint) 1 gm TOP Q4H PRN PRN Reason: Rash Last Admin: 10/23/16 22:39 Dose: 1 applic Propranolol HCl (Inderal La) 120 mg PO DAILY [facility] Last Admin: 11/27/16 09:42 Dose: 120 mg Sucralfate (Carafate Oral Susp) 1 gm PO BID [facility] Last Admin: 11/27/16 17:33 Dose: 1 gm - Labs Labs: 11/27/16 08:00 11/27/16 08:15 PT 13.3 Seconds (9.9-11.8) H 11/27/16 06:30 INR 1.23 (0.93-1.08) H 11/27/16 06:30 APTT 35.4 Seconds (23.7-30.8) H 11/27/16 06:30 <León Byrne P - Last Filed: 11/29/16 06:58> Objective - Vital Signs/Intake and Output Vital Signs (last 24 hours): Temp Pulse Resp BP Pulse Ox 97.7 F 71 17 137/77 97 11/29/16 04:00 11/29/16 06:00 11/29/16 06:00 11/29/16 06:00 11/29/16 06:00 Intake and Output: 11/28/16 11/29/16 18:59 06:59 Intake Total 720 820 Output Total 800 1050 Balance -80 -230 - Medications Medications: Current Medications Acetaminophen (Tylenol 650 Mg Supp) 650 mg RC Q4H PRN PRN Reason: Fever >100.4 F Last Admin: 11/01/16 21:18 Dose: 650 mg Amlodipine Besylate (Norvasc) 5 mg PO DAILY [facility] Last Admin: 11/28/16 11:58 Dose: Not Given Collagenase (Santyl) 1 gm TOP BID [facility] Last Admin: 11/28/16 17:59 Dose: 1 applic Al Hydrox/Mg Hydrox/Simethicone 30 ml/Diphenhydramine HCl 75 mg/Lidocaine 30 ml 0 ml PO QID [facility] Last Admin: 11/28/16 21:29 Dose: Not Given Diphenhydramine HCl (Benadryl) 50 mg IVP HS PRN PRN Reason: Insomnia Last Admin: 11/27/16 01:00 Dose: 50 mg Ergocalciferol (Drisdol 50,000 Intl Units Cap) 1 cap PO Q7D [facility] Last Admin: 11/19/16 18:04 Dose: Not Given Fentanyl (Duragesic) 1 patch TD Q72H [facility] Last Admin: 11/22/16 14:30 Dose: 1 patch Ferrous Sulfate (Feosol) 324 mg PO TID [facility] Last Admin: 11/28/16 17:59 Dose: Not Given Fluconazole (Diflucan) 200 mg PO DAILY [facility] PRN Reason: Protocol Stop: 12/12/16 10:01 Last Admin: 11/28/16 11:55 Dose: Not Given Furosemide (Lasix) 20 mg IVP Q12 [facility] Last Admin: 11/28/16 21:27 Dose: 20 mg Home Med (Home Med) 1 unit PO Q12H PRN PRN Reason: Inflammation Last Admin: 10/18/16 11:03 Dose: 1 unit Hydralazine HCl (Apresoline) 10 mg IVP Q4H PRN PRN Reason: Systolic Blood Pressure Hydromorphone HCl (Dilaudid) 1 mg IVP Q1H PRN PRN Reason: Pain, severe (8-10) Last Admin: 11/29/16 04:56 Dose: 1 mg Potassium Chloride (Potassium Chloride 20 Meq/100 Ml) 20 meq in 100 mls @ 50 mls/hr IVPB DAILY [facility] Last Admin: 11/28/16 11:59 Dose: 50 mls/hr Potassium Chloride 40 meq/ (Dextrose/Sodium Chloride) 1,020 mls @ 60 mls/hr IV .Q17H [facility] Last Admin: 11/28/16 16:25 Dose: 60 mls/hr Levetiracetam (Keppra 500mg Ivpb) 500 mg in 100 mls @ 400 mls/hr IV Q12 [facility] Last Admin: 11/28/16 21:27 Dose: 400 mls/hr Lisinopril (Zestril) 10 mg PO DAILY [facility] Last Admin: 11/28/16 12:00 Dose: Not Given Magnesium Oxide (Mag-Ox) 400 mg PO BID [facility] Last Admin: 11/28/16 17:59 Dose: Not Given Multi-Ingredient Ointment (Hydrophor Oint) 0 gm TOP Q6H PRN PRN Reason: Dry lip Multivitamins (Thera Tab) 1 tab PO 0800 [facility] Last Admin: 11/28/16 12:00 Dose: Not Given Ondansetron HCl (Zofran Inj) 4 mg IVP Q4H PRN PRN Reason: Nausea/Vomiting Last Admin: 11/24/16 00:05 Dose: 4 mg Petrolatum (Desitin Maximum Strength Topical 40% Oint) 1 gm TOP Q4H PRN PRN Reason: Rash Last Admin: 10/23/16 22:39 Dose: 1 applic Propranolol HCl (Inderal La) 120 mg PO DAILY [facility] Last Admin: 11/28/16 11:56 Dose: Not Given Sucralfate (Carafate Oral Susp) 1 gm PO BID [facility] Last Admin: 11/28/16 17:58 Dose: Not Given - Labs Labs: 11/28/16 08:01 11/28/16 08:01 PT 12.1 Seconds (9.9-11.8) H 11/28/16 08:01 INR 1.12 (0.93-1.08) H 11/28/16 08:01 APTT 28.5 Seconds (23.7-30.8) 11/28/16 08:01 Attending/Attestation - Attestation I have personally seen and examined this patient.: Yes I have fully participated in the care of the patient.: Yes I have reviewed all pertinent clinical information, including history, physical exam and plan: Yes Notes (Text): At time of arrival to the [facility] patient was lethargic and bradycardia was noticed on the [employer]QU[employer] monitor, patient slowly became responsive and appeared exhausted, anxious, but started to respond appropriately without new neuro deficit, and vs remained stable. As per the nursing description patient has shaken prior to [facility]KER team arrival then became unresponsive. Priliminary diagnosis of seizure, locksmith bleed thought in DD, medical record, meds reviewed and also discussed with Dr Jones. Just about patient was about to go for CT brain she started to shake her head, right arm, was still responsive, not able to talk but was able to follow with her eyes, soon after this she became completely unresponsive and had tonic phase , at this time again bradycardia in 40's was noticed similar to the time of arrival giving the impression of the whole event. Clinically this started as partial simple seizure and then got converted into generalized tonic seizure. Findings discussed with Dr Mccullough, CT brain reviewed by me few hypodensities b/ l noticed in the cerebrum close to beyer white junction with strong clinical diagnosis of METAL FITTER mets, initial dd provided by radiologist was suspected infarcts , which was rather less likely with this presentation and history. Patient is not a candidate for anticoagulation at the time due to recent active gi bleed. Patient was transferred to ICU for further monitoring and care.
[2016-11-27 19:51] LABS: VENOUS BLOOD GAS BASE EXCESS 4.4 mmol/L (0.0-2.0); VENOUS BLOOD GAS PO2 98 mm/Hg (30-55); VENOUS BLOOD PH 7.44 (7.32-7.43)
[2016-11-27 19:54] LABS: ARTERIAL BLOOD GAS HCO3 24.1 mmol/L (21-28); ARTERIAL BLOOD GAS HEMOGLOBIN 14.1 g/dL (11.7-17.4); ARTERIAL BLOOD GAS O2 CAPACITY 19.4 mL/dl (16-24); ARTERIAL BLOOD GAS O2 CONTENT 19.2 ML/dl (15-23); ARTERIAL BLOOD GAS O2 SAT 98.8 % (95-98); ARTERIAL BLOOD GAS PCO2 38 mm/Hg (35-45); ARTERIAL BLOOD GAS PH 7.41 (7.35-7.45); ARTERIAL BLOOD GAS TCO2 25.3 mmol.L (22-28)
[2016-11-27 20:01] LABS: ALB/GLOB RATIO 0.8 (1.1-1.8); ALBUMIN 2.1 g/dL (3.0-4.8); ALT/SGPT 24 U/L (7-56); AST/SGOT 15 U/L (15-39); BLOOD UREA NITROGEN 9 mg/dL (7-21); CALCIUM 7.9 mg/dL (8.4-10.5); GFR AFRICAN-AMERICAN > 60; GFR NON-AFRICAN AMERICAN > 60; MAGNESIUM 1.8 mg/dL (1.7-2.2)
[2016-11-27 20:03] LABS: INR 1.15 (0.93-1.08); PARTIAL THROMBOPLASTIN TIME 30.1 Seconds (23.7-30.8); PROTHROMBIN TIME 12.4 Seconds (9.9-11.8)
[2016-11-27] MEDS ORDERED: levETIRAcetam 1,000 MG in Sodium Chloride 0.9% 100 ML IV ONE (20:52)
[2016-11-27 21:28] LABS: EOS % 0.2 % (1.5-5.0); GRAN % 87.5 % (50.0-68.0); HEMOGLOBIN 15.1 gm/dL (12.0-16.0); LYMPH # 0.8 (1.2-3.4); LYMPH % 7.2 % (22.0-35.0); MEAN CELL VOLUME 94.2 fL (80.0-105.0); MEAN CORPUSCULAR HEMOGLOBIN 31.3 pg (25.0-35.0); MEAN CORPUSCULAR HGB CONC 33.3 g/dl (31.0-37.0); MEAN PLATELET VOLUME 11.8 fl (7.0-11.0); MONO # 0.6 (0.1-0.6); MONO % 5.1 % (1.0-6.0); PLATELET COUNT 119 10^3/uL (120.0-450.0); RBC 4.82 10^6/uL (3.5-6.1); RED CELL DISTRIBUTION WIDTH 17.9 % (11.5-14.5); WHITE BLOOD COUNT 11.5 10^3/ul (4.5-11.0)
[2016-11-27] MEDS ORDERED: levETIRAcetam 500 MG in Sodium Chloride 0.9% 100 ML IV SCH (22:00)
--- NOTE | 2016-11-27 22:07 | PN ---
DATE: 11/27/2016 Seen and examined at the bedside earlier today. Her sister was also there. The patient is awake, but slightly drowsy. She just had pain medication but is easily arousable. Occasionally gets abdominal cramping. She is able to tolerate some of the pureed diet, but is still unable to taste. She has hard taste buds. Colostomy is draining dark stool. No bright red blood though. Denies any shortness of breath, chest pain. No fever or chills. VITAL SIGNS: Temperature 98.1, blood pressure 174/88, pulse 55, respirations 20, 98% on room air. LABORATORY DATA: WBC is 11.3. Earlier today, I did see labs at 6:30 a.m. Those were canceled and it was redone again at 8 AM. The WBC is 11.3, H and H is 13.6 and 39.8, platelets are 120. PT is 13.3. INR is 1.23, PTT 35.4. Sodium 146, potassium 3.7, BUN is 9, creatinine is 0.4, magnesium is 1.7, total bilirubin 0.9, AST 11, ALT 28, alkaline phosphatase is 322. PHYSICAL EXAMINATION: HEENT: Sclerae are anicteric. NECK: Supple. CARDIOPULMONARY: S1 and S2. LUNGS: With decreased breath sounds, but good air entry. No rales or wheeze. ABDOMEN: With bowel sounds, soft, positive colostomy with liquid dark stool. No bright red blood. Her midabdominal incision with sofie that is open to air is dry and intact. EXTREMITIES: Lower extremities with bilateral heel boots and antiembolic stockings. NEUROLOGIC: She is awake, a little bit drowsy, status post pain medication. ASSESSMENT: A 61-year-old female with stage IV colon cancer, metastasis to the bone, status post exploratory laparotomy with lysis of adhesions and repair of small bowel enterotomy and partial sigmoidectomy with end colostomy. With gastrointestinal bleed, she had a push enteroscopy and no bleeding found in the small bowel as well as anemia with multiple blood transfusions, thrombocytopenia, which is now improved, history of fungemia. PLAN: We had a detailed discussion with the patient and her sister at the bedside regarding colonoscopy evaluation tomorrow. We changed her diet for lunch to clear liquid and she will be given bowel prep for this afternoon. We will watch her electrolytes and her hemoglobin, n.p.o. after midnight. Continue pain management. She is also on iron supplements, on oral Diflucan and IV fluids with potassium. Continue Carafate. The patient was seen and case discussed with Dr. Null. RASHEED Wong
--- NOTE | 2016-11-27 23:12 | CP.PCM.CON ---
<ERIC CAM - Last Filed: 11/28/16 02:18> History of Present Illness - History of Present Illness History of Present Illness: Pt is a 61 yo F with a PMHx of Kras mutated metastatic colon cancer and cauda equina syndrome initially presented to the ED with a complaint of watery diarrhea for 2 days and was admitted for neutropenic sepsis post chemotherapy with 2 cycles of Avastin. ID was consulted for her acute enteritis, positive urine cultures, and new onset mucositis. Abx recommendations were appreciated and indwelling minor catheter was removed. The pt was found to have an unstageable sacral ulcer and lower GI bleed, thus surgery was consulted for evaluation and treatment. GI was consulted for upper and lower endoscopy. EGD findings were suggestive of CMV. Sigmoidscopy findings showed strictures and ulcerated sigmoid mass. The pt required a significant amount of transfusions of PRBC, FFP, and platelets due to continued lower GI bleed. Since the bleed was failing to resolve, the decision was made to undergo exploratory laparotomy, in which the pt required extensive lysis of adhesions, repair of small bowel enterotomy, and partial sigmoidectomy with end colostomy. ID continued to follow and treat as the pt developed fungemia likely from her port-a-cath. The port-a-cath was removed and replaced with a picc line. An EGD with push enteroscopy was performed as the patient's hemoglobin was still fluctuating. No source of upper GI bleed could be found at this time. During the hospital course , palliative care has been following to discuss recommendations and options with the patient and family. Today, PAINTER TOUCH UP was called for evaluation of altered mental status. As per nursing, pt complained of dizziness, blurred vision, and feeling ill. At this point the nurse stated the pt expressed a blank stare and began shake in bed with LOC. Subsequently, pt had another seizure witnessed by the PAINTER TOUCH UP. Pt taken to CT, which showed multiple hypodense areas in her brain, which is of concern due to possible metastasis vs CVA. PMHx: KRAS mutated metastatic cancer, cauda equina, HTN, basal cell carcinoma, IBS Surg: colectomy, max's procedure FHx: No known FHx SH: No tobacco, EtOH, or illicit durg use All: IV contrast, CAF Medications: Acetaminophen 650 mg Q4H prn GI cocktail QID artur Norvasc 5 mg PO daily Santyl 1 gm top BID Benadryl 50 mg HS prn Drisdol PO Q7D Ferrous sulfate 324 TID Diflucan 200 mg daily Lasix 20 mg Q12H hydralazine 10 mg Q4H Dilaudid 1 mg Q1H prn Keppra 500 mg drip Lisinopril 10 mg daily Mag-ox 400 mg BID Multivitamin Zofran 4 mg Q4H prn Petrolatum 1 gm top Q4H prn KCl 20 meq IVPB daily KCl 40 meq in D5NS Q17H Propranolol 120 mg daily Sucralfate 1 gm BID Valproic Acid 250 mg drip Review of Systems - Review of Systems All systems: reviewed and no additional remarkable complaints except (Unable to obtain 12 point ROS as the pt is unresponsive to questioning) 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) - MUSCULOSKELETAL/RHEUMATOLOGICAL Hx Musculoskeletal Disorders: Yes Hx Back Pain: Yes Hx Falls: No - GASTROINTESTINAL Hx Gastroesophageal Reflux: Yes - GENITOURINARY/GYNECOLOGICAL Hx Genitourinary Disorders: Yes Hx Urinary Tract Infection: Yes - PSYCHIATRIC Hx Psychophysiologic Disorder: Yes Hx Anxiety: Yes Hx Substance Use: No - SURGICAL HISTORY Hx Surgeries: Yes - ANESTHESIA Hx Anesthesia Reactions: No Hx Malignant Hyperthermia: No Meds Allergies/Adverse Reactions: Allergies Allergy/AdvReac Type Severity Reaction Status Date / Time IV CONTRAST Allergy Severe SHORTNESS Uncoded 10/06/16 18:13 OF BREATH CAF Allergy Intermediate PALPITATION Uncoded 10/06/16 18:13 S - Medications Medications: Current Medications Acetaminophen (Tylenol 650 Mg Supp) 650 mg RC Q4H PRN PRN Reason: Fever >100.4 F Last Admin: 11/01/16 21:18 Dose: 650 mg Amlodipine Besylate (Norvasc) 5 mg PO DAILY [facility] Collagenase (Santyl) 1 gm TOP BID [facility] Last Admin: 11/27/16 17:34 Dose: 1 applic Al Hydrox/Mg Hydrox/Simethicone 30 ml/Diphenhydramine HCl 75 mg/Lidocaine 30 ml 0 ml PO QID [facility] Last Admin: 11/27/16 17:34 Dose: Not Given Diphenhydramine HCl (Benadryl) 50 mg IVP HS PRN PRN Reason: Insomnia Last Admin: 11/27/16 01:00 Dose: 50 mg Ergocalciferol (Drisdol 50,000 Intl Units Cap) 1 cap PO Q7D [facility] Last Admin: 11/19/16 18:04 Dose: Not Given Fentanyl (Duragesic) 1 patch TD Q72H [facility] Last Admin: 11/22/16 14:30 Dose: 1 patch Ferrous Sulfate (Feosol) 324 mg PO TID [facility] Last Admin: 11/27/16 17:33 Dose: 324 mg Fluconazole (Diflucan) 200 mg PO DAILY [facility] PRN Reason: Protocol Stop: 12/12/16 10:01 Furosemide (Lasix) 20 mg IVP Q12 [facility] Last Admin: 11/27/16 09:42 Dose: 20 mg Home Med (Home Med) 1 unit PO Q12H PRN PRN Reason: Inflammation Last Admin: 10/18/16 11:03 Dose: 1 unit Hydromorphone HCl (Dilaudid) 1 mg IVP Q1H PRN PRN Reason: Pain, severe (8-10) Last Admin: 11/27/16 22:10 Dose: 1 mg Potassium Chloride (Potassium Chloride 20 Meq/100 Ml) 20 meq in 100 mls @ 50 mls/hr IVPB DAILY [facility] Last Admin: 11/27/16 11:22 Dose: 50 mls/hr Potassium Chloride 40 meq/ (Dextrose/Sodium Chloride) 1,020 mls @ 60 mls/hr IV .Q17H [facility] Last Admin: 11/27/16 18:50 Dose: 60 mls/hr Levetiracetam (Keppra 500mg Ivpb) 500 mg in 100 mls @ 400 mls/hr IV Q12 [facility] Valproate Sodium 250 mg/ (Sodium Chloride) 102.5 mls @ 100 mls/hr IVPB Q12 [facility] Lisinopril (Zestril) 10 mg PO DAILY [facility] Magnesium Oxide (Mag-Ox) 400 mg PO BID [facility] Last Admin: 11/27/16 17:33 Dose: 400 mg Multi-Ingredient Ointment (Hydrophor Oint) 0 gm TOP Q6H PRN PRN Reason: Dry lip Multivitamins (Thera Tab) 1 tab PO 0800 [facility] Last Admin: 11/27/16 08:34 Dose: 1 tab Ondansetron HCl (Zofran Inj) 4 mg IVP Q4H PRN PRN Reason: Nausea/Vomiting Last Admin: 11/24/16 00:05 Dose: 4 mg Petrolatum (Desitin Maximum Strength Topical 40% Oint) 1 gm TOP Q4H PRN PRN Reason: Rash Last Admin: 10/23/16 22:39 Dose: 1 applic Propranolol HCl (Inderal La) 120 mg PO DAILY [facility] Last Admin: 11/27/16 09:42 Dose: 120 mg Sucralfate (Carafate Oral Susp) 1 gm PO BID [facility] Last Admin: 11/27/16 17:33 Dose: 1 gm Physical Exam - Head Exam Head Exam: ATRAUMATIC, NORMOCEPHALIC - Eye Exam Eye Exam: absent: Conjunctival injection, Scleral icterus Pupil Exam: Mydriatic. absent: Fixed, Miosis, Unequal - ENT Exam ENT Exam: Mucous Membranes Moist - Neck Exam Neck exam: Positive for: Full Rom - Respiratory Exam Respiratory Exam: Clear to Auscultation Bilateral. absent: Rales, Rhonchi, Wheezes - Cardiovascular Exam Cardiovascular Exam: RRR, +S1, +S2. absent: Diastolic murmur, Gallop, Rubs, Systolic Murmur - GI/Abdominal Exam GI & Abdominal Exam: absent: Distended, Guarding, Rebound, Tenderness Additional comments: Ostomy intact with soft stool, incision sites clean dry and intact with no erythema - Extremities Exam Extremities exam: Positive for: full ROM. Negative for: joint swelling, pedal edema, tenderness - Neurological Exam Additional comments: Pt is awake and alert, but disoriented. Pt is making incomprehensible noises. Pt currently moving both UE's and LE's spontaneously. Results - Vital Signs Recent Vital Signs: Last Vital Signs Temp 98.6 F 11/27/16 16:00 Pulse 90 11/27/16 21:13 Resp 18 11/27/16 16:00 BP 185/112 H 11/27/16 21:13 Pulse Ox 98 07/18/17 16:00 - Labs Result Diagrams: 11/27/16 19:40 11/27/16 19:40 Labs: Laboratory Results - last 24 hr 11/23/16 11/27/16 11/27/16 11:15 06:30 06:30 WBC Cancelled RBC Cancelled Hgb Cancelled Hct Cancelled MCV Cancelled MCH Cancelled MCHC Cancelled RDW Cancelled Plt Count Cancelled MPV Cancelled Gran % Cancelled Lymph % (Auto) Cancelled Brooke % (Auto) Cancelled Eos % (Auto) Cancelled Baso % (Auto) Cancelled Gran # Cancelled Lymph # Cancelled Brooke # Cancelled Eos # Cancelled Baso # Cancelled PT 13.3 H INR 1.23 H APTT 35.4 H pCO2 pO2 HCO3 ABG pH ABG Total CO2 ABG O2 Saturation ABG O2 Content ABG Base Excess ABG Hemoglobin ABG Carboxyhemoglobin POC ABG HHb (Measured) ABG Methemoglobin ABG O2 Capacity VBG pH VBG pCO2 VBG HCO3 VBG Total CO2 VBG O2 Sat (Calc) VBG Base Excess VBG Potassium Hgb O2 Saturation Glucose Lactate FiO2 Sodium Potassium Chloride Carbon Dioxide Anion Gap BUN Creatinine Est GFR ( Amer) Est GFR (Non-Af Amer) POC Glucose (mg/dL) Random Glucose Calcium Phosphorus Magnesium Total Bilirubin AST ALT Alkaline Phosphatase Total Protein Albumin Globulin Albumin/Globulin Ratio Venous Blood Potassium Crossmatch See Detail 11/27/16 11/27/16 11/27/16 08:00 08:15 19:20 WBC 11.3 H RBC 4.19 Hgb 13.6 Hct 39.8 MCV 95.0 MCH 32.5 MCHC 34.2 RDW 18.7 H Plt Count 120 MPV 11.3 H Gran % 90.1 H Lymph % (Auto) 5.1 L Brooke % (Auto) 4.7 Eos % (Auto) 0.1 L Baso % (Auto) 0.0 Gran # 10.17 H Lymph # 0.6 L Brooke # 0.5 Eos # 0.0 Baso # 0.00 PT INR APTT pCO2 pO2 HCO3 ABG pH ABG Total CO2 ABG O2 Saturation ABG O2 Content ABG Base Excess ABG Hemoglobin ABG Carboxyhemoglobin POC ABG HHb (Measured) ABG Methemoglobin ABG O2 Capacity VBG pH VBG pCO2 VBG HCO3 VBG Total CO2 VBG O2 Sat (Calc) VBG Base Excess VBG Potassium Hgb O2 Saturation Glucose Lactate FiO2 Sodium 146 Potassium 3.7 Chloride 111 H Carbon Dioxide 30 Anion Gap 9 L BUN 9 Creatinine 0.4 L Est GFR ( Amer) > 60 Est GFR (Non-Af Amer) > 60 POC Glucose (mg/dL) 125 H Random Glucose 101 Calcium 7.6 L Phosphorus Magnesium 1.7 Total Bilirubin 0.9 AST 11 L ALT 28 Alkaline Phosphatase 322 H Total Protein 4.4 L Albumin 1.9 L Globulin 2.4 Albumin/Globulin Ratio 0.8 L Venous Blood Potassium Crossmatch 11/27/16 11/27/16 11/27/16 19:30 19:40 19:40 WBC 11.5 H RBC 4.82 Hgb 15.1 Hct 45.4 MCV 94.2 MCH 31.3 MCHC 33.3 RDW 17.9 H Plt Count 119 L MPV 11.8 H Gran % 87.5 H Lymph % (Auto) 7.2 L Brooke % (Auto) 5.1 Eos % (Auto) 0.2 L Baso % (Auto) 0.0 Gran # 10.10 H Lymph # 0.8 L Brooke # 0.6 Eos # 0.0 Baso # 0.00 PT 12.4 H INR 1.15 H APTT 30.1 pCO2 38 pO2 105.0 H HCO3 24.1 ABG pH 7.41 ABG Total CO2 25.3 ABG O2 Saturation 98.8 H ABG O2 Content 19.2 ABG Base Excess -0.3 ABG Hemoglobin 14.1 ABG Carboxyhemoglobin 1.6 H POC ABG HHb (Measured) 1.2 ABG Methemoglobin 0.9 ABG O2 Capacity 19.4 VBG pH VBG pCO2 VBG HCO3 VBG Total CO2 VBG O2 Sat (Calc) VBG Base Excess VBG Potassium Hgb O2 Saturation 96.2 Glucose Lactate FiO2 28.0 Sodium Potassium Chloride Carbon Dioxide Anion Gap BUN Creatinine Est GFR ( Amer) Est GFR (Non-Af Amer) POC Glucose (mg/dL) Random Glucose Calcium Phosphorus Magnesium Total Bilirubin AST ALT Alkaline Phosphatase Total Protein Albumin Globulin Albumin/Globulin Ratio Venous Blood Potassium Crossmatch 11/27/16 11/27/16 19:40 19:40 WBC RBC Hgb Hct MCV MCH MCHC RDW Plt Count MPV Gran % Lymph % (Auto) Brooke % (Auto) Eos % (Auto) Baso % (Auto) Gran # Lymph # Brooke # Eos # Baso # PT INR APTT pCO2 pO2 98 H HCO3 ABG pH ABG Total CO2 ABG O2 Saturation ABG O2 Content ABG Base Excess ABG Hemoglobin ABG Carboxyhemoglobin POC ABG HHb (Measured) ABG Methemoglobin ABG O2 Capacity VBG pH 7.44 H VBG pCO2 43.0 VBG HCO3 29.2 H VBG Total CO2 30.5 H VBG O2 Sat (Calc) 98.6 H VBG Base Excess 4.4 H VBG Potassium 3.8 Hgb O2 Saturation Glucose 118 H Lactate 2.7 H FiO2 21.0 Sodium 146.0 145 Potassium 3.7 Chloride 112.0 H 111 H Carbon Dioxide 28 Anion Gap 10 BUN 9 Creatinine 0.3 L Est GFR ( Amer) > 60 Est GFR (Non-Af Amer) > 60 POC Glucose (mg/dL) Random Glucose 111 H Calcium 7.9 L Phosphorus 3.2 Magnesium 1.8 Total Bilirubin 1.0 AST 15 ALT 24 Alkaline Phosphatase 402 H Total Protein 4.7 L Albumin 2.1 L Globulin 2.6 Albumin/Globulin Ratio 0.8 L Venous Blood Potassium 3.8 Crossmatch Assessment & Plan - Assessment and Plan (Free Text) Assessment: 61 yo F with PMHx of metastatic colon cancer and cauda equina syndrome who was recently treated for neutropenic sepsis, fungemia, bacteremia, and lower GI bleed with Max's procedure will be admitted to the ICU for evaluation and treatment of new onset seizures and new findings in brain on CT scan. Neuro -Pt awake and alert but disoriented -Neuro check Q1H x4hrs, Q4H x4hrs, then Q4H -Neuro consulted 2/2 partial seizure and tonic clonic seizure -Ativan was used to break seizure -Keppra 500 mg IVPB Q12H -Valproic acid 250 mg IVPB Q12H -CT scan showed multiple hypodense lesions in the brain suspicious for metastatic disease vs CVA -Cont current pain regimen as per oncology -Consider EEG Cardio -Maintain MAP >65 -Hemodynamically stable Pulm -Maintain O2 sat >90% GI -PPx GI Cocktail -H/o radiation enteritis s/p max's procedure Nephro -Maintain euvolemia -Replenish electrolyes as needed Endo -Maintain euglycemia Heme/ID -Monitor H/H -Transfuse PRBC prn -Stage 4 colon cancer s/p Avastin -ID following cont mycamine and daptomycin -Maintain normothermia Pt was seen and discussed in detail with Dr. Smith <Arthur Smith Q - Last Filed: 11/28/16 02:25> Meds - Medications Medications: Current Medications Acetaminophen (Tylenol 650 Mg Supp) 650 mg RC Q4H PRN PRN Reason: Fever >100.4 F Last Admin: 11/01/16 21:18 Dose: 650 mg Amlodipine Besylate (Norvasc) 5 mg PO DAILY [facility] Collagenase (Santyl) 1 gm TOP BID [facility] Last Admin: 11/27/16 17:34 Dose: 1 applic Al Hydrox/Mg Hydrox/Simethicone 30 ml/Diphenhydramine HCl 75 mg/Lidocaine 30 ml 0 ml PO QID [facility] Last Admin: 11/27/16 22:30 Dose: Not Given Diphenhydramine HCl (Benadryl) 50 mg IVP HS PRN PRN Reason: Insomnia Last Admin: 11/27/16 01:00 Dose: 50 mg Ergocalciferol (Drisdol 50,000 Intl Units Cap) 1 cap PO Q7D [facility] Last Admin: 11/19/16 18:04 Dose: Not Given Fentanyl (Duragesic) 1 patch TD Q72H [facility] Last Admin: 11/22/16 14:30 Dose: 1 patch Ferrous Sulfate (Feosol) 324 mg PO TID [facility] Last Admin: 11/27/16 17:33 Dose: 324 mg Fluconazole (Diflucan) 200 mg PO DAILY [facility] PRN Reason: Protocol Stop: 12/12/16 10:01 Furosemide (Lasix) 20 mg IVP Q12 [facility] Last Admin: 11/27/16 22:30 Dose: 20 mg Home Med (Home Med) 1 unit PO Q12H PRN PRN Reason: Inflammation Last Admin: 10/18/16 11:03 Dose: 1 unit Hydralazine HCl (Apresoline) 10 mg IVP Q4H PRN PRN Reason: Systolic Blood Pressure Hydromorphone HCl (Dilaudid) 1 mg IVP Q1H PRN PRN Reason: Pain, severe (8-10) Last Admin: 11/27/16 23:52 Dose: 1 mg Potassium Chloride (Potassium Chloride 20 Meq/100 Ml) 20 meq in 100 mls @ 50 mls/hr IVPB DAILY [facility] Last Admin: 11/27/16 11:22 Dose: 50 mls/hr Potassium Chloride 40 meq/ (Dextrose/Sodium Chloride) 1,020 mls @ 60 mls/hr IV .Q17H [facility] Last Admin: 11/27/16 18:50 Dose: 60 mls/hr Levetiracetam (Keppra 500mg Ivpb) 500 mg in 100 mls @ 400 mls/hr IV Q12 [facility] Valproate Sodium 250 mg/ (Sodium Chloride) 102.5 mls @ 100 mls/hr IVPB Q12 [facility] Last Admin: 11/27/16 23:15 Dose: 100 mls/hr Lisinopril (Zestril) 10 mg PO DAILY [facility] Magnesium Oxide (Mag-Ox) 400 mg PO BID [facility] Last Admin: 11/27/16 17:33 Dose: 400 mg Multi-Ingredient Ointment (Hydrophor Oint) 0 gm TOP Q6H PRN PRN Reason: Dry lip Multivitamins (Thera Tab) 1 tab PO 0800 [facility] Last Admin: 11/27/16 08:34 Dose: 1 tab Ondansetron HCl (Zofran Inj) 4 mg IVP Q4H PRN PRN Reason: Nausea/Vomiting Last Admin: 11/24/16 00:05 Dose: 4 mg Petrolatum (Desitin Maximum Strength Topical 40% Oint) 1 gm TOP Q4H PRN PRN Reason: Rash Last Admin: 10/23/16 22:39 Dose: 1 applic Propranolol HCl (Inderal La) 120 mg PO DAILY [facility] Last Admin: 11/27/16 09:42 Dose: 120 mg Sucralfate (Carafate Oral Susp) 1 gm PO BID [facility] Last Admin: 11/27/16 17:33 Dose: 1 gm Results - Vital Signs Recent Vital Signs: Last Vital Signs Temp 97.6 F 11/28/16 00:00 Pulse 103 H 11/28/16 00:00 Resp 19 11/28/16 00:00 BP 132/90 11/28/16 00:00 Pulse Ox 100 11/28/16 00:00 - Labs Result Diagrams: 11/27/16 19:40 11/27/16 19:40 Labs: Laboratory Results - last 24 hr 11/23/16 11/27/16 11/27/16 11:15 06:30 06:30 WBC Cancelled RBC Cancelled Hgb Cancelled Hct Cancelled MCV Cancelled MCH Cancelled MCHC Cancelled RDW Cancelled Plt Count Cancelled MPV Cancelled Gran % Cancelled Lymph % (Auto) Cancelled Brooke % (Auto) Cancelled Eos % (Auto) Cancelled Baso % (Auto) Cancelled Gran # Cancelled Lymph # Cancelled Brooke # Cancelled Eos # Cancelled Baso # Cancelled PT 13.3 H INR 1.23 H APTT 35.4 H pCO2 pO2 HCO3 ABG pH ABG Total CO2 ABG O2 Saturation ABG O2 Content ABG Base Excess ABG Hemoglobin ABG Carboxyhemoglobin POC ABG HHb (Measured) ABG Methemoglobin ABG O2 Capacity VBG pH VBG pCO2 VBG HCO3 VBG Total CO2 VBG O2 Sat (Calc) VBG Base Excess VBG Potassium Hgb O2 Saturation Glucose Lactate FiO2 Sodium Potassium Chloride Carbon Dioxide Anion Gap BUN Creatinine Est GFR ( Amer) Est GFR (Non-Af Amer) POC Glucose (mg/dL) Random Glucose Calcium Phosphorus Magnesium Total Bilirubin AST ALT Alkaline Phosphatase Total Protein Albumin Globulin Albumin/Globulin Ratio Venous Blood Potassium Crossmatch See Detail 11/27/16 11/27/16 11/27/16 08:00 08:15 19:20 WBC 11.3 H RBC 4.19 Hgb 13.6 Hct 39.8 MCV 95.0 MCH 32.5 MCHC 34.2 RDW 18.7 H Plt Count 120 MPV 11.3 H Gran % 90.1 H Lymph % (Auto) 5.1 L Brooke % (Auto) 4.7 Eos % (Auto) 0.1 L Baso % (Auto) 0.0 Gran # 10.17 H Lymph # 0.6 L Brooke # 0.5 Eos # 0.0 Baso # 0.00 PT INR APTT pCO2 pO2 HCO3 ABG pH ABG Total CO2 ABG O2 Saturation ABG O2 Content ABG Base Excess ABG Hemoglobin ABG Carboxyhemoglobin POC ABG HHb (Measured) ABG Methemoglobin ABG O2 Capacity VBG pH VBG pCO2 VBG HCO3 VBG Total CO2 VBG O2 Sat (Calc) VBG Base Excess VBG Potassium Hgb O2 Saturation Glucose Lactate FiO2 Sodium 146 Potassium 3.7 Chloride 111 H Carbon Dioxide 30 Anion Gap 9 L BUN 9 Creatinine 0.4 L Est GFR ( Amer) > 60 Est GFR (Non-Af Amer) > 60 POC Glucose (mg/dL) 125 H Random Glucose 101 Calcium 7.6 L Phosphorus Magnesium 1.7 Total Bilirubin 0.9 AST 11 L ALT 28 Alkaline Phosphatase 322 H Total Protein 4.4 L Albumin 1.9 L Globulin 2.4 Albumin/Globulin Ratio 0.8 L Venous Blood Potassium Crossmatch 11/27/16 11/27/16 11/27/16 19:30 19:40 19:40 WBC 11.5 H RBC 4.82 Hgb 15.1 Hct 45.4 MCV 94.2 MCH 31.3 MCHC 33.3 RDW 17.9 H Plt Count 119 L MPV 11.8 H Gran % 87.5 H Lymph % (Auto) 7.2 L Brooke % (Auto) 5.1 Eos % (Auto) 0.2 L Baso % (Auto) 0.0 Gran # 10.10 H Lymph # 0.8 L Brooke # 0.6 Eos # 0.0 Baso # 0.00 PT 12.4 H INR 1.15 H APTT 30.1 pCO2 38 pO2 105.0 H HCO3 24.1 ABG pH 7.41 ABG Total CO2 25.3 ABG O2 Saturation 98.8 H ABG O2 Content 19.2 ABG Base Excess -0.3 ABG Hemoglobin 14.1 ABG Carboxyhemoglobin 1.6 H POC ABG HHb (Measured) 1.2 ABG Methemoglobin 0.9 ABG O2 Capacity 19.4 VBG pH VBG pCO2 VBG HCO3 VBG Total CO2 VBG O2 Sat (Calc) VBG Base Excess VBG Potassium Hgb O2 Saturation 96.2 Glucose Lactate FiO2 28.0 Sodium Potassium Chloride Carbon Dioxide Anion Gap BUN Creatinine Est GFR ( Amer) Est GFR (Non-Af Amer) POC Glucose (mg/dL) Random Glucose Calcium Phosphorus Magnesium Total Bilirubin AST ALT Alkaline Phosphatase Total Protein Albumin Globulin Albumin/Globulin Ratio Venous Blood Potassium Crossmatch 11/27/16 11/27/16 19:40 19:40 WBC RBC Hgb Hct MCV MCH MCHC RDW Plt Count MPV Gran % Lymph % (Auto) Brooke % (Auto) Eos % (Auto) Baso % (Auto) Gran # Lymph # Brooke # Eos # Baso # PT INR APTT pCO2 pO2 98 H HCO3 ABG pH ABG Total CO2 ABG O2 Saturation ABG O2 Content ABG Base Excess ABG Hemoglobin ABG Carboxyhemoglobin POC ABG HHb (Measured) ABG Methemoglobin ABG O2 Capacity VBG pH 7.44 H VBG pCO2 43.0 VBG HCO3 29.2 H VBG Total CO2 30.5 H VBG O2 Sat (Calc) 98.6 H VBG Base Excess 4.4 H VBG Potassium 3.8 Hgb O2 Saturation Glucose 118 H Lactate 2.7 H FiO2 21.0 Sodium 146.0 145 Potassium 3.7 Chloride 112.0 H 111 H Carbon Dioxide 28 Anion Gap 10 BUN 9 Creatinine 0.3 L Est GFR ( Amer) > 60 Est GFR (Non-Af Amer) > 60 POC Glucose (mg/dL) Random Glucose 111 H Calcium 7.9 L Phosphorus 3.2 Magnesium 1.8 Total Bilirubin 1.0 AST 15 ALT 24 Alkaline Phosphatase 402 H Total Protein 4.7 L Albumin 2.1 L Globulin 2.6 Albumin/Globulin Ratio 0.8 L Venous Blood Potassium 3.8 Crossmatch Attending/Attestation - Attestation I have personally seen and examined this patient.: Yes I have fully participated in the care of the patient.: Yes I have reviewed all pertinent clinical information: Yes Notes (Text): 11/28/16 02:19 I agree with the above mentioned note by the resident with the addition/ exception of the followin61 y/o female with a PMHx as listed above, known to myself from her previous stays in the ICU during this lengthy visit was called for two PAINTER TOUCH UP's earlier today. The first was called due to the patient having altered mentation, rapidly blinking her eyes and not communicating with family or staff as she had previously been doing so. The patient was assessed by the house doctor who ordered a transfer to telemetry for possible partial seizures. Soon afterwards the patient underwent a tonic clonic seizure which was relieved by Ativan IVP. Patient underwent CT of the head and was subsequently transferred to the ICU for further care and monitoring due to a prolonged post-ictal phase and the concern for status epilepticus. The Head CT revealed multiple hypodensities concerning for possible CVA as well as possible metsatases. Patient was stabilized and remains in the ICU. Poor prognosis discussed with the family at bedside, including the mother and the patient remains a full code at this time. Neurology consulted and patient was loaded with IV Keppra and is on Valproic acid IV as well. Labs and images from today reviewed Case discussed at length with the house Dr. Chavez Billy Total time of care: 50 minutes
[2016-11-27] MEDS: Valproate 250 MG in Sodium Chloride 0.9% 100 ML IVPB SCH (23:15)
[2016-11-28] MEDS: HYDROmorphone 1 mg/ml ISec IVP PRN ×10 (02:21→23:42)
--- NOTE | 2016-11-28 04:01 | PN ---
DATE: 10/09/2016 SUBJECTIVE: The patient is currently seen on 3R, lying comfortable, supine in bed, IV fluids are infusing. The patient has received potassium supplements and her potassium level is now up to 3.7. Her renal parameters remain normal. MEDICATIONS: Medication list reviewed. The patient is currently on Apresoline, Benadryl, Carafate, citrate of magnesia, Desitin, Diflucan, Dilaudid, vitamin D, Dulcolax, Duragesic, Feosol, triamcinolone dental paste, Hydrophor, Inderal LA, Lasix, magnesium oxide, IV fluid with potassium chloride, Santyl, multivitamins, p.r.n. Tylenol, Zestril and Zofran p.r.n. OBJECTIVE: INTAKE/OUTPUT: Intake 120/output 800. VITAL SIGNS: Blood pressure 174/88, temperature 98.1, pulse of 55, respiratory rate of 20. HEENT: Normocephalic, atraumatic. Conjunctivae are pink. Sclerae are nonicteric. NECK: Supple. No neck vein distention. CHEST: Clear to auscultation and percussion. No rales. No rhonchi. No wheezing. CARDIOVASCULAR: S1 and S2, regular. No murmurs, rubs, or gallops noted. ABDOMEN: Positive colostomy. Soft, no masses, no rebound or guarding. EXTREMITIES: She had no pitting edema. No cyanosis or clubbing. LABORATORY DATA AND IMAGING: CBC today, white blood cell count of 11.3, hemoglobin up to 13.6 and stable, platelet count is 120,000. Chemistries show a sodium of 146 with a potassium of 3.7, chloride is 111 with a CO2 of 30, BUN is 9 with a creatinine of 0.4, glucose is 101. Calcium is 7.6 with an albumin level of 1.9, magnesium level is now normal at 1.7, phosphorous level is 3.9. Microbiology; urine Gram negative rohan in the urine. Nose cultures, coag-negative staph. Blood cultures otherwise have been negative. Catheter tip grew out Susy albicans earlier this month. ASSESSMENT: 1. Status post acute renal failure, BUN and creatinine are now normal. 2. Hypokalemia, potassium has been replaced with IV supplements. Potassium today is 3.7 with a magnesium level of 1.7. 3. Stage V colon cancer with mets, status post palliative colostomy. 4. History of thrombocytopenia secondary to malignancy. 5. Status post fungemia and bacteriemia. Urine is positive for Gram negative rods. The patient has completed a course of antibiotic therapy. 6. Mild hypomagnesemia, the patient has received both oral and IV magnesium supplements. Her magnesium level is now normal. PLAN: 1. Continue to monitor the patient on IV fluid, hydration with potassium. 2. Of note, her blood pressure has trended higher over the last several days. The patient continues on lisinopril. We will start the patient on Norvasc 5 mg daily. 3. Continue Lasix therapy to prevent edema. 4. Further management as per Dr. Hendricks. Kyle Brooks MD
--- NOTE | 2016-11-28 08:04 | CP.PCM.PN ---
Subjective - Date & Time of Evaluation Date of Evaluation: 11/28/16 Time of Evaluation: 08:02 - Subjective Subjective: PGY-[address] Hendricks Pt was lethargic but arousable by voice. Able to verbalize in one word, "pain", "cold" VSS on monitor Objective - Vital Signs/Intake and Output Vital Signs (last 24 hours): Temp Pulse Resp BP Pulse Ox 97.9 F 85 12 132/82 100 11/28/16 04:00 11/28/16 06:00 11/28/16 06:00 11/28/16 06:00 11/28/16 06:00 Intake and Output: 11/28/16 11/28/16 06:59 18:59 Intake Total 820 Output Total 1775 Balance -955 - Medications Medications: Current Medications Acetaminophen (Tylenol 650 Mg Supp) 650 mg RC Q4H PRN PRN Reason: Fever >100.4 F Last Admin: 11/01/16 21:18 Dose: 650 mg Amlodipine Besylate (Norvasc) 5 mg PO DAILY [facility] Collagenase (Santyl) 1 gm TOP BID [facility] Last Admin: 11/27/16 17:34 Dose: 1 applic Al Hydrox/Mg Hydrox/Simethicone 30 ml/Diphenhydramine HCl 75 mg/Lidocaine 30 ml 0 ml PO QID [facility] Last Admin: 11/27/16 22:30 Dose: Not Given Diphenhydramine HCl (Benadryl) 50 mg IVP HS PRN PRN Reason: Insomnia Last Admin: 11/27/16 01:00 Dose: 50 mg Ergocalciferol (Drisdol 50,000 Intl Units Cap) 1 cap PO Q7D [facility] Last Admin: 11/19/16 18:04 Dose: Not Given Fentanyl (Duragesic) 1 patch TD Q72H [facility] Last Admin: 11/22/16 14:30 Dose: 1 patch Ferrous Sulfate (Feosol) 324 mg PO TID [facility] Last Admin: 11/27/16 17:33 Dose: 324 mg Fluconazole (Diflucan) 200 mg PO DAILY [facility] PRN Reason: Protocol Stop: 12/12/16 10:01 Furosemide (Lasix) 20 mg IVP Q12 [facility] Last Admin: 11/27/16 22:30 Dose: 20 mg Home Med (Home Med) 1 unit PO Q12H PRN PRN Reason: Inflammation Last Admin: 10/18/16 11:03 Dose: 1 unit Hydralazine HCl (Apresoline) 10 mg IVP Q4H PRN PRN Reason: Systolic Blood Pressure Hydromorphone HCl (Dilaudid) 1 mg IVP Q1H PRN PRN Reason: Pain, severe (8-10) Last Admin: 11/28/16 05:50 Dose: 1 mg Potassium Chloride (Potassium Chloride 20 Meq/100 Ml) 20 meq in 100 mls @ 50 mls/hr IVPB DAILY [facility] Last Admin: 11/27/16 11:22 Dose: 50 mls/hr Potassium Chloride 40 meq/ (Dextrose/Sodium Chloride) 1,020 mls @ 60 mls/hr IV .Q17H [facility] Last Admin: 11/27/16 18:50 Dose: 60 mls/hr Levetiracetam (Keppra 500mg Ivpb) 500 mg in 100 mls @ 400 mls/hr IV Q12 [facility] Valproate Sodium 250 mg/ (Sodium Chloride) 102.5 mls @ 100 mls/hr IVPB Q12 [facility] Last Admin: 11/27/16 23:15 Dose: 100 mls/hr Lisinopril (Zestril) 10 mg PO DAILY [facility] Magnesium Oxide (Mag-Ox) 400 mg PO BID [facility] Last Admin: 11/27/16 17:33 Dose: 400 mg Multi-Ingredient Ointment (Hydrophor Oint) 0 gm TOP Q6H PRN PRN Reason: Dry lip Multivitamins (Thera Tab) 1 tab PO 0800 [facility] Last Admin: 11/27/16 08:34 Dose: 1 tab Ondansetron HCl (Zofran Inj) 4 mg IVP Q4H PRN PRN Reason: Nausea/Vomiting Last Admin: 11/24/16 00:05 Dose: 4 mg Petrolatum (Desitin Maximum Strength Topical 40% Oint) 1 gm TOP Q4H PRN PRN Reason: Rash Last Admin: 10/23/16 22:39 Dose: 1 applic Propranolol HCl (Inderal La) 120 mg PO DAILY [facility] Last Admin: 11/27/16 09:42 Dose: 120 mg Sucralfate (Carafate Oral Susp) 1 gm PO BID [facility] Last Admin: 11/27/16 17:33 Dose: 1 gm - Labs Labs: 07/18/17 19:40 11/27/16 19:40 PT 12.4 Seconds (9.9-11.8) H 11/27/16 19:40 INR 1.15 (0.93-1.08) H 11/27/16 19:40 APTT 30.1 Seconds (23.7-30.8) 11/27/16 19:40 - Constitutional Appears: No Acute Distress, Cachectic, Chronically Ill - Head Exam Head Exam: ATRAUMATIC, NORMAL INSPECTION, NORMOCEPHALIC - Eye Exam Eye Exam: Normal appearance, PERRL. absent: Scleral icterus - ENT Exam ENT Exam: Mucous Membranes Moist - Respiratory Exam Respiratory Exam: Clear to Ausculation Bilateral. absent: Rales, Rhonchi, Wheezes - Cardiovascular Exam Cardiovascular Exam: REGULAR RHYTHM, +S1, +S2 - GI/Abdominal Exam GI & Abdominal Exam: Soft, Hypoactive Bowel Sounds Additional comments: incision line no erythema/drainge DEEJAY drained pulled, dressing d/c/i ostomy bag intact. loose formed stool, dark - Extremities Exam Extremities Exam: Normal Capillary Refill (slight b/l), Pedal Edema. absent: Calf Tenderness - Neurological Exam Additional comments: Arouse to voice. Able to verbalize needs with one word answer - Skin Skin Exam: Dry, Intact Assessment and Plan - Assessment and Plan (Free Text) Plan: 61 F admitted on 10/09/16 with sepsis post chemotherapy with 2 cycles of FOLFOX based chemotherapy with Avastin. The hospital course was complicated by anemia due to GI bleeding requiring transfusion and fungemia/bactermia with Port removal (11/14/16). L picc was placed on 10/31/16 which was not replaced due to coagulopathy and bleeding. 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 2 MORTGAGE UNDERWRITER was called (11/27) for blurry vision turned blank stair, which later turned tonic-clonic movements. During MORTGAGE UNDERWRITER, she was responsive to only painful stimuli. Left sided facial droop was experienced. Plan: Seizure due to stroke vs brain mets. Re-consulted palliative care Altered Mental Status - seizure vs stroke vs new brain mets - Keppra IV and valproic acid - noncontrast CT of the head - noncontrast chest abdomen, pelvis CT - LActate 2.7 - EEG - MRI of brain with gadolinum per neural - Palliative re-consult Hb drops from 13 (s/p 4u pRBC) to 11. 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 Hold Durgesic - Per Dr Hendricks, do not add more pain meds now. Maintain at current pain regimen. Upper GI bleed s/p EGD with push enteroscopy <-- EGD <-- bleeding scan x 2 ( negative) - No source of bleeding at examined duodedeum and jejunum - Propranolol 120 - Consider intraoperative enteroscopy or outpatient capsule endoscopy. 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 end-colostomy Susy esophagitis Pathology: Poorly differentiated colorectal adenocarcinoma metasiasis to bowel wall and serosa and one resection margin. 3/5 lymph nodes positive for metastasis - Microstaellite stable (08/13/16). Has ruled out rollins syndrome Sepsis due to C. albicans Fungemia, probably from port-a-cath Bacteremia with methicillin-resistant coagulase negative staph in repeated cx Gram negative bacilli in urine with minor - minor removed (11/24) Nose culture coagulase neg staphylococcus (11/24) - continue mycamine (day 14 since port removal) - Then switch to PO diflucan for another 2 weeks for total of 4 week antifungal tx - Off daptomycin for bactermeia r/o picc, r/o contamination (1/4 bottles) - repeated urine cx negative - observe off abx - Hold valganciclovir, no CMV on esophagus ulcer Severe hypokalemia Hypernatermia Severe malnutrition, albumin 2.0 Hypomandnesemia - replete as needed - Ensure 3 can/day - Mag-Ox 400mg BID - KCL piggybag daily - D5/NS with KCl 40 @ 100 Edema - lasix 20q12 Prophylasix - SCD, sucralfate BID s/r/d/w Dr. Hendricks
[2016-11-28 08:19] LABS: ALB/GLOB RATIO 0.8 (1.1-1.8); ALBUMIN 2.1 g/dL (3.0-4.8); ALT/SGPT 27 U/L (7-56); AST/SGOT 16 U/L (15-39); BLOOD UREA NITROGEN 11 mg/dL (7-21); GFR AFRICAN-AMERICAN > 60; GFR NON-AFRICAN AMERICAN > 60; MAGNESIUM 1.6 mg/dL (1.7-2.2)
[2016-11-28 08:21] LABS: INR 1.12 (0.93-1.08); PARTIAL THROMBOPLASTIN TIME 28.5 Seconds (23.7-30.8); PROTHROMBIN TIME 12.1 Seconds (9.9-11.8)
[2016-11-28 08:54] LABS: BASO # 0.01 K/mm3 (0.0-2.0); BASO % 0.1 % (0.0-3.0); EOS % 0.1 % (1.5-5.0); GRAN % 88.6 % (50.0-68.0); HEMOGLOBIN 15.4 gm/dL (12.0-16.0); LYMPH # 0.9 (1.2-3.4); LYMPH % 5.9 % (22.0-35.0); MEAN CELL VOLUME 92.7 fL (80.0-105.0); MEAN CORPUSCULAR HEMOGLOBIN 30.4 pg (25.0-35.0); MEAN CORPUSCULAR HGB CONC 32.8 g/dl (31.0-37.0); MEAN PLATELET VOLUME 11.7 fl (7.0-11.0); MONO # 0.8 (0.1-0.6); MONO % 5.3 % (1.0-6.0); PLATELET COUNT 108 10^3/uL (120.0-450.0); RBC 5.07 10^6/uL (3.5-6.1); RED CELL DISTRIBUTION WIDTH 17.1 % (11.5-14.5)
--- NOTE | 2016-11-28 09:06 | CP.PCM.PN ---
<Dereje London - Last Filed: 11/28/16 11:29> Subjective - Date & Time of Evaluation Date of Evaluation: 11/28/16 Time of Evaluation: 08:50 - Subjective Subjective: General Surgery Dr. Mccracken Patient seen and examined at bedside this morning. Patient had two air brake worker called on her last night. The first was call when the patient stated that she complained of blurry vision, which turned to a blank stare and the patient became non-responsive. While the Rapid Response Team was evaluating her, they reported seeing tonic-clonic movements in which they had to use Ativan to break the believed seizure. CT was performed which showed hypodense area in the brain which is indicative of possible mets or CVA. Patient is currently alert and responsive but repeatedly states the phrases, "Heel Blacker" "I can't drive." and "I can't see." When asked her name or the name of anyone else she always responds with her name, "Sherie Gibson." Patient is unable to answer any questions appropriately. Objective - Vital Signs/Intake and Output Vital Signs (last 24 hours): Temp Pulse Resp BP Pulse Ox 98.2 F 77 14 132/82 100 11/28/16 08:00 11/28/16 08:00 11/28/16 08:00 11/28/16 06:00 11/28/16 08:00 Intake and Output: 11/28/16 11/28/16 06:59 18:59 Intake Total 820 Output Total 1775 Balance -955 - Medications Medications: Current Medications Acetaminophen (Tylenol 650 Mg Supp) 650 mg RC Q4H PRN PRN Reason: Fever >100.4 F Last Admin: 11/01/16 21:18 Dose: 650 mg Amlodipine Besylate (Norvasc) 5 mg PO DAILY [facility] Collagenase (Santyl) 1 gm TOP BID [facility] Last Admin: 11/27/16 17:34 Dose: 1 applic Al Hydrox/Mg Hydrox/Simethicone 30 ml/Diphenhydramine HCl 75 mg/Lidocaine 30 ml 0 ml PO QID [facility] Last Admin: 11/27/16 22:30 Dose: Not Given Diphenhydramine HCl (Benadryl) 50 mg IVP HS PRN PRN Reason: Insomnia Last Admin: 11/27/16 01:00 Dose: 50 mg Ergocalciferol (Drisdol 50,000 Intl Units Cap) 1 cap PO Q7D [facility] Last Admin: 11/19/16 18:04 Dose: Not Given Fentanyl (Duragesic) 1 patch TD Q72H [facility] Last Admin: 11/22/16 14:30 Dose: 1 patch Ferrous Sulfate (Feosol) 324 mg PO TID [facility] Last Admin: 11/27/16 17:33 Dose: 324 mg Fluconazole (Diflucan) 200 mg PO DAILY [facility] PRN Reason: Protocol Stop: 12/12/16 10:01 Furosemide (Lasix) 20 mg IVP Q12 [facility] Last Admin: 11/27/16 22:30 Dose: 20 mg Home Med (Home Med) 1 unit PO Q12H PRN PRN Reason: Inflammation Last Admin: 10/18/16 11:03 Dose: 1 unit Hydralazine HCl (Apresoline) 10 mg IVP Q4H PRN PRN Reason: Systolic Blood Pressure Hydromorphone HCl (Dilaudid) 1 mg IVP Q1H PRN PRN Reason: Pain, severe (8-10) Last Admin: 11/28/16 08:04 Dose: 1 mg Potassium Chloride (Potassium Chloride 20 Meq/100 Ml) 20 meq in 100 mls @ 50 mls/hr IVPB DAILY [facility] Last Admin: 11/27/16 11:22 Dose: 50 mls/hr Potassium Chloride 40 meq/ (Dextrose/Sodium Chloride) 1,020 mls @ 60 mls/hr IV .Q17H [facility] Last Admin: 11/27/16 18:50 Dose: 60 mls/hr Levetiracetam (Keppra 500mg Ivpb) 500 mg in 100 mls @ 400 mls/hr IV Q12 [facility] Valproate Sodium 250 mg/ (Sodium Chloride) 102.5 mls @ 100 mls/hr IVPB Q12 [facility] Last Admin: 11/27/16 23:15 Dose: 100 mls/hr Lisinopril (Zestril) 10 mg PO DAILY [facility] Magnesium Oxide (Mag-Ox) 400 mg PO BID [facility] Last Admin: 11/27/16 17:33 Dose: 400 mg Multi-Ingredient Ointment (Hydrophor Oint) 0 gm TOP Q6H PRN PRN Reason: Dry lip Multivitamins (Thera Tab) 1 tab PO 0800 [facility] Last Admin: 11/27/16 08:34 Dose: 1 tab Ondansetron HCl (Zofran Inj) 4 mg IVP Q4H PRN PRN Reason: Nausea/Vomiting Last Admin: 11/24/16 00:05 Dose: 4 mg Petrolatum (Desitin Maximum Strength Topical 40% Oint) 1 gm TOP Q4H PRN PRN Reason: Rash Last Admin: 10/23/16 22:39 Dose: 1 applic Propranolol HCl (Inderal La) 120 mg PO DAILY [facility] Last Admin: 11/27/16 09:42 Dose: 120 mg Sucralfate (Carafate Oral Susp) 1 gm PO BID [facility] Last Admin: 11/27/16 17:33 Dose: 1 gm - Labs Labs: 11/27/16 19:40 11/28/16 08:01 PT 12.4 Seconds (9.9-11.8) H 11/27/16 19:40 INR 1.15 (0.93-1.08) H 11/27/16 19:40 APTT 30.1 Seconds (23.7-30.8) 11/27/16 19:40 - Constitutional Appears: Non-toxic, Confused - Head Exam Head Exam: ATRAUMATIC, NORMOCEPHALIC - Eye Exam Eye Exam: EOMI, PERRL - ENT Exam ENT Exam: Mucous Membranes Dry - Respiratory Exam Respiratory Exam: NORMAL BREATHING PATTERN. absent: Accessory Muscle Use, Respiratory Distress - Cardiovascular Exam Cardiovascular Exam: REGULAR RHYTHM - GI/Abdominal Exam GI & Abdominal Exam: Soft. absent: Distended, Tenderness - Neurological Exam Neurological Exam: Alert, Awake Additional comments: Patient is alert, awake but not orientated. She responded to questions but was unable to answer them appropriately. Patient was moving her UE and LE spontaneously. Assessment and Plan - Assessment and Plan (Free Text) Assessment: 61 year old with metastatic colon CA, GI bleed, new onset seizure, and new findings on brain CT. Plan: MRI and EEG recommended per Neuro Monitor H+H, AM labs pending, transfuse prn Monitor electrolytes, K - 3.6 today Pain management Continue Abx for fungemia per ID Periodically re-evaluate family's stance on patient's code status. Currently full code. Will discuss with Dr. Kaykay Reyez Lita PGY1 <Yoan Mccracken - Last Filed: 12/03/16 00:00> Objective - Vital Signs/Intake and Output Vital Signs (last 24 hours): Temp Pulse Resp BP Pulse Ox 97.8 F 101 H 18 170/89 H 100 12/02/16 16:00 12/02/16 16:00 12/02/16 16:00 12/02/16 16:00 12/02/16 16:00 Intake and Output: 12/02/16 12/03/16 18:59 06:59 Intake Total 120 Output Total 450 600 Balance -450 -480 - Medications Medications: Current Medications Acetaminophen (Tylenol 650 Mg Supp) 650 mg RC Q4H PRN PRN Reason: Fever >100.4 F Last Admin: 11/01/16 21:18 Dose: 650 mg Al Hydrox/Mg Hydrox/Simethicone 30 ml/Diphenhydramine HCl 75 mg/Lidocaine 30 ml 0 ml PO QID [facility] Last Admin: 12/02/16 21:01 Dose: Not Given Diphenhydramine HCl (Benadryl) 50 mg IVP HS PRN PRN Reason: Insomnia Last Admin: 11/27/16 01:00 Dose: 50 mg Ergocalciferol (Drisdol 50,000 Intl Units Cap) 1 cap PO Q7D [facility] Last Admin: 11/19/16 18:04 Dose: Not Given Ferrous Sulfate (Feosol) 324 mg PO TID [facility] Last Admin: 12/02/16 18:16 Dose: Not Given Fluconazole (Diflucan) 200 mg PO DAILY [facility] PRN Reason: Protocol Stop: 12/12/16 10:01 Last Admin: 12/02/16 09:44 Dose: Not Given Home Med (Home Med) 1 unit PO Q12H PRN PRN Reason: Inflammation Last Admin: 10/18/16 11:03 Dose: 1 unit Hydralazine HCl (Apresoline) 10 mg IVP Q4H PRN PRN Reason: Systolic Blood Pressure Hydromorphone HCl (Dilaudid) 1 mg IVP Q1H PRN PRN Reason: Pain, moderate (4-7) Last Admin: 12/02/16 21:06 Dose: 1 mg Levetiracetam (Keppra 500mg Ivpb) 500 mg in 100 mls @ 400 mls/hr IV Q12 [facility] Last Admin: 12/02/16 21:06 Dose: 400 mls/hr Potassium Chloride/Dextrose (Potassium Chl 40 Meq In D5w) 1,000 mls @ 60 mls/ hr IV .[id number] [facility] Last Admin: 12/02/16 18:17 Dose: Not Given Magnesium Hydroxide (Milk Of Magnesia) 30 ml PO DAILY PRN PRN Reason: skin irritation Last Admin: 12/02/16 14:09 Dose: 30 ml Magnesium Oxide (Mag-Ox) 400 mg PO BID [facility] Last Admin: 12/02/16 18:16 Dose: Not Given Multi-Ingredient Ointment (Hydrophor Oint) 0 gm TOP Q6H PRN PRN Reason: Dry lip Multivitamins (Thera Tab) 1 tab PO 0800 [facility] Last Admin: 12/02/16 08:10 Dose: Not Given Propranolol HCl (Inderal La) 120 mg PO DAILY [facility] Last Admin: 12/02/16 09:44 Dose: Not Given Sucralfate (Carafate Oral Susp) 1 gm PO BID [facility] Last Admin: 12/02/16 18:16 Dose: Not Given - Labs Labs: 12/02/16 06:00 12/02/16 06:00 PT 12.9 Seconds (9.9-11.8) H 12/02/16 06:00 INR 1.19 (0.93-1.08) H 12/02/16 06:00 APTT 32.9 Seconds (23.7-30.8) H 12/02/16 06:00 Assessment and Plan - Assessment and Plan (Free Text) Plan: Patient was seen and examined by me. I agree with assessment and plan as per resident's note.
[2016-11-28] MEDS ORDERED: Magnesium Sulfate 2 GM in Sodium Chloride 0.9% 100 ML IVPB ONE (09:35)
--- NOTE | 2016-11-28 09:45 | CP.PCM.CON ---
<Laura Navarro - Last Filed: 11/28/16 12:12> History of Present Illness - History of Present Illness History of Present Illness: PGY2 Neurology consult note for Dr Moya. Reason for consult: new onset seizures. 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 Patient' hospital state was also complicated by severe malnutrition, electrolyte imbalance, fungemia from chemo port, Gi bleed and SBO. Patient underwent exp lap on 11/17/16 with lysis of adhesion, repair of small bowel enterotomy and max's procedure. Patient appeared to be improving when she was transferred from ICU to floors, until last night when [employer] CAR W[employer]DER was called due to seizure like activities. As per nurse's note, patient c/o dizziness and blurred vision and at some point had blank stare and began to shake. During the [employer] patient had another episode of tonic clonic seizures, patient was giving stat dose ativan, and was transported to CT. Patient was keppra laod and IV valproic acid, and was admitted to ICU for further monitoring. Neurology is consulted for new onset seizures. This AM, patient appears very lethargic, patient is arousable intermittently. When aroused, patient is only c/ o feeling cold. Patient's sister was at the bed side, reported since being in the hospital, patient has become very deconditioned and weak. Prior to hospitalization patient was able to ambulate unassisted. Denies h/o seizure disorders. MRI from November 2012 didn't show any quada equina. PMH: As stated above PSH: Colectomy in 2014, and recent exp lap with metcalf's procedure. Review of Systems - Review of Systems Systems not reviewed;Unavailable: Other (Too lethargic to answer. ) Past Patient History - Infectious Disease Hx of Infectious Diseases: None - Tetanus Immunizations Tetanus Immunization: Unknown - Past Social History Smoking Status: Never Smoked Alcohol: None Drugs: Denies Home Situation {Lives}: With Family - CARDIAC Hx Cardiac Disorders: Yes Hx Hypertension: Yes - PULMONARY Hx Respiratory Disorders: No - NEUROLOGICAL Hx Neurological Disorder: No - HEENT Hx HEENT Problems: Yes (Contacts/glasses) - RENAL Hx Renal Failure: Yes (urinary retention) - ENDOCRINE/METABOLIC Hx Endocrine Disorders: No - HEMATOLOGICAL/ONCOLOGICAL Hx Blood Transfusions: Yes Hx Blood Transfusion Reaction: No - INTEGUMENTARY 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) - MUSCULOSKELETAL/RHEUMATOLOGICAL Hx Musculoskeletal Disorders: Yes Hx Back Pain: Yes Hx Falls: No - GASTROINTESTINAL Hx Gastroesophageal Reflux: Yes - GENITOURINARY/GYNECOLOGICAL Hx Genitourinary Disorders: Yes Hx Urinary Tract Infection: Yes - PSYCHIATRIC Hx Psychophysiologic Disorder: Yes Hx Anxiety: Yes Hx Substance Use: No - SURGICAL HISTORY Hx Surgeries: Yes - ANESTHESIA Hx Anesthesia Reactions: No Hx Malignant Hyperthermia: No Meds Allergies/Adverse Reactions: Allergies Allergy/AdvReac Type Severity Reaction Status Date / Time IV CONTRAST Allergy Severe SHORTNESS Uncoded 10/06/16 18:13 OF BREATH CAF Allergy Intermediate PALPITATION Uncoded 10/06/16 18:13 S - Medications Medications: Current Medications Acetaminophen (Tylenol 650 Mg Supp) 650 mg RC Q4H PRN PRN Reason: Fever >100.4 F Last Admin: 11/01/16 21:18 Dose: 650 mg Amlodipine Besylate (Norvasc) 5 mg PO DAILY [facility] Collagenase (Santyl) 1 gm TOP BID [facility] Last Admin: 11/27/16 17:34 Dose: 1 applic Al Hydrox/Mg Hydrox/Simethicone 30 ml/Diphenhydramine HCl 75 mg/Lidocaine 30 ml 0 ml PO QID [facility] Last Admin: 11/27/16 22:30 Dose: Not Given Diphenhydramine HCl (Benadryl) 50 mg IVP HS PRN PRN Reason: Insomnia Last Admin: 11/27/16 01:00 Dose: 50 mg Ergocalciferol (Drisdol 50,000 Intl Units Cap) 1 cap PO Q7D [facility] Last Admin: 11/19/16 18:04 Dose: Not Given Fentanyl (Duragesic) 1 patch TD Q72H [facility] Last Admin: 11/22/16 14:30 Dose: 1 patch Ferrous Sulfate (Feosol) 324 mg PO TID [facility] Last Admin: 11/27/16 17:33 Dose: 324 mg Fluconazole (Diflucan) 200 mg PO DAILY [facility] PRN Reason: Protocol Stop: 12/12/16 10:01 Furosemide (Lasix) 20 mg IVP Q12 [facility] Last Admin: 11/27/16 22:30 Dose: 20 mg Home Med (Home Med) 1 unit PO Q12H PRN PRN Reason: Inflammation Last Admin: 10/18/16 11:03 Dose: 1 unit Hydralazine HCl (Apresoline) 10 mg IVP Q4H PRN PRN Reason: Systolic Blood Pressure Hydromorphone HCl (Dilaudid) 1 mg IVP Q1H PRN PRN Reason: Pain, severe (8-10) Last Admin: 11/28/16 08:04 Dose: 1 mg Potassium Chloride (Potassium Chloride 20 Meq/100 Ml) 20 meq in 100 mls @ 50 mls/hr IVPB DAILY [facility] Last Admin: 11/27/16 11:22 Dose: 50 mls/hr Potassium Chloride 40 meq/ (Dextrose/Sodium Chloride) 1,020 mls @ 60 mls/hr IV .Q17H [facility] Last Admin: 11/27/16 18:50 Dose: 60 mls/hr Levetiracetam (Keppra 500mg Ivpb) 500 mg in 100 mls @ 400 mls/hr IV Q12 [facility] Valproate Sodium 250 mg/ (Sodium Chloride) 102.5 mls @ 100 mls/hr IVPB Q12 [facility] Last Admin: 11/27/16 23:15 Dose: 100 mls/hr Lisinopril (Zestril) 10 mg PO DAILY [facility] Magnesium Oxide (Mag-Ox) 400 mg PO BID [facility] Last Admin: 11/27/16 17:33 Dose: 400 mg Multi-Ingredient Ointment (Hydrophor Oint) 0 gm TOP Q6H PRN PRN Reason: Dry lip Multivitamins (Thera Tab) 1 tab PO 0800 [facility] Last Admin: 11/27/16 08:34 Dose: 1 tab Ondansetron HCl (Zofran Inj) 4 mg IVP Q4H PRN PRN Reason: Nausea/Vomiting Last Admin: 11/24/16 00:05 Dose: 4 mg Petrolatum (Desitin Maximum Strength Topical 40% Oint) 1 gm TOP Q4H PRN PRN Reason: Rash Last Admin: 10/23/16 22:39 Dose: 1 applic Propranolol HCl (Inderal La) 120 mg PO DAILY [facility] Last Admin: 11/27/16 09:42 Dose: 120 mg Sucralfate (Carafate Oral Susp) 1 gm PO BID [facility] Last Admin: 11/27/16 17:33 Dose: 1 gm Physical Exam - Constitutional Appears: No Acute Distress, Older Than Stated Age, Cachectic, Chronically Ill - Head Exam Head Exam: ATRAUMATIC, NORMAL INSPECTION, NORMOCEPHALIC - Eye Exam Eye Exam: EOMI, Normal appearance, PERRL. absent: Conjunctival injection, Nystagmus, Scleral icterus Pupil Exam: NORMAL ACCOMODATION, PERRL - ENT Exam ENT Exam: Mucous Membranes Moist - Neck Exam Neck exam: Positive for: Normal Inspection. Negative for: Lymphadenopathy, Meningismus, Tenderness - Respiratory Exam Respiratory Exam: Clear to Auscultation Bilateral, NORMAL BREATHING PATTERN. absent: Rales, Rhonchi, Wheezes, Respiratory Distress, Stridor - Cardiovascular Exam Cardiovascular Exam: Tachycardia, REGULAR RHYTHM, +S1, +S2 - GI/Abdominal Exam GI & Abdominal Exam: Hypoactive Bowel Sounds, Soft. absent: Distended Additional comments: Ostomy in place. - Extremities Exam Extremities exam: Positive for: pedal pulses present. Negative for: calf tenderness, pedal edema - Neurological Exam Additional comments: Patient appears very lethargic and drowsy, aroused to verbal and tactile stimuli. Patient appears a little confused. Patient is too drowsy to follow commands and participate in neurologic exams. Eyes were open spontaneously. Pupils reactive to light. Reflexes 2+ throughout in the Achilles tender and patella tendons b/l No nuchal rigidity. Negative babinski No clonus. Patient is moving her upper extremities spontaneously, however too lethargic to move her lower extremities. - Psychiatric Exam Psychiatric exam: Depressed - Skin Skin Exam: Normal Color, Warm Results - Vital Signs Recent Vital Signs: Last Vital Signs Temp 98.2 F 11/28/16 08:00 Pulse 77 11/28/16 08:00 Resp 14 11/28/16 08:00 BP 132/82 11/28/16 06:00 Pulse Ox 100 11/28/16 08:00 - Labs Result Diagrams: 11/28/16 08:01 11/28/16 08:01 Labs: Laboratory Results - last 24 hr 11/23/16 11/27/16 11/27/16 11:15 19:20 19:30 WBC RBC Hgb Hct MCV MCH MCHC RDW Plt Count MPV Gran % Lymph % (Auto) [place] % (Auto) Eos % (Auto) Baso % (Auto) Gran # Lymph # [place] # Eos # Baso # PT INR APTT pCO2 38 pO2 105.0 H HCO3 24.1 ABG pH 7.41 ABG Total CO2 25.3 ABG O2 Saturation 98.8 H ABG O2 Content 19.2 ABG Base Excess -0.3 ABG Hemoglobin 14.1 ABG Carboxyhemoglobin 1.6 H POC ABG HHb (Measured) 1.2 ABG Methemoglobin 0.9 ABG O2 Capacity 19.4 VBG pH VBG pCO2 VBG HCO3 VBG Total CO2 VBG O2 Sat (Calc) VBG Base Excess VBG Potassium Hgb O2 Saturation 96.2 Sodium Chloride Glucose Lactate FiO2 28.0 Potassium Carbon Dioxide Anion Gap BUN Creatinine Est GFR ( Amer) Est GFR (Non-Af Amer) POC Glucose (mg/dL) 125 H Random Glucose Calcium Phosphorus Magnesium Total Bilirubin AST ALT Alkaline Phosphatase Total Creatine Kinase Total Protein Albumin Globulin Albumin/Globulin Ratio Venous Blood Potassium Crossmatch See Detail 11/27/16 11/27/16 11/27/16 19:40 19:40 19:40 WBC 11.5 H RBC 4.82 Hgb 15.1 Hct 45.4 MCV 94.2 MCH 31.3 MCHC 33.3 RDW 17.9 H Plt Count 119 L MPV 11.8 H Gran % 87.5 H Lymph % (Auto) 7.2 L [place] % (Auto) 5.1 Eos % (Auto) 0.2 L Baso % (Auto) 0.0 Gran # 10.10 H Lymph # 0.8 L [place] # 0.6 Eos # 0.0 Baso # 0.00 PT 12.4 H INR 1.15 H APTT 30.1 pCO2 pO2 98 H HCO3 ABG pH ABG Total CO2 ABG O2 Saturation ABG O2 Content ABG Base Excess ABG Hemoglobin ABG Carboxyhemoglobin POC ABG HHb (Measured) ABG Methemoglobin ABG O2 Capacity VBG pH 7.44 H VBG pCO2 43.0 VBG HCO3 29.2 H VBG Total CO2 30.5 H VBG O2 Sat (Calc) 98.6 H VBG Base Excess 4.4 H VBG Potassium 3.8 Hgb O2 Saturation Sodium 146.0 Chloride 112.0 H Glucose 118 H Lactate 2.7 H FiO2 21.0 Potassium Carbon Dioxide Anion Gap BUN Creatinine Est GFR ( Amer) Est GFR (Non-Af Amer) POC Glucose (mg/dL) Random Glucose Calcium Phosphorus Magnesium Total Bilirubin AST ALT Alkaline Phosphatase Total Creatine Kinase Total Protein Albumin Globulin Albumin/Globulin Ratio Venous Blood Potassium 3.8 Crossmatch 11/27/16 11/28/16 11/28/16 19:40 08:01 08:01 WBC 15.0 H D RBC 5.07 Hgb 15.4 Hct 47.0 MCV 92.7 MCH 30.4 MCHC 32.8 RDW 17.1 H Plt Count 108 L MPV 11.7 H Gran % 88.6 H Lymph % (Auto) 5.9 L [place] % (Auto) 5.3 Eos % (Auto) 0.1 L Baso % (Auto) 0.1 Gran # 13.30 H Lymph # 0.9 L [place] # 0.8 H Eos # 0.0 Baso # 0.01 PT 12.1 H INR 1.12 H APTT 28.5 pCO2 pO2 HCO3 ABG pH ABG Total CO2 ABG O2 Saturation ABG O2 Content ABG Base Excess ABG Hemoglobin ABG Carboxyhemoglobin POC ABG HHb (Measured) ABG Methemoglobin ABG O2 Capacity VBG pH VBG pCO2 VBG HCO3 VBG Total CO2 VBG O2 Sat (Calc) VBG Base Excess VBG Potassium Hgb O2 Saturation Sodium 145 Chloride 111 H Glucose Lactate FiO2 Potassium 3.7 Carbon Dioxide 28 Anion Gap 10 BUN 9 Creatinine 0.3 L Est GFR ( Amer) > 60 Est GFR (Non-Af Amer) > 60 POC Glucose (mg/dL) Random Glucose 111 H Calcium 7.9 L Phosphorus 3.2 Magnesium 1.8 Total Bilirubin 1.0 AST 15 ALT 24 Alkaline Phosphatase 402 H Total Creatine Kinase Total Protein 4.7 L Albumin 2.1 L Globulin 2.6 Albumin/Globulin Ratio 0.8 L Venous Blood Potassium Crossmatch 11/28/16 08:01 WBC RBC Hgb Hct MCV MCH MCHC RDW Plt Count MPV Gran % Lymph % (Auto) [place] % (Auto) Eos % (Auto) Baso % (Auto) Gran # Lymph # [place] # Eos # Baso # PT INR APTT pCO2 pO2 HCO3 ABG pH ABG Total CO2 ABG O2 Saturation ABG O2 Content ABG Base Excess ABG Hemoglobin ABG Carboxyhemoglobin POC ABG HHb (Measured) ABG Methemoglobin ABG O2 Capacity VBG pH VBG pCO2 VBG HCO3 VBG Total CO2 VBG O2 Sat (Calc) VBG Base Excess VBG Potassium Hgb O2 Saturation Sodium 148 Chloride 112 H Glucose Lactate FiO2 Potassium 3.6 Carbon Dioxide 31 Anion Gap 9 L BUN 11 Creatinine 0.4 L Est GFR ( Amer) > 60 Est GFR (Non-Af Amer) > 60 POC Glucose (mg/dL) Random Glucose 108 Calcium 8.0 L Phosphorus 3.6 Magnesium 1.6 L Total Bilirubin 1.0 AST 16 ALT 27 Alkaline Phosphatase 536 H Total Creatine Kinase < 20 L Total Protein 4.8 L Albumin 2.1 L Globulin 2.7 Albumin/Globulin Ratio 0.8 L Venous Blood Potassium Crossmatch Assessment & Plan - Assessment and Plan (Free Text) Assessment: Patient is a 61 y/o with pmh of stage 4 colon ca metastatic to the bone, cauda equina s/p chemo with folfox 6, htn whom initially presented on 10/09 with persistent diarrhea, and was found to have 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 Patient had episode where she was twitching and staring questionable for seizure. CT head on 11/27 with encephalomalacia, some hypodensity in the occipital region , which were there before compared to CT of the head from 10/11/16. EEG with complete slowness. Please see EMR for complete dictation. Impression: Questionable partial 2nd to sepsis with multiple organ dysfunction likely lowering the seizure threshold. Plan: - Recommend MRI of the brain to evaluate for cva. - Monitor electrolytes and correct accordingly. - Avoid over use of opioid such as Dilaudid - Avoid sedatives. Can lower the seizure threshold especially on patient with sepsis. - Continue with comfort - C/w Palliative care. - Continue with keppra 500 mg bid, will d/c valproic. - Thank you for consulting Dr Moya. Patient seen, examined, discussed with Dr Moya. - Date & Time Date: 11/28/16 Time: 09:15 <Ravi Moya - Last Filed: 11/28/16 12:26> Meds - Medications Medications: Current Medications Acetaminophen (Tylenol 650 Mg Supp) 650 mg RC Q4H PRN PRN Reason: Fever >100.4 F Last Admin: 11/01/16 21:18 Dose: 650 mg Amlodipine Besylate (Norvasc) 5 mg PO DAILY [facility] Last Admin: 11/28/16 11:58 Dose: Not Given Collagenase (Santyl) 1 gm TOP BID [facility] Last Admin: 11/27/16 17:34 Dose: 1 applic Al Hydrox/Mg Hydrox/Simethicone 30 ml/Diphenhydramine HCl 75 mg/Lidocaine 30 ml 0 ml PO QID [facility] Last Admin: 11/28/16 12:00 Dose: Not Given Diphenhydramine HCl (Benadryl) 50 mg IVP HS PRN PRN Reason: Insomnia Last Admin: 11/27/16 01:00 Dose: 50 mg Ergocalciferol (Drisdol 50,000 Intl Units Cap) 1 cap PO Q7D [facility] Last Admin: 11/19/16 18:04 Dose: Not Given Fentanyl (Duragesic) 1 patch TD Q72H [facility] Last Admin: 11/22/16 14:30 Dose: 1 patch Ferrous Sulfate (Feosol) 324 mg PO TID [facility] Last Admin: 11/28/16 11:56 Dose: Not Given Fluconazole (Diflucan) 200 mg PO DAILY [facility] PRN Reason: Protocol Stop: 12/12/16 10:01 Last Admin: 11/28/16 11:55 Dose: Not Given Furosemide (Lasix) 20 mg IVP Q12 [facility] Last Admin: 11/28/16 11:57 Dose: 20 mg Home Med (Home Med) 1 unit PO Q12H PRN PRN Reason: Inflammation Last Admin: 10/18/16 11:03 Dose: 1 unit Hydralazine HCl (Apresoline) 10 mg IVP Q4H PRN PRN Reason: Systolic Blood Pressure Hydromorphone HCl (Dilaudid) 1 mg IVP Q1H PRN PRN Reason: Pain, severe (8-10) Last Admin: 11/28/16 08:04 Dose: 1 mg Potassium Chloride (Potassium Chloride 20 Meq/100 Ml) 20 meq in 100 mls @ 50 mls/hr IVPB DAILY [facility] Last Admin: 11/28/16 11:59 Dose: 50 mls/hr Potassium Chloride 40 meq/ (Dextrose/Sodium Chloride) 1,020 mls @ 60 mls/hr IV .Q17H [facility] Last Admin: 11/27/16 18:50 Dose: 60 mls/hr Levetiracetam (Keppra 500mg Ivpb) 500 mg in 100 mls @ 400 mls/hr IV Q12 [facility] Last Admin: 11/28/16 11:57 Dose: 400 mls/hr Lisinopril (Zestril) 10 mg PO DAILY [facility] Last Admin: 11/28/16 12:00 Dose: Not Given Magnesium Oxide (Mag-Ox) 400 mg PO BID [facility] Last Admin: 11/28/16 11:58 Dose: Not Given Multi-Ingredient Ointment (Hydrophor Oint) 0 gm TOP Q6H PRN PRN Reason: Dry lip Multivitamins (Thera Tab) 1 tab PO 0800 [facility] Last Admin: 11/28/16 12:00 Dose: Not Given Ondansetron HCl (Zofran Inj) 4 mg IVP Q4H PRN PRN Reason: Nausea/Vomiting Last Admin: 11/24/16 00:05 Dose: 4 mg Petrolatum (Desitin Maximum Strength Topical 40% Oint) 1 gm TOP Q4H PRN PRN Reason: Rash Last Admin: 10/23/16 22:39 Dose: 1 applic Propranolol HCl (Inderal La) 120 mg PO DAILY [facility] Last Admin: 11/28/16 11:56 Dose: Not Given Sucralfate (Carafate Oral Susp) 1 gm PO BID [facility] Last Admin: 11/28/16 11:54 Dose: Not Given Results - Vital Signs Recent Vital Signs: Last Vital Signs Temp 98.2 F 11/28/16 08:00 Pulse 77 11/28/16 08:00 Resp 14 11/28/16 08:00 BP 149/82 11/28/16 11:57 Pulse Ox 100 11/28/16 08:00 - Labs Result Diagrams: 11/28/16 08:01 11/28/16 08:01 Labs: Laboratory Results - last 24 hr 11/27/16 11/27/16 11/27/16 19:20 19:30 19:40 WBC 11.5 H RBC 4.82 Hgb 15.1 Hct 45.4 MCV 94.2 MCH 31.3 MCHC 33.3 RDW 17.9 H Plt Count 119 L MPV 11.8 H Gran % 87.5 H Lymph % (Auto) 7.2 L [place] % (Auto) 5.1 Eos % (Auto) 0.2 L Baso % (Auto) 0.0 Gran # 10.10 H Lymph # 0.8 L [place] # 0.6 Eos # 0.0 Baso # 0.00 PT INR APTT pCO2 38 pO2 105.0 H HCO3 24.1 ABG pH 7.41 ABG Total CO2 25.3 ABG O2 Saturation 98.8 H ABG O2 Content 19.2 ABG Base Excess -0.3 ABG Hemoglobin 14.1 ABG Carboxyhemoglobin 1.6 H POC ABG HHb (Measured) 1.2 ABG Methemoglobin 0.9 ABG O2 Capacity 19.4 VBG pH VBG pCO2 VBG HCO3 VBG Total CO2 VBG O2 Sat (Calc) VBG Base Excess VBG Potassium Hgb O2 Saturation 96.2 Sodium Chloride Glucose Lactate FiO2 28.0 Potassium Carbon Dioxide Anion Gap BUN Creatinine Est GFR ( Amer) Est GFR (Non-Af Amer) POC Glucose (mg/dL) 125 H Random Glucose Calcium Phosphorus Magnesium Total Bilirubin AST ALT Alkaline Phosphatase Total Creatine Kinase Total Protein Albumin Globulin Albumin/Globulin Ratio Venous Blood Potassium 11/27/16 11/27/16 11/27/16 19:40 19:40 19:40 WBC RBC Hgb Hct MCV MCH MCHC RDW Plt Count MPV Gran % Lymph % (Auto) [place] % (Auto) Eos % (Auto) Baso % (Auto) Gran # Lymph # [place] # Eos # Baso # PT 12.4 H INR 1.15 H APTT 30.1 pCO2 pO2 98 H HCO3 ABG pH ABG Total CO2 ABG O2 Saturation ABG O2 Content ABG Base Excess ABG Hemoglobin ABG Carboxyhemoglobin POC ABG HHb (Measured) ABG Methemoglobin ABG O2 Capacity VBG pH 7.44 H VBG pCO2 43.0 VBG HCO3 29.2 H VBG Total CO2 30.5 H VBG O2 Sat (Calc) 98.6 H VBG Base Excess 4.4 H VBG Potassium 3.8 Hgb O2 Saturation Sodium 146.0 145 Chloride 112.0 H 111 H Glucose 118 H Lactate 2.7 H FiO2 21.0 Potassium 3.7 Carbon Dioxide 28 Anion Gap 10 BUN 9 Creatinine 0.3 L Est GFR ( Amer) > 60 Est GFR (Non-Af Amer) > 60 POC Glucose (mg/dL) Random Glucose 111 H Calcium 7.9 L Phosphorus 3.2 Magnesium 1.8 Total Bilirubin 1.0 AST 15 ALT 24 Alkaline Phosphatase 402 H Total Creatine Kinase Total Protein 4.7 L Albumin 2.1 L Globulin 2.6 Albumin/Globulin Ratio 0.8 L Venous Blood Potassium 3.8 11/28/16 11/28/16 11/28/16 08:01 08:01 08:01 WBC 15.0 H D RBC 5.07 Hgb 15.4 Hct 47.0 MCV 92.7 MCH 30.4 MCHC 32.8 RDW 17.1 H Plt Count 108 L MPV 11.7 H Gran % 88.6 H Lymph % (Auto) 5.9 L [place] % (Auto) 5.3 Eos % (Auto) 0.1 L Baso % (Auto) 0.1 Gran # 13.30 H Lymph # 0.9 L [place] # 0.8 H Eos # 0.0 Baso # 0.01 PT 12.1 H INR 1.12 H APTT 28.5 pCO2 pO2 HCO3 ABG pH ABG Total CO2 ABG O2 Saturation ABG O2 Content ABG Base Excess ABG Hemoglobin ABG Carboxyhemoglobin POC ABG HHb (Measured) ABG Methemoglobin ABG O2 Capacity VBG pH VBG pCO2 VBG HCO3 VBG Total CO2 VBG O2 Sat (Calc) VBG Base Excess VBG Potassium Hgb O2 Saturation Sodium 148 Chloride 112 H Glucose Lactate FiO2 Potassium 3.6 Carbon Dioxide 31 Anion Gap 9 L BUN 11 Creatinine 0.4 L Est GFR ( Amer) > 60 Est GFR (Non-Af Amer) > 60 POC Glucose (mg/dL) Random Glucose 108 Calcium 8.0 L Phosphorus 3.6 Magnesium 1.6 L Total Bilirubin 1.0 AST 16 ALT 27 Alkaline Phosphatase 536 H Total Creatine Kinase < 20 L Total Protein 4.8 L Albumin 2.1 L Globulin 2.7 Albumin/Globulin Ratio 0.8 L Venous Blood Potassium Attending/Attestation - Attestation I have personally seen and examined this patient.: Yes I have fully participated in the care of the patient.: Yes I have reviewed all pertinent clinical information: Yes
--- NOTE | 2016-11-28 10:19 | CT ---
PROCEDURE: CT HEAD WITHOUT CONTRAST. 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 Radiation dose: Total exam DLP = 757 mGy-cm. This CT exam was performed using one or more of the following dose reduction techniques: Automated exposure control, adjustment of the mA and/or kV according to patient size, and/or use of iterative reconstruction technique. FINDINGS: HEMORRHAGE: No intracranial hemorrhage. BRAIN: No mass effect or edema. Hypodense areas are seen in the posterior parietal occipital lobes seen on image 31 and 27 of series 2. There is also a new hypodense area in the right cerebellar hemisphere image 14. These findings were not present on the prior study. Findings are suspicious for acute infarcts. MRI correlation may be indicated. VENTRICLES: Unremarkable. No hydrocephalus. CALVARIUM: Unremarkable. PARANASAL SINUSES: Unremarkable as visualized. No significant inflammatory changes. MASTOID AIR CELLS: Unremarkable as visualized. No inflammatory changes. OTHER FINDINGS: The report concurs with the preliminary [facility] report IMPRESSION: New areas of hypodensity in the occipital lobes bilaterally and the right cerebellar hemisphere suspicious for acute infarcts.
--- NOTE | 2016-11-28 11:27 | CT ---
PROCEDURE: CT Chest, Abdomen and Pelvis without intravenous contrast HISTORY: altered mental status COMPARISON: 11/22/2016 TECHNIQUE: Radiation dose: Total exam DLP = 735 mGy-cm. This CT exam was performed using one or more of the following dose reduction techniques: Automated exposure control, adjustment of the mA and/or kV according to patient size, and/or use of iterative reconstruction technique. FINDINGS: CT CHEST WITHOUT CONTRAST: LUNGS: Right upper lobe nodules. Linear scarring or infiltrates at the left lung base. MEDIASTINUM: Unremarkable. Normal caliber aorta and pulmonary arterial trunk. Normal size heart. LYMPH NODES: There is a 16 mm lymph node in the AP window. PLEURA: Unremarkable. No pneumothorax. No pleural fluid. BONES: Unremarkable. OTHER FINDINGS: None. CT ABDOMEN AND PELVIS: LIVER: There is a 2 cm cyst in the liver. There are no other lesions GALLBLADDER AND BILE DUCTS: Dense sludge in the gallbladder PANCREAS: Unremarkable. No gross lesion or ductal dilatation. SPLEEN: Unremarkable. ADRENALS: Unremarkable. No mass. KIDNEYS AND URETERS: Unremarkable. No hydronephrosis. No solid mass. VASCULATURE: Unremarkable. No aortic aneurysm. BOWEL: Unremarkable. No obstruction. No gross mural thickening. Left lower quadrant ostomy. Midline surgical clips. APPENDIX: Normal appendix. PERITONEUM: There is minimal persistent free air anterior to the liver image 103. This is decreased from the previous exam LYMPH NODES: Unremarkable. No enlarged lymph nodes. BLADDER: There is a Salazar catheter in the bladder. REPRODUCTIVE: Unremarkable. BONES: Lytic lesion in the right sacrum OTHER FINDINGS: Subcutaneous edema is seen around the abdomen and pelvis The report concurs with the preliminary [facility] report IMPRESSION: Right upper lobe nodules. Linear infiltrate left lower lobe. Lytic lesion in the right side of the sacrum. Decreasing free air beneath the right hemidiaphragm
[2016-11-28] MEDS: Valproate 250 MG in Sodium Chloride 0.9% 100 ML IVPB SCH (11:50)
[2016-11-28] MEDS: Sucralfate 1 gm/10 ml Oral Susp UD PO SCH ×2 (11:54→17:58)
[2016-11-28] MEDS: Propranolol 60 mg ER Cap PO SCH (11:56)
[2016-11-28] MEDS: levETIRAcetam 500mg IVPB 500 MG/100 ML BAG IV SCH ×2 (11:57→21:27)
[2016-11-28] MEDS: Magnesium Oxide 400 mg Tab UD PO SCH ×2 (11:58→17:59)
[2016-11-28] MEDS: Multivitamin Therapeutic Tab PO SCH (12:00)
[2016-11-28] MEDS: Aluminum Hydroxide/Magnesium 30 ML, DiphenhydrAMINE 75 MG, Lidocaine 2% Viscous 30 ML PO SCH ×3 (12:00→21:29)
--- NOTE | 2016-11-28 12:41 | PN ---
DATE: 10/09/2016 SUBJECTIVE: Seen and examined at the bedside this morning. The patient had rapid response yesterday. The patient was noted to have seizures. She had a CT scan of the head which showed some right cerebellar and bilateral occipital hypodensity. She has also had a CT scan of the chest and head. The Ct scan chest,abdomen,pelvis showed some hypodense thyroid nodules and left pulmonary nodules, ?metastatic disease versus infection or inflammation. The patient, this morning, is disoriented but awake. No further reported seizure activities last night. PHYSICAL EXAMINATION VITAL SIGNS: Temperature is 98.2, blood pressure is 132/82, pulse 77, respirations 14 and 100 on room air. HEENT: Sclerae are anicteric. NECK: Supple. CARDIAC: S1 and S2. LUNGS: Lung sounds with decreased breath sounds at the basis, but good air entry. ABDOMEN: Bowel sounds soft. Colostomy is draining dark stool, appears more dark brown. Incision, sutures where in place. EXTREMITIES: Lower extremities, positive LORNEA. NEUROLOGIC: The patient is awake, but disoriented, unable to answer questions appropriately. LABORATORY DATA: WBC 15.0, her H and H is 16.4 and 47.0, platelets is 108. PT 12.1, INR is 1.12, PTT 28.5. Sodium 148, potassium 3.6, BUN is 11, creatinine is 0.4, magnesium is 1.6, total bilirubin is 1.0, AST 16, ALT is 27 and alkaline phosphatase is 536. ASSESSMENT: This is a 61-year-old female with metastatic colon cancer stage IV, status post exploratory laparotomy with lysis of adhesions and repair of small bowel enterotomy and partial sigmoidectomy with end colostomy; gastrointestinal bleed, status post push enteroscopy, no bleeding found; anemia with multiple blood transfusions now with seizures and hypodense and new onset seizures, and hypodensity noted in the right cerebellum and bilateral occipital. PLAN: The patient is awaiting evaluation with neurology. Also, the patient is with fungemia on IV antibiotics. She is getting IV fluids. Continue IV fluids with potassium. The patient started on valproate sodium drip. Planned colonoscopy is canceled secondary to last night events. She was also started on Keppra. Monitor H and H and electrolytes. We will continue to follow closely. The patient was seen and case discussed with Dr. Null. RASHEED Wong [facility] # [id number] RODRIGO
--- NOTE | 2016-11-28 13:48 | EEG ---
ELECTROENCEPHALOGRAM CONDITION OF THE RECORDING: Drowsy. DIAGNOSIS: Seizure. MEDICATIONS: Reviewed by the nurse per reconciliation sheet. INTERPRETATION OF RECORDING: This is a 16-channel EEG recording. The background activities of this patient is close to 6-7 cycles per second. There was limited amount of beta activity with 16-20 cycles per second recorded. There was increased amount of theta activity 5-7 cycles per second recorded. Drowsiness was characterized by mixed beta and theta activities *------* slowing. Photic stimulation showed no change in the tracing. No paroxysmal activity is noted in this recording. CONCLUSION: This is an abnormal EEG due to presence of diffuse slowing throughout the recording consistent with bilateral vestibular dysfunction. No evidence of any epileptiform activity. Ravi Moya MD
--- NOTE | 2016-11-28 15:26 | CP.PCM.PN ---
<NAMOMAIRA - Last Filed: 11/28/16 15:49> Subjective - Date & Time of Evaluation Date of Evaluation: 11/28/16 Time of Evaluation: 08:00 - Subjective Subjective: ICU PGY1 Progress Note: Pt seen and examined at bedside. Pt admitted to ICU overnight for concern of status epilepticus and airway protection, in the setting of new onset seizures. Objective - Vital Signs/Intake and Output Vital Signs (last 24 hours): Temp Pulse Resp BP Pulse Ox 98.2 F 83 14 132/84 98 11/28/16 08:00 11/28/16 13:00 11/28/16 13:00 11/28/16 13:00 11/28/16 13:00 Intake and Output: 11/28/16 11/28/16 06:59 18:59 Intake Total 820 Output Total 1775 Balance -955 - Medications Medications: Current Medications Acetaminophen (Tylenol 650 Mg Supp) 650 mg RC Q4H PRN PRN Reason: Fever >100.4 F Last Admin: 11/01/16 21:18 Dose: 650 mg Amlodipine Besylate (Norvasc) 5 mg PO DAILY [facility] Last Admin: 11/28/16 11:58 Dose: Not Given Collagenase (Santyl) 1 gm TOP BID [facility] Last Admin: 11/27/16 17:34 Dose: 1 applic Al Hydrox/Mg Hydrox/Simethicone 30 ml/Diphenhydramine HCl 75 mg/Lidocaine 30 ml 0 ml PO QID [facility] Last Admin: 11/28/16 12:00 Dose: Not Given Diphenhydramine HCl (Benadryl) 50 mg IVP HS PRN PRN Reason: Insomnia Last Admin: 11/27/16 01:00 Dose: 50 mg Ergocalciferol (Drisdol 50,000 Intl Units Cap) 1 cap PO Q7D [facility] Last Admin: 11/19/16 18:04 Dose: Not Given Fentanyl (Duragesic) 1 patch TD Q72H [facility] Last Admin: 11/22/16 14:30 Dose: 1 patch Ferrous Sulfate (Feosol) 324 mg PO TID [facility] Last Admin: 11/28/16 13:22 Dose: Not Given Fluconazole (Diflucan) 200 mg PO DAILY RODRÍGUEZ PRN Reason: Protocol Stop: 12/12/16 10:01 Last Admin: 11/28/16 11:55 Dose: Not Given Furosemide (Lasix) 20 mg IVP Q12 [facility] Last Admin: 11/28/16 11:57 Dose: 20 mg Home Med (Home Med) 1 unit PO Q12H PRN PRN Reason: Inflammation Last Admin: 10/18/16 11:03 Dose: 1 unit Hydralazine HCl (Apresoline) 10 mg IVP Q4H PRN PRN Reason: Systolic Blood Pressure Hydromorphone HCl (Dilaudid) 1 mg IVP Q1H PRN PRN Reason: Pain, severe (8-10) Last Admin: 11/28/16 13:35 Dose: 1 mg Potassium Chloride (Potassium Chloride 20 Meq/100 Ml) 20 meq in 100 mls @ 50 mls/hr IVPB DAILY [facility] Last Admin: 11/28/16 11:59 Dose: 50 mls/hr Potassium Chloride 40 meq/ (Dextrose/Sodium Chloride) 1,020 mls @ 60 mls/hr IV .Q17H [facility] Last Admin: 11/27/16 18:50 Dose: 60 mls/hr Levetiracetam (Keppra 500mg Ivpb) 500 mg in 100 mls @ 400 mls/hr IV Q12 [facility] Last Admin: 11/28/16 11:57 Dose: 400 mls/hr Lisinopril (Zestril) 10 mg PO DAILY [facility] Last Admin: 11/28/16 12:00 Dose: Not Given Magnesium Oxide (Mag-Ox) 400 mg PO BID [facility] Last Admin: 11/28/16 11:58 Dose: Not Given Multi-Ingredient Ointment (Hydrophor Oint) 0 gm TOP Q6H PRN PRN Reason: Dry lip Multivitamins (Thera Tab) 1 tab PO 0800 [facility] Last Admin: 11/28/16 12:00 Dose: Not Given Ondansetron HCl (Zofran Inj) 4 mg IVP Q4H PRN PRN Reason: Nausea/Vomiting Last Admin: 11/24/16 00:05 Dose: 4 mg Petrolatum (Desitin Maximum Strength Topical 40% Oint) 1 gm TOP Q4H PRN PRN Reason: Rash Last Admin: 10/23/16 22:39 Dose: 1 applic Propranolol HCl (Inderal La) 120 mg PO DAILY [facility] Last Admin: 07/19/17 11:56 Dose: Not Given Sucralfate (Carafate Oral Susp) 1 gm PO BID [facility]OD[facility]ÍGUEZ Last Admin: 11/28/16 11:54 Dose: Not Given - Labs Labs: 11/28/16 08:01 11/28/16 08:01 PT 12.1 Seconds (9.9-11.8) H 11/28/16 08:01 INR 1.12 (0.93-1.08) H 11/28/16 08:01 APTT 28.5 Seconds (23.7-30.8) 11/28/16 08:01 - Constitutional Appears: No Acute Distress - Head Exam Head Exam: ATRAUMATIC, NORMOCEPHALIC - Eye Exam Eye Exam: PERRL - ENT Exam ENT Exam: Mucous Membranes Moist - Respiratory Exam Respiratory Exam: Decreased Breath Sounds - Cardiovascular Exam Cardiovascular Exam: RRR, +S1, +S2. absent: Gallop, Rubs, Murmur - GI/Abdominal Exam GI & Abdominal Exam: absent: Rigid Additional comments: L colostomy, draining brown-green stool. Staple intact, clean, dry on abdominal midline. Mildly TTP throughout. - Extremities Exam Extremities Exam: Pedal Edema. absent: Calf Tenderness - Neurological Exam Neurological Exam: Awake Additional comments: Pt received dilaudid dose (around the clock) prior to exam. Pt lethargic, waxes and wanes, oriented to self. Move upper extremities spontaneously, does not follow commands. GCS 13 ([id number]) - Skin Skin Exam: Dry, Intact, Warm Assessment and Plan - Assessment and Plan (Free Text) Assessment: 61 yo F with PMHx of metastatic colon cancer and cauda equina syndrome who was recently treated for neutropenic sepsis, fungemia, bacteremia, and lower GI bleed with Max's procedure, admitted to ICU for concern of status epilepticus and airway protection, in the setting of new onset seizures. Pt loaded with Keppra, c/w Keppra per Neuro. EEG shows diffuse slowing, but no seizure activity. Head CT revealed multiple hypodensities concerning for possible CVA as well as possible metatases. Will obtain head MRI w and w/o contrast to r/o mets. Plan: Neuro -Pt awake, oriented to self, waxes and wanes, on dilaudid 1mg q1h prn for pain. GCS 13 today. -C/w neuro check Q4H -Neuro consult appreciated, partial seizure, c/w Keppra 500 bid, will discontinue valproic acid. - will avoid overuse of opioids as can decrease threshold of seizures. Reconsider current pain regimen. -Ativan was used to break seizure -CT scan showed multiple hypodense lesions in the brain suspicious for metastatic disease vs CVA - EEG shows diffuse slowing, but no seizure activity. - Obtain head MRI to r/o metstatic dz. Cardio -Maintain MAP >65 -Hemodynamically stable Pulm -Maintain O2 sat >90% GI -PPx GI Cocktail -H/o radiation enteritis s/p max's procedure Nephro -Maintain euvolemia -Replenish electrolyes as needed Endo -Maintain euglycemia Heme/ID -Monitor H/H -afebrile, mild leukocytosis 11.5->15, likely post seizure. will monitor. -Transfuse PRBC prn -Stage 4 colon cancer s/p Avastin -ID following. s/p mycamine and daptomycin for fungemia and bacteremia -Maintain normothermia Pt was seen and discussed with PGY2 and attending, Dr. Centeno. Omaira Borjas, PGY1 <Taryn MARCELINO,[facility] - Last Filed: 11/28/16 16:21> Objective - Vital Signs/Intake and Output Vital Signs (last 24 hours): Temp Pulse Resp BP Pulse Ox 97.8 F 83 12 140/85 99 11/28/16 15:58 11/28/16 15:00 11/28/16 15:00 11/28/16 15:00 11/28/16 15:00 Intake and Output: 11/28/16 11/28/16 06:59 18:59 Intake Total 820 Output Total 1775 Balance -955 - Medications Medications: Current Medications Acetaminophen (Tylenol 650 Mg Supp) 650 mg RC Q4H PRN PRN Reason: Fever >100.4 F Last Admin: 11/01/16 21:18 Dose: 650 mg Amlodipine Besylate (Norvasc) 5 mg PO DAILY [facility] Last Admin: 11/28/16 11:58 Dose: Not Given Collagenase (Santyl) 1 gm TOP BID [facility] Last Admin: 11/27/16 17:34 Dose: 1 applic Al Hydrox/Mg Hydrox/Simethicone 30 ml/Diphenhydramine HCl 75 mg/Lidocaine 30 ml 0 ml PO QID [facility] Last Admin: 11/28/16 12:00 Dose: Not Given Diphenhydramine HCl (Benadryl) 50 mg IVP HS PRN PRN Reason: Insomnia Last Admin: 11/27/16 01:00 Dose: 50 mg Ergocalciferol (Drisdol 50,000 Intl Units Cap) 1 cap PO Q7D [facility] Last Admin: 11/19/16 18:04 Dose: Not Given Fentanyl (Duragesic) 1 patch TD Q72H [facility] Last Admin: 11/22/16 14:30 Dose: 1 patch Ferrous Sulfate (Feosol) 324 mg PO TID [facility] Last Admin: 11/28/16 13:22 Dose: Not Given Fluconazole (Diflucan) 200 mg PO DAILY [facility] PRN Reason: Protocol Stop: 12/12/16 10:01 Last Admin: 11/28/16 11:55 Dose: Not Given Furosemide (Lasix) 20 mg IVP Q12 [facility] Last Admin: 11/28/16 11:57 Dose: 20 mg Home Med (Home Med) 1 unit PO Q12H PRN PRN Reason: Inflammation Last Admin: 10/18/16 11:03 Dose: 1 unit Hydralazine HCl (Apresoline) 10 mg IVP Q4H PRN PRN Reason: Systolic Blood Pressure Hydromorphone HCl (Dilaudid) 1 mg IVP Q1H PRN PRN Reason: Pain, severe (8-10) Last Admin: 11/28/16 13:35 Dose: 1 mg Potassium Chloride (Potassium Chloride 20 Meq/100 Ml) 20 meq in 100 mls @ 50 mls/hr IVPB DAILY [facility] Last Admin: 11/28/16 11:59 Dose: 50 mls/hr Potassium Chloride 40 meq/ (Dextrose/Sodium Chloride) 1,020 mls @ 60 mls/hr IV .Q17H [facility] Last Admin: 11/27/16 18:50 Dose: 60 mls/hr Levetiracetam (Keppra 500mg Ivpb) 500 mg in 100 mls @ 400 mls/hr IV Q12 [facility] Last Admin: 11/28/16 11:57 Dose: 400 mls/hr Lisinopril (Zestril) 10 mg PO DAILY [facility] Last Admin: 11/28/16 12:00 Dose: Not Given Magnesium Oxide (Mag-Ox) 400 mg PO BID [facility] Last Admin: 11/28/16 11:58 Dose: Not Given Multi-Ingredient Ointment (Hydrophor Oint) 0 gm TOP Q6H PRN PRN Reason: Dry lip Multivitamins (Thera Tab) 1 tab PO 0800 [facility] Last Admin: 11/28/16 12:00 Dose: Not Given Ondansetron HCl (Zofran Inj) 4 mg IVP Q4H PRN PRN Reason: Nausea/Vomiting Last Admin: 11/24/16 00:05 Dose: 4 mg Petrolatum (Desitin Maximum Strength Topical 40% Oint) 1 gm TOP Q4H PRN PRN Reason: Rash Last Admin: 10/23/16 22:39 Dose: 1 applic Propranolol HCl (Inderal La) 120 mg PO DAILY [facility] Last Admin: 11/28/16 11:56 Dose: Not Given Sucralfate (Carafate Oral Susp) 1 gm PO BID [facility] Last Admin: 11/28/16 11:54 Dose: Not Given - Labs Labs: 11/28/16 08:01 11/28/16 08:01 PT 12.1 Seconds (9.9-11.8) H 11/28/16 08:01 INR 1.12 (0.93-1.08) H 11/28/16 08:01 APTT 28.5 Seconds (23.7-30.8) 11/28/16 08:01 Attending/Attestation - Attestation I have personally seen and examined this patient.: Yes I have fully participated in the care of the patient.: Yes I have reviewed all pertinent clinical information, including history, physical exam and plan: Yes Notes (Text): 11/28/16 16:18 61 y/o F w. End stage COLON CA presented to the ICU with new onset of seizures Received Ativan prn, Keppra and Valproic loading. No further seizures. EEG ordered . No current changes in mental status , back to baseline. MRI brain needed to evaluate for further brain lesions. Poor new baseline post surgery. Poor prognosis in general. Palliative care and ONC following along. cc time 45 min
--- NOTE | 2016-11-28 16:23 | PN ---
DATE: 11/28/2016 REASON FOR CONSULTATION AND FOLLOWUP: Tachycardia status post rapid response, moved to ICU, possible CVA, possible metastatic brain lesion. BRIEF CLINICAL HISTORY: This is a 61-year-old female with past medical history significant for metastatic colon, cauda equina syndrome, status post exploratory laparotomy, colostomy, and extensive lysis for adhesions done. The patient was in the floor. Yesterday had a rapid response because of altered mental status. CAT scan shows hypodense area. He has had history of possible metastasis versus CVA. The patient is currently in ICU 128, bed 4. Denies any chest pain or shortness of breath, not fully oriented, awake, and alert, just now got morphine. Denies any chest pain. PHYSICAL EXAMINATION: As follows: VITAL SIGNS: Temperature afebrile, heart rate 77, and blood pressure 132/82. HEENT: PERRLA, intact. NECK: Supple. No carotid bruit or thyromegaly. CARDIOPULMONARY: Heart, S1 and S2, regular. LUNGS: Clear to auscultation. ABDOMEN: Soft. EXTREMITIES: Clubbing and cyanosis negative. LABORATORY DATA: Blood workup as follows: WBC 15, hemoglobin 15, hematocrit 47 and platelet count 108. Chemistry showed sodium 140, potassium 3.5, chloride 101, carbon dioxide 31, anion gap of 9, BUN 11, and creatinine 0.4. IMPRESSION: A 61-year-old female with past medical history significant for metastatic colon cancer who recently had colostomy, extensive lysis of adhesions, and repair of small bowel enterostomy and partial sigmoidectomy and end colostomy was done. Postoperative course was complicated by multiple blood transfusions and subsequently push enteroscopy was done. The patient required multiple blood transfusions. Yesterday, the patient had altered mental status, rapid response was called and the patient moved to ICU. CAT scan showed multiple hypodense areas suggestive of CVA versus metastatic disease. The patient also had seizure episodes and moved to ICU. Currently, got the morphine, under effect of sedation. Denies any chest pain on waking up, but not fully oriented; anemia, hypertension, tachycardia, resolved, protein-calorie malnutrition. Continue p.r.n. hydralazine and continue propranolol withhold parameter. We will follow with you. Supplement electrolytes as needed. Overall, the patient's condition is critical. Prognosis is guarded. Followup with Neurology. We will supplement electrolytes as needed. We will supplement magnesium and potassium. Sherrell Busby MD
[2016-11-28] MEDS: Potassium Chloride 40 MEQ in Dextrose 5%/0.9% NS 1,000 ML IV SCH (16:25)
[2016-11-28] MEDS: Collagenase 250 Units/gm Ointment(30 gm) TOP SCH (17:59)
[2016-11-29] MEDS: HYDROmorphone 1 mg/ml ISec IVP PRN ×9 (01:45→22:15)
--- NOTE | 2016-11-29 03:38 | PN ---
DATE: SUBJECTIVE: The patient was transferred to the ICU last night after having seizures and having had a prolonged postictal state. She is currently asleep in the ICU. She has had a CT scan of her head which showed possible acute infarcts, but no evidence of metastatic disease. She had an EEG which was abnormal, but did not show any seizure activity. An MRI was attempted, but was not able to be done. MEDICATIONS: Medication list reviewed. The patient is currently on hydralazine, Benadryl, Carafate, Diflucan, Dilaudid p.r.n., vitamin D, Feosol, triamcinolone dental paste, Hydrophor, Inderal LA, Keppra, Lasix, magnesium oxide, Norvasc, potassium with IV fluids, Santyl, vitamins, Tylenol, Zestril, and Zofran p.r.n. OBJECTIVE: INTAKE/OUTPUT: Intake 940, output 2575. VITAL SIGNS: Blood pressure 132/84, temperature 98.2, respiratory rate of 14 with a pulse of 83. HEENT EXAM: Normocephalic, atraumatic. Conjunctivae are pink. Sclerae are nonicteric. NECK: Supple. No neck vein distention. CHEST: Clear to auscultation and percussion. No rales. No rhonchi. No wheezing. CARDIOVASCULAR: S1 and S2 normal. No murmurs, rubs, or gallops noted. ABDOMEN: Positive colostomy. Soft, bowel sounds normal. No rebound and no guarding. EXTREMITIES: Show no lower extremity edema, cyanosis or clubbing. LABORATORY DATA AND IMAGING: CBC today; white blood cell count 15.0, hemoglobin 15.4, and platelet count is 108,000. Chemistries; normal electrolytes. BUN 11 and creatinine 0.4. Calcium 8.0, magnesium level 1.6 with a phosphorous of 3.6. Albumin was 2.1. Microbiology; blood cultures, last set have been negative. Previously, a catheter tip grew out Susy albicans. Urine cultures are positive for Gram negative rohan. ASSESSMENT: 1. Status post acute renal failure, BUN and creatinine are now back to baseline levels. 2. Stage IV colon cancer with mets, status post palliative colostomy. 3. 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 4. Status post seizure activity last night with a prolonged postictal state. The patient is being monitored in the ICU. Head CT is positive for possible acute infarcts. No evidence of metastatic disease. EEG showed abnormal diffuse activity, but no seizure activity. MRI was attempted, but not done. 5. Mild hypomagnesemia. The patient should continue magnesium supplements, especially in light of her seizure activity. The patient did receive a Mag Sudheer today. PLAN: 1. We will continue to monitor the patient along with you in the ICU. 2. Continue to make sure how electrolytes are made within reasonable and acceptable limits. 3. Continue low-dose Lasix therapy to prevent lower extremity edema. 4. Further definitive management for her stage IV colon cancer with mets as per Dr. Hendricks. 5. Discussed with nursing staff in detail. Kyle Brooks MD
[2016-11-29 07:41] LABS: ALB/GLOB RATIO 0.8 (1.1-1.8); ALT/SGPT 25 U/L (7-56); AST/SGOT 11 U/L (15-39); BLOOD UREA NITROGEN 13 mg/dL (7-21); CALCIUM 7.8 mg/dL (8.4-10.5); GFR AFRICAN-AMERICAN > 60; GFR NON-AFRICAN AMERICAN > 60; MAGNESIUM 1.8 mg/dL (1.7-2.2)
[2016-11-29 07:46] LABS: INR 1.13 (0.93-1.08); PARTIAL THROMBOPLASTIN TIME 24.7 Seconds (23.7-30.8); PROTHROMBIN TIME 12.2 Seconds (9.9-11.8)
--- NOTE | 2016-11-29 08:15 | CP.PCM.PN ---
<Dereje London - Last Filed: 11/29/16 15:55> Subjective - Date & Time of Evaluation Date of Evaluation: 11/29/16 Time of Evaluation: 08:11 - Subjective Subjective: General Surgery Dr. Mccracken Patient seen and examined at bedside this morning. No acute events over night. Patient is able to respond to verbal stimuli but does not respond with any recognizable speech, just noises. Objective - Vital Signs/Intake and Output Vital Signs (last 24 hours): Temp Pulse Resp BP Pulse Ox 97.7 F 72 21 170/72 H 98 11/29/16 04:00 11/29/16 07:29 11/29/16 07:00 11/29/16 07:00 11/29/16 07:00 Intake and Output: 11/29/16 11/29/16 06:59 18:59 Intake Total 820 Output Total 1050 Balance -230 - Medications Medications: Current Medications Acetaminophen (Tylenol 650 Mg Supp) 650 mg RC Q4H PRN PRN Reason: Fever >100.4 F Last Admin: 11/01/16 21:18 Dose: 650 mg Amlodipine Besylate (Norvasc) 5 mg PO DAILY [facility] Last Admin: 11/28/16 11:58 Dose: Not Given Collagenase (Santyl) 1 gm TOP BID [facility] Last Admin: 11/28/16 17:59 Dose: 1 applic Al Hydrox/Mg Hydrox/Simethicone 30 ml/Diphenhydramine HCl 75 mg/Lidocaine 30 ml 0 ml PO QID [facility] Last Admin: 11/28/16 21:29 Dose: Not Given Diphenhydramine HCl (Benadryl) 50 mg IVP HS PRN PRN Reason: Insomnia Last Admin: 11/27/16 01:00 Dose: 50 mg Ergocalciferol (Drisdol 50,000 Intl Units Cap) 1 cap PO Q7D [facility] Last Admin: 11/19/16 18:04 Dose: Not Given Fentanyl (Duragesic) 1 patch TD Q72H [facility] Last Admin: 11/22/16 14:30 Dose: 1 patch Ferrous Sulfate (Feosol) 324 mg PO TID [facility] Last Admin: 11/28/16 17:59 Dose: Not Given Fluconazole (Diflucan) 200 mg PO DAILY [facility] PRN Reason: Protocol Stop: 12/12/16 10:01 Last Admin: 11/28/16 11:55 Dose: Not Given Furosemide (Lasix) 20 mg IVP Q12 [facility] Last Admin: 11/28/16 21:27 Dose: 20 mg Home Med (Home Med) 1 unit PO Q12H PRN PRN Reason: Inflammation Last Admin: 10/18/16 11:03 Dose: 1 unit Hydralazine HCl (Apresoline) 10 mg IVP Q4H PRN PRN Reason: Systolic Blood Pressure Hydromorphone HCl (Dilaudid) 1 mg IVP Q1H PRN PRN Reason: Pain, severe (8-10) Last Admin: 11/29/16 04:56 Dose: 1 mg Potassium Chloride (Potassium Chloride 20 Meq/100 Ml) 20 meq in 100 mls @ 50 mls/hr IVPB DAILY [facility] Last Admin: 11/28/16 11:59 Dose: 50 mls/hr Potassium Chloride 40 meq/ (Dextrose/Sodium Chloride) 1,020 mls @ 60 mls/hr IV .Q17H [facility] Last Admin: 11/28/16 16:25 Dose: 60 mls/hr Levetiracetam (Keppra 500mg Ivpb) 500 mg in 100 mls @ 400 mls/hr IV Q12 [facility] Last Admin: 11/28/16 21:27 Dose: 400 mls/hr Lisinopril (Zestril) 10 mg PO DAILY [facility] Last Admin: 11/28/16 12:00 Dose: Not Given Magnesium Oxide (Mag-Ox) 400 mg PO BID [facility] Last Admin: 11/28/16 17:59 Dose: Not Given Multi-Ingredient Ointment (Hydrophor Oint) 0 gm TOP Q6H PRN PRN Reason: Dry lip Multivitamins (Thera Tab) 1 tab PO 0800 [facility] Last Admin: 11/28/16 12:00 Dose: Not Given Ondansetron HCl (Zofran Inj) 4 mg IVP Q4H PRN PRN Reason: Nausea/Vomiting Last Admin: 11/24/16 00:05 Dose: 4 mg Petrolatum (Desitin Maximum Strength Topical 40% Oint) 1 gm TOP Q4H PRN PRN Reason: Rash Last Admin: 10/23/16 22:39 Dose: 1 applic Propranolol HCl (Inderal La) 120 mg PO DAILY [facility] Last Admin: 11/28/16 11:56 Dose: Not Given Sucralfate (Carafate Oral Susp) 1 gm PO BID [facility] Last Admin: 11/28/16 17:58 Dose: Not Given - Labs Labs: 11/28/16 08:01 11/29/16 07:15 PT 12.1 Seconds (9.9-11.8) H 11/28/16 08:01 INR 1.12 (0.93-1.08) H 11/28/16 08:01 APTT 28.5 Seconds (23.7-30.8) 11/28/16 08:01 - Constitutional Appears: No Acute Distress, Confused - Head Exam Head Exam: ATRAUMATIC, NORMOCEPHALIC - Eye Exam Eye Exam: EOMI - ENT Exam ENT Exam: Mucous Membranes Dry - Respiratory Exam Respiratory Exam: NORMAL BREATHING PATTERN. absent: Accessory Muscle Use, Respiratory Distress - Cardiovascular Exam Cardiovascular Exam: REGULAR RHYTHM - GI/Abdominal Exam GI & Abdominal Exam: Soft. absent: Distended, Firm, Rigid - Neurological Exam Neurological Exam: Altered, Awake. absent: Oriented x3 Additional comments: Spontaneously moves UE and LE. Patient will move head in response to verbal stimuli but patient is unable to form words or any recognizable speech to respond. She only makes noises. - Skin Skin Exam: Dry, Normal Color, Warm Assessment and Plan - Assessment and Plan (Free Text) Assessment: 61 year old F metastatic colon CA s/p Ex-Lap, NATE, Marquita's day 12 and new onset seizures. Plan: Monitor H+H, AM labs pending, transfuse prn Monitor electrolytes, K - 4.1 today MRI recommended per Neuro Pain management Continue Abx for fungemia per ID Periodically re-evaluate family's stance on patient's code status. Currently full code. Will discuss with Dr. Kaykay Reyez Lita PGY1 <Yoan Mccracken - Last Filed: 12/03/16 00:00> Objective - Vital Signs/Intake and Output Vital Signs (last 24 hours): Temp Pulse Resp BP Pulse Ox 97.8 F 101 H 18 170/89 H 100 12/02/16 16:00 12/02/16 16:00 12/02/16 16:00 12/02/16 16:00 12/02/16 16:00 Intake and Output: 12/02/16 12/03/16 18:59 06:59 Intake Total 120 Output Total 450 600 Balance -450 -480 - Medications Medications: Current Medications Acetaminophen (Tylenol 650 Mg Supp) 650 mg RC Q4H PRN PRN Reason: Fever >100.4 F Last Admin: 11/01/16 21:18 Dose: 650 mg Al Hydrox/Mg Hydrox/Simethicone 30 ml/Diphenhydramine HCl 75 mg/Lidocaine 30 ml 0 ml PO QID [facility] Last Admin: 12/02/16 21:01 Dose: Not Given Diphenhydramine HCl (Benadryl) 50 mg IVP HS PRN PRN Reason: Insomnia Last Admin: 11/27/16 01:00 Dose: 50 mg Ergocalciferol (Drisdol 50,000 Intl Units Cap) 1 cap PO Q7D [facility] Last Admin: 11/19/16 18:04 Dose: Not Given Ferrous Sulfate (Feosol) 324 mg PO TID [facility] Last Admin: 12/02/16 18:16 Dose: Not Given Fluconazole (Diflucan) 200 mg PO DAILY [facility] PRN Reason: Protocol Stop: 12/12/16 10:01 Last Admin: 12/02/16 09:44 Dose: Not Given Home Med (Home Med) 1 unit PO Q12H PRN PRN Reason: Inflammation Last Admin: 10/18/16 11:03 Dose: 1 unit Hydralazine HCl (Apresoline) 10 mg IVP Q4H PRN PRN Reason: Systolic Blood Pressure Hydromorphone HCl (Dilaudid) 1 mg IVP Q1H PRN PRN Reason: Pain, moderate (4-7) Last Admin: 12/02/16 21:06 Dose: 1 mg Levetiracetam (Keppra 500mg Ivpb) 500 mg in 100 mls @ 400 mls/hr IV Q12 [facility] Last Admin: 12/02/16 21:06 Dose: 400 mls/hr Potassium Chloride/Dextrose (Potassium Chl 40 Meq In D5w) 1,000 mls @ 60 mls/ hr IV .[id number] [facility] Last Admin: 12/02/16 18:17 Dose: Not Given Magnesium Hydroxide (Milk Of Magnesia) 30 ml PO DAILY PRN PRN Reason: skin irritation Last Admin: 12/02/16 14:09 Dose: 30 ml Magnesium Oxide (Mag-Ox) 400 mg PO BID [facility] Last Admin: 12/02/16 18:16 Dose: Not Given Multi-Ingredient Ointment (Hydrophor Oint) 0 gm TOP Q6H PRN PRN Reason: Dry lip Multivitamins (Thera Tab) 1 tab PO 0800 [facility] Last Admin: 12/02/16 08:10 Dose: Not Given Propranolol HCl (Inderal La) 120 mg PO DAILY [facility] Last Admin: 12/02/16 09:44 Dose: Not Given Sucralfate (Carafate Oral Susp) 1 gm PO BID [facility] Last Admin: 12/02/16 18:16 Dose: Not Given - Labs Labs: 12/02/16 06:00 12/02/16 06:00 PT 12.9 Seconds (9.9-11.8) H 12/02/16 06:00 INR 1.19 (0.93-1.08) H 12/02/16 06:00 APTT 32.9 Seconds (23.7-30.8) H 12/02/16 06:00 Assessment and Plan - Assessment and Plan (Free Text) Plan: Patient was seen and examined by me. I agree with assessment and plan as per resident's note.
[2016-11-29] MEDS: Potassium Chloride 40 MEQ in Dextrose 5%/0.9% NS 1,000 ML IV SCH (08:27)
--- NOTE | 2016-11-29 08:31 | PN ---
DATE OF SERVICE: 11/28/2016 SUBJECTIVE: The patient was seen in the ICU this morning in the ICU 128, bed 1. The patient overall was doing poorly. Her mental status is poor and she is lethargic. She is responsive. However, she is unable to answer appropriately. PHYSICAL EXAMINATION VITAL SIGNS: Temperature is 98, blood pressure is 150/80, respiratory rate of 18, and heart rate of 84. HEENT: Unremarkable. NECK: Supple. LUNGS: Decreased breath sounds. HEART: Normal S1 and S2. ABDOMEN: Soft. LABORATORY DATA: Reveals a white count of 15,000, hemoglobin of 15, platelets of 108. Coagulation is noted. Chemistry reveals a BUN of 11, creatinine 0.4, procalcitonin is 5.0. Urinalysis is noted. Serology is noted. CAT scan of the chest and CAT scan of the abdomen is noted. The patient also had a CAT scan of the head. There are new areas of hypodensity occipital lobes bilaterally in the right cerebellar hemisphere suspicious for acute infarcts. Dr. Centeno's progress note is reviewed and consultation is also reviewed. 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 The patient currently on fluconazole. Overall prognosis is quite poor. Should consider hospice setting in this patient with multiorgan involvement, metastatic malignancy. Lang Akhtar MD
[2016-11-29 08:33] LABS: BASO # 0.02 K/mm3 (0.0-2.0); BASO % 0.1 % (0.0-3.0); EOS % 0.1 % (1.5-5.0); GRAN # 13.65 (1.4-6.5); GRAN % 91.5 % (50.0-68.0); HEMOGLOBIN 14.6 gm/dL (12.0-16.0); LYMPH # 0.5 (1.2-3.4); LYMPH % 3.5 % (22.0-35.0); MEAN CELL VOLUME 95.6 fL (80.0-105.0); MEAN CORPUSCULAR HEMOGLOBIN 30.7 pg (25.0-35.0); MEAN CORPUSCULAR HGB CONC 32.2 g/dl (31.0-37.0); MEAN PLATELET VOLUME 12.2 fl (7.0-11.0); MONO # 0.7 (0.1-0.6); MONO % 4.8 % (1.0-6.0); PLATELET COUNT 76 10^3/uL (120.0-450.0); RBC 4.75 10^6/uL (3.5-6.1); RED CELL DISTRIBUTION WIDTH 18.3 % (11.5-14.5); WHITE BLOOD COUNT 14.9 10^3/ul (4.5-11.0)
[2016-11-29] MEDS: Sucralfate 1 gm/10 ml Oral Susp UD PO SCH ×2 (09:31→17:27)
[2016-11-29] MEDS ORDERED: DiphenhydrAMINE 50 mg/ml Inj IVP ONE (09:32)
[2016-11-29] MEDS: levETIRAcetam 500mg IVPB 500 MG/100 ML BAG IV SCH ×2 (09:33→21:43)
[2016-11-29] MEDS: Magnesium Oxide 400 mg Tab UD PO SCH ×2 (09:36→17:27)
[2016-11-29] MEDS: Multivitamin Therapeutic Tab PO SCH (09:38)
[2016-11-29] MEDS: Aluminum Hydroxide/Magnesium 30 ML, DiphenhydrAMINE 75 MG, Lidocaine 2% Viscous 30 ML PO SCH ×4 (09:39→22:00)
--- NOTE | 2016-11-29 09:58 | CP.PCM.PN ---
<Laura Navarro - Last Filed: 11/29/16 17:01> Subjective - Date & Time of Evaluation Date of Evaluation: 11/29/16 Time of Evaluation: 09:20 - Subjective Subjective: PGY-2 Neurology progress note for Dr Moya. Patient is unable to obtain MRI due to agitation. No new seizure episodes reported. Patient is still lethargic, and too weak to cooperate. Unable to obtain ROS due to mental status. Objective - Vital Signs/Intake and Output Vital Signs (last 24 hours): Temp Pulse Resp BP Pulse Ox 97.5 F L 73 16 138/79 99 11/29/16 08:00 11/29/16 09:38 11/29/16 08:00 11/29/16 09:38 11/29/16 08:00 Intake and Output: 11/29/16 11/29/16 06:59 18:59 Intake Total 820 Output Total 1050 Balance -230 - Medications Medications: Current Medications Acetaminophen (Tylenol 650 Mg Supp) 650 mg RC Q4H PRN PRN Reason: Fever >100.4 F Last Admin: 11/01/16 21:18 Dose: 650 mg Amlodipine Besylate (Norvasc) 5 mg PO DAILY [facility] Last Admin: 11/29/16 09:36 Dose: 5 mg Collagenase (Santyl) 1 gm TOP BID [facility] Last Admin: 11/28/16 17:59 Dose: 1 applic Al Hydrox/Mg Hydrox/Simethicone 30 ml/Diphenhydramine HCl 75 mg/Lidocaine 30 ml 0 ml PO QID [facility] Last Admin: 11/29/16 09:39 Dose: Not Given Diphenhydramine HCl (Benadryl) 50 mg IVP HS PRN PRN Reason: Insomnia Last Admin: 11/27/16 01:00 Dose: 50 mg Ergocalciferol (Drisdol 50,000 Intl Units Cap) 1 cap PO Q7D [facility] Last Admin: 11/19/16 18:04 Dose: Not Given Ferrous Sulfate (Feosol) 324 mg PO TID [facility] Last Admin: 11/29/16 09:32 Dose: 324 mg Fluconazole (Diflucan) 200 mg PO DAILY [facility] PRN Reason: Protocol Stop: 12/12/16 10:01 Last Admin: 11/29/16 09:32 Dose: 200 mg Furosemide (Lasix) 20 mg IVP Q12 [facility] Last Admin: 11/29/16 09:34 Dose: 20 mg Home Med (Home Med) 1 unit PO Q12H PRN PRN Reason: Inflammation Last Admin: 10/18/16 11:03 Dose: 1 unit Hydralazine HCl (Apresoline) 10 mg IVP Q4H PRN PRN Reason: Systolic Blood Pressure Hydromorphone HCl (Dilaudid) 1 mg IVP Q1H PRN PRN Reason: Pain, severe (8-10) Last Admin: 11/29/16 08:17 Dose: 1 mg Potassium Chloride (Potassium Chloride 20 Meq/100 Ml) 20 meq in 100 mls @ 50 mls/hr IVPB DAILY [facility] Last Admin: 11/29/16 09:37 Dose: 50 mls/hr Potassium Chloride 40 meq/ (Dextrose/Sodium Chloride) 1,020 mls @ 60 mls/hr IV .Q17H [facility] Last Admin: 11/29/16 08:27 Dose: 60 mls/hr Levetiracetam (Keppra 500mg Ivpb) 500 mg in 100 mls @ 400 mls/hr IV Q12 [facility] Last Admin: 11/29/16 09:33 Dose: 400 mls/hr Lisinopril (Zestril) 10 mg PO DAILY [facility] Last Admin: 11/29/16 09:38 Dose: 10 mg Magnesium Oxide (Mag-Ox) 400 mg PO BID [facility] Last Admin: 11/29/16 09:36 Dose: 400 mg Multi-Ingredient Ointment (Hydrophor Oint) 0 gm TOP Q6H PRN PRN Reason: Dry lip Multivitamins (Thera Tab) 1 tab PO 0800 [facility] Last Admin: 11/29/16 09:38 Dose: 1 tab Ondansetron HCl (Zofran Inj) 4 mg IVP Q4H PRN PRN Reason: Nausea/Vomiting Last Admin: 11/24/16 00:05 Dose: 4 mg Petrolatum (Desitin Maximum Strength Topical 40% Oint) 1 gm TOP Q4H PRN PRN Reason: Rash Last Admin: 10/23/16 22:39 Dose: 1 applic Propranolol HCl (Inderal La) 120 mg PO DAILY [facility] Last Admin: 11/28/16 11:56 Dose: Not Given Sucralfate (Carafate Oral Susp) 1 gm PO BID [facility] Last Admin: 11/29/16 09:31 Dose: 1 gm - Labs Labs: 11/29/16 07:15 11/29/16 07:15 PT 12.2 Seconds (9.9-11.8) H 11/29/16 07:30 INR 1.13 (0.93-1.08) H 11/29/16 07:30 APTT 24.7 Seconds (23.7-30.8) 11/29/16 07:30 - Constitutional Appears: No Acute Distress, Older Than Stated Age, Cachectic, Chronically Ill - Head Exam Head Exam: ATRAUMATIC, NORMAL INSPECTION, NORMOCEPHALIC - Eye Exam Eye Exam: EOMI, Normal appearance, PERRL. absent: Scleral icterus Pupil Exam: NORMAL ACCOMODATION, PERRL - ENT Exam ENT Exam: Mucous Membranes Moist - Neck Exam Neck Exam: Normal Inspection - Respiratory Exam Respiratory Exam: Clear to Ausculation Bilateral, NORMAL BREATHING PATTERN - Cardiovascular Exam Cardiovascular Exam: REGULAR RHYTHM, +S1, +S2 - GI/Abdominal Exam GI & Abdominal Exam: Soft, Normal Bowel Sounds. absent: Tenderness - Extremities Exam Extremities Exam: Pedal Edema - Neurological Exam Additional comments: lethargic and drowsy, aroused to verbal and tactile stimuli. Follows simple commands. Eyes were open spontaneously. Pupils reactive to light. Reflexes 2+ throughout in the Achilles tender and patella tendons b/l No nuchal rigidity. Negative babinski No clonus. Patient is moving her upper extremities spontaneously, able to wiggle her toes b /l. 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 Patient had episode where she was twitching and staring questionable for seizure. Ct head with occipital foci, EEg with no epileptic wave, complete slowness. Impression: Questionable partial seizures 2nd to sepsis with multiple organ dysfunction likely lowering the seizure threshold. Plan: - Pending MRI - Continue keppra 500 mg bid. - Avoid opioid and sedatives - Continue with current management. - Thank you for consulting Dr Moya. Patient seen, examined, and discussed with Dr Moya. <Ravi Moya - Last Filed: 11/30/16 10:41> Objective - Vital Signs/Intake and Output Vital Signs (last 24 hours): Temp Pulse Resp BP Pulse Ox 97.6 F 70 28 H 156/72 H 96 11/30/16 04:00 11/30/16 06:00 11/30/16 06:00 11/30/16 10:06 11/30/16 06:00 Intake and Output: 11/30/16 11/30/16 06:59 18:59 Intake Total 820 Output Total 600 Balance 220 - Medications Medications: Current Medications Acetaminophen (Tylenol 650 Mg Supp) 650 mg RC Q4H PRN PRN Reason: Fever >100.4 F Last Admin: 11/01/16 21:18 Dose: 650 mg Amlodipine Besylate (Norvasc) 5 mg PO DAILY [facility] Last Admin: 11/30/16 10:07 Dose: Not Given Al Hydrox/Mg Hydrox/Simethicone 30 ml/Diphenhydramine HCl 75 mg/Lidocaine 30 ml 0 ml PO QID [facility] Last Admin: 11/30/16 10:16 Dose: Not Given Diphenhydramine HCl (Benadryl) 50 mg IVP HS PRN PRN Reason: Insomnia Last Admin: 11/27/16 01:00 Dose: 50 mg Ergocalciferol (Drisdol 50,000 Intl Units Cap) 1 cap PO Q7D [facility] Last Admin: 11/19/16 18:04 Dose: Not Given Ferrous Sulfate (Feosol) 324 mg PO TID [facility] Last Admin: 11/30/16 10:02 Dose: Not Given Fluconazole (Diflucan) 200 mg PO DAILY [facility] PRN Reason: Protocol Stop: 12/12/16 10:01 Last Admin: 11/30/16 10:02 Dose: Not Given Furosemide (Lasix) 20 mg IVP Q12 [facility] Last Admin: 11/30/16 10:06 Dose: 20 mg Home Med (Home Med) 1 unit PO Q12H PRN PRN Reason: Inflammation Last Admin: 10/18/16 11:03 Dose: 1 unit Hydralazine HCl (Apresoline) 10 mg IVP Q4H PRN PRN Reason: Systolic Blood Pressure Hydromorphone HCl (Dilaudid) 1 mg IVP Q1H PRN PRN Reason: Pain, severe (8-10) Last Admin: 11/30/16 10:17 Dose: 1 mg Potassium Chloride (Potassium Chloride 20 Meq/100 Ml) 20 meq in 100 mls @ 50 mls/hr IVPB DAILY [facility] Last Admin: 11/30/16 10:07 Dose: 50 mls/hr Levetiracetam (Keppra 500mg Ivpb) 500 mg in 100 mls @ 400 mls/hr IV Q12 [facility] Last Admin: 11/30/16 10:06 Dose: 400 mls/hr Potassium Chloride 40 meq/ (Dextrose/Sodium Chloride) 1,020 mls @ 60 mls/hr IV .Q17H [facility] Last Admin: 11/30/16 10:10 Dose: 60 mls/hr Lisinopril (Zestril) 10 mg PO DAILY [facility] Last Admin: 11/30/16 10:16 Dose: Not Given Magnesium Oxide (Mag-Ox) 400 mg PO BID [facility] Last Admin: 11/30/16 10:07 Dose: Not Given Multi-Ingredient Ointment (Hydrophor Oint) 0 gm TOP Q6H PRN PRN Reason: Dry lip Multivitamins (Thera Tab) 1 tab PO 0800 [facility] Last Admin: 11/30/16 10:16 Dose: Not Given Petrolatum (Desitin Maximum Strength Topical 40% Oint) 1 gm TOP Q4H PRN PRN Reason: Rash Last Admin: 10/23/16 22:39 Dose: 1 applic Propranolol HCl (Inderal La) 120 mg PO DAILY [facility] Last Admin: 11/30/16 10:02 Dose: Not Given Sucralfate (Carafate Oral Susp) 1 gm PO BID [facility] Last Admin: 11/30/16 10:01 Dose: Not Given - Labs Labs: 11/30/16 05:20 11/30/16 05:20 PT 12.2 Seconds (9.9-11.8) H 11/30/16 05:20 INR 1.13 (0.93-1.08) H 11/30/16 05:20 APTT 29.6 Seconds (23.7-30.8) 11/30/16 05:20 Attending/Attestation - Attestation I have personally seen and examined this patient.: Yes I have fully participated in the care of the patient.: Yes I have reviewed all pertinent clinical information, including history, physical exam and plan: Yes
--- NOTE | 2016-11-29 11:40 | CP.PCM.PN ---
<Yoana Osei - Last Filed: 11/29/16 12:46> Subjective - Date & Time of Evaluation Date of Evaluation: 11/29/16 Time of Evaluation: 10:10 - Subjective Subjective: Seen and examined at bedside, sister at bedside. No reports of further seizure activity. Patient is lethargic, open eyes at times, but not verbally responsive , sister says patient recognizes her voice. Attempt MRI. patient cant tolerate. Objective - Vital Signs/Intake and Output Vital Signs (last 24 hours): Temp Pulse Resp BP Pulse Ox 97.5 F L 77 16 138/79 99 11/29/16 08:00 11/29/16 10:00 11/29/16 08:00 11/29/16 09:38 11/29/16 08:00 Intake and Output: 11/29/16 11/29/16 06:59 18:59 Intake Total 820 Output Total 1050 Balance -230 - Medications Medications: Current Medications Acetaminophen (Tylenol 650 Mg Supp) 650 mg RC Q4H PRN PRN Reason: Fever >100.4 F Last Admin: 11/01/16 21:18 Dose: 650 mg Amlodipine Besylate (Norvasc) 5 mg PO DAILY [facility] Last Admin: 11/29/16 09:36 Dose: 5 mg Collagenase (Santyl) 1 gm TOP BID [facility] Last Admin: 11/28/16 17:59 Dose: 1 applic Al Hydrox/Mg Hydrox/Simethicone 30 ml/Diphenhydramine HCl 75 mg/Lidocaine 30 ml 0 ml PO QID [facility] Last Admin: 11/29/16 09:39 Dose: Not Given Diphenhydramine HCl (Benadryl) 50 mg IVP HS PRN PRN Reason: Insomnia Last Admin: 11/27/16 01:00 Dose: 50 mg Ergocalciferol (Drisdol 50,000 Intl Units Cap) 1 cap PO Q7D [facility] Last Admin: 11/19/16 18:04 Dose: Not Given Ferrous Sulfate (Feosol) 324 mg PO TID [facility] Last Admin: 11/29/16 09:32 Dose: 324 mg Fluconazole (Diflucan) 200 mg PO DAILY [facility] PRN Reason: Protocol Stop: 12/12/16 10:01 Last Admin: 11/29/16 09:32 Dose: 200 mg Furosemide (Lasix) 20 mg IVP Q12 [facility] Last Admin: 11/29/16 09:34 Dose: 20 mg Home Med (Home Med) 1 unit PO Q12H PRN PRN Reason: Inflammation Last Admin: 10/18/16 11:03 Dose: 1 unit Hydralazine HCl (Apresoline) 10 mg IVP Q4H PRN PRN Reason: Systolic Blood Pressure Hydromorphone HCl (Dilaudid) 1 mg IVP Q1H PRN PRN Reason: Pain, severe (8-10) Last Admin: 11/29/16 08:17 Dose: 1 mg Potassium Chloride (Potassium Chloride 20 Meq/100 Ml) 20 meq in 100 mls @ 50 mls/hr IVPB DAILY [facility] Last Admin: 11/29/16 09:37 Dose: 50 mls/hr Potassium Chloride 40 meq/ (Dextrose/Sodium Chloride) 1,020 mls @ 60 mls/hr IV .Q17H [facility] Last Admin: 11/29/16 08:27 Dose: 60 mls/hr Levetiracetam (Keppra 500mg Ivpb) 500 mg in 100 mls @ 400 mls/hr IV Q12 [facility] Last Admin: 11/29/16 09:33 Dose: 400 mls/hr Lisinopril (Zestril) 10 mg PO DAILY [facility] Last Admin: 11/29/16 09:38 Dose: 10 mg Magnesium Oxide (Mag-Ox) 400 mg PO BID [facility] Last Admin: 11/29/16 09:36 Dose: 400 mg Multi-Ingredient Ointment (Hydrophor Oint) 0 gm TOP Q6H PRN PRN Reason: Dry lip Multivitamins (Thera Tab) 1 tab PO 0800 [facility] Last Admin: 11/29/16 09:38 Dose: 1 tab Ondansetron HCl (Zofran Inj) 4 mg IVP Q4H PRN PRN Reason: Nausea/Vomiting Last Admin: 11/24/16 00:05 Dose: 4 mg Petrolatum (Desitin Maximum Strength Topical 40% Oint) 1 gm TOP Q4H PRN PRN Reason: Rash Last Admin: 10/23/16 22:39 Dose: 1 applic Propranolol HCl (Inderal La) 120 mg PO DAILY [facility] Last Admin: 11/28/16 11:56 Dose: Not Given Sucralfate (Carafate Oral Susp) 1 gm PO BID [facility] Last Admin: 11/29/16 09:31 Dose: 1 gm - Labs Labs: 11/29/16 07:15 11/29/16 07:15 PT 12.2 Seconds (9.9-11.8) H 11/29/16 07:30 INR 1.13 (0.93-1.08) H 11/29/16 07:30 APTT 24.7 Seconds (23.7-30.8) 11/29/16 07:30 - Constitutional Appears: Chronically Ill - Eye Exam Eye Exam: Normal appearance. absent: Scleral icterus - ENT Exam ENT Exam: Mucous Membranes Moist - Respiratory Exam Respiratory Exam: NORMAL BREATHING PATTERN. absent: Respiratory Distress - Cardiovascular Exam Cardiovascular Exam: +S1, +S2 - GI/Abdominal Exam GI & Abdominal Exam: Soft, Normal Bowel Sounds ((+) colostomy with darl liquid stool). absent: Guarding, Rebound - Extremities Exam Extremities Exam: Pedal Edema (TEDS). absent: Calf Tenderness - Neurological Exam Neurological Exam: Altered - Skin Skin Exam: Dry, Warm Assessment and Plan - Assessment and Plan (Free Text) Assessment: ASSESSMENT: New Onset Seizures, ct scan reveal hypodensities right cerebellum and bilateral occipital Metastatic Stage IV Colon Cancer S/P Exploratory laparotomy with lysis of adhesions and repair of small bowel enterotomy and partial sigmoidectomy with end colostomy GI Bleed, S/P push enteroscopy: negative for bleed Anemia with multiple blood transfusions Elevated LFT, mainly alk phos, abdominal US done, 6/2 (+) sludge, no GB stones, CBD 5.0 cm Fungemia PLAN: On oral Duflucan Iron supplements check direct bilirubin IVF for hydration Clear Liquids when alert, aspiration precaution On Keppra/Valproate Sodium monitor cbc, electrolytes neurology following seizure precautions pending MRI Seen and discussed with Dr. Null. <Tong Null V - Last Filed: 11/29/16 21:47> Objective - Vital Signs/Intake and Output Vital Signs (last 24 hours): Temp Pulse Resp BP Pulse Ox 97.2 F L 88 21 149/85 98 11/29/16 16:00 11/29/16 16:00 11/29/16 16:00 11/29/16 16:00 11/29/16 16:00 Intake and Output: 11/29/16 11/30/16 18:59 06:59 Intake Total 730 Output Total 420 Balance 310 - Medications Medications: Current Medications Acetaminophen (Tylenol 650 Mg Supp) 650 mg RC Q4H PRN PRN Reason: Fever >100.4 F Last Admin: 11/01/16 21:18 Dose: 650 mg Amlodipine Besylate (Norvasc) 5 mg PO DAILY [facility] Last Admin: 11/29/16 09:36 Dose: 5 mg Collagenase (Santyl) 1 gm TOP BID [facility] Last Admin: 11/29/16 17:10 Dose: 1 applic Al Hydrox/Mg Hydrox/Simethicone 30 ml/Diphenhydramine HCl 75 mg/Lidocaine 30 ml 0 ml PO QID [facility] Last Admin: 11/29/16 17:28 Dose: Not Given Diphenhydramine HCl (Benadryl) 50 mg IVP HS PRN PRN Reason: Insomnia Last Admin: 11/27/16 01:00 Dose: 50 mg Ergocalciferol (Drisdol 50,000 Intl Units Cap) 1 cap PO Q7D [facility] Last Admin: 11/19/16 18:04 Dose: Not Given Ferrous Sulfate (Feosol) 324 mg PO TID [facility] Last Admin: 11/29/16 17:27 Dose: Not Given Fluconazole (Diflucan) 200 mg PO DAILY [facility] PRN Reason: Protocol Stop: 12/12/16 10:01 Last Admin: 11/29/16 09:32 Dose: 200 mg Furosemide (Lasix) 20 mg IVP Q12 [facility] Last Admin: 11/29/16 09:34 Dose: 20 mg Home Med (Home Med) 1 unit PO Q12H PRN PRN Reason: Inflammation Last Admin: 10/18/16 11:03 Dose: 1 unit Hydralazine HCl (Apresoline) 10 mg IVP Q4H PRN PRN Reason: Systolic Blood Pressure Hydromorphone HCl (Dilaudid) 1 mg IVP Q1H PRN PRN Reason: Pain, severe (8-10) Last Admin: 11/29/16 20:50 Dose: 1 mg Potassium Chloride (Potassium Chloride 20 Meq/100 Ml) 20 meq in 100 mls @ 50 mls/hr IVPB DAILY [facility] Last Admin: 11/29/16 09:37 Dose: 50 mls/hr Levetiracetam (Keppra 500mg Ivpb) 500 mg in 100 mls @ 400 mls/hr IV Q12 [facility] Last Admin: 11/29/16 09:33 Dose: 400 mls/hr Potassium Chloride 40 meq/ (Dextrose/Sodium Chloride) 1,020 mls @ 60 mls/hr IV .Q17H [facility] Last Admin: 11/29/16 14:25 Dose: 60 mls/hr Lisinopril (Zestril) 10 mg PO DAILY [facility] Last Admin: 11/29/16 09:38 Dose: 10 mg Magnesium Oxide (Mag-Ox) 400 mg PO BID [facility] Last Admin: 11/29/16 17:27 Dose: Not Given Multi-Ingredient Ointment (Hydrophor Oint) 0 gm TOP Q6H PRN PRN Reason: Dry lip Multivitamins (Thera Tab) 1 tab PO 0800 [facility] Last Admin: 11/29/16 09:38 Dose: 1 tab Ondansetron HCl (Zofran Inj) 4 mg IVP Q4H PRN PRN Reason: Nausea/Vomiting Last Admin: 11/24/16 00:05 Dose: 4 mg Petrolatum (Desitin Maximum Strength Topical 40% Oint) 1 gm TOP Q4H PRN PRN Reason: Rash Last Admin: 10/23/16 22:39 Dose: 1 applic Propranolol HCl (Inderal La) 120 mg PO DAILY [facility] Last Admin: 11/29/16 11:48 Dose: Not Given Sucralfate (Carafate Oral Susp) 1 gm PO BID [facility] Last Admin: 11/29/16 17:27 Dose: Not Given - Labs Labs: 11/29/16 07:15 11/29/16 07:15 PT 12.2 Seconds (9.9-11.8) H 11/29/16 07:30 INR 1.13 (0.93-1.08) H 11/29/16 07:30 APTT 24.7 Seconds (23.7-30.8) 11/29/16 07:30 Attending/Attestation - Attestation I have personally seen and examined this patient.: Yes I have fully participated in the care of the patient.: Yes I have reviewed all pertinent clinical information, including history, physical exam and plan: Yes Notes (Text): THIS
[2016-11-29] MEDS: Propranolol 60 mg ER Cap PO SCH (11:48)
--- NOTE | 2016-11-29 13:13 | CP.PCM.PN ---
Subjective - Date & Time of Evaluation Date of Evaluation: 11/29/16 Time of Evaluation: 10:00 - Subjective Subjective: PGY-[address] Hendricks Pt lethargic, able to verbalize pain. Per sister by bedside, pt was able to recognize family member and makes pain needs known Objective - Vital Signs/Intake and Output Vital Signs (last 24 hours): Temp Pulse Resp BP Pulse Ox 97.6 F 96 H 20 137/92 H 97 11/29/16 12:00 11/29/16 12:00 11/29/16 12:00 11/29/16 12:00 11/29/16 12:00 Intake and Output: 11/29/16 11/29/16 06:59 18:59 Intake Total 820 200 Output Total 1050 Balance -230 200 - Medications Medications: Current Medications Acetaminophen (Tylenol 650 Mg Supp) 650 mg RC Q4H PRN PRN Reason: Fever >100.4 F Last Admin: 11/01/16 21:18 Dose: 650 mg Amlodipine Besylate (Norvasc) 5 mg PO DAILY [facility] Last Admin: 11/29/16 09:36 Dose: 5 mg Collagenase (Santyl) 1 gm TOP BID [facility] Last Admin: 11/28/16 17:59 Dose: 1 applic Al Hydrox/Mg Hydrox/Simethicone 30 ml/Diphenhydramine HCl 75 mg/Lidocaine 30 ml 0 ml PO QID [facility] Last Admin: 11/29/16 09:39 Dose: Not Given Diphenhydramine HCl (Benadryl) 50 mg IVP HS PRN PRN Reason: Insomnia Last Admin: 11/27/16 01:00 Dose: 50 mg Ergocalciferol (Drisdol 50,000 Intl Units Cap) 1 cap PO Q7D [facility] Last Admin: 11/19/16 18:04 Dose: Not Given Ferrous Sulfate (Feosol) 324 mg PO TID [facility] Last Admin: 11/29/16 09:32 Dose: 324 mg Fluconazole (Diflucan) 200 mg PO DAILY [facility] PRN Reason: Protocol Stop: 12/12/16 10:01 Last Admin: 11/29/16 09:32 Dose: 200 mg Furosemide (Lasix) 20 mg IVP Q12 [facility] Last Admin: 11/29/16 09:34 Dose: 20 mg Home Med (Home Med) 1 unit PO Q12H PRN PRN Reason: Inflammation Last Admin: 10/18/16 11:03 Dose: 1 unit Hydralazine HCl (Apresoline) 10 mg IVP Q4H PRN PRN Reason: Systolic Blood Pressure Hydromorphone HCl (Dilaudid) 1 mg IVP Q1H PRN PRN Reason: Pain, severe (8-10) Last Admin: 11/29/16 12:30 Dose: 1 mg Potassium Chloride (Potassium Chloride 20 Meq/100 Ml) 20 meq in 100 mls @ 50 mls/hr IVPB DAILY [facility] Last Admin: 11/29/16 09:37 Dose: 50 mls/hr Levetiracetam (Keppra 500mg Ivpb) 500 mg in 100 mls @ 400 mls/hr IV Q12 [facility] Last Admin: 11/29/16 09:33 Dose: 400 mls/hr Potassium Chloride 40 meq/ (Dextrose/Sodium Chloride) 1,020 mls @ 60 mls/hr IV .Q17H [facility] Lisinopril (Zestril) 10 mg PO DAILY [facility] Last Admin: 11/29/16 09:38 Dose: 10 mg Magnesium Oxide (Mag-Ox) 400 mg PO BID [facility] Last Admin: 11/29/16 09:36 Dose: 400 mg Multi-Ingredient Ointment (Hydrophor Oint) 0 gm TOP Q6H PRN PRN Reason: Dry lip Multivitamins (Thera Tab) 1 tab PO 0800 [facility] Last Admin: 11/29/16 09:38 Dose: 1 tab Ondansetron HCl (Zofran Inj) 4 mg IVP Q4H PRN PRN Reason: Nausea/Vomiting Last Admin: 11/24/16 00:05 Dose: 4 mg Petrolatum (Desitin Maximum Strength Topical 40% Oint) 1 gm TOP Q4H PRN PRN Reason: Rash Last Admin: 10/23/16 22:39 Dose: 1 applic Propranolol HCl (Inderal La) 120 mg PO DAILY [facility] Last Admin: 11/29/16 11:48 Dose: Not Given Sucralfate (Carafate Oral Susp) 1 gm PO BID [facility] Last Admin: 11/29/16 09:31 Dose: 1 gm - Labs Labs: 11/29/16 07:15 11/29/16 07:15 PT 12.2 Seconds (9.9-11.8) H 11/29/16 07:30 INR 1.13 (0.93-1.08) H 11/29/16 07:30 APTT 24.7 Seconds (23.7-30.8) 11/29/16 07:30 - Constitutional Appears: Cachectic, Chronically Ill - Eye Exam Eye Exam: Normal appearance. absent: Scleral icterus - ENT Exam ENT Exam: Mucous Membranes Moist - Neck Exam Additional comments: supple - Respiratory Exam Respiratory Exam: Clear to Ausculation Bilateral. absent: Rales, Rhonchi, Wheezes - Cardiovascular Exam Cardiovascular Exam: REGULAR RHYTHM, +S1, +S2 - GI/Abdominal Exam GI & Abdominal Exam: Soft, Hypoactive Bowel Sounds Additional comments: mild erythema along ostomy bad attacgment - Neurological Exam Additional comments: letheragic, arouable by light touch - Skin Skin Exam: Dry, Warm Assessment and Plan - Assessment and Plan (Free Text) Plan: [employer] Progress Note Patient Name: AMITA SANCHEZ Date of : 1955 Patient Status: Inpatient Attending Provider: Tomasz Winters Date: 11/28/16 08:02 Initialization Date: 11/28/16 08:02 Subjective - Date & Time of Evaluation Date of Evaluation: 11/28/16 Time of Evaluation: 08:02 - Subjective Subjective: PGY-[address] Hendricks Pt was lethargic but arousable by voice. Able to verbalize in one word, "pain", "cold" VSS on monitor Objective - Vital Signs/Intake and Output Vital Signs (last 24 hours): Temp Pulse Resp BP Pulse Ox 97.9 F 85 12 132/82 100 11/28/16 04:00 11/28/16 06:00 11/28/16 06:00 11/28/16 06:00 06:00 Intake and Output: 11/28/16 11/28/16 06:59 18:59 Intake Total 820 Output Total 1775 Balance -955 - Medications Medications: Current Medications Acetaminophen (Tylenol 650 Mg Supp) 650 mg RC Q4H PRN PRN Reason: Fever >100.4 F Last Admin: 06/22/17 21:18 Dose: 650 mg Amlodipine Besylate (Norvasc) 5 mg PO DAILY [facility] Collagenase (Santyl) 1 gm TOP BID [facility] Last Admin: 11/27/16 17:34 Dose: 1 applic Al Hydrox/Mg Hydrox/Simethicone 30 ml/Diphenhydramine HCl 75 mg/Lidocaine 30 ml 0 ml PO QID [facility] Last Admin: 11/27/16 22:30 Dose: Not Given Diphenhydramine HCl (Benadryl) 50 mg IVP HS PRN PRN Reason: Insomnia Last Admin: 11/27/16 01:00 Dose: 50 mg Ergocalciferol (Drisdol 50,000 Intl Units Cap) 1 cap PO Q7D [facility] Last Admin: 11/19/16 18:04 Dose: Not Given Fentanyl (Duragesic) 1 patch TD Q72H [facility] Last Admin: 11/22/16 14:30 Dose: 1 patch Ferrous Sulfate (Feosol) 324 mg PO TID [facility] Last Admin: 11/27/16 17:33 Dose: 324 mg Fluconazole (Diflucan) 200 mg PO DAILY [facility] PRN Reason: Protocol Stop: 12/12/16 10:01 Furosemide (Lasix) 20 mg IVP Q12 [facility] Last Admin: 11/27/16 22:30 Dose: 20 mg Home Med (Home Med) 1 unit PO Q12H PRN PRN Reason: Inflammation Last Admin: 10/18/16 11:03 Dose: 1 unit Hydralazine HCl (Apresoline) 10 mg IVP Q4H PRN PRN Reason: Systolic Blood Pressure Hydromorphone HCl (Dilaudid) 1 mg IVP Q1H PRN PRN Reason: Pain, severe (8-10) Last Admin: 11/28/16 05:50 Dose: 1 mg Potassium Chloride (Potassium Chloride 20 Meq/100 Ml) 20 meq in 100 mls @ 50 mls/hr IVPB DAILY [facility] Last Admin: 11/27/16 11:22 Dose: 50 mls/hr Potassium Chloride 40 meq/ (Dextrose/Sodium Chloride) 1,020 mls @ 60 mls/hr IV .Q17H [facility] Last Admin: 11/27/16 18:50 Dose: 60 mls/hr Levetiracetam (Keppra 500mg Ivpb) 500 mg in 100 mls @ 400 mls/hr IV Q12 [facility] Valproate Sodium 250 mg/ (Sodium Chloride) 102.5 mls @ 100 mls/hr IVPB Q12 [facility] Last Admin: 11/27/16 23:15 Dose: 100 mls/hr Lisinopril (Zestril) 10 mg PO DAILY [facility] Magnesium Oxide (Mag-Ox) 400 mg PO BID [facility] Last Admin: 11/27/16 17:33 Dose: 400 mg Multi-Ingredient Ointment (Hydrophor Oint) 0 gm TOP Q6H PRN PRN Reason: Dry lip Multivitamins (Thera Tab) 1 tab PO 0800 [facility] Last Admin: 11/27/16 08:34 Dose: 1 tab Ondansetron HCl (Zofran Inj) 4 mg IVP Q4H PRN PRN Reason: Nausea/Vomiting Last Admin: 11/24/16 00:05 Dose: 4 mg Petrolatum (Desitin Maximum Strength Topical 40% Oint) 1 gm TOP Q4H PRN PRN Reason: Rash Last Admin: 10/23/16 22:39 Dose: 1 applic Propranolol HCl (Inderal La) 120 mg PO DAILY [facility] Last Admin: 11/27/16 09:42 Dose: 120 mg Sucralfate (Carafate Oral Susp) 1 gm PO BID [facility] Last Admin: 11/27/16 17:33 Dose: 1 gm - Labs Labs: 11/27/16 19:40 [Image 1] 11/27/16 19:40 [Image 1] PT 12.4 Seconds (9.9-11.8) H 11/27/16 19:40 INR 1.15 (0.93-1.08) H 11/27/16 19:40 APTT 30.1 Seconds (23.7-30.8) 11/27/16 19:40 - Constitutional Appears: No Acute Distress, Cachectic, Chronically Ill - Head Exam Head Exam: ATRAUMATIC, NORMAL INSPECTION, NORMOCEPHALIC - Eye Exam Eye Exam: Normal appearance, PERRL. absent: Scleral icterus - ENT Exam ENT Exam: Mucous Membranes Moist - Respiratory Exam Respiratory Exam: Clear to Ausculation Bilateral. absent: Rales, Rhonchi, Wheezes - Cardiovascular Exam Cardiovascular Exam: REGULAR RHYTHM, +S1, +S2 - GI/Abdominal Exam GI & Abdominal Exam: Soft, Hypoactive Bowel Sounds Additional comments: incision line no erythema/drainge DEEJAY drained pulled, dressing d/c/i ostomy bag intact. loose formed stool, dark - Extremities Exam Extremities Exam: Normal Capillary Refill (slight b/l), Pedal Edema. absent: Calf Tenderness - Neurological Exam Additional comments: Arouse to voice. Able to verbalize needs with one word answer - Skin Skin Exam: Dry, Intact Assessment and Plan - Assessment and Plan (Free Text) Plan: 61 F admitted on 10/09/16 with sepsis post chemotherapy with 2 cycles of FOLFOX based chemotherapy with Avastin. The hospital course was complicated by anemia due to GI bleeding requiring transfusion and fungemia/bactermia with Port removal (11/14/16). L picc was placed on 10/31/16 which was not replaced due to coagulopathy and bleeding. Pt was hypotensive and AMS on 11/23 [employer] due to narcotic side effect. 2 [employer] was called (11/27) for blurry vision turned blank stair, which later turned tonic-clonic movements. During [employer], she was responsive to only painful stimuli. Left sided facial droop was experienced. Pt was trasnferred to ICU, now downgraded to remote telemetry. Plan: (?) Seizure due to old stroke vs brain mets. Palliative care and Dr. Hendricks will have family meeting tomorrow Altered Mental Status - seizure vs stroke vs new brain mets - Keppra IV bid - noncontrast CT of the head: CT head on 11/27 with encephalomalacia, ct scan reveal hypodensities right cerebellum and bilateral occipital, which were there before compared to CT of the head from 10/11/16. - noncontrast chest abdomen, pelvis CT - LActate 2.7 - EEG - MRI of brain with gadolinum per neural - Palliative re-consult Hb drops from 13 (s/p 4u pRBC) to 11. Severe anemia, s/p 4u pRBC on 11/24 - Feosol 324 TID Thrombocytopenia Neutropenia from chemotherapy - resolved - Colonscopy to be done Neuropathic Pain - Dilaudud 1q1 PRN - Hold [employer] for now. Hold Durgesic - Per Dr Hendricks, do not add more pain meds now. Maintain at current pain regimen. Upper GI bleed s/p EGD with push enteroscopy <-- EGD <-- bleeding scan x 2 ( negative) - No source of bleeding at examined duodedeum and jejunum - Propranolol 120 - Consider intraoperative enteroscopy or outpatient capsule endoscopy. 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 end-colostomy Susy esophagitis Pathology: Poorly differentiated colorectal adenocarcinoma metasiasis to bowel wall and serosa and one resection margin. 3/5 lymph nodes positive for metastasis - Microstaellite stable (08/13/16). Has ruled out rollins syndrome Sepsis due to C. albicans Fungemia, probably from port-a-cath Bacteremia with methicillin-resistant coagulase negative staph in repeated cx Gram negative bacilli in urine with minor - minor removed (11/24) Nose culture coagulase neg staphylococcus (11/24) - continue mycamine (day 14 since port removal) - Then switch to PO diflucan for another 2 weeks for total of 4 week antifungal tx - Off daptomycin for bactermeia r/o picc, r/o contamination (1/4 bottles) - repeated urine cx negative - observe off abx - Hold valganciclovir, no CMV on esophagus ulcer Severe hypokalemia Hypernatermia Severe malnutrition, albumin 2.0 Hypomandnesemia - replete as needed - Ensure 3 can/day - Mag-Ox 400mg BID - KCL piggybag daily - D5/NS with KCl 40 @ 100 Edema - lasix 20q12 Prophylasix - SCD, sucralfate BID s/r/d/w Dr. Hendricks
--- NOTE | 2016-11-29 13:34 | PN ---
DATE: 11/29/2016 SUBJECTIVE: The patient is in bed, in no acute distress, nontoxic. PHYSICAL EXAMINATION: VITAL SIGNS: Temperature is 97, blood pressure is 150/80, respiratory rate of 18, heart rate of 60. HEENT: Unremarkable. NECK: Supple LUNGS: Decreased breath sounds. HEART: Normal S1, S2. ABDOMEN: Soft and nontender. LABORATORY DATA: Examination reveals a white count of 14,000, hemoglobin is noted, BUN of 13, creatinine of 0.3. Alk phos is 405. *------* note is reviewed. Review of medications noted. ASSESSMENT AND PLAN: This is a 61-year-old female who is doing poorly now with sepsis Susy albicans fungemia, Port-A-Cath removal, end-stage colon cancer stage-IV with cauda-equina syndrome and colectomy, now with change in mental status with MRI findings with acute infarct, and had a CAT scan of the head, findings are consistent with new areas of hypodense in the occipital lobes bilaterally in the right cerebellar hemisphere suspicious for acute infarct. Dr. Ravi Moya's consultation is appreciated. Overall prognosis quite poor. Lang Akhtar MD
[2016-11-29] MEDS: Collagenase 250 Units/gm Ointment(30 gm) TOP SCH ×2 (13:43→17:10)
--- NOTE | 2016-11-29 13:53 | CP.PCM.CON ---
History of Present Illness - History of Present Illness History of Present Illness: Palliative consult per Dr Hawk Hendricks Reason: advance care planning 61 year old female with history of metastatic colon cancer s/p chemotherapy was initiallyadmitted on 10/09/16 with pancytopenia, sepsis, diarrhea, anemia, mucositis, CASANDRA and persistent GI bleeding. She has since had colon resection with colostomy. Patient was improving until a few days ago when she became dizzy and appeared to be seizing. CT of brain showed new areas of hypodensity in the occipital lobes and the right cerebellar hemisphere suspicious for infarcts. EEG showed diffuse slowing throughout the recording consistent with bilateral vestibular dysfunction, no evidence of epileptiform activity. She is waiting MRI of brain. She is extremely lethargic, confused. PMHx: colon cancer, GI bleed, HTN, sacral decubti. Social History: Former smoker, no illicit alcohol or drug use. Single, lives with mother Family History: Non contributory. Advance Care Planning: The patient does not have an advanced directive and is full code. Review of Systems: Unable to obtain, patient is altered. Past Patient History - Infectious Disease Hx of Infectious Diseases: None - Tetanus Immunizations Tetanus Immunization: Unknown - Past Social History Smoking Status: Never Smoked Alcohol: None Drugs: Denies Home Situation {Lives}: With Family - CARDIAC Hx Cardiac Disorders: Yes Hx Hypertension: Yes - PULMONARY Hx Respiratory Disorders: No - NEUROLOGICAL Hx Neurological Disorder: No - HEENT Hx HEENT Problems: Yes (Contacts/glasses) - RENAL Hx Renal Failure: Yes (urinary retention) - ENDOCRINE/METABOLIC Hx Endocrine Disorders: No - HEMATOLOGICAL/ONCOLOGICAL Hx Blood Transfusions: Yes Hx Blood Transfusion Reaction: No - INTEGUMENTARY 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) - MUSCULOSKELETAL/RHEUMATOLOGICAL Hx Musculoskeletal Disorders: Yes Hx Back Pain: Yes Hx Falls: No - GASTROINTESTINAL Hx Gastroesophageal Reflux: Yes - GENITOURINARY/GYNECOLOGICAL Hx Genitourinary Disorders: Yes Hx Urinary Tract Infection: Yes - PSYCHIATRIC Hx Psychophysiologic Disorder: Yes Hx Anxiety: Yes Hx Substance Use: No - SURGICAL HISTORY Hx Surgeries: Yes - ANESTHESIA Hx Anesthesia Reactions: No Hx Malignant Hyperthermia: No Meds Allergies/Adverse Reactions: Allergies Allergy/AdvReac Type Severity Reaction Status Date / Time IV CONTRAST Allergy Severe SHORTNESS Uncoded 10/06/16 18:13 OF BREATH CAF Allergy Intermediate PALPITATION Uncoded 10/06/16 18:13 S - Medications Medications: Current Medications Acetaminophen (Tylenol 650 Mg Supp) 650 mg RC Q4H PRN PRN Reason: Fever >100.4 F Last Admin: 11/01/16 21:18 Dose: 650 mg Amlodipine Besylate (Norvasc) 5 mg PO DAILY [facility] Last Admin: 11/29/16 09:36 Dose: 5 mg Collagenase (Santyl) 1 gm TOP BID [facility] Last Admin: 11/29/16 13:43 Dose: 1 applic Al Hydrox/Mg Hydrox/Simethicone 30 ml/Diphenhydramine HCl 75 mg/Lidocaine 30 ml 0 ml PO QID [facility] Last Admin: 11/29/16 09:39 Dose: Not Given Diphenhydramine HCl (Benadryl) 50 mg IVP HS PRN PRN Reason: Insomnia Last Admin: 11/27/16 01:00 Dose: 50 mg Ergocalciferol (Drisdol 50,000 Intl Units Cap) 1 cap PO Q7D [facility] Last Admin: 11/19/16 18:04 Dose: Not Given Ferrous Sulfate (Feosol) 324 mg PO TID [facility] Last Admin: 11/29/16 13:43 Dose: Not Given Fluconazole (Diflucan) 200 mg PO DAILY [facility] PRN Reason: Protocol Stop: 12/12/16 10:01 Last Admin: 11/29/16 09:32 Dose: 200 mg Furosemide (Lasix) 20 mg IVP Q12 [facility] Last Admin: 11/29/16 09:34 Dose: 20 mg Home Med (Home Med) 1 unit PO Q12H PRN PRN Reason: Inflammation Last Admin: 10/18/16 11:03 Dose: 1 unit Hydralazine HCl (Apresoline) 10 mg IVP Q4H PRN PRN Reason: Systolic Blood Pressure Hydromorphone HCl (Dilaudid) 1 mg IVP Q1H PRN PRN Reason: Pain, severe (8-10) Last Admin: 11/29/16 12:30 Dose: 1 mg Potassium Chloride (Potassium Chloride 20 Meq/100 Ml) 20 meq in 100 mls @ 50 mls/hr IVPB DAILY [facility] Last Admin: 11/29/16 09:37 Dose: 50 mls/hr Levetiracetam (Keppra 500mg Ivpb) 500 mg in 100 mls @ 400 mls/hr IV Q12 [facility] Last Admin: 11/29/16 09:33 Dose: 400 mls/hr Potassium Chloride 40 meq/ (Dextrose/Sodium Chloride) 1,020 mls @ 60 mls/hr IV .Q17H [facility] Lisinopril (Zestril) 10 mg PO DAILY [facility] Last Admin: 11/29/16 09:38 Dose: 10 mg Magnesium Oxide (Mag-Ox) 400 mg PO BID [facility] Last Admin: 11/29/16 09:36 Dose: 400 mg Multi-Ingredient Ointment (Hydrophor Oint) 0 gm TOP Q6H PRN PRN Reason: Dry lip Multivitamins (Thera Tab) 1 tab PO 0800 [facility] Last Admin: 11/29/16 09:38 Dose: 1 tab Ondansetron HCl (Zofran Inj) 4 mg IVP Q4H PRN PRN Reason: Nausea/Vomiting Last Admin: 11/24/16 00:05 Dose: 4 mg Petrolatum (Desitin Maximum Strength Topical 40% Oint) 1 gm TOP Q4H PRN PRN Reason: Rash Last Admin: 10/23/16 22:39 Dose: 1 applic Propranolol HCl (Inderal La) 120 mg PO DAILY [facility] Last Admin: 11/29/16 11:48 Dose: Not Given Sucralfate (Carafate Oral Susp) 1 gm PO BID [facility] Last Admin: 11/29/16 09:31 Dose: 1 gm Physical Exam - Constitutional Appears: Cachectic, Chronically Ill - Head Exam Head Exam: NORMOCEPHALIC - Eye Exam Eye Exam: Normal appearance - ENT Exam ENT Exam: Mucous Membranes Moist - Respiratory Exam Respiratory Exam: Decreased Breath Sounds, NORMAL BREATHING PATTERN - Cardiovascular Exam Cardiovascular Exam: REGULAR RHYTHM, +S1, +S2 - GI/Abdominal Exam GI & Abdominal Exam: Normal Bowel Sounds, Soft - Extremities Exam Extremities exam: Positive for: pedal pulses present Additional comments: 2+ bilateral lower extremity - Neurological Exam Neurological exam: Altered - Skin Skin Exam: Dry, Pallor Additional comments: stage 2 sacral decubiti - Additional Findings Additional findings: Palliative performance scale rating 30 % Results - Vital Signs Recent Vital Signs: Last Vital Signs Temp 97.6 F 11/29/16 12:00 Pulse 96 H 11/29/16 12:00 Resp 20 11/29/16 12:00 BP 137/92 H 11/29/16 12:00 Pulse Ox 97 11/29/16 12:00 - Labs Result Diagrams: 11/29/16 07:15 11/29/16 07:15 Labs: Laboratory Results - last 24 hr 11/29/16 11/29/16 11/29/16 07:15 07:15 07:30 WBC 14.9 H RBC 4.75 Hgb 14.6 Hct 45.4 MCV 95.6 MCH 30.7 MCHC 32.2 RDW 18.3 H Plt Count 76 L MPV 12.2 H Gran % 91.5 H Lymph % (Auto) 3.5 L [place] % (Auto) 4.8 Eos % (Auto) 0.1 L Baso % (Auto) 0.1 Gran # 13.65 H Lymph # 0.5 L [place] # 0.7 H Eos # 0.0 Baso # 0.02 PT 12.2 H INR 1.13 H APTT 24.7 Sodium 151 H Potassium 4.1 Chloride 115 H Carbon Dioxide 31 Anion Gap 9 L BUN 13 Creatinine 0.3 L Est GFR ( Amer) > 60 Est GFR (Non-Af Amer) > 60 Random Glucose 113 H Calcium 7.8 L Magnesium 1.8 Total Bilirubin 0.8 AST 11 L ALT 25 Alkaline Phosphatase 405 H Total Protein 4.6 L Albumin 2.0 L Globulin 2.6 Albumin/Globulin Ratio 0.8 L Assessment & Plan - Assessment and Plan (Free Text) Assessment: 61 year old female with colon cancer s/p colostomy admitted with sepsis, pancytopeneia, CASANDRA, GI bled, diarrhea,mucositis, sacral decubiti, altered mental status, r/o CVA. Patients sister Sierra at beside. Spoke with sister about plan for family meeting tomorrow. Explained that team would like to review goals of care and options for discharge plan. Patient's sister extremely angry, not willing to participate in dialogue with me. She did agree to family meeting with team tomorrow. Plan: Advance care planning
--- NOTE | 2016-11-29 14:23 | PN ---
DATE: 11/29/2016 REASON FOR CONSULTATION: Followup tachycardia status post rapid response, moved to ICU, possible CVA, possible metastatic brain lesion. BRIEF CLINIC HISTORY: This is a 61-year-old female with a past medical history of significant for metastatic colon cancer, cauda equina syndrome, status post exploratory laparotomy, lysis of adhesion and colostomy with 2 days ago rapid response, altered mental status. CT scan shows hypodensity suspicious for metastatic versus CVA. The patient is seen here and transferred to ICU. The patient is still disoriented. Denies any chest pain, shortness of breath, any palpitation. PHYSICAL EXAMINATION: As follows; VITAL SIGNS: Temperature blood pressure 138/79. HEENT: PERRLA. Extraocular muscles are intact. NECK: Supple. No carotids or thyromegaly. CHEST: Clear to auscultation. HEART: S1, S2 regular ABDOMEN: Soft. EXTREMITIES: Clubbing or cyanosis negative LABORATORY DATA: Blood workup as follows; WBC 14.9, hemoglobin 14.6, hematocrit 45.4, platelet count 76. Chemistry show sodium 151, potassium 4.1, chloride 115, carbon dioxide 31, anion gap of 9, BUN 31, creatinine 0.3. Total protein 4.6 and albumin 2.0. IMPRESSION: Hypoproteinemia, protein-calorie malnutrition, that was not present any admission. Hypernatremia, anemia, seizure disorder, new onset of seizure, colon cancer with metastasis, status post metastatic colon disease, status post exploratory laparotomy, status post colostomy, status post push enterostomy, altered mental status, tachycardia, resolved anemia, and hypernatremia. RECOMMENDATION: Continue hydration. MRI could be done because of the patient's agitation. Continue supportive care. Overall, the patient's condition is critical. technician terminal and repeater prognosis is guarded. We will follow with you. Thank you Dr. Hendricks for providing opportunity taking care of her. Sherrell Busby MD
[2016-11-29] MEDS: Potassium Chloride 40 MEQ in Dextrose 5%/0.45% NS 1,000 ML IV SCH (14:25)
--- NOTE | 2016-11-29 14:47 | CP.PCM.PN ---
<NAMOMAIRA - Last Filed: 11/29/16 14:43> Subjective - Date & Time of Evaluation Date of Evaluation: 11/29/16 Time of Evaluation: 09:30 - Subjective Subjective: ICU PGY1 Progress Note: Pt seen and examined at bedside. Pt requiring dilaudid 1h for pain. No acute events overnight. Pt awake, alert, not oriented, waxes and wanes, lethargic, moves upper extremities spontaneously. Objective - Vital Signs/Intake and Output Vital Signs (last 24 hours): Temp Pulse Resp BP Pulse Ox 97.6 F 96 H 20 137/92 H 97 11/29/16 12:00 11/29/16 12:00 11/29/16 12:00 11/29/16 12:00 11/29/16 12:00 Intake and Output: 11/29/16 11/29/16 06:59 18:59 Intake Total 820 200 Output Total 1050 Balance -230 200 - Medications Medications: Current Medications Acetaminophen (Tylenol 650 Mg Supp) 650 mg RC Q4H PRN PRN Reason: Fever >100.4 F Last Admin: 11/01/16 21:18 Dose: 650 mg Amlodipine Besylate (Norvasc) 5 mg PO DAILY [facility] Last Admin: 11/29/16 09:36 Dose: 5 mg Collagenase (Santyl) 1 gm TOP BID [facility] Last Admin: 11/29/16 13:43 Dose: 1 applic Al Hydrox/Mg Hydrox/Simethicone 30 ml/Diphenhydramine HCl 75 mg/Lidocaine 30 ml 0 ml PO QID [facility] Last Admin: 11/29/16 09:39 Dose: Not Given Diphenhydramine HCl (Benadryl) 50 mg IVP HS PRN PRN Reason: Insomnia Last Admin: 11/27/16 01:00 Dose: 50 mg Ergocalciferol (Drisdol 50,000 Intl Units Cap) 1 cap PO Q7D [facility] Last Admin: 11/19/16 18:04 Dose: Not Given Ferrous Sulfate (Feosol) 324 mg PO TID [facility] Last Admin: 11/29/16 13:43 Dose: Not Given Fluconazole (Diflucan) 200 mg PO DAILY [facility] PRN Reason: Protocol Stop: 12/12/16 10:01 Last Admin: 11/29/16 09:32 Dose: 200 mg Furosemide (Lasix) 20 mg IVP Q12 [facility] Last Admin: 11/29/16 09:34 Dose: 20 mg Home Med (Home Med) 1 unit PO Q12H PRN PRN Reason: Inflammation Last Admin: 10/18/16 11:03 Dose: 1 unit Hydralazine HCl (Apresoline) 10 mg IVP Q4H PRN PRN Reason: Systolic Blood Pressure Hydromorphone HCl (Dilaudid) 1 mg IVP Q1H PRN PRN Reason: Pain, severe (8-10) Last Admin: 11/29/16 12:30 Dose: 1 mg Potassium Chloride (Potassium Chloride 20 Meq/100 Ml) 20 meq in 100 mls @ 50 mls/hr IVPB DAILY [facility] Last Admin: 11/29/16 09:37 Dose: 50 mls/hr Levetiracetam (Keppra 500mg Ivpb) 500 mg in 100 mls @ 400 mls/hr IV Q12 [facility] Last Admin: 11/29/16 09:33 Dose: 400 mls/hr Potassium Chloride 40 meq/ (Dextrose/Sodium Chloride) 1,020 mls @ 60 mls/hr IV .Q17H [facility] Last Admin: 11/29/16 14:25 Dose: 60 mls/hr Lisinopril (Zestril) 10 mg PO DAILY [facility] Last Admin: 11/29/16 09:38 Dose: 10 mg Magnesium Oxide (Mag-Ox) 400 mg PO BID [facility] Last Admin: 11/29/16 09:36 Dose: 400 mg Multi-Ingredient Ointment (Hydrophor Oint) 0 gm TOP Q6H PRN PRN Reason: Dry lip Multivitamins (Thera Tab) 1 tab PO 0800 [facility] Last Admin: 11/29/16 09:38 Dose: 1 tab Ondansetron HCl (Zofran Inj) 4 mg IVP Q4H PRN PRN Reason: Nausea/Vomiting Last Admin: 11/24/16 00:05 Dose: 4 mg Petrolatum (Desitin Maximum Strength Topical 40% Oint) 1 gm TOP Q4H PRN PRN Reason: Rash Last Admin: 10/23/16 22:39 Dose: 1 applic Propranolol HCl (Inderal La) 120 mg PO DAILY [facility] Last Admin: 11/29/16 11:48 Dose: Not Given Sucralfate (Carafate Oral Susp) 1 gm PO BID [facility] Last Admin: 11/29/16 09:31 Dose: 1 gm - Labs Labs: 11/29/16 07:15 11/29/16 07:15 PT 12.2 Seconds (9.9-11.8) H 11/29/16 07:30 INR 1.13 (0.93-1.08) H 11/29/16 07:30 APTT 24.7 Seconds (23.7-30.8) 11/29/16 07:30 - Constitutional Appears: No Acute Distress - Head Exam Head Exam: ATRAUMATIC, NORMOCEPHALIC - Eye Exam Eye Exam: PERRL - ENT Exam ENT Exam: Mucous Membranes Moist - Respiratory Exam Respiratory Exam: Clear to Ausculation Bilateral - Cardiovascular Exam Cardiovascular Exam: RRR, +S1, +S2. absent: Murmur - GI/Abdominal Exam Additional comments: colostomy bag on left side, sofie on right side c/d/i, no erythema, pus, swelling. - Extremities Exam Extremities Exam: Pedal Edema. absent: Calf Tenderness - Neurological Exam Neurological Exam: Alert, Awake. absent: Oriented x3 Additional comments: Pt lethargic, waxes and wanes, oriented to self. Move upper extremities spontaneously, does not follow commands. GCS 13 (e4v4m5) - Skin Skin Exam: Dry, Warm Assessment and Plan - Assessment and Plan (Free Text) Assessment: 61 yo F with PMHx of metastatic colon cancer and cauda equina syndrome who was recently treated for neutropenic sepsis, fungemia, bacteremia, and lower GI bleed with Max's procedure, admitted to ICU for concern of status epilepticus and airway protection, in the setting of new onset seizures. Pt loaded with Keppra, c/w Keppra per Neuro. EEG shows diffuse slowing, but no seizure activity. Head CT revealed multiple hypodensities concerning for possible CVA as well as possible metatases. No new seizures since. Will obtain head MRI w and w/o contrast to r/o mets. Plan: Neuro -Pt awake, oriented to self, waxes and wanes, on dilaudid 1mg q1h prn for pain. GCS 13 today. -C/w neuro check Q4H -Neuro consult appreciated, partial seizure on 11/27, c/w Keppra 500 bid, will discontinue valproic acid. - No new seizures since. - will avoid overuse of opioids as can decrease threshold of seizures. Reconsider current pain regimen. -Ativan was used to break seizure -CT scan showed multiple hypodense lesions in the brain suspicious for metastatic disease vs CVA - EEG shows diffuse slowing, but no seizure activity. - Obtain head MRI to r/o metstatic dz. Cardio -Maintain MAP >65 -Hemodynamically stable Pulm -Maintain O2 sat >90% GI -PPx GI Cocktail -H/o radiation enteritis s/p max's procedure Nephro -Maintain euvolemia -Replenish electrolyes as needed Endo -Maintain euglycemia Heme/ID -Monitor H/H -afebrile, mild leukocytosis 11.5->15->14.9, likely post seizure. will monitor. -Transfuse PRBC prn -Stage 4 colon cancer s/p Avastin -ID following. C/w Diflucan D2. s/p mycamine and daptomycin for fungemia and bacteremia -Maintain normothermia Pt was seen and discussed with PGY2 and attending, Dr. Centeno. Omaira Borjas, PGY1 <Taryn MARCELINO,[facility] - Last Filed: 11/29/16 16:57> Objective - Vital Signs/Intake and Output Vital Signs (last 24 hours): Temp Pulse Resp BP Pulse Ox 97.2 F L 88 21 149/85 98 11/29/16 16:00 11/29/16 16:00 11/29/16 16:00 11/29/16 16:00 11/29/16 16:00 Intake and Output: 11/29/16 11/29/16 06:59 18:59 Intake Total 820 730 Output Total 1050 420 Balance -230 310 - Medications Medications: Current Medications Acetaminophen (Tylenol 650 Mg Supp) 650 mg RC Q4H PRN PRN Reason: Fever >100.4 F Last Admin: 11/01/16 21:18 Dose: 650 mg Amlodipine Besylate (Norvasc) 5 mg PO DAILY [facility] Last Admin: 11/29/16 09:36 Dose: 5 mg Collagenase (Santyl) 1 gm TOP BID [facility] Last Admin: 11/29/16 13:43 Dose: 1 applic Al Hydrox/Mg Hydrox/Simethicone 30 ml/Diphenhydramine HCl 75 mg/Lidocaine 30 ml 0 ml PO QID [facility] Last Admin: 11/29/16 16:43 Dose: Not Given Diphenhydramine HCl (Benadryl) 50 mg IVP HS PRN PRN Reason: Insomnia Last Admin: 11/27/16 01:00 Dose: 50 mg Ergocalciferol (Drisdol 50,000 Intl Units Cap) 1 cap PO Q7D [facility] Last Admin: 11/19/16 18:04 Dose: Not Given Ferrous Sulfate (Feosol) 324 mg PO TID [facility] Last Admin: 11/29/16 13:43 Dose: Not Given Fluconazole (Diflucan) 200 mg PO DAILY [facility] PRN Reason: Protocol Stop: 12/12/16 10:01 Last Admin: 11/29/16 09:32 Dose: 200 mg Furosemide (Lasix) 20 mg IVP Q12 [facility] Last Admin: 11/29/16 09:34 Dose: 20 mg Home Med (Home Med) 1 unit PO Q12H PRN PRN Reason: Inflammation Last Admin: 10/18/16 11:03 Dose: 1 unit Hydralazine HCl (Apresoline) 10 mg IVP Q4H PRN PRN Reason: Systolic Blood Pressure Hydromorphone HCl (Dilaudid) 1 mg IVP Q1H PRN PRN Reason: Pain, severe (8-10) Last Admin: 11/29/16 14:56 Dose: 1 mg Potassium Chloride (Potassium Chloride 20 Meq/100 Ml) 20 meq in 100 mls @ 50 mls/hr IVPB DAILY [facility] Last Admin: 11/29/16 09:37 Dose: 50 mls/hr Levetiracetam (Keppra 500mg Ivpb) 500 mg in 100 mls @ 400 mls/hr IV Q12 [facility] Last Admin: 11/29/16 09:33 Dose: 400 mls/hr Potassium Chloride 40 meq/ (Dextrose/Sodium Chloride) 1,020 mls @ 60 mls/hr IV .Q17H [facility] Last Admin: 11/29/16 14:25 Dose: 60 mls/hr Lisinopril (Zestril) 10 mg PO DAILY [facility] Last Admin: 11/29/16 09:38 Dose: 10 mg Magnesium Oxide (Mag-Ox) 400 mg PO BID [facility] Last Admin: 11/29/16 09:36 Dose: 400 mg Multi-Ingredient Ointment (Hydrophor Oint) 0 gm TOP Q6H PRN PRN Reason: Dry lip Multivitamins (Thera Tab) 1 tab PO 0800 [facility] Last Admin: 11/29/16 09:38 Dose: 1 tab Ondansetron HCl (Zofran Inj) 4 mg IVP Q4H PRN PRN Reason: Nausea/Vomiting Last Admin: 11/24/16 00:05 Dose: 4 mg Petrolatum (Desitin Maximum Strength Topical 40% Oint) 1 gm TOP Q4H PRN PRN Reason: Rash Last Admin: 10/23/16 22:39 Dose: 1 applic Propranolol HCl (Inderal La) 120 mg PO DAILY [facility] Last Admin: 11/29/16 11:48 Dose: Not Given Sucralfate (Carafate Oral Susp) 1 gm PO BID [facility] Last Admin: 11/29/16 09:31 Dose: 1 gm - Labs Labs: 11/29/16 07:15 11/29/16 07:15 PT 12.2 Seconds (9.9-11.8) H 11/29/16 07:30 INR 1.13 (0.93-1.08) H 11/29/16 07:30 APTT 24.7 Seconds (23.7-30.8) 11/29/16 07:30 Attending/Attestation - Attestation I have personally seen and examined this patient.: Yes I have fully participated in the care of the patient.: Yes I have reviewed all pertinent clinical information, including history, physical exam and plan: Yes Notes (Text): 11/29/16 16:55 61 y/o F w/ End stage Colon CA No further seizures noted. On keppra and Valproic acid. EEg inconclusive. Palliative care / family and providers to set up a family meeting to discuss goals of care and dispo. MRI brain scheduled to evaluate hypodense lesions seen on CT head. dvt p SCD cc time 35 min
--- NOTE | 2016-11-29 16:22 | PN ---
DATE: 11/29/2016 SUBJECTIVE: The patient is seen in the ICU. She is awake, groggy, barely arousable. PHYSICAL EXAMINATION: GENERAL: Elderly lady lying in bed. VITAL SIGNS: Blood pressure 137/92, heart rate 96, respiratory rate 20, temperature 97.6. HEENT: Normocephalic, atraumatic. Positive pallor. NECK: Supple. No JVD. LUNGS: Bilateral equal air entry, no rales. CARDIAC: S1 and S2. Regular rate and rhythm. No murmur. No rubs. ABDOMEN: Obese, distended, soft, positive colostomy. EXTREMITIES: 2 to 3+ pitting edema of the lower extremities. INTAKE AND OUTPUT: 1540/1850. LABORATORY DATA: WBC 14.9, hemoglobin 14.6, hematocrit 45, platelets 76. Sodium 151, potassium 4.1, chloride 111, CO2 of 31, BUN 13, creatinine of 0.3, glucose 113, calcium 7.8, phosphorous not checked, magnesium 1.8, albumin 2.0. Urine culture from 11/24 is gram-negative rohan. MRSA in the nares. CURRENT MEDICATIONS: Hydralazine, Benadryl, Carafate, petrolatum, Diflucan, Dilaudid, Inderal LA, Keppra, Lasix 20 IV q. 12, magnesium oxide, amlodipine 5, D5 normal saline with 40 of potassium, Tylenol. ASSESSMENT: 1. Hypernatremia. 2. Metastatic colon cancer. 3. Status post colostomy. 4. Status post gastrointestinal bleed. 5. Status post seizure. 6. Resolved hypokalemia. 7. Resolved hypomagnesemia. 8. Severe hypoalbuminemia. 9. Status post fungemia. PLAN: 1. Change IV fluids to D5 half-normal saline because the patient is hypernatremic. 2. Continue potassium chloride and IV fluids. 3. Monitor electrolytes. 4. Repeat urine culture, if negative can start hyperal. Adele Griffin MD
[2016-11-30] MEDS: HYDROmorphone 1 mg/ml ISec IVP PRN ×10 (00:13→22:56)
[2016-11-30 06:11] LABS: INR 1.13 (0.93-1.08); PARTIAL THROMBOPLASTIN TIME 29.6 Seconds (23.7-30.8); PROTHROMBIN TIME 12.2 Seconds (9.9-11.8)
[2016-11-30 06:59] LABS: ALB/GLOB RATIO 0.7 (1.1-1.8); ALT/SGPT 25 U/L (7-56); AST/SGOT 14 U/L (15-39); BLOOD UREA NITROGEN 14 mg/dL (7-21); CALCIUM 8.2 mg/dL (8.4-10.5); GFR AFRICAN-AMERICAN > 60; GFR NON-AFRICAN AMERICAN > 60; MAGNESIUM 1.6 mg/dL (1.7-2.2)
--- NOTE | 2016-11-30 07:58 | CP.PCM.PN ---
<Dereje London - Last Filed: 11/30/16 10:10> Subjective - Date & Time of Evaluation Date of Evaluation: 11/30/16 Time of Evaluation: 07:53 - Subjective Subjective: General Surgery Dr. Mccracken Patient seen and examined overnight. No acute events overnight. Patient responded to verbal stimuli but did not respond with coherent speech, just noises. Objective - Vital Signs/Intake and Output Vital Signs (last 24 hours): Temp Pulse Resp BP Pulse Ox 97.6 F 70 28 H 162/69 H 96 11/30/16 04:00 11/30/16 06:00 11/30/16 06:00 11/30/16 06:00 11/30/16 06:00 Intake and Output: 11/30/16 11/30/16 06:59 18:59 Intake Total 820 Output Total 600 Balance 220 - Medications Medications: Current Medications Acetaminophen (Tylenol 650 Mg Supp) 650 mg RC Q4H PRN PRN Reason: Fever >100.4 F Last Admin: 11/01/16 21:18 Dose: 650 mg Amlodipine Besylate (Norvasc) 5 mg PO DAILY [facility] Last Admin: 11/29/16 09:36 Dose: 5 mg Collagenase (Santyl) 1 gm TOP BID [facility] Last Admin: 11/29/16 17:10 Dose: 1 applic Al Hydrox/Mg Hydrox/Simethicone 30 ml/Diphenhydramine HCl 75 mg/Lidocaine 30 ml 0 ml PO QID [facility] Last Admin: 11/29/16 22:00 Dose: Not Given Diphenhydramine HCl (Benadryl) 50 mg IVP HS PRN PRN Reason: Insomnia Last Admin: 11/27/16 01:00 Dose: 50 mg Ergocalciferol (Drisdol 50,000 Intl Units Cap) 1 cap PO Q7D [facility] Last Admin: 11/19/16 18:04 Dose: Not Given Ferrous Sulfate (Feosol) 324 mg PO TID [facility] Last Admin: 11/29/16 17:27 Dose: Not Given Fluconazole (Diflucan) 200 mg PO DAILY [facility] PRN Reason: Protocol Stop: 12/12/16 10:01 Last Admin: 11/29/16 09:32 Dose: 200 mg Furosemide (Lasix) 20 mg IVP Q12 [facility] Last Admin: 11/29/16 21:35 Dose: 20 mg Home Med (Home Med) 1 unit PO Q12H PRN PRN Reason: Inflammation Last Admin: 10/18/16 11:03 Dose: 1 unit Hydralazine HCl (Apresoline) 10 mg IVP Q4H PRN PRN Reason: Systolic Blood Pressure Hydromorphone HCl (Dilaudid) 1 mg IVP Q1H PRN PRN Reason: Pain, severe (8-10) Last Admin: 11/30/16 05:20 Dose: 1 mg Potassium Chloride (Potassium Chloride 20 Meq/100 Ml) 20 meq in 100 mls @ 50 mls/hr IVPB DAILY [facility] Last Admin: 11/29/16 09:37 Dose: 50 mls/hr Levetiracetam (Keppra 500mg Ivpb) 500 mg in 100 mls @ 400 mls/hr IV Q12 [facility] Last Admin: 11/29/16 21:43 Dose: 400 mls/hr Potassium Chloride 40 meq/ (Dextrose/Sodium Chloride) 1,020 mls @ 60 mls/hr IV .Q17H [facility] Last Admin: 11/29/16 14:25 Dose: 60 mls/hr Lisinopril (Zestril) 10 mg PO DAILY [facility] Last Admin: 11/29/16 09:38 Dose: 10 mg Magnesium Oxide (Mag-Ox) 400 mg PO BID [facility] Last Admin: 11/29/16 17:27 Dose: Not Given Multi-Ingredient Ointment (Hydrophor Oint) 0 gm TOP Q6H PRN PRN Reason: Dry lip Multivitamins (Thera Tab) 1 tab PO 0800 [facility] Last Admin: 11/29/16 09:38 Dose: 1 tab Ondansetron HCl (Zofran Inj) 4 mg IVP Q4H PRN PRN Reason: Nausea/Vomiting Last Admin: 11/24/16 00:05 Dose: 4 mg Petrolatum (Desitin Maximum Strength Topical 40% Oint) 1 gm TOP Q4H PRN PRN Reason: Rash Last Admin: 10/23/16 22:39 Dose: 1 applic Propranolol HCl (Inderal La) 120 mg PO DAILY [facility] Last Admin: 11/29/16 11:48 Dose: Not Given Sucralfate (Carafate Oral Susp) 1 gm PO BID [facility] Last Admin: 11/29/16 17:27 Dose: Not Given - Labs Labs: 11/29/16 07:15 11/30/16 05:20 PT 12.2 Seconds (9.9-11.8) H 11/30/16 05:20 INR 1.13 (0.93-1.08) H 11/30/16 05:20 APTT 29.6 Seconds (23.7-30.8) 11/30/16 05:20 - Constitutional Appears: No Acute Distress - Head Exam Head Exam: ATRAUMATIC, NORMOCEPHALIC - Eye Exam Eye Exam: EOMI - ENT Exam ENT Exam: Mucous Membranes Dry - Respiratory Exam Respiratory Exam: NORMAL BREATHING PATTERN. absent: Accessory Muscle Use, Respiratory Distress - Cardiovascular Exam Cardiovascular Exam: REGULAR RHYTHM - GI/Abdominal Exam GI & Abdominal Exam: Soft. absent: Distended Additional comments: Dressing over removed DEEJAY drain site C/D/I. Surgical site, edges are well approximated, no erythema or signs of infection. Ostomy producing dark brown fecal material. - Exam Additional comments: Salazar in place, 1020 output over 24 hours. - Neurological Exam Neurological Exam: Alert, Altered - Skin Skin Exam: Dry, Normal Color, Warm Assessment and Plan - Assessment and Plan (Free Text) Assessment: 61 year old F metastatic colon CA s/p Ex-Lap, NATE, Marquita's day 12 and new onset seizures. Plan: Monitor H+H, AM labs pending, transfuse prn Monitor electrolytes, K - 4.0 today MRI to distinguish between new mets and ischemia recommended per Neuro Pain management, caution with use of narcotics Continue course of abx for fungemia per ID Periodically re-evaluate family's stance on patient's code status. Currently full code. Will discuss with Dr. Kaykay Reyez Lita PGY1 <Yoan Mccracken - Last Filed: 12/03/16 00:01> Objective - Vital Signs/Intake and Output Vital Signs (last 24 hours): Temp Pulse Resp BP Pulse Ox 97.8 F 101 H 18 170/89 H 100 12/02/16 16:00 12/02/16 16:00 12/02/16 16:00 12/02/16 16:00 12/02/16 16:00 Intake and Output: 12/02/16 12/03/16 18:59 06:59 Intake Total 120 Output Total 450 600 Balance -450 -480 - Medications Medications: Current Medications Acetaminophen (Tylenol 650 Mg Supp) 650 mg RC Q4H PRN PRN Reason: Fever >100.4 F Last Admin: 11/01/16 21:18 Dose: 650 mg Al Hydrox/Mg Hydrox/Simethicone 30 ml/Diphenhydramine HCl 75 mg/Lidocaine 30 ml 0 ml PO QID [facility] Last Admin: 12/02/16 21:01 Dose: Not Given Diphenhydramine HCl (Benadryl) 50 mg IVP HS PRN PRN Reason: Insomnia Last Admin: 11/27/16 01:00 Dose: 50 mg Ergocalciferol (Drisdol 50,000 Intl Units Cap) 1 cap PO Q7D [facility] Last Admin: 11/19/16 18:04 Dose: Not Given Ferrous Sulfate (Feosol) 324 mg PO TID [facility] Last Admin: 12/02/16 18:16 Dose: Not Given Fluconazole (Diflucan) 200 mg PO DAILY [facility] PRN Reason: Protocol Stop: 12/12/16 10:01 Last Admin: 12/02/16 09:44 Dose: Not Given Home Med (Home Med) 1 unit PO Q12H PRN PRN Reason: Inflammation Last Admin: 10/18/16 11:03 Dose: 1 unit Hydralazine HCl (Apresoline) 10 mg IVP Q4H PRN PRN Reason: Systolic Blood Pressure Hydromorphone HCl (Dilaudid) 1 mg IVP Q1H PRN PRN Reason: Pain, moderate (4-7) Last Admin: 12/02/16 21:06 Dose: 1 mg Levetiracetam (Keppra 500mg Ivpb) 500 mg in 100 mls @ 400 mls/hr IV Q12 [facility] Last Admin: 12/02/16 21:06 Dose: 400 mls/hr Potassium Chloride/Dextrose (Potassium Chl 40 Meq In D5w) 1,000 mls @ 60 mls/ hr IV .[id number] [facility] Last Admin: 12/02/16 18:17 Dose: Not Given Magnesium Hydroxide (Milk Of Magnesia) 30 ml PO DAILY PRN PRN Reason: skin irritation Last Admin: 12/02/16 14:09 Dose: 30 ml Magnesium Oxide (Mag-Ox) 400 mg PO BID [facility] Last Admin: 12/02/16 18:16 Dose: Not Given Multi-Ingredient Ointment (Hydrophor Oint) 0 gm TOP Q6H PRN PRN Reason: Dry lip Multivitamins (Thera Tab) 1 tab PO 0800 [facility] Last Admin: 12/02/16 08:10 Dose: Not Given Propranolol HCl (Inderal La) 120 mg PO DAILY [facility] Last Admin: 12/02/16 09:44 Dose: Not Given Sucralfate (Carafate Oral Susp) 1 gm PO BID [facility] Last Admin: 12/02/16 18:16 Dose: Not Given - Labs Labs: 12/02/16 06:00 12/02/16 06:00 PT 12.9 Seconds (9.9-11.8) H 12/02/16 06:00 INR 1.19 (0.93-1.08) H 12/02/16 06:00 APTT 32.9 Seconds (23.7-30.8) H 12/02/16 06:00 Assessment and Plan - Assessment and Plan (Free Text) Plan: Patient was seen and examined by me. I agree with assessment and plan as per resident's note.
[2016-11-30 08:00] LABS: EOS % 0.1 % (1.5-5.0); GRAN # 12.63 (1.4-6.5); LYMPH # 0.5 (1.2-3.4); LYMPH % 3.6 % (22.0-35.0); MEAN CELL VOLUME 95.2 fL (80.0-105.0); MEAN CORPUSCULAR HEMOGLOBIN 30.9 pg (25.0-35.0); MEAN CORPUSCULAR HGB CONC 32.4 g/dl (31.0-37.0); MEAN PLATELET VOLUME 11.6 fl (7.0-11.0); MONO # 0.6 (0.1-0.6); MONO % 4.3 % (1.0-6.0); PLATELET COUNT 75 10^3/uL (120.0-450.0); RBC 4.21 10^6/uL (3.5-6.1); RED CELL DISTRIBUTION WIDTH 16.9 % (11.5-14.5); WHITE BLOOD COUNT 13.7 10^3/ul (4.5-11.0)
[2016-11-30] MEDS: Sucralfate 1 gm/10 ml Oral Susp UD PO SCH ×2 (10:01→18:12)
[2016-11-30] MEDS: Propranolol 60 mg ER Cap PO SCH (10:02)
[2016-11-30] MEDS: levETIRAcetam 500mg IVPB 500 MG/100 ML BAG IV SCH (10:06)
[2016-11-30] MEDS: Magnesium Oxide 400 mg Tab UD PO SCH ×2 (10:07→18:12)
[2016-11-30] MEDS: Potassium Chloride 40 MEQ in Dextrose 5%/0.45% NS 1,000 ML IV SCH (10:10)
--- NOTE | 2016-11-30 10:14 | CP.PCM.PN ---
Subjective - Date & Time of Evaluation Date of Evaluation: 11/30/16 Time of Evaluation: 09:20 - Subjective Subjective: Trying to communicate but is unintelligible, weak looking, no fevers overnight. Objective - Vital Signs/Intake and Output Vital Signs (last 24 hours): Temp Pulse Resp BP Pulse Ox 97.6 F 70 28 H 162/69 H 96 11/30/16 04:00 11/30/16 06:00 11/30/16 06:00 11/30/16 06:00 11/30/16 06:00 Intake and Output: 11/30/16 11/30/16 06:59 18:59 Intake Total 820 Output Total 600 Balance 220 - Medications Medications: Current Medications Acetaminophen (Tylenol 650 Mg Supp) 650 mg RC Q4H PRN PRN Reason: Fever >100.4 F Last Admin: 11/01/16 21:18 Dose: 650 mg Amlodipine Besylate (Norvasc) 5 mg PO DAILY [facility] Last Admin: 11/29/16 09:36 Dose: 5 mg Collagenase (Santyl) 1 gm TOP BID [facility] Last Admin: 11/29/16 17:10 Dose: 1 applic Al Hydrox/Mg Hydrox/Simethicone 30 ml/Diphenhydramine HCl 75 mg/Lidocaine 30 ml 0 ml PO QID [facility] Last Admin: 11/29/16 22:00 Dose: Not Given Diphenhydramine HCl (Benadryl) 50 mg IVP HS PRN PRN Reason: Insomnia Last Admin: 11/27/16 01:00 Dose: 50 mg Ergocalciferol (Drisdol 50,000 Intl Units Cap) 1 cap PO Q7D [facility] Last Admin: 11/19/16 18:04 Dose: Not Given Ferrous Sulfate (Feosol) 324 mg PO TID [facility] Last Admin: 11/29/16 17:27 Dose: Not Given Fluconazole (Diflucan) 200 mg PO DAILY [facility] PRN Reason: Protocol Stop: 12/12/16 10:01 Last Admin: 11/29/16 09:32 Dose: 200 mg Furosemide (Lasix) 20 mg IVP Q12 [facility] Last Admin: 11/29/16 21:35 Dose: 20 mg Home Med (Home Med) 1 unit PO Q12H PRN PRN Reason: Inflammation Last Admin: 10/18/16 11:03 Dose: 1 unit Hydralazine HCl (Apresoline) 10 mg IVP Q4H PRN PRN Reason: Systolic Blood Pressure Hydromorphone HCl (Dilaudid) 1 mg IVP Q1H PRN PRN Reason: Pain, severe (8-10) Last Admin: 11/30/16 05:20 Dose: 1 mg Potassium Chloride (Potassium Chloride 20 Meq/100 Ml) 20 meq in 100 mls @ 50 mls/hr IVPB DAILY [facility] Last Admin: 11/29/16 09:37 Dose: 50 mls/hr Levetiracetam (Keppra 500mg Ivpb) 500 mg in 100 mls @ 400 mls/hr IV Q12 [facility] Last Admin: 11/29/16 21:43 Dose: 400 mls/hr Potassium Chloride 40 meq/ (Dextrose/Sodium Chloride) 1,020 mls @ 60 mls/hr IV .Q17H [facility] Last Admin: 11/29/16 14:25 Dose: 60 mls/hr Lisinopril (Zestril) 10 mg PO DAILY [facility] Last Admin: 11/29/16 09:38 Dose: 10 mg Magnesium Oxide (Mag-Ox) 400 mg PO BID [facility] Last Admin: 11/29/16 17:27 Dose: Not Given Multi-Ingredient Ointment (Hydrophor Oint) 0 gm TOP Q6H PRN PRN Reason: Dry lip Multivitamins (Thera Tab) 1 tab PO 0800 [facility] Last Admin: 11/29/16 09:38 Dose: 1 tab Ondansetron HCl (Zofran Inj) 4 mg IVP Q4H PRN PRN Reason: Nausea/Vomiting Last Admin: 11/24/16 00:05 Dose: 4 mg Petrolatum (Desitin Maximum Strength Topical 40% Oint) 1 gm TOP Q4H PRN PRN Reason: Rash Last Admin: 10/23/16 22:39 Dose: 1 applic Propranolol HCl (Inderal La) 120 mg PO DAILY [facility] Last Admin: 11/29/16 11:48 Dose: Not Given Sucralfate (Carafate Oral Susp) 1 gm PO BID [facility] Last Admin: 11/29/16 17:27 Dose: Not Given - Labs Labs: 11/30/16 05:20 11/30/16 05:20 PT 12.2 Seconds (9.9-11.8) H 11/30/16 05:20 INR 1.13 (0.93-1.08) H 11/30/16 05:20 APTT 29.6 Seconds (23.7-30.8) 11/30/16 05:20 - Constitutional Appears: Chronically Ill - Head Exam Head Exam: NORMAL INSPECTION - Neck Exam Neck Exam: absent: Meningismus - Respiratory Exam Respiratory Exam: Decreased Breath Sounds - Cardiovascular Exam Cardiovascular Exam: +S1, +S2 - GI/Abdominal Exam GI & Abdominal Exam: Soft. 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 metastatic lesions S/P Methicillin-resistant coagulase negative staph in repeat blood cx bottle, consider bacteremia R/O secondary to PICC line R/O contamination (since only 1 of 4 bottles were positive for the organism) gram negative bacilli in the urine in a patient with Minor catheter - minor catheter has been removed Partial small bowel obstruction, persistent with colonic stricture S/P exploratory laparotomy, lysis of adhesions, repair of small bowel enterotomy and partial sigmoidectomy with end-colostomy Acute stomatitis and mucositis, as well as esophageal ulcers (esophagitis) and enteritis - no CMV noted on biopsy sample of the esophageal ulcers - consider Susy Esophagitis Neutropenia probably from chemotherapy, resolved HTN 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
[2016-11-30] MEDS: Aluminum Hydroxide/Magnesium 30 ML, DiphenhydrAMINE 75 MG, Lidocaine 2% Viscous 30 ML PO SCH ×3 (10:16→18:12)
[2016-11-30] MEDS: Multivitamin Therapeutic Tab PO SCH (10:16)
--- NOTE | 2016-11-30 10:36 | CP.PCM.PN ---
Subjective - Date & Time of Evaluation Date of Evaluation: 11/30/16 Time of Evaluation: 08:20 - Subjective Subjective: S&E , chart reviewed, no report of acute overnight events. Patient is lethargic but opens eyes to verbal stimuli and touch, no verbal. No reports of overt GI bleeding. Objective - Vital Signs/Intake and Output Vital Signs (last 24 hours): Temp Pulse Resp BP Pulse Ox 97.6 F 70 28 H 156/72 H 96 11/30/16 04:00 11/30/16 06:00 11/30/16 06:00 11/30/16 10:06 11/30/16 06:00 Intake and Output: 11/30/16 11/30/16 06:59 18:59 Intake Total 820 Output Total 600 Balance 220 - Medications Medications: Current Medications Acetaminophen (Tylenol 650 Mg Supp) 650 mg RC Q4H PRN PRN Reason: Fever >100.4 F Last Admin: 11/01/16 21:18 Dose: 650 mg Amlodipine Besylate (Norvasc) 5 mg PO DAILY [facility] Last Admin: 11/30/16 10:07 Dose: Not Given Al Hydrox/Mg Hydrox/Simethicone 30 ml/Diphenhydramine HCl 75 mg/Lidocaine 30 ml 0 ml PO QID [facility] Last Admin: 11/30/16 10:16 Dose: Not Given Diphenhydramine HCl (Benadryl) 50 mg IVP HS PRN PRN Reason: Insomnia Last Admin: 11/27/16 01:00 Dose: 50 mg Ergocalciferol (Drisdol 50,000 Intl Units Cap) 1 cap PO Q7D [facility] Last Admin: 11/19/16 18:04 Dose: Not Given Ferrous Sulfate (Feosol) 324 mg PO TID [facility] Last Admin: 11/30/16 10:02 Dose: Not Given Fluconazole (Diflucan) 200 mg PO DAILY [facility] PRN Reason: Protocol Stop: 12/12/16 10:01 Last Admin: 11/30/16 10:02 Dose: Not Given Furosemide (Lasix) 20 mg IVP Q12 [facility] Last Admin: 11/30/16 10:06 Dose: 20 mg Home Med (Home Med) 1 unit PO Q12H PRN PRN Reason: Inflammation Last Admin: 10/18/16 11:03 Dose: 1 unit Hydralazine HCl (Apresoline) 10 mg IVP Q4H PRN PRN Reason: Systolic Blood Pressure Hydromorphone HCl (Dilaudid) 1 mg IVP Q1H PRN PRN Reason: Pain, severe (8-10) Last Admin: 11/30/16 10:17 Dose: 1 mg Potassium Chloride (Potassium Chloride 20 Meq/100 Ml) 20 meq in 100 mls @ 50 mls/hr IVPB DAILY [facility] Last Admin: 11/30/16 10:07 Dose: 50 mls/hr Levetiracetam (Keppra 500mg Ivpb) 500 mg in 100 mls @ 400 mls/hr IV Q12 [facility] Last Admin: 11/30/16 10:06 Dose: 400 mls/hr Potassium Chloride 40 meq/ (Dextrose/Sodium Chloride) 1,020 mls @ 60 mls/hr IV .Q17H [facility] Last Admin: 11/30/16 10:10 Dose: 60 mls/hr Lisinopril (Zestril) 10 mg PO DAILY [facility] Last Admin: 11/30/16 10:16 Dose: Not Given Magnesium Oxide (Mag-Ox) 400 mg PO BID [facility] Last Admin: 11/30/16 10:07 Dose: Not Given Multi-Ingredient Ointment (Hydrophor Oint) 0 gm TOP Q6H PRN PRN Reason: Dry lip Multivitamins (Thera Tab) 1 tab PO 0800 [facility] Last Admin: 11/30/16 10:16 Dose: Not Given Petrolatum (Desitin Maximum Strength Topical 40% Oint) 1 gm TOP Q4H PRN PRN Reason: Rash Last Admin: 10/23/16 22:39 Dose: 1 applic Propranolol HCl (Inderal La) 120 mg PO DAILY [facility] Last Admin: 11/30/16 10:02 Dose: Not Given Sucralfate (Carafate Oral Susp) 1 gm PO BID [facility] Last Admin: 11/30/16 10:01 Dose: Not Given - Labs Labs: 11/30/16 05:20 11/30/16 05:20 PT 12.2 Seconds (9.9-11.8) H 11/30/16 05:20 INR 1.13 (0.93-1.08) H 11/30/16 05:20 APTT 29.6 Seconds (23.7-30.8) 11/30/16 05:20 - Constitutional Appears: No Acute Distress, Chronically Ill - Head Exam Head Exam: NORMAL INSPECTION - Eye Exam Eye Exam: Normal appearance. absent: Scleral icterus - ENT Exam ENT Exam: Mucous Membranes Moist - Neck Exam Neck Exam: Normal Inspection - Respiratory Exam Respiratory Exam: Decreased Breath Sounds, NORMAL BREATHING PATTERN. absent: Respiratory Distress - Cardiovascular Exam Cardiovascular Exam: +S1, +S2 - GI/Abdominal Exam GI & Abdominal Exam: Distended, Soft, Tenderness, Normal Bowel Sounds. absent: Guarding, Rebound Additional comments: (+) left colostomy, stoma pink, no stool noted, no bleeding. incision dry and intact w/sofie - Extremities Exam Extremities Exam: Pedal Edema. absent: Calf Tenderness Additional comments: SCD on - Neurological Exam Neurological Exam: Altered - Skin Skin Exam: Dry, Warm Assessment and Plan - Assessment and Plan (Free Text) Assessment: ASSESSMENT: New Onset Seizures R/O Brain metastasis,ct scan reveal hypodensities right cerebellum and bilateral occipita Metastatic Stage IV Colon Cancer S/P Exploratory laparotomy with lysis of adhesions and repair of small bowel enterotomy and partial sigmoidectomy with end colostomy GI Bleed, S/P push enteroscopy: negative for bleed Anemia with multiple blood transfusions Elevated LFT, mainly alk phos, abdominal US done, 6/ (+) sludge, no GB stones, CBD 5.0 cm, maybe medication induced, improving Fungemia PLAN: pending MRI, POx MRI repaired, plan to be done this am On oral Duflucan Iron supplements IVF for hydration Clear Liquids when alert, aspiration precaution On Keppra/Valproate Sodium monitor cbc, electrolytes neurology following seizure precautions Seen and discussed with Dr. Null.
[2016-11-30] MEDS ORDERED: DiphenhydrAMINE 50 mg/ml Inj IVP STA (11:32)
[2016-11-30] MEDS ORDERED: Gadodiamide 287 MG/ML VIAL (15ML) IV ONE (12:05)
[2016-11-30] MEDS ORDERED: Magnesium Sulfate 1 gm in D5W 1 GM/100 ML BAG IVPB ONE (12:27)
--- NOTE | 2016-11-30 13:25 | CP.PCM.PN ---
Subjective - Date & Time of Evaluation Date of Evaluation: 11/30/16 Time of Evaluation: 13:22 - Subjective Subjective: PGY-[address] Hendricks Pt seen at 7am Arousable by light touch. Did not follow command. VSS on montor No acute event overnight per RN or per monitor Objective - Vital Signs/Intake and Output Vital Signs (last 24 hours): Temp Pulse Resp BP Pulse Ox 97.6 F 70 28 H 156/72 H 96 11/30/16 04:00 11/30/16 06:00 11/30/16 06:00 11/30/16 10:06 11/30/16 06:00 Intake and Output: 11/30/16 11/30/16 06:59 18:59 Intake Total 820 Output Total 600 Balance 220 - Medications Medications: Current Medications Acetaminophen (Tylenol 650 Mg Supp) 650 mg RC Q4H PRN PRN Reason: Fever >100.4 F Last Admin: 11/01/16 21:18 Dose: 650 mg Amlodipine Besylate (Norvasc) 5 mg PO DAILY [facility] Last Admin: 11/30/16 10:07 Dose: Not Given Al Hydrox/Mg Hydrox/Simethicone 30 ml/Diphenhydramine HCl 75 mg/Lidocaine 30 ml 0 ml PO QID [facility] Last Admin: 11/30/16 13:15 Dose: Not Given Diphenhydramine HCl (Benadryl) 50 mg IVP HS PRN PRN Reason: Insomnia Last Admin: 11/27/16 01:00 Dose: 50 mg Ergocalciferol (Drisdol 50,000 Intl Units Cap) 1 cap PO Q7D [facility] Last Admin: 11/19/16 18:04 Dose: Not Given Ferrous Sulfate (Feosol) 324 mg PO TID [facility] Last Admin: 11/30/16 13:12 Dose: Not Given Fluconazole (Diflucan) 200 mg PO DAILY [facility] PRN Reason: Protocol Stop: 12/12/16 10:01 Last Admin: 11/30/16 10:02 Dose: Not Given Furosemide (Lasix) 20 mg IVP Q12 [facility] Last Admin: 11/30/16 10:06 Dose: 20 mg Home Med (Home Med) 1 unit PO Q12H PRN PRN Reason: Inflammation Last Admin: 10/18/16 11:03 Dose: 1 unit Hydralazine HCl (Apresoline) 10 mg IVP Q4H PRN PRN Reason: Systolic Blood Pressure Hydromorphone HCl (Dilaudid) 1 mg IVP Q1H PRN PRN Reason: Pain, severe (8-10) Last Admin: 11/30/16 11:20 Dose: 1 mg Levetiracetam (Keppra 500mg Ivpb) 500 mg in 100 mls @ 400 mls/hr IV Q12 [facility] Last Admin: 11/30/16 10:06 Dose: 400 mls/hr Potassium Chloride 40 meq/ (Dextrose/Sodium Chloride) 1,020 mls @ 60 mls/hr IV .Q17H [facility] Last Admin: 11/30/16 10:10 Dose: 60 mls/hr Magnesium Sulfate/Dextrose (Magnesium Sulfate 1 Gm/100 Ml D5w) 1 gm in 100 mls @ 100 mls/hr IVPB ONCE ONE Stop: 11/30/16 13:26 Last Admin: 11/30/16 13:14 Dose: 100 mls/hr Lisinopril (Zestril) 10 mg PO DAILY [facility] Last Admin: 11/30/16 10:16 Dose: Not Given Magnesium Oxide (Mag-Ox) 400 mg PO BID [facility] Last Admin: 11/30/16 10:07 Dose: Not Given Multi-Ingredient Ointment (Hydrophor Oint) 0 gm TOP Q6H PRN PRN Reason: Dry lip Multivitamins (Thera Tab) 1 tab PO 0800 [facility] Last Admin: 11/30/16 10:16 Dose: Not Given Petrolatum (Desitin Maximum Strength Topical 40% Oint) 1 gm TOP Q4H PRN PRN Reason: Rash Last Admin: 10/23/16 22:39 Dose: 1 applic Propranolol HCl (Inderal La) 120 mg PO DAILY [facility] Last Admin: 11/30/16 10:02 Dose: Not Given Sucralfate (Carafate Oral Susp) 1 gm PO BID [facility] Last Admin: 11/30/16 10:01 Dose: Not Given - Labs Labs: 11/30/16 05:20 11/30/16 05:20 PT 12.2 Seconds (9.9-11.8) H 11/30/16 05:20 INR 1.13 (0.93-1.08) H 11/30/16 05:20 APTT 29.6 Seconds (23.7-30.8) 11/30/16 05:20 - Constitutional Appears: Cachectic, Chronically Ill - Head Exam Head Exam: ATRAUMATIC, NORMAL INSPECTION, NORMOCEPHALIC - Eye Exam Eye Exam: PERRL. absent: Scleral icterus - ENT Exam ENT Exam: Mucous Membranes Moist - Respiratory Exam Respiratory Exam: Decreased Breath Sounds (lung bases), Clear to Ausculation Bilateral. absent: Rales, Rhonchi, Wheezes - Cardiovascular Exam Cardiovascular Exam: REGULAR RHYTHM, +S1, +S2 - GI/Abdominal Exam GI & Abdominal Exam: Soft, Hypoactive Bowel Sounds Additional comments: ostomy bag with dark, semi-formed stool, skin slightly erythema - Extremities Exam Extremities Exam: Pedal Edema - Neurological Exam Additional comments: arousable only to touch. GCS 10-11 - Skin Skin Exam: Dry, Warm Assessment and Plan - Assessment and Plan (Free Text) Plan: 61 F admitted on 10/09/16 with sepsis post chemotherapy with 2 cycles of FOLFOX based chemotherapy with Avastin. The hospital course was complicated by anemia due to GI bleeding requiring transfusion and fungemia/bactermia with Port removal (11/14/16). L picc was placed on 10/31/16 which was not replaced due to coagulopathy and bleeding. 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 2 EMPLOYEE DEVELOPMENT MANAGER was called (11/27) for blurry vision turned blank stair, which later turned tonic-clonic movements. During EMPLOYEE DEVELOPMENT MANAGER, she was responsive to only painful stimuli. Left sided facial droop was experienced. Pt was trasnferred to ICU, now downgraded to remote telemetry. Plan: Mentation decreases due to stroke. On Seizure precaution. [facility]is in Palliative and Dr. Hendricks have met for 45 minutes. Pt remains full code. Altered Mental Status - seizure due to stroke - MRI/MRA pending official read - Keppra IV bid - noncontrast CT of the head: CT head on 11/27 with encephalomalacia, ct scan reveal hypodensities right cerebellum and bilateral occipital, which were there before compared to CT of the head from 10/11/16. - noncontrast chest abdomen, pelvis CT - LActate 2.7 - EEG - Palliative Hb drops from 13 (s/p 4u pRBC) to 11. 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 Hold Durgesic - Per Dr Hendricks, do not add more pain meds now. Maintain at current pain regimen. Upper GI bleed s/p EGD with push enteroscopy <-- EGD <-- bleeding scan x 2 ( negative) - No source of bleeding at examined duodedeum and jejunum - Propranolol 120 - Consider intraoperative enteroscopy or outpatient capsule endoscopy. 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 end-colostomy Susy esophagitis Pathology: Poorly differentiated colorectal adenocarcinoma metasiasis to bowel wall and serosa and one resection margin. 3/5 lymph nodes positive for metastasis - Microstaellite stable (08/13/16). Has ruled out rollins syndrome Sepsis due to C. albicans Fungemia, probably from port-a-cath Bacteremia with methicillin-resistant coagulase negative staph in repeated cx Gram negative bacilli in urine with minor - minor removed (11/24) Nose culture coagulase neg staphylococcus (11/24) - continue mycamine (day 14 since port removal) - Then switch to PO diflucan for another 2 weeks for total of 4 week antifungal tx - Off daptomycin for bactermeia r/o picc, r/o contamination (1/4 bottles) - repeated urine cx negative - observe off abx - Hold valganciclovir, no CMV on esophagus ulcer Severe hypokalemia Hypernatermia Severe malnutrition, albumin 2.0 Hypomandnesemia - replete as needed - Ensure 3 can/day - Mag-Ox 400mg BID - KCL piggybag daily - D5/NS with KCl 40 @ 100 Edema - lasix 20q12 Prophylasix - SCD, sucralfate BID s/r/d/w Dr. Hendricks
--- NOTE | 2016-11-30 13:40 | MRI ---
PROCEDURE: MRI BRAIN WITH AND WITHOUT CONTRAST HISTORY: mets stroke COMPARISON: None. TECHNIQUE: Multiplanar, multisequence MR images of the brain were obtained with and without intravenous contrast enhancement. FINDINGS: HEMORRHAGE: Hemosiderin is detected within a moderate sized lesion at the left except low but also a small lesion of the right cerebellum. The right tube builder airplane lesion enhances brightly on gadolinium-enhanced T1 weighted images. Limited enhancement is seen related to the left occipital lesion. Trace subdural hemorrhage is also seen at the falx superiorly extending laterally into the parietal dural spaces well minimally. These measure only on the order of 3-4 mm thickness in each case, with no mass effect DWI: Restricted diffusion is identified involving a large portion of the left parietal lobe with significant mass effect identified in the same distribution suspicious for an acute or subacute brain infarction. Tumor infiltration is the differential diagnosis. BRAIN PARENCHYMA: There is a 3.0 x 3.0 by 3.9 cm (transverse by anteroposterior by superoinferior dimensions) lesion at the left occipital lobe which exhibits exuberant local reaction and moderate local mass effect without midline shift. The sulci are effaced as well as the posterior portion of the left lateral ventricle atrium. Second lesions identified measuring 1.1 x 1.2 x 1.2 cm at the right cerebellum superiorly also with significant local reactive changes but limited mass effect. Abnormal edema is appreciated the right temporooccipital distribution without definite focal mass identifiable at this time there is a 3rd area suspicious for additional but nonvisualized mass of the posterior left frontal lobe where subcortical edema is present but minimal. There is 2-3 additional foci at the right frontal vertex suspicious for the same. Following intravenous contrast administration, motion artifacts degrade most of this post gadolinium-enhanced sequences. There is definitive enhanced identified at the right cerebellar lesion, borderline for left parietal mass. Left parietal lesion is suspicious for a metastatic focus with marked necrosis or possibly hemorrhagic focus at least 10 days to 2 weeks post hemorrhage. Finally, there is abnormal pontine signal suspicious for potential metastasis or subacute to early chronic lacunar infarction. ENHANCEMENT: Discussed above. VENTRICLES: Unremarkable. No hydrocephalus. CRANIUM: Unremarkable. ORBITS: Grossly unremarkable. PARANASAL SINUSES/MASTOIDS: Clear VASCULAR SYSTEM: Skull base flow voids intact. OTHER FINDINGS: None . IMPRESSION: 1. 0.2 cm enhancing mass with moderate local edema seen the right cerebral hemisphere most compatible with a metastatic lesion, particularly given other areas of abnormal signal in the cerebral hemorrhage in the cerebellar hemispheres. Trace enhancement associated with a larger lesion in the left occipital lobe measuring 3.9 cm greatest dimension. Further, abnormal versus restricted diffusion is associated with this lesion and in the parietal and septal results temporal local parenchyma suspicious for probable subacute brain infarction. This may represent an ischemic infarction that has converted to hemorrhage in part. As an alternative, glioma ptosis with invasion into the left temporal and parietal lobes may simulate infarction. 2. Trace subdural hemorrhages seen in the left parieto-occipital distribution without mass effect. 3. Multiple additional areas of long TR signal abnormality without contrast and enhancement or hemorrhage are seen at the bilateral frontal right temporooccipital regions as well as the brainstem suspicious but not definitive for early metastases. Chronic microangiopathy is felt to be less likely. MR follow-up is advised. Findings discussed with Dr. Salazar 11/30/2016 13:25.
--- NOTE | 2016-11-30 13:46 | MRI ---
PROCEDURE: Magnetic Resonance Angiography Brain HISTORY: brain mets vs stroke COMPARISON: None available. TECHNIQUE: 3D time of flight MR angiography of the intracranial arteries was performed. Rotating maximum intensity projection images were generated. FINDINGS: INTERNAL CEREBRAL ARTERIES: Unremarkable. The skull base, petrous, cavernous and supraclinoid segments are bilaterally widely patient. ANTERIOR CEREBRAL ARTERIES: A right A1 JEREMIAH are segments identified, appearing patent. Left A1 and bilateral A2 segments are widely patent. Smaller distal branches unremarkable, as visualized. Anterior communicating artery appears unremarkable MIDDLE CEREBRAL ARTERIES: Unremarkable. M1 and M2 segments are widely patent. Perisylvian branches grossly symmetric. POSTERIOR CIRCULATION: Basilar Artery: Unremarkable. The posterior communicating arteries are also unremarkable bilaterally. Distal Vertebral Arteries: Unremarkable. Posterior Cerebral Arteries: Unremarkable. Posterior Inferior Cerebellar Arteries: Unremarkable. ANEURYSM/ VASCULAR MALFORMATIONS: None. OTHER FINDINGS: None. IMPRESSION: Unremarkable MR angiography of the brain.
--- NOTE | 2016-11-30 13:49 | PN ---
DATE: 11/30/2016 REASON FOR CONSULTATION AND FOLLOWUP: She is status post rapid response, moved to ICU, possible CVA, possible metastatic brain lesion seizure disorders new onset. The patient is lying flat. Denies any chest pain and got sedation recently and on morphine, complaining of pain in the abdomen. PHYSICAL EXAMINATION: As follows; VITAL SIGNS: Temperature is afebrile, heart rate is 70, blood pressure is 141/60. HEENT: PERRLA. Extraocular muscles are intact. NECK: Supple. No carotid bruit or thyromegaly. CHEST: Clear to auscultation. CARDIOPULMONARY: Heart, S1 and S2, regular. ABDOMEN: Soft and colostomy is in place. LABORATORY DATA: Blood workup as follows: WBC of 13.7, , hemoglobin of 13, hematocrit of 40.1 and platelet count of 75. Chemistry showed sodium of 150, potassium of 4, chloride of 115, carbon dioxide of 39, anion gap of 8, BUN of 14, and creatinine of 0.4. Total protein of 4.8, albumin of 2, and albumin-globulin ratio is 0.7. IMPRESSION: This 61-year-old female with history of colon cancer admitted with watery diarrhea, gastrointestinal bleed, partial obstruction, subsequently the patient underwent a exploratory laparotomy, lysis of adhesions of colon and colostomy. The patient less than 2 hours had a rapid response and altered mental status. CAT scan of hypodense area consist of with either cerebrovascular accident versus brain metastases. The MRI was attempted twice, but the patient was agitated, still could not be done as of yet. The patient confused, still complaining of the pain, the sinus tachycardia which is improved on beta-elena, multifactorial anemia protein calorie malnutrition will not present on admission. RECOMMENDATIONS: Follow up with neurology, continue beta elena, continue p.r.n. hydralazine, continue the patient's condition is critical and long-term prognosis is guarded. Waiting for MRI, will be attempted today if the patient can still do differentiate between metastatic lesion versus CVA. Then continue neuro follow up and anti seizure medication. Overall, the patient's condition is critical and long-term prognosis is extremely guarded. We will follow with you. Thank you Dr. Hendricks for providing opportunity taking care of the patient,Arthur for hypernatremia, the patient with IV fluid. Sherrell Busby MD
--- NOTE | 2016-11-30 14:41 | CP.PCM.PN ---
Subjective - Date & Time of Evaluation Date of Evaluation: 11/30/16 Time of Evaluation: 14:00 - Subjective Subjective: Somnolent, no acute changes Objective - Vital Signs/Intake and Output Vital Signs (last 24 hours): Temp Pulse Resp BP Pulse Ox 97.5 F L 94 H 15 150/80 100 11/30/16 12:00 11/30/16 13:00 11/30/16 13:00 11/30/16 13:00 11/30/16 13:00 Intake and Output: 11/30/16 11/30/16 06:59 18:59 Intake Total 820 Output Total 600 Balance 220 - Medications Medications: Current Medications Acetaminophen (Tylenol 650 Mg Supp) 650 mg RC Q4H PRN PRN Reason: Fever >100.4 F Last Admin: 11/01/16 21:18 Dose: 650 mg Amlodipine Besylate (Norvasc) 5 mg PO DAILY [facility] Last Admin: 11/30/16 10:07 Dose: Not Given Al Hydrox/Mg Hydrox/Simethicone 30 ml/Diphenhydramine HCl 75 mg/Lidocaine 30 ml 0 ml PO QID [facility] Last Admin: 11/30/16 13:15 Dose: Not Given Diphenhydramine HCl (Benadryl) 50 mg IVP HS PRN PRN Reason: Insomnia Last Admin: 11/27/16 01:00 Dose: 50 mg Ergocalciferol (Drisdol 50,000 Intl Units Cap) 1 cap PO Q7D [facility] Last Admin: 11/19/16 18:04 Dose: Not Given Ferrous Sulfate (Feosol) 324 mg PO TID [facility] Last Admin: 11/30/16 13:12 Dose: Not Given Fluconazole (Diflucan) 200 mg PO DAILY [facility] PRN Reason: Protocol Stop: 12/12/16 10:01 Last Admin: 11/30/16 10:02 Dose: Not Given Furosemide (Lasix) 20 mg IVP Q12 [facility] Last Admin: 11/30/16 10:06 Dose: 20 mg Home Med (Home Med) 1 unit PO Q12H PRN PRN Reason: Inflammation Last Admin: 10/18/16 11:03 Dose: 1 unit Hydralazine HCl (Apresoline) 10 mg IVP Q4H PRN PRN Reason: Systolic Blood Pressure Hydromorphone HCl (Dilaudid) 1 mg IVP Q1H PRN PRN Reason: Pain, severe (8-10) Last Admin: 11/30/16 11:20 Dose: 1 mg Levetiracetam (Keppra 500mg Ivpb) 500 mg in 100 mls @ 400 mls/hr IV Q12 [facility] Last Admin: 11/30/16 10:06 Dose: 400 mls/hr Potassium Chloride 40 meq/ (Dextrose/Sodium Chloride) 1,020 mls @ 60 mls/hr IV .Q17H [facility] Last Admin: 11/30/16 10:10 Dose: 60 mls/hr Lisinopril (Zestril) 10 mg PO DAILY [facility] Last Admin: 11/30/16 10:16 Dose: Not Given Magnesium Oxide (Mag-Ox) 400 mg PO BID [facility] Last Admin: 11/30/16 10:07 Dose: Not Given Multi-Ingredient Ointment (Hydrophor Oint) 0 gm TOP Q6H PRN PRN Reason: Dry lip Multivitamins (Thera Tab) 1 tab PO 0800 [facility] Last Admin: 11/30/16 10:16 Dose: Not Given Petrolatum (Desitin Maximum Strength Topical 40% Oint) 1 gm TOP Q4H PRN PRN Reason: Rash Last Admin: 10/23/16 22:39 Dose: 1 applic Propranolol HCl (Inderal La) 120 mg PO DAILY [facility] Last Admin: 11/30/16 10:02 Dose: Not Given Sucralfate (Carafate Oral Susp) 1 gm PO BID [facility] Last Admin: 11/30/16 10:01 Dose: Not Given - Labs Labs: 11/30/16 05:20 11/30/16 05:20 PT 12.2 Seconds (9.9-11.8) H 11/30/16 05:20 INR 1.13 (0.93-1.08) H 11/30/16 05:20 APTT 29.6 Seconds (23.7-30.8) 11/30/16 05:20 - Constitutional Appears: Cachectic, Chronically Ill - Eye Exam Eye Exam: PERRL - ENT Exam ENT Exam: Mucous Membranes Moist - Respiratory Exam Respiratory Exam: Decreased Breath Sounds, NORMAL BREATHING PATTERN - Cardiovascular Exam Cardiovascular Exam: REGULAR RHYTHM, +S1 - GI/Abdominal Exam GI & Abdominal Exam: Soft, Diminished Bowel Sounds Additional comments: colostomy stoma pink - Extremities Exam Additional comments: bilateral lower extremity edema - Neurological Exam Neurological Exam: Altered - Skin Skin Exam: Dry, Pallor Assessment and Plan - Assessment and Plan (Free Text) Assessment: 61 year old female with history of metastatic colon cancer admitted with pancytopneia, sepsis, CASANDRA, GI bleed s/p colon resection with colostomy. Family meeting scheduled to discuss goals of care. Dr. Janki Hendricks, John Moreno RN and myself met with patients mother, father, sister and brother. Dr Hendricks gave an extensive review of patient's illness, prognosis. Families questions answered.Family encouraged to revisit resuscitation status. Ramifications of aggressive resuscitation explained. Plan: Palliative support Advance care planning
--- NOTE | 2016-11-30 17:23 | PN ---
DATE: 11/30/2016 SUBJECTIVE: The patient is seen lying in bed in the ICU, she is very lethargic. She is barely arousable. She is moaning. Does not appear to be tolerating anything p.o. PHYSICAL EXAMINATION: GENERAL: Elderly lady, lying in bed in the ICU. VITAL SIGNS: Blood pressure 156/72, heart rate 70, respiratory rate 28, temperature 97.6. HEENT: Normocephalic, atraumatic. NECK: Supple. No JVD. LUNGS: Bilateral equal air entry, equal expansion, poor inspiratory effort. CARDIAC: S1 and S2, regular rate and rhythm, no murmur, no rub. ABDOMEN: Soft, distended, positive colostomy, bowel sounds present. EXTREMITIES: 3+ pitting edema of the lower extremities. INTAKE AND OUTPUT: 1550/1020. LABORATORY DATA: WBC 13.7, hemoglobin 13, hematocrit 40, platelets 75. Sodium 150, potassium 4.0, chloride 115, CO2 of 31, BUN 14, creatinine of 0.4, glucose 103, calcium 8.2, magnesium 1.6. AST 14, ALT 25. Albumin 2.0, corrected calcium is 9.6. CEA is 20.9. CT of the head done on 11/27 showed new areas of hypodensity in the occipital lobes bilaterally and the right cerebellar hemisphere showed acute infract. CURRENT MEDICATIONS: Apresoline, Benadryl, Carafate, Diflucan, Dilaudid, __215___, Feosol, propranolol, Keppra, Lasix, magnesium oxide, amlodipine, D5 half-normal saline with 40 mEq of potassium, potassium 20 mEq daily, Tylenol, Zestril. ASSESSMENT: 1. Colon cancer with metastatic disease, suspicious metastasis to the brain. 2. Status post seizure. 3. Status post palliative colostomy. 4. Altered mental status. 5. Severe malnutrition. 6. Hypokalemia. 7. Hypomagnesemia. PLAN: 1. Continue IV fluids with potassium. 2. Discontinue potassium chloride riders. 3. Magnesium sulphate 1 g IV piggyback today. 4. Revisit realistic expectations with family. Adele Griffin MD
--- NOTE | 2016-11-30 17:45 | CP.PCM.PN ---
<Laura Navarro - Last Filed: 11/30/16 17:45> Subjective - Date & Time of Evaluation Date of Evaluation: 11/30/16 Time of Evaluation: 09:05 - Subjective Subjective: PGY-2 Neurology progress note for Dr Moya. Patient still lethargic, Opens her eyes with commands, otherwise doesn't follow commands. Objective - Vital Signs/Intake and Output Vital Signs (last 24 hours): Temp Pulse Resp BP Pulse Ox 97.5 F L 113 H 13 165/91 H 100 11/30/16 12:00 11/30/16 16:00 11/30/16 16:00 11/30/16 16:00 11/30/16 16:00 Intake and Output: 11/30/16 11/30/16 06:59 18:59 Intake Total 820 Output Total 600 Balance 220 - Medications Medications: Current Medications Acetaminophen (Tylenol 650 Mg Supp) 650 mg RC Q4H PRN PRN Reason: Fever >100.4 F Last Admin: 11/01/16 21:18 Dose: 650 mg Amlodipine Besylate (Norvasc) 5 mg PO DAILY [facility] Last Admin: 11/30/16 10:07 Dose: Not Given Al Hydrox/Mg Hydrox/Simethicone 30 ml/Diphenhydramine HCl 75 mg/Lidocaine 30 ml 0 ml PO QID [facility] Last Admin: 11/30/16 13:15 Dose: Not Given Diphenhydramine HCl (Benadryl) 50 mg IVP HS PRN PRN Reason: Insomnia Last Admin: 11/27/16 01:00 Dose: 50 mg Ergocalciferol (Drisdol 50,000 Intl Units Cap) 1 cap PO Q7D [facility] Last Admin: 11/19/16 18:04 Dose: Not Given Ferrous Sulfate (Feosol) 324 mg PO TID [facility] Last Admin: 11/30/16 13:12 Dose: Not Given Fluconazole (Diflucan) 200 mg PO DAILY [facility] PRN Reason: Protocol Stop: 12/12/16 10:01 Last Admin: 11/30/16 10:02 Dose: Not Given Furosemide (Lasix) 20 mg IVP Q12 [facility] Last Admin: 11/30/16 10:06 Dose: 20 mg Home Med (Home Med) 1 unit PO Q12H PRN PRN Reason: Inflammation Last Admin: 10/18/16 11:03 Dose: 1 unit Hydralazine HCl (Apresoline) 10 mg IVP Q4H PRN PRN Reason: Systolic Blood Pressure Hydromorphone HCl (Dilaudid) 1 mg IVP Q1H PRN PRN Reason: Pain, severe (8-10) Last Admin: 11/30/16 16:31 Dose: 1 mg Levetiracetam (Keppra 500mg Ivpb) 500 mg in 100 mls @ 400 mls/hr IV Q12 [facility] Last Admin: 11/30/16 10:06 Dose: 400 mls/hr Potassium Chloride 40 meq/ (Dextrose/Sodium Chloride) 1,020 mls @ 60 mls/hr IV .Q17H [facility] Last Admin: 11/30/16 10:10 Dose: 60 mls/hr Lisinopril (Zestril) 10 mg PO DAILY [facility] Last Admin: 11/30/16 10:16 Dose: Not Given Magnesium Oxide (Mag-Ox) 400 mg PO BID [facility] Last Admin: 11/30/16 10:07 Dose: Not Given Multi-Ingredient Ointment (Hydrophor Oint) 0 gm TOP Q6H PRN PRN Reason: Dry lip Multivitamins (Thera Tab) 1 tab PO 0800 [facility] Last Admin: 11/30/16 10:16 Dose: Not Given Petrolatum (Desitin Maximum Strength Topical 40% Oint) 1 gm TOP Q4H PRN PRN Reason: Rash Last Admin: 10/23/16 22:39 Dose: 1 applic Propranolol HCl (Inderal La) 120 mg PO DAILY [facility] Last Admin: 11/30/16 10:02 Dose: Not Given Sucralfate (Carafate Oral Susp) 1 gm PO BID [facility] Last Admin: 11/30/16 10:01 Dose: Not Given - Labs Labs: 11/30/16 05:20 11/30/16 05:20 PT 12.2 Seconds (9.9-11.8) H 11/30/16 05:20 INR 1.13 (0.93-1.08) H 11/30/16 05:20 APTT 29.6 Seconds (23.7-30.8) 11/30/16 05:20 - Constitutional Appears: No Acute Distress, Older Than Stated Age, Cachectic, Chronically Ill - Head Exam Head Exam: ATRAUMATIC, NORMAL INSPECTION, NORMOCEPHALIC - Eye Exam Eye Exam: EOMI, Normal appearance, PERRL. absent: Scleral icterus Pupil Exam: PERRL - ENT Exam ENT Exam: Mucous Membranes Moist - Neck Exam Neck Exam: Normal Inspection - Respiratory Exam Respiratory Exam: Clear to Ausculation Bilateral, NORMAL BREATHING PATTERN. absent: Rales, Rhonchi, Wheezes, Respiratory Distress, Stridor - Cardiovascular Exam Cardiovascular Exam: REGULAR RHYTHM, +S1, +S2 - GI/Abdominal Exam GI & Abdominal Exam: Soft, Tenderness (incision site, positive ostomy.), Normal Bowel Sounds - Neurological Exam Additional comments: lethargic and drowsy, aroused to verbal and tactile stimuli. Follows simple commands. Eyes were open spontaneously. Pupils reactive to light. Reflexes 2+ throughout in the Achilles tender and patella tendons b/l No nuchal rigidity. Negative babinski No clonus. Patient is moving her upper extremities spontaneously, able to wiggle her toes b /l. 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 Patient had episode where she was twitching and staring questionable for seizure. Ct head with occipital foci, EEg with no epileptic wave, complete slowness. 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 - No asa, and plavix for 3 weeks - Continue with current management - Thank you for consulting Dr Moya. Patient seen, examined, and discussed with Dr Moya. <Ravi Moya - Last Filed: 12/02/16 12:50> Objective - Vital Signs/Intake and Output Vital Signs (last 24 hours): Temp Pulse Resp BP Pulse Ox 97.2 F L 97 H 16 168/100 H 100 12/02/16 11:29 12/02/16 11:29 12/02/16 11:29 12/02/16 11:29 12/02/16 06:00 Intake and Output: 12/02/16 12/02/16 06:59 18:59 Intake Total 720 Output Total 1150 450 Balance -430 -450 - Medications Medications: Current Medications Acetaminophen (Tylenol 650 Mg Supp) 650 mg RC Q4H PRN PRN Reason: Fever >100.4 F Last Admin: 11/01/16 21:18 Dose: 650 mg Al Hydrox/Mg Hydrox/Simethicone 30 ml/Diphenhydramine HCl 75 mg/Lidocaine 30 ml 0 ml PO QID [facility] Last Admin: 12/02/16 11:55 Dose: Not Given Diphenhydramine HCl (Benadryl) 50 mg IVP HS PRN PRN Reason: Insomnia Last Admin: 11/27/16 01:00 Dose: 50 mg Ergocalciferol (Drisdol 50,000 Intl Units Cap) 1 cap PO Q7D [facility] Last Admin: 11/19/16 18:04 Dose: Not Given Ferrous Sulfate (Feosol) 324 mg PO TID [facility] Last Admin: 12/02/16 09:44 Dose: Not Given Fluconazole (Diflucan) 200 mg PO DAILY [facility] PRN Reason: Protocol Stop: 12/12/16 10:01 Last Admin: 12/02/16 09:44 Dose: Not Given Home Med (Home Med) 1 unit PO Q12H PRN PRN Reason: Inflammation Last Admin: 10/18/16 11:03 Dose: 1 unit Hydralazine HCl (Apresoline) 10 mg IVP Q4H PRN PRN Reason: Systolic Blood Pressure Hydromorphone HCl (Dilaudid) 1 mg IVP Q1H PRN PRN Reason: Pain, moderate (4-7) Last Admin: 12/02/16 11:48 Dose: 1 mg Levetiracetam (Keppra 500mg Ivpb) 500 mg in 100 mls @ 400 mls/hr IV Q12 [facility] Last Admin: 12/02/16 09:45 Dose: 400 mls/hr Potassium Chloride (Potassium Chloride 10 Meq/100 Ml) 10 meq in 100 mls @ 100 mls/hr IVPB Q2H [facility] Stop: 12/02/16 16:44 Last Admin: 12/02/16 12:40 Dose: 100 mls/hr Potassium Chloride 40 meq/ (Dextrose) 520 mls @ 60 mls/hr IV .Q8H40M [facility] Stop: 12/04/16 10:46 Last Admin: 12/02/16 12:39 Dose: 60 mls/hr Magnesium Hydroxide (Milk Of Magnesia) 30 ml PO DAILY PRN PRN Reason: skin irritation Last Admin: 12/01/16 14:37 Dose: 30 ml Magnesium Oxide (Mag-Ox) 400 mg PO BID [facility] Last Admin: 12/02/16 09:44 Dose: Not Given Multi-Ingredient Ointment (Hydrophor Oint) 0 gm TOP Q6H PRN PRN Reason: Dry lip Multivitamins (Thera Tab) 1 tab PO 0800 [facility] Last Admin: 12/02/16 08:10 Dose: Not Given Propranolol HCl (Inderal La) 120 mg PO DAILY [facility] Last Admin: 12/02/16 09:44 Dose: Not Given Sucralfate (Carafate Oral Susp) 1 gm PO BID [facility] Last Admin: 12/02/16 09:43 Dose: Not Given - Labs Labs: 12/02/16 06:00 12/02/16 06:00 PT 12.9 Seconds (9.9-11.8) H 12/02/16 06:00 INR 1.19 (0.93-1.08) H 12/02/16 06:00 APTT 32.9 Seconds (23.7-30.8) H 12/02/16 06:00 Attending/Attestation - Attestation I have personally seen and examined this patient.: Yes I have fully participated in the care of the patient.: Yes I have reviewed all pertinent clinical information, including history, physical exam and plan: Yes
[2016-11-30] MEDS ORDERED: HYDROmorphone 0.5 mg/0.5 ml ISec IVP STA (21:02)
[2016-11-30] MEDS ORDERED: HYDROmorphone 1 mg/ml ISec IVP STA (21:13)
--- NOTE | 2016-11-30 23:16 | CP.PCM.PN ---
Subjective - Date & Time of Evaluation Date of Evaluation: 11/30/16 Time of Evaluation: 23:16 - Subjective Subjective: S:Nurse calls and tells that patient is in pain, has order for dilaudid 1 mg I V q1 h prn pain, which has fallen off. She needs an order to give dilaudid. Patient was seen at bed side. She has been moaning in pain and not answering any questions. Medical record was reviewed. O: Last Vital Signs 3 Temp 97.5 F L 11/30/16 12:00 Pulse 120 H 12/01/16 03:20 Resp 13 11/30/16 16:00 BP 165/91 H 11/30/16 16:00 Pulse Ox 100 11/30/16 16:00 Awake, alert, not in distress. LUNGS:Normal breathing pattern. A:Body ache. P: Dilaudid 1 mg IV Q1H prn pain orderd for 8 doses. Objective - Vital Signs/Intake and Output Vital Signs (last 24 hours): Temp Pulse Resp BP Pulse Ox 97.5 F L 113 H 13 165/91 H 100 11/30/16 12:00 11/30/16 16:00 11/30/16 16:00 11/30/16 16:00 11/30/16 16:00 Intake and Output: 11/30/16 12/01/16 18:59 06:59 Intake Total 0 Output Total 500 Balance -500 - Medications Medications: Current Medications Acetaminophen (Tylenol 650 Mg Supp) 650 mg RC Q4H PRN PRN Reason: Fever >100.4 F Last Admin: 11/01/16 21:18 Dose: 650 mg Amlodipine Besylate (Norvasc) 5 mg PO DAILY [facility] Last Admin: 11/30/16 10:07 Dose: Not Given Al Hydrox/Mg Hydrox/Simethicone 30 ml/Diphenhydramine HCl 75 mg/Lidocaine 30 ml 0 ml PO QID [facility] Last Admin: 11/30/16 18:12 Dose: Not Given Diphenhydramine HCl (Benadryl) 50 mg IVP HS PRN PRN Reason: Insomnia Last Admin: 11/27/16 01:00 Dose: 50 mg Ergocalciferol (Drisdol 50,000 Intl Units Cap) 1 cap PO Q7D [facility] Last Admin: 11/19/16 18:04 Dose: Not Given Ferrous Sulfate (Feosol) 324 mg PO TID [facility] Last Admin: 11/30/16 18:12 Dose: Not Given Fluconazole (Diflucan) 200 mg PO DAILY [facility] PRN Reason: Protocol Stop: 12/12/16 10:01 Last Admin: 11/30/16 10:02 Dose: Not Given Furosemide (Lasix) 20 mg IVP Q12 [facility] Last Admin: 11/30/16 10:06 Dose: 20 mg Home Med (Home Med) 1 unit PO Q12H PRN PRN Reason: Inflammation Last Admin: 10/18/16 11:03 Dose: 1 unit Hydralazine HCl (Apresoline) 10 mg IVP Q4H PRN PRN Reason: Systolic Blood Pressure Hydromorphone HCl (Dilaudid) 1 mg IVP Q1H PRN PRN Reason: Pain, severe (8-10) Last Admin: 11/30/16 22:56 Dose: 1 mg Levetiracetam (Keppra 500mg Ivpb) 500 mg in 100 mls @ 400 mls/hr IV Q12 [facility] Last Admin: 11/30/16 10:06 Dose: 400 mls/hr Potassium Chloride 40 meq/ (Dextrose/Sodium Chloride) 1,020 mls @ 60 mls/hr IV .Q17H [facility] Last Admin: 11/30/16 10:10 Dose: 60 mls/hr Lisinopril (Zestril) 10 mg PO DAILY [facility] Last Admin: 11/30/16 10:16 Dose: Not Given Magnesium Oxide (Mag-Ox) 400 mg PO BID [facility] Last Admin: 11/30/16 18:12 Dose: Not Given Multi-Ingredient Ointment (Hydrophor Oint) 0 gm TOP Q6H PRN PRN Reason: Dry lip Multivitamins (Thera Tab) 1 tab PO 0800 [facility] Last Admin: 11/30/16 10:16 Dose: Not Given Propranolol HCl (Inderal La) 120 mg PO DAILY [facility] Last Admin: 11/30/16 10:02 Dose: Not Given Sucralfate (Carafate Oral Susp) 1 gm PO BID [facility] Last Admin: 11/30/16 18:12 Dose: Not Given - Labs Labs: 11/30/16 05:20 11/30/16 05:20 PT 12.2 Seconds (9.9-11.8) H 07/21/17 05:20 INR 1.13 (0.93-1.08) H 11/30/16 05:20 APTT 29.6 Seconds (23.7-30.8) 11/30/16 05:20
[2016-12-01] MEDS: HYDROmorphone 1 mg/ml ISec IVP PRN ×9 (01:10→21:51)
[2016-12-01] MEDS: Potassium Chloride 40 MEQ in Dextrose 5%/0.45% NS 1,000 ML IV SCH (03:03)
[2016-12-01] MEDS: Aluminum Hydroxide/Magnesium 30 ML, DiphenhydrAMINE 75 MG, Lidocaine 2% Viscous 30 ML PO SCH ×5 (03:47→22:00)
[2016-12-01] MEDS: levETIRAcetam 500mg IVPB 500 MG/100 ML BAG IV SCH ×3 (05:14→21:47)
[2016-12-01 05:17] LABS: ALB/GLOB RATIO 0.7 (1.1-1.8); ALBUMIN 1.8 g/dL (3.0-4.8); ALT/SGPT 24 U/L (7-56); AST/SGOT 12 U/L (15-39); BLOOD UREA NITROGEN 14 mg/dL (7-21); CALCIUM 7.8 mg/dL (8.4-10.5); GFR AFRICAN-AMERICAN > 60; GFR NON-AFRICAN AMERICAN > 60; MAGNESIUM 1.6 mg/dL (1.7-2.2)
[2016-12-01 05:18] LABS: INR 1.21 (0.93-1.08); PARTIAL THROMBOPLASTIN TIME 31.9 Seconds (23.7-30.8); PROTHROMBIN TIME 13.1 Seconds (9.9-11.8)
[2016-12-01 06:50] LABS: HEMOGLOBIN 10.8 gm/dL (12.0-16.0); MEAN CELL VOLUME 96.9 fL (80.0-105.0); MEAN CORPUSCULAR HEMOGLOBIN 30.3 pg (25.0-35.0); MEAN CORPUSCULAR HGB CONC 31.2 g/dl (31.0-37.0); PLATELET COUNT 73 10^3/uL (120.0-450.0); RBC 3.57 10^6/uL (3.5-6.1); RED CELL DISTRIBUTION WIDTH 16.8 % (11.5-14.5); WHITE BLOOD COUNT 12.4 10^3/ul (4.5-11.0)
[2016-12-01] MEDS: Multivitamin Therapeutic Tab PO SCH (07:20)
[2016-12-01 09:42] LABS: ANISOCYTOSIS SLIGHT; BAND 7 % (0-2); LYMPHOCYTE 2 % (22.0-35.0); MONOCYTE 4 % (1.0-6.0); NEUTROPHIL 87 % (50.0-70.0); PLATELET ESTIMATE LOW (NORMAL)
[2016-12-01] MEDS: Sucralfate 1 gm/10 ml Oral Susp UD PO SCH ×2 (10:01→18:02)
[2016-12-01] MEDS: Propranolol 60 mg ER Cap PO SCH (10:02)
[2016-12-01] MEDS: Magnesium Oxide 400 mg Tab UD PO SCH ×2 (10:02→18:02)
[2016-12-01] MEDS ORDERED: Magnesium Sulfate 2 GM in Sodium Chloride 0.9% 100 ML IVPB ONE (10:46)
--- NOTE | 2016-12-01 10:53 | CP.PCM.PN ---
Subjective - Date & Time of Evaluation Date of Evaluation: 12/01/16 Time of Evaluation: 10:47 - Subjective Subjective: Follow up Nephrology Consultation Note covering for Dr Griffin Assessment: worsening Hypernatremia, Hypokalemia, Hypomagnesemia, VIt D defeciency, Severe Hypoalbuminemia with edema and malnourished state metastatic colon CA, thrombocytopenia HTN Plan pt unable to take any PO meds. very limited PO intake. overall prognosis appears poor will d/c lisinopril and norvasc as pt unable to take. can treat her HTN with PRN meds such as hydralazine as ordered supplement electrolytes change to D5W only. will d/c lasix as with hypernatremia and no oral intake. has edema due to very low albumin. Glycemic control Further work up for as per primary team Thanks for allowing me to participate in care of your patient. Will follow patient with you. Please call if any Qs Dr Avinash Blackwell Office: [phone] Subjective: Noted events overnight. Patients unable to communicate much. she is lethargic and tired Physical Examination: General Appearance: ill appearing. Vitals reviewed and noted as below Lungs: somewhat increased respiratory rate/effort. Breath sounds bilateral equal and clear Heart: Normal rate. s1s2 normal. No rub or gallop. Extremities: 2+ edema. Neurological: Patient is lethargic, mostly not able to communicate. appears tired. she is easily arousable though Skin: Warm and dry. Normal turgor. No rash. Palpitation: Normal elasticity for age Abdomen: Abdomen is soft. Bowel sounds +. There is abdominal tenderness with guarding. no rigidity or organomegaly. has LLQ ostomy : kidney or bladder not palpable Labs/imaging reviewed. Past medical history, past surgical history, family history, social history, allergy reviewed Objective - Vital Signs/Intake and Output Vital Signs (last 24 hours): Temp Pulse Resp BP Pulse Ox 97.5 F L 98 H 13 152/100 H 100 11/30/16 12:00 12/01/16 08:27 11/30/16 16:00 12/01/16 10:17 11/30/16 16:00 Intake and Output: 12/01/16 12/01/16 06:59 18:59 Intake Total 480 Output Total 500 Balance -20 - Medications Medications: Current Medications Acetaminophen (Tylenol 650 Mg Supp) 650 mg RC Q4H PRN PRN Reason: Fever >100.4 F Last Admin: 11/01/16 21:18 Dose: 650 mg Al Hydrox/Mg Hydrox/Simethicone 30 ml/Diphenhydramine HCl 75 mg/Lidocaine 30 ml 0 ml PO QID [facility] Last Admin: 12/01/16 10:03 Dose: Not Given Diphenhydramine HCl (Benadryl) 50 mg IVP HS PRN PRN Reason: Insomnia Last Admin: 11/27/16 01:00 Dose: 50 mg Ergocalciferol (Drisdol 50,000 Intl Units Cap) 1 cap PO Q7D [facility] Last Admin: 11/19/16 18:04 Dose: Not Given Ferrous Sulfate (Feosol) 324 mg PO TID [facility] Last Admin: 12/01/16 10:01 Dose: Not Given Fluconazole (Diflucan) 200 mg PO DAILY [facility] PRN Reason: Protocol Stop: 12/12/16 10:01 Last Admin: 12/01/16 10:01 Dose: Not Given Home Med (Home Med) 1 unit PO Q12H PRN PRN Reason: Inflammation Last Admin: 10/18/16 11:03 Dose: 1 unit Hydralazine HCl (Apresoline) 10 mg IVP Q4H PRN PRN Reason: Systolic Blood Pressure Hydromorphone HCl (Dilaudid) 1 mg IVP Q1H PRN PRN Reason: Pain, severe (8-10) Last Admin: 12/01/16 06:41 Dose: 1 mg Levetiracetam (Keppra 500mg Ivpb) 500 mg in 100 mls @ 400 mls/hr IV Q12 [facility] Last Admin: 12/01/16 10:18 Dose: 400 mls/hr Dextrose (Dextrose 5% In Water) 500 mls @ 60 mls/hr IV .Q8H20M [facility] Stop: 12/04/16 10:46 Magnesium Hydroxide (Milk Of Magnesia) 30 ml PO DAILY PRN PRN Reason: skin irritation Magnesium Oxide (Mag-Ox) 400 mg PO BID [facility] Last Admin: 12/01/16 10:02 Dose: Not Given Multi-Ingredient Ointment (Hydrophor Oint) 0 gm TOP Q6H PRN PRN Reason: Dry lip Multivitamins (Thera Tab) 1 tab PO 0800 [facility] Last Admin: 12/01/16 07:20 Dose: Not Given Propranolol HCl (Inderal La) 120 mg PO DAILY [facility] Last Admin: 12/01/16 10:02 Dose: Not Given Sucralfate (Carafate Oral Susp) 1 gm PO BID [facility] Last Admin: 12/01/16 10:01 Dose: Not Given - Labs Labs: 12/01/16 05:00 12/01/16 05:00 PT 13.1 Seconds (9.9-11.8) H 12/01/16 05:00 INR 1.21 (0.93-1.08) H 12/01/16 05:00 APTT 31.9 Seconds (23.7-30.8) H 12/01/16 05:00
--- NOTE | 2016-12-01 14:01 | CP.PCM.PN ---
<Natali Carlson - Last Filed: 12/01/16 14:06> Subjective - Date & Time of Evaluation Date of Evaluation: 12/01/16 Time of Evaluation: 13:58 - Subjective Subjective: General Surgery Progress Note for Dr. Mccracken 61 F S&E at bedside. LINDA. Patient is a poor historian at this time. Patient is still lethargic, cannot answer questions. Objective - Vital Signs/Intake and Output Vital Signs (last 24 hours): Temp Pulse Resp BP Pulse Ox 96.3 F L 98 H 18 152/100 H 99 12/01/16 06:00 12/01/16 08:27 12/01/16 06:00 12/01/16 10:17 12/01/16 06:00 Intake and Output: 12/01/16 12/01/16 06:59 18:59 Intake Total 480 Output Total 500 Balance -20 - Medications Medications: Current Medications Acetaminophen (Tylenol 650 Mg Supp) 650 mg RC Q4H PRN PRN Reason: Fever >100.4 F Last Admin: 11/01/16 21:18 Dose: 650 mg Al Hydrox/Mg Hydrox/Simethicone 30 ml/Diphenhydramine HCl 75 mg/Lidocaine 30 ml 0 ml PO QID [facility] Last Admin: 12/01/16 10:03 Dose: Not Given Diphenhydramine HCl (Benadryl) 50 mg IVP HS PRN PRN Reason: Insomnia Last Admin: 11/27/16 01:00 Dose: 50 mg Ergocalciferol (Drisdol 50,000 Intl Units Cap) 1 cap PO Q7D [facility] Last Admin: 11/19/16 18:04 Dose: Not Given Ferrous Sulfate (Feosol) 324 mg PO TID [facility] Last Admin: 12/01/16 10:01 Dose: Not Given Fluconazole (Diflucan) 200 mg PO DAILY [facility] PRN Reason: Protocol Stop: 12/12/16 10:01 Last Admin: 12/01/16 10:01 Dose: Not Given Home Med (Home Med) 1 unit PO Q12H PRN PRN Reason: Inflammation Last Admin: 10/18/16 11:03 Dose: 1 unit Hydralazine HCl (Apresoline) 10 mg IVP Q4H PRN PRN Reason: Systolic Blood Pressure Hydromorphone HCl (Dilaudid) 1 mg IVP Q1H PRN PRN Reason: Pain, severe (8-10) Last Admin: 12/01/16 13:54 Dose: 1 mg Levetiracetam (Keppra 500mg Ivpb) 500 mg in 100 mls @ 400 mls/hr IV Q12 [facility] Last Admin: 12/01/16 10:18 Dose: 400 mls/hr Dextrose (Dextrose 5% In Water) 500 mls @ 60 mls/hr IV .Q8H20M [facility] Stop: 12/04/16 10:46 Last Admin: 12/01/16 11:49 Dose: 60 mls/hr Magnesium Hydroxide (Milk Of Magnesia) 30 ml PO DAILY PRN PRN Reason: skin irritation Magnesium Oxide (Mag-Ox) 400 mg PO BID [facility] Last Admin: 12/01/16 10:02 Dose: Not Given Multi-Ingredient Ointment (Hydrophor Oint) 0 gm TOP Q6H PRN PRN Reason: Dry lip Multivitamins (Thera Tab) 1 tab PO 0800 [facility] Last Admin: 12/01/16 07:20 Dose: Not Given Propranolol HCl (Inderal La) 120 mg PO DAILY [facility] Last Admin: 12/01/16 10:02 Dose: Not Given Sucralfate (Carafate Oral Susp) 1 gm PO BID [facility] Last Admin: 12/01/16 10:01 Dose: Not Given - Labs Labs: 12/01/16 05:00 12/01/16 05:00 PT 13.1 Seconds (9.9-11.8) H 12/01/16 05:00 INR 1.21 (0.93-1.08) H 12/01/16 05:00 APTT 31.9 Seconds (23.7-30.8) H 12/01/16 05:00 - Constitutional Appears: Chronically Ill - Head Exam Head Exam: NORMAL INSPECTION, NORMOCEPHALIC - Eye Exam Eye Exam: EOMI. absent: Conjunctival injection, Nystagmus, Periorbital swelling - ENT Exam ENT Exam: Mucous Membranes Moist - Neck Exam Neck Exam: Full ROM, Normal Inspection - Respiratory Exam Respiratory Exam: NORMAL BREATHING PATTERN. absent: Accessory Muscle Use, Clear to Ausculation Bilateral, Rhonchi, Wheezes, Respiratory Distress - GI/Abdominal Exam GI & Abdominal Exam: Soft, Tenderness. absent: Bruit, Distended, Firm, Guarding , Rigid - Skin Skin Exam: Dry, Intact, Normal Color, Pallor Additional comments: Midline incision c/d/i no induration, drainage, signs of infection colostomy bag area has excoriation due to leakage of colostomy bag. Assessment and Plan - Assessment and Plan (Free Text) Assessment: 61 F Colon CA and Sacral decub with worsening mental status Plan: c/w current medical management patient does not need any surgical interventions at this time. Milk of Magnesia on excoriation at colostomy wound site, dry site, change colostomy bag. Monitor for signs of infection at the colostomy site. Monitor midline incision for signs of infection, dehiscence, inflammation and drainage d/w Dr. Kaykay Carlson, DO PGY1 <Yoan Mccracken - Last Filed: 12/03/16 00:01> Objective - Vital Signs/Intake and Output Vital Signs (last 24 hours): Temp Pulse Resp BP Pulse Ox 97.8 F 101 H 18 170/89 H 100 12/02/16 16:00 12/02/16 16:00 12/02/16 16:00 12/02/16 16:00 12/02/16 16:00 Intake and Output: 12/02/16 12/03/16 18:59 06:59 Intake Total 120 Output Total 450 600 Balance -450 -480 - Medications Medications: Current Medications Acetaminophen (Tylenol 650 Mg Supp) 650 mg RC Q4H PRN PRN Reason: Fever >100.4 F Last Admin: 11/01/16 21:18 Dose: 650 mg Al Hydrox/Mg Hydrox/Simethicone 30 ml/Diphenhydramine HCl 75 mg/Lidocaine 30 ml 0 ml PO QID [facility] Last Admin: 12/02/16 21:01 Dose: Not Given Diphenhydramine HCl (Benadryl) 50 mg IVP HS PRN PRN Reason: Insomnia Last Admin: 11/27/16 01:00 Dose: 50 mg Ergocalciferol (Drisdol 50,000 Intl Units Cap) 1 cap PO Q7D [facility] Last Admin: 11/19/16 18:04 Dose: Not Given Ferrous Sulfate (Feosol) 324 mg PO TID [facility] Last Admin: 12/02/16 18:16 Dose: Not Given Fluconazole (Diflucan) 200 mg PO DAILY [facility] PRN Reason: Protocol Stop: 12/12/16 10:01 Last Admin: 12/02/16 09:44 Dose: Not Given Home Med (Home Med) 1 unit PO Q12H PRN PRN Reason: Inflammation Last Admin: 10/18/16 11:03 Dose: 1 unit Hydralazine HCl (Apresoline) 10 mg IVP Q4H PRN PRN Reason: Systolic Blood Pressure Hydromorphone HCl (Dilaudid) 1 mg IVP Q1H PRN PRN Reason: Pain, moderate (4-7) Last Admin: 12/02/16 21:06 Dose: 1 mg Levetiracetam (Keppra 500mg Ivpb) 500 mg in 100 mls @ 400 mls/hr IV Q12 [facility] Last Admin: 12/02/16 21:06 Dose: 400 mls/hr Potassium Chloride/Dextrose (Potassium Chl 40 Meq In D5w) 1,000 mls @ 60 mls/ hr IV .[id number] [facility] Last Admin: 12/02/16 18:17 Dose: Not Given Magnesium Hydroxide (Milk Of Magnesia) 30 ml PO DAILY PRN PRN Reason: skin irritation Last Admin: 12/02/16 14:09 Dose: 30 ml Magnesium Oxide (Mag-Ox) 400 mg PO BID [facility] Last Admin: 12/02/16 18:16 Dose: Not Given Multi-Ingredient Ointment (Hydrophor Oint) 0 gm TOP Q6H PRN PRN Reason: Dry lip Multivitamins (Thera Tab) 1 tab PO 0800 [facility] Last Admin: 12/02/16 08:10 Dose: Not Given Propranolol HCl (Inderal La) 120 mg PO DAILY [facility] Last Admin: 12/02/16 09:44 Dose: Not Given Sucralfate (Carafate Oral Susp) 1 gm PO BID [facility] Last Admin: 12/02/16 18:16 Dose: Not Given - Labs Labs: 12/02/16 06:00 12/02/16 06:00 PT 12.9 Seconds (9.9-11.8) H 12/02/16 06:00 INR 1.19 (0.93-1.08) H 12/02/16 06:00 APTT 32.9 Seconds (23.7-30.8) H 12/02/16 06:00 Assessment and Plan - Assessment and Plan (Free Text) Plan: Patient was seen and examined by me. I agree with assessment and plan as per resident's note.
[2016-12-01] MEDS: Collagenase 250 Units/gm Ointment(30 gm) TOP SCH (14:37)
[2016-12-01] MEDS: Magnesium Hydroxide Susp 30 ml UD PO PRN (14:37)
--- NOTE | 2016-12-01 16:45 | PN ---
DATE: 12/01/2016 REASON FOR FOLLOWUP: Status post rapid response CVA, seizure disorder, tachycardia. SUBJECTIVE: The patient is very weak and lethargic. Sister and [id number] are at the bedside. Not in apparent distress. Recently, got morphine. OBJECTIVE: VITAL SIGNS: Temperature afebrile, heart rate 90, blood pressure 152/100. HEENT: PERRLA. Extraocular muscles are intact. NECK: Supple. No carotid bruit. No thyromegaly. CHEST: Clear to auscultation. S1 and S2 are regular. ABDOMEN: Soft. EXTREMITIES: Clubbing and cyanosis are negative. LABORATORY DATA: Blood workup as follows. WBC 12.5, hemoglobin 10.8, hematocrit 34.6, platelet count 73. Sodium 150, potassium 3.8, chloride 101, , anion gap of 8, BUN 14, creatinine 0.3, protein 4.3, albumin 1.8. IMPRESSION: The patient has severe protein-calorie malnutrition, present on admission, anemia, tachycardia, colon carcinoma with metastasis, status post surgery, status post laparotomy. The patient's long-term prognosis is extremely poor. Continue supportive care. We will continue D5 water. Overall, the patient's prognosis is guarded. Family is at bedside. We will follow with you. Strongly consider DNR and DNI. Sherrell Busby MD
--- NOTE | 2016-12-01 18:01 | PN ---
DATE: 12/01/2016 SUBJECTIVE: The patient is in bed, in no acute distress. However, chronically ill, debilitated, lethargic; continues to deteriorate, chronically poor. PHYSICAL EXAMINATION: VITAL SIGNS: Temperature of 97 and blood pressure is 160/70, respiratory rate of 16. HEENT: Unremarkable. NECK: Supple. LUNGS: Decreased breath sounds. HEART: Normal S1 and S2. ABDOMEN: Soft, nontender. LABORATORY DATA: Reveals a white count of 12,400, hemoglobin of 10, platelets of 73. Chemistries revealed a BUN of 14, creatinine of 0.3 and stool occult positive and review of orders are noted. The patient is on p.o. Diflucan. The patient had a head an MRA, was read by Dr. Momin *------*, which is an unremarkable MR angiography of the brain, also an MRI of the brain, which reveals enhancing mass with moderate local edema seen on the right cerebral, most compatible with metastatic lesion; repeat cultures are negative. Isis Chase's note is reviewed and appreciated. 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 Diflucan. Overall prognosis quite poor. Should recommend hospice and supportive care only in this patient whose prognosis is grave. Lang Akhtar MD
[2016-12-02] MEDS: HYDROmorphone 1 mg/ml ISec IVP PRN ×7 (00:45→21:06)
[2016-12-02 07:13] LABS: INR 1.19 (0.93-1.08); PARTIAL THROMBOPLASTIN TIME 32.9 Seconds (23.7-30.8); PROTHROMBIN TIME 12.9 Seconds (9.9-11.8)
[2016-12-02 07:25] LABS: ALB/GLOB RATIO 0.7 (1.1-1.8); ALBUMIN 1.8 g/dL (3.0-4.8); ALT/SGPT 23 U/L (7-56); AST/SGOT 19 U/L (15-39); BLOOD UREA NITROGEN 14 mg/dL (7-21); CALCIUM 7.6 mg/dL (8.4-10.5); GFR AFRICAN-AMERICAN > 60; GFR NON-AFRICAN AMERICAN > 60; MAGNESIUM 1.8 mg/dL (1.7-2.2)
[2016-12-02] MEDS: Multivitamin Therapeutic Tab PO SCH (08:10)
[2016-12-02 08:18] LABS: EOS % 0.2 % (1.5-5.0); GRAN # 9.96 (1.4-6.5); GRAN % 94.1 % (50.0-68.0); HEMOGLOBIN 10.5 gm/dL (12.0-16.0); LYMPH # 0.4 (1.2-3.4); LYMPH % 3.5 % (22.0-35.0); MEAN CELL VOLUME 93.6 fL (80.0-105.0); MEAN CORPUSCULAR HEMOGLOBIN 29.2 pg (25.0-35.0); MEAN CORPUSCULAR HGB CONC 31.2 g/dl (31.0-37.0); MEAN PLATELET VOLUME 11.3 fl (7.0-11.0); MONO # 0.2 (0.1-0.6); MONO % 2.2 % (1.0-6.0); PLATELET COUNT 71 10^3/uL (120.0-450.0); RED CELL DISTRIBUTION WIDTH 16.1 % (11.5-14.5); WHITE BLOOD COUNT 10.6 10^3/ul (4.5-11.0)
[2016-12-02] MEDS: Sucralfate 1 gm/10 ml Oral Susp UD PO SCH ×2 (09:43→18:16)
[2016-12-02] MEDS: Propranolol 60 mg ER Cap PO SCH (09:44)
[2016-12-02] MEDS: Magnesium Oxide 400 mg Tab UD PO SCH ×2 (09:44→18:16)
[2016-12-02] MEDS: levETIRAcetam 500mg IVPB 500 MG/100 ML BAG IV SCH ×2 (09:45→21:06)
--- NOTE | 2016-12-02 10:25 | CP.PCM.PN ---
Subjective - Date & Time of Evaluation Date of Evaluation: 12/02/16 Time of Evaluation: 10:23 - Subjective Subjective: Follow up Nephrology Consultation Note covering for Dr Griffin Assessment: worsening Hypernatremia, Hypokalemia, Hypomagnesemia, VIt D defeciency, Severe Hypoalbuminemia with edema and malnourished state metastatic colon CA, thrombocytopenia HTN Plan pt unable to take any PO meds. very limited PO intake. overall prognosis appears very poor had d/c lisinopril and norvasc as pt unable to take. can treat her HTN with PRN meds such as hydralazine as ordered supplement electrolytes today as ordered K rider change to D5W only, ad KCL 40 meq. will d/c lasix as with hypernatremia and no oral intake. has edema due to very low albumin. Glycemic control. goals of care discussion with family. palliative care will be most appropriate for her. Further management as per primary team Thanks for allowing me to participate in care of your patient. Please call if any Qs. Dr Griffin will follow from tomorrow Dr Avinash Blackwell Office: [phone] Subjective: Noted events overnight. Patients unable to communicate much. she is lethargic and tired Physical Examination: family bedside General Appearance: ill appearing. Vitals reviewed and noted as below Lungs: normal respiratory rate/effort. Breath sounds bilateral equal and clear anteriorly Heart: Normal rate. s1s2 normal. No rub or gallop. Extremities: 2+ edema. Neurological: Patient is awake, mostly not able to communicate. appears tired. Skin: Warm and dry. Normal turgor. No rash. Palpitation: Normal elasticity for age Abdomen: Abdomen is soft. Bowel sounds +. There is abdominal tenderness with guarding. no rigidity or organomegaly. has LLQ ostomy : kidney or bladder not palpable Labs/imaging reviewed. Past medical history, past surgical history, family history, social history, allergy reviewed Objective - Vital Signs/Intake and Output Vital Signs (last 24 hours): Temp Pulse Resp BP Pulse Ox 98.2 F 110 H 19 149/101 H 100 12/02/16 06:00 12/02/16 06:00 12/02/16 06:00 12/02/16 06:00 12/02/16 06:00 Intake and Output: 12/02/16 12/02/16 06:59 18:59 Intake Total 720 Output Total 1150 Balance -430 - Medications Medications: Current Medications Acetaminophen (Tylenol 650 Mg Supp) 650 mg RC Q4H PRN PRN Reason: Fever >100.4 F Last Admin: 11/01/16 21:18 Dose: 650 mg Al Hydrox/Mg Hydrox/Simethicone 30 ml/Diphenhydramine HCl 75 mg/Lidocaine 30 ml 0 ml PO QID [facility] Last Admin: 12/01/16 22:00 Dose: Not Given Diphenhydramine HCl (Benadryl) 50 mg IVP HS PRN PRN Reason: Insomnia Last Admin: 11/27/16 01:00 Dose: 50 mg Ergocalciferol (Drisdol 50,000 Intl Units Cap) 1 cap PO Q7D [facility] Last Admin: 11/19/16 18:04 Dose: Not Given Ferrous Sulfate (Feosol) 324 mg PO TID [facility] Last Admin: 12/02/16 09:44 Dose: Not Given Fluconazole (Diflucan) 200 mg PO DAILY [facility] PRN Reason: Protocol Stop: 12/12/16 10:01 Last Admin: 12/02/16 09:44 Dose: Not Given Home Med (Home Med) 1 unit PO Q12H PRN PRN Reason: Inflammation Last Admin: 10/18/16 11:03 Dose: 1 unit Hydralazine HCl (Apresoline) 10 mg IVP Q4H PRN PRN Reason: Systolic Blood Pressure Hydromorphone HCl (Dilaudid) 1 mg IVP Q1H PRN PRN Reason: Pain, moderate (4-7) Last Admin: 12/02/16 06:52 Dose: 1 mg Levetiracetam (Keppra 500mg Ivpb) 500 mg in 100 mls @ 400 mls/hr IV Q12 [facility] Last Admin: 12/02/16 09:45 Dose: 400 mls/hr Potassium Chloride (Potassium Chloride 10 Meq/100 Ml) 10 meq in 100 mls @ 100 mls/hr IVPB Q2H [facility] Stop: 12/02/16 16:44 Potassium Chloride 40 meq/ (Dextrose) 520 mls @ 60 mls/hr IV .[id number] [facility] Stop: 12/04/16 10:46 Magnesium Hydroxide (Milk Of Magnesia) 30 ml PO DAILY PRN PRN Reason: skin irritation Last Admin: 12/01/16 14:37 Dose: 30 ml Magnesium Oxide (Mag-Ox) 400 mg PO BID [facility] Last Admin: 12/02/16 09:44 Dose: Not Given Multi-Ingredient Ointment (Hydrophor Oint) 0 gm TOP Q6H PRN PRN Reason: Dry lip Multivitamins (Thera Tab) 1 tab PO 0800 [facility] Last Admin: 12/02/16 08:10 Dose: Not Given Propranolol HCl (Inderal La) 120 mg PO DAILY [facility] Last Admin: 12/02/16 09:44 Dose: Not Given Sucralfate (Carafate Oral Susp) 1 gm PO BID [facility] Last Admin: 12/02/16 09:43 Dose: Not Given - Labs Labs: 12/02/16 06:00 12/02/16 06:00 PT 12.9 Seconds (9.9-11.8) H 12/02/16 06:00 INR 1.19 (0.93-1.08) H 12/02/16 06:00 APTT 32.9 Seconds (23.7-30.8) H 12/02/16 06:00
--- NOTE | 2016-12-02 10:43 | CP.PCM.PN ---
<Gunner Lucio - Last Filed: 12/02/16 10:39> Subjective - Date & Time of Evaluation Date of Evaluation: 12/02/16 Time of Evaluation: 08:30 - Subjective Subjective: General Surgery- Dr. Mccracken 61 F S&E at bedside. NAEON. Pt non-communicable at this time. Patient is still lethargic. Family members at bedside. no dark or bright blood in ostomy bag +gas. Pt is not eating at this time. Objective - Vital Signs/Intake and Output Vital Signs (last 24 hours): Temp Pulse Resp BP Pulse Ox 97.4 F L 101 H 18 159/100 H 100 12/02/16 10:29 12/02/16 10:29 12/02/16 10:29 12/02/16 10:29 12/02/16 06:00 Intake and Output: 12/02/16 12/02/16 06:59 18:59 Intake Total 720 Output Total 1150 Balance -430 - Medications Medications: Current Medications Acetaminophen (Tylenol 650 Mg Supp) 650 mg RC Q4H PRN PRN Reason: Fever >100.4 F Last Admin: 11/01/16 21:18 Dose: 650 mg Al Hydrox/Mg Hydrox/Simethicone 30 ml/Diphenhydramine HCl 75 mg/Lidocaine 30 ml 0 ml PO QID [facility] Last Admin: 12/01/16 22:00 Dose: Not Given Diphenhydramine HCl (Benadryl) 50 mg IVP HS PRN PRN Reason: Insomnia Last Admin: 11/27/16 01:00 Dose: 50 mg Ergocalciferol (Drisdol 50,000 Intl Units Cap) 1 cap PO Q7D [facility] Last Admin: 11/19/16 18:04 Dose: Not Given Ferrous Sulfate (Feosol) 324 mg PO TID [facility] Last Admin: 12/02/16 09:44 Dose: Not Given Fluconazole (Diflucan) 200 mg PO DAILY [facility] PRN Reason: Protocol Stop: 12/12/16 10:01 Last Admin: 12/02/16 09:44 Dose: Not Given Home Med (Home Med) 1 unit PO Q12H PRN PRN Reason: Inflammation Last Admin: 10/18/16 11:03 Dose: 1 unit Hydralazine HCl (Apresoline) 10 mg IVP Q4H PRN PRN Reason: Systolic Blood Pressure Hydromorphone HCl (Dilaudid) 1 mg IVP Q1H PRN PRN Reason: Pain, moderate (4-7) Last Admin: 12/02/16 06:52 Dose: 1 mg Levetiracetam (Keppra 500mg Ivpb) 500 mg in 100 mls @ 400 mls/hr IV Q12 [facility] Last Admin: 12/02/16 09:45 Dose: 400 mls/hr Potassium Chloride (Potassium Chloride 10 Meq/100 Ml) 10 meq in 100 mls @ 100 mls/hr IVPB Q2H [facility] Stop: 12/02/16 16:44 Potassium Chloride 40 meq/ (Dextrose) 520 mls @ 60 mls/hr IV .Q8H40M [facility] Stop: 12/04/16 10:46 Magnesium Hydroxide (Milk Of Magnesia) 30 ml PO DAILY PRN PRN Reason: skin irritation Last Admin: 12/01/16 14:37 Dose: 30 ml Magnesium Oxide (Mag-Ox) 400 mg PO BID [facility] Last Admin: 12/02/16 09:44 Dose: Not Given Multi-Ingredient Ointment (Hydrophor Oint) 0 gm TOP Q6H PRN PRN Reason: Dry lip Multivitamins (Thera Tab) 1 tab PO 0800 [facility] Last Admin: 12/02/16 08:10 Dose: Not Given Propranolol HCl (Inderal La) 120 mg PO DAILY [facility] Last Admin: 12/02/16 09:44 Dose: Not Given Sucralfate (Carafate Oral Susp) 1 gm PO BID [facility] Last Admin: 12/02/16 09:43 Dose: Not Given - Labs Labs: 12/02/16 06:00 12/02/16 06:00 PT 12.9 Seconds (9.9-11.8) H 12/02/16 06:00 INR 1.19 (0.93-1.08) H 12/02/16 06:00 APTT 32.9 Seconds (23.7-30.8) H 12/02/16 06:00 - Constitutional Appears: Unkempt - Eye Exam Eye Exam: absent: PERRL Pupil Exam: absent: PERRL - ENT Exam ENT Exam: Mucous Membranes Moist - Respiratory Exam Respiratory Exam: Clear to Ausculation Bilateral - Cardiovascular Exam Cardiovascular Exam: REGULAR RHYTHM, +S1, +S2. absent: Gallop, Rubs - GI/Abdominal Exam GI & Abdominal Exam: Soft. absent: Tenderness, Mass - Neurological Exam Neurological Exam: Altered, Awake. absent: Oriented x3 - Skin Skin Exam: Dry Additional comments: ulceration around ostomy site Assessment and Plan - Assessment and Plan (Free Text) Assessment: 61 F Colon CA and Sacral decub w/ worsening mental status POD15 s/p Marquita's Plan: c/w current medical management Milk of Magnesia on excoriation at colostomy wound site, dry site, change colostomy bag. Monitor for signs of infection at the colostomy site. Monitor midline incision for signs of infection, dehiscence, inflammation and drainage No surgical intervention at this time d/w Dr. Kaykay Lucio PGY1 <Yoan Mccracken - Last Filed: 12/03/16 00:02> Objective - Vital Signs/Intake and Output Vital Signs (last 24 hours): Temp Pulse Resp BP Pulse Ox 97.8 F 101 H 18 170/89 H 100 12/02/16 16:00 12/02/16 16:00 12/02/16 16:00 12/02/16 16:00 12/02/16 16:00 Intake and Output: 12/02/16 12/03/16 18:59 06:59 Intake Total 120 Output Total 450 600 Balance -450 -480 - Medications Medications: Current Medications Acetaminophen (Tylenol 650 Mg Supp) 650 mg RC Q4H PRN PRN Reason: Fever >100.4 F Last Admin: 11/01/16 21:18 Dose: 650 mg Al Hydrox/Mg Hydrox/Simethicone 30 ml/Diphenhydramine HCl 75 mg/Lidocaine 30 ml 0 ml PO QID [facility] Last Admin: 12/02/16 21:01 Dose: Not Given Diphenhydramine HCl (Benadryl) 50 mg IVP HS PRN PRN Reason: Insomnia Last Admin: 11/27/16 01:00 Dose: 50 mg Ergocalciferol (Drisdol 50,000 Intl Units Cap) 1 cap PO Q7D [facility] Last Admin: 11/19/16 18:04 Dose: Not Given Ferrous Sulfate (Feosol) 324 mg PO TID [facility] Last Admin: 12/02/16 18:16 Dose: Not Given Fluconazole (Diflucan) 200 mg PO DAILY [facility] PRN Reason: Protocol Stop: 12/12/16 10:01 Last Admin: 12/02/16 09:44 Dose: Not Given Home Med (Home Med) 1 unit PO Q12H PRN PRN Reason: Inflammation Last Admin: 10/18/16 11:03 Dose: 1 unit Hydralazine HCl (Apresoline) 10 mg IVP Q4H PRN PRN Reason: Systolic Blood Pressure Hydromorphone HCl (Dilaudid) 1 mg IVP Q1H PRN PRN Reason: Pain, moderate (4-7) Last Admin: 12/02/16 21:06 Dose: 1 mg Levetiracetam (Keppra 500mg Ivpb) 500 mg in 100 mls @ 400 mls/hr IV Q12 [facility] Last Admin: 12/02/16 21:06 Dose: 400 mls/hr Potassium Chloride/Dextrose (Potassium Chl 40 Meq In D5w) 1,000 mls @ 60 mls/ hr IV .[id number] [facility] Last Admin: 12/02/16 18:17 Dose: Not Given Magnesium Hydroxide (Milk Of Magnesia) 30 ml PO DAILY PRN PRN Reason: skin irritation Last Admin: 12/02/16 14:09 Dose: 30 ml Magnesium Oxide (Mag-Ox) 400 mg PO BID [facility] Last Admin: 12/02/16 18:16 Dose: Not Given Multi-Ingredient Ointment (Hydrophor Oint) 0 gm TOP Q6H PRN PRN Reason: Dry lip Multivitamins (Thera Tab) 1 tab PO 0800 [facility] Last Admin: 12/02/16 08:10 Dose: Not Given Propranolol HCl (Inderal La) 120 mg PO DAILY [facility] Last Admin: 12/02/16 09:44 Dose: Not Given Sucralfate (Carafate Oral Susp) 1 gm PO BID [facility] Last Admin: 12/02/16 18:16 Dose: Not Given - Labs Labs: 12/02/16 06:00 12/02/16 06:00 PT 12.9 Seconds (9.9-11.8) H 12/02/16 06:00 INR 1.19 (0.93-1.08) H 12/02/16 06:00 APTT 32.9 Seconds (23.7-30.8) H 12/02/16 06:00 Assessment and Plan - Assessment and Plan (Free Text) Plan: Patient was seen and examined by me. I agree with assessment and plan as per resident's note.
[2016-12-02] MEDS: Aluminum Hydroxide/Magnesium 30 ML, DiphenhydrAMINE 75 MG, Lidocaine 2% Viscous 30 ML PO SCH ×4 (11:55→21:01)
--- NOTE | 2016-12-02 13:50 | PN ---
DATE: 12/02/2016 SUBJECTIVE: The patient is in bed, in no acute distress; nontoxic. PHYSICAL EXAMINATION: VITAL SIGNS: Temperature is 98, blood pressure is 140/100, respiratory rate of 19 and heart rate of 120. HEENT: Unremarkable. NECK: Supple. LUNGS: Decreased breath sounds. HEART: Normal S1 and S2. ABDOMEN: Soft. LABORATORY DATA: Reveal a white count of 10,000, hemoglobin of 10, platelets of 71. BUN of 14, creatinine of 0.3. Review of orders reveal the patient to have p.o. Diflucan. ASSESSMENT AND PLAN: A 61-year-old female with sepsis, with nirmal fungemia, status post Port-A-Cath removal, postop procedure day #20, now with metastasis to the brain in a patient with stage IV colon cancer completing the p.o. Diflucan therapy. Overall prognosis is quite poor for this patient who is end stage. Recommend a hospice setting. Lang Akhtar MD
[2016-12-02] MEDS: Magnesium Hydroxide Susp 30 ml UD PO PRN (14:09)
[2016-12-02] MEDS ORDERED: Potassium Chl 40mEq & D5W 1,000 ML IV SCH (14:45)
--- NOTE | 2016-12-02 17:19 | PN ---
DATE: 12/02/2016 REASON FOR CONSULTATION: Status post rapid response CVA, seizure disorders, tachycardia. SUBJECTIVE: The patient is lying flat. No new complaint. OBJECTIVE: VITAL SIGNS: Temperature afebrile, heart rate 91, blood pressure 167/97. HEENT: PERRLA intact. NECK: Supple. No carotid bruit or thyromegaly. CHEST: Clear to auscultation. HEART: S1 and S2, regular. ABDOMEN: Soft. EXTREMITIES: Clubbing or cyanosis negative. LABORATORY DATA: Blood workup as follows; WBC 10.6, hemoglobin 10.5, hematocrit 33.7, platelet count 71. Chemistry shows sodium 145, potassium 2.9, chloride 108, carbon dioxide 33, anion gap of 7, BUN 14, creatinine 0.3. Total protein 4.3 and albumin 1.8, albumin-globulin ratio is 0.7. IMPRESSION: Severe protein-calorie malnutrition, hypokalemia, anemia, seizure disorder, possible metastatic lesion to the brain, colon cancer, status post colostomy. The patient is terminally dying. RECOMMENDATION: Continue supportive care. Strongly consider DNR/DNI. Continue gentle hydration for hypernatremia. Supplement potassium. *------* is elevated to 20.9. The patient is terminally dying. Sherrell Busby MD
--- NOTE | 2016-12-02 20:16 | CP.PCM.PN ---
Subjective - Date & Time of Evaluation Date of Evaluation: 12/01/16 Time of Evaluation: 22:00 - Subjective Subjective: Patient appears status quo. Mother at bedside. Unable to assess ROS. Patient appears comfortable Objective - Vital Signs/Intake and Output Vital Signs (last 24 hours): Temp Pulse Resp BP Pulse Ox 97.8 F 101 H 18 170/89 H 100 12/02/16 16:00 12/02/16 16:00 12/02/16 16:00 12/02/16 16:00 12/02/16 16:00 Intake and Output: 12/02/16 12/03/16 18:59 06:59 Output Total 450 Balance -450 - Medications Medications: Current Medications Acetaminophen (Tylenol 650 Mg Supp) 650 mg RC Q4H PRN PRN Reason: Fever >100.4 F Last Admin: 11/01/16 21:18 Dose: 650 mg Al Hydrox/Mg Hydrox/Simethicone 30 ml/Diphenhydramine HCl 75 mg/Lidocaine 30 ml 0 ml PO QID [facility] Last Admin: 12/02/16 18:17 Dose: Not Given Diphenhydramine HCl (Benadryl) 50 mg IVP HS PRN PRN Reason: Insomnia Last Admin: 11/27/16 01:00 Dose: 50 mg Ergocalciferol (Drisdol 50,000 Intl Units Cap) 1 cap PO Q7D [facility] Last Admin: 11/19/16 18:04 Dose: Not Given Ferrous Sulfate (Feosol) 324 mg PO TID [facility] Last Admin: 12/02/16 18:16 Dose: Not Given Fluconazole (Diflucan) 200 mg PO DAILY [facility] PRN Reason: Protocol Stop: 12/12/16 10:01 Last Admin: 12/02/16 09:44 Dose: Not Given Home Med (Home Med) 1 unit PO Q12H PRN PRN Reason: Inflammation Last Admin: 10/18/16 11:03 Dose: 1 unit Hydralazine HCl (Apresoline) 10 mg IVP Q4H PRN PRN Reason: Systolic Blood Pressure Hydromorphone HCl (Dilaudid) 1 mg IVP Q1H PRN PRN Reason: Pain, moderate (4-7) Last Admin: 12/02/16 17:27 Dose: 1 mg Levetiracetam (Keppra 500mg Ivpb) 500 mg in 100 mls @ 400 mls/hr IV Q12 [facility] Last Admin: 12/02/16 09:45 Dose: 400 mls/hr Potassium Chloride/Dextrose (Potassium Chl 40 Meq In D5w) 1,000 mls @ 60 mls/ hr IV .[id number] [facility] Last Admin: 12/02/16 18:17 Dose: Not Given Magnesium Hydroxide (Milk Of Magnesia) 30 ml PO DAILY PRN PRN Reason: skin irritation Last Admin: 12/02/16 14:09 Dose: 30 ml Magnesium Oxide (Mag-Ox) 400 mg PO BID [facility] Last Admin: 12/02/16 18:16 Dose: Not Given Multi-Ingredient Ointment (Hydrophor Oint) 0 gm TOP Q6H PRN PRN Reason: Dry lip Multivitamins (Thera Tab) 1 tab PO 0800 [facility] Last Admin: 12/02/16 08:10 Dose: Not Given Propranolol HCl (Inderal La) 120 mg PO DAILY [facility] Last Admin: 12/02/16 09:44 Dose: Not Given Sucralfate (Carafate Oral Susp) 1 gm PO BID [facility] Last Admin: 12/02/16 18:16 Dose: Not Given - Labs Labs: 12/02/16 06:00 12/02/16 06:00 PT 12.9 Seconds (9.9-11.8) H 12/02/16 06:00 INR 1.19 (0.93-1.08) H 12/02/16 06:00 APTT 32.9 Seconds (23.7-30.8) H 12/02/16 06:00 - Constitutional Appears: Non-toxic, Confused - Head Exam Head Exam: ATRAUMATIC, NORMAL INSPECTION, NORMOCEPHALIC - Respiratory Exam Respiratory Exam: Clear to Ausculation Bilateral, NORMAL BREATHING PATTERN - Cardiovascular Exam Cardiovascular Exam: REGULAR RHYTHM, +S1, +S2. absent: Murmur - GI/Abdominal Exam GI & Abdominal Exam: Bruit - Extremities Exam Extremities Exam: Full ROM, Normal Capillary Refill, Normal Inspection. absent : Joint Swelling, Pedal Edema - Neurological Exam Additional comments: Opens eyes to name. Able to squeeze left hand when asked to and tracks with eyes Assessment and Plan (1) Colon tumor Status: Chronic - Assessment and Plan (Free Text) Assessment: Ms. Perruccia arik 61 y/o woman with pmhx signifiant for Kras mutated, NICOL metastatic colorectal cancer c/b cauda quina s/p XRT and 2 cycles of FOLFOX + avastin who was initially admitted for neutropenic sepsis (10/09/16) in setting of radiation enteritis and whose hospital course has been complicated by severe mucositis (since resolved), fungemia, rectal bleeding s/p Bailey pouch colostomy creation whose hosptial course has been complicated by melena (now resolving) and most recently AMS in setting of possible siezure activity with subseqequent MRI imaging demonstrating several lesions concerning for ischemic infarct with possible hemorrhagic conversion and left parietal lesions supscious for metasatic focus Mental status appears stable Spent extensive time with patient's mother. Discussed goals of care. Decided that that patietn would continue to receive medical treatment for next few days. If mental status and neurologic function does not show recovery will revisit goals of care and discuss palliative options potentially. 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
--- NOTE | 2016-12-02 20:21 | CP.PCM.PN ---
Subjective - Date & Time of Evaluation Date of Evaluation: 12/02/16 Time of Evaluation: 21:00 - Subjective Subjective: Patient noted to by sister to have transient jerks of right hand. Received 1 unit of platelsts this AM. Mother and father at bedside. Mother notes some white exudate in mouth. Notes that patient appears more alert and enganging Objective - Vital Signs/Intake and Output Vital Signs (last 24 hours): Temp Pulse Resp BP Pulse Ox 97.8 F 101 H 18 170/89 H 100 12/02/16 16:00 12/02/16 16:00 12/02/16 16:00 12/02/16 16:00 12/02/16 16:00 Intake and Output: 12/02/16 12/03/16 18:59 06:59 Output Total 450 Balance -450 - Medications Medications: Current Medications Acetaminophen (Tylenol 650 Mg Supp) 650 mg RC Q4H PRN PRN Reason: Fever >100.4 F Last Admin: 11/01/16 21:18 Dose: 650 mg Al Hydrox/Mg Hydrox/Simethicone 30 ml/Diphenhydramine HCl 75 mg/Lidocaine 30 ml 0 ml PO QID [facility] Last Admin: 12/02/16 18:17 Dose: Not Given Diphenhydramine HCl (Benadryl) 50 mg IVP HS PRN PRN Reason: Insomnia Last Admin: 11/27/16 01:00 Dose: 50 mg Ergocalciferol (Drisdol 50,000 Intl Units Cap) 1 cap PO Q7D [facility] Last Admin: 11/19/16 18:04 Dose: Not Given Ferrous Sulfate (Feosol) 324 mg PO TID [facility] Last Admin: 12/02/16 18:16 Dose: Not Given Fluconazole (Diflucan) 200 mg PO DAILY [facility] PRN Reason: Protocol Stop: 12/12/16 10:01 Last Admin: 12/02/16 09:44 Dose: Not Given Home Med (Home Med) 1 unit PO Q12H PRN PRN Reason: Inflammation Last Admin: 10/18/16 11:03 Dose: 1 unit Hydralazine HCl (Apresoline) 10 mg IVP Q4H PRN PRN Reason: Systolic Blood Pressure Hydromorphone HCl (Dilaudid) 1 mg IVP Q1H PRN PRN Reason: Pain, moderate (4-7) Last Admin: 12/02/16 17:27 Dose: 1 mg Levetiracetam (Keppra 500mg Ivpb) 500 mg in 100 mls @ 400 mls/hr IV Q12 [facility] Last Admin: 12/02/16 09:45 Dose: 400 mls/hr Potassium Chloride/Dextrose (Potassium Chl 40 Meq In D5w) 1,000 mls @ 60 mls/ hr IV .[id number] [facility] Last Admin: 12/02/16 18:17 Dose: Not Given Magnesium Hydroxide (Milk Of Magnesia) 30 ml PO DAILY PRN PRN Reason: skin irritation Last Admin: 12/02/16 14:09 Dose: 30 ml Magnesium Oxide (Mag-Ox) 400 mg PO BID [facility] Last Admin: 12/02/16 18:16 Dose: Not Given Multi-Ingredient Ointment (Hydrophor Oint) 0 gm TOP Q6H PRN PRN Reason: Dry lip Multivitamins (Thera Tab) 1 tab PO 0800 [facility] Last Admin: 12/02/16 08:10 Dose: Not Given Propranolol HCl (Inderal La) 120 mg PO DAILY [facility] Last Admin: 12/02/16 09:44 Dose: Not Given Sucralfate (Carafate Oral Susp) 1 gm PO BID [facility] Last Admin: 12/02/16 18:16 Dose: Not Given - Labs Labs: 12/02/16 06:00 12/02/16 06:00 PT 12.9 Seconds (9.9-11.8) H 12/02/16 06:00 INR 1.19 (0.93-1.08) H 12/02/16 06:00 APTT 32.9 Seconds (23.7-30.8) H 12/02/16 06:00 - Constitutional Appears: Non-toxic - Head Exam Head Exam: ATRAUMATIC, NORMAL INSPECTION, NORMOCEPHALIC - Respiratory Exam Respiratory Exam: Clear to Ausculation Bilateral, NORMAL BREATHING PATTERN - Cardiovascular Exam Cardiovascular Exam: Bradycardia - Extremities Exam Extremities Exam: Full ROM, Normal Capillary Refill, Normal Inspection. absent : Joint Swelling, Pedal Edema Assessment and Plan (1) Colon tumor Status: Chronic - Assessment and Plan (Free Text) Assessment: Ms. 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 s/p XRT and 2 cycles of FOLFOX + avastin who was initially admitted for neutropenic sepsis (10/09/16) in setting of radiation enteritis and whose hospital course has been complicated by severe mucositis (since resolved), fungemia, rectal bleeding s/p Bailey pouch colostomy creation whose hosptial course has been complicated by melena (now resolving) and most recently AMS in setting of possible siezure activity with subseqequent MRI imaging demonstrating several lesions concerning for ischemic infarct with possible hemorrhagic conversion and left parietal lesions supscious for metasatic focus Mental status appears stable/improved? Staff and family told to page should patient have any additional episodes of twitching. If so would need to consult with neurology regarding role for epileptical activity Spent extensive time with patient's mother. Discussed goals of care. Decided that that patient would continue to receive medical treatment for next few days. If mental status and neurologic function does not show recovery will revisit goals of care and discuss palliative options potentially. #AMS in setting of CVA/brain met -appreciate neurology consulatioon -conintue keppra IV BID -trasfuse for plts <100 given concern for hemorrahgic conervsiopn -continue to observe #neuropathic pain -continue dilaudid PRN -holding patch and ROLLOFF DRIVER #UGIB -no source of bleeding found -conintue to observe hgb which apears stable #Fungemia likely 2/2 to mediport -appareciate ID recomendations -abx; last cultures negative #FEN: -consider restarting TPN given minimal PO intake #Dispo -remains to to be dermined -over all prognosis guarded Luis Fernando Hendricks MD Oncology Service
[2016-12-03] MEDS: HYDROmorphone 1 mg/ml ISec IVP PRN ×5 (05:09→23:59)
--- NOTE | 2016-12-03 06:58 | CP.PCM.PN ---
Subjective - Date & Time of Evaluation Date of Evaluation: 12/02/16 Time of Evaluation: 13:45 - Subjective Subjective: Patient's sister was at bedside at the time of examination. Patient has jerking movements right upper approximately. Patient was awake. There was air in the colostomy bag with a small output Objective - Vital Signs/Intake and Output Vital Signs (last 24 hours): Temp Pulse Resp BP Pulse Ox 97.8 F 101 H 18 170/89 H 100 12/02/16 16:00 12/02/16 16:00 12/02/16 16:00 12/02/16 16:00 12/02/16 16:00 Intake and Output: 12/02/16 12/03/16 18:59 06:59 Intake Total 120 Output Total 450 600 Balance -450 -480 - Medications Medications: Current Medications Acetaminophen (Tylenol 650 Mg Supp) 650 mg RC Q4H PRN PRN Reason: Fever >100.4 F Last Admin: 11/01/16 21:18 Dose: 650 mg Al Hydrox/Mg Hydrox/Simethicone 30 ml/Diphenhydramine HCl 75 mg/Lidocaine 30 ml 0 ml PO QID [facility] Last Admin: 12/02/16 21:01 Dose: Not Given Diphenhydramine HCl (Benadryl) 50 mg IVP HS PRN PRN Reason: Insomnia Last Admin: 11/27/16 01:00 Dose: 50 mg Ergocalciferol (Drisdol 50,000 Intl Units Cap) 1 cap PO Q7D [facility] Last Admin: 11/19/16 18:04 Dose: Not Given Ferrous Sulfate (Feosol) 324 mg PO TID [facility] Last Admin: 12/02/16 18:16 Dose: Not Given Fluconazole (Diflucan) 200 mg PO DAILY [facility] PRN Reason: Protocol Stop: 12/12/16 10:01 Last Admin: 12/02/16 09:44 Dose: Not Given Home Med (Home Med) 1 unit PO Q12H PRN PRN Reason: Inflammation Last Admin: 10/18/16 11:03 Dose: 1 unit Hydralazine HCl (Apresoline) 10 mg IVP Q4H PRN PRN Reason: Systolic Blood Pressure Hydromorphone HCl (Dilaudid) 1 mg IVP Q1H PRN PRN Reason: Pain, moderate (4-7) Last Admin: 12/02/16 21:06 Dose: 1 mg Levetiracetam (Keppra 500mg Ivpb) 500 mg in 100 mls @ 400 mls/hr IV Q12 [facility] Last Admin: 12/02/16 21:06 Dose: 400 mls/hr Potassium Chloride/Dextrose (Potassium Chl 40 Meq In D5w) 1,000 mls @ 60 mls/ hr IV .[id number] [facility] Last Admin: 12/02/16 18:17 Dose: Not Given Magnesium Hydroxide (Milk Of Magnesia) 30 ml PO DAILY PRN PRN Reason: skin irritation Last Admin: 12/02/16 14:09 Dose: 30 ml Magnesium Oxide (Mag-Ox) 400 mg PO BID [facility] Last Admin: 12/02/16 18:16 Dose: Not Given Multi-Ingredient Ointment (Hydrophor Oint) 0 gm TOP Q6H PRN PRN Reason: Dry lip Multivitamins (Thera Tab) 1 tab PO 0800 [facility] Last Admin: 12/02/16 08:10 Dose: Not Given Propranolol HCl (Inderal La) 120 mg PO DAILY [facility] Last Admin: 12/02/16 09:44 Dose: Not Given Sucralfate (Carafate Oral Susp) 1 gm PO BID [facility] Last Admin: 12/02/16 18:16 Dose: Not Given - Labs Labs: 12/02/16 06:00 12/02/16 06:00 PT 12.9 Seconds (9.9-11.8) H 12/02/16 06:00 INR 1.19 (0.93-1.08) H 12/02/16 06:00 APTT 32.9 Seconds (23.7-30.8) H 12/02/16 06:00 - Head Exam Head Exam: ATRAUMATIC, NORMOCEPHALIC - Eye Exam Eye Exam: EOMI, PERRL - ENT Exam ENT Exam: Mucous Membranes Moist - Neck Exam Neck Exam: absent: Lymphadenopathy - Respiratory Exam Respiratory Exam: NORMAL BREATHING PATTERN. absent: Rhonchi - Cardiovascular Exam Cardiovascular Exam: +S1, +S2. absent: JVD - GI/Abdominal Exam GI & Abdominal Exam: Soft, Normal Bowel Sounds Additional comments: Care in the colostomy with minimal output. Mild tenderness on deep palpation - Neurological Exam Neurological Exam: Alert, Awake, Oriented x3 Assessment and Plan - Assessment and Plan (Free Text) Plan: This 61-year-old patient with metastatic care colorectal carcinoma has brain metastases/CVA. Patient has now transitioned to changing the right upper extremities patient is being followed by a neurologist. Progression is being supplemented at the time of examination. He received a platelet transfusion. LFTs ALK showing downward trend hemoglobin relatively stable By mouth intake when one the patient is alert with assistance this was explained to the family members and also nursing staff
[2016-12-03 08:01] LABS: INR 1.19 (0.93-1.08); PARTIAL THROMBOPLASTIN TIME 32.5 Seconds (23.7-30.8); PROTHROMBIN TIME 12.9 Seconds (9.9-11.8)
[2016-12-03 08:08] LABS: ALB/GLOB RATIO 0.8 (1.1-1.8); ALBUMIN 2.1 g/dL (3.0-4.8); ALT/SGPT 25 U/L (7-56); AST/SGOT 21 U/L (15-39); BLOOD UREA NITROGEN 12 mg/dL (7-21); CALCIUM 7.8 mg/dL (8.4-10.5); GFR AFRICAN-AMERICAN > 60; GFR NON-AFRICAN AMERICAN > 60; MAGNESIUM 1.5 mg/dL (1.7-2.2)
[2016-12-03 08:41] LABS: HEMOGLOBIN 10.9 gm/dL (12.0-16.0); MEAN CELL VOLUME 95.4 fL (80.0-105.0); MEAN CORPUSCULAR HEMOGLOBIN 31.5 pg (25.0-35.0); PLATELET COUNT 124 10^3/uL (120.0-450.0); RBC 3.46 10^6/uL (3.5-6.1); RED CELL DISTRIBUTION WIDTH 15.8 % (11.5-14.5)
--- NOTE | 2016-12-03 09:15 | CP.PCM.PN ---
<Dereje London - Last Filed: 12/04/16 08:08> Subjective - Date & Time of Evaluation Date of Evaluation: 12/03/16 Time of Evaluation: 09:01 - Subjective Subjective: General Surgery Dr. Felix Patient seen and examined at bedside this morning. No acute events overnight. Patient was difficult to arouse and quickly returned back to sleep. She responded to painful stimuli but not to verbal stimuli. Objective - Vital Signs/Intake and Output Vital Signs (last 24 hours): Temp Pulse Resp BP Pulse Ox 98.6 F 104 H 20 163/108 H 100 12/03/16 07:58 12/03/16 07:58 12/03/16 07:58 12/03/16 07:58 12/03/16 07:58 Intake and Output: 12/03/16 12/03/16 06:59 18:59 Intake Total 120 Output Total 600 Balance -480 - Medications Medications: Current Medications Acetaminophen (Tylenol 650 Mg Supp) 650 mg RC Q4H PRN PRN Reason: Fever >100.4 F Last Admin: 11/01/16 21:18 Dose: 650 mg Al Hydrox/Mg Hydrox/Simethicone 30 ml/Diphenhydramine HCl 75 mg/Lidocaine 30 ml 0 ml PO QID [facility] Last Admin: 12/02/16 21:01 Dose: Not Given Diphenhydramine HCl (Benadryl) 50 mg IVP HS PRN PRN Reason: Insomnia Last Admin: 11/27/16 01:00 Dose: 50 mg Ergocalciferol (Drisdol 50,000 Intl Units Cap) 1 cap PO Q7D [facility] Last Admin: 11/19/16 18:04 Dose: Not Given Ferrous Sulfate (Feosol) 324 mg PO TID [facility] Last Admin: 12/02/16 18:16 Dose: Not Given Fluconazole (Diflucan) 200 mg PO DAILY [facility] PRN Reason: Protocol Stop: 12/12/16 10:01 Last Admin: 12/02/16 09:44 Dose: Not Given Home Med (Home Med) 1 unit PO Q12H PRN PRN Reason: Inflammation Last Admin: 10/18/16 11:03 Dose: 1 unit Hydralazine HCl (Apresoline) 10 mg IVP Q4H PRN PRN Reason: Systolic Blood Pressure Hydromorphone HCl (Dilaudid) 1 mg IVP Q1H PRN PRN Reason: Pain, moderate (4-7) Last Admin: 12/03/16 06:57 Dose: 1 mg Levetiracetam (Keppra 500mg Ivpb) 500 mg in 100 mls @ 400 mls/hr IV Q12 [facility] Last Admin: 12/02/16 21:06 Dose: 400 mls/hr Potassium Chloride/Dextrose (Potassium Chl 40 Meq In D5w) 1,000 mls @ 60 mls/ hr IV .[id number] [facility] Last Admin: 12/02/16 18:17 Dose: Not Given Magnesium Hydroxide (Milk Of Magnesia) 30 ml PO DAILY PRN PRN Reason: skin irritation Last Admin: 12/02/16 14:09 Dose: 30 ml Magnesium Oxide (Mag-Ox) 400 mg PO BID [facility] Last Admin: 12/02/16 18:16 Dose: Not Given Multi-Ingredient Ointment (Hydrophor Oint) 0 gm TOP Q6H PRN PRN Reason: Dry lip Multivitamins (Thera Tab) 1 tab PO 0800 [facility] Last Admin: 12/02/16 08:10 Dose: Not Given Propranolol HCl (Inderal La) 120 mg PO DAILY [facility] Last Admin: 12/02/16 09:44 Dose: Not Given Sucralfate (Carafate Oral Susp) 1 gm PO BID [facility] Last Admin: 12/02/16 18:16 Dose: Not Given - Labs Labs: 12/03/16 07:30 12/03/16 07:30 PT 12.9 Seconds (9.9-11.8) H 12/03/16 07:30 INR 1.19 (0.93-1.08) H 12/03/16 07:30 APTT 32.5 Seconds (23.7-30.8) H 12/03/16 07:30 - Constitutional Appears: No Acute Distress - ENT Exam ENT Exam: Mucous Membranes Moist - Respiratory Exam Respiratory Exam: NORMAL BREATHING PATTERN. absent: Accessory Muscle Use, Respiratory Distress - Cardiovascular Exam Cardiovascular Exam: REGULAR RHYTHM - GI/Abdominal Exam GI & Abdominal Exam: Soft. absent: Distended, Guarding Additional comments: Ostomy producing bilious, non-melonic fecal material. Surgical incision intact, healing appropriately. - Neurological Exam Additional comments: Responding to painful stimuli only. Pulled away from sternal rub, but would not awake to be further examined. - Skin Skin Exam: Dry, Normal Color, Warm Assessment and Plan - Assessment and Plan (Free Text) Assessment: 61 F Colon CA and Sacral decub w/ worsening mental status POD16 s/p Marquita's Plan: Continue with current medical management. Monitor H+H, Hgb 10.9, Hct 33.0 Apply milk of magnesia on excoriation at the colostomy site, keep dry and change colostomy bag prn Monitor surgical midline incision and ostomy sites for signs of infection, inflammation, drainage or dehiscence. No need for surgical intervention at this time. Will discuss with Dr. Kaykay Reyez Lita PGY 1 <Yoan Mccracken - Last Filed: 12/12/16 23:16> Objective - Vital Signs/Intake and Output Vital Signs (last 24 hours): Temp Pulse Resp BP Pulse Ox 98.5 F 160 H 20 157/90 H 97 12/12/16 06:00 12/12/16 06:00 12/12/16 06:00 12/12/16 06:00 12/12/16 06:00 Intake and Output: 12/12/16 12/13/16 18:59 06:59 Intake Total 0 Output Total 300 Balance -300 - Medications Medications: Current Medications Acetaminophen (Tylenol 650 Mg Supp) 650 mg RC Q4H PRN PRN Reason: Fever >100.4 F Last Admin: 11/01/16 21:18 Dose: 650 mg Albuterol/Ipratropium (Duoneb 3 Mg/0.5 Mg (3 Ml) Ud) 3 ml IH [id number] PRN PRN Reason: Cough and congestion Last Admin: 12/12/16 22:10 Dose: 3 ml Collagenase (Santyl) 0 gm TOP DAILY [facility] Last Admin: 12/12/16 09:16 Dose: 1 applic Diphenhydramine HCl (Benadryl) 50 mg IVP Q12H PRN PRN Reason: Allergy symptoms Levetiracetam 1,000 mg/ Sodium (Chloride) 110 mls @ 460 mls/hr IV Q12 [facility] Last Admin: 12/12/16 21:50 Dose: 460 mls/hr Valproate Sodium 500 mg/ (Sodium Chloride) 105 mls @ 100 mls/hr IVPB Q12 [facility] Last Admin: 12/12/16 21:50 Dose: 100 mls/hr Hydromorphone HCl (Dilaudid-Hp 1 Mg/Ml Engineering Project Designer) 25 mls @ 1.5 mls/hr IV .[id number] [facility] Lorazepam (Ativan) 2 mg IVP Q6 PRN; Protocol PRN Reason: Seizure activity Last Admin: 12/12/16 18:22 Dose: 2 mg Magnesium Hydroxide (Milk Of Magnesia) 30 ml PO DAILY PRN PRN Reason: skin irritation Last Admin: 12/02/16 14:09 Dose: 30 ml Multi-Ingredient Ointment (Hydrophor Oint) 0 gm TOP Q6H PRN PRN Reason: Dry lip Scopolamine (Transderm-Scop) 1 patch TD Q3D [facility] Last Admin: 12/12/16 09:49 Dose: 1 patch - Labs Labs: 12/12/16 07:45 12/12/16 07:45 PT 12.7 Seconds (9.9-11.8) H 12/07/16 06:30 INR 1.18 (0.93-1.08) H 12/07/16 06:30 APTT 37.1 Seconds (23.7-30.8) H 12/07/16 06:30 Assessment and Plan - Assessment and Plan (Free Text) Plan: Patient was seen and examined by me. I agree with assessment and plan as per resident's note.
[2016-12-03 09:19] LABS: BAND 5 % (0-2); LYMPHOCYTE 1 % (22.0-35.0); MONOCYTE 5 % (1.0-6.0); MYELOCYTE 1 %; NEUTROPHIL 88 % (50.0-70.0)
[2016-12-03 09:20] LABS: PLATELET ESTIMATE NORMAL (NORMAL)
[2016-12-03] MEDS: Multivitamin Therapeutic Tab PO SCH (09:26)
[2016-12-03] MEDS: Sucralfate 1 gm/10 ml Oral Susp UD PO SCH ×2 (09:26→17:06)
[2016-12-03] MEDS: levETIRAcetam 500mg IVPB 500 MG/100 ML BAG IV SCH ×2 (09:27→21:30)
[2016-12-03] MEDS: Propranolol 60 mg ER Cap PO SCH (09:27)
[2016-12-03] MEDS: Aluminum Hydroxide/Magnesium 30 ML, DiphenhydrAMINE 75 MG, Lidocaine 2% Viscous 30 ML PO SCH ×4 (09:28→21:12)
[2016-12-03] MEDS: Magnesium Oxide 400 mg Tab UD PO SCH ×2 (09:28→17:07)
--- NOTE | 2016-12-03 09:35 | CP.PCM.PN ---
Subjective - Date & Time of Evaluation Date of Evaluation: 12/03/16 Time of Evaluation: 09:26 - Subjective Subjective: PGY-[address] Hendricks MRI-brain w contrast R cerebral hemisphere - 0.2cm enhancing mass with moderate local edema L occipital lobe - 3.9cm probably subacute infarct vs glioma Bilateral frontal, right temporociipital, brain stem - could be metastes During family meeting, it was communicated that brain mets cannot be ruled out. Brain bx is definitive Pt seen to have R hand twitching at 2Hz. for 5 min. Given ativan and dilaudid. Pt did not eat. Pt cannot verbalize pain. Objective - Vital Signs/Intake and Output Vital Signs (last 24 hours): Temp Pulse Resp BP Pulse Ox 98.6 F 104 H 20 163/108 H 100 12/03/16 07:58 12/03/16 07:58 12/03/16 07:58 12/03/16 07:58 12/03/16 07:58 Intake and Output: 12/03/16 12/03/16 06:59 18:59 Intake Total 120 Output Total 600 Balance -480 - Medications Medications: Current Medications Acetaminophen (Tylenol 650 Mg Supp) 650 mg RC Q4H PRN PRN Reason: Fever >100.4 F Last Admin: 11/01/16 21:18 Dose: 650 mg Al Hydrox/Mg Hydrox/Simethicone 30 ml/Diphenhydramine HCl 75 mg/Lidocaine 30 ml 0 ml PO QID [facility] Last Admin: 12/02/16 21:01 Dose: Not Given Diphenhydramine HCl (Benadryl) 50 mg IVP HS PRN PRN Reason: Insomnia Last Admin: 11/27/16 01:00 Dose: 50 mg Ergocalciferol (Drisdol 50,000 Intl Units Cap) 1 cap PO Q7D [facility] Last Admin: 11/19/16 18:04 Dose: Not Given Ferrous Sulfate (Feosol) 324 mg PO TID [facility] Last Admin: 12/02/16 18:16 Dose: Not Given Fluconazole (Diflucan) 200 mg PO DAILY [facility] PRN Reason: Protocol Stop: 12/12/16 10:01 Last Admin: 12/02/16 09:44 Dose: Not Given Home Med (Home Med) 1 unit PO Q12H PRN PRN Reason: Inflammation Last Admin: 10/18/16 11:03 Dose: 1 unit Hydralazine HCl (Apresoline) 10 mg IVP Q4H PRN PRN Reason: Systolic Blood Pressure Hydromorphone HCl (Dilaudid) 1 mg IVP Q1H PRN PRN Reason: Pain, moderate (4-7) Last Admin: 12/03/16 06:57 Dose: 1 mg Levetiracetam (Keppra 500mg Ivpb) 500 mg in 100 mls @ 400 mls/hr IV Q12 [facility] Last Admin: 12/02/16 21:06 Dose: 400 mls/hr Potassium Chloride/Dextrose (Potassium Chl 40 Meq In D5w) 1,000 mls @ 60 mls/ hr IV .[id number] [facility] Last Admin: 12/02/16 18:17 Dose: Not Given Magnesium Hydroxide (Milk Of Magnesia) 30 ml PO DAILY PRN PRN Reason: skin irritation Last Admin: 12/02/16 14:09 Dose: 30 ml Magnesium Oxide (Mag-Ox) 400 mg PO BID [facility] Last Admin: 12/02/16 18:16 Dose: Not Given Multi-Ingredient Ointment (Hydrophor Oint) 0 gm TOP Q6H PRN PRN Reason: Dry lip Multivitamins (Thera Tab) 1 tab PO 0800 [facility] Last Admin: 12/02/16 08:10 Dose: Not Given Propranolol HCl (Inderal La) 120 mg PO DAILY [facility] Last Admin: 12/02/16 09:44 Dose: Not Given Sucralfate (Carafate Oral Susp) 1 gm PO BID [facility] Last Admin: 12/02/16 18:16 Dose: Not Given - Labs Labs: 12/03/16 07:30 12/03/16 07:30 PT 12.9 Seconds (9.9-11.8) H 12/03/16 07:30 INR 1.19 (0.93-1.08) H 12/03/16 07:30 APTT 32.5 Seconds (23.7-30.8) H 12/03/16 07:30 - Constitutional Appears: Cachectic, Chronically Ill - Eye Exam Eye Exam: PERRL. absent: Scleral icterus - ENT Exam ENT Exam: Mucous Membranes Moist - Respiratory Exam Respiratory Exam: Decreased Breath Sounds, Clear to Ausculation Bilateral. absent: Rales, Rhonchi, Wheezes - Cardiovascular Exam Cardiovascular Exam: Tachycardia, REGULAR RHYTHM, +S1, +S2 - GI/Abdominal Exam GI & Abdominal Exam: Soft, Hypoactive Bowel Sounds Additional comments: loose stool, dark color in ostomy bag - Extremities Exam Extremities Exam: Pedal Edema (slight) - Neurological Exam Additional comments: arousable by touch but cannot hold conversation/follow command - Skin Skin Exam: Dry, Warm Assessment and Plan - Assessment and Plan (Free Text) Plan: 61 F admitted on 10/09/16 with sepsis post chemotherapy with 2 cycles of FOLFOX based chemotherapy with Avastin. The hospital course was complicated by (1) seizure due to new stroke vs brain mets, (2) anemia due to GI bleeding requiring transfusion and (3) fungemia/bactermia with Port removal (11/14/16) which pt is still on oral antifungal med. Pt has zero oral intake incluing meds. Plan: Mentation decreases. On Seizure precaution. [facility] in Palliative and Dr. Hendricks have met for 45 minutes. Pt remains full code. Will plan to have another family meeting. Pending nephro rec on TPN. Altered Mental Status - seizure due to stroke vs mets - MRI/MRA : R cerebral hemisphere - 0.2cm enhancing mass with moderate local edema L occipital lobe - 3.9cm probably subacute infarct vs glioma Bilateral frontal, right temporociipital, brain stem - could be metastes - Keppra IV bid - noncontrast CT of the head: CT head on 11/27 with encephalomalacia, ct scan reveal hypodensities right cerebellum and bilateral occipital, which were there before compared to CT of the head from 10/11/16. - EEG: b/l slowing waves, no epileptic form wave - Palliative consult - 2 BURN OUT SCARFING OPERATOR was called (11/27) for blurry vision turned blank stair, which later turned tonic-clonic movements. During BURN OUT SCARFING OPERATOR, she was responsive to only painful stimuli. Left sided facial droop was experienced. Pt was trasnferred to ICU, now downgraded to remote telemetry. - Pt was hypotensive and AMS on 11/23 BURN OUT SCARFING OPERATOR due to narcotic side effect. Hb stable at 10.5 Severe anemia, s/p 4u pRBC on 11/24 - Feosol 324 TID Thrombocytopenia s/p plt transfusion Neutropenia Neuropathic Pain - Dilaudud 1q1 PRN - Hold MOLD OPERATOR for now. Hold Durgesic - Per Dr Hendricks, do not add more pain meds now. Maintain at current pain regimen. Upper GI bleed s/p EGD with push enteroscopy <-- EGD <-- bleeding scan x 2 ( negative) - No source of bleeding at examined duodedeum and jejunum - Propranolol 120 - Consider intraoperative enteroscopy or outpatient capsule endoscopy. 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 end-colostomy Susy esophagitis Pathology: Poorly differentiated colorectal adenocarcinoma metasiasis to bowel wall and serosa and one resection margin. 3/5 lymph nodes positive for metastasis - Microstaellite stable (08/13/16). Has ruled out rollins syndrome Sepsis due to C. albicans Fungemia, probably from port-a-cath Bacteremia with methicillin-resistant coagulase negative staph in repeated cx Gram negative bacilli in urine with minor - minor removed (11/24) Nose culture coagulase neg staphylococcus (11/24) - continue mycamine (day 14 since port removal) - Then switch to PO diflucan for another 2 weeks for total of 4 week antifungal tx - Off daptomycin for bactermeia r/o picc, r/o contamination (1/4 bottles) - repeated urine cx negative - observe off abx - Hold valganciclovir, no CMV on esophagus ulcer - L picc was placed on 10/31/16 which was not replaced due to coagulopathy and bleeding. Severe hypokalemia Hypernatermia Severe malnutrition, albumin 2.0 Hypomandnesemia Dysphagia - No PO intake - replete as needed - Ensure 3 can/day - Mag-Ox 400mg BID - KCL piggybag daily Edema - lasix 20q12 Prophylasix - SCD, sucralfate BID s/r/d/w Dr. Hendricks
--- NOTE | 2016-12-03 10:33 | CP.PCM.PN ---
<Laura Navarro - Last Filed: 12/03/16 12:51> Subjective - Date & Time of Evaluation Date of Evaluation: 12/03/16 Time of Evaluation: 10:35 - Subjective Subjective: PGY-2 Resident neurology progress note for Dr Moya. As per nursing, patient had right upper extremities twitching while receiving potassium infusion yesterday. As per primary patient also had another right upper extremities twitching this morning. Patient was giving a stat dose of ativan 0.5 mg around 6:30 am. This AM patient appears very lethargic, doesn't follow any commands, and not opening her eyes, likely due to ativan she got earlier in the morning. Family at bedside, all questions answered. Objective - Vital Signs/Intake and Output Vital Signs (last 24 hours): Temp Pulse Resp BP Pulse Ox 98.6 F 104 H 20 163/108 H 100 12/03/16 07:58 12/03/16 07:58 12/03/16 07:58 12/03/16 07:58 12/03/16 07:58 Intake and Output: 12/03/16 12/03/16 06:59 18:59 Intake Total 120 Output Total 600 Balance -480 - Medications Medications: Current Medications Acetaminophen (Tylenol 650 Mg Supp) 650 mg RC Q4H PRN PRN Reason: Fever >100.4 F Last Admin: 11/01/16 21:18 Dose: 650 mg Al Hydrox/Mg Hydrox/Simethicone 30 ml/Diphenhydramine HCl 75 mg/Lidocaine 30 ml 0 ml PO QID [facility] Last Admin: 12/03/16 09:28 Dose: Not Given Diphenhydramine HCl (Benadryl) 50 mg IVP HS PRN PRN Reason: Insomnia Last Admin: 11/27/16 01:00 Dose: 50 mg Ergocalciferol (Drisdol 50,000 Intl Units Cap) 1 cap PO Q7D [facility] Last Admin: 11/19/16 18:04 Dose: Not Given Ferrous Sulfate (Feosol) 324 mg PO TID [facility] Last Admin: 12/03/16 09:27 Dose: Not Given Fluconazole (Diflucan) 200 mg PO DAILY [facility] PRN Reason: Protocol Stop: 12/12/16 10:01 Last Admin: 12/03/16 09:27 Dose: Not Given Home Med (Home Med) 1 unit PO Q12H PRN PRN Reason: Inflammation Last Admin: 10/18/16 11:03 Dose: 1 unit Hydralazine HCl (Apresoline) 10 mg IVP Q4H PRN PRN Reason: Systolic Blood Pressure Hydromorphone HCl (Dilaudid) 1 mg IVP Q1H PRN PRN Reason: Pain, moderate (4-7) Last Admin: 12/03/16 06:57 Dose: 1 mg Levetiracetam (Keppra 500mg Ivpb) 500 mg in 100 mls @ 400 mls/hr IV Q12 [facility] Last Admin: 12/03/16 09:27 Dose: 400 mls/hr Potassium Chloride/Dextrose (Potassium Chl 40 Meq In D5w) 1,000 mls @ 60 mls/ hr IV .[id number] [facility] Last Admin: 12/02/16 18:17 Dose: Not Given Magnesium Hydroxide (Milk Of Magnesia) 30 ml PO DAILY PRN PRN Reason: skin irritation Last Admin: 12/02/16 14:09 Dose: 30 ml Magnesium Oxide (Mag-Ox) 400 mg PO BID [facility] Last Admin: 12/03/16 09:28 Dose: Not Given Multi-Ingredient Ointment (Hydrophor Oint) 0 gm TOP Q6H PRN PRN Reason: Dry lip Multivitamins (Thera Tab) 1 tab PO 0800 [facility] Last Admin: 12/03/16 09:26 Dose: Not Given Propranolol HCl (Inderal La) 120 mg PO DAILY [facility] Last Admin: 12/03/16 09:27 Dose: Not Given Sucralfate (Carafate Oral Susp) 1 gm PO BID [facility] Last Admin: 12/03/16 09:26 Dose: Not Given - Labs Labs: 12/03/16 07:30 12/03/16 07:30 PT 12.9 Seconds (9.9-11.8) H 12/03/16 07:30 INR 1.19 (0.93-1.08) H 12/03/16 07:30 APTT 32.5 Seconds (23.7-30.8) H 12/03/16 07:30 - Constitutional Appears: No Acute Distress, Older Than Stated Age, Confused, Cachectic, Chronically Ill - Head Exam Head Exam: ATRAUMATIC, NORMAL INSPECTION, NORMOCEPHALIC - Eye Exam Eye Exam: Normal appearance Pupil Exam: NORMAL ACCOMODATION, PERRL - ENT Exam ENT Exam: Mucous Membranes Moist - Respiratory Exam Respiratory Exam: Clear to Ausculation Bilateral, NORMAL BREATHING PATTERN. absent: Rhonchi, Wheezes, Respiratory Distress, Stridor - Cardiovascular Exam Cardiovascular Exam: REGULAR RHYTHM, +S1, +S2 - GI/Abdominal Exam GI & Abdominal Exam: Soft, Tenderness (at the incision site, ostomy in place. ) , Normal Bowel Sounds - Extremities Exam Extremities Exam: Pedal Edema - Neurological Exam Additional comments: Patient is very lethargic and drowsy, in deconditioned state. Doesn't follow commands or opens her eyes. + 2 reflexes throughout, negative babinski. - Psychiatric Exam Psychiatric exam: Depressed - Skin Skin Exam: Dry, Warm Assessment and Plan - Assessment and Plan (Free Text) Assessment: Patient is a 61 y/o with pmh of stage 4 colon ca metastatic to the bone s/p chemo with folfox 6, htn whom initially presented on 10/09 with persistent diarrhea, and was found to have severe sepsis 2nd to radiation induced enteritis , with multiple organ dysfunction, patient is s/p Hartmanns procedure for SBO. 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 Patient had another questionable muscle twitching versus seizure like episodes yesterday and this am, very drowsy at this moment likely 2nd to Ativan. Plan: - Will repeat brain MRI - Will add valproic acid 250 mg bid to keppra. - seizure, and fall precaution - Neuro checks q4. - Continue to monitor and corrct electrolytes - Avoid sedatives and opioid. - No asa, and plavix for 3 weeks - Continue with current management - Consider palliative care - Thank you for consulting Dr Moya. Patient seen, examined, and discussed with Dr Moya. <Ravi Moya - Last Filed: 12/03/16 13:22> Objective - Vital Signs/Intake and Output Vital Signs (last 24 hours): Temp Pulse Resp BP Pulse Ox 98.6 F 104 H 20 163/108 H 100 12/03/16 07:58 12/03/16 07:58 12/03/16 07:58 12/03/16 07:58 12/03/16 07:58 Intake and Output: 12/03/16 12/03/16 06:59 18:59 Intake Total 120 0 Output Total 600 200 Balance -480 -200 - Medications Medications: Current Medications Acetaminophen (Tylenol 650 Mg Supp) 650 mg RC Q4H PRN PRN Reason: Fever >100.4 F Last Admin: 11/01/16 21:18 Dose: 650 mg Al Hydrox/Mg Hydrox/Simethicone 30 ml/Diphenhydramine HCl 75 mg/Lidocaine 30 ml 0 ml PO QID [facility] Last Admin: 12/03/16 13:00 Dose: Not Given Diphenhydramine HCl (Benadryl) 50 mg IVP HS PRN PRN Reason: Insomnia Last Admin: 11/27/16 01:00 Dose: 50 mg Ergocalciferol (Drisdol 50,000 Intl Units Cap) 1 cap PO Q7D [facility] Last Admin: 11/19/16 18:04 Dose: Not Given Ferrous Sulfate (Feosol) 324 mg PO TID [facility] Last Admin: 12/03/16 09:27 Dose: Not Given Fluconazole (Diflucan) 200 mg PO DAILY [facility] PRN Reason: Protocol Stop: 12/12/16 10:01 Last Admin: 12/03/16 09:27 Dose: Not Given Home Med (Home Med) 1 unit PO Q12H PRN PRN Reason: Inflammation Last Admin: 10/18/16 11:03 Dose: 1 unit Hydralazine HCl (Apresoline) 10 mg IVP Q4H PRN PRN Reason: Systolic Blood Pressure Hydromorphone HCl (Dilaudid) 1 mg IVP Q1H PRN PRN Reason: Pain, moderate (4-7) Last Admin: 12/03/16 06:57 Dose: 1 mg Levetiracetam (Keppra 500mg Ivpb) 500 mg in 100 mls @ 400 mls/hr IV Q12 [facility] Last Admin: 12/03/16 09:27 Dose: 400 mls/hr Potassium Chloride/Dextrose (Potassium Chl 40 Meq In D5w) 1,000 mls @ 60 mls/ hr IV .[id number] [facility] Last Admin: 12/02/16 18:17 Dose: Not Given Valproate Sodium 250 mg/ (Sodium Chloride) 102.5 mls @ 100 mls/hr IVPB Q12 [facility] Last Admin: 12/03/16 12:39 Dose: 100 mls/hr Multivitamins/Vitamin C 10 ml/ (Amino Acids) 2,010 mls @ 83 mls/hr IV .Q24H [facility] Magnesium Hydroxide (Milk Of Magnesia) 30 ml PO DAILY PRN PRN Reason: skin irritation Last Admin: 12/02/16 14:09 Dose: 30 ml Magnesium Oxide (Mag-Ox) 400 mg PO BID [facility] Last Admin: 12/03/16 09:28 Dose: Not Given Multi-Ingredient Ointment (Hydrophor Oint) 0 gm TOP Q6H PRN PRN Reason: Dry lip Multivitamins (Thera Tab) 1 tab PO 0800 [facility] Last Admin: 12/03/16 09:26 Dose: Not Given Propranolol HCl (Inderal La) 120 mg PO DAILY [facility] Last Admin: 12/03/16 09:27 Dose: Not Given Sucralfate (Carafate Oral Susp) 1 gm PO BID [facility] Last Admin: 12/03/16 09:26 Dose: Not Given - Labs Labs: 12/03/16 07:30 12/03/16 07:30 PT 12.9 Seconds (9.9-11.8) H 12/03/16 07:30 INR 1.19 (0.93-1.08) H 12/03/16 07:30 APTT 32.5 Seconds (23.7-30.8) H 12/03/16 07:30 Attending/Attestation - Attestation I have personally seen and examined this patient.: Yes I have fully participated in the care of the patient.: Yes I have reviewed all pertinent clinical information, including history, physical exam and plan: Yes
[2016-12-03] MEDS: Valproate 250 MG in Sodium Chloride 0.9% 100 ML IVPB SCH ×2 (12:39→22:48)
--- NOTE | 2016-12-03 12:44 | CP.PCM.PN ---
<Yoana Osei - Last Filed: 12/03/16 12:40> Subjective - Date & Time of Evaluation Date of Evaluation: 12/03/16 Time of Evaluation: 12:15 - Subjective Subjective: S&E, chart reviewed, family at bedside, patient is lethargic, not that responsive, intermittently wakes up per family. Had jerking movements of right arm this morning,nothing noted now. NPO. Objective - Vital Signs/Intake and Output Vital Signs (last 24 hours): Temp Pulse Resp BP Pulse Ox 98.6 F 104 H 20 163/108 H 100 12/03/16 07:58 12/03/16 07:58 12/03/16 07:58 12/03/16 07:58 12/03/16 07:58 Intake and Output: 12/03/16 12/03/16 06:59 18:59 Intake Total 120 Output Total 600 Balance -480 - Medications Medications: Current Medications Acetaminophen (Tylenol 650 Mg Supp) 650 mg RC Q4H PRN PRN Reason: Fever >100.4 F Last Admin: 11/01/16 21:18 Dose: 650 mg Al Hydrox/Mg Hydrox/Simethicone 30 ml/Diphenhydramine HCl 75 mg/Lidocaine 30 ml 0 ml PO QID [facility] Last Admin: 12/03/16 09:28 Dose: Not Given Diphenhydramine HCl (Benadryl) 50 mg IVP HS PRN PRN Reason: Insomnia Last Admin: 11/27/16 01:00 Dose: 50 mg Ergocalciferol (Drisdol 50,000 Intl Units Cap) 1 cap PO Q7D [facility] Last Admin: 11/19/16 18:04 Dose: Not Given Ferrous Sulfate (Feosol) 324 mg PO TID [facility] Last Admin: 12/03/16 09:27 Dose: Not Given Fluconazole (Diflucan) 200 mg PO DAILY [facility] PRN Reason: Protocol Stop: 12/12/16 10:01 Last Admin: 12/03/16 09:27 Dose: Not Given Home Med (Home Med) 1 unit PO Q12H PRN PRN Reason: Inflammation Last Admin: 10/18/16 11:03 Dose: 1 unit Hydralazine HCl (Apresoline) 10 mg IVP Q4H PRN PRN Reason: Systolic Blood Pressure Hydromorphone HCl (Dilaudid) 1 mg IVP Q1H PRN PRN Reason: Pain, moderate (4-7) Last Admin: 12/03/16 06:57 Dose: 1 mg Levetiracetam (Keppra 500mg Ivpb) 500 mg in 100 mls @ 400 mls/hr IV Q12 [facility] Last Admin: 12/03/16 09:27 Dose: 400 mls/hr Potassium Chloride/Dextrose (Potassium Chl 40 Meq In D5w) 1,000 mls @ 60 mls/ hr IV .[id number] [facility] Last Admin: 12/02/16 18:17 Dose: Not Given Valproate Sodium 250 mg/ (Sodium Chloride) 102.5 mls @ 100 mls/hr IVPB Q12 [facility] Magnesium Hydroxide (Milk Of Magnesia) 30 ml PO DAILY PRN PRN Reason: skin irritation Last Admin: 12/02/16 14:09 Dose: 30 ml Magnesium Oxide (Mag-Ox) 400 mg PO BID [facility] Last Admin: 12/03/16 09:28 Dose: Not Given Multi-Ingredient Ointment (Hydrophor Oint) 0 gm TOP Q6H PRN PRN Reason: Dry lip Multivitamins (Thera Tab) 1 tab PO 0800 [facility] Last Admin: 12/03/16 09:26 Dose: Not Given Propranolol HCl (Inderal La) 120 mg PO DAILY [facility] Last Admin: 12/03/16 09:27 Dose: Not Given Sucralfate (Carafate Oral Susp) 1 gm PO BID [facility] Last Admin: 12/03/16 09:26 Dose: Not Given - Labs Labs: 12/03/16 07:30 12/03/16 07:30 PT 12.9 Seconds (9.9-11.8) H 12/03/16 07:30 INR 1.19 (0.93-1.08) H 12/03/16 07:30 APTT 32.5 Seconds (23.7-30.8) H 12/03/16 07:30 - Constitutional Appears: Chronically Ill - Eye Exam Eye Exam: absent: Scleral icterus - ENT Exam ENT Exam: Mucous Membranes Moist - Neck Exam Neck Exam: Normal Inspection - Respiratory Exam Respiratory Exam: NORMAL BREATHING PATTERN. absent: Respiratory Distress - Cardiovascular Exam Cardiovascular Exam: +S1, +S2 - GI/Abdominal Exam GI & Abdominal Exam: Soft, Hypoactive Bowel Sounds Additional comments: (+) ostomy, looks like dark fluid, no BRB - Neurological Exam Neurological Exam: Altered - Skin Skin Exam: Dry, Warm Assessment and Plan - Assessment and Plan (Free Text) Assessment: ASSESSMENT: Altered Mental Status, CVA, Brain metastasis, pending MRI brain New Onset Seizures Metastatic Stage IV Colon Cancer S/P Exploratory laparotomy with lysis of adhesions and repair of small bowel enterotomy and partial sigmoidectomy with end colostomy GI Bleed, S/P push enteroscopy: negative for bleed Anemia with multiple blood transfusions Elevated LFT, mainly alk phos, abdominal US done, 10/12 (+) sludge, no GB stones, CBD 5.0 cm, maybe medication induced, improving Fungemia PLAN: pending MRI NPO, continue IVF On oral Duflucan Iron supplements On Keppra/Valproate Sodium monitor cbc, electrolytes neurology following seizure precautions Consider Dobhoff VS G-tube, patient not optimal for anesthesia at this time due to recent events. Will discuss with oncology team. Seen and discussed with Dr. Null. <Tong Null V - Last Filed: 12/03/16 23:58> Objective - Vital Signs/Intake and Output Vital Signs (last 24 hours): Temp Pulse Resp BP Pulse Ox 98.3 F 100 H 19 156/84 H 100 12/03/16 16:00 12/03/16 18:00 12/03/16 16:00 12/03/16 16:00 12/03/16 16:00 Intake and Output: 12/03/16 12/04/16 18:59 06:59 Intake Total 0 0 Output Total 200 350 Balance -200 -350 - Medications Medications: Current Medications Acetaminophen (Tylenol 650 Mg Supp) 650 mg RC Q4H PRN PRN Reason: Fever >100.4 F Last Admin: 11/01/16 21:18 Dose: 650 mg Collagenase (Santyl) 0 gm TOP DAILY [facility] Hydrox/Mg Hydrox/Simethicone 30 ml/Diphenhydramine HCl 75 mg/Lidocaine 30 ml 0 ml PO QID [facility] Last Admin: 12/03/16 21:12 Dose: Not Given Diphenhydramine HCl (Benadryl) 50 mg IVP HS PRN PRN Reason: Insomnia Last Admin: 11/27/16 01:00 Dose: 50 mg Ergocalciferol (Drisdol 50,000 Intl Units Cap) 1 cap PO Q7D [facility] Last Admin: 12/03/16 17:06 Dose: Not Given Ferrous Sulfate (Feosol) 324 mg PO TID [facility] Last Admin: 12/03/16 17:07 Dose: Not Given Fluconazole (Diflucan) 200 mg PO DAILY [facility] PRN Reason: Protocol Stop: 12/12/16 10:01 Last Admin: 12/03/16 09:27 Dose: Not Given Home Med (Home Med) 1 unit PO Q12H PRN PRN Reason: Inflammation Last Admin: 10/18/16 11:03 Dose: 1 unit Hydralazine HCl (Apresoline) 10 mg IVP Q4H PRN PRN Reason: Systolic Blood Pressure Hydromorphone HCl (Dilaudid) 1 mg IVP Q1H PRN PRN Reason: Pain, moderate (4-7) Last Admin: 12/03/16 20:23 Dose: 1 mg Levetiracetam (Keppra 500mg Ivpb) 500 mg in 100 mls @ 400 mls/hr IV Q12 [facility] Last Admin: 12/03/16 21:30 Dose: 400 mls/hr Potassium Chloride/Dextrose (Potassium Chl 40 Meq In D5w) 1,000 mls @ 60 mls/ hr IV .[id number] [facility] Last Admin: 12/02/16 18:17 Dose: Not Given Valproate Sodium 250 mg/ (Sodium Chloride) 102.5 mls @ 100 mls/hr IVPB Q12 [facility] Last Admin: 12/03/16 22:48 Dose: 100 mls/hr Multivitamins/Vitamin C 10 ml/ (Amino Acids) 2,010 mls @ 83 mls/hr IV .Q24H [facility] Last Admin: 12/03/16 17:57 Dose: 83 mls/hr Micafungin Sodium 100 mg/ (Sodium Chloride) 100 mls @ 100 mls/hr IV DAILY [facility] PRN Reason: Protocol Stop: 12/13/16 15:01 Last Admin: 12/03/16 16:01 Dose: 100 mls/hr Magnesium Hydroxide (Milk Of Magnesia) 30 ml PO DAILY PRN PRN Reason: skin irritation Last Admin: 12/02/16 14:09 Dose: 30 ml Magnesium Oxide (Mag-Ox) 400 mg PO BID [facility] Last Admin: 12/03/16 17:07 Dose: Not Given Multi-Ingredient Ointment (Hydrophor Oint) 0 gm TOP Q6H PRN PRN Reason: Dry lip Multivitamins (Thera Tab) 1 tab PO 0800 [facility] Last Admin: 12/03/16 09:26 Dose: Not Given Propranolol HCl (Inderal La) 120 mg PO DAILY [facility] Last Admin: 12/03/16 09:27 Dose: Not Given Sucralfate (Carafate Oral Susp) 1 gm PO BID [facility] Last Admin: 12/03/16 17:06 Dose: Not Given - Labs Labs: 12/03/16 07:30 12/03/16 07:30 PT 12.9 Seconds (9.9-11.8) H 12/03/16 07:30 INR 1.19 (0.93-1.08) H 12/03/16 07:30 APTT 32.5 Seconds (23.7-30.8) H 12/03/16 07:30 Attending/Attestation - Attestation I have personally seen and examined this patient.: Yes I have fully participated in the care of the patient.: Yes I have reviewed all pertinent clinical information, including history, physical exam and plan: Yes Notes (Text): th
--- NOTE | 2016-12-03 13:06 | CP.PCM.PN ---
Subjective - Date & Time of Evaluation Date of Evaluation: 12/03/16 Time of Evaluation: 11:00 - Subjective Subjective: Somnolent, not opening eyes when spoken to, not following command. Objective - Vital Signs/Intake and Output Vital Signs (last 24 hours): Temp Pulse Resp BP Pulse Ox 98.6 F 104 H 20 163/108 H 100 12/03/16 07:58 12/03/16 07:58 12/03/16 07:58 12/03/16 07:58 12/03/16 07:58 Intake and Output: 12/03/16 12/03/16 06:59 18:59 Intake Total 120 0 Output Total 600 200 Balance -480 -200 - Medications Medications: Current Medications Acetaminophen (Tylenol 650 Mg Supp) 650 mg RC Q4H PRN PRN Reason: Fever >100.4 F Last Admin: 11/01/16 21:18 Dose: 650 mg Al Hydrox/Mg Hydrox/Simethicone 30 ml/Diphenhydramine HCl 75 mg/Lidocaine 30 ml 0 ml PO QID [facility] Last Admin: 12/03/16 13:00 Dose: Not Given Diphenhydramine HCl (Benadryl) 50 mg IVP HS PRN PRN Reason: Insomnia Last Admin: 11/27/16 01:00 Dose: 50 mg Ergocalciferol (Drisdol 50,000 Intl Units Cap) 1 cap PO Q7D [facility] Last Admin: 11/19/16 18:04 Dose: Not Given Ferrous Sulfate (Feosol) 324 mg PO TID [facility] Last Admin: 12/03/16 09:27 Dose: Not Given Fluconazole (Diflucan) 200 mg PO DAILY [facility] PRN Reason: Protocol Stop: 12/12/16 10:01 Last Admin: 12/03/16 09:27 Dose: Not Given Home Med (Home Med) 1 unit PO Q12H PRN PRN Reason: Inflammation Last Admin: 10/18/16 11:03 Dose: 1 unit Hydralazine HCl (Apresoline) 10 mg IVP Q4H PRN PRN Reason: Systolic Blood Pressure Hydromorphone HCl (Dilaudid) 1 mg IVP Q1H PRN PRN Reason: Pain, moderate (4-7) Last Admin: 12/03/16 06:57 Dose: 1 mg Levetiracetam (Keppra 500mg Ivpb) 500 mg in 100 mls @ 400 mls/hr IV Q12 [facility] Last Admin: 12/03/16 09:27 Dose: 400 mls/hr Potassium Chloride/Dextrose (Potassium Chl 40 Meq In D5w) 1,000 mls @ 60 mls/ hr IV .[id number] [facility] Last Admin: 12/02/16 18:17 Dose: Not Given Valproate Sodium 250 mg/ (Sodium Chloride) 102.5 mls @ 100 mls/hr IVPB Q12 [facility] Last Admin: 12/03/16 12:39 Dose: 100 mls/hr Multivitamins/Vitamin C 10 ml/ (Amino Acids) 2,010 mls @ 83 mls/hr IV .Q24H [facility] Magnesium Hydroxide (Milk Of Magnesia) 30 ml PO DAILY PRN PRN Reason: skin irritation Last Admin: 12/02/16 14:09 Dose: 30 ml Magnesium Oxide (Mag-Ox) 400 mg PO BID [facility] Last Admin: 12/03/16 09:28 Dose: Not Given Multi-Ingredient Ointment (Hydrophor Oint) 0 gm TOP Q6H PRN PRN Reason: Dry lip Multivitamins (Thera Tab) 1 tab PO 0800 [facility] Last Admin: 12/03/16 09:26 Dose: Not Given Propranolol HCl (Inderal La) 120 mg PO DAILY [facility] Last Admin: 12/03/16 09:27 Dose: Not Given Sucralfate (Carafate Oral Susp) 1 gm PO BID [facility] Last Admin: 12/03/16 09:26 Dose: Not Given - Labs Labs: 12/03/16 07:30 12/03/16 07:30 PT 12.9 Seconds (9.9-11.8) H 12/03/16 07:30 INR 1.19 (0.93-1.08) H 12/03/16 07:30 APTT 32.5 Seconds (23.7-30.8) H 12/03/16 07:30 - Constitutional Appears: Cachectic, Chronically Ill - Eye Exam Eye Exam: Normal appearance, PERRL - ENT Exam ENT Exam: Mucous Membranes Moist - Neck Exam Neck Exam: Normal Inspection - Respiratory Exam Respiratory Exam: Decreased Breath Sounds, NORMAL BREATHING PATTERN - Cardiovascular Exam Cardiovascular Exam: REGULAR RHYTHM, +S1, +S2 - GI/Abdominal Exam GI & Abdominal Exam: Soft, Diminished Bowel Sounds Additional comments: ostomy stoma pink - Extremities Exam Extremities Exam: Normal Capillary Refill, Pedal Edema - Skin Skin Exam: Dry, Warm Additional comments: sacral decubiti Assessment and Plan - Assessment and Plan (Free Text) Assessment: 61 year old female with history of colon cancer admitted with sepsis, pancytopenia,enteritis,GI bleed, colon resection s/p colostomy,occipital- parietal infarct. I spoke with patients brother in law at length this morning. He indicated that family was close to making a decision regarding resuscitation status and future goals of care. Son in law asked about comfort care/hospice option which was explained to him in detail. He was appreciative for our conversation. I also spoke with patients mother, specifically about resuscitation status. Mother states that family has not yet made a decision . She indicated that she still needs to speak with her children. Psychosocial support given.Spiritual counseling refused. Time spent if discussion with family regarding goals of care and advance care planning, 45 minutes Plan: Palliative support Advance care planning
--- NOTE | 2016-12-03 14:59 | CP.PCM.PN ---
Subjective - Date & Time of Evaluation Date of Evaluation: 12/03/16 Time of Evaluation: 09:15 - Subjective Subjective: Patient continues to be lethargic, not very responsive, no fevers overnight, not taking anything by mouth. Objective - Vital Signs/Intake and Output Vital Signs (last 24 hours): Temp Pulse Resp BP Pulse Ox 98.6 F 104 H 20 163/108 H 100 12/03/16 07:58 12/03/16 07:58 12/03/16 07:58 12/03/16 07:58 12/03/16 07:58 Intake and Output: 12/03/16 12/03/16 06:59 18:59 Intake Total 120 Output Total 600 Balance -480 - Medications Medications: Current Medications Acetaminophen (Tylenol 650 Mg Supp) 650 mg RC Q4H PRN PRN Reason: Fever >100.4 F Last Admin: 11/01/16 21:18 Dose: 650 mg Al Hydrox/Mg Hydrox/Simethicone 30 ml/Diphenhydramine HCl 75 mg/Lidocaine 30 ml 0 ml PO QID [facility] Last Admin: 12/02/16 21:01 Dose: Not Given Diphenhydramine HCl (Benadryl) 50 mg IVP HS PRN PRN Reason: Insomnia Last Admin: 11/27/16 01:00 Dose: 50 mg Ergocalciferol (Drisdol 50,000 Intl Units Cap) 1 cap PO Q7D [facility] Last Admin: 11/19/16 18:04 Dose: Not Given Ferrous Sulfate (Feosol) 324 mg PO TID [facility] Last Admin: 12/02/16 18:16 Dose: Not Given Fluconazole (Diflucan) 200 mg PO DAILY [facility] PRN Reason: Protocol Stop: 12/12/16 10:01 Last Admin: 12/02/16 09:44 Dose: Not Given Home Med (Home Med) 1 unit PO Q12H PRN PRN Reason: Inflammation Last Admin: 10/18/16 11:03 Dose: 1 unit Hydralazine HCl (Apresoline) 10 mg IVP Q4H PRN PRN Reason: Systolic Blood Pressure Hydromorphone HCl (Dilaudid) 1 mg IVP Q1H PRN PRN Reason: Pain, moderate (4-7) Last Admin: 12/03/16 06:57 Dose: 1 mg Levetiracetam (Keppra 500mg Ivpb) 500 mg in 100 mls @ 400 mls/hr IV Q12 [facility] Last Admin: 12/02/16 21:06 Dose: 400 mls/hr Potassium Chloride/Dextrose (Potassium Chl 40 Meq In D5w) 1,000 mls @ 60 mls/ hr IV .[id number] [facility] Last Admin: 12/02/16 18:17 Dose: Not Given Magnesium Hydroxide (Milk Of Magnesia) 30 ml PO DAILY PRN PRN Reason: skin irritation Last Admin: 12/02/16 14:09 Dose: 30 ml Magnesium Oxide (Mag-Ox) 400 mg PO BID [facility] Last Admin: 12/02/16 18:16 Dose: Not Given Multi-Ingredient Ointment (Hydrophor Oint) 0 gm TOP Q6H PRN PRN Reason: Dry lip Multivitamins (Thera Tab) 1 tab PO 0800 [facility] Last Admin: 12/02/16 08:10 Dose: Not Given Propranolol HCl (Inderal La) 120 mg PO DAILY [facility] Last Admin: 12/02/16 09:44 Dose: Not Given Sucralfate (Carafate Oral Susp) 1 gm PO BID [facility] Last Admin: 12/02/16 18:16 Dose: Not Given - Labs Labs: 12/03/16 07:30 12/03/16 07:30 PT 12.9 Seconds (9.9-11.8) H 12/03/16 07:30 INR 1.19 (0.93-1.08) H 12/03/16 07:30 APTT 32.5 Seconds (23.7-30.8) H 12/03/16 07:30 - Constitutional Appears: Other (lethargic) - Neck Exam Neck Exam: absent: Meningismus - Respiratory Exam Respiratory Exam: Decreased Breath Sounds - Cardiovascular Exam Cardiovascular Exam: +S1, +S2 - GI/Abdominal Exam GI & Abdominal Exam: Soft. 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, probably from port-a-cath S/P removal POD # 21 (since the patient had been on TPN through the port) new onset encephalopathy and occipital lobe lesions, with left parietal lobe acute infarcts cannot rule out metastatic lesions S/P Methicillin-resistant coagulase negative staph in repeat blood cx bottle, consider bacteremia R/O secondary to PICC line R/O contamination (since only 1 of 4 bottles were positive for the organism) gram negative bacilli in the urine in a patient with Minor catheter - minor catheter has been removed Partial small bowel obstruction, persistent with colonic stricture S/P exploratory laparotomy, lysis of adhesions, repair of small bowel enterotomy and partial sigmoidectomy with end-colostomy Acute stomatitis and mucositis, as well as esophageal ulcers (esophagitis) and enteritis - no CMV noted on biopsy sample of the esophageal ulcers - consider Susy Esophagitis Neutropenia probably from chemotherapy, resolved HTN 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 S/P colectomy in 2014 history of UTI GERD anxiety Plan S/P 2 weeks of Mycamine and Daptomycin - currently on PO Diflucan for another 2 weeks (total 4 weeks of antifungal therapy) but will switch back to Mycamine since the patient is not taking anything by mouth will hold Valganciclovir since there was no evidence of CMV on the biopsy of the ulcers in the esophagus follow up further Neurology recommendations Overall prognosis is poor
[2016-12-03] MEDS: Micafungin 100 MG in Sodium Chloride 0.9% 100 ML IV SCH (16:01)
--- NOTE | 2016-12-03 16:19 | MRI ---
PROCEDURE: MRI BRAIN WITHOUT CONTRAST HISTORY: ams with strokes. COMPARISON: MRI 11/30/2016 TECHNIQUE: Multiplanar, multisequence MR images of the brain were obtained without intravenous contrast enhancement. FINDINGS: HEMORRHAGE: No change in size of left occipital hemorrhage and small thin left subdural hematoma. The subdural is more conspicuous and bright on T1 weighted images consistent with evolution into a subacute phase. DWI: There is an increase in the size of the acute infarct involving the left posterior temporal lobe occipital and parietal lobes. There is no change in size of the focal hemorrhage in the left occipital lobe which measures 2.3 cm in diameter. BRAIN PARENCHYMA: There is increased white matter edema in the right occipital lobe without a diffusion abnormality. This could be secondary to the metastatic lesions seen in the right cerebellar hemisphere adjacent to the tentorium. There were no enhancing lesions seen in the right occipital lobe on the previous study. There is vasogenic edema in the right cerebellar hemisphere secondary to the enhancing metastatic lesion identified previously. VENTRICLES: Unremarkable. No hydrocephalus. CRANIUM: Unremarkable. ORBITS: Grossly unremarkable. PARANASAL SINUSES/MASTOIDS: Clear VASCULAR SYSTEM: Skull base flow voids intact. OTHER FINDINGS: None. IMPRESSION: Increased size and extent of acute infarct in the left hemisphere.
[2016-12-03] MEDS: Ergocalciferol 50,000 Intl Units Cap PO SCH (17:06)
--- NOTE | 2016-12-03 17:44 | PN ---
DATE: 12/03/2016 REASON FOR CONSULTATION AND FOLLOWUP: Status post rapid response CVA, seizure disorder, and tachycardia. SUBJECTIVE: The patient is lying flat on the bed. Very much lethargic, family is at the bedside. OBJECTIVE: GENERAL: Not in apparent distress. VITAL SIGNS: As follow: Temperature afebrile, heart rate 104, blood pressure 162/108. HEENT: PERRLA. Extraocular muscles are intact. NECK: Supple. No carotid bruit or thyromegaly. CHEST: Clear to auscultation. HEART: S1 and S2, regular. ABDOMEN: Soft. EXTREMITIES: Clubbing and cyanosis negative. LABORATORY DATA: Blood workup as follows. WBC 12, hemoglobin 10.9, hematocrit 33.0, and platelet count 124. Chemistry shows sodium 141, potassium 3.6, chloride 106, carbon dioxide 30, anion gap of 9, BUN 12, creatinine 0.3. Total protein 4.9, albumin 2.1, albumin-globulin ratio 0.8. IMPRESSION: Severe protein-calorie malnutrition, not presented on admission, anemia, leukocytosis, lethargic, possible brain metastases to colon, terminally ill, history of a colon cancer with metastases, cauda equina syndrome, possible metastases to the brain, history of new onset of seizure. RECOMMENDATIONS: Continue supportive care. The overall condition is critical. emt intermediate prognosis is extremely guarded. Discussed with family at length, also discussed with the resident taking care of the patient. Continue supportive care. Sherrell Busby MD
--- NOTE | 2016-12-03 17:58 | VASCULAR ---
Right-sided medication port removal History: Medication port removal. Anesthesia: Local lidocaine and conscious sedation. Procedure findings: The procedure was explained to the patient with relative risks and benefits. Written informed consent was obtained. Initial fluoroscopic image of the right chest was obtained. The medication port was seen with the catheter extending to the SVC. The right upper chest overlying the medication port was prepped and draped using usual sterile techniques. 1% lidocaine was used to anesthetize the skin and subcutaneous tissues. A 2 centimeter incision was made along the previously seen incisional scar. Blunt dissection was performed to remove the catheter and the medication port was from the subcutaneous tunnel and pocket. The subcutaneous pocket was then washed with approximately 30 cc of sterile saline. Subsequently, the subcutaneous pocket was closed using 2.0 Polysorb interrupted sutures and continuous subcuticular 4.0 Polysorb sutures. Steri-Strips were placed on top of the incision. A sterile dressing was applied. Subsequent fluoroscopic image of the right upper chest was obtained. No definite pneumothorax was identified. The patient tolerated the procedure well and was discharged from the Radiology department in stable condition. Postprocedure chest radiograph was obtained. Impression: Successful removal of the right-sided medication port.
[2016-12-03] MEDS ORDERED: Multivitamin (MVI) 10 ML in Amino/Dext 4.25/5 2,000 ML IV SCH (18:00)
--- NOTE | 2016-12-03 20:40 | PN ---
DATE: 12/03/2016 SUBJECTIVE: The patient is seen lying in bed. She is lethargic. She is barely arousable. Family members are at bedside. PHYSICAL EXAMINATION: GENERAL: Elderly lady lying in bed. VITAL SIGNS: Blood pressure 163/108, heart rate of 104, respiratory rate 20, and temperature 98.6. HEENT: Normocephalic, atraumatic. Positive pallor. NECK: Supple. No JVD. LUNGS: Bilateral equal air entry. Bilateral rhonchi. CARDIAC: S1, S2. Regular rate and rhythm. No murmur, no rubs. ABDOMEN: Distended, soft, positive colostomy, bowel sounds sluggish. EXTREMITIES: 2+pitting edema of the lower extremities. INTAKE AND OUTPUT: *------*/1050. LABORATORY DATA: WBC 12, hemoglobin 10.9, hematocrit 33, and platelets 124. Sodium 141, potassium 3.6, chloride 106, CO2 of 30, BUN 12, creatinine 0.3, glucose 83, calcium 7.8, phosphorus not checked, magnesium 1.5 and albumin 2.1. CURRENT MEDICATIONS: 1. Apresoline. 2. Benadryl. 3. Carafate. 4. Diflucan. 5. Dilaudid. 6. Drisdol. 7. Feosol. HOME MEDICATIONS: 1. Inderal. 2. Keppra. 3. Magnesium oxide. 4. Milk of magnesia. 5. Potassium chloride and IV fluids. 6. Tylenol. 7. Valproic acid. ASSESSMENT: 1. Metastatic colon cancer. 2. Status post palliative colostomy. 3. Status post seizure. 4. Severe malnutrition. 5. Nil p.o. intake. 6. Hypokalemia. 7. Hypomagnesemia. 8. Status post fungemia. 9. Brain metastases. PLAN: 1. Continue IV fluids with potassium. 2. Continue supplementation of magnesium. 3. Trial of *------*, although I am very concerned about recurrent infection. 4. Palliative care. Adele Griffin MD
[2016-12-04] MEDS: HYDROmorphone 1 mg/ml ISec IVP PRN ×5 (03:40→20:43)
--- NOTE | 2016-12-04 05:46 | PN ---
DATE: SUBJECTIVE: This is an instant dictation on the communication that I had with the patient's friend, on Saturday, 11/30 along with the palliative care nursing team and the ICU care team in front of the patient's mom, the patient's father, [id number], and sister. We explained the findings of the *------* recent MRI and CAT scan to the patient's family in great detail. We spoke about the hospital course of the events and where we were and where we are currently at this time. In view of the multiple changes in the brain MRI, seen and evidenced after having discussed both with the radiologist and the neurologist, feeling that these multiple lesions are indicative of stroke and from underlying malignancy, plus or minus metastatic disease at least to one of the sides seen on the brain MRI. Since many areas are seen, overall prognostically, the cognitive ability of the patient to recover true senses where she was before appears to be extremely unlikely. I told the patient's family that at this point, the best thing to be hoping for is comfort measures and keeping her at least DNR/DNI. Family was very much reluctant to make any rapid decisions, they wanted to talk it over with one of the other family members who lives out of town in [place], they were going to communicate with her over the weekend at least to make her DNR/DNI even though we may not opt for hospice at this time. Since the patient has increasing difficulty in swallowing and now is not responsive, question of other issues, such as maintaining her on IV fluids or at this time assessing her for even peripheral alimentation becomes a necessity if the family wants us to be aggressive as they want to be. Since the patient has metastatic cancer and now has these multiple changes in the brain consistent with multiple areas of infarction, my own personal explanation is to keep the patient comfortable and not resort to any aggressive measures. Family is cognitive of these facts, they are going to make a decision by Saturday. Palliative team will also check into the family on Saturday. In the meantime, we will continue our supportive care with the current medications including the antibiotics that she is on. Overall prognostically, they asked me how much time she had, it could be from few days to maybe even few weeks. I do not foresee the patient getting better anytime soon. All these things have been explained to rest of the participants in the management of her care as well, and we will try to be cognizant of the patient's family's position at this time and give them enough time to think about what I had just mentioned. Hopefully, the patient's family will make a meaningful decision by Saturday, Saturday or Saturday of this week. Kedar Hendricks MD
[2016-12-04 06:42] LABS: INR 1.27 (0.93-1.08); PARTIAL THROMBOPLASTIN TIME 35.3 Seconds (23.7-30.8); PROTHROMBIN TIME 13.7 Seconds (9.9-11.8)
[2016-12-04 06:47] LABS: ALB/GLOB RATIO 0.7 (1.1-1.8); ALBUMIN 1.9 g/dL (3.0-4.8); ALT/SGPT 20 U/L (7-56); AST/SGOT 19 U/L (15-39); BLOOD UREA NITROGEN 17 mg/dL (7-21); CALCIUM 7.3 mg/dL (8.4-10.5); GFR AFRICAN-AMERICAN > 60; GFR NON-AFRICAN AMERICAN > 60
[2016-12-04 06:55] LABS: MAGNESIUM 1.3 mg/dL (1.7-2.2)
[2016-12-04] MEDS ORDERED: Magnesium Sulfate 1 gm in D5W 1 GM/100 ML BAG IVPB ONE (07:51)
[2016-12-04 07:57] LABS: EOS % 0.1 % (1.5-5.0); GRAN # 14.36 (1.4-6.5); GRAN % 89.9 % (50.0-68.0); HEMOGLOBIN 10.2 gm/dL (12.0-16.0); LYMPH # 0.7 (1.2-3.4); LYMPH % 4.3 % (22.0-35.0); MEAN CELL VOLUME 92.2 fL (80.0-105.0); MEAN CORPUSCULAR HEMOGLOBIN 29.7 pg (25.0-35.0); MEAN CORPUSCULAR HGB CONC 32.2 g/dl (31.0-37.0); MEAN PLATELET VOLUME 11.1 fl (7.0-11.0); MONO # 0.9 (0.1-0.6); MONO % 5.7 % (1.0-6.0); PLATELET COUNT 110 10^3/uL (120.0-450.0); RBC 3.44 10^6/uL (3.5-6.1); RED CELL DISTRIBUTION WIDTH 15.8 % (11.5-14.5)
--- NOTE | 2016-12-04 08:17 | CP.PCM.PN ---
Subjective - Date & Time of Evaluation Date of Evaluation: 12/04/16 Time of Evaluation: 08:11 - Subjective Subjective: General Surgery Dr. Mccracken Patient seen and examined this morning at bedside. No acute events over night. Patient responded to painful stimuli but did not awake to answer questions. Objective - Vital Signs/Intake and Output Vital Signs (last 24 hours): Temp Pulse Resp BP Pulse Ox 98.3 F 103 H 19 156/84 H 100 12/03/16 16:00 12/04/16 06:00 12/03/16 16:00 12/03/16 16:00 12/03/16 16:00 Intake and Output: 12/04/16 12/04/16 06:59 18:59 Intake Total 0 Output Total 950 Balance -950 - Medications Medications: Current Medications Acetaminophen (Tylenol 650 Mg Supp) 650 mg RC Q4H PRN PRN Reason: Fever >100.4 F Last Admin: 11/01/16 21:18 Dose: 650 mg Collagenase (Santyl) 0 gm TOP DAILY [facility] Al Hydrox/Mg Hydrox/Simethicone 30 ml/Diphenhydramine HCl 75 mg/Lidocaine 30 ml 0 ml PO QID [facility] Last Admin: 12/03/16 21:12 Dose: Not Given Diphenhydramine HCl (Benadryl) 50 mg IVP HS PRN PRN Reason: Insomnia Last Admin: 11/27/16 01:00 Dose: 50 mg Ergocalciferol (Drisdol 50,000 Intl Units Cap) 1 cap PO Q7D [facility] Last Admin: 12/03/16 17:06 Dose: Not Given Ferrous Sulfate (Feosol) 324 mg PO TID [facility] Last Admin: 12/03/16 17:07 Dose: Not Given Fluconazole (Diflucan) 200 mg PO DAILY [facility] PRN Reason: Protocol Stop: 12/12/16 10:01 Last Admin: 12/03/16 09:27 Dose: Not Given Home Med (Home Med) 1 unit PO Q12H PRN PRN Reason: Inflammation Last Admin: 10/18/16 11:03 Dose: 1 unit Hydralazine HCl (Apresoline) 10 mg IVP Q4H PRN PRN Reason: Systolic Blood Pressure Hydromorphone HCl (Dilaudid) 1 mg IVP Q1H PRN PRN Reason: Pain, moderate (4-7) Last Admin: 12/04/16 06:31 Dose: 1 mg Levetiracetam (Keppra 500mg Ivpb) 500 mg in 100 mls @ 400 mls/hr IV Q12 [facility] Last Admin: 12/03/16 21:30 Dose: 400 mls/hr Potassium Chloride/Dextrose (Potassium Chl 40 Meq In D5w) 1,000 mls @ 60 mls/ hr IV .[id number] [facility] Last Admin: 12/02/16 18:17 Dose: Not Given Valproate Sodium 250 mg/ (Sodium Chloride) 102.5 mls @ 100 mls/hr IVPB Q12 [facility] Last Admin: 12/03/16 22:48 Dose: 100 mls/hr Multivitamins/Vitamin C 10 ml/ (Amino Acids) 2,010 mls @ 83 mls/hr IV .Q24H [facility] Last Admin: 12/03/16 17:57 Dose: 83 mls/hr Micafungin Sodium 100 mg/ (Sodium Chloride) 100 mls @ 100 mls/hr IV DAILY [facility] PRN Reason: Protocol Stop: 12/13/16 15:01 Last Admin: 12/03/16 16:01 Dose: 100 mls/hr Magnesium Sulfate/Dextrose (Magnesium Sulfate 1 Gm/100 Ml D5w) 1 gm in 100 mls @ 100 mls/hr IVPB ONCE ONE Stop: 12/04/16 08:50 Potassium Chloride (Potassium Chloride 20 Meq/100 Ml) 20 meq in 100 mls @ 50 mls/hr IVPB Q2H [facility] Stop: 12/04/16 13:59 Magnesium Hydroxide (Milk Of Magnesia) 30 ml PO DAILY PRN PRN Reason: skin irritation Last Admin: 12/02/16 14:09 Dose: 30 ml Magnesium Oxide (Mag-Ox) 400 mg PO BID [facility] Last Admin: 12/03/16 17:07 Dose: Not Given Multi-Ingredient Ointment (Hydrophor Oint) 0 gm TOP Q6H PRN PRN Reason: Dry lip Multivitamins (Thera Tab) 1 tab PO 0800 [facility] Last Admin: 12/03/16 09:26 Dose: Not Given Propranolol HCl (Inderal La) 120 mg PO DAILY [facility] Last Admin: 12/03/16 09:27 Dose: Not Given Sucralfate (Carafate Oral Susp) 1 gm PO BID [facility] Last Admin: 12/03/16 17:06 Dose: Not Given - Labs Labs: 12/04/16 06:00 12/04/16 06:00 PT 13.7 Seconds (9.9-11.8) H 12/04/16 06:00 INR 1.27 (0.93-1.08) H 12/04/16 06:00 APTT 35.3 Seconds (23.7-30.8) H 12/04/16 06:00 - Constitutional Appears: No Acute Distress - ENT Exam ENT Exam: Mucous Membranes Moist - Respiratory Exam Respiratory Exam: NORMAL BREATHING PATTERN. absent: Accessory Muscle Use, Respiratory Distress - Cardiovascular Exam Cardiovascular Exam: REGULAR RHYTHM - GI/Abdominal Exam GI & Abdominal Exam: Soft. absent: Distended, Guarding Additional comments: Ostomy producing light brown fecal material. Midline surgical incision healing appropriately, edges approximated well, no signs of infection, inflammation or drainage. - Neurological Exam Additional comments: Responds to painful stimuli. Unable to wake patient to further exam. - Skin Skin Exam: Dry, Normal Color, Warm Additional comments: Excoriation around ostomy site appears to be improving. Assessment and Plan - Assessment and Plan (Free Text) Assessment: 61 F Colon CA and Sacral decub w/ worsening mental status POD17 s/p Marquita's Plan: Continue with current medical management. Monitor H+H, Hgb 10.2, Hct 31.7 Monitor electrolytes, Potassium 2.8 - replete Apply milk of magnesia on excoriation at the colostomy site, keep dry and change colostomy bag prn Monitor surgical midline incision and ostomy sites for signs of infection, inflammation, drainage or dehiscence. No need for surgical intervention at this time. Will discuss with Dr. Kaykay Reyez Lita PGY 1
[2016-12-04] MEDS: Valproate 250 MG in Sodium Chloride 0.9% 100 ML IVPB SCH ×2 (09:20→22:35)
[2016-12-04] MEDS: levETIRAcetam 500mg IVPB 500 MG/100 ML BAG IV SCH ×2 (09:23→22:36)
--- NOTE | 2016-12-04 10:18 | CP.PCM.PN ---
<Yoana Osei - Last Filed: 12/04/16 13:56> Subjective - Date & Time of Evaluation Date of Evaluation: 12/04/16 Time of Evaluation: 09:00 - Subjective Subjective: S&E this am, chart reviewed. Patient remains lethargic and only responsive to painful stimuli, moves around but does not open eyes. No acute overnight event reported. Had MRI brain yesterday, show increase size and extent of acute infarct in the left hemisphere. No enhancing lesion see on the right occipital lobe on prior studies. Objective - Vital Signs/Intake and Output Vital Signs (last 24 hours): Temp Pulse Resp BP Pulse Ox 97.8 F 100 H 22 134/83 100 12/04/16 08:36 12/04/16 08:36 12/04/16 08:36 12/04/16 08:36 12/04/16 08:36 Intake and Output: 12/04/16 12/04/16 06:59 18:59 Intake Total 0 Output Total 950 Balance -950 - Medications Medications: Current Medications Acetaminophen (Tylenol 650 Mg Supp) 650 mg RC Q4H PRN PRN Reason: Fever >100.4 F Last Admin: 11/01/16 21:18 Dose: 650 mg Collagenase (Santyl) 0 gm TOP DAILY [facility] Al Hydrox/Mg Hydrox/Simethicone 30 ml/Diphenhydramine HCl 75 mg/Lidocaine 30 ml 0 ml PO QID [facility] Last Admin: 12/03/16 21:12 Dose: Not Given Diphenhydramine HCl (Benadryl) 50 mg IVP HS PRN PRN Reason: Insomnia Last Admin: 11/27/16 01:00 Dose: 50 mg Ergocalciferol (Drisdol 50,000 Intl Units Cap) 1 cap PO Q7D [facility] Last Admin: 12/03/16 17:06 Dose: Not Given Ferrous Sulfate (Feosol) 324 mg PO TID [facility] Last Admin: 12/03/16 17:07 Dose: Not Given Fluconazole (Diflucan) 200 mg PO DAILY [facility] PRN Reason: Protocol Stop: 12/12/16 10:01 Last Admin: 12/03/16 09:27 Dose: Not Given Home Med (Home Med) 1 unit PO Q12H PRN PRN Reason: Inflammation Last Admin: 10/18/16 11:03 Dose: 1 unit Hydralazine HCl (Apresoline) 10 mg IVP Q4H PRN PRN Reason: Systolic Blood Pressure Hydromorphone HCl (Dilaudid) 1 mg IVP Q1H PRN PRN Reason: Pain, moderate (4-7) Last Admin: 12/04/16 08:55 Dose: 1 mg Levetiracetam (Keppra 500mg Ivpb) 500 mg in 100 mls @ 400 mls/hr IV Q12 [facility] Last Admin: 12/04/16 09:23 Dose: 400 mls/hr Potassium Chloride/Dextrose (Potassium Chl 40 Meq In D5w) 1,000 mls @ 60 mls/ hr IV .[id number] [facility] Last Admin: 12/02/16 18:17 Dose: Not Given Valproate Sodium 250 mg/ (Sodium Chloride) 102.5 mls @ 100 mls/hr IVPB Q12 [facility] Last Admin: 12/04/16 09:20 Dose: 100 mls/hr Multivitamins/Vitamin C 10 ml/ (Amino Acids) 2,010 mls @ 83 mls/hr IV .Q24H [facility] Last Admin: 12/03/16 17:57 Dose: 83 mls/hr Micafungin Sodium 100 mg/ (Sodium Chloride) 100 mls @ 100 mls/hr IV DAILY [facility] PRN Reason: Protocol Stop: 12/13/16 15:01 Last Admin: 12/03/16 16:01 Dose: 100 mls/hr Potassium Chloride (Potassium Chloride 20 Meq/100 Ml) 20 meq in 100 mls @ 50 mls/hr IVPB Q2H [facility] Stop: 12/04/16 13:59 Last Admin: 12/04/16 09:27 Dose: 50 mls/hr Magnesium Hydroxide (Milk Of Magnesia) 30 ml PO DAILY PRN PRN Reason: skin irritation Last Admin: 12/02/16 14:09 Dose: 30 ml Multi-Ingredient Ointment (Hydrophor Oint) 0 gm TOP Q6H PRN PRN Reason: Dry lip Propranolol HCl (Inderal La) 120 mg PO DAILY [facility] Last Admin: 12/03/16 09:27 Dose: Not Given Sucralfate (Carafate Oral Susp) 1 gm PO BID [facility] Last Admin: 12/03/16 17:06 Dose: Not Given - Labs Labs: 12/04/16 06:00 12/04/16 06:00 PT 13.7 Seconds (9.9-11.8) H 12/04/16 06:00 INR 1.27 (0.93-1.08) H 12/04/16 06:00 APTT 35.3 Seconds (23.7-30.8) H 12/04/16 06:00 - Constitutional Appears: Chronically Ill - Head Exam Head Exam: NORMAL INSPECTION - Eye Exam Eye Exam: Normal appearance. absent: Scleral icterus - ENT Exam ENT Exam: Mucous Membranes Moist - Neck Exam Neck Exam: Normal Inspection - Respiratory Exam Respiratory Exam: NORMAL BREATHING PATTERN. absent: Respiratory Distress - Cardiovascular Exam Cardiovascular Exam: +S1, +S2 - GI/Abdominal Exam GI & Abdominal Exam: Soft, Hypoactive Bowel Sounds. absent: Guarding, Tenderness, Rebound Additional comments: (+) left sided colostomy with a little dark brown stool,, incision is dery and intact. - Extremities Exam Extremities Exam: Normal Capillary Refill, Pedal Edema - Neurological Exam Neurological Exam: Altered - Skin Skin Exam: Dry, Warm Assessment and Plan - Assessment and Plan (Free Text) Assessment: ASSESSMENT: Altered Mental Status, s/p FU MRI, suggestive CVA, ? Brain mona New Onset Seizures Metastatic Stage IV Colon Cancer S/P Exploratory laparotomy with lysis of adhesions and repair of small bowel enterotomy and partial sigmoidectomy with end colostomy GI Bleed, S/P push enteroscopy: negative for bleed Anemia with multiple blood transfusions Elevated LFT, mainly alk phos, abdominal US done, 6/2 (+) sludge, no GB stones, CBD 5.0 cm, maybe medication induced, improving Fungemia PLAN: pending MRI NPO, on TPN On Keppra/Valproate Sodium PO meds on hold monitor cbc, electrolytes seizure precautions as per oncology, neurology Seen and discussed with Dr. Null. <Tong Null V - Last Filed: 12/04/16 23:46> Objective - Vital Signs/Intake and Output Vital Signs (last 24 hours): Temp Pulse Resp BP Pulse Ox 97.4 F L 98 H 28 H 120/80 99 12/04/16 16:00 12/04/16 16:00 12/04/16 16:00 12/04/16 16:00 12/04/16 16:00 Intake and Output: 12/04/16 12/05/16 18:59 06:59 Intake Total 0 0 Output Total 800 600 Balance -800 -600 - Medications Medications: Current Medications Acetaminophen (Tylenol 650 Mg Supp) 650 mg RC Q4H PRN PRN Reason: Fever >100.4 F Last Admin: 11/01/16 21:18 Dose: 650 mg Collagenase (Santyl) 0 gm TOP DAILY [facility] Last Admin: 12/04/16 10:55 Dose: 1 applic Al Hydrox/Mg Hydrox/Simethicone 30 ml/Diphenhydramine HCl 75 mg/Lidocaine 30 ml 0 ml PO QID [facility] Last Admin: 12/04/16 18:11 Dose: Not Given Diphenhydramine HCl (Benadryl) 50 mg IVP HS PRN PRN Reason: Insomnia Last Admin: 11/27/16 01:00 Dose: 50 mg Ergocalciferol (Drisdol 50,000 Intl Units Cap) 1 cap PO Q7D [facility] Last Admin: 12/03/16 17:06 Dose: Not Given Ferrous Sulfate (Feosol) 324 mg PO TID [facility] Last Admin: 12/03/16 17:07 Dose: Not Given Fluconazole (Diflucan) 200 mg PO DAILY [facility] PRN Reason: Protocol Stop: 12/12/16 10:01 Last Admin: 12/03/16 09:27 Dose: Not Given Home Med (Home Med) 1 unit PO Q12H PRN PRN Reason: Inflammation Last Admin: 10/18/16 11:03 Dose: 1 unit Hydralazine HCl (Apresoline) 10 mg IVP Q4H PRN PRN Reason: Systolic Blood Pressure Hydromorphone HCl (Dilaudid) 1 mg IVP Q1H PRN PRN Reason: Pain, moderate (4-7) Last Admin: 12/04/16 20:43 Dose: 1 mg Levetiracetam (Keppra 500mg Ivpb) 500 mg in 100 mls @ 400 mls/hr IV Q12 [facility] Last Admin: 12/04/16 22:36 Dose: 400 mls/hr Valproate Sodium 250 mg/ (Sodium Chloride) 102.5 mls @ 100 mls/hr IVPB Q12 [facility] Last Admin: 12/04/16 22:35 Dose: 100 mls/hr Micafungin Sodium 100 mg/ (Sodium Chloride) 100 mls @ 100 mls/hr IV DAILY [facility] PRN Reason: Protocol Stop: 12/13/16 15:01 Last Admin: 12/03/16 16:01 Dose: 100 mls/hr Multivitamins/Vitamin C 10 ml/Chromium/Copper/Manganese/Zinc 1 ml/ Amino Acids/ Electrolytes/Dextrose 2,011 mls @ 83 mls/hr IV .Q24H [facility] Stop: 12/07/16 17:59 Last Admin: 12/04/16 18:10 Dose: 83 mls/hr Magnesium Hydroxide (Milk Of Magnesia) 30 ml PO DAILY PRN PRN Reason: skin irritation Last Admin: 12/02/16 14:09 Dose: 30 ml Multi-Ingredient Ointment (Hydrophor Oint) 0 gm TOP Q6H PRN PRN Reason: Dry lip Pantoprazole Sodium (Protonix Inj) 40 mg IVP DAILY [facility] Propranolol HCl (Inderal La) 120 mg PO DAILY [facility] Last Admin: 12/03/16 09:27 Dose: Not Given Sucralfate (Carafate Oral Susp) 1 gm PO BID [facility] Last Admin: 12/03/16 17:06 Dose: Not Given - Labs Labs: 12/04/16 06:00 12/04/16 06:00 PT 13.7 Seconds (9.9-11.8) H 12/04/16 06:00 INR 1.27 (0.93-1.08) H 12/04/16 06:00 APTT 35.3 Seconds (23.7-30.8) H 12/04/16 06:00 Attending/Attestation - Attestation Notes (Text): 12/04/16 23:46 t
--- NOTE | 2016-12-04 10:25 | CP.PCM.PN ---
<Laura Navarro - Last Filed: 12/04/16 10:43> Subjective - Date & Time of Evaluation Date of Evaluation: 12/04/16 Time of Evaluation: 10:00 - Subjective Subjective: PHY-[address] Moya. Patient is still very drowsy, arousable to deep chest rubs. No more right upper extremities twitches reported. Objective - Vital Signs/Intake and Output Vital Signs (last 24 hours): Temp Pulse Resp BP Pulse Ox 97.8 F 100 H 22 134/83 100 12/04/16 08:36 12/04/16 08:36 12/04/16 08:36 12/04/16 08:36 12/04/16 08:36 Intake and Output: 12/04/16 12/04/16 06:59 18:59 Intake Total 0 Output Total 950 Balance -950 - Medications Medications: Current Medications Acetaminophen (Tylenol 650 Mg Supp) 650 mg RC Q4H PRN PRN Reason: Fever >100.4 F Last Admin: 11/01/16 21:18 Dose: 650 mg Collagenase (Santyl) 0 gm TOP DAILY [facility] Al Hydrox/Mg Hydrox/Simethicone 30 ml/Diphenhydramine HCl 75 mg/Lidocaine 30 ml 0 ml PO QID [facility] Last Admin: 12/03/16 21:12 Dose: Not Given Diphenhydramine HCl (Benadryl) 50 mg IVP HS PRN PRN Reason: Insomnia Last Admin: 11/27/16 01:00 Dose: 50 mg Ergocalciferol (Drisdol 50,000 Intl Units Cap) 1 cap PO Q7D [facility] Last Admin: 12/03/16 17:06 Dose: Not Given Ferrous Sulfate (Feosol) 324 mg PO TID [facility] Last Admin: 12/03/16 17:07 Dose: Not Given Fluconazole (Diflucan) 200 mg PO DAILY [facility] PRN Reason: Protocol Stop: 12/12/16 10:01 Last Admin: 12/03/16 09:27 Dose: Not Given Home Med (Home Med) 1 unit PO Q12H PRN PRN Reason: Inflammation Last Admin: 10/18/16 11:03 Dose: 1 unit Hydralazine HCl (Apresoline) 10 mg IVP Q4H PRN PRN Reason: Systolic Blood Pressure Hydromorphone HCl (Dilaudid) 1 mg IVP Q1H PRN PRN Reason: Pain, moderate (4-7) Last Admin: 12/04/16 08:55 Dose: 1 mg Levetiracetam (Keppra 500mg Ivpb) 500 mg in 100 mls @ 400 mls/hr IV Q12 [facility] Last Admin: 12/04/16 09:23 Dose: 400 mls/hr Potassium Chloride/Dextrose (Potassium Chl 40 Meq In D5w) 1,000 mls @ 60 mls/ hr IV .[id number] [facility] Last Admin: 12/02/16 18:17 Dose: Not Given Valproate Sodium 250 mg/ (Sodium Chloride) 102.5 mls @ 100 mls/hr IVPB Q12 [facility] Last Admin: 12/04/16 09:20 Dose: 100 mls/hr Multivitamins/Vitamin C 10 ml/ (Amino Acids) 2,010 mls @ 83 mls/hr IV .Q24H [facility] Last Admin: 12/03/16 17:57 Dose: 83 mls/hr Micafungin Sodium 100 mg/ (Sodium Chloride) 100 mls @ 100 mls/hr IV DAILY [facility] PRN Reason: Protocol Stop: 12/13/16 15:01 Last Admin: 12/03/16 16:01 Dose: 100 mls/hr Potassium Chloride (Potassium Chloride 20 Meq/100 Ml) 20 meq in 100 mls @ 50 mls/hr IVPB Q2H [facility] Stop: 12/04/16 13:59 Last Admin: 12/04/16 09:27 Dose: 50 mls/hr Magnesium Hydroxide (Milk Of Magnesia) 30 ml PO DAILY PRN PRN Reason: skin irritation Last Admin: 12/02/16 14:09 Dose: 30 ml Multi-Ingredient Ointment (Hydrophor Oint) 0 gm TOP Q6H PRN PRN Reason: Dry lip Propranolol HCl (Inderal La) 120 mg PO DAILY [facility] Last Admin: 12/03/16 09:27 Dose: Not Given Sucralfate (Carafate Oral Susp) 1 gm PO BID [facility] Last Admin: 12/03/16 17:06 Dose: Not Given - Labs Labs: 12/04/16 06:00 12/04/16 06:00 PT 13.7 Seconds (9.9-11.8) H 12/04/16 06:00 INR 1.27 (0.93-1.08) H 12/04/16 06:00 APTT 35.3 Seconds (23.7-30.8) H 12/04/16 06:00 - Constitutional Appears: No Acute Distress, Older Than Stated Age, Confused, Cachectic, Chronically Ill - Head Exam Head Exam: ATRAUMATIC, NORMAL INSPECTION, NORMOCEPHALIC - Eye Exam Eye Exam: Normal appearance Pupil Exam: PERRL - ENT Exam ENT Exam: Mucous Membranes Dry - Neck Exam Neck Exam: Normal Inspection - Respiratory Exam Respiratory Exam: Decreased Breath Sounds. absent: Rales, Rhonchi, Wheezes, Respiratory Distress, Stridor - Cardiovascular Exam Cardiovascular Exam: Tachycardia, +S1, +S2 - GI/Abdominal Exam GI & Abdominal Exam: Soft, Tenderness, Normal Bowel Sounds - Extremities Exam Extremities Exam: Pedal Edema - Neurological Exam Additional comments: Patient is in coma, responds minimally with deep chest rub. Doesn't follow commands or opens her eyes. No gross movement of her extremities. 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 No new episodes of muscle twitches reported, however patient is still very comatose, minimally responsive with deep chest rubs. Repeat MRI 12/03/16: No change in size of left occipital hemorrhage and small thin left subdural hematoma. The subdural is more conspicuous and bright on T1 weighted images consistent with evolution into a subacute phase. There is an increase in the size of the acute infarct involving the left posterior temporal lobe occipital and parietal lobes. There is no change in size of the focal hemorrhage in the left occipital lobe which measures 2.3 cm in diameter.There is increased white matter edema in the right occipital lobe without a diffusion abnormality. This could be secondary to the metastatic lesions seen in the right cerebellar hemisphere adjacent to the tentorium. There were no enhancing lesions seen in the right occipital lobe on the previous study. There is vasogenic edema in the right cerebellar hemisphere secondary to the enhancing metastatic lesion identified previously. Plan: - Enlarged occipital-parietal infarct - Can start ASA next week - Continue with keppra and valproic acid - Neuro checks - C/W palliative care - Monitor and correct electrolytes, - Thank you for consulting DR Moya. Patient seen, examined and case discussed with Dr Moya. <Ravi Moya - Last Filed: 12/05/16 09:48> Objective - Vital Signs/Intake and Output Vital Signs (last 24 hours): Temp Pulse Resp BP Pulse Ox 97.8 F 113 H 22 134/102 H 98 12/05/16 07:46 12/05/16 07:46 12/05/16 07:46 12/05/16 07:46 12/05/16 07:46 Intake and Output: 12/05/16 12/05/16 06:59 18:59 Intake Total 0 1562 Output Total 1000 Balance -1000 1562 - Medications Medications: Current Medications Acetaminophen (Tylenol 650 Mg Supp) 650 mg RC Q4H PRN PRN Reason: Fever >100.4 F Last Admin: 11/01/16 21:18 Dose: 650 mg Collagenase (Santyl) 0 gm TOP DAILY [facility] Last Admin: 12/04/16 10:55 Dose: 1 applic Al Hydrox/Mg Hydrox/Simethicone 30 ml/Diphenhydramine HCl 75 mg/Lidocaine 30 ml 0 ml PO QID [facility] Last Admin: 12/05/16 00:14 Dose: Not Given Diphenhydramine HCl (Benadryl) 50 mg IVP HS PRN PRN Reason: Insomnia Last Admin: 11/27/16 01:00 Dose: 50 mg Ergocalciferol (Drisdol 50,000 Intl Units Cap) 1 cap PO Q7D [facility] Last Admin: 12/03/16 17:06 Dose: Not Given Ferrous Sulfate (Feosol) 324 mg PO TID [facility] Last Admin: 12/03/16 17:07 Dose: Not Given Fluconazole (Diflucan) 200 mg PO DAILY [facility] PRN Reason: Protocol Stop: 12/12/16 10:01 Last Admin: 12/03/16 09:27 Dose: Not Given Home Med (Home Med) 1 unit PO Q12H PRN PRN Reason: Inflammation Last Admin: 10/18/16 11:03 Dose: 1 unit Hydralazine HCl (Apresoline) 10 mg IVP Q4H PRN PRN Reason: Systolic Blood Pressure Hydromorphone HCl (Dilaudid) 1 mg IVP Q1H PRN PRN Reason: Pain, moderate (4-7) Last Admin: 12/05/16 09:41 Dose: 1 mg Levetiracetam (Keppra 500mg Ivpb) 500 mg in 100 mls @ 400 mls/hr IV Q12 [facility] Last Admin: 12/05/16 09:41 Dose: 400 mls/hr Valproate Sodium 250 mg/ (Sodium Chloride) 102.5 mls @ 100 mls/hr IVPB Q12 [facility] Last Admin: 12/05/16 09:43 Dose: 100 mls/hr Micafungin Sodium 100 mg/ (Sodium Chloride) 100 mls @ 100 mls/hr IV DAILY [facility] PRN Reason: Protocol Stop: 12/13/16 15:01 Last Admin: 12/05/16 09:42 Dose: 100 mls/hr Multivitamins/Vitamin C 10 ml/Chromium/Copper/Manganese/Zinc 1 ml/ Amino Acids/ Electrolytes/Dextrose 2,011 mls @ 83 mls/hr IV .Q24H [facility] Stop: 12/07/16 17:59 Last Admin: 12/04/16 18:10 Dose: 83 mls/hr Magnesium Hydroxide (Milk Of Magnesia) 30 ml PO DAILY PRN PRN Reason: skin irritation Last Admin: 12/02/16 14:09 Dose: 30 ml Multi-Ingredient Ointment (Hydrophor Oint) 0 gm TOP Q6H PRN PRN Reason: Dry lip Pantoprazole Sodium (Protonix Inj) 40 mg IVP DAILY [facility] Last Admin: 12/05/16 09:41 Dose: 40 mg Propranolol HCl (Inderal La) 120 mg PO DAILY [facility] Last Admin: 12/03/16 09:27 Dose: Not Given Sucralfate (Carafate Oral Susp) 1 gm PO BID [facility] Last Admin: 12/03/16 17:06 Dose: Not Given - Labs Labs: 12/05/16 06:00 12/05/16 06:00 PT 13.2 Seconds (9.9-11.8) H 12/05/16 06:00 INR 1.22 (0.93-1.08) H 12/05/16 06:00 APTT 35.2 Seconds (23.7-30.8) H 12/05/16 06:00 Attending/Attestation - Attestation I have personally seen and examined this patient.: Yes I have fully participated in the care of the patient.: Yes I have reviewed all pertinent clinical information, including history, physical exam and plan: Yes
[2016-12-04] MEDS: Aluminum Hydroxide/Magnesium 30 ML, DiphenhydrAMINE 75 MG, Lidocaine 2% Viscous 30 ML PO SCH ×3 (10:55→18:11)
[2016-12-04] MEDS: Collagenase 250 Units/gm Ointment(30 gm) TOP SCH (10:55)
--- NOTE | 2016-12-04 11:18 | CP.PCM.PN ---
Subjective - Date & Time of Evaluation Date of Evaluation: 12/04/16 Time of Evaluation: 07:00 - Subjective Subjective: PGY-[address] Hendricks No more hand twitching reported. Pt did not eat. Pt cannot verbalize pain. Aroused to touch Noted wound with foul smelling odor per wound care team Family has not finalized on which direction / goals of care per palliative care team Objective - Vital Signs/Intake and Output Vital Signs (last 24 hours): Temp Pulse Resp BP Pulse Ox 97.8 F 100 H 22 134/83 100 12/04/16 08:36 12/04/16 08:36 12/04/16 08:36 12/04/16 08:36 12/04/16 08:36 Intake and Output: 12/04/16 12/04/16 06:59 18:59 Intake Total 0 Output Total 950 Balance -950 - Medications Medications: Current Medications Acetaminophen (Tylenol 650 Mg Supp) 650 mg RC Q4H PRN PRN Reason: Fever >100.4 F Last Admin: 11/01/16 21:18 Dose: 650 mg Collagenase (Santyl) 0 gm TOP DAILY [facility] Last Admin: 12/04/16 10:55 Dose: 1 applic Al Hydrox/Mg Hydrox/Simethicone 30 ml/Diphenhydramine HCl 75 mg/Lidocaine 30 ml 0 ml PO QID [facility] Last Admin: 12/04/16 10:55 Dose: Not Given Diphenhydramine HCl (Benadryl) 50 mg IVP HS PRN PRN Reason: Insomnia Last Admin: 11/27/16 01:00 Dose: 50 mg Ergocalciferol (Drisdol 50,000 Intl Units Cap) 1 cap PO Q7D [facility] Last Admin: 12/03/16 17:06 Dose: Not Given Ferrous Sulfate (Feosol) 324 mg PO TID [facility] Last Admin: 12/03/16 17:07 Dose: Not Given Fluconazole (Diflucan) 200 mg PO DAILY [facility] PRN Reason: Protocol Stop: 12/12/16 10:01 Last Admin: 12/03/16 09:27 Dose: Not Given Home Med (Home Med) 1 unit PO Q12H PRN PRN Reason: Inflammation Last Admin: 10/18/16 11:03 Dose: 1 unit Hydralazine HCl (Apresoline) 10 mg IVP Q4H PRN PRN Reason: Systolic Blood Pressure Hydromorphone HCl (Dilaudid) 1 mg IVP Q1H PRN PRN Reason: Pain, moderate (4-7) Last Admin: 12/04/16 08:55 Dose: 1 mg Levetiracetam (Keppra 500mg Ivpb) 500 mg in 100 mls @ 400 mls/hr IV Q12 [facility] Last Admin: 12/04/16 09:23 Dose: 400 mls/hr Potassium Chloride/Dextrose (Potassium Chl 40 Meq In D5w) 1,000 mls @ 60 mls/ hr IV .[id number] [facility] Last Admin: 12/02/16 18:17 Dose: Not Given Valproate Sodium 250 mg/ (Sodium Chloride) 102.5 mls @ 100 mls/hr IVPB Q12 [facility] Last Admin: 12/04/16 09:20 Dose: 100 mls/hr Multivitamins/Vitamin C 10 ml/ (Amino Acids) 2,010 mls @ 83 mls/hr IV .Q24H [facility] Last Admin: 12/03/16 17:57 Dose: 83 mls/hr Micafungin Sodium 100 mg/ (Sodium Chloride) 100 mls @ 100 mls/hr IV DAILY [facility] PRN Reason: Protocol Stop: 12/13/16 15:01 Last Admin: 12/03/16 16:01 Dose: 100 mls/hr Potassium Chloride (Potassium Chloride 20 Meq/100 Ml) 20 meq in 100 mls @ 50 mls/hr IVPB Q2H [facility] Stop: 12/04/16 13:59 Last Admin: 12/04/16 09:27 Dose: 50 mls/hr Magnesium Hydroxide (Milk Of Magnesia) 30 ml PO DAILY PRN PRN Reason: skin irritation Last Admin: 12/02/16 14:09 Dose: 30 ml Multi-Ingredient Ointment (Hydrophor Oint) 0 gm TOP Q6H PRN PRN Reason: Dry lip Propranolol HCl (Inderal La) 120 mg PO DAILY [facility] Last Admin: 12/03/16 09:27 Dose: Not Given Sucralfate (Carafate Oral Susp) 1 gm PO BID [facility] Last Admin: 12/03/16 17:06 Dose: Not Given - Labs Labs: 12/04/16 06:00 12/04/16 06:00 PT 13.7 Seconds (9.9-11.8) H 12/04/16 06:00 INR 1.27 (0.93-1.08) H 12/04/16 06:00 APTT 35.3 Seconds (23.7-30.8) H 12/04/16 06:00 - Constitutional Appears: No Acute Distress, Cachectic, Chronically Ill - Head Exam Head Exam: ATRAUMATIC, NORMAL INSPECTION, NORMOCEPHALIC - Eye Exam Eye Exam: EOMI, Normal appearance. absent: Scleral icterus - ENT Exam ENT Exam: Mucous Membranes Moist - Neck Exam Neck Exam: absent: Lymphadenopathy - Respiratory Exam Respiratory Exam: Clear to Ausculation Bilateral. absent: Rales, Rhonchi, Wheezes - Cardiovascular Exam Cardiovascular Exam: REGULAR RHYTHM, +S1, +S2 - GI/Abdominal Exam GI & Abdominal Exam: Soft, Hypoactive Bowel Sounds. absent: Firm, Guarding, Rigid Additional comments: erythema around ostomy bag. staple line no drainage. small amount of bilous stool in ostomy bag - Extremities Exam Extremities Exam: Normal Capillary Refill, Pedal Edema (slight b/l. on heel boots. minor intact, urine clear, yellow) - Skin Skin Exam: Dry, Warm Assessment and Plan - Assessment and Plan (Free Text) Plan: 61 F admitted on 10/09/16 with sepsis post chemotherapy with 2 cycles of FOLFOX based chemotherapy with Avastin. The hospital course was complicated by (1) seizure due to new stroke vs brain mets, (2) anemia due to GI bleeding requiring transfusion and (3) fungemia/bactermia with Port removal (11/14/16) which pt is 2 weeks of IV daptomycin/mycamine, then PO antifungal, then back on IV mycamine due to no PO intake. Pt has zero oral intake incluing meds. Plan: Mentation decreases, only arousable by touch, no PO intake. On Seizure precaution. [facility]is in Palliative and Dr. Hendricks have met for 45 minutes last Saturday. Pt remains full code. Per palliative care team, pt family has not reached decision as of today. If pt decides on full code, Dr. Hendricks would like to consult IR for peg placement and re-consult for skilled nursing placement. If family chooses hospice, can start hospice in-patient. Altered Mental Status Stroke, ischemic with hemorrhagic conversion, Enlarged occipital-parietal infarct Cannot rule out brain mets Seizure due to ischemic stroke vs mets - Continue with keppra and valproic acid - Neuro checks - May start ASA pending PO status Imaging - Repeat MRI 12/03/16: No change in size of left occipital hemorrhage and small thin left subdural hematoma (subacute) An increase in size of acute infarct in L posterior temporal lobe occipital and parietal lobes. Increased white matter edema in R occipital lobe without a diffusion abnormality. (could be metastatic lesions) Vasogenic edema in the right cerebellar hemisphere secondary to the enhancing metastatic lesion identified previously. - MRI/MRA : R cerebral hemisphere - 0.2cm enhancing mass with moderate local edema L occipital lobe - 3.9cm probably subacute infarct vs glioma Bilateral frontal, right temporociipital, brain stem - could be metastes - CT head no contrast (11/27) with encephalomalacia, ct scan reveal hypodensities right cerebellum and bilateral occipital, which were there before compared to CT of the head from 10/11/16. - EEG: b/l slowing waves, no epileptic form wave - 2 [employer]IND PLANT MANAGER (11/27) for blurry vision turned blank stair, which later turned tonic- clonic movements. During [employer] PLANT MANAGER, she was responsive to only painful stimuli. Left sided facial droop was experienced. Pt was trasnferred to ICU, now downgraded to remote telemetry. - W[employer] MANAGER (11/23) Pt was hypotensive and AMS on 11/23 [employer] MA[employer]GER due to narcotic side effect. 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 Hold Durgesic - Per Dr Hendricks, do not add more pain meds now. Maintain at current pain regimen. Upper GI bleed s/p EGD with push enteroscopy <-- EGD <-- bleeding scan x 2 ( negative) - No source of bleeding at examined duodedeum and jejunum - Propranolol 120 - Consider intraoperative enteroscopy or outpatient capsule endoscopy. 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 end-colostomy Susy esophagitis Pathology: Poorly differentiated colorectal adenocarcinoma metasiasis to bowel wall and serosa and one resection margin. 3/5 lymph nodes positive for metastasis - Microstaellite stable (08/13/16). Has ruled out rollins syndrome Sepsis due to C. albicans Fungemia, probably from port-a-cath Bacteremia with methicillin-resistant coagulase negative staph in repeated cx Gram negative bacilli in urine with minor - minor removed (11/24) Nose culture coagulase neg staphylococcus (11/24) - continue mycamine (day 14 since port removal) - Then switch to PO diflucan for another 2 weeks for total of 4 week antifungal tx - Now back on IV mycamine due to no PO - Off daptomycin for bactermeia r/o picc, r/o contamination (1/4 bottles) - repeated urine cx negative - observe off abx - Hold valganciclovir, no CMV on esophagus ulcer - L picc was placed on 10/31/16 which was not replaced due to coagulopathy and bleeding. Severe hypokalemia Hypernatermia Severe malnutrition, albumin 2.0 Hypomandnesemia Dysphagia - No PO intake - replete as needed - Ensure and PO supplements on hold - KCL piggybag Edema - lasix 20q12 Prophylasix - SCD, protonix IV s/r/d/w Dr. Hendircks
--- NOTE | 2016-12-04 12:27 | CP.PCM.PN ---
Subjective - Date & Time of Evaluation Date of Evaluation: 12/04/16 Time of Evaluation: 11:00 - Subjective Subjective: Unresponsive. Objective - Vital Signs/Intake and Output Vital Signs (last 24 hours): Temp Pulse Resp BP Pulse Ox 97.8 F 100 H 22 134/83 100 12/04/16 08:36 12/04/16 08:36 12/04/16 08:36 12/04/16 08:36 12/04/16 08:36 Intake and Output: 12/04/16 12/04/16 06:59 18:59 Intake Total 0 Output Total 950 Balance -950 - Medications Medications: Current Medications Acetaminophen (Tylenol 650 Mg Supp) 650 mg RC Q4H PRN PRN Reason: Fever >100.4 F Last Admin: 11/01/16 21:18 Dose: 650 mg Collagenase (Santyl) 0 gm TOP DAILY [facility] Last Admin: 12/04/16 10:55 Dose: 1 applic Al Hydrox/Mg Hydrox/Simethicone 30 ml/Diphenhydramine HCl 75 mg/Lidocaine 30 ml 0 ml PO QID [facility] Last Admin: 12/04/16 10:55 Dose: Not Given Diphenhydramine HCl (Benadryl) 50 mg IVP HS PRN PRN Reason: Insomnia Last Admin: 11/27/16 01:00 Dose: 50 mg Ergocalciferol (Drisdol 50,000 Intl Units Cap) 1 cap PO Q7D [facility] Last Admin: 12/03/16 17:06 Dose: Not Given Ferrous Sulfate (Feosol) 324 mg PO TID [facility] Last Admin: 12/03/16 17:07 Dose: Not Given Fluconazole (Diflucan) 200 mg PO DAILY [facility] PRN Reason: Protocol Stop: 12/12/16 10:01 Last Admin: 12/03/16 09:27 Dose: Not Given Home Med (Home Med) 1 unit PO Q12H PRN PRN Reason: Inflammation Last Admin: 10/18/16 11:03 Dose: 1 unit Hydralazine HCl (Apresoline) 10 mg IVP Q4H PRN PRN Reason: Systolic Blood Pressure Hydromorphone HCl (Dilaudid) 1 mg IVP Q1H PRN PRN Reason: Pain, moderate (4-7) Last Admin: 12/04/16 08:55 Dose: 1 mg Levetiracetam (Keppra 500mg Ivpb) 500 mg in 100 mls @ 400 mls/hr IV Q12 [facility] Last Admin: 12/04/16 09:23 Dose: 400 mls/hr Potassium Chloride/Dextrose (Potassium Chl 40 Meq In D5w) 1,000 mls @ 60 mls/ hr IV .[id number] [facility] Last Admin: 12/02/16 18:17 Dose: Not Given Valproate Sodium 250 mg/ (Sodium Chloride) 102.5 mls @ 100 mls/hr IVPB Q12 [facility] Last Admin: 12/04/16 09:20 Dose: 100 mls/hr Micafungin Sodium 100 mg/ (Sodium Chloride) 100 mls @ 100 mls/hr IV DAILY [facility] PRN Reason: Protocol Stop: 12/13/16 15:01 Last Admin: 12/03/16 16:01 Dose: 100 mls/hr Potassium Chloride (Potassium Chloride 20 Meq/100 Ml) 20 meq in 100 mls @ 50 mls/hr IVPB Q2H [facility] Stop: 12/04/16 13:59 Last Admin: 12/04/16 09:27 Dose: 50 mls/hr Magnesium Sulfate 2 gm/ Sodium (Chloride) 104 mls @ 102 mls/hr IVPB ONCE ONE Stop: 12/04/16 21:01 Potassium Chloride (Potassium Chloride 20 Meq/100 Ml) 20 meq in 100 mls @ 50 mls/hr IVPB ONCE ONE Stop: 12/04/16 22:59 Multivitamins/Vitamin C 10 ml/Chromium/Copper/Manganese/Zinc 1 ml/ Amino Acids/ Electrolytes/Dextrose 2,011 mls @ 83 mls/hr IV .Q24H [facility] Stop: 12/07/16 17:59 Magnesium Hydroxide (Milk Of Magnesia) 30 ml PO DAILY PRN PRN Reason: skin irritation Last Admin: 12/02/16 14:09 Dose: 30 ml Multi-Ingredient Ointment (Hydrophor Oint) 0 gm TOP Q6H PRN PRN Reason: Dry lip Pantoprazole Sodium (Protonix Inj) 40 mg IVP DAILY [facility] Propranolol HCl (Inderal La) 120 mg PO DAILY [facility] Last Admin: 12/03/16 09:27 Dose: Not Given Sucralfate (Carafate Oral Susp) 1 gm PO BID [facility] Last Admin: 12/03/16 17:06 Dose: Not Given - Labs Labs: 12/04/16 06:00 12/04/16 06:00 PT 13.7 Seconds (9.9-11.8) H 12/04/16 06:00 INR 1.27 (0.93-1.08) H 12/04/16 06:00 APTT 35.3 Seconds (23.7-30.8) H 12/04/16 06:00 - Constitutional Appears: Cachectic, Chronically Ill - Eye Exam Eye Exam: Normal appearance, PERRL - Respiratory Exam Respiratory Exam: Decreased Breath Sounds, NORMAL BREATHING PATTERN - Cardiovascular Exam Cardiovascular Exam: REGULAR RHYTHM, +S1 - GI/Abdominal Exam GI & Abdominal Exam: Soft, Diminished Bowel Sounds - Extremities Exam Additional comments: bilateral lower extremity edema - Skin Skin Exam: Dry, Pallor Assessment and Plan - Assessment and Plan (Free Text) Assessment: 61 year old female with history of metastatic colon cancer, sepsis, GI bleed, colon resection s/p colostomy, acute parietal/occipital infarcts Patient's sister Sierra at bedside. Sister is very tearful, states she is unable to make decision about DNR/DNI. She knows that her sister is "suffering" but can 't bring herself to agree to DNR/DNI. Nutritional status also discussed. Family has been asked about eventual PEG placement. Ramifications of artificial nutrition/ PEG in light of patients diagnosis/comorbidities explained. Questions answered. Option for comfort care/hospice offered. Psychosocial support given. Spiritual support offered, family has requested a assembler body visit. Plan: Palliative support, advance care planning
--- NOTE | 2016-12-04 12:48 | PN ---
SUBJECTIVE: The patient is currently seen on 3R. She is lying in bed. She appears to be somewhat unresponsive. Presently, she has no twitching. Family is at bedside. She remains on electrolyte free hyperal with a low potassium and low magnesium level. She is waiting the neurologist visit to discuss her twitching which had improved today. MEDICATIONS: Medication list reviewed. The patient was currently on hydralazine, Benadryl, diclofenac, triamcinolone dental paste, Hydrophor, Inderal, Keppra, micafungin, milk of magnesia p.r.n., potassium supplements, Santyl, Tylenol, valproate sodium. OBJECTIVE: INTAKE/OUTPUT: Intake not charted, output 1150. VITAL SIGNS: Blood pressure 134/83, temperature 97.8, pulse 100, respiratory rate 22. HEENT EXAM: Normocephalic and atraumatic. Conjunctivae are pink. Sclerae are nonicteric. NECK: Supple. No neck vein distention. CHEST: Clear to auscultation and percussion. No rales. No rhonchi. No wheezing. CARDIOVASCULAR: Shows regular rate and rhythm without murmurs, rubs or gallops. ABDOMEN: Positive colostomy. Bowel sounds normal. No rebound and no guarding. EXTREMITIES: Show no cyanosis or clubbing. She does have 1+ pitting edema in her lower extremity. LABORATORY DATA AND IMAGING: CBC; white blood cell count 16.0 with hemoglobin 10.2, and platelet count is 110,000. Chemistries shows sodium 137, potassium 2.8, chloride 104 with a CO2 of 28, BUN of 17 with a creatinine of 0.3, glucose 127, calcium 7.3, magnesium level 1.3. Liver enzymes are normal. Albumin was 1.9. ASSESSMENT: 1. Status post acute renal failure, BUN and creatinine are now back to baseline levels. 2. Stage IV colon cancer with mets, status post palliative colostomy. 3. History of seizure activity. CT is positive for recent acute infarcts. No evidence of metastatic disease. The patient has twitching, but seizure activity appears to improve. 4. Hypomagnesemia with hypokalemia. The patient is currently receiving electrolyte-free hyperal, I will switch her over to hyperal containing electrolytes. 5. History of thrombocytopenia secondary to malignancy currently stable. PLAN: 1. No hyperal orders to be written today. 2. Continue potassium and magnesium supplements. 3. Continue antifungal medications in light of her recent fungal bacterial infection. 4. Discussed with the patient's family prognosis appears grim and family is preparing for the worst. Kyle Brooks MD
--- NOTE | 2016-12-04 13:28 | PN ---
DATE: 12/04/2016 REASON FOR CONSULTATION AND FOLLOWUP: Status post rapid response CVA, seizure disorder, tachycardia and metastatic colon cancer. SUBJECTIVE: The patient is lying flat on the bed, very much lethargic, not arousable and verbal response. OBJECTIVE: GENERAL: Lying, not in apparent distress. VITAL SIGNS: As follow: Temperature afebrile, heart rate 100, blood pressure 134/83. HEENT: PERRLA, intact. NECK: Supple. No carotid bruit or thyromegaly. CHEST: Clear to auscultation. HEART: S1 and S2, regular. ABDOMEN: Soft. EXTREMITIES: Clubbing and cyanosis negative. LABORATORY DATA: Blood workup as follows; WBC 16, hemoglobin , hematocrit 31.7, and platelet count of 110. Chemistry shows sodium 137, potassium 2.8, chloride 104, carbon dioxide 28, anion gap of 8, BUN 17, creatinine 0.3, magnesium 1.3. Total protein 4.7, albumin 1.9 and globulin 0.7. IMPRESSION: Severe hypomagnesemia; severe hypokalemia; protein calorie malnutrition, not present on admission; anemia; thrombocytopenia; lethargic, metastatic colon cancer probably seizure disorder; cerebrovascular accident; subdural hematoma; vasogenic edema; history of new onset of seizure; status post rapid response. RECOMMENDATION: Continue supportive care. The patient condition is critical. Prognosis, extremely guarded, terminally ill. Thank you Dr. Hendricks for providing opportunity taking care of the patient. Sherrell Busby MD
--- NOTE | 2016-12-04 15:10 | PN ---
DATE: 12/04/2016 SUBJECTIVE: The patient is in bed, in no acute distress, however, end stage and chronically ill and weak and poorly responsive. PHYSICAL EXAMINATION VITAL SIGNS: Temperature is 97, blood pressure is 130/80, respiratory rate of 22, heart rate of 101. HEENT: Unremarkable. NECK: Supple. LUNGS: Decreased breath sounds. HEART: Normal, S1 and S2. ABDOMEN: Soft. LABORATORY DATA: Reveals a white count of 16,000, hemoglobin of 10, potassium is 2.8, BUN of 17, creatinine of 0.3 and microbiology is noted. Isis Hernandez's note is reviewed. ASSESSMENT AND PLAN: This is a 61-year-old female who is poorly responsive at this point and is end stage, colon cancer stage with metastasis to the brain, bone and liver, and had sepsis with Susy albicans fungemia from a Port-A-Cath removed. Overall prognosis is quite poor for this patient. Should consider hospice setting. Many further care in this patient. Lang Akhtar MD
[2016-12-04] MEDS: Multivitamin Therapeutic Tab PO SCH (16:39)
[2016-12-04] MEDS ORDERED: Magnesium Sulfate 2 GM in Sodium Chloride 0.9% 100 ML IVPB ONE (20:00)
[2016-12-05] MEDS: Aluminum Hydroxide/Magnesium 30 ML, DiphenhydrAMINE 75 MG, Lidocaine 2% Viscous 30 ML PO SCH ×4 (00:14→17:03)
[2016-12-05] MEDS: HYDROmorphone 1 mg/ml ISec IVP PRN ×9 (00:37→22:49)
[2016-12-05 06:52] LABS: INR 1.22 (0.93-1.08); PARTIAL THROMBOPLASTIN TIME 35.2 Seconds (23.7-30.8); PROTHROMBIN TIME 13.2 Seconds (9.9-11.8)
[2016-12-05 07:03] LABS: ALB/GLOB RATIO 0.8 (1.1-1.8); ALBUMIN 1.9 g/dL (3.0-4.8); ALT/SGPT 20 U/L (7-56); AST/SGOT 22 U/L (15-39); BLOOD UREA NITROGEN 19 mg/dL (7-21); CALCIUM 7.4 mg/dL (8.4-10.5); GFR AFRICAN-AMERICAN > 60; GFR NON-AFRICAN AMERICAN > 60
--- NOTE | 2016-12-05 07:24 | CP.PCM.PN ---
<Cassie Arcos - Last Filed: 12/05/16 07:39> Subjective - Date & Time of Evaluation Date of Evaluation: 12/05/16 Time of Evaluation: 07:21 - Subjective Subjective: PGY-[address] Hendricks No more hand twitching reported. Pt did not eat. Pt cannot verbalize pain. Moaning upon touch. Aroused to touch Noted wound with foul smelling odor per wound care team Family has not finalized on which direction / goals of care per palliative care team Objective - Vital Signs/Intake and Output Vital Signs (last 24 hours): Temp Pulse Resp BP Pulse Ox 97.4 F L 98 H 28 H 120/80 99 12/04/16 16:00 12/04/16 16:00 12/04/16 16:00 12/04/16 16:00 12/04/16 16:00 Intake and Output: 12/05/16 12/05/16 06:59 18:59 Intake Total 0 1562 Output Total 1000 Balance -1000 1562 - Medications Medications: Current Medications Acetaminophen (Tylenol 650 Mg Supp) 650 mg RC Q4H PRN PRN Reason: Fever >100.4 F Last Admin: 11/01/16 21:18 Dose: 650 mg Collagenase (Santyl) 0 gm TOP DAILY [facility] Last Admin: 12/04/16 10:55 Dose: 1 applic Al Hydrox/Mg Hydrox/Simethicone 30 ml/Diphenhydramine HCl 75 mg/Lidocaine 30 ml 0 ml PO QID [facility] Last Admin: 12/05/16 00:14 Dose: Not Given Diphenhydramine HCl (Benadryl) 50 mg IVP HS PRN PRN Reason: Insomnia Last Admin: 11/27/16 01:00 Dose: 50 mg Ergocalciferol (Drisdol 50,000 Intl Units Cap) 1 cap PO Q7D [facility] Last Admin: 12/03/16 17:06 Dose: Not Given Ferrous Sulfate (Feosol) 324 mg PO TID [facility] Last Admin: 12/03/16 17:07 Dose: Not Given Fluconazole (Diflucan) 200 mg PO DAILY [facility] PRN Reason: Protocol Stop: 12/12/16 10:01 Last Admin: 12/03/16 09:27 Dose: Not Given Home Med (Home Med) 1 unit PO Q12H PRN PRN Reason: Inflammation Last Admin: 10/18/16 11:03 Dose: 1 unit Hydralazine HCl (Apresoline) 10 mg IVP Q4H PRN PRN Reason: Systolic Blood Pressure Hydromorphone HCl (Dilaudid) 1 mg IVP Q1H PRN PRN Reason: Pain, moderate (4-7) Last Admin: 12/05/16 03:39 Dose: 1 mg Levetiracetam (Keppra 500mg Ivpb) 500 mg in 100 mls @ 400 mls/hr IV Q12 [facility] Last Admin: 12/04/16 22:36 Dose: 400 mls/hr Valproate Sodium 250 mg/ (Sodium Chloride) 102.5 mls @ 100 mls/hr IVPB Q12 [facility] Last Admin: 12/04/16 22:35 Dose: 100 mls/hr Micafungin Sodium 100 mg/ (Sodium Chloride) 100 mls @ 100 mls/hr IV DAILY [facility] PRN Reason: Protocol Stop: 12/13/16 15:01 Last Admin: 12/03/16 16:01 Dose: 100 mls/hr Multivitamins/Vitamin C 10 ml/Chromium/Copper/Manganese/Zinc 1 ml/ Amino Acids/ Electrolytes/Dextrose 2,011 mls @ 83 mls/hr IV .Q24H [facility] Stop: 12/07/16 17:59 Last Admin: 12/04/16 18:10 Dose: 83 mls/hr Magnesium Hydroxide (Milk Of Magnesia) 30 ml PO DAILY PRN PRN Reason: skin irritation Last Admin: 12/02/16 14:09 Dose: 30 ml Multi-Ingredient Ointment (Hydrophor Oint) 0 gm TOP Q6H PRN PRN Reason: Dry lip Pantoprazole Sodium (Protonix Inj) 40 mg IVP DAILY [facility] Propranolol HCl (Inderal La) 120 mg PO DAILY [facility] Last Admin: 12/03/16 09:27 Dose: Not Given Sucralfate (Carafate Oral Susp) 1 gm PO BID [facility] Last Admin: 12/03/16 17:06 Dose: Not Given - Labs Labs: 12/04/16 06:00 12/05/16 06:00 PT 13.2 Seconds (9.9-11.8) H 12/05/16 06:00 INR 1.22 (0.93-1.08) H 12/05/16 06:00 APTT 35.2 Seconds (23.7-30.8) H 12/05/16 06:00 - Constitutional Appears: Cachectic, Chronically Ill - Head Exam Head Exam: ATRAUMATIC, NORMAL INSPECTION, NORMOCEPHALIC - Eye Exam Eye Exam: absent: PERRL (Pupil at 4mm, sluggishly reactive to light bl), Scleral icterus - ENT Exam ENT Exam: Mucous Membranes Moist - Respiratory Exam Respiratory Exam: Decreased Breath Sounds (bilateral basilar), Clear to Ausculation Bilateral. absent: Rales, Rhonchi, Wheezes - Cardiovascular Exam Cardiovascular Exam: REGULAR RHYTHM, +S1, +S2 - GI/Abdominal Exam GI & Abdominal Exam: Soft. absent: Guarding, Rigid Additional comments: dark bilous stool in ostomy bag, skin erythema improves - Neurological Exam Additional comments: moan to touch - Skin Skin Exam: Dry, Warm Assessment and Plan - Assessment and Plan (Free Text) Plan: 61 F admitted on 10/09/16 with sepsis post chemotherapy with 2 cycles of FOLFOX based chemotherapy with Avastin. The hospital course was complicated by (1) seizure due to new stroke vs brain mets, (2) anemia due to GI bleeding requiring transfusion and (3) fungemia/bactermia with Port removal (11/14/16) which pt is 2 weeks of IV daptomycin/mycamine, then PO antifungal, then back on IV mycamine due to no PO intake. Pt has zero oral intake incluing meds. Plan: [facility] in Palliative and Dr. Hendricks have met for 45 minutes last Saturday. Pt remains full code. Per palliative care team, pt family has not reached decision as of today. If pt decides on full code, Dr. Hendricks would like to consult IR for peg placement and re-consult for penitentiary placement. If family chooses hospice, can start hospice in-patient. Altered Mental Status, only arousable by touch, no PO intake Stroke, ischemic with hemorrhagic conversion, Enlarged occipital-parietal infarct Cannot rule out brain mets Seizure due to ischemic stroke vs mets - Continue with keppra and valproic acid - Neuro checks - May start ASA pending PO status - seizure precaution Imaging - Repeat MRI 12/03/16: No change in size of left occipital hemorrhage and small thin left subdural hematoma (subacute) An increase in size of acute infarct in L posterior temporal lobe occipital and parietal lobes. Increased white matter edema in R occipital lobe without a diffusion abnormality. (could be metastatic lesions) Vasogenic edema in the right cerebellar hemisphere secondary to the enhancing metastatic lesion identified previously. - MRI/MRA : R cerebral hemisphere - 0.2cm enhancing mass with moderate local edema L occipital lobe - 3.9cm probably subacute infarct vs glioma Bilateral frontal, right temporociipital, brain stem - could be metastes - CT head no contrast (11/27) with encephalomalacia, ct scan reveal hypodensities right cerebellum and bilateral occipital, which were there before compared to CT of the head from 10/11/16. - EEG: b/l slowing waves, no epileptic form wave - 2 RADIO ENGINEERING TEACHER (11/27) for blurry vision turned blank stair, which later turned tonic- clonic movements. During RADIO ENGINEERING TEACHER, she was responsive to only painful stimuli. Left sided facial droop was experienced. Pt was trasnferred to ICU, now downgraded to remote telemetry. - RADIO ENGINEERING TEACHER (11/23) Pt was hypotensive and AMS on 11/23 [employer]IO ENGINEERING TEACHER due to narcotic side effect. Hb stable at 10.5 Severe anemia, s/p 30 u pRBC Thrombocytopenia s/p plt transfusion Neutropenia - resolved Neuropathic Pain - Dilaudud 1q1 PRN - Hold RESEARCH TECH for now. Hold Durgesic - Per Dr Hendricks, do not add more pain meds now. Maintain at current pain regimen. Upper GI bleed s/p EGD with push enteroscopy <-- EGD <-- bleeding scan x 2 ( negative) - No source of bleeding at examined duodedeum and jejunum - Propranolol 120 - Consider intraoperative enteroscopy or outpatient capsule endoscopy. 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 end-colostomy Susy esophagitis Pathology: Poorly differentiated colorectal adenocarcinoma metasiasis to bowel wall and serosa and one resection margin. 3/5 lymph nodes positive for metastasis - Microstaellite stable (08/13/16). Has ruled out rollins syndrome Sepsis due to C. albicans Fungemia, probably from port-a-cath Bacteremia with methicillin-resistant coagulase negative staph in repeated cx Gram negative bacilli in urine with minor - minor removed (11/24) Nose culture coagulase neg staphylococcus (11/24) - continue mycamine (day 14 since port removal) - Then switch to PO diflucan for another 2 weeks for total of 4 week antifungal tx - Now back on IV mycamine due to no PO - Off daptomycin for bactermeia r/o picc, r/o contamination (1/4 bottles) - repeated urine cx negative - observe off abx - Hold valganciclovir, no CMV on esophagus ulcer - L picc was placed on 10/31/16 which was not replaced due to coagulopathy and bleeding. Severe hypokalemia Hypernatermia Severe malnutrition, albumin 2.0 Hypomandnesemia Dysphagia - No PO intake - replete as needed - Ensure and PO supplements on hold - KCL piggybag Edema - lasix 20q1 Prophylasix - SCD, protonix IV s/r/d/w Dr. Hendricks <Kedar Hendricks P - Last Filed: 12/09/16 12:43> Objective - Vital Signs/Intake and Output Vital Signs (last 24 hours): Temp Pulse Resp BP Pulse Ox 98.9 F 115 H 17 126/76 100 12/09/16 07:49 12/09/16 10:00 12/09/16 07:49 12/09/16 07:49 12/09/16 07:49 Intake and Output: 12/09/16 12/09/16 06:59 18:59 Intake Total 1562 0 Output Total 650 Balance 1562 -650 - Medications Medications: Current Medications Acetaminophen (Tylenol 650 Mg Supp) 650 mg RC Q4H PRN PRN Reason: Fever >100.4 F Last Admin: 11/01/16 21:18 Dose: 650 mg Collagenase (Santyl) 0 gm TOP DAILY [facility] Last Admin: 12/09/16 09:03 Dose: 1 applic Al Hydrox/Mg Hydrox/Simethicone 30 ml/Diphenhydramine HCl 75 mg/Lidocaine 30 ml 0 ml PO QID [facility] Last Admin: 12/09/16 09:03 Dose: Not Given Hydralazine HCl (Apresoline) 10 mg IVP Q4H PRN PRN Reason: Systolic Blood Pressure Levetiracetam 1,000 mg/ Sodium (Chloride) 110 mls @ 460 mls/hr IV Q12 [facility] Last Admin: 12/09/16 09:01 Dose: 460 mls/hr Valproate Sodium 500 mg/ (Sodium Chloride) 105 mls @ 100 mls/hr IVPB Q12 [facility] Last Admin: 12/09/16 09:02 Dose: 100 mls/hr Hydromorphone HCl (Dilaudid-Hp 1 Mg/Ml [employer]) 25 mls @ 0 mls/hr IV PRN PRN; Protocol; Per Protocol PRN Reason: RESEARCH TECH PER MD ORDER Last Admin: 12/08/16 20:12 Dose: 25 mls/hr Multivitamins/Vitamin C 10 ml/Chromium/Copper/Manganese/Zinc 1 ml/ Amino Acids/ Electrolytes/Dextrose 2,011 mls @ 83 mls/hr IV .Q24H [facility] Stop: 12/11/16 17:59 Last Admin: 12/08/16 17:00 Dose: 83 mls/hr Lorazepam (Ativan) 2 mg IVP Q6 PRN; Protocol PRN Reason: Seizure activity Last Admin: 12/09/16 01:44 Dose: 2 mg Magnesium Hydroxide (Milk Of Magnesia) 30 ml PO DAILY PRN PRN Reason: skin irritation Last Admin: 12/02/16 14:09 Dose: 30 ml Multi-Ingredient Ointment (Hydrophor Oint) 0 gm TOP Q6H PRN PRN Reason: Dry lip Pantoprazole Sodium (Protonix Inj) 40 mg IVP DAILY [facility] Last Admin: 12/09/16 09:02 Dose: 40 mg - Labs Labs: 12/08/16 06:00 12/08/16 06:00 PT 12.7 Seconds (9.9-11.8) H 12/07/16 06:30 INR 1.18 (0.93-1.08) H 12/07/16 06:30 APTT 37.1 Seconds (23.7-30.8) H 12/07/16 06:30 Attending/Attestation - Attestation I have personally seen and examined this patient.: Yes I have fully participated in the care of the patient.: Yes I have reviewed all pertinent clinical information, including history, physical exam and plan: Yes
[2016-12-05 07:47] LABS: BASO # 0.01 K/mm3 (0.0-2.0); BASO % 0.1 % (0.0-3.0); EOS % 0.1 % (1.5-5.0); GRAN # 13.83 (1.4-6.5); GRAN % 86.6 % (50.0-68.0); HEMOGLOBIN 9.2 gm/dL (12.0-16.0); LYMPH # 0.8 (1.2-3.4); LYMPH % 5.1 % (22.0-35.0); MEAN CELL VOLUME 92.2 fL (80.0-105.0); MEAN CORPUSCULAR HGB CONC 32.5 g/dl (31.0-37.0); MEAN PLATELET VOLUME 11.5 fl (7.0-11.0); MONO # 1.3 (0.1-0.6); MONO % 8.1 % (1.0-6.0); PLATELET COUNT 112 10^3/uL (120.0-450.0); RBC 3.07 10^6/uL (3.5-6.1); RED CELL DISTRIBUTION WIDTH 15.6 % (11.5-14.5)
--- NOTE | 2016-12-05 08:42 | CP.PCM.PN ---
<Dereje London - Last Filed: 12/05/16 09:02> Subjective - Date & Time of Evaluation Date of Evaluation: 12/05/16 Time of Evaluation: 08:38 - Subjective Subjective: General Surgery Dr. Mccracken Patient seen and examined this morning at bedside. No acute events over night. Patient is unresponsive to verbal stimuli, spontaneously moves away from painful stimuli. Objective - Vital Signs/Intake and Output Vital Signs (last 24 hours): Temp Pulse Resp BP Pulse Ox 97.8 F 113 H 22 134/102 H 98 12/05/16 07:46 12/05/16 07:46 12/05/16 07:46 12/05/16 07:46 12/05/16 07:46 Intake and Output: 12/05/16 12/05/16 06:59 18:59 Intake Total 0 1562 Output Total 1000 Balance -1000 1562 - Medications Medications: Current Medications Acetaminophen (Tylenol 650 Mg Supp) 650 mg RC Q4H PRN PRN Reason: Fever >100.4 F Last Admin: 11/01/16 21:18 Dose: 650 mg Collagenase (Santyl) 0 gm TOP DAILY [facility] Last Admin: 12/04/16 10:55 Dose: 1 applic Al Hydrox/Mg Hydrox/Simethicone 30 ml/Diphenhydramine HCl 75 mg/Lidocaine 30 ml 0 ml PO QID [facility] Last Admin: 12/05/16 00:14 Dose: Not Given Diphenhydramine HCl (Benadryl) 50 mg IVP HS PRN PRN Reason: Insomnia Last Admin: 11/27/16 01:00 Dose: 50 mg Ergocalciferol (Drisdol 50,000 Intl Units Cap) 1 cap PO Q7D [facility] Last Admin: 12/03/16 17:06 Dose: Not Given Ferrous Sulfate (Feosol) 324 mg PO TID [facility] Last Admin: 12/03/16 17:07 Dose: Not Given Fluconazole (Diflucan) 200 mg PO DAILY [facility] PRN Reason: Protocol Stop: 12/12/16 10:01 Last Admin: 12/03/16 09:27 Dose: Not Given Home Med (Home Med) 1 unit PO Q12H PRN PRN Reason: Inflammation Last Admin: 10/18/16 11:03 Dose: 1 unit Hydralazine HCl (Apresoline) 10 mg IVP Q4H PRN PRN Reason: Systolic Blood Pressure Hydromorphone HCl (Dilaudid) 1 mg IVP Q1H PRN PRN Reason: Pain, moderate (4-7) Last Admin: 12/05/16 03:39 Dose: 1 mg Levetiracetam (Keppra 500mg Ivpb) 500 mg in 100 mls @ 400 mls/hr IV Q12 [facility] Last Admin: 12/04/16 22:36 Dose: 400 mls/hr Valproate Sodium 250 mg/ (Sodium Chloride) 102.5 mls @ 100 mls/hr IVPB Q12 [facility] Last Admin: 12/04/16 22:35 Dose: 100 mls/hr Micafungin Sodium 100 mg/ (Sodium Chloride) 100 mls @ 100 mls/hr IV DAILY [facility] PRN Reason: Protocol Stop: 12/13/16 15:01 Last Admin: 12/03/16 16:01 Dose: 100 mls/hr Multivitamins/Vitamin C 10 ml/Chromium/Copper/Manganese/Zinc 1 ml/ Amino Acids/ Electrolytes/Dextrose 2,011 mls @ 83 mls/hr IV .Q24H [facility] Stop: 12/07/16 17:59 Last Admin: 12/04/16 18:10 Dose: 83 mls/hr Magnesium Hydroxide (Milk Of Magnesia) 30 ml PO DAILY PRN PRN Reason: skin irritation Last Admin: 12/02/16 14:09 Dose: 30 ml Multi-Ingredient Ointment (Hydrophor Oint) 0 gm TOP Q6H PRN PRN Reason: Dry lip Pantoprazole Sodium (Protonix Inj) 40 mg IVP DAILY [facility] Propranolol HCl (Inderal La) 120 mg PO DAILY [facility] Last Admin: 12/03/16 09:27 Dose: Not Given Sucralfate (Carafate Oral Susp) 1 gm PO BID [facility] Last Admin: 12/03/16 17:06 Dose: Not Given - Labs Labs: 12/05/16 06:00 12/05/16 06:00 PT 13.2 Seconds (9.9-11.8) H 12/05/16 06:00 INR 1.22 (0.93-1.08) H 12/05/16 06:00 APTT 35.2 Seconds (23.7-30.8) H 12/05/16 06:00 - Constitutional Appears: No Acute Distress, Chronically Ill - ENT Exam ENT Exam: Mucous Membranes Moist - Respiratory Exam Respiratory Exam: NORMAL BREATHING PATTERN. absent: Accessory Muscle Use, Respiratory Distress - Cardiovascular Exam Cardiovascular Exam: REGULAR RHYTHM - GI/Abdominal Exam GI & Abdominal Exam: Guarding, Soft. absent: Firm, Rigid Additional comments: Ostomy producing non-melenoic fecal material. Patient moans quietly to palpation of her abdomen and tries to push examining physician's hands away. - Neurological Exam Neurological Exam: Altered Additional comments: Unable to arouse. Only responsive to painful stimuli. - Skin Skin Exam: Dry, Normal Color, Warm Additional comments: Midline surgical incision healing appropriately, no signs of infection, inflammation or drainage. Assessment and Plan - Assessment and Plan (Free Text) Assessment: 61 F Colon CA and Sacral decub w/ worsening mental status POD18 s/p Marquita's Plan: Continue with current medical management. Monitor H+H, Hgb 9.2, Hct 28.3 Monitor electrolytes, Potassium 3.9 today Apply milk of magnesia on excoriation at the colostomy site, keep dry and change colostomy bag prn Monitor surgical midline incision and ostomy sites for signs of infection, inflammation, drainage or dehiscence. No need for surgical intervention at this time. Family struggling with decision to sign DNR/DNI, currently still full code. Will discuss with Dr. Kaykay Reyez Lita PGY 1 <Yoan Mccracken - Last Filed: 12/12/16 23:17> Objective - Vital Signs/Intake and Output Vital Signs (last 24 hours): Temp Pulse Resp BP Pulse Ox 98.5 F 160 H 20 157/90 H 97 12/12/16 06:00 12/12/16 06:00 12/12/16 06:00 12/12/16 06:00 12/12/16 06:00 Intake and Output: 12/12/16 12/13/16 18:59 06:59 Intake Total 0 Output Total 300 Balance -300 - Medications Medications: Current Medications Acetaminophen (Tylenol 650 Mg Supp) 650 mg RC Q4H PRN PRN Reason: Fever >100.4 F Last Admin: 11/01/16 21:18 Dose: 650 mg Albuterol/Ipratropium (Duoneb 3 Mg/0.5 Mg (3 Ml) Ud) 3 ml IH [id number] PRN PRN Reason: Cough and congestion Last Admin: 12/12/16 22:10 Dose: 3 ml Collagenase (Santyl) 0 gm TOP DAILY [facility] Last Admin: 12/12/16 09:16 Dose: 1 applic Diphenhydramine HCl (Benadryl) 50 mg IVP Q12H PRN PRN Reason: Allergy symptoms Levetiracetam 1,000 mg/ Sodium (Chloride) 110 mls @ 460 mls/hr IV Q12 [facility] Last Admin: 12/12/16 21:50 Dose: 460 mls/hr Valproate Sodium 500 mg/ (Sodium Chloride) 105 mls @ 100 mls/hr IVPB Q12 [facility] Last Admin: 12/12/16 21:50 Dose: 100 mls/hr Hydromorphone HCl (Dilaudid-Hp 1 Mg/Ml Sonography Technologist) 25 mls @ 1.5 mls/hr IV .[id number] [facility] Lorazepam (Ativan) 2 mg IVP Q6 PRN; Protocol PRN Reason: Seizure activity Last Admin: 12/12/16 18:22 Dose: 2 mg Magnesium Hydroxide (Milk Of Magnesia) 30 ml PO DAILY PRN PRN Reason: skin irritation Last Admin: 12/02/16 14:09 Dose: 30 ml Multi-Ingredient Ointment (Hydrophor Oint) 0 gm TOP Q6H PRN PRN Reason: Dry lip Scopolamine (Transderm-Scop) 1 patch TD Q3D [facility] Last Admin: 12/12/16 09:49 Dose: 1 patch - Labs Labs: 12/12/16 07:45 12/12/16 07:45 PT 12.7 Seconds (9.9-11.8) H 12/07/16 06:30 INR 1.18 (0.93-1.08) H 12/07/16 06:30 APTT 37.1 Seconds (23.7-30.8) H 12/07/16 06:30 Assessment and Plan - Assessment and Plan (Free Text) Plan: Patient was seen and examined by me. I agree with assessment and plan as per resident's note.
[2016-12-05] MEDS: levETIRAcetam 500mg IVPB 500 MG/100 ML BAG IV SCH ×2 (09:41→21:17)
[2016-12-05] MEDS: Micafungin 100 MG in Sodium Chloride 0.9% 100 ML IV SCH (09:42)
[2016-12-05] MEDS: Valproate 250 MG in Sodium Chloride 0.9% 100 ML IVPB SCH ×2 (09:43→21:17)
[2016-12-05] MEDS: Collagenase 250 Units/gm Ointment(30 gm) TOP SCH (09:49)
--- NOTE | 2016-12-05 11:23 | CP.PCM.PN ---
<Laura Navarro - Last Filed: 12/05/16 13:48> Subjective - Date & Time of Evaluation Date of Evaluation: 12/05/16 Time of Evaluation: 09:25 - Subjective Subjective: PGY-2 neurology progress note for Dr Moya. Patient with no improvement in mental status, withdraws to pain, not following commands and is non verbal. Objective - Vital Signs/Intake and Output Vital Signs (last 24 hours): Temp Pulse Resp BP Pulse Ox 97.8 F 128 H 22 134/102 H 98 12/05/16 07:46 12/05/16 10:00 12/05/16 07:46 12/05/16 07:46 12/05/16 07:46 Intake and Output: 12/05/16 12/05/16 06:59 18:59 Intake Total 0 1562 Output Total 1000 Balance -1000 1562 - Medications Medications: Current Medications Acetaminophen (Tylenol 650 Mg Supp) 650 mg RC Q4H PRN PRN Reason: Fever >100.4 F Last Admin: 11/01/16 21:18 Dose: 650 mg Collagenase (Santyl) 0 gm TOP DAILY [facility] Last Admin: 12/05/16 09:49 Dose: 1 applic Al Hydrox/Mg Hydrox/Simethicone 30 ml/Diphenhydramine HCl 75 mg/Lidocaine 30 ml 0 ml PO QID [facility] Last Admin: 12/05/16 09:50 Dose: Not Given Diphenhydramine HCl (Benadryl) 50 mg IVP HS PRN PRN Reason: Insomnia Last Admin: 11/27/16 01:00 Dose: 50 mg Ergocalciferol (Drisdol 50,000 Intl Units Cap) 1 cap PO Q7D [facility] Last Admin: 12/03/16 17:06 Dose: Not Given Ferrous Sulfate (Feosol) 324 mg PO TID [facility] Last Admin: 12/03/16 17:07 Dose: Not Given Fluconazole (Diflucan) 200 mg PO DAILY [facility] PRN Reason: Protocol Stop: 12/12/16 10:01 Last Admin: 12/03/16 09:27 Dose: Not Given Home Med (Home Med) 1 unit PO Q12H PRN PRN Reason: Inflammation Last Admin: 10/18/16 11:03 Dose: 1 unit Hydralazine HCl (Apresoline) 10 mg IVP Q4H PRN PRN Reason: Systolic Blood Pressure Hydromorphone HCl (Dilaudid) 1 mg IVP Q1H PRN PRN Reason: Pain, moderate (4-7) Last Admin: 12/05/16 09:41 Dose: 1 mg Levetiracetam (Keppra 500mg Ivpb) 500 mg in 100 mls @ 400 mls/hr IV Q12 [facility] Last Admin: 12/05/16 09:41 Dose: 400 mls/hr Valproate Sodium 250 mg/ (Sodium Chloride) 102.5 mls @ 100 mls/hr IVPB Q12 [facility] Last Admin: 12/05/16 09:43 Dose: 100 mls/hr Micafungin Sodium 100 mg/ (Sodium Chloride) 100 mls @ 100 mls/hr IV DAILY [facility] PRN Reason: Protocol Stop: 12/13/16 15:01 Last Admin: 12/05/16 09:42 Dose: 100 mls/hr Multivitamins/Vitamin C 10 ml/Chromium/Copper/Manganese/Zinc 1 ml/ Amino Acids/ Electrolytes/Dextrose 2,011 mls @ 83 mls/hr IV .Q24H [facility] Stop: 12/07/16 17:59 Last Admin: 12/04/16 18:10 Dose: 83 mls/hr Magnesium Hydroxide (Milk Of Magnesia) 30 ml PO DAILY PRN PRN Reason: skin irritation Last Admin: 12/02/16 14:09 Dose: 30 ml Multi-Ingredient Ointment (Hydrophor Oint) 0 gm TOP Q6H PRN PRN Reason: Dry lip Pantoprazole Sodium (Protonix Inj) 40 mg IVP DAILY [facility] Last Admin: 12/05/16 09:41 Dose: 40 mg Propranolol HCl (Inderal La) 120 mg PO DAILY [facility] Last Admin: 12/03/16 09:27 Dose: Not Given Sucralfate (Carafate Oral Susp) 1 gm PO BID [facility] Last Admin: 12/03/16 17:06 Dose: Not Given - Labs Labs: 12/05/16 06:00 12/05/16 06:00 PT 13.2 Seconds (9.9-11.8) H 12/05/16 06:00 INR 1.22 (0.93-1.08) H 12/05/16 06:00 APTT 35.2 Seconds (23.7-30.8) H 12/05/16 06:00 - Constitutional Appears: No Acute Distress, Older Than Stated Age, Confused, Cachectic, Chronically Ill - Head Exam Head Exam: NORMAL INSPECTION, NORMOCEPHALIC - Eye Exam Eye Exam: Normal appearance - ENT Exam ENT Exam: Mucous Membranes Dry - Neck Exam Neck Exam: Normal Inspection - Respiratory Exam Respiratory Exam: Decreased Breath Sounds. absent: Rales, Rhonchi, Wheezes, Respiratory Distress, Stridor - Cardiovascular Exam Cardiovascular Exam: Tachycardia, REGULAR RHYTHM, +S1, +S2 - GI/Abdominal Exam GI & Abdominal Exam: Soft, Tenderness, Hypoactive Bowel Sounds Additional comments: ostomy in place. - Extremities Exam Extremities Exam: Pedal Edema - Neurological Exam Additional comments: pupils equal, reactive to light, but sluggish + corneal reflex GCS of 7 Unresponsive to verbal commands, withdraws with pain, doesn't follow commands No gross movement of her extremities. Reflexes are sluggish throughout - Psychiatric Exam Psychiatric exam: Depressed - Skin Additional comments: + Sacral decubitie Assessment and Plan - Assessment and Plan (Free Text) Assessment: Patient is a 61 y/o with pmh of stage 4 colon ca metastatic to the bone s/p chemo with folfox 6, htn whom initially presented on 10/09 with persistent diarrhea, and was found to have severe sepsis 2nd to radiation induced enteritis , with multiple organ dysfunction, patient is s/p Hartmanns procedure for SBO. 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 No new episodes of muscle twitches reported, however patient is still very comatose, minimally responsive with deep chest rubs. Repeat MRI 12/03/16: No change in size of left occipital hemorrhage and small thin left subdural hematoma. The subdural is more conspicuous and bright on T1 weighted images consistent with evolution into a subacute phase. There is an increase in the size of the acute infarct involving the left posterior temporal lobe occipital and parietal lobes. There is no change in size of the focal hemorrhage in the left occipital lobe which measures 2.3 cm in diameter.There is increased white matter edema in the right occipital lobe without a diffusion abnormality. This could be secondary to the metastatic lesions seen in the right cerebellar hemisphere adjacent to the tentorium. There were no enhancing lesions seen in the right occipital lobe on the previous study. There is vasogenic edema in the right cerebellar hemisphere secondary to the enhancing metastatic lesion identified previously. - Plan: - Can start ASA next week - Continue with keppra and valproic acid - Neuro checks - C/W palliative care - Very poor prognosis - Monitor and correct electrolytes, - Thank you for consulting Dr Moya. Patient seen, examined and case discussed with Dr Moya. <Ravi Moya - Last Filed: 12/05/16 14:17> Objective - Vital Signs/Intake and Output Vital Signs (last 24 hours): Temp Pulse Resp BP Pulse Ox 97.8 F 128 H 22 134/102 H 98 12/05/16 07:46 12/05/16 10:00 12/05/16 07:46 12/05/16 07:46 12/05/16 07:46 Intake and Output: 12/05/16 12/05/16 06:59 18:59 Intake Total 0 1562 Output Total 1000 Balance -1000 1562 - Medications Medications: Current Medications Acetaminophen (Tylenol 650 Mg Supp) 650 mg RC Q4H PRN PRN Reason: Fever >100.4 F Last Admin: 11/01/16 21:18 Dose: 650 mg Collagenase (Santyl) 0 gm TOP DAILY [facility] Last Admin: 12/05/16 09:49 Dose: 1 applic Al Hydrox/Mg Hydrox/Simethicone 30 ml/Diphenhydramine HCl 75 mg/Lidocaine 30 ml 0 ml PO QID [facility] Last Admin: 12/05/16 09:50 Dose: Not Given Diphenhydramine HCl (Benadryl) 50 mg IVP HS PRN PRN Reason: Insomnia Last Admin: 11/27/16 01:00 Dose: 50 mg Ergocalciferol (Drisdol 50,000 Intl Units Cap) 1 cap PO Q7D [facility] Last Admin: 12/03/16 17:06 Dose: Not Given Ferrous Sulfate (Feosol) 324 mg PO TID [facility] Last Admin: 12/03/16 17:07 Dose: Not Given Fluconazole (Diflucan) 200 mg PO DAILY [facility] PRN Reason: Protocol Stop: 12/12/16 10:01 Last Admin: 12/03/16 09:27 Dose: Not Given Home Med (Home Med) 1 unit PO Q12H PRN PRN Reason: Inflammation Last Admin: 10/18/16 11:03 Dose: 1 unit Hydralazine HCl (Apresoline) 10 mg IVP Q4H PRN PRN Reason: Systolic Blood Pressure Hydromorphone HCl (Dilaudid) 1 mg IVP Q1H PRN PRN Reason: Pain, moderate (4-7) Last Admin: 12/05/16 13:07 Dose: 1 mg Levetiracetam (Keppra 500mg Ivpb) 500 mg in 100 mls @ 400 mls/hr IV Q12 [facility] Last Admin: 12/05/16 09:41 Dose: 400 mls/hr Valproate Sodium 250 mg/ (Sodium Chloride) 102.5 mls @ 100 mls/hr IVPB Q12 [facility] Last Admin: 12/05/16 09:43 Dose: 100 mls/hr Micafungin Sodium 100 mg/ (Sodium Chloride) 100 mls @ 100 mls/hr IV DAILY [facility] PRN Reason: Protocol Stop: 12/13/16 15:01 Last Admin: 12/05/16 09:42 Dose: 100 mls/hr Multivitamins/Vitamin C 10 ml/Chromium/Copper/Manganese/Zinc 1 ml/ Amino Acids/ Electrolytes/Dextrose 2,011 mls @ 83 mls/hr IV .Q24H [facility] Stop: 12/07/16 17:59 Last Admin: 12/04/16 18:10 Dose: 83 mls/hr Magnesium Hydroxide (Milk Of Magnesia) 30 ml PO DAILY PRN PRN Reason: skin irritation Last Admin: 12/02/16 14:09 Dose: 30 ml Multi-Ingredient Ointment (Hydrophor Oint) 0 gm TOP Q6H PRN PRN Reason: Dry lip Pantoprazole Sodium (Protonix Inj) 40 mg IVP DAILY [facility] Last Admin: 12/05/16 09:41 Dose: 40 mg Propranolol HCl (Inderal La) 120 mg PO DAILY [facility] Last Admin: 12/03/16 09:27 Dose: Not Given Sucralfate (Carafate Oral Susp) 1 gm PO BID [facility] Last Admin: 12/03/16 17:06 Dose: Not Given - Labs Labs: 12/05/16 06:00 12/05/16 06:00 PT 13.2 Seconds (9.9-11.8) H 12/05/16 06:00 INR 1.22 (0.93-1.08) H 12/05/16 06:00 APTT 35.2 Seconds (23.7-30.8) H 12/05/16 06:00 Attending/Attestation - Attestation I have personally seen and examined this patient.: Yes I have fully participated in the care of the patient.: Yes I have reviewed all pertinent clinical information, including history, physical exam and plan: Yes
--- NOTE | 2016-12-05 12:07 | CP.PCM.PN ---
<Yoana Osei - Last Filed: 12/05/16 12:05> Subjective - Date & Time of Evaluation Date of Evaluation: 12/05/16 Time of Evaluation: 09:15 - Subjective Subjective: S&E, sister at bedside. No acute overnight events, no change in mental status, not responsive,did not witness any twitching on right side as before. Objective - Vital Signs/Intake and Output Vital Signs (last 24 hours): Temp Pulse Resp BP Pulse Ox 97.8 F 128 H 22 134/102 H 98 12/05/16 07:46 12/05/16 10:00 12/05/16 07:46 12/05/16 07:46 12/05/16 07:46 Intake and Output: 12/05/16 12/05/16 06:59 18:59 Intake Total 0 1562 Output Total 1000 Balance -1000 1562 - Medications Medications: Current Medications Acetaminophen (Tylenol 650 Mg Supp) 650 mg RC Q4H PRN PRN Reason: Fever >100.4 F Last Admin: 11/01/16 21:18 Dose: 650 mg Collagenase (Santyl) 0 gm TOP DAILY [facility] Last Admin: 12/05/16 09:49 Dose: 1 applic Al Hydrox/Mg Hydrox/Simethicone 30 ml/Diphenhydramine HCl 75 mg/Lidocaine 30 ml 0 ml PO QID [facility] Last Admin: 12/05/16 09:50 Dose: Not Given Diphenhydramine HCl (Benadryl) 50 mg IVP HS PRN PRN Reason: Insomnia Last Admin: 11/27/16 01:00 Dose: 50 mg Ergocalciferol (Drisdol 50,000 Intl Units Cap) 1 cap PO Q7D [facility] Last Admin: 12/03/16 17:06 Dose: Not Given Ferrous Sulfate (Feosol) 324 mg PO TID [facility] Last Admin: 12/03/16 17:07 Dose: Not Given Fluconazole (Diflucan) 200 mg PO DAILY [facility] PRN Reason: Protocol Stop: 12/12/16 10:01 Last Admin: 12/03/16 09:27 Dose: Not Given Home Med (Home Med) 1 unit PO Q12H PRN PRN Reason: Inflammation Last Admin: 10/18/16 11:03 Dose: 1 unit Hydralazine HCl (Apresoline) 10 mg IVP Q4H PRN PRN Reason: Systolic Blood Pressure Hydromorphone HCl (Dilaudid) 1 mg IVP Q1H PRN PRN Reason: Pain, moderate (4-7) Last Admin: 12/05/16 09:41 Dose: 1 mg Levetiracetam (Keppra 500mg Ivpb) 500 mg in 100 mls @ 400 mls/hr IV Q12 [facility] Last Admin: 12/05/16 09:41 Dose: 400 mls/hr Valproate Sodium 250 mg/ (Sodium Chloride) 102.5 mls @ 100 mls/hr IVPB Q12 [facility] Last Admin: 12/05/16 09:43 Dose: 100 mls/hr Micafungin Sodium 100 mg/ (Sodium Chloride) 100 mls @ 100 mls/hr IV DAILY [facility] PRN Reason: Protocol Stop: 12/13/16 15:01 Last Admin: 12/05/16 09:42 Dose: 100 mls/hr Multivitamins/Vitamin C 10 ml/Chromium/Copper/Manganese/Zinc 1 ml/ Amino Acids/ Electrolytes/Dextrose 2,011 mls @ 83 mls/hr IV .Q24H [facility] Stop: 12/07/16 17:59 Last Admin: 12/04/16 18:10 Dose: 83 mls/hr Magnesium Hydroxide (Milk Of Magnesia) 30 ml PO DAILY [facility] PRN Reason: skin irritation Last Admin: 12/02/16 14:09 Dose: 30 ml Multi-Ingredient Ointment (Hydrophor Oint) 0 gm TOP Q6H PRN PRN Reason: Dry lip Pantoprazole Sodium (Protonix Inj) 40 mg IVP DAILY [facility] Last Admin: 12/05/16 09:41 Dose: 40 mg Propranolol HCl (Inderal La) 120 mg PO DAILY [facility] Last Admin: 12/03/16 09:27 Dose: Not Given Sucralfate (Carafate Oral Susp) 1 gm PO BID [facility] Last Admin: 12/03/16 17:06 Dose: Not Given - Labs Labs: 12/05/16 06:00 12/05/16 06:00 PT 13.2 Seconds (9.9-11.8) H 12/05/16 06:00 INR 1.22 (0.93-1.08) H 12/05/16 06:00 APTT 35.2 Seconds (23.7-30.8) H 12/05/16 06:00 - Constitutional Appears: Chronically Ill - Head Exam Head Exam: NORMAL INSPECTION - Eye Exam Eye Exam: Normal appearance. absent: Scleral icterus - ENT Exam ENT Exam: Mucous Membranes Dry - Respiratory Exam Respiratory Exam: Decreased Breath Sounds, NORMAL BREATHING PATTERN. absent: Rales, Wheezes, Respiratory Distress - Cardiovascular Exam Cardiovascular Exam: +S1, +S2 - GI/Abdominal Exam GI & Abdominal Exam: Soft, Hypoactive Bowel Sounds. absent: Guarding, Organomegaly Additional comments: colostomy with small amount of dark stool. incision dry and intact. - Extremities Exam Extremities Exam: Normal Capillary Refill, Pedal Edema. absent: Calf Tenderness - Neurological Exam Neurological Exam: Altered Assessment and Plan - Assessment and Plan (Free Text) Assessment: ASSESSMENT: Altered Mental Status, s/p FU MRI, suggestive CVA, ? Brain mona New Onset Seizures Metastatic Stage IV Colon Cancer S/P Exploratory laparotomy with lysis of adhesions and repair of small bowel enterotomy and partial sigmoidectomy with end colostomy GI Bleed, S/P push enteroscopy: negative for bleed Anemia with multiple blood transfusions Elevated LFT, mainly alk phos, abdominal US done, 10/12 (+) sludge, no GB stones, CBD 5.0 cm, maybe medication induced, improving Fungemia PLAN: NPO, on TPN On Keppra/Valproate Sodium PO meds on hold PPI DVT prophylaxsis, scd/teds monitor cbc, electrolytes seizure precautions as per oncology, neurology family previously has met w/palliative care, no decision yet Seen and discussed with Dr. Null. <Tong Null V - Last Filed: 12/05/16 23:35> Objective - Vital Signs/Intake and Output Vital Signs (last 24 hours): Temp Pulse Resp BP Pulse Ox 97.8 F 115 H 20 136/85 100 12/05/16 16:00 12/05/16 18:00 12/05/16 16:00 12/05/16 16:00 12/05/16 16:00 Intake and Output: 12/05/16 12/06/16 18:59 06:59 Intake Total 1562 0 Output Total 1300 Balance 1562 -1300 - Medications Medications: Current Medications Acetaminophen (Tylenol 650 Mg Supp) 650 mg RC Q4H PRN PRN Reason: Fever >100.4 F Last Admin: 11/01/16 21:18 Dose: 650 mg Collagenase (Santyl) 0 gm TOP DAILY [facility] Last Admin: 12/05/16 09:49 Dose: 1 applic Al Hydrox/Mg Hydrox/Simethicone 30 ml/Diphenhydramine HCl 75 mg/Lidocaine 30 ml 0 ml PO QID [facility] Last Admin: 12/05/16 17:03 Dose: Not Given Diphenhydramine HCl (Benadryl) 50 mg IVP HS PRN PRN Reason: Insomnia Last Admin: 11/27/16 01:00 Dose: 50 mg Ergocalciferol (Drisdol 50,000 Intl Units Cap) 1 cap PO Q7D [facility] Last Admin: 12/03/16 17:06 Dose: Not Given Ferrous Sulfate (Feosol) 324 mg PO TID [facility] Last Admin: 12/03/16 17:07 Dose: Not Given Home Med (Home Med) 1 unit PO Q12H PRN PRN Reason: Inflammation Last Admin: 10/18/16 11:03 Dose: 1 unit Hydralazine HCl (Apresoline) 10 mg IVP Q4H PRN PRN Reason: Systolic Blood Pressure Hydromorphone HCl (Dilaudid) 1 mg IVP Q1H PRN PRN Reason: Pain, moderate (4-7) Last Admin: 12/05/16 22:49 Dose: 1 mg Levetiracetam (Keppra 500mg Ivpb) 500 mg in 100 mls @ 400 mls/hr IV Q12 [facility] Last Admin: 12/05/16 21:17 Dose: 400 mls/hr Valproate Sodium 250 mg/ (Sodium Chloride) 102.5 mls @ 100 mls/hr IVPB Q12 [facility] Last Admin: 12/05/16 21:17 Dose: 100 mls/hr Multivitamins/Vitamin C 10 ml/Chromium/Copper/Manganese/Zinc 1 ml/ Amino Acids/ Electrolytes/Dextrose 2,011 mls @ 83 mls/hr IV .Q24H [facility] Stop: 12/07/16 17:59 Last Admin: 12/05/16 17:03 Dose: 83 mls/hr Magnesium Hydroxide (Milk Of Magnesia) 30 ml PO DAILY PRN PRN Reason: skin irritation Last Admin: 12/02/16 14:09 Dose: 30 ml Multi-Ingredient Ointment (Hydrophor Oint) 0 gm TOP Q6H PRN PRN Reason: Dry lip Pantoprazole Sodium (Protonix Inj) 40 mg IVP DAILY [facility] Last Admin: 12/05/16 09:41 Dose: 40 mg Propranolol HCl (Inderal La) 120 mg PO DAILY [facility] Last Admin: 12/03/16 09:27 Dose: Not Given Sucralfate (Carafate Oral Susp) 1 gm PO BID [facility] Last Admin: 12/03/16 17:06 Dose: Not Given - Labs Labs: 12/05/16 06:00 12/05/16 06:00 PT 13.2 Seconds (9.9-11.8) H 12/05/16 06:00 INR 1.22 (0.93-1.08) H 12/05/16 06:00 APTT 35.2 Seconds (23.7-30.8) H 12/05/16 06:00 Attending/Attestation - Attestation I have personally seen and examined this patient.: Yes I have fully participated in the care of the patient.: Yes I have reviewed all pertinent clinical information, including history, physical exam and plan: Yes Notes (Text): th
--- NOTE | 2016-12-05 15:09 | CP.PCM.PN ---
Subjective - Date & Time of Evaluation Date of Evaluation: 12/05/16 Time of Evaluation: 14:00 - Subjective Subjective: Moaning, appears to be seizing. Objective - Vital Signs/Intake and Output Vital Signs (last 24 hours): Temp Pulse Resp BP Pulse Ox 97.8 F 128 H 22 134/102 H 98 12/05/16 07:46 12/05/16 10:00 12/05/16 07:46 12/05/16 07:46 12/05/16 07:46 Intake and Output: 12/05/16 12/05/16 06:59 18:59 Intake Total 0 1562 Output Total 1000 Balance -1000 1562 - Medications Medications: Current Medications Acetaminophen (Tylenol 650 Mg Supp) 650 mg RC Q4H PRN PRN Reason: Fever >100.4 F Last Admin: 11/01/16 21:18 Dose: 650 mg Collagenase (Santyl) 0 gm TOP DAILY [facility] Last Admin: 12/05/16 09:49 Dose: 1 applic Al Hydrox/Mg Hydrox/Simethicone 30 ml/Diphenhydramine HCl 75 mg/Lidocaine 30 ml 0 ml PO QID [facility] Last Admin: 12/05/16 09:50 Dose: Not Given Diphenhydramine HCl (Benadryl) 50 mg IVP HS PRN PRN Reason: Insomnia Last Admin: 11/27/16 01:00 Dose: 50 mg Ergocalciferol (Drisdol 50,000 Intl Units Cap) 1 cap PO Q7D [facility] Last Admin: 12/03/16 17:06 Dose: Not Given Ferrous Sulfate (Feosol) 324 mg PO TID [facility] Last Admin: 12/03/16 17:07 Dose: Not Given Fluconazole (Diflucan) 200 mg PO DAILY [facility] PRN Reason: Protocol Stop: 12/12/16 10:01 Last Admin: 12/03/16 09:27 Dose: Not Given Home Med (Home Med) 1 unit PO Q12H PRN PRN Reason: Inflammation Last Admin: 10/18/16 11:03 Dose: 1 unit Hydralazine HCl (Apresoline) 10 mg IVP Q4H PRN PRN Reason: Systolic Blood Pressure Hydromorphone HCl (Dilaudid) 1 mg IVP Q1H PRN PRN Reason: Pain, moderate (4-7) Last Admin: 12/05/16 14:20 Dose: 1 mg Levetiracetam (Keppra 500mg Ivpb) 500 mg in 100 mls @ 400 mls/hr IV Q12 [facility] Last Admin: 12/05/16 09:41 Dose: 400 mls/hr Valproate Sodium 250 mg/ (Sodium Chloride) 102.5 mls @ 100 mls/hr IVPB Q12 [facility] Last Admin: 12/05/16 09:43 Dose: 100 mls/hr Micafungin Sodium 100 mg/ (Sodium Chloride) 100 mls @ 100 mls/hr IV DAILY [facility] PRN Reason: Protocol Stop: 12/13/16 15:01 Last Admin: 12/05/16 09:42 Dose: 100 mls/hr Multivitamins/Vitamin C 10 ml/Chromium/Copper/Manganese/Zinc 1 ml/ Amino Acids/ Electrolytes/Dextrose 2,011 mls @ 83 mls/hr IV .Q24H [facility] Stop: 12/07/16 17:59 Last Admin: 12/04/16 18:10 Dose: 83 mls/hr Magnesium Hydroxide (Milk Of Magnesia) 30 ml PO DAILY PRN PRN Reason: skin irritation Last Admin: 12/02/16 14:09 Dose: 30 ml Multi-Ingredient Ointment (Hydrophor Oint) 0 gm TOP Q6H PRN PRN Reason: Dry lip Pantoprazole Sodium (Protonix Inj) 40 mg IVP DAILY [facility] Last Admin: 12/05/16 09:41 Dose: 40 mg Propranolol HCl (Inderal La) 120 mg PO DAILY [facility] Last Admin: 12/03/16 09:27 Dose: Not Given Sucralfate (Carafate Oral Susp) 1 gm PO BID [facility] Last Admin: 12/03/16 17:06 Dose: Not Given - Labs Labs: 12/05/16 06:00 12/05/16 06:00 PT 13.2 Seconds (9.9-11.8) H 12/05/16 06:00 INR 1.22 (0.93-1.08) H 12/05/16 06:00 APTT 35.2 Seconds (23.7-30.8) H 12/05/16 06:00 - Constitutional Appears: Cachectic, Chronically Ill - Eye Exam Eye Exam: Normal appearance Additional comments: sluggish reaction to light - ENT Exam ENT Exam: Mucous Membranes Moist - Respiratory Exam Respiratory Exam: Decreased Breath Sounds - Cardiovascular Exam Cardiovascular Exam: REGULAR RHYTHM, +S1, +S2 - GI/Abdominal Exam GI & Abdominal Exam: Soft, Diminished Bowel Sounds - Extremities Exam Additional comments: bilateral lower extremity edema - Skin Skin Exam: Dry, Pallor Assessment and Plan - Assessment and Plan (Free Text) Assessment: 61 year old female with metastatic colon cancer admitted with sepsis, pancytopenia,fungemia,GI bleed,colon resection s/p colostomy, parietal /occipital infarcts. Mother and daughter Toña at bedside. Patient is moaning, actively seizing. It was explained that patients condition is deteriorating quickly. Resuscitation status discussed. Mother agreed to DNR/DNI in the presence of RN and Dr Markel Navarro . Hospice services offered again. Mother agreed to meet with golf club we[employer]. Plan: DNR/DNI
--- NOTE | 2016-12-05 16:47 | PN ---
SUBJECTIVE: The patient is seen lying in bed. She is lethargic, arousable. She has minimal p.o. intake. PHYSICAL EXAMINATION: GENERAL: Elderly lady lying in bed. VITAL SIGNS: Blood pressure 134/80, heart rate 98, respiratory rate 28, temperature 97.8. HEENT: Normocephalic, atraumatic, positive pallor. NECK: Supple. No JVD. LUNGS: Bilateral equal air entry, bilateral rhonchi. CARDIAC: S1, S2, regular rate and rhythm. No murmur. No rubs. ABDOMEN: Obese, distended, soft, positive colostomy. EXTREMITIES: 2+pitting edema of the lower extremities. INTAKE AND OUTPUT: ? LABORATORY DATA: WBC 16, hemoglobin 9, hematocrit 28, platelets 112. Sodium 137, potassium 3.9, chloride 107, CO2 27, BUN 19, creatinine 0.3, glucose 107, calcium 7.4, magnesium 2.0. phosphorous 2.8, albumin 1.9. CURRENT MEDICATIONS: Benadryl, Carafate, Diflucan, Dilaudid, vitamin D, Feosol, propranolol, Keppra, micafungin, milk of magnesia, *------*. ASSESSMENT: 1. Hypokalemia, resolved. 2. Stage IV colon cancer. 3. Resolved acute kidney injury. 4. Status post seizure. 5. Thrombocytopenia. PLAN: 1. Continue current TPN formula*. 2. Monitor potassium and magnesium closely. 3. Continue antifungals. 4. Continue seizure medications. 5. Prognosis poor. Adele Griffin MD MTDD
--- NOTE | 2016-12-05 17:18 | PN ---
DATE: 12/05/2016 REASON FOR CONSULTATION: Status post rapid response CVA, seizure, tachycardia and metastatic colon cancer. SUBJECTIVE: The patient is lying flat in the bed, very lethargic, does not respond to verbally stimuli but barely responsive to the painful stimuli and opens the eyes. OBJECTIVE: GENERAL: Lying flat, not in apparent distress, lethargic. VITAL SIGNS: Temperature afebrile, heart rate 98, blood pressure 124/80. HEENT: PERRLA, intact. NECK: Supple. No carotid bruit or thyromegaly. CHEST: Clear to auscultation. HEART: S1 and S2, regular. ABDOMEN: Soft. EXTREMITIES: Clubbing and cyanosis negative. LABORATORY DATA: Blood workup as follows: WBC 16, hemoglobin 9, hematocrit 28.3, platelet count 112. Chemistries shows sodium 137, potassium 3.9, chloride 107, carbon dioxide 27, anion gap of 17, BUN 19, creatinine 0.3, total protein 4.4, albumin 1.9. 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 RECOMMENDATIONS: Continue supportive care. The patient is terminally ill. We will sign off. I am glad to follow p.r.n. Thank you Dr. Hendricks for providing the opportunity taking care of Arthur Rehman. Sherrell Busby MD
[2016-12-06] MEDS: Aluminum Hydroxide/Magnesium 30 ML, DiphenhydrAMINE 75 MG, Lidocaine 2% Viscous 30 ML PO SCH ×4 (00:57→18:20)
--- NOTE | 2016-12-06 00:57 | PN ---
SUBJECTIVE: The patient was seen earlier this morning in room 360, bed #2, in overall poor condition. PHYSICAL EXAMINATION: VITAL SIGNS: Temperature is 98, blood pressure is 130/80, respiratory rate 20, heart rate of 101. HEENT: Unremarkable. NECK: Supple. LUNGS: Decreased breath sounds. HEART: Normal S1 and S2. ABDOMEN: Soft. LABORATORY DATA: Reveals a white count of 16,000, hemoglobin of 9, platelets of 111. Chemistries are noted and the alkaline phosphatase is 396. Urinalysis is noted and Isis Hernandez's note is reviewed and states the family has agreed to hospice meeting. ASSESSMENT AND PLAN: This is a 61-year-old female with end-stage, stage IV colon cancer with metastasis to the brain, bone and liver and Susy albicans fungemia with a Port-A-Cath removed. We will discontinue Diflucan and discontinue Mycamine, and the patient has seizure-like activity from the LAUNCH CHECK OUT lesion and also may be from medication toxicity. At this point, supportive care, hospice would make this patient most comfortable. We will discontinue Diflucan and discontinue Mycamine. Lang Akhtar MD
[2016-12-06] MEDS: HYDROmorphone 1 mg/ml ISec IVP PRN ×10 (01:36→20:33)
[2016-12-06 07:17] LABS: INR 1.19 (0.93-1.08); PARTIAL THROMBOPLASTIN TIME 34.8 Seconds (23.7-30.8); PROTHROMBIN TIME 12.8 Seconds (9.9-11.8)
[2016-12-06 07:47] LABS: ALB/GLOB RATIO 0.7 (1.1-1.8); ALBUMIN 1.9 g/dL (3.0-4.8); ALT/SGPT 21 U/L (7-56); AST/SGOT 18 U/L (15-39); BLOOD UREA NITROGEN 17 mg/dL (7-21); CALCIUM 7.8 mg/dL (8.4-10.5); GFR AFRICAN-AMERICAN > 60; GFR NON-AFRICAN AMERICAN > 60; MAGNESIUM 1.7 mg/dL (1.7-2.2)
--- NOTE | 2016-12-06 08:49 | CP.PCM.PN ---
<Dereje London - Last Filed: 12/06/16 08:51> Subjective - Date & Time of Evaluation Date of Evaluation: 12/06/16 Time of Evaluation: 08:46 - Subjective Subjective: General Surgery Dr. Mccracken Patient seen and examined at bedside this morning. No acute events overnight. Patient was awake and moaning this morning, but was unable vocalize and recognizable speech. She was unable to answer any questions. Objective - Vital Signs/Intake and Output Vital Signs (last 24 hours): Temp Pulse Resp BP Pulse Ox 97.6 F 112 H 22 140/85 100 12/06/16 08:33 12/06/16 08:33 12/06/16 08:33 12/06/16 08:33 12/06/16 08:33 Intake and Output: 12/06/16 12/06/16 06:59 18:59 Intake Total 0 0 Output Total 1300 400 Balance -1300 -400 - Medications Medications: Current Medications Acetaminophen (Tylenol 650 Mg Supp) 650 mg RC Q4H PRN PRN Reason: Fever >100.4 F Last Admin: 11/01/16 21:18 Dose: 650 mg Collagenase (Santyl) 0 gm TOP DAILY [facility] Last Admin: 12/05/16 09:49 Dose: 1 applic Al Hydrox/Mg Hydrox/Simethicone 30 ml/Diphenhydramine HCl 75 mg/Lidocaine 30 ml 0 ml PO QID [facility] Last Admin: 12/06/16 00:57 Dose: Not Given Diphenhydramine HCl (Benadryl) 50 mg IVP HS PRN PRN Reason: Insomnia Last Admin: 11/27/16 01:00 Dose: 50 mg Ergocalciferol (Drisdol 50,000 Intl Units Cap) 1 cap PO Q7D [facility] Last Admin: 12/03/16 17:06 Dose: Not Given Ferrous Sulfate (Feosol) 324 mg PO TID [facility] Last Admin: 12/03/16 17:07 Dose: Not Given Home Med (Home Med) 1 unit PO Q12H PRN PRN Reason: Inflammation Last Admin: 10/18/16 11:03 Dose: 1 unit Hydralazine HCl (Apresoline) 10 mg IVP Q4H PRN PRN Reason: Systolic Blood Pressure Hydromorphone HCl (Dilaudid) 1 mg IVP Q1H PRN PRN Reason: Pain, moderate (4-7) Last Admin: 12/06/16 07:42 Dose: 1 mg Levetiracetam (Keppra 500mg Ivpb) 500 mg in 100 mls @ 400 mls/hr IV Q12 [facility] Last Admin: 12/05/16 21:17 Dose: 400 mls/hr Valproate Sodium 250 mg/ (Sodium Chloride) 102.5 mls @ 100 mls/hr IVPB Q12 [facility] Last Admin: 12/05/16 21:17 Dose: 100 mls/hr Multivitamins/Vitamin C 10 ml/Chromium/Copper/Manganese/Zinc 1 ml/ Amino Acids/ Electrolytes/Dextrose 2,011 mls @ 83 mls/hr IV .Q24H [facility] Stop: 12/07/16 17:59 Last Admin: 12/05/16 17:03 Dose: 83 mls/hr Magnesium Hydroxide (Milk Of Magnesia) 30 ml PO DAILY PRN PRN Reason: skin irritation Last Admin: 12/02/16 14:09 Dose: 30 ml Multi-Ingredient Ointment (Hydrophor Oint) 0 gm TOP Q6H PRN PRN Reason: Dry lip Pantoprazole Sodium (Protonix Inj) 40 mg IVP DAILY [facility] Last Admin: 12/05/16 09:41 Dose: 40 mg Propranolol HCl (Inderal La) 120 mg PO DAILY [facility] Last Admin: 12/03/16 09:27 Dose: Not Given Sucralfate (Carafate Oral Susp) 1 gm PO BID [facility] Last Admin: 12/03/16 17:06 Dose: Not Given - Labs Labs: 12/05/16 06:00 12/06/16 06:30 PT 12.8 Seconds (9.9-11.8) H 12/06/16 06:30 INR 1.19 (0.93-1.08) H 12/06/16 06:30 APTT 34.8 Seconds (23.7-30.8) H 12/06/16 06:30 - Constitutional Appears: Confused, Chronically Ill - Respiratory Exam Respiratory Exam: NORMAL BREATHING PATTERN. absent: Accessory Muscle Use, Respiratory Distress - Cardiovascular Exam Cardiovascular Exam: REGULAR RHYTHM - Neurological Exam Neurological Exam: Alert, Altered, Awake - Skin Skin Exam: Dry, Normal Color, Warm Assessment and Plan - Assessment and Plan (Free Text) Assessment: 61 F Colon CA and Sacral decub w/ worsening mental status POD19 s/p Marquita's Plan: Continue with current medical management Monitor H+H, AM labs pending Monitor electrolytes, AM labs pending Apply milk of magnesia on excoriation at the colostomy site, keep dry and change colostomy bag prn Monitor surgical midline incision and ostomy sites for signs of infection, inflammation, drainage or dehiscence. No need for surgical intervention at this time. Patient is now DNR/DNI Will discuss with Dr. Kaykay London PGY 1 <Yoan Mccracken - Last Filed: 12/12/16 23:17> Objective - Vital Signs/Intake and Output Vital Signs (last 24 hours): Temp Pulse Resp BP Pulse Ox 98.5 F 160 H 20 157/90 H 97 12/12/16 06:00 12/12/16 06:00 12/12/16 06:00 12/12/16 06:00 12/12/16 06:00 Intake and Output: 12/12/16 12/13/16 18:59 06:59 Intake Total 0 Output Total 300 Balance -300 - Medications Medications: Current Medications Acetaminophen (Tylenol 650 Mg Supp) 650 mg RC Q4H PRN PRN Reason: Fever >100.4 F Last Admin: 11/01/16 21:18 Dose: 650 mg Albuterol/Ipratropium (Duoneb 3 Mg/0.5 Mg (3 Ml) Ud) 3 ml IH [id number] PRN PRN Reason: Cough and congestion Last Admin: 12/12/16 22:10 Dose: 3 ml Collagenase (Santyl) 0 gm TOP DAILY [facility] Last Admin: 12/12/16 09:16 Dose: 1 applic Diphenhydramine HCl (Benadryl) 50 mg IVP Q12H PRN PRN Reason: Allergy symptoms Levetiracetam 1,000 mg/ Sodium (Chloride) 110 mls @ 460 mls/hr IV Q12 [facility] Last Admin: 12/12/16 21:50 Dose: 460 mls/hr Valproate Sodium 500 mg/ (Sodium Chloride) 105 mls @ 100 mls/hr IVPB Q12 [facility] Last Admin: 12/12/16 21:50 Dose: 100 mls/hr Hydromorphone HCl (Dilaudid-Hp 1 Mg/Ml Environmental Services Technician) 25 mls @ 1.5 mls/hr IV .[id number] [facility] Lorazepam (Ativan) 2 mg IVP Q6 PRN; Protocol PRN Reason: Seizure activity Last Admin: 12/12/16 18:22 Dose: 2 mg Magnesium Hydroxide (Milk Of Magnesia) 30 ml PO DAILY PRN PRN Reason: skin irritation Last Admin: 12/02/16 14:09 Dose: 30 ml Multi-Ingredient Ointment (Hydrophor Oint) 0 gm TOP Q6H PRN PRN Reason: Dry lip Scopolamine (Transderm-Scop) 1 patch TD Q3D [facility] Last Admin: 12/12/16 09:49 Dose: 1 patch - Labs Labs: 12/12/16 07:45 12/12/16 07:45 PT 12.7 Seconds (9.9-11.8) H 12/07/16 06:30 INR 1.18 (0.93-1.08) H 12/07/16 06:30 APTT 37.1 Seconds (23.7-30.8) H 12/07/16 06:30 Assessment and Plan - Assessment and Plan (Free Text) Plan: Patient was seen and examined by me. I agree with assessment and plan as per resident's note.
[2016-12-06 09:25] LABS: BASO # 0.01 K/mm3 (0.0-2.0); BASO % 0.1 % (0.0-3.0); EOS % 0.1 % (1.5-5.0); GRAN # 13.84 (1.4-6.5); GRAN % 87.6 % (50.0-68.0); HEMOGLOBIN 9.2 gm/dL (12.0-16.0); LYMPH # 0.6 (1.2-3.4); LYMPH % 3.9 % (22.0-35.0); MEAN CELL VOLUME 94.7 fL (80.0-105.0); MEAN CORPUSCULAR HEMOGLOBIN 30.4 pg (25.0-35.0); MEAN CORPUSCULAR HGB CONC 32.1 g/dl (31.0-37.0); MEAN PLATELET VOLUME 11.2 fl (7.0-11.0); MONO # 1.3 (0.1-0.6); MONO % 8.3 % (1.0-6.0); PLATELET COUNT 92 10^3/uL (120.0-450.0); RBC 3.03 10^6/uL (3.5-6.1); RED CELL DISTRIBUTION WIDTH 15.9 % (11.5-14.5); WHITE BLOOD COUNT 15.8 10^3/ul (4.5-11.0)
[2016-12-06] MEDS: levETIRAcetam 500mg IVPB 500 MG/100 ML BAG IV SCH (09:28)
--- NOTE | 2016-12-06 09:34 | CP.PCM.PN ---
Addendum entered and electronically signed by Cassie Arcos DO 12/06/16 13:04 : hb stable at 9.2 Original Note: <Cassie Arcos - Last Filed: 12/06/16 11:25> Subjective - Date & Time of Evaluation Date of Evaluation: 12/06/16 Time of Evaluation: 09:32 - Subjective Subjective: PGY-[address] Hendricks Twitching of R arm and R leg seen for the past 3 minutes. Ativan ordered stat. No tongue biting. Pt on minor and has ostomy. Pt is moaning. Objective - Vital Signs/Intake and Output Vital Signs (last 24 hours): Temp Pulse Resp BP Pulse Ox 97.6 F 112 H 22 140/85 100 12/06/16 08:33 12/06/16 08:33 12/06/16 08:33 12/06/16 08:33 12/06/16 08:33 Intake and Output: 12/06/16 12/06/16 06:59 18:59 Intake Total 0 0 Output Total 1300 400 Balance -1300 -400 - Medications Medications: Current Medications Acetaminophen (Tylenol 650 Mg Supp) 650 mg RC Q4H PRN PRN Reason: Fever >100.4 F Last Admin: 11/01/16 21:18 Dose: 650 mg Collagenase (Santyl) 0 gm TOP DAILY [facility] Last Admin: 12/05/16 09:49 Dose: 1 applic Al Hydrox/Mg Hydrox/Simethicone 30 ml/Diphenhydramine HCl 75 mg/Lidocaine 30 ml 0 ml PO QID [facility] Last Admin: 12/06/16 00:57 Dose: Not Given Diphenhydramine HCl (Benadryl) 50 mg IVP HS PRN PRN Reason: Insomnia Last Admin: 11/27/16 01:00 Dose: 50 mg Ergocalciferol (Drisdol 50,000 Intl Units Cap) 1 cap PO Q7D [facility] Last Admin: 12/03/16 17:06 Dose: Not Given Ferrous Sulfate (Feosol) 324 mg PO TID [facility] Last Admin: 12/03/16 17:07 Dose: Not Given Home Med (Home Med) 1 unit PO Q12H PRN PRN Reason: Inflammation Last Admin: 10/18/16 11:03 Dose: 1 unit Hydralazine HCl (Apresoline) 10 mg IVP Q4H PRN PRN Reason: Systolic Blood Pressure Hydromorphone HCl (Dilaudid) 1 mg IVP Q1H PRN PRN Reason: Pain, moderate (4-7) Last Admin: 12/06/16 07:42 Dose: 1 mg Levetiracetam (Keppra 500mg Ivpb) 500 mg in 100 mls @ 400 mls/hr IV Q12 [facility] Last Admin: 12/05/16 21:17 Dose: 400 mls/hr Valproate Sodium 250 mg/ (Sodium Chloride) 102.5 mls @ 100 mls/hr IVPB Q12 [facility] Last Admin: 12/05/16 21:17 Dose: 100 mls/hr Multivitamins/Vitamin C 10 ml/Chromium/Copper/Manganese/Zinc 1 ml/ Amino Acids/ Electrolytes/Dextrose 2,011 mls @ 83 mls/hr IV .Q24H [facility] Stop: 12/07/16 17:59 Last Admin: 12/05/16 17:03 Dose: 83 mls/hr Magnesium Hydroxide (Milk Of Magnesia) 30 ml PO DAILY PRN PRN Reason: skin irritation Last Admin: 12/02/16 14:09 Dose: 30 ml Multi-Ingredient Ointment (Hydrophor Oint) 0 gm TOP Q6H PRN PRN Reason: Dry lip Pantoprazole Sodium (Protonix Inj) 40 mg IVP DAILY [facility] Last Admin: 12/05/16 09:41 Dose: 40 mg Propranolol HCl (Inderal La) 120 mg PO DAILY [facility] Last Admin: 12/03/16 09:27 Dose: Not Given Sucralfate (Carafate Oral Susp) 1 gm PO BID [facility] Last Admin: 12/03/16 17:06 Dose: Not Given - Labs Labs: 12/06/16 06:30 12/06/16 06:30 PT 12.8 Seconds (9.9-11.8) H 12/06/16 06:30 INR 1.19 (0.93-1.08) H 12/06/16 06:30 APTT 34.8 Seconds (23.7-30.8) H 12/06/16 06:30 - Constitutional Appears: Cachectic, Chronically Ill - Head Exam Head Exam: ATRAUMATIC, NORMAL INSPECTION, NORMOCEPHALIC - Eye Exam Eye Exam: absent: PERRL (R eye, sluggishly reactive to light; L pupil, dilate when shine lights to it), Scleral icterus - ENT Exam ENT Exam: Mucous Membranes Moist Additional comments: no tongue biting - Neck Exam Additional comments: supple - Respiratory Exam Respiratory Exam: Decreased Breath Sounds, Clear to Ausculation Bilateral. absent: Rales, Rhonchi, Wheezes - Cardiovascular Exam Cardiovascular Exam: Tachycardia, REGULAR RHYTHM, +S1, +S2 - GI/Abdominal Exam GI & Abdominal Exam: Soft, Hypoactive Bowel Sounds Additional comments: bilous stool in ostomy bag. incision line no drainage - Extremities Exam Additional comments: R arm and foot twitching at 2 Hz - Skin Skin Exam: Dry, Warm Additional comments: moaning Assessment and Plan - Assessment and Plan (Free Text) Plan: 61 F admitted on 10/09/16 with sepsis post chemotherapy with 2 cycles of FOLFOX based chemotherapy with Avastin. The hospital course was complicated by (1) seizure due to new stroke vs brain mets, (2) anemia due to GI bleeding requiring transfusion and (3) fungemia/bactermia with Port removal (11/14/16) which pt is 2 weeks of IV daptomycin/mycamine, then PO antifungal, then back on IV mycamine due to no PO intake. Pt has zero oral intake incluing meds. Plan: Pt is now DNR/DNI. [facility] in Palliative and Dr. Hendricks have met for [address] Hendricks talked to family on phone for 45 mins on 12/04/16. Pt is DNR/DNI. Now, family need to decide whether to go on hospice/comfort care vs palliative care. Will follow up re: (?) peg placement, (?) fci placement, (?) hospice. Hospice met with pt's mom yesterday. Mom said "Let me talk to my children." Break through seizure - Afebrile, no electrolyte abnormality - ativan stat - notified neuro team Altered Mental Status, only arousable by touch, no PO intake Stroke, ischemic with hemorrhagic conversion, Enlarged occipital-parietal infarct (+) brain mets Seizure due to ischemic stroke vs mets vs meds - D/C all antibiotics - Continue with keppra and valproic acid - Neuro checks - May start ASA pending PO status - seizure precaution Imaging - Repeat MRI 12/03/16: No change in size of left occipital hemorrhage and small thin left subdural hematoma (subacute) An increase in size of acute infarct in L posterior temporal lobe occipital and parietal lobes. Increased white matter edema in R occipital lobe without a diffusion abnormality. (could be metastatic lesions) Vasogenic edema in the right cerebellar hemisphere secondary to the enhancing metastatic lesion identified previously. - MRI/MRA : R cerebral hemisphere - 0.2cm enhancing mass with moderate local edema L occipital lobe - 3.9cm probably subacute infarct vs glioma Bilateral frontal, right temporociipital, brain stem - could be metastes - CT head no contrast (11/27) with encephalomalacia, ct scan reveal hypodensities right cerebellum and bilateral occipital, which were there before compared to CT of the head from 10/11/16. - EEG: b/l slowing waves, no epileptic form wave - 2 WHEEL ADJUSTER (11/27) for blurry vision turned blank stair, which later turned tonic- clonic movements. During WHEEL ADJUSTER, she was responsive to only painful stimuli. Left sided facial droop was experienced. Pt was trasnferred to ICU, now downgraded to remote telemetry. - WHEEL ADJUSTER (11/23) Pt was hypotensive and AMS on 11/23 WHEEL ADJUSTER due to narcotic side effect. Hb ? Severe anemia, s/p 30 u pRBC Thrombocytopenia s/p plt transfusion Neutropenia - resolved Neuropathic Pain - Dilaudud 1q1 PRN - Hold FLAT OPTICAL ELEMENT MAKER for now. Hold Durgesic - Per Dr Hendricks, do not add more pain meds now. Maintain at current pain regimen. Upper GI bleed s/p EGD with push enteroscopy <-- EGD <-- bleeding scan x 2 ( negative) - No source of bleeding at examined duodedeum and jejunum - Propranolol 120 - Consider intraoperative enteroscopy or outpatient capsule endoscopy. 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 end-colostomy Susy esophagitis Pathology: Poorly differentiated colorectal adenocarcinoma metasiasis to bowel wall and serosa and one resection margin. 3/5 lymph nodes positive for metastasis - Microstaellite stable (08/13/16). Has ruled out rollins syndrome Sepsis due to C. albicans Fungemia, probably from port-a-cath Bacteremia with methicillin-resistant coagulase negative staph in repeated cx Gram negative bacilli in urine with minor - minor removed (11/24) Nose culture coagulase neg staphylococcus (11/24) - continue mycamine (day 14 since port removal) - Then switch to PO diflucan for another 2 weeks for total of 4 week antifungal tx - Now back on IV mycamine due to no PO - Off daptomycin for bactermeia r/o picc, r/o contamination (/4 bottles) - repeated urine cx negative - observe off abx - Hold valganciclovir, no CMV on esophagus ulcer - L picc was placed on 10/31/16 which was not replaced due to coagulopathy and bleeding. Severe hypokalemia Hypernatermia Severe malnutrition, albumin 2.0 Hypomandnesemia Dysphagia - No PO intake - replete as needed - Ensure and PO supplements on hold - tpn Edema - lasix Prophylasix - SCD, protonix IV Consult: Wound care Palliative Cardio - Dr. Busby - sign off Heme Onc - Dr. Wilburn, [place] GI - Dr. Null Nephro - Dr. Griffin/Todd YOUNG - Dr. Avalos Surgery - Dr. Jeffers for wound Surgery - Dr. Mccracken for colostomy ICU - Dr. Centeno IR - Dr. Hackett Opthalomoly = Dr. Greenberg Pain - Dr. Amador Neuro - Dr. Moya s/r/d/w Dr. Hendricks <Kedar Hendricks P - Last Filed: 12/09/16 12:20> Objective - Vital Signs/Intake and Output Vital Signs (last 24 hours): Temp Pulse Resp BP Pulse Ox 98.9 F 115 H 17 126/76 100 12/09/16 07:49 12/09/16 10:00 12/09/16 07:49 12/09/16 07:49 12/09/16 07:49 Intake and Output: 12/09/16 12/09/16 06:59 18:59 Intake Total 1562 0 Output Total 650 Balance 1562 -650 - Medications Medications: Current Medications Acetaminophen (Tylenol 650 Mg Supp) 650 mg RC Q4H PRN PRN Reason: Fever >100.4 F Last Admin: 11/01/16 21:18 Dose: 650 mg Collagenase (Santyl) 0 gm TOP DAILY [facility] Last Admin: 12/09/16 09:03 Dose: 1 applic Al Hydrox/Mg Hydrox/Simethicone 30 ml/Diphenhydramine HCl 75 mg/Lidocaine 30 ml 0 ml PO QID [facility] Last Admin: 12/09/16 09:03 Dose: Not Given Hydralazine HCl (Apresoline) 10 mg IVP Q4H PRN PRN Reason: Systolic Blood Pressure Levetiracetam 1,000 mg/ Sodium (Chloride) 110 mls @ 460 mls/hr IV Q12 [facility] Last Admin: 12/09/16 09:01 Dose: 460 mls/hr Valproate Sodium 500 mg/ (Sodium Chloride) 105 mls @ 100 mls/hr IVPB Q12 [facility] Last Admin: 12/09/16 09:02 Dose: 100 mls/hr Hydromorphone HCl (Dilaudid-Hp 1 Mg/Ml Certified Orthotic Fitter) 25 mls @ 0 mls/hr IV PRN PRN; Protocol; Per Protocol PRN Reason: FLAT OPTICAL ELEMENT MAKER PER MD ORDER Last Admin: 12/08/16 20:12 Dose: 25 mls/hr Multivitamins/Vitamin C 10 ml/Chromium/Copper/Manganese/Zinc 1 ml/ Amino Acids/ Electrolytes/Dextrose 2,011 mls @ 83 mls/hr IV .Q24H [facility] Stop: 12/11/16 17:59 Last Admin: 12/08/16 17:00 Dose: 83 mls/hr Lorazepam (Ativan) 2 mg IVP Q6 PRN; Protocol PRN Reason: Seizure activity Last Admin: 12/09/16 01:44 Dose: 2 mg Magnesium Hydroxide (Milk Of Magnesia) 30 ml PO DAILY PRN PRN Reason: skin irritation Last Admin: 12/02/16 14:09 Dose: 30 ml Multi-Ingredient Ointment (Hydrophor Oint) 0 gm TOP Q6H PRN PRN Reason: Dry lip Pantoprazole Sodium (Protonix Inj) 40 mg IVP DAILY [facility] Last Admin: 12/09/16 09:02 Dose: 40 mg - Labs Labs: 12/08/16 06:00 12/08/16 06:00 PT 12.7 Seconds (9.9-11.8) H 12/07/16 06:30 INR 1.18 (0.93-1.08) H 12/07/16 06:30 APTT 37.1 Seconds (23.7-30.8) H 12/07/16 06:30 Attending/Attestation - Attestation I have personally seen and examined this patient.: Yes I have fully participated in the care of the patient.: Yes I have reviewed all pertinent clinical information, including history, physical exam and plan: Yes
[2016-12-06] MEDS: Valproate 250 MG in Sodium Chloride 0.9% 100 ML IVPB SCH ×2 (10:12→21:52)
[2016-12-06] MEDS: Collagenase 250 Units/gm Ointment(30 gm) TOP SCH (10:17)
--- NOTE | 2016-12-06 12:01 | PN ---
DATE: 12/06/2016 SUBJECTIVE: The patient is seen lying in bed. She is lethargic. She just received pain medication. Family member is at the bedside. PHYSICAL EXAMINATION GENERAL: Elderly lady lying in bed. VITAL SIGNS: Blood pressure 140/85, heart rate 112, respiratory rate 22, temperature 97.7. HEENT: Normocephalic, atraumatic. Positive pallor. NECK: Supple. No JVD. LUNGS: Bilateral equal expansion. Bilateral rhonchi. Poor inspiratory effort. CARDIAC: S1, S2, regular rate and rhythm, no murmurs, no rubs. ABDOMEN: Obese, distended, soft, positive colostomy, bowel sounds present. EXTREMITIES: 3+ pitting edema of the lower extremities. INTAKE AND OUTPUT: 1562/1300. LABORATORY DATA: WBC 15.8, hemoglobin 9, hematocrit 29, platelets 92. Sodium 140, potassium 3.7, chloride 108, CO2 is 29, BUN 17, creatinine 0.3, glucose 108, calcium 7.8, magnesium 1.7, AST 18, ALT 21, albumin 1.9. Urine culture, gram negative rohan from 11/24. Coagulase negative staph in nose. CURRENT MEDICATIONS: Apresoline p.r.n., Benadryl, Carafate, Dilaudid, Drisdol , Feosol, Inderal 120 daily, Keppra, , Protonix, Tylenol, valproate. ASSESSMENT: 1. Stage IV colon cancer with bone mets. 2. Status post palliative colostomy. 3. Severe malnutrition. 4. Mild hypokalemia. 5. Hypomagnesemia. 6. Status post seizure, CT showing multiple acute infarcts. 7. Anemia, thrombocytopenia. PLAN: 1. Continue current total parenteral nutrition. 2. Monitor daily electrolytes. 3. Continue antibiotics as per infectious disease recommendations. 4. Pain management. 5. Comfort care. Adele Griffin MD
--- NOTE | 2016-12-06 12:25 | CP.PCM.PN ---
Subjective - Date & Time of Evaluation Date of Evaluation: 12/06/16 Time of Evaluation: 14:00 - Subjective Subjective: Moaning, responds to painful stimuli. Seizing Objective - Vital Signs/Intake and Output Vital Signs (last 24 hours): Temp Pulse Resp BP Pulse Ox 97.6 F 112 H 22 140/85 100 12/06/16 08:33 12/06/16 08:33 12/06/16 08:33 12/06/16 08:33 12/06/16 08:33 Intake and Output: 12/06/16 12/06/16 06:59 18:59 Intake Total 0 0 Output Total 1300 400 Balance -1300 -400 - Medications Medications: Current Medications Acetaminophen (Tylenol 650 Mg Supp) 650 mg RC Q4H PRN PRN Reason: Fever >100.4 F Last Admin: 11/01/16 21:18 Dose: 650 mg Collagenase (Santyl) 0 gm TOP DAILY [facility] Last Admin: 12/06/16 10:17 Dose: 1 applic Al Hydrox/Mg Hydrox/Simethicone 30 ml/Diphenhydramine HCl 75 mg/Lidocaine 30 ml 0 ml PO QID [facility] Last Admin: 12/06/16 10:17 Dose: Not Given Diphenhydramine HCl (Benadryl) 50 mg IVP HS PRN PRN Reason: Insomnia Last Admin: 11/27/16 01:00 Dose: 50 mg Ergocalciferol (Drisdol 50,000 Intl Units Cap) 1 cap PO Q7D [facility] Last Admin: 12/03/16 17:06 Dose: Not Given Ferrous Sulfate (Feosol) 324 mg PO TID [facility] Last Admin: 12/03/16 17:07 Dose: Not Given Home Med (Home Med) 1 unit PO Q12H PRN PRN Reason: Inflammation Last Admin: 10/18/16 11:03 Dose: 1 unit Hydralazine HCl (Apresoline) 10 mg IVP Q4H PRN PRN Reason: Systolic Blood Pressure Hydromorphone HCl (Dilaudid) 1 mg IVP Q1H PRN PRN Reason: Pain, moderate (4-7) Last Admin: 12/06/16 11:04 Dose: 1 mg Levetiracetam (Keppra 500mg Ivpb) 500 mg in 100 mls @ 400 mls/hr IV Q12 [facility] Last Admin: 12/06/16 09:28 Dose: 400 mls/hr Valproate Sodium 250 mg/ (Sodium Chloride) 102.5 mls @ 100 mls/hr IVPB Q12 [facility] Last Admin: 12/06/16 10:12 Dose: 100 mls/hr Multivitamins/Vitamin C 10 ml/Chromium/Copper/Manganese/Zinc 1 ml/ Amino Acids/ Electrolytes/Dextrose 2,011 mls @ 83 mls/hr IV .Q24H [facility] Stop: 12/07/16 17:59 Last Admin: 12/05/16 17:03 Dose: 83 mls/hr Magnesium Hydroxide (Milk Of Magnesia) 30 ml PO DAILY PRN PRN Reason: skin irritation Last Admin: 12/02/16 14:09 Dose: 30 ml Multi-Ingredient Ointment (Hydrophor Oint) 0 gm TOP Q6H PRN PRN Reason: Dry lip Pantoprazole Sodium (Protonix Inj) 40 mg IVP DAILY [facility] Last Admin: 12/06/16 10:17 Dose: 40 mg Propranolol HCl (Inderal La) 120 mg PO DAILY [facility] Last Admin: 12/03/16 09:27 Dose: Not Given Sucralfate (Carafate Oral Susp) 1 gm PO BID [facility] Last Admin: 12/03/16 17:06 Dose: Not Given - Labs Labs: 12/06/16 06:30 12/06/16 06:30 PT 12.8 Seconds (9.9-11.8) H 12/06/16 06:30 INR 1.19 (0.93-1.08) H 12/06/16 06:30 APTT 34.8 Seconds (23.7-30.8) H 12/06/16 06:30 - Constitutional Appears: Cachectic, Chronically Ill - Respiratory Exam Respiratory Exam: Decreased Breath Sounds, NORMAL BREATHING PATTERN - Cardiovascular Exam Cardiovascular Exam: +S1, +S2 - GI/Abdominal Exam GI & Abdominal Exam: Soft, Diminished Bowel Sounds - Extremities Exam Additional comments: lower extremities edematous - Skin Skin Exam: Dry, Pallor Additional comments: sacral ulcer Assessment and Plan - Assessment and Plan (Free Text) Assessment: 61 year old female addicted with metastatic colon cancer, sepsis, fungemia, enteritis, sacral ulcer,GI bleed, colon resection with colostomy, cerebral infarcts, seizures. The patient is moaning. She has twitching of upper of extremities R>L. Patient' s sister Toña at bedside.Continuos analgesic infusion offered, sister wants her mother to make this decision. I met with patients mother. She is not ready to transition to hospice. Continuous IV pain management via pump offered. Mother will consider. The patient is now resting quietly after receiving Ativan IVP. Psychosocial support given Plan: Continue supportive care
--- NOTE | 2016-12-06 12:57 | CP.PCM.PN ---
<Laura Navarro - Last Filed: 12/06/16 13:13> Subjective - Date & Time of Evaluation Date of Evaluation: 12/06/16 Time of Evaluation: 11:20 - Subjective Subjective: [id number] note [address] Dr Moya. Patient still moaning, twitching extremities, not following any commands, and is very diaphoretic. Objective - Vital Signs/Intake and Output Vital Signs (last 24 hours): Temp Pulse Resp BP Pulse Ox 97.6 F 112 H 22 140/85 100 12/06/16 08:33 12/06/16 08:33 12/06/16 08:33 12/06/16 08:33 12/06/16 08:33 Intake and Output: 12/06/16 12/06/16 06:59 18:59 Intake Total 0 0 Output Total 1300 400 Balance -1300 -400 - Medications Medications: Current Medications Acetaminophen (Tylenol 650 Mg Supp) 650 mg RC Q4H PRN PRN Reason: Fever >100.4 F Last Admin: 11/01/16 21:18 Dose: 650 mg Collagenase (Santyl) 0 gm TOP DAILY [facility] Last Admin: 12/06/16 10:17 Dose: 1 applic Al Hydrox/Mg Hydrox/Simethicone 30 ml/Diphenhydramine HCl 75 mg/Lidocaine 30 ml 0 ml PO QID [facility] Last Admin: 12/06/16 10:17 Dose: Not Given Diphenhydramine HCl (Benadryl) 50 mg IVP HS PRN PRN Reason: Insomnia Last Admin: 11/27/16 01:00 Dose: 50 mg Ergocalciferol (Drisdol 50,000 Intl Units Cap) 1 cap PO Q7D [facility] Last Admin: 12/03/16 17:06 Dose: Not Given Ferrous Sulfate (Feosol) 324 mg PO TID [facility] Last Admin: 12/03/16 17:07 Dose: Not Given Home Med (Home Med) 1 unit PO Q12H PRN PRN Reason: Inflammation Last Admin: 10/18/16 11:03 Dose: 1 unit Hydralazine HCl (Apresoline) 10 mg IVP Q4H PRN PRN Reason: Systolic Blood Pressure Hydromorphone HCl (Dilaudid) 1 mg IVP Q1H PRN PRN Reason: Pain, moderate (4-7) Last Admin: 12/06/16 11:04 Dose: 1 mg Levetiracetam (Keppra 500mg Ivpb) 500 mg in 100 mls @ 400 mls/hr IV Q12 [facility] Last Admin: 12/06/16 09:28 Dose: 400 mls/hr Valproate Sodium 250 mg/ (Sodium Chloride) 102.5 mls @ 100 mls/hr IVPB Q12 [facility] Last Admin: 12/06/16 10:12 Dose: 100 mls/hr Multivitamins/Vitamin C 10 ml/Chromium/Copper/Manganese/Zinc 1 ml/ Amino Acids/ Electrolytes/Dextrose 2,011 mls @ 83 mls/hr IV .Q24H [facility] Stop: 12/07/16 17:59 Last Admin: 12/05/16 17:03 Dose: 83 mls/hr Magnesium Hydroxide (Milk Of Magnesia) 30 ml PO DAILY PRN PRN Reason: skin irritation Last Admin: 12/02/16 14:09 Dose: 30 ml Multi-Ingredient Ointment (Hydrophor Oint) 0 gm TOP Q6H PRN PRN Reason: Dry lip Pantoprazole Sodium (Protonix Inj) 40 mg IVP DAILY [facility] Last Admin: 12/06/16 10:17 Dose: 40 mg Propranolol HCl (Inderal La) 120 mg PO DAILY [facility] Last Admin: 12/03/16 09:27 Dose: Not Given Sucralfate (Carafate Oral Susp) 1 gm PO BID [facility] Last Admin: 12/03/16 17:06 Dose: Not Given - Labs Labs: 12/06/16 06:30 12/06/16 06:30 PT 12.8 Seconds (9.9-11.8) H 12/06/16 06:30 INR 1.19 (0.93-1.08) H 12/06/16 06:30 APTT 34.8 Seconds (23.7-30.8) H 12/06/16 06:30 - Constitutional Appears: In Acute Distress, Older Than Stated Age, Confused, Cachectic, Chronically Ill - Head Exam Head Exam: ATRAUMATIC, NORMAL INSPECTION, NORMOCEPHALIC - Eye Exam Eye Exam: Scleral icterus - ENT Exam ENT Exam: Mucous Membranes Dry - Neck Exam Neck Exam: Normal Inspection - Respiratory Exam Respiratory Exam: Decreased Breath Sounds. absent: Rhonchi, Wheezes, Respiratory Distress, Stridor - Cardiovascular Exam Cardiovascular Exam: Tachycardia, +S1, +S2 - GI/Abdominal Exam GI & Abdominal Exam: Soft, Normal Bowel Sounds - Neurological Exam Additional comments: pupils equal, reactive to light, but sluggish + corneal reflex GCS of 7 Unresponsive to verbal commands, withdraws with pain, doesn't follow commands No gross movement of her extremities. Reflexes are sluggish throughout - Psychiatric Exam Psychiatric exam: Anxious - Skin Skin Exam: Diaphoretic Assessment and Plan - Assessment and Plan (Free Text) Assessment: Patient is a 61 y/o with pmh of stage 4 colon ca metastatic to the bone s/p chemo with folfox 6, htn whom initially presented on 10/09 with persistent diarrhea, and was found to have severe sepsis 2nd to radiation induced enteritis , with multiple organ dysfunction, patient is s/p Hartmanns procedure for SBO. 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 No new episodes of muscle twitches reported, however patient is still very comatose, minimally responsive with deep chest rubs. Repeat MRI 12/03/16: No change in size of left occipital hemorrhage and small thin left subdural hematoma. The subdural is more conspicuous and bright on T1 weighted images consistent with evolution into a subacute phase. There is an increase in the size of the acute infarct involving the left posterior temporal lobe occipital and parietal lobes. There is no change in size of the focal hemorrhage in the left occipital lobe which measures 2.3 cm in diameter.There is increased white matter edema in the right occipital lobe without a diffusion abnormality. This could be secondary to the metastatic lesions seen in the right cerebellar hemisphere adjacent to the tentorium. There were no enhancing lesions seen in the right occipital lobe on the previous study. There is vasogenic edema in the right cerebellar hemisphere secondary to the enhancing metastatic lesion identified previously. Plan: - Will increase keppra to 750 mg bid - please consider hospice care. - Patient with poor prognosis - We will sign off of patient, please re-consult prn - Thank you for consulting Dr Moya. Patient seen, examined, and case discussed with Dr Moya. <Ravi Moya - Last Filed: 12/06/16 14:01> Objective - Vital Signs/Intake and Output Vital Signs (last 24 hours): Temp Pulse Resp BP Pulse Ox 97.6 F 112 H 22 140/85 100 12/06/16 08:33 12/06/16 08:33 12/06/16 08:33 12/06/16 08:33 12/06/16 08:33 Intake and Output: 12/06/16 12/06/16 06:59 18:59 Intake Total 0 0 Output Total 1300 400 Balance -1300 -400 - Medications Medications: Current Medications Acetaminophen (Tylenol 650 Mg Supp) 650 mg RC Q4H PRN PRN Reason: Fever >100.4 F Last Admin: 11/01/16 21:18 Dose: 650 mg Collagenase (Santyl) 0 gm TOP DAILY [facility] Last Admin: 12/06/16 10:17 Dose: 1 applic Al Hydrox/Mg Hydrox/Simethicone 30 ml/Diphenhydramine HCl 75 mg/Lidocaine 30 ml 0 ml PO QID [facility] Last Admin: 12/06/16 13:08 Dose: Not Given Ergocalciferol (Drisdol 50,000 Intl Units Cap) 1 cap PO Q7D [facility] Last Admin: 12/03/16 17:06 Dose: Not Given Ferrous Sulfate (Feosol) 324 mg PO TID [facility] Last Admin: 12/03/16 17:07 Dose: Not Given Home Med (Home Med) 1 unit PO Q12H PRN PRN Reason: Inflammation Last Admin: 10/18/16 11:03 Dose: 1 unit Hydralazine HCl (Apresoline) 10 mg IVP Q4H PRN PRN Reason: Systolic Blood Pressure Hydromorphone HCl (Dilaudid) 1 mg IVP Q1H PRN PRN Reason: Pain, moderate (4-7) Last Admin: 12/06/16 11:04 Dose: 1 mg Valproate Sodium 250 mg/ (Sodium Chloride) 102.5 mls @ 100 mls/hr IVPB Q12 [facility] Last Admin: 12/06/16 10:12 Dose: 100 mls/hr Multivitamins/Vitamin C 10 ml/Chromium/Copper/Manganese/Zinc 1 ml/ Amino Acids/ Electrolytes/Dextrose 2,011 mls @ 83 mls/hr IV .Q24H [facility] Stop: 12/07/16 17:59 Last Admin: 12/05/16 17:03 Dose: 83 mls/hr Levetiracetam 750 mg/ Sodium (Chloride) 107.5 mls @ 460 mls/hr IV Q12 [facility] Lorazepam (Ativan) 0.5 mg IVP Q6H PRN; Protocol PRN Reason: Seizure activity Magnesium Hydroxide (Milk Of Magnesia) 30 ml PO DAILY PRN PRN Reason: skin irritation Last Admin: 12/02/16 14:09 Dose: 30 ml Multi-Ingredient Ointment (Hydrophor Oint) 0 gm TOP Q6H PRN PRN Reason: Dry lip Pantoprazole Sodium (Protonix Inj) 40 mg IVP DAILY [facility] Last Admin: 12/06/16 10:17 Dose: 40 mg Propranolol HCl (Inderal La) 120 mg PO DAILY [facility] Last Admin: 12/03/16 09:27 Dose: Not Given Sucralfate (Carafate Oral Susp) 1 gm PO BID [facility] Last Admin: 12/03/16 17:06 Dose: Not Given - Labs Labs: 12/06/16 06:30 12/06/16 06:30 PT 12.8 Seconds (9.9-11.8) H 12/06/16 06:30 INR 1.19 (0.93-1.08) H 12/06/16 06:30 APTT 34.8 Seconds (23.7-30.8) H 12/06/16 06:30 Assessment and Plan - Assessment and Plan (Free Text) Plan: c/w supprtive care
--- NOTE | 2016-12-06 13:25 | CP.PCM.PN ---
<Yoana Osei - Last Filed: 12/06/16 13:24> Subjective - Date & Time of Evaluation Date of Evaluation: 12/06/16 Time of Evaluation: 09:00 - Subjective Subjective: S&E at bedside, sister sitting by bedside, patient responsive to stimuli,moans to touch, no acute overnight events, has twitching. Objective - Vital Signs/Intake and Output Vital Signs (last 24 hours): Temp Pulse Resp BP Pulse Ox 97.6 F 112 H 22 140/85 100 12/06/16 08:33 12/06/16 08:33 12/06/16 08:33 12/06/16 08:33 12/06/16 08:33 Intake and Output: 12/06/16 12/06/16 06:59 18:59 Intake Total 0 0 Output Total 1300 400 Balance -1300 -400 - Medications Medications: Current Medications Acetaminophen (Tylenol 650 Mg Supp) 650 mg RC Q4H PRN PRN Reason: Fever >100.4 F Last Admin: 11/01/16 21:18 Dose: 650 mg Collagenase (Santyl) 0 gm TOP DAILY [facility] Last Admin: 12/06/16 10:17 Dose: 1 applic Al Hydrox/Mg Hydrox/Simethicone 30 ml/Diphenhydramine HCl 75 mg/Lidocaine 30 ml 0 ml PO QID [facility] Last Admin: 12/06/16 13:08 Dose: Not Given Ergocalciferol (Drisdol 50,000 Intl Units Cap) 1 cap PO Q7D [facility] Last Admin: 12/03/16 17:06 Dose: Not Given Ferrous Sulfate (Feosol) 324 mg PO TID [facility] Last Admin: 12/03/16 17:07 Dose: Not Given Home Med (Home Med) 1 unit PO Q12H PRN PRN Reason: Inflammation Last Admin: 10/18/16 11:03 Dose: 1 unit Hydralazine HCl (Apresoline) 10 mg IVP Q4H PRN PRN Reason: Systolic Blood Pressure Hydromorphone HCl (Dilaudid) 1 mg IVP Q1H PRN PRN Reason: Pain, moderate (4-7) Last Admin: 12/06/16 11:04 Dose: 1 mg Valproate Sodium 250 mg/ (Sodium Chloride) 102.5 mls @ 100 mls/hr IVPB Q12 [facility] Last Admin: 12/06/16 10:12 Dose: 100 mls/hr Multivitamins/Vitamin C 10 ml/Chromium/Copper/Manganese/Zinc 1 ml/ Amino Acids/ Electrolytes/Dextrose 2,011 mls @ 83 mls/hr IV .Q24H [facility] Stop: 12/07/16 17:59 Last Admin: 12/05/16 17:03 Dose: 83 mls/hr Levetiracetam 750 mg/ Sodium (Chloride) 107.5 mls @ 460 mls/hr IV Q12 [facility] Lorazepam (Ativan) 0.5 mg IVP Q6H PRN; Protocol PRN Reason: Seizure activity Magnesium Hydroxide (Milk Of Magnesia) 30 ml PO DAILY PRN PRN Reason: skin irritation Last Admin: 12/02/16 14:09 Dose: 30 ml Multi-Ingredient Ointment (Hydrophor Oint) 0 gm TOP Q6H PRN PRN Reason: Dry lip Pantoprazole Sodium (Protonix Inj) 40 mg IVP DAILY [facility] Last Admin: 12/06/16 10:17 Dose: 40 mg Propranolol HCl (Inderal La) 120 mg PO DAILY [facility] Last Admin: 12/03/16 09:27 Dose: Not Given Sucralfate (Carafate Oral Susp) 1 gm PO BID [facility] Last Admin: 12/03/16 17:06 Dose: Not Given - Labs Labs: 12/06/16 06:30 12/06/16 06:30 PT 12.8 Seconds (9.9-11.8) H 12/06/16 06:30 INR 1.19 (0.93-1.08) H 12/06/16 06:30 APTT 34.8 Seconds (23.7-30.8) H 12/06/16 06:30 - Constitutional Appears: Chronically Ill - Head Exam Head Exam: NORMOCEPHALIC - Eye Exam Eye Exam: absent: Scleral icterus - Neck Exam Neck Exam: Normal Inspection - Respiratory Exam Respiratory Exam: NORMAL BREATHING PATTERN. absent: Respiratory Distress - Cardiovascular Exam Cardiovascular Exam: +S1, +S2 - GI/Abdominal Exam GI & Abdominal Exam: Soft, Hypoactive Bowel Sounds Additional comments: (+) colostomy - Extremities Exam Extremities Exam: Pedal Edema. absent: Calf Tenderness - Neurological Exam Neurological Exam: Altered - Skin Skin Exam: Dry, Warm Assessment and Plan - Assessment and Plan (Free Text) Assessment: ASSESSMENT: Altered Mental Status, s/p FU MRI, suggestive CVA, ? Brain mona New Onset Seizures Metastatic Stage IV Colon Cancer S/P Exploratory laparotomy with lysis of adhesions and repair of small bowel enterotomy and partial sigmoidectomy with end colostomy GI Bleed, S/P push enteroscopy: negative for bleed Anemia with multiple blood transfusions Elevated LFT, mainly alk phos, abdominal US done, 6/ (+) sludge, no GB stones, CBD 5.0 cm, maybe medication induced, improving Fungemia PLAN: NPO, on TPN On Keppra/Valproate Sodium PO meds on hold PPI DVT prophylaxsis, scd/teds monitor cbc, electrolytes seizure precautions as per oncology, neurology,palliative care DNR/DNI Seen and discussed with Dr. Null. <Tong Null V - Last Filed: 12/06/16 23:39> Objective - Vital Signs/Intake and Output Vital Signs (last 24 hours): Temp Pulse Resp BP Pulse Ox 98 F 112 H 19 145/90 100 12/06/16 16:00 12/06/16 18:00 12/06/16 16:00 12/06/16 18:00 12/06/16 16:00 Intake and Output: 12/06/16 12/07/16 18:59 06:59 Intake Total 0 Output Total 1400 175 Balance -1400 -175 - Medications Medications: Current Medications Acetaminophen (Tylenol 650 Mg Supp) 650 mg RC Q4H PRN PRN Reason: Fever >100.4 F Last Admin: 11/01/16 21:18 Dose: 650 mg Collagenase (Santyl) 0 gm TOP DAILY [facility] Last Admin: 12/06/16 10:17 Dose: 1 applic Al Hydrox/Mg Hydrox/Simethicone 30 ml/Diphenhydramine HCl 75 mg/Lidocaine 30 ml 0 ml PO QID [facility] Last Admin: 12/06/16 18:20 Dose: Not Given Ergocalciferol (Drisdol 50,000 Intl Units Cap) 1 cap PO Q7D [facility] Last Admin: 12/03/16 17:06 Dose: Not Given Hydralazine HCl (Apresoline) 10 mg IVP Q4H PRN PRN Reason: Systolic Blood Pressure Multivitamins/Vitamin C 10 ml/Chromium/Copper/Manganese/Zinc 1 ml/ Amino Acids/ Electrolytes/Dextrose 2,011 mls @ 83 mls/hr IV .Q24H [facility] Stop: 12/07/16 17:59 Last Admin: 12/06/16 18:19 Dose: 83 mls/hr Hydromorphone HCl (Dilaudid-Hp 1 Mg/Ml [employer]) 25 mls @ 0 mls/hr IV PRN PRN; Protocol; Per Protocol PRN Reason: [employer] PER MD ORDER Last Admin: 12/06/16 22:19 Dose: 0.5 mls/hr Levetiracetam 1,000 mg/ Sodium (Chloride) 110 mls @ 460 mls/hr IV Q12 [facility] Valproate Sodium 500 mg/ (Sodium Chloride) 105 mls @ 100 mls/hr IVPB Q12 [facility] Lorazepam (Ativan) 2 mg IVP Q6 PRN; Protocol PRN Reason: Seizure activity Magnesium Hydroxide (Milk Of Magnesia) 30 ml PO DAILY PRN PRN Reason: skin irritation Last Admin: 12/02/16 14:09 Dose: 30 ml Multi-Ingredient Ointment (Hydrophor Oint) 0 gm TOP Q6H PRN PRN Reason: Dry lip Pantoprazole Sodium (Protonix Inj) 40 mg IVP DAILY [facility] Last Admin: 12/06/16 10:17 Dose: 40 mg Propranolol HCl (Inderal La) 120 mg PO DAILY [facility] Last Admin: 12/03/16 09:27 Dose: Not Given Sucralfate (Carafate Oral Susp) 1 gm PO BID [facility] Last Admin: 12/03/16 17:06 Dose: Not Given - Labs Labs: 12/06/16 06:30 12/06/16 06:30 PT 12.8 Seconds (9.9-11.8) H 12/06/16 06:30 INR 1.19 (0.93-1.08) H 12/06/16 06:30 APTT 34.8 Seconds (23.7-30.8) H 12/06/16 06:30 Attending/Attestation - Attestation I have personally seen and examined this patient.: Yes I have fully participated in the care of the patient.: Yes I have reviewed all pertinent clinical information, including history, physical exam and plan: Yes Notes (Text): t
--- NOTE | 2016-12-06 14:08 | PN ---
DATE: 12/06/2016 SUBJECTIVE: The patient is in bed, in no acute distress. However, chronically ill, debilitated, endstage, poorly responsive. PHYSICAL EXAMINATION: VITAL SIGNS: Temperature of 98, blood pressure 161/90, respiratory rate of 20, and heart rate of 115. HEENT: Unremarkable. NECK: Supple. HEART: Normal S1 and S2. LUNGS: Decreased breath sounds. ABDOMEN: Soft. LABORATORY DATA: Reveals a white count of 15,800, hemoglobin of 9, and platelets of 92. Chemistry reveals a BUN of 17, creatinine of 0.3, and urinalysis is noted. ASSESSMENT AND PLAN: A 61-year-old female with stage IV colon cancer with metastasis to the brain, bone, liver. The patient had nirmal albicans fungemia, Port-A-Cath removal. At this point, the patient is terminal. Recommend hospice setting. Discontinue Mycamine and Diflucan that may be contributing to the liver and with alkaline phosphatase and LFT elevations. We will follow. Overall, prognosis is quite poor. Lang Akhtar MD
[2016-12-06] MEDS ORDERED: HYDROmorphone 1 mg/ml PCA 25 ML IV PRN (20:40)
[2016-12-07] MEDS: Aluminum Hydroxide/Magnesium 30 ML, DiphenhydrAMINE 75 MG, Lidocaine 2% Viscous 30 ML PO SCH ×5 (00:02→21:35)
[2016-12-07 07:31] LABS: INR 1.18 (0.93-1.08); PARTIAL THROMBOPLASTIN TIME 37.1 Seconds (23.7-30.8); PROTHROMBIN TIME 12.7 Seconds (9.9-11.8)
[2016-12-07 08:03] LABS: BASO # 0.01 K/mm3 (0.0-2.0); BASO % 0.1 % (0.0-3.0); EOS % 0.2 % (1.5-5.0); GRAN # 9.39 (1.4-6.5); GRAN % 82.4 % (50.0-68.0); LYMPH # 0.6 (1.2-3.4); LYMPH % 5.4 % (22.0-35.0); MEAN CELL VOLUME 93.3 fL (80.0-105.0); MEAN CORPUSCULAR HEMOGLOBIN 29.7 pg (25.0-35.0); MEAN CORPUSCULAR HGB CONC 31.9 g/dl (31.0-37.0); MEAN PLATELET VOLUME 10.7 fl (7.0-11.0); MONO # 1.4 (0.1-0.6); MONO % 11.9 % (1.0-6.0); PLATELET COUNT 110 10^3/uL (120.0-450.0); RBC 2.69 10^6/uL (3.5-6.1); WHITE BLOOD COUNT 11.4 10^3/ul (4.5-11.0)
[2016-12-07 08:15] LABS: ALB/GLOB RATIO 0.7 (1.1-1.8); ALBUMIN 1.8 g/dL (3.0-4.8); ALT/SGPT 22 U/L (7-56); AST/SGOT 15 U/L (15-39); BLOOD UREA NITROGEN 18 mg/dL (7-21); CALCIUM 7.9 mg/dL (8.4-10.5); GFR AFRICAN-AMERICAN > 60; GFR NON-AFRICAN AMERICAN > 60; MAGNESIUM 1.6 mg/dL (1.7-2.2)
--- NOTE | 2016-12-07 09:22 | CP.PCM.PN ---
<Dereje London - Last Filed: 12/07/16 09:44> Subjective - Date & Time of Evaluation Date of Evaluation: 12/07/16 Time of Evaluation: 09:16 - Subjective Subjective: General Surgery Dr. Mccracken Patient seen and examined this morning with sister at bedside. No acute events overnight. Patient opens eyes to verbal stimuli but is still very lethargic. Patient does not verbalize any recognizable speech, just moans. Objective - Vital Signs/Intake and Output Vital Signs (last 24 hours): Temp Pulse Resp BP Pulse Ox 98.8 F 106 H 18 155/82 H 100 12/07/16 08:07 12/07/16 02:00 12/07/16 08:07 12/07/16 08:07 12/07/16 00:00 Intake and Output: 12/07/16 12/07/16 06:59 18:59 Intake Total 2270 Output Total 175 Balance 2095 - Medications Medications: Current Medications Acetaminophen (Tylenol 650 Mg Supp) 650 mg RC Q4H PRN PRN Reason: Fever >100.4 F Last Admin: 11/01/16 21:18 Dose: 650 mg Collagenase (Santyl) 0 gm TOP DAILY [facility] Last Admin: 12/06/16 10:17 Dose: 1 applic Al Hydrox/Mg Hydrox/Simethicone 30 ml/Diphenhydramine HCl 75 mg/Lidocaine 30 ml 0 ml PO QID [facility] Last Admin: 12/07/16 00:02 Dose: Not Given Ergocalciferol (Drisdol 50,000 Intl Units Cap) 1 cap PO Q7D [facility] Last Admin: 12/03/16 17:06 Dose: Not Given Hydralazine HCl (Apresoline) 10 mg IVP Q4H PRN PRN Reason: Systolic Blood Pressure Multivitamins/Vitamin C 10 ml/Chromium/Copper/Manganese/Zinc 1 ml/ Amino Acids/ Electrolytes/Dextrose 2,011 mls @ 83 mls/hr IV .Q24H [facility] Stop: 12/07/16 17:59 Last Admin: 12/06/16 18:19 Dose: 83 mls/hr Hydromorphone HCl (Dilaudid-Hp 1 Mg/Ml Career Development Associate) 25 mls @ 0 mls/hr IV PRN PRN; Protocol; Per Protocol PRN Reason: SAMPLE CUTTER PER MD ORDER Last Admin: 12/06/16 22:19 Dose: 0.5 mls/hr Levetiracetam 1,000 mg/ Sodium (Chloride) 110 mls @ 460 mls/hr IV Q12 [facility] Valproate Sodium 500 mg/ (Sodium Chloride) 105 mls @ 100 mls/hr IVPB Q12 [facility] Lorazepam (Ativan) 2 mg IVP Q6 PRN; Protocol PRN Reason: Seizure activity Magnesium Hydroxide (Milk Of Magnesia) 30 ml PO DAILY PRN PRN Reason: skin irritation Last Admin: 12/02/16 14:09 Dose: 30 ml Multi-Ingredient Ointment (Hydrophor Oint) 0 gm TOP Q6H PRN PRN Reason: Dry lip Pantoprazole Sodium (Protonix Inj) 40 mg IVP DAILY [facility] Last Admin: 12/06/16 10:17 Dose: 40 mg Propranolol HCl (Inderal La) 120 mg PO DAILY [facility] Last Admin: 12/03/16 09:27 Dose: Not Given Sucralfate (Carafate Oral Susp) 1 gm PO BID [facility] Last Admin: 12/03/16 17:06 Dose: Not Given - Labs Labs: 12/07/16 06:30 12/07/16 06:30 PT 12.7 Seconds (9.9-11.8) H 12/07/16 06:30 INR 1.18 (0.93-1.08) H 12/07/16 06:30 APTT 37.1 Seconds (23.7-30.8) H 12/07/16 06:30 - Constitutional Appears: No Acute Distress - Eye Exam Eye Exam: EOMI - Respiratory Exam Respiratory Exam: NORMAL BREATHING PATTERN. absent: Accessory Muscle Use, Respiratory Distress - Cardiovascular Exam Cardiovascular Exam: REGULAR RHYTHM - GI/Abdominal Exam GI & Abdominal Exam: Soft. absent: Distended, Guarding, Rigid Additional comments: Ostomy draining non-melaonic brown fecal material. Midline surgical incision healing appropriately, no signs of infection, inflammation, erythema or drainage. - Skin Skin Exam: Dry, Normal Color, Warm Additional comments: Excoriation around ostomy is improving. Erythema has decreased drastically. Assessment and Plan - Assessment and Plan (Free Text) Assessment: 61 F Colon CA and Sacral decub w/ worsening mental status POD20 s/p Marquita's Plan: Continue with current medical management Monitor H+H, AM labs pending Monitor electrolytes, AM labs pending Apply milk of magnesia on excoriation at the colostomy site, keep dry and change colostomy bag prn Monitor surgical midline incision and ostomy sites for signs of infection, inflammation, drainage or dehiscence. No need for surgical intervention at this time. Will discuss with Dr. Kaykay London PGY 1 <Yoan Mccracken - Last Filed: 12/12/16 23:18> Objective - Vital Signs/Intake and Output Vital Signs (last 24 hours): Temp Pulse Resp BP Pulse Ox 98.5 F 160 H 20 157/90 H 97 12/12/16 06:00 12/12/16 06:00 12/12/16 06:00 12/12/16 06:00 12/12/16 06:00 Intake and Output: 12/12/16 12/13/16 18:59 06:59 Intake Total 0 Output Total 300 Balance -300 - Medications Medications: Current Medications Acetaminophen (Tylenol 650 Mg Supp) 650 mg RC Q4H PRN PRN Reason: Fever >100.4 F Last Admin: 11/01/16 21:18 Dose: 650 mg Albuterol/Ipratropium (Duoneb 3 Mg/0.5 Mg (3 Ml) Ud) 3 ml IH [id number] PRN PRN Reason: Cough and congestion Last Admin: 12/12/16 22:10 Dose: 3 ml Collagenase (Santyl) 0 gm TOP DAILY [facility] Last Admin: 12/12/16 09:16 Dose: 1 applic Diphenhydramine HCl (Benadryl) 50 mg IVP Q12H PRN PRN Reason: Allergy symptoms Levetiracetam 1,000 mg/ Sodium (Chloride) 110 mls @ 460 mls/hr IV Q12 [facility] Last Admin: 12/12/16 21:50 Dose: 460 mls/hr Valproate Sodium 500 mg/ (Sodium Chloride) 105 mls @ 100 mls/hr IVPB Q12 [facility] Last Admin: 12/12/16 21:50 Dose: 100 mls/hr Hydromorphone HCl (Dilaudid-Hp 1 Mg/Ml Career Development Associate) 25 mls @ 1.5 mls/hr IV .[id number] [facility] Lorazepam (Ativan) 2 mg IVP Q6 PRN; Protocol PRN Reason: Seizure activity Last Admin: 12/12/16 18:22 Dose: 2 mg Magnesium Hydroxide (Milk Of Magnesia) 30 ml PO DAILY PRN PRN Reason: skin irritation Last Admin: 12/02/16 14:09 Dose: 30 ml Multi-Ingredient Ointment (Hydrophor Oint) 0 gm TOP Q6H PRN PRN Reason: Dry lip Scopolamine (Transderm-Scop) 1 patch TD Q3D [facility] Last Admin: 12/12/16 09:49 Dose: 1 patch - Labs Labs: 12/12/16 07:45 12/12/16 07:45 PT 12.7 Seconds (9.9-11.8) H 12/07/16 06:30 INR 1.18 (0.93-1.08) H 12/07/16 06:30 APTT 37.1 Seconds (23.7-30.8) H 12/07/16 06:30 Assessment and Plan - Assessment and Plan (Free Text) Plan: Patient was seen and examined by me. I agree with assessment and plan as per resident's note.
--- NOTE | 2016-12-07 10:17 | CP.PCM.PN ---
<Laura Navarro - Last Filed: 12/07/16 10:21> Subjective - Date & Time of Evaluation Date of Evaluation: 12/07/16 Time of Evaluation: 09:30 - Subjective Subjective: PGY-2 Neurology progress note for Dr Moya. Patient still very lethargic and moaning to touch. Patient not oriented to person, time and place, but opens her eyes with stimuli. No extremities twitching noted at this time. Objective - Vital Signs/Intake and Output Vital Signs (last 24 hours): Temp Pulse Resp BP Pulse Ox 98.8 F 106 H 18 155/82 H 100 12/07/16 08:07 12/07/16 02:00 12/07/16 08:07 12/07/16 08:07 12/07/16 00:00 Intake and Output: 12/07/16 12/07/16 06:59 18:59 Intake Total 2270 Output Total 175 Balance 2095 - Medications Medications: Current Medications Acetaminophen (Tylenol 650 Mg Supp) 650 mg RC Q4H PRN PRN Reason: Fever >100.4 F Last Admin: 11/01/16 21:18 Dose: 650 mg Collagenase (Santyl) 0 gm TOP DAILY [facility] Last Admin: 12/06/16 10:17 Dose: 1 applic Al Hydrox/Mg Hydrox/Simethicone 30 ml/Diphenhydramine HCl 75 mg/Lidocaine 30 ml 0 ml PO QID [facility] Last Admin: 12/07/16 00:02 Dose: Not Given Ergocalciferol (Drisdol 50,000 Intl Units Cap) 1 cap PO Q7D [facility] Last Admin: 12/03/16 17:06 Dose: Not Given Hydralazine HCl (Apresoline) 10 mg IVP Q4H PRN PRN Reason: Systolic Blood Pressure Multivitamins/Vitamin C 10 ml/Chromium/Copper/Manganese/Zinc 1 ml/ Amino Acids/ Electrolytes/Dextrose 2,011 mls @ 83 mls/hr IV .Q24H [facility] Stop: 12/07/16 17:59 Last Admin: 12/06/16 18:19 Dose: 83 mls/hr Hydromorphone HCl (Dilaudid-Hp 1 Mg/Ml Zipper Setter Lockstitch) 25 mls @ 0 mls/hr IV PRN PRN; Protocol; Per Protocol PRN Reason: PULP BLEACHER PER MD ORDER Last Admin: 12/06/16 22:19 Dose: 0.5 mls/hr Levetiracetam 1,000 mg/ Sodium (Chloride) 110 mls @ 460 mls/hr IV Q12 [facility] Valproate Sodium 500 mg/ (Sodium Chloride) 105 mls @ 100 mls/hr IVPB Q12 [facility] Lorazepam (Ativan) 2 mg IVP Q6 PRN; Protocol PRN Reason: Seizure activity Magnesium Hydroxide (Milk Of Magnesia) 30 ml PO DAILY PRN PRN Reason: skin irritation Last Admin: 12/02/16 14:09 Dose: 30 ml Multi-Ingredient Ointment (Hydrophor Oint) 0 gm TOP Q6H PRN PRN Reason: Dry lip Pantoprazole Sodium (Protonix Inj) 40 mg IVP DAILY [facility] Last Admin: 12/06/16 10:17 Dose: 40 mg Propranolol HCl (Inderal La) 120 mg PO DAILY [facility] Last Admin: 12/03/16 09:27 Dose: Not Given Sucralfate (Carafate Oral Susp) 1 gm PO BID [facility] Last Admin: 12/03/16 17:06 Dose: Not Given - Labs Labs: 12/07/16 06:30 12/07/16 06:30 PT 12.7 Seconds (9.9-11.8) H 12/07/16 06:30 INR 1.18 (0.93-1.08) H 12/07/16 06:30 APTT 37.1 Seconds (23.7-30.8) H 12/07/16 06:30 - Constitutional Appears: No Acute Distress, Older Than Stated Age, Confused, Cachectic, Chronically Ill - Head Exam Head Exam: ATRAUMATIC, NORMAL INSPECTION, NORMOCEPHALIC - Eye Exam Eye Exam: EOMI, Normal appearance. absent: Scleral icterus Additional comments: Equal and reactive to light, but sluggish. - ENT Exam ENT Exam: Mucous Membranes Dry - Neck Exam Neck Exam: Normal Inspection - Respiratory Exam Respiratory Exam: Decreased Breath Sounds. absent: Rhonchi, Wheezes, Respiratory Distress, Stridor - Cardiovascular Exam Cardiovascular Exam: Tachycardia, +S1, +S2 - GI/Abdominal Exam GI & Abdominal Exam: Soft, Tenderness, Normal Bowel Sounds Additional comments: ostomy in place - Extremities Exam Extremities Exam: Pedal Edema - Neurological Exam Additional comments: GCS of 7 Moves the upper extremities grossly, no movement of lower extremities observed, Follows mild commands. Appears very frail, and weak Upward going toes b/l, sluggish reflexes throughout Unable to assess gait due to mental status - Psychiatric Exam Psychiatric exam: Depressed - Skin Skin Exam: Diaphoretic Assessment and Plan - Assessment and Plan (Free Text) Assessment: Patient is a 61 y/o with pmh of stage 4 colon ca metastatic to the bone s/p chemo with folfox 6, htn whom initially presented on 10/09 with persistent diarrhea, and was found to have severe sepsis 2nd to radiation induced enteritis , with multiple organ dysfunction, patient is s/p Hartmanns procedure for SBO. Patient had seizure like episode likely 2nd to occipital-lobe hemorrhage, subdural hematoma, occipital-temporal lobe infarct, and metastatic disease to the brain. Patient with very poor prognosis. Plan: - Keppra was increased to 1000 mg q12, and valproate 500 mg q12 last night - Continue with palliative care. Patient seen, examined and discussed with Dr Moya. <Ravi Moya - Last Filed: 12/07/16 14:14> Objective - Vital Signs/Intake and Output Vital Signs (last 24 hours): Temp Pulse Resp BP Pulse Ox 98.8 F 106 H 18 155/82 H 100 12/07/16 08:07 12/07/16 02:00 12/07/16 08:07 12/07/16 08:07 12/07/16 00:00 Intake and Output: 12/07/16 12/07/16 06:59 18:59 Intake Total 2270 Output Total 175 1400 Balance 2095 -1400 - Medications Medications: Current Medications Acetaminophen (Tylenol 650 Mg Supp) 650 mg RC Q4H PRN PRN Reason: Fever >100.4 F Last Admin: 11/01/16 21:18 Dose: 650 mg Collagenase (Santyl) 0 gm TOP DAILY [facility] Last Admin: 12/06/16 10:17 Dose: 1 applic Al Hydrox/Mg Hydrox/Simethicone 30 ml/Diphenhydramine HCl 75 mg/Lidocaine 30 ml 0 ml PO QID [facility] Last Admin: 12/07/16 10:58 Dose: Not Given Ergocalciferol (Drisdol 50,000 Intl Units Cap) 1 cap PO Q7D [facility] Last Admin: 12/03/16 17:06 Dose: Not Given Hydralazine HCl (Apresoline) 10 mg IVP Q4H PRN PRN Reason: Systolic Blood Pressure Multivitamins/Vitamin C 10 ml/Chromium/Copper/Manganese/Zinc 1 ml/ Amino Acids/ Electrolytes/Dextrose 2,011 mls @ 83 mls/hr IV .Q24H [facility] Stop: 12/07/16 17:59 Last Admin: 12/06/16 18:19 Dose: 83 mls/hr Levetiracetam 1,000 mg/ Sodium (Chloride) 110 mls @ 460 mls/hr IV Q12 [facility] Last Admin: 12/07/16 10:55 Dose: 460 mls/hr Valproate Sodium 500 mg/ (Sodium Chloride) 105 mls @ 100 mls/hr IVPB Q12 [facility] Last Admin: 12/07/16 10:55 Dose: 100 mls/hr Hydromorphone HCl (Dilaudid-Hp 1 Mg/Ml Zipper Setter Lockstitch) 25 mls @ 0 mls/hr IV PRN PRN; Protocol; Per Protocol PRN Reason: PULP BLEACHER PER MD ORDER Lorazepam (Ativan) 2 mg IVP Q6 PRN; Protocol PRN Reason: Seizure activity Magnesium Hydroxide (Milk Of Magnesia) 30 ml PO DAILY PRN PRN Reason: skin irritation Last Admin: 12/02/16 14:09 Dose: 30 ml Multi-Ingredient Ointment (Hydrophor Oint) 0 gm TOP Q6H PRN PRN Reason: Dry lip Pantoprazole Sodium (Protonix Inj) 40 mg IVP DAILY [facility] Last Admin: 12/07/16 10:58 Dose: 40 mg Propranolol HCl (Inderal La) 120 mg PO DAILY [facility] Last Admin: 12/03/16 09:27 Dose: Not Given Sucralfate (Carafate Oral Susp) 1 gm PO BID [facility] Last Admin: 12/03/16 17:06 Dose: Not Given - Labs Labs: 12/07/16 06:30 12/07/16 06:30 PT 12.7 Seconds (9.9-11.8) H 12/07/16 06:30 INR 1.18 (0.93-1.08) H 12/07/16 06:30 APTT 37.1 Seconds (23.7-30.8) H 12/07/16 06:30 Attending/Attestation - Attestation I have personally seen and examined this patient.: Yes I have fully participated in the care of the patient.: Yes I have reviewed all pertinent clinical information, including history, physical exam and plan: Yes
[2016-12-07] MEDS: Valproate 500 MG in Sodium Chloride 0.9% 100 ML IVPB SCH ×2 (10:55→21:34)
[2016-12-07] MEDS: levETIRAcetam 1,000 MG in Sodium Chloride 0.9% 100 ML IV SCH ×2 (10:55→21:34)
--- NOTE | 2016-12-07 11:45 | CP.PCM.PN ---
Subjective - Date & Time of Evaluation Date of Evaluation: 12/07/16 Time of Evaluation: 08:50 - Subjective Subjective: Seen and examined at the bedside earlier chest today. Sister is at the bedside. Patient is lethargic but arousable to touch and sound. Nonverbal. No acute overnight events reported. He remains nothing by mouth and on TPN. Objective - Vital Signs/Intake and Output Vital Signs (last 24 hours): Temp Pulse Resp BP Pulse Ox 98.8 F 106 H 18 155/82 H 100 12/07/16 08:07 12/07/16 02:00 12/07/16 08:07 12/07/16 08:07 12/07/16 00:00 Intake and Output: 12/07/16 12/07/16 06:59 18:59 Intake Total 2270 Output Total 175 Balance 2095 - Medications Medications: Current Medications Acetaminophen (Tylenol 650 Mg Supp) 650 mg RC Q4H PRN PRN Reason: Fever >100.4 F Last Admin: 11/01/16 21:18 Dose: 650 mg Collagenase (Santyl) 0 gm TOP DAILY [facility] Last Admin: 12/06/16 10:17 Dose: 1 applic Al Hydrox/Mg Hydrox/Simethicone 30 ml/Diphenhydramine HCl 75 mg/Lidocaine 30 ml 0 ml PO QID [facility] Last Admin: 12/07/16 10:58 Dose: Not Given Ergocalciferol (Drisdol 50,000 Intl Units Cap) 1 cap PO Q7D [facility] Last Admin: 12/03/16 17:06 Dose: Not Given Hydralazine HCl (Apresoline) 10 mg IVP Q4H PRN PRN Reason: Systolic Blood Pressure Multivitamins/Vitamin C 10 ml/Chromium/Copper/Manganese/Zinc 1 ml/ Amino Acids/ Electrolytes/Dextrose 2,011 mls @ 83 mls/hr IV .Q24H [facility] Stop: 12/07/16 17:59 Last Admin: 12/06/16 18:19 Dose: 83 mls/hr Hydromorphone HCl (Dilaudid-Hp 1 Mg/Ml Taping Machine Operator) 25 mls @ 0 mls/hr IV PRN PRN; Protocol; Per Protocol PRN Reason: COOK APPRENTICE PER MD ORDER Last Admin: 12/06/16 22:19 Dose: 0.5 mls/hr Levetiracetam 1,000 mg/ Sodium (Chloride) 110 mls @ 460 mls/hr IV Q12 [facility] Last Admin: 12/07/16 10:55 Dose: 460 mls/hr Valproate Sodium 500 mg/ (Sodium Chloride) 105 mls @ 100 mls/hr IVPB Q12 [facility] Last Admin: 12/07/16 10:55 Dose: 100 mls/hr Lorazepam (Ativan) 2 mg IVP Q6 PRN; Protocol PRN Reason: Seizure activity Magnesium Hydroxide (Milk Of Magnesia) 30 ml PO DAILY PRN PRN Reason: skin irritation Last Admin: 12/02/16 14:09 Dose: 30 ml Multi-Ingredient Ointment (Hydrophor Oint) 0 gm TOP Q6H PRN PRN Reason: Dry lip Pantoprazole Sodium (Protonix Inj) 40 mg IVP DAILY [facility] Last Admin: 12/07/16 10:58 Dose: 40 mg Propranolol HCl (Inderal La) 120 mg PO DAILY [facility] Last Admin: 12/03/16 09:27 Dose: Not Given Sucralfate (Carafate Oral Susp) 1 gm PO BID [facility] Last Admin: 12/03/16 17:06 Dose: Not Given - Labs Labs: 12/07/16 06:30 12/07/16 06:30 PT 12.7 Seconds (9.9-11.8) H 12/07/16 06:30 INR 1.18 (0.93-1.08) H 12/07/16 06:30 APTT 37.1 Seconds (23.7-30.8) H 12/07/16 06:30 - Constitutional Appears: Chronically Ill - Eye Exam Eye Exam: Normal appearance. absent: Scleral icterus - ENT Exam ENT Exam: Mucous Membranes Moist - Neck Exam Neck Exam: Normal Inspection - Respiratory Exam Respiratory Exam: NORMAL BREATHING PATTERN. absent: Respiratory Distress - Cardiovascular Exam Cardiovascular Exam: +S1, +S2 - GI/Abdominal Exam GI & Abdominal Exam: Soft, Hypoactive Bowel Sounds Additional comments: positive colostomy draining brown liquid stool. - Extremities Exam Extremities Exam: Pedal Edema. absent: Calf Tenderness - Neurological Exam Neurological Exam: Altered - Skin Skin Exam: Dry, Warm Assessment and Plan - Assessment and Plan (Free Text) Assessment: ASSESSMENT: Altered Mental Status, s/p FU MRI, suggestive CVA, ? Brain mona New Onset Seizures Metastatic Stage IV Colon Cancer S/P Exploratory laparotomy with lysis of adhesions and repair of small bowel enterotomy and partial sigmoidectomy with end colostomy GI Bleed, S/P push enteroscopy: negative for bleed Anemia with multiple blood transfusions Elevated LFT, mainly alk phos, abdominal US done, 10/12 (+) sludge, no GB stones, CBD 5.0 cm, maybe medication induced, improving Fungemia PLAN: NPO, on TPN On Keppra/Valproate Sodium PO meds on hold PPI DVT prophylaxsis, scd/teds monitor cbc, electrolytes, transfuse as needed and replace eclectrolytes as needed. seizure precautions as per oncology, neurology,palliative care DNR/DNI Seen and discussed with Dr. Null.
--- NOTE | 2016-12-07 14:06 | PN ---
SUBJECTIVE: Patient is seen earlier this morning. Her condition continues to deteriorate. PHYSICAL EXAMINATION: VITAL SIGNS: Temperature is 98, blood pressure 150/80, respiratory rate is 20, heart rate of 100. HEENT: Examination of the HEENT is unremarkable. NECK: Supple. LUNGS: Decreased breath sounds. HEART: Normal S1 and S2. LABORATORY DATA: Reveals a white count of 11,000, hemoglobin of 8, platelets of 110. Chemistries reveals a BUN of 18, creatinine of 0.3. Urinalysis is noted. ASSESSMENT AND PLAN: This is a 61-year-old female who has end-stage stage IV colon cancer with metastases to the brain, lungs, bone, liver and with albicans Port-A-Cath removal, currently off antibiotics. Afebrile, improving white count and awaiting for hospice setting for this patient who is terminal. Lang Akhtar MD
--- NOTE | 2016-12-07 16:25 | PN ---
DATE: 12/07/2016 SUBJECTIVE: The patient is seen lying in bed. She is obtunded, lethargic, moan. PHYSICAL EXAMINATION: GENERAL: Elderly lady lying in bed. VITAL SIGNS: Blood pressure 155/82, heart rate 106, respiratory rate 18, and temperature 98.8. HEENT: Normocephalic and atraumatic. NECK: Supple. No JVD. LUNGS: Bilateral equal air entry. No rales. CARDIAC: S1, S2, regular rate and rhythm, no murmurs, no rubs. ABDOMEN: Obese,distended, soft, positive colostomy. EXTREMITIES: 1+ pitting edema of the lower extremities, wrinkling of the skin. INTAKE AND OUTPUT: 2270/1575. LABORATORY DATA: WBC 11, hemoglobin 8, hematocrit 25, and platelets 110. Sodium 139, potassium 3.7, chloride 107, CO2 of 30, BUN 18, creatinine 0.3, glucose 111, calcium 7.9, magnesium 1.6, AST 15, ALT 22, albumin 1.8, corrected calcium is 9.4. MEDICATIONS: Hydralazine, Ativan, Carafate, Dilaudid, vitamin D, , Keppra, and Protonix. ASSESSMENT: 1. Stage IV colon cancer. 2. Malnutrition. 3. Status post seizure. 4. Status post palliative colostomy. 5. Chronic pain. 6. Poor prognosis. PLAN: 1. Continue current TPN. 2. Continue pain management. 3. Continue anti seizure medication. Adele Griffin MD MTDD
--- NOTE | 2016-12-07 17:02 | CP.PCM.PN ---
<Cassie Arcos - Last Filed: 12/07/16 16:59> Subjective - Date & Time of Evaluation Date of Evaluation: 12/07/16 Time of Evaluation: 17:00 - Subjective Subjective: PGY-[address] Ruthie maza observed Objective - Vital Signs/Intake and Output Vital Signs (last 24 hours): Temp Pulse Resp BP Pulse Ox 97.4 F L 111 H 16 138/88 100 12/07/16 16:15 12/07/16 16:15 12/07/16 16:15 12/07/16 16:15 12/07/16 16:15 Intake and Output: 12/07/16 12/07/16 06:59 18:59 Intake Total 2270 Output Total 175 1400 Balance 2095 -1400 - Medications Medications: Current Medications Acetaminophen (Tylenol 650 Mg Supp) 650 mg RC Q4H PRN PRN Reason: Fever >100.4 F Last Admin: 11/01/16 21:18 Dose: 650 mg Collagenase (Santyl) 0 gm TOP DAILY [facility] Last Admin: 12/06/16 10:17 Dose: 1 applic Al Hydrox/Mg Hydrox/Simethicone 30 ml/Diphenhydramine HCl 75 mg/Lidocaine 30 ml 0 ml PO QID [facility] Last Admin: 12/07/16 10:58 Dose: Not Given Hydralazine HCl (Apresoline) 10 mg IVP Q4H PRN PRN Reason: Systolic Blood Pressure Multivitamins/Vitamin C 10 ml/Chromium/Copper/Manganese/Zinc 1 ml/ Amino Acids/ Electrolytes/Dextrose 2,011 mls @ 83 mls/hr IV .Q24H [facility] Stop: 12/07/16 17:59 Last Admin: 12/06/16 18:19 Dose: 83 mls/hr Levetiracetam 1,000 mg/ Sodium (Chloride) 110 mls @ 460 mls/hr IV Q12 [facility] Last Admin: 12/07/16 10:55 Dose: 460 mls/hr Valproate Sodium 500 mg/ (Sodium Chloride) 105 mls @ 100 mls/hr IVPB Q12 [facility] Last Admin: 12/07/16 10:55 Dose: 100 mls/hr Hydromorphone HCl (Dilaudid-Hp 1 Mg/Ml Ceramic Capacitor Processor) 25 mls @ 0 mls/hr IV PRN PRN; Protocol; Per Protocol PRN Reason: GROUNDS MAINTENANCE MANAGER PER MD ORDER Lorazepam (Ativan) 2 mg IVP Q6 PRN; Protocol PRN Reason: Seizure activity Magnesium Hydroxide (Milk Of Magnesia) 30 ml PO DAILY PRN PRN Reason: skin irritation Last Admin: 12/02/16 14:09 Dose: 30 ml Multi-Ingredient Ointment (Hydrophor Oint) 0 gm TOP Q6H PRN PRN Reason: Dry lip Pantoprazole Sodium (Protonix Inj) 40 mg IVP DAILY [facility] Last Admin: 12/07/16 10:58 Dose: 40 mg - Labs Labs: 12/07/16 06:30 12/07/16 06:30 PT 12.7 Seconds (9.9-11.8) H 12/07/16 06:30 INR 1.18 (0.93-1.08) H 12/07/16 06:30 APTT 37.1 Seconds (23.7-30.8) H 12/07/16 06:30 Assessment and Plan - Assessment and Plan (Free Text) Plan: 61 F admitted on 10/09/16 with sepsis post chemotherapy with 2 cycles of FOLFOX based chemotherapy with Avastin. The hospital course was complicated by (1) seizure due to new stroke vs brain mets, (2) anemia due to GI bleeding requiring transfusion and (3) fungemia/bactermia with Port removal (11/14/16) which pt is 2 weeks of IV daptomycin/mycamine, then PO antifungal, then back on IV mycamine due to no PO intake. Pt has zero oral intake incluing meds. Plan: Pt is now DNR/DNI. [facility] in Palliative and Dr. Hendricks have met for [address] Hendricks talked to family on phone for 45 mins on 12/04/16. Pt is DNR/DNI. Dr. Hendricks will call family with a goal to taper TPN, and further discuss on decision re: hospice/comfort care vs palliative care. Will follow up re: (?) peg placement, (?) detention placement, (?) hospice. Hospice met with pt's mom 2 days ago. Mom said "Let me talk to my children." Seizure, due to ischemic stroke vs mets - Keppra was increased to 1000 mg q12, and valproate 500 mg q12 last night - D/C all antibiotics - seizure precaution Altered Mental Status, only arousable by touch, no PO intake Stroke, ischemic with hemorrhagic conversion, Enlarged occipital-parietal infarct (+) brain mets - Neuro checks - May start ASA pending PO status - NPO Imaging - Repeat MRI 12/03/16: No change in size of left occipital hemorrhage and small thin left subdural hematoma (subacute) An increase in size of acute infarct in L posterior temporal lobe occipital and parietal lobes. Increased white matter edema in R occipital lobe without a diffusion abnormality. (could be metastatic lesions) Vasogenic edema in the right cerebellar hemisphere secondary to the enhancing metastatic lesion identified previously. - MRI/MRA : R cerebral hemisphere - 0.2cm enhancing mass with moderate local edema L occipital lobe - 3.9cm probably subacute infarct vs glioma Bilateral frontal, right temporociipital, brain stem - could be metastes - CT head no contrast (11/27) with encephalomalacia, ct scan reveal hypodensities right cerebellum and bilateral occipital, which were there before compared to CT of the head from 10/11/16. - EEG: b/l slowing waves, no epileptic form wave - 2 CLIENT SUPPORT PROFESSIONAL (11/27) for blurry vision turned blank stair, which later turned tonic- clonic movements. During CLIENT SUPPORT PROFESSIONAL, she was responsive to only painful stimuli. Left sided facial droop was experienced. Pt was trasnferred to ICU, now downgraded to remote telemetry. - CLIENT SUPPORT PROFESSIONAL (11/23) Pt was hypotensive and AMS on 11/23 CLIENT SUPPORT PROFESSIONAL due to narcotic side effect. Severe anemia, s/p 30 u pRBC Thrombocytopenia s/p plt transfusion Neutropenia - resolved - Hb 8 Neuropathic Pain - Dilaudud 1q1 GROUNDS MAINTENANCE MANAGER - Hold Durgesic - Per Dr Hendricks, do not add more pain meds now. Maintain at current pain regimen. 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 end-colostomy Susy esophagitis Pathology: Poorly differentiated colorectal adenocarcinoma metasiasis to bowel wall and serosa and one resection margin. 3/5 lymph nodes positive for metastasis - Microstaellite stable (08/13/16). Has ruled out rollins syndrome Sepsis due to C. albicans Fungemia, probably from port-a-cath Bacteremia with methicillin-resistant coagulase negative staph in repeated cx Gram negative bacilli in urine with minor - minor removed (11/24) Nose culture coagulase neg staphylococcus (/) - Now off abx - ABX history - s/p mycamine (day 14 since port removal) - Then switch to PO diflucan for another 2 weeks for total of 4 week antifungal tx - Now back on IV mycamine due to no PO - Off daptomycin for bactermeia r/o picc, r/o contamination (1/4 bottles) - repeated urine cx negative - Hold valganciclovir, no CMV on esophagus ulcer - L picc was placed on 10/31/16 which was not replaced due to coagulopathy and bleeding. Severe hypokalemia Hypernatermia Severe malnutrition, albumin 2.0 Hypomandnesemia Dysphagia - No PO intake - replete as needed - Ensure and PO supplements on hold - tpn Edema - lasix 20q12 - ON HOLD Prophylasix - SCD, protonix IV Consult: Wound care Palliative Cardio - Dr. Busby - sign off Heme Onc - Ashtyn Champagne GI - Dr. Null Nephro - Dr. Griffin/Todd ID - Dr. Avalos Surgery - Dr. Jeffers for wound Surgery - Dr. Mccracken for colostomy ICU - Dr. Centeno IR - Dr. Hackett Opthalomoly = Dr. Greenberg Pain - Dr. Amador Neuro - Dr. Moya s/r/d/w Dr. eHndricks <Kedar Hendricks P - Last Filed: 12/09/16 12:03> Objective - Vital Signs/Intake and Output Vital Signs (last 24 hours): Temp Pulse Resp BP Pulse Ox 98.9 F 115 H 17 126/76 100 12/09/16 07:49 12/09/16 10:00 12/09/16 07:49 12/09/16 07:49 12/09/16 07:49 Intake and Output: 12/09/16 12/09/16 06:59 18:59 Intake Total 1562 0 Output Total 650 Balance 1562 -650 - Medications Medications: Current Medications Acetaminophen (Tylenol 650 Mg Supp) 650 mg RC Q4H PRN PRN Reason: Fever >100.4 F Last Admin: 11/01/16 21:18 Dose: 650 mg Collagenase (Santyl) 0 gm TOP DAILY [facility] Last Admin: 12/09/16 09:03 Dose: 1 applic Al Hydrox/Mg Hydrox/Simethicone 30 ml/Diphenhydramine HCl 75 mg/Lidocaine 30 ml 0 ml PO QID [facility] Last Admin: 12/09/16 09:03 Dose: Not Given Hydralazine HCl (Apresoline) 10 mg IVP Q4H PRN PRN Reason: Systolic Blood Pressure Levetiracetam 1,000 mg/ Sodium (Chloride) 110 mls @ 460 mls/hr IV Q12 [facility] Last Admin: 12/09/16 09:01 Dose: 460 mls/hr Valproate Sodium 500 mg/ (Sodium Chloride) 105 mls @ 100 mls/hr IVPB Q12 [facility] Last Admin: 12/09/16 09:02 Dose: 100 mls/hr Hydromorphone HCl (Dilaudid-Hp 1 Mg/Ml Ceramic Capacitor Processor) 25 mls @ 0 mls/hr IV PRN PRN; Protocol; Per Protocol PRN Reason: GROUNDS MAINTENANCE MANAGER PER MD ORDER Last Admin: 12/08/16 20:12 Dose: 25 mls/hr Multivitamins/Vitamin C 10 ml/Chromium/Copper/Manganese/Zinc 1 ml/ Amino Acids/ Electrolytes/Dextrose 2,011 mls @ 83 mls/hr IV .Q24H [facility] Stop: 12/11/16 17:59 Last Admin: 12/08/16 17:00 Dose: 83 mls/hr Lorazepam (Ativan) 2 mg IVP Q6 PRN; Protocol PRN Reason: Seizure activity Last Admin: 12/09/16 01:44 Dose: 2 mg Magnesium Hydroxide (Milk Of Magnesia) 30 ml PO DAILY PRN PRN Reason: skin irritation Last Admin: 12/02/16 14:09 Dose: 30 ml Multi-Ingredient Ointment (Hydrophor Oint) 0 gm TOP Q6H PRN PRN Reason: Dry lip Pantoprazole Sodium (Protonix Inj) 40 mg IVP DAILY [facility] Last Admin: 12/09/16 09:02 Dose: 40 mg - Labs Labs: 12/08/16 06:00 12/08/16 06:00 PT 12.7 Seconds (9.9-11.8) H 12/07/16 06:30 INR 1.18 (0.93-1.08) H 12/07/16 06:30 APTT 37.1 Seconds (23.7-30.8) H 12/07/16 06:30 Attending/Attestation - Attestation I have personally seen and examined this patient.: Yes I have fully participated in the care of the patient.: Yes I have reviewed all pertinent clinical information, including history, physical exam and plan: Yes
[2016-12-07] MEDS: Collagenase 250 Units/gm Ointment(30 gm) TOP SCH (17:34)
[2016-12-07] MEDS: HYDROmorphone 1 mg/ml PCA 25 ML IV PRN (20:20)
[2016-12-08 07:11] LABS: ALB/GLOB RATIO 0.7 (1.1-1.8); ALBUMIN 1.9 g/dL (3.0-4.8); ALT/SGPT 27 U/L (7-56); AST/SGOT 16 U/L (15-39); BLOOD UREA NITROGEN 18 mg/dL (7-21); CALCIUM 8.1 mg/dL (8.4-10.5); GFR AFRICAN-AMERICAN > 60; GFR NON-AFRICAN AMERICAN > 60; MAGNESIUM 1.6 mg/dL (1.7-2.2)
[2016-12-08 08:36] LABS: BASO # 0.01 K/mm3 (0.0-2.0); BASO % 0.1 % (0.0-3.0); EOS % 0.1 % (1.5-5.0); GRAN # 9.61 (1.4-6.5); GRAN % 84.2 % (50.0-68.0); LYMPH # 0.5 (1.2-3.4); LYMPH % 4.7 % (22.0-35.0); MEAN CELL VOLUME 94.1 fL (80.0-105.0); MEAN CORPUSCULAR HEMOGLOBIN 29.6 pg (25.0-35.0); MEAN CORPUSCULAR HGB CONC 31.5 g/dl (31.0-37.0); MONO # 1.3 (0.1-0.6); MONO % 10.9 % (1.0-6.0); PLATELET COUNT 104 10^3/uL (120.0-450.0); RBC 2.53 10^6/uL (3.5-6.1); WHITE BLOOD COUNT 11.4 10^3/ul (4.5-11.0)
[2016-12-08 08:39] LABS: HEMOGLOBIN 7.5 gm/dL (12.0-16.0)
[2016-12-08] MEDS: Aluminum Hydroxide/Magnesium 30 ML, DiphenhydrAMINE 75 MG, Lidocaine 2% Viscous 30 ML PO SCH (10:51)
[2016-12-08] MEDS: Valproate 500 MG in Sodium Chloride 0.9% 100 ML IVPB SCH ×2 (11:02→21:20)
[2016-12-08] MEDS: levETIRAcetam 1,000 MG in Sodium Chloride 0.9% 100 ML IV SCH ×2 (11:02→21:20)
[2016-12-08] MEDS: Collagenase 250 Units/gm Ointment(30 gm) TOP SCH (11:03)
--- NOTE | 2016-12-08 14:09 | PN ---
DATE: 12/08/2016 SUBJECTIVE: The patient is seen lying in bed. She is sedated?, minimally responsive, does not appear to be in any kind of distress, family member is at bedside. PHYSICAL EXAMINATION: VITAL SIGNS: Blood pressure 132/87, heart rate 126, respiratory rate 18, and temperature 98.8. HEENT: Normocephalic and atraumatic. Positive pallor. NECK: Supple. No JVD. LUNGS: Bilateral equal air entry, no rales. CARDIAC: S1, S2, regular rate and rhythm, tachycardia, no murmur. ABDOMEN: Soft, nondistended, bowel sounds present, positive colostomy. EXTREMITIES: 1+ pitting edema of the lower extremities, wrinkling of the skin. INTAKE AND OUTPUT: 2420/2500. LABORATORY DATA: WBC 11.4, hemoglobin 7.5, hematocrit 24, and platelet 104. Sodium 141, potassium 3.8, chloride 107, CO2 of 31, BUN 18, creatinine 0.2, glucose of 93, calcium 8.1, magnesium 1.6, and albumin 1.9. ASSESSMENT: 1. Metastatic colon cancer with bone mets. 2. Severe malnutrition. 3. Intractable pain. 4. Palliative colostomy. 5. Severe anemia, status post gastrointestinal bleed. PLAN: 1. Continue comfort care. 2. Continue hyperalimentation. 3. Pain management. 4. Revisit hospice option. Adele Griffin MD
--- NOTE | 2016-12-08 14:18 | PN ---
DATE: 12/08/2016 SUBJECTIVE: The patient was seen early this morning in room 368, bed 2. Overall ,the patient's condition is poor. She is poorly responsive. PHYSICAL EXAMINATION: VITAL SIGNS: Temperature of 98, blood pressure is 130/70, respiratory of 18, heart rate of 120. HEENT: Unremarkable. NECK: Supple. LUNGS: Decreased breath sounds. HEART: Normal, S1 and S2. ABDOMEN: Soft and nontender. LABORATORY DATA: Reveals the patient's white count is noted and review of orders reveals the patient to be off of antibiotics. note is reviewed. ASSESSMENT AND PLAN: This is a 61-year-old female with end-stage colon cancer, stage IV, metastasis to the brain, lung, bone, liver with nirmal albicans, fungemia, with a Port-A-Cath removal, off of antibiotics. Currently the patient is terminal, waiting for hospice decisions, palliative care and prognosis is quite poor. Lang Akhtar MD
[2016-12-08] MEDS: HYDROmorphone 1 mg/ml PCA 25 ML IV PRN (20:12)
--- NOTE | 2016-12-09 03:04 | PN ---
DATE: 12/08/2016 This is [facility]'s hospital visit on the medical floor. For Dr. Hendricks. SUBJECTIVE: The patient is a 61-year-old female now hospitalized for approximately 60 days with the patient known to suffer from stage IV CA of the colon with metastasis to the lungs and brain with recent enhancing metastatic lesion in the right cerebellar hemisphere status post infarcts and hemorrhage into the left occipital area. The patient known to also have metastasis to the right upper lobe of the lung with a lytic lesion in the right sacrum. She is seen lying with light sedated with no obvious seizure-type activity appreciated with the patient opening her eyes to voice command. She is now DNR/DNI after again significant long discussion with family members with the family reluctant to make her a hospice patient. Her hemoglobin has dropped with the patient now noted to have a hemoglobin of 7.5 for which the family declines to have a transfusion at this point after conversation with myself and Dr. Hendricks. However, we will hold labs for the morning and check the labs again in 2 day's time. Her TPN hyperal was restarted by Dr. Griffin, renal client relationship consultant fluid corporate sales manager with her RANGE FEEDER pump continuing with narcotic analgesics with the family at the bedside. OBJECTIVE: VITAL SIGNS: Temperature 98.8, pulse 104, respirations 18, blood pressure 132/87, pulse ox 99%. GENERAL: She opens her eyes to verbal stimuli. Otherwise, appears cachectic. HEENT: Tongue is dry. NECK: Supple. HEART: Tachy rate, regular rhythm. LUNGS: Rare rhonchi. ABDOMEN: Soft with viable colostomy. EXTREMITIES: No spontaneous movement. No seizure activity, with +1 edema. NEUROLOGIC: Opens eyes to voice command. SKIN: Decubitus ulcer of the sacrum. LABORATORY DATA: The patient's labs were done. White blood cell count 11.4, hemoglobin 7.5, down from 8.0 yesterday, hematocrit 23.8, platelet count of 104,000. A chem metabolic panel showing a creatinine of 0.2, BUN of 18 with calcium of 8.1, total protein of 4.6. The patient did have the MRI of brain that was reported above date 12/03/2016, which showed increase size and extent of acute infract in the left hemisphere. ASSESSMENT: For this patient is that of end-stage, stage IV carcinoma of the colon with metastasis to the brain, bone, and lungs; status post cerebrovascular accident; seizure disorder secondary to above; malnutrition; intractable pain of cancer; anemia of chronic disease; history of gastrointestinal bleed secondary to neoplastic change; history of gastritis; palliative colostomy; cauda equina syndrome; colonic stricture with lysis of adhesions, postop; sepsis due to fungemia; neutropenic sepsis. PLAN: For this patient, after conversation with the family is to hold off on transfusions. We will not do labs in the morning. We will restart her hyperal in the interim with family refusing hospice recommendations, with palliative care to continue. Prognosis for this patient is grave. Tomasz Winters MD
[2016-12-09] MEDS: Aluminum Hydroxide/Magnesium 30 ML, DiphenhydrAMINE 75 MG, Lidocaine 2% Viscous 30 ML PO SCH ×6 (05:34→22:35)
[2016-12-09] MEDS: levETIRAcetam 1,000 MG in Sodium Chloride 0.9% 100 ML IV SCH ×2 (09:01→22:34)
[2016-12-09] MEDS: Valproate 500 MG in Sodium Chloride 0.9% 100 ML IVPB SCH ×2 (09:02→22:34)
[2016-12-09] MEDS: Collagenase 250 Units/gm Ointment(30 gm) TOP SCH (09:03)
--- NOTE | 2016-12-09 10:03 | CP.PCM.PN ---
<Gunner Lucio - Last Filed: 12/09/16 10:00> Subjective - Date & Time of Evaluation Date of Evaluation: 12/09/16 Time of Evaluation: 06:40 - Subjective Subjective: General Surgery- Dr. Mccracken PT S&E at bedside this AM. NAEO. Pt opens eyes to verbal stimuli however still lethargic. withdraws from pain. Pt does not verbalize or communicate coherently. Objective - Vital Signs/Intake and Output Vital Signs (last 24 hours): Temp Pulse Resp BP Pulse Ox 98.9 F 113 H 17 126/76 100 12/09/16 07:49 12/09/16 07:49 12/09/16 07:49 12/09/16 07:49 12/09/16 07:49 Intake and Output: 12/09/16 12/09/16 06:59 18:59 Intake Total 1562 0 Output Total 650 Balance 1562 -650 - Medications Medications: Current Medications Acetaminophen (Tylenol 650 Mg Supp) 650 mg RC Q4H PRN PRN Reason: Fever >100.4 F Last Admin: 11/01/16 21:18 Dose: 650 mg Collagenase (Santyl) 0 gm TOP DAILY [facility] Last Admin: 12/09/16 09:03 Dose: 1 applic Al Hydrox/Mg Hydrox/Simethicone 30 ml/Diphenhydramine HCl 75 mg/Lidocaine 30 ml 0 ml PO QID [facility] Last Admin: 12/09/16 09:03 Dose: Not Given Hydralazine HCl (Apresoline) 10 mg IVP Q4H PRN PRN Reason: Systolic Blood Pressure Levetiracetam 1,000 mg/ Sodium (Chloride) 110 mls @ 460 mls/hr IV Q12 [facility] Last Admin: 12/09/16 09:01 Dose: 460 mls/hr Valproate Sodium 500 mg/ (Sodium Chloride) 105 mls @ 100 mls/hr IVPB Q12 [facility] Last Admin: 12/09/16 09:02 Dose: 100 mls/hr Hydromorphone HCl (Dilaudid-Hp 1 Mg/Ml Medical Billing Instructor) 25 mls @ 0 mls/hr IV PRN PRN; Protocol; Per Protocol PRN Reason: RESIDENCE LIFE DIRECTOR PER MD ORDER Last Admin: 12/08/16 20:12 Dose: 25 mls/hr Multivitamins/Vitamin C 10 ml/Chromium/Copper/Manganese/Zinc 1 ml/ Amino Acids/ Electrolytes/Dextrose 2,011 mls @ 83 mls/hr IV .Q24H [facility] Stop: 12/11/16 17:59 Last Admin: 12/08/16 17:00 Dose: 83 mls/hr Lorazepam (Ativan) 2 mg IVP Q6 PRN; Protocol PRN Reason: Seizure activity Last Admin: 12/09/16 01:44 Dose: 2 mg Magnesium Hydroxide (Milk Of Magnesia) 30 ml PO DAILY PRN PRN Reason: skin irritation Last Admin: 12/02/16 14:09 Dose: 30 ml Multi-Ingredient Ointment (Hydrophor Oint) 0 gm TOP Q6H PRN PRN Reason: Dry lip Pantoprazole Sodium (Protonix Inj) 40 mg IVP DAILY [facility] Last Admin: 12/09/16 09:02 Dose: 40 mg - Labs Labs: 12/08/16 06:00 12/08/16 06:00 PT 12.7 Seconds (9.9-11.8) H 12/07/16 06:30 INR 1.18 (0.93-1.08) H 12/07/16 06:30 APTT 37.1 Seconds (23.7-30.8) H 12/07/16 06:30 - Constitutional Appears: No Acute Distress, Chronically Ill - ENT Exam ENT Exam: Mucous Membranes Moist - Respiratory Exam Respiratory Exam: NORMAL BREATHING PATTERN. absent: Accessory Muscle Use - Cardiovascular Exam Cardiovascular Exam: RRR, +S1, +S2 - GI/Abdominal Exam GI & Abdominal Exam: Soft, Normal Bowel Sounds. absent: Distended, Firm, Guarding, Tenderness Additional comments: good ostomy output - Extremities Exam Extremities Exam: Joint Swelling, Pedal Edema - Neurological Exam Neurological Exam: Altered - Skin Skin Exam: Intact Assessment and Plan - Assessment and Plan (Free Text) Assessment: 61 F Colon CA and Sacral decub w/ progressively worsening mental status POD22 s /p Marquita's Plan: Continue with current medical management Monitor H+H, AM labs pending Monitor electrolytes, AM labs pending Apply milk of magnesia on excoriation at the colostomy site, keep dry and change colostomy bag prn Monitor surgical midline incision and ostomy sites for signs of infection, inflammation, drainage or dehiscence. No need for surgical intervention at this time. Will discuss with Dr. Kaykay Lucio PGY1 <Yoan Mccracken - Last Filed: 12/12/16 23:19> Objective - Vital Signs/Intake and Output Vital Signs (last 24 hours): Temp Pulse Resp BP Pulse Ox 98.5 F 160 H 20 157/90 H 97 12/12/16 06:00 12/12/16 06:00 12/12/16 06:00 12/12/16 06:00 12/12/16 06:00 Intake and Output: 12/12/16 12/13/16 18:59 06:59 Intake Total 0 Output Total 300 Balance -300 - Medications Medications: Current Medications Acetaminophen (Tylenol 650 Mg Supp) 650 mg RC Q4H PRN PRN Reason: Fever >100.4 F Last Admin: 11/01/16 21:18 Dose: 650 mg Albuterol/Ipratropium (Duoneb 3 Mg/0.5 Mg (3 Ml) Ud) 3 ml IH [id number] PRN PRN Reason: Cough and congestion Last Admin: 12/12/16 22:10 Dose: 3 ml Collagenase (Santyl) 0 gm TOP DAILY [facility] Last Admin: 12/12/16 09:16 Dose: 1 applic Diphenhydramine HCl (Benadryl) 50 mg IVP Q12H PRN PRN Reason: Allergy symptoms Levetiracetam 1,000 mg/ Sodium (Chloride) 110 mls @ 460 mls/hr IV Q12 [facility] Last Admin: 12/12/16 21:50 Dose: 460 mls/hr Valproate Sodium 500 mg/ (Sodium Chloride) 105 mls @ 100 mls/hr IVPB Q12 [facility] Last Admin: 12/12/16 21:50 Dose: 100 mls/hr Hydromorphone HCl (Dilaudid-Hp 1 Mg/Ml Medical Billing Instructor) 25 mls @ 1.5 mls/hr IV .[id number] [facility] Lorazepam (Ativan) 2 mg IVP Q6 PRN; Protocol PRN Reason: Seizure activity Last Admin: 12/12/16 18:22 Dose: 2 mg Magnesium Hydroxide (Milk Of Magnesia) 30 ml PO DAILY PRN PRN Reason: skin irritation Last Admin: 12/02/16 14:09 Dose: 30 ml Multi-Ingredient Ointment (Hydrophor Oint) 0 gm TOP Q6H PRN PRN Reason: Dry lip Scopolamine (Transderm-Scop) 1 patch TD Q3D [facility] Last Admin: 12/12/16 09:49 Dose: 1 patch - Labs Labs: 12/12/16 07:45 12/12/16 07:45 PT 12.7 Seconds (9.9-11.8) H 12/07/16 06:30 INR 1.18 (0.93-1.08) H 12/07/16 06:30 APTT 37.1 Seconds (23.7-30.8) H 12/07/16 06:30 Assessment and Plan - Assessment and Plan (Free Text) Plan: Patient was seen and examined by me. I agree with assessment and plan as per resident's note.Surgical service will sign off for now.
--- NOTE | 2016-12-09 13:30 | PN ---
DATE: 12/09/2016 SUBJECTIVE: The patient is in bed, in no acute distress, and nontoxic. PHYSICAL EXAMINATION VITAL SIGNS: Temperature is 98, blood pressure is 126/70, respiratory rate of 17 and heart rate of 113. HEENT: Examination of HEENT is unremarkable. NECK: Supple. HEART: Normal S1 and S2. LUNGS: Decreased breath sounds. ABDOMEN: Soft. LABORATORY DATA: Examination is noted. Dr. Tomasz Winters's note is reviewed. ASSESSMENT AND PLAN: This is a 61-year-old female with endstage stage IV colon cancer with metastasis to the brain, lung, bone and liver with Susy albicans fungemia, Port-A-Cath removal, currently off of antibiotics and the patient's prognosis is grave and a discussion of hospice is taking place. Awaiting for hospice decision. Off of antibiotics. Her prognosis is quite poor and the patient should have hospice setting. Lang Akhtar MD
[2016-12-09] MEDS: HYDROmorphone 1 mg/ml PCA 25 ML IV PRN (17:06)
[2016-12-09] MEDS: Albuterol-Ipratrop 3 mg / 0.5 (3 ml) UD IH PRN (22:34)
--- NOTE | 2016-12-09 23:33 | PN ---
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 With this, patient also had a lytic lesion of the right sacrum with decubitus ulcer on her back side with significant thrombocytopenia now improved with the patient's mental status now in decline with seizure activity being treated with good affect also with PHYSICIAN OFFICE REP narcotic analgesia for her severe intractable pain of cancer. The patient's most recent blood value showed a hemoglobin 7.5 which the family decline to have a transfusion. Labs were not drawn today, they will be drawn tomorrow with the patient's sister aware of findings with copies of most recent testing given to the family with the patient's mother now at the bedside along with other family members with consideration for hospice care, strongly recommended with the patient now resting in no acute distress. PHYSICAL EXAMINATION VITAL SIGNS: Temperature 98.2, pulse 115, respirations 20, blood pressure 120/68, pulse ox 100%. HEENT: The patient does not open her eyes at this point to verbal stimuli with the patient appearing mildly cachectic with HEENT is otherwise noted that tongue is dry. NECK: Supple. HEART: Tachy rate, regular rhythm. LUNGS: Scattered rhonchi. ABDOMEN: Soft with the viable colostomy. EXTREMITIES: No spontaneous movement with no seizure activity, +1 edema of the lower extremities and hands. NEUROLOGIC: She appears obtunded. SKIN: Warm and dry except for decubitus ulcer of the sacrum. LABORATORY DATA: The patient's labs were not done this morning, they will be repeated tomorrow. ASSESSMENT: For this patient is that of end-stage, stage IV carcinoma of the colon, metastasis to the brain, bone and lungs; status post cerebrovascular accident, seizure disorder, secondary to above intractable pain of cancer; anemia of chronic disease; history gastrointestinal bleed secondary to neoplastic change; history of gastritis, palliative colostomy, cauda equina syndrome, colonic stricture relieved with lysis of adhesions postoperative; status post sepsis due to fungemia and neutropenic sepsis. PLAN: For this patient is to continue supportive care with consideration for transfusion with labs to be drawn in the morning. As per the family's wishes, she is DO NOT RESUSCITATE/DO NOT INTUBATE; however, she continues to have hyperal along with some supportive care with strong consideration for hospice, again recommended palliative care to continue. The prognosis for this patient unfortunately is grave. Tomasz Winters MD
[2016-12-10 06:35] LABS: ALBUMIN 1.8 g/dL (3.0-4.8); ALT/SGPT 23 U/L (7-56); AST/SGOT 16 U/L (15-39); BLOOD UREA NITROGEN 21 mg/dL (7-21); GFR AFRICAN-AMERICAN > 60; GFR NON-AFRICAN AMERICAN > 60
[2016-12-10 07:09] LABS: BASO # 0.01 K/mm3 (0.0-2.0); BASO % 0.1 % (0.0-3.0); EOS % 0.1 % (1.5-5.0); GRAN # 10.28 (1.4-6.5); GRAN % 86.7 % (50.0-68.0); LYMPH # 0.8 (1.2-3.4); LYMPH % 6.3 % (22.0-35.0); MEAN CELL VOLUME 94.9 fL (80.0-105.0); MEAN CORPUSCULAR HGB CONC 30.6 g/dl (31.0-37.0); MEAN PLATELET VOLUME 10.7 fl (7.0-11.0); MONO # 0.8 (0.1-0.6); MONO % 6.8 % (1.0-6.0); PLATELET COUNT 172 10^3/uL (120.0-450.0); RBC 2.17 10^6/uL (3.5-6.1); RED CELL DISTRIBUTION WIDTH 16.4 % (11.5-14.5); WHITE BLOOD COUNT 11.9 10^3/ul (4.5-11.0)
[2016-12-10 07:17] LABS: ALB/GLOB RATIO 0.8 (1.1-1.8)
[2016-12-10 07:33] LABS: HEMOGLOBIN 6.3 gm/dL (12.0-16.0)
--- NOTE | 2016-12-10 09:45 | CP.PCM.PN ---
<Cassie Arcos - Last Filed: 12/10/16 12:59> Subjective - Date & Time of Evaluation Date of Evaluation: 12/10/16 Time of Evaluation: 09:44 - Subjective Subjective: PGY-[address] Avalos Chest congestion with rhonci noted in RN notes and today examination Oral suctioning provided but noted diminished gag reflux Objective - Vital Signs/Intake and Output Vital Signs (last 24 hours): Temp Pulse Resp BP Pulse Ox 98.6 F 114 H 22 138/81 98 12/10/16 07:46 12/10/16 07:46 12/10/16 07:46 12/10/16 07:46 12/10/16 07:46 Intake and Output: 12/10/16 12/10/16 06:59 18:59 Intake Total 1396 0 Output Total 550 400 Balance 846 -400 - Medications Medications: Current Medications Acetaminophen (Tylenol 650 Mg Supp) 650 mg RC Q4H PRN PRN Reason: Fever >100.4 F Last Admin: 11/01/16 21:18 Dose: 650 mg Albuterol/Ipratropium (Duoneb 3 Mg/0.5 Mg (3 Ml) Ud) 3 ml IH [id number] PRN PRN Reason: Cough and congestion Last Admin: 12/09/16 22:34 Dose: 3 ml Collagenase (Santyl) 0 gm TOP DAILY ROD[facility]ÍGUE[facility] Last Admin: 12/09/16 09:03 Dose: 1 applic Al Hydrox/Mg Hydrox/Simethicone 30 ml/Diphenhydramine HCl 75 mg/Lidocaine 30 ml 0 ml PO QID [facility]OD[facility]GUE[facility] Last Admin: 12/09/16 22:35 Dose: Not Given Hydralazine HCl (Apresoline) 10 mg IVP Q4H PRN PRN Reason: Systolic Blood Pressure Levetiracetam 1,000 mg/ Sodium (Chloride) 110 mls @ 460 mls/hr IV Q12 [facility] Last Admin: 12/09/16 22:34 Dose: 460 mls/hr Valproate Sodium 500 mg/ (Sodium Chloride) 105 mls @ 100 mls/hr IVPB Q12 [facility] Last Admin: 12/09/16 22:34 Dose: 100 mls/hr Hydromorphone HCl (Dilaudid-Hp 1 Mg/Ml Engagement Director) 25 mls @ 0 mls/hr IV PRN PRN; Protocol; Per Protocol PRN Reason: OCEAN FREIGHT MANAGER PER MD ORDER Last Admin: 12/09/16 17:06 Dose: 1 mls/hr Multivitamins/Vitamin C 10 ml/Chromium/Copper/Manganese/Zinc 1 ml/ Amino Acids/ Electrolytes/Dextrose 2,011 mls @ 83 mls/hr IV .Q24H [facility] Stop: 12/11/16 17:59 Last Admin: 12/09/16 17:24 Dose: 83 mls/hr Lorazepam (Ativan) 2 mg IVP Q6 PRN; Protocol PRN Reason: Seizure activity Last Admin: 12/09/16 01:44 Dose: 2 mg Magnesium Hydroxide (Milk Of Magnesia) 30 ml PO DAILY PRN PRN Reason: skin irritation Last Admin: 12/02/16 14:09 Dose: 30 ml Multi-Ingredient Ointment (Hydrophor Oint) 0 gm TOP Q6H PRN PRN Reason: Dry lip Pantoprazole Sodium (Protonix Inj) 40 mg IVP DAILY [facility] Last Admin: 12/09/16 09:02 Dose: 40 mg - Labs Labs: 12/10/16 05:50 12/10/16 05:50 PT 12.7 Seconds (9.9-11.8) H 12/07/16 06:30 INR 1.18 (0.93-1.08) H 12/07/16 06:30 APTT 37.1 Seconds (23.7-30.8) H 12/07/16 06:30 - Constitutional Appears: No Acute Distress, Cachectic, Chronically Ill - Head Exam Head Exam: ATRAUMATIC, NORMAL INSPECTION, NORMOCEPHALIC - Eye Exam Eye Exam: absent: Scleral icterus - ENT Exam ENT Exam: Mucous Membranes Moist - Respiratory Exam Respiratory Exam: Decreased Breath Sounds, Rales, Rhonchi. absent: Wheezes - Cardiovascular Exam Cardiovascular Exam: REGULAR RHYTHM, +S1, +S2 - GI/Abdominal Exam GI & Abdominal Exam: Soft. absent: Guarding, Rigid Additional comments: dark bilous stool in ostomy bag. incision no drainage - Extremities Exam Extremities Exam: Pedal Edema (1+ pitting) Additional comments: minor intact, clear urine, no blood, not cloudy - Neurological Exam Additional comments: responsive to touch. gesture for pain - Skin Skin Exam: Dry, Warm Assessment and Plan - Assessment and Plan (Free Text) Plan: Chest congestion likely from fluid overload. New onset encephalopathy due to occipital lobe lesions vs left parietal lobe acute infarcts vs metasatic lesions Sepsis due to C. albicans Fungemia, probably from port-a-cath (removed on 11/12/16 , POD# 27) Bacteremia with methicillin-resistant coagulase negative staph in repeated cx - R/O secondary to PICC line - R/O contamination (1 of 4 bottles had positive culture) Gram negative bacilli in urine with minor - minor removed (11/24) and new minor replaced Nose culture coagulase neg staphylococcus (11/24) Partial small bowel obstruction, persistent with colonic stricture S/P exploratory laparotomy, lysis of adhesions, repair of small bowel enterotomy and partial sigmoidectomy with end-colostomy (11/17/16) - Push enterotomy (11/24/16) - EGD and sigmoidoscopy (10/26/16) Acute stomatitis and mucositis, as well as esophageal ulcers (esophagitis) and enteritis - no CMV noted on biopsy sample of the esophageal ulcers - consider Susy Esophagitis Neutropenia probably from chemotherapy, resolved HTN 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 S/P colectomy in 2014 history of UTI GERD anxiety - ABX history - s/p mycamine (day 14 since port removal) - Then switch to PO diflucan for another 2 weeks for total of 4 week antifungal tx (Just on PO diflucan x 1 day on 11/29. Pt did not take PO med due to AMS) - Back on IV mycamine due to no PO (Started on 12/03, and stop after 1 dose) - Now observe off ABX - Continue observe respiratory status, VS, and labs - TPN increases rise of infection in blood - Off daptomycin for bactermeia r/o picc, r/o contamination (1/4 bottles) - repeated urine cx negative - Hold valganciclovir, no CMV on esophagus ulcer - L picc was placed on 10/31/16 which was not replaced due to coagulopathy and bleeding. s/r/d/w Dr. Avalos <Rosalio Avalos - Last Filed: 12/10/16 13:53> Objective - Vital Signs/Intake and Output Vital Signs (last 24 hours): Temp Pulse Resp BP Pulse Ox 98.6 F 114 H 22 138/81 98 12/10/16 07:46 12/10/16 07:46 12/10/16 07:46 12/10/16 07:46 12/10/16 07:46 Intake and Output: 12/10/16 12/10/16 06:59 18:59 Intake Total 1396 0 Output Total 550 400 Balance 846 -400 - Medications Medications: Current Medications Acetaminophen (Tylenol 650 Mg Supp) 650 mg RC Q4H PRN PRN Reason: Fever >100.4 F Last Admin: 11/01/16 21:18 Dose: 650 mg Albuterol/Ipratropium (Duoneb 3 Mg/0.5 Mg (3 Ml) Ud) 3 ml IH [id number] PRN PRN Reason: Cough and congestion Last Admin: 12/10/16 10:17 Dose: 3 ml Collagenase (Santyl) 0 gm TOP DAILY [facility] Last Admin: 12/10/16 10:01 Dose: 1 applic Al Hydrox/Mg Hydrox/Simethicone 30 ml/Diphenhydramine HCl 75 mg/Lidocaine 30 ml 0 ml PO QID [facility] Last Admin: 12/10/16 10:01 Dose: Not Given Hydralazine HCl (Apresoline) 10 mg IVP Q4H PRN PRN Reason: Systolic Blood Pressure Levetiracetam 1,000 mg/ Sodium (Chloride) 110 mls @ 460 mls/hr IV Q12 [facility] Last Admin: 12/10/16 10:00 Dose: 460 mls/hr Valproate Sodium 500 mg/ (Sodium Chloride) 105 mls @ 100 mls/hr IVPB Q12 [facility] Last Admin: 12/10/16 10:00 Dose: 100 mls/hr Hydromorphone HCl (Dilaudid-Hp 1 Mg/Ml Engagement Director) 25 mls @ 0 mls/hr IV PRN PRN; Protocol; Per Protocol PRN Reason: OCEAN FREIGHT MANAGER PER MD ORDER Last Admin: 12/09/16 17:06 Dose: 1 mls/hr Multivitamins/Vitamin C 10 ml/Chromium/Copper/Manganese/Zinc 1 ml/ Amino Acids/ Electrolytes/Dextrose 2,011 mls @ 83 mls/hr IV .Q24H [facility] Stop: 12/11/16 17:59 Last Admin: 12/09/16 17:24 Dose: 83 mls/hr Lorazepam (Ativan) 2 mg IVP Q6 PRN; Protocol PRN Reason: Seizure activity Last Admin: 12/09/16 01:44 Dose: 2 mg Magnesium Hydroxide (Milk Of Magnesia) 30 ml PO DAILY PRN PRN Reason: skin irritation Last Admin: 12/02/16 14:09 Dose: 30 ml Multi-Ingredient Ointment (Hydrophor Oint) 0 gm TOP Q6H PRN PRN Reason: Dry lip Pantoprazole Sodium (Protonix Inj) 40 mg IVP DAILY [facility] Last Admin: 12/10/16 10:04 Dose: 40 mg - Labs Labs: 12/10/16 05:50 12/10/16 05:50 PT 12.7 Seconds (9.9-11.8) H 12/07/16 06:30 INR 1.18 (0.93-1.08) H 12/07/16 06:30 APTT 37.1 Seconds (23.7-30.8) H 12/07/16 06:30 Assessment and Plan - Assessment and Plan (Free Text) Plan: Attending attestation: Patient seen and examined, discussed with medical examiner. I agree with the above findings, assessment and plan. In addition, we will continue to monitor this patient off antibiotics who initially presented with Candidemia due to port infection S/P removal and S/P treatment with Diflucan and Mycamine. Overall prognosis is poor.
[2016-12-10] MEDS: Valproate 500 MG in Sodium Chloride 0.9% 100 ML IVPB SCH ×2 (10:00→21:35)
[2016-12-10] MEDS: levETIRAcetam 1,000 MG in Sodium Chloride 0.9% 100 ML IV SCH ×2 (10:00→21:36)
[2016-12-10] MEDS: Collagenase 250 Units/gm Ointment(30 gm) TOP SCH (10:01)
[2016-12-10] MEDS: Aluminum Hydroxide/Magnesium 30 ML, DiphenhydrAMINE 75 MG, Lidocaine 2% Viscous 30 ML PO SCH ×4 (10:01→21:38)
[2016-12-10] MEDS: Albuterol-Ipratrop 3 mg / 0.5 (3 ml) UD IH PRN (10:17)
--- NOTE | 2016-12-10 14:03 | CP.PCM.PN ---
Subjective - Date & Time of Evaluation Date of Evaluation: 12/10/16 Time of Evaluation: 09:00 - Subjective Subjective: PGY-[address] Hendricks Patient is very lethargic and moaning to touch. She is not oriented but opens her eyes with stimuli. No extremities twitching. Objective - Vital Signs/Intake and Output Vital Signs (last 24 hours): Temp Pulse Resp BP Pulse Ox 98.6 F 114 H 22 138/81 98 12/10/16 07:46 12/10/16 07:46 12/10/16 07:46 12/10/16 07:46 12/10/16 07:46 Intake and Output: 12/10/16 12/10/16 06:59 18:59 Intake Total 1396 0 Output Total 550 400 Balance 846 -400 - Medications Medications: Current Medications Acetaminophen (Tylenol 650 Mg Supp) 650 mg RC Q4H PRN PRN Reason: Fever >100.4 F Last Admin: 11/01/16 21:18 Dose: 650 mg Albuterol/Ipratropium (Duoneb 3 Mg/0.5 Mg (3 Ml) Ud) 3 ml IH [id number] PRN PRN Reason: Cough and congestion Last Admin: 12/10/16 10:17 Dose: 3 ml Collagenase (Santyl) 0 gm TOP DAILY [facility] Last Admin: 12/10/16 10:01 Dose: 1 applic Al Hydrox/Mg Hydrox/Simethicone 30 ml/Diphenhydramine HCl 75 mg/Lidocaine 30 ml 0 ml PO QID [facility] Last Admin: 12/10/16 10:01 Dose: Not Given Hydralazine HCl (Apresoline) 10 mg IVP Q4H PRN PRN Reason: Systolic Blood Pressure Levetiracetam 1,000 mg/ Sodium (Chloride) 110 mls @ 460 mls/hr IV Q12 [facility] Last Admin: 12/10/16 10:00 Dose: 460 mls/hr Valproate Sodium 500 mg/ (Sodium Chloride) 105 mls @ 100 mls/hr IVPB Q12 [facility] Last Admin: 12/10/16 10:00 Dose: 100 mls/hr Hydromorphone HCl (Dilaudid-Hp 1 Mg/Ml Home Service Demonstrator) 25 mls @ 0 mls/hr IV PRN PRN; Protocol; Per Protocol PRN Reason: PEDIATRICS HOSPITALIST PER MD ORDER Last Admin: 12/09/16 17:06 Dose: 1 mls/hr Multivitamins/Vitamin C 10 ml/Chromium/Copper/Manganese/Zinc 1 ml/ Amino Acids/ Electrolytes/Dextrose 2,011 mls @ 83 mls/hr IV .Q24H [facility] Stop: 12/11/16 17:59 Last Admin: 12/09/16 17:24 Dose: 83 mls/hr Lorazepam (Ativan) 2 mg IVP Q6 PRN; Protocol PRN Reason: Seizure activity Last Admin: 12/09/16 01:44 Dose: 2 mg Magnesium Hydroxide (Milk Of Magnesia) 30 ml PO DAILY PRN PRN Reason: skin irritation Last Admin: 12/02/16 14:09 Dose: 30 ml Multi-Ingredient Ointment (Hydrophor Oint) 0 gm TOP Q6H PRN PRN Reason: Dry lip Pantoprazole Sodium (Protonix Inj) 40 mg IVP DAILY [facility] Last Admin: 12/10/16 10:04 Dose: 40 mg - Labs Labs: 12/10/16 05:50 12/10/16 05:50 PT 12.7 Seconds (9.9-11.8) H 12/07/16 06:30 INR 1.18 (0.93-1.08) H 12/07/16 06:30 APTT 37.1 Seconds (23.7-30.8) H 12/07/16 06:30 - Constitutional Appears: No Acute Distress - Head Exam Head Exam: ATRAUMATIC - Eye Exam Eye Exam: PERRL - ENT Exam ENT Exam: Mucous Membranes Moist - Respiratory Exam Respiratory Exam: Clear to Ausculation Bilateral. absent: Rales, Wheezes - Cardiovascular Exam Cardiovascular Exam: Tachycardia, REGULAR RHYTHM, +S1, +S2 - GI/Abdominal Exam GI & Abdominal Exam: Soft. absent: Distended, Tenderness - Extremities Exam Extremities Exam: absent: Calf Tenderness - Back Exam Additional comments: sacral decub sacrum - Neurological Exam Neurological Exam: Altered Additional comments: obtunded - Skin Skin Exam: Dry, Warm Additional comments: sacral decub Assessment and Plan - Assessment and Plan (Free Text) Assessment: 61 F with end stage, stage IV colon cancer with mets to the brain, bone, and lungs, s/p CVA, seizure, intractable pain, anemia of chronic dx, gastritis, cauda equina syndrome, palliative colostomy, colonic stricture relieved with lysis of adhesions, s/p sepsis due to fungemia and neutropenic sepsis. Plan: - Cont supportive care - Pain control - Duoneb PRN - Hemoglobin of 6.3 this AM - cont conservative management - Cont Keppra, and valproate - Seizure precaution - Cont Ativan 2mg Q6H PRN - Cont Hydralazine 10mg IVP PRN - Cont Clinimix and protonix - Cont wound care - As per family the patient is DNR/DNI, to consider hospice care Case and plan was seen, reviewed and discussed in detail with Dr Hendricks.
[2016-12-10] MEDS: HYDROmorphone 1 mg/ml PCA 25 ML IV PRN (15:02)
--- NOTE | 2016-12-10 16:23 | PN ---
DATE: SUBJECTIVE: The patient is seen lying in bed. She is minimally responsive, she was mourning. She does not follow commands. Sister is at bedside. PHYSICAL EXAMINATION: GENERAL: Elderly lady lying in bed. VITAL SIGNS: Blood pressure 138/81, heart rate 114, respiratory rate 22, and temperature 98.6. HEENT: Normocephalic, atraumatic. NECK: Supple. No JVD. CARDIAC: S1 and S2. Regular rate and rhythm. No murmurs. No rubs. LUNGS: Bilateral rhonchi, equal expansion. No rales appreciated. ABDOMEN: Obese, distended, soft, positive colonostomy. Bowel sounds present. EXTREMITIES: 2+ pitting edema of the lower extremities. INTAKE/OUTPUT: 1396/1200. LABORATORY DATA: WBC 11, hemoglobin 6, hematocrit 20.6, and platelets 172. Sodium 142, potassium 4.0, chloride 107, CO2 32, BUN 21, creatinine 0.2, glucose 120, calcium 8.0, albumin 1.8, and corrected calcium is 9.5. CURRENT MEDICATIONS: Apresoline, Ativan, Dilaudid, DuoNeb, Keppra, TPN, Protonix, and Tylenol. ASSESSMENT: 1. Severe anemia. Hemoglobin is 6.3. 2. Resolved acute kidney injury. 3. Resolved hypokalemia. 4. Metastatic colon cancer. 5. Intractable pain. PLAN: 1. Continue current formulation of Hyperal. 2. Comfort care. 3. Discussed with sister at bedside regarding expectations. Strongly recommend comfort care only. Adele Griffin MD
--- NOTE | 2016-12-11 08:10 | CP.PCM.PN ---
<Cassie Arcos - Last Filed: 12/11/16 12:59> Subjective - Date & Time of Evaluation Date of Evaluation: 12/11/16 Time of Evaluation: 08:07 - Subjective Subjective: PGY-[address] Avalos Pt remains to have chest congestion No wound dressing change per wound care team x 2 weeks. Noted per RN notes: Yellow slough wound bed and slightly necrotic in the center. Objective - Vital Signs/Intake and Output Vital Signs (last 24 hours): Temp Pulse Resp BP Pulse Ox 97.8 F 102 H 18 112/67 100 12/10/16 22:12 12/11/16 04:32 12/10/16 22:12 12/10/16 22:12 12/10/16 22:12 Intake and Output: 12/11/16 12/11/16 06:59 18:59 Intake Total 2422 0 Output Total 500 500 Balance 1922 -500 - Medications Medications: Current Medications Acetaminophen (Tylenol 650 Mg Supp) 650 mg RC Q4H PRN PRN Reason: Fever >100.4 F Last Admin: 11/01/16 21:18 Dose: 650 mg Albuterol/Ipratropium (Duoneb 3 Mg/0.5 Mg (3 Ml) Ud) 3 ml IH [id number] PRN PRN Reason: Cough and congestion Last Admin: 12/10/16 10:17 Dose: 3 ml Collagenase (Santyl) 0 gm TOP DAILY [facility] Last Admin: 12/10/16 10:01 Dose: 1 applic Al Hydrox/Mg Hydrox/Simethicone 30 ml/Diphenhydramine HCl 75 mg/Lidocaine 30 ml 0 ml PO QID [facility] Last Admin: 12/10/16 21:38 Dose: Not Given Hydralazine HCl (Apresoline) 10 mg IVP Q4H PRN PRN Reason: Systolic Blood Pressure Levetiracetam 1,000 mg/ Sodium (Chloride) 110 mls @ 460 mls/hr IV Q12 [facility] Last Admin: 12/10/16 21:36 Dose: 460 mls/hr Valproate Sodium 500 mg/ (Sodium Chloride) 105 mls @ 100 mls/hr IVPB Q12 [facility] Last Admin: 12/10/16 21:35 Dose: 100 mls/hr Hydromorphone HCl (Dilaudid-Hp 1 Mg/Ml Office Professionals) 25 mls @ 0 mls/hr IV PRN PRN; Protocol; Per Protocol PRN Reason: CORSET MAKER PER MD ORDER Last Admin: 12/10/16 15:02 Dose: 1 mls/hr Multivitamins/Vitamin C 10 ml/Chromium/Copper/Manganese/Zinc 1 ml/ Amino Acids/ Electrolytes/Dextrose 2,011 mls @ 83 mls/hr IV .Q24H [facility] Stop: 12/11/16 17:59 Last Admin: 12/10/16 17:48 Dose: 83 mls/hr Lorazepam (Ativan) 2 mg IVP Q6 PRN; Protocol PRN Reason: Seizure activity Last Admin: 12/09/16 01:44 Dose: 2 mg Magnesium Hydroxide (Milk Of Magnesia) 30 ml PO DAILY PRN PRN Reason: skin irritation Last Admin: 12/02/16 14:09 Dose: 30 ml Multi-Ingredient Ointment (Hydrophor Oint) 0 gm TOP Q6H PRN PRN Reason: Dry lip Pantoprazole Sodium (Protonix Inj) 40 mg IVP DAILY [facility] Last Admin: 12/10/16 10:04 Dose: 40 mg - Labs Labs: 12/10/16 05:50 12/10/16 05:50 PT 12.7 Seconds (9.9-11.8) H 12/07/16 06:30 INR 1.18 (0.93-1.08) H 12/07/16 06:30 APTT 37.1 Seconds (23.7-30.8) H 12/07/16 06:30 - Constitutional Appears: Cachectic, Chronically Ill - Head Exam Head Exam: ATRAUMATIC, NORMAL INSPECTION, NORMOCEPHALIC - Eye Exam Eye Exam: PERRL - ENT Exam ENT Exam: Mucous Membranes Moist - Neck Exam Additional comments: supple - Respiratory Exam Respiratory Exam: Clear to Ausculation Bilateral. absent: Rales, Rhonchi, Wheezes - Cardiovascular Exam Cardiovascular Exam: REGULAR RHYTHM, +S1, +S2 - GI/Abdominal Exam GI & Abdominal Exam: Soft, Normal Bowel Sounds Additional comments: dark bilous stool in ostomy - Extremities Exam Extremities Exam: Normal Capillary Refill, Pedal Edema - Neurological Exam Additional comments: open eyes spontaously. arosable by touch - Psychiatric Exam Psychiatric exam: Flat Affect - Skin Skin Exam: Dry, Warm Assessment and Plan - Assessment and Plan (Free Text) Plan: Chest congestion likely from fluid overload, improved. VSS Sacral ulcer: Yellow slough wound bed and slightly necrotic in the center Encephalopathy due to occipital lobe lesions vs left parietal lobe acute infarcts vs metasatic lesions. Sepsis due to C. albicans Fungemia, probably from port-a-cath (removed on 11/12/16 ) Bacteremia with methicillin-resistant coagulase negative staph in repeated cx - R/O secondary to PICC line - R/O contamination (1 of 4 bottles had positive culture) Gram negative bacilli in urine with minor - minor removed (11/24) and new minor replaced Nose culture coagulase neg staphylococcus (11/24) Partial small bowel obstruction, persistent with colonic stricture S/P exploratory laparotomy, lysis of adhesions, repair of small bowel enterotomy and partial sigmoidectomy with end-colostomy (11/17/16) - Push enterotomy (11/24/16) - EGD and sigmoidoscopy (10/26/16) Acute stomatitis and mucositis, as well as esophageal ulcers (esophagitis) and enteritis - no CMV noted on biopsy sample of the esophageal ulcers - consider Susy Esophagitis Neutropenia probably from chemotherapy, resolved HTN 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 S/P colectomy in 2014 GI bleed, s/p palliative ostomy, and push enterotomy. No plan to transfuse at this moment history of UTI GERD anxiety - ABX history - s/p mycamine (day 14 since port removal) - Then switch to PO diflucan for another 2 weeks for total of 4 week antifungal tx (Just on PO diflucan x 1 day on 11/29. Pt did not take PO med due to AMS) - Back on IV mycamine due to no PO (Started on 12/03, and stop after 1 dose) - Now observe off ABX - Continue observe respiratory status, VS, and labs - TPN increases rise of infection in blood - Off daptomycin for bactermeia r/o picc, r/o contamination (1/4 bottles) - repeated urine cx negative - Hold valganciclovir, no CMV on esophagus ulcer - L picc was placed on 10/31/16 which was not replaced due to coagulopathy and bleeding. s/r/d/w Dr. Avalos <Rosalio Avalos - Last Filed: 12/11/16 13:22> Objective - Vital Signs/Intake and Output Vital Signs (last 24 hours): Temp Pulse Resp BP Pulse Ox 97.9 F 134 H 20 135/91 H 98 12/11/16 08:07 12/11/16 08:07 12/11/16 08:07 12/11/16 08:07 12/11/16 08:07 Intake and Output: 12/11/16 12/11/16 06:59 18:59 Intake Total 2422 0 Output Total 500 500 Balance 1922 -500 - Medications Medications: Current Medications Acetaminophen (Tylenol 650 Mg Supp) 650 mg RC Q4H PRN PRN Reason: Fever >100.4 F Last Admin: 11/01/16 21:18 Dose: 650 mg Albuterol/Ipratropium (Duoneb 3 Mg/0.5 Mg (3 Ml) Ud) 3 ml IH [id number] PRN PRN Reason: Cough and congestion Last Admin: 12/11/16 12:53 Dose: 3 ml Collagenase (Santyl) 0 gm TOP DAILY [facility] Last Admin: 12/11/16 11:12 Dose: 1 applic Al Hydrox/Mg Hydrox/Simethicone 30 ml/Diphenhydramine HCl 75 mg/Lidocaine 30 ml 0 ml PO QID [facility] Last Admin: 12/11/16 09:05 Dose: Not Given Hydralazine HCl (Apresoline) 10 mg IVP Q4H PRN PRN Reason: Systolic Blood Pressure Levetiracetam 1,000 mg/ Sodium (Chloride) 110 mls @ 460 mls/hr IV Q12 [facility] Last Admin: 12/11/16 10:07 Dose: 460 mls/hr Valproate Sodium 500 mg/ (Sodium Chloride) 105 mls @ 100 mls/hr IVPB Q12 [facility] Last Admin: 12/11/16 11:01 Dose: 100 mls/hr Hydromorphone HCl (Dilaudid-Hp 1 Mg/Ml [employer]) 25 mls @ 0 mls/hr IV PRN PRN; Protocol; Per Protocol PRN Reason: CORSET MAKER PER MD ORDER Last Admin: 12/11/16 11:46 Dose: 1 mls/hr Multivitamins/Vitamin C 10 ml/Chromium/Copper/Manganese/Zinc 1 ml/ Amino Acids/ Electrolytes/Dextrose 2,011 mls @ 83 mls/hr IV .Q24H [facility] Stop: 12/11/16 17:59 Last Admin: 12/10/16 17:48 Dose: 83 mls/hr Lorazepam (Ativan) 2 mg IVP Q6 PRN; Protocol PRN Reason: Seizure activity Last Admin: 12/09/16 01:44 Dose: 2 mg Magnesium Hydroxide (Milk Of Magnesia) 30 ml PO DAILY PRN PRN Reason: skin irritation Last Admin: 12/02/16 14:09 Dose: 30 ml Multi-Ingredient Ointment (Hydrophor Oint) 0 gm TOP Q6H PRN PRN Reason: Dry lip Pantoprazole Sodium (Protonix Inj) 40 mg IVP DAILY [facility] Last Admin: 12/11/16 10:07 Dose: 40 mg - Labs Labs: 12/10/16 05:50 12/11/16 11:29 PT 12.7 Seconds (9.9-11.8) H 12/07/16 06:30 INR 1.18 (0.93-1.08) H 12/07/16 06:30 APTT 37.1 Seconds (23.7-30.8) H 12/07/16 06:30 Assessment and Plan - Assessment and Plan (Free Text) Plan: Attending attestation (Infectious diseases) Patient seen and examined, discussed with territory sales manager medical. Agree with above findings. In addition, the patient is S/P treatment for Candidemia from port (S/ P removal of the port). Will continue to monitor off antibiotics ,antivirals and antifungals since she is at risk for nosocomial infections. Overall prognosis is poor for this patient with metastatic colon cancer, with probable brain metastases.
[2016-12-11] MEDS: Aluminum Hydroxide/Magnesium 30 ML, DiphenhydrAMINE 75 MG, Lidocaine 2% Viscous 30 ML PO SCH ×4 (09:05→21:51)
[2016-12-11] MEDS: levETIRAcetam 1,000 MG in Sodium Chloride 0.9% 100 ML IV SCH ×2 (10:07→21:50)
[2016-12-11] MEDS: Valproate 500 MG in Sodium Chloride 0.9% 100 ML IVPB SCH ×2 (11:01→21:50)
--- NOTE | 2016-12-11 11:01 | CP.PCM.PN ---
Subjective - Date & Time of Evaluation Date of Evaluation: 12/11/16 Time of Evaluation: 07:00 - Subjective Subjective: PGY-[address] Hendricks Patient is very lethargic and. She is not oriented. As per daughter she opened her eyes in the morning. No extremities twitching. ROS unobtainable. Objective - Vital Signs/Intake and Output Vital Signs (last 24 hours): Temp Pulse Resp BP Pulse Ox 97.9 F 134 H 20 135/91 H 98 12/11/16 08:07 12/11/16 08:07 12/11/16 08:07 12/11/16 08:07 12/11/16 08:07 Intake and Output: 12/11/16 12/11/16 06:59 18:59 Intake Total 2422 0 Output Total 500 500 Balance 1922 -500 - Medications Medications: Current Medications Acetaminophen (Tylenol 650 Mg Supp) 650 mg RC Q4H PRN PRN Reason: Fever >100.4 F Last Admin: 11/01/16 21:18 Dose: 650 mg Albuterol/Ipratropium (Duoneb 3 Mg/0.5 Mg (3 Ml) Ud) 3 ml IH [id number] PRN PRN Reason: Cough and congestion Last Admin: 12/10/16 10:17 Dose: 3 ml Collagenase (Santyl) 0 gm TOP DAILY [facility] Last Admin: 12/10/16 10:01 Dose: 1 applic Al Hydrox/Mg Hydrox/Simethicone 30 ml/Diphenhydramine HCl 75 mg/Lidocaine 30 ml 0 ml PO QID [facility] Last Admin: 12/11/16 09:05 Dose: Not Given Hydralazine HCl (Apresoline) 10 mg IVP Q4H PRN PRN Reason: Systolic Blood Pressure Levetiracetam 1,000 mg/ Sodium (Chloride) 110 mls @ 460 mls/hr IV Q12 [facility] Last Admin: 12/11/16 10:07 Dose: 460 mls/hr Valproate Sodium 500 mg/ (Sodium Chloride) 105 mls @ 100 mls/hr IVPB Q12 [facility] Last Admin: 12/10/16 21:35 Dose: 100 mls/hr Hydromorphone HCl (Dilaudid-Hp 1 Mg/Ml Auditor Appraiser) 25 mls @ 0 mls/hr IV PRN PRN; Protocol; Per Protocol PRN Reason: LEAD CAREGIVER PER MD ORDER Last Admin: 12/10/16 15:02 Dose: 1 mls/hr Multivitamins/Vitamin C 10 ml/Chromium/Copper/Manganese/Zinc 1 ml/ Amino Acids/ Electrolytes/Dextrose 2,011 mls @ 83 mls/hr IV .Q24H [facility] Stop: 12/11/16 17:59 Last Admin: 12/10/16 17:48 Dose: 83 mls/hr Lorazepam (Ativan) 2 mg IVP Q6 PRN; Protocol PRN Reason: Seizure activity Last Admin: 12/09/16 01:44 Dose: 2 mg Magnesium Hydroxide (Milk Of Magnesia) 30 ml PO DAILY PRN PRN Reason: skin irritation Last Admin: 12/02/16 14:09 Dose: 30 ml Multi-Ingredient Ointment (Hydrophor Oint) 0 gm TOP Q6H PRN PRN Reason: Dry lip Pantoprazole Sodium (Protonix Inj) 40 mg IVP DAILY [facility] Last Admin: 12/10/16 10:04 Dose: 40 mg - Labs Labs: 12/10/16 05:50 12/10/16 05:50 PT 12.7 Seconds (9.9-11.8) H 12/07/16 06:30 INR 1.18 (0.93-1.08) H 12/07/16 06:30 APTT 37.1 Seconds (23.7-30.8) H 12/07/16 06:30 - Constitutional Appears: No Acute Distress - Head Exam Head Exam: ATRAUMATIC - Eye Exam Pupil Exam: PERRL - ENT Exam ENT Exam: Mucous Membranes Moist - Respiratory Exam Respiratory Exam: Clear to Ausculation Bilateral. absent: Rales, Wheezes - Cardiovascular Exam Cardiovascular Exam: RRR, +S1, +S2 - GI/Abdominal Exam GI & Abdominal Exam: Soft. absent: Distended, Tenderness - Back Exam Back Exam: absent: CVA tenderness (L) - Skin Skin Exam: Dry, Warm - Additional Findings Additional findings: sacral decub ulcer Assessment and Plan - Assessment and Plan (Free Text) Assessment: 61 F with end stage, stage IV colon cancer with mets to the brain, bone, and lungs, s/p CVA, seizure, intractable pain, anemia of chronic dx, gastritis, cauda equina syndrome, palliative colostomy, colonic stricture relieved with lysis of adhesions, s/p sepsis due to fungemia and neutropenic sepsis. Plan: - Cont supportive care - Pain control and Duoneb PRN - Hemoglobin of 6.3 yesterday f/u this am blood work - Continue Keppra, and Valproate - Seizure precaution - Cont Ativan 2mg Q6H PRN - Cont Hydralazine 10mg IVP PRN for blood pressure control - Cont TPN clinimax - Cont Protonix - Cont wound care - apply santyl to affected area - As per family the patient is DNR/DNI, to consider hospice care Case and plan was seen, reviewed and discussed in detail with Dr Hendricks.
[2016-12-11] MEDS: Collagenase 250 Units/gm Ointment(30 gm) TOP SCH (11:12)
[2016-12-11] MEDS: HYDROmorphone 1 mg/ml PCA 25 ML IV PRN (11:46)
[2016-12-11 12:07] LABS: ALB/GLOB RATIO 0.7 (1.1-1.8); ALBUMIN 1.7 g/dL (3.0-4.8); ALT/SGPT 21 U/L (7-56); AST/SGOT 12 U/L (15-39); BLOOD UREA NITROGEN 22 mg/dL (7-21); CALCIUM 8.4 mg/dL (8.4-10.5); GFR AFRICAN-AMERICAN > 60; GFR NON-AFRICAN AMERICAN > 60
[2016-12-11] MEDS: Albuterol-Ipratrop 3 mg / 0.5 (3 ml) UD IH PRN (12:53)
--- NOTE | 2016-12-11 13:15 | CP.PCM.PN ---
Subjective - Date & Time of Evaluation Date of Evaluation: 12/11/16 Time of Evaluation: 10:00 - Subjective Subjective: S&E at bedside, patient is very lethargic, not as responsive. No twitching observed. No acute overnight events reported. Hbg 6.3 noted, no reports of overt GI bleed. Objective - Vital Signs/Intake and Output Vital Signs (last 24 hours): Temp Pulse Resp BP Pulse Ox 97.9 F 134 H 20 135/91 H 98 12/11/16 08:07 12/11/16 08:07 12/11/16 08:07 12/11/16 08:07 12/11/16 08:07 Intake and Output: 12/11/16 12/11/16 06:59 18:59 Intake Total 2422 0 Output Total 500 500 Balance 1922 -500 - Medications Medications: Current Medications Acetaminophen (Tylenol 650 Mg Supp) 650 mg RC Q4H PRN PRN Reason: Fever >100.4 F Last Admin: 11/01/16 21:18 Dose: 650 mg Albuterol/Ipratropium (Duoneb 3 Mg/0.5 Mg (3 Ml) Ud) 3 ml IH [id number] PRN PRN Reason: Cough and congestion Last Admin: 12/11/16 12:53 Dose: 3 ml Collagenase (Santyl) 0 gm TOP DAILY [facility] Last Admin: 12/11/16 11:12 Dose: 1 applic Al Hydrox/Mg Hydrox/Simethicone 30 ml/Diphenhydramine HCl 75 mg/Lidocaine 30 ml 0 ml PO QID [facility] Last Admin: 12/11/16 09:05 Dose: Not Given Hydralazine HCl (Apresoline) 10 mg IVP Q4H PRN PRN Reason: Systolic Blood Pressure Levetiracetam 1,000 mg/ Sodium (Chloride) 110 mls @ 460 mls/hr IV Q12 [facility] Last Admin: 12/11/16 10:07 Dose: 460 mls/hr Valproate Sodium 500 mg/ (Sodium Chloride) 105 mls @ 100 mls/hr IVPB Q12 [facility] Last Admin: 12/11/16 11:01 Dose: 100 mls/hr Hydromorphone HCl (Dilaudid-Hp 1 Mg/Ml Senior Sql Developer) 25 mls @ 0 mls/hr IV PRN PRN; Protocol; Per Protocol PRN Reason: IN SCHOOL SUSPENSION COORDINATOR PER MD ORDER Last Admin: 12/11/16 11:46 Dose: 1 mls/hr Multivitamins/Vitamin C 10 ml/Chromium/Copper/Manganese/Zinc 1 ml/ Amino Acids/ Electrolytes/Dextrose 2,011 mls @ 83 mls/hr IV .Q24H [facility] Stop: 12/11/16 17:59 Last Admin: 12/10/16 17:48 Dose: 83 mls/hr Lorazepam (Ativan) 2 mg IVP Q6 PRN; Protocol PRN Reason: Seizure activity Last Admin: 12/09/16 01:44 Dose: 2 mg Magnesium Hydroxide (Milk Of Magnesia) 30 ml PO DAILY PRN PRN Reason: skin irritation Last Admin: 12/02/16 14:09 Dose: 30 ml Multi-Ingredient Ointment (Hydrophor Oint) 0 gm TOP Q6H PRN PRN Reason: Dry lip Pantoprazole Sodium (Protonix Inj) 40 mg IVP DAILY [facility] Last Admin: 12/11/16 10:07 Dose: 40 mg - Labs Labs: 12/10/16 05:50 12/11/16 11:29 PT 12.7 Seconds (9.9-11.8) H 12/07/16 06:30 INR 1.18 (0.93-1.08) H 12/07/16 06:30 APTT 37.1 Seconds (23.7-30.8) H 12/07/16 06:30 - Constitutional Appears: Chronically Ill - Eye Exam Eye Exam: absent: Scleral icterus - ENT Exam ENT Exam: Mucous Membranes Moist - Neck Exam Neck Exam: Normal Inspection - Respiratory Exam Respiratory Exam: NORMAL BREATHING PATTERN. absent: Respiratory Distress - Cardiovascular Exam Cardiovascular Exam: +S1, +S2 - GI/Abdominal Exam GI & Abdominal Exam: Soft, Hypoactive Bowel Sounds. absent: Guarding, Rebound Additional comments: (+) colostomy: dark bilious stool noted. - Extremities Exam Extremities Exam: Pedal Edema - Neurological Exam Neurological Exam: Altered - Skin Skin Exam: Dry, Warm Assessment and Plan - Assessment and Plan (Free Text) Assessment: ASSESSMENT: Metastatic Stage IV Colon Cancer, w/ Brain Metastasis CVA Seizures S/P Exploratory laparotomy with lysis of adhesions and repair of small bowel enterotomy and partial sigmoidectomy with end colostomy GI Bleed, S/P push enteroscopy: negative for bleed Anemia with multiple blood transfusions Elevated LFT, mainly alk phos, abdominal US done, 10/12 (+) sludge, no GB stones, CBD 5.0 cm, maybe medication induced, improving Fungemia PLAN: NPO, on TPN On Keppra/Valproate Sodium PPI monitor h/h, and electrolytes DVT prophylaxsis, scd/teds seizure precautions as per oncology, neurology,palliative care continue supportive care DNR/DNI, family still considering hospice. Seen and discussed with Dr. Null.
[2016-12-11 13:54] LABS: BASO # 0.03 K/mm3 (0.0-2.0); BASO % 0.2 % (0.0-3.0); EOS % 0.1 % (1.5-5.0); GRAN % 89.5 % (50.0-68.0); LYMPH # 0.7 (1.2-3.4); LYMPH % 4.5 % (22.0-35.0); MONO # 0.8 (0.1-0.6); MONO % 5.7 % (1.0-6.0)
[2016-12-11 13:58] LABS: RBC 2.32 10^6/uL (3.5-6.1); WHITE BLOOD COUNT 15.3 10^3/ul (4.5-11.0)
[2016-12-11 13:59] LABS: MEAN CELL VOLUME 99.6 fL (80.0-105.0); MEAN CORPUSCULAR HEMOGLOBIN 31.5 pg (25.0-35.0); MEAN CORPUSCULAR HGB CONC 31.6 g/dl (31.0-37.0); MEAN PLATELET VOLUME 10.9 fl (7.0-11.0); PLATELET COUNT 152 10^3/uL (120.0-450.0); RED CELL DISTRIBUTION WIDTH 16.9 % (11.5-14.5)
[2016-12-11 14:02] LABS: HEMOGLOBIN 7.3 gm/dL (12.0-16.0)
--- NOTE | 2016-12-11 15:57 | PN ---
SUBJECTIVE: The patient is currently seen lying comfortable in bed asleep. She remains on hyperalimentation. She remains on pain medication. Family members at the bedside. MEDICATIONS: Medication list reviewed. The patient is currently on hydralazine, Ativan, Dilaudid [employer] WORK[employer] pump, DuoNeb, Hydrophor ointment, levetiracetam, milk of magnesia, hyperalimentation, Protonix, Santyl, Tylenol p.r.n., valproate. OBJECTIVE: INTAKE/OUTPUT: Intake 2422, output 900. VITAL SIGNS: Blood pressure 135/91, temperature 97.9, pulse rate 102, respiratory rate 20. HEENT EXAM: Normocephalic, atraumatic. Conjunctivae are pale. Sclerae are nonicteric. NECK: Supple. No neck vein distention. CHEST: Clear to auscultation and percussion. No rales. No rhonchi. No wheezing. CARDIOVASCULAR: Shows irregular rate and rhythm without murmurs, rubs or gallops noted. ABDOMEN: Soft. Positive colostomy. Bowel sounds normal. No rebound. No guarding. EXTREMITIES: Show 1+ to 2+ pitting edema of her lower extremity. No cyanosis. No clubbing. Diminished pulses secondary to edema. LABORATORY DATA AND IMAGING: CBC: White blood cell count today 15.3, hemoglobin 7.3 up from 6.3 with platelet count of 152,000. Chemistry showed normal electrolytes, BUN 22 with creatinine of 0.2, glucose 106, calcium 8.4. Albumin 1.7 despite hyperalimentation. ASSESSMENT: 1. Status post acute renal failure, BUN and creatinine are within normal range. 2. Stage IV colon cancer with mets, status post palliative colostomy. 3. History of seizure activity, appears to be controlled on medication. The patient no longer has any twitching. 4. Status post hypomagnesemia and hypokalemia. With addition of electrolytes to hyperal, this problem seems to have resolved. 5. History of anemia and thrombocytopenia secondary to malignancy, appears to be stable. PLAN: 1. Continue present hyperalimentation. The patient's electrolytes appear to be in order. 2. Continue supportive measures and comfort care. 3. From my standpoint, labs can be monitored on an [id number] basis. Kyle Brooks MD [facility] # [id number]
--- NOTE | 2016-12-11 23:51 | CP.PCM.PN ---
Subjective - Date & Time of Evaluation Date of Evaluation: 12/11/16 Time of Evaluation: 23:50 - Subjective Subjective: Patient was seen at bedside because as per nurse Phan patient was having persistent tachycardia reaching as high as 145/min. Patient has no complaints. Denies chest pain, sob, palpitations. Has no pain , not anxious. When I came and saw her , her heart rate was only 108 per minute. Medical record was reviewed. This 61 year old white woman was admitted with weakness and non bloody diarrhoea. Has PMH of Stage IV colon cancer,Cauda Equina syndrome,S/P radiation therapy, Anemia,Hypomagnesemia,Constipation,Urinary retention. Objective - Vital Signs/Intake and Output Vital Signs (last 24 hours): Temp Pulse Resp BP Pulse Ox 97 F L 139 H 22 116/68 98 12/11/16 16:00 12/11/16 18:00 12/11/16 16:00 12/11/16 16:00 12/11/16 16:00 Intake and Output: 12/11/16 12/12/16 18:59 06:59 Intake Total 0 0 Output Total 500 450 Balance -500 -450 - Medications Medications: Current Medications Acetaminophen (Tylenol 650 Mg Supp) 650 mg RC Q4H PRN PRN Reason: Fever >100.4 F Last Admin: 11/01/16 21:18 Dose: 650 mg Albuterol/Ipratropium (Duoneb 3 Mg/0.5 Mg (3 Ml) Ud) 3 ml IH [id number] PRN PRN Reason: Cough and congestion Last Admin: 12/11/16 12:53 Dose: 3 ml Collagenase (Santyl) 0 gm TOP DAILY RODRÍGUEZ Last Admin: 12/11/16 11:12 Dose: 1 applic Al Hydrox/Mg Hydrox/Simethicone 30 ml/Diphenhydramine HCl 75 mg/Lidocaine 30 ml 0 ml PO QID RODRÍGUEZ Last Admin: 12/11/16 21:51 Dose: Not Given Hydralazine HCl (Apresoline) 10 mg IVP Q4H PRN PRN Reason: Systolic Blood Pressure Levetiracetam 1,000 mg/ Sodium (Chloride) 110 mls @ 460 mls/hr IV Q12 RODRÍGUEZ Last Admin: 12/11/16 21:50 Dose: 460 mls/hr Valproate Sodium 500 mg/ (Sodium Chloride) 105 mls @ 100 mls/hr IVPB Q12 RODRÍGUEZ Last Admin: 12/11/16 21:50 Dose: 100 mls/hr Hydromorphone HCl (Dilaudid-Hp 1 Mg/Ml Spreader Box Operator) 25 mls @ 0 mls/hr IV PRN PRN; Protocol; Per Protocol PRN Reason: INVESTIGATIONS CHIEF PER MD ORDER Last Admin: 12/11/16 11:46 Dose: 1 mls/hr Multivitamins/Vitamin C 10 ml/Chromium/Copper/Manganese/Zinc 1 ml/ Amino Acids/ Electrolytes/Dextrose 2,011 mls @ 83 mls/hr IV .Q24H RODRÍGUEZ Stop: 12/14/16 17:59 Last Admin: 12/11/16 17:58 Dose: 83 mls/hr Lorazepam (Ativan) 2 mg IVP Q6 PRN; Protocol PRN Reason: Seizure activity Last Admin: 12/09/16 01:44 Dose: 2 mg Magnesium Hydroxide (Milk Of Magnesia) 30 ml PO DAILY PRN PRN Reason: skin irritation Last Admin: 12/02/16 14:09 Dose: 30 ml Multi-Ingredient Ointment (Hydrophor Oint) 0 gm TOP Q6H PRN PRN Reason: Dry lip Pantoprazole Sodium (Protonix Inj) 40 mg IVP DAILY RODRÍGUEZ Last Admin: 12/11/16 10:07 Dose: 40 mg - Labs Labs: 12/11/16 13:30 12/11/16 11:29 PT 12.7 Seconds (9.9-11.8) H 12/07/16 06:30 INR 1.18 (0.93-1.08) H 12/07/16 06:30 APTT 37.1 Seconds (23.7-30.8) H 12/07/16 06:30 Laboratory Last Values WBC 15.3 10^3/ul (4.5-11.0) H D 12/11/16 13:30 RBC 2.32 10^6/uL (3.5-6.1) L 12/11/16 13:30 Hgb 7.3 gm/dL (12.0-16.0) L 12/11/16 13:30 Hct 23.1 % (36.0-48.0) L 12/11/16 13:30 MCV 99.6 fL (80.0-105.0) 12/11/16 13:30 MCH 31.5 pg (25.0-35.0) 12/11/16 13:30 MCHC 31.6 g/dl (31.0-37.0) 12/11/16 13:30 RDW 16.9 % (11.5-14.5) H 12/11/16 13:30 Plt Count 152 10^3/uL (120.0-450.0) 12/11/16 13:30 Manual Plt Count 104 K/mm3 (120-450) L 11/19/16 06:30 MPV 10.9 fl (7.0-11.0) 12/11/16 13:30 Gran % 89.5 % (50.0-68.0) H 12/11/16 13:30 Lymph % (Auto) 4.5 % (22.0-35.0) L 12/11/16 13:30 Gaston % (Auto) 5.7 % (1.0-6.0) 12/11/16 13:30 Eos % (Auto) 0.1 % (1.5-5.0) L 12/11/16 13:30 Baso % (Auto) 0.2 % (0.0-3.0) 12/11/16 13:30 Gran # 13.10 (1.4-6.5) H 12/11/16 13:30 Lymph # 0.7 (1.2-3.4) L 12/11/16 13:30 Gaston # 0.8 (0.1-0.6) H 12/11/16 13:30 Eos # 0.0 (0.0-0.7) 12/11/16 13:30 Baso # 0.03 K/mm3 (0.0-2.0) 12/11/16 13:30 Corrected WBC (Man) Cancelled 10/11/16 06:15 Neutrophils % (Manual) 88 % (50.0-70.0) H 12/03/16 07:30 Band Neutrophils % 5 % (0-2) H 12/03/16 07:30 Lymphocytes % (Manual) 1 % (22.0-35.0) L 12/03/16 07:30 Atypical Lymphs % 2 % (0.0-0.0) H 10/18/16 06:00 Monocytes % (Manual) 5 % (1.0-6.0) 12/03/16 07:30 Eosinophils % (Manual) 5 % (0.0-3.0) H 10/12/16 15:27 Basophils % (Manual) 1 % (0.0-1.0) 10/30/16 01:10 Metamyelocytes % 1 % 10/12/16 15:27 Myelocytes % 1 % 12/03/16 07:30 Promyelocytes % Cancelled 10/11/16 06:15 Nucleated RBC % 1 % 10/17/16 06:00 Hypersegmented Polys Cancelled 10/11/16 06:15 Immature Lymphocytes 6 % 10/12/16 15:27 Blast Cells Cancelled 10/11/16 06:15 Smudge Cells Present 10/20/16 07:47 Toxic Granulation 1+ 10/30/16 01:10 Dohle Bodies Cancelled 10/11/16 06:15 Hardeep Rods Cancelled 10/11/16 06:15 Platelet Evaluation Normal (NORMAL) 12/03/16 07:30 Plt Clumps, EDTA Cancelled 10/11/16 06:15 Large Platelets Present 10/20/16 07:47 Giant Platelets Cancelled 10/11/16 06:15 Polychromasia Slight 10/18/16 06:00 Hypochromasia Slight 10/20/16 07:47 Hyperchromasia Cancelled 10/11/16 06:15 Poikilocytosis (manual Slight 10/20/16 07:47 Basophilic Stippling Cancelled 10/11/16 06:15 Anisocytosis (manual) Slight 12/01/16 05:00 Microcytosis (manual) Cancelled 10/11/16 06:15 Macrocytosis (manual) Cancelled 10/11/16 06:15 Spherocytes Cancelled 10/11/16 06:15 Sickle Cells Cancelled 10/11/16 06:15 Target Cells Cancelled 10/11/16 06:15 Tear Drop Cells Slight 10/20/16 07:47 Ovalocytes Slight 10/20/16 07:47 Stomatocytes Cancelled 10/11/16 06:15 Helmet Cells Cancelled 10/11/16 06:15 Yantis Rings Cancelled 10/11/16 06:15 [place] Cells Cancelled 10/11/16 06:15 Acanthocytes (Spur) Cancelled 10/11/16 06:15 Rouleaux Cancelled 10/11/16 06:15 Retic Count TEST NOT PERFORMED 10/12/16 15:27 Haptoglobin 252 mg/dL (43-212) H 10/12/16 15:27 PT 12.7 Seconds (9.9-11.8) H 12/07/16 06:30 INR 1.18 (0.93-1.08) H 12/07/16 06:30 APTT 37.1 Seconds (23.7-30.8) H 12/07/16 06:30 Fibrinogen 220.8 mg/dL (187-400) 11/25/16 19:10 Fibrin Degrad Products >10 <40 ug/ml (< 10 ug/mL) 11/17/16 14:00 D-Dimer, Quantitative 3.15 mg/L FEU (0-0.50) H 11/11/16 20:40 pCO2 38 mm/Hg (35-45) 11/27/16 19:30 pO2 98 mm/Hg (30-55) H 11/27/16 19:40 HCO3 24.1 mmol/L (21-28) 11/27/16 19:30 ABG pH 7.41 (7.35-7.45) 11/27/16 19:30 ABG Total CO2 25.3 mmol.L (22-28) 11/27/16 19:30 ABG O2 Saturation 98.8 % (95-98) H 11/27/16 19:30 ABG O2 Content 19.2 ML/dl (15-23) 11/27/16 19:30 ABG Base Excess -0.3 mmol/L (-2.0-3.0) 11/27/16 19:30 ABG Hemoglobin 14.1 g/dL (11.7-17.4) 11/27/16 19:30 ABG Carboxyhemoglobin 1.6 % (0.5-1.5) H 11/27/16 19:30 POC ABG HHb (Measured) 1.2 % (0-5) 11/27/16 19:30 ABG Methemoglobin 0.9 % (0.0-3.0) 11/27/16 19:30 ABG O2 Capacity 19.4 mL/dl (16-24) 11/27/16 19:30 ABG Potassium 4.4 mmol/L (3.6-5.2) 11/23/16 11:50 VBG pH 7.44 (7.32-7.43) H 11/27/16 19:40 VBG pCO2 43.0 (40-60) 11/27/16 19:40 VBG HCO3 29.2 mmol/l (21-28) H 11/27/16 19:40 VBG Total CO2 30.5 mmol.L (22-28) H 11/27/16 19:40 VBG O2 Sat (Calc) 98.6 % (40-65) H 11/27/16 19:40 VBG Base Excess 4.4 mmol/L (0.0-2.0) H 11/27/16 19:40 VBG Potassium 3.8 mmol/L (3.6-5.2) 11/27/16 19:40 Hgb O2 Saturation 96.2 % (95.0-98.0) 11/27/16 19:30 Sodium 146.0 mmol/L (132-148) 11/27/16 19:40 Chloride 112.0 mmol/L (98-107) H 11/27/16 19:40 Glucose 118 mg/dl (65-105) H 11/27/16 19:40 Lactate 2.7 mmol/L (0.7-2.1) H 11/27/16 19:40 FiO2 21.0 % 11/27/16 19:40 Sodium 144 mmol/L (132-148) 12/11/16 11:29 Potassium 4.6 mmol/L (3.6-5.0) 12/11/16 11:29 Chloride 105 mmol/L (95-110) 12/11/16 11:29 Carbon Dioxide 31 mmol/L (21-33) 12/11/16 11:29 Anion Gap 13 (10-20) 12/11/16 11:29 BUN 22 mg/dL (7-21) H 12/11/16 11:29 Creatinine 0.2 mg/dL (0.5-1.4) L 12/11/16 11:29 Est GFR ( Amer) > 60 12/11/16 11:29 Est GFR (Non-Af Amer) > 60 12/11/16 11:29 POC Glucose (mg/dL) 125 mg/dL (65-110) H 11/27/16 19:20 Random Glucose 106 mg/dL (70-110) 12/11/16 11:29 Lactic Acid 0.8 mmol/L (0.7-2.1) 10/26/16 16:00 Calcium 8.4 mg/dL (8.4-10.5) 12/11/16 11:29 Ionized Calcium 5.0 mg/dL (4.80-5.60) 10/27/16 12:07 Phosphorus 2.8 mg/dL (2.5-4.5) 12/05/16 06:00 Magnesium 1.6 mg/dL (1.7-2.2) L 12/08/16 06:00 Total Bilirubin 0.2 mg/dL (0.2-1.3) 12/11/16 11:29 Direct Bilirubin 0.5 mg/dL (0.0-0.4) H 11/29/16 14:13 AST 12 U/L (15-39) L 12/11/16 11:29 ALT 21 U/L (7-56) 12/11/16 11:29 Alkaline Phosphatase 278 U/L (38-133) H 12/11/16 11:29 Lactate Dehydrogenase 585 U/L (333-699) 10/11/16 21:45 Total Creatine Kinase < 20 U/L (35-230) L 11/28/16 08:01 Troponin I 0.04 ng/mL D 10/09/16 13:00 Total Protein 4.0 g/dL (5.8-8.3) L 12/11/16 11:29 Albumin 1.7 g/dL (3.0-4.8) L 12/11/16 11:29 Globulin 2.3 gm/dL 12/11/16 11:29 Albumin/Globulin Ratio 0.7 (1.1-1.8) L 12/11/16 11:29 Amylase < 30 U/L (35-125) L 10/09/16 13:00 Lipase < 10 U/L (23-300) L 10/09/16 13:00 Carcinoembryonic Ag 20.9 ng/mL (0.0-3.0) H 11/30/16 05:20 CA 19-9 Antigen < 1.4 U/mL (0-37) 11/30/16 05:20 25-OH Vitamin D Total < 12.8 NG/ML (30.0-100.0) L 10/27/16 12:07 Procalcitonin 5.03 NG/ML (0.19-0.49) H 10/28/16 14:15 TSH 3rd Generation 0.38 mIU/mL (0.46-4.68) L 11/01/16 06:20 Arterial Blood Potassium 4.4 mmol/L (3.6-5.2) 11/23/16 11:50 Venous Blood Potassium 3.8 mmol/L (3.6-5.2) 11/27/16 19:40 Urine Color Yellow (YELLOW) 10/29/16 11:30 Urine Appearance Sl cloudy (CLEAR) 10/29/16 11:30 Urine pH 5.5 (4.7-8.0) 10/29/16 11:30 Ur Specific [place] 1.015 (1.005-1.035) 10/29/16 11:30 Urine Protein 30 mg/dL (<30 mg/dL) H 10/29/16 11:30 Urine Glucose (UA) Negative mg/dL (NEGATIVE) 10/29/16 11:30 Urine Ketones Negative mg/dL (NEGATIVE) 10/29/16 11:30 Urine Blood Large (NEGATIVE) H 10/29/16 11:30 Urine Nitrate Negative (NEGATIVE) 10/29/16 11:30 Urine Bilirubin Negative (NEGATIVE) 10/29/16 11:30 Urine Urobilinogen 0.2 E.U./dL (<1 E.U./dL) 10/29/16 11:30 Ur Leukocyte Esterase Negative Vincenzo/uL (NEGATIVE) 10/29/16 11:30 Urine RBC 15 - 20 /hpf (0-2) 10/29/16 11:30 Urine WBC 5 - 10 /hpf (0-6) 10/29/16 11:30 Ur Epithelial Cells 0 - 2 /hpf (0-5) 10/29/16 11:30 Amorphous Sediment Trace 10/28/16 13:10 Urine Bacteria Few (NEG) 10/29/16 11:30 Hyaline Casts 2 - 5 /hpf 10/09/16 18:30 Coarse Granular Casts Trace /hpf (0-2) H 10/29/16 11:30 Stool Occult Blood Positive (NEGATIVE) H 10/19/16 13:50 Random Vancomycin 8.0 ug/mL (20.0-40.0) L 10/11/16 10:30 CMV Specimen Source Plasma 11/03/16 06:00 CMV DNA Quant PCR <200 IU/mL 11/03/16 06:00 CMV Qnt PCR log IU/mL <2.30 Log IU/mL 11/03/16 06:00 Blood Type A POSITIVE 12/01/16 17:57 Antibody Screen Negative 12/01/16 17:57 EMILY, Poly Interpret Positive (NEGATIVE) H 10/11/16 22:06 Indirect Antiglob Test Negative 10/11/16 22:06 Crossmatch See Detail 11/23/16 11:15 BBK History Checked Patient has bt 12/01/16 17:57 - Constitutional Appears: Well, No Acute Distress - Head Exam Head Exam: ATRAUMATIC, NORMAL INSPECTION, NORMOCEPHALIC - Eye Exam Eye Exam: Normal appearance - ENT Exam ENT Exam: Normal External Ear Exam - Neck Exam Neck Exam: Normal Inspection - Respiratory Exam Respiratory Exam: NORMAL BREATHING PATTERN - Cardiovascular Exam Cardiovascular Exam: absent: JVD - GI/Abdominal Exam GI & Abdominal Exam: absent: Distended - Rectal Exam Rectal Exam: Deferred - Exam Additional comments: Deferred. - Extremities Exam Extremities Exam: Normal Inspection - Back Exam Back Exam: NORMAL INSPECTION - Neurological Exam Neurological Exam: Alert, Awake - Psychiatric Exam Psychiatric exam: Normal Affect, Normal Mood - Skin Skin Exam: Normal Color Assessment and Plan - Assessment and Plan (Free Text) Assessment: Sinus tachycardia. Hypomagnesemia. Elevated alkaline phosphatase. Colon cancer. Cauda Equina syndrome. S/P radiation therapy. Anemia. Plan: Mag Heidrick as ordered. Continue present management. Give ativan if becomes anxious. May need to order d-dimer in sinus tachycardia is persistent.
[2016-12-12] MEDS ORDERED: Magnesium Sulfate 2 GM in Sodium Chloride 0.9% 100 ML IVPB ONE (00:19)
[2016-12-12] MEDS: HYDROmorphone 1 mg/ml PCA 25 ML IV PRN (06:09)
[2016-12-12 08:25] LABS: ALB/GLOB RATIO 0.7 (1.1-1.8); ALBUMIN 1.7 g/dL (3.0-4.8); ALT/SGPT 20 U/L (7-56); AST/SGOT 16 U/L (15-39); BLOOD UREA NITROGEN 22 mg/dL (7-21); CALCIUM 8.2 mg/dL (8.4-10.5); GFR AFRICAN-AMERICAN > 60; GFR NON-AFRICAN AMERICAN > 60
[2016-12-12 09:07] LABS: BASO # 0.03 K/mm3 (0.0-2.0); BASO % 0.2 % (0.0-3.0); EOS % 0.1 % (1.5-5.0); GRAN # 11.18 (1.4-6.5); GRAN % 89.1 % (50.0-68.0); LYMPH # 0.5 (1.2-3.4); LYMPH % 3.6 % (22.0-35.0); MEAN CELL VOLUME 95.5 fL (80.0-105.0); MEAN CORPUSCULAR HEMOGLOBIN 30.2 pg (25.0-35.0); MEAN CORPUSCULAR HGB CONC 31.6 g/dl (31.0-37.0); MONO # 0.9 (0.1-0.6); PLATELET COUNT 134 10^3/uL (120.0-450.0); RBC 1.79 10^6/uL (3.5-6.1); RED CELL DISTRIBUTION WIDTH 16.6 % (11.5-14.5); WHITE BLOOD COUNT 12.6 10^3/ul (4.5-11.0)
[2016-12-12 09:09] LABS: HEMOGLOBIN 5.4 gm/dL (12.0-16.0)
[2016-12-12] MEDS: levETIRAcetam 1,000 MG in Sodium Chloride 0.9% 100 ML IV SCH ×2 (09:15→21:50)
[2016-12-12] MEDS: Collagenase 250 Units/gm Ointment(30 gm) TOP SCH (09:16)
[2016-12-12] MEDS: Valproate 500 MG in Sodium Chloride 0.9% 100 ML IVPB SCH ×2 (09:16→21:50)
[2016-12-12] MEDS: Aluminum Hydroxide/Magnesium 30 ML, DiphenhydrAMINE 75 MG, Lidocaine 2% Viscous 30 ML PO SCH (09:40)
[2016-12-12] MEDS ORDERED: Scopolamine 1.5 mg/24 hr Patch TD SCH (09:45)
--- NOTE | 2016-12-12 11:05 | CP.PCM.PN ---
Subjective - Date & Time of Evaluation Date of Evaluation: 12/12/16 Time of Evaluation: 09:20 - Subjective Subjective: PGY-[address] Hendricks Patient is very lethargic not oriented. As per daughter she opened her eyes occasionally. No extremities twitching. ROS unobtainable. Objective - Vital Signs/Intake and Output Vital Signs (last 24 hours): Temp Pulse Resp BP Pulse Ox 98.7 F 150 H 18 121/71 99 12/11/16 23:00 12/12/16 05:21 12/11/16 23:00 12/11/16 23:00 12/11/16 23:00 Intake and Output: 12/12/16 12/12/16 06:59 18:59 Intake Total 2522 Output Total 700 Balance 1822 - Medications Medications: Current Medications Acetaminophen (Tylenol 650 Mg Supp) 650 mg RC Q4H PRN PRN Reason: Fever >100.4 F Last Admin: 11/01/16 21:18 Dose: 650 mg Albuterol/Ipratropium (Duoneb 3 Mg/0.5 Mg (3 Ml) Ud) 3 ml IH [id number] PRN PRN Reason: Cough and congestion Last Admin: 12/11/16 12:53 Dose: 3 ml Collagenase (Santyl) 0 gm TOP DAILY RODRÍGUEZ Last Admin: 12/12/16 09:16 Dose: 1 applic Al Hydrox/Mg Hydrox/Simethicone 30 ml/Diphenhydramine HCl 75 mg/Lidocaine 30 ml 0 ml PO QID RODRÍGUEZ Last Admin: 12/12/16 09:40 Dose: Not Given Hydralazine HCl (Apresoline) 10 mg IVP Q4H PRN PRN Reason: Systolic Blood Pressure Levetiracetam 1,000 mg/ Sodium (Chloride) 110 mls @ 460 mls/hr IV Q12 RODRÍGUEZ Last Admin: 12/12/16 09:15 Dose: 460 mls/hr Valproate Sodium 500 mg/ (Sodium Chloride) 105 mls @ 100 mls/hr IVPB Q12 RODRÍGUEZ Last Admin: 12/12/16 09:16 Dose: 100 mls/hr Hydromorphone HCl (Dilaudid-Hp 1 Mg/Ml Hooking Machine Operator) 25 mls @ 0 mls/hr IV PRN PRN; Protocol; Per Protocol PRN Reason: COSTUME DRAPER PER MD ORDER Last Admin: 12/12/16 06:09 Dose: 1 mls/hr Multivitamins/Vitamin C 10 ml/Chromium/Copper/Manganese/Zinc 1 ml/ Amino Acids/ Electrolytes/Dextrose 2,011 mls @ 83 mls/hr IV .Q24H [facility] Stop: 12/14/16 17:59 Last Admin: 12/11/16 17:58 Dose: 83 mls/hr Lorazepam (Ativan) 2 mg IVP Q6 PRN; Protocol PRN Reason: Seizure activity Last Admin: 12/12/16 04:35 Dose: 2 mg Magnesium Hydroxide (Milk Of Magnesia) 30 ml PO DAILY PRN PRN Reason: skin irritation Last Admin: 12/02/16 14:09 Dose: 30 ml Multi-Ingredient Ointment (Hydrophor Oint) 0 gm TOP Q6H PRN PRN Reason: Dry lip Pantoprazole Sodium (Protonix Inj) 40 mg IVP DAILY [facility] Last Admin: 12/12/16 09:16 Dose: 40 mg Scopolamine (Transderm-Scop) 1 patch TD Q3D [facility] Last Admin: 12/12/16 09:49 Dose: 1 patch - Labs Labs: 12/12/16 07:45 12/12/16 07:45 PT 12.7 Seconds (9.9-11.8) H 12/07/16 06:30 INR 1.18 (0.93-1.08) H 12/07/16 06:30 APTT 37.1 Seconds (23.7-30.8) H 12/07/16 06:30 - Constitutional Appears: No Acute Distress - Head Exam Head Exam: ATRAUMATIC - Eye Exam Pupil Exam: PERRL - ENT Exam ENT Exam: Mucous Membranes Moist - Respiratory Exam Respiratory Exam: Rales, Rhonchi - Cardiovascular Exam Cardiovascular Exam: REGULAR RHYTHM, RRR, +S1, +S2 - GI/Abdominal Exam GI & Abdominal Exam: Soft, Normal Bowel Sounds. absent: Distended, Tenderness - Extremities Exam Extremities Exam: Pedal Edema. absent: Calf Tenderness - Skin Skin Exam: Dry, Intact, Normal Color, Warm Additional comments: sacral decub Assessment and Plan - Assessment and Plan (Free Text) Assessment: 61 F with end stage, stage IV colon cancer with mets to the brain, bone, and lungs, s/p CVA, seizure, intractable pain, anemia of chronic dx, gastritis, cauda equina syndrome, palliative colostomy, colonic stricture relieved with lysis of adhesions, s/p sepsis due to fungemia and neutropenic sepsis. Plan: - Cont supportive care - Pain control and Duoneb PRN - Hemoglobin of 5.4 this am. Family/ mother does not want any transfusions at this time - Started Scopolamine patch Q3D - Continue Keppra, and Valproate - Seizure precaution - Cont Ativan 2mg Q6H PRN - GI recs - NPO on TPN cont PPI - ID recs monitor off abx, antifungals and antivirals s/p candidemia and removal of port - Cont Hydralazine 10mg IVP PRN for blood pressure control - Cont TPN clinimax. Family to consider stopping TPN - Cont Protonix - Cont wound care - apply santyl to affected area - As per family the patient is DNR/DNI, family to consider hospice care Case and plan was seen, reviewed and discussed in detail with Dr Hendricks.
--- NOTE | 2016-12-12 11:36 | CP.PCM.PN ---
Subjective - Date & Time of Evaluation Date of Evaluation: 12/12/16 Time of Evaluation: 11:00 - Subjective Subjective: Somnolent, occasionally opens eyes, moans. Upper airway congestion Objective - Vital Signs/Intake and Output Vital Signs (last 24 hours): Temp Pulse Resp BP Pulse Ox 98.7 F 150 H 18 121/71 99 12/11/16 23:00 12/12/16 05:21 12/11/16 23:00 12/11/16 23:00 12/11/16 23:00 Intake and Output: 12/12/16 12/12/16 06:59 18:59 Intake Total 2522 Output Total 700 Balance 1822 - Medications Medications: Current Medications Acetaminophen (Tylenol 650 Mg Supp) 650 mg RC Q4H PRN PRN Reason: Fever >100.4 F Last Admin: 11/01/16 21:18 Dose: 650 mg Albuterol/Ipratropium (Duoneb 3 Mg/0.5 Mg (3 Ml) Ud) 3 ml IH [id number] PRN PRN Reason: Cough and congestion Last Admin: 12/11/16 12:53 Dose: 3 ml Collagenase (Santyl) 0 gm TOP DAILY [facility] Last Admin: 12/12/16 09:16 Dose: 1 applic Al Hydrox/Mg Hydrox/Simethicone 30 ml/Diphenhydramine HCl 75 mg/Lidocaine 30 ml 0 ml PO QID [facility] Last Admin: 12/12/16 09:40 Dose: Not Given Hydralazine HCl (Apresoline) 10 mg IVP Q4H PRN PRN Reason: Systolic Blood Pressure Levetiracetam 1,000 mg/ Sodium (Chloride) 110 mls @ 460 mls/hr IV Q12 RODRÍGUEZ Last Admin: 12/12/16 09:15 Dose: 460 mls/hr Valproate Sodium 500 mg/ (Sodium Chloride) 105 mls @ 100 mls/hr IVPB Q12 [facility] Last Admin: 12/12/16 09:16 Dose: 100 mls/hr Hydromorphone HCl (Dilaudid-Hp 1 Mg/Ml Drinking Water Technician) 25 mls @ 0 mls/hr IV PRN PRN; Protocol; Per Protocol PRN Reason: POTATO SPOTTER PER MD ORDER Last Admin: 12/12/16 06:09 Dose: 1 mls/hr Multivitamins/Vitamin C 10 ml/Chromium/Copper/Manganese/Zinc 1 ml/ Amino Acids/ Electrolytes/Dextrose 2,011 mls @ 83 mls/hr IV .Q24H [facility] Stop: 12/14/16 17:59 Last Admin: 12/11/16 17:58 Dose: 83 mls/hr Lorazepam (Ativan) 2 mg IVP Q6 PRN; Protocol PRN Reason: Seizure activity Last Admin: 12/12/16 04:35 Dose: 2 mg Magnesium Hydroxide (Milk Of Magnesia) 30 ml PO DAILY PRN PRN Reason: skin irritation Last Admin: 12/02/16 14:09 Dose: 30 ml Multi-Ingredient Ointment (Hydrophor Oint) 0 gm TOP Q6H PRN PRN Reason: Dry lip Pantoprazole Sodium (Protonix Inj) 40 mg IVP DAILY [facility] Last Admin: 12/12/16 09:16 Dose: 40 mg Scopolamine (Transderm-Scop) 1 patch TD Q3D [facility] Last Admin: 12/12/16 09:49 Dose: 1 patch - Labs Labs: 12/12/16 07:45 12/12/16 07:45 PT 12.7 Seconds (9.9-11.8) H 12/07/16 06:30 INR 1.18 (0.93-1.08) H 12/07/16 06:30 APTT 37.1 Seconds (23.7-30.8) H 12/07/16 06:30 - Constitutional Appears: Cachectic, Chronically Ill - Eye Exam Eye Exam: Normal appearance Pupil Exam: NORMAL ACCOMODATION - Respiratory Exam Respiratory Exam: Decreased Breath Sounds, NORMAL BREATHING PATTERN - Cardiovascular Exam Cardiovascular Exam: Tachycardia, +S1, +S2 - GI/Abdominal Exam GI & Abdominal Exam: Soft, Diminished Bowel Sounds - Extremities Exam Additional comments: bilateral lower extremity edema - Skin Skin Exam: Dry, Warm Assessment and Plan - Assessment and Plan (Free Text) Assessment: 61 year old female with history of metastatic colon cancer, GI bleed, palliative colostomy,anemia, fungemia, sacral decubiti. Patient's sister Toña at bedside. I explained that Dr. Hendricks and the care team would like to meet with family regarding future goals of care. Sister very hostile, questioning the need for meeting. I explained that it was necessary to discuss next step in goals today. I impressed the importance of meeting with her and her mother at the same time so that decisions would be made. Daughter states that her mother will be available after 2 PM. CHANTEL Thomas and I also met with the patient mother later in the day. We spoke about redefining goals of care. It was explained that patient is nearing end of life. I also explained that patient was unable to effectively metabolize artificial nutritional(TPN) and therefore not benefiting from it's use. Strongly encouraged family to withdraw all life prolonging interventions and to consider hospice care. Reinforced that pain and symptom management would be priority of care. Mother states that she doesn't want to prolong her daughters' suffering. Family intends to meet with Dr. Hendricks this afternoon before making decision regarding hospice care. Dr. Hendricks, Dr Fonseca and I met with family. Family has agreed to withdraw life prolonging measures. All laboratory testing stopped, TPN discontinued, IV fluids discontinued at family's request. Times spent with family discussing goals of care, advance care planning, 45 minutes Plan: Comfort care only. Discontinue TPN, labwork,transfusions. Will request hospice eval
[2016-12-12] MEDS: Albuterol-Ipratrop 3 mg / 0.5 (3 ml) UD IH PRN ×2 (13:46→22:10)
--- NOTE | 2016-12-12 15:22 | CP.PCM.PN ---
Subjective - Date & Time of Evaluation Date of Evaluation: 12/12/16 Time of Evaluation: 09:15 - Subjective Subjective: Patient continues to be lethargic, no fevers overnight. Objective - Vital Signs/Intake and Output Vital Signs (last 24 hours): Temp Pulse Resp BP Pulse Ox 98.7 F 150 H 18 121/71 99 12/11/16 23:00 12/12/16 05:21 12/11/16 23:00 12/11/16 23:00 12/11/16 23:00 Intake and Output: 12/11/16 12/12/16 18:59 06:59 Intake Total 0 2522 Output Total 500 700 Balance -500 1822 - Medications Medications: Current Medications Acetaminophen (Tylenol 650 Mg Supp) 650 mg RC Q4H PRN PRN Reason: Fever >100.4 F Last Admin: 11/01/16 21:18 Dose: 650 mg Albuterol/Ipratropium (Duoneb 3 Mg/0.5 Mg (3 Ml) Ud) 3 ml IH [id number] PRN PRN Reason: Cough and congestion Last Admin: 12/11/16 12:53 Dose: 3 ml Collagenase (Santyl) 0 gm TOP DAILY [facility] Last Admin: 12/11/16 11:12 Dose: 1 applic Al Hydrox/Mg Hydrox/Simethicone 30 ml/Diphenhydramine HCl 75 mg/Lidocaine 30 ml 0 ml PO QID [facility] Last Admin: 12/11/16 21:51 Dose: Not Given Hydralazine HCl (Apresoline) 10 mg IVP Q4H PRN PRN Reason: Systolic Blood Pressure Levetiracetam 1,000 mg/ Sodium (Chloride) 110 mls @ 460 mls/hr IV Q12 [facility] Last Admin: 12/11/16 21:50 Dose: 460 mls/hr Valproate Sodium 500 mg/ (Sodium Chloride) 105 mls @ 100 mls/hr IVPB Q12 [facility] Last Admin: 12/11/16 21:50 Dose: 100 mls/hr Hydromorphone HCl (Dilaudid-Hp 1 Mg/Ml Elementary Classroom Teacher) 25 mls @ 0 mls/hr IV PRN PRN; Protocol; Per Protocol PRN Reason: ADULT NEUROLOGIST PER MD ORDER Last Admin: 12/12/16 06:09 Dose: 1 mls/hr Multivitamins/Vitamin C 10 ml/Chromium/Copper/Manganese/Zinc 1 ml/ Amino Acids/ Electrolytes/Dextrose 2,011 mls @ 83 mls/hr IV .Q24H [facility] Stop: 12/14/16 17:59 Last Admin: 12/11/16 17:58 Dose: 83 mls/hr Lorazepam (Ativan) 2 mg IVP Q6 PRN; Protocol PRN Reason: Seizure activity Last Admin: 12/12/16 04:35 Dose: 2 mg Magnesium Hydroxide (Milk Of Magnesia) 30 ml PO DAILY PRN PRN Reason: skin irritation Last Admin: 12/02/16 14:09 Dose: 30 ml Multi-Ingredient Ointment (Hydrophor Oint) 0 gm TOP Q6H PRN PRN Reason: Dry lip Pantoprazole Sodium (Protonix Inj) 40 mg IVP DAILY [facility] Last Admin: 12/11/16 10:07 Dose: 40 mg - Labs Labs: 12/11/16 13:30 12/11/16 11:29 PT 12.7 Seconds (9.9-11.8) H 12/07/16 06:30 INR 1.18 (0.93-1.08) H 12/07/16 06:30 APTT 37.1 Seconds (23.7-30.8) H 12/07/16 06:30 - Constitutional Appears: Other (lethargic) - Head Exam Head Exam: NORMAL INSPECTION - Neck Exam Neck Exam: absent: Meningismus - Respiratory Exam Respiratory Exam: Decreased Breath Sounds, Rales (scattered) - Cardiovascular Exam Cardiovascular Exam: +S1, +S2 - GI/Abdominal Exam GI & Abdominal Exam: Soft. absent: Tenderness - Extremities Exam Additional comments: left arm PICC line site intact Assessment and Plan - Assessment and Plan (Free Text) Plan: Assessment S/P sepsis due to C. albicans fungemia, probably from port-a-cath S/P removal ( since the patient had been on TPN through the port) - S/P treatment new onset encephalopathy and occipital lobe lesions, with left parietal lobe acute infarcts cannot rule out metastatic lesions S/P Methicillin-resistant coagulase negative staph in repeat blood cx bottle, consider bacteremia R/O secondary to PICC line R/O contamination (since only 1 of 4 bottles were positive for the organism) S/P gram negative bacilli in the urine in a patient with Minor catheter - minor catheter has been removed Partial small bowel obstruction, persistent with colonic stricture S/P exploratory laparotomy, lysis of adhesions, repair of small bowel enterotomy and partial sigmoidectomy with end-colostomy Acute stomatitis and mucositis, as well as esophageal ulcers (esophagitis) and enteritis - no CMV noted on biopsy sample of the esophageal ulcers - consider Susy Esophagitis Neutropenia probably from chemotherapy, resolved HTN 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 S/P colectomy in 2015 history of UTI GERD anxiety Plan S/P treatment with Mycamine and Daptomycin will hold Valganciclovir since there was no evidence of CMV on the biopsy of the ulcers in the esophagus Overall prognosis is poor and will discuss with Dr. Henrdicks regarding further plan for treatment for the patient
[2016-12-12] MEDS ORDERED: HYDROmorphone 1 mg/ml PCA IV PRN (15:50)
[2016-12-12] MEDS ORDERED: DiphenhydrAMINE 50 mg/ml Inj IVP PRN (15:53)
[2016-12-12] MEDS ORDERED: HYDROmorphone 1 mg/ml PCA 25 ML IV SCH (16:00)
--- NOTE | 2016-12-12 17:32 | PN ---
DATE: 12/12/2016 SUBJECTIVE: The patient is seen lying in bed. She is lethargic, minimally responsive. She is tachypneic. PHYSICAL EXAMINATION: GENERAL: Elderly lady, lying in bed. VITAL SIGNS: Blood pressure 120/71, heart rate 115, respiratory rate 18, temperature 98.7. HEENT: Normocephalic, atraumatic, positive pallor. NECK: Supple. No JVD. LUNGS: Bilateral equal air entry, bilateral rhonchi, coarse breath sounds. CARDIAC: S1 and S2, regular rate and rhythm, no murmur, no rub. ABDOMEN: Obese, distended, soft, positive colostomy. EXTREMITIES: 2+ pitting edema of the lower extremities. INTAKE AND OUTPUT: 2522/1200. LABORATORY DATA: WBC 12.6, hemoglobin 5.4, hematocrit 17, platelets 134. Sodium 140, potassium 4.1, chloride 105, CO2 of 33, BUN 22, creatinine 0.3, glucose 111, calcium 8.2, phosphorus 3.7, magnesium 2.0. AST 16, ALT 20, albumin 1.7. CURRENT MEDICATIONS: Ativan, Dilaudid, Keppra, Protonix, collagenase, Transderm scopolamine, Tylenol, sodium valproate, magnesium sulphate 2 g given this morning, hyperalimentation. ASSESSMENT: 1. Metastatic colon cancer. 2. Severe anemia. 3. Gastrointestinal bleed. 4. Intractable pain. 5. Malnutrition. 6. Unreasonable family. PLAN: 1. Continue current management. 2. No blood transfusion as per family. 3. Focus on comfort care. Adlee Griffin MD
[2016-12-13 00:59] VITALS: PULSE 115
[2016-12-13] MEDS: Aluminum Hydroxide/Magnesium 30 ML, DiphenhydrAMINE 75 MG, Lidocaine 2% Viscous 30 ML PO SCH (02:36)
[2016-12-13 08:12] VITALS: BP 109/62; RESP 24; TEMP 97.6; O2SAT 96
[2016-12-13] MEDS: Valproate 500 MG in Sodium Chloride 0.9% 100 ML IVPB SCH (09:22)
[2016-12-13] MEDS: levETIRAcetam 1,000 MG in Sodium Chloride 0.9% 100 ML IV SCH (09:23)
[2016-12-13] MEDS: Collagenase 250 Units/gm Ointment(30 gm) TOP SCH (09:25)
--- NOTE | 2016-12-13 10:28 | CP.PCM.PN ---
Subjective - Date & Time of Evaluation Date of Evaluation: 12/13/16 Time of Evaluation: 10:05 - Subjective Subjective: Patient is somnolent, responds to tactile stimuli with grunts. No fevers overnight. Objective - Vital Signs/Intake and Output Vital Signs (last 24 hours): Temp Pulse Resp BP Pulse Ox 97.7 F 115 H 18 102/67 94 L 12/13/16 00:00 12/13/16 00:00 12/13/16 00:00 12/13/16 00:00 12/13/16 00:00 Intake and Output: 12/12/16 12/13/16 18:59 06:59 Intake Total 400 Output Total 600 Balance -200 - Medications Medications: Current Medications Acetaminophen (Tylenol 650 Mg Supp) 650 mg RC Q4H PRN PRN Reason: Fever >100.4 F Last Admin: 11/01/16 21:18 Dose: 650 mg Albuterol/Ipratropium (Duoneb 3 Mg/0.5 Mg (3 Ml) Ud) 3 ml IH [id number] PRN PRN Reason: Cough and congestion Last Admin: 12/12/16 22:10 Dose: 3 ml Collagenase (Santyl) 0 gm TOP DAILY [facility] Last Admin: 12/12/16 09:16 Dose: 1 applic Diphenhydramine HCl (Benadryl) 50 mg IVP Q12H PRN PRN Reason: Allergy symptoms Levetiracetam 1,000 mg/ Sodium (Chloride) 110 mls @ 460 mls/hr IV Q12 [facility] Last Admin: 12/12/16 21:50 Dose: 460 mls/hr Valproate Sodium 500 mg/ (Sodium Chloride) 105 mls @ 100 mls/hr IVPB Q12 [facility] Last Admin: 12/12/16 21:50 Dose: 100 mls/hr Hydromorphone HCl (Dilaudid-Hp 1 Mg/Ml Asset Specialist) 25 mls @ 1.5 mls/hr IV .[id number] [facility] Last Admin: 12/13/16 02:11 Dose: 1.5 mls/hr Lorazepam (Ativan) 2 mg IVP Q6 PRN; Protocol PRN Reason: Seizure activity Last Admin: 12/13/16 00:50 Dose: 2 mg Magnesium Hydroxide (Milk Of Magnesia) 30 ml PO DAILY PRN PRN Reason: skin irritation Last Admin: 12/02/16 14:09 Dose: 30 ml Multi-Ingredient Ointment (Hydrophor Oint) 0 gm TOP Q6H PRN PRN Reason: Dry lip Scopolamine (Transderm-Scop) 1 patch TD Q3D [facility] Last Admin: 12/12/16 09:49 Dose: 1 patch - Labs Labs: 12/12/16 07:45 12/12/16 07:45 PT 12.7 Seconds (9.9-11.8) H 12/07/16 06:30 INR 1.18 (0.93-1.08) H 12/07/16 06:30 APTT 37.1 Seconds (23.7-30.8) H 12/07/16 06:30 - Constitutional Appears: Other (somnolent and lethargic) - Head Exam Head Exam: NORMAL INSPECTION - Neck Exam Neck Exam: absent: Meningismus - Respiratory Exam Respiratory Exam: Decreased Breath Sounds - Cardiovascular Exam Cardiovascular Exam: +S1, +S2 - GI/Abdominal Exam GI & Abdominal Exam: Soft. absent: Tenderness - Extremities Exam Additional comments: left arm PICC line site intact Assessment and Plan - Assessment and Plan (Free Text) Plan: Assessment S/P sepsis due to C. albicans fungemia, probably from port-a-cath S/P removal ( since the patient had been on TPN through the port) - S/P treatment new onset encephalopathy and occipital lobe lesions, with left parietal lobe acute infarcts cannot rule out metastatic lesions S/P Methicillin-resistant coagulase negative staph in repeat blood cx bottle, consider bacteremia R/O secondary to PICC line R/O contamination (since only 1 of 4 bottles were positive for the organism) S/P gram negative bacilli in the urine in a patient with Minor catheter - minor catheter has been removed Partial small bowel obstruction, persistent with colonic stricture S/P exploratory laparotomy, lysis of adhesions, repair of small bowel enterotomy and partial sigmoidectomy with end-colostomy Acute stomatitis and mucositis, as well as esophageal ulcers (esophagitis) and enteritis - no CMV noted on biopsy sample of the esophageal ulcers - consider Susy Esophagitis Neutropenia probably from chemotherapy, resolved HTN 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 S/P colectomy in 2014 history of UTI GERD anxiety Plan S/P treatment with Mycamine and Daptomycin Overall prognosis is poor - discussion between Dr. Hendricks's team and the family led to hospice evaluation
--- NOTE | 2016-12-13 10:57 | CP.PCM.PN ---
Subjective - Date & Time of Evaluation Date of Evaluation: 12/13/16 Time of Evaluation: 09:10 - Subjective Subjective: PGY-[address] Hendricks Patient seen and examined at bedside. No acute events overnight. Yesterday me, Dr Hendricks, and palliative care spoke to the pt mother & sister extensively which agreed on discontinuing TPN and daily blood draws. All questions were answered. Today she is lethargic not oriented. No extremities twitching. ROS unobtainable. Objective - Vital Signs/Intake and Output Vital Signs (last 24 hours): Temp Pulse Resp BP Pulse Ox 97.6 F 115 H 24 109/62 96 12/13/16 08:11 12/13/16 08:11 12/13/16 08:11 12/13/16 08:11 12/13/16 08:11 Intake and Output: 12/13/16 12/13/16 06:59 18:59 Intake Total 400 Output Total 600 Balance -200 - Medications Medications: Current Medications Acetaminophen (Tylenol 650 Mg Supp) 650 mg RC Q4H PRN PRN Reason: Fever >100.4 F Last Admin: 11/01/16 21:18 Dose: 650 mg Albuterol/Ipratropium (Duoneb 3 Mg/0.5 Mg (3 Ml) Ud) 3 ml IH [id number] PRN PRN Reason: Cough and congestion Last Admin: 12/12/16 22:10 Dose: 3 ml Collagenase (Santyl) 0 gm TOP DAILY [facility] Last Admin: 12/13/16 09:25 Dose: 1 applic Diphenhydramine HCl (Benadryl) 50 mg IVP Q12H PRN PRN Reason: Allergy symptoms Levetiracetam 1,000 mg/ Sodium (Chloride) 110 mls @ 460 mls/hr IV Q12 [facility] Last Admin: 12/13/16 09:23 Dose: 460 mls/hr Valproate Sodium 500 mg/ (Sodium Chloride) 105 mls @ 100 mls/hr IVPB Q12 [facility] Last Admin: 12/13/16 09:22 Dose: 100 mls/hr Hydromorphone HCl (Dilaudid-Hp 1 Mg/Ml Space Sciences Director) 25 mls @ 1.5 mls/hr IV .[id number] [facility] Last Admin: 12/13/16 02:11 Dose: 1.5 mls/hr Lorazepam (Ativan) 2 mg IVP Q6 PRN; Protocol PRN Reason: Seizure activity Last Admin: 12/13/16 00:50 Dose: 2 mg Magnesium Hydroxide (Milk Of Magnesia) 30 ml PO DAILY PRN PRN Reason: skin irritation Last Admin: 12/02/16 14:09 Dose: 30 ml Multi-Ingredient Ointment (Hydrophor Oint) 0 gm TOP Q6H PRN PRN Reason: Dry lip Scopolamine (Transderm-Scop) 1 patch TD Q3D [facility] Last Admin: 12/12/16 09:49 Dose: 1 patch - Labs Labs: 12/12/16 07:45 12/12/16 07:45 PT 12.7 Seconds (9.9-11.8) H 12/07/16 06:30 INR 1.18 (0.93-1.08) H 12/07/16 06:30 APTT 37.1 Seconds (23.7-30.8) H 12/07/16 06:30 - Constitutional Appears: No Acute Distress - Eye Exam Eye Exam: PERRL - ENT Exam ENT Exam: Mucous Membranes Moist - Respiratory Exam Respiratory Exam: Rales, Rhonchi. absent: Wheezes - Cardiovascular Exam Cardiovascular Exam: Tachycardia, +S1, +S2 - GI/Abdominal Exam GI & Abdominal Exam: Soft. absent: Distended, Tenderness - Extremities Exam Extremities Exam: absent: Calf Tenderness - Neurological Exam Neurological Exam: Alert, Awake, Oriented x3 - Psychiatric Exam Psychiatric exam: Normal Affect, Normal Mood - Skin Skin Exam: Dry, Intact, Normal Color, Warm Assessment and Plan - Assessment and Plan (Free Text) Assessment: 61 F with end stage, stage IV colon cancer with mets to the brain, bone, and lungs, s/p CVA, seizure, intractable pain, anemia of chronic dx, gastritis, cauda equina syndrome, palliative colostomy, colonic stricture relieved with lysis of adhesions, s/p sepsis due to fungemia and neutropenic sepsis. Plan: - Cont supportive care - After extensive talks with family (mother and sister) it was agreed on to d/c TPN and daily blood draws - Pain control - Dilaudid increased to 1.5ml/hr - Duoneb PRN - Cont Scopolamine patch Q3D - Continue Keppra, and Valproate - Seizure precaution - Cont Ativan 2mg Q6H PRN - f/u GI recs - ID recs monitor off abx, antifungals and antivirals s/p candidemia and removal of port - Cont Hydralazine 10mg IVP PRN for blood pressure control - Cont Protonix - Cont wound care - apply santyl to affected area - As per family the patient is DNR/DNI, family to consider hospice care Case and plan was reviewed and discussed in detail with Dr Hendricks.
--- NOTE | 2016-12-13 11:33 | PN ---
DATE: 12/13/2016 SUBJECTIVE: The patient is seen lying in bed. She is minimally responsive, moaning. PHYSICAL EXAMINATION GENERAL: Elderly lady lying in bed. VITAL SIGNS: Blood pressure of 109/62, heart rate of 115, respiratory rate of 20, and temperature of 97.6. LUNGS: Bilateral rhonchi, equal expansion. EXTREMITIES: 2+ pitting edema. LABORATORY DATA: No new labs today. ASSESSMENT: 1. Metastatic colon cancer. 2. Severe anemia. 3. Intractable pain. 4. The patient is comfort care now. PLAN: At this time her hyperalimentation has been discontinued. There is no plan for transfusion. We will discontinue follow up. Adele Griffin MD
--- NOTE | 2016-12-13 11:39 | CP.PCM.PN ---
Subjective - Date & Time of Evaluation Date of Evaluation: 12/13/16 Time of Evaluation: 10:00 - Subjective Subjective: Unresponsive. No acute distress Objective - Vital Signs/Intake and Output Vital Signs (last 24 hours): Temp Pulse Resp BP Pulse Ox 97.6 F 115 H 24 109/62 96 12/13/16 08:11 12/13/16 08:11 12/13/16 08:11 12/13/16 08:11 12/13/16 08:11 Intake and Output: 12/13/16 12/13/16 06:59 18:59 Intake Total 400 Output Total 600 Balance -200 - Medications Medications: Current Medications Acetaminophen (Tylenol 650 Mg Supp) 650 mg RC Q4H PRN PRN Reason: Fever >100.4 F Last Admin: 11/01/16 21:18 Dose: 650 mg Albuterol/Ipratropium (Duoneb 3 Mg/0.5 Mg (3 Ml) Ud) 3 ml IH [id number] PRN PRN Reason: Cough and congestion Last Admin: 12/12/16 22:10 Dose: 3 ml Collagenase (Santyl) 0 gm TOP DAILY [facility] Last Admin: 12/13/16 09:25 Dose: 1 applic Diphenhydramine HCl (Benadryl) 50 mg IVP Q12H PRN PRN Reason: Allergy symptoms Levetiracetam 1,000 mg/ Sodium (Chloride) 110 mls @ 460 mls/hr IV Q12 [facility] Last Admin: 12/13/16 09:23 Dose: 460 mls/hr Valproate Sodium 500 mg/ (Sodium Chloride) 105 mls @ 100 mls/hr IVPB Q12 [facility] Last Admin: 12/13/16 09:22 Dose: 100 mls/hr Hydromorphone HCl (Dilaudid-Hp 1 Mg/Ml Health And Safety Trainer) 25 mls @ 1.5 mls/hr IV .[id number] [facility] Last Admin: 12/13/16 02:11 Dose: 1.5 mls/hr Lorazepam (Ativan) 2 mg IVP Q6 PRN; Protocol PRN Reason: Seizure activity Last Admin: 12/13/16 00:50 Dose: 2 mg Magnesium Hydroxide (Milk Of Magnesia) 30 ml PO DAILY PRN PRN Reason: skin irritation Last Admin: 12/02/16 14:09 Dose: 30 ml Multi-Ingredient Ointment (Hydrophor Oint) 0 gm TOP Q6H PRN PRN Reason: Dry lip Scopolamine (Transderm-Scop) 1 patch TD Q3D [facility] Last Admin: 12/12/16 09:49 Dose: 1 patch - Labs Labs: 12/12/16 07:45 12/12/16 07:45 PT 12.7 Seconds (9.9-11.8) H 12/07/16 06:30 INR 1.18 (0.93-1.08) H 12/07/16 06:30 APTT 37.1 Seconds (23.7-30.8) H 12/07/16 06:30 - Constitutional Appears: Cachectic, Chronically Ill - Eye Exam Eye Exam: Normal appearance - ENT Exam ENT Exam: Mucous Membranes Dry - Respiratory Exam Respiratory Exam: Decreased Breath Sounds, Rhonchi - Cardiovascular Exam Cardiovascular Exam: REGULAR RHYTHM, +S1, +S2 - GI/Abdominal Exam GI & Abdominal Exam: Soft, Diminished Bowel Sounds - Extremities Exam Additional comments: lower extremities edematous - Skin Skin Exam: Dry, Pallor Assessment and Plan - Assessment and Plan (Free Text) Assessment: 61 year old female with history of metastatic colon cancer, s/p colon resection and colostomy, GI bleed, anemia, fungemia, sacral decubiti. Patient receiving comfort measures only per families request. Hospice services were previously discussed with family. Hospice GIP was offered again yesterday. Family has not made a decision as yet. Psychosocial support given Plan: Pain management: Dilaudid 1.5mg continuos IV via FLIGHT SECURITY SPECIALIST. Titrate as needed for pain control Respiratory congestion: Scopolamine transdermal patch. Benadryl 50 mg IV. Albuterol nebulizers as needed. Gentle suctioning. Seizure disorder: Continue Keppra and Valproate NA as ordered Agnation/restlessness: Ativan 2 mg IV as needed. Temperature over 100 F: Tylenol 650 RC as needed
--- NOTE | 2016-12-13 12:19 | CP.PCM.PN ---
Subjective - Date & Time of Evaluation Date of Evaluation: 12/13/16 Time of Evaluation: 09:15 - Subjective Subjective: S&E at bedside, patient is very lethargic, not responsive to verbal or tactile stimuli. Her sister is at the bedside. Objective - Vital Signs/Intake and Output Vital Signs (last 24 hours): Temp Pulse Resp BP Pulse Ox 97.6 F 115 H 24 109/62 96 12/13/16 08:11 12/13/16 08:11 12/13/16 08:11 12/13/16 08:11 12/13/16 08:11 Intake and Output: 12/13/16 12/13/16 06:59 18:59 Intake Total 400 Output Total 600 Balance -200 - Medications Medications: Current Medications Acetaminophen (Tylenol 650 Mg Supp) 650 mg RC Q4H PRN PRN Reason: Fever >100.4 F Last Admin: 11/01/16 21:18 Dose: 650 mg Albuterol/Ipratropium (Duoneb 3 Mg/0.5 Mg (3 Ml) Ud) 3 ml IH [id number] PRN PRN Reason: Cough and congestion Last Admin: 12/12/16 22:10 Dose: 3 ml Collagenase (Santyl) 0 gm TOP DAILY [facility] Last Admin: 12/13/16 09:25 Dose: 1 applic Diphenhydramine HCl (Benadryl) 50 mg IVP Q12H PRN PRN Reason: Allergy symptoms Levetiracetam 1,000 mg/ Sodium (Chloride) 110 mls @ 460 mls/hr IV Q12 [facility] Last Admin: 12/13/16 09:23 Dose: 460 mls/hr Valproate Sodium 500 mg/ (Sodium Chloride) 105 mls @ 100 mls/hr IVPB Q12 [facility] Last Admin: 12/13/16 09:22 Dose: 100 mls/hr Hydromorphone HCl (Dilaudid-Hp 1 Mg/Ml Disaster Or Damage Control Specialist) 25 mls @ 1.5 mls/hr IV .[id number] [facility] Last Admin: 12/13/16 02:11 Dose: 1.5 mls/hr Lorazepam (Ativan) 2 mg IVP Q6 PRN; Protocol PRN Reason: Seizure activity Last Admin: 12/13/16 00:50 Dose: 2 mg Magnesium Hydroxide (Milk Of Magnesia) 30 ml PO DAILY PRN PRN Reason: skin irritation Last Admin: 12/02/16 14:09 Dose: 30 ml Multi-Ingredient Ointment (Hydrophor Oint) 0 gm TOP Q6H PRN PRN Reason: Dry lip Scopolamine (Transderm-Scop) 1 patch TD Q3D [facility] Last Admin: 12/12/16 09:49 Dose: 1 patch - Labs Labs: 12/12/16 07:45 12/12/16 07:45 PT 12.7 Seconds (9.9-11.8) H 12/07/16 06:30 INR 1.18 (0.93-1.08) H 12/07/16 06:30 APTT 37.1 Seconds (23.7-30.8) H 12/07/16 06:30 - Constitutional Appears: Cachectic, Chronically Ill - Eye Exam Eye Exam: absent: Scleral icterus - ENT Exam ENT Exam: Mucous Membranes Dry - Neck Exam Neck Exam: Normal Inspection - Respiratory Exam Respiratory Exam: Rales, Rhonchi. absent: Respiratory Distress - Cardiovascular Exam Cardiovascular Exam: +S1, +S2 - GI/Abdominal Exam GI & Abdominal Exam: Soft, Hypoactive Bowel Sounds Additional comments: colostomy , small dark stool - Extremities Exam Extremities Exam: Pedal Edema - Neurological Exam Neurological Exam: Altered Assessment and Plan - Assessment and Plan (Free Text) Assessment: SSESSMENT: Metastatic Stage IV Colon Cancer, w/ Brain Metastasis CVA Seizures S/P Exploratory laparotomy with lysis of adhesions and repair of small bowel enterotomy and partial sigmoidectomy with end colostomy GI Bleed, S/P push enteroscopy: negative for bleed Anemia with multiple blood transfusions Fungemia PLAN: family meeting done with oncology team, palliative care team and family made decision to DC TPN and blood draws. continue supportive care. on analgesia on scopolamine on Keppra/Volpraote spoke to sister at bedside, they are deciding about hospice Seen and discussed with Dr. Null.
--- NOTE | 2016-12-14 01:36 | CP.PCM.DIS ---
Provider - Provider Date of Admission: 10/09/16 14:04 Attending physician: Tomasz Winters MD Primary care physician: Stephen Adams MD Consults: Wound care Palliative Cardio - Dr. Busby - sign off Heme Onc - Dr. Wilburn, Ashtyn GI - Dr. Null Nephro - Dr. Griffin/Todd ID - Dr. Avalos Surgery - Dr. Jeffers for wound Surgery - Dr. Mccracken for colostomy ICU - Dr. Centeno IR - Dr. Hackett Opthalomoly = Dr. Greenberg Pain - Dr. Amador Neuro - Dr. Moya Time Spent in preparation of Discharge (in minutes): 60 Hospital Course - Lab Results Lab Results: Micro Results 11/27/16 21:46 Nose MRSA Culture (Admit) - Final MRSA NOT DETECTED 11/24/16 13:10 Urine,Minor Urine Culture - Final Gram Negative Dewayne 11/24/16 16:30 Nose Gram Stain - Final 11/24/16 16:30 Nose Nose Culture - Final Coagulase Neg Staphylococcus 11/22/16 17:45 Urine,Minor Urine Culture - Final Gram Negative Dewayne 11/15/16 08:31 Blood-Venous Blood Culture - Final NO GROWTH AFTER 5 DAYS 11/15/16 08:31 Blood-Venous Gram Stain - Final TEST NOT PERFORMED 11/15/16 06:50 Blood-Thru Central Line Blood Culture - Final NO GROWTH AFTER 5 DAYS 11/15/16 06:50 Blood-Thru Central Line Gram Stain - Final TEST NOT PERFORMED 11/17/16 14:06 Nose MRSA Culture (Admit) - Final MRSA NOT DETECTED 11/10/16 14:30 Blood Blood Culture - Final NO GROWTH AFTER 5 DAYS 11/10/16 14:30 Blood Gram Stain - Final TEST NOT PERFORMED 11/10/16 14:15 Blood Blood Culture - Final NO GROWTH AFTER 5 DAYS 11/10/16 14:15 Blood Gram Stain - Final TEST NOT PERFORMED 11/11/16 20:40 Blood-Thru Central Line S.aureus & Coag-Neg Staph PNA FISH - Final 11/11/16 20:40 Blood-Thru Central Line Blood Culture - Final Coagulase Neg Staphylococcus 11/11/16 20:40 Blood-Thru Central Line Gram Stain - Final 11/12/16 14:00 Chest Catheter Tip Culture - Final Susy Albicans 11/04/16 20:00 Blood Blood Culture - Final Susy Albicans 11/04/16 20:00 Blood Gram Stain - Final 11/04/16 20:00 Blood S.aureus & Coag-Neg Staph PNA FISH - Final 11/04/16 20:00 Blood Blood Culture - Final Susy Albicans 11/04/16 20:00 Blood Gram Stain - Final 10/30/16 23:45 Blood-Venous Blood Culture - Final Susy Albicans 10/30/16 23:45 Blood-Venous Gram Stain - Final 10/30/16 23:59 Blood-Venous Blood Culture - Preliminary Yeast Species 10/30/16 23:59 Blood-Venous Gram Stain - Final TEST NOT PERFORMED 10/31/16 10:30 Sacral Gram Stain - Final 10/31/16 10:30 Sacral Wound Culture - Final Susy Albicans 11/01/16 10:30 Throat Group A Strep Throat Culture - Final NO BETA STREP GROUP A ISOLATED. 10/28/16 13:10 Urine Urine Culture - Final Susy Albicans 10/28/16 14:15 Blood-Venous S.aureus & Coag-Neg Staph PNA FISH - Final 10/28/16 14:15 Blood-Venous Blood Culture - Final Susy Albicans 10/28/16 14:15 Blood-Venous Gram Stain - Final 10/28/16 14:15 Blood-Venous Blood Culture - Final Susy Albicans 10/28/16 14:15 Blood-Venous Gram Stain - Final 10/25/16 02:10 Blood-Venous Blood Culture - Final NO GROWTH AFTER 5 DAYS 10/25/16 02:10 Blood-Venous Gram Stain - Final TEST NOT PERFORMED 10/25/16 02:10 Blood-Venous Blood Culture - Final NO GROWTH AFTER 5 DAYS 10/25/16 02:10 Blood-Venous Gram Stain - Final TEST NOT PERFORMED 10/19/16 13:50 Stool C. difficile Antigen & Toxin A,B (M - Final 10/18/16 16:31 Stool C. difficile Antigen & Toxin A,B (M - Final 10/17/16 09:53 Naris MRSA Culture (Admit) - Final MRSA NOT DETECTED 10/13/16 23:55 Stool C. difficile Antigen & Toxin A,B (M - Final 10/09/16 18:30 Urine,Minor Urine Culture - Final Escherichia Coli 10/09/16 16:30 Naris MRSA Culture (Admit) - Final MRSA DETECTED Most Recent Lab Values WBC 12.6 10^3/ul (4.5-11.0) H 12/12/16 07:45 RBC 1.79 10^6/uL (3.5-6.1) L 12/12/16 07:45 Hgb 5.4 gm/dL (12.0-16.0) L* D 12/12/16 07:45 Hct 17.1 % (36.0-48.0) L* 12/12/16 07:45 MCV 95.5 fL (80.0-105.0) 12/12/16 07:45 MCH 30.2 pg (25.0-35.0) 12/12/16 07:45 MCHC 31.6 g/dl (31.0-37.0) 12/12/16 07:45 RDW 16.6 % (11.5-14.5) H 12/12/16 07:45 Plt Count 134 10^3/uL (120.0-450.0) 12/12/16 07:45 Manual Plt Count 104 K/mm3 (120-450) L 11/19/16 06:30 MPV 11.0 fl (7.0-11.0) 12/12/16 07:45 Gran % 89.1 % (50.0-68.0) H 12/12/16 07:45 Lymph % (Auto) 3.6 % (22.0-35.0) L 12/12/16 07:45 [place] % (Auto) 7.0 % (1.0-6.0) H 12/12/16 07:45 Eos % (Auto) 0.1 % (1.5-5.0) L 12/12/16 07:45 Baso % (Auto) 0.2 % (0.0-3.0) 12/12/16 07:45 Gran # 11.18 (1.4-6.5) H 12/12/16 07:45 Lymph # 0.5 (1.2-3.4) L 12/12/16 07:45 [place] # 0.9 (0.1-0.6) H 12/12/16 07:45 Eos # 0.0 (0.0-0.7) 12/12/16 07:45 Baso # 0.03 K/mm3 (0.0-2.0) 12/12/16 07:45 Corrected WBC (Man) Cancelled 10/11/16 06:15 Neutrophils % (Manual) 88 % (50.0-70.0) H 12/03/16 07:30 Band Neutrophils % 5 % (0-2) H 12/03/16 07:30 Lymphocytes % (Manual) 1 % (22.0-35.0) L 12/03/16 07:30 Atypical Lymphs % 2 % (0.0-0.0) H 10/18/16 06:00 Monocytes % (Manual) 5 % (1.0-6.0) 12/03/16 07:30 Eosinophils % (Manual) 5 % (0.0-3.0) H 10/12/16 15:27 Basophils % (Manual) 1 % (0.0-1.0) 10/30/16 01:10 Metamyelocytes % 1 % 10/12/16 15:27 Myelocytes % 1 % 12/03/16 07:30 Promyelocytes % Cancelled 10/11/16 06:15 Nucleated RBC % 1 % 10/17/16 06:00 Hypersegmented Polys Cancelled 10/11/16 06:15 Immature Lymphocytes 6 % 10/12/16 15:27 Blast Cells Cancelled 10/11/16 06:15 Smudge Cells Present 10/20/16 07:47 Toxic Granulation 1+ 10/30/16 01:10 Dohle Bodies Cancelled 10/11/16 06:15 Hardeep Rods Cancelled 10/11/16 06:15 Platelet Evaluation Normal (NORMAL) 12/03/16 07:30 Plt Clumps, EDTA Cancelled 10/11/16 06:15 Large Platelets Present 10/20/16 07:47 Giant Platelets Cancelled 10/11/16 06:15 Polychromasia Slight 10/18/16 06:00 Hypochromasia Slight 10/20/16 07:47 Hyperchromasia Cancelled 10/11/16 06:15 Poikilocytosis (manual Slight 10/20/16 07:47 Basophilic Stippling Cancelled 10/11/16 06:15 Anisocytosis (manual) Slight 12/01/16 05:00 Microcytosis (manual) Cancelled 10/11/16 06:15 Macrocytosis (manual) Cancelled 10/11/16 06:15 Spherocytes Cancelled 10/11/16 06:15 Sickle Cells Cancelled 10/11/16 06:15 Target Cells Cancelled 10/11/16 06:15 Tear Drop Cells Slight 10/20/16 07:47 Ovalocytes Slight 10/20/16 07:47 Stomatocytes Cancelled 10/11/16 06:15 Helmet Cells Cancelled 10/11/16 06:15 [place] Rings Cancelled 10/11/16 06:15 [place] Cells Cancelled 10/11/16 06:15 Acanthocytes (Spur) Cancelled 10/11/16 06:15 Rouleaux Cancelled 10/11/16 06:15 Retic Count TEST NOT PERFORMED 10/12/16 15:27 Haptoglobin 252 mg/dL (43-212) H 10/12/16 15:27 PT 12.7 Seconds (9.9-11.8) H 12/07/16 06:30 INR 1.18 (0.93-1.08) H 12/07/16 06:30 APTT 37.1 Seconds (23.7-30.8) H 12/07/16 06:30 Fibrinogen 220.8 mg/dL (187-400) 11/25/16 19:10 Fibrin Degrad Products >10 <40 ug/ml (< 10 ug/mL) 11/17/16 14:00 D-Dimer, Quantitative 3.15 mg/L FEU (0-0.50) H 11/11/16 20:40 pCO2 38 mm/Hg (35-45) 11/27/16 19:30 pO2 98 mm/Hg (30-55) H 11/27/16 19:40 HCO3 24.1 mmol/L (21-28) 11/27/16 19:30 ABG pH 7.41 (7.35-7.45) 11/27/16 19:30 ABG Total CO2 25.3 mmol.L (22-28) 11/27/16 19:30 ABG O2 Saturation 98.8 % (95-98) H 11/27/16 19:30 ABG O2 Content 19.2 ML/dl (15-23) 11/27/16 19:30 ABG Base Excess -0.3 mmol/L (-2.0-3.0) 11/27/16 19:30 ABG Hemoglobin 14.1 g/dL (11.7-17.4) 11/27/16 19:30 ABG Carboxyhemoglobin 1.6 % (0.5-1.5) H 11/27/16 19:30 POC ABG HHb (Measured) 1.2 % (0-5) 11/27/16 19:30 ABG Methemoglobin 0.9 % (0.0-3.0) 11/27/16 19:30 ABG O2 Capacity 19.4 mL/dl (16-24) 11/27/16 19:30 ABG Potassium 4.4 mmol/L (3.6-5.2) 11/23/16 11:50 VBG pH 7.44 (7.32-7.43) H 11/27/16 19:40 VBG pCO2 43.0 (40-60) 11/27/16 19:40 VBG HCO3 29.2 mmol/l (21-28) H 11/27/16 19:40 VBG Total CO2 30.5 mmol.L (22-28) H 11/27/16 19:40 VBG O2 Sat (Calc) 98.6 % (40-65) H 11/27/16 19:40 VBG Base Excess 4.4 mmol/L (0.0-2.0) H 11/27/16 19:40 VBG Potassium 3.8 mmol/L (3.6-5.2) 11/27/16 19:40 Hgb O2 Saturation 96.2 % (95.0-98.0) 11/27/16 19:30 Sodium 146.0 mmol/L (132-148) 11/27/16 19:40 Chloride 112.0 mmol/L (98-107) H 11/27/16 19:40 Glucose 118 mg/dl (65-105) H 11/27/16 19:40 Lactate 2.7 mmol/L (0.7-2.1) H 11/27/16 19:40 FiO2 21.0 % 11/27/16 19:40 Sodium 140 mmol/L (132-148) 12/12/16 07:45 Potassium 4.1 mmol/L (3.6-5.0) 12/12/16 07:45 Chloride 105 mmol/L (98-107) 12/12/16 07:45 Carbon Dioxide 33 mmol/L (21-33) 12/12/16 07:45 Anion Gap 6 (10-20) L 12/12/16 07:45 BUN 22 mg/dL (7-21) H 12/12/16 07:45 Creatinine 0.3 mg/dL (0.5-1.4) L 12/12/16 07:45 Est GFR ( Amer) > 60 12/12/16 07:45 Est GFR (Non-Af Amer) > 60 12/12/16 07:45 POC Glucose (mg/dL) 125 mg/dL (65-110) H 11/27/16 19:20 Random Glucose 111 mg/dL (70-110) H 12/12/16 07:45 Lactic Acid 0.8 mmol/L (0.7-2.1) 10/26/16 16:00 Calcium 8.2 mg/dL (8.4-10.5) L 12/12/16 07:45 Ionized Calcium 5.0 mg/dL (4.80-5.60) 10/27/16 12:07 Phosphorus 3.7 mg/dL (2.5-4.5) 12/12/16 07:45 Magnesium 2.0 mg/dL (1.7-2.2) 12/12/16 07:45 Total Bilirubin 0.2 mg/dL (0.2-1.3) 12/12/16 07:45 Direct Bilirubin 0.5 mg/dL (0.0-0.4) H 11/29/16 14:13 AST 16 U/L (15-39) 12/12/16 07:45 ALT 20 U/L (7-56) 12/12/16 07:45 Alkaline Phosphatase 238 U/L (38-133) H 12/12/16 07:45 Lactate Dehydrogenase 585 U/L (333-699) 10/11/16 21:45 Total Creatine Kinase < 20 U/L (35-230) L 11/28/16 08:01 Troponin I 0.04 ng/mL D 10/09/16 13:00 Total Protein 4.1 g/dL (5.8-8.3) L 12/12/16 07:45 Albumin 1.7 g/dL (3.0-4.8) L 12/12/16 07:45 Globulin 2.4 gm/dL 12/12/16 07:45 Albumin/Globulin Ratio 0.7 (1.1-1.8) L 12/12/16 07:45 Amylase < 30 U/L (35-125) L 10/09/16 13:00 Lipase < 10 U/L (23-300) L 10/09/16 13:00 Carcinoembryonic Ag 20.9 ng/mL (0.0-3.0) H 11/30/16 05:20 CA 19-9 Antigen < 1.4 U/mL (0-37) 11/30/16 05:20 25-OH Vitamin D Total < 12.8 NG/ML (30.0-100.0) L 10/27/16 12:07 Procalcitonin 5.03 NG/ML (0.19-0.49) H 10/28/16 14:15 TSH 3rd Generation 0.38 mIU/mL (0.46-4.68) L 11/01/16 06:20 Arterial Blood Potassium 4.4 mmol/L (3.6-5.2) 11/23/16 11:50 Venous Blood Potassium 3.8 mmol/L (3.6-5.2) 11/27/16 19:40 Urine Color Yellow (YELLOW) 10/29/16 11:30 Urine Appearance Sl cloudy (CLEAR) 10/29/16 11:30 Urine pH 5.5 (4.7-8.0) 10/29/16 11:30 Ur Specific [place] 1.015 (1.005-1.035) 10/29/16 11:30 Urine Protein 30 mg/dL (<30 mg/dL) H 10/29/16 11:30 Urine Glucose (UA) Negative mg/dL (NEGATIVE) 10/29/16 11:30 Urine Ketones Negative mg/dL (NEGATIVE) 10/29/16 11:30 Urine Blood Large (NEGATIVE) H 10/29/16 11:30 Urine Nitrate Negative (NEGATIVE) 10/29/16 11:30 Urine Bilirubin Negative (NEGATIVE) 10/29/16 11:30 Urine Urobilinogen 0.2 E.U./dL (<1 E.U./dL) 10/29/16 11:30 Ur Leukocyte Esterase Negative Vincenzo/uL (NEGATIVE) 10/29/16 11:30 Urine RBC 15 - 20 /hpf (0-2) 10/29/16 11:30 Urine WBC 5 - 10 /hpf (0-6) 10/29/16 11:30 Ur Epithelial Cells 0 - 2 /hpf (0-5) 10/29/16 11:30 Amorphous Sediment Trace 10/28/16 13:10 Urine Bacteria Few (NEG) 10/29/16 11:30 Hyaline Casts 2 - 5 /hpf 10/09/16 18:30 Coarse Granular Casts Trace /hpf (0-2) H 10/29/16 11:30 Stool Occult Blood Positive (NEGATIVE) H 10/19/16 13:50 Random Vancomycin 8.0 ug/mL (20.0-40.0) L 10/11/16 10:30 CMV Specimen Source Plasma 11/03/16 06:00 CMV DNA Quant PCR <200 IU/mL 11/03/16 06:00 CMV Qnt PCR log IU/mL <2.30 Log IU/mL 11/03/16 06:00 Blood Type A POSITIVE 12/01/16 17:57 Antibody Screen Negative 12/01/16 17:57 EMILY, Poly Interpret Positive (NEGATIVE) H 10/11/16 22:06 Indirect Antiglob Test Negative 10/11/16 22:06 Crossmatch See Detail 11/23/16 11:15 BBK History Checked Patient has bt 12/01/16 17:57 - Hospital Course Hospital Course: 61 F admitted on 10/09/16 with sepsis post chemotherapy with 2 cycles of FOLFOX based chemotherapy with Avastin. The hospital course was complicated by (1) seizure due to new stroke vs brain mets, (2) anemia due to GI bleeding requiring transfusion and (3) fungemia/bactermia with Port removal (11/14/16) which pt is 2 weeks of IV daptomycin/mycamine, then PO antifungal, then back on IV mycamine due to no PO intake. Pt has zero oral intake incluing meds. Plan: Pt is now DNR/DNI. [facility] in Palliative and Dr. Hendricks have met for [address] Hendricks talked to family on phone for 45 mins on 12/04/16. Pt is DNR/DNI. Dr. Hendricks will call family with a goal to taper TPN, and further discuss on decision re: hospice/comfort care vs palliative care. 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 Hospice met with pt's mom 2 days ago. Mom said "Let me talk to my children." Seizure, due to ischemic stroke vs mets - Keppra was increased to 1000 mg q12, and valproate 500 mg q12 last night - D/C all antibiotics - seizure precaution Altered Mental Status, only arousable by touch, no PO intake Stroke, ischemic with hemorrhagic conversion, Enlarged occipital-parietal infarct (+) brain mets - Neuro checks - May start ASA pending PO status - NPO Imaging - Repeat MRI 12/03/16: No change in size of left occipital hemorrhage and small thin left subdural hematoma (subacute) An increase in size of acute infarct in L posterior temporal lobe occipital and parietal lobes. Increased white matter edema in R occipital lobe without a diffusion abnormality. (could be metastatic lesions) Vasogenic edema in the right cerebellar hemisphere secondary to the enhancing metastatic lesion identified previously. - MRI/MRA : R cerebral hemisphere - 0.2cm enhancing mass with moderate local edema L occipital lobe - 3.9cm probably subacute infarct vs glioma Bilateral frontal, right temporociipital, brain stem - could be metastes - CT head no contrast (11/27) with encephalomalacia, ct scan reveal hypodensities right cerebellum and bilateral occipital, which were there before compared to CT of the head from 10/11/16. - EEG: b/l slowing waves, no epileptic form wave - 2 COMMUNICATIONS PROGRAM MANAGER (11/27) for blurry vision turned blank stair, which later turned tonic- clonic movements. During COMMUNICATIONS PROGRAM MANAGER, she was responsive to only painful stimuli. Left sided facial droop was experienced. Pt was trasnferred to ICU, now downgraded to remote telemetry. - COMMUNICATIONS PROGRAM MANAGER (11/23) Pt was hypotensive and AMS on 11/23 COMMUNICATIONS PROGRAM MANAGER due to narcotic side effect. Severe anemia, s/p 30 u pRBC Thrombocytopenia s/p plt transfusion Neutropenia - resolved - Hb 8 Neuropathic Pain - Dilaudud 1q1 TENANT RELATIONS COORDINATOR - Hold Durgesic - Per Dr Hendricks, do not add more pain meds now. Maintain at current pain regimen. 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 end-colostomy Susy esophagitis Pathology: Poorly differentiated colorectal adenocarcinoma metasiasis to bowel wall and serosa and one resection margin. 3/5 lymph nodes positive for metastasis - Microstaellite stable (08/13/16). Has ruled out rollins syndrome Sepsis due to C. albicans Fungemia, probably from port-a-cath Bacteremia with methicillin-resistant coagulase negative staph in repeated cx Gram negative bacilli in urine with minor - minor removed (11/24) Nose culture coagulase neg staphylococcus (11/24) - Now off abx - ABX history - s/p mycamine (day 14 since port removal) - Then switch to PO diflucan for another 2 weeks for total of 4 week antifungal tx - Now back on IV mycamine due to no PO - Off daptomycin for bactermeia r/o picc, r/o contamination (/ bottles) - repeated urine cx negative - Hold valganciclovir, no CMV on esophagus ulcer - L picc was placed on 10/31/16 which was not replaced due to coagulopathy and bleeding. Severe hypokalemia Hypernatermia Severe malnutrition, albumin 2.0 Hypomandnesemia Dysphagia - No PO intake - replete as needed - Ensure and PO supplements on hold - tpn Edema - lasix 20q12 - ON HOLD Prophylasix - SCD, protonix IV Consult: Wound care Palliative Cardio - Dr. Busby - sign off Heme Onc - Ashtyn Champagne GI - Dr. Null Nephro - Dr. Griffin/Todd YOUNG - Dr. Avalos Surgery - Dr. Jeffers for wound Surgery - Dr. Mccracken for colostomy ICU - Dr. Centeno IR - Dr. Hackett Opthalomoly = Dr. Greenberg Pain - Dr. Amador Neuro - Dr. Moya s/r/d/w Dr. Hendricks Discharge Exam - Head Exam Head Exam: NORMAL INSPECTION Discharge Plan - Follow Up Plan Condition: CRITICAL Disposition: HOSPICE - MEDICAL FACILITY Instructions: Stroke (DC) Referrals: Stephen Adams MD [Primary Care Provider] -
== END 2016-12-13 16:37 | disposition hospice, inpatient (51) | DRG 581 ==
LOC: ED 10:42 → ERH 14:04 → CCU 16:15 → 3RNO 10-16 19:03 → CCU 11-17 11:42 → 3RNO 11-19 12:04 → CCU 11-24 13:32 → 3RSO 11-26 15:57 → CCU 11-27 20:49 → 3RNO 11-30 16:42
PROVIDERS: ADMIT Family Medicine; ATTEND Family Medicine
PROC: 30233K1 Transfusion of Nonautologous Frozen Plasma into Peripheral Vein, Percutaneous Approach (ICD-10-PCS; 2016-10-12)
PROC: 3E0336Z Introduction of Nutritional Substance into Peripheral Vein, Percutaneous Approach (ICD-10-PCS; 2016-10-17)
PROC: 30233N1 Transfusion of Nonautologous Red Blood Cells into Peripheral Vein, Percutaneous Approach (ICD-10-PCS; 2016-10-18)
PROC: 0DJD8ZZ Inspection of Lower Intestinal Tract, Via Natural or Artificial Opening Endoscopic (ICD-10-PCS; 2016-10-26)
PROC: 0DB58ZX Excision of Esophagus, Via Natural or Artificial Opening Endoscopic, Diagnostic (ICD-10-PCS; 2016-10-26)
PROC: 02HV33Z Insertion of Infusion Device into Superior Vena Cava, Percutaneous Approach (ICD-10-PCS; 2016-10-31)
PROC: 30233R1 Transfusion of Nonautologous Platelets into Peripheral Vein, Percutaneous Approach (ICD-10-PCS; 2016-11-11)
PROC: 0JPT3XZ Removal of Tunneled Vascular Access Device from Trunk Subcutaneous Tissue and Fascia, Percutaneous Approach (ICD-10-PCS; 2016-11-12)
PROC: 0D1M0Z4 Bypass Descending Colon to Cutaneous, Open Approach (ICD-10-PCS; 2016-11-17)
PROC: 0DNW0ZZ Release Peritoneum, Open Approach (ICD-10-PCS; 2016-11-17)
PROC: 0DN80ZZ Release Small Intestine, Open Approach (ICD-10-PCS; 2016-11-17)
PROC: 0DQ80ZZ Repair Small Intestine, Open Approach (ICD-10-PCS; 2016-11-17)
PROC: 5A1935Z Respiratory Ventilation, Less than 24 Consecutive Hours (ICD-10-PCS; 2016-11-17)
PROC: 0DJ08ZZ Inspection of Upper Intestinal Tract, Via Natural or Artificial Opening Endoscopic (ICD-10-PCS; 2016-11-17)
PROC: 0DTN0ZZ Resection of Sigmoid Colon, Open Approach (ICD-10-PCS; principal; 2016-11-17 07:00)
PROC: 0DJ08ZZ Inspection of Upper Intestinal Tract, Via Natural or Artificial Opening Endoscopic (ICD-10-PCS; 2016-11-24)
PROC: 3E0F7GC Introduction of Other Therapeutic Substance into Respiratory Tract, Via Natural or Artificial Opening (ICD-10-PCS; 2016-12-09)
DX: A41.9 Sepsis, unspecified organism (principal); R65.21 Severe sepsis with septic shock; K52.0 Gastroenteritis and colitis due to radiation; N17.9 Acute kidney failure, unspecified; C19 Malignant neoplasm of rectosigmoid junction; C79.51 Secondary malignant neoplasm of bone; C79.31 Secondary malignant neoplasm of brain; I63.9 Cerebral infarction, unspecified; G93.6 Cerebral edema; I61.8 Other nontraumatic intracerebral hemorrhage; G93.40 Encephalopathy, unspecified; E43 Unspecified severe protein-calorie malnutrition; D61.810 Antineoplastic chemotherapy induced pancytopenia; N18.3 Chronic kidney disease, stage 3 (moderate); L89.152 Pressure ulcer of sacral region, stage 2; N39.0 Urinary tract infection, site not specified; E87.0 Hyperosmolality and hypernatremia; E87.4 Mixed disorder of acid-base balance; B37.0 Candidal stomatitis; E87.1 Hypo-osmolality and hyponatremia; E87.6 Hypokalemia; I42.9 Cardiomyopathy, unspecified; C78.01 Secondary malignant neoplasm of right lung; D68.69 Other thrombophilia; D50.0 Iron deficiency anemia secondary to blood loss (chronic); D69.59 Other secondary thrombocytopenia; E86.0 Dehydration; E83.51 Hypocalcemia; D70.3 Neutropenia due to infection; G89.3 Neoplasm related pain (acute) (chronic); G83.4 Cauda equina syndrome; H10.9 Unspecified conjunctivitis; K12.30 Oral mucositis (ulcerative), unspecified; K66.0 Peritoneal adhesions (postprocedural) (postinfection); K22.10 Ulcer of esophagus without bleeding; B96.20 Unspecified Escherichia coli [E. coli] as the cause of diseases classified elsewhere; T45.1X5A Adverse effect of antineoplastic and immunosuppressive drugs, initial encounter; I12.9 Hypertensive chronic kidney disease with stage 1 through stage 4 chronic kidney disease, or unspecified chronic kidney disease; E83.39 Other disorders of phosphorus metabolism; E83.42 Hypomagnesemia; D63.0 Anemia in neoplastic disease; R62.7 Adult failure to thrive; T80.211A Bloodstream infection due to central venous catheter, initial encounter; B37.7 Candidal sepsis; M54.30 Sciatica, unspecified side; R00.0 Tachycardia, unspecified; D70.1 Agranulocytosis secondary to cancer chemotherapy; G40.89 Other seizures; Z66 Do not resuscitate; K21.0 Gastro-esophageal reflux disease with esophagitis; K29.50 Unspecified chronic gastritis without bleeding; K64.4 Residual hemorrhoidal skin tags; F41.9 Anxiety disorder, unspecified; Y84.2 Radiological procedure and radiotherapy as the cause of abnormal reaction of the patient, or of later complication, without mention of misadventure at the time of the procedure; Y84.8 Other medical procedures as the cause of abnormal reaction of the patient, or of later complication, without mention of misadventure at the time of the procedure; Z85.828 Personal history of other malignant neoplasm of skin; Z74.01 Bed confinement status; Z90.49 Acquired absence of other specified parts of digestive tract; Z87.891 Personal history of nicotine dependence

== ENCOUNTER 2016-12-13 16:22 | Inpatient (IN) | payer OTHER ==
[2016-12-13 18:14] VITALS: BMI 23.7
[2016-12-13] MEDS ORDERED: DiphenhydrAMINE 50 mg/ml Inj IVP PRN (18:18)
[2016-12-13] MEDS ORDERED: Albuterol-Ipratrop 3 mg / 0.5 (3 ml) UD IH PRN (18:24)
[2016-12-13] MEDS ORDERED: HYDROmorphone 1 mg/ml PCA 25 ML IV SCH (18:30)
[2016-12-13 20:58] VITALS: RESP 22
[2016-12-13] MEDS ORDERED: levETIRAcetam 1,000 MG in Sodium Chloride 0.9% 100 ML IV SCH (22:00)
--- NOTE | 2016-12-14 19:08 | CP.PCM.PRO ---
Pronouncement of Note - Clinical Findings Physical Exam: No Response Verbal/Painful Stimuli, Absent Peripheral Pulses{ Carotid & Femoral}, Absent Heart & Breath Sounds, No Pupillary Light Reflex, No Corneal Reflex, Pupils Fixed & Dilated, Absence of Vital Signs - Pronouncement Time Time of Pronouncement of : 04:45 - Notifications Pronouncement Notifications: Family Notified (PMD.), Atending Notified (Nurse will .) Senior Technical Analyst Notified: No - Autopsy Autopsy Requested: No - [place]: [id number]
[2016-12-15] MEDS ORDERED: Scopolamine 1.5 mg/24 hr Patch TD SCH (10:00)
== END 2016-12-14 04:25 | DRG 871 ==
LOC: 3RNO 16:22
PROVIDERS: ADMIT Family Medicine; ATTEND Family Medicine
DX: A41.9 Sepsis, unspecified organism (principal); R65.21 Severe sepsis with septic shock; G93.6 Cerebral edema; I61.8 Other nontraumatic intracerebral hemorrhage; I63.9 Cerebral infarction, unspecified; K52.0 Gastroenteritis and colitis due to radiation; G93.40 Encephalopathy, unspecified; E43 Unspecified severe protein-calorie malnutrition; D61.810 Antineoplastic chemotherapy induced pancytopenia; N17.9 Acute kidney failure, unspecified; C19 Malignant neoplasm of rectosigmoid junction; C79.51 Secondary malignant neoplasm of bone; C79.31 Secondary malignant neoplasm of brain; N39.0 Urinary tract infection, site not specified; E87.0 Hyperosmolality and hypernatremia; E87.4 Mixed disorder of acid-base balance; B37.0 Candidal stomatitis; E87.1 Hypo-osmolality and hyponatremia; I42.9 Cardiomyopathy, unspecified; C78.01 Secondary malignant neoplasm of right lung; G83.4 Cauda equina syndrome; N18.3 Chronic kidney disease, stage 3 (moderate); E87.6 Hypokalemia; D50.0 Iron deficiency anemia secondary to blood loss (chronic); D69.59 Other secondary thrombocytopenia; E86.0 Dehydration; D70.3 Neutropenia due to infection; G89.3 Neoplasm related pain (acute) (chronic); Z66 Do not resuscitate; Z51.5 Encounter for palliative care